=== PATIENT | female | born 1950 | race Caucasian/White ===

== ENCOUNTER 2022-12-09 12:55 | Inpatient (IN) ==
[2022-12-09] MEDS ORDERED: SODIUM CHLORIDE 0.9% 500 ML IV STA (13:58)
[2022-12-09] MEDS ORDERED: ONDANSETRON INJ 2 MG/ML 2 ML VIAL IV STA ×2 (13:58→14:22)
[2022-12-09] MEDS ORDERED: MoRPHine SULFATE 4 MG/ML 1 ML CARP\\VIAL IV STA (14:22)
[2022-12-09 14:24] LABS: Basophils # (auto) 0.02 K/uL (0-0.2); Basophils % (auto) 0.2 %; Hematocrit (blood only) 50.8 % (37.0-47.0); Hemoglobin 16.6 g/dl (12.0-16.0); Immature Granulocytes # (auto) 0.04 K/uL (0.01-0.20); Immature Granulocytes % (auto) 0.4 %; Lymphocytes # (auto) 0.86 K/uL (1.2-3.4); Lymphocytes % (auto) 7.8 %; Mean Corpuscular Hemoglobin 29.9 pg (25.0-34.0); Mean Corpuscular Hgb Conc 32.7 g/dL (32.0-36.0); Mean Corpuscular Volume 91.5 fL (80.0-100.0); Mean Platelet Volume 9.9 fL (9.4-12.4); Monocytes # (auto) 0.37 K/uL (0.11-0.59); Monocytes % (auto) 3.3 %; Neutrophils # (auto) 9.79 K/uL (1.40-6.50); Neutrophils % (auto) 88.3 %; Platelet Count 344 K/uL (130-400); RDW Coefficient of Variation 13.2 % (11.5-14.5); RDW Standard Deviation 44.7 fL (36.4-46.3); Red Blood Count 5.55 M/uL (4.20-5.40); White Blood Count 11.08 K/ul (4.8-10.8)
[2022-12-09 14:25] LABS: BUN Creatinine Ratio 16.9 (10-20); Calcium 8.8 mg/dl (8.5-10.1); Creatinine Clr Calc Pharmacy 64.5 ml/min; Est GFR (African American) 74.5 ml/min; Est GFR (Non-African American) 64.3 ml/min; Potassium 4.1 mmol/L (3.5-5.1)
[2022-12-09] MEDS ORDERED: OPTIRAY 350 100ml IV ONE (15:12)
[2022-12-09 15:18] LABS: Albumin Globulin Ratio 0.9 (0.9-2); Albumin Level 3.9 gm/dl (3.4-5.0); Bilirubin,Total 6.2 mg/dl (0.2-1.0); Globulin 4.4 gm/dl (2.5-4.0); Total Protein 8.3 gm/dl (6.0-8.3)
--- NOTE | 2022-12-09 15:53 | CT Scan Report ---
CT abd pelvis IV con only, CT lumbar spine w con CLINICAL HISTORY: Abd/back pain TECHNIQUE: Helical axial images of the abdomen and pelvis were obtained and displayed. Automated dose lowering techniques and/or adjustment according to patient size were utilized for this exam. Dedicat ed images of the lumbar spine were obtained. This exam was performed with intravenous contrast. CT DOSE: 735.87 mGy.cm COMPARISON: None available at the time of this dictation. FINDINGS: Lower chest: Bibasilar atelectasis versus scarring is seen. Liver: Unremarkable. No focal lesions are seen. Gallbladder and biliary tree: The gallbladder is distended. Gallbladder wall measures up to 3 mm. No intra- or extrahepatic biliary ductal dilation. Pancreas: Prominent peripancreatic stranding is seen. No abnormal enhancement is seen to suggest necr osis. No discrete fluid collections are seen. Spleen: Unremarkable. Adrenals: Unremarkable. Kidneys and ureters: Lobular appearance of the kidneys. Nonobstructive stones are seen bilaterally. S ubcentimeter hypodensities in the kidneys may represent cysts but are too small to characterize. Bladder: Unremarkable. Reproductive organs: Unremarkable. Bowel: The appendix is normal. A hiatal hernia is seen. Lymph nodes Retroperitoneal: Unremarkable. Pelvic: Unremarkable. Mesenteric: Unremarkable. Peritoneum: Prominent fat stranding and a small amount of peritoneal fluid is seen in the upper abdom en. Vessels: Atherosclerotic calcifications are seen. Abdominal wall: Unremarkable. Bones: Mild degenerative changes without evidence of acute fracture. IMPRESSION: 1. Peripancreatic fat stranding is seen concerning for pancreatitis. 2. Prominence of the gallbladder may be reactive or less likely may represent acute cholecystitis. 3. Nonobstructive nephrolithiasis. ACT 112: Negative or not required by law. Electronically signed by: Yury Zamora M.D. 12/09/2022 3:50 PM
[2022-12-09] MEDS ORDERED: HYDROmorphone INJ 0.5 MG/0.5 ML SYR IV STA ×2 (16:06→18:30)
--- NOTE | 2022-12-09 16:12 | Emergency Department Note ---
ED Provider Note History of Present Illness Chief Complaint: GI Assessment Stated Complaint: abdomen pain; low back pain Time Seen by Provider: 12/09/22 14:10 72-year-old female who presents to the emergency department with complaint of a bdomen and lower back pain. The patient reports that she developed the symptoms, along with nausea and vomiting yesterday morning. She awoke this morning with loose stools as well. She reports the pain is progressively worsening, And is now constant in nature. She denies any fever, chills or di aphoresis. She denies any prior GI history. Patient also denies any chest pain or shortness of breath. She does have some discomfort with deep breathing. The patient currently rates her discomfort a 7 out of 10. Home Medications Medication Instructions Recorded Confirmed Type losartan 50 mg tablet 50 mg PO DAILY 12/09/22 12/09/22 History methimazole 5 mg tablet 5 mg PO DAILY 12/09/22 12/09/22 History sertraline 50 mg tablet 50 mg PO DAILY 12/09/22 12/09/22 History solifenacin 10 mg tablet 10 mg PO DAILY 12/09/22 12/09/22 History Allergies Allergy/AdvReac Type Severity Reaction Status Date / Time No Known Allergies Allergy Unverified 04/26/12 15:09 Past Med/Surg History Medical History Depression History of claustrophobia Hypertension Multiple sclerosis Surgical History No significant past surgical history Social History Smoking Status: Former smoker Preferred Language: Honduran marital status: Single current occupational status: retired Feels Safe at Home: Yes Physical Exam Vital Signs Vital Signs - 24 hr 12/09/22 13:14 12/09/22 13:22 12/09/22 13:30 Temperature 36.6 C Temperature Source Oral Pulse Rate 108 H 106 H Respiratory Rate 18 Respiratory Effort / Characteristics Non-Labored Spontaneous Respiratory Depth Normal Respiratory Pattern Regular Blood Pressure 177/101 H 169/104 H Blood Pressure Mean 126 125 Pulse Oximetry 95 Oxygen Delivery Method Room Air Sepsis Recent Fever Within 48 Hours No Sepsis New/Unexplained Change in Mental Status No Sepsis Action Taken by Nursing No Action Required 12/09/22 14:00 12/09/22 14:42 12/09/22 15:00 Temperature Temperature Source Pulse Rate 110 H Respiratory Rate 19 Respiratory Effort / Characteristics Respiratory Depth Respiratory Pattern Blood Pressure 208/154 H 176/113 H 207/116 H Blood Pressure Mean 172 134 146 Pulse Oximetry Oxygen Delivery Method Sepsis Recent Fever Within 48 Hours Sepsis New/Unexplained Change in Mental Status Sepsis Action Taken by Nursing 12/09/22 15:23 12/09/22 16:30 12/09/22 19:54 Temperature Temperature Source Pulse Rate 108 H 110 H 109 H Respiratory Rate 23 20 Respiratory Effort / Characteristics Respiratory Depth Respiratory Pattern Blood Pressure 185/93 H 202/110 H Blood Pressure Mean 123 140 Pulse Oximetry 95 93 Oxygen Delivery Method Room Air Room Air Sepsis Recent Fever Within 48 Hours Sepsis New/Unexplained Change in Mental Status Sepsis Action Taken by Nursing CONSTITUTIONAL: Healthy and well nourished. Patient appears in moderate discomfort. HEENT: No scleral icterus or conjunctival injection/pallor. NECK: Full active range of motion without discomfort. LYMPHATICS: No cervical chain adenopathy. RESPIRATORY: Clear to auscultation bilaterally with no wheezing, crackles, rhonchi or stridor. CARDIOVASCULAR: Regular rate and rhythm with no murmurs, rubs or gallops. GASTROINTESTINAL: Bowel sounds present in all quadrants. Examination shows diffuse abdominal tenderness to palpation with a mildly positive Waterman sign. Negative CVA tenderness. Negative McBurney's point tenderness or Rovsing sign. No abdominal rigidity, guarding or rebound. MUSCULOSKELETAL: Full range of motion of all major joints without discomfort. INTEGUMENTARY: No rash or other significant dermatologic conditions noted. HEMATOLOGIC: No ecchymosis or petechiae. PSYCHIATRIC: Positive affect. NEUROLOGIC: No focal neurologic deficits noted. Course Course Patient history and physical exam were performed. Nurses notes were reviewed. Vital signs were reviewed, showing an elevated blood pressure. IV access was established, and labs were drawn. The patient was initially administered IV morphine and Zofran, and hydrated with a liter of normal saline. Review of labs shows a mild leukocytosis. CMP shows elevated total bilirubin, LFTs, alkaline phosphatase and lipase. Random glucose was also elevated at 257. CT with IV contrast of the abdomen and pelvis, as well as the lumbar spine, showed peripancreatic stranding, consistent with pancreatitis. There also appears to be some prominence of the gallbladder with gallbladder wall thickening, and no obvious, bile duct dilatation. Findings were discussed with the patient and family, as well as Dr. Rico, ED attending physician. Dr. Rico requested administration of IV Zosyn until exact etiology of the patient's condition is determined. An order was placed for the IV Zosyn. I then discussed the case further with the [facility] hospitalist, who requested that I also contacted and discussed the case with general surgery on-call. I then called and spoke with Dr. Whittaker, general surgeon, who did evaluate the patient and does not feel that urgent cholecystectomy is needed at this time, and will follow the patient. He suspects that gastroenterology consultation and ERCP would be warranted. [facility] Whittaker's recommendations, and indicated that they would contact gastroenterology for further consultation. [facility], I was advised by nursing staff that the patient had a brief episode of what appeared to be t rigeminy with pauses that only lasted for a few seconds. I was in another room performing a procedure, and after completion, did have our monitor motor lodge clerk pull up her ECG during that time period. No trigeminy was noted, but did have a heart rate of up to 166 bpm. An ECG was performed, showing a sinus tachycardia of 109 bpm without any other concerning findings. I did order a troponin, and contact ed the hospitalist regarding this episode. They will follow serial ECGs and troponins. I did review her initial troponin level as well, and it was normal. The patient did not have any worsening pain prior to transfer to her admission bed. Administered Medications Discontinued Medications Hydromorphone HCl (Hydromorphone Inj 0.5 Mg/0.5 Ml Syr) 0.5 mg IV NOW STA Stop: 12/09/22 16:07 Last Admin: 12/09/22 16:24 Dose: 0.5 mg Documented By: SEBASTIEN Hydromorphone HCl (Hydromorphone Inj 0.5 Mg/0.5 Ml Syr) 0.5 mg IV NOW STA Stop: 12/09/22 18:31 Last Admin: 12/09/22 18:35 Dose: 0.5 mg Documented By: PATTERN GRADER SUPERVISOR Sodium Chloride (Nss) 500 mls @ 999 mls/hr IV .Q31M STA Stop: 12/09/22 14:28 Last Infusion: 12/09/22 16:01 Dose: 0 mls/hr Documented By: Admin: 12/09/22 14:31 Dose: 999 mls/hr Documented By: BETHANY Piperacillin Sod/Tazobactam Sod (Zosyn) 4.5 gm in 120 mls @ 240 mls/hr IV NOW ONE Stop: 12/09/22 18:48 Last Infusion: 12/09/22 19:30 Dose: 0 mls/hr Documented By: Admin: 12/09/22 18:35 Dose: 240 mls/hr Documented By: GEORGE Ioversol (Optiray 350 100ml) 83 ml IV ONCE ONE Stop: 12/09/22 15:13 Last Admin: 12/09/22 15:15 Dose: 83 ml Documented By: BRYAN Morphine Sulfate (Morphine Sulfate 4 Mg/Ml 1 Ml Carp\Vial) 4 mg IV NOW STA Stop: 12/09/22 14:23 Last Admin: 12/09/22 14:29 Dose: 4 mg Documented By: BETHANY Ondansetron HCl (Ondansetron Inj 2 Mg/Ml 2 Ml Vial) 4 mg IV NOW STA Stop: 12/09/22 13:59 Last Admin: 12/09/22 14:29 Dose: Not Given Documented By: BETHANY Ondansetron HCl (Ondansetron Inj 2 Mg/Ml 2 Ml Vial) 4 mg IV NOW STA Stop: 12/09/22 14:23 Last Admin: 12/09/22 14:29 Dose: 4 mg Documented By: BETHANY Medical Decision Making Medical Records Attestation: I reviewed the patient's medical records. Home Medications was personally reviewed by me Laboratory Data Attestation: I reviewed the patient's lab results. 12/09/22 13:15 12/09/22 13:15 Lab Results 12/09/22 12/09/22 12/09/22 Range/Units 13:15 13:15 16:30 WBC 11.08 H (4.8-10.8) K/ul RBC 5.55 H (4.20-5.40) M/uL Hgb 16.6 H (12.0-16.0) g/dl Hct 50.8 H (37.0-47.0) % MCV 91.5 (80.0-100.0) fL MCH 29.9 (25.0-34.0) pg MCHC 32.7 (32.0-36.0) g/dL RDW Std Deviation 44.7 (36.4-46.3) fL RDW Coeff of Mandy 13.2 (11.5-14.5) % Plt Count 344 (130-400) K/uL MPV 9.9 (9.4-12.4) fL Immature Gran % (Auto) 0.4 % Neut % (Auto) 88.3 % Lymph % (Auto) 7.8 % [place] % (Auto) 3.3 % Eos % (Auto) 0.0 % Baso % (Auto) 0.2 % Neut # (Auto) 9.79 H (1.40-6.50) K/uL Lymph # (Auto) 0.86 L (1.2-3.4) K/uL [place] # (Auto) 0.37 (0.11-0.59) K/uL Eos # (Auto) 0.00 (0-0.50) K/uL Baso # (Auto) 0.02 (0-0.2) K/uL Immature Gran # (Auto) 0.04 (0.01-0.20) K/uL Sodium 137 (136-145) mmol/L Potassium 4.1 (3.5-5.1) mmol/L Chloride 102 (98-107) mmol/L Carbon Dioxide 24 (21-32) mmol/L Anion Gap 11 (3-11) BUN 15 (6-23) mg/dl Creatinine 0.89 (0.6-1.2) mg/dl Est Cr Clr Drug Dosing 64.5 ml/min Est GFR ( Amer) 74.5 ml/min Est GFR (Non-Af Amer) 64.3 ml/min BUN/Creatinine Ratio 16.9 (10-20) Glucose 257 H (70-99(Fasting)) mg/dl Calcium 8.8 (8.5-10.1) mg/dl Total Bilirubin 6.2 H (0.2-1.0) mg/dl AST 313 H (13-39) U/L ALT 536 H (7-52) U/L Alkaline Phosphatase 231 H (34-104) U/L Troponin I High Sens 12.4 (0-14) pg/ml Total Protein 8.3 (6.0-8.3) gm/dl Albumin 3.9 (3.4-5.0) gm/dl Globulin 4.4 H (2.5-4.0) gm/dl Albumin/Globulin Ratio 0.9 (0.9-2) Lipase 4003 H (11-82) U/L SARS-CoV-2, RNA, NAAT NEGATIVE (NEGATIVE) Imaging Data Attestation: I personally reviewed and interpreted this imaging study as follows: My Impression: My interpretation of a a CT with IV contrast of the abdomen and pelvis shows peripancreatic stranding, consistent with pancreatitis. Patient also does have prominence of the gallbladder without obvious, bile duct dilatation. Radiologist does measure gallbladder wall up to 3 mm in size. I do not see evidence for appendicitis, diverticulitis, bowel obstruction or free air. My interpretation of a CT with IV contrast of the lumbar spine does not show any obvious fractures or subluxations. Radiologist reports were also reviewed with concurrence. Radiologist's Impression: Abdomen/Pelvis CT 12/09/22 14:22 CT abd pelvis IV con only, CT lumbar spine w con CLINICAL HISTORY: Abd/back pain TECHNIQUE: Helical axial images of the abdomen and pelvis were obtained and displayed. Automated dose lowering techniques and/or adjustment according to patient size were utilized for this exam. Dedicated images of the lumbar spine were obtained. This exam was performed with intravenous contrast. CT DOSE: 735.87 mGy.cm COMPARISON: None available at the time of this dictation. FINDINGS: Lower chest: Bibasilar atelectasis versus scarring is seen. Liver: Unremarkable. No focal lesions are seen. Gallbladder and biliary tree: The gallbladder is distended. Gallbladder wall measures up to 3 mm. No intra- or extrahepatic biliary ductal dilation. Pancreas: Prominent peripancreatic stranding is seen. No abnormal enhancement is seen to suggest necrosis. No discrete fluid collections are seen. Spleen: Unremarkable. Adrenals: Unremarkable. Kidneys and ureters: Lobular appearance of the kidneys. Nonobstructive stones are seen bilaterally. Subcentimeter hypodensities in the kidneys may represent cysts but are too small to characterize. Bladder: Unremarkable. Reproductive organs: Unremarkable. Bowel: The appendix is normal. A hiatal hernia is seen. Lymph nodes Retroperitoneal: Unremarkable. Pelvic: Unremarkable. Mesenteric: Unremarkable. Peritoneum: Prominent fat stranding and a small amount of peritoneal fluid is seen in the upper abdomen. Vessels: Atherosclerotic calcifications are seen. Abdominal wall: Unremarkable. Bones: Mild degenerative changes without evidence of acute fracture. IMPRESSION: 1. Peripancreatic fat stranding is seen concerning for pancreatitis. 2. Prominence of the gallbladder may be reactive or less likely may represent acute cholecystitis. 3. Nonobstructive nephrolithiasis. ACT 112: Negative or not required by law. Electronically signed by: Yury Zamora M.D. 12/09/2022 3:[address] 12/09/22 14:42 CT abd pelvis IV con only, CT lumbar spine w con CLINICAL HISTORY: Abd/back pain TECHNIQUE: Helical axial images of the abdomen and pelvis were obtained and displayed. Automated dose lowering techniques and/or adjustment according to patient size were utilized for this exam. Dedicated images of the lumbar spine were obtained. This exam was performed with intravenous contrast. CT DOSE: 735.87 mGy.cm COMPARISON: None available at the time of this dictation. FINDINGS: Lower chest: Bibasilar atelectasis versus scarring is seen. Liver: Unremarkable. No focal lesions are seen. Gallbladder and biliary tree: The gallbladder is distended. Gallbladder wall measures up to 3 mm. No intra- or extrahepatic biliary ductal dilation. Pancreas: Prominent peripancreatic stranding is seen. No abnormal enhancement is seen to suggest necrosis. No discrete fluid collections are seen. Spleen: Unremarkable. Adrenals: Unremarkable. Kidneys and ureters: Lobular appearance of the kidneys. Nonobstructive stones are seen bilaterally. Subcentimeter hypodensities in the kidneys may represent cysts but are too small to characterize. Bladder: Unremarkable. Reproductive organs: Unremarkable. Bowel: The appendix is normal. A hiatal hernia is seen. Lymph nodes Retroperitoneal: Unremarkable. Pelvic: Unremarkable. Mesenteric: Unremarkable. Peritoneum: Prominent fat stranding and a small amount of peritoneal fluid is seen in the upper abdomen. Vessels: Atherosclerotic calcifications are seen. Abdominal wall: Unremarkable. Bones: Mild degenerative changes without evidence of acute fracture. IMPRESSION: 1. Peripancreatic fat stranding is seen concerning for pancreatitis. 2. Prominence of the gallbladder may be reactive or less likely may represent acute cholecystitis. 3. Nonobstructive nephrolithiasis. ACT 112: Negative or not required by law. Electronically signed by: Yury Zamora M.D. 12/09/2022 3:50 PM ECG Data Attestation: I personally reviewed and interpreted this ECG as follows: Indication: + abdominal pain and + chest pain Rate (beats per minute): 109 Rhythm: + sinus tachycardia ECG Intervals/blocks: + Normal QRS, + Normal QT and + Normal KS ECG ST segments: + Normal ST segments Comparison ECG Date: from (04/05/2022) Change: the following changes noted (PVCs no longer present from prior ECG) MDM Narrative Cardiac monitoring: An order was placed for continuous cardiac monitoring. The monitor shows a rate of 109 bpm with a normal sinus rhythm. monitoring coordinator his tory was reviewed throughout the evaluation, and no dysrhythmias were noted. See ED course for further details of today's visit. The patient presents the emergency department with complaint of abdominal pain, nausea, vomiting and loose stools for the past [address] examination today does show evidence for pancreatitis. She also has gallbladder prominence without any pericholecystic stranding. Laboratory studies does show elevated total bilirubin, LFTs, alkaline phosphatase and lipase. Although I do feel that the patient's major condition is pancreatitis, I am concerned for possible common bile duct stone, and will likely require ERCP for further evaluation. The patient is afebrile and does not have any leukocytosis or abnormal laboratory studies to suggest sepsis. Patient did have a cardiac dysrhythmia with some chest discomfort that initially is not suggestive of infarct, ischemia or other acute cardiac event. Serial ECGs and isoenzymes will be followed. The patient was also evaluated by general surgery who does not feel that emergent laparoscopic cholecystectomy is warranted. GI consultation will also be performed for probable ERCP procedure. Impression Acute pancreatitis, Generalized abdominal pain, Nausea and vomiting, Multiple sclerosis Discharge Plan Visit Data Chief Complaint: GI Assessment Stated Complaint: abdomen pain; low back pain ED Provider: Aram Rico ED Midlevel Provider: Guilherme Lopez Discharge Problem: Acute pancreatitis, Generalized abdominal pain, Nausea and vomiting, Multiple sclerosis Forms Stand Alone Forms: [employer] Prescriptions Prescriptions: No Action sertraline 50 mg tablet 50 mg PO DAILY losartan 50 mg tablet 50 mg PO DAILY methimazole 5 mg tablet 5 mg PO DAILY solifenacin 10 mg tablet 10 mg PO DAILY Referrals Referrals: Valdez Whitlock MD [Primary Care Provider] -
--- NOTE | 2022-12-09 18:16 | History & Physical Report ---
Date of Service December 09, 2022 Assessment & Plan (1) Acute pancreatitis: (2) Nausea and vomiting: Plan: Present on admission with abdominal pain that radiating to back associating with vomiting and nausea CT abd/pel showed peripancreatic fat stranding is seen concerning for pancreatitis. Prominence of the gallbladder may be reactive or less likely may represent acute cholecystitis. Lipase above 400's on admission Continue supportive care with IVF and pain management Will keep NPO for bowel rest Continue pain control Will consult gastro Transaminitis Elevated LFT with AST 313 and ALT 536 Possible related to gallstone related pancreatitis Will get an abdominal U/S Pt said that she is claustrophobic and she will not be able to go for MRCP Will consult GI for eval for ERCP Acute Cholecystitis CT abd/pelvis showed prominence of the gallbladder may be reactive or less likely may represent acute cholecystitis. received IV Zosyn in the ER, Will continue IV Zosyn Will get a Liver U/S Surgery on board Will consider laparoscopic cholecystectomy HTN She did not take her BP med today Will continue Losartan Will add clonidine PRN for elevate BP Continue monitor BP Hyperthyroidism Continue Methimazole Anxiety Continue Sertraline Code status full code DVT px on SCD in case pt will need surgical intervention A total of 70 minutes was spent with greater than 50% of that time personally viewing all current laboratory work and diagnostic imaging studies obtained in the ED. Additionally, I was able to view the patients past medication reconciliation and history with direct visualization in the patients chart.I discussed with daughter at bedside. Included in the time above, a portion of that time was spent assessing the patient while discussing and collaborating with specialists, if necessary, and making medical decision making on treatment plan. History of Present Illness Chief Complaint: Abdominal pain, Back pain Nausea and vomiting Primary Care Provider: Valdez Whitlock MD 72-year-old female with MPH of obesity, HTN, Anxiety presents to the emergency department with complaint of abdomen and lower back pain. Pt said that her symptoms started this morning associated with nausea and vomiting. She said that she had 2 episodes of vomiting mucus like. She said that she had loose morning stools as well. She said that her pain is mostly in her back with intensity 8 out 10. She denies any alcohol used or similar pain in the past. She denies any fever, chills, palpitation, SOB or diaphoresis. Allergies Allergy/AdvReac Type Severity Reaction Status Date / Time No Known Allergies Allergy Unverified 04/26/12 15:09 Home Medications Medication Instructions Recorded Confirmed Type losartan 50 mg tablet 50 mg PO DAILY 12/09/22 12/09/22 History methimazole 5 mg tablet 5 mg PO DAILY 12/09/22 12/09/22 History sertraline 50 mg tablet 50 mg PO DAILY 12/09/22 12/09/22 History solifenacin 10 mg tablet 10 mg PO DAILY 12/09/22 12/09/22 History Past Med/Surg History Medical History Depression History of claustrophobia Hypertension Multiple sclerosis Surgical History No significant past surgical history Social History Smoking Status: Former smoker Second Hand Exposure: No; Hx Alcohol Use: No Hx Substance Use: No Preferred Language: Spanish Communication Ability: Effective 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 Required: No Beliefs That Will Affect Care: None marital status: Single Current Living Situation: Significant Other current occupational status: retired Feels Safe at Home: Yes Assistive Devices: Glasses and Walker Review of Systems Review of Systems: General- No acute distress Head- atraumatic Eyes- PERRL, EOMI, ENT- oropharynx clear Neck- supple, no JVD Lungs- clear to auscultation Heart- regular rhythm; no murmur Abdomen- normal bowel sounds, soft, +tender Extremities- no calf tenderness Neuro- alert, oriented x 3; PERRL, EOMI; no facial palsy; no dysarthria Skin- warm & dry Results & Data Results & Data ([facility]) Vital Signs (Past 12 Hours) Vital Signs Temp Pulse Resp BP Pulse Ox O2 Del Method 12/09/22 16:30 110 H 20 202/110 H 93 Room Air 12/09/22 15:23 108 H 23 185/93 H 95 Room Air 12/09/22 15:00 110 H 19 207/116 H 12/09/22 14:42 176/113 H 12/09/22 14:00 208/154 H 12/09/22 13:30 169/104 H 12/09/22 13:22 36.6 C 106 H 18 177/101 H 95 Room Air 12/09/22 13:14 108 H Diagnostic Findings Laboratory Results WBC 11.08 K/ul (4.8-10.8) H 12/09/22 13:15 RBC 5.55 M/uL (4.20-5.40) H 12/09/22 13:15 Hgb 16.6 g/dl (12.0-16.0) H 12/09/22 13:15 Hct 50.8 % (37.0-47.0) H 12/09/22 13:15 MCV 91.5 fL (80.0-100.0) 12/09/22 13:15 MCH 29.9 pg (25.0-34.0) 12/09/22 13:15 MCHC 32.7 g/dL (32.0-36.0) 12/09/22 13:15 RDW Std Deviation 44.7 fL (36.4-46.3) 12/09/22 13:15 RDW Coeff of Mandy 13.2 % (11.5-14.5) 12/09/22 13:15 Plt Count 344 K/uL (130-400) 12/09/22 13:15 MPV 9.9 fL (9.4-12.4) 12/09/22 13:15 Immature Gran % (Auto) 0.4 % 12/09/22 13:15 Neut % (Auto) 88.3 % 12/09/22 13:15 Lymph % (Auto) 7.8 % 12/09/22 13:15 Tucker % (Auto) 3.3 % 12/09/22 13:15 Eos % (Auto) 0.0 % 12/09/22 13:15 Baso % (Auto) 0.2 % 12/09/22 13:15 Neut # (Auto) 9.79 K/uL (1.40-6.50) H 12/09/22 13:15 Lymph # (Auto) 0.86 K/uL (1.2-3.4) L 12/09/22 13:15 Tucker # (Auto) 0.37 K/uL (0.11-0.59) 12/09/22 13:15 Eos # (Auto) 0.00 K/uL (0-0.50) 12/09/22 13:15 Baso # (Auto) 0.02 K/uL (0-0.2) 12/09/22 13:15 Immature Gran # (Auto) 0.04 K/uL (0.01-0.20) 12/09/22 13:15 Sodium 137 mmol/L (136-145) 12/09/22 13:15 Potassium 4.1 mmol/L (3.5-5.1) 12/09/22 13:15 Chloride 102 mmol/L (98-107) 12/09/22 13:15 Carbon Dioxide 24 mmol/L (21-32) 12/09/22 13:15 Anion Gap 11 (3-11) 12/09/22 13:15 BUN 15 mg/dl (6-23) 12/09/22 13:15 Creatinine 0.89 mg/dl (0.6-1.2) 12/09/22 13:15 Est Cr Clr Drug Dosing 64.5 ml/min 12/09/22 13:15 Est GFR ( Amer) 74.5 ml/min 12/09/22 13:15 Est GFR (Non-Af Amer) 64.3 ml/min 12/09/22 13:15 BUN/Creatinine Ratio 16.9 (10-20) 12/09/22 13:15 Glucose 257 mg/dl (70-99(Fasting)) H 12/09/22 13:15 POC Glucose 206 mg/dl (70-99) H 12/09/22 21:46 Calcium 8.8 mg/dl (8.5-10.1) 12/09/22 13:15 Total Bilirubin 6.2 mg/dl (0.2-1.0) H 12/09/22 13:15 AST 313 U/L (13-39) H 12/09/22 13:15 ALT 536 U/L (7-52) H 12/09/22 13:15 Alkaline Phosphatase 231 U/L (34-104) H 12/09/22 13:15 Troponin I High Sens 12.4 pg/ml (0-14) 12/09/22 13:15 Total Protein 8.3 gm/dl (6.0-8.3) 12/09/22 13:15 Albumin 3.9 gm/dl (3.4-5.0) 12/09/22 13:15 Globulin 4.4 gm/dl (2.5-4.0) H 12/09/22 13:15 Albumin/Globulin Ratio 0.9 (0.9-2) 12/09/22 13:15 Lipase 4003 U/L (11-82) H 12/09/22 13:15 Urine Color Dark Yellow 12/09/22 20:32 Urine Appearance Clear (Clear) 12/09/22 20:32 Urine pH 5.0 (4.5-7.5) 12/09/22 20:32 Ur Specific Rose > 1.045 (1.000-1.030) H 12/09/22 20:32 Urine Protein Trace (Negative) H 12/09/22 20:32 Urine Glucose (UA) Trace (Negative) H 12/09/22 20:32 Urine Ketones 1+ (Negative) H 12/09/22 20:32 Urine Blood Negative (Negative) 12/09/22 20:32 Urine Nitrite Negative (Negative) 12/09/22 20:32 Urine Bilirubin 2+ (Negative) H 12/09/22 20:32 Urine Urobilinogen Negative (Negative) 12/09/22 20:32 Ur Leukocyte Esterase Negative (Negative) 12/09/22 20:32 Urine WBC (Auto) 1-5 /hpf (0-5) 12/09/22 20:32 Urine RBC (Auto) 0-4 /hpf (0-4) 12/09/22 20:32 U Hyaline Cast (Auto) 1-5 /lpf (0-5) 12/09/22 20:32 U Epithel Cells (Auto) 10-20 /lpf (0-5) H 12/09/22 20:32 Urine Bacteria (Auto) Negative (Negative) 12/09/22 20:32 SARS-CoV-2, RNA, NAAT NEGATIVE (NEGATIVE) 12/09/22 16:30 Impressions Abdomen/Pelvis CT 12/09/22 14:22 CT abd pelvis IV con only, CT lumbar spine w con CLINICAL HISTORY: Abd/back pain TECHNIQUE: Helical axial images of the abdomen and pelvis were obtained and displayed. Automated dose lowering techniques and/or adjustment according to patient size were utilized for this exam. Dedicated images of the lumbar spine were obtained. This exam was performed with intravenous contrast. CT DOSE: 735.87 mGy.cm COMPARISON: None available at the time of this dictation. FINDINGS: Lower chest: Bibasilar atelectasis versus scarring is seen. Liver: Unremarkable. No focal lesions are seen. Gallbladder and biliary tree: The gallbladder is distended. Gallbladder wall measures up to 3 mm. No intra- or extrahepatic biliary ductal dilation. Pancreas: Prominent peripancreatic stranding is seen. No abnormal enhancement is seen to suggest necrosis. No discrete fluid collections are seen. Spleen: Unremarkable. Adrenals: Unremarkable. Kidneys and ureters: Lobular appearance of the kidneys. Nonobstructive stones are seen bilaterally. Subcentimeter hypodensities in the kidneys may represent cysts but are too small to characterize. Bladder: Unremarkable. Reproductive organs: Unremarkable. Bowel: The appendix is normal. A hiatal hernia is seen. Lymph nodes Retroperitoneal: Unremarkable. Pelvic: Unremarkable. Mesenteric: Unremarkable. Peritoneum: Prominent fat stranding and a small amount of peritoneal fluid is seen in the upper abdomen. Vessels: Atherosclerotic calcifications are seen. Abdominal wall: Unremarkable. Bones: Mild degenerative changes without evidence of acute fracture. IMPRESSION: 1. Peripancreatic fat stranding is seen concerning for pancreatitis. 2. Prominence of the gallbladder may be reactive or less likely may represent acute cholecystitis. 3. Nonobstructive nephrolithiasis. ACT 112: Negative or not required by law. Electronically signed by: Yury Zamora M.D. 12/09/2022 3:[address] 12/09/22 14:42 CT abd pelvis IV con only, CT lumbar spine w con CLINICAL HISTORY: Abd/back pain TECHNIQUE: Helical axial images of the abdomen and pelvis were obtained and displayed. Automated dose lowering techniques and/or adjustment according to patient size were utilized for this exam. Dedicated images of the lumbar spine were obtained. This exam was performed with intravenous contrast. CT DOSE: 735.87 mGy.cm COMPARISON: None available at the time of this dictation. FINDINGS: Lower chest: Bibasilar atelectasis versus scarring is seen. Liver: Unremarkable. No focal lesions are seen. Gallbladder and biliary tree: The gallbladder is distended. Gallbladder wall measures up to 3 mm. No intra- or extrahepatic biliary ductal dilation. Pancreas: Prominent peripancreatic stranding is seen. No abnormal enhancement is seen to suggest necrosis. No discrete fluid collections are seen. Spleen: Unremarkable. Adrenals: Unremarkable. Kidneys and ureters: Lobular appearance of the kidneys. Nonobstructive stones are seen bilaterally. Subcentimeter hypodensities in the kidneys may represent cysts but are too small to characterize. Bladder: Unremarkable. Reproductive organs: Unremarkable. Bowel: The appendix is normal. A hiatal hernia is seen. Lymph nodes Retroperitoneal: Unremarkable. Pelvic: Unremarkable. Mesenteric: Unremarkable. Peritoneum: Prominent fat stranding and a small amount of peritoneal fluid is seen in the upper abdomen. Vessels: Atherosclerotic calcifications are seen. Abdominal wall: Unremarkable. Bones: Mild degenerative changes without evidence of acute fracture. IMPRESSION: 1. Peripancreatic fat stranding is seen concerning for pancreatitis. 2. Prominence of the gallbladder may be reactive or less likely may represent acute cholecystitis. 3. Nonobstructive nephrolithiasis. ACT 112: Negative or not required by law. Electronically signed by: Yury Zamora M.D. 12/09/2022 3:50 PM (1) Acute pancreatitis Acute pancreatitis complication: unspecified Pancreatitis type: unspecified pancreatitis type Qualified Code(s): K85.90 - Acute pancreatitis without nec rosis or infection, unspecified (2) Nausea and vomiting Vomiting type: unspecified Qualified Code(s): R11.2 - Nausea with vomiting, unspecified
--- NOTE | 2022-12-09 18:16 | Surgery Consultation ---
Date of Consultation December 09, 2022 Assessment & Plan (1) Pancreatitis: With patient's elevated liver function studies it may be gallstone related pancreatitis GI has been consulted and she will most likely require an ERCP We may consider laparoscopic cholecystectomy at some point I will follow for now History of Present Illness History of Present Illness 72-year-old female presenting the emergency room with abdominal pain and noted with very high liver function studies and evidence of pancreatitis She underwent CAT scan showing acute pancreatitis with a distended gallbladder Her total bilirubin is 6.2 with elevated AST ALT and a lipase of 4003 Allergies Allergy/AdvReac Type Severity Reaction Status Date / Time No Known Allergies Allergy Unverified 04/26/12 15:09 Home Medications Medication Instructions Recorded Confirmed Type losartan 50 mg tablet 50 mg PO DAILY 12/09/22 12/09/22 History methimazole 5 mg tablet 5 mg PO DAILY 12/09/22 12/09/22 History sertraline 50 mg tablet 50 mg PO DAILY 12/09/22 12/09/22 History solifenacin 10 mg tablet 10 mg PO DAILY 12/09/22 12/09/22 History Patient History Medical History (Updated 12/09/22 @ 18:15 by Mark Whittaker MD, FACS) Depression History of claustrophobia Hypertension Multiple sclerosis Surgical History (Updated 12/09/22 @ 16:10 by Guilherme Lopez) No significant past surgical history Social History (Updated 12/09/22 @ 16:11 by Guilherme Lopez) Smoking Status: Former smoker Preferred Language: Surinamese marital status: Single current occupational status: retired Feels Safe at Home: Yes Review of Systems Review of Systems: All systems reviewed & are unremarkable except as noted in HPI & below Physical Exam Physical Exam: Patient is in her ER bed in no distress but uncomfortable Constitutional: well developed and well nourished; no acute distress Eyes: sclerae not anicteric Respiratory: normal respiratory effort; no respiratory distress Cardiovascular: Rate/Rhythm: + tachycardic Gastrointestinal (Abdomen): Inspection/Auscultation: abdomen not distended Musculoskeletal: Head/Neck/Chest: head atraumatic Skin: no rashes, warm and dry Neurologic: awake Psychiatric: Orientation: alert Results & Data ([facility]) Vital Signs (Past 12 Hours) Vital Signs Temp Pulse Resp BP Pulse Ox O2 Del Method 12/09/22 16:30 110 H 20 202/110 H 93 Room Air 12/09/22 15:23 108 H 23 185/93 H 95 Room Air 12/09/22 15:00 110 H 19 207/116 H 12/09/22 14:42 176/113 H 12/09/22 14:00 208/154 H 12/09/22 13:30 169/104 H 12/09/22 13:22 36.6 C 106 H 18 177/101 H 95 Room Air 12/09/22 13:14 108 H Laboratory Results I reviewed her laboratories Diagnostic Findings I reviewed her CT films and report PG Care Time/CCT Total # of Minutes Spent Total Time Spent with Patient: Total time spent is greater than 50% in coordination of care (as documented) at patient's floor/unit and/or counseling patient: Coding Level of Care Code 87885 INT INP/OBS CARE 1/40MIN Diagnoses Pancreatitis K85.90
[2022-12-09] MEDS ORDERED: PIPERACILLIN/TAZOBACTAM 4.5 GM/120 ML BAG IV ONE (18:19)
[2022-12-09 19:13] LABS: Troponin I High Sensitivity 12.4 pg/ml (0-14)
[2022-12-09 21:02] LABS: Appearance Urine Clear (Clear); Bacteria Urine Automated Negative (Negative); Bilirubin Urine 2+ (Negative); Blood Urine Negative (Negative); Color Urine Dark Yellow; Glucose Urine UA Trace (Negative); Ketones Urine 1+ (Negative); Leukocyte Esterase Urine Negative (Negative); Nitrite Urine Negative (Negative); Protein Urine Trace (Negative); RBC Urine Automated 0-4 /hpf (0-4); Specific Gravity Urine > 1.045 (1.000-1.030); Urobilinogen Urine Negative (Negative)
[2022-12-09] MEDS ORDERED: LABETALOL HCL IV 5 MG/ML 20ML IV STA (21:21)
[2022-12-09] MEDS ORDERED: CARBOHYDRATES FOR HYPOGLYCEMIA PO PRN (21:21)
[2022-12-09] MEDS ORDERED: GLUCOSE 40% GEL 15 GM TUBE PO PRN (21:21)
[2022-12-09] MEDS ORDERED: GLUCAGON FOR INJ 1 MG VIAL SQ PRN (21:21)
[2022-12-09] MEDS ORDERED: GLUCOSE 10 TAB/TUBE PO PRN (21:21)
[2022-12-09] MEDS ORDERED: DEXTROSE 50% 50 ML SYRINGE IV PRN (21:21)
[2022-12-09] MEDS: MoRPHine SULFATE 2 MG/ML CARP IV PRN (21:33)
[2022-12-09] MEDS ORDERED: cloNIDine HCL 0.1 MG TAB PO PRN (21:50)
[2022-12-09] MEDS: LACTATED RINGER'S 1,000 ML IV SCH (22:26)
[2022-12-09] MEDS: INSULIN ASPART PER UNIT CHARGE SC SCH (22:29)
[2022-12-09] MEDS: HYDROmorphone INJ 0.5 MG/0.5 ML SYR IV PRN (23:48)
[2022-12-09] MEDS: PIPERACILLIN/TAZOBACTAM 4.5 GM in DEXTROSE 5% 100 ML IV SCH (23:48)
[2022-12-10] MEDS: MoRPHine SULFATE 2 MG/ML CARP IV PRN ×2 (04:57→20:37)
[2022-12-10] MEDS ORDERED: METOPROLOL TARTRATE 25 MG TAB PO STA (05:40)
--- NOTE | 2022-12-10 05:40 | Communication Note ---
Date of Service: December 10, 2022 Notified by RN of SVT 170s. SBP 110s Patient without chest pain/SOB as per RN Patient complaining of abdominal/back pain. AP PSVT PCU transfer to facilitate IV beta-jorge luis administration 1 dose Attempt vagal maneuvers May benefit from maintenance beta-jorge luis medication. Baseline TTE
[2022-12-10] MEDS ORDERED: METOPROLOL TARTRATE 1 MG/ML VIAL IV STA ×2 (05:44→21:37)
[2022-12-10] MEDS ORDERED: ALBUMIN 25% 100 mL 25 GM/100 ML VIAL IV SCH (06:00)
[2022-12-10 06:23] LABS: Hemoglobin 16.3 g/dl (12.0-16.0); Mean Corpuscular Hemoglobin 30.4 pg (25.0-34.0); Mean Corpuscular Volume 89.6 fL (80.0-100.0); Mean Platelet Volume 9.3 fL (9.4-12.4); Platelet Count 340 K/uL (130-400); RDW Coefficient of Variation 13.7 % (11.5-14.5); RDW Standard Deviation 44.4 fL (36.4-46.3); Red Blood Count 5.36 M/uL (4.20-5.40); White Blood Count 32.85 K/ul (4.8-10.8)
[2022-12-10] MEDS: LACTATED RINGER'S 1,000 ML IV SCH (06:24)
[2022-12-10] MEDS: INSULIN ASPART PER UNIT CHARGE SC SCH ×4 (06:39→20:40)
--- NOTE | 2022-12-10 07:21 | Surgery Progress Note ---
Date of Service December 10, 2022 Assessment & Plan (1) Acute pancreatitis: Plan: Ultrasound shows gallbladder with sludge No overt wall thickening Likely sludge in her common bile duct Continue supportive care-we will see what GI plan is and try to coordinate Laparoscopic cholecystectomy at same time Admission and Anticipated Discharge Date Admission Date: December 09, 2022 Subjective Patient awake and alert Now in PCU for SVT Elevated white blood cell count Review of Systems 2 Review of Systems: All systems reviewed & are unremarkable except as noted in HPI & below Physical Exam Physical Exam: Patient is in her bed in no distress but uncomfortable\ Awake and alert Constitutional: well developed and well nourished; no acute distress Eyes: sclerae not anicteric Respiratory: normal respiratory effort; no respiratory distress Cardiovascular: Rate/Rhythm: + tachycardic Gastrointestinal (Abdomen): Inspection/Auscultation: abdomen not distended Musculoskeletal: Head/Neck/Chest: head atraumatic Skin: no rashes, warm and dry Neurologic: awake Psychiatric: Orientation: alert Results & Data ([facility]) Vital Signs (Past 12 Hours) Vital Signs Temp Pulse Pulse Resp BP BP Pulse Ox 12/10/22 06:20 94 12/10/22 06:18 36.5 C 84 18 106/72 90 12/10/22 05:56 119 H 115/74 12/10/22 05:51 36.6 C 101 H 18 115/74 88 L 12/10/22 05:00 178 H 12/10/22 05:05 175 H 12/10/22 04:00 36.6 C 115 H 20 111/73 90 12/09/22 22:00 36.3 C L 120 H 16 161/102 H 93 12/10/22 00:57 112 H 12/10/22 00:55 118 H 12/09/22 22:38 116 H 14 138/86 93 12/09/22 20:30 114 H 18 12/09/22 20:30 160/93 H 12/09/22 20:20 115 H 17 94 12/09/22 20:10 115 H 21 94 12/09/22 20:10 153/92 H 12/09/22 20:00 113 H 17 93 12/09/22 19:50 113 H 19 94 12/09/22 19:40 110 H 16 92 12/09/22 19:31 109 H 19 93 12/09/22 19:10 109 H 19 93 12/09/22 19:00 112 H 20 93 12/09/22 18:50 112 H 17 94 12/09/22 18:40 110 H 20 94 12/09/22 18:30 113 H 21 93 12/09/22 18:20 114 H 25 H 93 12/09/22 19:54 109 H O2 Del Method O2 Flow Rate 12/10/22 06:20 Nasal Cannula 2 12/10/22 06:18 Room Air 12/10/22 05:56 12/10/22 05:51 Room Air 12/10/22 05:00 12/10/22 05:05 12/10/22 04:00 Room Air 12/09/22 22:00 Room Air 12/10/22 00:57 12/10/22 00:55 12/09/22 22:38 Room Air 12/09/22 20:30 12/09/22 20:30 12/09/22 20:20 12/09/22 20:10 12/09/22 20:10 12/09/22 20:00 12/09/22 19:50 12/09/22 19:40 12/09/22 19:31 12/09/22 19:10 12/09/22 19:00 12/09/22 18:50 12/09/22 18:40 12/09/22 18:30 12/09/22 18:20 12/09/22 19:54 PG Care Time/CCT Total # of Minutes Spent Total Time Spent with Patient: Total time spent is greater than 50% in coordination of care (as documented) at patient's floor/unit and/or counseling patient: Coding Level of Care Code 27748 SUB INP/OBS CARE 10/25MIN Diagnoses Acute pancreatitis K85.90 Acute pancreatitis complication: unspecified Pancreatitis type: unspecified pancreatitis type (1) Acute pancreatitis Acute pancreatitis complication: unspecified Pancreatitis type: unspecified pancreatitis type Qualified Code(s): K85.90 - Acute pancreatitis without necrosis or infection, unspecified
[2022-12-10] MEDS: HYDROmorphone INJ 0.5 MG/0.5 ML SYR IV PRN (07:56)
[2022-12-10] MEDS: ONDANSETRON INJ 2 MG/ML 2 ML VIAL IV PRN (07:56)
[2022-12-10] MEDS: LOSARTAN POTASSIUM 50 MG TAB PO SCH (08:01)
[2022-12-10] MEDS: SERTRALINE HCL 50 MG TABLET PO SCH (08:02)
[2022-12-10] MEDS: methIMAzole 5 MG TABLET PO SCH (08:02)
--- NOTE | 2022-12-10 08:06 | XRay Report ---
SINGLE VIEW CHEST CLINICAL HISTORY: Tachycardia FINDINGS: An AP, portable, upright chest radiograph is compared to study dated 04/05/2022. Correlation is made with abdominal CT dated 12/09/2022. The cardiomediastinal silhouette is unremarkable noting at herosclerotic calcification of the thoracic aorta. There are low lung volumes. Consolidation is seen at the left lung base. No large pleural effusion or pneumothorax is seen. The skeletal structures are osteopenic. The bony thorax is grossly intact. IMPRESSION: 1. There are low lung volumes with bibasilar atelectasis. 2. Consolidation at the left lung base could represent atelectasis versus pneumonia/aspiration pneumo nitis. Clinical correlation will be required. ACT 112: Negative or not required by law. Electronically signed by: Chidi Garay M.D. 12/10/2022 8:04 AM
[2022-12-10] MEDS ORDERED: MAGNESIUM SULFATE / D5W 1 GM/100 ML BAG IV ONE ×2 (08:07→21:35)
--- NOTE | 2022-12-10 08:14 | Ultrasound Report ---
ULTRASOUND RIGHT UPPER QUADRANT ABDOMEN CLINICAL HISTORY: Elevated hepatic transaminases. COMPARISON STUDY: Abdominal CT dated 12/09/2022. TECHNIQUE: Real-time, grayscale, and color flow sonography of the right upper quadrant of the abdomen was performed. Images are reviewed in the transverse and longitudinal planes. FINDINGS: Liver: The liver is normal in size and demonstrates heterogeneously increased echotexture indicating steatosis. There is no intrahepatic biliary ductal dilatation. The main portal vein is patent. Gallbladder: The gallbladder is distended and filled with stones/sludge. The gallbladder wall appears mildly thickened. Trace pericholecystic fluid is noted. A sonographic Waterman's sign is reportedly ab sent. The common bile duct measures up to 0.5 cm in diameter. Pancreas: Not visualized due to overlying bowel gas. Right kidney: Survey images of the right kidney demonstrate cortical atrophy. Echotexture there is no rmal. There is no hydronephrosis. Ascites: There is trace perihepatic ascites. IMPRESSION: 1. The gallbladder is distended and full of stones/sludge as detailed above. Findings are suspicious for acute cholecystitis. 2. The pancreas was not well visualized by ultrasound. CT findings remain consistent with pancreatiti s. Correlate with clinical and laboratory findings. 3. Hepatic steatosis. 4. Trace perihepatic ascites. ACT 112: Negative or not required by law. Electronically signed by: Chidi Garay M.D. 12/10/2022 8:11 AM
[2022-12-10 08:22] LABS: Albumin Globulin Ratio 0.9 (0.9-2); Albumin Level 3.3 gm/dl (3.4-5.0); BUN Creatinine Ratio 19.5 (10-20); Bilirubin,Total 6.3 mg/dl (0.2-1.0); Calcium 7.6 mg/dl (8.5-10.1); Creatinine Clr Calc Pharmacy 64.8 ml/min; Est GFR (African American) 76.6 ml/min; Est GFR (Non-African American) 66.1 ml/min; Globulin 3.6 gm/dl (2.5-4.0); Potassium 3.8 mmol/L (3.5-5.1); Total Protein 6.9 gm/dl (6.0-8.3)
[2022-12-10] MEDS ORDERED: LACTATED RINGER'S 1,000 ML IV SCH ×2 (08:30→12:45)
[2022-12-10] MEDS ORDERED: ROCURONIUM BROMIDE 10 MG/ML 5 ML VIAL IV ONE (08:54)
[2022-12-10] MEDS ORDERED: ONDANSETRON INJ 2 MG/ML 2 ML VIAL ONE (08:54)
[2022-12-10] MEDS ORDERED: fentaNYL citrate PF 100 MCG/2 ML VIAL ONE ×3 (08:54→12:58)
[2022-12-10] MEDS ORDERED: DEXAMETHASONE SOD INJ 4 MG/ML VIAL ONE (08:54)
[2022-12-10] MEDS ORDERED: PROPOFOL IV EMULSION 10 MG/ML 20 ML VIAL IV ONE (08:54)
[2022-12-10] MEDS ORDERED: SUGAMMADEX SODIUM 200 MG/2 ML VIAL IV ONE (08:55)
[2022-12-10] MEDS ORDERED: MIDAZOLAM HCL 1 MG/ML 2ML VIAL ONE (08:55)
--- NOTE | 2022-12-10 08:57 | Gastrointestinal Consultation ---
Date of Consultation December 10, 2022 Assessment & Plan (1) Acute pancreatitis: She has acute pancreatitis with lab findings consistent with cholangitis. Case discussed with Dr. Mcneill. He will do ERCP later today in conjunction with general surgery. I have discussed procedure and risks for ERCP with her. She agrees. History of Present Illness Reason for Consultation: Pancreatitis Attending Physician: Nitza Goldsmith MD History of Present Illness 72 year old female admitted with abdominal pain, pancreatitis by CT and elevated transaminases. WBC jumped from 11K to 32K and transaminases have increased as well. By history she has only had pain for two to three days. She has not had pain like this before. Allergies Allergy/AdvReac Type Severity Reaction Status Date / Time No Known Allergies Allergy Unverified 04/26/12 15:09 Home Medications Medication Instructions Recorded Confirmed Type losartan 50 mg tablet 50 mg PO DAILY 12/09/22 12/09/22 History methimazole 5 mg tablet 5 mg PO DAILY 12/09/22 12/09/22 History sertraline 50 mg tablet 50 mg PO DAILY 12/09/22 12/09/22 History solifenacin 10 mg tablet 10 mg PO DAILY 12/09/22 12/09/22 History Patient History Medical History Depression History of claustrophobia Hypertension Multiple sclerosis Surgical History No significant past surgical history Social History Smoking Status: Former smoker Second Hand Exposure: No; Hx Alcohol Use: No Hx Substance Use: No Preferred Language: Yoruba Communication Ability: Effective English Adjunct Faculty Required: No Beliefs That Will Affect Care: None marital status: Single Current Living Situation: Significant Other current occupational status: retired Feels Safe at Home: Yes Assistive Devices: Glasses and Walker Review of Systems Review of Systems: All systems reviewed & are unremarkable except as noted in HPI & below Physical Exam Constitutional: WD/WN, vitals as above + ill appearing; no acute distress Eyes: + scleral abnormality (icteric sclera) ENMT: external ear and nose normal, oropharynx normal Neck: trachea midline, no thyromegaly Respiratory: normal respiratory effort, lungs clear to auscultation Cardiovascular: RRR, no murmur, no edema Gastrointestinal (Abdomen): normal bowel sounds, soft, nontender, no hepatosplenomegaly Musculoskeletal: Extremities: no cyanosis and no clubbing Skin: no rashes, warm and dry Neurologic: PERRL, EOMI, accommodation nl, no face palsy, no dysarthria Psychiatric: Orientation: alert and oriented x 3 Results & Data ([facility]) Vital Signs (Past 12 Hours) Vital Signs Temp Pulse Pulse Resp BP BP Pulse Ox 12/10/22 07:37 36.7 C 107 H 18 127/72 92 12/10/22 06:20 94 12/10/22 06:18 36.5 C 84 18 106/72 90 12/10/22 05:56 119 H 115/74 12/10/22 05:51 36.6 C 101 H 18 115/74 88 L 12/10/22 05:00 178 H 12/10/22 05:05 175 H 12/10/22 04:00 36.6 C 115 H 20 111/73 90 12/09/22 22:00 36.3 C L 120 H 16 161/102 H 93 12/10/22 00:57 112 H 12/10/22 00:55 118 H 12/09/22 22:38 116 H 14 138/86 93 12/09/22 20:30 114 H 18 12/09/22 20:30 160/93 H 12/09/22 20:20 115 H 17 94 12/09/22 20:10 115 H 21 94 12/09/22 20:10 153/92 H 12/09/22 20:00 113 H 17 93 12/09/22 19:54 109 H O2 Del Method O2 Flow Rate 12/10/22 07:37 Nasal Cannula 2.0 12/10/22 06:20 Nasal Cannula 2 12/10/22 06:18 Room Air 12/10/22 05:56 12/10/22 05:51 Room Air 12/10/22 05:00 12/10/22 05:05 12/10/22 04:00 Room Air 12/09/22 22:00 Room Air 12/10/22 00:57 12/10/22 00:55 12/09/22 22:38 Room Air 12/09/22 20:30 12/09/22 20:30 12/09/22 20:20 12/09/22 20:10 12/09/22 20:10 12/09/22 20:00 12/09/22 19:54 Laboratory Results 12/09/22 12/09/22 12/09/22 13:15 13:15 16:30 WBC 11.08 H RBC 5.55 H Hgb 16.6 H Hct 50.8 H MCV 91.5 MCH 29.9 MCHC 32.7 RDW Std Deviation 44.7 RDW Coeff of Mandy 13.2 Plt Count 344 MPV 9.9 Immature Gran % (Auto) 0.4 Neut % (Auto) 88.3 Lymph % (Auto) 7.8 [place] % (Auto) 3.3 Eos % (Auto) 0.0 Baso % (Auto) 0.2 Neut # (Auto) 9.79 H Lymph # (Auto) 0.86 L [place] # (Auto) 0.37 Eos # (Auto) 0.00 Baso # (Auto) 0.02 Immature Gran # (Auto) 0.04 Sodium 137 Potassium 4.1 Chloride 102 Carbon Dioxide 24 Anion Gap 11 BUN 15 Creatinine 0.89 Est Cr Clr Drug Dosing 64.5 Est GFR ( Amer) 74.5 Est GFR (Non-Af Amer) 64.3 BUN/Creatinine Ratio 16.9 Glucose 257 H POC Glucose Calcium 8.8 Magnesium Total Bilirubin 6.2 H AST 313 H ALT 536 H Alkaline Phosphatase 231 H Troponin I High Sens 12.4 Total Protein 8.3 Albumin 3.9 Globulin 4.4 H Albumin/Globulin Ratio 0.9 Lipase 4003 H TSH Urine Color Urine Appearance Urine pH Ur Specific [place] Urine Protein Urine Glucose (UA) Urine Ketones Urine Blood Urine Nitrite Urine Bilirubin Urine Urobilinogen Ur Leukocyte Esterase Urine WBC (Auto) Urine RBC (Auto) U Hyaline Cast (Auto) U Epithel Cells (Auto) Urine Bacteria (Auto) SARS-CoV-2, RNA, NAAT NEGATIVE 12/09/22 12/09/22 12/10/22 20:32 21:46 05:48 WBC 32.85 H* D RBC 5.36 Hgb 16.3 H Hct 48.0 H MCV 89.6 MCH 30.4 MCHC 34.0 RDW Std Deviation 44.4 RDW Coeff of Mandy 13.7 Plt Count 340 MPV 9.3 L Immature Gran % (Auto) Neut % (Auto) Lymph % (Auto) [place] % (Auto) Eos % (Auto) Baso % (Auto) Neut # (Auto) Lymph # (Auto) [place] # (Auto) Eos # (Auto) Baso # (Auto) Immature Gran # (Auto) Sodium Potassium Chloride Carbon Dioxide Anion Gap BUN Creatinine Est Cr Clr Drug Dosing Est GFR ( Amer) Est GFR (Non-Af Amer) BUN/Creatinine Ratio Glucose POC Glucose 206 H Calcium Magnesium Total Bilirubin AST ALT Alkaline Phosphatase Troponin I High Sens Total Protein Albumin Globulin Albumin/Globulin Ratio Lipase TSH Urine Color Dark Yellow Urine Appearance Clear Urine pH 5.0 Ur Specific [place] > 1.045 H Urine Protein Trace H Urine Glucose (UA) Trace H Urine Ketones 1+ H Urine Blood Negative Urine Nitrite Negative Urine Bilirubin 2+ H Urine Urobilinogen Negative Ur Leukocyte Esterase Negative Urine WBC (Auto) 1-5 Urine RBC (Auto) 0-4 U Hyaline Cast (Auto) 1-5 U Epithel Cells (Auto) 10-20 H Urine Bacteria (Auto) Negative SARS-CoV-2, RNA, NAAT 12/10/22 12/10/22 12/10/22 05:48 05:48 05:53 WBC RBC Hgb Hct MCV MCH MCHC RDW Std Deviation RDW Coeff of Mandy Plt Count MPV Immature Gran % (Auto) Neut % (Auto) Lymph % (Auto) [place] % (Auto) Eos % (Auto) Baso % (Auto) Neut # (Auto) Lymph # (Auto) [place] # (Auto) Eos # (Auto) Baso # (Auto) Immature Gran # (Auto) Sodium 138 Potassium 3.8 Chloride 107 Carbon Dioxide 23 Anion Gap 8 BUN 17 Creatinine 0.87 Est Cr Clr Drug Dosing 64.8 Est GFR ( Amer) 76.6 Est GFR (Non-Af Amer) 66.1 BUN/Creatinine Ratio 19.5 Glucose 162 H POC Glucose Calcium 7.6 L Magnesium 1.6 L Total Bilirubin 6.3 H AST 250 H ALT 439 H Alkaline Phosphatase 197 H Troponin I High Sens Total Protein 6.9 Albumin 3.3 L Globulin 3.6 Albumin/Globulin Ratio 0.9 Lipase TSH 1.497 Urine Color Urine Appearance Urine pH Ur Specific [place] Urine Protein Urine Glucose (UA) Urine Ketones Urine Blood Urine Nitrite Urine Bilirubin Urine Urobilinogen Ur Leukocyte Esterase Urine WBC (Auto) Urine RBC (Auto) U Hyaline Cast (Auto) U Epithel Cells (Auto) Urine Bacteria (Auto) SARS-CoV-2, RNA, NAAT 12/10/22 06:31 WBC RBC Hgb Hct MCV MCH MCHC RDW Std Deviation RDW Coeff of Amndy Plt Count MPV Immature Gran % (Auto) Neut % (Auto) Lymph % (Auto) [place] % (Auto) Eos % (Auto) Baso % (Auto) Neut # (Auto) Lymph # (Auto) [place] # (Auto) Eos # (Auto) Baso # (Auto) Immature Gran # (Auto) Sodium Potassium Chloride Carbon Dioxide Anion Gap BUN Creatinine Est Cr Clr Drug Dosing Est GFR ( Amer) Est GFR (Non-Af Amer) BUN/Creatinine Ratio Glucose POC Glucose 151 H Calcium Magnesium Total Bilirubin AST ALT Alkaline Phosphatase Troponin I High Sens Total Protein Albumin Globulin Albumin/Globulin Ratio Lipase TSH Urine Color Urine Appearance Urine pH Ur Specific [place] Urine Protein Urine Glucose (UA) Urine Ketones Urine Blood Urine Nitrite Urine Bilirubin Urine Urobilinogen Ur Leukocyte Esterase Urine WBC (Auto) Urine RBC (Auto) U Hyaline Cast (Auto) U Epithel Cells (Auto) Urine Bacteria (Auto) SARS-CoV-2, RNA, NAAT Diagnostic Findings Abdomen/Pelvis CT 12/09/22 14:22 CT abd pelvis IV con only, CT lumbar spine w con CLINICAL HISTORY: Abd/back pain TECHNIQUE: Helical axial images of the abdomen and pelvis were obtained and displayed. Automated dose lowering techniques and/or adjustment according to patient size were utilized for this exam. Dedicated images of the lumbar spine were obtained. This exam was performed with intravenous contrast. CT DOSE: 735.87 mGy.cm COMPARISON: None available at the time of this dictation. FINDINGS: Lower chest: Bibasilar atelectasis versus scarring is seen. Liver: Unremarkable. No focal lesions are seen. Gallbladder and biliary tree: The gallbladder is distended. Gallbladder wall measures up to 3 mm. No intra- or extrahepatic biliary ductal dilation. Pancreas: Prominent peripancreatic stranding is seen. No abnormal enhancement is seen to suggest necrosis. No discrete fluid collections are seen. Spleen: Unremarkable. Adrenals: Unremarkable. Kidneys and ureters: Lobular appearance of the kidneys. Nonobstructive stones are seen bilaterally. Subcentimeter hypodensities in the kidneys may represent cysts but are too small to characterize. Bladder: Unremarkable. Reproductive organs: Unremarkable. Bowel: The appendix is normal. A hiatal hernia is seen. Lymph nodes Retroperitoneal: Unremarkable. Pelvic: Unremarkable. Mesenteric: Unremarkable. Peritoneum: Prominent fat stranding and a small amount of peritoneal fluid is seen in the upper abdomen. Vessels: Atherosclerotic calcifications are seen. Abdominal wall: Unremarkable. Bones: Mild degenerative changes without evidence of acute fracture. IMPRESSION: 1. Peripancreatic fat stranding is seen concerning for pancreatitis. 2. Prominence of the gallbladder may be reactive or less likely may represent acute cholecystitis. 3. Nonobstructive nephrolithiasis. ACT 112: Negative or not required by law. Electronically signed by: Yury Zamora M.D. 12/09/2022 3:[address] 12/09/22 14:42 CT abd pelvis IV con only, CT lumbar spine w con CLINICAL HISTORY: Abd/back pain TECHNIQUE: Helical axial images of the abdomen and pelvis were obtained and displayed. Automated dose lowering techniques and/or adjustment according to patient size were utilized for this exam. Dedicated images of the lumbar spine were obtained. This exam was performed with intravenous contrast. CT DOSE: 735.87 mGy.cm COMPARISON: None available at the time of this dictation. FINDINGS: Lower chest: Bibasilar atelectasis versus scarring is seen. Liver: Unremarkable. No focal lesions are seen. Gallbladder and biliary tree: The gallbladder is distended. Gallbladder wall measures up to 3 mm. No intra- or extrahepatic biliary ductal dilation. Pancreas: Prominent peripancreatic stranding is seen. No abnormal enhancement is seen to suggest necrosis. No discrete fluid collections are seen. Spleen: Unremarkable. Adrenals: Unremarkable. Kidneys and ureters: Lobular appearance of the kidneys. Nonobstructive stones are seen bilaterally. Subcentimeter hypodensities in the kidneys may represent cysts but are too small to characterize. Bladder: Unremarkable. Reproductive organs: Unremarkable. Bowel: The appendix is normal. A hiatal hernia is seen. Lymph nodes Retroperitoneal: Unremarkable. Pelvic: Unremarkable. Mesenteric: Unremarkable. Peritoneum: Prominent fat stranding and a small amount of peritoneal fluid is seen in the upper abdomen. Vessels: Atherosclerotic calcifications are seen. Abdominal wall: Unremarkable. Bones: Mild degenerative changes without evidence of acute fracture. IMPRESSION: 1. Peripancreatic fat stranding is seen concerning for pancreatitis. 2. Prominence of the gallbladder may be reactive or less likely may represent acute cholecystitis. 3. Nonobstructive nephrolithiasis. ACT 112: Negative or not required by law. Electronically signed by: Yury Zamora M.D. 12/09/2022 3:50 PM Abdomen Ultrasound 12/09/22 21:21 ULTRASOUND RIGHT UPPER QUADRANT ABDOMEN CLINICAL HISTORY: Elevated hepatic transaminases. COMPARISON STUDY: Abdominal CT dated 12/09/2022. TECHNIQUE: Real-time, grayscale, and color flow sonography of the right upper quadrant of the abdomen was performed. Images are reviewed in the transverse and longitudinal planes. FINDINGS: Liver: The liver is normal in size and demonstrates heterogeneously increased echotexture indicating steatosis. There is no intrahepatic biliary ductal dilatation. The main portal vein is patent. Gallbladder: The gallbladder is distended and filled with stones/sludge. The gallbladder wall appears mildly thickened. Trace pericholecystic fluid is noted. A sonographic Waterman's sign is reportedly absent. The common bile duct measures up to 0.5 cm in diameter. Pancreas: Not visualized due to overlying bowel gas. Right kidney: Survey images of the right kidney demonstrate cortical atrophy. Echotexture there is normal. There is no hydronephrosis. Ascites: There is trace perihepatic ascites. IMPRESSION: 1. The gallbladder is distended and full of stones/sludge as detailed above. Findings are suspicious for acute cholecystitis. 2. The pancreas was not well visualized by ultrasound. CT findings remain consistent with pancreatitis. Correlate with clinical and laboratory findings. 3. Hepatic steatosis. 4. Trace perihepatic ascites. ACT 112: Negative or not required by law. Electronically signed by: Chidi Garay M.D. 12/10/2022 8:11 AM Chest X-Ray 12/10/22 06:59 SINGLE VIEW CHEST CLINICAL HISTORY: Tachycardia FINDINGS: An AP, portable, upright chest radiograph is compared to study dated 04/05/2022. Correlation is made with abdominal CT dated 12/09/2022. The cardiomediastinal silhouette is unremarkable noting atherosclerotic calcification of the thoracic aorta. There are low lung volumes. Consolidation is seen at the left lung base. No large pleural effusion or pneumothorax is seen. The skeletal structures are osteopenic. The bony thorax is grossly intact. IMPRESSION: 1. There are low lung volumes with bibasilar atelectasis. 2. Consolidation at the left lung base could represent atelectasis versus pneumonia/aspiration pneumonitis. Clinical correlation will be required. ACT 112: Negative or not required by law. Electronically signed by: Chidi Garay M.D. 12/10/2022 8:04 AM (1) Acute pancreatitis Acute pancreatitis complication: unspecified Pancreatitis type: unspecified pancreatitis type Qualified Code(s): K85.90 - Acute pancreatitis without necrosis or infection, unspecified
--- NOTE | 2022-12-10 08:57 | Communication Note ---
Date of Service: December 10, 2022 Patient with gallstone pancreatitis however has obstructive jaundice, elevated LFTs and WBC of 34K highly suggestive of acute cholangitis. Recommend: Urgent ERCP today. Discussed with general surgery who agreed to do combo Lap adele today at the same time.
--- NOTE | 2022-12-10 09:01 | Anesthesiology Consultation ---
Date of Service December 10, 2022 Assessment & Plan Chart Review Chart Review: Acceptable Risk for Surgery and Patient NOT seen in Pre Admission Testing Consults Requested none ASA [id number] Proposed Anesthesia Anesthesia Type: General History Height/Weight Height: 5 ft 4 in Weight: 96 kg Allergies Allergy/AdvReac Type Severity Reaction Status Date / Time No Known Allergies Allergy Unverified 04/26/12 15:09 Medications Home Medications Medication Instructions Recorded Confirmed Last Taken losartan 50 mg tablet 50 mg PO DAILY 12/09/22 12/09/22 12/08/22 methimazole 5 mg tablet 5 mg PO DAILY 12/09/22 12/09/22 12/08/22 sertraline 50 mg tablet 50 mg PO DAILY 12/09/22 12/09/22 12/08/22 solifenacin 10 mg tablet 10 mg PO DAILY 12/09/22 12/09/22 12/08/22 Active Medications Generic Name Dose Route Start Last Admin Trade Name Freq PRN Reason Stop Dose Admin Hydromorphone HCl 0.5 mg 12/09/22 21:21 12/10/22 07:56 Hydromorphone Inj 0.5 Mg/0.5 Ml Syr IV 12/23/22 21:20 0.5 mg Q6H PRN Administration Severe Pain (Scale 7, 8, 9,10) Piperacillin Sod/Tazobactam 120 mls @ 30 mls/hr 12/10/22 00:00 12/10/22 05:11 Sod 4.5 gm/ Dextrose IV 12/20/22 00:00 Infused Q8H VANDANA Infusion Protocol Insulin Aspart 0 units 12/09/22 21:30 12/10/22 06:39 Insulin Aspart Per Unit SC 01/08/23 21:29 Not Given Q6 VANDANA Losartan Potassium 50 mg 12/10/22 09:00 12/10/22 08:01 Losartan Potassium 50 Mg Tab PO 01/09/23 08:59 50 mg DAILY VANDANA Administration Methimazole 5 mg 12/10/22 09:00 12/10/22 08:02 Methimazole 5 Mg Tablet PO 01/09/23 08:59 5 mg DAILY VANDANA Administration Miscellaneous 1 each 12/09/22 21:30 12/10/22 01:29 Vesicare~Order Awaiting Action N/A 01/08/23 21:29 Not Given QS VANDANA Morphine Sulfate 2 mg 12/09/22 21:21 12/10/22 04:57 Morphine Sulfate 2 Mg/Ml Carp IV 12/23/22 21:20 2 mg Q3H PRN Administration Moderate Pain (Scale 4, 5, 6) Ondansetron HCl 4 mg 12/09/22 21:21 12/10/22 07:56 Ondansetron Inj 2 Mg/Ml 2 Ml Vial IV 01/08/23 21:20 4 mg Q6H PRN Administration Nausea And Vomiting Sertraline HCl 50 mg 12/10/22 09:00 12/10/22 08:02 Sertraline Hcl 50 Mg Tablet PO 01/09/23 08:59 50 mg DAILY VANDANA Administration Past Medical History Medical History Depression History of claustrophobia Hypertension Multiple sclerosis Exercise / Class Metabolic Activity III < 4 Walking/Shop/Light housework Past Surgical History Surgical History No significant past surgical history Past Anesthesia History No Hx of Anesthesia Complications and No Family Hx of Anesthesia Complications History of PONV No Hx of PONV and No Hx of Motion Sickness Social History Smoking Status: Former smoker tobacco type: cigarettes Do You Dip or Chew Tobacco: No Smoking End Date: Hx Alcohol Use: No Hx Substance Use: No Physical Exam Vital Signs Last Vital Signs Temp 36.7 C 12/10/22 07:37 Pulse 107 H 12/10/22 07:37 Resp 18 12/10/22 07:37 BP 127/72 12/10/22 07:37 Pulse Ox 92 12/10/22 07:37 O2 Del Method Nasal Cannula 12/10/22 07:37 O2 Flow Rate 2.0 12/10/22 07:37 Testing Laboratory Results 12/10/22 05:48 12/10/22 05:53 Urine Color Dark Yellow 12/09/22 20:32 Urine Appearance Clear (Clear) 12/09/22 20:32 Urine pH 5.0 (4.5-7.5) 12/09/22 20:32 Ur Specific [place] > 1.045 (1.000-1.030) H 12/09/22 20:32 Urine Protein Trace (Negative) H 12/09/22 20:32 Urine Glucose (UA) Trace (Negative) H 12/09/22 20:32 Urine Ketones 1+ (Negative) H 12/09/22 20:32 Urine Nitrite Negative (Negative) 12/09/22 20:32 Ur Leukocyte Esterase Negative (Negative) 12/09/22 20:32 Urine WBC (Auto) 1-5 /hpf (0-5) 12/09/22 20:32 Urine RBC (Auto) 0-4 /hpf (0-4) 12/09/22 20:32 U Hyaline Cast (Auto) 1-5 /lpf (0-5) 12/09/22 20:32 U Epithel Cells (Auto) 10-20 /lpf (0-5) H 12/09/22 20:32 Urine Bacteria (Auto) Negative (Negative) 12/09/22 20:32 12/10/22 12/09/22 06:31 21:46 POC Glucose 151 H 206 H Electrocardiogram Date: 12/10/22 Findings: + ST @ (@ 117;? infer. infarct,age?) Chest X-Ray Date: 12/10/22 Findings: + atelectasis (bibasilar) and + infiltrate (left lung base consolidation)
[2022-12-10 09:10] LABS: Estimated Average Glucose 128 mg/dl; Hemoglobin A1C 6.1 % (4.5-5.6)
[2022-12-10] MEDS: PIPERACILLIN/TAZOBACTAM 4.5 GM in DEXTROSE 5% 100 ML IV SCH ×2 (09:17→16:22)
--- NOTE | 2022-12-10 09:30 | Hospitalist Progress Note ---
Date of Service December 10, 2022 Assessment & Plan (1) Acute pancreatitis: (2) Nausea and vomiting: Plan: Possible related to gallstone related pancreatitis Present on admission with abdominal pain that radiating to back associating with vomiting and nausea CT abd/pel showed peripancreatic fat stranding is seen concerning for pancreatitis. Prominence of the gallbladder may be reactive or less likely may represent acute cholecystitis. Lipase above 4000's on admission, Lipase 2960 today Continue supportive care with IVF and pain management Keep NPO for bowel rest and ERCP today Continue pain control Gastro on board Acute cholangitis Transaminitis CT abd/pelvis showed prominence of the gallbladder may be reactive or less likely may represent acute adele Abdomen u/s showed gallbladder is distended and full of stones/sludge as detailed above. Findings are suspicious for acute cholecystitis. Elevated LFT with AST 313 and ALT 536 LFT today with AST 250, ALT 439 and Alk 197 WBC increased to 34K Gastro and surgery on board Case discussed with GI that plan for urgent ERCP today Surgery will plan for laparoscopic cholecystectomy at the same time during the ERCP Continue IV Zosyn for now SVT Telemonitor showed brief episodes of SVT will start on metoprolol 12.5 mg Continue monitor in tele Elevated Glucose Possible related to pancreatitis recent Hba1c 6.1 continue monitor BS HTN BP improved Continue Losartan Continue clonidine PRN for elevate BP Continue monitor BP Hyperthyroidism Continue Methimazole Anxiety Continue Sertraline Code status full code DVT px on SCD in case pt will need surgical intervention A total of 50 minutes was spent with greater than 50% of that time personally viewing all current laboratory work and diagnostic imaging studies obtained in the ED. Additionally, I was able to view the patients past medication reconciliation and history with direct visualization in the patients chart. Included in the time above, a portion of that time was spent assessing the patient while discussing and collaborating with specialists, if necessary, and making medical decision making on treatment plan. Admission and Anticipated Discharge Date Admission Date: December 09, 2022 Subjective Pt was seen and examined for follow up of pancreatitis and acute cholecystitis Lying on bed with no acute distress I spoke to GI that will take her to OR for emergent ERCP Denies any chest pain, palpitation. dizziness and SOB Review of Systems Review of Systems: All systems reviewed & are unremarkable except as noted in Subjective Physical Exam Physical Exam: General- No acute distress Head- atraumatic Eyes- PERRL, EOMI, ENT- oropharynx clear Neck- supple, no JVD Lungs- clear to auscultation Heart- +tachycardia no murmur Abdomen- normal bowel sounds, soft, +tender Extremities- no calf tenderness Neuro- alert, oriented x 3; PERRL, EOMI; no facial palsy; no dysarthria Skin- warm & dry Results & Data Results & Data ([facility]) Vital Signs (Past 12 Hours) Vital Signs Temp Pulse Pulse Resp BP BP Pulse Ox 12/10/22 07:37 36.7 C 107 H 18 127/72 92 12/10/22 06:20 94 12/10/22 06:18 36.5 C 84 18 106/72 90 12/10/22 05:56 119 H 115/74 12/10/22 05:51 36.6 C 101 H 18 115/74 88 L 12/10/22 05:00 178 H 12/10/22 05:05 175 H 12/10/22 04:00 36.6 C 115 H 20 111/73 90 12/09/22 22:00 36.3 C L 120 H 16 161/102 H 93 12/10/22 00:57 112 H 12/10/22 00:55 118 H 12/09/22 22:38 116 H 14 138/86 93 12/09/22 20:30 114 H 18 12/09/22 20:30 160/93 H O2 Del Method O2 Flow Rate 12/10/22 07:37 Nasal Cannula 2.0 12/10/22 06:20 Nasal Cannula 2 12/10/22 06:18 Room Air 12/10/22 05:56 12/10/22 05:51 Room Air 12/10/22 05:00 12/10/22 05:05 12/10/22 04:00 Room Air 12/09/22 22:00 Room Air 12/10/22 00:57 12/10/22 00:55 12/09/22 22:38 Room Air 12/09/22 20:30 12/09/22 20:30 (1) Acute pancreatitis Acute pancreatitis complication: unspecified Pancreatitis type: unspecified pancreatitis type Qualified Code(s): K85.90 - Acute pancreatitis without necrosis or infection, unspecified (2) Nausea and vomiting Vomiting type: unspecified Qualified Code(s): R11.2 - Nausea with vomiting, unspecified
[2022-12-10] MEDS ORDERED: BUPIVACAINE 0.5 % 5 MG/1 ML MPF 30ML VIAL ONE (09:57)
[2022-12-10] MEDS ORDERED: INDOMETHACIN 50 MG SUPP PR ONE (09:58)
[2022-12-10] MEDS ORDERED: fentaNYL citrate PF 100 MCG/2 ML VIAL IV PRN (10:02)
[2022-12-10] MEDS ORDERED: ATROPINE SULFATE 0.1 MG/ML 10ML SYR IV PRN ×2 (10:02→13:13)
[2022-12-10] MEDS ORDERED: ePHEDrine sulfate 50 MG/ML AMP IV PRN ×2 (10:02→13:13)
[2022-12-10] MEDS ORDERED: NALOXONE HCL 0.4 MG/1 ML VIAL/CARP IV PRN ×2 (10:02→13:13)
[2022-12-10] MEDS ORDERED: PROMETHAZINE HCL 12.5 MG in SODIUM CHLORIDE 0.9% 50 ML IV PRN ×2 (10:02→13:13)
[2022-12-10] MEDS ORDERED: ONDANSETRON INJ 2 MG/ML 2 ML VIAL IV PRN ×2 (10:02→13:13)
[2022-12-10] MEDS ORDERED: FLUMAZENIL 0.1 MG/1 ML 10 ML VIAL IV PRN ×2 (10:02→13:13)
[2022-12-10] MEDS ORDERED: PHENYLEPHRINE 100MCG/ML 5ML SYR ONE (10:27)
--- NOTE | 2022-12-10 10:39 | Electrocardiogram Report ---
Test Reason : Blood Pressure : / mmHG Vent. Rate : 109 BPM Atrial Rate : 109 BPM P-R Int : 146 ms QRS Dur : 082 ms QT Int : 356 ms P-R-T Axes : 046 -03 038 degrees QTc Int : 479 ms Sinus tachycardia Possible Left atrial enlargement Abnormal ECG When compared with ECG of 05-APR-2022 16:10, Premature supraventricular complexes are no longer Present Confirmed by Larry Marr ([id number]) on 12/10/2022 10:39:07 AM Referred By: REFERRED SELF Confirmed By:Larry Marr
--- NOTE | 2022-12-10 10:44 | Operative Report ---
Post Operative Report Pre & Post Diagnosis Operation Date: 12/10/22 11:00 Pre-Op Diagnosis: Acute pancreatitis, Cholithiasis, cholecystitis Post-Op Diagnosis: Acute pancreatitis, Cholithiasis, cholecystitis I identified the patient and participated in the time-out.: Yes Procedure Operation Date: 12/10/22 11:00 Actual Procedures p Laparoscopic Cholecystectomy(Not Applicable) - Mark Whittaker MD, FACS s Endoscopic Retrograde Cholangiopancreato(Not Applicable) - Rachel Mcneill MD Surgeon Rachel Mcneill MD Exercise Rider None Estimated Blood Loss 0 Findings See Below (CBD stones and pus removed, stent placed) Specimens None Description of Procedure ERCP I attest to the content of the Intraoperative Record and any orders documented therein. Any exceptions are noted below.
--- NOTE | 2022-12-10 10:50 | GI REPORT ---
Patient Name: Blossom Mayer Procedure Date: 12/10/2022 10:05 AM Date of : 1950 Admit Type: Inpatient Age: 72 Gender: Female Attending MD: Rachel Mcneill MD, Procedure: ERCP Providers: Rachel Mcneill MD Referring MD: BUSHRA THAKUR Indications: Evaluation and possible treatment of bile duct stone(s), Jaundice, Elevated liver enzymes Medicines: General Anesthesia Complications: No immediate complications. Estimated Blood Loss: Estimated blood loss: none. Procedure: Pre-Anesthesia Assessment: - Prior to the procedure, a History and Physical was performed, and patient medications, allergies and sensitivities were reviewed. The patient's tolerance of previous anesthesia was reviewed. - The risks and benefits of the procedure and the sedation options and risks were discussed with the patient. All questions were answered and informed consent was obtained. - Patient identification and proposed procedure were verified prior to the procedure by the physician and the nurse. The procedure was verified in the procedure room. - Pre-procedure physical examination revealed no contraindications to sedation. After obtaining informed consent, the scope was passed under direct vision. Throughout the procedure, the patient's blood pressure, pulse, and oxygen saturations were monitored continuously. The was introduced through the mouth, and advanced to the duodenum and used to inject contrast into the bile duct. The ERCP was accomplished without difficulty. The patient tolerated the procedure well. Findings: The drying rack changer film was normal. The esophagus was successfully intubated under direct vision. The scope was advanced to a normal major papilla in the descending duodenum without detailed examination of the pharynx, larynx and associated structures, and upper GI tract. The upper GI tract was grossly normal. A 0.025 inch x 270 cm angled Visiglide wire was passed into the biliary tree. The short-nosed traction sphincterotome was passed over the guidewire and the bile duct was then deeply cannulated. Contrast was injected. I personally interpreted the bile duct images. Ductal flow of contrast was adequate. Image quality was adequate. Contrast extended to the main bile duct. Opacification of the entire biliary tree was successful. The maximum diameter of the ducts was 8 mm. Biliary sphincterotomy was made with a monofilament traction (standard) sphincterotome using ERBE electrocautery. There was no post-sphincterotomy bleeding. The biliary tree was swept with an 11.5 mm balloon starting at the bifurcation. Sludge was swept from the duct. A few stones were removed. No stones remained. Pus was swept from the duct. One 10 Fr by 8 cm plastic biliary stent with a single external flap and a single internal flap was placed into the common bile duct. Bile flowed through the stent. The stent was in good position. Indomethacin 100 mg was given via suppository to decrease the risk of post-ERCP pancreatitis (PEP). Impression: - Choledocholithiasis was found. Complete removal was accomplished by biliary sphincterotomy and balloon extraction. - One plastic biliary stent was placed into the common bile duct. Recommendation: - Repeat ERCP in 2 months to remove stent. Rachel Mcneill MD 12/10/2022 10:49:47 AM This report has been signed electronically. Note Initiated On: 12/10/2022 10:05 AM Number of Addenda: 0 I attest to the content of the Intraoperative Record and orders documented therein, exceptions below {[id number]}
--- NOTE | 2022-12-10 10:55 | Electrocardiogram Report ---
Test Reason : Blood Pressure : / mmHG Vent. Rate : 117 BPM Atrial Rate : 117 BPM P-R Int : 138 ms QRS Dur : 072 ms QT Int : 310 ms P-R-T Axes : 042 -06 045 degrees QTc Int : 432 ms Sinus tachycardia Inferior infarct (cited on or before 09-DEC-2022) Abnormal ECG When compared with ECG of 09-DEC-2022 18:04, (unconfirmed) Criteria for Inferior infarct , age undetermined is now present Confirmed by Larry Marr ([id number]) on 12/10/2022 10:55:01 AM Referred By: REFERRED SELF Confirmed By:Larry Marr
--- NOTE | 2022-12-10 11:28 | Fluoroscopy Report ---
INTRAOPERATIVE RADIOGRAPHS CLINICAL HISTORY: ERCP. Fluoro time: 52 seconds. Exposure: 27.45 mGy FINDINGS: 6 spot fluoroscopic views of right upper quadrant from an ERCP procedure are correlated wit h abdominal CT and ultrasound dated 12/09/2022. A wire is placed within the common bile duct. The duct appears mildly dilated. There is no significant intrahepatic biliary ductal dilatation. A balloon sw eep of the duct is performed. A common bile duct stent is placed. IMPRESSION: Intraoperative ERCP images as above. See operative report for detailed findings. Electronically signed by: Chidi Garay M.D. 12/10/2022 11:27 AM
[2022-12-10] MEDS ORDERED: FLOSEAL HEMOSTATIC MATRIX 10ML TOP ONE (11:29)
[2022-12-10] MEDS ORDERED: SURGICEL ABSORB HEMOSTAT 2IN X 14IN TOP ONE (11:38)
[2022-12-10] MEDS ORDERED: ACETAMINOPHEN 1,000 MG/100 ML VIAL IV ONE (12:14)
[2022-12-10] MEDS ORDERED: oxyCODONE HCL IR 5 MG TAB (IMMEDIATE RELEASE) PO PRN ×2 (12:14→12:45)
--- NOTE | 2022-12-10 12:14 | Post Operative Brief Note ---
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 over the gallbladder and within the tima hepatis These were chronic adhesions from prior severe disease and not acute inflammation from the pancreatitis I identified the patient and participated in the time-out.: Yes Procedure Operation Date: 12/10/22 11:00 Actual Procedures p Laparoscopic Cholecystectomy(Not Applicable) - Mark Whittaker MD, FACS Extensive lysis of adhesions s Endoscopic Retrograde Cholangiopancreato(Not Applicable) - Rachel Mcneill MD Surgeon Mark Whittaker MD, FACS Dining Room Coordinator To Leonard for laparoscopic cholecystectomy Estimated Blood Loss 30 Findings Consistent with Post-Op Diagnosis Patient had very severe adhesions of the omentum over the gallbladder and to the liver with extensive scar tissue And adhesions within the tima hepatis-this made it extremely unsafe to proceed into the tima hepatis for fear of injury to the common bile duct and surrounding structures Subtotal cholecystectomy was performed with removal of stones and drain placement Specimens Specimen Description: A. Gallbladder Drains Yosef-Flower Drain (19round)
[2022-12-10] MEDS ORDERED: ACETAMINOPHEN 1000 MG/100 ML IV IV ONE ×2 (12:34→12:35)
--- NOTE | 2022-12-10 12:55 | Anesthesiology Progress Note ---
Date of Service December 10, 2022 Anesthesia Post Procedure Vital Signs Vital Signs: Temp Pulse Pulse Resp BP BP Pulse Ox 12/10/22 06:49 94 H 12/10/22 09:32 12/10/22 07:37 36.7 C 107 H 18 127/72 92 12/10/22 06:20 94 12/10/22 06:18 36.5 C 84 18 106/72 90 12/10/22 05:56 119 H 115/74 12/10/22 05:51 36.6 C 101 H 18 115/74 88 L 12/10/22 05:00 178 H 12/10/22 05:05 175 H 12/10/22 04:00 36.6 C 115 H 20 111/73 90 12/09/22 22:00 36.3 C L 120 H 16 161/102 H 93 12/10/22 00:57 112 H 12/10/22 00:55 118 H 12/09/22 22:38 116 H 14 138/86 93 12/09/22 20:30 114 H 18 12/09/22 20:30 160/93 H 12/09/22 20:20 115 H 17 94 12/09/22 20:10 115 H 21 94 12/09/22 20:10 153/92 H 12/09/22 20:00 113 H 17 93 12/09/22 19:50 113 H 19 94 12/09/22 19:40 110 H 16 92 12/09/22 19:31 109 H 19 93 12/09/22 19:10 109 H 19 93 12/09/22 19:00 112 H 20 93 12/09/22 18:50 112 H 17 94 12/09/22 18:40 110 H 20 94 12/09/22 18:30 113 H 21 93 12/09/22 18:20 114 H 25 H 93 12/09/22 18:10 111 H 18 94 12/09/22 18:00 109 H 17 93 12/09/22 18:00 189/104 H 12/09/22 17:50 107 H 18 93 12/09/22 17:40 107 H 14 94 12/09/22 17:30 110 H 27 H 94 12/09/22 17:20 108 H 18 95 12/09/22 17:10 114 H 20 92 12/09/22 17:00 111 H 17 92 12/09/22 16:50 109 H 22 92 12/09/22 16:40 110 H 18 93 12/09/22 16:30 110 H 19 92 12/09/22 16:20 110 H 19 93 12/09/22 16:10 109 H 17 94 12/09/22 16:00 109 H 18 94 12/09/22 16:00 202/110 H 12/09/22 15:50 108 H 18 93 12/09/22 15:40 108 H 21 94 12/09/22 15:30 107 H 19 12/09/22 19:54 109 H 12/09/22 16:30 110 H 20 202/110 H 93 12/09/22 15:23 108 H 23 185/93 H 95 12/09/22 15:00 110 H 19 207/116 H 12/09/22 14:42 176/113 H 12/09/22 14:00 208/154 H 12/09/22 13:30 169/104 H 12/09/22 13:22 36.6 C 106 H 18 177/101 H 95 12/09/22 13:14 108 H O2 Del Method O2 Flow Rate 12/10/22 06:49 12/10/22 09:32 Nasal Cannula 2 12/10/22 07:37 Nasal Cannula 2.0 12/10/22 06:20 Nasal Cannula 2 12/10/22 06:18 Room Air 12/10/22 05:56 12/10/22 05:51 Room Air 12/10/22 05:00 12/10/22 05:05 12/10/22 04:00 Room Air 12/09/22 22:00 Room Air 12/10/22 00:57 12/10/22 00:55 12/09/22 22:38 Room Air 12/09/22 20:30 12/09/22 20:30 12/09/22 20:20 12/09/22 20:10 12/09/22 20:10 12/09/22 20:00 12/09/22 19:50 12/09/22 19:40 12/09/22 19:31 12/09/22 19:10 12/09/22 19:00 12/09/22 18:50 12/09/22 18:40 12/09/22 18:30 12/09/22 18:20 12/09/22 18:10 12/09/22 18:00 12/09/22 18:00 12/09/22 17:50 12/09/22 17:40 12/09/22 17:30 12/09/22 17:20 12/09/22 17:10 12/09/22 17:00 12/09/22 16:50 12/09/22 16:40 12/09/22 16:30 12/09/22 16:20 12/09/22 16:10 12/09/22 16:00 12/09/22 16:00 12/09/22 15:50 12/09/22 15:40 12/09/22 15:30 12/09/22 19:54 12/09/22 16:30 Room Air 12/09/22 15:23 Room Air 12/09/22 15:00 12/09/22 14:42 12/09/22 14:00 12/09/22 13:30 12/09/22 13:22 Room Air 12/09/22 13:14 Pain Intensity Abdomen: Pain Intensity: 8 Transfer of Care Handoff Completed per policy Notes Mental Status: alert / awake / arousable Patient Amnestic to Procedure: Yes Nausea / Vomiting: adequately controlled Pain: adequately controlled Airway Patency, RR, SpO2: stable & adequate BP & HR: stable & adequate Hydration State: stable & adequate Anesthetic Complications: no major complications apparent
[2022-12-10] MEDS: fentaNYL citrate PF 100 MCG/2 ML VIAL IV PRN ×4 (13:00→13:25)
[2022-12-10] MEDS ORDERED: HYDROmorphone INJ 1 MG/ML SYRINGE IV PRN (13:13)
[2022-12-10 13:32] LABS: Hemoglobin 14.4 g/dl (12.0-16.0); Mean Corpuscular Hemoglobin 30.2 pg (25.0-34.0); Mean Corpuscular Hgb Conc 32.7 g/dL (32.0-36.0); Mean Corpuscular Volume 92.2 fL (80.0-100.0); Mean Platelet Volume 9.3 fL (9.4-12.4); Platelet Count 275 K/uL (130-400); RDW Coefficient of Variation 13.8 % (11.5-14.5); RDW Standard Deviation 47.2 fL (36.4-46.3); Red Blood Count 4.77 M/uL (4.20-5.40); White Blood Count 32.82 K/ul (4.8-10.8)
[2022-12-10 14:10] LABS: Basophils # (auto) 0.05 K/uL (0-0.2); Basophils % (auto) 0.2 %; Echinocytes 1+; Eosinophils # (auto) 0.01 K/uL (0-0.50); Immature Granulocytes % (auto) 1.2 %; Lymphocytes # (auto) 1.23 K/uL (1.2-3.4); Lymphocytes % (auto) 3.7 %; Monocytes # (auto) 3.29 K/uL (0.11-0.59); Neutrophils # (auto) 27.84 K/uL (1.40-6.50); Neutrophils % (auto) 84.9 %; Toxic Vacuolation 1+
[2022-12-10] MEDS: DOCUSATE SODIUM/SENNA 50/8.6MG TAB PO SCH (20:41)
--- NOTE | 2022-12-10 21:35 | Communication Note ---
Date of Service: December 10, 2022 9:30 PM Transient A-fib on the monitor as per RN. Highest heart rate of 170s as per RN. SBP 113/71 Patient complaining of shoulder pain present before admission as per RN. AP Paroxysmal A-fib No prior history Initiate beta-jorge luis for rate control Cardiology consult Re: PAF
[2022-12-10] MEDS ORDERED: oxyCODONE HCL IR 5 MG TAB (IMMEDIATE RELEASE) PO STA (21:38)
[2022-12-10] MEDS ORDERED: POTASSIUM CHLORIDE CRTAB 20 MEQ TABCR PO STA (21:39)
[2022-12-10] MEDS ORDERED: LACTATED RINGER'S 1,000 ML IV ONE (21:40)
[2022-12-10] MEDS ORDERED: DIGOXIN 250 MCG in SYRINGE 9 ML IV STA (21:43)
[2022-12-10] MEDS ORDERED: METOPROLOL TARTRATE 25 MG TAB PO SCH (21:45)
--- NOTE | 2022-12-10 23:00 | Operative Report (OR) ---
DATE OF PROCEDURE: 12/10/2022. NAME OF OPERATION: Laparoscopic cholecystectomy with extensive lysis of adhesions, please add modifier for extensive difficulty and increased length of the procedure. STAFF SURGEON: Mark Whittaker MD. PUBLIC HEALTH INFORMATICIAN: Viktoria Garcia. ANESTHESIA: General. DESCRIPTION OF PROCEDURE: The patient was brought in the operating room, placed on the operating table in supine position. My fast food assistant restaurant manager helped with prepping, draping, removal of the gallbladder and closure of the wounds. Her abdomen was prepped and draped in the usual fashion. Pneumatic stockings and orogastric tube were placed. Incision was made above the umbilicus, carrying dissection down, placing a Veress needle producing pneumoperitoneum, placing an 11 mm port at this level. Under visualization, three 5 mm ports were placed, one cephalad and two laterally. I could not visualize the gallbladder. The omentum was severely adherent to the liver and gallbladder. Slowly we took some of these adhesions down, identifying the gallbladder. It was partially aspirated of thick purulent bile and then it was retracted. I continued to take adhesions down from the liver and gallbladder to the more central portion of the gallbladder near the tima hepatis where there were just severe chronic adhesions making it in my view unsafe to continue because of injury to other structures. Therefore, I opened the gallbladder, placed in an Endobag into the abdomen, placed stones into the Endobag and then removed the majority of the gallbladder, leaving a small portion behind as well as some back wall. I did not notice any bile leak. However, I was not going to be able to dissect further. At this point, we had the gallbladder in the Endobag and we were able to remove it through the umbilical site. I had to make the fascial defect larger because of the size of the gallbladder. At this point, I used a balloon cannula and then went back in, she did have some oozing, probably 30 mL blood loss. However, it did appear to be under control. We irrigated and aspirated. We then applied some Surgicel and FloSeal. I placed a #19 round Yosef-Flower drain through the lateral port site into the subhepatic space, secured using 3-0 nylon suture. All ports were then removed. The fascia at the umbilicus closed using 0 PDS suture. The skin was reapproximated using 4-0 nylon suture. As a note, I did notice there was no significant acute edema from pancreatitis. I do not think the patient would tolerate an open operation well, nor did I think it would be any easier dissecting out the tima hepatis. Job ID: [id number] MTDD
[2022-12-11] MEDS: PIPERACILLIN/TAZOBACTAM 4.5 GM in DEXTROSE 5% 100 ML IV SCH ×3 (00:44→15:04)
--- NOTE | 2022-12-11 04:32 | Surgery Progress Note ---
Date of Service December 11, 2022 Assessment & Plan (1) S/P laparoscopic cholecystectomy: Plan: There is questionable bile in MIMI drain. Surgery yesterday revealed highly adherent gallbladder with severe chronic adhesions. Will obtain HIDA scan to check for bile leak and closely monitor the patient. Admission and Anticipated Discharge Date Admission Date: December 09, 2022 Supervising Physician Co-Signing Physician Notes Dr. Whittakerpatient draining bilious fluid This was expected by me as her operation was extremely difficult and I essentially left part of the proximal gallbladder near the cystic duct open with a large drain placed We will cancel the HIDA scan for now as the patient will likely not be able to lie flat We will leave the drain in place and likely she may have it in for 4 to 6 weeks even until her next endoscopy Subjective I was contacted by nurse for concern on bile in MIMI drain. She notes patient has been confused overnight, which daughter states has been ongoing at home. Patient is in bed, complains of severe pain from attempting to move. Physical Exam Physical Exam: Temp Pulse Resp BP Pulse Ox O2 Del Method O2 Flow Rate 36.6 C 91 H 20 102/68 92 Room Air 2 12/11/22 04:21 12/11/22 04:21 12/11/22 04:21 12/11/22 04:21 12/11/22 04:21 12/11/22 04:21 12/10/22 13:30 Gastrointestinal (Abdomen): drain with sang output and concern for bile 225cc output surgical dressings in place, no saturation on dressings Results & Data ([facility]) Vital Signs (Past 12 Hours) Vital Signs Temp Pulse Pulse Resp BP Pulse Ox O2 Del Method 12/11/22 02:26 36.5 C 95 H 18 107/64 91 Room Air 12/10/22 22:27 112 H 12/10/22 20:35 Room Air 12/10/22 22:04 37 C 108 H 18 120/63 91 Room Air 12/10/22 22:02 117 H 18 108/70 92 Room Air 12/10/22 19:32 36.6 C 110 H 18 128/76 93 Nasal Cannula 12/10/22 17:13 102 H PG Care Time/CCT Total # of Minutes Spent Total Time Spent with Patient: Total time spent is greater than 50% in coordination of care (as documented) at patient's floor/unit and/or counseling patient: Coding Level of Care Code None Diagnoses S/P laparoscopic cholecystectomy Z90.49
[2022-12-11] MEDS: LACTATED RINGER'S 1,000 ML IV SCH ×2 (04:56→15:04)
[2022-12-11] MEDS: HYDROmorphone INJ 0.5 MG/0.5 ML SYR IV PRN (05:24)
[2022-12-11 07:04] LABS: Hematocrit (blood only) 44.9 % (37.0-47.0); Hemoglobin 14.9 g/dl (12.0-16.0); Mean Corpuscular Hemoglobin 30.6 pg (25.0-34.0); Mean Corpuscular Hgb Conc 33.2 g/dL (32.0-36.0); Mean Corpuscular Volume 92.2 fL (80.0-100.0); Mean Platelet Volume 9.8 fL (9.4-12.4); Platelet Count 273 K/uL (130-400); RDW Coefficient of Variation 14.2 % (11.5-14.5); RDW Standard Deviation 47.8 fL (36.4-46.3); Red Blood Count 4.87 M/uL (4.20-5.40); White Blood Count 33.96 K/ul (4.8-10.8)
--- NOTE | 2022-12-11 07:14 | XRay Report ---
SINGLE VIEW CHEST CLINICAL HISTORY: Dyspnea. FINDINGS: An AP, portable, upright chest radiograph is compared to study dated 12/10/2022. Correlation is made with abdominal CT dated 12/09/2022. The cardiomediastinal silhouette is unremarkable noting a therosclerotic calcification of the thoracic aorta. There are low lung volumes. Consolidation is seen at the left lung base. Trace pleural effusions are suspected. No pneumothorax is seen. The skeletal structures are osteopenic. The bony thorax is grossly intact. A common bile duct stent projects over the right upper quadrant. IMPRESSION: 1. There are low lung volumes with bibasilar atelectasis. 2. Consolidation is again seen at the left lung base and could represent atelectasis versus pneumonia /aspiration pneumonitis. Clinical correlation will be required. 3. Suspect small pleural effusions. ACT 112: Negative or not required by law. Electronically signed by: Chidi Garay M.D. 12/11/2022 7:13 AM
[2022-12-11] MEDS ORDERED: XOPENEX/ATROVENT 1.25mg/0.5MG NEB COMBO NEB STA (07:19)
[2022-12-11 07:21] LABS: BUN Creatinine Ratio 20.8 (10-20); Calcium 7.1 mg/dl (8.5-10.1); Creatinine Clr Calc Pharmacy 46.9 ml/min; Est GFR (African American) 51.9 ml/min; Est GFR (Non-African American) 44.8 ml/min; Potassium 3.9 mmol/L (3.5-5.1)
[2022-12-11] MEDS ORDERED: LEVALBUTEROL 1.25MG/0.5ML NEB INH STA (07:23)
[2022-12-11] MEDS ORDERED: IPRATROPIUM BROMIDE NEB SOLN 0.02% 2.5 ML VIAL INH STA (07:24)
[2022-12-11 07:39] LABS: Albumin Level 3.3 gm/dl (3.4-5.0); Bilirubin Direct 4.3 mg/dl (0-0.2); Bilirubin,Total 6.4 mg/dl (0.2-1.0); Globulin 3.2 gm/dl (2.5-4.0); Phosphorus 2.4 mg/dl (2.5-4.9); Total Protein 6.5 gm/dl (6.0-8.3)
[2022-12-11] MEDS: INSULIN ASPART PER UNIT CHARGE SC SCH ×4 (07:43→20:51)
[2022-12-11] MEDS ORDERED: POTASSIUM PHOS 3 MMOL/1 ML INFUSION IV STA (08:29)
[2022-12-11] MEDS: DOCUSATE SODIUM/SENNA 50/8.6MG TAB PO SCH ×2 (08:49→20:46)
[2022-12-11] MEDS: methIMAzole 5 MG TABLET PO SCH (08:51)
[2022-12-11] MEDS: SERTRALINE HCL 50 MG TABLET PO SCH (08:52)
[2022-12-11] MEDS: LOSARTAN POTASSIUM 50 MG TAB PO SCH (08:55)
[2022-12-11 08:59] LABS: Partial Thromboplastin Ratio 1.1
--- NOTE | 2022-12-11 08:59 | Cardiology Consultation ---
Date of Consultation December 11, 2022 Assessment & Plan (1) Afib: (2) Acute pancreatitis: (3) S/P laparoscopic cholecystectomy: (4) Hypertension: Plan IMPRESSION: 72-year-old female without significant cardiac past medical history. x1 episode of asymptomatic PAF in the setting of acute pancreatitis s/p surgery on 12/10 lasting approx 20 min (21:14pm on telemetry) [id number] score- 3 (age, female, HTN) Maintaining NSR/ST, rates in the 90-100s. Patient appears clinically dry. PLAN: -Hold PARAMEDIC RN Losartan due to low BP readings. -Replace electrolytes as needed- potassium goal of 4.0 and mag goal of 2.0. -Increase metoprolol tartrate to 25 mg BID- will give an addition 12.5 mg this am. -PAF likely in the setting of acute illness- discussed jail AC, will hold off at starting at this time due to short duration of A-fib. Patient is maintaining NSR. Should further episodes of PAF be seen can consider AC with [facility]. Case discussed with Dr. Costello. Will follow. Supervising Physician Co-Signing Physician Notes I have personally seen and examined the patient along with Mago ISLAS. Patient feeling well from a cardiovascular perspective. Unaware of episodes of atrial fibrillation per denies palpitations or chest discomfort. The medical record and all available studies have been reviewed. Please refer to the note as detailed above for full PMH, PSH, social hx, family hx, active medication list and allergies. After discussion with Mago ISLAS, I fully agree with the assessment and plan as documented above. Increase beta-jorge luis therapy. Add intravenous heparin if patient experiences recurrent episodes of atrial fibrillation. Consider IV hydration. Replace electrolytes as indicated. History of Present Illness Reason for Consultation: New onset paroxysmal atrial fibrillation Requesting Physician: Lisbeth fox Attending Physician: Nitza Goldsmith MD History of Present Illness 72-year-old female who initially presented to [facility] emergency department due to abdominal discomfort and nausea and vomiting. CT of the abdomen abdomen and pelvis showed pancreatitis. Underwent ERCP and lap adele on 12/10. On telemetry patient was having episodes of SVT versus PAF-transferred to telemetry and was given IV Lopressor. Labs: Elevated WBC, 33.96. Hemoglobin normal. BUN elevated, 25. Serum creatinine 1.2. Magnesium previously low at 1.6. Potassium normal. Elevated AST/ALT. High-sensitivity troponin previously normal. TSH normal. EKG: Sinus tachycardia, 117 bpm (12/10) Echo: imaging technically limited however LVEF was normal at 65 to 70%. Tele: SR 90s- x1 episode of PAF on 12/10 at 2113- self converted to NSR on 12/10 at 2135 Upon entrance into the room patient resting in bed without acute concern. No chest pain, sob, palpitations. Seems to be somewhat of a poor historian- has periods of confusion as witnessed on exam and confirmed with nursing staff. States that she has had lower extremity swelling "for as long as she can remember". Seems to be at baseline today on exam, lymphedema-like quality to her lower extremities. Denies any recent falls, but does have vertigo at times. 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 Vertigo Allergies Allergy/AdvReac Type Severity Reaction Status Date / Time No Known Allergies Allergy Unverified 04/26/12 15:09 Home Medications Medication Instructions Recorded Confirmed Type losartan 50 mg tablet 50 mg PO DAILY 12/09/22 12/09/22 History methimazole 5 mg tablet 5 mg PO DAILY 12/09/22 12/09/22 History sertraline 50 mg tablet 50 mg PO DAILY 12/09/22 12/09/22 History solifenacin 10 mg tablet 10 mg PO DAILY 12/09/22 12/09/22 History Patient History Medical History (Updated 12/12/22 @ 11:14 by Radha Barnett MD, PhD) Depression History of claustrophobia Hypertension Multiple sclerosis Surgical History (Updated 12/11/22 @ 13:11 by Ruby Kimbrough RN) Hx laparoscopic cholecystectomy (12/10/22) Laparoscopic cholecystectomy with extensive lysis of adhesions, please add modifier for extensive difficulty and increased length of the procedure. No significant past surgical history Social History Smoking Status: Former smoker Second Hand Exposure: No; Hx Alcohol Use: No Hx Substance Use: No Preferred Language: Tongan Communication Ability: Effective Filer Helper Required: No Beliefs That Will Affect Care: None marital status: Single Current Living Situation: Significant Other current occupational status: retired Feels Safe at Home: Yes Assistive Devices: Scooter/Electric Scooter, Walker, Wheelchair and Other Review of Systems Review of Systems: All systems reviewed & are unremarkable except as noted in HPI & below Physical Exam Constitutional: WD/WN, vitals as above no acute distress Eyes: PERRL, conjunctivae normal, anicteric sclerae Neck: normal visual inspection and trachea midline Respiratory: normal respiratory effort, lungs clear to auscultation Cardiovascular: RRR, no murmur, no edema Heart Sounds: normal S1 and normal S2; no murmur Vessels: no JVD Extremities: + edema (chronic BLLE lymphedema, non pitting ) Gastrointestinal (Abdomen): Inspection/Auscultation: abdomen normal to inspection and normal bowel sounds; abdomen not distended and no abdominal edema Percussion/Palpation: abdomen soft; abdomen nontender Musculoskeletal: no cyanosis or clubbing, extremities motor strength 5/5 Psychiatric: Orientation: alert and oriented x 3 (intermittent periods of confusion) Results & Data ([facility]) Vital Signs (Past 12 Hours) Vital Signs Temp Pulse Pulse Resp BP Pulse Ox O2 Del Method 12/11/22 07:56 99 H 12/11/22 07:51 Nasal Cannula 12/11/22 07:16 37.0 C 100 H 24 97/63 L 93 Nasal Cannula 12/11/22 05:48 94 H 22 95/63 L 90 Room Air 12/11/22 05:25 92 H 135/71 12/11/22 04:21 36.6 C 91 H 20 102/68 92 Room Air 12/11/22 02:26 36.5 C 95 H 18 107/64 91 Room Air 12/10/22 22:27 112 H 12/10/22 22:04 37 C 108 H 18 120/63 91 Room Air 12/10/22 22:02 117 H 18 108/70 92 Room Air O2 Flow Rate 12/11/22 07:56 12/11/22 07:51 2 12/11/22 07:16 2.0 12/11/22 05:48 12/11/22 05:25 12/11/22 04:21 12/11/22 02:26 12/10/22 22:27 12/10/22 22:04 12/10/22 22:02 Laboratory Results Cardiac Enzymes 12/11/22 Range/Units 06:23 AST 86 H (13-39) U/L Coagulation 12/11/22 12/11/22 Range/Units 06:23 08:13 APTT Cancelled 30.0 CBC 12/10/22 12/11/22 Range/Units 13:07 06:23 WBC 32.82 H* 33.96 H* (4.8-10.8) K/ul RBC 4.77 4.87 (4.20-5.40) M/uL Hgb 14.4 14.9 (12.0-16.0) g/dl Hct 44.0 44.9 (37.0-47.0) % Plt Count 275 273 (130-400) K/uL Neut # (Auto) 27.84 H (1.40-6.50) K/uL Lymph # (Auto) 1.23 (1.2-3.4) K/uL Swain # (Auto) 3.29 H (0.11-0.59) K/uL Eos # (Auto) 0.01 (0-0.50) K/uL Baso # (Auto) 0.05 (0-0.2) K/uL Comprehensive Metabolic Panel 12/11/22 Range/Units 06:23 Sodium 138 (136-145) mmol/L Potassium 3.9 (3.5-5.1) mmol/L Chloride 103 (98-107) mmol/L Carbon Dioxide 26 (21-32) mmol/L BUN 25 H (6-23) mg/dl Creatinine 1.20 D (0.6-1.2) mg/dl Glucose 148 H (70-99(Fasting)) mg/dl Calcium 7.1 L (8.5-10.1) mg/dl Direct Bilirubin 4.3 H (0-0.2) mg/dl AST 86 H (13-39) U/L ALT 242 H (7-52) U/L Alkaline Phosphatase 162 H (34-104) U/L Total Protein 6.5 (6.0-8.3) gm/dl Albumin 3.3 L (3.4-5.0) gm/dl Intake and Output 12/10/22 12/11/22 12/11/22 22:59 06:59 14:59 Intake Total 722.667 / 4961.000 1408.333 / 4961.000 Output Total 435 / 465 Balance 722.667 / 4496.000 973.333 / 4496.000 Intake: IV 722.667 / 3161.000 1408.333 / 3161.000 Lactated Ringer's 1,000 ml @ 602.667 / 6363.295 1783.333 / 1791.000 100 mls/hr IV .Q10H VANDANA Rx#: [id number] Magnesium Sulfate / D5w 1 gm In 100 / 100 100 ml @ 50 mls/hr IV ONE ONE Rx#:[id number] Piperacillin/Tazobactam 4.5 gm 120 / 360 120 / 360 In Dextrose 5% 100 ml @ 30 mls/ hr IV Q8H VANDANA Rx#:[id number] Output: Drain Output 435 / 435 MIMI #1 435 / 435 Other: Other Intake Source sips sips (2) Acute pancreatitis Acute pancreatitis complication: unspecified Pancreatitis type: unspecified pancreatitis type Qualified Code(s): K85.90 - Acute pancreatitis without necrosis or infection, unspecified
[2022-12-11] MEDS ORDERED: POTASSIUM PHOSPHATE 9 MMOL in SODIUM CHLORIDE 0.9% 250 ML IV ONE (09:00)
[2022-12-11] MEDS ORDERED: METOPROLOL TARTRATE 25 MG TAB PO SCH (09:00)
[2022-12-11] MEDS ORDERED: METOPROLOL TARTRATE 25 MG TAB PO ONE (09:50)
--- NOTE | 2022-12-11 10:16 | Gastroenterology Progress Note ---
Date of Service December 11, 2022 Assessment & Plan (1) Acute pancreatitis: (2) Pancreatitis: (3) Cholangitis: Plan 1. Continue broad spectrum antibiotics. Will need for a minimum of 10 days. 2. Consider blood cx, though increasing leukocytosis likely reflective of stress of difficult surgery, severity of the cholecystitis. 3. Regarding diet, would defer to surgery. 4. Regarding increasing LFTs - again would suspect secondary to difficult surgery and severity of cholecysisitis (vs continued bile duct obstruction from stone or edema) but will continue to trend. 5. Will need an ERCP in 2 m for removal of CBD stent. Our office will call to arrange. Admission and Anticipated Discharge Date Admission Date: December 09, 2022 Supervising Physician Co-Signing Physician Notes Patient was seen and examined on 12/11 with ROSHAN Rowan whose note reflects our findings and plan. Patient with complicated cholecystectomy following ERCP. Persistent leukocytosis. On broad psectrum abx. Consider checking C diff (though no diarrhea per patient) vs related to leukomoid reaction. Follow LFTs closely though improving. Subjective 72 yr old female w HTN, hyperthyroidism (on methimazole), anxiety who was admitted w biliary pancreatitis and underwent a difficult lap->open choley and ERCP w sphincterotomy and balloon sweeping of the bile duct for stones and pus as well as placement of a 10 Fr by 8 cm plastic biliary CBD stent. This morning awake, alert, oriented though night time confusion noted. tells me she feels weak and "just (doesn't) feel like eating," did tolerate a few clear liquids. - Continues w leukocytosis on Zosyn. Afebrile. - Ox sat 92% on 2L O2. - Bile in MIMI drain but per Dr. Whittaker notes expected as small part of the gallbladder was left intact and drain will be left in place likely, until ERCP for stent removal is completed in 2m. - Mild tachycardia but improved from prior. Review of Systems Constitutional: + fatigue, + malaise and + anorexia; no fever and no chills Eyes: no problem reported Ear, Nose, Mouth, Throat: No hearing deficits, no ear pain. Respiratory: Denies any SOB Cardiovascular: Additional Comments: Denies any irregular heartbeats, CP or new edema Gastrointestinal: + mild/moderate diffuse abd pain reported, improved w pain meds. Genitourinary: no dysuria, no difficulty urinating and no urinary frequency Musculoskeletal: no back pain, no neck pain, no joint pain and no stiffness Integumentary: + jaundice, no rashes, no itching Neurologic: + generalized weakness and + confusion (reported last night. ); no tremor(s), no headache(s) and no memory loss Psychiatric: no problem reported Allergy / Immunological: no wheezing, no dyspnea and no rash Physical Exam Constitutional: + ill appearing, cooperative and + overweight Eyes: mild icterus; PEARLA ENMT: external ear and nose normal, oropharynx normal Neck: trachea midline, no thyromegaly Respiratory: normal respiratory effort, lungs clear to auscultation Cardiovascular: RRR, no murmur, no edema Gastrointestinal (Abdomen): Extensive dressings in place w/o soiling. Soft, moderately tender, non distended. MIMI w pink and yellow foamy liquid. Skin: Mild jaundice, no rashes or lesions. Neurologic: PERRL, EOMI, accommodation nl, no face palsy, no dysarthria Psychiatric: Affect: + flat affect (slightly) Lymphatic: no cervical or axillary lymphadenopathy Results & Data ([facility]) Vital Signs (Past 12 Hours) Vital Signs Temp Pulse Pulse Resp BP Pulse Ox O2 Del Method 12/11/22 09:02 36.7 C 99 H 16 91/58 L 92 Nasal Cannula 12/11/22 07:56 99 H 12/11/22 07:51 Nasal Cannula 12/11/22 07:16 37.0 C 100 H 24 97/63 L 93 Nasal Cannula 12/11/22 05:48 94 H 22 95/63 L 90 Room Air 12/11/22 05:25 92 H 135/71 12/11/22 04:21 36.6 C 91 H 20 102/68 92 Room Air 12/11/22 02:26 36.5 C 95 H 18 107/64 91 Room Air 12/10/22 22:27 112 H O2 Flow Rate 12/11/22 09:02 2 12/11/22 07:56 12/11/22 07:51 2 12/11/22 07:16 2.0 12/11/22 05:48 12/11/22 05:25 12/11/22 04:21 12/11/22 02:26 12/10/22 22:27 Laboratory Results T Bili 6.4, D Bli 4.3, AST 86, ALT 242. WBC 33, Hb 14.9, Hct 44.9, platelets 273, Na 138 K 3.9, Cl 103, CO2 26, BUN 24, Cr 1.2, glucose 148. Diagnostic Findings ERCP 12/11/22: - Choledocholithiasis was found. Complete removal was accomplished by biliary sphincterotomy and balloon extraction. - One plastic biliary stent was placed into the common bile duct. CTAP w IV 12/11/22: 1. Peripancreatic fat stranding is seen concerning for pancreatitis. 2. Prominence of the gallbladder may be reactive or less likely may represent acute cholecystitis. 3. Nonobstructive nephrolithiasis. US 12/11/22: 1. The gallbladder is distended and full of stones/sludge as detailed above. Findings are suspicious for acute cholecystitis. 2. The pancreas was not well visualized by ultrasound. CT findings remain consistent with pancreatitis. Correlate with clinical and laboratory findings. 3. Hepatic steatosis. 4. Trace perihepatic ascites. (1) Acute pancreatitis Acute pancreatitis complication: unspecified Pancreatitis type: unspecified pancreatitis type Qualified Code(s): K85.90 - Acute pancreatitis without necrosis or infection, unspecified
--- NOTE | 2022-12-11 16:36 | Hospitalist Progress Note ---
Date of Service December 11, 2022 Assessment & Plan (1) Acute pancreatitis: (2) Nausea and vomiting: Plan: Possible related to gallstone related pancreatitis Present on admission with abdominal pain that radiating to back associating with vomiting and nausea CT abd/pel showed peripancreatic fat stranding is seen concerning for pancreatitis. Prominence of the gallbladder may be reactive or less likely may represent acute cholecystitis. Lipase above 4000's on admission, Lipase 2960--> then 678 today Continue supportive care with IVF and pain management S/p Lap chol and ERCP with sphincterotomy and balloon sweeping of the bile duct for stones and pus with stent placement Continue pain control Continue clear liquid diet Acute cholangitis Transaminitis CT abd/pelvis showed prominence of the gallbladder may be reactive or less likely may represent acute adele Abdomen u/s showed gallbladder is distended and full of stones/sludge as detailed above. Findings are suspicious for acute cholecystitis. Elevated LFT with AST 313 and ALT 536 S/p Lap chol and ERCP with sphincterotomy and balloon sweeping of the bile duct for stones and pus with stent placement LFT continue trending down with AST 86, ALT 242 and Alk 162 WBC 33.9 Gastro and surgery on board Continue broad spectrum antibiotic with IV Zosyn Surgery plan to keep the MIMI drain for now Will need repeat ERCP in 2 month for stent removal Continue monitor CBC and liver enzymes Paroxysmal Afib SVT Currently on NSR Digoxin 0.250mg x1 given last night Metoprolol increased to 25mg BID ECHO showed normal LV wall function. EF 65 to 70 % cardio recommended to hold off anticoagulant since the afib was for a short duration. Continue monitor in Tele Elevated Glucose Possible related to pancreatitis recent Hba1c 6.1 continue monitor BS Electrolytes abnormality Phosp 2.4 today Phosphate replaced Continue monitor electrolytes HTN She has been hypotensive Losartan on hold Continue monitor BP Hyperthyroidism Continue Methimazole Anxiety Continue Sertraline Code status full code DVT px onon heparin subq BID A total of 50 minutes was spent with greater than 50% of that time personally viewing all current laboratory work and diagnostic imaging studies obtained in the ED. Additionally, I was able to view the patients past medication reconciliation and history with direct visualization in the patients chart. Included in the time above, a portion of that time was spent assessing the patient while discussing and collaborating with specialists, if necessary, and making medical decision making on treatment plan. Admission and Anticipated Discharge Date Admission Date: December 09, 2022 Subjective Pt was seen and examined for acute pancreatitis and cholangitis Lying in bed with no acute distress Pt said that that she feels sick Currently her abdominal pain is much better Last night she had a brief episode of Afib then back to NSR when i asked her about SOB, She answered " why we kept asking her about SOB when she has no SOB" Denies any chest pain, palpitation, dizziness and SOB Review of Systems Review of Systems: All systems reviewed & are unremarkable except as noted in Subjective Physical Exam Physical Exam: General- No acute distress Head- atraumatic Eyes- PERRL, EOMI, ENT- oropharynx clear Neck- supple, no JVD Lungs- clear to auscultation Heart- +tachycardia no murmur Abdomen- normal bowel sounds, soft, +tender Extremities- no calf tenderness Neuro- alert, oriented x 3; PERRL, EOMI; no facial palsy; no dysarthria Skin- warm & dry Results & Data Results & Data ([facility]) Vital Signs (Past 12 Hours) Vital Signs Temp Pulse Pulse Resp BP Pulse Ox O2 Del Method 12/11/22 15:05 36.5 C 100 H 18 102/67 96 Nasal Cannula 12/11/22 12:06 99 H 20 94/64 L 97 Nasal Cannula 12/11/22 11:08 36.5 C 98 H 18 86/50 L 94 Nasal Cannula 12/11/22 09:02 36.7 C 99 H 16 91/58 L 92 Nasal Cannula 12/11/22 07:56 99 H 12/11/22 07:51 Nasal Cannula 12/11/22 07:16 37.0 C 100 H 24 97/63 L 93 Nasal Cannula 12/11/22 05:48 94 H 22 95/63 L 90 Room Air 12/11/22 05:25 92 H 135/71 O2 Flow Rate 12/11/22 15:05 2 12/11/22 12:06 2 12/11/22 11:08 2 12/11/22 09:02 2 12/11/22 07:56 12/11/22 07:51 2 12/11/22 07:16 2.0 12/11/22 05:48 12/11/22 05:25 (1) Acute pancreatitis Acute pancreatitis complication: unspecified Pancreatitis type: unspecified pancreatitis type Qualified Code(s): K85.90 - Acute pancreatitis without necrosis or infection, unspecified (2) Nausea and vomiting Vomiting type: unspecified Qualified Code(s): R11.2 - Nausea with vomiting, unspecified
[2022-12-11] MEDS ORDERED: DIGOXIN 250 MCG in SYRINGE 9 ML IV STA ×2 (19:38→23:34)
[2022-12-11] MEDS ORDERED: STAT IV Infusion **Titration per Protocol STA (19:38)
[2022-12-11] MEDS ORDERED: AMIODARONE IV BOLUS & DRIP IV STA (19:38)
[2022-12-11] MEDS ORDERED: AMIODARONE / D5W 150 MG/100 ML BAG IV STA (19:38)
[2022-12-11] MEDS ORDERED: 0.2 MICRON FILTER SET 1 EACH IV STA (19:38)
[2022-12-11] MEDS ORDERED: MAGNESIUM SULFATE / D5W 1 GM/100 ML BAG IV ONE (19:39)
[2022-12-11] MEDS ORDERED: POTASSIUM CHLORIDE CRTAB 20 MEQ TABCR PO STA (19:41)
[2022-12-11] MEDS ORDERED: LACTATED RINGER'S 1,000 ML IV ONE (19:42)
--- NOTE | 2022-12-11 19:43 | Communication Note ---
Date of Service: December 11, 2022 Notified by RN of rapid A-fib, heart rate 1 70-1 80s, SBP 90s. Initiate IV amiodarone infusion.
[2022-12-11] MEDS ORDERED: AMIODARONE / D5W 360 MG/200 ML BAG IV ONE (19:48)
[2022-12-11] MEDS: METOPROLOL TARTRATE 25 MG TAB PO SCH (20:44)
[2022-12-11] MEDS: HEPARIN SOD 5,000 UNIT/0.5 ML VIAL SQ SCH (20:48)
[2022-12-11] MEDS ORDERED: methylPREDNISolone 20 MG in SYRINGE 0 ML IV STA (21:36)
[2022-12-11] MEDS ORDERED: ALBUMIN 25% 100 mL 25 GM/100 ML VIAL IV ONE (23:25)
[2022-12-11] MEDS ORDERED: LORazepam 0.5 MG TAB PO PRN (23:30)
[2022-12-12] MEDS: PIPERACILLIN/TAZOBACTAM 4.5 GM in DEXTROSE 5% 100 ML IV SCH ×3 (01:53→20:17)
[2022-12-12] MEDS: AMIODARONE / D5W 360 MG/200 ML BAG IV SCH ×2 (01:55→12:05)
--- NOTE | 2022-12-12 05:40 | Electrocardiogram Report ---
Test Reason : Blood Pressure : / mmHG Vent. Rate : 117 BPM Atrial Rate : 117 BPM P-R Int : 134 ms QRS Dur : 080 ms QT Int : 320 ms P-R-T Axes : 053 007 035 degrees QTc Int : 446 ms Sinus tachycardia Possible Left atrial enlargement Possible Inferior infarct (cited on or before 10-DEC-2022) Nonspecific ST and T wave abnormality Abnormal ECG When compared with ECG of 10-DEC-2022 04:56, Nonspecific T wave abnormality now evident in Anterior leads Confirmed by Sean Medina ([id number]) on 12/12/2022 5:40:24 AM Referred By: REFERRED SELF Confirmed By:Sean Medina
[2022-12-12 07:21] LABS: Mean Corpuscular Hemoglobin 29.9 pg (25.0-34.0); Mean Corpuscular Hgb Conc 33.3 g/dL (32.0-36.0); Mean Corpuscular Volume 89.7 fL (80.0-100.0); Mean Platelet Volume 10.2 fL (9.4-12.4); Platelet Count 221 K/uL (130-400); RDW Coefficient of Variation 14.3 % (11.5-14.5); Red Blood Count 4.35 M/uL (4.20-5.40); White Blood Count 22.36 K/ul (4.8-10.8)
--- NOTE | 2022-12-12 07:25 | XRay Report ---
XR chest 1V portable CLINICAL HISTORY: sob TECHNIQUE: Single frontal radiograph of the chest was obtained. Comparison: Comparison is made to chest radiograph 12/11/2022 FINDINGS: No lines and tubes are seen. The cardiomediastinal silhouette is normal. Lungs are underinflated with airspace opacity at the lung bases. Trace left pleural effusion cannot be excluded. IMPRESSION: 1. Underinflated lungs with airspace opacities in the lung bases likely representing atelectasis, goddard perimposed pneumonia cannot be entirely excluded. 2. Trace left pleural effusion. ACT 112: Negative or not required by law. Electronically signed by: Yury Zamora M.D. 12/12/2022 7:23 AM
[2022-12-12 07:42] LABS: Albumin Level 3.3 gm/dl (3.4-5.0); BUN Creatinine Ratio 21.7 (10-20); Bilirubin,Total 3.7 mg/dl (0.2-1.0); Calcium 6.6 mg/dl (8.5-10.1); Est GFR (African American) 25.4 ml/min; Est GFR (Non-African American) 21.9 ml/min; Globulin 3.3 gm/dl (2.5-4.0); Magnesium 2.2 mg/dl (1.7-2.4); Phosphorus 2.6 mg/dl (2.5-4.9); Potassium 4.1 mmol/L (3.5-5.1); Total Protein 6.6 gm/dl (6.0-8.3)
--- NOTE | 2022-12-12 07:53 | Cardiology Progress Note ---
Date of Service December 12, 2022 Assessment & Plan (1) Afib: (2) Acute pancreatitis: (3) S/P laparoscopic cholecystectomy: (4) Hypertension: Plan IMPRESSION: 72-year-old female without significant cardiac past medical history. Ongoing episodes of PAF with RVR- the longest lasting about 6-7 hours over night. [id number] score- 3 (age, female, HTN) Converted to NSR/ST around 1-2 am, rates in the 90-100s. Patient appears clinically dry- renal function declined over night. PLAN: -Hold [employer] Losartan due to low BP readings and renal dysfunction. -Agree with IVF, managed by primary team. -Replace electrolytes as needed- potassium goal of 4.0 and mag goal of 2.0. -Increase metoprolol tartrate to 25 mg Q6hr. -Will continue IV amiodarone infusion for now. -Verified with GI and General surgery- Due to ongoing PAF will start IV Heparin NO bolus for stroke prevention. Case discussed with Dr. Costello. Will follow. Admission and Anticipated Discharge Date Admission Date: December 09, 2022 Supervising Physician Co-Signing Physician Notes I have personally seen and examined the patient along with Mago ISLAS. Patient feeling well from a cardiovascular perspective. Recurrent atrial fibrillation recorded overnight prompting addition of IV amiodarone and intravenous heparin. Unaware of episodes of atrial fibrillation. Denies palpitations or chest discomfort. Daughter present at bedside. The medical record and all available studies have been reviewed. Please refer to the note as detailed above for full PMH, PSH, social hx, family hx, active medication list and allergies. After discussion with Mago ISLAS, I fully agree with the assessment and plan as documented above. Increase beta-jorge luis therapy. Continue IV amiodarone for time being. Agree with intravenous hydration. If episodes of atrial fibrillation resolve over the next 24-48 hours, amiodarone will be discontinued. Subjective 72-year-old female new onset paroxysmal A-fib in setting of acute pancreatitis and cholangitis. 12/10: Episode of PAF status post surgery on 12/10 lasting approximately 20 minutes around 20 1:14 PM on telemetry. Patient converted to sinus rhythm spontaneously. 12/11: No further episodes of PAF seen on telemetry. Metoprolol tartrate increased to 25 mg twice daily. Did not start anticoagulation at that time due to brief duration of A-fib. Losartan held for low blood pressure readings At approximately 7:45 PM patient went into rapid A-fib with heart rates in the 170s to 180s. IV amiodarone started per primary team. Was also given x1 dose of Digoxin. 12/12: Lab work indicated worsening renal function with a creatinine of 2.17. Sodium mildly low. Tele: Ongoing episodes of PAF with rates as high as 160s. Currently maintaining NSR- converted around 1-2 am. Upon entrance into the room patient resting in bed. Had confusion over night- moved to a room closer to the nursing station. Remains asymptomatic with PAF. No chest pain, sob, or palpitations. States that she feels dry. No lightheadedness or dizziness. Review of Systems Review of Systems: All systems reviewed & are unremarkable except as noted in HPI & below Physical Exam Constitutional: WD/WN, vitals as above no acute distress Eyes: PERRL, conjunctivae normal, anicteric sclerae Neck: normal visual inspection and trachea midline Respiratory: normal respiratory effort, lungs clear to auscultation Cardiovascular: RRR, no murmur, no edema Heart Sounds: normal S1 and normal S2; no murmur Vessels: no JVD Extremities: + edema (chronic BLLE lymphedema, non pitting ) Gastrointestinal (Abdomen): Inspection/Auscultation: abdomen normal to inspection and normal bowel sounds; abdomen not distended and no abdominal edema Percussion/Palpation: abdomen soft; abdomen nontender Musculoskeletal: no cyanosis or clubbing, extremities motor strength 5/5 Psychiatric: Orientation: alert and oriented x 3 (intermittent periods of confusion) Results & Data ([facility]) Vital Signs (Past 12 Hours) Vital Signs Temp Pulse Pulse Resp BP Pulse Ox O2 Del Method 12/12/22 07:00 108 H 12/12/22 03:29 36.8 C 102 H 20 98/62 L 90 Room Air 12/11/22 22:02 134 H 12/12/22 02:00 127 H 137/65 12/11/22 23:47 135 H 12/11/22 23:24 36.7 C 68 18 84/55 L 91 Room Air 12/11/22 20:32 36.6 C 158 H 18 95/67 L 94 Nasal Cannula O2 Flow Rate 12/12/22 07:00 12/12/22 03:29 12/11/22 22:02 12/12/22 02:00 12/11/22 23:47 12/11/22 23:24 12/11/22 20:32 2 Laboratory Results Cardiac Enzymes 12/12/22 Range/Units 06:32 AST 31 (13-39) U/L CBC 12/12/22 Range/Units 06:32 WBC 22.36 H (4.8-10.8) K/ul RBC 4.35 (4.20-5.40) M/uL Hgb 13.0 (12.0-16.0) g/dl Hct 39.0 (37.0-47.0) % Plt Count 221 (130-400) K/uL Comprehensive Metabolic Panel 12/12/22 Range/Units 06:32 Sodium 133 L (136-145) mmol/L Potassium 4.1 (3.5-5.1) mmol/L Chloride 101 (98-107) mmol/L Carbon Dioxide 20 L (21-32) mmol/L BUN 47 H D (6-23) mg/dl Creatinine 2.17 H D (0.6-1.2) mg/dl Glucose 190 H (70-99(Fasting)) mg/dl Calcium 6.6 L (8.5-10.1) mg/dl AST 31 (13-39) U/L ALT 119 H (7-52) U/L Alkaline Phosphatase 104 (34-104) U/L Total Protein 6.6 (6.0-8.3) gm/dl Albumin 3.3 L (3.4-5.0) gm/dl Intake and Output 12/11/22 12/12/22 12/12/22 22:59 06:59 14:59 Intake Total 1108.334 / 2101.334 620 / 2101.334 87.953 / 87.953 Output Total 250 / 665 205 / 665 Balance 858.334 / 1436.334 415 / 1436.334 87.953 / 87.953 Intake: IV 1108.334 / 1901.334 420 / 1901.334 87.953 / 87.953 ALBUMIN 25% 100 mL 25 gm In 100 100 / 100 ml @ 50 mls/hr IV ONE ONE Rx#: [id number] Amiodarone / D5w 150 mg In 100 100 / 100 ml @ 600 mls/hr IV NOW STA Rx#: [id number] Amiodarone / D5w 360 mg In 200 200 / 200 87.953 / 87.953 ml @ 0.5 MG/MIN 16.667 mls/hr IV .Q12H VANDANA Rx#:[id number] Lactated Ringer's 1,000 ml @ 788.334 / 788.334 200 mls/hr IV .Q5H ONE Rx#: [id number] Magnesium Sulfate / D5w 1 gm In 100 / 100 100 ml @ 50 mls/hr IV ONE ONE Rx#:[id number] Piperacillin/Tazobactam 4.5 gm 120 / 360 120 / 360 In Dextrose 5% 100 ml @ 30 mls/ hr IV Q8H [facility] Rx#:[id number] Oral 200 / 200 Output: Urine 50 / 150 100 / 150 Urine Amount (Catheter) 35 / 35 External 35 / 35 Drain Output 200 / 480 70 / 480 MIMI #1 200 / 480 70 / 480 Other: # Unmeasured Voids 1 Weight 96.2 kg Weight Measurement Method Built in [facility] (2) Acute pancreatitis Acute pancreatitis complication: unspecified Pancreatitis type: unspecified pancreatitis type Qualified Code(s): K85.90 - Acute pancreatitis without necrosis or infection, unspecified
[2022-12-12] MEDS: INSULIN ASPART PER UNIT CHARGE SC SCH ×4 (08:51→21:35)
[2022-12-12] MEDS: DOCUSATE SODIUM/SENNA 50/8.6MG TAB PO SCH ×2 (09:00→21:40)
[2022-12-12] MEDS: METOPROLOL TARTRATE 25 MG TAB PO SCH ×3 (09:00→18:12)
[2022-12-12] MEDS: SERTRALINE HCL 50 MG TABLET PO SCH (09:00)
[2022-12-12] MEDS: methIMAzole 5 MG TABLET PO SCH (09:00)
[2022-12-12] MEDS ORDERED: STAT IV STA (09:01)
[2022-12-12] MEDS ORDERED: Heparin IV Adult Wt-Based Standard *NO* Bolus Protocol IV STA (09:05)
[2022-12-12] MEDS ORDERED: CALCIUM GLUCONATE 10% 1,000 MG in DEXTROSE 5% 50 ML IV ONE (09:15)
[2022-12-12] MEDS: HEPARIN SOD 5,000 UNIT/0.5 ML VIAL SQ SCH (09:26)
--- NOTE | 2022-12-12 09:39 | Surgery Progress Note ---
Date of Service December 12, 2022 Assessment & Plan (1) S/P laparoscopic cholecystectomy: Plan: Patient clinically looks better this morning-sitting up in bed having clear liquids Less jaundiced She continues to have bilious output from her MIMI drain-70cc over 6 hours-we will monitor output Liver function studies have improved and her white blood cell count is down Continue IV antibiotics Her creatinine has gone up significantly most likely secondary to her fluid s tatus We will discuss this with the medical team as she is at risk for pulmonary edema It may be that she would benefit from a larger stent but the patient did not tolerate the initial procedures well We will monitor her bilious output She will have to keep the drain for weeks Admission and Anticipated Discharge Date Admission Date: December 09, 2022 Results & Data ([facility]) Vital Signs (Past 12 Hours) Vital Signs Temp Pulse Pulse Resp BP Pulse Ox O2 Del Method 12/12/22 08:15 36.5 C 95 H 18 118/72 95 Nasal Cannula 12/12/22 07:00 108 H 12/12/22 03:29 36.8 C 102 H 20 98/62 L 90 Room Air 12/11/22 22:02 134 H 12/12/22 02:00 127 H 137/65 12/11/22 23:47 135 H 12/11/22 23:24 36.7 C 68 18 84/55 L 91 Room Air O2 Flow Rate 12/12/22 08:15 1.5 12/12/22 07:00 12/12/22 03:29 12/11/22 22:02 12/12/22 02:00 12/11/22 23:47 12/11/22 23:24 PG Care Time/CCT Total # of Minutes Spent Total Time Spent with Patient: Total time spent is greater than 50% in coordination of care (as documented) at patient's floor/unit and/or counseling patient: Coding Level of Care Code None Diagnoses S/P laparoscopic cholecystectomy Z90.49
[2022-12-12 10:26] LABS: Partial Thromboplastin Ratio 1.2; Partial Thromboplastin Time 33.3 Seconds (21.0-31.0)
[2022-12-12] MEDS: HEPARIN SODIUM/DEXTROSE 25,000 UNITS/500 ML BAG IV SCH (10:58)
[2022-12-12] MEDS: SODIUM CHLORIDE 0.9% 1000ML 1,000 ML IV SCH (10:59)
--- NOTE | 2022-12-12 11:18 | Nephrology Consultation ---
Date of Consultation December 12, 2022 Assessment & Plan (1) SAMMY (acute kidney injury): baseilne creatinine 0.8; Stage 2 SAMMY bordering on oliguria and bordering on stage 3 ischemic ATN multifactorial including IV contrast, poor po intake prior to admission (presenting s.g. on UA > 1045), continued losartan in setting of above, sepsis from pancreatitis/cholecystitis, then compoounded by poor renal perfusion w/ ongoing pAF and hypotension. there will be some delay in creatinine levels relative to clinical events so expect it given hemodynamics past 24 hrs to worsen before it stabilizes. chemistries and volume status ok on exam and per CXR this am though I worry she feels more dyspneic today -cont NS current rate for now -repeat bmp daily -strict I/O -no indication for dialysis currently but cannot rule out need to discuss this admission -repeat UA -low threshold to repeat renal u/s if oliguria emerges or creatinine continues to worsen -ensure complete I/O History of Present Illness Reason for Consultation: SAMMY Requesting Physician: Dr Goldsmith Attending Physician: Nitza Goldsmith MD History of Present Illness 72 y/o F whom I'm asked to see for SAMMY was admitted 12/09 w/ gallstone pancreatitis. PMH includes HTN, hyperthyroid, depression, urge incontinence. She had IV con on admission imaging, remarkable for pancreatitis, acute cholecystitis, BL nonobstructing stones. She underwent laparascopic cholecystectomy w/ ERCP, sphincterotomy, stent placement on 12/10 and developed paroxysmal postoperative atrial fibrillation which has occurred daily ever since w/ HR >150 during these episodes. Afib is being managed with IV amiodarone and heparin as well as metoprolol. Her OP losartan was last given on 12/10. Through most of yesterday, her SBP was in 80-90s. She is on zosyn; her lipase and LFTs have trended down nicely since surgery. Her creatinine was 0.8 on presentation, climbed to 1.2 on 12/11, up to 2.2 today. She is currently on NS at 80 mL/hr. CXR yesterday w/o pulmonary edema. Her drain is putting out 400-500 mL daily. Her urine output may be incompletely documented; RN today not concenred for oliguria. pt states uncontrolled pain is imporved in abdomen. some dsypena stable per pt. no n/v; no edema; ongoing BLUE weakness. no new/worrisome voiding sx. Allergies Allergy/AdvReac Type Severity Reaction Status Date / Time No Known Allergies Allergy Unverified 04/26/12 15:09 Home Medications Medication Instructions Recorded Confirmed Type losartan 50 mg tablet 50 mg PO DAILY 12/09/22 12/09/22 History methimazole 5 mg tablet 5 mg PO DAILY 12/09/22 12/09/22 History sertraline 50 mg tablet 50 mg PO DAILY 12/09/22 12/09/22 History solifenacin 10 mg tablet 10 mg PO DAILY 12/09/22 12/09/22 History Patient History Medical History (Updated 12/12/22 @ 18:15 by Radha Barnett MD, PhD) Ambulatory dysfunction d/t MS Depression History of claustrophobia Hypertension Multiple sclerosis Surgical History (Updated 12/12/22 @ 18:15 by Radha Barnett MD, PhD) Hx laparoscopic cholecystectomy (12/10/22) Laparoscopic cholecystectomy with extensive lysis of adhesions, please add modifier for extensive difficulty and increased length of the procedure. Social History Smoking Status: Former smoker Second Hand Exposure: No; Hx Alcohol Use: No Hx Substance Use: No Preferred Language: [place] Communication Ability: Effective Float Operator Required: No Beliefs That Will Affect Care: None marital status: Single Current Living Situation: Significant Other current occupational status: retired Feels Safe at Home: Yes Assistive Devices: Scooter/Electric Scooter, Walker, Wheelchair and Other Review of Systems Review of Systems: All systems reviewed & are unremarkable except as noted in HPI & below Physical Exam Constitutional: well developed and well nourished Eyes: EOM intact bilaterally ENMT: Ears: no external ear abnormality Nose: no external nose abnormality Mouth: + dry oral mucous membranes Neck: no nuchal rigidity Respiratory: normal respiratory effort Auscultation: + diminished lung sounds (markedly) Cardiovascular: Rate/Rhythm: regular rate and regular rhythm Extremities: no edema Gastrointestinal (Abdomen): Inspection/Auscultation: normal bowel sounds Percussion/Palpation: abdomen soft; abdomen nontender Musculoskeletal: Extremities: + abnormal strength (cannot situp w/o asst; BLE weak) Skin: no rashes, warm and dry Neurologic: cmcurdy, fluent speech, no tremor Psychiatric: Orientation: oriented x 3 Results & Data ([facility]) Vital Signs (Past 12 Hours) Vital Signs Temp Pulse Pulse Resp BP Pulse Ox O2 Del Method 12/12/22 08:15 36.5 C 95 H 18 118/72 95 Nasal Cannula 12/12/22 07:00 108 H 12/12/22 03:29 36.8 C 102 H 20 98/62 L 90 Room Air 12/12/22 02:00 127 H 137/65 12/11/22 23:47 135 H 12/11/22 23:24 36.7 C 68 18 84/55 L 91 Room Air O2 Flow Rate 12/12/22 08:15 1.5 12/12/22 07:00 12/12/22 03:29 12/12/22 02:00 12/11/22 23:47 12/11/22 23:24 Laboratory Results 12/12/22 06:32 12/12/22 06:32 Diagnostic Findings Abdomen/Pelvis CT12/09/22 14:22 CT abd pelvis IV con only, CT lumbar spine w con CLINICAL HISTORY: Abd/back pain TECHNIQUE: Helical axial images of the abdomen and pelvis were obtained and displayed. Automated dose lowering techniques and/or adjustment according to patient size were utilized for this exam. Dedicated images of the lumbar spine were obtained. This exam was performed with intravenous contrast. CT DOSE: 735.87 mGy.cm COMPARISON: None available at the time of this dictation. FINDINGS: Lower chest: Bibasilar atelectasis versus scarring is seen. Liver: Unremarkable. No focal lesions are seen. Gallbladder and biliary tree: The gallbladder is distended. Gallbladder wall measures up to 3 mm. No intra- or extrahepatic biliary ductal dilation. Pancreas: Prominent peripancreatic stranding is seen. No abnormal enhancement is seen to suggest necrosis. No discrete fluid collections are seen. Spleen: Unremarkable. Adrenals: Unremarkable. Kidneys and ureters: Lobular appearance of the kidneys. Nonobstructive stones are seen bilaterally. Subcentimeter hypodensities in the kidneys may represent cysts but are too small to characterize. Bladder: Unremarkable. Reproductive organs: Unremarkable. Bowel: The appendix is normal. A hiatal hernia is seen. Lymph nodes Retroperitoneal: Unremarkable. Pelvic: Unremarkable. Mesenteric: Unremarkable. Peritoneum: Prominent fat stranding and a small amount of peritoneal fluid is seen in the upper abdomen. Vessels: Atherosclerotic calcifications are seen. Abdominal wall: Unremarkable. Bones: Mild degenerative changes without evidence of acute fracture. IMPRESSION: 1. Peripancreatic fat stranding is seen concerning for pancreatitis. 2. Prominence of the gallbladder may be reactive or less likely may represent acute cholecystitis. 3. Nonobstructive nephrolithiasis. cxr 12/11 1. Underinflated lungs with airspace opacities in the lung bases likely representing atelectasis, superimposed pneumonia cannot be entirely excluded. 2. Trace left pleural effusion.
[2022-12-12 12:21] LABS: HBSAG NON-REACTIVE (NON-REACTIVE); Hepatitis A Antibody IgM NON-REACTIVE (NON-REACTIVE); Hepatitis B Core Antibody IgM NON-REACTIVE (NON-REACTIVE)
--- NOTE | 2022-12-12 17:30 | Hospitalist Progress Note ---
Date of Service December 12, 2022 Assessment & Plan (1) Acute pancreatitis: (2) Nausea and vomiting: Plan: Possible related togallstone related pancreatitis Present on admission with abdominal pain that radiating to back associating with vomiting and nausea CT abd/pel showedperipancreatic fat stranding is seen concerning for pancreatitis. Prominence of the gallbladder may be reactive or less likely may represent acute cholecystitis. Lipase above 4000's on admission, Lipase 2960--> then 678 Continue supportive care with IVF and pain management S/p Lap chol and ERCPwith sphincterotomy and balloon sweeping of the bile duct for stones and puswith stent placement Continue pain control Continue clear liquid diet Clinically improved Acute cholangitis Transaminitis CT abd/pelvis showed prominence of the gallbladder may be reactive or less likely may represent acute adele Abdomen u/s showedgallbladder is distended and full of stones/sludge as detailed above. Findings are suspicious for acute cholecystitis. Elevated LFT with AST 313 and ALT 536 S/p Lap chol and ERCPwith sphincterotomy and balloon sweeping of the bile duct for stones and puswith stent placement LFT continue trending down with AST 31, ALT 119 and Alk 104 WBC 22.3 K today Gastro and surgery on board Continue broad spectrum antibiotic with IV Zosyn Surgery plan to keep the MIMI drain for now Will need repeat ERCP in 2 month for stent removal Continue monitor CBC and liver enzymes Paroxysmal Afib SVT brief episode of Afib last night. Currently on NSR Pt was starting on IV amiodarone drip cardiology on board Metoprolol increased to 25mg QID ECHO showed normal LV wall function. EF 65 to 70 % She was starting on IV heparin drip Continue monitor in Tele ASMMY Creatinine increased to 2.17 Starting on gentle IV fluid Nephrology on board continue to hold Losartan avoid nephrotoxic agents Continue monitor BMP Elevated Glucose Possible related to pancreatitis recent Hba1c 6.1 continue monitor BS Electrolytes abnormality Phosp 2.6 today Continue monitor electrolytes HTN She was hypotensive yesterday BP improved Losartan on hold Continue monitor BP Hyperthyroidism Continue Methimazole Anxiety Continue Sertraline Code status full code DVT px currently on heparin drip A total of 50 minutes was spent with greater than 50% of that time personally viewing all current laboratory work and diagnostic imaging studies obtained in the ED. Additionally, I was able to view the patients past medication reconciliation and history with direct visualization in the patients chart. Included in the time above, a portion of that time was spent assessing the patient while discussing and collaborating with specialists, if necessary, and making medical decision making on treatment plan. Admission and Anticipated Discharge Date Admission Date: December 09, 2022 Subjective Pt was seen and examined for postop follow and Afib Sitting in bed with no acute distress Pt said that she feels alot better this morning She said that she is not having any pain and her breathing is much better last night telemonitor showed Afib with RVR She denies any chest pain, palpitation, dizziness and SOB Review of Systems Review of Systems: All systems reviewed & are unremarkable except as noted in Subjective Physical Exam Physical Exam: General- No acute distress Head- atraumatic Eyes- PERRL, EOMI, ENT- oropharynx clear Neck- supple, no JVD Lungs- clear to auscultation Heart- +tachycardia no murmur Abdomen- normal bowel sounds, soft, +tender Extremities- no calf tenderness Neuro- alert, oriented x 3; PERRL, EOMI; no facial palsy; no dysarthria Skin- warm & dry Results & Data Results & Data ([facility]) Vital Signs (Past 12 Hours) Vital Signs Temp Pulse Pulse Resp BP Pulse Ox O2 Del Method 12/12/22 15:42 36.6 C 85 16 121/74 95 Nasal Cannula 12/12/22 08:15 36.5 C 95 H 18 118/72 95 Nasal Cannula 12/12/22 07:00 108 H O2 Flow Rate 12/12/22 15:42 2 12/12/22 08:15 1.5 12/12/22 07:00 (1) Acute pancreatitis Acute pancreatitis complication: unspecified Pancreatitis type: unspecified pancreatitis type Qualified Code(s): K85.90 - Acute pancreatitis without necrosis or infection, unspecified (2) Nausea and vomiting Vomiting type: unspecified Qualified Code(s): R11.2 - Nausea with vomiting, unspecified
[2022-12-12 18:06] LABS: Partial Thromboplastin Ratio 1.6; Partial Thromboplastin Time 42.7 Seconds (21.0-31.0)
[2022-12-13] MEDS: AMIODARONE / D5W 360 MG/200 ML BAG IV SCH ×2 (00:19→12:23)
[2022-12-13] MEDS: METOPROLOL TARTRATE 25 MG TAB PO SCH ×4 (00:26→21:54)
[2022-12-13] MEDS: PIPERACILLIN/TAZOBACTAM 4.5 GM in DEXTROSE 5% 100 ML IV SCH ×2 (01:56→14:59)
[2022-12-13 01:59] LABS: Partial Thromboplastin Ratio 1.6; Partial Thromboplastin Time 44.3 Seconds (21.0-31.0)
[2022-12-13] MEDS: SODIUM CHLORIDE 0.9% 1000ML 1,000 ML IV SCH (04:38)
[2022-12-13] MEDS: HEPARIN SODIUM/DEXTROSE 25,000 UNITS/500 ML BAG IV SCH (04:38)
--- NOTE | 2022-12-13 05:58 | Electrocardiogram Report ---
Test Reason : Blood Pressure : / mmHG Vent. Rate : 171 BPM Atrial Rate : 159 BPM P-R Int : 000 ms QRS Dur : 072 ms QT Int : 280 ms P-R-T Axes : 000 -03 -07 degrees QTc Int : 472 ms Atrial fibrillation with rapid ventricular response Inferior infarct (cited on or before 10-DEC-2022) Abnormal ECG When compared with ECG of 10-DEC-2022 21:41, Atrial fibrillation has replaced Sinus rhythm Confirmed by Sean Medina ([id number]) on 12/13/2022 5:58:21 AM Referred By: REFERRED SELF Confirmed By:Sean Medina
[2022-12-13] MEDS: LACTATED RINGER'S 1,000 ML IV SCH ×2 (06:32→12:23)
[2022-12-13 06:51] LABS: Base Excess VBG -5.9 mEq/L; HCO3 VBG 21 mmol/L; Oxygen Saturation VBG 60.1 %; PCO2 VBG 44 mmHg (38-50); PO2 VBG 31 mmHg; pH VBG 7.28 (7.36-7.41)
[2022-12-13 06:57] LABS: Hematocrit (blood only) 36.8 % (37.0-47.0); Hemoglobin 12.4 g/dl (12.0-16.0); Mean Corpuscular Hemoglobin 29.9 pg (25.0-34.0); Mean Corpuscular Hgb Conc 33.7 g/dL (32.0-36.0); Mean Corpuscular Volume 88.7 fL (80.0-100.0); Mean Platelet Volume 9.8 fL (9.4-12.4); Platelet Count 214 K/uL (130-400); RDW Coefficient of Variation 13.8 % (11.5-14.5); RDW Standard Deviation 45.2 fL (36.4-46.3); Red Blood Count 4.15 M/uL (4.20-5.40); White Blood Count 22.44 K/ul (4.8-10.8)
[2022-12-13 07:15] LABS: Albumin Globulin Ratio 0.9 (0.9-2); BUN Creatinine Ratio 20.3 (10-20); Bilirubin,Total 2.4 mg/dl (0.2-1.0); Calcium 6.3 mg/dl (8.5-10.1); Creatinine Clr Calc Pharmacy 18.2 ml/min; Est GFR (African American) 15.6 ml/min; Est GFR (Non-African American) 13.4 ml/min; Globulin 3.3 gm/dl (2.5-4.0); Potassium 3.4 mmol/L (3.5-5.1); Total Protein 6.3 gm/dl (6.0-8.3)
[2022-12-13] MEDS: INSULIN ASPART PER UNIT CHARGE SC SCH ×4 (07:22→21:55)
--- NOTE | 2022-12-13 07:30 | Cardiology Progress Note ---
Date of Service December 13, 2022 Assessment & Plan (1) Afib: (2) Acute pancreatitis: (3) S/P laparoscopic cholecystectomy: (4) Hypertension: Plan IMPRESSION: 72-year-old female without significant cardiac past medical history. Admitted for acute pancreatitis and cholecystitis. S/p lap Cholecystectomy and ERCP. Clinical decline over night. During admission found to have new onset PAF in the setting of acute illness. Now on amiodarone, no PAF noted over night. [id number] score- 3 (age, female, HTN) Tele: NSR with PACs 80s. PLAN: -Hold [employer] Losartan due to low BP readings and SAMMY. Appreciate nephrology input regarding SAMMY management. -Tomlinson placed for accurate I&O -IVF managed by primary team and nephrology. -Replace electrolytes as needed- potassium goal of 4.0 and mag goal of 2.0. -Continue metoprolol tartrate to 25 mg Q6hr. -Will continue IV amiodarone infusion for now. -Heparin stopped this am due to decline in clinical course as well as large output from MIMI. GI and Gen surgery on board. Case discussed with Dr. Costello. Will follow. Admission and Anticipated Discharge Date Admission Date: December 09, 2022 Supervising Physician Co-Signing Physician Notes I have personally seen and examined the patient along with Mago ISLAS. Progressive renal failure and acidosis noted per a.m. labs. Patient appears uncomfortable and tachypneic. Oxygen saturation 95% on 2 L. Repeat chest x-ray without evidence of pulmonary edema. Rhythm stable on telemetry without sustained episodes of atrial fibrillation. Nursing reporting positive pressure in MIMI drain. Patient uinaware of episodes of atrial fibrillation. Denies palpitations or chest discomfort. The medical record and all available studies have been reviewed. PE: VSS. GEN: ill appearing. AAO x3. Heart: Regular rhythm, normal S1-S2. No murmur. Lungs: Diminished breath sounds at the bases bilateral. No rales, rhonchi, or wheeze. Extremities: No edema. After discussion with Mago ISLAS, I fully agree with the assessment and plan as documented above. Continue beta-jorge luis therapy and IV amiodarone for time being. Hold IV heparin. Agree with intravenous hydration and Tomlinson catheter placement. Chest x-ray without evidence of pulmonary edema. Appreciate nephrology input. Addendum: Contacted by nursing in the afternoon due to transient sinus bradycardia in the 40s. Recommend discontinuation of intravenous amiodarone. Reduce metoprolol to 25 mg 3 times daily. Continue telemetry monitoring. Subjective 72-year-old female new onset paroxysmal A-fib in setting of acute pancreatitis and cholangitis. 12/10: Episode of PAF status post surgery on 12/10 lasting approximately 20 minutes around 20 1:14 PM on telemetry. Patient converted to sinus rhythm spontaneously. 12/11: No further episodes of PAF seen on telemetry. Metoprolol tartrate increased to 25 mg twice daily. Did not start anticoagulation at that time due to brief duration of A-fib. Losartan held for low blood pressure readings At approximately 7:45 PM patient went into rapid A-fib with heart rates in the 170s to 180s. IV amiodarone started per primary team. Was also given x1 dose of Digoxin. 12/12: Lab work indicated worsening renal function with a creatinine of 2.17. Sodium mildly low.IV fluids started per primary team. Nephrology consulted. Tele: Ongoing episodes of PAF with rates as high as 160s. Maintaining NSR- converted around 1-2 am. 12/13: Upon entrance into the room patient sitting up in bed- notes worsening shortness of breath. Difficultly taking a deep breath in. No chest pain or palpitations. Complains of dry mouth. Periods of confusion per nursing staff. Patient seems more forgetful. Per nursing- output is minimal, ~505 cc of urine out over the last 24 hours. Tomlinson to be placed per nephrology. ~900 cc out from the MIMI. Tele: SR with PACs- 80 bpm. Labs: Worsening serum creatinine (2.17>>3.25) baseline ~0.8. CXR today: 1. Slight increase in small bilateral pleural effusions and associated bibasilar opacities which favor atelectasis. An infectious process could appear similar although is considered less likely. 2. Low lung volumes, unchanged. Review of Systems Review of Systems: All systems reviewed & are unremarkable except as noted in HPI & below Physical Exam Constitutional: + ill appearing; + uncomfortable Eyes: PERRL, conjunctivae normal, anicteric sclerae Neck: normal visual inspection and trachea midline Respiratory: + labored breathing and + tachypneic; no cough Auscultation: + diminished lung sounds and + rales; no rhonchi and no wheezes Cardiovascular: RRR, no murmur, no edema Heart Sounds: normal S1 and normal S2; no murmur Vessels: no JVD Extremities: + edema (chronic BLLE lymphedema, non pitting ) Gastrointestinal (Abdomen): Inspection/Auscultation: + abdomen distended and normal bowel sounds; no abdominal edema Percussion/Palpation: abdomen soft; abdomen nontender Musculoskeletal: no cyanosis or clubbing, extremities motor strength 5/5 Psychiatric: Orientation: alert and oriented x 3 (intermittent periods of confusion) Results & Data ([facility]) Vital Signs (Past 12 Hours) Vital Signs Temp Pulse Pulse Resp BP Pulse Ox O2 Del Method 12/13/22 06:17 36.7 C 83 18 116/68 95 Nasal Cannula 12/13/22 02:13 36.5 C 67 16 96/73 L 94 Room Air 12/12/22 22:31 94 H 12/12/22 19:45 Nasal Cannula 12/13/22 00:25 95 H 121/56 L 12/12/22 22:35 36.5 C 92 H 20 117/61 96 Nasal Cannula O2 Flow Rate 12/13/22 06:17 2 12/13/22 02:13 12/12/22 22:31 12/12/22 19:45 2 12/13/22 00:25 12/12/22 22:35 2 Laboratory Results Cardiac Enzymes 12/13/22 Range/Units 06:42 AST 25 (13-39) U/L Coagulation 12/12/22 12/12/22 12/13/22 Range/Units 09:29 17:11 00:41 PT 11.0 (9.0-12.0) Seconds APTT 33.3 H 42.7 H 44.3 H (21.0-31.0) Seconds 12/13/22 Range/Units 07:59 PT (9.0-12.0) Seconds APTT 43.3 H (21.0-31.0) Seconds CBC 12/13/22 Range/Units 06:42 WBC 22.44 H (4.8-10.8) K/ul RBC 4.15 L (4.20-5.40) M/uL Hgb 12.4 (12.0-16.0) g/dl Hct 36.8 L (37.0-47.0) % Plt Count 214 (130-400) K/uL Comprehensive Metabolic Panel 12/13/22 Range/Units 06:42 Sodium 131 L (136-145) mmol/L Potassium 3.4 L (3.5-5.1) mmol/L Chloride 98 (98-107) mmol/L Carbon Dioxide 20 L (21-32) mmol/L BUN 66 H (6-23) mg/dl Creatinine 3.25 H D (0.6-1.2) mg/dl Glucose 143 H (70-99(Fasting)) mg/dl Calcium 6.3 L (8.5-10.1) mg/dl AST 25 (13-39) U/L ALT 73 H (7-52) U/L Alkaline Phosphatase 86 (34-104) U/L Total Protein 6.3 (6.0-8.3) gm/dl Albumin 3.0 L (3.4-5.0) gm/dl Intake and Output 12/12/22 12/13/22 12/13/22 22:59 06:59 14:59 Intake Total 806.248 / 3921.466 2085.435 / 3921.466 221.647 / 221.647 Output Total 510 / 1235 275 / 1235 175 / 175 Balance 296.248 / 2686.466 1810.435 / 2686.466 46.647 / 46.647 Intake: IV 446.248 / 2411.466 1735.435 / 2411.466 221.647 / 221.647 Amiodarone / D5w 360 mg In 200 116.065 / 369.783 83.935 / 369.783 112.447 / 112.447 ml @ 0.5 MG/MIN 16.667 mls/hr IV .Q12H VANDANA Rx#:[id number] Heparin Sodium/Dextrose 25,000 210.183 / 472.350 262.167 / 472.350 109.200 / 109.200 units In 500 ml @ 1,400 UNITS/ HR 28 mls/hr IV .[id number] VANDANA Rx #:[id number] Piperacillin/Tazobactam 4.5 gm 120 / 360 240 / 360 In Dextrose 5% 100 ml @ 30 mls/ hr IV Q8H VANDANA Rx#:[id number] Sodium Chloride 0.9% 1000ML 1, 1149.333 / 1149.333 000 ml @ 80 mls/hr IV .[id number] VANDANA Rx#:[id number] Oral 360 / 1510 350 / 1510 Output: Urine 250 / 505 5 / 505 Urine Amount (Catheter) 50 / 90 40 / 90 External 50 / 90 40 / 90 Drain Output 210 / 640 230 / 640 175 / 175 MIMI #1 210 / 640 230 / 640 175 / 175 Other: # Unmeasured Voids 1 Weight 96.2 kg 104.4 kg (2) Acute pancreatitis Acute pancreatitis complication: unspecified Pancreatitis type: unspecified pancreatitis type Qualified Code(s): K85.90 - Acute pancreatitis without necrosis or infection, unspecified
--- NOTE | 2022-12-13 07:58 | Surgery Progress Note ---
Date of Service December 13, 2022 Assessment & Plan (1) S/P laparoscopic cholecystectomy: Plan: Patient with bile leak with large drain in place appears to be controlling the leak We will discuss with GI-possibility of larger stent-however patient's comorbidity may not allow this at this time Having arrhythmia on IV heparin for apparent A-fib, also on IV amiodarone Acute renal failure with increasing creatinine to 3.25 Severe immobility Continue IV antibiotics We will keep n.p.o. for now until I discussed with GI however her cardiopulmonary renal status is significant Admission and Anticipated Discharge Date Admission Date: December 09, 2022 Results & Data ([facility]) Vital Signs (Past 12 Hours) Vital Signs Temp Pulse Pulse Resp BP Pulse Ox O2 Del Method 12/13/22 06:17 36.7 C 83 18 116/68 95 Nasal Cannula 12/13/22 02:13 36.5 C 67 16 96/73 L 94 Room Air 12/12/22 22:31 94 H 12/13/22 00:25 95 H 121/56 L 12/12/22 22:35 36.5 C 92 H 20 117/61 96 Nasal Cannula O2 Flow Rate 12/13/22 06:17 2 12/13/22 02:13 12/12/22 22:31 12/13/22 00:25 12/12/22 22:35 2 PG Care Time/CCT Total # of Minutes Spent Total Time Spent with Patient: Total time spent is greater than 50% in coordination of care (as documented) at patient's floor/unit and/or counseling patient: Coding Level of Care Code 92040 Post Operative Follow-Up Diagnoses S/P laparoscopic cholecystectomy Z90.49
[2022-12-13 08:49] LABS: Partial Thromboplastin Ratio 1.6; Partial Thromboplastin Time 43.3 Seconds (21.0-31.0)
--- NOTE | 2022-12-13 09:08 | XRay Report ---
XR chest 1V portable CLINICAL HISTORY: Shortness of breath. COMPARISON STUDY: Chest radiograph February 10, 2023. FINDINGS: There is no pneumothorax. Small bilateral pleural effusions have slightly increased. Bibasi lar opacities have mildly increased. Lung volumes are diminished. This is unchanged. Cardiomediastina l silhouette is stable. No evidence for overt pulmonary edema. IMPRESSION: 1. Slight increase in small bilateral pleural effusions and associated bibasilar opacities which favo r atelectasis. An infectious process could appear similar although is considered less likely. 2. Low lung volumes, unchanged. ACT 112: Negative or not required by law. Electronically signed by: Brent Estrada M.D. 12/13/2022 9:07 AM
--- NOTE | 2022-12-13 09:54 | Hospitalist Progress Note ---
Date of Service December 13, 2022 Assessment & Plan (1) Acute pancreatitis: (2) Nausea and vomiting: Plan: Possible related togallstone related pancreatitis Present on admission with abdominal pain that radiating to back associating with vomiting and nausea CT abd/pel showedperipancreatic fat stranding is seen concerning for pancreatitis. Prominence of the gallbladder may be reactive or less likely may represent acute cholecystitis. Abdomen u/s showedgallbladder is distended and full of stones/sludge as detailed above. Findings are suspicious for acute cholecystitis. Lipase above 4000's on admission, Lipase 2960--> then 678 Elevated LFT with AST 313 and ALT 536 S/p Lap chol and ERCPwith sphincterotomy and balloon sweeping of the bile duct for stones and puswith stent placement on 12/10/22 Sepsis POA Acute cholangitis Transaminitis LFT continue trending down with AST 25, ALT 73 and Alk 86 Still leukocytosis today at 22K Appear to be clinically worse today with worsening renal function, metabolic acidosis. MIMI drain seem to be sanguinous Hb is 12.4, though less than 2 days ago when it was 14, but still within normal range Gen surg on board Discussed with GI. GI may take patient to repeat ERCP tomorrow to possible use a bigger stent. Heparin drip on hold Will keep on clears today and NPO PMN Continue broad spectrum antibiotic with IV Zosyn Surgery plan to keep the MIMI drain for now Continue monitor CBC and liver enzymes Continue IS Flutter Wean off oxygen as tolerated Paroxysmal Afib SVT Currently on NSR Cardiology on board Continue IV amio drip Heparin on hold as above Metoprolol increased to 25mg Q6H ECHO showed normal LV wall function. EF 65 to 70 % SAMMY Creatinine increased to 3.25 VBH pH is 7.26 Metabolic acidosis Nephrology on board Continue to hold Losartan Avoid nephrotoxic agents RN to place catalan Elevated Glucose Possible related to pancreatitis Recent Hba1c 6.1 continue monitor BS HTN Currently stable Losartan on hold Continue monitor BP Hyperthyroidism Continue Methimazole Anxiety Continue Sertraline Code status full code DVT px SCD. Hep gtt on hold as above Discussed with daughter over the phone. She stated patient has been having memory deficits over the past year and occasionally confused but has had more episodes since after surgery I spent a total of 55 minutes coordinating, documenting and providing care for this patient excluding time spent in performance of separately billed services Admission and Anticipated Discharge Date Admission Date: December 09, 2022 Subjective Patient seen and examined Patient is alert, oriented to person and place She is mildly confused and anxious about her daughter not being here. She reports nonproductive cough since surgery. Denied any shortness of breath, chest pain, nausea, vomiting Has had reduced urine output per RN No fevers, chills Physical Exam Constitutional: no acute distress Eyes: PERRL, conjunctivae normal, anicteric sclerae ENMT: Dry oral mucosa Respiratory: On nasal cannula 2l/min, diminished breath sounds lung bases Cardiovascular: Rate/Rhythm: regular rate and regular rhythm S1 S2 Gastrointestinal (Abdomen): Clean dressing over surgical site, RUQ MIMI drain containing fluid with dark reddish hue Soft, +bowel sounds Musculoskeletal: Trace pedal edema Neurologic: PERRL, EOMI, accommodation nl, no face palsy, no dysarthria Psychiatric: Orientation: alert, oriented to person, oriented to place and cooperative; + not oriented to time Anxious and mildly confused Results & Data Results & Data ([facility]) Vital Signs (Past 12 Hours) Vital Signs Temp Pulse Pulse Resp BP Pulse Ox O2 Del Method 12/13/22 06:17 36.7 C 83 18 116/68 95 Nasal Cannula 12/13/22 02:13 36.5 C 67 16 96/73 L 94 Room Air 12/12/22 22:31 94 H 12/13/22 00:25 95 H 121/56 L 12/12/22 22:35 36.5 C 92 H 20 117/61 96 Nasal Cannula O2 Flow Rate 12/13/22 06:17 2 12/13/22 02:13 12/12/22 22:31 12/13/22 00:25 12/12/22 22:35 2 Laboratory Results Abnormal lab results 12/12/22 12/12/22 12/12/22 Range/Units 11:37 16:11 17:11 WBC (4.8-10.8) K/ul RBC (4.20-5.40) M/uL Hct (37.0-47.0) % APTT 42.7 H (21.0-31.0) Seconds VBG pH (7.36-7.41) Sodium (136-145) mmol/L Potassium (3.5-5.1) mmol/L Carbon Dioxide (21-32) mmol/L Anion Gap (3-11) BUN (6-23) mg/dl Creatinine (0.6-1.2) mg/dl BUN/Creatinine Ratio (10-20) Glucose (70-99(Fasting)) mg/dl POC Glucose 126 H 122 H (70-99) mg/dl Calcium (8.5-10.1) mg/dl Total Bilirubin (0.2-1.0) mg/dl ALT (7-52) U/L Albumin (3.4-5.0) gm/dl 12/12/22 12/13/22 12/13/22 Range/Units 20:19 00:41 06:42 WBC 22.44 H (4.8-10.8) K/ul RBC 4.15 L (4.20-5.40) M/uL Hct 36.8 L (37.0-47.0) % APTT 44.3 H (21.0-31.0) Seconds VBG pH (7.36-7.41) Sodium (136-145) mmol/L Potassium (3.5-5.1) mmol/L Carbon Dioxide (21-32) mmol/L Anion Gap (3-11) BUN (6-23) mg/dl Creatinine (0.6-1.2) mg/dl BUN/Creatinine Ratio (10-20) Glucose (70-99(Fasting)) mg/dl POC Glucose 134 H (70-99) mg/dl Calcium (8.5-10.1) mg/dl Total Bilirubin (0.2-1.0) mg/dl ALT (7-52) U/L Albumin (3.4-5.0) gm/dl 12/13/22 12/13/22 12/13/22 Range/Units 06:42 06:44 07:06 WBC (4.8-10.8) K/ul RBC (4.20-5.40) M/uL Hct (37.0-47.0) % APTT (21.0-31.0) Seconds VBG pH 7.28 L (7.36-7.41) Sodium 131 L (136-145) mmol/L Potassium 3.4 L (3.5-5.1) mmol/L Carbon Dioxide 20 L (21-32) mmol/L Anion Gap 13 H (3-11) BUN 66 H (6-23) mg/dl Creatinine 3.25 H D (0.6-1.2) mg/dl BUN/Creatinine Ratio 20.3 H (10-20) Glucose 143 H (70-99(Fasting)) mg/dl POC Glucose 153 H (70-99) mg/dl Calcium 6.3 L (8.5-10.1) mg/dl Total Bilirubin 2.4 H (0.2-1.0) mg/dl ALT 73 H (7-52) U/L Albumin 3.0 L (3.4-5.0) gm/dl 12/13/22 Range/Units 07:59 WBC (4.8-10.8) K/ul RBC (4.20-5.40) M/uL Hct (37.0-47.0) % APTT 43.3 H (21.0-31.0) Seconds VBG pH (7.36-7.41) Sodium (136-145) mmol/L Potassium (3.5-5.1) mmol/L Carbon Dioxide (21-32) mmol/L Anion Gap (3-11) BUN (6-23) mg/dl Creatinine (0.6-1.2) mg/dl BUN/Creatinine Ratio (10-20) Glucose (70-99(Fasting)) mg/dl POC Glucose (70-99) mg/dl Calcium (8.5-10.1) mg/dl Total Bilirubin (0.2-1.0) mg/dl ALT (7-52) U/L Albumin (3.4-5.0) gm/dl (1) Acute pancreatitis Acute pancreatitis complication: unspecified Pancreatitis type: unspecified pancreatitis type Qualified Code(s): K85.90 - Acute pancreatitis without necrosis or infection, unspecified (2) Nausea and vomiting Vomiting type: unspecified Qualified Code(s): R11.2 - Nausea with vomiting, unspecified
[2022-12-13] MEDS: SERTRALINE HCL 50 MG TABLET PO SCH (10:31)
[2022-12-13] MEDS: DOCUSATE SODIUM/SENNA 50/8.6MG TAB PO SCH ×2 (10:31→21:54)
[2022-12-13] MEDS: methIMAzole 5 MG TABLET PO SCH (10:31)
--- NOTE | 2022-12-13 11:12 | Nephrology Progress Note ---
Date of Service December 13, 2022 Assessment & Plan (1) SAMMY (acute kidney injury): Plan: baseilne creatinine 0.8; Stage 3 SAMMY w/o oliguria ischemic ATN multifactorial including IV contrast, poor po intake prior to admission (presenting s.g. on UA > 1045), continued losartan in setting of above (last dose 12/11), sepsis from pancreatitis/cholecystitis, then compoounded by poor renal perfusion w/ ongoing pAF and hypotension. there will be some delay in creatinine levels relative to clinical events so expect it given hemodynamics 12/11 to worsen before it stabilizes. chemistries and volume status ok on exam and per CXR this am though I worry she feels more dyspneic today -recheck bmp, mag 1300 ordered; based on this will reassess IVF type/rate> baed on results will lower LR to 50 ml/hr and give 20 mEq po K x 1 -repeat bmp daily -strict I/O -no indication for dialysis currently but cannot rule out need to discuss this admission -repeat UA ordered -for now defer repeat u/s -ensure complete I/O >>stopped vesicare completely now that she has catalan; look to resume possibly at lower dose after renal function improves Admission and Anticipated Discharge Date Admission Date: December 09, 2022 Subjective ur retention this am 340 mL > catalan. AF w/ much better rate control past 36hr but now actually bradying down at times and then racing if IV amio stopped; also more confusion today; after catalan placement dark brown/zahraa urine. plan to return to OR in am for larger stent Review of Systems Review of Systems: Unobtainable due to cognitive status (limited) Physical Exam Constitutional: well developed and well nourished; no acute distress Eyes: EOM intact bilaterally ENMT: Ears: no external ear abnormality Nose: no external nose abnormality Mouth: + dry oral mucous membranes Neck: no nuchal rigidity Respiratory: normal respiratory effort and + paradoxical thoraco-abdominal mo vement; no respiratory distress Auscultation: + diminished lung sounds (m arkedly) Cardiovascular: Rate/Rhythm: regular rate and regular rhythm Extremities: no edema Gastrointestinal (Abdomen): Inspection/Auscultation: + hypoactive bowel s ounds; + abnormal bowel sounds Percussion/Palpation: abdomen soft; abdomen nontender drain RUQ Musculoskeletal: Extremities: + abnormal strength (cannot situp w/o asst; BLE weak) Skin: no rashes, warm and dry Psychiatric: Orientation: alert, oriented to person and cooperative Results & Data Vital Signs (Past 12 Hours) Vital Signs Temp Pulse Pulse Resp BP Pulse Ox O2 Del Method 12/13/22 08:00 82 12/13/22 06:17 36.7 C 83 18 116/68 95 Nasal Cannula 12/13/22 02:13 36.5 C 67 16 96/73 L 94 Room Air 12/13/22 00:25 95 H 121/56 L O2 Flow Rate 12/13/22 08:00 12/13/22 06:17 2 12/13/22 02:13 12/13/22 00:25 Laboratory Results 12/13/22 06:42 12/13/22 06:42 Diagnostic Findings cxr reviewed today
[2022-12-13 12:10] LABS: Appearance Urine Cloudy (Clear); Bacteria Urine Automated Negative (Negative); Blood Urine Negative (Negative); Color Urine Dark Yellow; Glucose Urine UA Trace (Negative); Ketones Urine Negative (Negative); Leukocyte Esterase Urine Trace (Negative); Nitrite Urine Positive (Negative); Protein Urine 1+ (Negative); RBC Urine Automated >30 /hpf (0-4); Specific Gravity Urine 1.021 (1.000-1.030); Urobilinogen Urine Negative (Negative)
[2022-12-13 12:24] LABS: Bilirubin Urine 1+ (Negative)
[2022-12-13 13:29] LABS: BUN Creatinine Ratio 18.9 (10-20); Calcium 6.3 mg/dl (8.5-10.1); Creatinine Clr Calc Pharmacy 16.6 ml/min; Est GFR (Non-African American) 12.1 ml/min; Magnesium 2.1 mg/dl (1.7-2.4); Potassium 3.3 mmol/L (3.5-5.1)
[2022-12-13 16:26] LABS: Hematocrit (blood only) 36.6 % (37.0-47.0); Hemoglobin 12.3 g/dl (12.0-16.0); Mean Corpuscular Hemoglobin 29.6 pg (25.0-34.0); Mean Corpuscular Hgb Conc 33.6 g/dL (32.0-36.0); Mean Platelet Volume 10.1 fL (9.4-12.4); Platelet Count 218 K/uL (130-400); RDW Coefficient of Variation 14.6 % (11.5-14.5); RDW Standard Deviation 46.9 fL (36.4-46.3); Red Blood Count 4.16 M/uL (4.20-5.40)
[2022-12-13] MEDS ORDERED: METOPROLOL TARTRATE 25 MG TAB PO SCH (22:00)
[2022-12-14] MEDS: PIPERACILLIN/TAZOBACTAM 4.5 GM in DEXTROSE 5% 100 ML IV SCH ×2 (01:47→14:40)
[2022-12-14] MEDS ORDERED: Nursing to Pharmacy Communication SCH (03:45)
[2022-12-14] MEDS: LACTATED RINGER'S 1,000 ML IV SCH (04:45)
--- NOTE | 2022-12-14 07:12 | Surgery Progress Note ---
Date of Service December 14, 2022 Assessment & Plan (1) Hx laparoscopic cholecystectomy: Plan: Patient is awake but confused and mildly combative Refused her laboratories and may refuse her ERCP Her MIMI drain has decreased to 20 to 30 cc per 6 hours A.m. labs are pending Tomlinson catheter in place From my standpoint the MIMI drain will stay in place for anywhere from 3 to 6 weeks I will be going away later today and Dr. Rushing will check on the patient as well as my partners Admission and Anticipated Discharge Date Admission Date: December 09, 2022 Results & Data Vital Signs (Past 12 Hours) Vital Signs Temp Pulse Pulse Resp BP BP Pulse Ox 12/14/22 03:51 36.7 C 93 H 18 159/71 H 95 12/13/22 22:09 89 12/13/22 23:34 12/13/22 22:54 36.8 C 90 20 133/74 95 12/13/22 21:52 94 H 156/89 H 12/13/22 20:11 36.6 C 94 H 20 114/76 96 O2 Del Method O2 Flow Rate 12/14/22 03:51 Nasal Cannula 2 12/13/22 22:09 12/13/22 23:34 Nasal Cannula 2 12/13/22 22:54 Nasal Cannula 2.0 12/13/22 21:52 12/13/22 20:11 Nasal Cannula 2.0 PG Care Time/CCT Total # of Minutes Spent Total Time Spent with Patient: Total time spent is greater than 50% in coordination of care (as documented) at patient's floor/unit and/or counseling patient: Coding Level of Care Code None Diagnoses Hx laparoscopic cholecystectomy Z90.49
--- NOTE | 2022-12-14 07:38 | Cardiology Progress Note ---
Date of Service December 14, 2022 Assessment & Plan (1) Afib: (2) Acute pancreatitis: (3) S/P laparoscopic cholecystectomy: (4) Hypertension: Plan IMPRESSION: 72-year-old female without significant cardiac past medical history. Admitted for acute pancreatitis and cholecystitis. S/p lap Cholecystectomy and ERCP. Clinical decline over night. During admission found to have new onset PAF in the setting of acute illness. Briefly on amiodarone- bradycardic rates /15 ~130pm. Amio stopped and metoprolol reduced. No PAF noted over night. [id number] score- 3 (age, female, HTN) Tele: NSR with PACs 70-80s. PLAN: -Hold ANIMAL SKINNER Losartan due to low BP readings and ARF. Renal function continues to decline. Appreciate nephrology input regarding ARF management. -Tomlinson placed for accurate I&O -Replace electrolytes as needed- potassium goal of 4.0 and mag goal of 2.0. -Metoprolol tartrate reduced to 25 mg TID (12/13), but now on hold due to intermittent bradycardia. Amio stopped due to bradycardic rates (12/13). -Heparin stopped this am due to decline in clinical course as well as large output from MIMI. GI and Gen surgery on board- possible repeat ERCP with larger stent placement. Case discussed with Dr. Costello. Will follow. Admission and Anticipated Discharge Date Admission Date: December 09, 2022 Supervising Physician Co-Signing Physician Notes I have personally seen and examined the patient along with Mago ISLAS. Progressive renal failure and acidosis noted per a.m. labs. Patient reports abdominal tenderness. No recurrent atrial fibrillation overnight. Intermittent sinus bradycardia recorded. Amiodarone placed on hold yesterday due to occasional bradycardia. The medical record and all available studies have been reviewed. PE: VSS. GEN: ill appearing. AAO x3. Heart: Regular rhythm, normal S1-S2. No murmur. Lungs: Diminished breath sounds at the bases bilateral. No rales, rhonchi, or wheeze. Extremities: No edema. After discussion with Mago ISLAS, I fully agree with the assessment and plan as documented above. Hold metoprolol, IV amiodarone, and IV heparin. Patient for possible ERCP today. Nephrology following. Subjective 72-year-old female new onset paroxysmal A-fib in setting of acute pancreatitis and cholangitis. 12/10: Episode of PAF status post surgery on 12/10 lasting approximately 20 minutes around 20 1:14 PM on telemetry. Patient converted to sinus rhythm spontaneously. 12/11: Metoprolol tartrate increased to 25 mg twice daily. Did not start anticoagulation due to brief duration of A-fib. Losartan held for low blood pressure readings At approximately 7:45 PM patient went into rapid A-fib with heart rates in the 170s to 180s. IV amiodarone started per primary team. Was also given x1 dose of Digoxin. 12/12: Lab work indicated worsening renal function with a creatinine of 2.17. Sodium mildly low.IV fluids started per primary team. Nephrology consulted. Tele: Ongoing episodes of PAF with rates as high as 160s. Maintaining NSR- converted around 1-2 am. 12/13: Increased confusion and shortness of breath. CXR: 1. Slight increase in small bilateral pleural effusions and associated bibasilar opacities which favor atelectasis. An infectious process could appear similar although is considered less likely. 2. Low lung volumes, unchanged. Low urine output- Tomlinson placed per nephro. Labs: Worsening serum creatinine (2.17>>3.25) baseline ~0.8. IV heparin stopped- concerns for large output from MIMI drain and need for repeat ERCP and larger stent placement. Tele: SR with PACs- 80 bpm. No PAF, Low HR into the 40s yesterday afternoon around 130pm- amiodarone stopped. Metoprolol reduced to 25 mg TID. 12/14: Upon entrance into the room patient resting in bed. Stacey Stewart, at bedside. Notes SOB with movement/rolling. No chest pain, palpitations, or lightheadedness. Tele: NSR 70-80s with PACs, No PAF. Labs: Worsening renal function (scr now 4.73) Review of Systems Review of Systems: All systems reviewed & are unremarkable except as noted in HPI & below Physical Exam Constitutional: + ill appearing; no acute distress Eyes: PERRL, conjunctivae normal, anicteric sclerae Neck: normal visual inspection and trachea midline Respiratory: normal respiratory effort, lungs clear to auscultation + tachypneic; no respiratory distress and no cough Auscultation: + diminished lung sounds and + rales; no rhonchi and no wheezes Cardiovascular: RRR, no murmur, no edema Heart Sounds: normal S1 and normal S2; no murmur Vessels: no JVD Extremities: + edema (chronic BLLE lymphedema, non pitting ) Gastrointestinal (Abdomen): Inspection/Auscultation: abdomen normal to inspection; abdomen not distended and no abdominal edema Percussion/Palpation: abdomen soft; abdomen nontender Musculoskeletal: no cyanosis or clubbing, extremities motor strength 5/5 Psychiatric: Orientation: alert and oriented x 3 (intermittent periods of confusion) Results & Data Vital Signs (Past 12 Hours) Vital Signs Temp Pulse Pulse Resp BP BP Pulse Ox 12/14/22 07:14 36.5 C 81 18 136/66 96 12/14/22 03:51 36.7 C 93 H 18 159/71 H 95 12/13/22 22:09 89 12/13/22 23:34 12/13/22 22:54 36.8 C 90 20 133/74 95 12/13/22 21:52 94 H 156/89 H 12/13/22 20:11 36.6 C 94 H 20 114/76 96 O2 Del Method O2 Flow Rate 12/14/22 07:14 Nasal Cannula 2 12/14/22 03:51 Nasal Cannula 2 12/13/22 22:09 12/13/22 23:34 Nasal Cannula 2 12/13/22 22:54 Nasal Cannula 2.0 12/13/22 21:52 12/13/22 20:11 Nasal Cannula 2.0 (2) Acute pancreatitis Acute pancreatitis complication: unspecified Pancreatitis type: unspecified pancreatitis type Qualified Code(s): K85.90 - Acute pancreatitis without necrosis or infection, unspecified
[2022-12-14 08:25] LABS: Hematocrit (blood only) 37.3 % (37.0-47.0); Hemoglobin 12.8 g/dl (12.0-16.0); Mean Corpuscular Hemoglobin 29.6 pg (25.0-34.0); Mean Corpuscular Hgb Conc 34.3 g/dL (32.0-36.0); Mean Corpuscular Volume 86.1 fL (80.0-100.0); Mean Platelet Volume 10.7 fL (9.4-12.4); Platelet Count 198 K/uL (130-400); RDW Coefficient of Variation 14.6 % (11.5-14.5); RDW Standard Deviation 46.2 fL (36.4-46.3); Red Blood Count 4.33 M/uL (4.20-5.40); White Blood Count 22.32 K/ul (4.8-10.8)
[2022-12-14] MEDS: HEPARIN SODIUM/DEXTROSE 25,000 UNITS/500 ML BAG IV SCH (08:30)
[2022-12-14] MEDS: INSULIN ASPART PER UNIT CHARGE SC SCH ×4 (08:30→20:06)
[2022-12-14] MEDS: DOCUSATE SODIUM/SENNA 50/8.6MG TAB PO SCH ×2 (08:42→20:57)
[2022-12-14 08:46] LABS: Albumin Globulin Ratio 0.8 (0.9-2); Albumin Level 2.7 gm/dl (3.4-5.0); Calcium 6.2 mg/dl (8.5-10.1); Creatinine Clr Calc Pharmacy 12.1 ml/min; Globulin 3.4 gm/dl (2.5-4.0); Magnesium 2.2 mg/dl (1.7-2.4); Phosphorus 5.4 mg/dl (2.5-4.9); Total Protein 6.1 gm/dl (6.0-8.3)
[2022-12-14] MEDS: SERTRALINE HCL 50 MG TABLET PO SCH (08:55)
[2022-12-14] MEDS: methIMAzole 5 MG TABLET PO SCH (08:55)
[2022-12-14] MEDS: METOPROLOL TARTRATE 25 MG TAB PO SCH (08:56)
[2022-12-14 09:03] LABS: BUN Creatinine Ratio 16.3 (10-20); Est GFR (African American) 9.9 ml/min; Est GFR (Non-African American) 8.5 ml/min
[2022-12-14] MEDS: POTASSIUM CHLORIDE / WTR 10 MEQ/100 ML PLCT IV SCH ×3 (09:55→12:08)
--- NOTE | 2022-12-14 13:16 | Hospitalist Progress Note ---
Date of Service December 14, 2022 Assessment & Plan (1) Acute pancreatitis: (2) Nausea and vomiting: Plan: Possible related togallstone related pancreatitis Present on admission with abdominal pain that radiating to back associating with vomiting and nausea CT abd/pel showedperipancreatic fat stranding is seen concerning for pancreatitis. Prominence of the gallbladder may be reactive or less likely may represent acute cholecystitis. Abdomen u/s showedgallbladder is distended and full of stones/sludge as detailed above. Findings are suspicious for acute cholecystitis. Lipase above 4000's on admission, Lipase 2960--> then 678 Elevated LFT with AST 313 and ALT 536 S/p Lap chol and ERCPwith sphincterotomy and balloon sweeping of the bile duct for stones and puswith stent placement on 12/10/22 Acute cholangitis Transaminitis Sepsis. Per my chart review, patient did meet SIRS criteria with tachycardia and tachypnea. WBC was 11k on day of admission and increased to 30+K the next day LFTs normalized Hb is stable at 12.8 Gen surg on board GI planning to take patient to repeat ERCP today to possible use a bigger stent. Currently NPO Heparin drip on hold Continue broad spectrum antibiotic with IV Zosyn Still leukocytosis today at 22K Procal is 4.24 today Follow up infectious workup Surgery plan to keep the MIMI drain for now Continue monitor CBC and liver enzymes Continue IS Flutter Wean off oxygen as tolerated Paroxysmal Afib SVT Currently on NSR Cardiology on board Heparin on hold as above Patient had intermittent bradycardia, metoprolol currently on hold Off amio drip ECHO showed normal LV wall function. 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 No additional IVF for now Monitor renal function Continue to hold Losartan Avoid nephrotoxic agents Elevated Glucose Possible related to pancreatitis Recent Hba1c 6.1 continue monitor BS HTN Currently stable Losartan on hold Continue monitor BP Hyperthyroidism Continue Methimazole Anxiety Continue Sertraline Code status full code DVT px SCD. Hep gtt on hold as above Discussed with daughter at bedside I spent a total of 50 minutes coordinating, documenting and providing care for this patient excluding time spent in performance of separately billed services Admission and Anticipated Discharge Date Admission Date: December 09, 2022 Subjective Patient seen and examined Patient is alert, oriented to person and place She reports nonproductive cough since surgery. No shortness of breath at rest Reports exertional dyspnea Denied any chest pain, palpitation Denied abd pain, nausea, vomiting No fevers or chills Physical Exam Constitutional: no acute distress Eyes: PERRL, conjunctivae normal, anicteric sclerae ENMT: external ear and nose normal, oropharynx normal Respiratory: Not in resp distress, on nasal cannula Diminished breath sound lung bases Cardiovascular: Rate/Rhythm: regular rate and regular rhythm S1 S2 Gastrointestinal (Abdomen): normal bowel sounds, soft, nontender, no hepatosplenomegaly MIMI drain in situ with serosanguinous drainage Musculoskeletal: +pedal edema Neurologic: PERRL, EOMI, accommodation nl, no face palsy, no dysarthria Psychiatric: Orientation: alert, oriented to person, oriented to place and cooperative; + not oriented to time Results & Data Results & Data Vital Signs (Past 12 Hours) Vital Signs Temp Pulse Pulse Resp BP Pulse Ox O2 Del Method 12/14/22 11:05 36.9 C 87 18 94 Nasal Cannula 12/14/22 08:00 Nasal Cannula 12/14/22 10:42 132/83 12/14/22 08:57 88 126/88 12/14/22 07:51 55 L 12/14/22 07:14 36.5 C 81 18 136/66 96 Nasal Cannula 12/14/22 03:51 36.7 C 93 H 18 159/71 H 95 Nasal Cannula O2 Flow Rate 12/14/22 11:05 1 12/14/22 08:00 1 12/14/22 10:42 12/14/22 08:57 12/14/22 07:51 12/14/22 07:14 2 12/14/22 03:51 2 Laboratory Results Abnormal lab results 12/13/22 12/13/22 12/13/22 Range/Units 16:01 16:18 20:47 WBC 23.50 H (4.8-10.8) K/ul RBC 4.16 L (4.20-5.40) M/uL Hct 36.6 L (37.0-47.0) % RDW Std Deviation 46.9 H (36.4-46.3) fL RDW Coeff of Mandy 14.6 H (11.5-14.5) % Sodium (136-145) mmol/L Potassium (3.5-5.1) mmol/L Carbon Dioxide (21-32) mmol/L Anion Gap (3-11) BUN (6-23) mg/dl Creatinine (0.6-1.2) mg/dl Glucose (70-99(Fasting)) mg/dl POC Glucose 108 H 101 H (70-99) mg/dl Calcium (8.5-10.1) mg/dl Phosphorus (2.5-4.9) mg/dl Total Bilirubin (0.2-1.0) mg/dl Albumin (3.4-5.0) gm/dl Albumin/Globulin Ratio (0.9-2) Procalcitonin (0-0.5) ng/ml 12/14/22 12/14/22 12/14/22 Range/Units 06:44 07:59 07:59 WBC (4.8-10.8) K/ul RBC (4.20-5.40) M/uL Hct (37.0-47.0) % RDW Std Deviation (36.4-46.3) fL RDW Coeff of Mandy (11.5-14.5) % Sodium 133 L (136-145) mmol/L Potassium 3.0 L (3.5-5.1) mmol/L Carbon Dioxide 14 L (21-32) mmol/L Anion Gap 20 H (3-11) BUN 77 H (6-23) mg/dl Creatinine 4.73 H* D (0.6-1.2) mg/dl Glucose 111 H (70-99(Fasting)) mg/dl POC Glucose 118 H (70-99) mg/dl Calcium 6.2 L (8.5-10.1) mg/dl Phosphorus 5.4 H (2.5-4.9) mg/dl Total Bilirubin 2.0 H (0.2-1.0) mg/dl Albumin 2.7 L (3.4-5.0) gm/dl Albumin/Globulin Ratio 0.8 L (0.9-2) Procalcitonin 4.24 H (0-0.5) ng/ml 12/14/22 12/14/22 12/14/22 Range/Units 08:00 08:02 11:45 WBC 22.32 H (4.8-10.8) K/ul RBC (4.20-5.40) M/uL Hct (37.0-47.0) % RDW Std Deviation (36.4-46.3) fL RDW Coeff of Mandy 14.6 H (11.5-14.5) % Sodium (136-145) mmol/L Potassium (3.5-5.1) mmol/L Carbon Dioxide (21-32) mmol/L Anion Gap (3-11) BUN (6-23) mg/dl Creatinine (0.6-1.2) mg/dl Glucose (70-99(Fasting)) mg/dl POC Glucose 106 H 101 H (70-99) mg/dl Calcium (8.5-10.1) mg/dl Phosphorus (2.5-4.9) mg/dl Total Bilirubin (0.2-1.0) mg/dl Albumin (3.4-5.0) gm/dl Albumin/Globulin Ratio (0.9-2) Procalcitonin (0-0.5) ng/ml (1) Acute pancreatitis Acute pancreatitis complication: unspecified Pancreatitis type: unspecified pancreatitis type Qualified Code(s): K85.90 - Acute pancreatitis without necrosis or infection, unspecified (2) Nausea and vomiting Vomiting type: unspecified Qualified Code(s): R11.2 - Nausea with vomiting, unspecified
--- NOTE | 2022-12-14 13:18 | Nephrology Progress Note ---
Date of Service December 14, 2022 Assessment & Plan (1) SAMMY (acute kidney injury): Plan: baseilne creatinine 0.8; progressive stage 3 SAMMY w/o oliguria so far ischemic ATN multifactorial including IV contrast, poor po intake prior to admission (presenting s.g. on UA > 1045), continued losartan in setting of above (last dose 12/11), sepsis from pancreatitis/cholecystitis, then compounded by poor renal perfusion w/ ongoing pAF and hypotension for several days though this instability resolved by December 13 for the most part. there will be some delay in creatinine levels relative to clinical events so expect it given hemodynamics 12/11 to worsen before it stabilizes. chemistries okay though worsening. volume status ok on exam and per CXR 12/13. December 13 urinalysis reassuring and without suggestion of infection -With hypokalemia today due to GI losses; cautious repletion with 30 mill equivalents IV -Now with anion gap metabolic acidosis whether from sepsis, worsening renal failure No IV fluid currently and none indicated -She will need recheck later today when she completes potassium repletion of basic metabolic panel, magnesium, lactate -strict I/O -no indication for dialysis currently but cannot rule out need to this admission; I did discuss this with the patient and her family today, letting them know the next 24 to 48 hours may be crucial in terms of needing dialysis or not -for now defer repeat u/s but would obtain 1 tomorrow if renal function continues to worsen which it may well do >>stopped vesicare completely now that she has catalan; look to resume possibly at lower dose after renal function improves Care coordinated w/ Dr Cuellar Admission and Anticipated Discharge Date Admission Date: December 09, 2022 Subjective For ERCP later today. Her MIMI drain output has lessened significantly. Renal function worsening. Also significant diarrhea yesterday with 6 bowel movements charted urine output about 350 cc from 7 PM December 13 through noon December 14 with 1 liquid watery bowel movement so far today. Ongoing anxiety and dyspnea. Review of Systems Review of Systems: All systems reviewed & are unremarkable except as noted in Subjective Physical Exam Constitutional: well developed and well nourished; no acute distress Eyes: EOM intact bilaterally ENMT: Ears: no external ear abnormality Nose: no external nose abnormality Mouth: + dry oral mucous membranes Neck: no nuchal rigidity Respiratory: normal respiratory effort and + paradoxical thoraco-abdominal mo vement; no respiratory distress Auscultation: + diminished lung sounds (m arkedly) Cardiovascular: Rate/Rhythm: regular rate and regular rhythm Extremities: no edema Gastrointestinal (Abdomen): Inspection/Auscultation: + high-pitched sounds and + hyperactive bowel sounds; + abdomen abnormal to inspection (Right upper quadrant drain) Percussion/Palpation: abdomen soft; abdomen nontender Musculoskeletal: Extremities: + abnormal strength (cannot situp w/o asst; BLE weak) Skin: no rashes, warm and dry Psychiatric: Orientation: alert, oriented x 3, oriented to person and c ooperative Genitourinary: Catalan with urine output telephone lines repairer yellow today than yesterday Results & Data Vital Signs (Past 12 Hours) Vital Signs Temp Pulse Pulse Resp BP Pulse Ox O2 Del Method 12/14/22 11:05 36.9 C 87 18 94 Nasal Cannula 12/14/22 08:00 Nasal Cannula 12/14/22 10:42 132/83 12/14/22 08:57 88 126/88 12/14/22 07:51 55 L 12/14/22 07:14 36.5 C 81 18 136/66 96 Nasal Cannula 12/14/22 03:51 36.7 C 93 H 18 159/71 H 95 Nasal Cannula O2 Flow Rate 12/14/22 11:05 1 12/14/22 08:00 1 12/14/22 10:42 12/14/22 08:57 12/14/22 07:51 12/14/22 07:14 2 12/14/22 03:51 2 Laboratory Results 12/14/22 08:00 12/14/22 07:59
[2022-12-14] MEDS ORDERED: fentaNYL citrate PF 100 MCG/2 ML VIAL ONE (14:31)
[2022-12-14] MEDS ORDERED: ROCURONIUM BROMIDE 10 MG/ML 5 ML VIAL IV ONE ×3 (14:33)
[2022-12-14] MEDS ORDERED: PROPOFOL IV EMULSION 10 MG/ML 20 ML VIAL IV ONE (14:33)
[2022-12-14] MEDS ORDERED: LIDOCAINE 2% MPF LOCAL 5 ML VIAL INFIL ONE (14:33)
--- NOTE | 2022-12-14 15:27 | Communication Note ---
Date of Service: December 14, 2022 I reviewed the MIMI drain output and it had significantly decreased compared to yesterday and upon exam it is clearly serosanguineous with no bile seen. At this point will hold off on the ERCP and check the drain output in the next 24 hrs. If it continues to improve then no need for repeat ERCP. Patient agrees with my plan.
[2022-12-14 17:11] LABS: BUN Creatinine Ratio 16.3 (10-20); Calcium 6.5 mg/dl (8.5-10.1); Creatinine Clr Calc Pharmacy 11.3 ml/min; Est GFR (African American) 8.9 ml/min; Est GFR (Non-African American) 7.7 ml/min; Magnesium 2.3 mg/dl (1.7-2.4); Potassium 3.2 mmol/L (3.5-5.1)
[2022-12-14] MEDS ORDERED: DEXTROSE 5% IV SCH (18:00)
[2022-12-14] MEDS ORDERED: POTASSIUM CHLORIDE IV SCH (18:00)
[2022-12-14] MEDS ORDERED: SODIUM BICARBONATE IV SCH (18:00)
[2022-12-14] MEDS: SODIUM BICARBONATE IV SCH (18:21)
[2022-12-14] MEDS: POTASSIUM CHLORIDE IV SCH (18:21)
[2022-12-14] MEDS: CALCIUM CARBONATE 1,250 MG/5 ML UDC PO SCH ×2 (18:21→20:57)
[2022-12-14] MEDS: DEXTROSE 5% IV SCH (18:21)
[2022-12-15] MEDS: PIPERACILLIN/TAZOBACTAM 4.5 GM in DEXTROSE 5% 100 ML IV SCH ×2 (02:19→14:08)
[2022-12-15 07:26] LABS: Hematocrit (blood only) 36.8 % (37.0-47.0); Hemoglobin 12.8 g/dl (12.0-16.0); Mean Corpuscular Hemoglobin 29.8 pg (25.0-34.0); Mean Corpuscular Hgb Conc 34.8 g/dL (32.0-36.0); Mean Corpuscular Volume 85.6 fL (80.0-100.0); Mean Platelet Volume 11.1 fL (9.4-12.4); Platelet Count 181 K/uL (130-400); RDW Coefficient of Variation 14.7 % (11.5-14.5); RDW Standard Deviation 45.9 fL (36.4-46.3); White Blood Count 22.07 K/ul (4.8-10.8)
--- NOTE | 2022-12-15 07:38 | XRay Report ---
XR chest 1V portable HISTORY: 72 years-old Female check volume status acute shortness of breath COMPARISON: 12/13/2022 TECHNIQUE: AP view of the chest FINDINGS: Cardiac silhouette is enlarged. Lungs are hypoinflated. Pulmonary vascular congestion. No pneumothora x. Small pleural effusions with persistent bibasilar consolidation. Mild interstitial coarsening. Bon es appear grossly intact. IMPRESSION: 1. Cardiomegaly with pulmonary vascular congestion. 2. Unchanged small pleural effusions with bibasilar consolidation favoring atelectasis. 3. Hypoinflation. ACT 112: Negative or not required by law. The above report was generated using voice recognition software. It may contain grammatical, syntax o r spelling errors. Electronically signed by: Nick Stone M.D. 12/15/2022 7:37 AM
[2022-12-15 07:47] LABS: Albumin Globulin Ratio 0.7 (0.9-2); Albumin Level 2.6 gm/dl (3.4-5.0); BUN Creatinine Ratio 14.3 (10-20); Bilirubin,Total 1.5 mg/dl (0.2-1.0); Calcium 6.5 mg/dl (8.5-10.1); Creatinine Clr Calc Pharmacy 9.9 ml/min; Est GFR (African American) 7.6 ml/min; Est GFR (Non-African American) 6.5 ml/min; Globulin 3.5 gm/dl (2.5-4.0); Magnesium 2.3 mg/dl (1.7-2.4); Phosphorus 5.5 mg/dl (2.5-4.9); Potassium 3.4 mmol/L (3.5-5.1); Total Protein 6.1 gm/dl (6.0-8.3)
--- NOTE | 2022-12-15 07:55 | Cardiology Progress Note ---
Date of Service December 15, 2022 Assessment & Plan (1) Afib: (2) Acute pancreatitis: (3) Cholecystitis: (4) S/P laparoscopic cholecystectomy: (5) Hypertension: Plan IMPRESSION: 72-year-old female without significant cardiac past medical history. Admitted for acute pancreatitis and cholecystitis. S/p lap Cholecystectomy and ERCP. Decline in clinic status- metabolic acidosis. During admission found to have new onset PAF in the setting of acute illness. Briefly on amiodarone- bradycardic rates 12/13 ~130pm. Amio stopped and metoprolol held. No PAF noted over night. [id number] score- 3 (age, female, HTN) Tele: NSR with PACs 70-80s. PLAN: -Hold SAND TEMPERER Losartan due to low BP readings and ARF. Renal function continues to decline. Appreciate nephrology input regarding ARF management. -Tomlinson placed for accurate I&O -Replace electrolytes as needed- potassium goal of 4.0 and mag goal of 2.0. -Amio stopped due to bradycardic rates (12/13). -Restart low dose BB, metoprolol succinate 12.5 mg daily. Continue to monitor on telemetry. -Heparin remains on hold, no further PAF seen on tele. PACs noted. Case discussed with Dr. Costello. Will follow. Admission and Anticipated Discharge Date Admission Date: December 09, 2022 Supervising Physician Co-Signing Physician Notes I have personally seen and examined the patient along with Mago ISLAS. Progressive renal failure and acidosis noted per a.m. labs. Oxygen saturations 99% on 3 L nasal cannula. Patient denies chest pain or palpitations. No recurrent atrial fibrillation overnight. Amiodarone and metoprolol on hold. IV heparin discontinued due to blood in MIMI drain. Hemoglobin stable. The medical record and all available studies have been reviewed. PE: VSS. GEN: ill appearing. AAO x3. Heart: Regular rhythm, normal S1-S2. No murmur. Lungs: Diminished breath sounds at the bases bilateral.+ Crackles at the bases. Extremities: No edema. After discussion with Mago ISLAS, I fully agree with the assessment and plan as documented above. Restart metoprolol at reduced dose, 12.5 mg twice daily. Patient appears volume overloaded due to IV hydration. Will place IV fluids on hold currently. Will discuss with nephrology. Subjective 72-year-old female new onset paroxysmal A-fib in setting of acute pancreatitis and cholangitis. 12/10: Episode of PAF status post surgery on 12/10 lasting approximately 20 minutes around 20 1:14 PM on telemetry. Patient converted to sinus rhythm spontaneously. 12/11: Metoprolol tartrate increased to 25 mg twice daily. Did not start anticoagulation due to brief duration of A-fib. Losartan held for low blood pressure readings At approximately 7:45 PM patient went into rapid A-fib with heart rates in the 170s to 180s. IV amiodarone started per primary team. Was also given x1 dose of Digoxin. 12/12: Lab work indicated worsening renal function with a creatinine of 2.17. Sodium mildly low.IV fluids started per primary team. Nephrology consulted. Tele: Ongoing episodes of PAF with rates as high as 160s. Maintaining NSR- converted around 1-2 am. 12/13: Increased confusion and shortness of breath. CXR: 1. Slight increase in small bilateral pleural effusions and associated bibasilar opacities which favor atelectasis. An infectious process could appear similar although is considered less likely. 2. Low lung volumes, unchanged. Low urine output- Tomlinson placed per nephro. Labs: Worsening serum creatinine (2.17>>3.25) baseline ~0.8. IV heparin stopped- concerns for large output from MIMI drain and need for repeat ERCP and larger stent placement. Tele: SR with PACs- 80 bpm. No PAF, Low HR into the 40s yesterday afternoon around 130pm- amiodarone stopped. Metoprolol reduced to 25 mg TID. 12/14: Tele: NSR 70-80s with PACs, No PAF. Having bradycardic rates- metoprolol stopped. Labs: Scr now 4.73>>5.16 12/15: Tele: SR with frequent PACs, 70-90s. No bradycardia or pauses. Labs: Scr 5.16>>5.89 CXR: Cardiomegaly with pulmonary vascular congestion. Unchanged small pleural effusions with bibasilar consolidation favoring atelectasis. Hypoinflation. Upon entrance into the room patient resting in bed comfortably after getting cleaned up. No acute concerns. Denies chest pain. Has intermittent SOB- uses supplemental o2. Having a lot of anxiety per nursing. Boyfriend, Horacio, at bedside. Review of Systems Review of Systems: All systems reviewed & are unremarkable except as noted in HPI & below Physical Exam Constitutional: WD/WN, vitals as above + ill appearing; no acute distress and + uncomfortable Eyes: PERRL, conjunctivae normal, anicteric sclerae Neck: normal visual inspection and trachea midline Respiratory: normal respiratory effort, lungs clear to auscultation + labored breathing and + tachypneic; no respiratory distress and no cough Auscultation: + diminished lung sounds and + rales; no rhonchi and no wheezes Cardiovascular: RRR, no murmur, no edema Heart Sounds: normal S1 and normal S2; no murmur Vessels: no JVD Extremities: + edema (chronic BLLE lymph edema, non pitting ) Gastrointestinal (Abdomen): Inspection/Auscultation: abdomen normal to inspection and normal bowel sounds; abdomen not distended and no abdominal edema Percussion/Palpation: abdomen soft; abdomen nontender Musculoskeletal: no cyanosis or clubbing, extremities motor strength 5/5 Psychiatric: Orientation: alert and oriented x 3 (intermittent periods of confusion) Results & Data Vital Signs (Past 12 Hours) Vital Signs Temp Pulse Pulse Resp BP BP Pulse Ox 12/15/22 07:20 36.5 C 65 18 145/70 H 97 12/15/22 02:27 36.6 C 89 16 145/75 H 96 12/14/22 23:08 63 12/14/22 22:38 36.8 C 81 21 132/75 94 12/14/22 20:45 O2 Del Method O2 Flow Rate 12/15/22 07:20 Nasal Cannula 2 12/15/22 02:27 Nasal Cannula 4 12/14/22 23:08 12/14/22 22:38 Nasal Cannula 3 12/14/22 20:45 Nasal Cannula 4 Laboratory Results Cardiac Enzymes 12/15/22 Range/Units 06:57 AST 22 (13-39) U/L CBC 12/15/22 Range/Units 06:57 WBC 22.07 H (4.8-10.8) K/ul RBC 4.30 (4.20-5.40) M/uL Hgb 12.8 (12.0-16.0) g/dl Hct 36.8 L (37.0-47.0) % Plt Count 181 (130-400) K/uL Comprehensive Metabolic Panel 12/14/22 12/15/22 Range/Units 16:30 06:57 Sodium 133 L 133 L (136-145) mmol/L Potassium 3.2 L 3.4 L (3.5-5.1) mmol/L Chloride 100 99 (98-107) mmol/L Carbon Dioxide 14 L 17 L (21-32) mmol/L BUN 84 H 84 H (6-23) mg/dl Creatinine 5.16 H* D 5.89 H* D (0.6-1.2) mg/dl Glucose 106 H 187 H (70-99(Fasting)) mg/dl Calcium 6.5 L 6.5 L (8.5-10.1) mg/dl AST 22 (13-39) U/L ALT 34 (7-52) U/L Alkaline Phosphatase 77 (34-104) U/L Total Protein 6.1 (6.0-8.3) gm/dl Albumin 2.6 L (3.4-5.0) gm/dl Intake and Output 12/14/22 12/15/22 12/15/22 22:59 06:59 14:59 Intake Total 120 / 918.557 498.557 / 069.029 8009 / 1115 Output Total 80 / 280 50 / 50 Balance 40 / 638.557 498.557 / 443.514 1428 / 1065 Intake: IV 120 / 918.557 498.557 / 158.512 3984 / 1115 Amiodarone / D5w 360 mg In 200 0.257 / 0.257 ml @ 0.5 MG/MIN 16.667 mls/hr IV .Q12H [facility] Rx#:[id number] Heparin Sodium/Dextrose 25,000 390.8 / 390.8 units In 500 ml @ 0 UNITS/HR IV .Q0M [facility] Rx#:[id number] Piperacillin/Tazobactam 4.5 gm 120 / 227.5 107.5 / 227.5 In Dextrose 5% 100 ml @ 30 mls/ hr IV Q12H [facility] Rx#:[id number] Sodium Bicarbonate 8.4% 100 meq 1115 / 1115 Potassium Chloride 30 meq In Dextrose 5% 1,000 ml @ 80 mls/ hr IV .[id number] [facility] Rx#:[id number] Output: Urine Amount (Catheter) 50 / 200 Tomlinson/Indwelling 50 / 200 Drain Output 30 / 80 50 / 50 MIMI #1 30 / 80 50 / 50 # Bowel Movements 0 / 0 Other: Other Intake Source NPO this shift. (2) Acute pancreatitis Acute pancreatitis complication: unspecified Pancreatitis type: unspecified pancreatitis type Qualified Code(s): K85.90 - Acute pancreatitis without necrosis or infection, unspecified
[2022-12-15] MEDS: INSULIN ASPART PER UNIT CHARGE SC SCH ×4 (08:00→20:20)
[2022-12-15] MEDS: methIMAzole 5 MG TABLET PO SCH (08:38)
[2022-12-15] MEDS: SERTRALINE HCL 50 MG TABLET PO SCH (08:38)
[2022-12-15] MEDS: CALCIUM CARBONATE 1,250 MG/5 ML UDC PO SCH ×2 (08:38→20:19)
[2022-12-15] MEDS: DEXTROSE 5% IV SCH (08:39)
[2022-12-15] MEDS: POTASSIUM CHLORIDE IV SCH (08:39)
[2022-12-15] MEDS: SODIUM BICARBONATE IV SCH (08:39)
[2022-12-15] MEDS: DOCUSATE SODIUM/SENNA 50/8.6MG TAB PO SCH ×2 (08:43→20:19)
[2022-12-15] MEDS ORDERED: POTASSIUM CHLORIDE / WTR 10 MEQ/100 ML PLCT IV ONE (08:56)
--- NOTE | 2022-12-15 09:30 | Surgery Progress Note ---
Date of Service December 15, 2022 Assessment & Plan (1) Hx laparoscopic cholecystectomy: Plan: 12/15/22 POD#4 status post laparoscopic cholecystectomy Chest x-ray from today shows cardiomegaly and pulmonary vascular congestion (cardiology following) Today Labs shows a white count at 22.07 virtually unchanged Liver function test normal minimally elevated bilirubin at 1.5 Creatinine 5.89 minimally elevated from yesterday (nephrology following) Subhepatic drain volume minimal 50 cc nonbilious slight serosanguineous Discussed with gastroenterology we will not proceed with an ERCP at this time We will restart a diet full liquid Leave subhepatic drain in and plan to leave it in for some time Plan Restart diet full liquid Admission and Anticipated Discharge Date Admission Date: December 09, 2022 Subjective Patient denies any complaints at this time denies any abdominal discomfort Had been scheduled for an ERCP today but that was canceled Physical Exam Physical Exam: Quite alert coherent sitting up in bed in no distress Sclera nonicteric No audible rales or rhonchi The abdomen is soft no tenderness drainage right upper quadrant serous minimally sanguinous but no bilious staining +1 pedal edema Results & Data Vital Signs (Past 12 Hours) Vital Signs Temp Pulse Pulse Resp BP BP Pulse Ox 12/15/22 08:00 12/15/22 07:20 36.5 C 65 18 145/70 H 97 12/15/22 02:27 36.6 C 89 16 145/75 H 96 12/14/22 23:08 63 12/14/22 22:38 36.8 C 81 21 132/75 94 O2 Del Method O2 Flow Rate 12/15/22 08:00 Nasal Cannula 12/15/22 07:20 Nasal Cannula 2 12/15/22 02:27 Nasal Cannula 4 12/14/22 23:08 12/14/22 22:38 Nasal Cannula 3
[2022-12-15] MEDS: METOPROLOL SUCC 25MG EXT REL TAB PO SCH (11:36)
--- NOTE | 2022-12-15 12:04 | Gastroenterology Progress Note ---
Date of Service December 15, 2022 Assessment & Plan (1) Acute pancreatitis: Plan: Resolving w cholecystectomy, ERCP, IV fluids. (2) Bile leak from gallbladder bed: Plan: Resolving post ERCP w stenting Plan She is clinically improving with decreasing output from the surgical drain, minimal appearance of bile in the drain. - No indication for repeat ERCP/ stent change or other GI procedure at this point. - Regular consistency low-fat diabetic diet. -Plan for repeat ERCP in 2 months to remove the CBD stent. Care of the surgical drain per surgery. GI will sign off, please contact us if new or worsening GI issues. Admission and Anticipated Discharge Date Admission Date: December 09, 2022 Supervising Physician Co-Signing Physician Notes I performed a history and physical examination of the patient today, including specifically on physical exam - soft abdomen. I have discussed the patient's management with the advanced practitioner. Please refer to the nurse practitioner's note for the documented findings and plan of care. Drain is decreasing in amount and not obviously bilious. Plan to continue to observe for now. Recall GI if needed. Subjective 72yr f, post open cholecystectomy early on 12/10 followed by ERCP for bile leak on 12/10. Patient had moderately large volume of bilious drainage into the surgical MIMI collection but significantly decreased over the last 24 hours, now with approximately 90 cc minimal bilious mostly serosanguineous drainage over the last 14 hours. She is awake and alert although gets confused and frustrated but is easily reoriented. Review of Systems Constitutional: + fatigue, + malaise and + anorexia; no fever and no chills Eyes: no problem reported Ear, Nose, Mouth, Throat: No hearing deficits, no ear pain. Respiratory: Denies any SOB Cardiovascular: Additional Comments: Denies any irregular heartbeats, CP or new edema Gastrointestinal: + mild/moderate diffuse abd pain reported, improved w pain meds. Genitourinary: no dysuria, no difficulty urinating and no urinary frequency Musculoskeletal: no back pain, no neck pain, no joint pain and no stiffness Integumentary: + jaundice, no rashes, no itching Neurologic: + generalized weakness and + confusion (reported last night. ); no tremor(s), no headache(s) and no memory loss Psychiatric: no problem reported Allergy / Immunological: no wheezing, no dyspnea and no rash Physical Exam Constitutional: + ill appearing (Improving), cooperative and + overweight ENMT: external ear and nose normal, oropharynx normal Neck: trachea midline, no thyromegaly Respiratory: normal respiratory effort, lungs clear to auscultation Cardiovascular: RRR, no murmur, no edema Gastrointestinal (Abdomen): Inspection/Auscultation: normal bowel sounds Percussion/Palpation: + abdomen tender (Moderate diffuse) and abdomen soft Dressings intact and dry. Drain to MIMI in place, draining serosanguineous with small amounts of bile. Musculoskeletal: Generally weak but able to move all 4 extremities turn side to side sit up with some help. Skin: no rashes, warm and dry No jaundice Neurologic: PERRL, EOMI, accommodation nl, no face palsy, no dysarthria Psychiatric: Affect: + flat affect (slightly) Lymphatic: no cervical or axillary lymphadenopathy Results & Data Vital Signs (Past 12 Hours) Vital Signs Temp Pulse Resp BP BP Pulse Ox O2 Del Method 12/15/22 11:08 36.3 C L 87 17 145/72 H 99 Nasal Cannula 12/15/22 08:00 Nasal Cannula 12/15/22 07:20 36.5 C 65 18 145/70 H 97 Nasal Cannula 12/15/22 02:27 36.6 C 89 16 145/75 H 96 Nasal Cannula O2 Flow Rate 12/15/22 11:08 3 12/15/22 08:00 12/15/22 07:20 2 12/15/22 02:27 4 Laboratory Results T. bili 1.5, AST 22, ALT 34, alk phos 77, albumin 2.6 WBC 22, Hb 12.8, HCT 36.8, PLT S1 81, NA 133, K3.4, CL 90, CO2 17, BUN 84, CR 5.87 (1) Acute pancreatitis Acute pancreatitis complication: unspecified Pancreatitis type: unspecified pancreatitis type Qualified Code(s): K85.90 - Acute pancreatitis without necrosis or infection, unspecified
--- NOTE | 2022-12-15 15:04 | Hospitalist Progress Note ---
Date of Service December 15, 2022 Assessment & Plan (1) Acute pancreatitis: (2) Nausea and vomiting: Plan: Possible related togallstone related pancreatitis Present on admission with abdominal pain that radiating to back associating with vomiting and nausea CT abd/pel showedperipancreatic fat stranding is seen concerning for pancreatitis. Prominence of the gallbladder may be reactive or less likely may represent acute cholecystitis. Abdomen u/s showedgallbladder is distended and full of stones/sludge as detailed above. Findings are suspicious for acute cholecystitis. Lipase above 4000's on admission, Lipase 2960--> then 678 Elevated LFT with AST 313 and ALT 536 S/p Lap chol and ERCPwith sphincterotomy and balloon sweeping of the bile duct for stones and puswith stent placement on 12/10/22 Acute cholangitis Transaminitis Sepsis. Per my chart review, patient did meet SIRS criteria with tachycardia and tachypnea. WBC was 11k on day of admission and increased to 30+K the next day LFTs normalized Hb is stable at 12.8 Gen surg and GI on board MIMI drain is reducing. ERCP deferred. Continue liquid diet per surgery Heparin drip on hold Continue broad spectrum antibiotic with IV Zosyn Still leukocytosis today at 22K Blood and urine culture negative at this time Surgery plan to keep the MIMI drain for now Continue monitor CBC and liver enzymes Continue to encourage incentive spirometry and flutter Wean off oxygen as tolerated Paroxysmal Afib Cardiology on board Heparin on hold as above Off amio drip ECHO showed normal LV wall function. EF 65 to 70 % Cardiology started metoprolol succinate 12.5 mg daily Discussed with Cards. Hold off IVF for now SAMMY Worsening renal function. Creatinine increased to 5.89 K is 3.4 Metabolic acidosis Discussed with assistant director of admissions Replete K. No dialysis for now Recommended getting a CT abd Monitor renal function Continue to hold Losartan Avoid nephrotoxic agents Elevated Glucose Possible related to pancreatitis Recent Hba1c 6.1 continue monitor BS HTN Currently stable Losartan on hold Continue monitor BP Hyperthyroidism Continue Methimazole Anxiety Continue Sertraline Code status full code DVT px SCD. Hep gtt on hold as above Updated patient and boyfriend who was at bedside I spent a total of 55 minutes coordinating, documenting and providing care for this patient excluding time spent in performance of separately billed services Admission and Anticipated Discharge Date Admission Date: December 09, 2022 Subjective Patient seen and examined Reports generalized weakness. Denies any headache, nausea, abdominal pain, vomiting. Reports some cough. Reports some shortness of breath with exertion. Denies chest pain No fevers or chills Physical Exam Constitutional: no acute distress Eyes: PERRL, conjunctivae normal, anicteric sclerae ENMT: external ear and nose normal, oropharynx normal Respiratory: On nasal cannula. Diminished breath sounds lung bases Cardiovascular: Rate/Rhythm: regular rate and regular rhythm S1-S2 Gastrointestinal (Abdomen): normal bowel sounds, soft, nontender, no hepatosplenomegaly Musculoskeletal: Bilateral pedal edema Neurologic: PERRL, EOMI, accommodation nl, no face palsy, no dysarthria Psychiatric: Orientation: alert, oriented to person, oriented to place and cooperative; + not oriented to time Results & Data Results & Data Vital Signs (Past 12 Hours) Vital Signs Temp Pulse Pulse Resp BP Pulse Ox O2 Del Method 12/15/22 14:15 88 12/15/22 11:08 36.3 C L 87 17 145/72 H 99 Nasal Cannula 12/15/22 08:00 Nasal Cannula 12/15/22 07:20 36.5 C 65 18 145/70 H 97 Nasal Cannula O2 Flow Rate 12/15/22 14:15 12/15/22 11:08 3 12/15/22 08:00 12/15/22 07:20 2 Laboratory Results Abnormal lab results 12/14/22 12/14/22 12/15/22 Range/Units 16:30 20:01 06:57 WBC 22.07 H (4.8-10.8) K/ul Hct 36.8 L (37.0-47.0) % RDW Coeff of Mandy 14.7 H (11.5-14.5) % Sodium 133 L (136-145) mmol/L Potassium 3.2 L (3.5-5.1) mmol/L Carbon Dioxide 14 L (21-32) mmol/L Anion Gap 19 H (3-11) BUN 84 H (6-23) mg/dl Creatinine 5.16 H* D (0.6-1.2) mg/dl Glucose 106 H (70-99(Fasting)) mg/dl POC Glucose 134 H (70-99) mg/dl Calcium 6.5 L (8.5-10.1) mg/dl Phosphorus (2.5-4.9) mg/dl Total Bilirubin (0.2-1.0) mg/dl Albumin (3.4-5.0) gm/dl Albumin/Globulin Ratio (0.9-2) 12/15/22 12/15/22 12/15/22 Range/Units 06:57 07:21 11:07 WBC (4.8-10.8) K/ul Hct (37.0-47.0) % RDW Coeff of Mandy (11.5-14.5) % Sodium 133 L (136-145) mmol/L Potassium 3.4 L (3.5-5.1) mmol/L Carbon Dioxide 17 L (21-32) mmol/L Anion Gap 17 H (3-11) BUN 84 H (6-23) mg/dl Creatinine 5.89 H* D (0.6-1.2) mg/dl Glucose 187 H (70-99(Fasting)) mg/dl POC Glucose 192 H 171 H (70-99) mg/dl Calcium 6.5 L (8.5-10.1) mg/dl Phosphorus 5.5 H (2.5-4.9) mg/dl Total Bilirubin 1.5 H (0.2-1.0) mg/dl Albumin 2.6 L (3.4-5.0) gm/dl Albumin/Globulin Ratio 0.7 L (0.9-2) (1) Acute pancreatitis Acute pancreatitis complication: unspecified Pancreatitis type: unspecified pancreatitis type Qualified Code(s): K85.90 - Acute pancreatitis without necrosis or infection, unspecified (2) Nausea and vomiting Vomiting type: unspecified Qualified Code(s): R11.2 - Nausea with vomiting, unspecified
--- NOTE | 2022-12-15 15:37 | Nephrology Progress Note ---
Date of Service December 15, 2022 Assessment & Plan (1) SAMMY (acute kidney injury): Plan: baseilne creatinine 0.8; progressive stage 3 SAMMY w/o oliguria so far ischemic ATN multifactorial including IV contrast, poor po intake prior to admission (presenting s.g. on UA > 1045), continued losartan in setting of above (last dose 12/11), sepsis from pancreatitis/cholecystitis, then compounded by poor renal perfusion w/ ongoing pAF and hypotension for several days though this instability resolved by December 13 for the most part. there will be some delay in creatinine levels relative to clinical events so expect it given hemodynamics 12/11 to worsen before it stabilizes. chemistries okay though worsening. volume status ok on exam and per CXR 12/13. December 13 urinalysis reassuring and without suggestion of infection Today with slowly progressive volume overload and ongoing increasing creatinine, though the rate of increase has slowed slightly -With hypokalemia today due to GI losses; cautious repletion with 10 mill equivalents IV -Now with anion gap metabolic acidosis whether from sepsis, worsening renal failure No IV fluid currently and none indicated -strict I/O Daily basic metabolic panel -no indication for dialysis currently but cannot rule out need to this admission; I did discuss this with the patient and her family today, letting them know the next 24 to 48 hours may be crucial in terms of needing dialysis or not -Given progressive renal dysfunction, recommend repeat renal imaging for completeness; ultrasound not feasible so shortly after surgery and will pursue CTA per primary service >> Continue to hold vesicare now that she has catalan; look to resume possibly at lower dose after renal function improves Care coordinated w/ Dr Cuellar Admission and Anticipated Discharge Date Admission Date: December 09, 2022 Subjective Seen on a.m. rounds. ERCP had been contemplated for today but was ultimately deferred since MIMI drain output amount and bile content have both diminished. Ongoing exertional dyspnea. Later in the day cardiology stop fluids due to concerns about fluid overload. Patient complains of ongoing fatigue and generalized weakness Review of Systems Review of Systems: All systems reviewed & are unremarkable except as noted in Subjective Physical Exam Constitutional: well developed and well nourished; no acute distress Eyes: EOM intact bilaterally ENMT: Ears: no external ear abnormality Nose: no external nose abnormality Mouth: + dry oral mucous membranes Neck: no nuchal rigidity Respiratory: normal respiratory effort and + paradoxical thoraco-abdominal movement; no respiratory distress Auscultation: + diminished lung sounds (markedly) Cardiovascular: Rate/Rhythm: regular rate and regular rhythm Extremities: no edema Gastrointestinal (Abdomen): Inspection/Auscultation: normal bowel sounds; + abdomen abnormal to inspection (Right upper quadrant drain) Percus maria/Palpation: abdomen soft; abdomen nontender Musculoskeletal: Extremities: + abnormal strength (cannot situp w/o asst; BLE weak) Skin: no rashes, warm and dry Psychiatric: Orientation: alert, oriented x 3, oriented to person and cooperative Results & Data Vital Signs (Past 12 Hours) Vital Signs Temp Pulse Pulse Resp BP Pulse Ox O2 Del Method 12/15/22 15:04 36.5 C 52 L 18 121/70 97 Nasal Cannula 12/15/22 14:15 88 12/15/22 11:08 36.3 C L 87 17 145/72 H 99 Nasal Cannula 12/15/22 08:00 Nasal Cannula 12/15/22 07:20 36.5 C 65 18 145/70 H 97 Nasal Cannula O2 Flow Rate 12/15/22 15:04 3 12/15/22 14:15 12/15/22 11:08 3 12/15/22 08:00 12/15/22 07:20 2 Laboratory Results 12/15/22 06:57 12/15/22 06:57 Diagnostic Findings Chest x-ray reviewed from today
--- NOTE | 2022-12-15 16:55 | CT Scan Report ---
CT OF THE ABDOMEN WITHOUT CONTRAST CLINICAL HISTORY: Assess kidneys. Worsening renal function. COMPARISON STUDY: CT of the abdomen and pelvis December 09, 2022. TECHNIQUE: Axial images of the abdomen were obtained without IV contrast. Automated exposure control was utilized for the study. A dose lowering technique was utilized adhering to the principles of ALA RA. FINDINGS: Interval development of small bilateral pleural effusions. Associated lower lobe airspace o pacities favor atelectasis. There are also mild groundglass opacities within the lower lungs. Evaluat ion of the abdomen and pelvis is suboptimal on this unenhanced examination. Pneumoperitoneum is posts urgical. A surgical drain is in place following cholecystectomy. A small amount of mixed attenuation material within the cholecystectomy bed is expected in the early postoperative setting. Interval plac ement of a common bile duct stent is noted. Pneumobilia is expected. There is no biliary ductal dilat ation. Postoperative findings within the subcutaneous tissues of the right anterior abdominal wall ar e noted. Extensive peripancreatic stranding and fluid shown on prior CT. This represents severe acute pancreatitis, suboptimally assessed on this unenhanced exam. No well-defined peripancreatic fluid co llection is noted. Unenhanced images of the spleen, adrenal glands are unremarkable. Multiple bilater al renal calculi measure up to 1 cm. There is no hydronephrosis. Mild multifocal renal scarring is pr esent. Visualized portions of the colon are mildly distended and fluid-filled. IMPRESSION: 1. No hydronephrosis. Bilateral nephrolithiasis. Mild multifocal bilateral renal scarring. 2. Expected findings following recent cholecystectomy with drain placement, as described above. Bilia ry stent in place. 3. Evidence for severe pancreatitis, as shown on prior CT. This is suboptimally assessed on this unen hanced exam. 4. Small bilateral pleural effusions with associated lower lobe opacity suggestive of atelectasis. Ad ditional mild groundglass opacities within the lower lungs could reflect an infectious process or mil d alveolar edema. ACT 112: Negative or not required by law. Electronically signed by: Brent Estrada M.D. 12/15/2022 4:53 PM
--- NOTE | 2022-12-15 21:31 | Post Operative Brief Note ---
Immediate Post Op Note v1 Date of Surgery December 15, 2022 Pre & Post Diagnosis Operation Date: 12/14/22 09 I identified the patient and participated in the time-out.: Yes Procedure Operation Date: 12/14/22 09:00 [facility] [employer] To [facility] for laparoscopic cholecystectomy Estimated Blood Loss 30 Drains Yosef-Flower Drain (19round)
--- NOTE | 2022-12-15 23:40 | Electrocardiogram Report ---
Test Reason : Blood Pressure : / mmHG Vent. Rate : 106 BPM Atrial Rate : 113 BPM P-R Int : 000 ms QRS Dur : 082 ms QT Int : 350 ms P-R-T Axes : 000 -09 054 degrees QTc Int : 464 ms Poor data quality, interpretation may be adversely affected Atrial fibrillation with rapid ventricular response Cannot rule out Anterior infarct , age undetermined Possible Inferior infarct Nonspecific T wave abnormality Abnormal ECG When compared with ECG of 11-DEC-2022 19:43, Vent. rate has decreased BY 65 BPM Minimal criteria for Anterior infarct are now Present Confirmed by Sean Medina ([id number]) on 12/15/2022 11:40:37 PM Referred By: REFERRED SELF Confirmed By:Sean Medina
[2022-12-16] MEDS: PIPERACILLIN/TAZOBACTAM 4.5 GM in DEXTROSE 5% 100 ML IV SCH ×2 (02:12→14:09)
[2022-12-16] MEDS ORDERED: ACETAMINOPHEN 325 MG TAB PO STA (05:30)
[2022-12-16 07:32] LABS: Hematocrit (blood only) 35.5 % (37.0-47.0); Hemoglobin 12.4 g/dl (12.0-16.0); Mean Corpuscular Hgb Conc 34.9 g/dL (32.0-36.0); Mean Corpuscular Volume 85.7 fL (80.0-100.0); Mean Platelet Volume 10.6 fL (9.4-12.4); Platelet Count 231 K/uL (130-400); RDW Standard Deviation 46.9 fL (36.4-46.3); Red Blood Count 4.14 M/uL (4.20-5.40); White Blood Count 23.18 K/ul (4.8-10.8)
[2022-12-16] MEDS: ONDANSETRON INJ 2 MG/ML 2 ML VIAL IV PRN (07:48)
[2022-12-16] MEDS: MoRPHine SULFATE 2 MG/ML CARP IV PRN (07:48)
[2022-12-16] MEDS: INSULIN ASPART PER UNIT CHARGE SC SCH ×4 (07:55→20:32)
[2022-12-16 08:04] LABS: Albumin Globulin Ratio 0.7 (0.9-2); Albumin Level 2.4 gm/dl (3.4-5.0); BUN Creatinine Ratio 13.8 (10-20); Bilirubin,Total 1.4 mg/dl (0.2-1.0); Calcium 7.1 mg/dl (8.5-10.1); Creatinine Clr Calc Pharmacy 8.7 ml/min; Est GFR (African American) 6.5 ml/min; Est GFR (Non-African American) 5.6 ml/min; Globulin 3.4 gm/dl (2.5-4.0); Magnesium 2.4 mg/dl (1.7-2.4); Phosphorus 5.9 mg/dl (2.5-4.9); Potassium 3.6 mmol/L (3.5-5.1); Total Protein 5.8 gm/dl (6.0-8.3)
[2022-12-16] MEDS: METOPROLOL SUCC 25MG EXT REL TAB PO SCH ×2 (08:16→17:00)
[2022-12-16] MEDS: SERTRALINE HCL 50 MG TABLET PO SCH (08:16)
[2022-12-16] MEDS: methIMAzole 5 MG TABLET PO SCH (08:16)
[2022-12-16] MEDS: CALCIUM CARBONATE 1,250 MG/5 ML UDC PO SCH ×2 (08:16→21:37)
[2022-12-16] MEDS: DOCUSATE SODIUM/SENNA 50/8.6MG TAB PO SCH ×2 (08:18→21:37)
--- NOTE | 2022-12-16 09:58 | Surgery Progress Note ---
Date of Service December 16, 2022 Assessment & Plan (1) Hx laparoscopic cholecystectomy: Plan: 12/16/22 POD#4 status post laparoscopic cholecystectomy biliary stent Mental status is deteriorating compared to yesterday Subhepatic drainage appreciating more bilious content approximately 200 cc overnight Threatening continues to rise 6.69 this morning WBCs virtually unchanged approximately 23,000 Patient does have bowel drainage appreciated in the subhepatic drain but without any abdominal findings the bile leak is controlled 12/15/22 POD#4 status post laparoscopic cholecystectomy Chest x-ray from today shows cardiomegaly and pulmonary vascular congestion (cardiology following) Today Labs shows a white count at 22.07 virtually unchanged Liver function test normal minimally elevated bilirubin at 1.5 Creatinine 5.89 minimally elevated from yesterday (nephrology following) Subhepatic drain volume minimal 50 cc nonbilious slight serosanguineous Discussed with gastroenterology we will not proceed with an ERCP at this time We will restart a diet full liquid Leave subhepatic drain in and plan to leave it in for some time Plan Restart diet full liquid Admission and Anticipated Discharge Date Admission Date: December 09, 2022 Subjective less coherent this morning but appears comfortable Physical Exam Physical Exam: Mental status appears to be deteriorating as not as coherent as yesterday The abdomen is benign subhepatic drainage tube with increase bilious drainage yesterday was relatively clear Results & Data Vital Signs (Past 12 Hours) Vital Signs Temp Pulse Pulse Resp BP Pulse Ox O2 Del Method 12/16/22 07:23 36.5 C 59 L 18 127/71 95 Nasal Cannula 12/16/22 07:19 91 H 12/16/22 03:42 36.6 C 74 18 144/80 H 94 Nasal Cannula 12/16/22 00:16 98 H 12/15/22 22:00 36.6 C 89 20 131/74 96 Nasal Cannula O2 Flow Rate 12/16/22 07:23 3 12/16/22 07:19 12/16/22 03:42 3 12/16/22 00:16 12/15/22 22:00 3
--- NOTE | 2022-12-16 10:28 | Nephrology Progress Note ---
Date of Service December 16, 2022 Assessment & Plan Admission and Anticipated Discharge Date Admission Date: December 09, 2022 Subjective Assessment & Plan (1) SAMMY (acute kidney injury): Plan: baseline creatinine 0.8--Now 6.7 progressive SAMMY w/o oliguria so far. urine 350 overnight in 12 hrs. ischemic ATN --Sepsis and Contrast. sepsis from pancreatitis/cholecystitis, then compounded by poor renal perfusion w/ ongoing pAF and hypotension for several days . Creat still rising. chemistries okay though worsening. volume status ok on exam and per CXR No IV fluid currently and none indicated -strict I/O Daily basic metabolic panel -no indication for dialysis currently but cannot rule out need to this admission. I did discuss this with the patient and her family today, letting them know the next 48 hours may be crucial in terms of needing dialysis or not. At the current rate of rise of creatinine we still have about 2 days before we will be compelled to do dialysis. -repeat renal imaging --no Hydronephrosis. Incidental stones. --Continue to hold vesicare now that she has catalan; look to resume possibly at lower dose after renal function improves Subjective No new issues. Some pain overnight. making urine. Labs still worse. allowed to drink now. Review of Systems Review of Systems: All systems reviewed & are unremarkable except as noted in Subjective Physical Exam Constitutional: well developed and well nourished; no acute distress Eyes: EOM intact bilaterally ENMT: Ears: no external ear abnormality Nose: no external nose abnormality Mouth: + dry oral mucous membranes Neck: no nuchal rigidity Respiratory: normal respiratory effort and + paradoxical thoraco-abdominal movement; no respiratory distress Auscultation: + diminished lung sounds (markedly) Cardiovascular: Rate/Rhythm: regular rate and regular rhythm Extremities: no edema Gastrointestinal (Abdomen): Inspection/Auscultation: normal bowel sounds; + abdomen abnormal to inspection (Right upper quadrant drain) Percussion/Palpation: abdomen soft; abdomen nontender Musculoskeletal: Extremities: + abnormal strength (cannot situp w/o asst; BLE weak) Skin: no rashes, warm and dry Psychiatric: Orientation: alert, oriented x 3, oriented to person and cooperative Results & Data Vital Signs (Past 12 Hours) Vital Signs Temp Pulse Pulse Resp BP Pulse Ox O2 Del Method 12/16/22 07:23 36.5 C 59 L 18 127/71 95 Nasal Cannula 12/16/22 07:19 91 H 12/16/22 03:42 36.6 C 74 18 144/80 H 94 Nasal Cannula 12/16/22 00:16 98 H O2 Flow Rate 12/16/22 07:23 3 12/16/22 07:19 12/16/22 03:42 3 12/16/22 00:16
--- NOTE | 2022-12-16 12:00 | Hospitalist Progress Note ---
Date of Service December 16, 2022 Assessment & Plan (1) Acute pancreatitis: (2) Nausea and vomiting: Plan: Possible related togallstone related pancreatitis Present on admission with abdominal pain that radiating to back associating with vomiting and nausea CT abd/pel showedperipancreatic fat stranding is seen concerning for pancreatitis. Prominence of the gallbladder may be reactive or less likely may represent acute cholecystitis. Abdomen u/s showedgallbladder is distended and full of stones/sludge as detailed above. Findings are suspicious for acute cholecystitis. Lipase above 4000's on admission, Lipase 2960--> then 678 Elevated LFT with AST 313 and ALT 536 S/p Lap chol and ERCPwith sphincterotomy and balloon sweeping of the bile duct for stones and puswith stent placement on 12/10/22 Acute cholangitis Transaminitis Sepsis. Per my chart review, patient did meet SIRS criteria with tachycardia and tachypnea. WBC was 11k on day of admission and increased to 30+K the next day LFTs normalized Hb is stable at 12.4 Gen surg and GI on board MIMI drain is increased, 200cc since midnight per i/O. Continue liquid diet per surgery Continue broad spectrum antibiotic with IV Zosyn Still leukocytosis today at 23K Blood and urine culture negative at this time Surgery plan to keep the MIMI drain for now Continue monitor CBC and liver enzymes Continue to encourage incentive spirometry and flutter Wean off oxygen as tolerated Paroxysmal Afib Off amio drip ECHO showed normal LV wall function. EF 65 to 70 % Continue metoprolol succinate may need dose adjustment Discussed with Cards. Heparin drip on hold considering comorbidities: severe pancreatitis/risk of hemorrhagic pancreatitis, recent surgery SAMMY Worsening renal function. Creatinine increased to 6.69 K is 3.6 Metabolic acidosis Still making urine. 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 He recommends to continue current management. No HD at this time Monitor renal function Continue to hold Losartan Avoid nephrotoxic agents Elevated Glucose Possible related to pancreatitis Recent Hba1c 6.1 continue monitor BS Hypertension Currently stable Losartan on hold Continue monitor BP Hyperthyroidism Continue Methimazole Anxiety Continue Sertraline Code status full code DVT px SCD. Hep gtt on hold as above Updated boyfriend who was at bedside I spent a total of 55 minutes coordinating, documenting and providing care for this patient excluding time spent in performance of separately billed services Admission and Anticipated Discharge Date Admission Date: December 09, 2022 Subjective Patient seen and examined Currently confused but able to answer simple questions. Boyfriend was at bedside She reports weakness and poor appetite Denies any headache, nausea, abdominal pain, vomiting. Reports some cough. Denied shortness of breath Denies chest pain No fevers noted Physical Exam Constitutional: no acute distress Eyes: PERRL, conjunctivae normal, anicteric sclerae ENMT: external ear and nose normal, oropharynx normal Respiratory: On nasal cannula Diminished breath sounds Cardiovascular: Rate/Rhythm: + irregularly irregular S1 S2 Gastrointestinal (Abdomen): normal bowel sounds, soft, nontender, no hepatosplenomegaly MIMI drain with bilous drainage Neurologic: PERRL, EOMI, accommodation nl, no face palsy, no dysarthria Genitourinary: Tom[place]inson in situ Results & Data Results & Data Vital Signs (Past 12 Hours) Vital Signs Temp Pulse Pulse Resp BP BP Pulse Ox 12/16/22 11:26 36.7 C 89 18 125/72 94 12/16/22 07:23 36.5 C 59 L 18 127/71 95 12/16/22 07:19 91 H 12/16/22 03:42 36.6 C 74 18 144/80 H 94 12/16/22 00:16 98 H O2 Del Method O2 Flow Rate 12/16/22 11:26 Nasal Cannula 2 12/16/22 07:23 Nasal Cannula 3 12/16/22 07:19 12/16/22 03:42 Nasal Cannula 3 12/16/22 00:16 Laboratory Results Abnormal lab results 12/15/22 12/15/22 12/16/22 Range/Units 16:02 20:09 07:10 WBC 23.18 H (4.8-10.8) K/ul RBC 4.14 L (4.20-5.40) M/uL Hct 35.5 L (37.0-47.0) % RDW Std Deviation 46.9 H (36.4-46.3) fL RDW Coeff of Mandy 15.0 H (11.5-14.5) % Sodium (136-145) mmol/L Carbon Dioxide (21-32) mmol/L Anion Gap (3-11) BUN (6-23) mg/dl Creatinine (0.6-1.2) mg/dl Glucose (70-99(Fasting)) mg/dl POC Glucose 151 H 145 H (70-99) mg/dl Calcium (8.5-10.1) mg/dl Phosphorus (2.5-4.9) mg/dl Total Bilirubin (0.2-1.0) mg/dl Total Protein (6.0-8.3) gm/dl Albumin (3.4-5.0) gm/dl Albumin/Globulin Ratio (0.9-2) Procalcitonin (0-0.5) ng/ml 12/16/22 12/16/22 12/16/22 Range/Units 07:10 07:10 07:17 WBC (4.8-10.8) K/ul RBC (4.20-5.40) M/uL Hct (37.0-47.0) % RDW Std Deviation (36.4-46.3) fL RDW Coeff of Mandy (11.5-14.5) % Sodium 135 L (136-145) mmol/L Carbon Dioxide 19 L (21-32) mmol/L Anion Gap 16 H (3-11) BUN 92 H (6-23) mg/dl Creatinine 6.69 H* D (0.6-1.2) mg/dl Glucose 136 H (70-99(Fasting)) mg/dl POC Glucose 144 H (70-99) mg/dl Calcium 7.1 L (8.5-10.1) mg/dl Phosphorus 5.9 H (2.5-4.9) mg/dl Total Bilirubin 1.4 H (0.2-1.0) mg/dl Total Protein 5.8 L (6.0-8.3) gm/dl Albumin 2.4 L (3.4-5.0) gm/dl Albumin/Globulin Ratio 0.7 L (0.9-2) Procalcitonin 1.52 H (0-0.5) ng/ml 12/16/22 Range/Units 11:17 WBC (4.8-10.8) K/ul RBC (4.20-5.40) M/uL Hct (37.0-47.0) % RDW Std Deviation (36.4-46.3) fL RDW Coeff of Mandy (11.5-14.5) % Sodium (136-145) mmol/L Carbon Dioxide (21-32) mmol/L Anion Gap (3-11) BUN (6-23) mg/dl Creatinine (0.6-1.2) mg/dl Glucose (70-99(Fasting)) mg/dl POC Glucose 127 H (70-99) mg/dl Calcium (8.5-10.1) mg/dl Phosphorus (2.5-4.9) mg/dl Total Bilirubin (0.2-1.0) mg/dl Total Protein (6.0-8.3) gm/dl Albumin (3.4-5.0) gm/dl Albumin/Globulin Ratio (0.9-2) Procalcitonin (0-0.5) ng/ml (1) Acute pancreatitis Acute pancreatitis complication: unspecified Pancreatitis type: unspecified pancreatitis type Qualified Code(s): K85.90 - Acute pancreatitis without necrosis or infection, unspecified (2) Nausea and vomiting Vomiting type: unspecified Qualified Code(s): R11.2 - Nausea with vomiting, unspecified
[2022-12-16] MEDS: METOPROLOL TARTRATE 1 MG/ML VIAL IV PRN (12:25)
--- NOTE | 2022-12-16 14:20 | Cardiology Progress Note ---
Date of Service December 16, 2022 Assessment & Plan (1) Afib: (2) Acute pancreatitis: (3) Cholecystitis: (4) S/P laparoscopic cholecystectomy: (5) Hypertension: Plan IMPRESSION: 72-year-old female without significant cardiac past medical history. Admitted for acute pancreatitis and cholecystitis. S/p lap Cholecystectomy and ERCP. Decline in clinic status- metabolic acidosis. During admission found to have new onset PAF in the setting of acute illness. Briefly on amiodarone- bradycardic rates 3/15 ~130pm. Amio stopped and metoprolol held. No PAF noted over night. [id number] score- 3 (age, female, HTN) Tele: NSR with PACs 70-80s. PLAN: Increase metoprolol succinate to 12.5 mg twice per day Anticoagulation currently on hold. Admission and Anticipated Discharge Date Admission Date: December 09, 2022 Subjective Chart and telemetry reviewed. Patient still with paroxysmal atrial fibrillation with elevated heart rate response at times Results & Data Vital Signs (Past 12 Hours) Vital Signs Temp Pulse Pulse Resp BP BP Pulse Ox 12/16/22 12:25 155 H 12/16/22 11:26 36.7 C 89 18 125/72 94 12/16/22 07:23 36.5 C 59 L 18 127/71 95 12/16/22 07:19 91 H 12/16/22 03:42 36.6 C 74 18 144/80 H 94 O2 Del Method O2 Flow Rate 12/16/22 12:25 12/16/22 11:26 Nasal Cannula 2 12/16/22 07:23 Nasal Cannula 3 12/16/22 07:19 12/16/22 03:42 Nasal Cannula 3 (2) Acute pancreatitis Acute pancreatitis complication: unspecified Pancreatitis type: unspecified pancreatitis type Qualified Code(s): K85.90 - Acute pancreatitis without necrosis or infection, unspecified
[2022-12-17] MEDS: PIPERACILLIN/TAZOBACTAM 4.5 GM in DEXTROSE 5% 100 ML IV SCH ×2 (02:08→13:22)
[2022-12-17] MEDS: MoRPHine SULFATE 2 MG/ML CARP IV PRN (06:15)
[2022-12-17 07:05] LABS: Hematocrit (blood only) 35.4 % (37.0-47.0); Hemoglobin 12.1 g/dl (12.0-16.0); Mean Corpuscular Hemoglobin 29.4 pg (25.0-34.0); Mean Corpuscular Hgb Conc 34.2 g/dL (32.0-36.0); Mean Corpuscular Volume 86.1 fL (80.0-100.0); Mean Platelet Volume 10.2 fL (9.4-12.4); Platelet Count 254 K/uL (130-400); RDW Standard Deviation 43.7 fL (36.4-46.3); Red Blood Count 4.11 M/uL (4.20-5.40); White Blood Count 28.53 K/ul (4.8-10.8)
[2022-12-17 07:50] LABS: Albumin Globulin Ratio 0.7 (0.9-2); Albumin Level 2.4 gm/dl (3.4-5.0); BUN Creatinine Ratio 14.3 (10-20); Bilirubin,Total 1.4 mg/dl (0.2-1.0); Calcium 7.9 mg/dl (8.5-10.1); Est GFR (African American) 5.9 ml/min; Est GFR (Non-African American) 5.1 ml/min; Globulin 3.6 gm/dl (2.5-4.0); Magnesium 2.6 mg/dl (1.7-2.4); Phosphorus 7.8 mg/dl (2.5-4.9); Potassium 3.7 mmol/L (3.5-5.1)
[2022-12-17] MEDS: INSULIN ASPART PER UNIT CHARGE SC SCH ×4 (08:00→20:19)
[2022-12-17] MEDS: methIMAzole 5 MG TABLET PO SCH (08:38)
[2022-12-17] MEDS: SERTRALINE HCL 50 MG TABLET PO SCH (08:38)
[2022-12-17] MEDS: CALCIUM CARBONATE 1,250 MG/5 ML UDC PO SCH ×2 (08:39→20:26)
[2022-12-17] MEDS: DOCUSATE SODIUM/SENNA 50/8.6MG TAB PO SCH ×2 (08:42→20:50)
[2022-12-17] MEDS: METOPROLOL SUCC 25MG EXT REL TAB PO SCH ×2 (09:09→16:42)
--- NOTE | 2022-12-17 10:25 | Surgery Progress Note ---
Date of Service December 17, 2022 Assessment & Plan (1) Bile leak from gallbladder bed: Plan: 12/17/22 POD#6 status post laparoscopic cholecystectomy gangrenous cholecystitis with preop ERCP biliary stent Increased drainage from the subhepatic drain minimally bilious stained yellowish in nature appears purulent We will obtain cultures of the drainage Also obtain a CT scan of the abdomen without contrast Discussed the situation with the patient and significant other (2) Cholecystitis: Plan: 12/17/22 POD#6 status post laparoscopic cholecystectomy for gangrenous cholecystitis Plan Culture sensitivity of right upper quadrant drainage CT scan of the abdomen without contrast Admission and Anticipated Discharge Date Admission Date: December 09, 2022 Subjective Appears bit more alert and coherent today than yesterday significant other at bedside Denies any nausea minimal abdominal discomfort Physical Exam Physical Exam: Alert responds appropriately to conversation The sclera is nonicteric The abdomen soft no localized tenderness The subhepatic drain the output none bilious staining as yesterday appears more purulent in nature leaking around the tube at the skin level the sutures are still intact and retains vacuum seal without any air leak Some ecchymosis noted on the right flank Results & Data Vital Signs (Past 12 Hours) Vital Signs Temp Pulse Pulse Resp BP Pulse Ox O2 Del Method 12/17/22 08:00 77 12/17/22 08:00 Nasal Cannula 12/17/22 07:07 36.6 C 79 19 117/68 95 Nasal Cannula 12/17/22 04:40 89 12/17/22 02:33 36.6 C 148 H 22 93/68 L 96 Nasal Cannula 12/16/22 22:52 36.5 C 90 18 135/78 98 Nasal Cannula O2 Flow Rate 12/17/22 08:00 12/17/22 08:00 2 12/17/22 07:07 3 12/17/22 04:40 12/17/22 02:33 2 12/16/22 22:52 2 Laboratory Results Noted WBCs up to 28.53 creatinine up to 7.26
--- NOTE | 2022-12-17 10:47 | Hospitalist Progress Note ---
Date of Service December 17, 2022 Assessment & Plan (1) Acute pancreatitis: (2) Nausea and vomiting: Plan: Possible related togallstone related pancreatitis Present on admission with abdominal pain that radiating to back associating with vomiting and nausea CT abd/pel showedperipancreatic fat stranding is seen concerning for pancreatitis. Prominence of the gallbladder may be reactive or less likely may represent acute cholecystitis. Abdomen u/s showedgallbladder is distended and full of stones/sludge as detailed above. Findings are suspicious for acute cholecystitis. Lipase above 4000's on admission, Lipase 2960--> then 678 Elevated LFT with AST 313 and ALT 536 S/p Lap chol and ERCPwith sphincterotomy and balloon sweeping of the bile duct for stones and puswith stent placement on 12/10/22 Acute cholangitis Transaminitis Sepsis. Per my chart review, patient did meet SIRS criteria with tachycardia and tachypnea. WBC was 11k on day of admission and increased to 30+K the next day LFTs normalized. Tbil improving down to 1.4 Hb is stable at 12.1 Gen surg and GI on board Got CT abd/P per surg which noted severe pancreatitis similar to prior study, small amount of perihepatic fluid/small amount of pneumoperitoneum, subhepatic catheter unchanged in position, CBD stent with associated pneumobilia, small b/l pleural effusion, unchanged airspace opacities in the lungs. Continue liquid diet per surgery Continue broad spectrum antibiotic with IV Zosyn Still has leukocytosis today at 28K. Procalcitonin trended down from 4.24 to 1.26 Blood and urine culture negative at this time Will follow up MIMI drain fluid sent to lab by surgeon today Surgery plan to keep the MIMI drain for now Continue monitor CBC and liver enzymes Continue to encourage incentive spirometry and flutter Wean off oxygen as tolerated Paroxysmal Afib Off amio drip ECHO showed normal LV wall function. EF 65 to 70 % Metoprolol succinate increased to 12.5mg bid Cardiology on board Heparin drip on hold considering comorbidities: severe pancreatitis/risk of hemorrhagic pancreatitis, recent surgery SAMMY Worsening renal function. Creatinine increased to 7.26 K is 3.7 Metabolic acidosis Still making urine. Nephro on board. Continue to monitor. Patient may need HD if renal function does not improve/worsens. Defer that to Nephrology Monitor renal function Continue to hold Losartan Avoid nephrotoxic agents Elevated Glucose Possible related to pancreatitis Recent Hba1c 6.1 Continue monitor BS Hypertension Currently stable Losartan on hold Continue monitor BP Hyperthyroidism Continue Methimazole Anxiety Continue Sertraline Code status full code DVT px SCD. Hep gtt on hold as above Updated boyfriend who was at bedside I spent a total of 55 minutes coordinating, documenting and providing care for this patient excluding time spent in performance of separately billed services Admission and Anticipated Discharge Date Admission Date: December 09, 2022 Subjective Patient seen and examined Patient is alert and oriented to person and place She reports weakness and poor appetite Acknowledged feeling depressed due to her illness. Denied suicidal and homicidal ideation Denies any headache, nausea, abdominal pain, vomiting. Reports mild cough. Denied shortness of breath Denies chest pain No fevers noted Physical Exam Constitutional: no acute distress Eyes: PERRL, conjunctivae normal, anicteric sclerae ENMT: external ear and nose normal, oropharynx normal Respiratory: On nasal cannula Diminished breath sounds lung bases Cardiovascular: Rate/Rhythm: + irregularly irregular S1 S2 Gastrointestinal (Abdomen): normal bowel sounds, soft, nontender, no hepatosplenomegaly MIMI drain in situ with bilious fluid Musculoskeletal: +pedal edema Neurologic: PERRL, EOMI, accommodation nl, no face palsy, no dysarthria Psychiatric: Orientation: alert, oriented to person, oriented to place and cooperative; + not oriented to time Results & Data Results & Data Vital Signs (Past 12 Hours) Vital Signs Temp Pulse Pulse Resp BP Pulse Ox O2 Del Method 12/17/22 08:00 77 12/17/22 08:00 Nasal Cannula 12/17/22 07:07 36.6 C 79 19 117/68 95 Nasal Cannula 12/17/22 04:40 89 12/17/22 02:33 36.6 C 148 H 22 93/68 L 96 Nasal Cannula 12/16/22 22:52 36.5 C 90 18 135/78 98 Nasal Cannula O2 Flow Rate 12/17/22 08:00 12/17/22 08:00 2 12/17/22 07:07 3 12/17/22 04:40 12/17/22 02:33 2 12/16/22 22:52 2 Laboratory Results Abnormal lab results 12/16/22 12/16/22 12/17/22 Range/Units 16:24 20:07 06:45 WBC 28.53 H (4.8-10.8) K/ul RBC 4.11 L (4.20-5.40) M/uL Hct 35.4 L (37.0-47.0) % Sodium (136-145) mmol/L Carbon Dioxide (21-32) mmol/L Anion Gap (3-11) BUN (6-23) mg/dl Creatinine (0.6-1.2) mg/dl Glucose (70-99(Fasting)) mg/dl POC Glucose 154 H 129 H (70-99) mg/dl Calcium (8.5-10.1) mg/dl Phosphorus (2.5-4.9) mg/dl Magnesium (1.7-2.4) mg/dl Total Bilirubin (0.2-1.0) mg/dl Albumin (3.4-5.0) gm/dl Albumin/Globulin Ratio (0.9-2) Procalcitonin (0-0.5) ng/ml 12/17/22 12/17/22 12/17/22 Range/Units 06:45 06:45 07:23 WBC (4.8-10.8) K/ul RBC (4.20-5.40) M/uL Hct (37.0-47.0) % Sodium 135 L (136-145) mmol/L Carbon Dioxide 18 L (21-32) mmol/L Anion Gap 18 H (3-11) BUN 104 H (6-23) mg/dl Creatinine 7.26 H* D (0.6-1.2) mg/dl Glucose 137 H (70-99(Fasting)) mg/dl POC Glucose 131 H (70-99) mg/dl Calcium 7.9 L (8.5-10.1) mg/dl Phosphorus 7.8 H (2.5-4.9) mg/dl Magnesium 2.6 H (1.7-2.4) mg/dl Total Bilirubin 1.4 H (0.2-1.0) mg/dl Albumin 2.4 L (3.4-5.0) gm/dl Albumin/Globulin Ratio 0.7 L (0.9-2) Procalcitonin 1.26 H (0-0.5) ng/ml 12/17/22 Range/Units 11:20 WBC (4.8-10.8) K/ul RBC (4.20-5.40) M/uL Hct (37.0-47.0) % Sodium (136-145) mmol/L Carbon Dioxide (21-32) mmol/L Anion Gap (3-11) BUN (6-23) mg/dl Creatinine (0.6-1.2) mg/dl Glucose (70-99(Fasting)) mg/dl POC Glucose 126 H (70-99) mg/dl Calcium (8.5-10.1) mg/dl Phosphorus (2.5-4.9) mg/dl Magnesium (1.7-2.4) mg/dl Total Bilirubin (0.2-1.0) mg/dl Albumin (3.4-5.0) gm/dl Albumin/Globulin Ratio (0.9-2) Procalcitonin (0-0.5) ng/ml (1) Acute pancreatitis Acute pancreatitis complication: unspecified Pancreatitis type: unspecified pancreatitis type Qualified Code(s): K85.90 - Acute pancreatitis without necrosis or infection, unspecified (2) Nausea and vomiting Vomiting type: unspecified Qualified Code(s): R11.2 - Nausea with vomiting, unspecified
--- NOTE | 2022-12-17 11:35 | Nephrology Progress Note ---
Date of Service December 17, 2022 Assessment & Plan Admission and Anticipated Discharge Date Admission Date: December 09, 2022 Subjective Subjective Assessment & Plan (1) SAMMY (acute kidney injury): Plan: baseline creatinine 0.8--Now 7.2 progressive SAMMY w/o oliguria so far. urine 875 in 24 hrs. ischemic ATN --Sepsis and Contrast. sepsis from pancreatitis/cholecystitis, then compounded by poor renal perfusion w/ ongoing pAF and hypotension for several days . Creat still rising. chemistries okay though worsening. volume status ok on exam and per CXR No IV fluid currently and none indicated -strict I/O Daily basic metabolic panel No indication for dialysis currently but cannot rule out need to this admission. I did discuss this with the patient and her family today, letting them know the next 24--48 hours may be crucial in terms of needing dialysis or not. Slight metabolic acidosis but otherwise lytes and fluid status still acceptable. At the current rate of rise of creatinine we still have about 1-2 days before we will be compelled to do dialysis. will keep her NPO after midnight just in case we need to dialysis tomorrow. -repeat renal imaging --no Hydronephrosis. Incidental stones. --Continue to hold vesicare now that she has catalan; look to resume possibly at lower dose after renal function improves Subjective No new issues. Some back pain overnight. making urine--875 ml yesterday and is rising. Labs still worse. allowed to eat liquid diet now. Review of Systems Review of Systems: All systems reviewed & are unremarkable except as noted in Subjective Physical Exam Constitutional: well developed and well nourished; no acute distress Eyes: EOM intact bilaterally ENMT: Ears: no external ear abnormality Nose: no external nose abnormality Mouth: + dry oral mucous membranes Neck: no nuchal rigidity Respiratory: normal respiratory effort and + paradoxical thoraco-abdominal movement; no respiratory distress Auscultation: + diminished lung sounds (markedly) Cardiovascular: Rate/Rhythm: regular rate and regular rhythm Extremities: no edema Gastrointestinal (Abdomen): Inspection/Auscultation: normal bowel sounds; + abdomen abnormal to inspection (Right upper quadrant drain) Percussion/Palpation: abdomen soft; abdomen nontender Musculoskeletal: Extremities: + abnormal strength (cannot situp w/o asst; BLE weak) Skin: no rashes, warm and dry Psychiatric: Orientation: alert, oriented x 3, oriented to person and cooperative Results & Data Vital Signs (Past 12 Hours) Vital Signs Temp Pulse Pulse Resp BP BP Pulse Ox 12/17/22 10:54 36.4 C L 78 19 148/81 H 98 12/17/22 08:00 77 12/17/22 08:00 12/17/22 07:07 36.6 C 79 19 117/68 95 12/17/22 04:40 89 12/17/22 02:33 36.6 C 148 H 22 93/68 L 96 O2 Del Method O2 Flow Rate 12/17/22 10:54 Nasal Cannula 2 12/17/22 08:00 12/17/22 08:00 Nasal Cannula 2 12/17/22 07:07 Nasal Cannula 3 12/17/22 04:40 12/17/22 02:33 Nasal Cannula 2
--- NOTE | 2022-12-17 12:30 | CT Scan Report ---
ABDOMEN AND PELVIS CT WITHOUT CONTRAST CT DOSE: 1292.06 mGy.cm HISTORY: s/p lap adele ercp biliary leak TECHNIQUE: Multiaxial CT images of the abdomen and pelvis were performed without contrast. A dose lo wering technique was utilized adhering to the principles of ALARA. COMPARISON STUDY: Abdomen CT 12/15/2022. Abdomen and pelvis CT 12/09/2022. FINDINGS: Small bilateral pleural effusions persist. Patchy groundglass airspace opacities within the lungs are also similar to the prior study which may represent an atypical pneumonitis. Bibasilar tri ear densities favor atelectasis from the pleural effusions. A pneumonia could also have a similar kasey earance. The right subdiaphragmatic gas is similar to the prior study. A small amount of perihepatic fluid persists. A common bile duct stent appears in good position. There again noted postoperative ch anges consistent with recent cholecystectomy with a small amount of mixed density material and edema at the gallbladder fossa. Mild soft tissue thickening/inflammatory changes also noted within the gall bladder fossa. Right subdiaphragmatic percutaneous drainage catheter remains unchanged in position. S ubcutaneous edema and subcutaneous emphysema within the right anterior chest wall remains unchanged. The unenhanced spleen and adrenal glands unremarkable. Bilateral nephrolithiasis. No ureteral stones. No hydronephrosis. There is again noted a heterogeneous/edematous pancreas with peripancreatic fat s tranding. This is similar to the prior CT and is consistent with a severe pancreatitis. This is subop timally assessed on this unenhanced study. Small amount of pneumobilia is noted. Thickening at the ga stric antrum/duodenum remains unchanged and is likely reactive. Normal caliber abdominal aorta. No re troperitoneal lymphadenopathy. Scattered tiny soft tissue nodular densities along the right paracolic gutter is likely due to the acute pancreatitis. Small amount of loculated fluid within the left ante rior pararenal space persists. This is also likely secondary to the acute pancreatitis. The bladder i s decompressed by Tomlinson catheter. Trace ascites is noted. The uterus and bilateral adnexa are unremar kable. Suboptimal evaluation for bowel pathology due to the lack of intravenous and oral contrast. Ho wever, there are no dilated loops of bowel to suggest an obstruction. Fluid-filled loops of large or small bowel may represent a diarrheal illness/gastroenteritis. IMPRESSION: 1. Redemonstration of the severe pancreatitis. This is similar to the prior study. 2. Postoperative changes consistent with a recent cholecystectomy with a small amount of nonspecific perihepatic fluid and a small amount of pneumoperitoneum remaining. A right subhepatic percutaneous d rainage catheter remains unchanged in position. 3. The common bile duct stent appears in good position. There is associated pneumobilia. 4. Small bilateral pleural effusions persist. 5. No change in the patchy groundglass airspace opacities within the lungs. This may represent an aty pical/viral pneumonitis. 5. Fluid-filled nondilated loops of large and small bowel which may represent a gastroenteritis/diarr heal illness. 6. Bilateral nephrolithiasis. No ureteral stones. No hydronephrosis. 7. Additional findings as described above. ACT 112: Negative or not required by law. Electronically signed by: Dannie Chowdhury M.D. 12/17/2022 12:28 PM
[2022-12-18] MEDS: ONDANSETRON INJ 2 MG/ML 2 ML VIAL IV PRN (01:58)
[2022-12-18] MEDS: PIPERACILLIN/TAZOBACTAM 4.5 GM in DEXTROSE 5% 100 ML IV SCH ×2 (02:04→18:15)
[2022-12-18 06:10] LABS: Albumin Globulin Ratio 0.6 (0.9-2); Albumin Level 2.4 gm/dl (3.4-5.0); BUN Creatinine Ratio 13.1 (10-20); Bilirubin,Total 1.7 mg/dl (0.2-1.0); Calcium 8.6 mg/dl (8.5-10.1); Est GFR (Non-African American) 4.3 ml/min; Globulin 3.7 gm/dl (2.5-4.0); Magnesium 2.7 mg/dl (1.7-2.4); Phosphorus 8.8 mg/dl (2.5-4.9); Total Protein 6.1 gm/dl (6.0-8.3)
[2022-12-18 06:13] LABS: Hematocrit (blood only) 34.2 % (37.0-47.0); Hemoglobin 11.8 g/dl (12.0-16.0); Mean Corpuscular Hemoglobin 29.8 pg (25.0-34.0); Mean Corpuscular Hgb Conc 34.5 g/dL (32.0-36.0); Mean Corpuscular Volume 86.4 fL (80.0-100.0); Mean Platelet Volume 10.2 fL (9.4-12.4); Platelet Count 261 K/uL (130-400); RDW Coefficient of Variation 15.2 % (11.5-14.5); Red Blood Count 3.96 M/uL (4.20-5.40); White Blood Count 30.73 K/ul (4.8-10.8)
[2022-12-18] MEDS: INSULIN ASPART PER UNIT CHARGE SC SCH ×4 (07:56→21:01)
--- NOTE | 2022-12-18 08:54 | Surgery Progress Note ---
Date of Service December 18, 2022 Assessment & Plan (1) Bile leak from gallbladder bed: Plan: POD#7 status post laparoscopic cholecystectomy gangrenous cholecystitis with preop ERCP biliary stent WBC 30 (28). Cr continues to uptrend 8.8 (7.2), K 4. Vitals stable Drain appears dark in nature this AM, non bilious. put out 29cc since 6AM but has been large output CT scan yesterday showed no un-drained fluid collections. CBD stent in good position. + pancreatitis. ?pneumonitis There is a possibility of pt needing dialysis...she is making some urine Will continue to follow. Pt seen/examined with Dr. Rushing Admission and Anticipated Discharge Date Admission Date: December 09, 2022 Subjective Patient reports being in pain, mostly in her back and elaborates that it's in the small of her back. No worsening SOB. Physical Exam Physical Exam: awake. appears fatigued Constitutional: no acute distress Respiratory: normal respiratory effort Gastrointestinal (Abdomen): Inspection/Auscultation: + abdominal surgical incision (incisions c/d/i with sutures, no signs of infection) and + abdominal surgical drain present (dark sangeneous) Percussion/Palpation: + abdomen tender (mild discomfort to palpation) and abdomen soft Results & Data Vital Signs (Past 12 Hours) Vital Signs Temp Pulse Pulse Resp BP BP Pulse Ox 12/18/22 07:29 36.5 C 83 18 120/76 98 12/18/22 03:47 36.6 C 92 H 20 125/77 96 12/17/22 23:32 82 12/17/22 23:00 83 19 136/68 98 12/17/22 21:59 O2 Del Method O2 Flow Rate 12/18/22 07:29 Nasal Cannula 2 12/18/22 03:47 Nasal Cannula 2 12/17/22 23:32 12/17/22 23:00 Nasal Cannula 12/17/22 21:59 Nasal Cannula 2 PG Care Time/CCT Total # of Minutes Spent Total Time Spent with Patient: Total time spent is greater than 50% in coordination of care (as documented) at patient's floor/unit and/or counseling patient: Coding Level of Care Code 64082 Post Operative Follow-Up Diagnoses Bile leak from gallbladder bed K83.8
[2022-12-18] MEDS: CALCIUM CARBONATE 1,250 MG/5 ML UDC PO SCH ×2 (09:08→21:02)
[2022-12-18] MEDS: SERTRALINE HCL 50 MG TABLET PO SCH (09:09)
[2022-12-18] MEDS: METOPROLOL SUCC 25MG EXT REL TAB PO SCH ×3 (09:09→18:13)
[2022-12-18] MEDS: methIMAzole 5 MG TABLET PO SCH (09:09)
--- NOTE | 2022-12-18 09:34 | Nephrology Progress Note ---
Date of Service December 18, 2022 Assessment & Plan Admission and Anticipated Discharge Date Admission Date: December 09, 2022 Subjective Assessment & Plan (1) SAMMY (acute kidney injury): Plan: baseline creatinine 0.8--Now 7.2 progressive SAMMY w/o oliguria so far. urine 875 in 24 hrs. ischemic ATN --Sepsis and Contrast. sepsis from pancreatitis/cholecystitis, then compounded by poor renal perfusion w/ ongoing pAF and hypotension for several days . Creat still rising. chemistries okay though worsening. volume status ok on exam and per CXR No IV fluid currently and none indicated -strict I/O Daily basic metabolic panel. patient very weak. E/o Fluid overload ( edema and Crackles) and BUN now > 110. Creat still rising with no no signs of slowing down. At this point she needs dialysis. Given rising WBC would not want to do tunnelled Cath. Plan is to move to ICU. Place temp HD cath then do dialysis. She had normal creat before so still likely to recover eventually when her overall condition improves. Case discussed with treating team. 55 Mins spent in delivering care, planning and arrangement. Getting consent and counseling Subjective She looks and feel sick. More edema now. Still has lot off ddrain in the MIMI. urine is present. Some SOB Review of Systems Review of Systems: All systems reviewed & are unremarkable except as noted in Subjective Physical Exam Constitutional: Looks ill Eyes: EOM intact bilaterally ENMT: Ears: no external ear abnormality Nose: no external nose abnormality Mouth: + dry oral mucous membranes Neck: no nuchal rigidity Respiratory: normal respiratory effort and + paradoxical thoraco-abdominal movement; no respiratory distress Auscultation: + diminished lung sounds (markedly) Cardiovascular: Rate/Rhythm: regular rate and regular rhythm Extremities: no edema Gastrointestinal (Abdomen): Inspection/Auscultation: normal bowel sounds; + abdomen abnormal to inspection (Right upper quadrant drain) Percussion/Palpation: abdomen soft; abdomen nontender Musculoskeletal: Extremities: 2+ pitting edema Skin: no rashes, warm and dry Psychiatric: Orientation: alert, oriented x 3, oriented to person and cooperative Results & Data Vital Signs (Past 12 Hours) Vital Signs Temp Pulse Pulse Resp BP BP Pulse Ox 12/18/22 07:29 36.5 C 83 18 120/76 98 12/18/22 03:47 36.6 C 92 H 20 125/77 96 12/17/22 23:32 82 12/17/22 23:00 83 19 136/68 98 12/17/22 21:59 O2 Del Method O2 Flow Rate 12/18/22 07:29 Nasal Cannula 2 12/18/22 03:47 Nasal Cannula 2 12/17/22 23:32 12/17/22 23:00 Nasal Cannula 12/17/22 21:59 Nasal Cannula 2
--- NOTE | 2022-12-18 09:36 | Critical Care Consultation ---
Date of Consultation December 18, 2022 Assessment & Plan (1) Hx laparoscopic cholecystectomy: (2) SAMMY (acute kidney injury): (3) Cholangitis: (4) Afib: (5) Acute respiratory failure with hypoxia: (6) Shock circulatory: (7) Acute pancreatitis: (8) Bile leak from gallbladder bed: Plan Reason Critically Ill: 72-year-old female admitted to the hospital because of acute pancreatitis was complicated by cholecystitis and biliary leak s/p cholecystectomy on MIMI drain. She also had SAMMY, creatinine not improving Transferred to ICU for hemodialysis Neuro - [facility] ICU: Negative Cardiac - --Shock With elevated WBC underlying etiology sepsis Continue with antibiotics High risk of fungal infection We will treat the patient with antifungals and order fungal culture -- New onset A-fib Not on heparin drip because of high risk for hemorrhagic conversion of pancreatitis Patient got amiodarone in the past and got bradycardic. Currently on beta-blockers Respiratory - -- Acute respiratory failure with hypoxia Likely from dependent atelectasis Continue with incentive spirometry O2 supplementation to keep oxygen saturation between 88-92% GI - -- Acute cholangitis with transaminitis LFTs are improving Status post lap cholecystectomy and ERCP with splinter ectomy and balloon sweeping of the bile duct for stones and pus, stent placement 12/10/2022 Continue to trend MIMI drain in place --Acute pancreatitis S/p acute phase RENAL/LYTES - --SAMMY Likely ATN now from severe pancreatitis Will need hemodialysis Shiley catheter placed 12/18/2022 ENDO - -- Hypothyroidism Continue with methimazole Continue with ICU glycemic protocol HEME - Monitor H&H ID - -- Acute cholangitis On Zosyn --Prophylaxis VTE: IPC GI: Pantoprazole Lines: Right Shiley Diet: Renal Plan: In/out: +11 L since coming to the hospital Plan for dialysis today Risk and benefit of the procedure explained to the patient as well as patient's partner at bedside. Consent signed, witnessed and placed in chart. Continue with antibiotics. I will add antifungal coverage given the elevated WBC count and patient's clinical status worsening We will give BiPAP nightly and as needed shortness of breath Incentive spirometry and flutter valve to be given to the patient Case was discussed with hospitalist as well as follow up specialist I have personally spent 65 minutes of critical care time in the direct management of this patient. This is a life/limb threatening event. This includes time spent evaluating patient, direct bedside care, chart review, placing orders, interpretation of diagnostic studies, discussion with consultants, patient, and family members, as well as other required patient management activities. This time is exclusive of all separately billable procedures, and teaching time and separate from and in addition to any other critical care service time. History of Present Illness Attending Physician: Angeli Cuellar MD History of Present Illness 72-year-old female who was admitted to the hospital for pancreatitis Past medical history: Hypertension, hyperparathyroidism, anxiety, new onset A-f ib while in the hospital Patient had a prolonged course during this hospitalization where she had c holecystectomy done and has a drain placed in, patient also developed SAMMY and kidney function was not improving Case was signed out to me by Patient was transferred to the ICU because of clinical lethargy as well as need for hemodialysis At the time of examination patient systolic blood pressure was in the 120s, patient respiratory rate was in the high teens to low 20s. Saturating 98% on 2 L nasal cannula. On asking how she is feeling she states she is does not know. She did complain of mild abdominal pain. No nausea vomiting Shortness of breath on minimal exertion. She is usually bedbound she has being in the hospital. Denies any nausea or vomiting. No headache, no blurry vision Social history: Lifetime non-smoker. No illicit drug use. Allergies Allergy/AdvReac Type Severity Reaction Status Date / Time No Known Allergies Allergy Unverified 04/26/12 15:09 Home Medications Medication Instructions Recorded Confirmed Type losartan 50 mg tablet 50 mg PO DAILY 12/09/22 12/09/22 History methimazole 5 mg tablet 5 mg PO DAILY 12/09/22 12/09/22 History sertraline 50 mg tablet 50 mg PO DAILY 12/09/22 12/09/22 History solifenacin 10 mg tablet 10 mg PO DAILY 12/09/22 12/09/22 History Patient History Medical History (Updated 12/18/22 @ 17:20 by Vera Pulido MD, [facility]) Ambulatory dysfunction d/t MS Depression History of claustrophobia Hypertension Multiple sclerosis Surgical History (Updated 12/14/22 @ 07:10 by Mark Whittaker MD, FACS) Hx laparoscopic cholecystectomy (12/10/22) Laparoscopic cholecystectomy with extensive lysis of adhesions, please add modifier for extensive difficulty and increased length of the procedure. Social History Smoking Status: Former smoker Second Hand Exposure: No; Hx Alcohol Use: No Hx Substance Use: No Preferred Language: Turkish Communication Ability: Effective Senior Health Physics Technician Required: No Beliefs That Will Affect Care: None marital status: Single Current Living Situation: Significant Other current occupational status: retired Feels Safe at Home: Yes Assistive Devices: Scooter/Electric Scooter, Walker, Wheelchair and Other Review of Systems Review of Systems: All systems reviewed & are unremarkable except as noted in HPI & below Physical Exam Physical Exam: Constitutional: No acute distress HEENT: EOMI, PERRLA Respiratory system: Decreased air entry bilaterally, no wheeze, no rhonchi, positive crackles bilateral lower lobes CVS: S1-S2 positive, no murmurs or gallops Abdomen: Soft, nontender, nondistended, positive bowel sounds x4, positive MIMI drain Extremities: +2 pulses bilaterally radialis/ dorsalis pedis, no cyanosis, +1 pitting edema bilateral lower extremity Neuro: Awake alert oriented x3 Psych: Flat mood and affect G/U: Positive Tomlinson Skin: no rashes, warm and dry Lymphatic: no cervical or axillary lymphadenopathy Results & Data Results & Data Vital Signs (Past 12 Hours) Vital Signs Temp Pulse Pulse Resp BP BP Pulse Ox 12/18/22 07:29 36.5 C 83 18 120/76 98 12/18/22 03:47 36.6 C 92 H 20 125/77 96 12/17/22 23:32 82 12/17/22 23:00 83 19 136/68 98 12/17/22 21:59 O2 Del Method O2 Flow Rate 12/18/22 07:29 Nasal Cannula 2 12/18/22 03:47 Nasal Cannula 2 12/17/22 23:32 12/17/22 23:00 Nasal Cannula 12/17/22 21:59 Nasal Cannula 2 Laboratory Results 12/18/22 05:00 12/18/22 05:00 Coding Level of Care Code 26277 CRITICAL CARE 1ST 30-74M Diagnoses Hx laparoscopic cholecystectomy Z90.49 SAMMY (acute kidney injury) N17.9 Cholangitis K83.09 Afib I48.91 Acute respiratory failure with hypoxia J96.01 Shock circulatory R57.9 Acute pancreatitis K85.90 Acute pancreatitis complication: unspecified Pancreatitis type: unspecified pancreatitis type Bile leak from gallbladder bed K83.8 Time Spent (min) 65 (7) Acute pancreatitis Acute pancreatitis complication: unspecified Pancreatitis type: unspecified pancreatitis type Qualified Code(s): K85.90 - Acute pancreatitis without necrosis or infection, unspecified
[2022-12-18] MEDS: DOCUSATE SODIUM/SENNA 50/8.6MG TAB PO SCH ×2 (10:38→21:02)
--- NOTE | 2022-12-18 11:35 | Procedure Note ---
Procedure Note Date of Service December 18, 2022 Note Procedure: Inserting ultrasound-guided central liner roll changer: Dr. Vera Pulido Indication: Acute renal failure Consent: Signed by patient and verified with timeout prior to procedure. Anesthesia: 1% lidocaine without epinephrine local. Procedure: Consent was verified and timeout performed. Appropriate imaging studies were reviewed prior to the procedure. Under aseptic and sterile condition, right IJ vein was accessed under direct ultrasound guidance. Guidewire was confirmed to be within the lumen of vein with the help of ultrasound. Catheter was introduced via Seldinger technique. Guide a wire was removed. Good non-pulsatile blood flow was appreciated from all the ports. The catheter was placed at 13 cm and sutured in place. BioPatch was applied to the catheter and a sterile Tegaderm dressing was applied over the catheter with careful attention to sterility. Lung sliding was appreciated post procedure with the help ultrasound. Chest x-ray to follow Patient tolerated the procedure well. Blood loss: Less than 2 cc Complications: None Coding CPT Codes Tubes, Drains, and Vasc Access - Tubes, Drains, and Vasc Access: [id number] Insertion of cannula for hemodialysis ([id number]) Tubes, Drains, and Vasc Access - Tubes, Drains, and Vasc Access: [id number] Ultrasound Guidance For Vascular ([id number]) [facility] – [place], [place] Procedure Codes (Charges) Tubes, Drains, and Vasc Access Procedure 1: Tubes, Drains, and Vasc Access: [id number] Insertion of cannula for hemodialysis Procedure 2: Tubes, Drains, and Vasc Access: [id number] Ultrasound Guidance For Vascular
--- NOTE | 2022-12-18 11:51 | XRay Report ---
SINGLE VIEW CHEST CLINICAL HISTORY: Central venous catheter placement. FINDINGS: An AP, portable, upright chest radiograph is compared to study dated 12/05/2022. A right inte rnal jugular central venous catheter is new from previous. The tip projects over the cavoatrial junct ion. The cardiomediastinal silhouette is unremarkable. There are low lung volumes. Small pleural effu sions are noted with dependent consolidation. No pneumothorax is seen. The skeletal structures are os teopenic. The correlation is made with abdominal CT dated 12/17/2022. Bony thorax is grossly intact. IMPRESSION: 1. A right internal jugular central venous catheter has been placed as above. No pneumothorax is seen post procedure. 2. Small pleural effusions with dependent consolidation. 3. Additional findings as above. ACT 112: Negative or not required by law. Electronically signed by: Chidi Garay M.D. 12/18/2022 11:50 AM
--- NOTE | 2022-12-18 12:45 | Hospitalist Progress Note ---
Date of Service December 18, 2022 Assessment & Plan (1) Acute pancreatitis: (2) Nausea and vomiting: Plan: Possible related togallstone related pancreatitis Present on admission with abdominal pain that radiating to back associating with vomiting and nausea CT abd/pel showedperipancreatic fat stranding is seen concerning for pancreatitis. Prominence of the gallbladder may be reactive or less likely may represent acute cholecystitis. Abdomen u/s showedgallbladder is distended and full of stones/sludge as detailed above. Findings are suspicious for acute cholecystitis. Lipase above 4000's on admission, Lipase 2960--> then 678 Elevated LFT with AST 313 and ALT 536 S/p Lap chol and ERCPwith sphincterotomy and balloon sweeping of the bile duct for stones and puswith stent placement on 12/10/22 Acute cholangitis Transaminitis Sepsis. Per my chart review, patient did meet SIRS criteria with tachycardia and tachypnea. WBC was 11k on day of admission and increased to 30+K the next day LFTs normalized. Tbil improving down to 1.4 Hb is 11.8 today Gen surg board CT abd/P on 12/17/22 noted severe pancreatitis similar to prior study, small amount of perihepatic fluid/small amount of pneumoperitoneum, subhepatic catheter unchanged in position, CBD stent with associated pneumobilia, small b/l pleural effusion, unchanged airspace opacities in the lungs. Worsening leukocytosis today at 30K. Continue broad spectrum antibiotic with IV Zosyn Blood and urine culture were negative MIMI drain fluid culture negative so far Surgery plan to keep the MIMI drain for now Continue to encourage incentive spirometry and flutter Wean off oxygen as tolerated Paroxysmal Afib Off amio drip ECHO showed normal LV wall function. EF 65 to 70 % Continue metoprolol succinate 12.5mg bid Cardiology on board Heparin drip on hold considering comorbidities: severe pancreatitis/risk of hemorrhagic pancreatitis, recent surgery SAMMY Worsening renal function. Creatinine increased to 8.38, BUN 110 Discussed with Feather Stitcher today. Patient needs HD at this time Patient transferred to ICU. Spoke with salon customer experience specialist about temp HD line placement for HD today Continue to hold Losartan Avoid nephrotoxic agents Prediabetes Recent Hba1c 6.1 on 12/10/22 Continue monitor BS Hypertension Currently stable Losartan on hold Continue monitor BP Hyperthyroidism Continue Methimazole Anxiety Continue Sertraline Code status full code DVT px SCD. Hep gtt on hold as above Updated daughter over the phone I spent a total of 55 minutes coordinating, documenting and providing care for this patient excluding time spent in performance of separately billed services Admission and Anticipated Discharge Date Admission Date: December 09, 2022 Subjective Patient seen and examined Reports weakness, anorexia and cough Denies any headache, nausea, abdominal pain, vomiting. Denied shortness of breath Denies chest pain, palpitation Physical Exam Constitutional: no acute distress Eyes: PERRL, conjunctivae normal, anicteric sclerae ENMT: external ear and nose normal, oropharynx normal Respiratory: normal respiratory effort; no respiratory distress Auscultation: + diminished lung sounds Cardiovascular: Rate/Rhythm: regular rate and regular rhythm S1 S2 Gastrointestinal (Abdomen): normal bowel sounds, soft, nontender, no hepatosplenomegaly Musculoskeletal: +pedal edema Neurologic: PERRL, EOMI, accommodation nl, no face palsy, no dysarthria Psychiatric: Orientation: alert, oriented to person, oriented to place and cooperative; + not oriented to time Results & Data Results & Data Vital Signs (Past 12 Hours) Vital Signs Temp Pulse Pulse Resp BP BP BP 12/18/22 10:38 92 H 15 12/18/22 10:36 16 12/18/22 10:34 83 14 12/18/22 10:32 84 16 12/18/22 10:30 83 16 12/18/22 10:30 122/58 L 12/18/22 10:28 83 16 12/18/22 10:26 85 17 12/18/22 10:25 85 15 12/18/22 10:40 36.9 C 12/18/22 10:30 12/18/22 08:00 12/18/22 07:29 36.5 C 83 18 120/76 12/18/22 03:47 36.6 C 92 H 20 125/77 Pulse Ox O2 Del Method O2 Flow Rate 12/18/22 10:38 96 12/18/22 10:36 96 Nasal Cannula 2 12/18/22 10:34 97 12/18/22 10:32 97 12/18/22 10:30 97 12/18/22 10:30 12/18/22 10:28 97 12/18/22 10:26 96 12/18/22 10:25 96 12/18/22 10:40 03/20/23 10:30 Nasal Cannula 2 12/18/22 08:00 Nasal Cannula 2 12/18/22 07:29 98 Nasal Cannula 2 12/18/22 03:47 96 Nasal Cannula 2 Laboratory Results Abnormal lab results 12/17/22 12/17/22 12/18/22 Range/Units 16:12 20:15 05:00 WBC 30.73 H* (4.8-10.8) K/ul RBC 3.96 L (4.20-5.40) M/uL Hgb 11.8 L (12.0-16.0) g/dl Hct 34.2 L (37.0-47.0) % RDW Std Deviation 48.0 H (36.4-46.3) fL RDW Coeff of Mandy 15.2 H (11.5-14.5) % Sodium (136-145) mmol/L Carbon Dioxide (21-32) mmol/L Anion Gap (3-11) BUN (6-23) mg/dl Creatinine (0.6-1.2) mg/dl Glucose (70-99(Fasting)) mg/dl POC Glucose 147 H 133 H (70-99) mg/dl Phosphorus (2.5-4.9) mg/dl Magnesium (1.7-2.4) mg/dl Total Bilirubin (0.2-1.0) mg/dl AST (13-39) U/L Albumin (3.4-5.0) gm/dl Albumin/Globulin Ratio (0.9-2) 12/18/22 12/18/22 12/18/22 Range/Units 05:00 07:41 11:38 WBC (4.8-10.8) K/ul RBC (4.20-5.40) M/uL Hgb (12.0-16.0) g/dl Hct (37.0-47.0) % RDW Std Deviation (36.4-46.3) fL RDW Coeff of Mandy (11.5-14.5) % Sodium 135 L (136-145) mmol/L Carbon Dioxide 17 L (21-32) mmol/L Anion Gap 20 H (3-11) BUN 110 H (6-23) mg/dl Creatinine 8.38 H* D (0.6-1.2) mg/dl Glucose 146 H (70-99(Fasting)) mg/dl POC Glucose 155 H 130 H (70-99) mg/dl Phosphorus 8.8 H (2.5-4.9) mg/dl Magnesium 2.7 H (1.7-2.4) mg/dl Total Bilirubin 1.7 H (0.2-1.0) mg/dl AST 11 L (13-39) U/L Albumin 2.4 L (3.4-5.0) gm/dl Albumin/Globulin Ratio 0.6 L (0.9-2) (1) Acute pancreatitis Acute pancreatitis complication: unspecified Pancreatitis type: unspecified pancreatitis type Qualified Code(s): K85.90 - Acute pancreatitis without necrosis or infection, unspecified (2) Nausea and vomiting Vomiting type: unspecified Qualified Code(s): R11.2 - Nausea with vomiting, unspecified
[2022-12-18] MEDS ORDERED: STAT IV Infusion **Titration per Protocol STA ×2 (17:26→18:25)
[2022-12-18] MEDS ORDERED: NOREPINEPHRINE/D5W 4 MG/250 ML PLCT IV SCH (17:30)
--- NOTE | 2022-12-18 17:35 | Communication Note ---
Date of Service: December 18, 2022 Critical CARE addendum I was called at bedside as dialysis nurse was having issue with dialyzing the patient. As per the nurse the pressure in the one of the port of the Shiley catheter was increasing whenever the patient was coughing or clearing her throat. There was good flow from both the Shiley catheter ports. When I put the Shiley catheter in patient's IJ was collapsing with each breath. I think patient is intravascularly depleted. I checked the blood pressure of the patient at that time and it was in the systolic 70s which is new compared to before. Patient was started on Levophed stat at 0.1 mcg/kg/min. After improvement in patient's blood pressure the dialysis was working better. Given the significant abdominal surgeries, elevated WBC count and patient's new onset hypertension, I will start the patient on antifungal coverage and do fungal culture I discussed this with nephrology as well Hold beta-blockers. I have personally spent additional 25 minutes of critical care time in the direct management of this patient. This is a life/limb threatening event. This includes time spent evaluating patient, direct bedside care, chart review, placing orders, interpretation of diagnostic studies, discussion with consultants, patient, and family members, as well as other required patient management activities. This time is exclusive of all separately billable procedures, and teaching time and separate from and in addition to any other critical care service time. Please note the above document was generated using voice recognition software. It may contain grammatical, syntax or spelling errors. Coding Level of Care Code 75011 CRITICAL CARE EA ADD 30M Time Spent (min) 25
[2022-12-18] MEDS ORDERED: CASPOFUNGIN 70 MG in SODIUM CHLORIDE 0.9% 250 ML IV ONE (17:45)
[2022-12-18] MEDS ORDERED: PHENYLEPHRINE/NSS 25 MG/250 ML BAG IV SCH (18:25)
[2022-12-18] MEDS: METOPROLOL TARTRATE 1 MG/ML VIAL IV PRN (18:27)
[2022-12-18] MEDS ORDERED: METOPROLOL TARTRATE 1 MG/ML VIAL IV STA (18:43)
[2022-12-18] MEDS ORDERED: AMIODARONE / D5W 360 MG/200 ML BAG IV ONE (19:25)
[2022-12-18] MEDS ORDERED: 0.2 MICRON FILTER SET 1 EACH IV ONE (19:25)
[2022-12-18] MEDS: PHENYLEPHRINE GTT *PHARM PREP* STANDARD IV SCH (19:52)
[2022-12-18 21:38] LABS: Calcium 8.5 mg/dl (8.5-10.1); Creatinine Clr Calc Pharmacy 11.1 ml/min; Est GFR (African American) 8.6 ml/min; Est GFR (Non-African American) 7.5 ml/min; Potassium 3.6 mmol/L (3.5-5.1)
[2022-12-18 21:44] LABS: Thyroid Stimulating Hormone 3.943 uIu/ml (0.300-4.500)
[2022-12-18 21:46] LABS: T4 Free Thyroxine 0.5 ng/dl (0.61-1.60)
[2022-12-19] MEDS: PHENYLEPHRINE GTT *PHARM PREP* STANDARD IV SCH ×4 (00:03→05:39)
[2022-12-19] MEDS: AMIODARONE / D5W 360 MG/200 ML BAG IV SCH ×3 (01:10→21:40)
[2022-12-19] MEDS: PIPERACILLIN/TAZOBACTAM 4.5 GM in DEXTROSE 5% 100 ML IV SCH ×2 (01:44→14:25)
[2022-12-19 06:22] LABS: Hematocrit (blood only) 30.6 % (37.0-47.0); Hemoglobin 10.9 g/dl (12.0-16.0); Mean Corpuscular Hemoglobin 29.9 pg (25.0-34.0); Mean Corpuscular Hgb Conc 35.6 g/dL (32.0-36.0); Mean Corpuscular Volume 83.8 fL (80.0-100.0); Mean Platelet Volume 10.6 fL (9.4-12.4); Platelet Count 227 K/uL (130-400); RDW Coefficient of Variation 15.2 % (11.5-14.5); Red Blood Count 3.65 M/uL (4.20-5.40); White Blood Count 29.07 K/ul (4.8-10.8)
[2022-12-19 06:40] LABS: Albumin Globulin Ratio 0.7 (0.9-2); Albumin Level 2.3 gm/dl (3.4-5.0); BUN Creatinine Ratio 11.1 (10-20); Bilirubin,Total 1.2 mg/dl (0.2-1.0); Calcium 7.8 mg/dl (8.5-10.1); Creatinine Clr Calc Pharmacy 10.5 ml/min; Est GFR (African American) 8.1 ml/min; Globulin 3.4 gm/dl (2.5-4.0); Magnesium 2.3 mg/dl (1.7-2.4); Phosphorus 5.7 mg/dl (2.5-4.9); Potassium 3.4 mmol/L (3.5-5.1); Total Protein 5.7 gm/dl (6.0-8.3)
--- NOTE | 2022-12-19 07:39 | Surgery Progress Note ---
Date of Service December 19, 2022 Assessment & Plan (1) Bile leak from gallbladder bed: Plan: 12/19/22 POD#8 white count virtually unchanged Creatinine down (was dialyzed yesterday) Other labs noted We will leave subhepatic drain in for now Cultures from the drain that were obtained 2 days ago no growth POD#7 status post laparoscopic cholecystectomy gangrenous cholecystitis with preop ERCP biliary stent WBC 30 (28). Cr continues to uptrend 8.8 (7.2), K 4. Vitals stable Drain appears dark in nature this AM, non bilious. put out 29cc since 6AM but has been large output CT scan yesterday showed no un-drained fluid collections. CBD stent in good position. + pancreatitis. ?pneumonitis There is a possibility of pt needing dialysis...she is making some urine Will continue to follow. Pt seen/examined with Dr. Rushing Admission and Anticipated Discharge Date Admission Date: December 09, 2022 Subjective Alert coherent with no acute issues Denies any nausea no abdominal discomfort Had dialysis yesterday Physical Exam Physical Exam: Resting comfortably without any specific complaints Sclera is nonicteric The abdomen is soft trocar sites are healing well subhepatic drain minimal drainage blood-tinged no bile staining Tomlinson, normal color urine in the chamber Results & Data Vital Signs (Past 12 Hours) Vital Signs Temp Pulse Resp BP Pulse Ox O2 Del Method O2 Flow Rate 12/19/22 07:08 75 12/19/22 07:00 76 15 97 12/19/22 07:00 129/61 12/19/22 04:20 85 14 93 12/19/22 04:10 121 H 14 96 12/19/22 04:00 76 14 96 12/19/22 04:00 102/43 L 12/19/22 03:50 77 16 96 12/19/22 03:40 77 15 95 12/19/22 03:30 77 14 95 12/19/22 03:30 110/58 L 12/19/22 03:20 76 15 96 12/19/22 03:10 85 14 95 12/19/22 03:00 83 13 95 12/19/22 03:00 125/58 L 12/19/22 02:50 78 14 96 12/19/22 02:40 74 15 96 12/19/22 02:30 76 15 96 12/19/22 02:30 115/56 L 12/19/22 02:20 73 15 96 12/19/22 02:10 76 14 96 12/19/22 02:00 80 15 95 12/19/22 02:00 121/60 12/19/22 01:50 79 14 95 12/19/22 01:40 77 15 95 12/19/22 01:30 79 13 94 12/19/22 01:20 79 16 95 12/19/22 01:10 79 16 95 12/19/22 01:00 78 13 96 12/19/22 01:00 114/53 L 12/19/22 00:50 80 14 96 12/19/22 00:40 83 15 95 12/19/22 00:30 85 17 95 12/19/22 00:30 110/59 L 12/19/22 00:20 85 15 96 12/19/22 00:10 83 15 96 12/19/22 00:00 86 17 96 12/19/22 00:00 116/58 L 12/18/22 23:50 89 21 96 12/18/22 23:45 83 18 96 12/18/22 23:45 122/56 L 12/18/22 23:40 83 15 97 12/18/22 23:30 86 16 96 12/18/22 23:30 125/58 L 12/18/22 23:20 85 15 97 12/18/22 23:15 121/58 L 12/18/22 23:15 84 16 96 12/18/22 23:10 85 16 97 12/18/22 23:00 85 15 96 12/18/22 23:00 120/56 L 12/18/22 22:50 88 13 97 12/18/22 22:46 90 20 96 12/18/22 22:46 116/55 L 12/19/22 02:30 36.6 C 12/18/22 21:00 2 12/18/22 21:23 Nasal Cannula 2 12/18/22 21:08 36.4 C 12/18/22 21:00 154 H 21 96 12/18/22 21:00 95/62 L 12/18/22 20:50 153 H 14 96 12/18/22 20:45 149 H 16 96 12/18/22 20:45 114/67 03/20/23 20:40 155 H 19 96 03/20/23 20:30 157 H 16 96 12/18/22 20:30 81/59 L 12/18/22 20:20 158 H 18 95 12/18/22 20:15 160 H 23 96 12/18/22 20:15 91/57 L 12/18/22 20:10 160 H 18 96 12/18/22 20:00 161 H 18 96 12/18/22 20:00 89/60 L 12/18/22 19:50 160 H 17 96 12/18/22 19:45 160 H 22 96 12/18/22 19:45 103/78 12/18/22 19:40 161 H 18 96
[2022-12-19] MEDS: INSULIN ASPART PER UNIT CHARGE SC SCH ×4 (07:46→20:19)
[2022-12-19] MEDS: CALCIUM CARBONATE 1,250 MG/5 ML UDC PO SCH ×2 (08:14→20:17)
[2022-12-19] MEDS: SERTRALINE HCL 50 MG TABLET PO SCH (08:14)
[2022-12-19] MEDS: HEPARIN SOD 5,000 UNIT/0.5 ML VIAL SQ SCH ×2 (08:14→20:19)
[2022-12-19] MEDS: methIMAzole 5 MG TABLET PO SCH (08:15)
[2022-12-19] MEDS: DOCUSATE SODIUM/SENNA 50/8.6MG TAB PO SCH ×2 (08:16→20:18)
--- NOTE | 2022-12-19 09:29 | Critical Care Progress Note ---
Date of Service December 19, 2022 Assessment & Plan (1) Hx laparoscopic cholecystectomy: (2) SAMMY (acute kidney injury): (3) Cholangitis: (4) Afib: (5) Acute respiratory failure with hypoxia: (6) Shock circulatory: (7) Acute pancreatitis: (8) Bile leak from gallbladder bed: Plan Reason Critically Ill: 72-year-old female admitted to the hospital because of acute pancreatitis was complicated by cholecystitis and biliary leak s/p cholecystectomy on MIMI drain. She also had SAMMY, creatinine not improving Transferred to ICU for hemodialysis Neuro - [facility] ICU: Negative Cardiac - --Shock With elevated WBC underlying etiology sepsis Continue with antibiotics High risk of fungal infection --> started on antifungals on 12/18/2022 -- New onset A-fib Not on heparin drip because of high risk for hemorrhagic conversion of pancreati tis Amiodarone restarted on 12/18/2022 given requirement for vasopressors. Blockers on hold TSH 3.94, free T4 (Low) 0.50 Respiratory - -- Acute respiratory failure with hypoxia Likely from dependent atelectasis Continue with incentive spirometry O2 supplementation to keep oxygen saturation between 88-92% GI - -- Acute cholangitis with transaminitis LFTs are improving Status post lap cholecystectomy and ERCP with splinter ectomy and balloon sweeping of the bile duct for stones and pus, stent placement 12/10/2022 Continue to trend MIMI drain in place --Acute pancreatitis S/p acute phase RENAL/LYTES - --SAMMY Likely ATN now from severe pancreatitis Will need hemodialysis Shiley catheter placed 12/18/2022 --> started on dialysis 12/18/2022 ENDO - -- Hyperthyroidism Continue with methimazole Continue with ICU glycemic protocol HEME - Monitor H&H ID - -- Acute cholangitis On Zosyn --Given persistently elevated WBC and clinical worsening with hypotension empirically started the patient on caspofungin Patient also had bile leak which also increases the risk of fungal infection Follow-up fungal culture --Prophylaxis VTE: IPC and heparin GI: Pantoprazole Lines: Right Shiley, positive Tomlinson Diet: Renal Plan: In/out: +1.2 L, urine output 300 mL, +12 L since coming to the hospital Patient is hypokalemic today mildly. She is supposed to get dialysis will defer the replacement during dialysis. She still needing low-dose vasopressor support. She will likely needed when she is going to get dialyzed. Continue with amiodarone given the persistent A-fib and inability to use negative inotropes given the low blood pressure. We will discuss with surgery to see if he can start the patient on clear liquid diet and advance as tolerated Start the patient on heparin subcu for DVT prophylaxis I have personally spent 43 minutes of critical care time in the direct management of this patient. This is a life/limb threatening event. This includes time spent evaluating patient, direct bedside care, chart review, placing orders, interpretation of diagnostic studies, discussion with consultants, patient, and family members, as well as other required patient management activities. This time is exclusive of all separately billable procedures, and teaching time and separate from and in addition to any other critical care service time. Admission and Anticipated Discharge Date Admission Date: December 09, 2022 Subjective Patient seen and examined at bedside. No acute distress, no adverse events overnight. Patient on was on the left and overnight. She was off of it for 1 hour when I saw her. Map was in the 70s. Patient said that she is doing okay. Denied any abdominal pain, no chest pain, does complain of shortness of breath on minimal exertion. She was saturating 96% on 1 L nasal cannula No nausea vomiting Positive bowel movements Has been afebrile. No headache, no blurry vision Patient's partner was also in the room at the time of examination Review of Systems Review of Systems: All systems reviewed & are unremarkable except as noted in Subjective Physical Exam Physical Exam: Constitutional: No acute distress HEENT: EOMI, PERRLA Respiratory system: Decreased air entry bilaterally, no wheeze, no rhonchi, positive crackles bilateral lower lobes CVS: S1-S2 positive, no murmurs or gallops Abdomen: Soft, nontender, nondistended, positive bowel sounds x4, positive MIMI drain Extremities: +2 pulses bilaterally radialis/ dorsalis pedis, no cyanosis, +1 pitting edema bilateral lower extremity Neuro: Awake alert oriented x3 Psych: Flat mood and affect G/U: Positive Tomlinson Skin: no rashes, warm and dry Lymphatic: no cervical or axillary lymphadenopathy Results & Data Results & Data Vital Signs (Past 12 Hours) Vital Signs Temp Pulse Resp BP Pulse Ox O2 Del Method O2 Flow Rate 12/19/22 08:15 72 16 95 Nasal Cannula 2 12/19/22 08:01 106/50 L 12/19/22 08:01 76 15 94 12/19/22 08:00 75 18 94 12/19/22 07:45 75 17 95 12/19/22 07:45 113/53 L 12/19/22 07:43 76 21 95 12/19/22 07:43 111/53 L 12/19/22 07:30 76 16 96 12/19/22 07:30 124/60 12/19/22 07:15 75 15 96 12/19/22 08:00 Nasal Cannula 2 12/19/22 07:08 75 12/19/22 07:00 76 15 97 12/19/22 07:00 129/61 12/19/22 04:20 85 14 93 12/19/22 04:10 121 H 14 96 12/19/22 04:00 76 14 96 12/19/22 04:00 102/43 L 12/19/22 03:50 77 16 96 12/19/22 03:40 77 15 95 12/19/22 03:30 77 14 95 12/19/22 03:30 110/58 L 12/19/22 03:20 76 15 96 12/19/22 03:10 85 14 95 12/19/22 03:00 83 13 95 12/19/22 03:00 125/58 L 12/19/22 02:50 78 14 96 12/19/22 02:40 74 15 96 12/19/22 02:30 76 15 96 12/19/22 02:30 115/56 L 12/19/22 02:20 73 15 96 12/19/22 02:10 76 14 96 12/19/22 02:00 80 15 95 12/19/22 02:00 121/60 12/19/22 01:50 79 14 95 12/19/22 01:40 77 15 95 12/19/22 01:30 79 13 94 12/19/22 01:20 79 16 95 12/19/22 01:10 79 16 95 12/19/22 01:00 78 13 96 12/19/22 01:00 114/53 L 12/19/22 00:50 80 14 96 12/19/22 00:40 83 15 95 12/19/22 00:30 85 17 95 12/19/22 00:30 110/59 L 12/19/22 00:20 85 15 96 12/19/22 00:10 83 15 96 12/19/22 00:00 86 17 96 12/19/22 00:00 116/58 L 12/18/22 23:50 89 21 96 12/18/22 23:45 83 18 96 12/18/22 23:45 122/56 L 12/18/22 23:40 83 15 97 12/18/22 23:30 86 16 96 12/18/22 23:30 125/58 L 12/18/22 23:20 85 15 97 12/18/22 23:15 121/58 L 12/18/22 23:15 84 16 96 12/18/22 23:10 85 16 97 12/18/22 23:00 85 15 96 12/18/22 23:00 120/56 L 12/18/22 22:50 88 13 97 12/18/22 22:46 90 20 96 12/18/22 22:46 116/55 L 12/19/22 02:30 36.6 C 12/18/22 21:23 Nasal Cannula 2 Laboratory Results 12/19/22 05:27 12/19/22 05:27 Coding Level of Care Code 40312 CRITICAL CARE 1ST 30-74M Diagnoses Hx laparoscopic cholecystectomy Z90.49 SAMMY (acute kidney injury) N17.9 Cholangitis K83.09 Afib I48.91 Acute respiratory failure with hypoxia J96.01 Shock circulatory R57.9 Acute pancreatitis K85.90 Acute pancreatitis complication: unspecified Pancreatitis type: unspecified pancreatitis type Bile leak from gallbladder bed K83.8 Time Spent (min) 43 (7) Acute pancreatitis Acute pancreatitis complication: unspecified Pancreatitis type: unspecified pancreatitis type Qualified Code(s): K85.90 - Acute pancreatitis without necrosis or infection, unspecified
--- NOTE | 2022-12-19 12:04 | Nephrology Progress Note ---
Date of Service December 19, 2022 Assessment & Plan Admission and Anticipated Discharge Date Admission Date: December 09, 2022 Subjective Assessment & Plan (1) DILIP (acute kidney injury): Plan: baseline creatinine 0.8-went to 8+ and then started dialysis. Sec to ischemic ATN --Sepsis and Contrast. sepsis from pancreatitis/cholecystitis, then compounded by poor renal perfusion w/ ongoing pAF and hypotension for several days . Creat still rising. chemistries okay though worsening. volume status ok on exam and per CXR Dilip: Urine output seems to be lower which is not good. Plan is to do dialysis tomorrow depending on labs. CVC did not work great yesterday and will use heparin tomorrow. Also very positional. IVC collapsed and ? Intravascular volume depleted--so no need of UF. Dialysis will be on 3or 4K bath depending on k tomorrow. No need of renal diet. Subjective Had dialysis yesterday. Some problem with CVC not working great. Issues with Low BP but has been off pressors since this AM. Urine is low though. Off and On Afibb with RVR.. Review of Systems Review of Systems: All systems reviewed & are unremarkable except as noted in Subjective Physical Exam Constitutional: well developed and well nourished; no acute distress Eyes: EOM intact bilaterally ENMT: Ears: no external ear abnormality Nose: no external nose abnormality Mouth: + dry oral mucous membranes Neck: no nuchal rigidity Respiratory: normal respiratory effort and + paradoxical thoraco-abdominal movement; no respiratory distress Auscultation: + diminished lung sounds (markedly) Cardiovascular: Rate/Rhythm: regular rate and regular rhythm Extremities: no edema Gastrointestinal (Abdomen): Inspection/Auscultation: normal bowel sounds; + abdomen abnormal to inspection (Right upper quadrant drain) Percussion/ Palpation: abdomen soft; abdomen nontender Musculoskeletal: Extremities: + abnormal strength (cannot situp w/o asst; BLE weak) Skin: no rashes, warm and dry Psychiatric: Orientation: alert, oriented x 3, oriented to person and cooperative Results & Data Vital Signs (Past 12 Hours) Vital Signs Temp Pulse Resp BP Pulse Ox O2 Del Method O2 Flow Rate 12/19/22 12:00 76 14 95 Nasal Cannula 1 12/19/22 11:30 124/73 12/19/22 11:30 75 18 95 12/19/22 11:00 73 20 94 12/19/22 11:00 122/61 12/19/22 10:45 128/58 L 12/19/22 10:45 74 20 96 12/19/22 10:30 120/52 L 12/19/22 10:30 73 15 96 12/19/22 10:15 132/63 12/19/22 10:15 74 15 95 12/19/22 10:00 75 18 96 12/19/22 10:00 117/58 L 12/19/22 09:45 112/52 L 12/19/22 09:45 71 14 95 12/19/22 09:30 71 14 95 12/19/22 09:30 108/51 L 12/19/22 09:15 72 15 95 12/19/22 09:15 118/51 L 12/19/22 09:00 75 15 95 12/19/22 09:00 107/51 L 12/19/22 08:45 75 15 95 12/19/22 08:45 115/52 L 12/19/22 08:30 113/49 L 12/19/22 08:30 73 14 95 12/19/22 11:00 20 95 1 12/19/22 08:00 36.6 C 12/19/22 08:15 72 16 95 Nasal Cannula 2 12/19/22 08:01 106/50 L 12/19/22 08:01 76 15 94 12/19/22 08:00 75 18 94 12/19/22 07:45 75 17 95 12/19/22 07:45 113/53 L 12/19/22 07:43 76 21 95 12/19/22 07:43 111/53 L 12/19/22 07:30 76 16 96 12/19/22 07:30 124/60 12/19/22 07:15 75 15 96 12/19/22 08:00 Nasal Cannula 2 12/19/22 07:08 75 12/19/22 07:00 76 15 97 12/19/22 07:00 129/61 12/19/22 04:20 85 14 93 12/19/22 04:10 121 H 14 96 12/19/22 04:00 76 14 96 12/19/22 04:00 102/43 L 12/19/22 03:50 77 16 96 12/19/22 03:40 77 15 95 12/19/22 03:30 77 14 95 12/19/22 03:30 110/58 L 12/19/22 03:20 76 15 96 12/19/22 03:10 85 14 95 12/19/22 03:00 83 13 95 12/19/22 03:00 125/58 L 12/19/22 02:50 78 14 96 12/19/22 02:40 74 15 96 12/19/22 02:30 76 15 96 12/19/22 02:30 115/56 L 12/19/22 02:20 73 15 96 12/19/22 02:10 76 14 96 12/19/22 02:00 80 15 95 12/19/22 02:00 121/60 12/19/22 01:50 79 14 95 12/19/22 01:40 77 15 95 12/19/22 01:30 79 13 94 12/19/22 01:20 79 16 95 12/19/22 01:10 79 16 95 12/19/22 01:00 78 13 96 12/19/22 01:00 114/53 L 12/19/22 00:50 80 14 96 12/19/22 00:40 83 15 95 12/19/22 00:30 85 17 95 12/19/22 00:30 110/59 L 12/19/22 00:20 85 15 96 12/19/22 00:10 83 15 96 12/19/22 02:30 36.6 C
[2022-12-19] MEDS: FLUTICASONE PROPIONATE NA SPR 16 GM BTL NAE SCH (12:30)
--- NOTE | 2022-12-19 13:00 | Cardiology Progress Note ---
Date of Service December 19, 2022 Assessment & Plan (1) Afib: (2) Acute pancreatitis: (3) Cholecystitis: (4) S/P laparoscopic cholecystectomy: (5) Hypertension: Plan IMPRESSION: 72-year-old female without significant cardiac past medical history. Admitted for acute pancreatitis and cholecystitis. S/p lap Cholecystectomy and ERCP. Decline in clinic status- metabolic acidosis. During admission found to have new onset PAF in the setting of acute illness. Briefly on amiodarone- bradycardic rates 3/15 ~130pm. Amio stopped and metoprolol held. No PAF noted over night. [id number] score- 3 (age, female, HTN) Tele: NSR with PACs 70-80s. Patient with intermittent atrial fibrillation overnight now on IV amiodarone therapy with return to normal sinus rhythm. Appears to be tolerating. Prior bradycardia not present. Paroxysmal atrial fibrillation flutter being driven by underlying medical illnesses. Overall systolic function hyperdynamic by past echo PLAN: Check EKG today in a.m. check QT interval Would recommend supplementing potassium during dialysis K greater than 4 Continue IV amiodarone Admission and Anticipated Discharge Date Admission Date: December 09, 2022 Subjective Patient seen and examined, chart, medications, telemetry reviewed. Patient on BiPAP at the time of examination. Does converse denies any acute complaints at this point time Is aware of intermittent atrial tachycardia/atrial fibrillation. Currently on IV amiodarone, beta-jorge luis on hold due to transient hypotension yesterday No chest pains or acute shortness of breath generalized fatigue. No neurologic complaint Review of Systems Review of Systems: All systems reviewed & are unremarkable except as noted in Subjective Physical Exam Constitutional: + ill appearing Eyes: PERRL, conjunctivae normal, anicteric sclerae Neck: trachea midline, no thyromegaly Respiratory: Auscultation: + diminished lung sounds Cardiovascular: Rate/Rhythm: regular rate and regular rhythm Heart Sounds: normal S1 and normal S2 Extremities: + edema (Mild 1+) Gastrointestinal (Abdomen): Percussion/Palpation: abdomen soft Results & Data Vital Signs (Past 12 Hours) Vital Signs Temp Pulse Resp BP Pulse Ox O2 Del Method O2 Flow Rate 12/19/22 12:00 76 14 95 Nasal Cannula 1 12/19/22 11:30 124/73 12/19/22 11:30 75 18 95 12/19/22 11:00 73 20 94 12/19/22 11:00 122/61 12/19/22 10:45 128/58 L 12/19/22 10:45 74 20 96 12/19/22 10:30 120/52 L 12/19/22 10:30 73 15 96 12/19/22 10:15 132/63 12/19/22 10:15 74 15 95 12/19/22 10:00 75 18 96 12/19/22 10:00 117/58 L 12/19/22 09:45 112/52 L 12/19/22 09:45 71 14 95 12/19/22 09:30 71 14 95 12/19/22 09:30 108/51 L 12/19/22 09:15 72 15 95 12/19/22 09:15 118/51 L 12/19/22 09:00 75 15 95 12/19/22 09:00 107/51 L 12/19/22 08:45 75 15 95 12/19/22 08:45 115/52 L 12/19/22 08:30 113/49 L 12/19/22 08:30 73 14 95 12/19/22 11:00 20 95 1 12/19/22 08:00 36.6 C 12/19/22 08:15 72 16 95 Nasal Cannula 2 12/19/22 08:01 106/50 L 12/19/22 08:01 76 15 94 12/19/22 08:00 75 18 94 12/19/22 07:45 75 17 95 12/19/22 07:45 113/53 L 12/19/22 07:43 76 21 95 12/19/22 07:43 111/53 L 12/19/22 07:30 76 16 96 12/19/22 07:30 124/60 12/19/22 07:15 75 15 96 12/19/22 08:00 Nasal Cannula 2 12/19/22 07:08 75 12/19/22 07:00 76 15 97 12/19/22 07:00 129/61 12/19/22 04:20 85 14 93 12/19/22 04:10 121 H 14 96 12/19/22 04:00 76 14 96 12/19/22 04:00 102/43 L 12/19/22 03:50 77 16 96 12/19/22 03:40 77 15 95 12/19/22 03:30 77 14 95 12/19/22 03:30 110/58 L 12/19/22 03:20 76 15 96 12/19/22 03:10 85 14 95 12/19/22 03:00 83 13 95 12/19/22 03:00 125/58 L 12/19/22 02:50 78 14 96 12/19/22 02:40 74 15 96 12/19/22 02:30 76 15 96 12/19/22 02:30 115/56 L 12/19/22 02:20 73 15 96 12/19/22 02:10 76 14 96 12/19/22 02:00 80 15 95 12/19/22 02:00 121/60 12/19/22 01:50 79 14 95 12/19/22 01:40 77 15 95 12/19/22 01:30 79 13 94 12/19/22 01:20 79 16 95 12/19/22 01:10 79 16 95 12/19/22 02:30 36.6 C Laboratory Results Laboratory Results - last 24 hr 12/18/22 12/18/22 12/18/22 16:06 20:37 20:37 WBC RBC Hgb Hct MCV MCH MCHC RDW Std Deviation RDW Coeff of Mandy Plt Count MPV Sodium 138 Potassium 3.6 Chloride 99 Carbon Dioxide 21 Anion Gap 18 H BUN 58 H D Creatinine 5.29 H* D Est Cr Clr Drug Dosing 11.1 Est GFR ( Amer) 8.6 Est GFR (Non-Af Amer) 7.5 BUN/Creatinine Ratio 11.0 Glucose 153 H POC Glucose 128 H Calcium 8.5 Phosphorus Magnesium Total Bilirubin AST ALT Alkaline Phosphatase Total Protein Albumin Globulin Albumin/Globulin Ratio Procalcitonin TSH 3.943 Free T4 0.50 L 12/18/22 12/18/22 12/19/22 20:42 20:45 05:27 WBC 29.07 H RBC 3.65 L Hgb 10.9 L Hct 30.6 L MCV 83.8 MCH 29.9 MCHC 35.6 RDW Std Deviation 46.0 RDW Coeff of Mandy 15.2 H Plt Count 227 MPV 10.6 Sodium Potassium Chloride Carbon Dioxide Anion Gap BUN Creatinine Est Cr Clr Drug Dosing Est GFR ( Amer) Est GFR (Non-Af Amer) BUN/Creatinine Ratio Glucose POC Glucose 149 H 137 H Calcium Phosphorus Magnesium Total Bilirubin AST ALT Alkaline Phosphatase Total Protein Albumin Globulin Albumin/Globulin Ratio Procalcitonin TSH Free T4 12/19/22 12/19/22 12/19/22 05:27 05:27 07:42 WBC RBC Hgb Hct MCV MCH MCHC RDW Std Deviation RDW Coeff of Mandy Plt Count MPV Sodium 138 Potassium 3.4 L Chloride 100 Carbon Dioxide 22 Anion Gap 16 H BUN 62 H Creatinine 5.58 H* Est Cr Clr Drug Dosing 10.5 Est GFR ( Amer) 8.1 Est GFR (Non-Af Amer) 7.0 BUN/Creatinine Ratio 11.1 Glucose 157 H POC Glucose 150 H Calcium 7.8 L Phosphorus 5.7 H Magnesium 2.3 Total Bilirubin 1.2 H AST 16 ALT 16 Alkaline Phosphatase 109 H Total Protein 5.7 L Albumin 2.3 L Globulin 3.4 Albumin/Globulin Ratio 0.7 L Procalcitonin 1.48 H TSH Free T4 12/19/22 11:11 WBC RBC Hgb Hct MCV MCH MCHC RDW Std Deviation RDW Coeff of Mandy Plt Count MPV Sodium Potassium Chloride Carbon Dioxide Anion Gap BUN Creatinine Est Cr Clr Drug Dosing Est GFR ( Amer) Est GFR (Non-Af Amer) BUN/Creatinine Ratio Glucose POC Glucose 171 H Calcium Phosphorus Magnesium Total Bilirubin AST ALT Alkaline Phosphatase Total Protein Albumin Globulin Albumin/Globulin Ratio Procalcitonin TSH Free T4 (2) Acute pancreatitis Acute pancreatitis complication: unspecified Pancreatitis type: unspecified pancreatitis type Qualified Code(s): K85.90 - Acute pancreatitis without necrosis or infection, unspecified
--- NOTE | 2022-12-19 15:06 | Hospitalist Progress Note ---
Date of Service December 19, 2022 Assessment & Plan (1) Acute pancreatitis: (2) Nausea and vomiting: Plan: Possible related togallstone related pancreatitis Present on admission with abdominal pain that radiating to back associating with vomiting and nausea CT abd/pel showedperipancreatic fat stranding is seen concerning for pancreatitis. Prominence of the gallbladder may be reactive or less likely may represent acute cholecystitis. Abdomen u/s showedgallbladder is distended and full of stones/sludge as detailed above. Findings are suspicious for acute cholecystitis. Lipase above 4000's on admission, Lipase 2960--> then 678-->63 Elevated LFT with AST 313 and ALT 536 S/p Lap chol and ERCPwith sphincterotomy and balloon sweeping of the bile duct for stones and puswith stent placement on 12/10/22 Acute cholangitis Transaminitis Sepsis. LFTs normalized. Tbil improving down to 1.2 Hb is 11.8 today Gen surg board CT abd/P on 12/17/22 noted severe pancreatitis similar to prior study, small amount of perihepatic fluid/small amount of pneumoperitoneum, subhepatic catheter unchanged in position, CBD stent with associated pneumobilia, small b/l pleural effusion, unchanged airspace opacities in the lungs. Persistent leukocytosis at 29K. Continue broad spectrum antibiotic with IV Zosyn Blood and urine culture were negative MIMI drain fluid culture negative so far Surgery plan to keep the MIMI drain for now Continue to encourage incentive spirometry and flutter Wean off oxygen as tolerated Paroxysmal Afib Was initially on amio drip and was off for a while. Amio resumed yesterday due to Afib w/RVR Pressor started for hypotension. Hypotension could be due to IV amio. However, septic shock is a possibility ECHO showed normal LV wall function. EF 65 to 70 % Cardiology on board Heparin drip on hold considering comorbidities: severe pancreatitis/risk of hemorrhagic pancreatitis, recent surgery SAMMY Worsening renal function. 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 No HD today. Plan HD for tomorrow Continue to hold Losartan Avoid nephrotoxic agents Prediabetes Recent Hba1c 6.1 on 12/10/22 Continue monitor BS Hypertension Currently hypotensive as above Antihypertensives on hold Continue monitor BP Hyperthyroidism Continue Methimazole Anxiety Continue Sertraline Code status full code DVT px SCD. Hep gtt on hold as above Updated daughter and sister who were at bedside PT/OT I spent a total of 55 minutes coordinating, documenting and providing care for this patient excluding time spent in performance of separately billed services Admission and Anticipated Discharge Date Admission Date: December 09, 2022 Subjective Patient seen and examined Patient went into Afib with RVR again yesterday evening Currently iv amiodarone drip Also required low dose phenylephrine Denies any new complaints at this time Still reports cough and some shortness of breath with activity Denied chest pain, palpitations Denied nausea, vomiting,abd pain Physical Exam Constitutional: no acute distress Eyes: PERRL, conjunctivae normal, anicteric sclerae ENMT: external ear and nose normal, oropharynx normal Respiratory: normal respiratory effort; no respiratory distress Auscultation: + diminished lung sounds Cardiovascular: Rate/Rhythm: + irregularly irregular S1 S2 Gastrointestinal (Abdomen): normal bowel sounds, soft, nontender, no hepatosplenomegaly Musculoskeletal: MIMI drain in situ Neurologic: PERRL, EOMI, accommodation nl, no face palsy, no dysarthria Psychiatric: Orientation: alert, oriented to person, oriented to place and cooperative; + not oriented to time Cooperative Results & Data Results & Data Vital Signs (Past 12 Hours) Vital Signs Temp Pulse Resp BP Pulse Ox O2 Del Method O2 Flow Rate 12/19/22 13:00 75 20 95 Nasal Cannula 1 12/19/22 13:00 134/60 12/19/22 12:30 124/80 12/19/22 12:30 76 14 96 12/19/22 12:00 123/77 12/19/22 12:00 76 14 95 Nasal Cannula 1 12/19/22 11:30 124/73 12/19/22 11:30 75 18 95 12/19/22 11:00 73 20 94 12/19/22 11:00 122/61 12/19/22 10:45 128/58 L 12/19/22 10:45 74 20 96 12/19/22 10:30 120/52 L 12/19/22 10:30 73 15 96 12/19/22 10:15 132/63 12/19/22 10:15 74 15 95 12/19/22 10:00 75 18 96 03/21/23 10:00 117/58 L 12/19/22 09:45 112/52 L 12/19/22 09:45 71 14 95 12/19/22 09:30 71 14 95 12/19/22 09:30 108/51 L 12/19/22 09:15 72 15 95 12/19/22 09:15 118/51 L 12/19/22 09:00 75 15 95 12/19/22 09:00 107/51 L 12/19/22 08:45 75 15 95 12/19/22 08:45 115/52 L 12/19/22 08:30 113/49 L 12/19/22 08:30 73 14 95 12/19/22 11:00 20 95 1 12/19/22 08:00 36.6 C 12/19/22 08:15 72 16 95 Nasal Cannula 2 12/19/22 08:01 106/50 L 12/19/22 08:01 76 15 94 12/19/22 08:00 75 18 94 12/19/22 07:45 75 17 95 12/19/22 07:45 113/53 L 12/19/22 07:43 76 21 95 12/19/22 07:43 111/53 L 12/19/22 07:30 76 16 96 12/19/22 07:30 124/60 12/19/22 07:15 75 15 96 12/19/22 08:00 Nasal Cannula 2 12/19/22 07:08 75 12/19/22 07:00 76 15 97 12/19/22 07:00 129/61 12/19/22 04:20 85 14 93 12/19/22 04:10 121 H 14 96 12/19/22 04:00 76 14 96 12/19/22 04:00 102/43 L 12/19/22 03:50 77 16 96 12/19/22 03:40 77 15 95 12/19/22 03:30 77 14 95 12/19/22 03:30 110/58 L 12/19/22 03:20 76 15 96 12/19/22 03:10 85 14 95 Laboratory Results Abnormal lab results 12/18/22 12/18/22 12/18/22 Range/Units 20:37 20:37 20:42 WBC (4.8-10.8) K/ul RBC (4.20-5.40) M/uL Hgb (12.0-16.0) g/dl Hct (37.0-47.0) % RDW Coeff of Madny (11.5-14.5) % Potassium (3.5-5.1) mmol/L Anion Gap 18 H (3-11) BUN 58 H D (6-23) mg/dl Creatinine 5.29 H* D (0.6-1.2) mg/dl Glucose 153 H (70-99(Fasting)) mg/dl POC Glucose 149 H (70-99) mg/dl Calcium (8.5-10.1) mg/dl Phosphorus (2.5-4.9) mg/dl Total Bilirubin (0.2-1.0) mg/dl Alkaline Phosphatase (34-104) U/L Total Protein (6.0-8.3) gm/dl Albumin (3.4-5.0) gm/dl Albumin/Globulin Ratio (0.9-2) Procalcitonin (0-0.5) ng/ml Free T4 0.50 L (0.61-1.60) ng/dl 12/18/22 12/19/22 12/19/22 Range/Units 20:45 05:27 05:27 WBC 29.07 H (4.8-10.8) K/ul RBC 3.65 L (4.20-5.40) M/uL Hgb 10.9 L (12.0-16.0) g/dl Hct 30.6 L (37.0-47.0) % RDW Coeff of Mandy 15.2 H (11.5-14.5) % Potassium 3.4 L (3.5-5.1) mmol/L Anion Gap 16 H (3-11) BUN 62 H (6-23) mg/dl Creatinine 5.58 H* (0.6-1.2) mg/dl Glucose 157 H (70-99(Fasting)) mg/dl POC Glucose 137 H (70-99) mg/dl Calcium 7.8 L (8.5-10.1) mg/dl Phosphorus 5.7 H (2.5-4.9) mg/dl Total Bilirubin 1.2 H (0.2-1.0) mg/dl Alkaline Phosphatase 109 H (34-104) U/L Total Protein 5.7 L (6.0-8.3) gm/dl Albumin 2.3 L (3.4-5.0) gm/dl Albumin/Globulin Ratio 0.7 L (0.9-2) Procalcitonin (0-0.5) ng/ml Free T4 (0.61-1.60) ng/dl 12/19/22 12/19/22 12/19/22 Range/Units 05:27 07:42 11:11 WBC (4.8-10.8) K/ul RBC (4.20-5.40) M/uL Hgb (12.0-16.0) g/dl Hct (37.0-47.0) % RDW Coeff of Mandy (11.5-14.5) % Potassium (3.5-5.1) mmol/L Anion Gap (3-11) BUN (6-23) mg/dl Creatinine (0.6-1.2) mg/dl Glucose (70-99(Fasting)) mg/dl POC Glucose 150 H 171 H (70-99) mg/dl Calcium (8.5-10.1) mg/dl Phosphorus (2.5-4.9) mg/dl Total Bilirubin (0.2-1.0) mg/dl Alkaline Phosphatase (34-104) U/L Total Protein (6.0-8.3) gm/dl Albumin (3.4-5.0) gm/dl Albumin/Globulin Ratio (0.9-2) Procalcitonin 1.48 H (0-0.5) ng/ml Free T4 (0.61-1.60) ng/dl 12/19/22 Range/Units 16:07 WBC (4.8-10.8) K/ul RBC (4.20-5.40) M/uL Hgb (12.0-16.0) g/dl Hct (37.0-47.0) % RDW Coeff of Mandy (11.5-14.5) % Potassium (3.5-5.1) mmol/L Anion Gap (3-11) BUN (6-23) mg/dl Creatinine (0.6-1.2) mg/dl Glucose (70-99(Fasting)) mg/dl POC Glucose 190 H (70-99) mg/dl Calcium (8.5-10.1) mg/dl Phosphorus (2.5-4.9) mg/dl Total Bilirubin (0.2-1.0) mg/dl Alkaline Phosphatase (34-104) U/L Total Protein (6.0-8.3) gm/dl Albumin (3.4-5.0) gm/dl Albumin/Globulin Ratio (0.9-2) Procalcitonin (0-0.5) ng/ml Free T4 (0.61-1.60) ng/dl (1) Acute pancreatitis Acute pancreatitis complication: unspecified Pancreatitis type: unspecified pancreatitis type Qualified Code(s): K85.90 - Acute pancreatitis without necrosis or infection, unspecified (2) Nausea and vomiting Vomiting type: unspecified Qualified Code(s): R11.2 - Nausea with vomiting, unspecified
[2022-12-19] MEDS: CASPOFUNGIN 50 MG in SODIUM CHLORIDE 0.9% 250 ML IV SCH (16:54)
[2022-12-19] MEDS ORDERED: POTASSIUM CHLORIDE / WTR 20 MEQ/100 ML PLCT IV ONE (17:23)
[2022-12-19] MEDS: CETIRIZINE HCL 10 MG TABLET PO SCH (20:18)
[2022-12-20] MEDS: PIPERACILLIN/TAZOBACTAM 4.5 GM in DEXTROSE 5% 100 ML IV SCH ×2 (02:18→14:46)
[2022-12-20 05:06] LABS: Hematocrit (blood only) 29.7 % (37.0-47.0); Hemoglobin 10.5 g/dl (12.0-16.0); Mean Corpuscular Hemoglobin 29.8 pg (25.0-34.0); Mean Corpuscular Hgb Conc 35.4 g/dL (32.0-36.0); Mean Corpuscular Volume 84.4 fL (80.0-100.0); Mean Platelet Volume 9.9 fL (9.4-12.4); Platelet Count 255 K/uL (130-400); RDW Coefficient of Variation 15.1 % (11.5-14.5); RDW Standard Deviation 46.5 fL (36.4-46.3); Red Blood Count 3.52 M/uL (4.20-5.40); White Blood Count 20.03 K/ul (4.8-10.8)
[2022-12-20 05:45] LABS: Albumin Globulin Ratio 0.7 (0.9-2); Albumin Level 2.4 gm/dl (3.4-5.0); BUN Creatinine Ratio 11.2 (10-20); Bilirubin,Total 0.9 mg/dl (0.2-1.0); Calcium 7.9 mg/dl (8.5-10.1); Creatinine Clr Calc Pharmacy 8.8 ml/min; Est GFR (African American) 6.5 ml/min; Est GFR (Non-African American) 5.6 ml/min; Globulin 3.5 gm/dl (2.5-4.0); Magnesium 2.3 mg/dl (1.7-2.4); Phosphorus 6.4 mg/dl (2.5-4.9); Potassium 3.7 mmol/L (3.5-5.1); Total Protein 5.9 gm/dl (6.0-8.3)
--- NOTE | 2022-12-20 07:48 | Surgery Progress Note ---
Date of Service December 20, 2022 Assessment & Plan (1) Bile leak from gallbladder bed: Plan: POD#9 WBC 20 (29). LFTs WNL. Cr 6.7 Diet as tolerates Continue MIMI drain. no bilious output noted. output is decreasing In ICU for needs for dialysis and management of afib status Pt seen/examined with dr. lawson Admission and Anticipated Discharge Date Admission Date: December 09, 2022 Subjective Patient reports feeling better overall. Tolerating a diet. No abdominal pain/n/v. Back pain comes and goes. Physical Exam Physical Exam: awake, no distress Respiratory: normal respiratory effort (on supplemental nasal cannula) Gastrointestinal (Abdomen): Inspection/Auscultation: + abdominal surgical incision (sutures in place. c/d/i) and + abdominal surgical drain present (dark sangenous) Results & Data Vital Signs (Past 12 Hours) Vital Signs Temp Pulse Resp BP Pulse Ox O2 Flow Rate 12/20/22 06:48 78 12/20/22 06:20 73 16 95 12/20/22 06:10 73 16 95 12/20/22 06:00 75 16 94 12/20/22 06:00 135/73 12/20/22 05:50 73 16 95 12/20/22 05:40 74 16 95 12/20/22 05:30 76 17 94 12/20/22 05:30 137/68 12/20/22 05:20 78 17 95 12/20/22 05:10 74 13 94 12/20/22 05:00 77 16 94 12/20/22 05:00 141/64 H 12/20/22 04:50 78 17 95 12/20/22 04:40 78 16 94 12/20/22 04:30 78 16 94 12/20/22 04:30 130/80 12/20/22 04:20 109 H 16 94 12/20/22 04:10 87 15 94 12/20/22 04:00 75 18 95 12/20/22 04:00 134/66 12/20/22 03:50 90 16 94 12/20/22 03:40 76 16 94 12/20/22 03:30 124 H 17 94 12/20/22 03:30 136/63 12/20/22 03:20 127 H 17 94 12/20/22 03:10 77 17 95 12/20/22 03:00 78 16 94 03/22/23 03:00 140/65 12/20/22 02:50 78 16 94 12/20/22 02:40 77 15 94 12/20/22 02:30 78 17 95 03 02:30 148/66 H 12/20/22 02:20 78 17 94 12/20/22 02:10 77 17 94 12/20/22 02:00 72 16 93 12/20/22 02:00 123/63 12/20/22 01:50 72 15 94 12/20/22 01:40 71 15 93 12/20/22 01:30 73 15 93 12/20/22 01:30 124/62 12/20/22 01:20 75 16 94 12/20/22 01:10 78 17 95 12/20/22 01:00 79 16 94 12/20/22 01:00 114/64 12/20/22 00:50 71 15 93 12/20/22 00:40 83 15 94 12/20/22 00:30 115 H 17 94 12/20/22 00:30 116/67 12/20/22 00:20 75 18 94 12/20/22 00:10 89 17 96 03 00:00 75 17 95 03 00:00 143/65 H 12/19/22 23:50 117 H 17 96 03 23:40 106 H 17 97 12/19/22 23:30 75 17 95 0323 23:30 114/66 23 23:20 96 H 16 95 03 23:10 74 15 96 0323 23:00 81 15 96 0323 23:00 140/69 23 22:50 87 15 95 0323 22:40 86 16 96 0323 22:30 76 17 97 0323 22:30 141/71 H 23 22:20 75 16 97 [id number] 01:46 36.6 C 12/20/22 00:01 21 96 1 12/19/22 22:10 77 17 97 0323 22:00 77 17 98 03 22:00 149/67 H 23 21:50 76 18 97 0323 21:40 81 18 96 12/19/22 21:30 74 16 94 12/19/22 21:30 128/73 12/19/22 21:20 77 16 95 12/19/22 21:10 75 16 95 12/19/22 21:01 131/61 12/19/22 21:01 75 16 12/19/22 21:00 108 H 16 95 12/19/22 20:50 75 17 95 12/19/22 20:40 76 15 94 12/19/22 20:30 77 19 94 12/19/22 20:30 138/68 12/19/22 20:20 76 16 94 12/19/22 20:10 75 15 95 12/19/22 20:00 75 15 95 12/19/22 20:00 137/67 12/19/22 19:50 74 16 95 12/19/22 20:23 36.6 C PG Care Time/CCT Total # of Minutes Spent Total Time Spent with Patient: Total time spent is greater than 50% in coordination of care (as documented) at patient's floor/unit and/or counseling patient: Coding Level of Care Code 16233 Post Operative Follow-Up Diagnoses Bile leak from gallbladder bed K83.8
[2022-12-20] MEDS: INSULIN ASPART PER UNIT CHARGE SC SCH ×4 (08:34→20:21)
[2022-12-20] MEDS: methIMAzole 5 MG TABLET PO SCH (08:39)
[2022-12-20] MEDS: FLUTICASONE PROPIONATE NA SPR 16 GM BTL NAE SCH (08:39)
[2022-12-20] MEDS: SERTRALINE HCL 50 MG TABLET PO SCH (08:39)
[2022-12-20] MEDS: DOCUSATE SODIUM/SENNA 50/8.6MG TAB PO SCH ×2 (08:39→19:11)
[2022-12-20] MEDS: HEPARIN SOD 5,000 UNIT/0.5 ML VIAL SQ SCH ×2 (08:39→20:21)
[2022-12-20] MEDS: CALCIUM CARBONATE 1,250 MG/5 ML UDC PO SCH ×2 (08:40→20:21)
[2022-12-20] MEDS ORDERED: POTASSIUM CHLORIDE / WTR 20 MEQ/100 ML PLCT IV ONE (09:17)
--- NOTE | 2022-12-20 09:22 | Critical Care Progress Note ---
Date of Service December 20, 2022 Assessment & Plan (1) Hx laparoscopic cholecystectomy: (2) SAMMY (acute kidney injury): (3) Cholangitis: (4) Afib: (5) Acute respiratory failure with hypoxia: (6) Shock circulatory: (7) Acute pancreatitis: (8) Bile leak from gallbladder bed: Plan Reason Critically Ill: 72-year-old female admitted to the hospital because of acute pancreatitis was complicated by cholecystitis and biliary leak s/p cholecystectomy on MIMI drain. She also had SAMMY, creatinine not improving Transferred to ICU for hemodialysis Neuro - [facility] ICU: Negative Cardiac - -- S/p shock With elevated WBC underlying etiology sepsis Continue with antibiotics High risk of fungal infection --> started on antifungals on 12/18/2022 -- New onset A-fib Not on heparin drip because of high risk for hemorrhagic conversion of pancreatitis Amiodarone restarted on 12/18/2022 given requirement for vasopressors. Blockers on hold TSH 3.94, free T4 (Low) 0.50 --Prolonged QTc Monitor, QTc 506 12/20/2022 Avoid QT prolonging medication Keep potassium greater than 4, magnesium greater than 2, phosphorus greater than 3 Respiratory - -- Acute respiratory failure with hypoxia Likely from dependent atelectasis Continue with incentive spirometry O2 supplementation to keep oxygen saturation between 88-92% GI - -- Acute cholangitis with transaminitis LFTs are improving Status post lap cholecystectomy and ERCP with splinter ectomy and balloon sweeping of the bile duct for stones and pus, stent placement 12/10/2022 Continue to trend MIMI drain in place --Acute pancreatitis S/p acute phase RENAL/LYTES - --SAMMY Likely ATN now from severe pancreatitis Will need hemodialysis Shiley catheter placed 12/18/2022 --> started on dialysis 12/18/2022 ENDO - -- Hyperthyroidism Continue with methimazole Continue with ICU glycemic protocol HEME - Monitor H&H ID - -- Acute cholangitis On Zosyn --Given persistently elevated WBC and clinical worsening with hypotension empirically started the patient on caspofungin Patient also had bile leak which also increases the risk of fungal infection Follow-up fungal culture --Prophylaxis VTE: IPC and heparin GI: Pantoprazole Lines: Right Shiley, positive Tomlinson Diet: Renal Plan: In/out: +932 mL, urine output 110 mL, +13 L since coming to the hospital WBC is starting to trend down. Fungal culture is negative to date, continue with caspofungin Continue with Zosyn. Continue with amiodarone given the patient is still having runs of A-fib with RVR Potassium being replaced For hemodialysis later today. I have personally spent 38 minutes of critical care time in the direct management of this patient. This is a life/limb threatening event. This includes time spent evaluating patient, direct bedside care, chart review, placing orders, interpretation of diagnostic studies, discussion with consultants, patient, and family members, as well as other required patient management activities. This time is exclusive of all separately billable procedures, and teaching time and separate from and in addition to any other critical care service time. Admission and Anticipated Discharge Date Admission Date: December 09, 2022 Subjective Patient seen and examined at bedside. No acute distress, no adverse events overnight Patient has been off all vasopressor support for more than 24 hours Overall she says she is doing better Denies any chest pain, no abdominal pain No shortness of breath Does complain of generalized lethargy. Having bowel movements No fever Was saturating 94-95% on 1 L nasal cannula Cough is significantly improved after starting Flonase and cetirizine Review of Systems Review of Systems: All systems reviewed & are unremarkable except as noted in Subjective Physical Exam Physical Exam: Constitutional: No acute distress HEENT: EOMI, PERRLA Respiratory system: Decreased air entry bilaterally, no wheeze, no rhonchi, positive crackles bilateral lower lobes CVS: S1-S2 positive, no murmurs or gallops Abdomen: Soft, nontender, nondistended, positive bowel sounds x4, positive MIMI drain Extremities: +2 pulses bilaterally radialis/ dorsalis pedis, no cyanosis, +1 pitting edema bilateral lower extremity Neuro: Awake alert oriented x3 Psych: Normal mood and affect G/U: Positive Tomlinson Skin: no rashes, warm and dry Lymphatic: no cervical or axillary lymphadenopathy Results & Data Results & Data Vital Signs (Past 12 Hours) Vital Signs Temp Pulse Resp BP Pulse Ox O2 Del Method O2 Flow Rate 12/20/22 07:30 150/78 H 12/20/22 07:30 80 23 94 Nasal Cannula 1 12/20/22 07:00 76 16 94 12/20/22 07:00 139/61 12/20/22 06:30 142/63 H 12/20/22 06:30 77 16 95 03/ 07:30 Nasal Cannula 1 12/20/22 06:48 78 03 06:20 73 16 95 03/ 06:10 73 16 95 03/ 06:00 75 16 94 03/ 06:00 135/73 03/ 05:50 73 16 95 03/ 05:40 74 16 95 03/ 05:30 76 17 94 03 05:30 137/68 03/23 05:20 78 17 95 03/ 05:10 74 13 94 03/ 05:00 77 16 94 03 05:00 141/64 H 12/20/22 04:50 78 17 95 03/ 04:40 78 16 94 03/ 04:30 78 16 94 03/ 04:30 130/80 12/20/ 04:20 109 H 16 94 03/ 04:10 87 15 94 03/ 04:00 75 18 95 03/23 04:00 134/66 03/ 03:50 90 16 94 03/ 03:40 76 16 94 03/23 03:30 124 H 17 94 03/23 03:30 136/63 03/23 03:20 127 H 17 94 03/ 03:10 77 17 95 03/23 03:00 78 16 94 03/ 03:00 140/65 03/23 02:50 78 16 94 03/23 02:40 77 15 94 03/23 02:30 78 17 95 03/23 02:30 148/66 H 03/23 02:20 78 17 94 03/23 02:10 77 17 94 03/23 02:00 72 16 93 03/23 02:00 123/63 03/23 01:50 72 15 94 0322/23 01:40 71 15 93 0322/23 01:30 73 15 93 0322/23 01:30 124/62 0322/23 01:20 75 16 94 03/23 01:10 78 17 95 03/23 01:00 79 16 94 12/20/22 01:00 114/64 12/20/22 00:50 71 15 93 12/20/22 00:40 83 15 94 12/20/22 00:30 115 H 17 94 12/20/22 00:30 116/67 12/20/22 00:20 75 18 94 12/20/22 00:10 89 17 96 12/20/22 00:00 75 17 95 12/20/22 00:00 143/65 H 12/19/22 23:50 117 H 17 96 12/19/22 23:40 106 H 17 97 12/19/22 23:30 75 17 95 12/19/22 23:30 114/66 12/19/22 23:20 96 H 16 95 12/19/22 23:10 74 15 96 12/19/22 23:00 81 15 96 12/19/22 23:00 140/69 12/19/22 22:50 87 15 95 12/19/22 22:40 86 16 96 12/19/22 22:30 76 17 97 12/19/22 22:30 141/71 H 12/19/22 22:20 75 16 97 12/20/22 01:46 36.6 C 12/20/22 00:01 21 96 1 12/19/22 22:10 77 17 97 12/19/22 22:00 77 17 98 12/19/22 22:00 149/67 H 12/19/22 21:50 76 18 97 12/19/22 21:40 81 18 96 12/19/22 21:30 74 16 94 12/19/22 21:30 128/73 12/19/22 21:20 77 16 95 Laboratory Results 12/20/22 04:47 12/20/22 04:47 Coding Level of Care Code 01118 CRITICAL CARE 1ST 30-74M Diagnoses Hx laparoscopic cholecystectomy Z90.49 SAMMY (acute kidney injury) N17.9 Cholangitis K83.09 Afib I48.91 Acute respiratory failure with hypoxia J96.01 Shock circulatory R57.9 Acute pancreatitis K85.90 Acute pancreatitis complication: unspecified Pancreatitis type: unspecified pancreatitis type Bile leak from gallbladder bed K83.8 Time Spent (min) 38 (7) Acute pancreatitis Acute pancreatitis complication: unspecified Pancreatitis type: unspecified pancreatitis type Qualified Code(s): K85.90 - Acute pancreatitis without n ecrosis or infection, unspecified
[2022-12-20] MEDS: AMIODARONE / D5W 360 MG/200 ML BAG IV SCH ×2 (09:48→20:23)
--- NOTE | 2022-12-20 10:12 | Nephrology Progress Note ---
Date of Service December 20, 2022 Assessment & Plan Admission and Anticipated Discharge Date Admission Date: December 09, 2022 Subjective Assessment & Plan (1) DILIP (acute kidney injury): Plan: baseline creatinine 0.8-went to 8+ and then started dialysis. Sec to ischemic ATN --Sepsis and Contrast. sepsis from pancreatitis/cholecystitis, then compounded by poor renal perfusion w/ ongoing pAF and hypotension for several days . Creat still rising. Dilip: Urine output seems to be much lower which is not good. Creat did go up from yesterday without dialysis so no renal recovery yet. Dialysis--3.5 hrs and take 1.5 kilo off. CVC working better today. No need of renal diet. Good to see WBC trending down. Can do lasix iv 80 mg trial later today around 3PM after dialysis if Her BP is more than 120 Subjective Seen during Dialysis. So far tolerating fine. BP and CVC fine. Urine is very low though. Off and On Afibb with RVR.. Review of Systems Review of Systems: All systems reviewed & are unremarkable except as noted in Subjective Physical Exam Constitutional: well developed and well nourished; no acute distress Eyes: EOM intact bilaterally ENMT: Ears: no external ear abnormality Nose: no external nose abnormality Mouth: + dry oral mucous membranes Neck: no nuchal rigidity Respiratory: normal respiratory effort and + paradoxical thoraco-abdominal movement; no respiratory distress Auscultation: + diminished lung sounds (markedly) Cardiovascular: Rate/Rhythm: regular rate and regular rhythm Extremities: no edema Gastrointestinal (Abdomen): Inspection/Auscultation: normal bowel sounds; + abdomen abnormal to inspection (Right upper quadrant drain) Percussion/Palpation: abdomen soft; abdomen nontender Musculoskeletal: Extremities: + abnormal strength (cannot situp w/o asst; BLE weak) Skin: no rashes, warm and dry Psychiatric: Orientation: alert, oriented x 3, oriented to person and coop erative Results & Data Vital Signs (Past 12 Hours) Vital Signs Temp Pulse Pulse Resp BP Pulse Ox O2 Del Method 12/20/22 09:30 118 H 124/81 12/20/22 09:15 113 H 130/98 12/20/22 09:00 36.6 C 116 H 12/20/22 07:30 150/78 H 12/20/22 07:30 80 23 94 Nasal Cannula 12/20/22 07:00 76 16 94 03 07:00 139/61 12/20/22 06:30 142/63 H 12/20/22 06:30 77 16 95 12/20/22 07:30 Nasal Cannula 12/20/22 06:48 78 03 06:20 73 16 95 03 06:10 73 16 95 12/20/22 06:00 75 16 94 03 06:00 135/73 12/20/22 05:50 73 16 95 03 05:40 74 16 95 12/20/22 05:30 76 17 94 12/20/22 05:30 137/68 12/20/22 05:20 78 17 95 12/20/22 05:10 74 13 94 12/20/22 05:00 77 16 94 12/20/22 05:00 141/64 H 12/20/22 04:50 78 17 95 12/20/22 04:40 78 16 94 12/20/22 04:30 78 16 94 03 04:30 130/80 0323 04:20 109 H 16 94 03 04:10 87 15 94 12/20/22 04:00 75 18 95 03 04:00 134/66 12/20/22 03:50 90 16 94 03/ 03:40 76 16 94 12/20/22 03:30 124 H 17 94 03/ 03:30 136/63 12/20/ 03:20 127 H 17 94 03 03:10 77 17 95 03 03:00 78 16 94 03 03:00 140/65 0323 02:50 78 16 94 03/23 02:40 77 15 94 03/23 02:30 78 17 95 03/23 02:30 148/66 H 23 02:20 78 17 94 03/23 02:10 77 17 94 03/ 02:00 72 16 93 03/23 02:00 123/63 12/20/23 01:50 72 15 94 03/23 01:40 71 15 93 03/23 01:30 73 15 93 03/23 01:30 124/62 12/20/22 01:20 75 16 94 12/20/22 01:10 78 17 95 12/20/22 01:00 79 16 94 12/20/22 01:00 114/64 12/20/22 00:50 71 15 93 12/20/22 00:40 83 15 94 12/20/22 00:30 115 H 17 94 12/20/22 00:30 116/67 12/20/22 00:20 75 18 94 12/20/22 00:10 89 17 96 12/20/22 00:00 75 17 95 12/20/22 00:00 143/65 H 12/19/22 23:50 117 H 17 96 12/19/22 23:40 106 H 17 97 12/19/22 23:30 75 17 95 12/19/22 23:30 114/66 12/19/22 23:20 96 H 16 95 12/19/22 23:10 74 15 96 12/19/22 23:00 81 15 96 12/19/22 23:00 140/69 12/19/22 22:50 87 15 95 12/19/22 22:40 86 16 96 12/19/22 22:30 76 17 97 12/19/22 22:30 141/71 H 12/19/22 22:20 75 16 97 12/20/22 01:46 36.6 C 12/20/22 00:01 21 96 12/19/22 22:10 77 17 97 O2 Flow Rate 12/20/22 09:30 12/20/22 09:15 12/20/22 09:00 12/20/22 07:30 12/20/22 07:30 1 12/20/22 07:00 12/20/22 07:00 12/20/22 06:30 12/20/22 06:30 12/20/22 07:30 1 12/20/22 06:48 12/20/22 06:20 12/20/22 06:10 12/20/22 06:00 12/20/22 06:00 12/20/22 05:50 12/20/22 05:40 12/20/22 05:30 12/20/22 05:30 12/20/22 05:20 12/20/22 05:10 12/20/22 05:00 12/20/22 05:00 12/20/22 04:50 12/20/22 04:40 12/20/22 04:30 12/20/22 04:30 12/20/22 04:20 12/20/22 04:10 12/20/22 04:00 12/20/22 04:00 12/20/22 03:50 12/20/22 03:40 12/20/22 03:30 12/20/22 03:30 12/20/22 03:20 12/20/22 03:10 12/20/22 03:00 12/20/22 03:00 12/20/22 02:50 12/20/22 02:40 12/20/22 02:30 12/20/22 02:30 12/20/22 02:20 12/20/22 02:10 12/20/22 02:00 12/20/22 02:00 12/20/22 01:50 12/20/22 01:40 12/20/22 01:30 12/20/22 01:30 12/20/22 01:20 12/20/22 01:10 12/20/22 01:00 12/20/22 01:00 12/20/22 00:50 12/20/22 00:40 12/20/22 00:30 12/20/22 00:30 12/20/22 00:20 12/20/22 00:10 12/20/22 00:00 12/20/22 00:00 12/19/22 23:50 12/19/22 23:40 12/19/22 23:30 12/19/22 23:30 12/19/22 23:20 12/19/22 23:10 12/19/22 23:00 12/19/22 23:00 12/19/22 22:50 12/19/22 22:40 12/19/22 22:30 12/19/22 22:30 12/19/22 22:20 12/20/22 01:46 12/20/22 00:01 1 12/19/22 22:10
--- NOTE | 2022-12-20 11:56 | Electrocardiogram Report ---
Test Reason : Blood Pressure : / mmHG Vent. Rate : 073 BPM Atrial Rate : 073 BPM P-R Int : 164 ms QRS Dur : 082 ms QT Int : 408 ms P-R-T Axes : 041 -01 032 degrees QTc Int : 449 ms Normal sinus rhythm Nonspecific ST abnormality When compared with ECG of 13-DEC-2022 13:31, Sinus rhythm has replaced Atrial fibrillation Confirmed by Christo Portillo ([id number]) on 12/20/2022 11:55:57 AM Referred By: REFERRED SELF Confirmed By:Steven Portillo
--- NOTE | 2022-12-20 12:09 | Electrocardiogram Report ---
Test Reason : Blood Pressure : / mmHG Vent. Rate : 081 BPM Atrial Rate : 081 BPM P-R Int : 196 ms QRS Dur : 072 ms QT Int : 436 ms P-R-T Axes : 026 008 020 degrees QTc Int : 506 ms Sinus rhythm with premature atrial beats Nonspecific ST abnormality Abnormal ECG When compared with ECG of 19-DEC-2022 14:59, (unconfirmed) QT has lengthened Confirmed by Christo Portillo ([id number]) on 12/20/2022 12:08:47 PM Referred By: REFERRED SELF Confirmed By:Steven Portillo
[2022-12-20] MEDS ORDERED: FUROSEMIDE 40 MG/4 ML VIAL IV ONE (15:00)
[2022-12-20 17:03] LABS: BUN Creatinine Ratio 9.3 (10-20); Calcium 8.1 mg/dl (8.6-10.3); Creatinine Clr Calc Pharmacy 15.7 ml/min; Est GFR (African American) 13.1 ml/min; Est GFR (Non-African American) 11.3 ml/min; Potassium 3.7 mmol/L (3.5-5.1)
--- NOTE | 2022-12-20 17:27 | Cardiology Progress Note ---
Date of Service December 20, 2022 Assessment & Plan (1) Paroxysmal atrial fibrillation: Plan Patient with still episodes of frequent paroxysmal atrial fibrillation though with better rate control on IV amiodarone. QT is becoming prolonged on EKG We will restart low-dose metoprolol succinate at 12.5 mg twice per day ultimate goal transition amiodarone to oral Admission and Anticipated Discharge Date Admission Date: December 09, 2022 Subjective Patient seen this morning and this evening. Still intermittently in atrial fibrillation despite IV Amio. Tolerated dialysis today no current pressors Currently in sinus rhythm with frequent atrial ectopy rates in the 90s Physical Exam Constitutional: + ill appearing and + obese Neck: Dialysis catheter right IJ Respiratory: Auscultation: + diminished lung sounds Cardiovascular: Rate/Rhythm: regular rate and regular rhythm Results & Data Vital Signs (Past 12 Hours) Vital Signs Temp Pulse Pulse Resp BP BP Pulse Ox 12/20/22 16:46 36.6 C 12/20/22 15:00 94 H 18 97 12/20/22 15:00 146/67 H 12/20/22 14:30 96 H 15 99 12/20/22 14:00 97 H 19 95 12/20/22 14:00 142/80 H 12/20/22 15:26 96 H 12/20/22 13:51 91 H 18 12/20/22 13:51 138/67 12/20/22 13:00 97 H 19 98 12/20/22 13:00 133/87 12/20/22 12:30 97 H 19 98 12/20/22 12:30 142/74 H 12/20/22 12:41 36.6 C 99 H 140/73 12/20/22 12:30 93 H 142/74 H 12/20/22 12:00 102 H 132/49 L 12/20/22 11:30 100 H 103/65 12/20/22 11:00 86 140/92 12/20/22 10:30 91 H 130/85 12/20/22 10:00 85 137/77 12/20/22 09:30 118 H 124/81 12/20/22 09:15 113 H 130/98 12/20/22 09:00 36.6 C 116 H 12/20/22 07:30 150/78 H 12/20/22 07:30 80 23 94 12/20/22 07:00 76 16 94 03/22/23 07:00 139/61 12/20/22 06:30 142/63 H 12/20/22 06:30 77 16 95 12/20/22 07:30 12/20/22 06:48 78 12/20/22 06:20 73 16 95 12/20/22 06:10 73 16 95 12/20/22 06:00 75 16 94 12/20/22 06:00 135/73 12/20/22 05:50 73 16 95 12/20/22 05:40 74 16 95 12/20/22 05:30 76 17 94 12/20/22 05:30 137/68 O2 Del Method O2 Flow Rate 12/20/22 16:46 12/20/22 15:00 12/20/22 15:00 12/20/22 14:30 12/20/22 14:00 Nasal Cannula 1 12/20/22 14:00 12/20/22 15:26 12/20/22 13:51 12/20/22 13:51 12/20/22 13:00 Nasal Cannula 1 12/20/22 13:00 12/20/22 12:30 12/20/22 12:30 12/20/22 12:41 12/20/22 12:30 12/20/22 12:00 12/20/22 11:30 12/20/22 11:00 12/20/22 10:30 12/20/22 10:00 12/20/22 09:30 12/20/22 09:15 12/20/22 09:00 12/20/22 07:30 12/20/22 07:30 Nasal Cannula 1 12/20/22 07:00 12/20/22 07:00 12/20/22 06:30 12/20/22 06:30 12/20/22 07:30 Nasal Cannula 1 12/20/22 06:48 12/20/22 06:20 12/20/22 06:10 12/20/22 06:00 12/20/22 06:00 12/20/22 05:50 12/20/22 05:40 12/20/22 05:30 12/20/22 05:30 Laboratory Results Laboratory Results - last 24 hr 03/21/23 03/22/23 03/22/23 20:14 04:47 04:47 WBC 20.03 H RBC 3.52 L Hgb 10.5 L Hct 29.7 L MCV 84.4 MCH 29.8 MCHC 35.4 RDW Std Deviation 46.5 H RDW Coeff of Mandy 15.1 H Plt Count 255 MPV 9.9 Sodium 136 Potassium 3.7 Chloride 99 Carbon Dioxide 20 L Anion Gap 17 H BUN 75 H Creatinine 6.71 H* D Est Cr Clr Drug Dosing 8.8 Est GFR ( Amer) 6.5 Est GFR (Non-Af Amer) 5.6 BUN/Creatinine Ratio 11.2 Glucose 175 H POC Glucose 149 H Calcium 7.9 L Phosphorus 6.4 H Magnesium 2.3 Total Bilirubin 0.9 AST 14 ALT 15 Alkaline Phosphatase 91 Total Protein 5.9 L Albumin 2.4 L Globulin 3.5 Albumin/Globulin Ratio 0.7 L 12/20/22 12/20/22 12/20/22 07:23 11:23 15:46 WBC RBC Hgb Hct MCV MCH MCHC RDW Std Deviation RDW Coeff of Mandy Plt Count MPV Sodium 139 Potassium 3.7 Chloride 101 Carbon Dioxide 24 Anion Gap 14 H BUN 35 H D Creatinine 3.75 H D Est Cr Clr Drug Dosing 15.7 Est GFR ( Amer) 13.1 Est GFR (Non-Af Amer) 11.3 BUN/Creatinine Ratio 9.3 L Glucose 149 H POC Glucose 155 H 143 H Calcium 8.1 L Phosphorus Magnesium Total Bilirubin AST ALT Alkaline Phosphatase Total Protein Albumin Globulin Albumin/Globulin Ratio 12/20/22 16:28 WBC RBC Hgb Hct MCV MCH MCHC RDW Std Deviation RDW Coeff of Mandy Plt Count MPV Sodium Potassium Chloride Carbon Dioxide Anion Gap BUN Creatinine Est Cr Clr Drug Dosing Est GFR ( Amer) Est GFR (Non-Af Amer) BUN/Creatinine Ratio Glucose POC Glucose 153 H Calcium Phosphorus Magnesium Total Bilirubin AST ALT Alkaline Phosphatase Total Protein Albumin Globulin Albumin/Globulin Ratio
[2022-12-20] MEDS: CASPOFUNGIN 50 MG in SODIUM CHLORIDE 0.9% 250 ML IV SCH (17:37)
[2022-12-20] MEDS: POTASSIUM CHLORIDE / WTR 20 MEQ/100 ML PLCT IV SCH ×2 (17:37→19:10)
--- NOTE | 2022-12-20 17:51 | Hospitalist Progress Note ---
Date of Service December 20, 2022 Assessment & Plan (1) Acute pancreatitis: (2) Nausea and vomiting: Plan: Possible related togallstone related pancreatitis Present on admission with abdominal pain that radiating to back associating with vomiting and nausea CT abd/pel showedperipancreatic fat stranding is seen concerning for pancreatitis. Prominence of the gallbladder may be reactive or less likely may represent acute cholecystitis. Abdomen u/s showedgallbladder is distended and full of stones/sludge as detailed above. Findings are suspicious for acute cholecystitis. Lipase above 4000's on admission, Lipase 2960--> then 678-->63 Elevated LFT with AST 313 and ALT 536 S/p Lap chol and ERCPwith sphincterotomy and balloon sweeping of the bile duct for stones and puswith stent placement on 12/10/22 CT abd/P on 12/17/22 noted severe pancreatitis similar to prior study, small amount of perihepatic fluid/small amount of pneumoperitoneum, subhepatic catheter unchanged in position, CBD stent with associated pneumobilia, small b/l pleural effusion, unchanged airspace opacities in the lungs. Septic shock Persistent leukocytosis WBC peaked 30.7, then dropped to 20K today Continue broad spectrum antibiotic with IV Zosyn Blood and urine culture were negative Caspofungin was added, will continue for additional 3 days She has been off pressor since yesterday morning Will follow fungal blood cx MIMI drain fluid culture negative so far Acute cholangitis Transaminitis LFTs normalized. Hgb is 10.5 today Gen surg board S/p Lap chol and ERCPwith sphincterotomy and balloon sweeping of the bile duct for stones and puswith stent placement LFT continue trending down with AST 31, ALT 119 and Alk 104 WBC 22.3 K today Gastro and surgery on board Currently on IV Zosyn Will need repeat ERCP in 2 month for stent removal Acute respiratory failure with hypoxia Likely from dependent atelectasis Continue to encourage incentive spirometry and flutter O2 supplementation to keep oxygen saturation between 88-92% Wean off oxygen as tolerated Paroxysmal Afib Currently on IV amiodarone drip ECHO showed normal LV wall function. EF 65 to 70 % Cardiology on board Heparin drip on hold considering comorbidities: severe pancreatitis/risk of hemorrhagic pancreatitis, recent surgery Continue metoprolol SAMMY Worsening renal function. 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 Hep gtt on hold as above Updated daughter who was at bedside PT/OT I spent a total of 55 minutes coordinating, documenting and providing care for this patient excluding time spent in performance of separately billed services Admission and Anticipated Discharge Date Admission Date: December 09, 2022 Subjective Pt was seen and examined for follow up Lying in bed with no acute distress with daughter at bedside Pt said that she feels a little better today She had dialysis today She has been off pressor since yesterday morning Tele monitor showed intermittent Afib Denies any chest pain, palpitation, dizziness and SOB Review of Systems Review of Systems: All systems reviewed & are unremarkable except as noted in Subjective Physical Exam Physical Exam: General- No acute distress Head- atraumatic Eyes- PERRL, EOMI, ENT- oropharynx clear Neck- supple, no JVD Lungs- +diminished BS Heart- +tachycardia no murmur Abdomen- normal bowel sounds, soft, +tender Extremities- no calf tenderness, +edema Neuro- alert, oriented x 3; PERRL, EOMI; no facial palsy; no dysarthria Skin- warm & dry Results & Data Results & Data Vital Signs (Past 12 Hours) Vital Signs Temp Pulse Pulse Resp BP BP Pulse Ox 12/20/22 16:46 36.6 C 12/20/22 15:00 94 H 18 97 12/20/22 15:00 146/67 H 12/20/22 14:30 96 H 15 99 12/20/22 14:00 97 H 19 95 12/20/22 14:00 142/80 H 12/20/22 15:26 96 H 12/20/22 13:51 91 H 18 12/20/22 13:51 138/67 12/20/22 13:00 97 H 19 98 12/20/22 13:00 133/87 12/20/22 12:30 97 H 19 98 12/20/22 12:30 142/74 H 12/20/22 12:41 36.6 C 99 H 140/73 12/20/22 12:30 93 H 142/74 H 12/20/22 12:00 102 H 132/49 L 12/20/22 11:30 100 H 103/65 12/20/22 11:00 86 140/92 12/20/22 10:30 91 H 130/85 12/20/22 10:00 85 137/77 12/20/22 09:30 118 H 124/81 12/20/22 09:15 113 H 130/98 12/20/22 09:00 36.6 C 116 H 12/20/22 07:30 150/78 H 12/20/22 07:30 80 23 94 12/20/22 07:00 76 16 94 12/20/22 07:00 139/61 12/20/22 06:30 142/63 H 12/20/22 06:30 77 16 95 12/20/22 07:30 12/20/22 06:48 78 12/20/22 06:20 73 16 95 12/20/22 06:10 73 16 95 12/20/22 06:00 75 16 94 12/20/22 06:00 135/73 12/20/22 05:50 73 16 95 O2 Del Method O2 Flow Rate 12/20/22 16:46 12/20/22 15:00 12/20/22 15:00 12/20/22 14:30 12/20/22 14:00 Nasal Cannula 1 12/20/22 14:00 12/20/22 15:26 12/20/22 13:51 12/20/22 13:51 12/20/22 13:00 Nasal Cannula 1 12/20/22 13:00 12/20/22 12:30 12/20/22 12:30 12/20/22 12:41 12/20/22 12:30 12/20/22 12:00 12/20/22 11:30 12/20/22 11:00 12/20/22 10:30 12/20/22 10:00 12/20/22 09:30 12/20/22 09:15 12/20/22 09:00 12/20/22 07:30 12/20/22 07:30 Nasal Cannula 1 12/20/22 07:00 12/20/22 07:00 12/20/22 06:30 12/20/22 06:30 12/20/22 07:30 Nasal Cannula 1 12/20/22 06:48 12/20/22 06:20 12/20/22 06:10 12/20/22 06:00 12/20/22 06:00 12/20/22 05:50 (1) Acute pancreatitis Acute pancreatitis complication: unspecified Pancreatitis type: unspecified pancreatitis type Qualified Code(s): K85.90 - Acute pancreatitis without necrosis or infection, unspecified (2) Nausea and vomiting Vomiting type: unspecified Qualified Code(s): R11.2 - Nausea with vomiting, unspecified
[2022-12-20] MEDS: METOPROLOL SUCC 25MG EXT REL TAB PO SCH (20:22)
[2022-12-21] MEDS: PIPERACILLIN/TAZOBACTAM 4.5 GM in DEXTROSE 5% 100 ML IV SCH ×2 (01:12→14:40)
[2022-12-21 04:43] LABS: Hematocrit (blood only) 30.2 % (37.0-47.0); Hemoglobin 10.3 g/dl (12.0-16.0); Mean Corpuscular Hemoglobin 29.5 pg (25.0-34.0); Mean Corpuscular Hgb Conc 34.1 g/dL (32.0-36.0); Mean Corpuscular Volume 86.5 fL (80.0-100.0); Mean Platelet Volume 9.6 fL (9.4-12.4); Platelet Count 282 K/uL (130-400); RDW Coefficient of Variation 14.9 % (11.5-14.5); RDW Standard Deviation 47.3 fL (36.4-46.3); Red Blood Count 3.49 M/uL (4.20-5.40); White Blood Count 15.95 K/ul (4.8-10.8)
[2022-12-21 05:08] LABS: BUN Creatinine Ratio 9.9 (10-20); Calcium 7.8 mg/dl (8.6-10.3); Est GFR (African American) 10.4 ml/min; Phosphorus 3.9 mg/dl (2.5-4.9); Potassium 3.9 mmol/L (3.5-5.1)
--- NOTE | 2022-12-21 06:39 | Surgery Progress Note ---
Date of Service December 21, 2022 Assessment & Plan (1) Bile leak from gallbladder bed: Plan: 12/21/22 POD#11 lab noted white count trending down Was dialyzed yesterday creatinine this morning noted Still has some urine output clear yellow not concentrated No surgical issues at this time continue following the patient plan to leave the subhepatic drain in at this time POD#9 WBC 20 (29). LFTs WNL. Cr 6.7 Diet as tolerates Continue MIMI drain. no bilious output noted. output is decreasing In ICU for needs for dialysis and management of afib status Pt seen/examined with dr. lawson Admission and Anticipated Discharge Date Admission Date: December 09, 2022 Subjective Voiced that she is very frustrated she feels like she is not getting any better should like to have some of these restricting monitoring wires and IVs out Oral intake was good yesterday according to the patient Physical Exam Physical Exam: She is alert coherent in no acute distress No audible wheezing Abdomen is benign Subhepatic drain dark blood minimal amount no bile staining Results & Data Vital Signs (Past 12 Hours) Vital Signs Temp Pulse Resp BP Pulse Ox O2 Del Method O2 Flow Rate 12/21/22 05:20 83 18 96 12/21/22 05:10 87 19 96 12/21/22 05:01 147/71 H 12/21/22 05:01 84 17 96 12/21/22 05:00 84 14 93 12/21/22 04:50 86 18 96 12/21/22 04:40 85 17 96 12/21/22 04:30 88 20 92 12/21/22 04:30 165/82 H 12/21/22 04:20 90 18 96 12/21/22 04:10 86 18 96 12/21/22 04:00 87 18 94 12/21/22 04:00 154/71 H 12/21/22 03:50 89 15 96 12/21/22 03:40 85 20 96 12/21/22 03:30 88 18 93 12/21/22 03:30 145/63 H 12/21/22 03:20 85 18 96 12/21/22 03:10 87 17 95 12/21/22 03:00 88 20 92 12/21/22 03:00 142/73 H 12/21/22 02:50 88 17 95 12/21/22 02:40 96 H 21 96 12/21/22 02:30 88 19 93 12/21/22 02:30 153/78 H 12/21/22 02:20 89 19 95 12/21/22 02:10 91 H 19 96 12/21/22 02:01 92 H 19 96 03 02:01 147/57 H 12/21/22 02:00 92 H 21 94 12/21/22 01:50 91 H 18 96 12/21/22 01:40 90 19 96 12/21/22 01:31 87 17 96 12/21/22 01:31 142/62 H 12/21/22 01:30 87 18 93 12/21/22 01:20 91 H 18 96 12/21/22 01:10 92 H 21 95 12/21/22 01:00 88 18 93 12/21/22 01:00 151/72 H 12/21/22 00:50 89 18 95 12/21/22 00:40 90 19 96 12/21/22 00:30 90 18 93 12/21/22 00:30 148/67 H 12/21/22 00:20 92 H 18 96 12/21/22 00:10 91 H 19 95 12/21/22 00:00 88 19 93 12/21/22 00:00 150/78 H 12/20/22 23:50 91 H 18 95 12/20/22 23:40 82 15 97 12/20/22 23:31 84 19 96 12/21/22 01:50 36.6 C 12/20/22 21:35 73 23 96 1 12/20/22 22:00 89 18 96 03 22:00 143/109 H 12/20/22 21:50 89 19 96 0323 21:40 88 19 97 0323 21:30 91 H 18 96 0323 21:30 146/82 H 23 21:20 89 18 97 0323 21:10 87 15 96 03 21:00 89 18 96 0323 21:00 160/85 H 23 20:50 88 17 97 0322/23 20:40 90 17 96 0322/23 20:30 88 20 96 032223 20:30 143/87 H 03/22/23 20:20 89 17 96 12/20/22 20:10 88 17 96 12/20/22 20:00 88 16 96 12/20/22 20:00 150/81 H 12/20/22 19:50 87 16 96 12/20/22 19:40 92 H 18 96 12/20/22 19:30 87 16 97 12/20/22 19:30 142/84 H 12/20/22 19:20 89 22 97 12/20/22 19:10 88 17 97 12/20/22 19:00 87 17 96 12/20/22 19:00 144/89 H 12/20/22 18:50 88 17 97 12/20/22 18:40 85 16 96 12/20/22 20:33 36.5 C 12/20/22 19:36 Nasal Cannula 1
[2022-12-21] MEDS: HEPARIN SOD 5,000 UNIT/0.5 ML VIAL SQ SCH ×2 (07:51→19:52)
[2022-12-21] MEDS: FLUTICASONE PROPIONATE NA SPR 16 GM BTL NAE SCH (07:53)
[2022-12-21] MEDS: CALCIUM CARBONATE 1,250 MG/5 ML UDC PO SCH ×2 (07:53→19:51)
[2022-12-21] MEDS: methIMAzole 5 MG TABLET PO SCH (07:55)
[2022-12-21] MEDS: SERTRALINE HCL 50 MG TABLET PO SCH (07:55)
[2022-12-21] MEDS: INSULIN ASPART PER UNIT CHARGE SC SCH ×4 (08:09→19:52)
[2022-12-21] MEDS: DOCUSATE SODIUM/SENNA 50/8.6MG TAB PO SCH ×2 (08:12→19:56)
[2022-12-21] MEDS: METOPROLOL SUCC 25MG EXT REL TAB PO SCH ×2 (08:36→19:53)
[2022-12-21] MEDS: AMIODARONE / D5W 360 MG/200 ML BAG IV SCH (09:12)
--- NOTE | 2022-12-21 09:35 | Nephrology Progress Note ---
Date of Service December 21, 2022 Assessment & Plan (1) SAMMY (acute kidney injury): Plan: baseilne creatinine 0.8; dialysis dependent oligoanuric stage 3 SAMMY ischemic ATN multifactorial initially including IV contrast, poor po intake prior to admission (presenting s.g. on UA > 1045), continued losartan in setting of above (last dose 12/11), sepsis from pancreatitis/cholecystitis, then compounded by poor renal perfusion w/ pAF and hypotension for several days though this instability resolved by December 13 for the most part. ATN did not resolve/worsened w/ ongoing sepsis; first HD 12/18 continue strict I/O and daily bmp to monitor for renal recovery > to date no s ign of it remains oliguric No need for renal diet. 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) but catheter ran very poorly/not at all; had already d/w family that she is likely to need tunnelled dialysis cath on 12/25; consulted vascular and they will place line tomorrow planned tentatively for noon; hospitalist aware Admission and Anticipated Discharge Date Admission Date: December 09, 2022 Subjective had one time lasix 80 mg IV w/ K riders yesterday; also had HD yesterday for 3.5 hrs w/ 2L UF and no pressors; sat on side of bed today; still feeling tired, trying to eat but poor po Review of Systems Review of Systems: All systems reviewed & are unremarkable except as noted in Subjective Physical Exam Constitutional: well developed and well nourished; no acute distress Eyes: EOM intact bilaterally ENMT: Mouth: + dry oral mucous membranes Respiratory: normal respiratory effort; no respiratory distress Auscultation: + diminished lung sounds (markedly) and + crackles (bibasilar) Cardiovascular: Rate/Rhythm: regular rate and regular rhythm Extremities: + edema (trace -1+) Gastrointestinal (Abdomen): Inspection/Auscultation: normal bowel sounds; + abdomen abnormal to inspection (Right upper quadrant drain) Percussion/P alpation: abdomen soft; abdomen nontender Musculoskeletal: Extremities: + abnormal strength (cannot situp w/o asst; BLE weak) Skin: no rashes, warm and dry Psychiatric: Orientation: alert, oriented x 3, oriented to person and cooperative Results & Data Vital Signs (Past 12 Hours) Vital Signs Temp Pulse Resp BP Pulse Ox O2 Del Method O2 Flow Rate 12/21/22 09:00 78 19 93 12/21/22 09:00 156/77 H 12/21/22 08:30 159/90 H 12/21/22 08:30 82 16 95 12/21/22 08:00 81 17 95 12/21/22 08:00 156/81 H 12/21/22 07:30 151/82 H 12/21/22 07:30 85 19 94 12/21/22 07:00 88 20 94 Nasal Cannula 1 12/21/22 07:00 157/95 H 12/21/22 07:31 36.7 C 12/21/22 07:48 Nasal Cannula 1 12/21/22 05:20 83 18 96 12/21/22 05:10 87 19 96 12/21/22 05:01 147/71 H 12/21/22 05:01 84 17 96 12/21/22 05:00 84 14 93 12/21/22 04:50 86 18 96 12/21/22 04:40 85 17 96 12/21/22 04:30 88 20 92 12/21/22 04:30 165/82 H 12/21/22 04:20 90 18 96 12/21/22 04:10 86 18 96 12/21/22 04:00 87 18 94 12/21/22 04:00 154/71 H 12/21/22 03:50 89 15 96 12/21/22 03:40 85 20 96 12/21/22 03:30 88 18 93 12/21/22 03:30 145/63 H 12/21/22 03:20 85 18 96 12/21/22 03:10 87 17 95 12/21/22 03:00 88 20 92 12/21/22 03:00 142/73 H 12/21/22 02:50 88 17 95 12/21/22 02:40 96 H 21 96 12/21/22 02:30 88 19 93 12/21/22 02:30 153/78 H 12/21/22 02:20 89 19 95 12/21/22 02:10 91 H 19 96 12/21/22 02:01 92 H 19 96 12/21/22 02:01 147/57 H 12/21/22 02:00 92 H 21 94 12/21/22 01:50 91 H 18 96 12/21/22 01:40 90 19 96 12/21/22 01:31 87 17 96 12/21/22 01:31 142/62 H 12/21/22 01:30 87 18 93 12/21/22 01:20 91 H 18 96 12/21/22 01:10 92 H 21 95 12/21/22 01:00 88 18 93 12/21/22 01:00 151/72 H 12/21/22 00:50 89 18 95 12/21/22 00:40 90 19 96 12/21/22 00:30 90 18 93 12/21/22 00:30 148/67 H 12/21/22 00:20 92 H 18 96 12/21/22 00:10 91 H 19 95 12/21/22 00:00 88 19 93 12/21/22 00:00 150/78 H 12/20/22 23:50 91 H 18 95 12/20/22 23:40 82 15 97 12/20/22 23:31 84 19 96 12/21/22 01:50 36.6 C 12/20/22 21:35 73 23 96 1 12/20/22 22:00 89 18 96 12/20/22 22:00 143/109 H 12/20/22 21:50 89 19 96 12/20/22 21:40 88 19 97 Laboratory Results 12/21/22 04:26 12/21/22 04:26
[2022-12-21] MEDS ORDERED: SODIUM CHLORIDE 0.9% 1000ML 1,000 ML IV PRN (12:56)
[2022-12-21] MEDS ORDERED: HEPARIN SOD (PORCINE) 1000 UNIT/ML IV SCH (13:00)
--- NOTE | 2022-12-21 13:04 | Cardiology Progress Note ---
Date of Service December 21, 2022 Assessment & Plan (1) Paroxysmal atrial fibrillation: (2) SAMMY (acute kidney injury): Plan Patient hemodynamically is improving. Dialysis completed yesterday. No further atrial arrhythmias Plan: Discontinue IV amiodarone. Begin amiodarone 200 mg p.o. twice per day. Increase metoprolol succinate to 25 mg twice per day Goal keep potassium approximately 4 or greater EKG a.m. Admission and Anticipated Discharge Date Admission Date: December 09, 2022 Subjective Patient seen and examined, chart, medications, telemetry reviewed. No atrial fibrillation since yesterday, dialysis completed Feels weak and fatigued but no acute complaints. Blood pressure much improved Review of Systems Review of Systems: All systems reviewed & are unremarkable except as noted in Subjective Physical Exam Constitutional: + ill appearing; no acute distress Eyes: PERRL, conjunctivae normal, anicteric sclerae Neck: trachea midline, no thyromegaly Respiratory: Auscultation: + diminished lung sounds Cardiovascular: Rate/Rhythm: regular rate and regular rhythm Vessels: no JVD Extremities: + edema (Trace) Results & Data Vital Signs (Past 12 Hours) Vital Signs Temp Pulse Resp BP Pulse Ox O2 Del Method O2 Flow Rate 12/21/22 09:00 78 19 93 12/21/22 09:00 156/77 H 12/21/22 08:30 159/90 H 12/21/22 08:30 82 16 95 12/21/22 08:00 81 17 95 12/21/22 08:00 156/81 H 12/21/22 07:30 151/82 H 12/21/22 07:30 85 19 94 12/21/22 07:00 88 20 94 Nasal Cannula 1 12/21/22 07:00 157/95 H 12/21/22 07:31 36.7 C 12/21/22 07:48 Nasal Cannula 1 12/21/22 05:20 83 18 96 12/21/22 05:10 87 19 96 12/21/22 05:01 147/71 H 12/21/22 05:01 84 17 96 12/21/22 05:00 84 14 93 12/21/22 04:50 86 18 96 12/21/22 04:40 85 17 96 12/21/22 04:30 88 20 92 12/21/22 04:30 165/82 H 12/21/22 04:20 90 18 96 12/21/22 04:10 86 18 96 12/21/22 04:00 87 18 94 12/21/22 04:00 154/71 H 12/21/22 03:50 89 15 96 12/21/22 03:40 85 20 96 12/21/22 03:30 88 18 93 12/21/22 03:30 145/63 H 12/21/22 03:20 85 18 96 12/21/22 03:10 87 17 95 12/21/22 03:00 88 20 92 12/21/22 03:00 142/73 H 12/21/22 02:50 88 17 95 12/21/22 02:40 96 H 21 96 12/21/22 02:30 88 19 93 12/21/22 02:30 153/78 H 12/21/22 02:20 89 19 95 12/21/22 02:10 91 H 19 96 12/21/22 02:01 92 H 19 96 12/21/22 02:01 147/57 H 12/21/22 02:00 92 H 21 94 12/21/22 01:50 91 H 18 96 12/21/22 01:40 90 19 96 12/21/22 01:31 87 17 96 12/21/22 01:31 142/62 H 12/21/22 01:30 87 18 93 12/21/22 01:20 91 H 18 96 12/21/22 01:10 92 H 21 95 12/21/22 01:50 36.6 C Laboratory Results Laboratory Results - last 24 hr 12/20/22 12/20/22 12/20/22 15:46 16:28 20:07 WBC RBC Hgb Hct MCV MCH MCHC RDW Std Deviation RDW Coeff of Mandy Plt Count MPV Sodium 139 Potassium 3.7 Chloride 101 Carbon Dioxide 24 Anion Gap 14 H BUN 35 H D Creatinine 3.75 H D Est Cr Clr Drug Dosing 15.7 Est GFR ( Amer) 13.1 Est GFR (Non-Af Amer) 11.3 BUN/Creatinine Ratio 9.3 L Glucose 149 H POC Glucose 153 H 164 H Calcium 8.1 L Phosphorus Magnesium 12/21/22 12/21/22 12/21/22 04:26 04:26 07:27 WBC 15.95 H RBC 3.49 L Hgb 10.3 L Hct 30.2 L MCV 86.5 MCH 29.5 MCHC 34.1 RDW Std Deviation 47.3 H RDW Coeff of Mandy 14.9 H Plt Count 282 MPV 9.6 Sodium 137 Potassium 3.9 Chloride 101 Carbon Dioxide 24 Anion Gap 12 H BUN 45 H Creatinine 4.53 H* D Est Cr Clr Drug Dosing 13.0 Est GFR ( Amer) 10.4 Est GFR (Non-Af Amer) 9.0 BUN/Creatinine Ratio 9.9 L Glucose 182 H POC Glucose 161 H Calcium 7.8 L Phosphorus 3.9 D Magnesium 2.0 12/21/22 11:23 WBC RBC Hgb Hct MCV MCH MCHC RDW Std Deviation RDW Coeff of Mandy Plt Count MPV Sodium Potassium Chloride Carbon Dioxide Anion Gap BUN Creatinine Est Cr Clr Drug Dosing Est GFR ( Amer) Est GFR (Non-Af Amer) BUN/Creatinine Ratio Glucose POC Glucose 154 H Calcium Phosphorus Magnesium
--- NOTE | 2022-12-21 16:54 | Hospitalist Progress Note ---
Date of Service December 21, 2022 Assessment & Plan (1) Acute pancreatitis: (2) Nausea and vomiting: Plan: Possible related togallstone related pancreatitis Present on admission with abdominal pain that radiating to back associating with vomiting and nausea CT abd/pel showedperipancreatic fat stranding is seen concerning for pancreatitis. Prominence of the gallbladder may be reactive or less likely may represent acute cholecystitis. Abdomen u/s showedgallbladder is distended and full of stones/sludge as detailed above. Findings are suspicious for acute cholecystitis. Lipase above 4000's on admission, Lipase 2960--> then 678-->63 Elevated LFT with AST 313 and ALT 536 S/p Lap chol and ERCPwith sphincterotomy and balloon sweeping of the bile duct for stones and puswith stent placement on 12/10/22 CT abd/P on 12/17/22 noted severe pancreatitis similar to prior study, small amount of perihepatic fluid/small amount of pneumoperitoneum, subhepatic catheter unchanged in position, CBD stent with associated pneumobilia, small b/l pleural effusion, unchanged airspace opacities in the lungs. Septic shock Persistent leukocytosis WBC peaked 30.7, then continue to drop to 15K today Continue broad spectrum antibiotic with IV Zosyn and caspofungin Blood and urine culture were negative She has been off pressor since yesterday morning Will follow fungal blood cx MIMI drain fluid culture negative so far Acute cholangitis Transaminitis LFTs normalized. Hgb is 10.5 today Gen surg board S/p Lap chol and ERCPwith sphincterotomy and balloon sweeping of the bile duct for stones and puswith stent placement LFT continue trending down with AST 31, ALT 119 and Alk 104 WBC 22.3 K today Gastro and surgery on board Currently on IV Zosyn Will need repeat ERCP in 2 month for stent removal Acute respiratory failure with hypoxia Likely from dependent atelectasis Continue to encourage incentive spirometry and flutter O2 supplementation to keep oxygen saturation between 88-92% Wean off oxygen as tolerated Paroxysmal Afib Currently on IV amiodarone drip ECHO showed normal LV wall function. EF 65 to 70 % Cardiology on board Heparin drip on hold considering comorbidities: severe pancreatitis/risk of hemorrhagic pancreatitis, recent surgery Continue metoprolol SAMMY Worsening renal function. 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 Vascular sugery consult- Plan for tunelled cath tomorrow Will make NPO after midnight Avoid nephrotoxic agents Prediabetes Recent Hba1c 6.1 on 12/10/22 Continue monitor BS Hypertension Currently hypotensive as above Antihypertensives on hold Continue monitor BP Hyperthyroidism Continue Methimazole Anxiety Continue Sertraline Code status full code DVT px SCD. Hep gtt on hold as above Updated daughter who was at bedside PT/OT I spent a total of 55 minutes coordinating, documenting and providing care for this patient excluding time spent in performance of separately billed services Admission and Anticipated Discharge Date Admission Date: December 09, 2022 Subjective Pt was seen and examined for follow up Lying in bed with no acute distress with daughter and sister at bedside Denies any chest pain, palpitation, dizziness and SOB Review of Systems Review of Systems: All systems reviewed & are unremarkable except as noted in Subjective Physical Exam Physical Exam: General- No acute distress Head- atraumatic Eyes- PERRL, EOMI, ENT- oropharynx clear Neck- supple, no JVD Lungs- +diminished BS Heart- Regular, no murmur Abdomen- normal bowel sounds, soft, +tender Extremities- no calf tenderness, +edema Neuro- alert, oriented x 3; PERRL, EOMI; no facial palsy; no dysarthria Skin- warm & dry Results & Data Results & Data Vital Signs (Past 12 Hours) Vital Signs Temp Pulse Resp BP Pulse Ox O2 Del Method O2 Flow Rate 12/21/22 14:03 76 17 96 12/21/22 14:03 170/81 H 12/21/22 14:00 77 19 96 12/21/22 14:00 179/83 H 12/21/22 13:30 78 17 96 12/21/22 13:30 173/82 H 12/21/22 13:00 78 16 96 12/21/22 13:00 178/85 H 12/21/22 12:30 176/92 H 12/21/22 12:30 79 20 96 12/21/22 12:00 80 15 97 12/21/22 12:00 162/87 H 12/21/22 11:30 173/79 H 12/21/22 11:30 80 16 95 12/21/22 11:01 151/81 H 12/21/22 11:01 82 20 97 12/21/22 10:30 79 22 96 12/21/22 10:30 156/94 H 12/21/22 10:01 156/84 H 12/21/22 10:01 87 15 94 12/21/22 10:00 90 22 95 12/21/22 09:30 146/88 H 12/21/22 09:30 79 16 94 12/21/22 12:19 36.9 C 12/21/22 09:00 78 19 93 12/21/22 09:00 156/77 H 12/21/22 08:30 159/90 H 12/21/22 08:30 82 16 95 12/21/22 08:00 81 17 95 12/21/22 08:00 156/81 H 12/21/22 07:30 151/82 H 12/21/22 07:30 85 19 94 12/21/22 07:00 88 20 94 Nasal Cannula 1 12/21/22 07:00 157/95 H 12/21/22 07:31 36.7 C 12/21/22 07:48 Nasal Cannula 1 12/21/22 05:20 83 18 96 12/21/22 05:10 87 19 96 12/21/22 05:01 147/71 H 12/21/22 05:01 84 17 96 12/21/22 05:00 84 14 93 (1) Acute pancreatitis Acute pancreatitis complication: unspecified Pancreatitis type: unspecified pancreatitis type Qualified Code(s): K85.90 - Acute pancreatitis without necrosis or infection, unspecified (2) Nausea and vomiting Vomiting type: unspecified Qualified Code(s): R11.2 - Nausea with vomiting, unspecified
[2022-12-21] MEDS: hydrALAZINE HCL 20 MG/ML VIAL IV PRN ×2 (17:18→19:57)
[2022-12-21] MEDS: CASPOFUNGIN 50 MG in SODIUM CHLORIDE 0.9% 250 ML IV SCH (17:23)
[2022-12-21] MEDS: AMIODARONE 200 MG TAB PO SCH (19:50)
[2022-12-21] MEDS: CETIRIZINE HCL 10 MG TABLET PO SCH (19:51)
[2022-12-22] MEDS: PIPERACILLIN/TAZOBACTAM 4.5 GM in DEXTROSE 5% 100 ML IV SCH (01:26)
[2022-12-22] MEDS: HYDROmorphone INJ 0.5 MG/0.5 ML SYR IV PRN (02:27)
[2022-12-22 05:04] LABS: Hematocrit (blood only) 30.8 % (37.0-47.0); Hemoglobin 10.5 g/dl (12.0-16.0); Mean Corpuscular Hemoglobin 29.1 pg (25.0-34.0); Mean Corpuscular Hgb Conc 34.1 g/dL (32.0-36.0); Mean Corpuscular Volume 85.3 fL (80.0-100.0); Mean Platelet Volume 9.5 fL (9.4-12.4); Platelet Count 315 K/uL (130-400); RDW Standard Deviation 46.9 fL (36.4-46.3); Red Blood Count 3.61 M/uL (4.20-5.40)
[2022-12-22 05:41] LABS: BUN Creatinine Ratio 10.3 (10-20); Calcium 7.9 mg/dl (8.6-10.3); Creatinine Clr Calc Pharmacy 10.7 ml/min; Est GFR (Non-African American) 6.9 ml/min; Potassium 4.1 mmol/L (3.5-5.1)
[2022-12-22] MEDS: INSULIN ASPART PER UNIT CHARGE SC SCH ×3 (08:51→21:15)
[2022-12-22] MEDS: FLUTICASONE PROPIONATE NA SPR 16 GM BTL NAE SCH (09:00)
--- NOTE | 2022-12-22 09:44 | Consultation ---
Date of Consultation December 22, 2022 Assessment & Plan (1) SAMMY (acute kidney injury): Pt currently with R IJ temporary HD line present, but not functioning well. Permcath requested by nephrology and planned for later today. Procedure discussed with pt, however, she is mildly confused. Will discuss with her Stacey scales. History of Present Illness Reason for Consultation: SAMMY, need permcath for HD Attending Physician: Nitza Goldsmith MD History of Present Illness 72 yo f with hx of HTN, depression, hyperthyroidism, admitted 2 weeks ago with acute pancreatitis and cholecystitis, seen in consultation today for permcath insertion for HD. Pt underwent ERCP and cholecystectomy during admission, but has continued to have pancreatitis. Developed A fib postop and with acute renal failure as well. Began HD through temporary line a few days ago, but this is no longer functioning well and she has not had good renal recovery. Pt admits fatigue/malaise, and confusion. Denies RICE, fever, chest pain, SOB, abd pain, N/V, rest pain, claudication, other complaints. Allergies Allergy/AdvReac Type Severity Reaction Status Date / Time No Known Allergies Allergy Unverified 04/26/12 15:09 Home Medications Medication Instructions Recorded Confirmed Type losartan 50 mg tablet 50 mg PO DAILY 12/09/22 12/09/22 History methimazole 5 mg tablet 5 mg PO DAILY 12/09/22 12/09/22 History sertraline 50 mg tablet 50 mg PO DAILY 12/09/22 12/09/22 History solifenacin 10 mg tablet 10 mg PO DAILY 12/09/22 12/09/22 History Patient History Medical History Ambulatory dysfunction d/t MS Depression History of claustrophobia Hypertension Multiple sclerosis Surgical History Hx laparoscopic cholecystectomy (12/10/22) Laparoscopic cholecystectomy with extensive lysis of adhesions, please add modifier for extensive difficulty and increased length of the procedure. Social History Smoking Status: Former smoker Second Hand Exposure: No; Hx Alcohol Use: No Hx Substance Use: No Preferred Language: Latvian Communication Ability: Effective Oil Analyst Required: No Beliefs That Will Affect Care: None marital status: Single Current Living Situation: Significant Other current occupational status: retired Feels Safe at Home: Yes Assistive Devices: Scooter/Electric Scooter, Walker, Wheelchair and Other Review of Systems Review of Systems: All systems reviewed & are unremarkable except as noted in HPI & below (poor historian) Physical Exam Constitutional: WD/WN, vitals as above + obese, cooperative and comfortable; not in distress ENMT: Ears: no hearing impairment Neck: trachea midline R neck temp HD line noted Respiratory: normal respiratory effort Auscultation: lungs clear to auscultation bilaterally and + diminished lung sounds Cardiovascular: Rate/Rhythm: + irregularly irregular Vessels: posterior tibial pulses present, dorsalis pedis pulses present and radial pulses present; + abnormal peripheral pulses Extremities: normal capillary refill and + edema Gastrointestinal (Abdomen): Inspection/Auscultation: abdomen normal to inspection (drain noted, surgical incision) and normal bowel sounds Percussion/Palpation: + abdomen tender (mild RUQ) and abdomen soft Musculoskeletal: no cyanosis or clubbing, extremities motor strength 5/5 Skin: no rashes, warm and dry Neurologic: moves all extremities, awake and + confused; no focal motor deficits Psychiatric: Orientation: alert, oriented to person and oriented to place; + not oriented to time Eye Contact: + fair eye contact Affect: + depressed affect Results & Data Vital Signs (Past 12 Hours) Vital Signs Temp Pulse Resp BP Pulse Ox O2 Del Method O2 Flow Rate 12/22/22 04:00 92 H 18 12/22/22 04:00 138/79 12/22/22 03:00 99 H 17 12/22/22 03:00 153/66 H 12/22/22 02:00 101 H 23 12/22/22 02:00 159/83 H 12/22/22 01:00 164/85 H 12/22/22 01:00 106 H 23 92 Nasal Cannula 1 12/22/22 00:00 102 H 18 12/22/22 00:00 147/90 H 12/21/22 23:00 155/75 H 12/21/22 23:00 111 H 21 12/22/22 05:20 36.8 C 12/22/22 01:45 111 H 12/21/22 22:00 111 H 22 12/21/22 22:00 158/81 H 12/21/22 22:36 Nasal Cannula 1 12/21/22 22:35 36.7 C
[2022-12-22] MEDS: AMIODARONE 200 MG TAB PO SCH ×2 (09:54→20:51)
[2022-12-22] MEDS: SERTRALINE HCL 50 MG TABLET PO SCH (09:54)
[2022-12-22] MEDS: methIMAzole 5 MG TABLET PO SCH (09:54)
[2022-12-22] MEDS: METOPROLOL SUCC 25MG EXT REL TAB PO SCH ×2 (09:55→21:45)
--- NOTE | 2022-12-22 11:31 | Electrocardiogram Report ---
Test Reason : Blood Pressure : / mmHG Vent. Rate : 091 BPM Atrial Rate : 091 BPM P-R Int : 142 ms QRS Dur : 082 ms QT Int : 392 ms P-R-T Axes : 022 001 017 degrees QTc Int : 482 ms Normal sinus rhythm Possible Left atrial enlargement When compared with ECG of 20-DEC-2022 06:33, No significant change was found Confirmed by Christo Portillo ([id number]) on 12/22/2022 11:30:39 AM Referred By: REFERRED SELF Confirmed By:Steven Portillo
--- NOTE | 2022-12-22 11:45 | Cardiology Progress Note ---
Date of Service December 22, 2022 Assessment & Plan (1) Paroxysmal atrial fibrillation: (2) SAMMY (acute kidney injury): Plan Patient hemodynamically is improving. Dialysis completed yesterday. No further atrial arrhythmias Plan: Discontinue IV amiodarone. Begin amiodarone 200 mg p.o. twice per day. Increase metoprolol succinate to 25 mg twice per day Goal keep potassium approximately 4 or greater EKG a.m. Admission and Anticipated Discharge Date Admission Date: December 09, 2022 Subjective Patient was seen and examined, chart, medications, telemetry reviewed. No further atrial fibrillation past 24 hours. Off of IV amiodarone. Heart rate still trending 90s blood pressure much improved. Anticipates permacath placement and possible dialysis later Physical Exam Constitutional: + ill appearing and + obese; no acute distress Eyes: PERRL, conjunctivae normal, anicteric sclerae Neck: trachea midline, no thyromegaly Respiratory: Auscultation: + diminished lung sounds Cardiovascular: Rate/Rhythm: regular rate and regular rhythm Heart Sounds: normal S1 and normal S2 Vessels: no JVD Extremities: + edema (Trace) Gastrointestinal (Abdomen): Percussion/Palpation: abdomen soft Results & Data Vital Signs (Past 12 Hours) Vital Signs Temp Pulse Resp BP Pulse Ox O2 Del Method O2 Flow Rate 12/22/22 09:00 91 H 23 93 12/22/22 09:00 162/91 H 12/22/22 08:00 89 36 H 94 12/22/22 07:00 86 17 94 12/22/22 06:00 86 16 93 12/22/22 06:00 152/74 H 12/22/22 05:00 91 H 16 93 12/22/22 04:00 92 H 18 12/22/22 04:00 138/79 12/22/22 03:00 99 H 17 12/22/22 03:00 153/66 H 12/22/22 02:00 101 H 23 12/22/22 02:00 159/83 H 12/22/22 01:00 164/85 H 12/22/22 01:00 106 H 23 92 Nasal Cannula 1 12/22/22 00:00 102 H 18 12/22/22 00:00 147/90 H 12/22/22 05:20 36.8 C 12/22/22 01:45 111 H Laboratory Results Laboratory Results - last 24 hr 12/21/22 12/21/22 12/22/22 16:29 19:45 04:47 WBC 15.50 H RBC 3.61 L Hgb 10.5 L Hct 30.8 L MCV 85.3 MCH 29.1 MCHC 34.1 RDW Std Deviation 46.9 H RDW Coeff of Mandy 15.0 H Plt Count 315 MPV 9.5 Sodium Potassium Chloride Carbon Dioxide Anion Gap BUN Creatinine Est Cr Clr Drug Dosing Est GFR ( Amer) Est GFR (Non-Af Amer) BUN/Creatinine Ratio Glucose POC Glucose 165 H 131 H Calcium 12/22/22 12/22/22 12/22/22 04:47 07:29 11:42 WBC RBC Hgb Hct MCV MCH MCHC RDW Std Deviation RDW Coeff of Mandy Plt Count MPV Sodium 137 Potassium 4.1 Chloride 101 Carbon Dioxide 22 Anion Gap 14 H BUN 58 H Creatinine 5.61 H* D Est Cr Clr Drug Dosing 10.7 Est GFR ( Amer) 8.0 Est GFR (Non-Af Amer) 6.9 BUN/Creatinine Ratio 10.3 Glucose 170 H POC Glucose 177 H 124 H Calcium 7.9 L
[2022-12-22] MEDS ORDERED: LIDOCAINE 1% LOCAL 20 ML VIAL ONE (12:40)
[2022-12-22] MEDS ORDERED: HEPARIN SOD (PORCINE) 5,000 UNITS/ML VIAL ONE (12:40)
[2022-12-22] MEDS ORDERED: fentaNYL citrate PF 100 MCG/2 ML VIAL ONE (12:40)
[2022-12-22] MEDS ORDERED: MIDAZOLAM HCL 1 MG/ML 2ML VIAL ONE (12:40)
--- NOTE | 2022-12-22 12:52 | History & Physical Bridge Note ---
Date of Service December 22, 2022 History & Physical Bridge Note I have examined the patient, reviewed the History & Physical and in the interval since the performance of the History & Physical I have noted the following changes of clinical significance: no changes noted
--- NOTE | 2022-12-22 12:53 | Pre Anesthesia Assessment ---
Date of Service December 22, 2022 Pre Sedation Assessment Vital Signs Temp Pulse Pulse Resp BP BP Pulse Ox 12/22/22 12:28 36.5 C 89 18 156/103 H 93 12/22/22 09:00 91 H 23 93 12/22/22 09:00 162/91 H 12/22/22 08:00 89 36 H 94 12/22/22 07:00 86 17 94 12/22/22 06:00 86 16 93 12/22/22 06:00 152/74 H 12/22/22 05:00 91 H 16 93 12/22/22 04:00 92 H 18 12/22/22 04:00 138/79 12/22/22 03:00 99 H 17 12/22/22 03:00 153/66 H 12/22/22 02:00 101 H 23 12/22/22 02:00 159/83 H 12/22/22 01:00 164/85 H 12/22/22 01:00 106 H 23 92 12/22/22 00:00 102 H 18 12/22/22 00:00 147/90 H 12/21/22 23:00 155/75 H 12/21/22 23:00 111 H 21 12/22/22 05:20 36.8 C 12/22/22 01:45 111 H 12/21/22 22:00 111 H 22 12/21/22 22:00 158/81 H 12/21/22 21:00 137 H 32 H 12/21/22 21:00 166/69 H 12/21/22 20:01 99 H 20 95 12/21/22 20:01 164/86 H 12/21/22 20:00 100 H 21 12/21/22 19:46 98 H 19 95 12/21/22 19:46 179/101 H 12/21/22 19:00 91 H 19 94 12/21/22 19:00 173/91 H 12/21/22 22:36 12/21/22 22:35 36.7 C 12/21/22 18:00 91 H 23 12/21/22 18:00 158/91 H 12/21/22 17:06 82 19 96 12/21/22 17:06 177/89 H 12/21/22 17:00 85 19 95 12/21/22 17:00 183/90 H 12/21/22 16:30 167/82 H 12/21/22 16:30 85 16 95 12/21/22 16:00 81 17 95 12/21/22 16:00 166/82 H 12/21/22 15:30 172/87 H 12/21/22 15:30 83 18 96 12/21/22 15:00 81 17 96 12/21/22 15:00 173/91 H 12/21/22 14:30 178/86 H 12/21/22 14:30 84 18 95 12/21/22 14:03 76 17 96 12/21/22 14:03 170/81 H 12/21/22 14:00 77 19 96 12/21/22 14:00 179/83 H 12/21/22 13:30 78 17 96 12/21/22 13:30 173/82 H 12/21/22 13:00 78 16 96 12/21/22 13:00 178/85 H O2 Del Method O2 Flow Rate 12/22/22 12:28 Room Air 12/22/22 09:00 12/22/22 09:00 12/22/22 08:00 12/22/22 07:00 12/22/22 06:00 12/22/22 06:00 12/22/22 05:00 12/22/22 04:00 12/22/22 04:00 12/22/22 03:00 12/22/22 03:00 12/22/22 02:00 12/22/22 02:00 12/22/22 01:00 12/22/22 01:00 Nasal Cannula 1 12/22/22 00:00 12/22/22 00:00 12/21/22 23:00 12/21/22 23:00 12/22/22 05:20 12/22/22 01:45 12/21/22 22:00 12/21/22 22:00 12/21/22 21:00 12/21/22 21:00 12/21/22 20:01 12/21/22 20:01 12/21/22 20:00 Nasal Cannula 1 12/21/22 19:46 12/21/22 19:46 12/21/22 19:00 12/21/22 19:00 12/21/22 22:36 Nasal Cannula 1 12/21/22 22:35 12/21/22 18:00 12/21/22 18:00 12/21/22 17:06 12/21/22 17:06 12/21/22 17:00 12/21/22 17:00 12/21/22 16:30 12/21/22 16:30 12/21/22 16:00 12/21/22 16:00 12/21/22 15:30 12/21/22 15:30 12/21/22 15:00 12/21/22 15:00 12/21/22 14:30 12/21/22 14:30 12/21/22 14:03 12/21/22 14:03 12/21/22 14:00 12/21/22 14:00 12/21/22 13:30 12/21/22 13:30 12/21/22 13:00 12/21/22 13:00 Cardiovascular RRR, no murmur, no edema Respiratory normal respiratory effort, lungs clear to auscultation Pre-Sedation Airway Assessment Smoking Status: Former smoker Hx Sleep Apnea: No Short, Thick Neck: Yes Thyromental Distance: < 3.5 Finger Breadths Oral Cavity: + WNL Mallampati Class: III ASA: ASA3 NPO Status Date of Last Intake of Fluids: 12/21/22 Time of Last Intake of Fluids: 20:00 Date of Last Intake of Solid Food: 12/21/22 Time of Last Intake of Solid Foods: 16:00 Procedure Planning Contraindications for Sedation: none Current Medications Reviewed: Yes Notes The planned sedation has been discussed with the patient. Informed Consent was obtained. I have identified the patient, determined the appropriateness of sedation and have assessed the patient immediately prior to the procedure. All medicine(s) and interventions are by my order.
[2022-12-22] MEDS: DOCUSATE SODIUM/SENNA 50/8.6MG TAB PO SCH ×2 (13:23→21:56)
[2022-12-22] MEDS: CALCIUM CARBONATE 1,250 MG/5 ML UDC PO SCH ×2 (13:23→20:51)
[2022-12-22] MEDS: HEPARIN SOD 5,000 UNIT/0.5 ML VIAL SQ SCH ×2 (13:23→20:51)
--- NOTE | 2022-12-22 13:54 | Operative Report ---
Post Operative Report Pre & Post Diagnosis Operation Date: 12/22/22 13:00 Pre-Op Diagnosis: Acute Kidney Injury Post-Op Diagnosis: Acute Kidney Injury I identified the patient and participated in the time-out.: Yes Procedure Operation Date: 12/22/22 13:00 Actual Procedures p Perm Catheter Placement Right Jugular Vein Approach, Ultrasound Localization of Right Jugular Vein, Fluoroscopy for Positioning, Moderate Sedation 1322- 1352(Right), Removal of non tunneled diaysis catheter- Greg Tamayo MD Surgeon Greg Tamayo MD Lab Support Tech None Estimated Blood Loss 20 Findings Consistent with Post-Op Diagnosis Specimens none Anesthesia Type RN Sedation Complications none Disposition Accompanied Patient To Recovery: No Disposition: Recovery Room Indications This is a 72-year-old female who has acute kidney injury. She is on dialysis via temporary catheter. Removal of the temporary and insertion of a PermCath were recommended. I have discussed the risks options and benefits of the procedure with the patient's daughter and life partner. The patient's daughter and life partner both understand the risks options and benefits and agrees to the procedure. Description of Procedure Patient was taken to the angio suite and placed in the supine position. The patient was identified and a timeout was performed. The right side of the neck and chest wall were prepped and draped in a sterile manner. Local anesthesia was then administered to the appropriate areas of the neck and chest wall. Ultrasound was then used to locate the right internal jugular vein. The vein compressed easily, had no filing defects, and was patent. The vein was then punctured under direct ultrasound imaging. A guidewire was then passed centrally under fluoroscopic imaging. A stab wound was then made in the anterior chest wall and a 19 cm permcath was passed from the stab wound on the chest wall to the puncture site on the neck. The puncture site was then dilated till the 14Fr peel away sheath was inserted. The permcath was then inserted through the sheath to a central position in the distal superior vena cava. The peel away sheath was then removed. The catheter was then sutured in place using nylon sutures. The puncture was then closed using a 4-0 Vicryl subcuticular suture. Dermabond was used for a dressing on the puncture site. Both ports aspirated and flushed easily and were then packed with heparin. A sterile dressing was applied to the catheter. The patient left the operation room in satisfactory condition and tolerated the procedure well. All needle and sponge counts were correct at the end of the procedure. I attest to the content of the Intraoperative Record and any orders documented t herein. Any exceptions are noted below.
--- NOTE | 2022-12-22 13:55 | Post Anesthesia Assessment ---
Date of Service December 22, 2022 Post Sedation Assessment Vital Signs Temp Pulse Pulse Resp BP BP Pulse Ox 12/22/22 13:52 87 18 177/85 H 97 12/22/22 13:42 87 18 181/95 H 100 12/22/22 13:37 96 H 18 165/95 H 100 12/22/22 13:32 86 18 181/92 H 100 12/22/22 13:27 87 18 175/92 H 100 12/22/22 13:22 86 16 174/87 H 100 12/22/22 13:47 87 18 183/88 H 100 12/22/22 13:18 88 16 185/80 H 100 12/22/22 12:00 89 19 167/88 H 92 12/22/22 12:28 36.5 C 89 18 156/103 H 93 12/22/22 09:00 91 H 23 93 12/22/22 09:00 162/91 H 12/22/22 08:00 89 36 H 94 12/22/22 07:00 86 17 94 12/22/22 06:00 86 16 93 12/22/22 06:00 152/74 H 12/22/22 05:00 91 H 16 93 12/22/22 04:00 92 H 18 12/22/22 04:00 138/79 12/22/22 03:00 99 H 17 12/22/22 03:00 153/66 H 12/22/22 02:00 101 H 23 12/22/22 02:00 159/83 H 12/22/22 01:00 164/85 H 12/22/22 01:00 106 H 23 92 12/22/22 00:00 102 H 18 12/22/22 00:00 147/90 H 12/21/22 23:00 155/75 H 12/21/22 23:00 111 H 21 12/22/22 05:20 36.8 C 12/22/22 01:45 111 H 12/21/22 22:00 111 H 22 12/21/22 22:00 158/81 H 12/21/22 21:00 137 H 32 H 12/21/22 21:00 166/69 H 12/21/22 20:01 99 H 20 95 12/21/22 20:01 164/86 H 12/21/22 20:00 100 H 21 12/21/22 19:46 98 H 19 95 12/21/22 19:46 179/101 H 12/21/22 19:00 91 H 19 94 12/21/22 19:00 173/91 H 12/21/22 22:36 12/21/22 22:35 36.7 C 12/21/22 18:00 91 H 23 12/21/22 18:00 158/91 H 12/21/22 17:06 82 19 96 12/21/22 17:06 177/89 H 12/21/22 17:00 85 19 95 12/21/22 17:00 183/90 H 12/21/22 16:30 167/82 H 12/21/22 16:30 85 16 95 12/21/22 16:00 81 17 95 12/21/22 16:00 166/82 H 12/21/22 15:30 172/87 H 12/21/22 15:30 83 18 96 12/21/22 15:00 81 17 96 12/21/22 15:00 173/91 H 12/21/22 14:30 178/86 H 12/21/22 14:30 84 18 95 12/21/22 14:03 76 17 96 12/21/22 14:03 170/81 H 12/21/22 14:00 77 19 96 12/21/22 14:00 179/83 H O2 Del Method O2 Flow Rate 12/22/22 13:52 Room Air 0 12/22/22 13:42 Oxymask 4 12/22/22 13:37 Oxymask 4 12/22/22 13:32 Oxymask 4 12/22/22 13:27 Oxymask 4 12/22/22 13:22 Oxymask 4 12/22/22 13:47 Oxymask 4 12/22/22 13:18 Oxymask 4 12/22/22 12:00 12/22/22 12:28 Room Air 12/22/22 09:00 12/22/22 09:00 12/22/22 08:00 12/22/22 07:00 12/22/22 06:00 12/22/22 06:00 12/22/22 05:00 12/22/22 04:00 12/22/22 04:00 12/22/22 03:00 12/22/22 03:00 12/22/22 02:00 12/22/22 02:00 12/22/22 01:00 12/22/22 01:00 Nasal Cannula 1 12/22/22 00:00 12/22/22 00:00 12/21/22 23:00 12/21/22 23:00 12/22/22 05:20 12/22/22 01:45 12/21/22 22:00 12/21/22 22:00 12/21/22 21:00 12/21/22 21:00 12/21/22 20:01 12/21/22 20:01 12/21/22 20:00 Nasal Cannula 1 12/21/22 19:46 12/21/22 19:46 12/21/22 19:00 12/21/22 19:00 12/21/22 22:36 Nasal Cannula 1 12/21/22 22:35 12/21/22 18:00 12/21/22 18:00 12/21/22 17:06 12/21/22 17:06 12/21/22 17:00 12/21/22 17:00 12/21/22 16:30 12/21/22 16:30 12/21/22 16:00 12/21/22 16:00 12/21/22 15:30 12/21/22 15:30 12/21/22 15:00 12/21/22 15:00 12/21/22 14:30 12/21/22 14:30 12/21/22 14:03 12/21/22 14:03 12/21/22 14:00 12/21/22 14:00 Recovery Score Activity: Moves 4 extremities Respiration: Deep Breath/Cough Circulation: +/-20% PreAnes Value Consciousness: Fully Awake Oxygen Saturation: > 92% On Room Air Post Anesthesia Score: 10 Discharge Sedation Level of Care: Fast Track Phase II Post Sedation Plan On clinical assessment, the patient appears to have tolerated the sedation without complications. Patient is recovering as anticipated. Patient will continue to be monitored by nursing and may be discharged when sedation discharge criteria are met per below protocol. Upon Completions of procedure up to 15 minutes continue every 5 minute vital signs and the P.A.R. score; then discharge to a Phase I or Fast Track to Phase II per the following guidelines: * Discharge Patient to appropriate Phase II area if PAR is 8 or greater or return to pre- procedure baseline. The post - procedure orders will be as directed. * If PAR score is less than 8 or not return to pre-procedure baseline then patient will follow Phase I monitoring till PAR is reached for Phase II. The Phase I may be done in procedure room or may call to secure a Phase I area. * If naloxone or flumazenil are used for reversal, hold in Phase I for continued monitoring from when last reversal dose was given for a minimum of 60 minutes or longer pending the nurse and/or physician discretion of patient condition before discharge to Phase II. Please call the Sedation Physician to re-evaluate and complete post-note for discharge to Phase II area. Do NOT discharge from procedure sedation or Phase 1 until post- sedation evaluation note is complete by procedure /sedation MD Sedation Discharge Instructions to be given to the patient at discharge to home.
--- NOTE | 2022-12-22 16:12 | Surgery Progress Note ---
Date of Service December 22, 2022 Assessment & Plan (1) Bile leak from gallbladder bed: Plan: POD#12 WBC 15 (15). Cr 5.6 Underwent permcath placement with vascular today for HD needs Can resume diet as tolerates from our standpoint Denies abdominal complaints (no pain/v/n). Having + bowel function MIMI drain output slowed down. non bilious. keep in place No general surgical needs at this time Admission and Anticipated Discharge Date Admission Date: December 09, 2022 Subjective Patient seen in dialysis unit. Reports hunger. Denies abdominal pain, nausea/vomiting. Having + bowel function. Physical Exam Physical Exam: resting in bed, but awake. Respiratory: normal respiratory effort Gastrointestinal (Abdomen): Inspection/Auscultation: + abdominal surgical incision (c/d/i) and + abdominal surgical drain present (small amount of dark blood- non bilious output) Percussion/Palpation: abdomen soft; abdomen nontender Results & Data Vital Signs (Past 12 Hours) Vital Signs Temp Pulse Pulse Pulse Resp BP BP 12/22/22 15:30 83 114/66 12/22/22 15:00 88 148/71 H 12/22/22 14:30 85 148/78 H 12/22/22 14:29 80 148/74 H 12/22/22 14:06 36.8 C 80 12/22/22 13:52 87 18 177/85 H 12/22/22 13:42 87 18 181/95 H 12/22/22 13:37 96 H 18 165/95 H 12/22/22 13:32 86 18 181/92 H 12/22/22 13:27 87 18 175/92 H 12/22/22 13:22 86 16 174/87 H 12/22/22 13:47 87 18 183/88 H 12/22/22 13:18 88 16 185/80 H 12/22/22 12:00 89 19 167/88 H 12/22/22 12:28 36.5 C 89 18 156/103 H 12/22/22 09:00 91 H 23 12/22/22 09:00 162/91 H 12/22/22 08:00 89 36 H 12/22/22 07:00 86 17 12/22/22 06:00 86 16 12/22/22 06:00 152/74 H 03/24/23 05:00 91 H 16 12/22/22 05:20 36.8 C Pulse Ox O2 Del Method O2 Flow Rate 12/22/22 15:30 12/22/22 15:00 12/22/22 14:30 12/22/22 14:29 12/22/22 14:06 12/22/22 13:52 97 Room Air 0 12/22/22 13:42 100 Oxymask 4 12/22/22 13:37 100 Oxymask 4 12/22/22 13:32 100 Oxymask 4 12/22/22 13:27 100 Oxymask 4 12/22/22 13:22 100 Oxymask 4 12/22/22 13:47 100 Oxymask 4 12/22/22 13:18 100 Oxymask 4 12/22/22 12:00 92 12/22/22 12:28 93 Room Air 12/22/22 09:00 93 12/22/22 09:00 12/22/22 08:00 94 12/22/22 07:00 94 12/22/22 06:00 93 12/22/22 06:00 12/22/22 05:00 93 12/22/22 05:20 PG Care Time/CCT Total # of Minutes Spent Total Time Spent with Patient: Total time spent is greater than 50% in coordination of care (as documented) at patient's floor/unit and/or counseling patient: Coding Level of Care Code 62666 Post Operative Follow-Up Diagnoses Bile leak from gallbladder bed K83.8
--- NOTE | 2022-12-22 17:06 | Hospitalist Progress Note ---
Date of Service December 22, 2022 Assessment & Plan (1) Acute pancreatitis: (2) Nausea and vomiting: Plan: Possible related togallstone related pancreatitis Present on admission with abdominal pain that radiating to back associating with vomiting and nausea CT abd/pel showedperipancreatic fat stranding is seen concerning for pancreatitis. Prominence of the gallbladder may be reactive or less likely may represent acute cholecystitis. Abdomen u/s showedgallbladder is distended and full of stones/sludge as detailed above. Findings are suspicious for acute cholecystitis. Lipase above 4000's on admission, Lipase 2960--> then 678-->63 Elevated LFT with AST 313 and ALT 536 S/p Lap chol and ERCPwith sphincterotomy and balloon sweeping of the bile duct for stones and puswith stent placement on 12/10/22 CT abd/P on 12/17/22 noted severe pancreatitis similar to prior study, small amount of perihepatic fluid/small amount of pneumoperitoneum, subhepatic catheter unchanged in position, CBD stent with associated pneumobilia, small b/l pleural effusion, unchanged airspace opacities in the lungs. Septic shock Persistent leukocytosis WBC peaked 30.7, then continue to drop to 15K today Continue broad spectrum antibiotic with IV Zosyn and caspofungin Blood and urine culture were negative She has been off pressor since yesterday morning Fungal blood cx pending MIMI drain fluid culture negative so far Acute cholangitis Transaminitis LFTs normalized. Hgb is 10.5 today Gen surg board S/p Lap chol and ERCPwith sphincterotomy and balloon sweeping of the bile duct for stones and puswith stent placement LFT continue trending down with AST 31, ALT 119 and Alk 104 WBC 22.3 K today Gastro and surgery on board Currently on IV Zosyn Will need repeat ERCP in 2 month for stent removal Surgery recommended to keep catalan MIMI drain Acute respiratory failure with hypoxia Likely from dependent atelectasis Continue to encourage incentive spirometry and flutter O2 supplementation to keep oxygen saturation between 88-92% Wean off oxygen as tolerated Paroxysmal Afib Currently on IV amiodarone drip ECHO showed normal LV wall function. EF 65 to 70 % Cardiology on board Heparin drip on hold considering comorbidities: severe pancreatitis/risk of hemorrhagic pancreatitis, recent surgery Continue metoprolol SAMMY Worsening renal function. 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 Vascular surgery on board Dialysis cath placed today by nephrology Avoid nephrotoxic agents Prediabetes Recent Hba1c 6.1 on 12/10/22 Continue monitor BS Hypertension Currently hypotensive as above Antihypertensives on hold Continue monitor BP Hyperthyroidism Continue Methimazole Anxiety Continue Sertraline Code status full code DVT px SCD. Hep gtt on hold as above Updated daughter who was at bedside PT/OT I spent a total of 55 minutes coordinating, documenting and providing care for this patient excluding time spent in performance of separately billed services Admission and Anticipated Discharge Date Admission Date: December 09, 2022 Subjective Pt was seen and examined for follow up Lying in bed with no acute distress I went to see her while she was getting HD She said that she felt tired because she had a busy morning with dialysis cath placed early Denies any chest pain, palpitation, dizziness and SOB Review of Systems Review of Systems: All systems reviewed & are unremarkable except as noted in Subjective Physical Exam Physical Exam: General- No acute distress Head- atraumatic Eyes- PERRL, EOMI, ENT- oropharynx clear Neck- supple, no JVD Lungs- +diminished BS Heart- Regular, no murmur Abdomen- normal bowel sounds, soft, +tender Extremities- no calf tenderness, +edema Neuro- alert, oriented x 3; PERRL, EOMI; no facial palsy; no dysarthria Skin- warm & dry Results & Data Results & Data Vital Signs (Past 12 Hours) Vital Signs Temp Pulse Pulse Pulse Resp BP BP 12/22/22 17:00 68 121/64 12/22/22 16:30 87 127/66 12/22/22 16:00 88 129/65 12/22/22 15:30 83 114/66 12/22/22 15:00 88 148/71 H 12/22/22 14:30 85 148/78 H 12/22/22 14:29 80 148/74 H 12/22/22 14:06 36.8 C 80 12/22/22 13:52 87 18 177/85 H 12/22/22 13:42 87 18 181/95 H 12/22/22 13:37 96 H 18 165/95 H 12/22/22 13:32 86 18 181/92 H 12/22/22 13:27 87 18 175/92 H 12/22/22 13:22 86 16 174/87 H 12/22/22 13:47 87 18 183/88 H 12/22/22 13:18 88 16 185/80 H 12/22/22 12:00 89 19 167/88 H 12/22/22 12:28 36.5 C 89 18 156/103 H 12/22/22 09:00 91 H 23 12/22/22 09:00 162/91 H 12/22/22 08:00 89 36 H 12/22/22 07:00 86 17 12/22/22 06:00 86 16 12/22/22 06:00 152/74 H 12/22/22 05:20 36.8 C Pulse Ox O2 Del Method O2 Flow Rate 12/22/22 17:00 12/22/22 16:30 12/22/22 16:00 12/22/22 15:30 12/22/22 15:00 12/22/22 14:30 12/22/22 14:29 12/22/22 14:06 12/22/22 13:52 97 Room Air 0 12/22/22 13:42 100 Oxymask 4 12/22/22 13:37 100 Oxymask 4 12/22/22 13:32 100 Oxymask 4 12/22/22 13:27 100 Oxymask 4 12/22/22 13:22 100 Oxymask 4 12/22/22 13:47 100 Oxymask 4 12/22/22 13:18 100 Oxymask 4 12/22/22 12:00 92 12/22/22 12:28 93 Room Air 12/22/22 09:00 93 12/22/22 09:00 12/22/22 08:00 94 12/22/22 07:00 94 12/22/22 06:00 93 12/22/22 06:00 12/22/22 05:20 (1) Acute pancreatitis Acute pancreatitis complication: unspecified Pancreatitis type: unspecified pancreatitis type Qualified Code(s): K85.90 - Acute pancreatitis without necrosis or infection, unspecified (2) Nausea and vomiting Vomiting type: unspecified Qualified Code(s): R11.2 - Nausea with vomiting, unspecified
--- NOTE | 2022-12-22 18:34 | Nephrology Progress Note ---
Date of Service December 22, 2022 Assessment & Plan (1) SAMMY (acute kidney injury): Plan: baseilne creatinine 0.8; dialysis dependent oligoanuric stage 3 SAMMY ischemic ATN multifactorial initially including IV contrast, poor po intake prior to admission (presenting s.g. on UA > 1045), continued losartan in setting of above (last dose 12/11), sepsis from pancreatitis/cholecystitis, then compounded by poor renal perfusion w/ pAF and hypotension for several days though this instability resolved by December 13 for the most part. ATN did not resolve/worsened w/ ongoing sepsis; first HD 12/18 continue strict I/O and daily bmp to monitor for renal recovery > to date no s ign of it remains oliguric No need for renal diet. WBC trended down, plateau'd x 24 hrs -for HD today after TDC placement >> tolerated this w/ 1.7 L UF Admission and Anticipated Discharge Date Admission Date: December 09, 2022 Subjective seen midday just before TDC placement; no sob, no n/v; feels a bit improved though still weak; drain output low as is UOP Review of Systems Review of Systems: All systems reviewed & are unremarkable except as noted in Subjective Physical Exam Constitutional: well developed and well nourished; no acute distress Eyes: EOM intact bilaterally ENMT: Ears: no external ear abnormality Nose: no external nose abnormality Mouth: + dry oral mucous membranes Neck: no nuchal rigidity Respiratory: normal respiratory effort; no respiratory distress Auscultation: + diminished lung sounds (markedly) and + crackles (bibasilar, james R base) Cardiovascular: Rate/Rhythm: regular rate and regular rhythm Extremities: + edema (trace -1+) Gastrointestinal (Abdomen): Inspection/Auscultation: normal bowel sounds, + high-pitched sounds, + hyperactive bowel sounds and + hypoactive bowel sounds; + abdomen abnormal to inspection (Right upper quadrant drain) Percussion/Palpation: abdomen soft; abdomen nontender Musculoskeletal: Extremities: + abnormal strength (cannot situp w/o asst; BLE weak) Skin: no rashes, warm and dry plethoric fascies today Psychiatric: Orientation: alert, oriented x 3, oriented to person and cooperative Genitourinary: catalan w/ scant urine Results & Data Vital Signs (Past 12 Hours) Vital Signs Temp Pulse Pulse Pulse Resp BP BP 12/22/22 18:03 37 C 93 H 145/70 H 12/22/22 17:30 95 H 116/66 12/22/22 17:00 68 121/64 12/22/22 16:30 87 127/66 12/22/22 16:00 88 129/65 12/22/22 15:30 83 114/66 12/22/22 15:00 88 148/71 H 12/22/22 14:30 85 148/78 H 12/22/22 14:29 80 148/74 H 12/22/22 14:06 36.8 C 80 12/22/22 13:52 87 18 177/85 H 12/22/22 13:42 87 18 181/95 H 12/22/22 13:37 96 H 18 165/95 H 12/22/22 13:32 86 18 181/92 H 12/22/22 13:27 87 18 175/92 H 12/22/22 13:22 86 16 174/87 H 12/22/22 13:47 87 18 183/88 H 12/22/22 13:18 88 16 185/80 H 12/22/22 12:00 89 19 167/88 H 12/22/22 12:28 36.5 C 89 18 156/103 H 12/22/22 09:00 91 H 23 12/22/22 09:00 162/91 H 12/22/22 08:00 89 36 H 12/22/22 07:00 86 17 Pulse Ox O2 Del Method O2 Flow Rate 12/22/22 18:03 12/22/22 17:30 12/22/22 17:00 12/22/22 16:30 12/22/22 16:00 12/22/22 15:30 12/22/22 15:00 12/22/22 14:30 12/22/22 14:29 12/22/22 14:06 12/22/22 13:52 97 Room Air 0 12/22/22 13:42 100 Oxymask 4 12/22/22 13:37 100 Oxymask 4 12/22/22 13:32 100 Oxymask 4 12/22/22 13:27 100 Oxymask 4 12/22/22 13:22 100 Oxymask 4 12/22/22 13:47 100 Oxymask 4 12/22/22 13:18 100 Oxymask 4 12/22/22 12:00 92 12/22/22 12:28 93 Room Air 12/22/22 09:00 93 12/22/22 09:00 12/22/22 08:00 94 12/22/22 07:00 94 Laboratory Results 12/22/22 04:47 12/22/22 04:47
[2022-12-22] MEDS: CASPOFUNGIN 50 MG in SODIUM CHLORIDE 0.9% 250 ML IV SCH (19:56)
--- NOTE | 2022-12-23 05:19 | Surgery Progress Note ---
Date of Service December 23, 2022 Assessment & Plan (1) Cholecystitis: Plan: Status post laparoscopic cholecystectomy on 12/10/2022 (postop day #13) Continue analgesics as needed Continue XI drain to bulb suction Continue diet as tolerated Out of bed and mobilize as able (this is limited as patient has underlying history of MS) Patient did undergo temporary hemodialysis catheter placement and was dialyzed yesterday due to acute kidney injury with oliguria Check a.m. labs when available Subcutaneous heparin is in place for DVT prevention Admission and Anticipated Discharge Date Admission Date: December 09, 2022 Supervising Physician Co-Signing Physician Notes pnt S&E, agree with above. s/p lap adele and ercp, bile leak. doing well, no issues. incisions w/o infection. xi bilious. labs stable. continue current management. Subjective Patient is resting comfortably in bed. She denies significant abdominal pain. She denies nausea vomiting. Discussed with nurse attending the patient's the patient is tolerating small amounts of solid food without worsening abdominal pain or nausea or vomiting. XI drain is draining minimal. Patient has had a bowel movement over the past 24 hours. Physical Exam Gastrointestinal (Abdomen): Abdomen is soft and nondistended with minimal pain to palpation. XI drain is in place draining bilious fluid and has only drained approximately 20 cc over the past 24 hours. Results & Data Vital Signs (Past 12 Hours) Vital Signs Temp Pulse Pulse Pulse Resp BP BP 12/23/22 04:42 36.9 C 93 H 127/93 12/22/22 21:01 99 H 12/22/22 19:15 106 H 12/22/22 19:15 12/22/22 23:05 36.9 C 98 H 22 12/22/22 20:19 36.9 C 103 H 18 143/82 H 12/22/22 18:49 36.5 C 93 H 18 134/70 12/22/22 18:03 37 C 93 H 145/70 H 12/22/22 17:30 95 H 116/66 BP Pulse Ox O2 Del Method O2 Flow Rate 12/23/22 04:42 94 Room Air, Nasal Cannula 1.2 12/22/22 21:01 12/22/22 19:15 12/22/22 19:15 Nasal Cannula 1 12/22/22 23:05 152/73 H 96 Nasal Cannula 1 12/22/22 20:19 94 Room Air 12/22/22 18:49 95 Room Air 12/22/22 18:03 12/22/22 17:30 PG Care Time/CCT Total # of Minutes Spent Total Time Spent with Patient: Total time spent is greater than 50% in coordination of care (as documented) at patient's floor/unit and/or counseling patient: Coding Level of Care Code 26788 Post Operative Follow-Up Diagnoses Cholecystitis K81.9
[2022-12-23 05:50] LABS: Hematocrit (blood only) 29.8 % (37.0-47.0); Hemoglobin 10.3 g/dl (12.0-16.0); Mean Corpuscular Hemoglobin 29.8 pg (25.0-34.0); Mean Corpuscular Hgb Conc 34.6 g/dL (32.0-36.0); Mean Corpuscular Volume 86.1 fL (80.0-100.0); Mean Platelet Volume 10.2 fL (9.4-12.4); Platelet Count 286 K/uL (130-400); RDW Coefficient of Variation 14.8 % (11.5-14.5); RDW Standard Deviation 46.8 fL (36.4-46.3); Red Blood Count 3.46 M/uL (4.20-5.40); White Blood Count 14.12 K/ul (4.8-10.8)
[2022-12-23 06:01] LABS: Calcium 7.5 mg/dl (8.6-10.3); Creatinine Clr Calc Pharmacy 15.5 ml/min; Est GFR (African American) 12.6 ml/min; Est GFR (Non-African American) 10.9 ml/min; Potassium 3.8 mmol/L (3.5-5.1)
[2022-12-23] MEDS: METOPROLOL SUCC 25MG EXT REL TAB PO SCH ×4 (07:58→21:32)
[2022-12-23] MEDS: INSULIN ASPART PER UNIT CHARGE SC SCH ×5 (07:58→21:47)
[2022-12-23] MEDS: AMIODARONE 200 MG TAB PO SCH ×2 (08:45→21:31)
[2022-12-23] MEDS: CALCIUM CARBONATE 1,250 MG/5 ML UDC PO SCH ×2 (08:46→21:32)
[2022-12-23] MEDS: FLUTICASONE PROPIONATE NA SPR 16 GM BTL NAE SCH (08:46)
[2022-12-23] MEDS: SERTRALINE HCL 50 MG TABLET PO SCH (08:47)
[2022-12-23] MEDS: DOCUSATE SODIUM/SENNA 50/8.6MG TAB PO SCH ×2 (08:47→20:00)
[2022-12-23] MEDS: HEPARIN SOD 5,000 UNIT/0.5 ML VIAL SQ SCH (08:47)
[2022-12-23] MEDS: methIMAzole 5 MG TABLET PO SCH (08:48)
--- NOTE | 2022-12-23 09:45 | Nephrology Progress Note ---
Date of Service December 23, 2022 Assessment & Plan (1) SAMMY (acute kidney injury): Plan: baseilne creatinine 0.8; dialysis dependent oligoanuric stage 3 SAMMY ischemic ATN multifactorial initially including IV contrast, poor po intake prior to admission (presenting s.g. on UA > 1045), continued losartan in setting of above (last dose 12/11), sepsis from pancreatitis/cholecystitis, then compounded by poor renal perfusion w/ pAF and hypotension for several days though this instability resolved by December 13 for the most part. ATN did not resolve/worsened w/ ongoing sepsis; first HD 12/18; TDC on 12/22 continue strict I/O and daily bmp to monitor for renal recovery > to date no sign of it remains oliguric No need for renal diet for now WBC trended down, plateau'd x 24 hrs w/ ? slight down trend today -tolerated HD 12/22 w/ 1.7L UF, one other tx earlier in week w/ 2L UF >plan 2 hrs HD today > unfortunately this was unsuccessful; will reevaluate TDC tomorrow am and see if we can run her then, else may need vascular to reeavluate TDC >>added standing hydralazine to help with BP while we can't dialyze Admission and Anticipated Discharge Date Admission Date: December 09, 2022 Subjective seen as she was stopping dialysis after <10 minutes tx d/t venous limb not aspirating/elevated arterial pressures. also w/ vaginal bleeding today so heparin w/ tx held; pt frustrated about challenges of her care/setback; no sob, no n/v; no abd pain Review of Systems Review of Systems: All systems reviewed & are unremarkable except as noted in Subjective Physical Exam Constitutional: well developed and well nourished; no acute distress Eyes: EOM intact bilaterally ENMT: Ears: no external ear abnormality Nose: no external nose abnormality Mouth: + dry oral mucous membranes Neck: no nuchal rigidity Respiratory: normal respiratory effort; no respiratory distress Auscultation: + diminished lung sounds (markedly) Cardiovascular: Rate/Rhythm: regular rate and regular rhythm Extremities: + edema (trace -1+) Gastrointestinal (Abdomen): Inspection/Auscultation: normal bowel sounds, + high-pitched sounds, + hyperactive bowel sounds and + hypoactive bowel sounds; + abdomen abnormal to inspection (Right upper quadrant drain) Percussion/Palpation: abdomen soft; abdomen nontender Musculoskeletal: Extremities: + abnormal strength (cannot situp w/o asst; BLE weak) Skin: no rashes, warm and dry Psychiatric: Orientation: alert, oriented x 3, oriented to person and coop erative Results & Data Vital Signs (Past 12 Hours) Vital Signs Temp Pulse Resp BP BP Pulse Ox O2 Del Method 12/23/22 08:37 36.5 C 97 H 21 145/80 H 92 Room Air 12/23/22 04:42 36.9 C 93 H 127/93 94 Room Air, Nasal Cannula 12/22/22 23:05 36.9 C 98 H 22 152/73 H 96 Nasal Cannula O2 Flow Rate 12/23/22 08:37 12/23/22 04:42 1.2 12/22/22 23:05 1 Laboratory Results 12/23/22 05:16 12/23/22 05:16
[2022-12-23] MEDS ORDERED: SODIUM CHLORIDE 0.9% 1000ML 1,000 ML IV PRN (09:52)
[2022-12-23] MEDS ORDERED: HEPARIN SOD (PORCINE) 1000 UNIT/ML IV ONE (09:52)
--- NOTE | 2022-12-23 16:32 | Hospitalist Progress Note ---
Date of Service December 23, 2022 Assessment & Plan (1) Acute pancreatitis: (2) Nausea and vomiting: Plan: Possible related togallstone related pancreatitis Present on admission with abdominal pain that radiating to back associating with vomiting and nausea CT abd/pel showedperipancreatic fat stranding is seen concerning for pancreatitis. Prominence of the gallbladder may be reactive or less likely may represent acute cholecystitis. Abdomen u/s showedgallbladder is distended and full of stones/sludge as detailed above. Findings are suspicious for acute cholecystitis. Lipase above 4000's on admission, Lipase 2960--> then 678-->63 Elevated LFT with AST 313 and ALT 536 S/p Lap chol and ERCPwith sphincterotomy and balloon sweeping of the bile duct for stones and puswith stent placement on 12/10/22 CT abd/P on 12/17/22 noted severe pancreatitis similar to prior study, small amount of perihepatic fluid/small amount of pneumoperitoneum, subhepatic catheter unchanged in position, CBD stent with associated pneumobilia, small b/l pleural effusion, unchanged airspace opacities in the lungs. Septic shock Persistent leukocytosis WBC peaked 30.7, then continue to drop to 15K today Continue broad spectrum antibiotic with IV Zosyn and caspofungin Blood and urine culture were negative She has been off pressor since yesterday morning Fungal blood cx pending MIMI drain fluid culture negative so far Acute cholangitis Transaminitis LFTs normalized. Hgb is 10.5 today Gen surg board S/p Lap chol and ERCPwith sphincterotomy and balloon sweeping of the bile duct for stones and puswith stent placement LFT continue trending down with AST 31, ALT 119 and Alk 104 WBC 22.3 K today Gastro and surgery on board Currently on IV Zosyn Will need repeat ERCP in 2 month for stent removal Surgery recommended to keep catalan MIMI drain Acute respiratory failure with hypoxia Likely from dependent atelectasis Continue to encourage incentive spirometry and flutter O2 supplementation to keep oxygen saturation between 88-92% Wean off oxygen as tolerated Saturated well on RA Paroxysmal Afib Telemonitor showed NSR ECHO showed normal LV wall function. EF 65 to 70 % Cardiology on board No anticoagulant for now considering comorbidities: severe pancreatitis/risk of hemorrhagic pancreatitis, recent surgery Continue metoprolol and amiodarone PO SAMMY Worsening renal function. Creatinine increased upto 8.38, BUN 110 on 12/18/22 Patient transferred to ICU on 12/18/22 and started on HD same day Cr is 3.8 today, BUN is 35 Clay Modeler on board She was planning to get dialysis today, but catheter was not working. Vascular surgery on board Plan to HD today for 2 hrs Avoid nephrotoxic agents Vaginal bleeding possible related to trauma from the catheter. No blood seen in the urine from the catalan cath I was able to eval her vagina in the presence of the nurse and the daughter with patient permission Will hold heparin subq Will consult HUB LEAD to eval Will monitor H/H Prediabetes Recent Hba1c 6.1 on 12/10/22 Continue monitor BS Hypertension BP elevated Will consider to start on BP med if continues to be elevated Continue monitor BP Hyperthyroidism Continue Methimazole Anxiety Continue Sertraline Code status full code DVT px SCD 9 Hold heparin subq due to vaginal bleeding Updated daughter who was at bedside Continue PT/OT I spent a total of 45 minutes coordinating, documenting and providing care for this patient excluding time spent in performance of separately billed services Admission and Anticipated Discharge Date Admission Date: December 09, 2022 Subjective Pt was seen and examined for follow up Lying in bed with no acute distress with significant other and niece/nephew at bedside Pt said that she could not sleep last night I received a call later from nurse that pt was having vaginal bleeding I went back to reassess her. She did not complaint of any vaginal pain She schedule to get HD today Denies any chest pain, palpitation, dizziness and SOB Review of Systems Review of Systems: All systems reviewed & are unremarkable except as noted in Subjective Physical Exam Physical Exam: General- No acute distress Head- atraumatic Eyes- PERRL, EOMI, ENT- oropharynx clear Neck- supple, no JVD Lungs- +diminished BS Heart- Regular, no murmur Abdomen- normal bowel sounds, soft, +tender Extremities- no calf tenderness, +edema Neuro- alert, oriented x 3; PERRL, EOMI; no facial palsy; no dysarthria Skin- warm & dry Results & Data Results & Data Vital Signs (Past 12 Hours) Vital Signs Temp Pulse Resp BP Pulse Ox O2 Del Method O2 Flow Rate 12/23/22 12:24 37.0 C 96 H 20 153/80 H 94 Room Air 12/23/22 08:37 36.5 C 97 H 21 145/80 H 92 Room Air 12/23/22 04:42 36.9 C 93 H 127/93 94 Room Air, Nasal Cannula 1.2 (1) Acute pancreatitis Acute pancreatitis complication: unspecified Pancreatitis type: unspecified pancreatitis type Qualified Code(s): K85.90 - Acute pancreatitis without necrosis or infection, unspecified (2) Nausea and vomiting Vomiting type: unspecified Qualified Code(s): R11.2 - Nausea with vomiting, unspecified
[2022-12-23] MEDS: CASPOFUNGIN 50 MG in SODIUM CHLORIDE 0.9% 250 ML IV SCH (18:13)
[2022-12-23 19:21] LABS: Hematocrit (blood only) 30.8 % (37.0-47.0); Hemoglobin 10.4 g/dl (12.0-16.0)
[2022-12-23] MEDS: MELATONIN 3 MG TAB PO PRN (21:31)
[2022-12-23] MEDS: CETIRIZINE HCL 10 MG TABLET PO SCH (21:31)
[2022-12-23] MEDS: hydrALAZINE HCL 25 MG TAB PO SCH (21:32)
--- NOTE | 2022-12-24 05:11 | Surgery Progress Note ---
Date of Service December 24, 2022 Assessment & Plan (1) Cholecystitis: Plan: Status post laparoscopic cholecystectomy on 12/10/2022 (postop day #14) Continue analgesics as needed Continue XI drain to bulb suction Continue diet as tolerated Mobilize as able (this is limited as patient has underlying history of MS) Continue dialysis needs as directed by nephrology. They did note some difficulty with temporary dialysis catheter which may require vascular in tervention. Check a.m. labs when available Subcutaneous heparin is in place for DVT prevention Admission and Anticipated Discharge Date Admission Date: December 09, 2022 Supervising Physician Co-Signing Physician Notes pnt S&E, agree with above. s/p lap adele and ercp, bile leak. doing well, no issues. incisions w/o infection. xi bilious. labs stable. continue current management. Subjective Patient is resting in bed and is comfortable at the present time. She denies worsening abdominal pain. She denies any nausea or vomiting and that she is tolerating solid food without worsening abdominal pain. She notes that her bowels have moved since her surgery. Physical Exam Gastrointestinal (Abdomen): Abdomen is soft and nondistended. There is minimal pain with palpation. XI drain is in place draining a small amount of bilious fluid. Results & Data Vital Signs (Past 12 Hours) Vital Signs Temp Pulse Pulse Pulse Resp BP BP 12/24/22 03:32 36.8 C 95 H 20 152/80 H 12/23/22 23:22 36.9 C 95 H 18 147/84 H 12/23/22 21:59 95 H 12/23/22 19:30 12/23/22 19:19 37.0 C 96 H 18 168/77 H 12/23/22 18:41 96 H 12/23/22 17:26 37.0 C 95 H 18 168/75 H Pulse Ox O2 Del Method 12/24/22 03:32 95 Room Air 12/23/22 23:22 93 Room Air 12/23/22 21:59 12/23/22 19:30 Room Air 12/23/22 19:19 93 Room Air 12/23/22 18:41 12/23/22 17:26 95 Room Air PG Care Time/CCT Total # of Minutes Spent Total Time Spent with Patient: Total time spent is greater than 50% in coordination of care (as documented) at patient's floor/unit and/or counseling patient: Coding Level of Care Code 07976 Post Operative Follow-Up Diagnoses Cholecystitis K81.9
[2022-12-24 06:10] LABS: Hematocrit (blood only) 29.8 % (37.0-47.0); Hemoglobin 10.1 g/dl (12.0-16.0); Mean Corpuscular Hemoglobin 29.4 pg (25.0-34.0); Mean Corpuscular Hgb Conc 33.9 g/dL (32.0-36.0); Mean Corpuscular Volume 86.6 fL (80.0-100.0); Platelet Count 304 K/uL (130-400); RDW Coefficient of Variation 14.9 % (11.5-14.5); RDW Standard Deviation 46.7 fL (36.4-46.3); Red Blood Count 3.44 M/uL (4.20-5.40); White Blood Count 13.29 K/ul (4.8-10.8)
[2022-12-24 06:29] LABS: BUN Creatinine Ratio 10.6 (10-20); Calcium 7.4 mg/dl (8.6-10.3); Creatinine Clr Calc Pharmacy 12.9 ml/min; Est GFR (African American) 10.1 ml/min; Est GFR (Non-African American) 8.8 ml/min; Phosphorus 4.2 mg/dl (2.5-4.9); Potassium 3.6 mmol/L (3.5-5.1)
--- NOTE | 2022-12-24 08:05 | OB/GYN Consultation ---
Date of Consultation December 24, 2022 Assessment & Plan (1) Urethral trauma: At this time, the most likely cause of her bleeding seems to be urethral trauma. This could result in blood on the outside of the catalan and perineum, but not in the bladder up above, thus not inside the urinary drainage system. However I cannot r/o either hemorrhoids, vaginal trauma, or uterine bleeding as the true etiology. Discussed with the patient that identifying the source would require better positioning and an internal vaginal exam. In the event that uterine bleeding were discovered, the worst case scenario of uterine cancer would then require hysterectomy and/or additional treatment, which she is not interested in pursuing at this time even if it is felt to be feasible. Thus she declines further workup at present. The best course is likely to avoid further trauma to the area and allow healing of any lacerations present. Good perineal hygiene, barrier ointment, and avoidance of unnecessary catalan traction or movement are recommended. If the primary team feels she would tolerate it, she could be offered an ultrasound of the pelvis. However it is noted that a transvaginal ultrasound would likely be required to get meaningful images due to her habitus, and this is likely to require the same positioning she declined to perform for exam today. Since she would not want to have treatment right now, I think deferring imaging until she is able to complete this as an outpatient is acceptable. Should the bleeding increase to a point where either the patient or the primary team feel interested in pursuing workup that has been declined, please feel free to contact RECRUITING ASSISTANT. For now we will sign off. 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 But it's been many, many years." Currently admitted x 2 weeks with a complicated course of choledocholithiasis, pancreatitis, acute renal failure on dialysis, sepsis, and other issues, now s/p sub-complete cholecystectomy, ERCP, and vascular access placement, showing improvement in many ways but still with a MIMI drain in the gallbladder bed and not yet back to baseline health. I am asked to see the patient for new onset vaginal bleeding. Upon speaking to her nurse this morning I am informed that this was noted yesterday at the time of a bowel movement, with blood seen on the TP. There was report between nursing shifts of a possible traumatic catalan insertion. Report between nurses has noted that there was no blood seen in the urine inside the catalan, however; only on the perineum. Patient notes that she has had no vaginal bleeding since she went into menopause. She is not aware of having hemorrhoids or prior episodes of bleeding with bowel movements. She also does not currently have any perineal or vaginal pain. She does not want to lie flat as this is very uncomfortable for her, and does not want to have an internal exam if it requires putting her legs up in st irrups as that would be even more uncomfortable. She does consent to a bedside exam of whatever I can see while she remains in bed with the head somewhat elevated, with her nurse as adjunct art history instructor. Allergies Allergy/AdvReac Type Severity Reaction Status Date / Time No Known Allergies Allergy Unverified 04/26/12 15:09 Home Medications Medication Instructions Recorded Confirmed Type losartan 50 mg tablet 50 mg PO DAILY 12/09/22 12/09/22 History methimazole 5 mg tablet 5 mg PO DAILY 12/09/22 12/09/22 History sertraline 50 mg tablet 50 mg PO DAILY 12/09/22 12/09/22 History solifenacin 10 mg tablet 10 mg PO DAILY 12/09/22 12/09/22 History Patient History Medical History Ambulatory dysfunction d/t MS Depression History of claustrophobia Hypertension Multiple sclerosis Surgical History Hx laparoscopic cholecystectomy (12/10/22) Laparoscopic cholecystectomy with extensive lysis of adhesions, please add modifier for extensive difficulty and increased length of the procedure. Social History Smoking Status: Former smoker Second Hand Exposure: No; Hx Alcohol Use: No Hx Substance Use: No Preferred Language: Greenlandic Communication Ability: Effective Rework Machine Operator Required: No Beliefs That Will Affect Care: None marital status: Single Current Living Situation: Significant Other current occupational status: retired Feels Safe at Home: Yes Assistive Devices: Scooter/Electric Scooter, Walker, Wheelchair and Other Physical Exam Physical Exam: Obese female appearing stated age, alert and conversant, pleasant and cooperative. Bruising and prior vascular access dressing on R neck. MIMI next to her R side, with bilious drainage inside the bulb, sitting on the bed. SCD's on lower extremities. Tolerates head of bed lowered to about 15 degrees but no further. Accepts fully-assisted positioning of knees to partial frog-leg position. Catalan seen in place, with cloudy yellow urine in tubing. Crusted blood on the outside of the rubber portion of the catalan near the labia. Labia parted, and it is evident that there is blood at the urethral opening where the catalan enters. There is also dried blood between the labia from the clitoral luke to the fourchette. It is not possible to ascertain the source of bleeding from this limited exam, as blood from urethra, vagina, or anus could have spread throughout the noted areas while patient lay supine. However the distribution suggests a more anterior source (ie urethra) rather than a posterior one, given the patient is generally positioned on her back or sitting upright. It is not possible to visualize the anal area with the positioning limitations presented at this time. Results & Data Vital Signs (Past 12 Hours) Vital Signs Temp Pulse Pulse Resp BP Pulse Ox O2 Del Method 12/24/22 03:32 98.2 F 95 H 20 152/80 H 95 Room Air 12/23/22 23:22 98.4 F 95 H 18 147/84 H 93 Room Air 12/23/22 21:59 95 H
[2022-12-24] MEDS: CALCIUM CARBONATE 1,250 MG/5 ML UDC PO SCH ×2 (08:45→20:18)
[2022-12-24] MEDS: SERTRALINE HCL 50 MG TABLET PO SCH (08:45)
[2022-12-24] MEDS: METOPROLOL SUCC 25MG EXT REL TAB PO SCH ×3 (08:45→20:18)
[2022-12-24] MEDS: AMIODARONE 200 MG TAB PO SCH ×2 (08:45→20:18)
[2022-12-24] MEDS: FLUTICASONE PROPIONATE NA SPR 16 GM BTL NAE SCH (08:47)
[2022-12-24] MEDS: hydrALAZINE HCL 25 MG TAB PO SCH (08:47)
[2022-12-24] MEDS: DOCUSATE SODIUM/SENNA 50/8.6MG TAB PO SCH ×2 (08:48→20:18)
[2022-12-24] MEDS: INSULIN ASPART PER UNIT CHARGE SC SCH ×4 (08:54→20:16)
[2022-12-24] MEDS ORDERED: ALTEPLASE, RECOMBINANT 1 MG/ML 2ML VIAL INSTIL ONE ×2 (09:28→09:32)
[2022-12-24] MEDS ORDERED: SODIUM CHLORIDE 0.9% 1000ML 1,000 ML IV PRN (09:28)
[2022-12-24] MEDS ORDERED: HEPARIN SOD (PORCINE) 1000 UNIT/ML IV ONE (09:28)
[2022-12-24] MEDS: methIMAzole 5 MG TABLET PO SCH (10:30)
--- NOTE | 2022-12-24 17:25 | Hospitalist Progress Note ---
Date of Service December 24, 2022 Assessment & Plan (1) Acute pancreatitis: (2) Nausea and vomiting: Plan: Possible related togallstone related pancreatitis Present on admission with abdominal pain that radiating to back associating with vomiting and nausea CT abd/pel showedperipancreatic fat stranding is seen concerning for pancreatitis. Prominence of the gallbladder may be reactive or less likely may represent acute cholecystitis. Abdomen u/s showedgallbladder is distended and full of stones/sludge as detailed above. Findings are suspicious for acute cholecystitis. Lipase above 4000's on admission, Lipase 2960--> then 678-->63 Elevated LFT with AST 313 and ALT 536 S/p Lap chol and ERCPwith sphincterotomy and balloon sweeping of the bile duct for stones and puswith stent placement on 12/10/22 CT abd/P on 12/17/22 noted severe pancreatitis similar to prior study, small amount of perihepatic fluid/small amount of pneumoperitoneum, subhepatic catheter unchanged in position, CBD stent with associated pneumobilia, small b/l pleural effusion, unchanged airspace opacities in the lungs. Septic shock Persistent leukocytosis WBC peaked 30.7, then continue to drop to 13K today Continue broad spectrum antibiotic with IV Zosyn and caspofungin Blood and urine culture were negative She has been off pressor since yesterday morning Fungal blood cx pending MIMI drain fluid culture negative so far Acute cholangitis Transaminitis LFTs normalized. Hgb is 10.5 today Gen surg board S/p Lap chol and ERCPwith sphincterotomy and balloon sweeping of the bile duct for stones and puswith stent placement LFT continue trending down with AST 31, ALT 119 and Alk 104 WBC 22.3 K today Gastro and surgery on board Currently on IV Zosyn Will need repeat ERCP in 2 month for stent removal Surgery recommended to keep catalan MIMI drain Acute respiratory failure with hypoxia Likely from dependent atelectasis Continue to encourage incentive spirometry and flutter O2 supplementation to keep oxygen saturation between 88-92% Wean off oxygen as tolerated Saturated well on RA Paroxysmal Afib Telemonitor showed NSR ECHO showed normal LV wall function. EF 65 to 70 % Cardiology on board No anticoagulant for now considering comorbidities: severe pancreatitis/risk of hemorrhagic pancreatitis, recent surgery Continue metoprolol and amiodarone PO SAMMY Worsening renal function. Creatinine increased upto 8.38, BUN 110 on 12/18/22 Patient transferred to ICU on 12/18/22 and started on HD same day Cr is 4.6 today, BUN is 49 Cutter Operator Brick on board She was planning to get dialysis today, but catheter was not working. Vascular surgery on board Plan to HD today since dialysis cath was not able to work yesterday Avoid nephrotoxic agents Vaginal bleeding possible related to urethral trauma from the catheter. No blood seen in the urine from the catalan cath Hgb stable Continue to hold subq heparin ORTHOTIC TECHNICIAN on board Will monitor H/H Prediabetes Recent Hba1c 6.1 on 12/10/22 Continue monitor BS Hypertension BP elevated Will consider to start on BP med if continues to be elevated Continue monitor BP Hyperthyroidism Continue Methimazole Anxiety Continue Sertraline Code status full code DVT px SCD 9 Hold heparin subq due to vaginal bleeding Updated daughter who was at bedside Continue PT/OT I spent a total of 45 minutes coordinating, documenting and providing care for this patient excluding time spent in performance of separately billed services Admission and Anticipated Discharge Date Admission Date: December 09, 2022 Subjective Pt was seen and examined for follow up Lying in bed with no acute distress with significant other at bedside Pt said that she is not feeling well today She said that she did not sleep well last night Denies any chest pain, palpitation, dizziness and SOB Review of Systems Review of Systems: All systems reviewed & are unremarkable except as noted in Subjective Physical Exam Physical Exam: General- No acute distress Head- atraumatic Eyes- PERRL, EOMI, ENT- oropharynx clear Neck- supple, no JVD Lungs- +diminished BS Heart- Regular, no murmur Abdomen- normal bowel sounds, soft, +tender Extremities- no calf tenderness, +edema Neuro- alert, oriented x 3; PERRL, EOMI; no facial palsy; no dysarthria Skin- warm & dry Results & Data Results & Data Vital Signs (Past 12 Hours) Vital Signs Temp Pulse Pulse Pulse Resp BP BP 12/24/22 16:11 36.7 C 92 H 18 120/66 12/24/22 14:50 36.6 C 74 142/67 H 12/24/22 14:00 63 135/60 12/24/22 13:30 62 137/64 12/24/22 13:00 64 132/63 12/24/22 12:30 62 153/72 H 12/24/22 12:16 69 134/82 12/24/22 12:06 69 125/67 12/24/22 11:30 106 H 145/95 H 12/24/22 12:00 98 H 80/57 L 12/24/22 11:23 118 H 136/97 12/24/22 11:16 36.7 C 115 H 12/24/22 08:19 36.8 C 90 17 158/80 H 12/24/22 07:50 Pulse Ox O2 Del Method 12/24/22 16:11 93 Room Air 12/24/22 14:50 12/24/22 14:00 12/24/22 13:30 12/24/22 13:00 12/24/22 12:30 12/24/22 12:16 12/24/22 12:06 12/24/22 11:30 12/24/22 12:00 12/24/22 11:23 12/24/22 11:16 12/24/22 08:19 95 Room Air 12/24/22 07:50 Room Air (1) Acute pancreatitis Acute pancreatitis complication: unspecified Pancreatitis type: unspecified pancreatitis type Qualified Code(s): K85.90 - Acute pancreatitis without necrosis or infection, unspecified (2) Nausea and vomiting Vomiting type: unspecified Qualified Code(s): R11.2 - Nausea with vomiting, unspecified
--- NOTE | 2022-12-24 18:02 | Nephrology Progress Note ---
Date of Service December 24, 2022 Assessment & Plan (1) SAMMY (acute kidney injury): Plan: baseline creatinine 0.8; dialysis dependent oligoanuric stage 3 SAMMY ischemic ATN multifactorial initially including IV contrast, poor po intake prior to admission (presenting s.g. on UA > 1045), continued losartan in setting of above (last dose 12/11), sepsis from pancreatitis/cholecystitis, then compounded by poor renal perfusion w/ pAF and hypotension for several days though this instability resolved by December 13 for the most part. ATN did not resolve/worsened w/ ongoing sepsis; first HD 12/18; TDC on 12/22 continue strict I/O and daily bmp to monitor for renal recovery > increase in UOP is promising No need for renal diet for now WBC trended down, plateau'd x 24 hrs w/ ? slight down trend today -tolerated HD 12/22 w/ 1.7L UF, one other tx earlier in week w/ 2L UF; also 12/24 w/ 1.9 L UF >reevaluate tomorrow or Tues for whether/when further txs needed; if further txs needed will need hourly heparin bolus in addition to initial bolus Admission and Anticipated Discharge Date Admission Date: December 09, 2022 Subjective Urine output picking up past 2 days. EDUCATIONAL TECHNOLOGIST evaluated the patient and considers the bleeding related to minor urethral tear with Tomlinson; vaginal exam deferred for now. We were able to get the catheter to run better today after and did a treatment with 1.9 L off. Seen after treatment and she was tired but more alert Review of Systems Review of Systems: All systems reviewed & are unremarkable except as noted in Subjective Physical Exam Constitutional: well developed and well nourished; no acute distress Eyes: EOM intact bilaterally ENMT: Ears: no external ear abnormality Nose: no external nose abnormality Mouth: + dry oral mucous membranes Neck: no nuchal rigidity Respiratory: normal respiratory effort and + paradoxical thoraco-abdominal movement; no respiratory distress Auscultation: + diminished lung sounds (markedly) Cardiovascular: Rate/Rhythm: regular rate and regular rhythm Extremities: + edema (1-2+ distally) Gastrointestinal (Abdomen): Inspection/Auscultation: normal bowel sounds; + abdomen abnormal to inspection (Right upper quadrant drain) Percussion/Palpation: abdomen soft; abdomen nontender Musculoskeletal: Extremities: + abnormal strength (cannot situp w/o asst; BLE weak) Skin: no rashes, warm and dry Psychiatric: Orientation: alert, oriented x 3, oriented to person and cooperative Results & Data Vital Signs (Past 12 Hours) Vital Signs Temp Pulse Pulse Pulse Resp BP BP 12/24/22 16:11 36.7 C 92 H 18 120/66 12/24/22 14:50 36.6 C 74 142/67 H 12/24/22 14:00 63 135/60 12/24/22 13:30 62 137/64 12/24/22 13:00 64 132/63 12/24/22 12:30 62 153/72 H 12/24/22 12:16 69 134/82 12/24/22 12:06 69 125/67 12/24/22 11:30 106 H 145/95 H 12/24/22 12:00 98 H 80/57 L 12/24/22 11:23 118 H 136/97 12/24/22 11:16 36.7 C 115 H 12/24/22 08:19 36.8 C 90 17 158/80 H 12/24/22 07:50 Pulse Ox O2 Del Method 12/24/22 16:11 93 Room Air 12/24/22 14:50 12/24/22 14:00 12/24/22 13:30 12/24/22 13:00 12/24/22 12:30 12/24/22 12:16 12/24/22 12:06 12/24/22 11:30 12/24/22 12:00 12/24/22 11:23 12/24/22 11:16 12/24/22 08:19 95 Room Air 12/24/22 07:50 Room Air Laboratory Results 12/24/22 05:41 12/24/22 05:41
[2022-12-24] MEDS: CASPOFUNGIN 50 MG in SODIUM CHLORIDE 0.9% 250 ML IV SCH (18:26)
[2022-12-24] MEDS: MELATONIN 3 MG TAB PO PRN (20:23)
[2022-12-25 07:50] LABS: Hematocrit (blood only) 29.7 % (37.0-47.0); Hemoglobin 10.2 g/dl (12.0-16.0); Mean Corpuscular Hemoglobin 29.3 pg (25.0-34.0); Mean Corpuscular Hgb Conc 34.3 g/dL (32.0-36.0); Mean Corpuscular Volume 85.3 fL (80.0-100.0); Mean Platelet Volume 9.8 fL (9.4-12.4); Platelet Count 318 K/uL (130-400); RDW Coefficient of Variation 14.6 % (11.5-14.5); RDW Standard Deviation 45.1 fL (36.4-46.3); Red Blood Count 3.48 M/uL (4.20-5.40); White Blood Count 12.38 K/ul (4.8-10.8)
[2022-12-25] MEDS: FLUTICASONE PROPIONATE NA SPR 16 GM BTL NAE SCH (08:21)
[2022-12-25] MEDS: DOCUSATE SODIUM/SENNA 50/8.6MG TAB PO SCH ×2 (08:21→20:16)
[2022-12-25] MEDS: AMIODARONE 200 MG TAB PO SCH ×2 (08:23→20:17)
[2022-12-25] MEDS: methIMAzole 5 MG TABLET PO SCH (08:23)
[2022-12-25] MEDS: METOPROLOL SUCC 25MG EXT REL TAB PO SCH ×3 (08:24→20:19)
[2022-12-25] MEDS: CALCIUM CARBONATE 1,250 MG/5 ML UDC PO SCH ×2 (08:24→20:16)
[2022-12-25] MEDS: SERTRALINE HCL 50 MG TABLET PO SCH (08:24)
[2022-12-25] MEDS: INSULIN ASPART PER UNIT CHARGE SC SCH ×4 (08:27→20:46)
[2022-12-25 08:42] LABS: Calcium 7.7 mg/dl (8.6-10.3); Creatinine Clr Calc Pharmacy 14.4 ml/min; Est GFR (African American) 12.1 ml/min; Est GFR (Non-African American) 10.4 ml/min; Potassium 3.8 mmol/L (3.5-5.1)
[2022-12-25] MEDS ORDERED: ALTEPLASE, RECOMBINANT 1 MG/ML 2ML VIAL INSTIL ONE ×2 (09:12→09:14)
--- NOTE | 2022-12-25 11:46 | Nephrology Progress Note ---
Date of Service December 25, 2022 Assessment & Plan Admission and Anticipated Discharge Date Admission Date: December 09, 2022 Subjective Assessment & Plan (1) SAMMY (acute kidney injury): Plan: baseline creatinine 0.8; dialysis dependent oligoanuric stage 3 SAMMY ischemic ATN multifactorial initially including IV contrast, poor po intake prior to admission (presenting s.g. on UA > 1045), continued losartan in setting of above (last dose 12/11), sepsis from pancreatitis/cholecystitis, then compounded by poor renal perfusion w/ pAF and hypotension for several days thoug h this instability resolved by December 13 for the most part. ATN did not resolve/worsened w/ ongoing sepsis; first HD 12/18; TDC on 12/22 continue strict I/O and daily bmp to monitor for renal recovery. increase in UOP is promising No need for renal diet for now Tolerated HD 12/24 with 1.9 L UF Dialysis again later today if the CVC works otherwise might have to postpone till sun. lasix 100 iv x 1 today if unable to do dialysis. Subjective Urine output slightly picking up. TOOLING MANAGER evaluated the patient and considers the bleeding related to minor urethral tear with Tomlinson. Cath did not work at all earlier today so got tPA and now waiting with instilattion. Feels weak but no new issues. Review of Systems Review of Systems: All systems reviewed & are unremarkable except as noted in Subjective Physical Exam Constitutional: well developed and well nourished; no acute distress Eyes: EOM intact bilaterally ENMT: Ears: no external ear abnormality Nose: no external nose abnormality Mouth: + dry oral mucous membranes Neck: no nuchal rigidity Respiratory: normal respiratory effort and + paradoxical thoraco-abdominal movement; no respiratory distress Auscultation: + diminished lung sounds (markedly) Cardiovascular: Rate/Rhythm: regular rate and regular rhythm Extremities: + edema (1-2+ distally) Gastrointestinal (Abdomen): Inspection/Auscultation: normal bowel sounds; + abdomen abnormal to inspection (Right upper quadrant drain) Percussion/Palpation: abdomen soft; abdomen nontender Musculoskeletal: Extremities: + abnormal strength (cannot situp w/o asst; BLE weak) Skin: no rashes, warm and dry Psychiatric: Orientation: alert, oriented x 3, oriented to person and cooperative Results & Data Vital Signs (Past 12 Hours) Vital Signs Temp Pulse Pulse Resp BP Pulse Ox O2 Del Method 12/25/22 11:23 36.9 C 93 H 16 145/80 H 94 Room Air 12/25/22 09:36 92 H 12/25/22 08:40 Room Air 12/25/22 07:45 36.4 C L 90 16 133/74 94 Room Air 12/25/22 03:51 36.6 C 96 H 20 155/85 H 92 Room Air 12/25/22 00:00 92 H
--- NOTE | 2022-12-25 13:22 | Surgery Progress Note ---
Date of Service December 25, 2022 Assessment & Plan (1) Bile leak from gallbladder bed: Plan: Status post laparoscopic cholecystectomy on 12/10/2022 Tolerating diet Will d/c skin sutures today XI to remain in place Admission and Anticipated Discharge Date Admission Date: December 09, 2022 Supervising Physician Co-Signing Physician Notes pnt S&E, agree with above. s/p lap adele and ercp, bile leak. doing well, no issues. incisions w/o infection. xi bilious. labs stable. continue current management. remove sutures. Dr. Whittaker returning tomorrow. Subjective Patient resting in dialysis. Tolerating diet. No pain in abdomen. no other complaints. Physical Exam Physical Exam: resting with eyes closed in dialysis unit Gastrointestinal (Abdomen): Inspection/Auscultation: + abdominal surgical incision (c/d/i with sutures) Percussion/Palpation: abdomen soft; abdomen nontender XI drain in place Results & Data Vital Signs (Past 12 Hours) Vital Signs Temp Pulse Pulse Resp BP Pulse Ox O2 Del Method 12/25/22 11:23 36.9 C 93 H 16 145/80 H 94 Room Air 12/25/22 09:36 92 H 12/25/22 08:40 Room Air 12/25/22 07:45 36.4 C L 90 16 133/74 94 Room Air 12/25/22 03:51 36.6 C 96 H 20 155/85 H 92 Room Air PG Care Time/CCT Total # of Minutes Spent Total Time Spent with Patient: Total time spent is greater than 50% in coordination of care (as documented) at patient's floor/unit and/or counseling patient: Coding Level of Care Code 14783 Post Operative Follow-Up Diagnoses Bile leak from gallbladder bed K83.8
[2022-12-25] MEDS ORDERED: SODIUM CHLORIDE 0.9% 1000ML 1,000 ML IV PRN (13:42)
[2022-12-25] MEDS ORDERED: HEPARIN SOD (PORCINE) 1000 UNIT/ML IV SCH (14:00)
[2022-12-25] MEDS: CASPOFUNGIN 50 MG in SODIUM CHLORIDE 0.9% 250 ML IV SCH (18:42)
[2022-12-25] MEDS: CETIRIZINE HCL 10 MG TABLET PO SCH (20:19)
--- NOTE | 2022-12-25 22:10 | Hospitalist Progress Note ---
Date of Service December 25, 2022 Assessment & Plan (1) Acute pancreatitis: (2) Nausea and vomiting: Plan: Possible related togallstone related pancreatitis Present on admission with abdominal pain that radiating to back associating with vomiting and nausea CT abd/pel showedperipancreatic fat stranding is seen concerning for pancreatitis. Prominence of the gallbladder may be reactive or less likely may represent acute cholecystitis. Abdomen u/s showedgallbladder is distended and full of stones/sludge as detailed above. Findings are suspicious for acute cholecystitis. Lipase above 4000's on admission, Lipase 2960--> then 678-->63 Elevated LFT with AST 313 and ALT 536 S/p Lap chol and ERCPwith sphincterotomy and balloon sweeping of the bile duct for stones and puswith stent placement on 12/10/22 CT abd/P on 12/17/22 noted severe pancreatitis similar to prior study, small amount of perihepatic fluid/small amount of pneumoperitoneum, subhepatic catheter unchanged in position, CBD stent with associated pneumobilia, small b/l pleural effusion, unchanged airspace opacities in the lungs. Septic shock Persistent leukocytosis WBC peaked 30.7, then continue to drop to 12K today Completed IV Zosyn course Currently on caspofungin, will complete 7 days course tomorrow Blood and urine culture were negative She has been off pressor since yesterday morning Fungal blood cx no growth MIMI drain fluid culture negative so far Acute cholangitis Transaminitis LFTs normalized. Hgb is 10.5 today Gen surg board S/p Lap chol and ERCPwith sphincterotomy and balloon sweeping of the bile duct for stones and puswith stent placement LFT continue trending down with AST 31, ALT 119 and Alk 104 WBC 22.3 K today Gastro and surgery on board Currently on IV Zosyn Will need repeat ERCP in 2 month for stent removal Surgery recommended to keep catalan MIMI drain Acute respiratory failure with hypoxia Likely from dependent atelectasis Continue to encourage incentive spirometry and flutter O2 supplementation to keep oxygen saturation between 88-92% Wean off oxygen as tolerated Saturated well on RA Paroxysmal Afib Telemonitor showed NSR ECHO showed normal LV wall function. EF 65 to 70 % Cardiology on board No anticoagulant for now considering comorbidities: severe pancreatitis/risk of hemorrhagic pancreatitis, recent surgery Continue metoprolol and amiodarone PO SAMMY Worsening renal function. Creatinine increased upto 8.38, BUN 110 on 12/18/22 Patient transferred to ICU on 12/18/22 and started on HD same day Cr is 4.01 today, BUN is 49 Development System Efficiency Manager on board She was planning to get dialysis today, but catheter was not working. Vascular surgery on board Plan to HD today since dialysis cath was not able to work yesterday Avoid nephrotoxic agents Vaginal bleeding possible related to urethral trauma from the catheter. No blood seen in the urine from the catalan cath Hgb stable Continue to hold subq heparin REGULATORY AGENCY DIRECTOR on board clinically stable Generalized weakness Continue PT/OT eval Fall precaution Pt would like to keep the catalan cath for now and once she gets stronger to remove it Will need rehab placement Prediabetes Recent Hba1c 6.1 on 12/10/22 Continue monitor BS Hypertension BP elevated Will consider to start on BP med if continues to be elevated Continue monitor BP Hyperthyroidism Continue Methimazole Anxiety Continue Sertraline Code status full code DVT px SCD for now Hold heparin subq due to vaginal bleeding Updated daughter who was at bedside Continue PT/OT I spent a total of 45 minutes coordinating, documenting and providing care for this patient excluding time spent in performance of separately billed services Admission and Anticipated Discharge Date Admission Date: December 09, 2022 Subjective Pt was seen and examined for follow up Lying in bed with no acute distress She is getting HD currently She said that she feels slightly better today She had therapy today and she was very weak Denies any chest pain, palpitation, dizziness and SOB Review of Systems Review of Systems: All systems reviewed & are unremarkable except as noted in Subjective Physical Exam Physical Exam: General- No acute distress Head- atraumatic Eyes- PERRL, EOMI, ENT- oropharynx clear Neck- supple, no JVD Lungs- +diminished BS Heart- Regular, no murmur Abdomen- normal bowel sounds, soft, +tender Extremities- no calf tenderness, +edema Neuro- alert, oriented x 3; PERRL, EOMI; no facial palsy; no dysarthria Skin- warm & dry Results & Data Results & Data Vital Signs (Past 12 Hours) Vital Signs Temp Pulse Pulse Resp BP BP Pulse Ox 12/25/22 15:45 36.8 C 97 H 140/77 12/25/22 19:10 36.5 C 100 H 16 136/70 92 12/25/22 16:03 36.7 C 105 H 18 114/71 94 12/25/22 15:00 94 H 125/83 12/25/22 14:30 91 H 128/75 12/25/22 14:00 90 141/82 H 12/25/22 13:30 88 139/77 12/25/22 13:00 89 158/79 H 12/25/22 12:34 88 158/79 H 12/25/22 12:16 36.7 C 88 12/25/22 11:23 36.9 C 93 H 16 145/80 H 94 O2 Del Method 12/25/22 15:45 12/25/22 19:10 Room Air 12/25/22 16:03 Room Air 12/25/22 15:00 12/25/22 14:30 12/25/22 14:00 12/25/22 13:30 12/25/22 13:00 12/25/22 12:34 12/25/22 12:16 12/25/22 11:23 Room Air (1) Acute pancreatitis Acute pancreatitis complication: unspecified Pancreatitis type: unspecified pancreatitis type Qualified Code(s): K85.90 - Acute pancreatitis without necrosis or infection, unspecified (2) Nausea and vomiting Vomiting type: unspecified Qualified Code(s): R11.2 - Nausea with vomiting, unspecified
--- NOTE | 2022-12-26 06:51 | Surgery Progress Note ---
Date of Service December 26, 2022 Assessment & Plan (1) Bile leak from gallbladder bed: Plan: 12/26/22 POD#15 status post laparoscopic cholecystectomy ERCP Overall she appears to doing better she is tolerating a diet she is moving her bowels minimal drainage from Yosef-Flower and we will leave that in for now Patient Status post laparoscopic cholecystectomy on 12/10/2022 Tolerating diet Will d/c skin sutures today MIMI to remain in place Admission and Anticipated Discharge Date Admission Date: December 09, 2022 Subjective Complaining that she is not getting any better She is able to tolerate a diet although does not remember what she ate yesterday Once her bowels to move although she had a bowel movement yesterday Physical Exam Physical Exam: Alert coherent responds appropriately to questions appears very comfortable Oropharyngeal area moist The abdomen is soft no tenderness Yosef-Flower drainage subhepatic minimal drainage dark very slight blood-tinged and bilious Results & Data Vital Signs (Past 12 Hours) Vital Signs Temp Pulse Pulse Pulse Resp BP Pulse Ox 12/26/22 03:32 37.3 C 96 H 16 146/74 H 93 12/25/22 22:01 92 H 12/25/22 23:08 36.9 C 91 H 16 136/75 92 12/25/22 19:10 36.5 C 100 H 16 136/70 92 O2 Del Method 12/26/22 03:32 Room Air 12/25/22 22:01 12/25/22 23:08 Room Air 12/25/22 19:10 Room Air
[2022-12-26] MEDS ORDERED: INSULIN ASPART PER UNIT CHARGE SC ONE (07:21)
[2022-12-26] MEDS: CALCIUM CARBONATE 1,250 MG/5 ML UDC PO SCH ×2 (09:05→21:17)
[2022-12-26] MEDS: METOPROLOL SUCC 25MG EXT REL TAB PO SCH ×3 (09:05→21:20)
[2022-12-26] MEDS: INSULIN ASPART PER UNIT CHARGE SC SCH ×4 (09:05→20:40)
[2022-12-26] MEDS: AMIODARONE 200 MG TAB PO SCH ×2 (09:05→21:17)
[2022-12-26] MEDS: methIMAzole 5 MG TABLET PO SCH (09:06)
[2022-12-26] MEDS: FLUTICASONE PROPIONATE NA SPR 16 GM BTL NAE SCH (09:06)
[2022-12-26] MEDS: SERTRALINE HCL 50 MG TABLET PO SCH (09:06)
[2022-12-26] MEDS: DOCUSATE SODIUM/SENNA 50/8.6MG TAB PO SCH ×2 (09:08→21:17)
--- NOTE | 2022-12-26 10:00 | Surgery Progress Note ---
Date of Service December 26, 2022 Assessment & Plan (1) Bile leak from gallbladder bed: Plan: Patient status post laparoscopic cholecystectomy with severely necrotic gallbladder And severe inflammation and scar tissue in the tima hepatis requiring subtotal cholecystectomy Drain has 2 to 5 cc drainage per day which may be bile stained Plan to leave the drain until likely after her stent removal although may remove sooner but will likely stay For at least 4 to 6 weeks Patient advancing her diet On hemodialysis with some urine output in her Tomlinson which is clear yellow Plan apparently is discharge for rehab when medically stable Admission and Anticipated Discharge Date Admission Date: December 09, 2022 Results & Data Vital Signs (Past 12 Hours) Vital Signs Temp Pulse Pulse Resp BP Pulse Ox O2 Del Method 12/26/22 08:00 100 H 12/26/22 08:04 36.4 C L 94 H 19 152/87 H 95 Room Air 12/26/22 03:32 37.3 C 96 H 16 146/74 H 93 Room Air 12/25/22 22:01 92 H 12/25/22 23:08 36.9 C 91 H 16 136/75 92 Room Air PG Care Time/CCT Total # of Minutes Spent Total Time Spent with Patient: Total time spent is greater than 50% in coordination of care (as documented) at patient's floor/unit and/or counseling patient: Coding Level of Care Code None Diagnoses Bile leak from gallbladder bed K83.8
--- NOTE | 2022-12-26 10:46 | Nephrology Progress Note ---
Date of Service December 26, 2022 Assessment & Plan Admission and Anticipated Discharge Date Admission Date: December 09, 2022 Subjective Assessment & Plan (1) SAMMY (acute kidney injury): Plan: baseline creatinine 0.8; dialysis dependent oligoanuric stage 3 SAMMY ischemic ATN multifactorial initially including IV contrast, poor po intake prior to admission (presenting s.g. on UA > 1045), continued losartan in setting of above (last dose 12/11), sepsis from pancreatitis/cholecystitis, then compounded by poor renal perfusion w/ pAF and hypotension for several days thoug h this instability resolved by December 13 for the most part. ATN did not resolve/worsened w/ ongoing sepsis; first HD 12/18; TDC on 12/22 continue strict I/O and daily bmp to monitor for renal recovery. increase in UOP is promising No need for renal diet for now No dialysis today tentative plan for dialysis tomorrow. ? whether the CVC will work. needs BMP daily so will order one for today. lasix 100 mg iv x 1 as trial today for urine output Subjective Urine output slightly picking up.had dialysis yesterday and the cath did work after the tpa. Feels weak but no new issues. Review of Systems Review of Systems: All systems reviewed & are unremarkable except as noted in Subjective Physical Exam Constitutional: well developed and well nourished; no acute distress Eyes: EOM intact bilaterally ENMT: Ears: no external ear abnormality Nose: no external nose abnormality Mouth: + dry oral mucous membranes Neck: no nuchal rigidity Respiratory: normal respiratory effort and + paradoxical thoraco-abdominal movement; no respiratory distress Auscultation: + diminished lung sounds (markedly) Cardiovascular: Rate/Rhythm: regular rate and regular rhythm Extremities: + edema (1-2+ distally) Gastrointestinal (Abdomen): Inspection/Auscultation: normal bowel sounds; + abdomen abnormal to inspection (Right upper quadrant drain) Percussion/Palpation: abdomen soft; abdomen nontender Musculoskeletal: Extremities: + abnormal strength (cannot situp w/o asst; BLE weak) Skin: no rashes, warm and dry Psychiatric: Orientation: alert, oriented x 3, oriented to person and cooperative Results & Data Vital Signs (Past 12 Hours) Vital Signs Temp Pulse Pulse Resp BP Pulse Ox O2 Del Method 12/26/22 10:09 Room Air 12/26/22 08:00 100 H 12/26/22 08:04 36.4 C L 94 H 19 152/87 H 95 Room Air 12/26/22 03:32 37.3 C 96 H 16 146/74 H 93 Room Air 12/25/22 23:08 36.9 C 91 H 16 136/75 92 Room Air
[2022-12-26] MEDS ORDERED: FUROSEMIDE 10 MG/ML 10 ML VIAL IV ONE (11:15)
[2022-12-26 12:45] LABS: BUN Creatinine Ratio 10.4 (10-20); Calcium 7.9 mg/dl (8.6-10.3); Creatinine Clr Calc Pharmacy 16.6 ml/min; Est GFR (African American) 14.5 ml/min; Est GFR (Non-African American) 12.5 ml/min; Potassium 3.6 mmol/L (3.5-5.1)
[2022-12-26] MEDS ORDERED: METOPROLOL TARTRATE 1 MG/ML VIAL IV STA ×2 (14:16→16:41)
[2022-12-26] MEDS ORDERED: ACETAMINOPHEN 1,000 MG/100 ML VIAL IV STA (14:17)
--- NOTE | 2022-12-26 17:07 | Hospitalist Progress Note ---
Date of Service December 26, 2022 Assessment & Plan (1) Acute pancreatitis: (2) Nausea and vomiting: Plan: Possible related togallstone related pancreatitis Present on admission with abdominal pain that radiating to back associating with vomiting and nausea CT abd/pel showedperipancreatic fat stranding is seen concerning for pancreatitis. Prominence of the gallbladder may be reactive or less likely may represent acute cholecystitis. Abdomen u/s showedgallbladder is distended and full of stones/sludge as detailed above. Findings are suspicious for acute cholecystitis. Lipase above 4000's on admission, Lipase 2960--> then 678-->63 Elevated LFT with AST 313 and ALT 536 S/p Lap chol and ERCPwith sphincterotomy and balloon sweeping of the bile duct for stones and puswith stent placement on 12/10/22 CT abd/P on 12/17/22 noted severe pancreatitis similar to prior study, small amount of perihepatic fluid/small amount of pneumoperitoneum, subhepatic catheter unchanged in position, CBD stent with associated pneumobilia, small b/l pleural effusion, unchanged airspace opacities in the lungs. LFT normalized Tolerated diet Clinically improved significantly Septic shock she was in the ICU on IV pressor Persistent leukocytosis WBC peaked 30.7, then continue to drop to 12K Blood culture, urine culture, fungal culture are negative Completed IV Zosyn course DC caspofungin today since patient completed 7 days course Blood and urine culture were negative MIMI drain fluid culture negative so far Acute cholangitis Transaminitis LFTs normalized. Hgb is 9.6 today Gen surg board S/p Lap chol and ERCPwith sphincterotomy and balloon sweeping of the bile duct for stones and puswith stent placement LFT continue trending down with AST 31, ALT 119 and Alk 104 WBC continue trending down Gastro and surgery on board Completed the course of Zosyn Will need repeat ERCP in 2 month for stent removal Surgery on board Plan to leave the drain until likely after her stent removal although may remove sooner but will likely stay for at least 4 to 6 weeks Acute respiratory failure with hypoxia Likely from dependent atelectasis Continue to encourage incentive spirometry and flutter O2 supplementation to keep oxygen saturation between 88-92% Wean off oxygen as tolerated Saturated well on RA Paroxysmal Afib Telemonitor showed Afib this morning ECHO showed normal LV wall function. EF 65 to 70 % Cardiology on board No anticoagulant for now considering comorbidities: severe pancreatitis/risk of hemorrhagic pancreatitis, recent surgery Continue metoprolol and amiodarone PO Cardiology was notified today about pt was back to afib Lopressor 5mg IV x1 given Will check electrolytes SAMMY Worsening renal function. Creatinine increased upto 8.38, BUN 110 on 12/18/22 Patient transferred to ICU on 12/18/22 and started on HD same day Cr is 3.45 today, BUN is 36 Education Department Chair on board Last HD was yesterday. Plan to HD tomorrow if needed Avoid nephrotoxic agents Vaginal bleeding possible related to urethral trauma from the catheter. No blood seen in the urine from the catalan cath Hgb 9.6 today Continue to hold subq heparin NURSING TEACHER consulted (see consult) clinically stable Generalized weakness Continue PT/OT eval Fall precaution Pt would like to keep the catalan cath for now and once she gets stronger to remove it Will need rehab placement Prediabetes Recent Hba1c 6.1 on 12/10/22 Continue monitor BS Hypertension BP elevated Will consider to start on BP med if continues to be elevated Continue monitor BP Hyperthyroidism Continue Methimazole Anxiety Continue Sertraline Code status full code DVT px SCD for now Hold heparin subq due to vaginal bleeding Updated significant other and family member at bedside Continue PT/OT I spent a total of 40 minutes coordinating, documenting and providing care for this patient excluding time spent in performance of separately billed services Admission and Anticipated Discharge Date Admission Date: December 09, 2022 Subjective Pt was seen and examined for follow up Lying in bed with no acute distress with significant other and a family member at bedside She looks more awake today and interact today She said that she continues to feel better She said that she continues to feels weak during therapy She would like to keep the catalan cath for few more days until she gets a little stronger Denies any chest pain, palpitation, dizziness and SOB Review of Systems Review of Systems: All systems reviewed & are unremarkable except as noted in Subjective Physical Exam Physical Exam: General- No acute distress Head- atraumatic Eyes- PERRL, EOMI, ENT- oropharynx clear Neck- supple, no JVD Lungs- +diminished BS Heart- irregular, no murmur Abdomen- normal bowel sounds, soft, +tender Extremities- no calf tenderness, +edema Neuro- alert, oriented x 3; PERRL, EOMI; no facial palsy; no dysarthria Skin- warm & dry Results & Data Results & Data Vital Signs (Past 12 Hours) Vital Signs Temp Pulse Pulse Resp BP BP Pulse Ox 12/26/22 16:46 124 H 12/26/22 16:02 36.5 C 109 H 18 126/78 93 12/26/22 15:53 115 H 12/26/22 14:54 93 12/26/22 14:22 131 H 112/74 12/26/22 14:11 36.4 C L 131 H 16 112/74 93 12/26/22 10:09 12/26/22 08:00 100 H 12/26/22 08:04 36.4 C L 94 H 19 152/87 H 95 O2 Del Method 12/26/22 16:46 12/26/22 16:02 Room Air 12/26/22 15:53 12/26/22 14:54 12/26/22 14:22 12/26/22 14:11 Room Air 12/26/22 10:09 Room Air 12/26/22 08:00 12/26/22 08:04 Room Air (1) Acute pancreatitis Acute pancreatitis complication: unspecified Pancreatitis type: unspecified pancreatitis type Qualified Code(s): K85.90 - Acute pancreatitis without necrosis or infection, unspecified (2) Nausea and vomiting Vomiting type: unspecified Qualified Code(s): R11.2 - Nausea with vomiting, unspecified
[2022-12-26] MEDS: CASPOFUNGIN 50 MG in SODIUM CHLORIDE 0.9% 250 ML IV SCH (17:56)
--- NOTE | 2022-12-26 19:21 | XRay Report ---
SINGLE VIEW CHEST CLINICAL HISTORY: Dyspnea. FINDINGS: An AP, portable, upright chest radiograph is compared to study dated 12/18/2022. A right int ernal jugular central venous catheter is unchanged in position. The cardiomediastinal silhouette is u nremarkable. There are low lung volumes with dependent atelectasis. No airspace consolidation, large pleural effusion, or pneumothorax is seen. The skeletal structures are osteopenic. The bony thorax is grossly intact. A common bile duct stent projects over the right upper quadrant. IMPRESSION: Low lung volumes with no acute cardiopulmonary abnormality identified. ACT 112: Negative or not required by law. Electronically signed by: Chidi Garay M.D. 12/26/2022 7:19 PM
[2022-12-26 20:01] LABS: Hematocrit (blood only) 28.5 % (37.0-47.0); Hemoglobin 9.6 g/dl (12.0-16.0)
[2022-12-26 20:52] LABS: Magnesium 1.8 mg/dl (1.7-2.4); Potassium 3.6 mmol/L (3.5-5.1)
[2022-12-26] MEDS: ACETAMINOPHEN 325 MG TAB PO PRN (23:30)
[2022-12-26] MEDS: MELATONIN 3 MG TAB PO PRN (23:32)
[2022-12-27 07:02] LABS: Basophils # (auto) 0.09 K/uL (0-0.2); Basophils % (auto) 0.9 %; Eosinophils # (auto) 0.52 K/uL (0-0.50); Eosinophils % (auto) 5.2 %; Hematocrit (blood only) 28.8 % (37.0-47.0); Hemoglobin 9.5 g/dl (12.0-16.0); Immature Granulocytes # (auto) 0.06 K/uL (0.01-0.20); Immature Granulocytes % (auto) 0.6 %; Lymphocytes # (auto) 2.45 K/uL (1.2-3.4); Lymphocytes % (auto) 24.3 %; Mean Corpuscular Hemoglobin 29.4 pg (25.0-34.0); Mean Corpuscular Volume 89.2 fL (80.0-100.0); Monocytes # (auto) 1.29 K/uL (0.11-0.59); Monocytes % (auto) 12.8 %; Neutrophils # (auto) 5.67 K/uL (1.40-6.50); Neutrophils % (auto) 56.2 %; Platelet Count 218 K/uL (130-400); RDW Standard Deviation 48.4 fL (36.4-46.3); Red Blood Count 3.23 M/uL (4.20-5.40); White Blood Count 10.08 K/ul (4.8-10.8)
[2022-12-27 07:28] LABS: BUN Creatinine Ratio 11.2 (10-20); Calcium 7.7 mg/dl (8.6-10.3); Est GFR (African American) 11.8 ml/min; Est GFR (Non-African American) 10.1 ml/min; Magnesium 1.9 mg/dl (1.7-2.4); Phosphorus 4.8 mg/dl (2.5-4.9); Potassium 3.7 mmol/L (3.5-5.1)
--- NOTE | 2022-12-27 08:04 | Surgery Progress Note ---
Date of Service December 27, 2022 Assessment & Plan (1) Hx laparoscopic cholecystectomy: Plan: No changes in plan for management of MIMI drain We will follow-up in the office in 2 to 3 weeks Continue to monitor her hospital progress Admission and Anticipated Discharge Date Admission Date: December 09, 2022 Results & Data Vital Signs (Past 12 Hours) Vital Signs Temp Pulse Pulse Pulse Resp BP Pulse Ox 12/27/22 07:01 36.6 C 80 18 150/79 H 96 12/26/22 22:00 97 H 12/27/22 03:56 36.3 C L 78 18 136/79 96 12/26/22 23:46 36.3 C L 89 18 135/86 97 O2 Del Method O2 Flow Rate 12/27/22 07:01 Nasal Cannula 2 12/26/22 22:00 12/27/22 03:56 Nasal Cannula 2 12/26/22 23:46 Nasal Cannula 2 PG Care Time/CCT Total # of Minutes Spent Total Time Spent with Patient: Total time spent is greater than 50% in coordination of care (as documented) at patient's floor/unit and/or counseling patient: Coding Level of Care Code 18437 Post Operative Follow-Up Diagnoses Hx laparoscopic cholecystectomy Z90.49
[2022-12-27] MEDS: INSULIN ASPART PER UNIT CHARGE SC SCH ×4 (08:09→21:08)
[2022-12-27] MEDS ORDERED: ALTEPLASE, RECOMBINANT 1 MG/ML 2ML VIAL INSTIL ONE ×2 (08:18→08:19)
[2022-12-27] MEDS: AMIODARONE 200 MG TAB PO SCH ×2 (08:57→21:00)
[2022-12-27] MEDS: FLUTICASONE PROPIONATE NA SPR 16 GM BTL NAE SCH (08:57)
[2022-12-27] MEDS: CALCIUM CARBONATE 1,250 MG/5 ML UDC PO SCH ×2 (08:57→20:59)
[2022-12-27] MEDS: methIMAzole 5 MG TABLET PO SCH (08:57)
[2022-12-27] MEDS: SERTRALINE HCL 50 MG TABLET PO SCH (08:57)
[2022-12-27] MEDS: DOCUSATE SODIUM/SENNA 50/8.6MG TAB PO SCH ×2 (08:57→21:04)
[2022-12-27] MEDS: METOPROLOL SUCC 25MG EXT REL TAB PO SCH (08:57)
--- NOTE | 2022-12-27 11:22 | Dialysis Progress Note ---
Date of Service December 27, 2022 Assessment & Plan Admission and Anticipated Discharge Date Admission Date: December 09, 2022 Subjective Assessment & Plan (1) SAMMY (acute kidney injury): Plan: baseline creatinine 0.8; dialysis dependent oligoanuric stage 3 SAMMY ischemic ATN multifactorial initially including IV contrast, poor po intake prior to admission (presenting s.g. on UA > 1045), continued losartan in setting of above (last dose 12/11), sepsis from pancreatitis/cholecystitis, then compounded by poor renal perfusion w/ pAF and hypotension for several days thoug h this instability resolved by December 13 for the most part. ATN did not resolve/worsened w/ ongoing sepsis; first HD 12/18; TDC on 12/22 continue strict I/O and daily bmp to monitor for renal recovery. No need for renal diet for now Dialysis today as ordered. 2k and take 2-2.5 kilo off. CVC seems to have clot every time and works after the tpa. Same thing happened both sunday and sunday. So even putting new Catheter is not going to work. Urine output did not change yesterday with lasix 100 iv so not so encouraging news for renal recovery. however we cannot use tpa(alteplase ) in the rehab hospital. Would not want her transfer for now given this issue. Will raise the heparin to 2000 bolus and 500 per hr maintenance. Subjective See in Dialysis. tolerating fine. CVC worked after the Alteplase. Feels weak but no new issues. Review of Systems Review of Systems: All systems reviewed & are unremarkable except as noted in Subjective Physical Exam Constitutional: well developed and well nourished; no acute distress Eyes: EOM intact bilaterally ENMT: Ears: no external ear abnormality Nose: no external nose abnormality Mouth: + dry oral mucous membranes Neck: no nuchal rigidity Respiratory: normal respiratory effort and + paradoxical thoraco-abdominal movement; no respiratory distress Auscultation: + diminished lung sounds (markedly) Cardiovascular: Rate/Rhythm: regular rate and regular rhythm Extremities: + edema (1-2+ distally) Gastrointestinal (Abdomen): Inspection/Auscultation: normal bowel sounds; + abdomen abnormal to inspection (Right upper quadrant drain) Percussion/Palpation: abdomen soft; abdomen nontender Musculoskeletal: Extremities: + abnormal strength (cannot situp w/o asst; BLE weak) Skin: no rashes, warm and dry Psychiatric: Orientation: alert, oriented x 3, oriented to person and cooperative Results & Data Vital Signs (Past 12 Hours) Vital Signs Temp Pulse Pulse Pulse Resp BP BP 12/27/22 10:30 77 139/71 12/27/22 10:17 36.4 C L 77 12/27/22 08:00 80 12/27/22 07:01 36.6 C 80 18 150/79 H 12/27/22 03:56 36.3 C L 78 18 136/79 12/26/22 23:46 36.3 C L 89 18 135/86 Pulse Ox O2 Del Method O2 Flow Rate 12/27/22 10:30 12/27/22 10:17 12/27/22 08:00 12/27/22 07:01 96 Nasal Cannula 2 12/27/22 03:56 96 Nasal Cannula 2 12/26/22 23:46 97 Nasal Cannula 2
--- NOTE | 2022-12-27 11:30 | Hospitalist Progress Note ---
Date of Service December 27, 2022 Assessment & Plan (1) Acute pancreatitis: (2) Nausea and vomiting: Plan: Possible related togallstone related pancreatitis Present on admission with abdominal pain that radiating to back associating with vomiting and nausea CT abd/pel showedperipancreatic fat stranding is seen concerning for pancreatitis. Prominence of the gallbladder may be reactive or less likely may represent acute cholecystitis. Abdomen u/s showedgallbladder is distended and full of stones/sludge as detailed above. Findings are suspicious for acute cholecystitis. Lipase above 4000's on admission, Lipase 2960--> then 678-->63 Elevated LFT with AST 313 and ALT 536 S/p Lap chol and ERCPwith sphincterotomy and balloon sweeping of the bile duct for stones and puswith stent placement on 12/10/22 CT abd/P on 12/17/22 noted severe pancreatitis similar to prior study, small amount of perihepatic fluid/small amount of pneumoperitoneum, subhepatic catheter unchanged in position, CBD stent with associated pneumobilia, small b/l pleural effusion, unchanged airspace opacities in the lungs. LFT normalized Tolerated diet Clinically improved significantly Septic shock she was in the ICU on IV pressor Persistent leukocytosis WBC peaked 30.7, then continue to drop to 12K , now normalized to 10K Blood culture, urine culture, fungal culture are negative Completed IV Zosyn course DC caspofungin on 12/26 since patient completed 7 days course Blood and urine culture were negative MIMI drain fluid culture negative so far Acute cholangitis Transaminitis LFTs normalized. Hgb is 9.5 today Gen surg consulted and following S/p Lap chol and ERCPwith sphincterotomy and balloon sweeping of the bile duct for stones and puswith stent placement LFT continue trending down with AST 31, ALT 119 and Alk 104 WBC continue trending down , now normalized Gastro and surgery on board Completed the course of Zosyn Will need repeat ERCP in 2 month for stent removal Plan to leave the drain until likely after her stent removal although may remove sooner but will likely stay for at least 4 to 6 weeks Acute respiratory failure with hypoxia Likely from dependent atelectasis Continue to encourage incentive spirometry and flutter O2 supplementation to keep oxygen saturation between 88-92% Wean off oxygen as tolerated Saturated well on RA Paroxysmal Afib Telemonitor showed Afib yesterday morning ECHO showed normal LV wall function. EF 65 to 70 % Cardiology consulted No anticoagulant for now considering comorbidities: severe pancreatitis/risk of hemorrhagic pancreatitis, recent surgery Continue metoprolol and amiodarone PO Cardiology was notified about pt was back to afib Lopressor 5mg IV x1 given yesterday Monitor and replace electrolytes SAMMY Worsening renal function. Creatinine increased up to 8.38, BUN 110 on 12/18/22 Patient transferred to ICU on 12/18/22 and started on HD same day Labeling Associate on board Possible HD today if needed Avoid nephrotoxic agents Monitor renal fuction, BMP ? Vaginal bleeding possible related to urethral trauma from the catheter. No blood seen in the urine from the catalan cath Hgb 9.5 today Continue to hold subq heparin RUBBER PRINTING MACHINE OPERATOR consulted (see consult) clinically stable Generalized weakness Continue PT/OT eval Fall precaution Pt would like to keep the catalan cath for now and once she gets stronger to remove it Will need rehab placement Prediabetes Recent Hba1c 6.1 on 12/10/22 Continue monitor BS Hypertension BP 139/71 now Will consider to start on BP med if continues to be elevated Continue monitor BP Hyperthyroidism Continue Methimazole Anxiety Continue Sertraline Code status full code DVT px SCD for now Hold heparin subq due to poss. vaginal bleeding Updated significant other at the bedside Continue PT/OT Admission and Anticipated Discharge Date Admission Date: December 09, 2022 Subjective Pt was seen in follow up of complicated hosp. stay, s/p ercp, s/p cholecystectomy, now on HD Pt's boyfriend present at the bedside and updated Pt is lying in bed in no acute distress PT also present at the bedside Pt reports feeling somewhat better however still quite weak and tired She would like to keep the catalan cath for few more days until she gets a little stronger Denies any fever chills, chest pain, palpitation, shortness of breath. Reports minimal abdominal discomfort. Eats very little per partner at the bedside. Review of Systems Review of Systems: All systems reviewed & are unremarkable except as noted in Subjective Physical Exam Physical Exam: General- WD/WN F, frail, in NAD, appears weak and tired Head- atraumatic Eyes- PERRL, EOMI, ENT- oropharynx clear Neck- supple, no JVD Lungs- +diminished BS Heart- irregular, no murmur Abdomen- normal bowel sounds, soft, +mildly tender to palp. Extremities- +edema, moves extremities Neuro- alert, oriented x 3; PERRL, EOMI; no facial palsy; no dysarthria, moves extremities Skin- warm & dry Results & Data Results & Data Vital Signs (Past 12 Hours) Vital Signs Temp Pulse Pulse Pulse Resp BP BP 12/27/22 10:30 77 139/71 12/27/22 10:17 36.4 C L 77 12/27/22 08:00 80 12/27/22 07:01 36.6 C 80 18 150/79 H 12/27/22 03:56 36.3 C L 78 18 136/79 12/26/22 23:46 36.3 C L 89 18 135/86 Pulse Ox O2 Del Method O2 Flow Rate 12/27/22 10:30 12/27/22 10:17 12/27/22 08:00 12/27/22 07:01 96 Nasal Cannula 2 12/27/22 03:56 96 Nasal Cannula 2 12/26/22 23:46 97 Nasal Cannula 2 Laboratory Results 12/27/22 12/27/22 12/27/22 Range/Units 07:26 06:34 06:34 WBC 10.08 (4.8-10.8) K/ul RBC 3.23 L (4.20-5.40) M/uL Hgb 9.5 L (12.0-16.0) g/dl Hct 28.8 L (37.0-47.0) % MCV 89.2 (80.0-100.0) fL MCH 29.4 (25.0-34.0) pg MCHC 33.0 (32.0-36.0) g/dL RDW Std Deviation 48.4 H (36.4-46.3) fL RDW Coeff of Mandy 15.0 H (11.5-14.5) % Plt Count 218 (130-400) K/uL MPV 10.0 (9.4-12.4) fL Immature Gran % (Auto) 0.6 % Neut % (Auto) 56.2 % Lymph % (Auto) 24.3 % Crowley % (Auto) 12.8 % Eos % (Auto) 5.2 % Baso % (Auto) 0.9 % Neut # (Auto) 5.67 (1.40-6.50) K/uL Lymph # (Auto) 2.45 (1.2-3.4) K/uL Crowley # (Auto) 1.29 H (0.11-0.59) K/uL Eos # (Auto) 0.52 H (0-0.50) K/uL Baso # (Auto) 0.09 (0-0.2) K/uL Immature Gran # (Auto) 0.06 (0.01-0.20) K/uL Sodium 138 (136-145) mmol/L Potassium 3.7 (3.5-5.1) mmol/L Chloride 104 (98-107) mmol/L Carbon Dioxide 24 (21-32) mmol/L Anion Gap 10 (3-11) BUN 46 H (6-23) mg/dl Creatinine 4.10 H D (0.6-1.2) mg/dl Est Cr Clr Drug Dosing 14.0 ml/min Est GFR ( Amer) 11.8 ml/min Est GFR (Non-Af Amer) 10.1 ml/min BUN/Creatinine Ratio 11.2 (10-20) Glucose 132 H (70-99(Fasting)) mg/dl POC Glucose 137 H (70-99) mg/dl Calcium 7.7 L (8.6-10.3) mg/dl Phosphorus 4.8 (2.5-4.9) mg/dl Magnesium 1.9 (1.7-2.4) mg/dl 12/26/22 12/26/22 12/26/22 Range/Units 19:53 19:20 19:20 WBC (4.8-10.8) K/ul RBC (4.20-5.40) M/uL Hgb 9.6 L (12.0-16.0) g/dl Hct 28.5 L (37.0-47.0) % MCV (80.0-100.0) fL MCH (25.0-34.0) pg MCHC (32.0-36.0) g/dL RDW Std Deviation (36.4-46.3) fL RDW Coeff of Mandy (11.5-14.5) % Plt Count (130-400) K/uL MPV (9.4-12.4) fL Immature Gran % (Auto) % Neut % (Auto) % Lymph % (Auto) % Crowley % (Auto) % Eos % (Auto) % Baso % (Auto) % Neut # (Auto) (1.40-6.50) K/uL Lymph # (Auto) (1.2-3.4) K/uL Crowley # (Auto) (0.11-0.59) K/uL Eos # (Auto) (0-0.50) K/uL Baso # (Auto) (0-0.2) K/uL Immature Gran # (Auto) (0.01-0.20) K/uL Sodium (136-145) mmol/L Potassium 3.6 (3.5-5.1) mmol/L Chloride (98-107) mmol/L Carbon Dioxide (21-32) mmol/L Anion Gap (3-11) BUN (6-23) mg/dl Creatinine (0.6-1.2) mg/dl Est Cr Clr Drug Dosing ml/min Est GFR ( Amer) ml/min Est GFR (Non-Af Amer) ml/min BUN/Creatinine Ratio (10-20) Glucose (70-99(Fasting)) mg/dl POC Glucose 130 H (70-99) mg/dl Calcium (8.6-10.3) mg/dl Phosphorus (2.5-4.9) mg/dl Magnesium 1.8 (1.7-2.4) mg/dl 12/26/22 12/26/22 12/26/22 Range/Units 16:44 12:03 11:59 WBC (4.8-10.8) K/ul RBC (4.20-5.40) M/uL Hgb (12.0-16.0) g/dl Hct (37.0-47.0) % MCV (80.0-100.0) fL MCH (25.0-34.0) pg MCHC (32.0-36.0) g/dL RDW Std Deviation (36.4-46.3) fL RDW Coeff of Mandy (11.5-14.5) % Plt Count (130-400) K/uL MPV (9.4-12.4) fL Immature Gran % (Auto) % Neut % (Auto) % Lymph % (Auto) % Crowley % (Auto) % Eos % (Auto) % Baso % (Auto) % Neut # (Auto) (1.40-6.50) K/uL Lymph # (Auto) (1.2-3.4) K/uL Crowley # (Auto) (0.11-0.59) K/uL Eos # (Auto) (0-0.50) K/uL Baso # (Auto) (0-0.2) K/uL Immature Gran # (Auto) (0.01-0.20) K/uL Sodium 138 (136-145) mmol/L Potassium 3.6 (3.5-5.1) mmol/L Chloride 103 (98-107) mmol/L Carbon Dioxide 25 (21-32) mmol/L Anion Gap 10 (3-11) BUN 36 H (6-23) mg/dl Creatinine 3.45 H D (0.6-1.2) mg/dl Est Cr Clr Drug Dosing 16.6 ml/min Est GFR ( Amer) 14.5 ml/min Est GFR (Non-Af Amer) 12.5 ml/min BUN/Creatinine Ratio 10.4 (10-20) Glucose 135 H (70-99(Fasting)) mg/dl POC Glucose 116 H 125 H (70-99) mg/dl Calcium 7.9 L (8.6-10.3) mg/dl Phosphorus (2.5-4.9) mg/dl Magnesium (1.7-2.4) mg/dl Medications Administered Current Inpatient Medications Acetaminophen (Acetaminophen 325 Mg Tab) 650 mg PO Q6H PRN PRN Reason: Fever/pain Stop: 01/25/23 22:36 Last Admin: 12/26/22 23:30 Dose: 650 mg Amiodarone HCl (Amiodarone 200 Mg Tab) 200 mg PO BID [facility] Stop: 01/20/23 20:59 Last Admin: 12/27/22 08:57 Dose: 200 mg Calcium Carbonate (Calcium Carbonate 1,250 Mg/5 Ml Udc) 1,250 mg PO BID [facility] Stop: 01/13/23 17:34 Last Admin: 12/27/22 08:57 Dose: 1,250 mg Cetirizine HCl (Cetirizine Hcl 10 Mg Tablet) 5 mg PO Q48H VANDANA Stop: 01/18/23 20:59 Last Admin: 12/25/22 20:19 Dose: 5 mg Dextrose (Dextrose 50% 50 Ml Syringe) 25 - 50 ml IV UD PRN; Protocol PRN Reason: Hypoglycemia Protocol Stop: 01/08/23 21:20 Fluticasone Propionate (Fluticasone Propionate Na Spr 16 Gm Btl) 1 sprays EDUARDO QAM [facility] Stop: 01/18/23 11:29 Last Admin: 12/27/22 08:57 Dose: 1 sprays Glucagon (Glucagon For Inj 1 Mg Vial) 1 mg SQ UD PRN; Protocol PRN Reason: Hypoglycemia Protocol Stop: 01/08/23 21:20 Glucose (Glucose 10 Tab/Tube) 4 - 8 tab PO UD PRN; Protocol PRN Reason: Hypoglycemia Treatment Stop: 01/08/23 21:20 Glucose (Glucose 40% Gel 15 Gm Tube) 15 - 30 gm PO UD PRN; Protocol PRN Reason: Hypoglycemia Protocol Stop: 01/08/23 21:20 Heparin Sodium (Porcine) (Heparin Sod 5,000 Unit/0.5 Ml Vial) 5,000 units SQ Q12 VANDANA Stop: 01/18/23 08:59 Last Admin: 12/23/22 08:47 Dose: 5,000 units Hydralazine HCl (Hydralazine Hcl 20 Mg/Ml Vial) 10 mg IV Q6H PRN PRN Reason: SBP>160 Stop: 01/19/23 17:14 Last Admin: 12/21/22 19:57 Dose: 10 mg Insulin Aspart (Insulin Aspart Per Unit Charge) 0 units SC ACHS [facility] Stop: 01/24/23 11:29 Last Admin: 12/27/22 08:09 Dose: Not Given Melatonin (Melatonin 3 Mg Tab) 3 mg PO HS PRN PRN Reason: Sleep Stop: 01/22/23 20:00 Last Admin: 12/26/22 23:32 Dose: 3 mg Methimazole (Methimazole 5 Mg Tablet) 5 mg PO DAILY [facility] Stop: 01/09/23 08:59 Last Admin: 12/27/22 08:57 Dose: 5 mg Metoprolol Succinate (Metoprolol Succ 25mg Ext Rel Tab) 25 mg PO TID [facility] Stop: 01/21/23 13:59 Last Admin: 12/27/22 08:57 Dose: 25 mg Metoprolol Tartrate (Metoprolol Tartrate 1 Mg/Ml Vial) 2.5 mg IV Q6H PRN PRN Reason: HR above 120 Stop: 01/10/23 19:14 Last Admin: 12/18/22 18:27 Dose: 2.5 mg Miscellaneous (Carbohydrates For Hypoglycemia ) 15 - 30 gm PO UD PRN PRN Reason: Hypoglycemia Protocol Stop: 01/08/23 21:20 Ondansetron HCl (Ondansetron Inj 2 Mg/Ml 2 Ml Vial) 4 mg IV Q6H PRN PRN Reason: Nausea And Vomiting Stop: 01/08/23 21:20 Last Admin: 12/18/22 01:58 Dose: 4 mg Senna/Docusate Sodium (Docusate Sodium/Senna 50/8.6mg Tab) 1 tab PO BID [facility] Stop: 01/09/23 20:59 Last Admin: 12/27/22 08:57 Dose: Not Given Sertraline HCl (Sertraline Hcl 50 Mg Tablet) 50 mg PO DAILY [facility] Stop: 01/09/23 08:59 Last Admin: 12/27/22 08:57 Dose: 50 mg (1) Acute pancreatitis Acute pancreatitis complication: unspecified Pancreatitis type: unspecified pancreatitis type Qualified Code(s): K85.90 - Acute pancreatitis without necrosis or infection, unspecified (2) Nausea and vomiting Vomiting type: unspecified Qualified Code(s): R11.2 - Nausea with vomiting, unspecified
--- NOTE | 2022-12-27 11:38 | Cardiology Progress Note ---
Date of Service December 27, 2022 Assessment & Plan (1) Paroxysmal atrial fibrillation: Plan Change/increase metoprolol succinate from 25 mg TID to 50 mg BID Continue amiodarone at 200 mg twice a day for now Maintain normokalemia and normomagnesemia. Full anticoagulation risks appears greater than benefit at this point. Admission and Anticipated Discharge Date Admission Date: December 09, 2022 Supervising Physician Co-Signing Physician Notes I have reviewed the advanced practitioner documentation and agree. I saw and evaluated the patient on date of service referenced in note and have performed the following medically appropriate history and/or exam: Back to sinus rhythm. Medication recommendations above as above. General: Awake, alert and oriented x 3. No acute distress. HEENT: Normocephalic, atraumatic. Pupils equal, round and reactive to light and accommodation. Extraocular muscles are intact. Anicteric sclera. Moist mucous membranes. Neck: No JVD. No bruit. Cardiovascular: Regular. Positive S-4. Normal S-1 and S-2. No S-3. No murmurs or rubs. Pulmonary: Clear to auscultation B/L. No rales, rhonchi or wheezing Abdomen: Bowel sounds x 4, soft. No rebound, guarding or tenderness. No organomegaly. Extremities: No clubbing, cyanosis or edema. +2 pedal pulses bilaterally. Skin: Warm and dry. Subjective Patient evaluated on dialysis. No overt palpitations or angina. Notes "I need a new body." Telemetry: Paroxysmal atrial fibrillation/flutter with a rapid ventricular response with spontaneous conversion around midnight, maintaining sinus rhythm thereafter without significant bradycardia. EKG on 12/27/2022 revealed sinus rhythm at 80 bpm with premature atrial complexes, nonspecific T wave abnormality, QTc 482 ms. Physical Exam Physical Exam: General: A&Ox3. HENT: Normocephalic. Atraumatic. Eyes: PER. Conjunctiva pink, sclera pale. Heart: RRR. Results & Data Vital Signs (Past 12 Hours) Vital Signs Temp Pulse Pulse Pulse Resp BP BP 12/27/22 11:06 12/27/22 10:30 77 139/71 12/27/22 10:17 36.4 C L 77 12/27/22 08:00 80 12/27/22 07:01 36.6 C 80 18 150/79 H 12/27/22 03:56 36.3 C L 78 18 136/79 12/26/22 23:46 36.3 C L 89 18 135/86 Pulse Ox O2 Del Method O2 Flow Rate 12/27/22 11:06 Nasal Cannula 2 12/27/22 10:30 12/27/22 10:17 12/27/22 08:00 12/27/22 07:01 96 Nasal Cannula 2 12/27/22 03:56 96 Nasal Cannula 2 12/26/22 23:46 97 Nasal Cannula 2 Laboratory Results CBC 12/26/22 12/27/22 Range/Units 19:20 06:34 WBC 10.08 (4.8-10.8) K/ul RBC 3.23 L (4.20-5.40) M/uL Hgb 9.6 L 9.5 L (12.0-16.0) g/dl Hct 28.5 L 28.8 L (37.0-47.0) % Plt Count 218 (130-400) K/uL Neut # (Auto) 5.67 (1.40-6.50) K/uL Lymph # (Auto) 2.45 (1.2-3.4) K/uL Ida # (Auto) 1.29 H (0.11-0.59) K/uL Eos # (Auto) 0.52 H (0-0.50) K/uL Baso # (Auto) 0.09 (0-0.2) K/uL Comprehensive Metabolic Panel 12/26/22 12/26/22 12/27/22 Range/Units 11:59 19:20 06:34 Sodium 138 138 (136-145) mmol/L Potassium 3.6 3.6 3.7 (3.5-5.1) mmol/L Chloride 103 104 (98-107) mmol/L Carbon Dioxide 25 24 (21-32) mmol/L BUN 36 H 46 H (6-23) mg/dl Creatinine 3.45 H D 4.10 H D (0.6-1.2) mg/dl Glucose 135 H 132 H (70-99(Fasting)) mg/dl Calcium 7.9 L 7.7 L (8.6-10.3) mg/dl Intake and Output 12/26/22 12/27/22 12/27/22 22:59 06:59 14:59 Intake Total 600 / 720 120 / 720 Output Total 210 / 325 115 / 325 Balance 390 / 395 5 / 395 Intake: IV 360 / 360 Acetaminophen 1,000 mg In 100 100 / 100 ml @ 400 mls/hr IV NOW STA Rx#: [id number] Caspofungin 50 mg In Sodium 260 / 260 Chloride 0.9% 250 ml @ 260 mls/ hr IV Q24H [facility] Rx#:[id number] Oral 240 / 360 120 / 360 Output: Urine Amount (Catheter) 200 / 300 100 / 300 Tomlinson/Indwelling 200 / 300 100 / 300 Drain Output MIMI #1 Other: Weight 99.5 kg 99.5 kg Weight Measurement Method [facility] in [facility] Built in [facility] Patient Weight 12/28/22 06:59 Weight 99.5 kg
--- NOTE | 2022-12-27 12:58 | Electrocardiogram Report ---
Test Reason : Blood Pressure : / mmHG Vent. Rate : 112 BPM Atrial Rate : 394 BPM P-R Int : 000 ms QRS Dur : 084 ms QT Int : 290 ms P-R-T Axes : 000 003 047 degrees QTc Int : 395 ms Atrial fibrillation with rapid ventricular response Nonspecific T wave abnormality Abnormal ECG When compared with ECG of 22-DEC-2022 04:54, Atrial fibrillation has replaced Sinus rhythm Minimal criteria for Anterior infarct are no longer Present Confirmed by Matt Head ([id number]) on 12/27/2022 12:58:33 PM Referred By: REFERRED SELF Confirmed By:Matt Head
--- NOTE | 2022-12-27 13:47 | Electrocardiogram Report ---
Test Reason : Blood Pressure : / mmHG Vent. Rate : 080 BPM Atrial Rate : 080 BPM P-R Int : 160 ms QRS Dur : 084 ms QT Int : 418 ms P-R-T Axes : 062 015 039 degrees QTc Int : 482 ms Sinus rhythm with Premature atrial complexes Otherwise normal ECG When compared with ECG of 26-DEC-2022 16:24, (unconfirmed) Sinus rhythm has replaced Atrial fibrillation Nonspecific T wave abnormality, improved in Inferior leads Nonspecific T wave abnormality, improved in Anterolateral leads Confirmed by Matt Head ([id number]) on 12/27/2022 1:46:54 PM Referred By: REFERRED SELF Confirmed By:Matt Head
[2022-12-27] MEDS: CETIRIZINE HCL 10 MG TABLET PO SCH (20:59)
[2022-12-27] MEDS: METOPROLOL SUCC 50MG EXT REL TAB PO SCH (21:08)
[2022-12-28] MEDS ORDERED: POLYETHYLENE (MIRALAX) 17 GM PACK PO PRN (05:51)
[2022-12-28 06:34] LABS: Hemoglobin 9.7 g/dl (12.0-16.0); Mean Corpuscular Hgb Conc 33.4 g/dL (32.0-36.0); Mean Corpuscular Volume 86.8 fL (80.0-100.0); Mean Platelet Volume 10.5 fL (9.4-12.4); Platelet Count 176 K/uL (130-400); RDW Coefficient of Variation 14.9 % (11.5-14.5); RDW Standard Deviation 46.8 fL (36.4-46.3); Red Blood Count 3.34 M/uL (4.20-5.40); White Blood Count 10.38 K/ul (4.8-10.8)
[2022-12-28 07:31] LABS: BUN Creatinine Ratio 10.2 (10-20); Calcium 7.9 mg/dl (8.6-10.3); Creatinine Clr Calc Pharmacy 17.6 ml/min; Est GFR (African American) 16.8 ml/min; Est GFR (Non-African American) 14.5 ml/min; Magnesium 1.8 mg/dl (1.7-2.4); Phosphorus 3.2 mg/dl (2.5-4.9); Potassium 3.6 mmol/L (3.5-5.1)
--- NOTE | 2022-12-28 08:31 | Hospitalist Progress Note ---
Date of Service December 28, 2022 Assessment & Plan (1) Acute pancreatitis: (2) Nausea and vomiting: Plan: Possible related togallstone related pancreatitis Present on admission with abdominal pain that radiating to back associating with vomiting and nausea CT abd/pel showedperipancreatic fat stranding is seen concerning for pancreatitis. Prominence of the gallbladder may be reactive or less likely may represent acute cholecystitis. Abdomen u/s showedgallbladder is distended and full of stones/sludge as detailed above. Findings are suspicious for acute cholecystitis. Lipase above 4000's on admission, Lipase 2960--> then 678-->63 Elevated LFT with AST 313 and ALT 536 S/p Lap chol and ERCPwith sphincterotomy and balloon sweeping of the bile duct for stones and puswith stent placement on 12/10/22 CT abd/P on 12/17/22 noted severe pancreatitis similar to prior study, small amount of perihepatic fluid/small amount of pneumoperitoneum, subhepatic catheter unchanged in position, CBD stent with associated pneumobilia, small b/l pleural effusion, unchanged airspace opacities in the lungs. LFT normalized Tolerated diet Clinically improved significantly Septic shock she was in the ICU on IV pressor Persistent leukocytosis WBC peaked 30.7, then continue to drop to 12K , now normalized to 10K Blood culture, urine culture, fungal culture are negative Completed IV Zosyn course DC caspofungin on 12/26 since patient completed 7 days course Blood and urine culture were negative MIMI drain fluid culture negative so far Acute cholangitis Transaminitis LFTs normalized. Hgb is 9.5 today Gen surg consulted and following S/p Lap chol and ERCPwith sphincterotomy and balloon sweeping of the bile duct for stones and puswith stent placement LFT continue trending down with AST 31, ALT 119 and Alk 104 WBC continue trending down , now normalized Gastro and surgery on board Completed the course of Zosyn Will need repeat ERCP in 2 month for stent removal Plan to leave the drain until likely after her stent removal although may remove sooner but will likely stay for at least 4 to 6 weeks Acute respiratory failure with hypoxia Likely from dependent atelectasis Continue to encourage incentive spirometry and flutter O2 supplementation to keep oxygen saturation between 88-92% Wean off oxygen as tolerated Saturated well on RA Paroxysmal Afib Telemonitor showed Afib yesterday morning ECHO showed normal LV wall function. EF 65 to 70 % Cardiology consulted No anticoagulant for now considering comorbidities: severe pancreatitis/risk of hemorrhagic pancreatitis, recent surgery Continue metoprolol and amiodarone PO , metoprolol dose increased Cardiology following Monitor and replace electrolytes 12/28 -discussed with LIFE INSURANCE UNDERWRITER, and surgery, regarding anticoagulation. Both providers agree that we can start anticoagulation for paroxysmal A-fib. Discussed with pharmacy regarding patient's renal function, recommend 5 mg twice daily. SAMMY Worsening renal function. Creatinine increased up to 8.38, BUN 110 on 12/18/22 Patient transferred to ICU on 12/18/22 and started on HD same day Nephrology following closely Avoid nephrotoxic agents Monitor renal fuction, BMP ? Vaginal bleeding possible related to urethral trauma from the catheter. No blood seen in the urine from the catalan cath Hgb 9.7 today held subq heparin ACID STRENGTH INSPECTOR consulted (see consult) - and discussed in person - ok to start anticoagulation clinically stable Generalized weakness Continue PT/OT eval Fall precaution Pt would like to keep the catalan cath for now and once she gets stronger to remove it Will need rehab placement Prediabetes Recent Hba1c 6.1 on 12/10/22 Continue monitor BS Hypertension BP 147/68 now Will consider to start on BP med if continues to be elevated Continue monitor BP Hyperthyroidism Continue Methimazole Anxiety Continue Sertraline Code status full code DVT px SCD for now Held heparin subq due to poss. vaginal bleeding Discussed anticoag. w/ thermoplastic technician and surgery - ok to start AC for pAfib Continue PT/OT Admission and Anticipated Discharge Date Admission Date: December 09, 2022 Subjective Pt was seen in follow up of complicated hosp. stay, s/p ercp, s/p cholecystectomy, now on HD Pt's family present at the bedside and updated, Dr. Beaulieu (thermoplastic technician) also present at the bedside. Pt is lying in bed in no acute distress Pt reports feeling somewhat better however still quite weak and tired Denies any fever chills, chest pain, palpitation, shortness of breath. Reports minimal abdominal discomfort. Discussed anticoag. and ok per ob/gun. Discussed w/ nephrology in person - pt needs tPA w/ HD- can't leave to [facility]. Discussed w/ Dr. Whittaker - surgery regarding anticoag. for Afib - says ok for AC at this time. Review of Systems Review of Systems: All systems reviewed & are unremarkable except as noted in Subjective Physical Exam Physical Exam: General- WD/WN F, frail, in NAD, appears weak and tired Head- atraumatic Eyes- PERRL, EOMI, ENT- oropharynx clear Neck- supple, no JVD Lungs- +diminished BS Heart- irregular, no murmur Abdomen- normal bowel sounds, soft, +mildly tender to palp. Extremities- +edema, moves extremities Neuro- alert, oriented x 3; PERRL, EOMI; no facial palsy; no dysarthria, moves extremities Skin- warm & dry Results & Data Results & Data Vital Signs (Past 12 Hours) Vital Signs Temp Pulse Pulse Resp BP Pulse Ox O2 Del Method 12/28/22 08:00 89 12/28/22 04:06 36.8 C 84 16 160/80 H 94 Room Air 12/27/22 23:34 36.8 C 72 16 150/82 H 93 Room Air Laboratory Results 12/28/22 12/28/22 12/28/22 Range/Units 08:17 05:45 05:45 WBC 10.38 (4.8-10.8) K/ul RBC 3.34 L (4.20-5.40) M/uL Hgb 9.7 L (12.0-16.0) g/dl Hct 29.0 L (37.0-47.0) % MCV 86.8 (80.0-100.0) fL MCH 29.0 (25.0-34.0) pg MCHC 33.4 (32.0-36.0) g/dL RDW Std Deviation 46.8 H (36.4-46.3) fL RDW Coeff of Mandy 14.9 H (11.5-14.5) % Plt Count 176 (130-400) K/uL MPV 10.5 (9.4-12.4) fL Sodium 138 (136-145) mmol/L Potassium 3.6 (3.5-5.1) mmol/L Chloride 103 (98-107) mmol/L Carbon Dioxide 26 (21-32) mmol/L Anion Gap 9 (3-11) BUN 31 H (6-23) mg/dl Creatinine 3.05 H D (0.6-1.2) mg/dl Est Cr Clr Drug Dosing 17.6 ml/min Est GFR ( Amer) 16.8 ml/min Est GFR (Non-Af Amer) 14.5 ml/min BUN/Creatinine Ratio 10.2 (10-20) Glucose 134 H (70-99(Fasting)) mg/dl POC Glucose 130 H (70-99) mg/dl Calcium 7.9 L (8.6-10.3) mg/dl Phosphorus 3.2 D (2.5-4.9) mg/dl Magnesium 1.8 (1.7-2.4) mg/dl 12/27/22 12/27/22 Range/Units 21:06 16:54 WBC (4.8-10.8) K/ul RBC (4.20-5.40) M/uL Hgb (12.0-16.0) g/dl Hct (37.0-47.0) % MCV (80.0-100.0) fL MCH (25.0-34.0) pg MCHC (32.0-36.0) g/dL RDW Std Deviation (36.4-46.3) fL RDW Coeff of Mandy (11.5-14.5) % Plt Count (130-400) K/uL MPV (9.4-12.4) fL Sodium (136-145) mmol/L Potassium (3.5-5.1) mmol/L Chloride (98-107) mmol/L Carbon Dioxide (21-32) mmol/L Anion Gap (3-11) BUN (6-23) mg/dl Creatinine (0.6-1.2) mg/dl Est Cr Clr Drug Dosing ml/min Est GFR ( Amer) ml/min Est GFR (Non-Af Amer) ml/min BUN/Creatinine Ratio (10-20) Glucose (70-99(Fasting)) mg/dl POC Glucose 142 H 132 H (70-99) mg/dl Calcium (8.6-10.3) mg/dl Phosphorus (2.5-4.9) mg/dl Magnesium (1.7-2.4) mg/dl Medications Administered Current Inpatient Medications Acetaminophen (Acetaminophen 325 Mg Tab) 650 mg PO Q6H PRN PRN Reason: Fever/pain Stop: 01/25/23 22:36 Last Admin: 12/26/22 23:30 Dose: 650 mg Amiodarone HCl (Amiodarone 200 Mg Tab) 200 mg PO BID [facility] Stop: 01/20/23 20:59 Last Admin: 12/27/22 21:00 Dose: 200 mg Calcium Carbonate (Calcium Carbonate 1,250 Mg/5 Ml Udc) 1,250 mg PO BID [facility] Stop: 01/13/23 17:34 Last Admin: 12/27/22 20:59 Dose: 1,250 mg Cetirizine HCl (Cetirizine Hcl 10 Mg Tablet) 5 mg PO Q48H [facility] Stop: 01/18/23 20:59 Last Admin: 12/27/22 20:59 Dose: 5 mg Dextrose (Dextrose 50% 50 Ml Syringe) 25 - 50 ml IV UD PRN; Protocol PRN Reason: Hypoglycemia Protocol Stop: 01/08/23 21:20 Fluticasone Propionate (Fluticasone Propionate Na Spr 16 Gm Btl) 1 sprays EDUARDO QAM [facility] Stop: 01/18/23 11:29 Last Admin: 12/27/22 08:57 Dose: 1 sprays Glucagon (Glucagon For Inj 1 Mg Vial) 1 mg SQ UD PRN; Protocol PRN Reason: Hypoglycemia Protocol Stop: 01/08/23 21:20 Glucose (Glucose 10 Tab/Tube) 4 - 8 tab PO UD PRN; Protocol PRN Reason: Hypoglycemia Treatment Stop: 01/08/23 21:20 Glucose (Glucose 40% Gel 15 Gm Tube) 15 - 30 gm PO UD PRN; Protocol PRN Reason: Hypoglycemia Protocol Stop: 01/08/23 21:20 Heparin Sodium (Porcine) (Heparin Sod 5,000 Unit/0.5 Ml Vial) 5,000 units SQ Q12 [facility] Stop: 01/18/23 08:59 Last Admin: 12/23/22 08:47 Dose: 5,000 units Hydralazine HCl (Hydralazine Hcl 20 Mg/Ml Vial) 10 mg IV Q6H PRN PRN Reason: SBP>160 Stop: 01/19/23 17:14 Last Admin: 12/21/22 19:57 Dose: 10 mg Insulin Aspart (Insulin Aspart Per Unit Charge) 0 units SC ACHS [facility] Stop: 01/24/23 11:29 Last Admin: 12/27/22 21:08 Dose: Not Given Melatonin (Melatonin 3 Mg Tab) 3 mg PO HS PRN PRN Reason: Sleep Stop: 01/22/23 20:00 Last Admin: 12/26/22 23:32 Dose: 3 mg Methimazole (Methimazole 5 Mg Tablet) 5 mg PO DAILY [facility] Stop: 01/09/23 08:59 Last Admin: 12/27/22 08:57 Dose: 5 mg Metoprolol Succinate (Metoprolol Succ 50mg Ext Rel Tab) 50 mg PO BID [facility] Stop: 01/26/23 20:59 Last Admin: 12/27/22 21:08 Dose: 50 mg Metoprolol Tartrate (Metoprolol Tartrate 1 Mg/Ml Vial) 2.5 mg IV Q6H PRN PRN Reason: HR above 120 Stop: 01/10/23 19:14 Last Admin: 12/18/22 18:27 Dose: 2.5 mg Miscellaneous (Carbohydrates For Hypoglycemia ) 15 - 30 gm PO UD PRN PRN Reason: Hypoglycemia Protocol Stop: 01/08/23 21:20 Ondansetron HCl (Ondansetron Inj 2 Mg/Ml 2 Ml Vial) 4 mg IV Q6H PRN PRN Reason: Nausea And Vomiting Stop: 01/08/23 21:20 Last Admin: 12/18/22 01:58 Dose: 4 mg Polyethylene Glycol (Polyethylene (Miralax) 17 Gm Pack) 17 gm PO DAILY PRN PRN Reason: Constipation Stop: 01/27/23 05:50 Senna/Docusate Sodium (Docusate Sodium/Senna 50/8.6mg Tab) 1 tab PO BID [facility] Stop: 01/09/23 20:59 Last Admin: 12/27/22 21:04 Dose: 1 tab Sertraline HCl (Sertraline Hcl 50 Mg Tablet) 50 mg PO DAILY [facility] Stop: 01/09/23 08:59 Last Admin: 12/27/22 08:57 Dose: 50 mg (1) Acute pancreatitis Acute pancreatitis complication: unspecified Pancreatitis type: unspecified pancreatitis type Qualified Code(s): K85.90 - Acute pancreatitis without necrosis or infection, unspecified (2) Nausea and vomiting Vomiting type: unspecified Qualified Code(s): R11.2 - Nausea with vomiting, unspecified
[2022-12-28] MEDS: INSULIN ASPART PER UNIT CHARGE SC SCH ×3 (09:12→17:51)
[2022-12-28] MEDS: AMIODARONE 200 MG TAB PO SCH ×2 (09:13→20:22)
[2022-12-28] MEDS: METOPROLOL SUCC 50MG EXT REL TAB PO SCH ×2 (09:13→20:22)
[2022-12-28] MEDS: methIMAzole 5 MG TABLET PO SCH (09:13)
[2022-12-28] MEDS: CALCIUM CARBONATE 1,250 MG/5 ML UDC PO SCH ×2 (09:13→20:22)
[2022-12-28] MEDS: SERTRALINE HCL 50 MG TABLET PO SCH (09:13)
[2022-12-28] MEDS: FLUTICASONE PROPIONATE NA SPR 16 GM BTL NAE SCH (09:14)
[2022-12-28] MEDS: MAGNESIUM OXIDE 400 MG TAB PO SCH ×2 (10:10→20:22)
[2022-12-28] MEDS: DOCUSATE SODIUM/SENNA 50/8.6MG TAB PO SCH ×2 (10:11→20:22)
--- NOTE | 2022-12-28 10:18 | Communication Note ---
Date of Service: December 28, 2022 Met with patient, her daughter Stacey, and her younger sister who is visiting from [place]. Dr. Renata Wilburn (resident) was present for entire visit and Dr. Sukumar Vasquez (hospitalist) present for portion of visit. Blossom did recognize and remember me when she saw me and I greeted her. We discussed the interim days of care since I met with her on Sunday. Her perineal bleeding has continued to be present but remains a small amount, not more than a first or last day of menses type of bleeding. The patient is not worried about it and not feeling pain, though family notes there is precedent for her to have minimal pain in areas where her MS is currently active even if a painful wound or disease is present. I reviewed with daughter Stacey the exam findings of Sunday, the differential diagnoses for the bleeding, and my working diagnosis of urethral trauma (possibly not healing as the indwelling catheter is stenting open a wound in the urethra or continuing to irritate an abrasion). We discussed the pros and cons of an internal vaginal exam, including positioning which Blossom continues to say it is not her preference to attempt, and possible disturbance of and bleeding from a tumor in the worst case scenario that one were to exist. We discussed the possibility of rectal or hemorrhoidal bleeding, either of which in these small amounts is not threatening and does not require intervention at this moment. Dr. Vasquez was present for the discussion of the above. We discussed my thoughts about prophylaxis against DVT and for her A-Fib. Blossom's SCD's were on the windowsill at the time of my arrival, and edema of the lower legs is noted along with gel dressings on her heels bilaterally. Dr. Vasquez also examined the patient's lower limbs during our joint visit today. Blossom's heparin has been held out of concerns of worsening her perineal bleeding. I offered the opinion that either prophy or treatment dose anticoa gulation would be acceptable to use in addition to SCD's. The family was counseled that although bleeding may flow more freely from any wound (including urethral trauma if that's present) when anticoagulation is used, the heparin won't actually be worsening the wound itself or speeding any disease that's present. If she bleeds enough to require a blood transfusion, that would be unfortunate, but must be weighed against the risk of DVT/PE or stroke which are more serious complications. I feel the balance tips in favor of using anticoagulation. At the same time, there are other factors - such as hemorrhagic pancreatitis or bleeding at surgical sites internally - which also must be considered and are not part of my wheelhouse. In short, from a ACCOUNT RESOLUTION SPECIALIST perspective it's OK to anticoagulate; the family knows that may or may not be the ultimate decision of the primary team once all input is considered. Finally, we reviewed the option to conduct pelvic imaging while Blossom is an inpatient. She will not want to have TVUS, only transabdominal, which will likely offer limited views. We can presume from the fact that she just had abdominal surgery that widely metastatic disease in the abdomen was not seen, and a grossly abnormal pelvic organ was not noted during that surgery, or it would have been mentioned. If we get limited imaging that shows a concern, we may feel either forced to pursue further workup before Blossom goes home or she may find herself worried about these partial results. We did discuss that any ACCOUNT RESOLUTION SPECIALIST malignancy identified would require referral to GynOnc which do not have services at our hospital, and that treatments for these types of cancer generally involve either hysterectomy, Chemo/Radiation, or both. She declines any imaging at this time, with the agreement of her family members present, and would like to focus on getting home YULIYA and coming in for an office-based exam and imaging when she's well enough to do so. My practice members and I remain available if needed for re-consult, but at this time will plan to see Blossom on an outpatient basis once she is well enough for discharge. She notes that she lives just 3 miles or so from [facility] with her live- in boyfriend, and her daughter is also local. Returning for care is expected to be very feasible even if she requires some assistance after leaving the hospital.
--- NOTE | 2022-12-28 12:10 | Cardiology Progress Note ---
Date of Service December 28, 2022 Assessment & Plan (1) Paroxysmal atrial fibrillation: Plan Options of management discussed with patient and family Continue metoprolol succinate and amiodarone as presently prescribed. Maintain normokalemia and normomagnesemia. ? If/when to anticoagulate Admission and Anticipated Discharge Date Admission Date: December 09, 2022 Supervising Physician Co-Signing Physician Notes I have reviewed the advanced practitioner documentation and agree. I saw and evaluated the patient on date of service referenced in note and have performed the following medically appropriate history and/or exam. Subjective Patient seen and examined. Chart, medications, and telemetry reviewed. Family present at bedside, with numerous questions and concerns that I addressed to the best of my ability. Risks and benefits of metoprolol, amiodarone, and anticoagulation discussed. Patient asymptomatic with the PAF. Denies chest pain, palpitations, or increased shortness of breath. Main concern is kidney function. Telemetry: Patient predominately maintaining sinus rhythm with frequent atrial ectopy. There was an approximately one minute episode of paroxysmal atrial flutter with a rapid ventricular response with spontaneous conversion at 19:38:38 on 12/27/2022. No significant pauses. No bradycardia. Physical Exam Physical Exam: General: A&Ox3. NAD. HENT: Normocephalic. Atraumatic. Eyes: PER. Conjunctiva pink, sclera clear. Neck: No carotid bruits. JVD. Heart: Irregular with ectopy, 84 bpm. No murmur. Chest: Right subclavian catheter. Lungs: Clear anteriorly. Abdomen: +BS. Soft. Extremities: 1+ edema. No clubbing. No cyanosis. Limited neurological examination is without focal deficits. Results & Data Vital Signs (Past 12 Hours) Vital Signs Temp Pulse Pulse Resp BP Pulse Ox O2 Del Method 12/28/22 08:45 36.4 C L 96 H 18 161/90 H 93 Room Air 12/28/22 08:00 89 12/28/22 04:06 36.8 C 84 16 160/80 H 94 Room Air Laboratory Results CBC 12/28/22 Range/Units 05:45 WBC 10.38 (4.8-10.8) K/ul RBC 3.34 L (4.20-5.40) M/uL Hgb 9.7 L (12.0-16.0) g/dl Hct 29.0 L (37.0-47.0) % Plt Count 176 (130-400) K/uL Comprehensive Metabolic Panel 12/28/22 Range/Units 05:45 Sodium 138 (136-145) mmol/L Potassium 3.6 (3.5-5.1) mmol/L Chloride 103 (98-107) mmol/L Carbon Dioxide 26 (21-32) mmol/L BUN 31 H (6-23) mg/dl Creatinine 3.05 H D (0.6-1.2) mg/dl Glucose 134 H (70-99(Fasting)) mg/dl Calcium 7.9 L (8.6-10.3) mg/dl Intake and Output 12/27/22 12/28/22 12/28/22 22:59 06:59 14:59 Intake Total 300 / 300 Output Total 311 / 311 Balance - Intake: Oral 300 / 300 Output: Urine Amount (Catheter) 300 / 300 Tomlinson/Indwelling 300 / 300 Drain Output MIMI #1 # Bowel Movements Other: Other Intake Source sips Weight 87.6 kg Weight Measurement Method Built in [facility]
[2022-12-28] MEDS ORDERED: HEPARIN SOD 5,000 UNIT/0.5 ML VIAL SQ SCH (14:55)
[2022-12-28] MEDS: METOPROLOL TARTRATE 1 MG/ML VIAL IV PRN (17:26)
[2022-12-28] MEDS: APIXABAN 5 MG TABLET PO SCH (18:20)
[2022-12-28] MEDS ORDERED: Nursing to Pharmacy Communication SCH (19:00)
[2022-12-28] MEDS ORDERED: oxyCODONE HCL IR 5 MG TAB (IMMEDIATE RELEASE) PO STA (23:32)
[2022-12-29] MEDS ORDERED: HYDROmorphone INJ 0.5 MG/0.5 ML SYR IV STA (01:09)
[2022-12-29 04:59] LABS: Hematocrit (blood only) 28.1 % (37.0-47.0); Hemoglobin 9.4 g/dl (12.0-16.0); Mean Corpuscular Hemoglobin 29.1 pg (25.0-34.0); Mean Corpuscular Hgb Conc 33.5 g/dL (32.0-36.0); Mean Platelet Volume 9.9 fL (9.4-12.4); Platelet Count 181 K/uL (130-400); RDW Coefficient of Variation 14.6 % (11.5-14.5); RDW Standard Deviation 46.6 fL (36.4-46.3); Red Blood Count 3.23 M/uL (4.20-5.40); White Blood Count 10.39 K/ul (4.8-10.8)
[2022-12-29 05:14] LABS: BUN Creatinine Ratio 11.3 (10-20); Calcium 7.7 mg/dl (8.6-10.3); Creatinine Clr Calc Pharmacy 14.1 ml/min; Est GFR (African American) 12.8 ml/min; Est GFR (Non-African American) 11.1 ml/min; Magnesium 1.7 mg/dl (1.7-2.4); Phosphorus 3.4 mg/dl (2.5-4.9); Potassium 3.8 mmol/L (3.5-5.1)
[2022-12-29] MEDS ORDERED: EPOETIN ALFA 4,000 UNIT/ML VIAL IV ONE (07:00)
[2022-12-29] MEDS ORDERED: SODIUM CHLORIDE 0.9% 1000ML 1,000 ML IV PRN (07:00)
[2022-12-29] MEDS ORDERED: ALTEPLASE, RECOMBINANT 1 MG/ML 2ML VIAL INSTIL ONE ×2 (07:30)
--- NOTE | 2022-12-29 08:08 | Hospitalist Progress Note ---
Date of Service December 29, 2022 Assessment & Plan (1) Acute pancreatitis: (2) Nausea and vomiting: Plan: Possible related togallstone related pancreatitis Present on admission with abdominal pain that radiating to back associating with vomiting and nausea CT abd/pel showedperipancreatic fat stranding is seen concerning for pancreatitis. Prominence of the gallbladder may be reactive or less likely may represent acute cholecystitis. Abdomen u/s showedgallbladder is distended and full of stones/sludge as detailed above. Findings are suspicious for acute cholecystitis. Lipase above 4000's on admission, Lipase 2960--> then 678-->63 Elevated LFT with AST 313 and ALT 536 S/p Lap chol and ERCPwith sphincterotomy and balloon sweeping of the bile duct for stones and puswith stent placement on 12/10/22 CT abd/P on 12/17/22 noted severe pancreatitis similar to prior study, small amount of perihepatic fluid/small amount of pneumoperitoneum, subhepatic catheter unchanged in position, CBD stent with associated pneumobilia, small b/l pleural effusion, unchanged airspace opacities in the lungs. LFT normalized Tolerated diet Clinically improved significantly Septic shock she was in the ICU on IV pressor Persistent leukocytosis WBC peaked 30.7, then continue to drop to 12K , now normalized to 10K Blood culture, urine culture, fungal culture are negative Completed IV Zosyn course DC caspofungin on 12/26 since patient completed 7 days course Blood and urine culture were negative MIMI drain fluid culture negative so far Acute cholangitis Transaminitis LFTs normalized. Hgb is 9.5 today Gen surg consulted and following S/p Lap chol and ERCPwith sphincterotomy and balloon sweeping of the bile duct for stones and puswith stent placement LFT continue trending down with AST 31, ALT 119 and Alk 104 WBC continue trending down , now normalized Gastro and surgery on board Completed the course of Zosyn Will need repeat ERCP in 2 month for stent removal Plan to leave the drain until likely after her stent removal although may remove sooner but will likely stay for at least 4 to 6 weeks Acute respiratory failure with hypoxia Likely from dependent atelectasis Continue to encourage incentive spirometry and flutter O2 supplementation to keep oxygen saturation between 88-92% Wean off oxygen as tolerated Saturated well on RA Paroxysmal Afib Episodes of Afib (w/ RVR) during her hosp. stay ECHO showed normal LV wall function. EF 65 to 70 % Cardiology consulted Initially No anticoagulant considering comorbidities: severe pancreatitis/risk of hemorrhagic pancreatitis, recent surgery Continue metoprolol and amiodarone PO , metoprolol dose increased Cardiology following Monitor and replace electrolytes 12/28 -discussed with RESTAURANT ASSISTANT MANAGER, and surgery, regarding anticoagulation. Both providers agree that we can start anticoagulation for paroxysmal A-fib. Discussed with pharmacy regarding patient's renal function, recommend 5 mg twice daily. Started on Eliquis, no incr. bleed noted, H&H stable - 12/19 SAMMY Worsening renal function. Creatinine increased up to 8.38, BUN 110 on 12/18/22 Patient transferred to ICU on 12/18/22 and started on HD same day Nephrology following closely Avoid nephrotoxic agents Monitor renal fuction, BMP ? Vaginal bleeding possible related to urethral trauma from the catheter. No blood seen in the urine from the catalan cath Hgb 9.7 today held subq heparin CAFETER[employer] WORKER consulted (see consult) - and discussed in person - ok to start anticoagulation clinically stable Generalized weakness Continue PT/OT eval Fall precaution Pt would like to keep the catalan cath for now and once she gets stronger to remove it Will need rehab placement Prediabetes Recent Hba1c 6.1 on 12/10/22 Continue monitor BS Hypertension BP been at goal Will consider to start on BP med if continues to be elevated Continue monitor BP Hyperthyroidism Continue Methimazole Anxiety Continue Sertraline Code status full code DVT px SCD for now Held heparin subq due to poss. vaginal bleeding Discussed anticoag. w/ street superintendent and surgery - ok to start AC for pAfib, currently on Eliquis Continue PT/OT Admission and Anticipated Discharge Date Admission Date: December 09, 2022 Subjective Pt was seen in follow up of complicated hosp. stay, s/p ercp, s/p cholecystectomy, now on HD Dr. Beaulieu (street superintendent) present at the bedside yesterday and updated family. Discussed w/ surgery yesterday as well and started on Eliquis. Today patient is lying in bed in no acute distress, on dialysis. Patient's sister present at the bedside and updated. Pt reports feeling somewhat better however still quite weak and tired Denies any fever chills, chest pain, palpitation, shortness of breath. Denies abdominal pain. Appetite poor. Review of Systems Review of Systems: All systems reviewed & are unremarkable except as noted in Subjective Physical Exam Physical Exam: General- WD/WN F, frail, in NAD Head- atraumatic Eyes- PERRL, EOMI, ENT- oropharynx clear Neck- supple, no JVD Lungs- +diminished BS Heart- regular, no murmur Abdomen- normal bowel sounds, soft, +mildly tender to palp. Extremities- +edema, moves extremities Neuro- alert, oriented x 3; PERRL, EOMI; no facial palsy; no dysarthria, moves extremities Skin- warm & dry Results & Data Results & Data Vital Signs (Past 12 Hours) Vital Signs Temp Pulse Pulse Resp BP Pulse Ox O2 Del Method 12/29/22 07:55 49 L 12/29/22 03:00 37.0 C 127 H 20 120/73 93 Room Air 12/29/22 00:00 90 12/28/22 22:31 36.9 C 91 H 20 132/72 92 Room Air Laboratory Results 12/29/22 12/29/22 12/28/22 Range/Units 04:27 04:27 16:53 WBC 10.39 (4.8-10.8) K/ul RBC 3.23 L (4.20-5.40) M/uL Hgb 9.4 L (12.0-16.0) g/dl Hct 28.1 L (37.0-47.0) % MCV 87.0 (80.0-100.0) fL MCH 29.1 (25.0-34.0) pg MCHC 33.5 (32.0-36.0) g/dL RDW Std Deviation 46.6 H (36.4-46.3) fL RDW Coeff of Mandy 14.6 H (11.5-14.5) % Plt Count 181 (130-400) K/uL MPV 9.9 (9.4-12.4) fL Sodium 138 (136-145) mmol/L Potassium 3.8 (3.5-5.1) mmol/L Chloride 103 (98-107) mmol/L Carbon Dioxide 24 (21-32) mmol/L Anion Gap 11 (3-11) BUN 43 H (6-23) mg/dl Creatinine 3.81 H D (0.6-1.2) mg/dl Est Cr Clr Drug Dosing 14.1 ml/min Est GFR ( Amer) 12.8 ml/min Est GFR (Non-Af Amer) 11.1 ml/min BUN/Creatinine Ratio 11.3 (10-20) Glucose 123 H (70-99(Fasting)) mg/dl POC Glucose 114 H (70-99) mg/dl Calcium 7.7 L (8.6-10.3) mg/dl Phosphorus 3.4 (2.5-4.9) mg/dl Magnesium 1.7 (1.7-2.4) mg/dl 12/28/22 12/28/22 Range/Units 11:57 08:17 WBC (4.8-10.8) K/ul RBC (4.20-5.40) M/uL Hgb (12.0-16.0) g/dl Hct (37.0-47.0) % MCV (80.0-100.0) fL MCH (25.0-34.0) pg MCHC (32.0-36.0) g/dL RDW Std Deviation (36.4-46.3) fL RDW Coeff of Mandy (11.5-14.5) % Plt Count (130-400) K/uL MPV (9.4-12.4) fL Sodium (136-145) mmol/L Potassium (3.5-5.1) mmol/L Chloride (98-107) mmol/L Carbon Dioxide (21-32) mmol/L Anion Gap (3-11) BUN (6-23) mg/dl Creatinine (0.6-1.2) mg/dl Est Cr Clr Drug Dosing ml/min Est GFR ( Amer) ml/min Est GFR (Non-Af Amer) ml/min BUN/Creatinine Ratio (10-20) Glucose (70-99(Fasting)) mg/dl POC Glucose 129 H 130 H (70-99) mg/dl Calcium (8.6-10.3) mg/dl Phosphorus (2.5-4.9) mg/dl Magnesium (1.7-2.4) mg/dl Medications Administered Current Inpatient Medications Acetaminophen (Acetaminophen 325 Mg Tab) 650 mg PO Q6H PRN PRN Reason: Fever/pain Stop: 01/25/23 22:36 Last Admin: 12/26/22 23:30 Dose: 650 mg Amiodarone HCl (Amiodarone 200 Mg Tab) 200 mg PO BID [facility] Stop: 01/20/23 20:59 Last Admin: 12/28/22 20:22 Dose: 200 mg Apixaban (Apixaban 5 Mg Tablet) 5 mg PO BID [facility] Stop: 01/27/23 15:59 Last Admin: 12/28/22 18:20 Dose: 5 mg Calcium Carbonate (Calcium Carbonate 1,250 Mg/5 Ml Udc) 1,250 mg PO BID [facility] Stop: 01/13/23 17:34 Last Admin: 12/28/22 20:22 Dose: 1,250 mg Cetirizine HCl (Cetirizine Hcl 10 Mg Tablet) 5 mg PO Q48H [facility] Stop: 01/18/23 20:59 Last Admin: 12/27/22 20:59 Dose: 5 mg Dextrose (Dextrose 50% 50 Ml Syringe) 25 - 50 ml IV UD PRN; Protocol PRN Reason: Hypoglycemia Protocol Stop: 01/08/23 21:20 Fluticasone Propionate (Fluticasone Propionate Na Spr 16 Gm Btl) 1 sprays EDUARDO QAM [facility] Stop: 01/18/23 11:29 Last Admin: 12/28/22 09:14 Dose: Not Given Glucagon (Glucagon For Inj 1 Mg Vial) 1 mg SQ UD PRN; Protocol PRN Reason: Hypoglycemia Protocol Stop: 01/08/23 21:20 Glucose (Glucose 10 Tab/Tube) 4 - 8 tab PO UD PRN; Protocol PRN Reason: Hypoglycemia Treatment Stop: 01/08/23 21:20 Glucose (Glucose 40% Gel 15 Gm Tube) 15 - 30 gm PO UD PRN; Protocol PRN Reason: Hypoglycemia Protocol Stop: 01/08/23 21:20 Hydralazine HCl (Hydralazine Hcl 20 Mg/Ml Vial) 10 mg IV Q6H PRN PRN Reason: SBP>160 Stop: 01/19/23 17:14 Last Admin: 12/21/22 19:57 Dose: 10 mg Sodium Chloride (Nss 1000ml) 1,000 mls @ 0 mls/hr IV .Q0M PRN PRN Reason: For Hemodialysis Use ONLY Stop: 12/29/22 12:59 Magnesium Oxide (Magnesium Oxide 400 Mg Tab) 400 mg PO BID [facility] Stop: 01/27/23 08:59 Last Admin: 12/28/22 20:22 Dose: 400 mg Melatonin (Melatonin 3 Mg Tab) 3 mg PO HS PRN PRN Reason: Sleep Stop: 01/22/23 20:00 Last Admin: 12/26/22 23:32 Dose: 3 mg Methimazole (Methimazole 5 Mg Tablet) 5 mg PO DAILY [facility] Stop: 01/09/23 08:59 Last Admin: 12/28/22 09:13 Dose: 5 mg Metoprolol Succinate (Metoprolol Succ 50mg Ext Rel Tab) 50 mg PO BID [facility] Stop: 01/26/23 20:59 Last Admin: 12/28/22 20:22 Dose: 50 mg Metoprolol Tartrate (Metoprolol Tartrate 1 Mg/Ml Vial) 2.5 mg IV Q6H PRN PRN Reason: HR above 120 Stop: 01/10/23 19:14 Last Admin: 12/28/22 17:26 Dose: 2.5 mg Miscellaneous (Carbohydrates For Hypoglycemia ) 15 - 30 gm PO UD PRN PRN Reason: Hypoglycemia Protocol Stop: 01/08/23 21:20 Ondansetron HCl (Ondansetron Inj 2 Mg/Ml 2 Ml Vial) 4 mg IV Q6H PRN PRN Reason: Nausea And Vomiting Stop: 01/08/23 21:20 Last Admin: 12/18/22 01:58 Dose: 4 mg Polyethylene Glycol (Polyethylene (Miralax) 17 Gm Pack) 17 gm PO DAILY PRN PRN Reason: Constipation Stop: 01/27/23 05:50 Senna/Docusate Sodium (Docusate Sodium/Senna 50/8.6mg Tab) 1 tab PO BID [facility] Stop: 01/09/23 20:59 Last Admin: 12/28/22 20:22 Dose: 1 tab Sertraline HCl (Sertraline Hcl 50 Mg Tablet) 50 mg PO DAILY [facility] Stop: 01/09/23 08:59 Last Admin: 12/28/22 09:13 Dose: 50 mg (1) Acute pancreatitis Acute pancreatitis complication: unspecified Pancreatitis type: unspecified pancreatitis type Qualified Code(s): K85.90 - Acute pancreatitis without necrosis or infection, unspecified (2) Nausea and vomiting Vomiting type: unspecified Qualified Code(s): R11.2 - Nausea with vomiting, unspecified
--- NOTE | 2022-12-29 11:32 | Dialysis Progress Note ---
Date of Service December 29, 2022 Assessment & Plan Admission and Anticipated Discharge Date Admission Date: December 09, 2022 Subjective Assessment & Plan (1) SAMMY (acute kidney injury): Plan: baseline creatinine 0.8; dialysis dependent oligoanuric stage 3 SAMMY ischemic ATN multifactorial initially including IV contrast, poor po intake prior to admission (presenting s.g. on UA > 1045), continued losartan in setting of above (last dose 12/11), sepsis from pancreatitis/cholecystitis, then compounded by poor renal perfusion w/ pAF and hypotension for several days thoug h this instability resolved by December 13 for the most part. ATN did not resolve/worsened w/ ongoing sepsis; first HD 12/18; TDC on 12/22 continue strict I/O and daily bmp to monitor for renal recovery. No need for renal diet for now Dialysis today as ordered. 2k and take 2-2.5 kilo off. CVC seems to have clot every time and works after the tpa. Same thing happened both sunday and sunday and today. So even putting new Catheter is not going to work. Creat not rising much so maybe some glimpses of renal recovery [facility] get Alteplase by special order. So eventually we can consider transferring there if felt needed Subjective Seen in Dialysis. tolerating fine. CVC worked after the Alteplase. Feels weak but no new issues. Review of Systems Review of Systems: All systems reviewed & are unremarkable except as noted in Subjective Physical Exam Constitutional: well developed and well nourished; no acute distress Eyes: EOM intact bilaterally ENMT: Ears: no external ear abnormality Nose: no external nose abnormality Mouth: + dry oral mucous membranes Neck: no nuchal rigidity Respiratory: normal respiratory effort and + paradoxical thoraco-abdominal movement; no respiratory distress Auscultation: + diminished lung sounds (markedly) Cardiovascular: Rate/Rhythm: regular rate and regular rhythm Extremities: + edema (1-2+ distally) Gastrointestinal (Abdomen): Inspection/Auscultation: normal bowel sounds; + abdomen abnormal to inspection (Right upper quadrant drain) Percussion/Palpation: abdomen soft; abdomen nontender Musculoskeletal: Extremities: + abnormal strength (cannot situp w/o asst; BLE weak) Skin: no rashes, warm and dry Psychiatric: Orientation: alert, oriented x 3, oriented to person and cooperative Results & Data Vital Signs (Past 12 Hours) Vital Signs Temp Pulse Pulse Resp BP BP Pulse Ox 12/29/22 11:00 60 107/48 L 12/29/22 10:30 54 L 92/56 L 12/29/22 10:00 54 L 89/47 L 12/29/22 09:30 95 H 99/62 L 12/29/22 09:11 53 L 106/70 12/29/22 09:05 36.8 C 93 H 12/29/22 08:00 37.1 C 96 H 20 155/77 H 95 12/29/22 07:55 49 L 12/29/22 03:00 37.0 C 127 H 20 120/73 93 12/29/22 00:00 90 O2 Del Method 12/29/22 11:00 12/29/22 10:30 12/29/22 10:00 12/29/22 09:30 12/29/22 09:11 12/29/22 09:05 12/29/22 08:00 Room Air 12/29/22 07:55 12/29/22 03:00 Room Air 12/29/22 00:00
[2022-12-29] MEDS: SERTRALINE HCL 50 MG TABLET PO SCH (12:46)
[2022-12-29] MEDS: METOPROLOL SUCC 50MG EXT REL TAB PO SCH ×2 (12:46→21:46)
[2022-12-29] MEDS: CALCIUM CARBONATE 1,250 MG/5 ML UDC PO SCH ×2 (12:46→21:45)
[2022-12-29] MEDS: APIXABAN 5 MG TABLET PO SCH ×2 (12:46→21:46)
[2022-12-29] MEDS: MAGNESIUM OXIDE 400 MG TAB PO SCH ×2 (12:46→21:45)
[2022-12-29] MEDS: AMIODARONE 200 MG TAB PO SCH ×2 (12:46→21:46)
[2022-12-29] MEDS: FLUTICASONE PROPIONATE NA SPR 16 GM BTL NAE SCH (12:47)
[2022-12-29] MEDS: methIMAzole 5 MG TABLET PO SCH (12:47)
[2022-12-29] MEDS: DOCUSATE SODIUM/SENNA 50/8.6MG TAB PO SCH ×2 (12:48→21:56)
[2022-12-29] MEDS: METOPROLOL TARTRATE 1 MG/ML VIAL IV PRN (15:55)
[2022-12-29] MEDS ORDERED: METOPROLOL TARTRATE 1 MG/ML VIAL IV STA (18:21)
[2022-12-29] MEDS: CETIRIZINE HCL 10 MG TABLET PO SCH (21:46)
[2022-12-30] MEDS ORDERED: HYDROmorphone INJ 0.5 MG/0.5 ML SYR IV STA (00:07)
[2022-12-30 06:32] LABS: Hematocrit (blood only) 29.8 % (37.0-47.0); Hemoglobin 9.9 g/dl (12.0-16.0)
[2022-12-30 06:51] LABS: BUN Creatinine Ratio 11.4 (10-20); Calcium 7.8 mg/dl (8.6-10.3); Creatinine Clr Calc Pharmacy 17.4 ml/min; Est GFR (African American) 15.6 ml/min; Est GFR (Non-African American) 13.5 ml/min; Magnesium 1.8 mg/dl (1.7-2.4); Potassium 3.9 mmol/L (3.5-5.1)
--- NOTE | 2022-12-30 08:02 | Hospitalist Progress Note ---
Date of Service December 30, 2022 Assessment & Plan (1) Acute pancreatitis: (2) Nausea and vomiting: Plan: Possible related togallstone related pancreatitis Present on admission with abdominal pain that radiating to back associating with vomiting and nausea CT abd/pel showedperipancreatic fat stranding is seen concerning for pancreatitis. Prominence of the gallbladder may be reactive or less likely may represent acute cholecystitis. Abdomen u/s showedgallbladder is distended and full of stones/sludge as detailed above. Findings are suspicious for acute cholecystitis. Lipase above 4000's on admission, Lipase 2960--> then 678-->63 Elevated LFT with AST 313 and ALT 536 S/p Lap chol and ERCPwith sphincterotomy and balloon sweeping of the bile duct for stones and puswith stent placement on 12/10/22 CT abd/P on 12/17/22 noted severe pancreatitis similar to prior study, small amount of perihepatic fluid/small amount of pneumoperitoneum, subhepatic catheter unchanged in position, CBD stent with associated pneumobilia, small b/l pleural effusion, unchanged airspace opacities in the lungs. LFT normalized Tolerated diet Clinically improved significantly Septic shock she was in the ICU on IV pressor Persistent leukocytosis WBC peaked 30.7, then continue to drop to 12K , now normalized to 10K Blood culture, urine culture, fungal culture are negative Completed IV Zosyn course DC caspofungin on 12/26 since patient completed 7 days course Blood and urine culture were negative MIMI drain fluid culture negative so far Acute cholangitis Transaminitis LFTs normalized. Hgb is 9.9 today Gen surg consulted and following S/p Lap chol and ERCPwith sphincterotomy and balloon sweeping of the bile duct for stones and puswith stent placement LFT continue trending down with AST 31, ALT 119 and Alk 104 WBC continue trending down , now normalized Gastro and surgery on board Completed the course of Zosyn Will need repeat ERCP in 2 month for stent removal Plan to leave the drain until likely after her stent removal although may remove sooner but will likely stay for at least 4 to 6 weeks Acute respiratory failure with hypoxia Likely from dependent atelectasis Continue to encourage incentive spirometry and flutter O2 supplementation to keep oxygen saturation between 88-92% Wean off oxygen as tolerated Saturated well on RA Paroxysmal Afib Episodes of Afib (w/ RVR) during her hosp. stay ECHO showed normal LV wall function. EF 65 to 70 % Cardiology consulted Initially No anticoagulant considering comorbidities: severe pancreatitis/risk of hemorrhagic pancreatitis, recent surgery Continue metoprolol and amiodarone PO , metoprolol dose increased Cardiology following Monitor and replace electrolytes 12/28 -discussed with SHAKE FEEDER, and surgery, regarding anticoagulation. Both providers agree that we can start anticoagulation for paroxysmal A-fib. Discussed with pharmacy regarding patient's renal function, recommend 5 mg twice daily. Started on Eliquis, no incr. bleed noted, H&H stable - 12/19- 12/30 SAMMY Worsening renal function. Creatinine increased up to 8.38, BUN 110 on 12/18/22 Patient transferred to ICU on 12/18/22 and started on HD same day Nephrology following closely Avoid nephrotoxic agents Monitor renal fuction, BMP ? Vaginal bleeding possible related to urethral trauma from the catheter. No blood seen in the urine from the catalan cath Hgb 9.9 today held subq heparin [employer]ENIOR STAFF [employer] EMPLOYMENT consulted (see consult) - and discussed in person - ok to start anticoagulation clinically stable Generalized weakness Continue PT/OT eval Fall precaution Pt would like to keep the catalan cath for now and once she gets stronger to remove it Will need rehab placement Prediabetes Recent Hba1c 6.1 on 12/10/22 Continue monitor BS Hypertension BP been at goal Will consider to start on BP med if continues to be elevated Continue monitor BP Hyperthyroidism Continue Methimazole Anxiety Continue Sertraline Code status full code DVT px SCD , Eliquis Continue PT/OT Admission and Anticipated Discharge Date Admission Date: December 09, 2022 Subjective Pt was seen in follow up of complicated hosp. stay, s/p ercp, s/p cholecystectomy, now on HD Discussed anticoag. w/ client administrator and surgery and started pt on Eliquis. Yesterday PM again in Afib w/ RVR. Today patient is sitting up in bed in no acute distress. She reports feeling better and reports ok appetite however her sister and daughter concerned about poor eating. Patient's sister present at the bedside and daughter on the phone and updated. Pt denies any fever chills, chest pain, palpitation, shortness of breath. Denies abdominal pain. Discussed ambulation - getting her to sit up or poss. to chair, RN aware. Review of Systems Review of Systems: All systems reviewed & are unremarkable except as noted in Subjective Physical Exam Physical Exam: General- WD/WN F, frail, in NAD Head- atraumatic Eyes- PERRL, EOMI, ENT- oropharynx clear Neck- supple, no JVD Lungs- +diminished BS Heart- regular, no murmur Abdomen- normal bowel sounds, soft, nontender to palp., + drain visualized Extremities- +edema, moves extremities Neuro- alert, oriented x 3; PERRL, EOMI; no facial palsy; no dysarthria, moves extremities Skin- warm & dry Results & Data Results & Data Vital Signs (Past 12 Hours) Vital Signs Temp Pulse Pulse Resp BP Pulse Ox O2 Del Method 12/30/22 06:02 85 12/30/22 00:00 85 12/30/22 03:42 36.7 C 53 L 17 118/66 96 Nasal Cannula 12/30/22 00:10 36.7 C 115 H 19 120/61 95 Nasal Cannula O2 Flow Rate 12/30/22 06:02 12/30/22 00:00 12/30/22 03:42 2 12/30/22 00:10 2 Laboratory Results 12/30/22 12/30/22 Range/Units 05:59 05:59 Hgb 9.9 L (12.0-16.0) g/dl Hct 29.8 L (37.0-47.0) % Sodium 137 (136-145) mmol/L Potassium 3.9 (3.5-5.1) mmol/L Chloride 103 (98-107) mmol/L Carbon Dioxide 24 (21-32) mmol/L Anion Gap 10 (3-11) BUN 37 H (6-23) mg/dl Creatinine 3.24 H D (0.6-1.2) mg/dl Est Cr Clr Drug Dosing 17.4 ml/min Est GFR ( Amer) 15.6 ml/min Est GFR (Non-Af Amer) 13.5 ml/min BUN/Creatinine Ratio 11.4 (10-20) Glucose 138 H (70-99(Fasting)) mg/dl Calcium 7.8 L (8.6-10.3) mg/dl Phosphorus 3.0 (2.5-4.9) mg/dl Magnesium 1.8 (1.7-2.4) mg/dl Medications Administered Current Inpatient Medications Acetaminophen (Acetaminophen 325 Mg Tab) 650 mg PO Q6H PRN PRN Reason: Fever/pain Stop: 01/25/23 22:36 Last Admin: 12/26/22 23:30 Dose: 650 mg Amiodarone HCl (Amiodarone 200 Mg Tab) 200 mg PO BID [facility] Stop: 01/20/23 20:59 Last Admin: 12/29/22 21:46 Dose: 200 mg Apixaban (Apixaban 5 Mg Tablet) 5 mg PO BID [facility] Stop: 01/27/23 15:59 Last Admin: 12/29/22 21:46 Dose: 5 mg Calcium Carbonate (Calcium Carbonate 1,250 Mg/5 Ml Udc) 1,250 mg PO BID [facility] Stop: 01/13/23 17:34 Last Admin: 12/29/22 21:45 Dose: 1,250 mg Cetirizine HCl (Cetirizine Hcl 10 Mg Tablet) 5 mg PO Q48H [facility] Stop: 01/18/23 20:59 Last Admin: 12/29/22 21:46 Dose: 5 mg Dextrose (Dextrose 50% 50 Ml Syringe) 25 - 50 ml IV UD PRN; Protocol PRN Reason: Hypoglycemia Protocol Stop: 01/08/23 21:20 Fluticasone Propionate (Fluticasone Propionate Na Spr 16 Gm Btl) 1 sprays EDUARDO QAM [facility] Stop: 01/18/23 11:29 Last Admin: 12/29/22 12:47 Dose: Not Given Glucagon (Glucagon For Inj 1 Mg Vial) 1 mg SQ UD PRN; Protocol PRN Reason: Hypoglycemia Protocol Stop: 01/08/23 21:20 Glucose (Glucose 10 Tab/Tube) 4 - 8 tab PO UD PRN; Protocol PRN Reason: Hypoglycemia Treatment Stop: 01/08/23 21:20 Glucose (Glucose 40% Gel 15 Gm Tube) 15 - 30 gm PO UD PRN; Protocol PRN Reason: Hypoglycemia Protocol Stop: 01/08/23 21:20 Hydralazine HCl (Hydralazine Hcl 20 Mg/Ml Vial) 10 mg IV Q6H PRN PRN Reason: SBP>160 Stop: 01/19/23 17:14 Last Admin: 12/21/22 19:57 Dose: 10 mg Magnesium Oxide (Magnesium Oxide 400 Mg Tab) 400 mg PO BID [facility] Stop: 01/27/23 08:59 Last Admin: 12/29/22 21:45 Dose: 400 mg Melatonin (Melatonin 3 Mg Tab) 3 mg PO HS PRN PRN Reason: Sleep Stop: 01/22/23 20:00 Last Admin: 12/26/22 23:32 Dose: 3 mg Methimazole (Methimazole 5 Mg Tablet) 5 mg PO DAILY [facility] Stop: 01/09/23 08:59 Last Admin: 12/29/22 12:47 Dose: 5 mg Metoprolol Succinate (Metoprolol Succ 50mg Ext Rel Tab) 50 mg PO BID [facility] Stop: 01/26/23 20:59 Last Admin: 12/29/22 21:46 Dose: 50 mg Metoprolol Tartrate (Metoprolol Tartrate 1 Mg/Ml Vial) 2.5 mg IV Q6H PRN PRN Reason: HR above 120 Stop: 01/10/23 19:14 Last Admin: 12/29/22 15:55 Dose: 2.5 mg Miscellaneous (Carbohydrates For Hypoglycemia ) 15 - 30 gm PO UD PRN PRN Reason: Hypoglycemia Protocol Stop: 01/08/23 21:20 Ondansetron HCl (Ondansetron Inj 2 Mg/Ml 2 Ml Vial) 4 mg IV Q6H PRN PRN Reason: Nausea And Vomiting Stop: 01/08/23 21:20 Last Admin: 12/18/22 01:58 Dose: 4 mg Polyethylene Glycol (Polyethylene (Miralax) 17 Gm Pack) 17 gm PO DAILY PRN PRN Reason: Constipation Stop: 01/27/23 05:50 Senna/Docusate Sodium (Docusate Sodium/Senna 50/8.6mg Tab) 1 tab PO BID [facility] Stop: 01/09/23 20:59 Last Admin: 12/29/22 21:56 Dose: 1 tab Sertraline HCl (Sertraline Hcl 50 Mg Tablet) 50 mg PO DAILY [facility] Stop: 01/09/23 08:59 Last Admin: 12/29/22 12:46 Dose: 50 mg (1) Acute pancreatitis Acute pancreatitis complication: unspecified Pancreatitis type: unspecified pancreatitis type Qualified Code(s): K85.90 - Acute pancreatitis without necros is or infection, unspecified (2) Nausea and vomiting Vomiting type: unspecified Qualified Code(s): R11.2 - Nausea with vomiting, unspecified
--- NOTE | 2022-12-30 08:25 | Electrocardiogram Report ---
Test Reason : Blood Pressure : / mmHG Vent. Rate : 133 BPM Atrial Rate : 129 BPM P-R Int : 000 ms QRS Dur : 082 ms QT Int : 198 ms P-R-T Axes : 000 -03 218 degrees QTc Int : 294 ms Atrial flutter with rapid ventricular response Minimal voltage criteria for LVH, may be normal variant Abnormal ECG When compared with ECG of 27-DEC-2022 06:26, HR has increased by 53 bpm Sinus rhythm no longer present Confirmed by Thanh Cervantes ([id number]) on 12/30/2022 8:25:06 AM Referred By: REFERRED SELF Confirmed By:Thanh Cervantes
[2022-12-30] MEDS: AMIODARONE 200 MG TAB PO SCH ×2 (09:44→21:35)
[2022-12-30] MEDS: METOPROLOL SUCC 50MG EXT REL TAB PO SCH ×2 (09:44→21:34)
[2022-12-30] MEDS: MAGNESIUM OXIDE 400 MG TAB PO SCH ×2 (09:44→21:35)
[2022-12-30] MEDS: APIXABAN 5 MG TABLET PO SCH ×2 (09:44→21:35)
[2022-12-30] MEDS: methIMAzole 5 MG TABLET PO SCH (09:45)
[2022-12-30] MEDS: SERTRALINE HCL 50 MG TABLET PO SCH (09:45)
[2022-12-30] MEDS: CALCIUM CARBONATE 1,250 MG/5 ML UDC PO SCH ×2 (09:45→21:35)
[2022-12-30] MEDS: FLUTICASONE PROPIONATE NA SPR 16 GM BTL NAE SCH (09:46)
[2022-12-30] MEDS: DOCUSATE SODIUM/SENNA 50/8.6MG TAB PO SCH ×2 (09:53→21:38)
[2022-12-31] MEDS ORDERED: HYDROmorphone INJ 0.5 MG/0.5 ML SYR IV STA (01:33)
[2022-12-31 06:11] LABS: Hematocrit (blood only) 29.2 % (37.0-47.0); Hemoglobin 9.6 g/dl (12.0-16.0)
[2022-12-31 06:18] LABS: BUN Creatinine Ratio 12.8 (10-20); Calcium 7.7 mg/dl (8.6-10.3); Creatinine Clr Calc Pharmacy 14.2 ml/min; Est GFR (African American) 12.2 ml/min; Est GFR (Non-African American) 10.5 ml/min; Magnesium 1.9 mg/dl (1.7-2.4); Phosphorus 3.4 mg/dl (2.5-4.9)
[2022-12-31] MEDS: APIXABAN 5 MG TABLET PO SCH ×2 (08:05→20:54)
[2022-12-31] MEDS: AMIODARONE 200 MG TAB PO SCH ×2 (08:05→20:54)
[2022-12-31] MEDS: METOPROLOL SUCC 50MG EXT REL TAB PO SCH ×2 (08:05→20:55)
[2022-12-31] MEDS: SERTRALINE HCL 50 MG TABLET PO SCH (08:06)
[2022-12-31] MEDS: FLUTICASONE PROPIONATE NA SPR 16 GM BTL NAE SCH (08:06)
[2022-12-31] MEDS: MAGNESIUM OXIDE 400 MG TAB PO SCH ×2 (08:06→20:54)
[2022-12-31] MEDS: CALCIUM CARBONATE 1,250 MG/5 ML UDC PO SCH ×2 (08:06→20:52)
[2022-12-31] MEDS: methIMAzole 5 MG TABLET PO SCH (08:06)
[2022-12-31] MEDS: DOCUSATE SODIUM/SENNA 50/8.6MG TAB PO SCH ×2 (08:08→20:58)
--- NOTE | 2022-12-31 08:27 | Hospitalist Progress Note ---
Date of Service December 31, 2022 Assessment & Plan (1) Acute pancreatitis: (2) Nausea and vomiting: Plan: Possible related togallstone related pancreatitis Present on admission with abdominal pain that radiating to back associating with vomiting and nausea CT abd/pel showedperipancreatic fat stranding is seen concerning for pancreatitis. Prominence of the gallbladder may be reactive or less likely may represent acute cholecystitis. Abdomen u/s showedgallbladder is distended and full of stones/sludge as detailed above. Findings are suspicious for acute cholecystitis. Lipase above 4000's on admission, Lipase 2960--> then 678-->63 Elevated LFT with AST 313 and ALT 536 S/p Lap chol and ERCPwith sphincterotomy and balloon sweeping of the bile duct for stones and puswith stent placement on 12/10/22 CT abd/P on 12/17/22 noted severe pancreatitis similar to prior study, small amount of perihepatic fluid/small amount of pneumoperitoneum, subhepatic catheter unchanged in position, CBD stent with associated pneumobilia, small b/l pleural effusion, unchanged airspace opacities in the lungs. LFT normalized Tolerated diet Clinically improved significantly Septic shock she was in the ICU on IV pressor Persistent leukocytosis WBC peaked 30.7, then continue to drop to 12K , now normalized to 10K Blood culture, urine culture, fungal culture are negative Completed IV Zosyn course DC caspofungin on 12/26 since patient completed 7 days course Blood and urine culture were negative MIMI drain fluid culture negative so far Acute cholangitis Transaminitis LFTs normalized. Hgb is 9.9 today Gen surg consulted and following S/p Lap chol and ERCPwith sphincterotomy and balloon sweeping of the bile duct for stones and puswith stent placement LFT continue trending down with AST 31, ALT 119 and Alk 104 WBC continue trending down , now normalized Gastro and surgery on board Completed the course of Zosyn Will need repeat ERCP in 2 month for stent removal Plan to leave the drain until likely after her stent removal although may remove sooner but will likely stay for at least 4 to 6 weeks Acute respiratory failure with hypoxia Likely from dependent atelectasis Continue to encourage incentive spirometry and flutter O2 supplementation to keep oxygen saturation between 88-92% Wean off oxygen as tolerated Saturated well on RA Paroxysmal Afib Episodes of Afib (w/ RVR) during her hosp. stay ECHO showed normal LV wall function. EF 65 to 70 % Cardiology consulted Initially No anticoagulant considering comorbidities: severe pancreatitis/risk of hemorrhagic pancreatitis, recent surgery Continue metoprolol and amiodarone PO , metoprolol dose increased Cardiology following Monitor and replace electrolytes 12/28 -discussed with RN PLASTIC SURGERY, and surgery, regarding anticoagulation. Both providers agree that we can start anticoagulation for paroxysmal A-fib. Discussed with pharmacy regarding patient's renal function, recommend 5 mg twice daily. Started on Eliquis, no incr. bleed noted, H&H stable - 12/19- 12/30 SAMMY Worsening renal function. Creatinine increased up to 8.38, BUN 110 on 12/18/22 Patient transferred to ICU on 12/18/22 and started on HD same day Nephrology following closely Avoid nephrotoxic agents Monitor renal fuction, BMP ? Vaginal bleeding possible related to urethral trauma from the catheter. No blood seen in the urine from the catalan cath Hgb 9.6 today (been stable) held subq heparin APPLE PICKER consulted (see consult) - and discussed in person - ok to start anticoagulation-> started Eliquis clinically stable Generalized weakness Continue PT/OT eval Fall precaution Pt would like to keep the catalan cath for now and once she gets stronger to remove it Will need rehab placement Prediabetes Recent Hba1c 6.1 on 12/10/22 Continue monitor BS Hypertension BP been at goal Will consider to start on BP med if continues to be elevated Continue monitor BP Hyperthyroidism Continue Methimazole Anxiety Continue Sertraline Code status full code DVT px SCD , Eliquis Continue PT/OT Admission and Anticipated Discharge Date Admission Date: December 09, 2022 Subjective Pt was seen in follow up of complicated hosp. stay, s/p ercp, s/p cholecystectomy, now on HD Discussed anticoag. w/ service desk team lead and surgery and started pt on Eliquis. Today patient is sitting up in bed in no acute distress. Yesterday tried to sit pt up from bed, and per RN, pt was uncomfortable. Patient cannot specify, exactly how uncomfortable. She has some back pain. She denies any abdominal pain. Sister at the bedside reports that even with cholecystitis/sepsis, she did not really have abdominal pain,? Secondary to MS. Patient's also at the bedside and updated. Pt denies any fever chills, chest pain, palpitation, shortness of breath. Denies abdominal pain. Review of Systems Review of Systems: All systems reviewed & are unremarkable except as noted in Subjective Physical Exam Physical Exam: General- WD/WN F, frail, in NAD Head- atraumatic Eyes- PERRL, EOMI, ENT- oropharynx clear Neck- supple, no JVD Lungs- +diminished BS Heart- regular, no murmur Abdomen- normal bowel sounds, soft, nontender to palp., + drain visualized Extremities- +edema, moves extremities Neuro- alert, oriented x 3; PERRL, EOMI; no facial palsy; no dysarthria, moves extremities Skin- warm & dry Results & Data Results & Data Vital Signs (Past 12 Hours) Vital Signs Temp Pulse Pulse Pulse Resp BP BP 12/31/22 06:03 95 H 12/31/22 07:42 36.6 C 84 19 135/77 12/31/22 00:40 163 H 12/30/22 23:40 132 H 12/31/22 03:17 36.8 C 100 H 18 132/56 L 12/30/22 21:20 12/30/22 23:18 37.1 C 75 16 136/75 Pulse Ox O2 Del Method 12/31/22 06:03 12/31/22 07:42 91 Room Air 12/31/22 00:40 12/30/22 23:40 12/31/22 03:17 92 Room Air 12/30/22 21:20 Room Air 12/30/22 23:18 92 Room Air Laboratory Results 12/31/22 12/31/22 Range/Units 05:31 05:31 Hgb 9.6 L (12.0-16.0) g/dl Hct 29.2 L (37.0-47.0) % Sodium 136 (136-145) mmol/L Potassium 4.0 (3.5-5.1) mmol/L Chloride 102 (98-107) mmol/L Carbon Dioxide 23 (21-32) mmol/L Anion Gap 11 (3-11) BUN 51 H (6-23) mg/dl Creatinine 3.97 H D (0.6-1.2) mg/dl Est Cr Clr Drug Dosing 14.2 ml/min Est GFR ( Amer) 12.2 ml/min Est GFR (Non-Af Amer) 10.5 ml/min BUN/Creatinine Ratio 12.8 (10-20) Glucose 128 H (70-99(Fasting)) mg/dl Calcium 7.7 L (8.6-10.3) mg/dl Phosphorus 3.4 (2.5-4.9) mg/dl Magnesium 1.9 (1.7-2.4) mg/dl Medications Administered Current Inpatient Medications Acetaminophen (Acetaminophen 325 Mg Tab) 650 mg PO Q6H PRN PRN Reason: Fever/pain Stop: 01/25/23 22:36 Last Admin: 12/26/22 23:30 Dose: 650 mg Amiodarone HCl (Amiodarone 200 Mg Tab) 200 mg PO BID [facility] Stop: 01/20/23 20:59 Last Admin: 12/31/22 08:05 Dose: 200 mg Apixaban (Apixaban 5 Mg Tablet) 5 mg PO BID [facility] Stop: 01/27/23 15:59 Last Admin: 12/31/22 08:05 Dose: 5 mg Calcium Carbonate (Calcium Carbonate 1,250 Mg/5 Ml Udc) 1,250 mg PO BID [facility] Stop: 01/13/23 17:34 Last Admin: 12/31/22 08:06 Dose: 1,250 mg Cetirizine HCl (Cetirizine Hcl 10 Mg Tablet) 5 mg PO Q48H [facility] Stop: 01/18/23 20:59 Last Admin: 12/29/22 21:46 Dose: 5 mg Dextrose (Dextrose 50% 50 Ml Syringe) 25 - 50 ml IV UD PRN; Protocol PRN Reason: Hypoglycemia Protocol Stop: 01/08/23 21:20 Fluticasone Propionate (Fluticasone Propionate Na Spr 16 Gm Btl) 1 sprays EDUARDO QAM [facility] Stop: 01/18/23 11:29 Last Admin: 12/31/22 08:06 Dose: Not Given Glucagon (Glucagon For Inj 1 Mg Vial) 1 mg SQ UD PRN; Protocol PRN Reason: Hypoglycemia Protocol Stop: 01/08/23 21:20 Glucose (Glucose 10 Tab/Tube) 4 - 8 tab PO UD PRN; Protocol PRN Reason: Hypoglycemia Treatment Stop: 01/08/23 21:20 Glucose (Glucose 40% Gel 15 Gm Tube) 15 - 30 gm PO UD PRN; Protocol PRN Reason: Hypoglycemia Protocol Stop: 01/08/23 21:20 Hydralazine HCl (Hydralazine Hcl 20 Mg/Ml Vial) 10 mg IV Q6H PRN PRN Reason: SBP>160 Stop: 01/19/23 17:14 Last Admin: 12/21/22 19:57 Dose: 10 mg Magnesium Oxide (Magnesium Oxide 400 Mg Tab) 400 mg PO BID [facility] Stop: 01/27/23 08:59 Last Admin: 12/31/22 08:06 Dose: 400 mg Melatonin (Melatonin 3 Mg Tab) 3 mg PO HS PRN PRN Reason: Sleep Stop: 01/22/23 20:00 Last Admin: 12/26/22 23:32 Dose: 3 mg Methimazole (Methimazole 5 Mg Tablet) 5 mg PO DAILY [facility] Stop: 01/09/23 08:59 Last Admin: 12/31/22 08:06 Dose: 5 mg Metoprolol Succinate (Metoprolol Succ 50mg Ext Rel Tab) 50 mg PO BID [facility] Stop: 01/26/23 20:59 Last Admin: 12/31/22 08:05 Dose: 50 mg Metoprolol Tartrate (Metoprolol Tartrate 1 Mg/Ml Vial) 2.5 mg IV Q6H PRN PRN Reason: HR above 120 Stop: 01/10/23 19:14 Last Admin: 12/29/22 15:55 Dose: 2.5 mg Miscellaneous (Carbohydrates For Hypoglycemia ) 15 - 30 gm PO UD PRN PRN Reason: Hypoglycemia Protocol Stop: 01/08/23 21:20 Ondansetron HCl (Ondansetron Inj 2 Mg/Ml 2 Ml Vial) 4 mg IV Q6H PRN PRN Reason: Nausea And Vomiting Stop: 01/08/23 21:20 Last Admin: 12/18/22 01:58 Dose: 4 mg Polyethylene Glycol (Polyethylene (Miralax) 17 Gm Pack) 17 gm PO DAILY PRN PRN Reason: Constipation Stop: 01/27/23 05:50 Senna/Docusate Sodium (Docusate Sodium/Senna 50/8.6mg Tab) 1 tab PO BID [facility] Stop: 01/09/23 20:59 Last Admin: 12/31/22 08:08 Dose: 1 tab Sertraline HCl (Sertraline Hcl 50 Mg Tablet) 50 mg PO DAILY [facility] Stop: 01/09/23 08:59 Last Admin: 12/31/22 08:06 Dose: 50 mg (1) Acute pancreatitis Acute pancreatitis complication: unspecified Pancreatitis type: unspecified pancreatitis type Qualified Code(s): K85.90 - Acute pancreatitis without necrosis or infection, unspecified (2) Nausea and vomiting Vomiting type: unspecified Qualified Code(s): R11.2 - Nausea with vomiting, unspecified
--- NOTE | 2022-12-31 15:23 | CT Scan Report ---
CT abd pelvis wo con CLINICAL HISTORY: abd. pain s/p surgery status post left: 80 and ERCP with sphincterotomy and stent p lacement 12/10/2022 history of pancreatitis. TECHNIQUE: Helical axial images of the abdomen and pelvis were obtained. Automated dose lowering tech niques and/or adjustment according to patient size were utilized for this exam. This exam was perfor med without intravenous contrast. CT DOSE: 950.30 mGy.cm COMPARISON: Comparison is made to CT abdomen pelvis 12/17/2022 FINDINGS: Lower chest: Bibasilar atelectasis versus scarring is seen. Liver: Unremarkable. No focal lesions are seen. Gallbladder and biliary tree: Likely significant remnant gallbladder is seen. Biliary duct stent is s een with pneumobilia. Pancreas: Peripancreatic fat stranding is somewhat decreased from prior exam. There are cystic lesion s in the body and tail of the pancreas which are somewhat more well-defined than in the prior exam. Spleen: Unremarkable. Adrenals: Unremarkable. Kidneys and ureters: Nonobstructive nephrolithiasis is seen. Bladder: Tomlinson catheter is seen. Reproductive organs: Unremarkable. Bowel: Unremarkable. Lymph nodes Retroperitoneal: Subcentimeter lymph nodes are noted. Pelvic: Unremarkable. Mesenteric: Unremarkable. Peritoneum: Fat stranding is seen in the peritoneum. A abdominal drain is noted in the right mid abdo men with its tip in the gallbladder fossa. Vessels: Unremarkable. Abdominal wall: Soft tissue thickening and fat stranding is seen about the course of the right abdomi nal catheter. No drainable subcutaneous fluid collection. Bones: Degenerative changes in the visualized spine. IMPRESSION: 1. Peripancreatic stranding is somewhat decreased from prior exam. There is interval increased organ ization of peripancreatic fluid collections compatible with acute peripancreatic collection. 2. Likely significant remnant gallbladder noted in this patient status post cholecystectomy. 3. Percutaneous drainage catheter is again seen, a small amount of fluid in subcutaneous gas is note d along the soft tissue tract. 4. Bilateral nephrolithiasis without evidence of obstruction. 5. Additional findings as above. ACT 112: Negative or not required by law. Electronically signed by: Yury Zamora M.D. 12/31/2022 3:20 PM
[2022-12-31] MEDS: CETIRIZINE HCL 10 MG TABLET PO SCH (20:54)
[2023-01-01] MEDS ORDERED: oxyCODONE HCL IR 5 MG TAB (IMMEDIATE RELEASE) PO STA (04:18)
[2023-01-01 06:47] LABS: Basophils # (auto) 0.12 K/uL (0-0.2); Eosinophils # (auto) 0.79 K/uL (0-0.50); Eosinophils % (auto) 6.7 %; Hematocrit (blood only) 30.1 % (37.0-47.0); Hemoglobin 9.9 g/dl (12.0-16.0); Immature Granulocytes # (auto) 0.05 K/uL (0.01-0.20); Immature Granulocytes % (auto) 0.4 %; Lymphocytes # (auto) 3.56 K/uL (1.2-3.4); Lymphocytes % (auto) 30.3 %; Mean Corpuscular Hemoglobin 28.9 pg (25.0-34.0); Mean Corpuscular Hgb Conc 32.9 g/dL (32.0-36.0); Mean Platelet Volume 10.4 fL (9.4-12.4); Monocytes # (auto) 1.82 K/uL (0.11-0.59); Monocytes % (auto) 15.5 %; Neutrophils # (auto) 5.42 K/uL (1.40-6.50); Neutrophils % (auto) 46.1 %; Platelet Count 215 K/uL (130-400); RDW Coefficient of Variation 14.6 % (11.5-14.5); RDW Standard Deviation 46.7 fL (36.4-46.3); Red Blood Count 3.42 M/uL (4.20-5.40); White Blood Count 11.76 K/ul (4.8-10.8)
[2023-01-01 07:02] LABS: Calcium 7.8 mg/dl (8.6-10.3); Creatinine Clr Calc Pharmacy 13.4 ml/min; Est GFR (African American) 12.1 ml/min; Est GFR (Non-African American) 10.4 ml/min; Phosphorus 4.1 mg/dl (2.5-4.9); Potassium 4.1 mmol/L (3.5-5.1)
--- NOTE | 2023-01-01 07:18 | Hospitalist Progress Note ---
Date of Service January 01, 2023 Assessment & Plan (1) Acute pancreatitis: (2) Nausea and vomiting: Plan: Possible related togallstone related pancreatitis Present on admission with abdominal pain that radiating to back associating with vomiting and nausea CT abd/pel showedperipancreatic fat stranding is seen concerning for pancreatitis. Prominence of the gallbladder may be reactive or less likely may represent acute cholecystitis. Abdomen u/s showedgallbladder is distended and full of stones/sludge as detailed above. Findings are suspicious for acute cholecystitis. Lipase above 4000's on admission, Lipase 2960--> then 678-->63 Elevated LFT with AST 313 and ALT 536 S/p Lap chol and ERCPwith sphincterotomy and balloon sweeping of the bile duct for stones and puswith stent placement on 12/10/22 CT abd/P on 12/17/22 noted severe pancreatitis similar to prior study, small amount of perihepatic fluid/small amount of pneumoperitoneum, subhepatic catheter unchanged in position, CBD stent with associated pneumobilia, small b/l pleural effusion, unchanged airspace opacities in the lungs. LFT normalized Tolerated diet Clinically improved significantly 01/01 -yesterday developed abdominal pain radiating to her back. CT abdomen pelvis obtained and surgery contacted. General surgery on-call reviewed images and messaged me that there are no acute findings, and therefore will defer to Dr. Whittaker to follow-up today. 12/31 CT abd/pelvis IMPRESSION: 1. Peripancreatic stranding is somewhat decreased from prior exam. There is interval increased organization of peripancreatic fluid collections compatible with acute peripancreatic collection. 2. Likely significant remnant gallbladder noted in this patient status post cholecystectomy. 3. Percutaneous drainage catheter is again seen, a small amount of fluid in subcutaneous gas is noted along the soft tissue tract. 4. Bilateral nephrolithiasis without evidence of obstruction. Septic shock she was in the ICU on IV pressor Persistent leukocytosis WBC peaked 30.7, then normalized to 10-11K Blood culture, urine culture, fungal culture are negative Completed IV Zosyn course DC caspofungin on 12/26 since patient completed 7 days course Blood and urine culture were negative MIMI drain fluid culture negative so far Acute cholangitis Transaminitis LFTs normalized. Hgb is 9.9 today Gen surg consulted and following S/p Lap chol and ERCPwith sphincterotomy and balloon sweeping of the bile duct for stones and puswith stent placement LFT continue trending down with AST 31, ALT 119 and Alk 104 WBC continue trending down , now normalized Gastro and surgery on board Completed the course of Zosyn Will need repeat ERCP in 2 month for stent removal Plan to leave the drain until likely after her stent removal although may remove sooner but will likely stay for at least 4 to 6 weeks Acute respiratory failure with hypoxia Likely from dependent atelectasis Continue to encourage incentive spirometry and flutter O2 supplementation to keep oxygen saturation between 88-92% Wean off oxygen as tolerated Saturated well on RA Paroxysmal Afib Episodes of Afib (w/ RVR) during her hosp. stay ECHO showed normal LV wall function. EF 65 to 70 % Cardiology consulted Initially No anticoagulant considering comorbidities: severe pancreatitis/risk of hemorrhagic pancreatitis, recent surgery Continue metoprolol and amiodarone PO , metoprolol dose increased Cardiology following Monitor and replace electrolytes 12/28 -discussed with LOAN ANALYST, and surgery, regarding anticoagulation. Both providers agree that we can start anticoagulation for paroxysmal A-fib. Discussed with pharmacy regarding patient's renal function, recommend 5 mg twice daily. Started on Eliquis, no incr. bleed noted, H&H stable - 12/19- 01/01 SAMMY Worsening renal function. Creatinine increased up to 8.38, BUN 110 on 12/18/22 Patient transferred to ICU on 12/18/22 and started on HD same day Nephrology following closely Avoid nephrotoxic agents Monitor renal function, BMP ? Vaginal bleeding possible related to urethral trauma from the catheter. No blood seen in the urine from the catalan cath Hgb 9.9 today (been stable) held subq heparin BOAT CARPENTER consulted (see consult) - and discussed in person - ok to start anticoagulation-> started Eliquis clinically stable Generalized weakness Continue PT/OT eval Fall precaution Pt would like to keep the catalan cath for now and once she gets stronger to remove it Will need rehab placement Prediabetes Recent Hba1c 6.1 on 12/10/22 Continue monitor BS Hypertension BP been at goal Will consider to start on BP med if continues to be elevated Continue monitor BP Hyperthyroidism Continue Methimazole Anxiety Continue Sertraline Code status full code DVT px SCD , Eliquis Continue PT/OT Admission and Anticipated Discharge Date Admission Date: December 09, 2022 Subjective Pt was seen in follow up of complicated hosp. stay, s/p ercp, s/p cholecystectomy, now on HD Discussed anticoag. w/ garage laborer and surgery and started pt on Eliquis. Today patient is sitting up in bed in no acute distress. Yesterday afternoon, developed abdominal pain radiating to her back. CT scan was obtained and surgery contacted. Patient is currently not ambulating, difficult to even sit up at the edge of the bed. Pt denies any fever chills, chest pain, palpitation, shortness of breath. Denies abdominal pain. Currently no family present at bedside. Review of Systems Review of Systems: All systems reviewed & are unremarkable except as noted in Subjective Physical Exam Physical Exam: General- WD/WN F, frail, in NAD Head- atraumatic Eyes- PERRL, EOMI, ENT- oropharynx clear Neck- supple, no JVD Lungs- CTAB anteriorly Heart- regular, no murmur Abdomen- normal bowel sounds, soft, nontender to palp., + drain visualized Extremities- +edema, moves extremities Neuro- alert, oriented x 3; PERRL, EOMI; no facial palsy; no dysarthria, moves extremities Skin- warm & dry Results & Data Results & Data Vital Signs (Past 12 Hours) Vital Signs Temp Pulse Pulse Resp BP BP Pulse Ox 01/01/23 04:00 36.4 C L 83 20 128/58 L 92 01/01/23 00:00 36.7 C 84 20 102/60 92 12/31/22 23:54 87 O2 Del Method 01/01/23 04:00 Room Air 01/01/23 00:00 Room Air 12/31/22 23:54 Laboratory Results 01/01/23 01/01/23 Range/Units 05:52 05:52 WBC 11.76 H (4.8-10.8) K/ul RBC 3.42 L (4.20-5.40) M/uL Hgb 9.9 L (12.0-16.0) g/dl Hct 30.1 L (37.0-47.0) % MCV 88.0 (80.0-100.0) fL MCH 28.9 (25.0-34.0) pg MCHC 32.9 (32.0-36.0) g/dL RDW Std Deviation 46.7 H (36.4-46.3) fL RDW Coeff of Mandy 14.6 H (11.5-14.5) % Plt Count 215 (130-400) K/uL MPV 10.4 (9.4-12.4) fL Immature Gran % (Auto) 0.4 % Neut % (Auto) 46.1 % Lymph % (Auto) 30.3 % [place] % (Auto) 15.5 % Eos % (Auto) 6.7 % Baso % (Auto) 1.0 % Neut # (Auto) 5.42 (1.40-6.50) K/uL Lymph # (Auto) 3.56 H (1.2-3.4) K/uL [place] # (Auto) 1.82 H (0.11-0.59) K/uL Eos # (Auto) 0.79 H (0-0.50) K/uL Baso # (Auto) 0.12 (0-0.2) K/uL Immature Gran # (Auto) 0.05 (0.01-0.20) K/uL Sodium 137 (136-145) mmol/L Potassium 4.1 (3.5-5.1) mmol/L Chloride 102 (98-107) mmol/L Carbon Dioxide 24 (21-32) mmol/L Anion Gap 11 (3-11) BUN 60 H (6-23) mg/dl Creatinine 4.01 H (0.6-1.2) mg/dl Est Cr Clr Drug Dosing 13.4 ml/min Est GFR ( Amer) 12.1 ml/min Est GFR (Non-Af Amer) 10.4 ml/min BUN/Creatinine Ratio 15.0 (10-20) Glucose 118 H (70-99(Fasting)) mg/dl Calcium 7.8 L (8.6-10.3) mg/dl Phosphorus 4.1 (2.5-4.9) mg/dl Magnesium 2.0 (1.7-2.4) mg/dl Medications Administered Current Inpatient Medications Acetaminophen (Acetaminophen 325 Mg Tab) 650 mg PO Q6H PRN PRN Reason: Fever/pain Stop: 01/25/23 22:36 Last Admin: 12/26/22 23:30 Dose: 650 mg Amiodarone HCl (Amiodarone 200 Mg Tab) 200 mg PO BID [facility] Stop: 01/20/23 20:59 Last Admin: 12/31/22 20:54 Dose: 200 mg Apixaban (Apixaban 5 Mg Tablet) 5 mg PO BID [facility] Stop: 01/27/23 15:59 Last Admin: 12/31/22 20:54 Dose: 5 mg Calcium Carbonate (Calcium Carbonate 1,250 Mg/5 Ml Udc) 1,250 mg PO BID [facility] Stop: 01/13/23 17:34 Last Admin: 12/31/22 20:52 Dose: 1,250 mg Cetirizine HCl (Cetirizine Hcl 10 Mg Tablet) 5 mg PO Q48H [facility] Stop: 01/18/23 20:59 Last Admin: 12/31/22 20:54 Dose: 5 mg Dextrose (Dextrose 50% 50 Ml Syringe) 25 - 50 ml IV UD PRN; Protocol PRN Reason: Hypoglycemia Protocol Stop: 01/08/23 21:20 Fluticasone Propionate (Fluticasone Propionate Na Spr 16 Gm Btl) 1 sprays EDUARDO QAM [facility] Stop: 01/18/23 11:29 Last Admin: 12/31/22 08:06 Dose: Not Given Glucagon (Glucagon For Inj 1 Mg Vial) 1 mg SQ UD PRN; Protocol PRN Reason: Hypoglycemia Protocol Stop: 01/08/23 21:20 Glucose (Glucose 10 Tab/Tube) 4 - 8 tab PO UD PRN; Protocol PRN Reason: Hypoglycemia Treatment Stop: 01/08/23 21:20 Glucose (Glucose 40% Gel 15 Gm Tube) 15 - 30 gm PO UD PRN; Protocol PRN Reason: Hypoglycemia Protocol Stop: 01/08/23 21:20 Hydralazine HCl (Hydralazine Hcl 20 Mg/Ml Vial) 10 mg IV Q6H PRN PRN Reason: SBP>160 Stop: 01/19/23 17:14 Last Admin: 12/21/22 19:57 Dose: 10 mg Magnesium Oxide (Magnesium Oxide 400 Mg Tab) 400 mg PO BID [facility] Stop: 01/27/23 08:59 Last Admin: 12/31/22 20:54 Dose: 400 mg Melatonin (Melatonin 3 Mg Tab) 3 mg PO HS PRN PRN Reason: Sleep Stop: 01/22/23 20:00 Last Admin: 12/26/22 23:32 Dose: 3 mg Methimazole (Methimazole 5 Mg Tablet) 5 mg PO DAILY [facility] Stop: 01/09/23 08:59 Last Admin: 12/31/22 08:06 Dose: 5 mg Metoprolol Succinate (Metoprolol Succ 50mg Ext Rel Tab) 50 mg PO BID [facility] Stop: 01/26/23 20:59 Last Admin: 12/31/22 20:55 Dose: 50 mg Metoprolol Tartrate (Metoprolol Tartrate 1 Mg/Ml Vial) 2.5 mg IV Q6H PRN PRN Reason: HR above 120 Stop: 01/10/23 19:14 Last Admin: 12/29/22 15:55 Dose: 2.5 mg Miscellaneous (Carbohydrates For Hypoglycemia ) 15 - 30 gm PO UD PRN PRN Reason: Hypoglycemia Protocol Stop: 01/08/23 21:20 Ondansetron HCl (Ondansetron Inj 2 Mg/Ml 2 Ml Vial) 4 mg IV Q6H PRN PRN Reason: Nausea And Vomiting Stop: 01/08/23 21:20 Last Admin: 12/18/22 01:58 Dose: 4 mg Polyethylene Glycol (Polyethylene (Miralax) 17 Gm Pack) 17 gm PO DAILY PRN PRN Reason: Constipation Stop: 01/27/23 05:50 Senna/Docusate Sodium (Docusate Sodium/Senna 50/8.6mg Tab) 1 tab PO BID [facility] Stop: 01/09/23 20:59 Last Admin: 12/31/22 20:58 Dose: 1 tab Sertraline HCl (Sertraline Hcl 50 Mg Tablet) 50 mg PO DAILY [facility] Stop: 01/09/23 08:59 Last Admin: 12/31/22 08:06 Dose: 50 mg (1) Acute pancreatitis Acute pancreatitis complication: unspecified Pancreatitis type: unspecified pancreatitis type Qualified Code(s): K85.90 - Acute pancreatitis without n ecrosis or infection, unspecified (2) Nausea and vomiting Vomiting type: unspecified Qualified Code(s): R11.2 - Nausea with vomiting, unspecified
[2023-01-01] MEDS: MAGNESIUM OXIDE 400 MG TAB PO SCH ×2 (08:45→21:34)
[2023-01-01] MEDS: SERTRALINE HCL 50 MG TABLET PO SCH (08:45)
[2023-01-01] MEDS: CALCIUM CARBONATE 1,250 MG/5 ML UDC PO SCH ×2 (08:45→21:34)
[2023-01-01] MEDS: APIXABAN 5 MG TABLET PO SCH ×2 (08:45→21:34)
[2023-01-01] MEDS: AMIODARONE 200 MG TAB PO SCH ×2 (08:45→21:34)
[2023-01-01] MEDS: methIMAzole 5 MG TABLET PO SCH (08:45)
[2023-01-01] MEDS: FLUTICASONE PROPIONATE NA SPR 16 GM BTL NAE SCH (08:45)
[2023-01-01] MEDS: METOPROLOL SUCC 50MG EXT REL TAB PO SCH ×2 (08:45→21:34)
[2023-01-01] MEDS: DOCUSATE SODIUM/SENNA 50/8.6MG TAB PO SCH ×2 (08:52→21:35)
[2023-01-01] MEDS ORDERED: HEPARIN SOD (PORCINE) 1000 UNIT/ML IV ONE (08:52)
[2023-01-01] MEDS ORDERED: SODIUM CHLORIDE 0.9% 1000ML 1,000 ML IV PRN (08:52)
[2023-01-01] MEDS ORDERED: EPOETIN ALFA 10,000 UNITS/ML VIAL IV ONE (09:15)
[2023-01-01] MEDS: HEPARIN SOD (PORCINE) 1000 UNIT/ML IV SCH (10:59)
--- NOTE | 2023-01-01 15:31 | Surgery Progress Note ---
Date of Service January 01, 2023 Assessment & Plan (1) Pancreatitis: Plan: Patient found on CT scan to have what appeared to be pseudocyst of the pancreas Normally these may resolve within 6 weeks-but if they do not intend to get larger she may need IR drainage depending on her symptoms We will repeat her CT scan in 3 to 4 weeks The gallbladder bed is as expected ,there may be a very small remnant of gallbladder near the common duct The other area is from fluid and gas from the stent which is not unexpected No change in surgical treatment Admission and Anticipated Discharge Date Admission Date: December 09, 2022 Results & Data Vital Signs (Past 12 Hours) Vital Signs Temp Pulse Pulse Pulse Resp BP BP 01/01/23 10:37 36.7 C 63 106/47 L 01/01/23 10:30 87 146/68 H 01/01/23 10:00 87 125/55 L 01/01/23 11:37 36.6 C 123 H 19 01/01/23 09:40 36.7 C 85 01/01/23 08:14 36.8 C 80 19 01/01/23 06:02 100 H 01/01/23 04:00 36.4 C L 83 20 BP Pulse Ox O2 Del Method 01/01/23 10:37 01/01/23 10:30 01/01/23 10:00 01/01/23 11:37 100/59 L 95 Room Air 01/01/23 09:40 01/01/23 08:14 113/68 93 Room Air 01/01/23 06:02 01/01/23 04:00 128/58 L 92 Room Air PG Care Time/CCT Total # of Minutes Spent Total Time Spent with Patient: Total time spent is greater than 50% in coordination of care (as documented) at patient's floor/unit and/or counseling patient: Coding Level of Care Code None Diagnoses Pancreatitis K85.90
--- NOTE | 2023-01-01 20:15 | Dialysis Progress Note ---
Date of Service January 01, 2023 Assessment & Plan (1) SAMMY (acute kidney injury): Plan: baseline creatinine 0.8; dialysis dependent oligoanuric stage 3 SAMMY ischemic ATN multifactorial and recurrent initially including IV contrast, poor po intake prior to admission (presenting s.g. on UA > 1045), continued losartan in setting of above (last dose 12/11), sepsis from pancreatitis/cholecystitis, then compounded by poor renal perfusion w/ pAF and hypotension for several days though this instability resolved by December 13 for the most part. ATN did not resolve/worsened w/ ongoing sepsis; first HD 12/18; TDC on 12/22 continue strict I/O and daily bmp to monitor for renal recovery > increase in UOP is promising No need for renal diet for now Her dialysis catheter runs quite poorly >> shortly after seeing her I stopped the treatment after less than 30 minutes d/t frequent alarms; she had no UF removed; we could not get bloodflow sufficient for an adequate treatment despite alteplace (which she has been having q treatemtn) >she has needed alteplace every tx pretty much >lab trends show even when TDC runs well w/ adequate bloodflow (such as 12/29) she has poor clearance >> ? recirculation UOP increasing and broke 1L yesterday for the first time Creatinine still quite elevated but not uptrending super rapidly For now will observe without further dialysis; reluctant to replace catheter in someone who may not need catheter much longer; may however need replacement by end of week if uremia emerges Care d/w Dr Vasquez Admission and Anticipated Discharge Date Admission Date: December 09, 2022 Subjective seen on dialysis at [id number]; c/o dyspnea, anxeity; tells me she feels "terrible" but later states it's d/t worries about whether TDC works; no uncontrolled pain; unable to sit at side of bed w/o asst per report Review of Systems Review of Systems: All systems reviewed & are unremarkable except as noted in Subjective Physical Exam Constitutional: well developed, well nourished, + acute distress (mild distress that catheter alarms so often), + frail appearing and cooperative Eyes: EOM intact bilaterally ENMT: Ears: no external ear abnormality Nose: no external nose abnormality Mouth: + dry oral mucous membranes Neck: no nuchal rigidity Respiratory: normal respiratory effort; no respiratory distress and no cough Auscultation: + diminished lung sounds (markedly) Cardiovascular: Rate/Rhythm: regular rate and regular rhythm Extremities: + edema (1-2+ distally) Gastrointestinal (Abdomen): Inspection/Auscultation: normal bowel sounds (RUQ drain still present); + abdomen abnormal to inspection (Right upper quadrant drain) Percussion/Palpation: abdomen soft; abdomen nontender Musculoskeletal: Extremities: + abnormal strength (cannot situp w/o asst; BLE weak) Skin: no rashes, warm and dry Psychiatric: Orientation: alert, oriented x 3, oriented to person and cooperative Results & Data Vital Signs (Past 12 Hours) Vital Signs Temp Pulse Pulse Pulse Resp BP BP 01/01/23 14:39 98 H 01/01/23 16:04 36.4 C L 74 19 01/01/23 10:37 36.7 C 63 106/47 L 01/01/23 10:30 87 146/68 H 01/01/23 10:00 87 125/55 L 01/01/23 11:37 36.6 C 123 H 19 01/01/23 09:40 36.7 C 85 01/01/23 08:14 36.8 C 80 19 BP Pulse Ox O2 Del Method 01/01/23 14:39 01/01/23 16:04 121/65 92 Room Air 01/01/23 10:37 01/01/23 10:30 01/01/23 10:00 01/01/23 11:37 100/59 L 95 Room Air 01/01/23 09:40 01/01/23 08:14 113/68 93 Room Air Laboratory Results 01/01/23 05:52 01/01/23 05:52
[2023-01-02 06:22] LABS: Hemoglobin 9.1 g/dl (12.0-16.0); Mean Corpuscular Hemoglobin 28.5 pg (25.0-34.0); Mean Corpuscular Hgb Conc 32.5 g/dL (32.0-36.0); Mean Corpuscular Volume 87.8 fL (80.0-100.0); Mean Platelet Volume 10.2 fL (9.4-12.4); Platelet Count 269 K/uL (130-400); RDW Coefficient of Variation 14.3 % (11.5-14.5); RDW Standard Deviation 46.2 fL (36.4-46.3); Red Blood Count 3.19 M/uL (4.20-5.40); White Blood Count 11.93 K/ul (4.8-10.8)
[2023-01-02 06:41] LABS: BUN Creatinine Ratio 15.6 (10-20); Calcium 7.7 mg/dl (8.6-10.3); Creatinine Clr Calc Pharmacy 14.2 ml/min; Est GFR (African American) 12.4 ml/min; Est GFR (Non-African American) 10.7 ml/min; Magnesium 2.1 mg/dl (1.7-2.4); Phosphorus 3.8 mg/dl (2.5-4.9); Potassium 3.8 mmol/L (3.5-5.1)
[2023-01-02] MEDS: FLUTICASONE PROPIONATE NA SPR 16 GM BTL NAE SCH (08:14)
[2023-01-02] MEDS: AMIODARONE 200 MG TAB PO SCH ×2 (08:14→21:39)
[2023-01-02] MEDS: DOCUSATE SODIUM/SENNA 50/8.6MG TAB PO SCH ×2 (08:14→21:42)
[2023-01-02] MEDS: METOPROLOL SUCC 50MG EXT REL TAB PO SCH ×2 (08:14→21:41)
[2023-01-02] MEDS: SERTRALINE HCL 50 MG TABLET PO SCH (08:14)
[2023-01-02] MEDS: CALCIUM CARBONATE 1,250 MG/5 ML UDC PO SCH ×2 (08:14→21:40)
[2023-01-02] MEDS: MAGNESIUM OXIDE 400 MG TAB PO SCH ×2 (08:14→21:41)
[2023-01-02] MEDS: APIXABAN 5 MG TABLET PO SCH ×2 (08:14→21:40)
[2023-01-02] MEDS: methIMAzole 5 MG TABLET PO SCH (08:14)
--- NOTE | 2023-01-02 08:58 | Hospitalist Progress Note ---
Date of Service January 02, 2023 Assessment & Plan (1) Acute pancreatitis: (2) Nausea and vomiting: Plan: Possible related togallstone related pancreatitis Present on admission with abdominal pain that radiating to back associating with vomiting and nausea CT abd/pel showedperipancreatic fat stranding is seen concerning for pancreatitis. Prominence of the gallbladder may be reactive or less likely may represent acute cholecystitis. Abdomen u/s showedgallbladder is distended and full of stones/sludge as detailed above. Findings are suspicious for acute cholecystitis. Lipase above 4000's on admission, Lipase 2960--> then 678-->63 Elevated LFT with AST 313 and ALT 536 S/p Lap chol and ERCPwith sphincterotomy and balloon sweeping of the bile duct for stones and puswith stent placement on 12/10/22 CT abd/P on 12/17/22 noted severe pancreatitis similar to prior study, small amount of perihepatic fluid/small amount of pneumoperitoneum, subhepatic catheter unchanged in position, CBD stent with associated pneumobilia, small b/l pleural effusion, unchanged airspace opacities in the lungs. LFT normalized Tolerated diet Clinically improved significantly / -yesterday developed abdominal pain radiating to her back. CT abdomen pelvis obtained and surgery contacted. / CT abd/pelvis IMPRESSION: 1. Peripancreatic stranding is somewhat decreased from prior exam. There is interval increased organization of peripancreatic fluid collections compatible with acute peripancreatic collection. 2. Likely significant remnant gallbladder noted in this patient status post cholecystectomy. 3. Percutaneous drainage catheter is again seen, a small amount of fluid in subcutaneous gas is noted along the soft tissue tract. 4. Bilateral nephrolithiasis without evidence of obstruction. 4/3 Per surgery, Dr. Whittaker - Patient found on CT scan to have what appeared to be pseudocyst of the pancreas Normally these may resolve within 6 weeks-but if they do not intend to get larger she may need IR drainage depending on her symptoms We will repeat her CT scan in 3 to 4 weeks The gallbladder bed is as expected ,there may be a very small remnant of gallbladder near the common duct The other area is from fluid and gas from the stent which is not unexpected No change in surgical treatment Septic shock she was in the ICU on IV pressor Persistent leukocytosis WBC peaked 30.7, then normalized to 10-11K Blood culture, urine culture, fungal culture are negative Completed IV Zosyn course DC caspofungin on 12/26 since patient completed 7 days course Blood and urine culture were negative MIMI drain fluid culture negative so far Acute cholangitis Transaminitis LFTs normalized. Hgb is 9.9 today Gen surg consulted and following S/p Lap chol and ERCPwith sphincterotomy and balloon sweeping of the bile duct for stones and puswith stent placement LFT continue trending down with AST 31, ALT 119 and Alk 104 WBC continue trending down , now normalized Gastro and surgery on board Completed the course of Zosyn Will need repeat ERCP in 2 month for stent removal Plan to leave the drain until likely after her stent removal although may remove sooner but will likely stay for at least 4 to 6 weeks Acute respiratory failure with hypoxia Likely from dependent atelectasis Continue to encourage incentive spirometry and flutter O2 supplementation to keep oxygen saturation between 88-92% Wean off oxygen as tolerated Saturated well on RA Paroxysmal Afib Episodes of Afib (w/ RVR) during her hosp. stay ECHO showed normal LV wall function. EF 65 to 70 % Cardiology consulted Initially No anticoagulant considering comorbidities: severe pancreatitis/risk of hemorrhagic pancreatitis, recent surgery Continue metoprolol and amiodarone PO , metoprolol dose increased Cardiology following Monitor and replace electrolytes 12/28 -discussed with [employer], and surgery, regarding anticoagulation. Both providers agree that we can start anticoagulation for paroxysmal A-fib. Discussed with pharmacy regarding patient's renal function, recommend 5 mg twice daily. Started on Eliquis, no incr. bleed noted, H&H stable - 12/19- 01/02 SAMMY Worsening renal function. Creatinine increased up to 8.38, BUN 110 on 12/18/22 Patient transferred to ICU on 12/18/22 and started on HD same day Nephrology following closely Avoid nephrotoxic agents Monitor renal function, BMP Urine outpu improved in the past 48 hrs. catheter for dialysis still with issues. Discussed with nephrology, continue to closely monitor. ? Vaginal bleeding possible related to urethral trauma from the catheter. No blood seen in the urine from the catalan cath Hgb 9.9 today (been stable) held subq heparin BREAD DUMPER consulted (see consult) - and discussed in person - ok to start anticoagulation-> started Eliquis clinically stable Generalized weakness Continue PT/OT eval Fall precaution Pt would like to keep the catalan cath for now and once she gets stronger to remove it Will need rehab placement Prediabetes Recent Hba1c 6.1 on 12/10/22 Continue monitor BS Hypertension BP been at goal Will consider to start on BP med if continues to be elevated Continue monitor BP Hyperthyroidism Continue Methimazole Anxiety Continue Sertraline Code status full code DVT px SCD , Eliquis Continue PT/OT Admission and Anticipated Discharge Date Admission Date: December 09, 2022 Subjective Pt was seen in follow up of complicated hosp. stay, s/p ercp, s/p cholecystectomy, now on HD Discussed anticoag. w/ marketing professor and surgery and started pt on Eliquis. Today patient is sitting up in bed in no acute distress. Niece present at the bedside, daughter on the phone updated. Patient is currently not ambulating, difficult to even sit up at the edge of the bed. Pt denies any fever chills, chest pain, palpitation, shortness of breath. Denies abdominal pain. Urine output improved in past 48 hrs. Catheter for dialysis - still w/ issues. Discussed with nephrology, plan to continue to monitor closely. Review of Systems Review of Systems: All systems reviewed & are unremarkable except as noted in Subjective Physical Exam Physical Exam: General- WD/WN F, frail, in NAD Head- atraumatic Eyes- PERRL, EOMI, ENT- oropharynx clear Neck- supple, no JVD Lungs- CTAB anteriorly Heart- regular, no murmur Abdomen- normal bowel sounds, soft, nontender to palp., + drain visualized Extremities- +edema, moves extremities Neuro- alert, oriented x 3; PERRL, EOMI; no facial palsy; no dysarthria, moves extremities Skin- warm & dry Results & Data Results & Data Vital Signs (Past 12 Hours) Vital Signs Temp Pulse Pulse Pulse Resp BP BP 01/02/23 08:06 36.7 C 59 L 20 121/56 L 01/02/23 00:00 89 01/02/23 04:06 36.4 C L 81 16 114/61 01/01/23 21:30 01/01/23 23:00 36.6 C 65 17 113/54 L Pulse Ox O2 Del Method 01/02/23 08:06 92 Room Air 01/02/23 00:00 01/02/23 04:06 93 Room Air 01/01/23 21:30 Room Air 01/01/23 23:00 91 Room Air Laboratory Results 01/02/23 01/02/23 Range/Units 06:00 06:00 WBC 11.93 H (4.8-10.8) K/ul RBC 3.19 L (4.20-5.40) M/uL Hgb 9.1 L (12.0-16.0) g/dl Hct 28.0 L (37.0-47.0) % MCV 87.8 (80.0-100.0) fL MCH 28.5 (25.0-34.0) pg MCHC 32.5 (32.0-36.0) g/dL RDW Std Deviation 46.2 (36.4-46.3) fL RDW Coeff of Mandy 14.3 (11.5-14.5) % Plt Count 269 (130-400) K/uL MPV 10.2 (9.4-12.4) fL Sodium 137 (136-145) mmol/L Potassium 3.8 (3.5-5.1) mmol/L Chloride 103 (98-107) mmol/L Carbon Dioxide 24 (21-32) mmol/L Anion Gap 10 (3-11) BUN 61 H (6-23) mg/dl Creatinine 3.91 H (0.6-1.2) mg/dl Est Cr Clr Drug Dosing 14.2 ml/min Est GFR ( Amer) 12.4 ml/min Est GFR (Non-Af Amer) 10.7 ml/min BUN/Creatinine Ratio 15.6 (10-20) Glucose 111 H (70-99(Fasting)) mg/dl Calcium 7.7 L (8.6-10.3) mg/dl Phosphorus 3.8 (2.5-4.9) mg/dl Magnesium 2.1 (1.7-2.4) mg/dl Medications Administered Current Inpatient Medications Acetaminophen (Acetaminophen 325 Mg Tab) 650 mg PO Q6H PRN PRN Reason: Fever/pain Stop: 01/25/23 22:36 Last Admin: 12/26/22 23:30 Dose: 650 mg Amiodarone HCl (Amiodarone 200 Mg Tab) 200 mg PO BID VANDNAA Stop: 01/20/23 20:59 Last Admin: 01/02/23 08:14 Dose: 200 mg Apixaban (Apixaban 5 Mg Tablet) 5 mg PO BID [facility] Stop: 01/27/23 15:59 Last Admin: 01/02/23 08:14 Dose: 5 mg Calcium Carbonate (Calcium Carbonate 1,250 Mg/5 Ml Udc) 1,250 mg PO BID [facility] Stop: 01/13/23 17:34 Last Admin: 01/02/23 08:14 Dose: 1,250 mg Cetirizine HCl (Cetirizine Hcl 10 Mg Tablet) 5 mg PO Q48H VANDANA Stop: 01/18/23 20:59 Last Admin: 12/31/22 20:54 Dose: 5 mg Dextrose (Dextrose 50% 50 Ml Syringe) 25 - 50 ml IV UD PRN; Protocol PRN Reason: Hypoglycemia Protocol Stop: 01/08/23 21:20 Fluticasone Propionate (Fluticasone Propionate Na Spr 16 Gm Btl) 1 sprays EDUARDO QAM [facility] Stop: 01/18/23 11:29 Last Admin: 01/02/23 08:14 Dose: Not Given Glucagon (Glucagon For Inj 1 Mg Vial) 1 mg SQ UD PRN; Protocol PRN Reason: Hypoglycemia Protocol Stop: 01/08/23 21:20 Glucose (Glucose 10 Tab/Tube) 4 - 8 tab PO UD PRN; Protocol PRN Reason: Hypoglycemia Treatment Stop: 01/08/23 21:20 Glucose (Glucose 40% Gel 15 Gm Tube) 15 - 30 gm PO UD PRN; Protocol PRN Reason: Hypoglycemia Protocol Stop: 01/08/23 21:20 Hydralazine HCl (Hydralazine Hcl 20 Mg/Ml Vial) 10 mg IV Q6H PRN PRN Reason: SBP>160 Stop: 01/19/23 17:14 Last Admin: 12/21/22 19:57 Dose: 10 mg Magnesium Oxide (Magnesium Oxide 400 Mg Tab) 400 mg PO BID VANDANA Stop: 01/27/23 08:59 Last Admin: 01/02/23 08:14 Dose: 400 mg Melatonin (Melatonin 3 Mg Tab) 3 mg PO HS PRN PRN Reason: Sleep Stop: 01/22/23 20:00 Last Admin: 12/26/22 23:32 Dose: 3 mg Methimazole (Methimazole 5 Mg Tablet) 5 mg PO DAILY VANDANA Stop: 01/09/23 08:59 Last Admin: 01/02/23 08:14 Dose: 5 mg Metoprolol Succinate (Metoprolol Succ 50mg Ext Rel Tab) 50 mg PO BID [facility] Stop: 01/26/23 20:59 Last Admin: 01/02/23 08:14 Dose: 50 mg Metoprolol Tartrate (Metoprolol Tartrate 1 Mg/Ml Vial) 2.5 mg IV Q6H PRN PRN Reason: HR above 120 Stop: 01/10/23 19:14 Last Admin: 12/29/22 15:55 Dose: 2.5 mg Miscellaneous (Carbohydrates For Hypoglycemia ) 15 - 30 gm PO UD PRN PRN Reason: Hypoglycemia Protocol Stop: 01/08/23 21:20 Ondansetron HCl (Ondansetron Inj 2 Mg/Ml 2 Ml Vial) 4 mg IV Q6H PRN PRN Reason: Nausea And Vomiting Stop: 01/08/23 21:20 Last Admin: 12/18/22 01:58 Dose: 4 mg Polyethylene Glycol (Polyethylene (Miralax) 17 Gm Pack) 17 gm PO DAILY PRN PRN Reason: Constipation Stop: 01/27/23 05:50 Senna/Docusate Sodium (Docusate Sodium/Senna 50/8.6mg Tab) 1 tab PO BID [facility] Stop: 01/09/23 20:59 Last Admin: 01/02/23 08:14 Dose: 1 tab Sertraline HCl (Sertraline Hcl 50 Mg Tablet) 50 mg PO DAILY [facility] Stop: 01/09/23 08:59 Last Admin: 01/02/23 08:14 Dose: 50 mg (1) Acute pancreatitis Acute pancreatitis complication: unspecified Pancreatitis type: unspecified pancreatitis type Qualified Code(s): K85.90 - Acute pancreatitis without necrosis or infection, unspecified (2) Nausea and vomiting Vomiting type: unspecified Qualified Code(s): R11.2 - Nausea with vomiting, unspecified
--- NOTE | 2023-01-02 11:30 | Nephrology Progress Note ---
Date of Service January 02, 2023 Assessment & Plan (1) SAMMY (acute kidney injury): Plan: baseline creatinine 0.8; dialysis dependent oligoanuric stage 3 SAMMY ischemic ATN multifactorial and recurrent initially including IV contrast, poor po intake prior to admission (presenting s.g. on UA > 1045), continued losartan in setting of above (last dose 12/11), sepsis from pancreatitis/cholecystitis, then compounded by poor renal perfusion w/ pAF and hypotension for several days though this instability resolved by December 13 for the most part. ATN did not resolve/worsened w/ ongoing sepsis; first HD 12/18; TDC on 12/22 continue strict I/O and daily bmp to monitor for renal recovery > increase in UOP is promising No need for renal diet for now Her dialysis catheter basically does not function even with application of alteplase prior to most every treatment since catheter insertion>> her last full dialysis treatment was December 29 ; January 01 treatment aborted due to catheter malfunction >lab trends show even when TDC runs well w/ adequate bloodflow (such as 12/29) she has poor clearance >> ? recirculation UOP 900 to 1000 mL daily past 48 hours Creatinine still quite elevated but not uptrending super rapidly; chemistries acceptable volume status not optimal but for now acceptable For now will observe without further dialysis; reluctant to replace catheter in someone who may not need catheter much longer; may however need replacement by end of week if uremia emerges -daily BMP -Continue Tomlinson and strict intake and output Did verify she has regimen for constipation and had a moderate loose bowel movement yesterday; continue same Admission and Anticipated Discharge Date Admission Date: December 09, 2022 Subjective Seen on morning rounds. Continues to state "I feel awful" by which she chiefly means constipation denies shortness of breath. Denies worsening edema. Denies uncontrolled abdominal pain. Endorses poor appetite. Her partner is at bedside with many questions. Review of Systems Review of Systems: All systems reviewed & are unremarkable except as noted in Subjective Physical Exam Constitutional: well developed, well nourished, + frail appearing and cooperative; no acute distress Eyes: EOM intact bilaterally ENMT: Ears: no external ear abnormality Nose: no external nose abnormality Mouth: + dry oral mucous membranes Neck: no nuchal rigidity Respiratory: normal respiratory effort; no respiratory distress and no cough Auscultation: + diminished lung sounds (markedly) and + crackles (bibasilar) Cardiovascular: Rate/Rhythm: regular rate and regular rhythm Extremities: + edema (Trace bilaterally) Gastrointestinal (Abdomen): Inspection/Auscultation: normal bowel sounds (RUQ drain still present); + abdomen abnormal to inspection (Right upper quadrant drain) Percussion/Palpation: abdomen soft; abdomen nontender Musculoskeletal: Extremities: + abnormal strength (cannot situp w/o asst; BLE weak) Skin: no rashes, warm and dry Psychiatric: Orientation: alert, oriented x 3, oriented to person and cooperative Results & Data Vital Signs (Past 12 Hours) Vital Signs Temp Pulse Pulse Pulse Resp BP BP 01/02/23 07:45 85 01/02/23 07:45 01/02/23 08:06 36.7 C 59 L 20 121/56 L 01/02/23 00:00 89 01/02/23 04:06 36.4 C L 81 16 114/61 Pulse Ox O2 Del Method 01/02/23 07:45 01/02/23 07:45 Nasal Cannula 01/02/23 08:06 92 Room Air 01/02/23 00:00 01/02/23 04:06 93 Room Air Laboratory Results 01/02/23 06:00 01/02/23 06:00
[2023-01-02] MEDS: CETIRIZINE HCL 10 MG TABLET PO SCH (21:40)
[2023-01-03 06:49] LABS: BUN Creatinine Ratio 16.5 (10-20); Creatinine Clr Calc Pharmacy 14.8 ml/min; Est GFR (African American) 13.1 ml/min; Est GFR (Non-African American) 11.3 ml/min; Potassium 3.5 mmol/L (3.5-5.1)
--- NOTE | 2023-01-03 08:16 | Nephrology Progress Note ---
Date of Service January 03, 2023 Assessment & Plan (1) SAMMY (acute kidney injury): Plan: baseline creatinine 0.8; dialysis dependent oligoanuric stage 3 SAMMY ischemic ATN multifactorial and recurrent initially including IV contrast, poor po intake prior to admission (presenting s.g. on UA > 1045), continued losartan in setting of above (last dose 12/11), sepsis from pancreatitis/cholecystitis, then compounded by poor renal perfusion w/ pAF and hypotension for several days though this instability resolved by December 13 for the most part. ATN did not resolve/worsened w/ ongoing sepsis; first HD 12/18; TDC on 12/22 continue strict I/O and daily bmp to monitor for renal recovery > increase in UOP is promising No need for renal diet for now Her dialysis catheter basically does not function even with application of alteplase prior to most every treatment since catheter insertion>> her last full dialysis treatment was December 29 ; January 01 treatment aborted due to catheter malfunction >lab trends show even when TDC runs well w/ adequate bloodflow (such as 12/29) she has poor clearance >> ? recirculation UOP 900 to 1000 >1500 mL daily past 72 hours Creatinine still quite elevated and for first time today downtrending; chemistries acceptable volume status not optimal but for now acceptable For now will observe without further dialysis; reluctant to replace catheter in someone who may not need catheter much longer; may however need replacement by end of week if uremia emerges -daily BMP -Continue Tomlinson for now and strict intake and output -continue bowel regimen Admission and Anticipated Discharge Date Admission Date: December 09, 2022 Subjective doing PT today and feels a bit better/ brighter; no constipation issues or sob; appetite still a challenge Review of Systems Review of Systems: All systems reviewed & are unremarkable except as noted in Subjective Physical Exam Constitutional: well developed, well nourished, + frail appearing and cooperative; no acute distress Eyes: EOM intact bilaterally ENMT: Ears: no external ear abnormality Nose: no external nose abnormality Mouth: + dry oral mucous membranes Neck: no nuchal rigidity Respiratory: normal respiratory effort and + paradoxical thoraco-abdominal movement; no respiratory distress and no cough Auscultation: + diminished lung sounds (markedly) and + crackles (bibasilar) Cardiovascular: Rate/Rhythm: regular rate and regular rhythm Extremities: + edema (Trace bilaterally) Gastrointestinal (Abdomen): Inspection/Auscultation: normal bowel sounds (RUQ drain still present); + abdomen abnormal to inspection (Right upper quadrant drain) Percussion/Palpation: abdomen soft; abdomen nontender Musculoskeletal: Extremities: + abnormal strength (cannot situp w/o asst; BLE weak) Skin: no rashes, warm and dry Psychiatric: Orientation: alert, oriented x 3, oriented to person and cooperative Results & Data Vital Signs (Past 12 Hours) Vital Signs Temp Pulse Pulse Pulse Resp BP BP 01/03/23 07:49 36.5 C 74 18 119/71 01/03/23 03:06 36.9 C 81 16 136/78 01/03/23 00:00 36.6 C 99 H 20 113/75 01/02/23 23:27 76 Pulse Ox O2 Del Method 01/03/23 07:49 93 Room Air 01/03/23 03:06 95 Room Air 01/03/23 00:00 92 Room Air 01/02/23 23:27 Laboratory Results 01/02/23 06:00 01/03/23 06:17
[2023-01-03] MEDS: MAGNESIUM OXIDE 400 MG TAB PO SCH ×2 (09:25→19:58)
[2023-01-03] MEDS: CALCIUM CARBONATE 1,250 MG/5 ML UDC PO SCH ×2 (09:25→19:58)
[2023-01-03] MEDS: METOPROLOL SUCC 50MG EXT REL TAB PO SCH ×2 (09:25→19:58)
[2023-01-03] MEDS: FLUTICASONE PROPIONATE NA SPR 16 GM BTL NAE SCH (09:26)
[2023-01-03] MEDS: AMIODARONE 200 MG TAB PO SCH ×2 (09:26→19:57)
[2023-01-03] MEDS: SERTRALINE HCL 50 MG TABLET PO SCH (09:26)
[2023-01-03] MEDS: APIXABAN 5 MG TABLET PO SCH ×2 (09:26→19:58)
[2023-01-03] MEDS: methIMAzole 5 MG TABLET PO SCH (09:26)
[2023-01-03] MEDS: DOCUSATE SODIUM/SENNA 50/8.6MG TAB PO SCH ×2 (09:36→20:01)
--- NOTE | 2023-01-03 18:42 | Hospitalist Progress Note ---
Date of Service January 03, 2023 Assessment & Plan (1) Acute pancreatitis: (2) Nausea and vomiting: Plan: Acute gallstone pancreatitis-POA Acute cholangitis Pancreatic pseudocyst --CT ABD/:Peripancreatic fat stranding is seen concerning for pancreatitis. Prominence of the gallbladder may be reactive or less likely may represent acute cholecystitis. Nonobstructive nephrolithiasis. --Gall Bladder USD:The gallbladder is distended and full of stones/sludge as detailed above. Findings are suspicious for acute cholecystitis. The pancreas was not well visualized by ultrasound. CT findings remain consistent with pancreatitis. Correlate with clinical and laboratory findings. Hepatic steatosis. Trace perihepatic ascites. --Repeat CT ABD:Peripancreatic stranding is somewhat decreased from prior exam. There is interval increased organization of peripancreatic fluid collections compatible with acute peripancreatic collection. Likely significant remnant gallbladder noted in this patient status post cholecystectomy. Percutaneous drainage catheter is again seen, a small amount of fluid in subcutaneous gas is noted along the soft tissue tract. Bilateral nephrolithiasis without evidence of obstruction. --S/p Lap chol and ERCPwith sphincterotomy and balloon sweeping of the bile duct for stones and puswith stent placement on 12/10/22 LFT normalized, Lipase improved Appreciate medicare biller, surgery input Tolerating diet, poor oral intake Needs repeat CT in 3 to 4 weeks Needs follow-up with surgery upon discharge Will need repeat ERCP in 2 months for stent removal Plan to leave the drain until likely after stent removal/for least 4 to 6 weeks Septic shock Secondary to above IV pressors discontinued Blood culture, urine culture, fungal culture are negative Completed IV Zosyn course Caspofungin discontinued on 12/26 since patient completed 7 days course Blood and urine culture were negative MIMI drain fluid culture negative Acute respiratory failure with hypoxia Likely from dependent atelectasis Continue to encourage incentive spirometry and flutter Weaned off of supplemental oxygen Saturating well on room air Paroxysmal Afib Episodes of Afib RVR during hospitalization ECHO showed normal LV wall function. EF 65 to 70 % Cardiology consulted Initially No anticoagulant considering comorbidities: severe pancreatitis/risk of hemorrhagic pancreatitis, recent surgery Continue metoprolol and amiodarone PO , metoprolol dose increased Cardiology following Monitor and replace electrolytes as needed Started on Eliquis for anticoagulation SAMMY Ischemic ATN multifactorial Temporarily was dialyzed during hospital stay Cr slowly improving Monitor I's and O's, daily BMP, urine output Appreciate nephrology input Follow-up Avoid nephrotoxic agents as able Suspected Vaginal bleeding Possible related to urethral trauma from the catheter. Hb stable while on Eliquis Appreciate JEWELRY MAKER Input Monitor CBC Generalized weakness Continue PT/OT eval Fall precaution Rehab as able Prediabetes Recent Hba1c 6.1 on 12/10/22 Continue monitor BS Hypertension BP stable Resume home meds as able if blood pressure elevates Hyperthyroidism Continue Methimazole Anxiety Continue Sertraline H/O MS Follow-up as outpatient DVT Px: Eliquis Code status Full code Admission and Anticipated Discharge Date Admission Date: December 09, 2022 Subjective Patient is seen and examined at bedside Very poor oral intake as per family Family concerned about bedsores Patient denies any chest pain, dyspnea, dizziness, nausea, abdominal pain No other complaints Renal function improving Review of Systems Review of Systems: All systems reviewed & are unremarkable except as noted in Subjective Physical Exam Physical Exam: Physical Exam: Vitals signs as noted above General Appearance:Obese, no apparent distress Head: normocephalic, Atraumatic Eyes: normal inspection, EOMI Neck: supple, Trachea midline Respiratory/Chest: Decreased breath sounds, CTA, No accessory muscle use Cardiovascular: S1, S2, No murmur Abdomen/GI:Soft, Non tender, + drain, surgical scar, bowel sounds present Extremities/Musculoskeletal:normal inspection, Pedal edema Neurologic/Psych:AAOX2, grossly no focal neurological deficits, + forgetful Skin: normal color, warm Results & Data Results & Data Vital Signs (Past 12 Hours) Vital Signs Temp Pulse Pulse Resp BP Pulse Ox O2 Del Method 01/03/23 17:25 75 01/03/23 15:44 36.8 C 74 18 111/68 98 Room Air 01/03/23 14:41 95 01/03/23 11:38 36.4 C L 74 18 125/76 93 Room Air 01/03/23 08:00 75 01/03/23 08:00 Room Air 01/03/23 07:49 36.5 C 74 18 119/71 93 Room Air Laboratory Results BMP 01/03/23 06:17 Sodium 140 Potassium 3.5 Chloride 105 Carbon Dioxide 25 BUN 62 H Creatinine 3.75 H Glucose 118 H Calcium 8.0 L (1) Acute pancreatitis Acute pancreatitis complication: unspecified Pancreatitis type: unspecified pancreatitis type Qualified Code(s): K85.90 - Acute pancreatitis without necrosis or infection, unspecified (2) Nausea and vomiting Vomiting type: unspecified Qualified Code(s): R11.2 - Nausea with vomiting, unspecified
[2023-01-04 06:25] LABS: Hematocrit (blood only) 29.3 % (37.0-47.0); Hemoglobin 9.6 g/dl (12.0-16.0); Mean Corpuscular Hemoglobin 28.5 pg (25.0-34.0); Mean Corpuscular Hgb Conc 32.8 g/dL (32.0-36.0); Mean Corpuscular Volume 86.9 fL (80.0-100.0); Mean Platelet Volume 9.6 fL (9.4-12.4); Platelet Count 361 K/uL (130-400); RDW Coefficient of Variation 14.4 % (11.5-14.5); RDW Standard Deviation 44.9 fL (36.4-46.3); Red Blood Count 3.37 M/uL (4.20-5.40); White Blood Count 11.99 K/ul (4.8-10.8)
[2023-01-04 06:47] LABS: BUN Creatinine Ratio 17.5 (10-20); Calcium 8.3 mg/dl (8.6-10.3); Creatinine Clr Calc Pharmacy 16.6 ml/min; Est GFR (African American) 14.9 ml/min; Est GFR (Non-African American) 12.9 ml/min; Potassium 3.3 mmol/L (3.5-5.1)
[2023-01-04] MEDS: APIXABAN 5 MG TABLET PO SCH ×2 (08:34→20:12)
[2023-01-04] MEDS: CALCIUM CARBONATE 1,250 MG/5 ML UDC PO SCH ×2 (08:34→20:13)
[2023-01-04] MEDS: MAGNESIUM OXIDE 400 MG TAB PO SCH ×2 (08:34→20:13)
[2023-01-04] MEDS: AMIODARONE 200 MG TAB PO SCH ×2 (08:34→20:12)
[2023-01-04] MEDS: FLUTICASONE PROPIONATE NA SPR 16 GM BTL NAE SCH (08:34)
[2023-01-04] MEDS: methIMAzole 5 MG TABLET PO SCH (08:34)
[2023-01-04] MEDS: SERTRALINE HCL 50 MG TABLET PO SCH (08:34)
[2023-01-04] MEDS: METOPROLOL SUCC 50MG EXT REL TAB PO SCH ×2 (08:34→20:13)
[2023-01-04] MEDS: DOCUSATE SODIUM/SENNA 50/8.6MG TAB PO SCH ×2 (08:38→20:18)
[2023-01-04] MEDS ORDERED: POTASSIUM CHLORIDE CRTAB 20 MEQ TABCR PO ONE ×2 (09:28→12:38)
--- NOTE | 2023-01-04 12:38 | Nephrology Progress Note ---
Date of Service January 04, 2023 Assessment & Plan (1) SAMMY (acute kidney injury): Plan: baseline creatinine 0.8; dialysis dependent oligoanuric stage 3 SAMMY ischemic ATN multifactorial and recurrent initially including IV contrast, poor po intake prior to admission (presenting s.g. on UA > 1045), continued losartan in setting of above (last dose 12/11), sepsis from pancreatitis/cholecystitis, then compounded by poor renal perfusion w/ pAF and hypotension for several days though this instability resolved by December 13 for the most part. ATN did not resolve/worsened w/ ongoing sepsis; first HD 12/18; TDC on 12/22 continue strict I/O and daily bmp to monitor for renal recovery > increase in UOP is promising No need for renal diet for now Her dialysis catheter basically does not function even with application of alteplase prior to most every treatment since catheter insertion>> her last full dialysis treatment was December 29 ; January 01 treatment aborted due to catheter malfunction >lab trends show even when TDC runs well w/ adequate bloodflow (such as 12/29) she has poor clearance >> ? recirculation UOP 900 to 1000 >1500 mL > 1400 mL daily past several days Creatinine still quite elevated and today further downtrending; chemistries acceptable volume status not optimal but for now acceptable For now will observe without further dialysis; >>>case d/w Dr Tamayo who if creatinine improvement continues will remove TDC tomorrow -daily BMP -Continue Tomlinson for now and strict intake and output -continue bowel regimen >had one dose of 20 mEq K >> will give another 20 as well Admission and Anticipated Discharge Date Admission Date: December 09, 2022 Subjective Feels about the same today as yesterday she tells me. Still borderline appetite. No pain issues. Denies shortness of breath. Concerned about generalized weakness but for the first time today and the time that I have worked with her she maneuvers for the exam with minimal assistance Review of Systems Review of Systems: All systems reviewed & are unremarkable except as noted in Subjective Physical Exam Constitutional: well developed, well nourished, + frail appearing and international exchange coordinator perative; no acute distress Eyes: EOM intact bilaterally ENMT: Ears: no external ear abnormality Nose: no external nose abnormality Mouth: + dry oral mucous membranes Neck: no nuchal rigidity Respiratory: normal respiratory effort; no respiratory distress and no cough Auscultation: + diminished lung sounds (markedly) and + crackles (bibasilar) Cardiovascular: Rate/Rhythm: regular rate and regular rhythm Extremities: + edema (Trace bilaterally) Gastrointestinal (Abdomen): Inspection/Auscultation: normal bowel sounds (RUQ drain still present); + abdomen abnormal to inspection (Right upper quadrant drain) Percussion/Palpation: abdomen soft; abdomen nontender Musculoskeletal: Extremities: + abnormal strength (Today sits up in bed with minimal assist; BLE weak) Skin: no rashes, warm and dry Psychiatric: Orientation: alert, oriented x 3, oriented to person and cooperat jana Results & Data Vital Signs (Past 12 Hours) Vital Signs Temp Pulse Pulse Resp BP Pulse Ox O2 Del Method 01/04/23 12:09 36.4 C L 75 18 127/81 95 Room Air 01/04/23 08:29 36.5 C 70 17 129/72 95 Room Air 01/04/23 07:39 74 01/04/23 07:39 Room Air 01/04/23 02:45 36.4 C L 80 20 120/78 97 Room Air Laboratory Results 01/04/23 06:05 01/04/23 06:05
--- NOTE | 2023-01-04 16:42 | Hospitalist Progress Note ---
Date of Service January 04, 2023 Assessment & Plan (1) Acute pancreatitis: (2) Nausea and vomiting: Plan: Acute gallstone pancreatitis-POA Acute cholangitis Pancreatic pseudocyst --CT ABD/:Peripancreatic fat stranding is seen concerning for pancreatitis. Prominence of the gallbladder may be reactive or less likely may represent acute cholecystitis. Nonobstructive nephrolithiasis. --Gall Bladder USD:The gallbladder is distended and full of stones/sludge as detailed above. Findings are suspicious for acute cholecystitis. The pancreas was not well visualized by ultrasound. CT findings remain consistent with pancreatitis. Correlate with clinical and laboratory findings. Hepatic steatosis. Trace perihepatic ascites. --Repeat CT ABD:Peripancreatic stranding is somewhat decreased from prior exam. There is interval increased organization of peripancreatic fluid collections compatible with acute peripancreatic collection. Likely significant remnant gallbladder noted in this patient status post cholecystectomy. Percutaneous drainage catheter is again seen, a small amount of fluid in subcutaneous gas is noted along the soft tissue tract. Bilateral nephrolithiasis without evidence of obstruction. --S/p Lap chol and ERCPwith sphincterotomy and balloon sweeping of the bile duct for stones and puswith stent placement on 12/10/22 LFT normalized, Lipase improved Appreciate aquatic centre manager, surgery input Tolerating diet, poor oral intake Needs repeat CT in 3 to 4 weeks Needs follow-up with surgery upon discharge Will need repeat ERCP in 2 months for stent removal Plan to leave the drain until likely after stent removal/for least 4 to 6 weeks Continue current management Septic shock Secondary to above IV pressors discontinued Blood culture, urine culture, fungal culture are negative Completed IV Zosyn course Caspofungin discontinued on 12/26 since patient completed 7 days course Blood and urine culture were negative MIMI drain fluid culture negative Acute respiratory failure with hypoxia Likely from dependent atelectasis Continue to encourage incentive spirometry and flutter Weaned off of supplemental oxygen Saturating well on room air Paroxysmal Afib Episodes of Afib RVR during hospitalization ECHO showed normal LV wall function. EF 65 to 70 % Cardiology consulted Initially No anticoagulant considering comorbidities: severe pancreatitis/risk of hemorrhagic pancreatitis, recent surgery Continue metoprolol and amiodarone PO , metoprolol dose increased Cardiology following Monitor and replace electrolytes as needed Started on Eliquis for anticoagulation--no recurrence of bleeding SAMMY Ischemic ATN multifactorial Temporarily was dialyzed during hospital stay Cr slowly improving Monitor I's and O's, daily BMP, urine output Appreciate nephrology input Follow-up Avoid nephrotoxic agents as able If renal function continues to improve, plan to discontinue TDC tomorrow Suspected Vaginal bleeding Possible related to urethral trauma from the catheter. Hb stable while on Eliquis Appreciate EXPLOSIVE ORDNANCE DISPOSAL MANAGER Input Monitor CBC Generalized weakness Continue PT/OT eval Fall precaution Rehab as able Prediabetes Recent Hba1c 6.1 on 12/10/22 Continue monitor BS Hypertension BP stable Resume home meds as able if blood pressure elevates Hyperthyroidism Continue Methimazole Anxiety Continue Sertraline H/O MS Follow-up as outpatient DVT Px: Eliquis Code status Full code Disposition Rehab as able Admission and Anticipated Discharge Date Admission Date: December 09, 2022 Subjective Patient is seen and examined at bedside States that her appetite slowly improving No new complaints Discussed with patient's family at bedside Denies any chest pain, dyspnea, dizziness, nausea, abdominal pain Renal function improving Review of Systems Review of Systems: All systems reviewed & are unremarkable except as noted in Subjective Physical Exam Physical Exam: Physical Exam: Vitals signs as noted above General Appearance:Obese, no apparent distress Head: normocephalic, Atraumatic Eyes: normal inspection, EOMI Neck: supple, Trachea midline Respiratory/Chest: Decreased breath sounds, CTA, No accessory muscle use Cardiovascular: S1, S2, No murmur Abdomen/GI:Soft, Non tender, + drain, surgical scar, bowel sounds present Extremities/Musculoskeletal:normal inspection, Pedal edema Neurologic/Psych:AAOX2, grossly no focal neurological deficits, + forgetful Skin: normal color, warm Results & Data Results & Data Vital Signs (Past 12 Hours) Vital Signs Temp Pulse Pulse Resp BP Pulse Ox O2 Del Method 01/04/23 16:12 36.4 C L 79 18 136/78 94 Room Air 01/04/23 12:09 36.4 C L 75 18 127/81 95 Room Air 01/04/23 08:29 36.5 C 70 17 129/72 95 Room Air 01/04/23 07:39 74 01/04/23 07:39 Room Air Laboratory Results Short CBC 01/04/23 Range/Units 06:05 WBC 11.99 H (4.8-10.8) K/ul Hgb 9.6 L (12.0-16.0) g/dl Hct 29.3 L (37.0-47.0) % Plt Count 361 (130-400) K/uL BMP 01/04/23 06:05 Sodium 140 Potassium 3.3 L Chloride 105 Carbon Dioxide 25 BUN 59 H Creatinine 3.37 H D Glucose 117 H Calcium 8.3 L (1) Acute pancreatitis Acute pancreatitis complication: unspecified Pancreatitis type: unspecified pancreatitis type Qualified Code(s): K85.90 - Acute pancreatitis without necrosis or infection, unspecified (2) Nausea and vomiting Vomiting type: unspecified Qualified Code(s): R11.2 - Nausea with vomiting, unspecified
[2023-01-04] MEDS: CETIRIZINE HCL 10 MG TABLET PO SCH (20:13)
[2023-01-05 06:41] LABS: BUN Creatinine Ratio 18.8 (10-20); Calcium 8.3 mg/dl (8.6-10.3); Creatinine Clr Calc Pharmacy 19.2 ml/min; Est GFR (African American) 17.7 ml/min; Est GFR (Non-African American) 15.3 ml/min; Potassium 3.8 mmol/L (3.5-5.1)
[2023-01-05] MEDS ORDERED: POTASSIUM CHLORIDE CRTAB 20 MEQ TABCR PO ONE (07:24)
--- NOTE | 2023-01-05 07:24 | Nephrology Progress Note ---
Date of Service January 05, 2023 Assessment & Plan (1) SAMMY (acute kidney injury): Plan: improving SAMMY baseline creatinine 0.8; dialysis dependent oligoanuric stage 3 SAMMY ischemic ATN multifactorial and recurrent initially including IV contrast, poor po intake prior to admission (presenting s.g. on UA > 1045), continued losartan in setting of above (last dose 12/11), sepsis from pancreatitis/cholecystitis, then compounded by poor renal perfusion w/ pAF and hypotension for several days though this instability resolved by December 13 for the most part. ATN did not r esolve/worsened w/ ongoing sepsis; first HD 12/18; TDC on 12/22 continue strict I/O and daily bmp to monitor for renal recovery > increase in UOP is promising No need for renal diet for now Her dialysis catheter basically does not function even with application of alteplase prior to most every treatment since catheter insertion>> her last full dialysis treatment was December 29 ; January 01 treatment aborted due to catheter malfunction >lab trends show even when TDC runs well w/ adequate bloodflow (such as 12/29) she has poor clearance >> ? recirculation UOP 900 to 1000 >1500 mL > 1400 > 2200 mL daily past several days Creatinine still quite elevated and today rapidly downtrending; chemistries acceptable volume status not optimal but for now acceptable believe she will need no more dilaysis >>>pt appropriate for TDC removal today by vascular -daily BMP -Continue Tomlinson for now and strict intake and output -continue bowel regimen >will give another 40 mEq of K today Admission and Anticipated Discharge Date Admission Date: December 09, 2022 Subjective no interval clinical events; cont to c/o constipation > RN reports BM ON but pt forgot this, still feels abd fullness Review of Systems Review of Systems: All systems reviewed & are unremarkable except as noted in Subjective Physical Exam Constitutional: well developed, well nourished, + frail appearing and cooperative; no acute distress Eyes: EOM intact bilaterally ENMT: Ears: no external ear abnormality Nose: no external nose abnormality Mouth: + dry oral mucous membranes Neck: no nuchal rigidity Respiratory: normal respiratory effort; no respiratory distress and no cough Auscultation: + diminished lung sounds (markedly) Cardiovascular: Rate/Rhythm: regular rate and regular rhythm Extremities: + edema (Trace bilaterally) Gastrointestinal (Abdomen): Inspection/Auscultation: normal bowel sounds (RUQ drain still present); + abdomen abnormal to inspection (Right upper quadrant drain) Percussion/Palpation: abdomen soft; abdomen nontender Musculoskeletal: Extremities: + abnormal strength (exam maneuvers a challenge; BLE weak) Skin: no rashes, warm and dry Psychiatric: Orientation: alert, oriented x 3, oriented to person and cooperative Results & Data Vital Signs (Past 12 Hours) Vital Signs Temp Pulse Pulse Pulse Resp BP BP 01/05/23 05:20 36.4 C L 77 16 144/80 H 01/05/23 01:20 81 01/05/23 00:12 36.7 C 75 18 125/78 01/04/23 20:08 37.1 C 78 18 124/63 01/04/23 19:52 Pulse Ox O2 Del Method 01/05/23 05:20 94 Room Air 01/05/23 01:20 01/05/23 00:12 93 Room Air 01/04/23 20:08 94 Room Air 01/04/23 19:52 Room Air Laboratory Results 01/04/23 06:05 01/05/23 05:51
--- NOTE | 2023-01-05 08:09 | History & Physical Bridge Note ---
Date of Service January 05, 2023 History & Physical Bridge Note Patient for removal of permcath today. I have discussed the risks options and benefits of the procedure with the patient. The patient understands the risks options and benefits and agrees to the procedure. I have examined the patient, reviewed the History & Physical and in the interval since the performance of the History & Physical I have noted the following changes of clinical significance: no changes noted
[2023-01-05] MEDS: SERTRALINE HCL 50 MG TABLET PO SCH (08:49)
[2023-01-05] MEDS: DOCUSATE SODIUM/SENNA 50/8.6MG TAB PO SCH ×2 (08:49→19:48)
[2023-01-05] MEDS: METOPROLOL SUCC 50MG EXT REL TAB PO SCH ×2 (08:49→19:49)
[2023-01-05] MEDS: methIMAzole 5 MG TABLET PO SCH (08:49)
[2023-01-05] MEDS: AMIODARONE 200 MG TAB PO SCH ×2 (08:50→19:47)
[2023-01-05] MEDS: MAGNESIUM OXIDE 400 MG TAB PO SCH ×2 (08:50→20:59)
[2023-01-05] MEDS: APIXABAN 5 MG TABLET PO SCH ×2 (08:50→19:48)
[2023-01-05] MEDS: CALCIUM CARBONATE 1,250 MG/5 ML UDC PO SCH ×2 (08:50→19:48)
[2023-01-05] MEDS: FLUTICASONE PROPIONATE NA SPR 16 GM BTL NAE SCH (08:50)
[2023-01-05] MEDS ORDERED: LIDOCAINE 1% LOCAL 20 ML VIAL INJ ONE (10:32)
--- NOTE | 2023-01-05 10:34 | Operative Report ---
Post Operative Report Pre & Post Diagnosis Operation Date: 01/05/23 12:10 Pre-Op Diagnosis: Functioning Kidneys Post-Op Diagnosis: Functioning Kidneys I identified the patient and participated in the time-out.: Yes Procedure Operation Date: 01/05/23 12:10 Actual Procedures p Removal of Perm Catheter(Right) - Greg Tamayo MD Surgeon Greg Tamayo MD Tufter Operator None Estimated Blood Loss 0 Findings Consistent with Post-Op Diagnosis Specimens none Anesthesia Type Local Complications none Disposition Accompanied Patient To Recovery: No Indications Is a 72-year-old female had a PermCath placed for dialysis purposes. She now has recovery of her kidney function and no longer needs a PermCath. Removal was recommended. I have discussed the risks options and benefits of the procedure with the patient. The patient understands the risks options and benefits and agrees to the procedure. Description of Procedure The patient was taken to the angio suite and placed in the supine position. The patient was identified and a timeout performed. The right side of the neck, chest wall and catheter were prepped and draped in a sterile manner. Local anesthesia was then accomplished. Using sharp and blunt dissection, the cuff of the permcath was freed up from the surrounding fibrous tissue. The permcath and cuff were completely removed. Pressure was then applied and adequate hemostasis was obtained. A sterile dressing was then applied. The patient left the operation room in satisfactory condition and tolerated the procedure well. All needle and sponge counts were correct at the end of the procedure. I attest to the content of the Intraoperative Record and any orders documented therein. Any exceptions are noted below.
--- NOTE | 2023-01-05 16:47 | Hospitalist Progress Note ---
Date of Service January 05, 2023 Assessment & Plan (1) Acute pancreatitis: (2) Nausea and vomiting: Plan: Acute gallstone pancreatitis-POA Acute cholangitis Pancreatic pseudocyst --CT ABD/:Peripancreatic fat stranding is seen concerning for pancreatitis. Prominence of the gallbladder may be reactive or less likely may represent acute cholecystitis. Nonobstructive nephrolithiasis. --Gall Bladder USD:The gallbladder is distended and full of stones/sludge as detailed above. Findings are suspicious for acute cholecystitis. The pancreas was not well visualized by ultrasound. CT findings remain consistent with pancreatitis. Correlate with clinical and laboratory findings. Hepatic steatosis. Trace perihepatic ascites. --Repeat CT ABD:Peripancreatic stranding is somewhat decreased from prior exam. There is interval increased organization of peripancreatic fluid collections compatible with acute peripancreatic collection. Likely significant remnant gallbladder noted in this patient status post cholecystectomy. Percutaneous drainage catheter is again seen, a small amount of fluid in subcutaneous gas is noted along the soft tissue tract. Bilateral nephrolithiasis without evidence of obstruction. --S/p Lap chol and ERCPwith sphincterotomy and balloon sweeping of the bile duct for stones and puswith stent placement on 12/10/22 LFT normalized, Lipase improved Appreciate drug abuse counselor, surgery input poor oral intake Needs repeat CT in 3 to 4 weeks Needs follow-up with surgery upon discharge Will need repeat ERCP in 2 months for stent removal Plan to leave the drain until likely after stent removal/for least 4 to 6 weeks Continue current management Tolerating diet Needs Rehab Placement Septic shock Secondary to above IV pressors discontinued Blood culture, urine culture, fungal culture are negative Completed IV Zosyn course Caspofungin discontinued on 12/26 since patient completed 7 days course Blood and urine culture were negative MIMI drain fluid culture negative Acute respiratory failure with hypoxia Likely from dependent atelectasis Continue to encourage incentive spirometry and flutter Weaned off of supplemental oxygen Saturating well on room air Paroxysmal Afib Episodes of Afib RVR during hospitalization ECHO showed normal LV wall function. EF 65 to 70 % Cardiology consulted Initially No anticoagulant considering comorbidities: severe pancreatitis/risk of hemorrhagic pancreatitis, recent surgery Continue metoprolol and amiodarone PO , metoprolol dose increased Cardiology following Monitor and replace electrolytes as needed Started on Eliquis for anticoagulation--no recurrence of bleeding SAMMY Ischemic ATN multifactorial Temporarily was dialyzed during hospital stay Cr slowly improving Monitor I's and O's, daily BMP, urine output Appreciate nephrology input Follow-up Avoid nephrotoxic agents as able Had TDC removed today Cr improved to 2.92 today Suspected Vaginal bleeding Possible related to urethral trauma from the catheter. Hb stable while on Eliquis Appreciate RN INTERNATIONAL Input Monitor CBC Generalized weakness Continue PT/OT eval Fall precaution Rehab as able Prediabetes Recent Hba1c 6.1 on 12/10/22 Continue monitor BS Hypertension Continue to hold losartan due to SAMMY continue Metoprolol Adjust meds as needed Hyperthyroidism Continue Methimazole Anxiety Continue Sertraline H/O MS Follow-up as outpatient DVT Px: Eliquis Code status Full code Disposition Rehab as able Admission and Anticipated Discharge Date Admission Date: December 09, 2022 Subjective Patient is seen and examined at bedside Reports having mild abd discomfort Appetite still poor No other complaints Denies any chest pain, dyspnea, dizziness, nausea, abdominal pain Family at bedside Review of Systems Review of Systems: All systems reviewed & are unremarkable except as noted in Subjective Physical Exam Physical Exam: Physical Exam: Vitals signs as noted above General Appearance:Obese, no apparent distress Head: normocephalic, Atraumatic Eyes: normal inspection, EOMI Neck: supple, Trachea midline Respiratory/Chest: Decreased breath sounds, CTA, No accessory muscle use Cardiovascular: S1, S2, No murmur Abdomen/GI:Soft, Non tender, + drain, surgical scar, bowel sounds present Extremities/Musculoskeletal:normal inspection, Pedal edema Neurologic/Psych:AAOX2, grossly no focal neurological deficits, + forgetful Skin: normal color, warm Results & Data Results & Data Vital Signs (Past 12 Hours) Vital Signs Temp Pulse Pulse Pulse Resp BP BP 01/05/23 16:19 36.4 C L 78 18 163/76 H 01/05/23 12:08 36.7 C 73 20 143/82 H 01/05/23 12:00 18 01/05/23 11:15 73 149/82 H 01/05/23 11:00 70 18 135/82 01/05/23 10:49 36.8 C 71 16 149/82 H 01/05/23 10:32 77 16 161/71 H 01/05/23 10:31 76 16 146/109 H 01/05/23 10:26 79 16 159/74 H 01/05/23 10:25 78 16 165/76 H 01/05/23 09:57 36.6 C 78 16 141/85 H 01/05/23 08:26 36.7 C 76 20 140/82 01/05/23 07:53 76 01/05/23 07:53 01/05/23 05:20 36.4 C L 77 16 144/80 H BP Pulse Ox O2 Del Method 01/05/23 16:19 96 Room Air 01/05/23 12:08 96 Room Air 01/05/23 12:00 140/84 97 Room Air 01/05/23 11:15 98 Room Air 01/05/23 11:00 98 Room Air 01/05/23 10:49 96 Room Air 01/05/23 10:32 97 Room Air 01/05/23 10:31 97 Room Air 01/05/23 10:26 97 Room Air 01/05/23 10:25 97 Room Air 01/05/23 09:57 96 Room Air 01/05/23 08:26 95 Room Air 01/05/23 07:53 01/05/23 07:53 Room Air 01/05/23 05:20 94 Room Air Laboratory Results [facility] 01/05/23 05:51 Sodium 139 Potassium 3.8 Chloride 106 Carbon Dioxide 25 BUN 55 H Creatinine 2.92 H D Glucose 115 H Calcium 8.3 L (1) Acute pancreatitis Acute pancreatitis complication: unspecified Pancreatitis type: unspecified pancreatitis type Qualified Code(s): K85.90 - Acute pancreatitis without necrosis or infection, unspecified (2) Nausea and vomiting Vomiting type: unspecified Qualified Code(s): R11.2 - Nausea with vomiting, unspecified
[2023-01-06 05:03] LABS: BUN Creatinine Ratio 19.8 (10-20); Calcium 8.7 mg/dl (8.6-10.3); Creatinine Clr Calc Pharmacy 21.7 ml/min; Est GFR (African American) 20.6 ml/min; Est GFR (Non-African American) 17.8 ml/min; Potassium 4.1 mmol/L (3.5-5.1)
--- NOTE | 2023-01-06 07:44 | Nephrology Progress Note ---
Date of Service January 06, 2023 Assessment & Plan (1) SAMMY (acute kidney injury): Plan: further improving SAMMY baseline creatinine 0.8; dialysis dependent oligoanuric stage 3 SAMMY ischemic ATN multifactorial and recurrent initially including IV contrast, poor po intake prior to admission (presenting s.g. on UA > 1045), continued losartan in setting of above (last dose 12/11), sepsis from pancreatitis/cholecystitis, then compounded by poor renal perfusion w/ pAF and hypotension for several days though this instability resolved by December 13 for the most part. ATN did not resolve/worsened w/ ongoing sepsis; first HD 12/18; TDC on 12/22; TDC removed 01/05 UOP 900 to 1000 >1500 mL > 1400 > 2200 mL > 2000ML daily ; voiding well >>>recommend removing catalan Creatinine now firmly downtrending; chemistries acceptable volume status not optimal but for now acceptable Reasonable for d/c from nephro standpoint NEPHROLOGY DISCHARGE RECOMMENDATIONS -hospital discharge appointment in 2-4 wks -check BMP at facility q Mon, Thurs > call nephro if concerns -no nsaids -do not resume OP losartan at d/c -permissive HTN for now > SBP goal in 130-140s -no need for renal diet Admission and Anticipated Discharge Date Admission Date: December 09, 2022 Subjective tired this am when I saw her on rounds. no pain, no n/v, no mention of constipatoin, no sob Review of Systems Review of Systems: All systems reviewed & are unremarkable except as noted in Subjective Physical Exam Constitutional: well developed, well nourished, + frail appearing and cooperative; no acute distress Eyes: EOM intact bilaterally ENMT: Ears: no external ear abnormality Nose: no external nose abnormality Mouth: + dry oral mucous membranes Neck: no nuchal rigidity Respiratory: normal respiratory effort and + paradoxical thoraco-abdominal movement; no respiratory distress and no cough Auscultation: + diminished lung sounds (markedly) Cardiovascular: Rate/Rhythm: regular rate and regular rhythm Extremities: + edema (Trace bilaterally) Gastrointestinal (Abdomen): Inspection/Auscultation: normal bowel sounds (RUQ drain still present); + abdomen abnormal to inspection (Right upper quadrant drain) Percussion/Palpation: abdomen soft; abdomen nontender Musculoskeletal: Extremities: + abnormal strength (exam maneuvers a challenge; BLE weak) Skin: no rashes, warm and dry Psychiatric: Orientation: alert, oriented x 3, oriented to person and cooperative Results & Data Vital Signs (Past 12 Hours) Vital Signs Temp Pulse Pulse Pulse Resp BP Pulse Ox 01/06/23 07:08 36.8 C 72 17 147/71 H 96 01/06/23 02:57 36.6 C 77 16 145/72 H 93 01/06/23 00:15 78 01/05/23 22:44 36.4 C L 79 18 148/83 H 94 O2 Del Method 01/06/23 07:08 Room Air 01/06/23 02:57 Room Air 01/06/23 00:15 01/05/23 22:44 Room Air Laboratory Results 01/04/23 06:05 01/06/23 04:17
[2023-01-06] MEDS: FLUTICASONE PROPIONATE NA SPR 16 GM BTL NAE SCH (08:27)
[2023-01-06] MEDS: CALCIUM CARBONATE 1,250 MG/5 ML UDC PO SCH ×2 (08:27→21:05)
[2023-01-06] MEDS: APIXABAN 5 MG TABLET PO SCH ×2 (08:27→21:04)
[2023-01-06] MEDS: SERTRALINE HCL 50 MG TABLET PO SCH (08:27)
[2023-01-06] MEDS: MAGNESIUM OXIDE 400 MG TAB PO SCH ×2 (08:28→21:06)
[2023-01-06] MEDS: METOPROLOL SUCC 50MG EXT REL TAB PO SCH ×2 (08:28→21:06)
[2023-01-06] MEDS: AMIODARONE 200 MG TAB PO SCH ×2 (08:28→21:03)
[2023-01-06] MEDS: methIMAzole 5 MG TABLET PO SCH (08:28)
[2023-01-06] MEDS: DOCUSATE SODIUM/SENNA 50/8.6MG TAB PO SCH ×2 (08:32→21:08)
--- NOTE | 2023-01-06 16:10 | Hospitalist Progress Note ---
Date of Service January 06, 2023 Assessment & Plan (1) Acute pancreatitis: (2) Nausea and vomiting: Plan: Acute gallstone pancreatitis-POA Acute cholangitis Pancreatic pseudocyst --CT ABD/:Peripancreatic fat stranding is seen concerning for pancreatitis. Prominence of the gallbladder may be reactive or less likely may represent acute cholecystitis. Nonobstructive nephrolithiasis. --Gall Bladder USD:The gallbladder is distended and full of stones/sludge as detailed above. Findings are suspicious for acute cholecystitis. The pancreas was not well visualized by ultrasound. CT findings remain consistent with pancreatitis. Correlate with clinical and laboratory findings. Hepatic steatosis. Trace perihepatic ascites. --Repeat CT ABD:Peripancreatic stranding is somewhat decreased from prior exam. There is interval increased organization of peripancreatic fluid collections compatible with acute peripancreatic collection. Likely significant remnant gallbladder noted in this patient status post cholecystectomy. Percutaneous drainage catheter is again seen, a small amount of fluid in subcutaneous gas is noted along the soft tissue tract. Bilateral nephrolithiasis without evidence of obstruction. --S/p Lap chol and ERCPwith sphincterotomy and balloon sweeping of the bile duct for stones and puswith stent placement on 12/10/22 LFT normalized, Lipase improved Appreciate survey researcher, surgery input poor oral intake Needs repeat CT in 3 to 4 weeks Needs follow-up with surgery upon discharge Will need repeat ERCP in 2 months for stent removal Plan to leave the drain until likely after stent removal/for least 4 to 6 weeks Tolerating diet, oral intake remains poor Waiting for rehab placement Septic shock Secondary to above IV pressors discontinued Blood culture, urine culture, fungal culture are negative Completed IV Zosyn course Caspofungin discontinued on 12/26 since patient completed 7 days course Blood and urine culture were negative MIMI drain fluid culture negative Acute respiratory failure with hypoxia Likely from dependent atelectasis Continue to encourage incentive spirometry and flutter Weaned off of supplemental oxygen Saturating well on room air Paroxysmal Afib Episodes of Afib RVR during hospitalization ECHO showed normal LV wall function. EF 65 to 70 % Cardiology consulted Initially No anticoagulant considering comorbidities: severe pancreatitis/risk of hemorrhagic pancreatitis, recent surgery Continue metoprolol and amiodarone PO , metoprolol dose increased Cardiology following Monitor and replace electrolytes as needed Started on Eliquis for anticoagulation--no recurrence of bleeding SAMMY Ischemic ATN multifactorial Temporarily was dialyzed during hospital stay Cr slowly improving Monitor I's and O's, daily BMP, urine output Appreciate nephrology input Follow-up Avoid nephrotoxic agents as able TDC removed on 01/05/23 Cr improved to 2.5 today No plan to resume losartan upon discharge Avoid NSAIDs Needs follow-up with nephrology in 2 to 4 weeks upon discharge Suspected Vaginal bleeding Possible related to urethral trauma from the catheter. Hb stable while on Eliquis Appreciate SLIP BRIDGE OPERATOR Input Monitor CBC Generalized weakness Continue PT/OT eval Fall precaution Rehab as able Prediabetes Recent Hba1c 6.1 on 12/10/22 Continue monitor BS Hypertension Continue to hold losartan due to SAMMY continue Metoprolol Adjust meds as needed Hyperthyroidism Continue Methimazole Anxiety Continue Sertraline H/O MS Follow-up as outpatient DVT Px: Eliquis Code status Full code Disposition Rehab when accepted Admission and Anticipated Discharge Date Admission Date: December 09, 2022 Subjective Patient is seen and examined at bedside Denies any abdominal pain today Having PT eval during my encounter Discussed with nephrology today Appetite still poor Denies any chest pain, dyspnea, dizziness, nausea, abdominal pain Family at bedside Review of Systems Review of Systems: All systems reviewed & are unremarkable except as noted in Subjective Physical Exam Physical Exam: Physical Exam: Vitals signs as noted above General Appearance:Obese, no apparent distress Head: normocephalic, Atraumatic Eyes: normal inspection, EOMI Neck: supple, Trachea midline Respiratory/Chest: Decreased breath sounds, CTA, No accessory muscle use Cardiovascular: S1, S2, No murmur Abdomen/GI:Soft, Non tender, + drain, surgical scar, bowel sounds present Extremities/Musculoskeletal:normal inspection, Pedal edema Neurologic/Psych:AAOX2, grossly no focal neurological deficits, + forgetful Skin: normal color, warm Results & Data Results & Data Vital Signs (Past 12 Hours) Vital Signs Temp Pulse Pulse Resp BP BP Pulse Ox 01/06/23 12:20 36.5 C 79 17 151/72 H 96 01/06/23 08:00 78 01/06/23 08:00 01/06/23 07:08 36.8 C 72 17 147/71 H 96 O2 Del Method 01/06/23 12:20 Room Air 01/06/23 08:00 01/06/23 08:00 Room Air 01/06/23 07:08 Room Air Laboratory Results BMP 01/06/23 04:17 Sodium 139 Potassium 4.1 Chloride 106 Carbon Dioxide 23 BUN 51 H Creatinine 2.58 H D Glucose 119 H Calcium 8.7 (1) Acute pancreatitis Acute pancreatitis complication: unspecified Pancreatitis type: unspecified pancreatitis type Qualified Code(s): K85.90 - Acute pancreatitis without necrosis or infection, unspecified (2) Nausea and vomiting Vomiting type: unspecified Qualified Code(s): R11.2 - Nausea with vomiting, unspecified
[2023-01-06] MEDS: CETIRIZINE HCL 10 MG TABLET PO SCH (21:05)
[2023-01-07 05:22] LABS: BUN Creatinine Ratio 20.8 (10-20); Calcium 8.4 mg/dl (8.6-10.3); Creatinine Clr Calc Pharmacy 25.7 ml/min; Est GFR (African American) 25.5 ml/min; Potassium 3.8 mmol/L (3.5-5.1)
[2023-01-07] MEDS: CALCIUM CARBONATE 1,250 MG/5 ML UDC PO SCH ×2 (08:38→20:39)
[2023-01-07] MEDS: AMIODARONE 200 MG TAB PO SCH ×2 (08:38→20:39)
[2023-01-07] MEDS: methIMAzole 5 MG TABLET PO SCH (08:39)
[2023-01-07] MEDS: FLUTICASONE PROPIONATE NA SPR 16 GM BTL NAE SCH (08:39)
[2023-01-07] MEDS: MAGNESIUM OXIDE 400 MG TAB PO SCH ×2 (08:39→20:41)
[2023-01-07] MEDS: APIXABAN 5 MG TABLET PO SCH ×2 (08:39→20:40)
[2023-01-07] MEDS: DOCUSATE SODIUM/SENNA 50/8.6MG TAB PO SCH ×2 (08:39→20:42)
[2023-01-07] MEDS: SERTRALINE HCL 50 MG TABLET PO SCH (08:39)
[2023-01-07] MEDS: METOPROLOL SUCC 50MG EXT REL TAB PO SCH ×2 (08:39→20:40)
--- NOTE | 2023-01-07 17:13 | Hospitalist Progress Note ---
Date of Service January 07, 2023 Assessment & Plan (1) Acute pancreatitis: (2) Nausea and vomiting: Plan: Acute gallstone pancreatitis-POA Acute cholangitis Pancreatic pseudocyst --CT ABD/:Peripancreatic fat stranding is seen concerning for pancreatitis. Prominence of the gallbladder may be reactive or less likely may represent acute cholecystitis. Nonobstructive nephrolithiasis. --Gall Bladder USD:The gallbladder is distended and full of stones/sludge as detailed above. Findings are suspicious for acute cholecystitis. The pancreas was not well visualized by ultrasound. CT findings remain consistent with pancreatitis. Correlate with clinical and laboratory findings. Hepatic steatosis. Trace perihepatic ascites. --Repeat CT ABD:Peripancreatic stranding is somewhat decreased from prior exam. There is interval increased organization of peripancreatic fluid collections compatible with acute peripancreatic collection. Likely significant remnant gallbladder noted in this patient status post cholecystectomy. Percutaneous drainage catheter is again seen, a small amount of fluid in subcutaneous gas is noted along the soft tissue tract. Bilateral nephrolithiasis without evidence of obstruction. --S/p Lap chol and ERCPwith sphincterotomy and balloon sweeping of the bile duct for stones and puswith stent placement on 12/10/22 LFT normalized, Lipase improved Appreciate deburrer, surgery input poor oral intake Needs repeat CT in 3 to 4 weeks Needs follow-up with surgery upon discharge Will need repeat ERCP in 2 months for stent removal Plan to leave the drain until likely after stent removal/for least 4 to 6 weeks Tolerating diet, oral intake remains poor Plan to discharge to rehab facility when accepted Septic shock Secondary to above IV pressors discontinued Blood culture, urine culture, fungal culture are negative Completed IV Zosyn course Caspofungin discontinued on 12/26 since patient completed 7 days course Blood and urine culture were negative MIMI drain fluid culture negative Acute respiratory failure with hypoxia Likely from dependent atelectasis Continue to encourage incentive spirometry and flutter Weaned off of supplemental oxygen Saturating well on room air Paroxysmal Afib Episodes of Afib RVR during hospitalization ECHO showed normal LV wall function. EF 65 to 70 % Cardiology consulted Initially No anticoagulant considering comorbidities: severe pancreatitis/risk of hemorrhagic pancreatitis, recent surgery Continue metoprolol and amiodarone PO , metoprolol dose increased Cardiology following Monitor and replace electrolytes as needed Started on Eliquis for anticoagulation--no recurrence of bleeding SAMMY Ischemic ATN multifactorial Temporarily was dialyzed during hospital stay Cr slowly improving Monitor I's and O's, daily BMP, urine output Appreciate nephrology input Follow-up Avoid nephrotoxic agents as able TDC removed on 01/05/23 Cr improved to 2.5 today No plan to resume losartan upon discharge Avoid NSAIDs Needs follow-up with nephrology in 2 to 4 weeks upon discharge Suspected Vaginal bleeding Possible related to urethral trauma from the catheter. Hb stable while on Eliquis Appreciate COAL TRIMMER Input Monitor CBC Generalized weakness Continue PT/OT eval Fall precaution Rehab as able Prediabetes Recent Hba1c 6.1 on 12/10/22 Continue monitor BS Hypertension Continue to hold losartan due to SAMMY continue Metoprolol Adjust meds as needed Hyperthyroidism Continue Methimazole Anxiety Continue Sertraline H/O MS Follow-up as outpatient DVT Px: Eliquis Code status Full code Disposition Rehab when accepted Admission and Anticipated Discharge Date Admission Date: December 09, 2022 Subjective Patient is seen and examined at bedside No new complaints Denies any abdominal pain today Discussed with patient's family at bedside Denies any chest pain, dyspnea, dizziness, nausea, abdominal pain Waiting for rehab placement Offers no complaints today Review of Systems Review of Systems: All systems reviewed & are unremarkable except as noted in Subjective Physical Exam Physical Exam: Physical Exam: Vitals signs as noted above General Appearance:Obese, no apparent distress Head: normocephalic, Atraumatic Eyes: normal inspection, EOMI Neck: supple, Trachea midline Respiratory/Chest: Decreased breath sounds, CTA, No accessory muscle use Cardiovascular: S1, S2, No murmur Abdomen/GI:Soft, Non tender, + drain, surgical scar, bowel sounds present Extremities/Musculoskeletal:normal inspection, Pedal edema Neurologic/Psych:AAOX2, grossly no focal neurological deficits, + forgetful Skin: normal color, warm Results & Data Results & Data Vital Signs (Past 12 Hours) Vital Signs Temp Pulse Resp BP BP Pulse Ox O2 Del Method 01/07/23 15:06 36.4 C L 79 17 144/75 H 96 Room Air 01/07/23 11:30 36.4 C L 73 17 148/79 H 96 Room Air 01/07/23 08:00 Room Air 01/07/23 07:13 36.4 C L 75 17 138/80 96 Room Air Laboratory Results BMP 01/07/23 04:22 Sodium 139 Potassium 3.8 Chloride 105 Carbon Dioxide 26 BUN 45 H Creatinine 2.16 H D Glucose 115 H Calcium 8.4 L (1) Acute pancreatitis Acute pancreatitis complication: unspecified Pancreatitis type: unspecified pancreatitis type Qualified Code(s): K85.90 - Acute pancreatitis without necrosis or infection, unspecified (2) Nausea and vomiting Vomiting type: unspecified Qualified Code(s): R11.2 - Nausea with vomiting, unspecified
[2023-01-08 07:07] LABS: Creatinine Clr Calc Pharmacy 29.9 ml/min; Est GFR (African American) 31.4 ml/min; Est GFR (Non-African American) 27.1 ml/min
[2023-01-08] MEDS: APIXABAN 5 MG TABLET PO SCH ×2 (08:19→20:21)
[2023-01-08] MEDS: MAGNESIUM OXIDE 400 MG TAB PO SCH ×2 (08:19→20:23)
[2023-01-08] MEDS: methIMAzole 5 MG TABLET PO SCH (08:19)
[2023-01-08] MEDS: SERTRALINE HCL 50 MG TABLET PO SCH (08:19)
[2023-01-08] MEDS: CALCIUM CARBONATE 1,250 MG/5 ML UDC PO SCH ×2 (08:19→20:21)
[2023-01-08] MEDS: AMIODARONE 200 MG TAB PO SCH ×2 (08:19→20:20)
[2023-01-08] MEDS: METOPROLOL SUCC 50MG EXT REL TAB PO SCH ×2 (08:19→20:23)
[2023-01-08] MEDS: FLUTICASONE PROPIONATE NA SPR 16 GM BTL NAE SCH (08:20)
[2023-01-08] MEDS: DOCUSATE SODIUM/SENNA 50/8.6MG TAB PO SCH ×2 (08:20→20:23)
--- NOTE | 2023-01-08 09:46 | Nephrology Progress Note ---
Date of Service January 08, 2023 Assessment & Plan Admission and Anticipated Discharge Date Admission Date: December 09, 2022 Subjective Assessment & Plan (1) SAMMY (acute kidney injury): Plan: further improving SAMMY baseline creatinine 0.8 --dialysis dependent oligoanuric stage 3 SAMMY ischemic ATN from sepsis from pancreatitis/cholecystitis, then compounded by poor renal perfusion w/ pAF and hypotension for several days though this instability resolved by December 13 for the most part. ATN did not resolve/worsened w/ ongoing sepsis; first HD 12/18; TDC on 12/22; TDC removed 4/7 1600 ml urine and now creat down to 1.8. NEPHROLOGY DISCHARGE RECOMMENDATIONS recommend removing catalan and do voiding trial. Can be done at the rehab hospital also Reasonable for d/c from nephro standpoint -hospital discharge appointment in 2-4 wks check BMP at facility q Mon, Thurs > call nephro if concerns -no nsaids -do not resume OP losartan at d/c -permissive HTN for now > SBP goal in 130-140s -no need for renal diet Subjective Tired and weak. no pain, no n/v, no sob urine 1600 ml. Review of Systems Review of Systems: All systems reviewed & are unremarkable except as noted in Subjective Physical Exam Constitutional: well developed, well nourished, + frail appearing and cooperative; no acute distress Eyes: EOM intact bilaterally ENMT: Ears: no external ear abnormality Nose: no external nose abnormality Mouth: + dry oral mucous membranes Neck: no nuchal rigidity Respiratory: normal respiratory effort and + paradoxical thoraco-abdominal movement; no respiratory distress and no cough Auscultation: + diminished lung sounds (markedly) Cardiovascular: Rate/Rhythm: regular rate and regular rhythm Extremities: + edema (Trace bilaterally) Gastrointestinal (Abdomen): Inspection/Auscultation: normal bowel sounds (RUQ drain still present); + abdomen abnormal to inspection (Right upper quadrant drain) Percussion/Palpation: abdomen soft; abdomen nontender Musculoskeletal: Extremities: + abnormal strength (exam maneuvers a challenge; BLE weak) Skin: no rashes, warm and dry Psychiatric: Orientation: alert, oriented x 3, oriented to person and cooperative Results & Data Vital Signs (Past 12 Hours) Vital Signs Temp Pulse Pulse Pulse Resp BP BP 01/08/23 07:00 76 01/08/23 07:13 36.6 C 74 18 135/74 04/10/23 03:23 36.5 C 73 17 120/62 01/07/23 23:00 75 01/07/23 22:36 36.6 C 76 18 117/71 Pulse Ox O2 Del Method 01/08/23 07:00 01/08/23 07:13 94 Room Air 01/08/23 03:23 94 Room Air 01/07/23 23:00 01/07/23 22:36 97 Room Air
[2023-01-08 18:10] LABS: Appearance Urine Cloudy (Clear); Bilirubin Urine Negative (Negative); Blood Urine 1+ (Negative); Color Urine Yellow; Glucose Urine UA Negative (Negative); Ketones Urine Negative (Negative); Leukocyte Esterase Urine 3+ (Negative); Nitrite Urine Positive (Negative); Protein Urine 1+ (Negative); Urobilinogen Urine Negative (Negative); pH Urine 6.5 (4.5-7.5)
[2023-01-08 18:22] LABS: Amorphous Sediment Urine Present (None Prsent); WBC Urine >30 /hpf (0-5)
[2023-01-08 18:23] LABS: Bacteria Urine 2+ (Negative); Epithelial Cell Urine 0-5 /lpf (0-5); Hyaline Casts Urine 0-5 /lpf (0-5); RBC Urine 0-4 /hpf (0-4)
--- NOTE | 2023-01-08 18:32 | Hospitalist Progress Note ---
Date of Service January 08, 2023 Assessment & Plan (1) Acute pancreatitis: (2) Nausea and vomiting: Plan: Acute gallstone pancreatitis-POA Acute cholangitis Pancreatic pseudocyst --CT ABD/:Peripancreatic fat stranding is seen concerning for pancreatitis. Prominence of the gallbladder may be reactive or less likely may represent acute cholecystitis. Nonobstructive nephrolithiasis. --Gall Bladder USD:The gallbladder is distended and full of stones/sludge as detailed above. Findings are suspicious for acute cholecystitis. The pancreas was not well visualized by ultrasound. CT findings remain consistent with pancreatitis. Correlate with clinical and laboratory findings. Hepatic steatosis. Trace perihepatic ascites. --Repeat CT ABD:Peripancreatic stranding is somewhat decreased from prior exam. There is interval increased organization of peripancreatic fluid collections compatible with acute peripancreatic collection. Likely significant remnant gallbladder noted in this patient status post cholecystectomy. Percutaneous drainage catheter is again seen, a small amount of fluid in subcutaneous gas is noted along the soft tissue tract. Bilateral nephrolithiasis without evidence of obstruction. --S/p Lap chol and ERCPwith sphincterotomy and balloon sweeping of the bile duct for stones and puswith stent placement on 12/10/22 LFT normalized, Lipase improved Appreciate distillery worker general, surgery input poor oral intake Needs repeat CT in 3 to 4 weeks Needs follow-up with surgery upon discharge Will need repeat ERCP in 2 months for stent removal Plan to leave the drain until likely after stent removal/for least 4 to 6 weeks Tolerating diet, oral intake remains poor Rehab when accepted Appetite improving Septic shock Secondary to above IV pressors discontinued Blood culture, urine culture, fungal culture are negative Completed IV Zosyn course Caspofungin discontinued on 12/26 since patient completed 7 days course Blood and urine culture were negative MIMI drain fluid culture negative Acute respiratory failure with hypoxia Likely from dependent atelectasis Continue to encourage incentive spirometry and flutter Weaned off of supplemental oxygen Saturating well on room air Paroxysmal Afib Episodes of Afib RVR during hospitalization ECHO showed normal LV wall function. EF 65 to 70 % Cardiology consulted Initially No anticoagulant considering comorbidities: severe pancreatitis/risk of hemorrhagic pancreatitis, recent surgery Continue metoprolol and amiodarone PO , metoprolol dose increased Cardiology following Monitor and replace electrolytes as needed Started on Eliquis for anticoagulation--no recurrence of bleeding SAMMY Ischemic ATN multifactorial Temporarily was dialyzed during hospital stay Cr slowly improving Monitor I's and O's, daily BMP, urine output Appreciate nephrology input Follow-up Avoid nephrotoxic agents as able TDC removed on 01/05/23 Cr improved to 1.8 today No plan to resume losartan upon discharge Avoid NSAIDs Needs follow-up with nephrology in 2 to 4 weeks upon discharge Suspected Vaginal bleeding Possible related to urethral trauma from the catheter. Hb stable while on Eliquis Appreciate MEDICAL TRANSCRIBER Input Monitor CBC Generalized weakness Continue PT/OT eval Fall precaution Rehab as able Prediabetes Recent Hba1c 6.1 on 12/10/22 Continue monitor BS Hypertension Continue to hold losartan due to SAMMY continue Metoprolol Adjust meds as needed Hyperthyroidism Continue Methimazole Anxiety Continue Sertraline H/O MS Follow-up as outpatient DVT Px: Eliquis Code status Full code Disposition Rehab when accepted Admission and Anticipated Discharge Date Admission Date: December 09, 2022 Subjective Patient is seen and examined at bedside Appetite better as per family Patient offers no new complaints Waiting for rehab placement Denies any chest pain, dyspnea, dizziness, nausea, abdominal pain Review of Systems Review of Systems: All systems reviewed & are unremarkable except as noted in Subjective Physical Exam Physical Exam: Physical Exam: Vitals signs as noted above General Appearance:Obese, no apparent distress Head: normocephalic, Atraumatic Eyes: normal inspection, EOMI Neck: supple, Trachea midline Respiratory/Chest: Decreased breath sounds, CTA, No accessory muscle use Cardiovascular: S1, S2, No murmur Abdomen/GI:Soft, Non tender, + drain, surgical scar, bowel sounds present Extremities/Musculoskeletal:normal inspection, Pedal edema Neurologic/Psych:AAOX2, grossly no focal neurological deficits, + forgetful Skin: normal color, warm Results & Data Results & Data Vital Signs (Past 12 Hours) Vital Signs Temp Pulse Pulse Resp BP BP Pulse Ox 01/08/23 16:48 36.5 C 76 18 143/81 H 95 01/08/23 15:56 75 01/08/23 12:29 36.6 C 75 17 134/77 96 01/08/23 08:00 01/08/23 07:00 76 01/08/23 07:13 36.6 C 74 18 135/74 94 O2 Del Method 01/08/23 16:48 Room Air 01/08/23 15:56 01/08/23 12:29 Room Air 01/08/23 08:00 Room Air 01/08/23 07:00 01/08/23 07:13 Room Air (1) Acute pancreatitis Acute pancreatitis complication: unspecified Pancreatitis type: unspecified pancreatitis type Qualified Code(s): K85.90 - Acute pancreatitis without necrosis or infection, unspecified (2) Nausea and vomiting Vomiting type: unspecified Qualified Code(s): R11.2 - Nausea with vomiting, unspecified
[2023-01-08] MEDS: CETIRIZINE HCL 10 MG TABLET PO SCH (20:21)
[2023-01-08] MEDS ORDERED: MAGNESIUM SULFATE / D5W 1 GM/100 ML BAG IV ONE (22:38)
[2023-01-08] MEDS ORDERED: POTASSIUM CHLORIDE PWD 20 MEQ PACK PO STA (22:38)
[2023-01-08 23:03] LABS: Magnesium 1.9 mg/dl (1.7-2.4)
[2023-01-09] MEDS: CALCIUM CARBONATE 1,250 MG/5 ML UDC PO SCH ×2 (08:34→21:19)
[2023-01-09] MEDS: AMIODARONE 200 MG TAB PO SCH ×2 (08:34→21:18)
[2023-01-09] MEDS: APIXABAN 5 MG TABLET PO SCH ×2 (08:34→21:19)
[2023-01-09] MEDS: METOPROLOL SUCC 50MG EXT REL TAB PO SCH ×2 (08:34→21:20)
[2023-01-09] MEDS: MAGNESIUM OXIDE 400 MG TAB PO SCH ×2 (08:35→21:20)
[2023-01-09] MEDS: DOCUSATE SODIUM/SENNA 50/8.6MG TAB PO SCH ×2 (08:35→21:19)
[2023-01-09] MEDS: FLUTICASONE PROPIONATE NA SPR 16 GM BTL NAE SCH (08:35)
--- NOTE | 2023-01-09 09:16 | Nephrology Progress Note ---
Date of Service January 09, 2023 Assessment & Plan Admission and Anticipated Discharge Date Admission Date: December 09, 2022 Subjective Assessment & Plan (1) SAMMY (acute kidney injury): Plan: further improving SAMMY baseline creatinine 0.8 --dialysis dependent oligoanuric stage 3 SAMMY ischemic ATN from sepsis from pancreatitis/cholecystitis, then compounded by poor renal perfusion w/ pAF and hypotension for several days though this instability resolved by December 13 for the most part. ATN did not resolve/worsened w/ ongoing sepsis; first HD 12/18; TDC on 12/22; TDC removed 4/7 1600 ml urine and now creat down to 1.8. NEPHROLOGY DISCHARGE RECOMMENDATIONS recommend removing catalan and do voiding trial. Can be done at the rehab hospital also Reasonable for d/c from nephro standpoint -hospital discharge appointment in 2-4 wks check BMP at facility q Mon, Thurs > call nephro if concerns -no nsaids -do not resume OP losartan at d/c -permissive HTN for now > SBP goal in 130-140s -no need for renal diet Subjective Tired and weak. no pain, no n/v, no sob. lot of urine Review of Systems Review of Systems: All systems reviewed & are unremarkable except as noted in Subjective Physical Exam Constitutional: well developed, well nourished, + frail appearing and cooperative; no acute distress Eyes: EOM intact bilaterally ENMT: Ears: no external ear abnormality Nose: no external nose abnormality Mouth: + dry oral mucous membranes Neck: no nuchal rigidity Respiratory: normal respiratory effort and + paradoxical thoraco-abdominal movement; no respiratory distress and no cough Auscultation: + diminished lung sounds (markedly) Cardiovascular: Rate/Rhythm: regular rate and regular rhythm Extremities: + edema (Trace bilaterally) Gastrointestinal (Abdomen): Inspection/Auscultation: normal bowel sounds (RUQ drain still present); + abdomen abnormal to inspection (Right upper quadrant drain) Percussion/Palpation: abdomen soft; abdomen nontender Musculoskeletal: Extremities: 1+ edema Skin: no rashes, warm and dry Psychiatric: Orientation: alert, oriented x 3, oriented to person and cooperative Results & Data Vital Signs (Past 12 Hours) Vital Signs Temp Pulse Pulse Resp BP BP Pulse Ox 01/09/23 08:05 01/09/23 07:06 36.6 C 69 18 119/75 94 01/08/23 23:00 80 04/11/23 03:00 36.6 C 97 H 18 108/68 97 01/08/23 23:31 36.9 C 75 16 120/74 94 O2 Del Method 01/09/23 08:05 Room Air 01/09/23 07:06 Room Air 01/08/23 23:00 01/09/23 03:00 Room Air 01/08/23 23:31 Room Air
[2023-01-09] MEDS: methIMAzole 5 MG TABLET PO SCH (09:46)
[2023-01-09] MEDS: SERTRALINE HCL 50 MG TABLET PO SCH (09:46)
[2023-01-09] MEDS ORDERED: cefTRIAXone SODIUM 1,000 MG in DEXTROSE 5% AD-VAN 50 ML IV SCH (15:45)
[2023-01-09] MEDS ORDERED: cefTRIAXone SODIUM 2,000 MG in DEXTROSE 5% 50 ML IV SCH (15:45)
--- NOTE | 2023-01-09 17:43 | Hospitalist Progress Note ---
Date of Service January 09, 2023 Assessment & Plan (1) Acute pancreatitis: (2) Nausea and vomiting: Plan: Acute gallstone pancreatitis-POA Acute cholangitis Pancreatic pseudocyst --CT ABD/:Peripancreatic fat stranding is seen concerning for pancreatitis. Prominence of the gallbladder may be reactive or less likely may represent acute cholecystitis. Nonobstructive nephrolithiasis. --Gall Bladder USD:The gallbladder is distended and full of stones/sludge as detailed above. Findings are suspicious for acute cholecystitis. The pancreas was not well visualized by ultrasound. CT findings remain consistent with pancreatitis. Correlate with clinical and laboratory findings. Hepatic steatosis. Trace perihepatic ascites. --Repeat CT ABD:Peripancreatic stranding is somewhat decreased from prior exam. There is interval increased organization of peripancreatic fluid collections compatible with acute peripancreatic collection. Likely significant remnant gallbladder noted in this patient status post cholecystectomy. Percutaneous drainage catheter is again seen, a small amount of fluid in subcutaneous gas is noted along the soft tissue tract. Bilateral nephrolithiasis without evidence of obstruction. --S/p Lap chol and ERCPwith sphincterotomy and balloon sweeping of the bile duct for stones and puswith stent placement on 12/10/22 LFT normalized, Lipase improved Appreciate gold leaf printer, surgery input poor oral intake Needs repeat CT in 3 to 4 weeks Needs follow-up with surgery upon discharge Will need repeat ERCP in 2 months for stent removal Plan to leave the drain until likely after stent removal/for least 4 to 6 weeks Tolerating diet, oral intake remains poor Appetite improving Was denied by insurance for acute rehab Will need SNF placement UTI Likely secondary to Tomlinson catheter Urine culture growing gram-negative bacilli Empirically started on Rocephin Septic shock Secondary to above IV pressors discontinued Blood culture, fungal culture are negative Completed IV Zosyn course Caspofungin discontinued on 12/26 since patient completed 7 days course Blood and urine culture were negative MIMI drain fluid culture negative Acute respiratory failure with hypoxia Likely from dependent atelectasis Continue to encourage incentive spirometry and flutter Weaned off of supplemental oxygen Saturating well on room air Paroxysmal Afib Episodes of Afib RVR during hospitalization ECHO showed normal LV wall function. EF 65 to 70 % Cardiology consulted Initially No anticoagulant considering comorbidities: severe pancreatitis/risk of hemorrhagic pancreatitis, recent surgery Continue metoprolol and amiodarone PO , metoprolol dose increased Cardiology following Monitor and replace electrolytes as needed Started on Eliquis for anticoagulation--no recurrence of bleeding SAMMY Ischemic ATN multifactorial Temporarily was dialyzed during hospital stay Cr slowly improving Monitor I's and O's, daily BMP, urine output Appreciate nephrology input Follow-up Avoid nephrotoxic agents as able TDC removed on 01/05/23 Cr improved to 1.8 today No plan to resume losartan upon discharge Avoid NSAIDs Needs follow-up with nephrology in 2 to 4 weeks upon discharge Suspected Vaginal bleeding Possible related to urethral trauma from the catheter. Hb stable while on Eliquis Appreciate ADULT CAREGIVER Input Monitor CBC Generalized weakness Continue PT/OT eval Fall precaution Rehab as able Prediabetes Recent Hba1c 6.1 on 12/10/22 Continue monitor BS Hypertension Continue to hold losartan due to SAMMY continue Metoprolol Adjust meds as needed Hyperthyroidism Continue Methimazole Anxiety Continue Sertraline H/O MS Follow-up as outpatient DVT Px: Eliquis Code status Full code Disposition SNF as able Admission and Anticipated Discharge Date Admission Date: December 09, 2022 Subjective Patient is seen and examined at bedside Prefers Tomlinson catheter be removed Discussed with patient's family at bedside Offers no new complaints Urine culture growing gram-negative bacilli Appetite poor Denies any chest pain, dyspnea, dizziness, nausea, abdominal pain Review of Systems Review of Systems: All systems reviewed & are unremarkable except as noted in Subjective Physical Exam Physical Exam: Physical Exam: Vitals signs as noted above General Appearance:Obese, no apparent distress Head: normocephalic, Atraumatic Eyes: normal inspection, EOMI Neck: supple, Trachea midline Respiratory/Chest: Decreased breath sounds, CTA, No accessory muscle use Cardiovascular: S1, S2, No murmur Abdomen/GI:Soft, Non tender, + drain, surgical scar, bowel sounds present Extremities/Musculoskeletal:normal inspection, Pedal edema Neurologic/Psych:AAOX2, grossly no focal neurological deficits, + forgetful Skin: normal color, warm Results & Data Results & Data Vital Signs (Past 12 Hours) Vital Signs Temp Pulse Resp BP BP Pulse Ox O2 Del Method 01/09/23 15:13 36.7 C 72 18 137/77 96 Room Air 01/09/23 12:05 36.4 C L 74 18 136/78 94 Room Air 01/09/23 08:05 Room Air 01/09/23 07:06 36.6 C 69 18 119/75 94 Room Air Laboratory Results Urine 01/08/23 Range/Units 17:30 Urine Color Yellow Urine Appearance Cloudy A (Clear) Urine pH 6.5 (4.5-7.5) Ur Specific [place] 1.010 (1.000-1.030) Urine Protein 1+ H (Negative) Urine Glucose (UA) Negative (Negative) (1) Acute pancreatitis Acute pancreatitis complication: unspecified Pancreatitis type: unspecified pancreatitis type Qualified Code(s): K85.90 - Acute pancreatitis without necrosis or infection, unspecified (2) Nausea and vomiting Vomiting type: unspecified Qualified Code(s): R11.2 - Nausea with vomiting, unspecified
[2023-01-10 06:25] LABS: Hematocrit (blood only) 32.5 % (37.0-47.0); Hemoglobin 10.4 g/dl (12.0-16.0); Mean Corpuscular Volume 87.4 fL (80.0-100.0); Mean Platelet Volume 9.6 fL (9.4-12.4); Platelet Count 391 K/uL (130-400); RDW Coefficient of Variation 14.2 % (11.5-14.5); RDW Standard Deviation 45.1 fL (36.4-46.3); Red Blood Count 3.72 M/uL (4.20-5.40); White Blood Count 16.72 K/ul (4.8-10.8)
[2023-01-10 06:32] LABS: BUN Creatinine Ratio 17.3 (10-20); Calcium 8.5 mg/dl (8.6-10.3); Creatinine Clr Calc Pharmacy 28.1 ml/min; Est GFR (African American) 28.5 ml/min; Est GFR (Non-African American) 24.6 ml/min; Potassium 3.7 mmol/L (3.5-5.1)
[2023-01-10] MEDS: SERTRALINE HCL 50 MG TABLET PO SCH (08:03)
[2023-01-10] MEDS: DOCUSATE SODIUM/SENNA 50/8.6MG TAB PO SCH ×2 (08:03→21:35)
[2023-01-10] MEDS: METOPROLOL SUCC 50MG EXT REL TAB PO SCH ×2 (08:03→21:35)
[2023-01-10] MEDS: AMIODARONE 200 MG TAB PO SCH ×2 (08:03→21:35)
[2023-01-10] MEDS: methIMAzole 5 MG TABLET PO SCH (08:03)
[2023-01-10] MEDS: CALCIUM CARBONATE 1,250 MG/5 ML UDC PO SCH ×2 (08:03→21:34)
[2023-01-10] MEDS: FLUTICASONE PROPIONATE NA SPR 16 GM BTL NAE SCH (08:03)
[2023-01-10] MEDS: MAGNESIUM OXIDE 400 MG TAB PO SCH ×2 (08:03→21:36)
[2023-01-10] MEDS: APIXABAN 5 MG TABLET PO SCH ×2 (08:03→21:35)
[2023-01-10] MEDS ORDERED: SODIUM CHLORIDE 0.9% 1000ML 1,000 ML IV ONE (09:41)
[2023-01-10] MEDS ORDERED: levoFLOXacin 750 MG TAB PO SCH (10:00)
[2023-01-10] MEDS: levoFLOXacin 750 MG TAB PO SCH (10:48)
--- NOTE | 2023-01-10 12:02 | Hospitalist Progress Note ---
Date of Service January 10, 2023 Assessment & Plan (1) Acute pancreatitis: (2) Nausea and vomiting: Plan: Acute gallstone pancreatitis-POA Acute cholangitis Pancreatic pseudocyst --CT ABD/:Peripancreatic fat stranding is seen concerning for pancreatitis. Prominence of the gallbladder may be reactive or less likely may represent acute cholecystitis. Nonobstructive nephrolithiasis. --Gall Bladder USD:The gallbladder is distended and full of stones/sludge as detailed above. Findings are suspicious for acute cholecystitis. The pancreas was not well visualized by ultrasound. CT findings remain consistent with pancreatitis. Correlate with clinical and laboratory findings. Hepatic steatosis. Trace perihepatic ascites. --Repeat CT ABD:Peripancreatic stranding is somewhat decreased from prior exam. There is interval increased organization of peripancreatic fluid collections compatible with acute peripancreatic collection. Likely significant remnant gallbladder noted in this patient status post cholecystectomy. Percutaneous drainage catheter is again seen, a small amount of fluid in subcutaneous gas is noted along the soft tissue tract. Bilateral nephrolithiasis without evidence of obstruction. --S/p Lap chol and ERCPwith sphincterotomy and balloon sweeping of the bile duct for stones and puswith stent placement on 12/10/22 ---As per Surgery :She was taken to the operating room on 12/10/2022 where she underwent ERCP with stent placement and also attempted laparoscopic cholecystectomy-I performed a subtotal laparoscopic cholecystectomy removing the majority of the gallbladder leaving some back wall and a large drain Patient had very severe scar tissue at the tima hepatis-I felt she was a very poor candidate for an open operation. Postoperatively she did have a bile leak and has a large #19 round Yosef-Flower drain in place with subsequent decrease in the drain output She also had very severe adhesions of the omentum and colon to the gallbladder and liver. --LFT normalized, Lipase improved Appreciate mold machine operator, surgery input poor oral intake Needs repeat CT in 3 to 4 weeks for evaluation of pseudocyst Needs follow-up with surgery upon discharge Will need repeat ERCP in 2 months for stent removal Plan to leave the drain until likely after stent removal/for least 4 to 6 weeks Tolerating diet, oral intake remains poor Appetite slowly improving Was denied by insurance for acute rehab Plan to discharge to SNF when accepted UTI Likely secondary to Tomlinson catheter Tomlinson discontinued Monitor for any retention Urine culture grew--preliminary culture growing Pseudomonas, probable Enterococcus Empirically started on Rocephin>> changed to Levaquin, will add ampicillin for now until sensitivities finalize Septic shock Secondary to above IV pressors discontinued Blood culture, fungal culture are negative Completed IV Zosyn course Caspofungin discontinued on 12/26 since patient completed 7 days course Blood and urine culture were negative MIMI drain fluid culture negative Acute respiratory failure with hypoxia Likely from dependent atelectasis Continue to encourage incentive spirometry and flutter Weaned off of supplemental oxygen Saturating well on room air Paroxysmal Afib Episodes of Afib RVR during hospitalization ECHO showed normal LV wall function. EF 65 to 70 % Cardiology consulted Initially No anticoagulant considering comorbidities: severe pancreatitis/risk of hemorrhagic pancreatitis, recent surgery Continue metoprolol and amiodarone PO , metoprolol dose increased Cardiology following Monitor and replace electrolytes as needed Started on Eliquis for anticoagulation--no recurrence of bleeding SAMMY Ischemic ATN multifactorial Temporarily was dialyzed during hospital stay Cr slowly improving Monitor I's and O's, daily BMP, urine output Appreciate nephrology input Follow-up Avoid nephrotoxic agents as able TDC removed on 01/05/23 No plan to resume losartan upon discharge Avoid NSAIDs Needs follow-up with nephrology in 2 to 4 weeks upon discharge Cr slightly up today to 1.97 Will give gentle IV fluids Suspected Vaginal bleeding Possible related to urethral trauma from the catheter. Hb stable while on Eliquis Appreciate HEALTH PROMOTION SPECIALIST Input Monitor CBC Generalized weakness Continue PT/OT eval Fall precaution Rehab as able Prediabetes Recent Hba1c 6.1 on 12/10/22 Continue monitor BS Hypertension Continue to hold losartan due to SAMMY continue Metoprolol Adjust meds as needed Hyperthyroidism Continue Methimazole Anxiety Continue Sertraline H/O MS Follow-up as outpatient DVT Px: Eliquis Code status Full code Disposition SNF when accepted Admission and Anticipated Discharge Date Admission Date: December 09, 2022 Subjective Patient is seen and examined at bedside Offers no new complaints Denies any dysuria, hematuria Afebrile today Leukocytosis on labs Discontinued Tomlinson yesterday, voiding without any issues Urine culture grew pansensitive Pseudomonas Also denies any chest pain, dyspnea, dizziness, nausea, abdominal pain Review of Systems Review of Systems: All systems reviewed & are unremarkable except as noted in Subjective Physical Exam Physical Exam: Physical Exam: Vitals signs as noted above General Appearance:Obese, no apparent distress Head: normocephalic, Atraumatic Eyes: normal inspection, EOMI Neck: supple, Trachea midline Respiratory/Chest: Decreased breath sounds, CTA, No accessory muscle use Cardiovascular: S1, S2, No murmur Abdomen/GI:Soft, Non tender, + drain, surgical scar, bowel sounds present Extremities/Musculoskeletal:normal inspection, Pedal edema Neurologic/Psych:AAOX2, grossly no focal neurological deficits, + forgetful Skin: normal color, warm Results & Data Results & Data Vital Signs (Past 12 Hours) Vital Signs Temp Pulse Resp BP Pulse Ox O2 Del Method 01/10/23 07:37 36.7 C 78 19 125/75 94 Room Air 01/10/23 03:50 36.7 C 78 16 144/77 H 96 Room Air Laboratory Results Short CBC 01/10/23 Range/Units 05:51 WBC 16.72 H (4.8-10.8) K/ul Hgb 10.4 L (12.0-16.0) g/dl Hct 32.5 L (37.0-47.0) % Plt Count 391 (130-400) K/uL BMP 01/10/23 05:51 Sodium 140 Potassium 3.7 Chloride 106 Carbon Dioxide 26 BUN 34 H Creatinine 1.97 H Glucose 124 H Calcium 8.5 L (1) Acute pancreatitis Acute pancreatitis complication: unspecified Pancreatitis type: unspecified pancreatitis type Qualified Code(s): K85.90 - Acute pancreatitis without necrosis or infection, unspecified (2) Nausea and vomiting Vomiting type: unspecified Qualified Code(s): R11.2 - Nausea with vomiting, unspecified
[2023-01-10] MEDS: AMPICILLIN 2,000 MG in SODIUM CHLOR 0.9% AD-VAN 100 ML IV SCH ×2 (13:22→23:23)
[2023-01-10] MEDS: CETIRIZINE HCL 10 MG TABLET PO SCH (21:36)
[2023-01-11 06:08] LABS: BUN Creatinine Ratio 18.7 (10-20); Calcium 8.2 mg/dl (8.6-10.3); Creatinine Clr Calc Pharmacy 32.3 ml/min; Est GFR (African American) 33.8 ml/min; Est GFR (Non-African American) 29.2 ml/min; Magnesium 1.7 mg/dl (1.7-2.4); Potassium 3.5 mmol/L (3.5-5.1)
[2023-01-11 06:09] LABS: Basophils # (auto) 0.14 K/uL (0-0.2); Basophils % (auto) 0.9 %; Eosinophils # (auto) 0.72 K/uL (0-0.50); Eosinophils % (auto) 4.6 %; Hematocrit (blood only) 30.7 % (37.0-47.0); Hemoglobin 9.8 g/dl (12.0-16.0); Immature Granulocytes # (auto) 0.12 K/uL (0.01-0.20); Immature Granulocytes % (auto) 0.8 %; Lymphocytes # (auto) 4.31 K/uL (1.2-3.4); Lymphocytes % (auto) 27.8 %; Mean Corpuscular Hemoglobin 28.3 pg (25.0-34.0); Mean Corpuscular Hgb Conc 31.9 g/dL (32.0-36.0); Mean Corpuscular Volume 88.7 fL (80.0-100.0); Mean Platelet Volume 9.4 fL (9.4-12.4); Monocytes # (auto) 1.56 K/uL (0.11-0.59); Monocytes % (auto) 10.1 %; Neutrophils # (auto) 8.66 K/uL (1.40-6.50); Neutrophils % (auto) 55.8 %; Platelet Count 360 K/uL (130-400); RDW Coefficient of Variation 14.4 % (11.5-14.5); RDW Standard Deviation 46.5 fL (36.4-46.3); Red Blood Count 3.46 M/uL (4.20-5.40); White Blood Count 15.51 K/ul (4.8-10.8)
[2023-01-11] MEDS: AMIODARONE 200 MG TAB PO SCH ×2 (08:34→20:33)
[2023-01-11] MEDS: DOCUSATE SODIUM/SENNA 50/8.6MG TAB PO SCH ×2 (08:35→20:14)
[2023-01-11] MEDS: CALCIUM CARBONATE 1,250 MG/5 ML UDC PO SCH ×2 (08:35→20:32)
[2023-01-11] MEDS: APIXABAN 5 MG TABLET PO SCH ×2 (08:35→20:33)
[2023-01-11] MEDS: methIMAzole 5 MG TABLET PO SCH (08:36)
[2023-01-11] MEDS: MAGNESIUM OXIDE 400 MG TAB PO SCH ×2 (08:36→20:33)
[2023-01-11] MEDS: METOPROLOL SUCC 50MG EXT REL TAB PO SCH ×2 (08:36→20:32)
[2023-01-11] MEDS: FLUTICASONE PROPIONATE NA SPR 16 GM BTL NAE SCH ×2 (08:36→08:44)
[2023-01-11] MEDS: SERTRALINE HCL 50 MG TABLET PO SCH (08:36)
[2023-01-11] MEDS: AMPICILLIN 2,000 MG in SODIUM CHLOR 0.9% AD-VAN 100 ML IV SCH ×2 (11:59→19:56)
--- NOTE | 2023-01-11 17:56 | Hospitalist Progress Note ---
Date of Service January 11, 2023 Assessment & Plan (1) Acute pancreatitis: (2) Nausea and vomiting: Plan: Acute gallstone pancreatitis-POA Acute cholangitis Pancreatic pseudocyst --CT ABD/:Peripancreatic fat stranding is seen concerning for pancreatitis. Prominence of the gallbladder may be reactive or less likely may represent acute cholecystitis. Nonobstructive nephrolithiasis. --Gall Bladder USD:The gallbladder is distended and full of stones/sludge as detailed above. Findings are suspicious for acute cholecystitis. The pancreas was not well visualized by ultrasound. CT findings remain consistent with pancreatitis. Correlate with clinical and laboratory findings. Hepatic steatosis. Trace perihepatic ascites. --Repeat CT ABD:Peripancreatic stranding is somewhat decreased from prior exam. There is interval increased organization of peripancreatic fluid collections compatible with acute peripancreatic collection. Likely significant remnant gallbladder noted in this patient status post cholecystectomy. Percutaneous drainage catheter is again seen, a small amount of fluid in subcutaneous gas is noted along the soft tissue tract. Bilateral nephrolithiasis without evidence of obstruction. --S/p Lap chol and ERCPwith sphincterotomy and balloon sweeping of the bile duct for stones and puswith stent placement on 12/10/22 ---As per Surgery :She was taken to the operating room on 12/10/2022 where she underwent ERCP with stent placement and also attempted laparoscopic cholecystectomy-I performed a subtotal laparoscopic cholecystectomy removing the majority of the gallbladder leaving some back wall and a large drain Patient had very severe scar tissue at the tima hepatis-I felt she was a very poor candidate for an open operation. Postoperatively she did have a bile leak and has a large #19 round Yosef-Flower drain in place with subsequent decrease in the drain output She also had very severe adhesions of the omentum and colon to the gallbladder and liver. --LFT normalized, Lipase improved Appreciate sys dir, surgery input poor oral intake Needs repeat CT in 3 to 4 weeks for evaluation of pseudocyst Needs follow-up with surgery upon discharge Will need repeat ERCP outpatient for stent removal Plan to leave the drain until likely after stent removal/for least 4 to 6 weeks Tolerating diet, oral intake remains poor Appetite slowly improving Was denied by insurance for acute rehab Plan to discharge to SNF when accepted UTI Likely secondary to Tomlinson catheter Tomlinson discontinued Monitor for any retention Urine culture grew--preliminary culture growing Pseudomonas, probable Enterococcus Empirically started on Rocephin>> changed to Levaquin + ampicillin for now until sensitivities finalize Septic shock Secondary to above IV pressors discontinued Blood culture, fungal culture are negative Completed IV Zosyn course Caspofungin discontinued on 12/26 since patient completed 7 days course Blood and urine culture were negative MIMI drain fluid culture negative Acute respiratory failure with hypoxia Likely from dependent atelectasis Continue to encourage incentive spirometry and flutter Weaned off of supplemental oxygen Saturating well on room air Paroxysmal Afib Episodes of Afib RVR during hospitalization ECHO showed normal LV wall function. EF 65 to 70 % Cardiology consulted Initially no anticoagulant considering comorbidities: severe pancreatitis/risk of hemorrhagic pancreatitis, recent surgery Currently on metoprolol and amiodarone PO Cardiology following Monitor and replace electrolytes as needed Currently on Eliquis for anticoagulation SAMMY Ischemic ATN multifactorial Temporarily was dialyzed during hospital stay Cr slowly improving Monitor I's and O's, daily BMP, urine output Appreciate nephrology input Avoid nephrotoxic agents as able Temporary dialysis catheter removed on 01/05/23 No plan to resume losartan upon discharge Avoid NSAIDs Needs follow-up with nephrology in 2 to 4 weeks upon discharge Cr is 1.7 today Suspected Vaginal bleeding Possible related to urethral trauma from the catheter. Hb stable while on Eliquis Appreciate PRIMER SUPERVISOR Input Monitor CBC Generalized weakness Continue PT/OT eval Fall precaution Rehab as able Prediabetes Recent Hba1c 6.1 on 12/10/22 Continue monitor BS Hypertension Continue to hold losartan due to SAMMY even on discharge Continue Metoprolol Adjust meds as needed Hyperthyroidism Continue Methimazole Anxiety Continue Sertraline H/O MS Follow-up as outpatient DVT Px: Eliquis Code status Full code Disposition SNF when accepted hopefully tomorrow I spent a total of 40 minutes coordinating, documenting and providing care for this patient excluding time spent in performance of separately billed services Admission and Anticipated Discharge Date Admission Date: December 09, 2022 Subjective Patient seen and examined Reports no dysuria today Reports poor appetite Denied any nausea, vomiting, abd pain Denied fever, chills Denied cough, shortness of breath, chest pain Physical Exam Constitutional: no acute distress Eyes: PERRL, conjunctivae normal, anicteric sclerae ENMT: external ear and nose normal, oropharynx normal Respiratory: normal respiratory effort, lungs clear to auscultation Cardiovascular: Rate/Rhythm: regular rate and regular rhythm S1 S2 Gastrointestinal (Abdomen): normal bowel sounds, soft, nontender, no hepatosplenomegaly RUQ drain in situ Musculoskeletal: Trace pedal edema Neurologic: PERRL, EOMI, accommodation nl, no face palsy, no dysarthria Psychiatric: Orientation: alert, oriented to person, oriented to place, oriented to time and cooperative Results & Data Results & Data Vital Signs (Past 12 Hours) Vital Signs Temp Pulse Resp BP Pulse Ox O2 Del Method 01/11/23 16:20 36.6 C 75 19 141/79 H 96 Room Air 01/11/23 11:34 36.6 C 80 19 151/73 H 93 Room Air 01/11/23 08:16 36.5 C 86 19 126/76 95 Room Air Laboratory Results Abnormal lab results 01/11/23 01/11/23 Range/Units 05:20 05:20 WBC 15.51 H (4.8-10.8) K/ul RBC 3.46 L (4.20-5.40) M/uL Hgb 9.8 L (12.0-16.0) g/dl Hct 30.7 L (37.0-47.0) % MCHC 31.9 L (32.0-36.0) g/dL RDW Std Deviation 46.5 H (36.4-46.3) fL Neut # (Auto) 8.66 H (1.40-6.50) K/uL Lymph # (Auto) 4.31 H (1.2-3.4) K/uL Trigg # (Auto) 1.56 H (0.11-0.59) K/uL Eos # (Auto) 0.72 H (0-0.50) K/uL BUN 32 H (6-23) mg/dl Creatinine 1.71 H (0.6-1.2) mg/dl Glucose 118 H (70-99(Fasting)) mg/dl Calcium 8.2 L (8.6-10.3) mg/dl (1) Acute pancreatitis Acute pancreatitis complication: unspecified Pancreatitis type: unspecified pancreatitis type Qualified Code(s): K85.90 - Acute pancreatitis without necrosis or infection, unspecified (2) Nausea and vomiting Vomiting type: unspecified Qualified Code(s): R11.2 - Nausea with vomiting, unspecified
[2023-01-11] MEDS: ACETAMINOPHEN 325 MG TAB PO PRN (23:05)
[2023-01-11] MEDS: MELATONIN 3 MG TAB PO PRN (23:05)
[2023-01-12] MEDS: AMPICILLIN 2,000 MG in SODIUM CHLOR 0.9% AD-VAN 100 ML IV SCH ×2 (03:22→12:12)
[2023-01-12 06:48] LABS: Hematocrit (blood only) 29.8 % (37.0-47.0); Hemoglobin 9.6 g/dl (12.0-16.0); Mean Corpuscular Hemoglobin 28.7 pg (25.0-34.0); Mean Corpuscular Hgb Conc 32.2 g/dL (32.0-36.0); Mean Platelet Volume 9.7 fL (9.4-12.4); Platelet Count 334 K/uL (130-400); RDW Coefficient of Variation 14.4 % (11.5-14.5); RDW Standard Deviation 46.5 fL (36.4-46.3); Red Blood Count 3.35 M/uL (4.20-5.40); White Blood Count 16.93 K/ul (4.8-10.8)
[2023-01-12 07:11] LABS: Calcium 8.3 mg/dl (8.6-10.3); Potassium 3.7 mmol/L (3.5-5.1)
[2023-01-12 07:17] LABS: BUN Creatinine Ratio 16.8 (10-20); Creatinine Clr Calc Pharmacy 30.9 ml/min; Est GFR (Non-African American) 27.6 ml/min
[2023-01-12] MEDS: MAGNESIUM OXIDE 400 MG TAB PO SCH (08:22)
[2023-01-12] MEDS: AMIODARONE 200 MG TAB PO SCH (08:22)
[2023-01-12] MEDS: METOPROLOL SUCC 50MG EXT REL TAB PO SCH (08:22)
[2023-01-12] MEDS: CALCIUM CARBONATE 1,250 MG/5 ML UDC PO SCH (08:22)
[2023-01-12] MEDS: APIXABAN 5 MG TABLET PO SCH (08:22)
[2023-01-12] MEDS: SERTRALINE HCL 50 MG TABLET PO SCH (08:23)
[2023-01-12] MEDS: methIMAzole 5 MG TABLET PO SCH (08:23)
[2023-01-12] MEDS: FLUTICASONE PROPIONATE NA SPR 16 GM BTL NAE SCH (08:23)
[2023-01-12] MEDS: DOCUSATE SODIUM/SENNA 50/8.6MG TAB PO SCH (11:43)
[2023-01-12] MEDS: levoFLOXacin 750 MG TAB PO SCH (12:12)
--- NOTE | 2023-01-12 13:27 | Discharge Summary ---
Date of Service January 12, 2023 Admission HPI Per Admitting Provider 72-year-old female with MPH of obesity, HTN, Anxiety presents to the emergency department with complaint of abdomen and lower back pain. Pt said that her symptoms started this morning associated with nausea and vomiting. She said that she had 2 episodes of vomiting mucus like. She said that she had loose morning stools as well. She said that her pain is mostly in her back with intensity 8 out 10. She denies any alcohol used or similar pain in the past. She denies any fever, chills, palpitation, SOB or diaphoresis. Admission Exam Per Admitting Provider General- No acute distress Head- atraumatic Eyes- PERRL, EOMI, ENT- oropharynx clear Neck- supple, no JVD Lungs- clear to auscultation Heart- regular rhythm; no murmur Abdomen- normal bowel sounds, soft, +tender Extremities- no calf tenderness Neuro- alert, oriented x 3; PERRL, EOMI; no facial palsy; no dysarthria Skin- warm & dry Principal Diagnosis Acute gallstone pancreatitis Acute cholangitis Pancreatic pseudocyst Urinary tract infection Septic shock Acute respiratory failure with hypoxia Paroxysmal atrial fibrillation Acute kidney injury Prediabetes Hyperthyroidism Postoperatively biliary leak Discharge Exam Constitutional no acute distress Eyes PERRL, conjunctivae normal, anicteric sclerae ENMT external ear and nose normal, oropharynx normal Respiratory normal respiratory effort, lungs clear to auscultation Cardiovascular Rate/Rhythm: regular rate and regular rhythm S1 S2 Gastrointestinal (Abdomen) normal bowel sounds, soft, nontender, no hepatosplenomegaly Musculoskeletal Trace pedal edema Neurologic PERRL, EOMI, accommodation nl, no face palsy, no dysarthria Psychiatric Orientation: alert, oriented to person, oriented to place, oriented to time and cooperative Discharge Data Allergies Allergy/AdvReac Type Severity Reaction Status Date / Time No Known Allergies Allergy Unverified 04/26/12 15:09 Consultations 12/09/22 16:31 ED Decision to Admit Stat 12/09/22 17:47 Consult General Surgery Routine 12/09/22 21:21 Consult Gastroenterology Routine 12/10/22 21:43 Consult Cardiology Routine 12/12/22 08:59 Consult Nephrology Routine 12/18/22 09:35 Consult Shipping Manager Routine 12/21/22 16:39 Consult Vascular Surgery Routine 12/23/22 16:15 Consult Gynecology Routine Procedures Performed Operation Date: 01/05/23 12:10 Actual Procedures p Removal of Perm Catheter(Right) - Greg Tamayo MD Ordered Studies 12/09/22 14:22 CT Abd and Pelvis [CT abd pelvis IV con only] Stat 12/09/22 14:42 CT lumbar spine w con Stat 12/09/22 21:21 US abdomen limited Routine 12/10/22 FL ERCP biliary ductal Routine 12/15/22 15:41 CT abdomen wo con Urgent 12/17/22 10:13 CT abd pelvis wo con Routine 12/18/22 10:39 US point of care ultrasound Urgent 12/22/22 09:54 EV cvc insrt tunnel wo prt/biofuels production manager Routine US EV guide vascular access Routine 12/31/22 12:37 CT abd pelvis wo con Urgent Hospital Course (1) Acute pancreatitis: (2) Nausea and vomiting: Acute gallstone pancreatitis-POA Acute cholangitis Pancreatic pseudocyst --CT ABD/:Peripancreatic fat stranding is seen concerning for pancreatitis. Prominence of the gallbladder may be reactive or less likely may represent acute cholecystitis. Nonobstructive nephrolithiasis. --Gall Bladder USD:The gallbladder is distended and full of stones/sludge as detailed above. Findings are suspicious for acute cholecystitis. The pancreas was not well visualized by ultrasound. CT findings remain consistent with pancreatitis. Correlate with clinical and laboratory findings. Hepatic steatosis. Trace perihepatic ascites. --Repeat CT ABD:Peripancreatic stranding is somewhat decreased from prior exam. There is interval increased organization of peripancreatic fluid collections compatible with acute peripancreatic collection. Likely significant remnant gallbladder noted in this patient status post cholecystectomy. Percutaneous drainage catheter is again seen, a small amount of fluid in subcutaneous gas is noted along the soft tissue tract. Bilateral nephrolithiasis without evidence of obstruction. --S/p Lap chol and ERCPwith sphincterotomy and balloon sweeping of the bile duct for stones and puswith stent placement on 12/10/22 ---As per Surgery :She was taken to the operating room on 12/10/2022 where she underwent ERCP with stent placement and also attempted laparoscopic cholecystectomy. Surgeon performed a subtotal laparoscopic cholecystectomy removing the majority of the gallbladder leaving some back wall and a large drain. Patient had very severe scar tissue at the tima hepatis. She was deemed a very poor candidate for an open operation. Postoperatively she did have a bile leak and has a large #19 round Yosef-Flower drain in place with subsequent decrease in the drain output. She also had very severe adhesions of the omentum and colon to the gallbladder and liver. Was managed for septic shock Required pressor for sometime Was treated with IV antibiotics and antifungal Blood cultures and MIMI drain culture were negative Had acute respiratory failure with hypoxia Likely from dependent atelectasis Now resolved. On room air Needs repeat CT in 3 to 4 weeks for evaluation of pseudocyst Needs follow-up with surgery upon discharge Will need repeat ERCP outpatient for stent removal Confirmed with Dr Whittaker who recommends to leave the drain until likely after stent removal/surgery follow up Needs to follow up with Surgeon and GI UTI Likely secondary to Tomlinson catheter Tomlinson discontinued Urine culture grew Pseudomonas, probable Enterococcus both sensitive to levofloxacin Discharged on levofloxacin to complete treatment Paroxysmal Afib Episodes of Afib RVR during hospitalization ECHO showed normal LV wall function. EF 65 to 70 % Was evaluated by Cardiology Started on metoprolol and amiodarone Amiodarone changed to 200mg daily per discussion with Ethnographic Materials Conservator today Continue honey Needs to follow up with Cardiology SAMMY Ischemic ATN multifactorial Temporarily was dialyzed during hospital stay Cr slowly improving Avoid nephrotoxic agents as able Losartan discontinued Avoid NSAIDs Needs follow-up with nephrology in 2 to 4 weeks upon discharge Suspected Vaginal bleeding Possible related to urethral trauma from the catheter. Resoleved Prediabetes Recent Hba1c 6.1 on 12/10/22 Hypertension Continue Metoprolol Losartan discontinued as above Hyperthyroidism Continue Methimazole Anxiety Continue Sertraline H/O MS Follow-up as outpatient Discharged to SNF Total Time Total Time Spent Total Time Spent (In Minutes): 55 Total Time Includes: Examination of the Patient, Discharge Planning, Medication Reconciliation and Communication With Other Providers Discharge Plan Discharge Items Patient Disposition: Transfer Half-Way Fac Reason For Visit: ACUTE PANCREATITIS Discharge Diagnosis: Acute gallstone pancreatitis Acute cholangitis Pancreatic pseudocyst Urinary tract infection Septic shock Acute respiratory failure with hypoxia Paroxysmal atrial fibrillation Acute kidney injury Prediabetes Hyperthyroidism Postoperatively biliary leak Activity: Per Instructions section Activity Comment: light activity for 4 weeks Lifting: No more than 10 pounds Bathing Comment: may shower; no soaking in tubs/pools Sexual Activity: When tolerated Exercise/Sports: Wait until after follow-up appointment Driving/Machine Use: no driving if taking any narcotics for pain Non-emergency contact: Primary Care Provider and Surgeon Call non-emergency contact if: you have any medication questions, your symptoms worsen, your pain is not controlled, you have a fever, your temperature is above 101.5, your wound has increased redness, your wound has increased drainage and your wound pain has increased Follow-up/Referrals: Mark Whittaker MD, FACS [Physician] - Valdez Whitlock MD [Primary Care Provider] - Rainer Perez MD [Surgeon] - (Date & Time 01/24/2023 1:00 PM Provider Rainer Perez MD Department Nephrology, [facility] ) Diet: Carb Consistent or DM2 and Heart Healthy Diet Texture: Easy to Chew Addtl Attending Provider Instructions: Mrs Mayer You were brought into the hospital for abdominal pain. You had a prolonged hospital stay and was managed for the above listed diagnoses. You required dialysis briefly but your kidney function improved. You had laparoscopic cholecystectomy and still has drain in place. Please ensure follow up with Surgical instruction as detailed in Special Instructions. You were started on certain new medications including metoprolol and amiodarone for Atrial fibrillation. You were also started on blood thinner eliquis. You are to take levofloxacin 750mg every 2 days (next dose is 01/14/23) to complete treatment for Urinary Tract infection (Last dose on 01/18/23) Please stop taking Losartan. Please ensure follow up with Cardiology, Gastroenterology, Surgeon, Nephrology within 2-4 weeks. It was a pleasure taking care of you. Addtl Consolidation Accountant Provider Instructions: SPECIAL CARE INSTRUCTIONS: * Cover incisions and change daily for comfort/drainage. * Empty drain 2-3 times per day and record. * Expect some swelling and bruising. Call your doctor if: * Temperature above 101 degrees * Pain not relieved by pain medicine ordered * There is increased drainage or redness from any incision * You have any unanswered questions or concerns [phone]. FOLLOW UP VISIT: If not already scheduled, please call the office for a follow-up visit. OFFICE PHONE NUMBER: Dr. Whittaker Office Pending Studies at Discharge: Yes Stand-Alone Forms: [employer] Skilled Items Patient informed of condition?: Yes DNR: No Discharge Level of Care: Skilled Communicable Disease: No Discharge Prognosis: Stable Lines: None Urinary Catheter: No Medications and DC Order Prescriptions: New metoprolol succinate 50 mg Tablet Extended Release 24 Hr 50 mg PO BID Qty: 60 0RF magnesium oxide 400 mg (241.3 mg magnesium) Tablet 400 mg PO DAILY Qty: 30 0RF Eliquis 5 mg Tablet 5 mg PO BID Qty: 60 0RF polyethylene glycol 3350 [Miralax] 17 gram Powder In Packet 17 g PO DAILY PRN (Reason: constipation) Qty: 14 0RF sennosides-docusate sodium [Senokot-S] 8.6-50 mg Tablet 1 tab PO BID Qty: 60 0RF levofloxacin 750 mg tablet 750 mg PO Q48H Qty: 3 0RF Rx Instructions: Start on 01/14/23 amiodarone 200 mg tablet 200 mg PO DAILY Qty: 30 0RF Continued methimazole 5 mg tablet 5 mg PO DAILY Qty: 30 0RF sertraline 50 mg tablet 50 mg PO DAILY Qty: 30 0RF Discontinued losartan 50 mg tablet 50 mg PO DAILY solifenacin 10 mg tablet 10 mg PO DAILY Discharge Orders: Discharge Order (Routine); Ordered 01/12/23 Ordered By: Angeli Herrmann/Other Patient Handouts: Understanding Deep Vein Thrombosis, DVT Complications, Prediabetes, Low-Fat Cooking Tips, 5 Steps for Eating Healthier, Preventing Deep Vein Thrombosis Admission Data Admit Date/Time: 12/09/22 17:47 Attending Provider: Angeli Cuellar I. Admit Provider: Nitza Goldsmith Primary Care Provider: Valdez Whitlock Other Providers: [facility] ; Nitza Goldsmith ; Angeli Cuellar I. ; [facility] ; [facility] ; Antonio Toledo ; Mark Whittaker ; Gabe Stoll Jr ; Mago Bolanos ; Ganga Molina ; Tomi Cerna ; Rafi Aleman ; Eleuterio Costello ; Bebo Allen ; Mario Magallon ; Cheryle Sanchez ; Chaparrita Saleh ; Mago Baer ; Lobo Multani ; Radha Barnett ; Vera Pulido ; Greg Tamayo ; Taty Beaulieu ; Shubham Demarco [facility] ; Leandro Lopez Other Interventions: Discharge Summary Assessment (RN) Last Done: 01/12/23 14:07
== END 2023-01-12 16:00 | DRG 853 ==
LOC: ED 12:55 → 2N 17:47 → SUATTDRO 17:47 → 2N 20:35 → 2S 12-10 06:23 → 1E 12-18 10:18 → 4W 12-22 13:57
DX: Y92.239 Unspecified place in hospital as the place of occurrence of the external cause; K66.0 Peritoneal adhesions (postprocedural) (postinfection); Z87.891 Personal history of nicotine dependence; K86.3 Pseudocyst of pancreas; R73.03 Prediabetes; T83.511A Infection and inflammatory reaction due to indwelling urethral catheter, initial encounter; Y83.8 Other surgical procedures as the cause of abnormal reaction of the patient, or of later complication, without mention of misadventure at the time of the procedure; E87.20 Acidosis, unspecified; N39.0 Urinary tract infection, site not specified; A41.9 Sepsis, unspecified organism; R74.01 Elevation of levels of liver transaminase levels; Y74.2 Prosthetic and other implants, materials and accessory general hospital and personal-use devices associated with adverse incidents; J98.11 Atelectasis; E05.90 Thyrotoxicosis, unspecified without thyrotoxic crisis or storm; I10 Essential (primary) hypertension; K85.10 Biliary acute pancreatitis without necrosis or infection; E83.51 Hypocalcemia; I47.1 Supraventricular tachycardia; R65.21 Severe sepsis with septic shock; K91.81 Other intraoperative complications of digestive system; N17.0 Acute kidney failure with tubular necrosis; K80.66 Calculus of gallbladder and bile duct with acute and chronic cholecystitis without obstruction; F41.9 Anxiety disorder, unspecified; G35 Multiple sclerosis; J96.01 Acute respiratory failure with hypoxia; K83.09 Other cholangitis; I48.0 Paroxysmal atrial fibrillation; N93.8 Other specified abnormal uterine and vaginal bleeding

== ENCOUNTER 2023-01-15 16:31 | Inpatient (IN) ==
[2023-01-15] MEDS ORDERED: SODIUM CHLORIDE 0.9% 1000ML 1,000 ML IV ONE ×2 (17:01→17:06)
[2023-01-15] MEDS ORDERED: PIPERACILLIN/TAZOBACTAM 4.5 GM/120 ML BAG IV ONE ×2 (17:06→19:06)
--- NOTE | 2023-01-15 17:31 | XRay Report ---
XR chest 1V not portable HISTORY: 72 years-old Female Sepsis acute sepsis COMPARISON: Chest radiograph 12/26/2022 TECHNIQUE: AP view of the chest FINDINGS: Cardiac silhouette is enlarged. Status post removal of the hemodialysis catheter. No pneumothorax. Le ft greater than right pleural effusions with dense left basilar consolidation. Bones appear grossly i ntact. IMPRESSION: 1. Cardiomegaly without overt pulmonary edema. 2. Layering left pleural effusion with left basilar predominant consolidation suggestive of atelectas is versus pneumonia. ACT 112: Negative or not required by law. The above report was generated using voice recognition software. It may contain grammatical, syntax o r spelling errors. Electronically signed by: Nick Stone M.D. 01/15/2023 5:30 PM
[2023-01-15 17:38] LABS: Albumin Globulin Ratio 0.6 (0.9-2); Albumin Level 2.5 gm/dl (3.4-5.0); BUN Creatinine Ratio 19.2 (10-20); Bilirubin,Total 0.7 mg/dl (0.2-1.0); Calcium 7.8 mg/dl (8.6-10.3); Est GFR (African American) 22.6 ml/min; Est GFR (Non-African American) 19.5 ml/min; Globulin 4.3 gm/dl (2.5-4.0); Magnesium 1.8 mg/dl (1.7-2.4); Potassium 3.5 mmol/L (3.5-5.1); Total Protein 6.8 gm/dl (6.0-8.3)
--- NOTE | 2023-01-15 17:40 | Emergency Department Note ---
Impression & Plan Sepsis, Acute pancreatitis, Fever postop ED Provider Note NAME: LYNDON LUA AGE: 72 SEX: F : 1950 ARRIVES VIA: Ambulance INFORMANT: Patient, EMS, the patient's significant other ED PROVIDER(S): Matt Torres DO CHIEF COMPLAINT: Abdominal pain HPI: The patient is a 72-year-old female who presented to the emergency department for illness. The patient recently had her gallbladder removed. This was accompanied by gallstones as well as a sending cholangitis. The patient was discharged to a assisted. Apparently the patient has had biliary drain in place. She has had worsening illness over the course of the last week. She was hypotensive. She had outpatient laboratory studies which showed acute abnormalities in her white blood cell count as well as her renal function. She does take Eliquis. She has noticed nausea. She has had no black or bloody stools. She was sent to the emergency room for further evaluation. ROS: See above HPI for pertinent positives & negatives. A total of 10 systems reviewed and were otherwise negative. PAST MEDICAL HISTORY: See Below PAST SURGICAL HISTORY: See Below FAMILY HISTORY: See Below SOCIAL HISTORY: See Below HOME MEDICATIONS: See Below ALLERGIES: See Below VITALS: See Below PHYSICAL EXAMINATION: GENERAL: The patient is awake and very anxious. She does appear to be uncomfortable. EYES: The conjunctivae are clear. The pupils are round and reactive. EARS, NOSE, MOUTH AND THROAT: The nose is without any evidence of any deformity. Mucous membranes are dry. NECK: The neck is nontender and supple. RESPIRATORY: Normal respiratory effort is noted there is no evidence of wheezing rhonchi or rales CARDIOVASCULAR: Regular rate and rhythm noted there no murmurs rubs or gallops normal S1 normal S2. GASTROINTESTINAL: The abdomen is distended. There is diffuse tenderness to palpation. This there is a drain in the right upper quadrant. MUSCULOSKELETAL/EXTREMITIES: There is no evidence of gross deformity full range of motion is noted in the hips and shoulders. SKIN: Skin is cool and dry. Trace pedal edema was noted bilaterally. NEUROLOGIC: Patient is awake alert and oriented x3. MEDICAL DECISION MAKING: The patient is a 72-year-old female who presented to the emergency department from the assisted for an evaluation of generalized weakness. She was recently in our facility for a long period of time for cholecystectomy which was complicated by biliary stent as well as a drain. The patient had pancreatitis as well. The patient did not have significant abdominal pain on physical exam. She has been complaining of back pain. She had skin sores on her buttocks. I discussed patient's laboratory and radiographic studies with her. She was found have a very elevated white blood cell count. She was treated with IV antibiotics as well as IV fluids. I discussed her condition with the on-call general surgical group as well as the on-call [facility] hospitalist group. They have agreed to evaluate the patient in the emergency department for further management and disposition. Triage Nursing notes reviewed. Prior medical records reviewed Vital Signs: reviewed and remarkable for hypotension and fever. Differential diagnosis: Etiologies such as appendicitis, diverticulitis, obstruction, inflammatory bowel disease, renal colic, PUD, biliary pathology, pancreatitis, mesenteric ischemia, aortic pathology, infections, genitourinary, UTI, perforated viscus, postoperative abscess, postoperative bleeding, injury to adjacent structures as well as others were entertained. ER treatment provided: See below Diagnostics interpreted by me: ECG: EKG was obtained in the emergency department. My interpretation is normal sinus rhythm at 84 bpm. There is no ectopy. There is no acute ST segment abnormalities noted. This was compared to a tracing from December 29, 2022. No changes were noted. Cardiac Monitoring: An order was placed for continuous cardiac monitoring. The monitor shows a rate of 86 bpm with sinus rhythm. Laboratory studies: As stated above and show below. Imaging studies: See below. Radiographic imaging was reviewed by myself Consultation(s): I discussed this case with Krzysztof Segura who is on-call for the general surgical group. I discussed this case [facility] COURSE: Procedures: none Critical Care: I have personally spent greater than 45 minutes of critical care time in the direct management of this patient. This includes bedside care, interpretation of diagnostic studies, and testing, discussion with consultants, patient, and family members, and other required patient management activities. This 45 minutes is in excess of all separately billable procedures. Past Med/Surg History Medical History Ambulatory dysfunction d/t MS Depression History of claustrophobia Hypertension Multiple sclerosis Surgical History Hx laparoscopic cholecystectomy (12/10/22) Laparoscopic cholecystectomy with extensive lysis of adhesions, please add modifier for extensive difficulty and increased length of the procedure. Social History Smoking Status: Unknown if ever smoked Second Hand Exposure: No; Hx Alcohol Use: No Hx Substance Use: No Preferred Language: Bulgarian Communication Ability: Effective Visual Impairment: No Limitations Personnel Administrator Required: No Beliefs That Will Affect Care: None marital status: Single Current Living Situation: Significant Other current occupational status: retired Feels Safe at Home: Yes Assistive Devices: Scooter/Electric Scooter, Walker, Wheelchair and Other Allergies Allergies Allergy/AdvReac Type Severity Reaction Status Date / Time No Known Allergies Allergy Unverified 01/15/23 17:50 Home Meds Home Medications Medication Instructions Recorded Confirmed acetaminophen 325 mg tablet 650 mg PO Q6 PRN Fever Or Pain 01/15/23 01/15/23 amiodarone 200 mg tablet 200 mg PO QAM 01/15/23 01/15/23 diclofenac sodium 1 % topical gel 2 g topical QID 01/15/23 01/15/23 magnesium oxide 400 mg (241.3 mg 400 mg PO QAM 01/15/23 01/15/23 magnesium) tablet menthol 0.44 %-zinc oxide 20.6 % 1 applic topical TID 01/15/23 01/15/23 topical ointment (Calmoseptine) metoprolol succinate 50 mg 50 mg PO AMHS 01/15/23 01/15/23 tablet,extended release 24 hr oxycodone 5 mg tablet 5 mg PO Q6 PRN pain,moderate 01/15/23 01/15/23 oxycodone 5 mg tablet 10 mg PO Q6 PRN pain,severe 01/15/23 01/15/23 sennosides 8.6 mg-docusate sodium 1 tab PO AMHS 01/15/23 01/15/23 50 mg tablet (Senokot-S) sertraline 50 mg tablet 50 mg PO QAM 01/15/23 01/15/23 Previous Rx's Medication Instructions Recorded apixaban 5 mg tablet (Eliquis) 5 mg PO BID #60 tabs 01/12/23 levofloxacin 750 mg tablet 750 mg PO Q48H #3 tabs 01/12/23 methimazole 5 mg tablet 5 mg PO DAILY #30 tabs 01/12/23 Results & Data (ED) Vital Signs Vital Signs - 24 hr 01/15/23 16:32 01/15/23 16:45 01/15/23 16:32 Temperature 37.7 C H Temperature Source Rectal Pulse Rate 88 89 82 Pulse Rate [Right Finger] Respiratory Rate 24 28 H Respiratory Effort / Characteristics Non-Labored Spontaneous Respiratory Depth Blood Pressure 71/37 L Blood Pressure [Right Arm] Blood Pressure Mean 48 Blood Pressure Mean [Right Arm] Pulse Oximetry 92 96 Oxygen Delivery Method Room Air Room Air Sepsis Recent Fever Within 48 Hours Yes Sepsis New/Unexplained Change in Mental Status N/A Sepsis Action Taken by Nursing Physician Notified 01/15/23 17:18 01/15/23 17:40 01/15/23 17:31 Temperature Temperature Source Pulse Rate Pulse Rate [Right Finger] 82 88 88 Respiratory Rate 24 28 H 24 Respiratory Effort / Characteristics Non-Labored Non-Labored Respiratory Depth Normal Normal Blood Pressure Blood Pressure [Right Arm] 91/43 L 98/40 L 86/42 L Blood Pressure Mean Blood Pressure Mean [Right Arm] 59 59 56 Pulse Oximetry 97 97 93 Oxygen Delivery Method Room Air Room Air Room Air Sepsis Recent Fever Within 48 Hours Sepsis New/Unexplained Change in Mental Status Sepsis Action Taken by Nursing 01/15/23 18:08 Temperature Temperature Source Pulse Rate Pulse Rate [Right Finger] 86 Respiratory Rate 26 H Respiratory Effort / Characteristics Respiratory Depth Blood Pressure Blood Pressure [Right Arm] 98/69 L Blood Pressure Mean Blood Pressure Mean [Right Arm] 78 Pulse Oximetry 94 Oxygen Delivery Method Room Air Sepsis Recent Fever Within 48 Hours Sepsis New/Unexplained Change in Mental Status Sepsis Action Taken by Assisted Medications Current Medication List: was personally reviewed by me Laboratory Data Attestation: I reviewed the patient's lab results. 01/15/23 16:49 01/15/23 16:49 Lab Results 01/15/23 01/15/23 01/15/23 Range/Units 16:48 16:49 16:49 WBC 34.17 H* (4.8-10.8) K/ul RBC 3.78 L (4.20-5.40) M/uL Hgb 10.7 L (12.0-16.0) g/dl Hct 33.0 L (37.0-47.0) % MCV 87.3 (80.0-100.0) fL MCH 28.3 (25.0-34.0) pg MCHC 32.4 (32.0-36.0) g/dL RDW Std Deviation 46.4 H (36.4-46.3) fL RDW Coeff of Mandy 14.5 (11.5-14.5) % Plt Count 431 H (130-400) K/uL MPV 9.3 L (9.4-12.4) fL Neutrophils % (Manual) 61 % Lymphocytes % (Manual) 4 % Monocytes % (Manual) 4 % Eosinophils % (Manual) 2 % Neutrophils # (Manual) 20.84 H (1.40-6.50) K/uL Total Absolute Neuts 20.84 H (1.4-6.5) K/uL Lymphocytes # (Manual) 1.37 (1.2-3.4) K/uL Total Abs Lymphocytes 11.28 H (1.2-3.4) K/uL Monocytes # (Manual) 1.37 H (0.11-0.59) K/uL Eosinophils # (Manual) 0.68 H (0-0.50) K/uL Large Granular Lymphs 29 % # Lrg Granular Lymphs 9.91 K/uL PT 13.6 H (9.0-12.0) Seconds INR 1.3 H (0.9-1.1) APTT 39.1 H (21.0-31.0) Seconds PTT Ratio 1.4 Sodium (136-145) mmol/L Potassium (3.5-5.1) mmol/L Chloride (98-107) mmol/L Carbon Dioxide (21-32) mmol/L Anion Gap (3-11) BUN (6-23) mg/dl Creatinine (0.6-1.2) mg/dl Est Cr Clr Drug Dosing ml/min Est GFR ( Amer) ml/min Est GFR (Non-Af Amer) ml/min BUN/Creatinine Ratio (10-20) Glucose (70-99(Fasting)) mg/dl Lactate 2.1 H* (0.4-2.0) mmol/L Calcium (8.6-10.3) mg/dl Magnesium (1.7-2.4) mg/dl Total Bilirubin (0.2-1.0) mg/dl AST (13-39) U/L ALT (7-52) U/L Alkaline Phosphatase (34-104) U/L Troponin I High Sens (0-14) pg/ml Total Protein (6.0-8.3) gm/dl Albumin (3.4-5.0) gm/dl Globulin (2.5-4.0) gm/dl Albumin/Globulin Ratio (0.9-2) Lipase (11-82) U/L Procalcitonin (0-0.5) ng/ml 01/15/23 01/15/23 01/15/23 Range/Units 16:49 16:49 19:05 WBC (4.8-10.8) K/ul RBC (4.20-5.40) M/uL Hgb (12.0-16.0) g/dl Hct (37.0-47.0) % MCV (80.0-100.0) fL MCH (25.0-34.0) pg MCHC (32.0-36.0) g/dL RDW Std Deviation (36.4-46.3) fL RDW Coeff of Mandy (11.5-14.5) % Plt Count (130-400) K/uL MPV (9.4-12.4) fL Neutrophils % (Manual) % Lymphocytes % (Manual) % Monocytes % (Manual) % Eosinophils % (Manual) % Neutrophils # (Manual) (1.40-6.50) K/uL Total Absolute Neuts (1.4-6.5) K/uL Lymphocytes # (Manual) (1.2-3.4) K/uL Total Abs Lymphocytes (1.2-3.4) K/uL Monocytes # (Manual) (0.11-0.59) K/uL Eosinophils # (Manual) (0-0.50) K/uL Large Granular Lymphs % # Lrg Granular Lymphs K/uL PT (9.0-12.0) Seconds INR (0.9-1.1) APTT (21.0-31.0) Seconds PTT Ratio Sodium 134 L (136-145) mmol/L Potassium 3.5 (3.5-5.1) mmol/L Chloride 100 (98-107) mmol/L Carbon Dioxide 22 (21-32) mmol/L Anion Gap 12 H (3-11) BUN 46 H (6-23) mg/dl Creatinine 2.39 H D (0.6-1.2) mg/dl Est Cr Clr Drug Dosing 23.0 ml/min Est GFR ( Amer) 22.6 ml/min Est GFR (Non-Af Amer) 19.5 ml/min BUN/Creatinine Ratio 19.2 (10-20) Glucose 115 H (70-99(Fasting)) mg/dl Lactate 1.7 (0.4-2.0) mmol/L Calcium 7.8 L (8.6-10.3) mg/dl Magnesium 1.8 (1.7-2.4) mg/dl Total Bilirubin 0.7 (0.2-1.0) mg/dl AST 19 (13-39) U/L ALT 13 (7-52) U/L Alkaline Phosphatase 62 (34-104) U/L Troponin I High Sens 16.7 H (0-14) pg/ml Total Protein 6.8 (6.0-8.3) gm/dl Albumin 2.5 L (3.4-5.0) gm/dl Globulin 4.3 H (2.5-4.0) gm/dl Albumin/Globulin Ratio 0.6 L (0.9-2) Lipase 287 H (11-82) U/L Procalcitonin 0.94 H (0-0.5) ng/ml Administered Medications Discontinued Medications Sodium Chloride (Nss 1000ml) 1,000 mls @ 999 mls/hr IV .Q1H1M ONE Stop: 01/15/23 18:01 Last Infusion: 01/15/23 18:15 Dose: 0 mls/hr Documented By: Admin: 01/15/23 17:14 Dose: 999 mls/hr Documented By: NRB Sodium Chloride (Nss 1000ml) 1,000 mls @ 999 mls/hr IV .Q1H1M ONE Stop: 01/15/23 18:06 Last Admin: 01/15/23 17:44 Dose: 999 mls/hr Documented By: NRRadha Piperacillin Sod/Tazobactam Sod (Zosyn) 4.5 gm in 120 mls @ 240 mls/hr IV NOW ONE Stop: 01/15/23 17:35 Last Infusion: 01/15/23 17:44 Dose: 0 mls/hr Documented By: Admin: 01/15/23 17:14 Dose: 240 mls/hr Documented By: PAUL Sodium Chloride (Nss) 500 mls @ 999 mls/hr IV .Q31M ONE Stop: 01/15/23 19:36 Last Admin: 01/15/23 19:39 Dose: 999 mls/hr Documented By: FRANCISCO JAVIER Piperacillin Sod/Tazobactam Sod (Zosyn) 4.5 gm in 120 mls @ 240 mls/hr IV NOW ONE Stop: 01/15/23 19:35 Last Admin: 01/15/23 19:33 Dose: 240 mls/hr Documented By: FRANCISCO JAVIER Imaging Data Attestation: I personally reviewed and interpreted this imaging study as follows: My Impression: 1 view chest x-ray was obtained in the emergency department. My interpretation is no free air, final report below. Radiologist's Impression: Chest X-Ray 01/15/23 16:50 XR chest 1V not portable HISTORY: 72 years-old Female Sepsis acute sepsis COMPARISON: Chest radiograph 12/26/2022 TECHNIQUE: AP view of the chest FINDINGS: Cardiac silhouette is enlarged. Status post removal of the hemodialysis catheter. No pneumothorax. Left greater than right pleural effusions with dense left basilar consolidation. Bones appear grossly intact. IMPRESSION: 1. Cardiomegaly without overt pulmonary edema. 2. Layering left pleural effusion with left basilar predominant consolidation suggestive of atelectasis versus pneumonia. ACT 112: Negative or not required by law. The above report was generated using voice recognition software. It may contain grammatical, syntax or spelling errors. Electronically signed by: Nick Stone M.D. 01/15/2023 5:30 PM Abdomen/Pelvis CT 01/15/23 17:[address] WITHOUT CONTRAST CT DOSE: 762.37 mGy.cm HISTORY: Acute fever with generalized abdominal pain status post cholecystectomy. fever, SP adele TECHNIQUE: Multiaxial CT images of the abdomen and pelvis were performed without contrast. A dose lowering technique was utilized adhering to the principles of ALARA. COMPARISON STUDY: 12/31/2022, 12/17/2022 FINDINGS: Small to moderate left pleural effusion with left basilar consolidation has progressively worsened from prior. Trace right pleural effusion with moderate basilar atelectasis. Limited exam without the use of IV contrast. Upper abdominal ascites has increased within the abdominal left upper quadrant and perisplenic distribution with mild mass effect upon the adjacent spleen. Unremarkable adrenal glands. Severe pancreatitis redemonstrated with similar appearance of the interstitial and peripancreatic inflammation. Peripancreatic fluid collections are again noted, suboptimally evaluated without the use of IV contrast. 2.5 cm collection adjacent to the pancreatic head on image 179 previously measured 3.9 cm. A 3.4 cm fluid attenuating structure within the abdominal left upper quadrant is new from prior, possibly loculated ascites versus acute peripancreatic fluid collection. Unremarkable liver. Intrahepatic and extrahepatic pneumobilia is redemonstrated with a common bile duct stent in place. Air and fluid-filled structure within the tima hepatis measures 5.4 x 2.7 cm on image 138 which is similar in appearance and size to the 12/31/2022 exam. A right subhepatic percutaneous drainage catheter is in unchanged positioning. Decreased subcutaneous collection adjacent to the catheter tract. Numerous nonobstructing bilateral renal calculi are noted measuring up to 11 mm on the left 11 mm on the right. Mild nonspecific bilateral perinephric stranding. No ureteral calculi or hydronephrosis. Unremarkable urinary bladder and uterus. Atherosclerosis aorta. Wall thickening of the duodenum is likely reactive. No bowel obstruction or bowel wall thickening. Unremarkable soft tissues. No acute fracture. IMPRESSION: 1. Redemonstration of severe acute pancreatitis which appears similar to the 12/31/2022 exam. Peripancreatic fluid collections are suboptimally evaluated without the use of IV contrast however the dominant collection adjacent to the pancreatic head has decreased in size. 2. Postoperative changes of prior cholecystectomy with air and fluid-filled structure again noted within the tima hepatis, possibly representing residual gallbladder versus postoperative fluid collection. 3. Common bile duct stent in satisfactory positioning with pneumobilia. 4. Unchanged positioning of the right subhepatic percutaneous drainage catheter. 5. Bilateral nephrolithiasis without ureteral calculi or hydronephrosis. 6. Moderate left pleural effusion has increased in size with progressive left basilar consolidation suggestive of atelectasis versus pneumonia. 7. Increased amount of abdominal left upper quadrant ascites. ACT 112: Negative or not required by law. The above report was generated using voice recognition software. It may contain grammatical, syntax or spelling errors. Electronically signed by: Nick Stone M.D. 01/15/2023 6:48 PM Discharge Plan Visit Data Chief Complaint: Illness ED Provider: Matt Torres Discharge Problem: Sepsis, Acute pancreatitis, Fever postop Patient Disposition: Being Evaluated by Hospitalist Forms Stand Alone Forms: [facility] Prescriptions Prescriptions: No Action magnesium oxide 400 mg (241.3 mg magnesium) tablet 400 mg PO QAM amiodarone 200 mg tablet 200 mg PO QAM metoprolol succinate 50 mg tablet extended release 24 hr 50 mg PO AMHS sennosides-docusate sodium [Senokot-S] 8.6-50 mg tablet 1 tab PO AMHS sertraline 50 mg tablet 50 mg PO QAM acetaminophen 325 mg Tablet 650 mg PO Q6 PRN (Reason: Fever Or Pain) Rx Instructions: use for temp>100 or mild pain oxycodone 5 mg Tablet 10 mg PO Q6 PRN (Reason: pain,severe) oxycodone 5 mg Tablet 5 mg PO Q6 PRN (Reason: pain,moderate) diclofenac sodium [Voltaren] 1 % Gel 2 g TOPICAL QID Rx Instructions: apply to left shoulder menthol-zinc oxide [Calmoseptine] 0.44-20.6 % Ointment 1 applic TOPICAL TID Rx Instructions: apply to buttocks Eliquis 5 mg Tablet 5 mg PO BID Qty: 60 0RF methimazole 5 mg tablet 5 mg PO DAILY Qty: 30 0RF levofloxacin 750 mg tablet 750 mg PO Q48H Qty: 3 0RF Rx Instructions: Start on 01/14/23 Referrals Referrals: Valdez Whitlock MD [Primary Care Provider] -
[2023-01-15 17:45] LABS: Hemoglobin 10.7 g/dl (12.0-16.0); Mean Corpuscular Hemoglobin 28.3 pg (25.0-34.0); Mean Corpuscular Hgb Conc 32.4 g/dL (32.0-36.0); Mean Corpuscular Volume 87.3 fL (80.0-100.0); Mean Platelet Volume 9.3 fL (9.4-12.4); Platelet Count 431 K/uL (130-400); RDW Coefficient of Variation 14.5 % (11.5-14.5); RDW Standard Deviation 46.4 fL (36.4-46.3); Red Blood Count 3.78 M/uL (4.20-5.40); Troponin I High Sensitivity 16.7 pg/ml (0-14); White Blood Count 34.17 K/ul (4.8-10.8)
[2023-01-15 18:04] LABS: INR 1.3 (0.9-1.1); Partial Thromboplastin Ratio 1.4; Partial Thromboplastin Time 39.1 Seconds (21.0-31.0); Prothrombin Time 13.6 Seconds (9.0-12.0)
[2023-01-15 18:33] LABS: ALC (manual) 11.28 K/uL (1.2-3.4); ANC (manual) 20.84 K/uL (1.4-6.5); Eosinophils # (manual) 0.68 K/uL (0-0.50); Eosinophils % (manual) 2 %; Large Granular Lymph # (manua 9.91 K/uL; Large Granular Lymph % (manual) 29 %; Lymphocytes # (manual) 1.37 K/uL (1.2-3.4); Lymphocytes % (manual) 4 %; Monocytes # (manual) 1.37 K/uL (0.11-0.59); Monocytes % (manual) 4 %; Neutrophils # (manual) 20.84 K/uL (1.40-6.50); Neutrophils % (manual) 61 %
--- NOTE | 2023-01-15 18:50 | CT Scan Report ---
ABDOMEN AND PELVIS CT WITHOUT CONTRAST CT DOSE: 762.37 mGy.cm HISTORY: Acute fever with generalized abdominal pain status post cholecystectomy. fever, SP adele TECHNIQUE: Multiaxial CT images of the abdomen and pelvis were performed without contrast. A dose lo wering technique was utilized adhering to the principles of ALARA. COMPARISON STUDY: 12/31/2022, 12/17/2022 FINDINGS: Small to moderate left pleural effusion with left basilar consolidation has progressively w orsened from prior. Trace right pleural effusion with moderate basilar atelectasis. Limited exam with out the use of IV contrast. Upper abdominal ascites has increased within the abdominal left upper mathew drant and perisplenic distribution with mild mass effect upon the adjacent spleen. Unremarkable adren al glands. Severe pancreatitis redemonstrated with similar appearance of the interstitial and peripan creatic inflammation. Peripancreatic fluid collections are again noted, suboptimally evaluated withou t the use of IV contrast. 2.5 cm collection adjacent to the pancreatic head on image 179 previously m easured 3.9 cm. A 3.4 cm fluid attenuating structure within the abdominal left upper quadrant is new from prior, possibly loculated ascites versus acute peripancreatic fluid collection. Unremarkable liver. Intrahepatic and extrahepatic pneumobilia is redemonstrated with a common bile du ct stent in place. Air and fluid-filled structure within the tima hepatis measures 5.4 x 2.7 cm on i mage 138 which is similar in appearance and size to the 12/31/2022 exam. A right subhepatic percutaneou s drainage catheter is in unchanged positioning. Decreased subcutaneous collection adjacent to the ca theter tract. Numerous nonobstructing bilateral renal calculi are noted measuring up to 11 mm on the left 11 mm on the right. Mild nonspecific bilateral perinephric stranding. No ureteral calculi or hydronephrosis. U nremarkable urinary bladder and uterus. Atherosclerosis aorta. Wall thickening of the duodenum is lik marisol reactive. No bowel obstruction or bowel wall thickening. Unremarkable soft tissues. No acute frac ture. IMPRESSION: 1. Redemonstration of severe acute pancreatitis which appears similar to the 12/31/2022 exam. Peripancr eatic fluid collections are suboptimally evaluated without the use of IV contrast however the dominan t collection adjacent to the pancreatic head has decreased in size. 2. Postoperative changes of prior cholecystectomy with air and fluid-filled structure again noted wit hin the tima hepatis, possibly representing residual gallbladder versus postoperative fluid collecti on. 3. Common bile duct stent in satisfactory positioning with pneumobilia. 4. Unchanged positioning of the right subhepatic percutaneous drainage catheter. 5. Bilateral nephrolithiasis without ureteral calculi or hydronephrosis. 6. Moderate left pleural effusion has increased in size with progressive left basilar consolidation s uggestive of atelectasis versus pneumonia. 7. Increased amount of abdominal left upper quadrant ascites. ACT 112: Negative or not required by law. The above report was generated using voice recognition software. It may contain grammatical, syntax o r spelling errors. Electronically signed by: Nick Stone M.D. 01/15/2023 6:48 PM
[2023-01-15] MEDS ORDERED: SODIUM CHLORIDE 0.9% 500 ML IV ONE (19:06)
--- NOTE | 2023-01-15 20:28 | Surgery Consultation ---
Date of Consultation January 15, 2023 Assessment & Plan (1) Sepsis: I discussed with the treating emergency room physician and the patient is being admitted on the hospitalist service. I suspect the patient is suffering from underlying sepsis with an unknown clear source. At the present time possible sources of her sepsis could include underlying pneumonia, sacral decubitus ulcers, urinary tract infection, or intra-abdominal infection. The patient does have some fluid collections noted in her abdomen but she does not have any underlying signs of peritonitis or an acute abdomen. At this time I do not feel she requires an emergent operation we therefore recommend proceeding as follows: Provide IV fluid for hydration Treat with broad-spectrum antibiotics. The patient has received Zosyn in the emergency department should continue.It is noted that patient did have a urinary tract infection on 01/08/2023 at which time she was noted to have Enterococcus faecalis as well as Pseudomonas. As the patient was noted to have an enterococcal urinary tract infection previously it may be prudent to initiate vancomycin as well. This antibiotic may also prove to be helpful due to her recent prolonged hospitalization as this may place her at increased risk for MRSA. I discussed with the hospital service and they are planning on initiating this additional antibiotic. Blood cultures have been drawn. A urine culture has also been ordered which has yet to be collected. Follow serial labs Would recommend consultation with the wound care nurse due to patient's underlying pressure sores. Appropriate offloading measures should be implemented as well. Additional recommendations were forthcoming based on patient's clinical course as it unfolds. I discussed the above plan with the patient and her interline clerk Mr. Horacio Melvin who was present at bedside (he can be reached at [phone]) and the patient's daughter Stacey via phone (she can be reached at [phone]) They have requested that they be kept informed of the medical decision making concerning the patient's care as she sometimes has difficulty understanding all the information has been conveyed to her. Supervising Physician Co-Signing Physician Notes d/w Krzysztof Segura, labs and imaging reviewed, agree with above. h/o ercp and lap subtotal cholecystectomy for gangrenous cholecystitis and cholangitis. Prolonged hosptial stay due to sepsis and SAMMY requiring temporary dialysis. Discharged to rehab. Sent in for elevated wbc. febrile, tachy, normotensive with fluid resuscitation. wbc 34, ct personally reviewed and shows sever pancreaitits, remnant GB, ascites, irais pancreatic likely pseudocyst. no free air, no large abscess, no ischemia. abd exam reassuring. No surgical indication at this time. Will d/w Dr. Whittaker in AM, recommend iv abx and supportive care. History of Present Illness Reason for Consultation: Hypotension and fever status post cholecystectomy History of Present Illness This is a 72-year-old female who is known to the [facility] physician group general surgery service. The patient was most recently admitted to [facility] from 12/09/2022 until 01/12/2023. During this admission patient had pancreatitis. She did undergo an ERCP with stent placement and also a cholecystectomy. The patient was noted to have severe necrotizing acute and chronic cholecystitis. During patient's postoperative course she developed a postoperative bile leak.For the patient's bile leak she did have a MIMI drain in place which remains in place today. In addition to these procedures the patient developed acute kidney injury during this hospitalization which was felt to be multifactorial including the use of IV contrast, poor oral intake, concomitant use of losartan, and underlying sepsis resulting in hypotension. The patient did require temporary hemodialysis but her kidneys did recover and she did not require dialysis at the time of discharge. The patient did have a prolonged hospitalization with dates listed above. Prior to patient's surgery she was able to ambulate with a rolling walker but due to her deconditioning she was having great deal of difficulty returning to her previous level of ambulation and it was felt that the patient would best be served with discharge to a rehab facility The patient was discharged to [place] [facility] on 12/12/2022 for acute inpatient rehab. Over the past several days the patient noted that she was not feeling well. She was complaining of some generalized pain in her back and left shoulder without radiation or mitigating factors. She does note some generalized abdominal pain but this has been present for quite some time. She denies any nausea or vomiting. She does note a poor appetite. She notes that her bowels are moving intermittently. She denies any cough or shortness of breath. The patient is unsure if she had any fevers but she was noted to be febrile upon arrival to the hospital today. Prior to her gallbladder surgery the patient ambulated with a rolling walker and since that time she has been unable to ambulate and has only been able to sit at the edge of the bed. There have no been no reported falls. The patient denies any visual changes. She denies any dysuria. Since presentation to the emergency department the patient has had labs and imaging which I independent reviewed. A chest x-ray showed patient had a layering left pleural effusion with atelectasis. An underlying pneumonia could not be excluded. A CT scan of the abdomen and pelvis was also performed. This showed the patient had findings concerning for severe acute pancreatitis which appeared similar to CT scan on 12/31/2022. There are peripancreatic fluid collection noted. The most dominant fluid collection appeared to be approximately 2.5 cm adjacent to the pancreatic head which appeared to improve in size from prior CT scan. The patient also had a 3.4 cm fluid collection in the left upper quadrant which was new from her previous CT scan which is felt to represent either loculated ascites or an acute peripancreatic fluid collection. Postoperative changes from a cholecystectomy were noted with air and fluid in the tima hepatis which was felt to potentially represent residual gallbladder versus a postoperative fluid collection. There is pneumobilia with a common bile duct stent in place. The stent appeared to be in satisfactory position. There is a right subhepatic percutaneous drain in place. There were bilateral nephrolithiasis without any ureteral stones or hydronephrosis. A moderate left pleural effusion was noted and therefore underlying atelectasis was noted and pneumonia could not be excluded. There is some left upper quadrant abdominal ascites. Labs include a CBC were white blood cell count was 34.1. (This was elevated from the value of 16.9 noted at time of discharge from [facility]) her hemoglobin and hematocrit were 10.7 and 33.0. These values appeared stable from her values at time of discharge. Platelet count was 4- 33,000. Coagulation studies revealed an INR of 1.3. Her sodium was 134 with a normal potassium. BUN and creatinine were 46 and 2.39. (At time of discharge from [facility] her creatinine was 1.99) her magnesium was noted to be normal. The patient's total bilirubin, and transaminases, and alkaline phosphatase were within the normal range. Lipase was noted to be elevated at 287. A procalcitonin level was 0.94. A COVID test is pending. At the time of my interview the patient was resting comfortably in bed and does not appear to be in any distress. She was noted to be slightly tachycardic with a heart rate of 102 and her blood pressure is 98/69. He was running a low- grade fever of 37.7. Allergies Allergy/AdvReac Type Severity Reaction Status Date / Time No Known Allergies Allergy Unverified 01/15/23 17:50 Home Medications Medication Instructions Recorded Confirmed Type apixaban 5 mg tablet (Eliquis) 5 mg PO BID #60 tabs 01/12/23 01/15/23 Rx levofloxacin 750 mg tablet 750 mg PO Q48H #3 tabs 01/12/23 01/15/23 Rx methimazole 5 mg tablet 5 mg PO DAILY #30 tabs 01/12/23 01/15/23 Rx acetaminophen 325 mg tablet 650 mg PO Q6 PRN Fever Or Pain 01/15/23 01/15/23 History amiodarone 200 mg tablet 200 mg PO QAM 01/15/23 01/15/23 History diclofenac sodium 1 % topical gel 2 g topical QID 01/15/23 01/15/23 History magnesium oxide 400 mg (241.3 mg 400 mg PO QAM 01/15/23 01/15/23 History magnesium) tablet menthol 0.44 %-zinc oxide 20.6 % 1 applic topical TID 01/15/23 01/15/23 History topical ointment (Calmoseptine) metoprolol succinate 50 mg 50 mg PO AMHS 01/15/23 01/15/23 History tablet,extended release 24 hr oxycodone 5 mg tablet 5 mg PO Q6 PRN pain,moderate 01/15/23 01/15/23 History oxycodone 5 mg tablet 10 mg PO Q6 PRN pain,severe 01/15/23 01/15/23 History sennosides 8.6 mg-docusate sodium 1 tab PO AMHS 01/15/23 01/15/23 History 50 mg tablet (Senokot-S) sertraline 50 mg tablet 50 mg PO QAM 01/15/23 01/15/23 History Patient History Medical History Ambulatory dysfunction d/t MS Depression History of claustrophobia Hypertension Multiple sclerosis Surgical History Hx laparoscopic cholecystectomy (12/10/22) Laparoscopic cholecystectomy with extensive lysis of adhesions, please add modifier for extensive difficulty and increased length of the procedure. Social History Smoking Status: Unknown if ever smoked Second Hand Exposure: No; Hx Alcohol Use: No Hx Substance Use: No Preferred Language: Wallisian Communication Ability: Effective Visual Impairment: No Limitations General Passenger Agent Required: No Beliefs That Will Affect Care: None marital status: Single Current Living Situation: Significant Other current occupational status: retired Feels Safe at Home: Yes Assistive Devices: Scooter/Electric Scooter, Walker, Wheelchair and Other Review of Systems Constitutional: + fever and + weakness; no chills Eyes: no diplopia Ear, Nose, Mouth, Throat: no hearing loss Respiratory: no cough and no dyspnea Cardiovascular: no chest pain Gastrointestinal: as per Subjective / HPI Genitourinary: no dysuria Musculoskeletal: + back pain Integumentary: no rash Neurologic: + generalized weakness Physical Exam Physical Exam: With the assistance of a female nurse garden labourer the patient was turned in bedside. The patient did have 2 buttock wounds. These were located bilaterally adjacent to the anal crease. These were both approximately 1 cm x 2 cm in size. There is no gross purulence noted of these wounds. There is no crepitus in the soft tissue. There is no visible muscle of these wounds. Constitutional: well developed and well nourished; no acute distress Eyes: no conjunctival abnormality ENMT: Ears: no hearing impairment and no external ear abnormality Oral mucosa is dry Neck: trachea midline Respiratory: Patient was not using accessory muscles to aid in respiration and did not appear dyspneic. Her breath sounds were decreased at the bases with the left being greater than the right. I did not appreciate any rales or wheezing. Cardiovascular: Rate/Rhythm: regular rate and regular rhythm Vessels: dorsalis pedis pulses present Gastrointestinal (Abdomen): Abdomen is rotund but soft. It is nondistended. There is minimal pain noted with palpation. There is no rebound tenderness or guarding and no signs of per itonitis. The patient did have a MIMI drain in place in the right upper quadrant which was draining a thick brown fluid. The insertion site of the drain had a small amount of erythema but no drainage surrounding the insertion site and no signs of overt infection. Musculoskeletal: No calf tenderness. Dorsalis pedis pulses are palpable. Feet are warm and well-perfused. There were no signs of any nonhealing foot wounds. Skin: no rashes Neurologic: Patient is able to move all 4 extremities and follows simple commands Psychiatric: Orientation: alert and oriented x 3 Affect: + flat affect Results & Data Vital Signs (Past 12 Hours) Vital Signs Temp Pulse Pulse Resp BP BP Pulse Ox 01/15/23 18:08 86 26 H 98/69 L 94 01/15/23 17:31 88 24 86/42 L 93 01/15/23 17:40 88 28 H 98/40 L 97 01/15/23 17:18 82 24 91/43 L 97 01/15/23 16:32 82 28 H 96 01/15/23 16:45 89 01/15/23 16:32 37.7 C H 88 24 71/37 L 92 O2 Del Method 01/15/23 18:08 Room Air 01/15/23 17:31 Room Air 01/15/23 17:40 Room Air 01/15/23 17:18 Room Air 01/15/23 16:32 Room Air 01/15/23 16:45 01/15/23 16:32 Room Air PG Care Time/CCT Total # of Minutes Spent Total Time Spent with Patient: Total time spent is greater than 50% in coordination of care (as documented) at patient's floor/unit and/or counseling patient: Coding Level of Care Code 39656 INT INP/OBS CARE 3/75MIN Diagnoses Sepsis A41.9 Sepsis acute organ dysfunction status: unspecified Sepsis type: sepsis due to unspecified organism (1) Sepsis Sepsis acute organ dysfunction status: unspecified Sepsis type: sepsis due to unspecified organism Qualified Code(s): A41.9 - Sepsis, unspecified organism
[2023-01-15] MEDS ORDERED: VANCOMYCIN CONSULT ACTIVE PRN (21:32)
[2023-01-15] MEDS ORDERED: VANCOMYCIN HCL 1,000 MG in SODIUM CHLORIDE 0.9% 250 ML IV SCH (21:35)
[2023-01-15] MEDS ORDERED: SODIUM CHLORIDE 0.9% 1000ML 1,000 ML IV SCH (21:45)
[2023-01-15] MEDS ORDERED: VANCOMYCIN HCL 1,750 MG in SODIUM CHLORIDE 0.9% 500 ML IV ONE (21:45)
--- NOTE | 2023-01-15 22:33 | Critical Care Consultation ---
Date of Consultation January 15, 2023 Assessment & Plan (1) Sepsis: (2) Acute pancreatitis: (3) Paroxysmal atrial fibrillation: (4) Hx laparoscopic cholecystectomy: (5) SAMMY (acute kidney injury): (6) Depression: (7) Multiple sclerosis: Plan Reason Critically Ill: 72 YOF admitted to ICU for shock multifactorial to include sepsis and hypovolemia. Sources to include abdomen/urine/pneumonia. Neuro - MS, generalized weakness, depression, CAM ICU: Negative - No acute needs - Generalized pain- Tylenol, Oxy IR 5 q6 prn severe pain Cardiac - Shock, PAF, HTN - currently shock multifactorial to include hypovolemia and septic shock or combination of both - Patient will be intravascularly repleted started on vasopressors- have IV team evaluate for ultrasound guided or PICC - consider CVL if needed - She has done very well with volume resuscitation and making excellent amount of urine and minimal pressor requirement - For her PAF she is on amiodarone- will continue- hold her Metoprolol- was in flutter on arrival and re-verted back to NSR following volume - Hold her Apixaban for likely need for procedures Respiratory - Pleural Effusion with compressive atelectasis - Can't exclude pneumonia however she is without hypoxia or sputum production - consideration of diagnostic thoracentesis of target is available as well as holding her DOAC - Less likely source at this time GI - Pancreatitis acute on chronic, subhepatic drain s/p colectomy - Noted fluid collections as well as drain output- her MIMI (sub-hepatic) is noted with light brown creamy colored questioning stool vs. other - drain noted with loose stitch and not holding suction- surgery RONI updated and did discuss with his staff - Defer management to General Surgery - Currently without peritonitis or free air noted - For her Pancreatitis, continue with volume - guide therapy to UO and MAPS RENAL/LYTES - SAMMY, Bilateral nephrolithiasis without hydro - Likely pre-renal secondary to hypovolemia/sepsis - replete intravascular volume - ICU electrolyte protocol - As above - Tomlinson placed for accurate KANCHAN and resuscitation goals ENDO - HX of hyperthyroidism - TSH pending on arrival- normal T4 previously - Continue Methimazole HEME - Leukocytosis, chronic anemia - Supportive care- follow see ID below ID - Septic shock- sources intraabdominal vs. urine vs. pleural or combination - She is without fever or lactate but is noted with tachycardia, increase in WBC count, elevated PCT and SAMMY - Appreciate GS evaluation - defer intraabdominal drains and fluid pocket evaluations to surgical specialty - Continue with Zosyn and Vancomycin- previous culture data reviewed - Consider adding back antifungal coverage if clinical course worsens LINES/IV ACCESS - PIV x2, Tomlinson catheter Continue use of these lines Depending vasopressor requirements- consider CVL vs. PICC DVT PROPHYLAXIS - SCDS chemoprophylaxis once clinical course becomes clear- currently holding DOAC DISPO - ICU until hemodynamics are stable I have personally spent 50 minutes of critical care time in the direct m anagement of this patient. This is a life/limb threatening event. This includes time spent evaluating patient, direct bedside care, chart review, placing orders, interpretation of diagnostic studies, discussion with consultants, patient, and family members, as well as other required patient management activities. This time is exclusive of all separately billable procedures, and teaching time and separate from and in addition to any other critical care service time. Thank you for allowing us to participate in the care of this patient. Please refer to my attending physician's documentation for any further recommendations. History of Present Illness Reason for Consultation: Hypotensive concern for septic shock Requesting Physician: Kory Gordillo Attending Physician: Kory Gordillo History of Present Illness 72 YOF recently discharged from inpatient and ICU stay following laparoscopic cholecystectomy/cholangitis that was gangrenous, with removal of gallstone and with biliary stent, placement of subhepatic drain, pancreatitis complicated by septic shock SAMMY requiring dialysis, afib. Patient returns to the [facility] today from her rehab facility for complaints of generalized weakness and feeling unwell. Patient reports that she continues to have epigastric abdominal pain that comes and goes and is not associated with any food intake. She was noted to be hypotensive in the EMD 70/30s where she received 3 liters of crystalloid with some improvement in her BP to 90s/40s. She had routine labs performed to include lactate/PCT, blood cultures performed. She was noted to have leukocytosis of 32, without a lactate, and noted SAMMY with [employer]IN 2.39. She had CT scan of her abdomen/pelvis performed and UA sent as well. She was placed on Zosyn and Vancomycin IV for presumed intraabdominal/urine/pulmonary sources. She is noted with her subhepatic drain that appears to be draining stool- this appears consistent with her postoperative course and noted by surgery. CT scan interpreted with re-demonstration of severe pancreatitis, peripancreatic fluid collections, air and fluid-filled structure in tima/hepatis- residual gallbladder vs. postoperative fluid collection. Also noting 3.4 cm fluid collection left upper quadrant which is interpreted as new. General Surgery team evaluated the Patein in the EMD and discussed with staff attending. No acute plans for operative exploration. The portions of her lungs evaluated show left pleural effusion with increase in atelectasis. Overall patient is mentating well and is more oriented than she was at previous admission, she is noted with very dry lips and mucous membranes, abdomen is softly distended, tympany with percussion, no rebound and without peritonitic signs. She is tender in the epigastrium area. patient will be admitted with broad spectrum antibiotics provide IVF with continued resuscitation guided towards MAP and UO. Follow pancreatitis. Appreciate surgical evaluatioin and assistance. Vasopressors will be administered, consider PICC placement vs. CVL as she did need dialysis on last admission. Allergies Allergy/AdvReac Type Severity Reaction Status Date / Time No Known Allergies Allergy Unverified 01/15/23 17:50 Home Medications Medication Instructions Recorded Confirmed Type apixaban 5 mg tablet (Eliquis) 5 mg PO BID #60 tabs 01/12/23 01/15/23 Rx levofloxacin 750 mg tablet 750 mg PO Q48H #3 tabs 01/12/23 01/15/23 Rx methimazole 5 mg tablet 5 mg PO DAILY #30 tabs 01/12/23 01/15/23 Rx acetaminophen 325 mg tablet 650 mg PO Q6 PRN Fever Or Pain 01/15/23 01/15/23 History amiodarone 200 mg tablet 200 mg PO QAM 01/15/23 01/15/23 History diclofenac sodium 1 % topical gel 2 g topical QID 01/15/23 01/15/23 History magnesium oxide 400 mg (241.3 mg 400 mg PO QAM 01/15/23 01/15/23 History magnesium) tablet menthol 0.44 %-zinc oxide 20.6 % 1 applic topical TID 01/15/23 01/15/23 History topical ointment (Calmoseptine) metoprolol succinate 50 mg 50 mg PO AMHS 01/15/23 01/15/23 History tablet,extended release 24 hr oxycodone 5 mg tablet 5 mg PO Q6 PRN pain,moderate 01/15/23 01/15/23 History oxycodone 5 mg tablet 10 mg PO Q6 PRN pain,severe 01/15/23 01/15/23 History sennosides 8.6 mg-docusate sodium 1 tab PO AMHS 01/15/23 01/15/23 History 50 mg tablet (Senokot-S) sertraline 50 mg tablet 50 mg PO QAM 01/15/23 01/15/23 History Patient History Medical History Ambulatory dysfunction d/t MS Depression History of claustrophobia Hypertension Multiple sclerosis Surgical History Hx laparoscopic cholecystectomy (12/10/22) Laparoscopic cholecystectomy with extensive lysis of adhesions, please add modifier for extensive difficulty and increased length of the procedure. Social History Smoking Status: Former smoker Smoking End Date: 1989; Second Hand Exposure: No; Do You Dip or Chew Tobacco: No; Tobacco Cessation Education Requested by Patient: No Hx Alcohol Use: No Hx Substance Use: No Preferred Language: Urdu Communication Ability: Effective Visual Impairment: No Limitations Clinical Education Consultant Required: No Beliefs That Will Affect Care: None marital status: Single Current Living Situation: [facility] current occupational status: retired Other Information That Helps Us Care for You: No Feels Safe at Home: Yes Safety Concerns: Feels Safe At This Time Assistive Devices: Glasses, Walker and Wheelchair Review of Systems Review of Systems: REVIEW OF SYSTEMS: Constitutional: No fever, sweats or chills Eyes: No diplopia, no worsening or blurred vision ENT: normal hearing, no trouble swallowing Respiratory: No cough, sputum, dyspnea at rest or on exertion Cardiovascular: No chest pain, tightness or palpitations Abdomen: (+) pain, No nausea, vomiting, diarrhea or constipation Musculoskeletal: (+) chronic weakness and leg pain, Neurologic: (+) MS, weakness, NO numbness/tingling, or balance problems Physical Exam Physical Exam: PHYSICAL EXAM: General: awake, alert, appropriate responses Head: Normocephalic, atraumatic ENT: PERRLA, EOMI, no pharyngeal exudate, mucous membranes dry Neuro: AAO x 3, speech clear and appropriate, strength intact bilaterally 5/5, sensation intact and equal all extremities and dermatomes, no pronator drift Chest: equal rise and fall of the chest, no accessory muscle use, no heaves or thrills, decreased in bases LT>RT Cardiac: Irregular rate and rhythm, telemetry reviewed, skin warm dry, cap refill <3 seconds, peripheral pulses +2 no JVD, no murmur, trace edema GI: NABS x 4 quadrants, soft, tender to palpation epigastrium, no rebound, guarding or tenderness : Tomlinson to gravity, Skin: small decub present on admission to sacrum, no drainage Results & Data Results & Data Vital Signs (Past 12 Hours) Vital Signs Temp Pulse Pulse Resp BP BP Pulse Ox 01/15/23 20:12 102 H 01/15/23 18:08 86 26 H 98/69 L 94 01/15/23 17:31 88 24 86/42 L 93 01/15/23 17:40 88 28 H 98/40 L 97 01/15/23 17:18 82 24 91/43 L 97 01/15/23 16:32 82 28 H 96 01/15/23 16:45 89 01/15/23 16:32 37.7 C H 88 24 71/37 L 92 O2 Del Method 01/15/23 20:12 01/15/23 18:08 Room Air 01/15/23 17:31 Room Air 01/15/23 17:40 Room Air 01/15/23 17:18 Room Air 01/15/23 16:32 Room Air 01/15/23 16:45 01/15/23 16:32 Room Air Laboratory Results Abnormal lab results 01/15/23 01/15/23 01/15/23 Range/Units 16:48 16:49 16:49 WBC 34.17 H* (4.8-10.8) K/ul RBC 3.78 L (4.20-5.40) M/uL Hgb 10.7 L (12.0-16.0) g/dl Hct 33.0 L (37.0-47.0) % RDW Std Deviation 46.4 H (36.4-46.3) fL Plt Count 431 H (130-400) K/uL MPV 9.3 L (9.4-12.4) fL Neutrophils # (Manual) 20.84 H (1.40-6.50) K/uL Total Absolute Neuts 20.84 H (1.4-6.5) K/uL Total Abs Lymphocytes 11.28 H (1.2-3.4) K/uL Monocytes # (Manual) 1.37 H (0.11-0.59) K/uL Eosinophils # (Manual) 0.68 H (0-0.50) K/uL PT 13.6 H (9.0-12.0) Seconds INR 1.3 H (0.9-1.1) APTT 39.1 H (21.0-31.0) Seconds Sodium (136-145) mmol/L Anion Gap (3-11) BUN (6-23) mg/dl Creatinine (0.6-1.2) mg/dl Glucose (70-99(Fasting)) mg/dl Lactate 2.1 H* (0.4-2.0) mmol/L Calcium (8.6-10.3) mg/dl Troponin I High Sens (0-14) pg/ml Albumin (3.4-5.0) gm/dl Globulin (2.5-4.0) gm/dl Albumin/Globulin Ratio (0.9-2) Lipase (11-82) U/L Procalcitonin (0-0.5) ng/ml 01/15/23 01/15/23 Range/Units 16:49 16:49 WBC (4.8-10.8) K/ul RBC (4.20-5.40) M/uL Hgb (12.0-16.0) g/dl Hct (37.0-47.0) % RDW Std Deviation (36.4-46.3) fL Plt Count (130-400) K/uL MPV (9.4-12.4) fL Neutrophils # (Manual) (1.40-6.50) K/uL Total Absolute Neuts (1.4-6.5) K/uL Total Abs Lymphocytes (1.2-3.4) K/uL Monocytes # (Manual) (0.11-0.59) K/uL Eosinophils # (Manual) (0-0.50) K/uL PT (9.0-12.0) Seconds INR (0.9-1.1) APTT (21.0-31.0) Seconds Sodium 134 L (136-145) mmol/L Anion Gap 12 H (3-11) BUN 46 H (6-23) mg/dl Creatinine 2.39 H D (0.6-1.2) mg/dl Glucose 115 H (70-99(Fasting)) mg/dl Lactate (0.4-2.0) mmol/L Calcium 7.8 L (8.6-10.3) mg/dl Troponin I High Sens 16.7 H (0-14) pg/ml Albumin 2.5 L (3.4-5.0) gm/dl Globulin 4.3 H (2.5-4.0) gm/dl Albumin/Globulin Ratio 0.6 L (0.9-2) Lipase 287 H (11-82) U/L Procalcitonin 0.94 H (0-0.5) ng/ml Diagnostic Findings Chest X-Ray 01/15/23 16:50 XR chest 1V not portable HISTORY: 72 years-old Female Sepsis acute sepsis COMPARISON: Chest radiograph 12/26/2022 TECHNIQUE: AP view of the chest FINDINGS: Cardiac silhouette is enlarged. Status post removal of the hemodialysis c atheter. No pneumothorax. Left greater than right pleural effusions with dense left basilar consolidation. Bones appear grossly intact. IMPRESSION: 1. Cardiomegaly without overt pulmonary edema. 2. Layering left pleural effusion with left basilar predominant consolidation suggestive of atelectasis versus pneumonia. ACT 112: Negative or not required by law. The above report was generated using voice recognition software. It may contain grammatical, syntax or spelling errors. Electronically signed by: Nick Stone M.D. 01/15/2023 5:30 PM Abdomen/Pelvis CT 01/15/23 17:[address] WITHOUT CONTRAST CT DOSE: 762.37 mGy.cm HISTORY: Acute fever with generalized abdominal pain status post cholecystectomy. fever, SP adele TECHNIQUE: Multiaxial CT images of the abdomen and pelvis were performed without contrast. A dose lowering technique was utilized adhering to the principles of ALARA. COMPARISON STUDY: 12/31/2022, 12/17/2022 FINDINGS: Small to moderate left pleural effusion with left basilar consolidation has progressively worsened from prior. Trace right pleural effusion with moderate basilar atelectasis. Limited exam without the use of IV contrast. Upper abdominal ascites has increased within the abdominal left upper quadrant and perisplenic distribution with mild mass effect upon the adjacent spleen. Unremarkable adrenal glands. Severe pancreatitis redemonstrated with similar appearance of the interstitial and peripancreatic inflammation. Peripancreatic fluid collections are again noted, suboptimally evaluated without the use of IV contrast. 2.5 cm collection adjacent to the pancreatic head on image 179 previously measured 3.9 cm. A 3.4 cm fluid attenuating structure within the abdominal left upper quadrant is new from prior, possibly loculated ascites versus acute peripancreatic fluid collection. Unremarkable liver. Intrahepatic and extrahepatic pneumobilia is redemonstrated with a common bile duct stent in place. Air and fluid-filled structure within the tima hepatis measures 5.4 x 2.7 cm on image 138 which is similar in appearance and size to the 12/31/2022 exam. A right subhepatic percutaneous drainage catheter is in unchanged positioning. Decreased subcutaneous collection adjacent to the catheter tract. Numerous nonobstructing bilateral renal calculi are noted measuring up to 11 mm on the left 11 mm on the right. Mild nonspecific bilateral perinephric stranding. No ureteral calculi or hydronephrosis. Unremarkable urinary bladder and uterus. Atherosclerosis aorta. Wall thickening of the duodenum is likely reactive. No bowel obstruction or bowel wall thickening. Unremarkable soft tissues. No acute fracture. IMPRESSION: 1. Redemonstration of severe acute pancreatitis which appears similar to the 12/31/2022 exam. Peripancreatic fluid collections are suboptimally evaluated without the use of IV contrast however the dominant collection adjacent to the pancreatic head has decreased in size. 2. Postoperative changes of prior cholecystectomy with air and fluid-filled structure again noted within the tima hepatis, possibly representing residual gallbladder versus postoperative fluid collection. 3. Common bile duct stent in satisfactory positioning with pneumobilia. 4. Unchanged positioning of the right subhepatic percutaneous drainage catheter. 5. Bilateral nephrolithiasis without ureteral calculi or hydronephrosis. 6. Moderate left pleural effusion has increased in size with progressive left basilar consolidation suggestive of atelectasis versus pneumonia. 7. Increased amount of abdominal left upper quadrant ascites. ACT 112: Negative or not required by law. The above report was generated using voice recognition software. It may contain grammatical, syntax or spelling errors. Electronically signed by: Nick Stone M.D. 01/15/2023 6:48 PM Medications Administered Home Medications apixaban 5 mg tablet (Eliquis) 5 mg PO BID #60 tabs 01/12/23 [Rx Confirmed 01/15/23] levofloxacin 750 mg tablet 750 mg PO Q48H #3 tabs 01/12/23 [Rx Confirmed 12/30 04/22] methimazole 5 mg tablet 5 mg PO DAILY #30 tabs 01/12/23 [Rx Confirmed 01/15/23] acetaminophen 325 mg tablet 650 mg PO Q6 PRN Fever Or Pain 01/15/23 [History Confirmed 01/15/23] amiodarone 200 mg tablet 200 mg PO QAM 01/15/23 [History Confirmed 01/15/23] diclofenac sodium 1 % topical gel 2 g topical QID 01/15/23 [History Confirmed 01/15/23] magnesium oxide 400 mg (241.3 mg magnesium) tablet 400 mg PO QAM 01/15/23 [History Confirmed 01/15/23] menthol 0.44 %-zinc oxide 20.6 % topical ointment (Calmoseptine) 1 applic topical TID 01/15/23 [History Confirmed 01/15/23] metoprolol succinate 50 mg tablet,extended release 24 hr 50 mg PO AMHS 01/15/23 [History Confirmed 01/15/23] oxycodone 5 mg tablet 5 mg PO Q6 PRN pain,moderate 01/15/23 [History Confirmed 01/15/23] oxycodone 5 mg tablet 10 mg PO Q6 PRN pain,severe 01/15/23 [History Confirmed 01/15/23] sennosides 8.6 mg-docusate sodium 50 mg tablet (Senokot-S) 1 tab PO AMHS 01/15/23 [History Confirmed 01/15/23] sertraline 50 mg tablet 50 mg PO QAM 01/15/23 [History Confirmed 01/15/23] Active Medications Acetaminophen (Acetaminophen 325 Mg Tab) 650 mg PO Q6 PRN PRN Reason: Fever Or Pain Stop: 02/14/23 23:34 Amiodarone HCl (Amiodarone 200 Mg Tab) 200 mg PO QAM [facility] Stop: 02/15/23 08:59 Apixaban (Apixaban 5 Mg Tablet) 5 mg PO BID [facility] Stop: 02/15/23 08:59 Calamine/Phenol (Menthol-Zinc Oxide 360 Appln/120 Gm Tube) 1 appln EXT TID [facility] Stop: 02/15/23 08:59 Vancomycin HCl 1,750 mg/ (Sodium Chloride) 535 mls @ 200 mls/hr IV NOW ONE; Protocol Stop: 01/16/23 00:25 Last Admin: 01/15/23 22:01 Dose: 200 mls/hr Norepinephrine Bitartrate (Levophed/D5w) 4 mg in 250 mls @ 17.231 mls/hr IV .[id number] [facility]; Protocol Stop: 02/14/23 22:59 Last Admin: 01/15/23 23:48 Dose: 0.05 mcg/kg/min, 17.2 mls/hr Piperacillin Sod/Tazobactam (Sod 4.5 gm/ Dextrose) 120 mls @ 30 mls/hr IV Q8H [facility]; Protocol Stop: 01/26/23 03:59 Lactated Ringer's (Lr) 500 mls @ 999 mls/hr IV .Q31M ONE Stop: 01/16/23 00:05 Last Admin: 01/15/23 23:53 Dose: 999 mls/hr Lactated Ringer's (Lr) 1,000 mls @ 120 mls/hr IV .Q8H20M [facility] Stop: 02/14/23 23:34 Magnesium Oxide (Magnesium Oxide 400 Mg Tab) 400 mg PO QAM [facility] Stop: 02/15/23 08:59 Methimazole (Methimazole 5 Mg Tablet) 5 mg PO DAILY [facility] Stop: 02/15/23 08:59 Miscellaneous ([facility] Protocol For Hyperglycemia) 1 each N/A ACHS [facility] Stop: 01/18/23 07:29 Miscellaneous Information (Vancomycin Consult Active) 1 each N/A UD PRN PRN Reason: Consult Stop: 02/14/23 21:31 Sertraline HCl (Sertraline Hcl 50 Mg Tablet) 50 mg PO QAM [facility] Stop: 02/15/23 08:59 ECG Additional Comments: Normal sinus rhythm Prolonged QT Abnormal ECG When compared with ECG of 29-DEC-2022 17:42, Sinus rhythm has replaced Atrial flutter Vent. rate has decreased BY 49 BPM T wave inversion no longer evident in Inferior leads Nonspecific T wave abnormality no longer evident in Anterolateral leads Coding Level of Care Code 62548 CRITICAL CARE 1ST 30-74M Diagnoses Sepsis A41.9 Sepsis acute organ dysfunction status: unspecified Sepsis type: sepsis due to unspecified organism Acute pancreatitis K85.90 Acute pancreatitis complication: unspecified Pancreatitis type: unspecified pancreatitis type Paroxysmal atrial fibrillation I48.0 Hx laparoscopic cholecystectomy Z90.49 SAMMY (acute kidney injury) N17.9 Depression F32.A Multiple sclerosis G35 (1) Sepsis Sepsis acute organ dysfunction status: unspecified Sepsis type: sepsis due to unspecified organism Qualified Code(s): A41.9 - Sepsis, unspecified organism (2) Acute pancreatitis Acute pancreatitis complication: unspecified Pancreatitis type: unspecified pancreatitis type Qualified Code(s): K85.90 - Acute pancreatitis without necrosis or infection, unspecified
[2023-01-15] MEDS ORDERED: STAT IV Infusion **Titration per Protocol STA (22:58)
[2023-01-15] MEDS ORDERED: LACTATED RINGER'S 500 ML IV ONE (23:35)
[2023-01-15] MEDS: NOREPINEPHRINE/D5W 4 MG/250 ML PLCT IV SCH (23:48)
[2023-01-16] MEDS ORDERED: ACETAMINOPHEN 1,000 MG/100 ML VIAL IV PRN (00:15)
[2023-01-16] MEDS: LACTATED RINGER'S 1,000 ML IV SCH ×3 (00:25→16:08)
[2023-01-16 00:33] LABS: BUN Creatinine Ratio 18.3 (10-20); Calcium 7.2 mg/dl (8.6-10.3); Creatinine Clr Calc Pharmacy 22.4 ml/min; Est GFR (African American) 22.5 ml/min; Est GFR (Non-African American) 19.4 ml/min; Potassium 3.6 mmol/L (3.5-5.1)
[2023-01-16 01:24] LABS: Appearance Urine Cloudy (Clear); Bacteria Urine Automated Negative (Negative); Bilirubin Urine Negative (Negative); Blood Urine 2+ (Negative); Color Urine Yellow; Epithelial Cell Urine Auto >30 /lpf (0-5); Glucose Urine UA Negative (Negative); Ketones Urine Negative (Negative); Leukocyte Esterase Urine 2+ (Negative); Nitrite Urine Negative (Negative); Protein Urine 2+ (Negative); RBC Urine Automated 0-4 /hpf (0-4); Specific Gravity Urine 1.015 (1.000-1.030); Urobilinogen Urine Negative (Negative); WBC Urine Automated >30 /hpf (0-5)
--- NOTE | 2023-01-16 01:32 | History and Physical Report ---
DATE OF ADMISSION: 01/15/2023. CHIEF COMPLAINT: Severe sepsis. HISTORY OF PRESENT ILLNESS: A 72-year-old female with past medical history significant for obesity, hypertension, anxiety, chronic neurogenic bladder, osteoporosis, MS as per used to ambulate with a walker before last hospitalization. She was admitted from 12/09/2022 until 12/12/2022 and discharged on 01/12/2023 to [facility]. During last admission, she had pancreatitis. She underwent ERCP with stent placement and also cholecystectomy. The patient was noted to have acute on chronic cholecystitis. Her postoperative course was complicated with biliary leak. She had a MIMI drain in place, which she is still in there. She also developed SAMMY during last hospitalization and requiring dialysis,SAMMY thought to be from sepsis and IV contrast and medications.At discharge kidney function improved and not requiring dialysis The patient was complaining of back pain and belly pain yesterday in the care home and the lab work was done and was abnormal and sent in here. The patient is tachycardic, hypotensive in the ER. White count is 34, hemoglobin 10.7, creatinine is 2.3, it was 1.7 at the time of discharge. Procalcitonin 0.9. Lipase 287. COVID negative. CT abdomen and pelvis showing severe acute pancreatitis similar to 12/31/2022. Peripancreatic fluid collections are suboptimally evaluated without IV contrast use. Fluid-filled structures are again noted with portal hypertension, possibly representing residual gallbladder versus postoperative fluid collection. Common bile duct stent in satisfactory position . Also found to have moderate left pleural effusion and increased size with progressive left basilar consolidation suggestive of atelectasis versus pneumonia. he also has decubitus ulcers. Evaluated by Surgery and doesn't think patient has acute abdomen or peritonitis. . Last admission, urine culture grew Enterococcus and Pseudomonas. She was discharged home on Levaquin.The patient's in the room,worried about decubitus ulcer. As per , she was not at all ambulating since discharge. The patient is alert and oriented to name and place, could tell her date of , but could not tell today's date, could tell today's month, but could not tell the year. She has dry mouth. Currently, denies any headache. No blurred visions, no runny nose, no sore throat, no cough. says she does coughing sometimes. Denies any chest pain or shortness of breath. Denies any abdominal pain at this time. No nausea at this time. She is incontinence with bowel and bladder as per the .She is tachycardic and hypotensive even after aggressive fluids. ALLERGIES: No known drug allergies. PAST MEDICAL HISTORY: As mentioned above. PAST SURGICAL HISTORY: Colonoscopies, cystoscopy, EGDs, EGD with biopsy, parathyroidectomy, tonsillectomy, removal of cervix with cone loop electrode, last admission had a cholecystectomy. MEDICATIONS: Tylenol 650 mg p.o. q. 6 hours p.r.n., amiodarone 200 mg p.o. a.m., Eliquis 5 mg p.o. b.i.d., diclofenac sodium 2 gm topical q.i.d., Levaquin 750 mg p.o. q. 48 hours, magnesium oxide 400 mg p.o. a.m., Calmoseptine 1 application topical t.i.d., methimazole 5 mg p.o. daily, metoprolol succinate 50 mg p.o. b.i.d., oxycodone 10 mg p.o. q. 6 hours p.r.n. for severe pain, oxycodone 5 mg p.o. q. 6 hours p.r.n. for moderate pain, Senokot-S 1 tablet p.o. b.i.d., sertraline 50 mg p.o. daily. FAMILY HISTORY: Significant for brother had liver and pancreatic cancer, father had lung cancer, mother had of colon cancer at age 51, aunt has diabetes, maternal grandmother has diabetes, uncle has diabetes. SOCIAL HISTORY: Quit smoking in 2003, smoked quarter pack a day for 20 years. No alcohol use. Currently, no drug use. REVIEW OF SYSTEMS: As per HPI. Could not get complete ROS somewhat slightly confused. PHYSICAL EXAMINATION: GENERAL: The patient is alert and awake, oriented to name and place. HEENT: Pupils equal, round and reactive to light. No facial droop seen. Oral mucosa dry. NECK: No neck masses. No JVD seen. CARDIOVASCULAR: S1 and S2 heard, tachycardia. No murmurs. RESPIRATORY SYSTEM: Normal AP diameter. Mild tachypnea. No wheezing. No crackles. ABDOMEN: Soft, bowel sounds present, nontender, no distention. MIMI drain seen. There is no erythema, tenderness at the site. CENTRAL NERVOUS SYSTEM: Alert and oriented to name and place. Obeys simple commands. No facial droop. Speech is okay. Moves extremities. EXTREMITIES: No edema or erythema seen. LABORATORY DATA: WBC 34, hemoglobin 10.7, hematocrit 33, platelets 431. PT 13.6, INR 1.3, APTT 39.1. Sodium 134, potassium 3.5, chloride 108, bicarbonate 22, BUN 46, creatinine 2.39, serum glucose 115. Lactate 2.1, repeat is 1.7, calcium 7.8, magnesium 1.8, total bilirubin 0.7, AST 19, ALT 13, alkaline phosphatase 62. Troponin I high sensitivity 16.7. Lipase 287. Procalcitonin 0.9. SARS-CoV-2 rapid test negative. IMAGING DATA: CT of abdomen and pelvis without contrast shows redemonstration of severe acute pancreatitis, which appears similar to the 12/31/2022 exam. Peripancreatic fluid collections are suboptimally evaluated without the use of IV contrast; however, the abdominal collection adjacent to the pancreatic head has decreased in size. Postoperative change of prior cholecystectomy with air and fluid-filled structure again noted within the tima hepatis, possibly representing residual gallbladder versus postoperative fluid collection. Common bile duct stent in satisfactory position with pneumobilia, unchanged positioning of the right subhepatic percutaneous drainage catheter, bilateral nephrolithiasis without ureteral calculi, hydronephrosis, moderate left pleural effusion has increased in size, progressive left basilar consolidation suggestive of atelectasis versus pneumonia. Increased amount of abdominal left upper quadrant ascites. Chest x-ray, cardiomegaly , layering of left pleural effusion with left basilar predominant consolidation suggestive of atelectasis versus pneumonia. EKG, normal sinus rhythm, rate of 84. Prolonged QTc of 550. ASSESSMENT AND PLAN: This is a 72-year-old female, who presents with severe sepsis. 1. Severe sepsis. The patient was recently in the hospital, prolonged stay from 12/09/2022 through 01/12/2023. During the last admission, she was treated for pancreatis and necrotizing acute on chronic cholecystitis, status post ERCP, stent placement, cholecystectomy, postoperative high biliary leak, status post MIMI drain in place and hospitalization was complicated by acute kidney injury requiring dialysis and also, looks like she also had episode of rapid atrial fibrillation with RVR during hospitalization, seen by Cardiology and started on metoprolol, amiodarone and Eliquis, was sent to [facility] on 01/12/2023, comes back with abdominal pain and found to have abnormal labs. In the ER, she was hypotensive, tachycardic, White count is 34. Creatinine is 2.3, was 1.7 at the time of discharge. Procalcitonin 0.9. CT abdomen and pelvis is showing some pancreatic fluid, seemed to be somewhat decreased_ and also left lung consultation versus atelectasis and moderate left pleural effusion, and also ascites, seen by surgery,no acute abdomen or peritonitis at this time per surgerPatinet hypotensive and tacycardia even after aggressive fluids. Ordered another litre fluid bolus but still BP not improved. Notified ICU. Started on pressors and transferred to ICU. On empiric antibiotics, zosyn and vancomycin... On last admission, culture grew pseudomonas and enterococcus. Follow the cultures. Closely monitor in the ICU. 2.Acute kidney injury with creatinine of 2.3. Last admission, she required dialysis secondary to sepsis and contrast _ poor oral intake and losartan. Possibly from sepsis. Management as above. Avoid nephrotoxic agents. If worsening, we will consult nephrology. 4. History of prolonged QTc of 550. Avoid qt prolonging meds. Close Monitor. follow repeat ekg. 5. History of atrial fibrillation, currently in sepsis. Holding Lopressor and amiodarone. Continue Eliquis. Monitor heart rates. 6. History of hypothyroidism. Continue with methimazole. 7. History of prediabetes. Follow the labs. 8. Anxiety. Continue Zoloft. 9. History of MS. Follow up as outpatient. Used to ambulate with a walker prior to last admission, pt/ot when stable.. 10. Deep venous thrombosis prophylaxis. Continue on Eliquis. DISPOSITION: Closely monitor in the ICU. Level 1 full code. Job ID: [id number] [facility]
[2023-01-16] MEDS: PIPERACILLIN/TAZOBACTAM 4.5 GM in DEXTROSE 5% 100 ML IV SCH ×3 (04:26→19:42)
--- NOTE | 2023-01-16 04:27 | Communication Note ---
Date of Service: January 16, 2023 Patient revisited at bedside and she is noted to be sleeping comfortably in bed. I discussed with nursing staff and the patient's blood pressure has improved since arrival to the intensive care unit. Her blood pressure has been responsive to intravenous fluids as well as Levophed which is currently running at 0.5 mcg/kg/min. The ICU nurse notes that she has not had to increase the Levophed and patient's urine output has improved since arrival to the intensive care unit. Was also drawn to my attention that upon arrival to the intensive care unit earlier the skin stitch holding patient's right upper quadrant drain was noted to have been torn prior to arrival to the ICU. The drain was examined and noted to not hold suction any longer. I discussed this with my attending physician and he noted to just leave the drain in place until the morning and a decision will be made about further management of this.
[2023-01-16] MEDS: NOREPINEPHRINE/D5W 4 MG/250 ML PLCT IV SCH ×4 (04:43→19:30)
[2023-01-16 05:27] LABS: Hematocrit (blood only) 30.1 % (37.0-47.0); Hemoglobin 9.7 g/dl (12.0-16.0); Mean Corpuscular Hemoglobin 28.5 pg (25.0-34.0); Mean Corpuscular Hgb Conc 32.2 g/dL (32.0-36.0); Mean Corpuscular Volume 88.5 fL (80.0-100.0); Mean Platelet Volume 8.9 fL (9.4-12.4); Platelet Count 421 K/uL (130-400); RDW Coefficient of Variation 14.4 % (11.5-14.5); RDW Standard Deviation 46.5 fL (36.4-46.3); White Blood Count 39.88 K/ul (4.8-10.8)
[2023-01-16 05:40] LABS: Albumin Level 2.1 gm/dl (3.4-5.0); Bilirubin Direct 0.2 mg/dl (0-0.2); Bilirubin,Total 0.7 mg/dl (0.2-1.0); Magnesium 1.6 mg/dl (1.7-2.4); Phosphorus 4.4 mg/dl (2.5-4.9); Total Protein 5.9 gm/dl (6.0-8.3)
[2023-01-16 05:44] LABS: Basophils # (auto) 0.13 K/uL (0-0.2); Basophils % (auto) 0.3 %; Echinocytes 2+; Eosinophils # (auto) 0.35 K/uL (0-0.50); Eosinophils % (auto) 0.9 %; Immature Granulocytes # (auto) 0.52 K/uL (0.01-0.20); Immature Granulocytes % (auto) 1.3 %; Lymphocytes # (auto) 3.65 K/uL (1.2-3.4); Lymphocytes % (auto) 9.2 %; Monocytes # (auto) 1.92 K/uL (0.11-0.59); Monocytes % (auto) 4.8 %; Neutrophils # (auto) 33.31 K/uL (1.40-6.50); Neutrophils % (auto) 83.5 %; Polychromasia 1+
[2023-01-16] MEDS: MAGNESIUM SULFATE / D5W 1 GM/100 ML BAG IV SCH ×4 (07:07→12:18)
--- NOTE | 2023-01-16 07:25 | Surgery Progress Note ---
Date of Service January 16, 2023 Assessment & Plan (1) Sepsis: Plan: Severe acute pancreatitis with pseudocyst, peripancreatic fluid, ascites, Left pleural effusion with consolidation Has air-fluid area in the subhepatic space with shown drain in place and stent in place This is essentially the same as it was 2 to [address] scan It appears her pancreatitis with peripancreatic fluid and inflammation and ascites is worse This obviously could indicate necrotizing pancreatitis and be a source of the sepsis Pleural effusion on the left side with lung consolidation could also be a source Her MIMI drain was pulled loose with her positioning and I actually pulled it some and cut it off and placed a safety pin Will evaluate for leakage and may consider removal I do not feel acute surgical intervention is indicated as she would not tolerate this well Treatment may be aggressive interventional radiology and GI evaluation with possible reendoscopy This would likely be performed at a tertiary care center Obviously continue fluid resuscitation and IV antibiotics at the present time Admission and Anticipated Discharge Date Admission Date: January 15, 2023 Subjective 72-year-old [facility] Admitted in early November with what appeared to be pancreatitis likely from gallstones and cholangitis Undergoing on 12/10/2022 ERCP with stent placement Laparoscopic cholecystectomy which showed severe scar tissue at the tima hepatis leaving a small portion of gallbladder with large drain placement- subsequent bile leak which appears to have subsided continues to have drain in place Patient developed acute renal failure requiring dialysis which was then able to be stopped Also history of atrial fibrillation on Eliquis Results & Data Vital Signs (Past 12 Hours) Vital Signs Temp Pulse Pulse Resp BP BP Pulse Ox 01/16/23 06:15 36.6 C 80 19 92/55 L 91 01/16/23 06:00 36.6 C 80 20 97/65 L 91 01/16/23 05:45 36.6 C 79 20 104/61 01/16/23 05:30 36.6 C 80 19 130/54 L 92 01/16/23 05:15 36.6 C 82 20 116/69 01/16/23 00:00 01/16/23 04:45 36.8 C 84 25 H 104/65 01/16/23 04:30 36.9 C 84 21 139/61 91 01/16/23 04:00 36.8 C 83 20 94/53 L 01/16/23 03:45 36.7 C 85 20 130/64 92 01/16/23 03:30 116/65 01/15/23 23:35 01/15/23 23:59 133 H 01/16/23 03:30 36.7 C 85 20 116/65 91 01/16/23 03:15 36.7 C 84 20 101/60 01/16/23 03:00 36.7 C 86 21 106/69 91 01/16/23 02:45 36.8 C 87 21 95/54 L 01/16/23 02:15 36.8 C 89 22 88/51 L 90 01/16/23 02:00 37.0 C 90 21 117/65 01/16/23 01:45 37.3 C 88 22 97/62 L 01/16/23 01:30 37.4 C 89 21 87/61 L 01/16/23 01:15 37.4 C 90 18 96/61 L 01/16/23 00:45 37.4 C 91 H 23 83/48 L 01/16/23 00:30 37.1 C 93 H 30 H 109/75 92 01/16/23 00:00 92 H 32 H 95/46 L 93 01/15/23 23:52 36.7 C 128 H 20 68/50 L 94 01/15/23 22:38 119 H 22 78/36 L 92 01/15/23 20:12 102 H Pulse Ox O2 Del Method O2 Del Method 01/16/23 06:15 01/16/23 06:00 01/16/23 05:45 01/16/23 05:30 01/16/23 05:15 01/16/23 00:00 Room Air 01/16/23 04:45 01/16/23 04:30 01/16/23 04:00 01/16/23 03:45 01/16/23 03:30 01/15/23 23:35 91 Room Air 01/15/23 23:59 01/16/23 03:30 01/16/23 03:15 01/16/23 03:00 01/16/23 02:45 01/16/23 02:15 01/16/23 02:00 01/16/23 01:45 01/16/23 01:30 01/16/23 01:15 01/16/23 00:45 01/16/23 00:30 01/16/23 00:00 01/15/23 23:52 Room Air 01/15/23 22:38 Room Air 01/15/23 20:12 PG Care Time/CCT Total # of Minutes Spent Total Time Spent with Patient: Total time spent is greater than 50% in coordination of care (as documented) at patient's floor/unit and/or counseling patient: Coding Level of Care Code None Diagnoses Sepsis A41.9 Sepsis acute organ dysfunction status: unspecified Sepsis type: sepsis due to unspecified organism (1) Sepsis Sepsis acute organ dysfunction status: unspecified Sepsis type: sepsis due to unspecified organism Qualified Code(s): A41.9 - Sepsis, unspecified organism
[2023-01-16] MEDS ORDERED: ICU Protocol for HYPERglycemia SCH (07:30)
[2023-01-16] MEDS ORDERED: GLUCOSE 10 TAB/TUBE PO PRN (08:05)
[2023-01-16] MEDS ORDERED: CARBOHYDRATES FOR HYPOGLYCEMIA PO PRN (08:05)
[2023-01-16] MEDS ORDERED: GLUCAGON FOR INJ 1 MG VIAL SQ PRN (08:05)
[2023-01-16] MEDS ORDERED: GLUCOSE 40% GEL 15 GM TUBE PO PRN (08:05)
[2023-01-16] MEDS ORDERED: DEXTROSE 50% 50 ML SYRINGE IV PRN (08:05)
[2023-01-16] MEDS: INSULIN ASPART PER UNIT CHARGE SC SCH ×4 (08:17→23:46)
[2023-01-16] MEDS: AMIODARONE 200 MG TAB PO SCH (09:20)
[2023-01-16] MEDS: methIMAzole 5 MG TABLET PO SCH (09:20)
[2023-01-16] MEDS: MENTHOL-ZINC OXIDE 360 APPLN/120 GM TUBE EXT SCH ×3 (09:20→23:05)
[2023-01-16] MEDS: SERTRALINE HCL 50 MG TABLET PO SCH (09:20)
--- NOTE | 2023-01-16 09:47 | Critical Care Progress Note ---
Date of Service January 16, 2023 Assessment & Plan (1) Sepsis: (2) Acute pancreatitis: (3) Paroxysmal atrial fibrillation: (4) Hx laparoscopic cholecystectomy: (5) SAMMY (acute kidney injury): (6) Depression: (7) Multiple sclerosis: Plan Reason Critically Ill: 72 YOF admitted to ICU for shock multifactorial to include sepsis and hypovolemia. Sources to include abdomen/urine/pneumonia. Neuro - MS, generalized weakness, depression, CAM ICU: Negative - No acute needs - Generalized pain- Tylenol, Oxy IR 5 q6 prn severe pain Cardiac - Shock, PAF, HTN: Improved with Levophed -Probable intra-abdominal sepsis in origin, cannot exclude acute on chronic pancreatitis as contributing -PICC team unable to identify adequate size vessel for access - For her PAF she is on amiodarone- will continue- hold her Metoprolol- was in f lutter on arrival and re-verted back to NSR following volume - Hold her Apixaban for likely need for procedures Respiratory - Pleural Effusion with compressive atelectasis - Can't exclude pneumonia however she is without hypoxia or sputum production -After discussion with patient and family we will hold on thoracentesis at present moment - Less likely source at this time GI - Pancreatitis acute on chronic, subhepatic drain s/p colectomy - Noted fluid collections as well as drain output- her MIMI (sub-hepatic) is noted with light brown creamy colored questioning stool vs. other -Discussed with general surgery and gastroenterology, feel radiographically the pancreatitis has improved from prior imaging studies - Currently without peritonitis or free air noted - May have implications for long-term nutrition needs RENAL/LYTES - SAMMY, Bilateral nephrolithiasis without hydro - Likely pre-renal secondary to hypovolemia/sepsis - Currently maintaining urine output, hopefully Cr will Jevon - ICU electrolyte protocol - As above - Tomlinson placed for accurate IN/Out and resuscitation goals ENDO - HX of hyperthyroidism - TSH normal - Continue Methimazole - Random cortisol adequate HEME - Leukocytosis, chronic anemia - Supportive care- follow see ID below ID - Septic shock- sources intraabdominal vs. urine vs. pleural or combination - She is without fever or lactate but is noted with tachycardia, increase in WBC count, elevated PCT and SAMMY - Suspect intraabdominal source. - Blood with fungal, urine, all pending - reviewed 01/08 urine culture: dumont sensitive P. Aeruginosa, greater than 100 K CFU, 50 K CFU Enterococcus faecalis: Pansensitive - Continue with Zosyn and Vancomycin- previous culture data reviewed - Consider adding back antifungal coverage if clinical course worsens LINES/IV ACCESS - PIV x2, Tomlinson catheter Continue use of these lines Depending vasopressor requirements- consider CVL vs. PICC DVT PROPHYLAXIS - SCDS chemoprophylaxis once clinical course becomes clear- currently holding DOAC DISPO - ICU until hemodynamics are stable Had extensive discussion with patient, significant other, sister and daughter at bedside. Family is concerned about patient's ability to receive care. They are requesting transfer to different facility. Their preference was first [facility] and that was unavailable [facility]. I was able to contact [facility], I spoke with their cheese cooker briefly who deferred to general surgery. I was eventually able to speak with Rodríguez Dillard of general surgery who was willing to accept the patient in transfer to the ICU. [facility] medical records, . I have personally spent 85 minutes of critical care time in the direct management of this patient. This is a life/limb threatening event. This includes time spent evaluating patient, direct bedside care, chart review, placing orders, interpretation of diagnostic studies, discussion with consultants, patient, and/or family members regarding treatment decisions, as well as other required patient management activities. This time is exclusive of all separately billable procedures, and teaching time and separate from and in addition to any other critical care service time. Admission and Anticipated Discharge Date Admission Date: January 15, 2023 Subjective Patient's pain is well controlled. She does have subjective anorexia. Feels better than she did yesterday. Had extensive discussion with family and patient at bedside regarding treatment options. At this time the decision is to hold on possible IR drainage of intra-abdominal fluid as well as thoracentesis to evaluate for other sources of infection aside from probable intra-abdominal source. Family desires transfer to different facility, they report concerns over care from previous admission. They requested to look at [facility] first and if transfer is unavailable there they would strongly consider [facility] in [place]. Review of Systems Review of Systems: As per the HPI, denies chest pain shortness of breath Physical Exam Physical Exam: General: Alert. nontoxic. Skin: Warm, dry, Head: Atraumatic Ears, nose, mouth and throat: airway patent Cardiovascular: Normal peripheral perfusion Respiratory: no respiratory distress Gastrointestinal: Non distended, drain in right upper quadrant draining bilious looking fluid from drain and around drain site. Patient is nontender nondistended hypoactive bowel sounds. No guarding no rebound Musculoskeletal: No deformity Results & Data Results & Data Vital Signs (Past 12 Hours) Vital Signs Temp Pulse Pulse Resp BP BP Pulse Ox 01/16/23 09:00 36.5 C 76 19 94/48 L 94 01/16/23 08:45 36.5 C 77 20 111/54 L 93 01/16/23 08:30 36.5 C 78 22 102/53 L 94 01/16/23 08:15 36.5 C 80 22 113/59 L 93 01/16/23 08:00 36.5 C 79 21 119/60 92 01/16/23 07:46 36.4 C L 82 25 H 114/55 L 91 01/16/23 07:31 36.5 C 80 19 105/57 L 91 01/16/23 07:16 36.5 C 83 19 91/58 L 92 01/16/23 06:46 36.7 C 81 20 110/60 91 01/16/23 06:15 36.6 C 80 19 92/55 L 91 01/16/23 06:00 36.6 C 80 20 97/65 L 91 01/16/23 05:45 36.6 C 79 20 104/61 01/16/23 05:30 36.6 C 80 19 130/54 L 92 01/16/23 05:15 36.6 C 82 20 116/69 01/16/23 00:00 01/16/23 04:45 36.8 C 84 25 H 104/65 01/16/23 04:30 36.9 C 84 21 139/61 91 01/16/23 04:00 36.8 C 83 20 94/53 L 01/16/23 03:45 36.7 C 85 20 130/64 92 01/16/23 03:30 116/65 01/15/23 23:35 01/15/23 23:59 133 H 01/16/23 03:30 36.7 C 85 20 116/65 91 01/16/23 03:15 36.7 C 84 20 101/60 01/16/23 03:00 36.7 C 86 21 106/69 91 01/16/23 02:45 36.8 C 87 21 95/54 L 01/16/23 02:15 36.8 C 89 22 88/51 L 90 01/16/23 02:00 37.0 C 90 21 117/65 01/16/23 01:45 37.3 C 88 22 97/62 L 01/16/23 01:30 37.4 C 89 21 87/61 L 01/16/23 01:15 37.4 C 90 18 96/61 L 01/16/23 00:45 37.4 C 91 H 23 83/48 L 01/16/23 00:30 37.1 C 93 H 30 H 109/75 92 01/16/23 00:00 92 H 32 H 95/46 L 93 01/15/23 23:52 36.7 C 128 H 20 68/50 L 94 01/15/23 22:38 119 H 22 78/36 L 92 Pulse Ox O2 Del Method O2 Del Method 01/16/23 09:00 Room Air 01/16/23 08:45 Room Air 01/16/23 08:30 Room Air 01/16/23 08:15 Room Air 01/16/23 08:00 Room Air 01/16/23 07:46 Room Air 01/16/23 07:31 Room Air 01/16/23 07:16 Room Air 01/16/23 06:46 Room Air 01/16/23 06:15 01/16/23 06:00 01/16/23 05:45 01/16/23 05:30 01/16/23 05:15 01/16/23 00:00 Room Air 01/16/23 04:45 01/16/23 04:30 01/16/23 04:00 01/16/23 03:45 01/16/23 03:30 01/15/23 23:35 91 Room Air 01/15/23 23:59 01/16/23 03:30 01/16/23 03:15 01/16/23 03:00 01/16/23 02:45 01/16/23 02:15 01/16/23 02:00 01/16/23 01:45 01/16/23 01:30 01/16/23 01:15 01/16/23 00:45 01/16/23 00:30 01/16/23 00:00 01/15/23 23:52 Room Air 01/15/23 22:38 Room Air Critical Care Results & Data Vital Signs (Past 12 Hours) Vital Signs Temp Pulse Pulse Resp BP BP Pulse Ox 01/16/23 09:00 36.5 C 76 19 94/48 L 94 01/16/23 08:45 36.5 C 77 20 111/54 L 93 01/16/23 08:30 36.5 C 78 22 102/53 L 94 01/16/23 08:15 36.5 C 80 22 113/59 L 93 01/16/23 08:00 36.5 C 79 21 119/60 92 01/16/23 07:46 36.4 C L 82 25 H 114/55 L 91 01/16/23 07:31 36.5 C 80 19 105/57 L 91 01/16/23 07:16 36.5 C 83 19 91/58 L 92 01/16/23 06:46 36.7 C 81 20 110/60 91 01/16/23 06:15 36.6 C 80 19 92/55 L 91 01/16/23 06:00 36.6 C 80 20 97/65 L 91 01/16/23 05:45 36.6 C 79 20 104/61 01/16/23 05:30 36.6 C 80 19 130/54 L 92 01/16/23 05:15 36.6 C 82 20 116/69 01/16/23 00:00 01/16/23 04:45 36.8 C 84 25 H 104/65 01/16/23 04:30 36.9 C 84 21 139/61 91 01/16/23 04:00 36.8 C 83 20 94/53 L 01/16/23 03:45 36.7 C 85 20 130/64 92 01/16/23 03:30 116/65 01/15/23 23:35 01/15/23 23:59 133 H 01/16/23 03:30 36.7 C 85 20 116/65 91 01/16/23 03:15 36.7 C 84 20 101/60 01/16/23 03:00 36.7 C 86 21 106/69 91 01/16/23 02:45 36.8 C 87 21 95/54 L 01/16/23 02:15 36.8 C 89 22 88/51 L 90 01/16/23 02:00 37.0 C 90 21 117/65 01/16/23 01:45 37.3 C 88 22 97/62 L 01/16/23 01:30 37.4 C 89 21 87/61 L 01/16/23 01:15 37.4 C 90 18 96/61 L 01/16/23 00:45 37.4 C 91 H 23 83/48 L 01/16/23 00:30 37.1 C 93 H 30 H 109/75 92 01/16/23 00:00 92 H 32 H 95/46 L 93 01/15/23 23:52 36.7 C 128 H 20 68/50 L 94 01/15/23 22:38 119 H 22 78/36 L 92 Pulse Ox O2 Del Method O2 Del Method 01/16/23 09:00 Room Air 01/16/23 08:45 Room Air 01/16/23 08:30 Room Air 01/16/23 08:15 Room Air 01/16/23 08:00 Room Air 01/16/23 07:46 Room Air 01/16/23 07:31 Room Air 01/16/23 07:16 Room Air 01/16/23 06:46 Room Air 01/16/23 06:15 01/16/23 06:00 01/16/23 05:45 01/16/23 05:30 01/16/23 05:15 01/16/23 00:00 Room Air 01/16/23 04:45 01/16/23 04:30 01/16/23 04:00 01/16/23 03:45 01/16/23 03:30 01/15/23 23:35 91 Room Air 01/15/23 23:59 01/16/23 03:30 01/16/23 03:15 01/16/23 03:00 01/16/23 02:45 01/16/23 02:15 01/16/23 02:00 01/16/23 01:45 01/16/23 01:30 01/16/23 01:15 01/16/23 00:45 01/16/23 00:30 01/16/23 00:00 01/15/23 23:52 Room Air 01/15/23 22:38 Room Air Lab & Micro Results (Past 24 Hours) RBC 3.40 M/uL (4.20-5.40) L 01/16/23 WBC 39.88 K/ul (4.8-10.8) H* 01/16/23 Hgb 9.7 g/dl (12.0-16.0) L 01/16/23 Hct 30.1 % (37.0-47.0) L 01/16/23 MCV 88.5 fL (80.0-100.0) 01/16/23 MCH 28.5 pg (25.0-34.0) 01/16/23 MCHC 32.2 g/dL (32.0-36.0) 01/16/23 RDW Standard Deviation 46.5 fL (36.4-46.3) H 01/16/23 RDW Coefficient of Variation 14.4 % (11.5-14.5) 01/16/23 Plt Count 421 K/uL (130-400) H 01/16/23 MPV 8.9 fL (9.4-12.4) L 01/16/23 Neutrophils (%) (Auto) 83.5 % 01/16/23 Lymphocytes (%) (Auto) 9.2 % 01/16/23 Monocytes # (Auto) 1.92 K/uL (0.11-0.59) H 01/16/23 Eosinophils # (Auto) 0.35 K/uL (0-0.50) 01/16/23 Immature Granulocyte % (Auto) 1.3 % 01/16/23 Neutrophils # (Auto) 33.31 K/uL (1.40-6.50) H 01/16/23 Lymphocytes # (Auto) 3.65 K/uL (1.2-3.4) H 01/16/23 Monocytes # (Auto) 1.92 K/uL (0.11-0.59) H 01/16/23 Eosinophils # (Auto) 0.35 K/uL (0-0.50) 01/16/23 Basophils # (Auto) 0.13 K/uL (0-0.2) 01/16/23 Immature Granulocyte # (Auto) 0.52 K/uL (0.01-0.20) H 01/16 ANC 20.84 K/uL (1.4-6.5) H 01/15/23 ALC 11.28 K/uL (1.2-3.4) H 01/15/23 Neutrophils % (Manual) 61 % 01/15/23 Lymphocytes % (Manual) 4 % 01/15/23 Large Granular Lymphocytes 29 % 01/15/23 Monocytes % (Manual) 4 % 01/15/23 Eosinophils % (Manual) 2 % 01/15/23 Neutrophils # (Manual) 20.84 K/uL (1.40-6.50) H 01/15/23 Lymphocytes # (Manual) 1.37 K/uL (1.2-3.4) 01/15/23 Absolute Large Granular Lymphocytes 9.91 K/uL 12/30 04/22 Monocytes # (Manual) 1.37 K/uL (0.11-0.59) H 01/15/23 Eosinophils # (Manual) 0.68 K/uL (0-0.50) H 01/15/23 Polychromasia 1+ 01/16/23 Echinocytes 2+ 01/16/23 Na 135 mmol/L (136-145) L 01/16/23 K 3.6 mmol/L (3.5-5.1) 01/16/23 Cl 104 mmol/L (98-107) 01/16/23 CO2 20 mmol/L (21-32) L 01/16/23 Anion Gap 11 (3-11) 01/16/23 BUN 44 mg/dl (6-23) H 01/16/23 Creatinine 2.40 mg/dl (0.6-1.2) H 01/16/23 Estimated GFR ( Amer) 22.5 ml/min 01/16/23 Estimated GFR (Non-Af Amer) 19.4 ml/min 01/16/23 BUN/Creatinine Ratio 18.3 (10-20) 01/16/23 Glu 127 mg/dl (70-99(Fasting)) H 01/16/23 Ca 7.2 mg/dl (8.6-10.3) L 01/16/23 Phosphorus Level 4.4 mg/dl (2.5-4.9) 01/16/23 Total Bilirubin 0.7 mg/dl (0.2-1.0) 01/16/23 Direct Bilirubin 0.2 mg/dl (0-0.2) 01/16/23 AST 17 U/L (13-39) 01/16/23 ALT 11 U/L (7-52) 01/16/23 Alkaline Phosphatase 60 U/L (34-104) 01/16/23 TP 5.9 gm/dl (6.0-8.3) L 01/16/23 Albumin 2.1 gm/dl (3.4-5.0) L 01/16/23 Globulin 4.3 gm/dl (2.5-4.0) H 01/15/23 Albumin/Globulin Ratio 0.6 (0.9-2) L 01/15/23 Mg 1.6 mg/dl (1.7-2.4) L 01/16/23 05:08 Calcium Level 7.2 mg/dl (8.6-10.3) L 01/16/23 00:01 Prothromb Time International Ratio 1.3 (0.9-1.1) H 01/15/23 16 :49 Diagnostic Findings (Past 24 Hours) Chest X-Ray 01/15/23 16:50 XR chest 1V not portable HISTORY: 72 years-old Female Sepsis acute sepsis COMPARISON: Chest radiograph 12/26/2022 TECHNIQUE: AP view of the chest FINDINGS: Cardiac silhouette is enlarged. Status post removal of the hemodialysis catheter. No pneumothorax. Left greater than right pleural effusions with dense left basilar consolidation. Bones appear grossly intact. IMPRESSION: 1. Cardiomegaly without overt pulmonary edema. 2. Layering left pleural effusion with left basilar predominant consolidation suggestive of atelectasis versus pneumonia. ACT 112: Negative or not required by law. The above report was generated using voice recognition software. It may contain grammatical, syntax or spelling errors. Electronically signed by: Nick Stone M.D. 01/15/2023 5:30 PM Abdomen/Pelvis CT 01/15/23 17:[address] WITHOUT CONTRAST CT DOSE: 762.37 mGy.cm HISTORY: Acute fever with generalized abdominal pain status post cholecystectomy. fever, SP adele TECHNIQUE: Multiaxial CT images of the abdomen and pelvis were performed without contrast. A dose lowering technique was utilized adhering to the principles of ALARA. COMPARISON STUDY: 12/31/2022, 12/17/2022 FINDINGS: Small to moderate left pleural effusion with left basilar consolidation has progressively worsened from prior. Trace right pleural effusion with moderate basilar atelectasis. Limited exam without the use of IV contrast. Upper abdominal ascites has increased within the abdominal left upper quadrant and perisplenic distribution with mild mass effect upon the adjacent spleen. Unremarkable adrenal glands. Severe pancreatitis redemonstrated with similar appearance of the interstitial and peripancreatic inflammation. Peripancreatic fluid collections are again noted, suboptimally evaluated without the use of IV contrast. 2.5 cm collection adjacent to the pancreatic head on image 179 previously measured 3.9 cm. A 3.4 cm fluid attenuating structure within the abdominal left upper quadrant is new from prior, possibly loculated ascites versus acute peripancreatic fluid collection. Unremarkable liver. Intrahepatic and extrahepatic pneumobilia is redemonstrated with a common bile duct stent in place. Air and fluid-filled structure within the tima hepatis measures 5.4 x 2.7 cm on image 138 which is similar in appearance and size to the 12/31/2022 exam. A right subhepatic percutaneous drainage catheter is in unchanged positioning. Decreased subcutaneous collection adjacent to the catheter tract. Numerous nonobstructing bilateral renal calculi are noted measuring up to 11 mm on the left 11 mm on the right. Mild nonspecific bilateral perinephric stranding. No ureteral calculi or hydronephrosis. Unremarkable urinary bladder and uterus. Atherosclerosis aorta. Wall thickening of the duodenum is likely reactive. No bowel obstruction or bowel wall thickening. Unremarkable soft tissues. No acute fracture. IMPRESSION: 1. Redemonstration of severe acute pancreatitis which appears similar to the 12/31/2022 exam. Peripancreatic fluid collections are suboptimally evaluated without the use of IV contrast however the dominant collection adjacent to the pancreatic head has decreased in size. 2. Postoperative changes of prior cholecystectomy with air and fluid-filled structure again noted within the tima hepatis, possibly representing residual gallbladder versus postoperative fluid collection. 3. Common bile duct stent in satisfactory positioning with pneumobilia. 4. Unchanged positioning of the right subhepatic percutaneous drainage catheter. 5. Bilateral nephrolithiasis without ureteral calculi or hydronephrosis. 6. Moderate left pleural effusion has increased in size with progressive left basilar consolidation suggestive of atelectasis versus pneumonia. 7. Increased amount of abdominal left upper quadrant ascites. ACT 112: Negative or not required by law. The above report was generated using voice recognition software. It may contain grammatical, syntax or spelling errors. Electronically signed by: Nick Stone M.D. 01/15/2023 6:48 PM I & O Totals 24 Hours 01/15/23 01/16/23 01/17/23 06:59 06:59 06:59 Intake Total 4905.330 / 4905.330 1374.631 / 1374.631 Output Total 235 / 235 250 / 250 Balance 4670.330 / 4670.330 1124.631 / 1124.631 Cumulative 01/15/23 16:20 thru 01/16/23 09:34 Intake Total 6279.961 Output Total 485 Balance 5794.961 RT Ventilator Mngmt (Last Documented) Ventilator Ordered Settings Respiratory Rate 19 01/16/23 09:00 Ventilator - PT Measurements Respiratory Rate 19 Coding Level of Care Code 99469 CRITICAL CARE EA ADD 30M Diagnoses Sepsis A41.9 Sepsis acute organ dysfunction status: unspecified Sepsis type: sepsis due to unspecified organism Acute pancreatitis K85.90 Acute pancreatitis complication: unspecified Pancreatitis type: unspecified pancreatitis type Paroxysmal atrial fibrillation I48.0 Hx laparoscopic cholecystectomy Z90.49 SAMMY (acute kidney injury) N17.9 Depression F32.A Multiple sclerosis G35 (1) Sepsis Sepsis acute organ dysfunction status: unspecified Sepsis type: sepsis due to unspecified organism Qualified Code(s): A41.9 - Sepsis, unspecified organism (2) Acute pancreatitis Acute pancreatitis complication: unspecified Pancreatitis type: unspecified pancreatitis type Qualified Code(s): K85.90 - Acute pancreatitis without necrosis or infection, unspecified
[2023-01-16] MEDS ORDERED: POTASSIUM CHLORIDE CRTAB 20 MEQ TABCR PO STA (09:51)
--- NOTE | 2023-01-16 10:39 | Pharmacy Report ---
Pharmacy PK ABX Note - Date of Service January 16, 2023 - Assessment and Plan Assessment 72 year old F admitted from [place] with a history of MS, neurogenic bladder, recent hospitalization for pancreatitis/cholecysititis s/p cholecystectomy receiving VANCOMYCIN/ZOSYN for empiric treatment of sepsis- unknown source. Leukocytosis w/o fever. Pertinent microbiologic data includes: MRSA nasal swab negative, Blood cultures, urine culture pending. Recent LVQ use. h/o pseudomonas and ent erococcus. Patient with prolonged half-life (>24 hours). Plan Vancomycin * Loading dose: 1750 mg IV x 1 * Maintenance dose: 750 mg IV x1 today * [facility] predicting 750 mg q24H will achieve target AUC/NICO * will get random level in AM to assist with dosing given prolonged half life Pharmacy will continue to follow and will adjust dose/frequency as necessary. Thank you. Pharmacy has transitioned to AUC monitoring for vancomycin. AUC/NICO is the preferred PK/PD target and is associated with decreased risk of nephrotoxicity compared to traditional trough targets.
--- NOTE | 2023-01-16 10:46 | Electrocardiogram Report ---
Test Reason : Blood Pressure : / mmHG Vent. Rate : 084 BPM Atrial Rate : 084 BPM P-R Int : 140 ms QRS Dur : 086 ms QT Int : 466 ms P-R-T Axes : 018 002 041 degrees QTc Int : 550 ms Normal sinus rhythm Prolonged QT Abnormal ECG When compared with ECG of 29-DEC-2022 17:42, Sinus rhythm has replaced Atrial flutter Vent. rate has decreased BY 49 BPM T wave inversion no longer evident in Inferior leads Nonspecific T wave abnormality no longer evident in Anterolateral leads Confirmed by Christo Portillo ([id number]) on 01/16/2023 10:46:06 AM Referred By: REFERRED SELF Confirmed By:Steven Portillo
--- NOTE | 2023-01-16 11:41 | Gastrointestinal Consultation ---
Date of Consultation January 16, 2023 Assessment & Plan (1) Acute pancreatitis: (2) Sepsis: Pt is a 72 yo female w hx of pancreatitis s/p choledocholithiasis removal via ERCP, biliary stent placement last month, cholecystectomy complicated by bile leak managed by MIMI drain in tima hepatis area. She is admitted with symptoms of abd pain, back pain, admitted with sepsis. CT showed decreased pancreatic fluid collection, + L pleural effusion concerning for pneumonia. Biliary stent in good position w pneumobilia. MIMI drain was manipulated by Surgery and is now draining more. Other possible infectious source may be from UTI and decubitus ulcer - No indication for GI intervention at this time - Will discuss w ICU attending about possible culturing peripancreatic fluid collection - Continue IV antibx broad spectrum coverage - Sepsis management per ICU/primary team - Pls recall GI prn Supervising Physician Co-Signing Physician Notes Attending attestation I have seen, examined this patient, and agree with the findings and above by our mid-level provider ROSHAN Giron, with the following additions: Complicated patient s/p ERCP/[facility]oke for cholangitis complicated by leak and pancreatitis now presnting with sepsis. Pancreas appears improved, fluid collections are improved, new fluid around the spleen/pleural effusion MIMI drain, draining purulent/but mildly bilous fluid and was not functional until manipulated by Dr. Whittaker. This may be etiology of infection from malfunctioning drain. Consider tapping fluid for cx, but in light of clinical improvement may be reasonable to continue to monitor drain ouput and clinical status. No intervention from GI in regards to pancreatic pseudocyst given decreasing size No immediate plans for ERCP, but if MIMI continues to leak excessively and thought to be bilious, may need to reconsider Agree with supportive care, IV abx, follow cx data Will follow History of Present Illness Reason for Consultation: S/P ERCP, stent placement, pancreatitis Requesting Physician: Dr. Mark Whittaker Attending Physician: Dr. Jean Garcia History of Present Illness Pt is a 72 yo female w pancreatitis last month s/p ERCP and cholecystectomy, complicated by biliary leak s/p MIMI drain placement, subsequently developed SAMMY requiring dialysis. She was having abd and back pain and returned to ED. Found to be septic on evaluation with WBC of 34 ->39, Cr 2.3, LFTs trending down: Tbili 0.7, AST 17, ALT 11, alk phos 60. Lipase 303. CT abd/pelvis wo contrast showed improving peripancratic fluid collection, CBD stent in place w pneumobilia. + moderate L pleural effusion w possible pneumonia. Noted to have decubitus ulcers, UTI. She had drain placement on the tima hepatis area which was repositioned it by Dr. Whittaker (Surgery) and it started draining. Allergies Allergy/AdvReac Type Severity Reaction Status Date / Time No Known Allergies Allergy Unverified 01/15/23 17:50 Home Medications Medication Instructions Recorded Confirmed Type apixaban 5 mg tablet (Eliquis) 5 mg PO BID #60 tabs 01/12/23 01/15/23 Rx levofloxacin 750 mg tablet 750 mg PO Q48H #3 tabs 01/12/23 01/15/23 Rx methimazole 5 mg tablet 5 mg PO DAILY #30 tabs 01/12/23 01/15/23 Rx acetaminophen 325 mg tablet 650 mg PO Q6 PRN Fever Or Pain 01/15/23 01/15/23 History amiodarone 200 mg tablet 200 mg PO QAM 01/15/23 01/15/23 History diclofenac sodium 1 % topical gel 2 g topical QID 01/15/23 01/15/23 History magnesium oxide 400 mg (241.3 mg 400 mg PO QAM 01/15/23 01/15/23 History magnesium) tablet menthol 0.44 %-zinc oxide 20.6 % 1 applic topical TID 01/15/23 01/15/23 History topical ointment (Calmoseptine) metoprolol succinate 50 mg 50 mg PO AMHS 01/15/23 01/15/23 History tablet,extended release 24 hr oxycodone 5 mg tablet 5 mg PO Q6 PRN pain,moderate 01/15/23 01/15/23 History oxycodone 5 mg tablet 10 mg PO Q6 PRN pain,severe 01/15/23 01/15/23 History sennosides 8.6 mg-docusate sodium 1 tab PO AMHS 01/15/23 01/15/23 History 50 mg tablet (Senokot-S) sertraline 50 mg tablet 50 mg PO QAM 01/15/23 01/15/23 History Patient History Medical History Ambulatory dysfunction d/t MS Depression History of claustrophobia Hypertension Multiple sclerosis Surgical History Hx laparoscopic cholecystectomy (12/10/22) Laparoscopic cholecystectomy with extensive lysis of adhesions, please add modifier for extensive difficulty and increased length of the procedure. Social History Smoking Status: Former smoker Smoking End Date: 1989; Second Hand Exposure: No; Do You Dip or Chew Tobacco: No; Tobacco Cessation Education Requested by Patient: No Hx Alcohol Use: No Hx Substance Use: No Preferred Language: Vietnamese Communication Ability: Effective Visual Impairment: No Limitations Trimmer Operator Required: No Beliefs That Will Affect Care: None marital status: Single Current Living Situation: [facility] current occupational status: retired Other Information That Helps Us Care for You: No Feels Safe at Home: Yes Safety Concerns: Feels Safe At This Time Assistive Devices: Walker Review of Systems Review of Systems: All systems reviewed & are unremarkable except as noted in HPI & below Physical Exam Constitutional: WD/WN, vitals as above well groomed, cooperative and comfortable Eyes: PERRL, conjunctivae normal, anicteric sclerae ENMT: external ear and nose normal, oropharynx normal Respiratory: LLL diminished Cardiovascular: RRR, no murmur, no edema Gastrointestinal (Abdomen): Soft, non tender, BS hypoactive. R abd with dressing, bilious fluid stained. Skin: no rashes, warm and dry no jaundice Psychiatric: A+Ox3, euthymic affect Lymphatic: no lymphedema Results & Data Vital Signs (Past 12 Hours) Vital Signs Temp Pulse Pulse Resp BP BP Pulse Ox 01/16/23 10:45 36.8 C 77 23 87/47 L 01/16/23 10:30 36.8 C 77 24 88/55 L 01/16/23 10:15 36.8 C 77 25 H 89/50 L 93 01/16/23 10:00 36.8 C 76 23 91/56 L 01/16/23 09:47 36.8 C 76 23 93/54 L 95 01/16/23 09:45 36.8 C 76 21 80/53 L 01/16/23 09:30 36.8 C 81 20 100/53 L 91 01/16/23 09:15 36.5 C 76 21 101/60 01/16/23 09:00 36.5 C 76 19 94/48 L 94 01/16/23 08:45 36.5 C 77 20 111/54 L 93 01/16/23 08:30 36.5 C 78 22 102/53 L 94 01/16/23 08:15 36.5 C 80 22 113/59 L 93 01/16/23 08:00 36.5 C 79 21 119/60 92 01/16/23 07:46 36.4 C L 82 25 H 114/55 L 91 01/16/23 07:31 36.5 C 80 19 105/57 L 91 01/16/23 07:16 36.5 C 83 19 91/58 L 92 01/16/23 06:46 36.7 C 81 20 110/60 91 01/16/23 06:15 36.6 C 80 19 92/55 L 91 01/16/23 06:00 36.6 C 80 20 97/65 L 91 01/16/23 05:45 36.6 C 79 20 104/61 01/16/23 05:30 36.6 C 80 19 130/54 L 92 01/16/23 05:15 36.6 C 82 20 116/69 01/16/23 00:00 01/16/23 04:45 36.8 C 84 25 H 104/65 01/16/23 04:30 36.9 C 84 21 139/61 91 01/16/23 04:00 36.8 C 83 20 94/53 L 01/16/23 03:45 36.7 C 85 20 130/64 92 01/16/23 03:30 116/65 01/15/23 23:35 01/15/23 23:59 133 H 01/16/23 03:30 36.7 C 85 20 116/65 91 01/16/23 03:15 36.7 C 84 20 101/60 01/16/23 03:00 36.7 C 86 21 106/69 91 01/16/23 02:45 36.8 C 87 21 95/54 L 01/16/23 02:15 36.8 C 89 22 88/51 L 90 01/16/23 02:00 37.0 C 90 21 117/65 01/16/23 01:45 37.3 C 88 22 97/62 L 01/16/23 01:30 37.4 C 89 21 87/61 L 01/16/23 01:15 37.4 C 90 18 96/61 L 01/16/23 00:45 37.4 C 91 H 23 83/48 L 01/16/23 00:30 37.1 C 93 H 30 H 109/75 92 01/16/23 00:00 92 H 32 H 95/46 L 93 01/15/23 23:52 36.7 C 128 H 20 68/50 L 94 Pulse Ox O2 Del Method O2 Del Method 01/16/23 10:45 01/16/23 10:30 01/16/23 10:15 Room Air 01/16/23 10:00 01/16/23 09:47 Room Air 01/16/23 09:45 01/16/23 09:30 Room Air 01/16/23 09:15 01/16/23 09:00 Room Air 01/16/23 08:45 Room Air 01/16/23 08:30 Room Air 01/16/23 08:15 Room Air 01/16/23 08:00 Room Air 01/16/23 07:46 Room Air 01/16/23 07:31 Room Air 01/16/23 07:16 Room Air 01/16/23 06:46 Room Air 01/16/23 06:15 01/16/23 06:00 01/16/23 05:45 01/16/23 05:30 01/16/23 05:15 01/16/23 00:00 Room Air 01/16/23 04:45 01/16/23 04:30 01/16/23 04:00 01/16/23 03:45 01/16/23 03:30 01/15/23 23:35 91 Room Air 01/15/23 23:59 01/16/23 03:30 01/16/23 03:15 01/16/23 03:00 01/16/23 02:45 01/16/23 02:15 01/16/23 02:00 01/16/23 01:45 01/16/23 01:30 01/16/23 01:15 01/16/23 00:45 01/16/23 00:30 01/16/23 00:00 01/15/23 23:52 Room Air (1) Acute pancreatitis Acute pancreatitis complication: unspecified Pancreatitis type: unspecified pancreatitis type Qualified Code(s): K85.90 - Acute pancreatitis without necrosis or infection, unspecified (2) Sepsis Sepsis acute organ dysfunction status: unspecified Sepsis type: sepsis due to unspecified organism Qualified Code(s): A41.9 - Sepsis, unspecified organism
[2023-01-16] MEDS: oxyCODONE HCL IR 5 MG TAB (IMMEDIATE RELEASE) PO PRN (11:47)
[2023-01-16] MEDS ORDERED: VANCOMYCIN HCL 750 MG in SODIUM CHLORIDE 0.9% 250 ML IV ONE (12:00)
--- NOTE | 2023-01-16 14:31 | Hospitalist Progress Note ---
Date of Service January 16, 2023 Assessment & Plan (1) Septic shock: Plan: Patient was recently hospitalized for about a month during which she was managed for acute pancreatitis, acute cholangitis, septic shock, acute renal failure requiring dialysis briefly, paroxysmal A-fib. Was discharged to half-way facility and represented with abdominal and back pain. Labs on presentation showed worsening leukocytosis, worsening renal function and has been hypotensive. Being managed for septic shock. Currently on Levophed. Sources of sepsis include possible intra-abdominal infection considering recent severe pancreatitis, surgical subhepatic drain in situ, recent UTI. ?acute on chronic pancreatitis CT abdomen and pelvis without contrast on admission noted redemonstration of severe acute pancreatitis similar to 12/31/2022, CBD stent in satisfactory position, unchanged position of right subhepatic percutaneous drainage, bilateral nephrolithiasis without ureteral calculi or hydronephrosis, moderate left pleural effusion increased in size with left basilar consolidation suggestive of atelectasis, increased amount of abdominal left upper quadrant ascites Continue vancomycin and zosyn for now Follow up infectious workup Has pleural effusion (left) on CT abd/pelvis. Not in resp distress. On room air Discussed with ICU physician (2) SAMMY (acute kidney injury): Plan: Worsening renal function in setting of septic shock (3) Hyperthyroidism: Plan: Patient on methimazole Plan Surgery eval and rec noted GI eval noted Discussed with ICU physician who had been working on transfer to a tertiary center Patient to [facility] (as requested by family) pending insurance authorization. Updated sister and partner at bedside DVT ppx- SCD for today. Holding pharmacologic agent until clinical picture is clearer in view of recent surg/intraabd fluid I spent a total of 50 minutes coordinating, documenting and providing care for this patient excluding time spent in performance of separately billed services Admission and Anticipated Discharge Date Admission Date: January 15, 2023 Subjective Patient seen and examined Reports abdominal pain and back pain usually with movement Reports mild dry cough Denied any chest pain, shortness of breath, palpitation Reports persistent anorexia and weakness Sister and partner who are at bedside stated Dr Reyes is working on transfer to a tertiary facility Physical Exam Constitutional: + well hydrated and + obese; no acute distress Eyes: PERRL, conjunctivae normal, anicteric sclerae ENMT: external ear and nose normal, oropharynx normal Respiratory: normal respiratory effort; no respiratory distress Diminished breath sounds lung bases Cardiovascular: Rate/Rhythm: regular rate and regular rhythm S1 S2 Gastrointestinal (Abdomen): normal bowel sounds, soft, nontender, no hepatosplenomegaly RUQ drain in situ Musculoskeletal: +Pedal edema Skin: Patient has a sacral ulcer. Could not examine now per patient's request as she stated turning her causes her pain Neurologic: PERRL, EOMI, accommodation nl, no face palsy, no dysarthria Psychiatric: AOx3 Results & Data Results & Data Vital Signs (Past 12 Hours) Vital Signs Temp Pulse Resp BP Pulse Ox O2 Del Method 01/16/23 13:47 37.1 C 77 20 92/63 L 93 Room Air 01/16/23 13:46 37.1 C 78 23 76/51 L 93 Room Air 01/16/23 13:37 37.1 C 79 22 97/54 L 94 Room Air 01/16/23 13:36 37.1 C 80 27 H 85/45 L 90 Room Air 01/16/23 13:15 37.1 C 78 22 97/53 L 01/16/23 08:00 Room Air 01/16/23 13:00 37.1 C 78 21 95/52 L 01/16/23 12:45 37.1 C 77 20 81/52 L 01/16/23 12:30 37.1 C 77 21 84/55 L 94 Room Air 01/16/23 12:15 37.1 C 78 22 87/49 L 01/16/23 12:00 37.1 C 79 25 H 88/60 L 01/16/23 11:45 37.0 C 78 24 94/56 L 93 Room Air 01/16/23 11:33 36.9 C 80 25 H 93/50 L 01/16/23 11:15 37.0 C 77 23 91/56 L 96 Room Air 01/16/23 11:00 36.9 C 76 21 87/58 L Room Air 01/16/23 10:45 36.8 C 77 23 87/47 L 01/16/23 10:30 36.8 C 77 24 88/55 L 01/16/23 10:15 36.8 C 77 25 H 89/50 L 93 Room Air 01/16/23 10:00 36.8 C 76 23 91/56 L 01/16/23 09:47 36.8 C 76 23 93/54 L 95 Room Air 01/16/23 09:45 36.8 C 76 21 80/53 L 01/16/23 09:30 36.8 C 81 20 100/53 L 91 Room Air 01/16/23 09:15 36.5 C 76 21 101/60 01/16/23 09:00 36.5 C 76 19 94/48 L 94 Room Air 01/16/23 08:45 36.5 C 77 20 111/54 L 93 Room Air 01/16/23 08:30 36.5 C 78 22 102/53 L 94 Room Air 01/16/23 08:15 36.5 C 80 22 113/59 L 93 Room Air 01/16/23 08:00 36.5 C 79 21 119/60 92 Room Air 01/16/23 07:46 36.4 C L 82 25 H 114/55 L 91 Room Air 01/16/23 07:31 36.5 C 80 19 105/57 L 91 Room Air 01/16/23 07:16 36.5 C 83 19 91/58 L 92 Room Air 01/16/23 06:46 36.7 C 81 20 110/60 91 Room Air 01/16/23 06:15 36.6 C 80 19 92/55 L 91 01/16/23 06:00 36.6 C 80 20 97/65 L 91 01/16/23 05:45 36.6 C 79 20 104/61 01/16/23 05:30 36.6 C 80 19 130/54 L 92 01/16/23 05:15 36.6 C 82 20 116/69 01/16/23 04:45 36.8 C 84 25 H 104/65 01/16/23 04:30 36.9 C 84 21 139/61 91 01/16/23 04:00 36.8 C 83 20 94/53 L 01/16/23 03:45 36.7 C 85 20 130/64 92 01/16/23 03:30 116/65 01/16/23 03:30 36.7 C 85 20 116/65 91 01/16/23 03:15 36.7 C 84 20 101/60 01/16/23 03:00 36.7 C 86 21 106/69 91 01/16/23 02:45 36.8 C 87 21 95/54 L Laboratory Results Abnormal lab results 01/15/23 01/15/2323 Range/Units 16:48 16:49 16:49 WBC 34.17 H* (4.8-10.8) K/ul RBC 3.78 L (4.20-5.40) M/uL Hgb 10.7 L (12.0-16.0) g/dl Hct 33.0 L (37.0-47.0) % RDW Std Deviation 46.4 H (36.4-46.3) fL Plt Count 431 H (130-400) K/uL MPV 9.3 L (9.4-12.4) fL Neut # (Auto) (1.40-6.50) K/uL Lymph # (Auto) (1.2-3.4) K/uL [place] # (Auto) (0.11-0.59) K/uL Immature Gran # (Auto) (0.01-0.20) K/uL Neutrophils # (Manual) 20.84 H (1.40-6.50) K/uL Total Absolute Neuts 20.84 H (1.4-6.5) K/uL Total Abs Lymphocytes 11.28 H (1.2-3.4) K/uL Monocytes # (Manual) 1.37 H (0.11-0.59) K/uL Eosinophils # (Manual) 0.68 H (0-0.50) K/uL PT 13.6 H (9.0-12.0) Seconds INR 1.3 H (0.9-1.1) APTT 39.1 H (21.0-31.0) Seconds Sodium (136-145) mmol/L Carbon Dioxide (21-32) mmol/L Anion Gap (3-11) BUN (6-23) mg/dl Creatinine (0.6-1.2) mg/dl Glucose (70-99(Fasting)) mg/dl POC Glucose (70-99) mg/dl Lactate 2.1 H* (0.4-2.0) mmol/L Calcium (8.6-10.3) mg/dl Magnesium (1.7-2.4) mg/dl Troponin I High Sens (0-14) pg/ml Total Protein (6.0-8.3) gm/dl Albumin (3.4-5.0) gm/dl Globulin (2.5-4.0) gm/dl Albumin/Globulin Ratio (0.9-2) Lipase (11-82) U/L Procalcitonin (0-0.5) ng/ml Urine Appearance (Clear) Urine Protein (Negative) Urine Blood (Negative) Ur Leukocyte Esterase (Negative) Urine WBC (Auto) (0-5) /hpf U Epithel Cells (Auto) (0-5) /lpf Granular Casts (0) /lpf 01/15/23 01/15/23 01/15/23 Range/Units 16:49 16:49 23:57 WBC (4.8-10.8) K/ul RBC (4.20-5.40) M/uL Hgb (12.0-16.0) g/dl Hct (37.0-47.0) % RDW Std Deviation (36.4-46.3) fL Plt Count (130-400) K/uL MPV (9.4-12.4) fL Neut # (Auto) (1.40-6.50) K/uL Lymph # (Auto) (1.2-3.4) K/uL [place] # (Auto) (0.11-0.59) K/uL Immature Gran # (Auto) (0.01-0.20) K/uL Neutrophils # (Manual) (1.40-6.50) K/uL Total Absolute Neuts (1.4-6.5) K/uL Total Abs Lymphocytes (1.2-3.4) K/uL Monocytes # (Manual) (0.11-0.59) K/uL Eosinophils # (Manual) (0-0.50) K/uL PT (9.0-12.0) Seconds INR (0.9-1.1) APTT (21.0-31.0) Seconds Sodium 134 L (136-145) mmol/L Carbon Dioxide (21-32) mmol/L Anion Gap 12 H (3-11) BUN 46 H (6-23) mg/dl Creatinine 2.39 H D (0.6-1.2) mg/dl Glucose 115 H (70-99(Fasting)) mg/dl POC Glucose 131 H (70-99) mg/dl Lactate (0.4-2.0) mmol/L Calcium 7.8 L (8.6-10.3) mg/dl Magnesium (1.7-2.4) mg/dl Troponin I High Sens 16.7 H (0-14) pg/ml Total Protein (6.0-8.3) gm/dl Albumin 2.5 L (3.4-5.0) gm/dl Globulin 4.3 H (2.5-4.0) gm/dl Albumin/Globulin Ratio 0.6 L (0.9-2) Lipase 287 H (11-82) U/L Procalcitonin 0.94 H (0-0.5) ng/ml Urine Appearance (Clear) Urine Protein (Negative) Urine Blood (Negative) Ur Leukocyte Esterase (Negative) Urine WBC (Auto) (0-5) /hpf U Epithel Cells (Auto) (0-5) /lpf Granular Casts (0) /lpf 01/16/23 01/16/23 01/16/23 Range/Units 00:01 00:15 05:08 WBC 39.88 H* (4.8-10.8) K/ul RBC 3.40 L (4.20-5.40) M/uL Hgb 9.7 L (12.0-16.0) g/dl Hct 30.1 L (37.0-47.0) % RDW Std Deviation 46.5 H (36.4-46.3) fL Plt Count 421 H (130-400) K/uL MPV 8.9 L (9.4-12.4) fL Neut # (Auto) 33.31 H (1.40-6.50) K/uL Lymph # (Auto) 3.65 H (1.2-3.4) K/uL [place] # (Auto) 1.92 H (0.11-0.59) K/uL Immature Gran # (Auto) 0.52 H (0.01-0.20) K/uL Neutrophils # (Manual) (1.40-6.50) K/uL Total Absolute Neuts (1.4-6.5) K/uL Total Abs Lymphocytes (1.2-3.4) K/uL Monocytes # (Manual) (0.11-0.59) K/uL Eosinophils # (Manual) (0-0.50) K/uL PT (9.0-12.0) Seconds INR (0.9-1.1) APTT (21.0-31.0) Seconds Sodium 135 L (136-145) mmol/L Carbon Dioxide 20 L (21-32) mmol/L Anion Gap (3-11) BUN 44 H (6-23) mg/dl Creatinine 2.40 H (0.6-1.2) mg/dl Glucose 127 H (70-99(Fasting)) mg/dl POC Glucose (70-99) mg/dl Lactate (0.4-2.0) mmol/L Calcium 7.2 L (8.6-10.3) mg/dl Magnesium (1.7-2.4) mg/dl Troponin I High Sens (0-14) pg/ml Total Protein (6.0-8.3) gm/dl Albumin (3.4-5.0) gm/dl Globulin (2.5-4.0) gm/dl Albumin/Globulin Ratio (0.9-2) Lipase 397 H (11-82) U/L Procalcitonin (0-0.5) ng/ml Urine Appearance Cloudy A (Clear) Urine Protein 2+ H (Negative) Urine Blood 2+ H (Negative) Ur Leukocyte Esterase 2+ H (Negative) Urine WBC (Auto) >30 H (0-5) /hpf U Epithel Cells (Auto) >30 H (0-5) /lpf Granular Casts 1-5 H (0) /lpf 01/16/23 01/16/23 01/16/23 Range/Units 05:08 06:26 08:02 WBC (4.8-10.8) K/ul RBC (4.20-5.40) M/uL Hgb (12.0-16.0) g/dl Hct (37.0-47.0) % RDW Std Deviation (36.4-46.3) fL Plt Count (130-400) K/uL MPV (9.4-12.4) fL Neut # (Auto) (1.40-6.50) K/uL Lymph # (Auto) (1.2-3.4) K/uL [place] # (Auto) (0.11-0.59) K/uL Immature Gran # (Auto) (0.01-0.20) K/uL Neutrophils # (Manual) (1.40-6.50) K/uL Total Absolute Neuts (1.4-6.5) K/uL Total Abs Lymphocytes (1.2-3.4) K/uL Monocytes # (Manual) (0.11-0.59) K/uL Eosinophils # (Manual) (0-0.50) K/uL PT (9.0-12.0) Seconds INR (0.9-1.1) APTT (21.0-31.0) Seconds Sodium (136-145) mmol/L Carbon Dioxide (21-32) mmol/L Anion Gap (3-11) BUN (6-23) mg/dl Creatinine (0.6-1.2) mg/dl Glucose (70-99(Fasting)) mg/dl POC Glucose 203 H 190 H (70-99) mg/dl Lactate (0.4-2.0) mmol/L Calcium (8.6-10.3) mg/dl Magnesium 1.6 L (1.7-2.4) mg/dl Troponin I High Sens (0-14) pg/ml Total Protein 5.9 L (6.0-8.3) gm/dl Albumin 2.1 L (3.4-5.0) gm/dl Globulin (2.5-4.0) gm/dl Albumin/Globulin Ratio (0.9-2) Lipase 303 H (11-82) U/L Procalcitonin (0-0.5) ng/ml Urine Appearance (Clear) Urine Protein (Negative) Urine Blood (Negative) Ur Leukocyte Esterase (Negative) Urine WBC (Auto) (0-5) /hpf U Epithel Cells (Auto) (0-5) /lpf Granular Casts (0) /lpf 01/16/23 Range/Units 11:56 WBC (4.8-10.8) K/ul RBC (4.20-5.40) M/uL Hgb (12.0-16.0) g/dl Hct (37.0-47.0) % RDW Std Deviation (36.4-46.3) fL Plt Count (130-400) K/uL MPV (9.4-12.4) fL Neut # (Auto) (1.40-6.50) K/uL Lymph # (Auto) (1.2-3.4) K/uL [place] # (Auto) (0.11-0.59) K/uL Immature Gran # (Auto) (0.01-0.20) K/uL Neutrophils # (Manual) (1.40-6.50) K/uL Total Absolute Neuts (1.4-6.5) K/uL Total Abs Lymphocytes (1.2-3.4) K/uL Monocytes # (Manual) (0.11-0.59) K/uL Eosinophils # (Manual) (0-0.50) K/uL PT (9.0-12.0) Seconds INR (0.9-1.1) APTT (21.0-31.0) Seconds Sodium (136-145) mmol/L Carbon Dioxide (21-32) mmol/L Anion Gap (3-11) BUN (6-23) mg/dl Creatinine (0.6-1.2) mg/dl Glucose (70-99(Fasting)) mg/dl POC Glucose 148 H (70-99) mg/dl Lactate (0.4-2.0) mmol/L Calcium (8.6-10.3) mg/dl Magnesium (1.7-2.4) mg/dl Troponin I High Sens (0-14) pg/ml Total Protein (6.0-8.3) gm/dl Albumin (3.4-5.0) gm/dl Globulin (2.5-4.0) gm/dl Albumin/Globulin Ratio (0.9-2) Lipase (11-82) U/L Procalcitonin (0-0.5) ng/ml Urine Appearance (Clear) Urine Protein (Negative) Urine Blood (Negative) Ur Leukocyte Esterase (Negative) Urine WBC (Auto) (0-5) /hpf U Epithel Cells (Auto) (0-5) /lpf Granular Casts (0) /lpf
[2023-01-16] MEDS ORDERED: LACTATED RINGER'S 500 ML IV ONE (16:02)
[2023-01-16 18:25] LABS: Magnesium 2.4 mg/dl (1.7-2.4); Phosphorus 3.8 mg/dl (2.5-4.9); Potassium 3.4 mmol/L (3.5-5.1)
[2023-01-16] MEDS: ICU ELECTROLYTE REPLACEMENT PROTOCOL SCH (18:34)
[2023-01-16] MEDS: POTASSIUM CHLORIDE CRTAB 20 MEQ TABCR PO SCH ×2 (19:29→21:21)
[2023-01-17] MEDS: LACTATED RINGER'S 1,000 ML IV SCH (00:11)
[2023-01-17] MEDS: PIPERACILLIN/TAZOBACTAM 4.5 GM in DEXTROSE 5% 100 ML IV SCH ×3 (03:55→20:09)
[2023-01-17] MEDS: NOREPINEPHRINE/D5W 4 MG/250 ML PLCT IV SCH ×4 (03:55→16:44)
[2023-01-17] MEDS: oxyCODONE HCL IR 5 MG TAB (IMMEDIATE RELEASE) PO PRN (04:36)
[2023-01-17 05:48] LABS: Hematocrit (blood only) 28.1 % (37.0-47.0); Hemoglobin 9.1 g/dl (12.0-16.0); Mean Corpuscular Hemoglobin 28.2 pg (25.0-34.0); Mean Corpuscular Hgb Conc 32.4 g/dL (32.0-36.0); Platelet Count 393 K/uL (130-400); RDW Coefficient of Variation 14.5 % (11.5-14.5); RDW Standard Deviation 45.6 fL (36.4-46.3); Red Blood Count 3.23 M/uL (4.20-5.40); White Blood Count 30.52 K/ul (4.8-10.8)
[2023-01-17 05:54] LABS: Albumin Globulin Ratio 0.6 (0.9-2); Albumin Level 2.2 gm/dl (3.4-5.0); BUN Creatinine Ratio 19.2 (10-20); Bilirubin Direct 0.3 mg/dl (0-0.2); Bilirubin,Total 0.6 mg/dl (0.2-1.0); Calcium 7.5 mg/dl (8.6-10.3); Creatinine Clr Calc Pharmacy 25.2 ml/min; Est GFR (African American) 25.9 ml/min; Est GFR (Non-African American) 22.4 ml/min; Globulin 3.9 gm/dl (2.5-4.0); Magnesium 2.3 mg/dl (1.7-2.4); Phosphorus 3.7 mg/dl (2.5-4.9); Potassium 3.9 mmol/L (3.5-5.1); Total Protein 6.1 gm/dl (6.0-8.3)
[2023-01-17] MEDS ORDERED: POTASSIUM CHLORIDE CRTAB 20 MEQ TABCR PO ONE (06:03)
[2023-01-17 06:05] LABS: Acanthocytes 2+; Basophils # (auto) 0.13 K/uL (0-0.2); Basophils % (auto) 0.4 %; Eosinophils # (auto) 2.26 K/uL (0-0.50); Eosinophils % (auto) 7.4 %; Immature Granulocytes # (auto) 0.32 K/uL (0.01-0.20); Lymphocytes # (auto) 3.37 K/uL (1.2-3.4); Monocytes # (auto) 2.12 K/uL (0.11-0.59); Monocytes % (auto) 6.9 %; Neutrophils # (auto) 22.32 K/uL (1.40-6.50); Neutrophils % (auto) 73.3 %
[2023-01-17] MEDS: ICU ELECTROLYTE REPLACEMENT PROTOCOL SCH ×2 (06:06→16:22)
[2023-01-17] MEDS: INSULIN ASPART PER UNIT CHARGE SC SCH ×4 (06:07→23:46)
--- NOTE | 2023-01-17 07:47 | Surgery Progress Note ---
Date of Service January 17, 2023 Assessment & Plan (1) Septic shock: Plan: Patient with intermittent atrial fibrillation with tachycardia History of acute pancreatitis with pseudocyst formation peripancreatic inflammation and ascites Status post ERCP with stent placement Status post laparoscopic cholecystectomy with severe scarring and inflammation at the tima hepatis requiring Leaving a portion of the gallbladder and drain placement Drain was manipulated and bulb removed now draining bilious fluid We will try to place a stoma bag around this area and discussed with the nursing team Patient may require drain replacement which may require more advanced interventional radiology and also may require IR drainage of fluid collections, pseudocyst and this may also require advanced gastro endoscopy Family wishes the patient to be transferred to a tertiary care center-they have lost confidence in our care at this hospital I did call her daughter Stacey this morning and tried to answer some questions Admission and Anticipated Discharge Date Admission Date: January 15, 2023 Results & Data Vital Signs (Past 12 Hours) Vital Signs Temp Pulse Resp BP Pulse Ox 01/17/23 04:14 86 01/17/23 04:01 37.3 C 117 H 25 H 93 01/17/23 04:01 96/54 L 01/17/23 04:00 37.3 C 133 H 24 93 01/17/23 03:45 37.3 C 121 H 24 93 01/17/23 03:31 37.2 C 118 H 25 H 94 01/17/23 03:31 75/57 L 01/17/23 03:30 37.2 C 129 H 25 H 92 01/17/23 03:15 37.2 C 121 H 23 92 01/17/23 03:01 88/35 L 01/17/23 03:01 37.2 C 115 H 23 92 01/17/23 03:00 37.2 C 114 H 27 H 93 01/17/23 02:45 37.1 C 104 H 22 92 01/17/23 02:31 37.1 C 114 H 21 92 01/17/23 02:31 95/57 L 01/17/23 02:30 37.1 C 103 H 23 92 01/17/23 02:15 37.1 C 104 H 20 93 01/17/23 02:01 116/59 L 01/17/23 02:01 37.1 C 87 22 92 01/17/23 02:00 37.1 C 87 21 90 01/17/23 01:45 37.1 C 85 21 92 01/17/23 01:31 111/66 01/17/23 01:31 37.1 C 86 21 92 01/17/23 01:30 37.1 C 88 22 92 01/17/23 01:21 37.1 C 87 22 92 01/17/23 01:21 117/55 L 01/17/23 01:16 37.1 C 87 22 92 01/17/23 01:15 37.1 C 88 23 92 01/17/23 01:01 108/63 01/17/23 01:01 37.1 C 89 22 92 01/17/23 01:00 37.1 C 86 23 93 01/17/23 00:46 113/47 L 01/17/23 00:46 37.1 C 89 22 93 01/17/23 00:45 37.1 C 85 21 93 01/17/23 00:31 37.1 C 87 21 93 01/17/23 00:31 98/59 L 01/17/23 00:30 37.1 C 85 21 93 01/17/23 00:16 37.1 C 89 21 93 01/17/23 00:16 96/59 L 01/17/23 00:15 37.1 C 90 22 93 01/17/23 00:00 37.1 C 86 21 93 01/17/23 00:00 106/70 01/16/23 23:45 37.1 C 84 24 93 01/16/23 23:45 103/65 01/16/23 23:31 110/49 L 01/16/23 23:31 37.1 C 91 H 21 92 01/16/23 23:30 37.1 C 88 21 92 01/16/23 23:15 37.1 C 88 23 93 01/16/23 23:15 98/70 L 01/16/23 23:00 37.1 C 86 22 92 01/16/23 23:00 99/58 L 01/16/23 22:46 37.2 C 85 20 92 01/16/23 22:46 110/47 L 01/16/23 22:45 37.1 C 84 21 92 01/16/23 22:30 37.1 C 86 21 92 01/16/23 22:30 91/65 L 01/16/23 22:16 37.1 C 84 21 93 01/16/23 22:16 106/42 L 01/16/23 22:15 37.1 C 84 22 93 01/16/23 22:00 37.1 C 85 21 93 01/16/23 22:00 107/57 L 01/16/23 21:46 37.1 C 86 21 92 01/16/23 21:46 110/46 L 01/16/23 21:45 37.1 C 87 21 93 01/16/23 21:31 37.1 C 86 22 92 01/16/23 21:31 109/51 L 01/16/23 21:30 37.1 C 86 26 H 92 01/16/23 21:16 108/79 01/16/23 21:16 37.1 C 84 23 92 01/16/23 21:15 37.1 C 88 21 92 01/16/23 21:00 37.1 C 87 22 92 01/16/23 20:45 37.1 C 82 20 93 01/16/23 20:45 100/50 L 01/16/23 20:30 37.1 C 86 19 93 01/16/23 20:30 98/61 L 01/16/23 20:15 37.1 C 86 20 93 01/16/23 20:15 93/62 L 01/16/23 20:00 37.0 C 83 20 93 01/16/23 20:00 90/60 L PG Care Time/CCT Total # of Minutes Spent Total Time Spent with Patient: Total time spent is greater than 50% in coordination of care (as documented) at patient's floor/unit and/or counseling patient: Coding Level of Care Code None Diagnoses Septic shock A41.9; R65.21
--- NOTE | 2023-01-17 08:16 | Hospitalist Progress Note ---
Date of Service January 17, 2023 Assessment & Plan (1) Septic shock: Plan: Patient was recently hospitalized for about a month during which she was managed for acute pancreatitis, acute cholangitis, septic shock, acute renal failure requiring dialysis briefly, paroxysmal A-fib. Underwent ERCP on 12/10 with removal of stones from the bile duct. Underwent lap adele with extensive lysis of adhesions on 12/10 by general surgery. Was discharged to intermediate facility and represented with abdominal and back pain. Labs on presentation showed worsening leukocytosis, worsening renal function and has been hypotensive. Being managed for septic shock. Currently on Levophed which was weaned off around 5pm today (01/17). Sources of sepsis include possible intra-abdominal infection considering recent severe pancreatitis, surgical subhepatic drain in situ, recent UTI. ?acute on chronic pancreatitis CT abdomen and pelvis without contrast on admission noted redemonstration of severe acute pancreatitis similar to 12/31/2022, CBD stent in satisfactory position, unchanged position of right subhepatic percutaneous drainage, bilateral nephrolithiasis without ureteral calculi or hydronephrosis, moderate left pleural effusion increased in size with left basilar consolidation suggestive of atelectasis, increased amount of abdominal left upper quadrant ascites Continue on zosyn for now Follow up infectious workup Has pleural effusion (left) on CT abd/pelvis. Not in resp distress but she does have a slight cough. Oxygenating well on room air. (2) SAMMY (acute kidney injury): Plan: Worsening renal function in setting of septic shock (3) Hyperthyroidism: Plan: Patient on methimazole which is known to have a side effect of pancreatitis. However, will cont for now as this pancreatitis has other causes that are more overt. 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 Currently, she is clinically improved. Therefore, transfer to a tertiary care facility is not indicated at this time. DVT ppx- SCD for today. Holding pharmacologic agent until clinical picture is clearer in view of recent surg/intraabd fluid Full code Dispo- uncertain at this time. Remains in ICU. I spent a total of 50 minutes coordinating, documenting and providing care for this patient excluding time spent in performance of separately billed services Nidia Page DO [facility] and [facility]tic[facility]ated Discharge Date Admission Date: January 15, 2023 Subjective 72 yo F presented with severe pancreatitis and sepsis she is reporting no pain she feels her decubitus ulcer is healing she is reporting a dry cough which is evident in the exam and likely 2/2 left pleural effusion she reports feeling better overall off pressors at 5pm today remains tachycardic in the 120-130s Review of Systems Review of Systems: All systems were reviewed and negative except as indicated above. Physical Exam Physical Exam: CONSTITUTIONAL: WNWD, vitals as above, NAD EYES: normal conjunctivae, no scleral icterus ENT: external ear and nose normal, MMM NECK: trachea midline RESPIRATORY: clear to auscultation bilaterally, no crackles, rales or wheezes, normal respiratory effort CARDIOVASCULAR: regular rate and rhythm, S1 and 2 heard without murmurs, gallops or rubs, no JVD, no peripheral edema CHEST: inspection of chest was normal GASTROINTESTINAL: soft, nontender, ND, no guarding, colotomy bag over actively draining bile leak in abdominal wall. MUSCULOSKELETAL: strength 5/5 throughout, head is normocephalic and atraumatic SKIN: warm and dry, unable to examine wound given difficulty maneuvering patient. NEUROLOGIC: patellar DTRs 2+ bilat. PERRL, EOMI, no facial palsy, no dysart hria. Touch, pain and proprioception normal. CN 2-12 grossly intact, no sensory deficit, normal cognition, normal speech, no tremor PSYCHIATRIC: alert cooperative and oriented to person, place and time. Euthymic mood, makes good eye contact, language grossly intact, recent and remote memory grossly intact. Results & Data Results & Data Vital Signs (Past 12 Hours) Vital Signs Temp Pulse Resp BP Pulse Ox 01/17/23 04:14 86 01/17/23 04:01 37.3 C 117 H 25 H 93 01/17/23 04:01 96/54 L 01/17/23 04:00 37.3 C 133 H 24 93 01/17/23 03:45 37.3 C 121 H 24 93 01/17/23 03:31 37.2 C 118 H 25 H 94 01/17/23 03:31 75/57 L 01/17/23 03:30 37.2 C 129 H 25 H 92 01/17/23 03:15 37.2 C 121 H 23 92 01/17/23 03:01 88/35 L 01/17/23 03:01 37.2 C 115 H 23 92 01/17/23 03:00 37.2 C 114 H 27 H 93 01/17/23 02:45 37.1 C 104 H 22 92 01/17/23 02:31 37.1 C 114 H 21 92 01/17/23 02:31 95/57 L 01/17/23 02:30 37.1 C 103 H 23 92 01/17/23 02:15 37.1 C 104 H 20 93 01/17/23 02:01 116/59 L 01/17/23 02:01 37.1 C 87 22 92 01/17/23 02:00 37.1 C 87 21 90 01/17/23 01:45 37.1 C 85 21 92 01/17/23 01:31 111/66 01/17/23 01:31 37.1 C 86 21 92 01/17/23 01:30 37.1 C 88 22 92 01/17/23 01:21 37.1 C 87 22 92 01/17/23 01:21 117/55 L 01/17/23 01:16 37.1 C 87 22 92 01/17/23 01:15 37.1 C 88 23 92 01/17/23 01:01 108/63 01/17/23 01:01 37.1 C 89 22 92 01/17/23 01:00 37.1 C 86 23 93 01/17/23 00:46 113/47 L 01/17/23 00:46 37.1 C 89 22 93 01/17/23 00:45 37.1 C 85 21 93 01/17/23 00:31 37.1 C 87 21 93 01/17/23 00:31 98/59 L 01/17/23 00:30 37.1 C 85 21 93 01/17/23 00:16 37.1 C 89 21 93 01/17/23 00:16 96/59 L 01/17/23 00:15 37.1 C 90 22 93 01/17/23 00:00 37.1 C 86 21 93 01/17/23 00:00 106/70 01/16/23 23:45 37.1 C 84 24 93 01/16/23 23:45 103/65 01/16/23 23:31 110/49 L 01/16/23 23:31 37.1 C 91 H 21 92 01/16/23 23:30 37.1 C 88 21 92 01/16/23 23:15 37.1 C 88 23 93 01/16/23 23:15 98/70 L 01/16/23 23:00 37.1 C 86 22 92 01/16/23 23:00 99/58 L 01/16/23 22:46 37.2 C 85 20 92 01/16/23 22:46 110/47 L 01/16/23 22:45 37.1 C 84 21 92 01/16/23 22:30 37.1 C 86 21 92 01/16/23 22:30 91/65 L 01/16/23 22:16 37.1 C 84 21 93 01/16/23 22:16 106/42 L 01/16/23 22:15 37.1 C 84 22 93 01/16/23 22:00 37.1 C 85 21 93 01/16/23 22:00 107/57 L 01/16/23 21:46 37.1 C 86 21 92 01/16/23 21:46 110/46 L 01/16/23 21:45 37.1 C 87 21 93 01/16/23 21:31 37.1 C 86 22 92 01/16/23 21:31 109/51 L 01/16/23 21:30 37.1 C 86 26 H 92 01/16/23 21:16 108/79 01/16/23 21:16 37.1 C 84 23 92 01/16/23 21:15 37.1 C 88 21 92 01/16/23 21:00 37.1 C 87 22 92 01/16/23 20:45 37.1 C 82 20 93 01/16/23 20:45 100/50 L 01/16/23 20:30 37.1 C 86 19 93 01/16/23 20:30 98/61 L Laboratory Results Short CBC 01/17/23 Range/Units 05:06 WBC 30.52 H* (4.8-10.8) K/ul Hgb 9.1 L (12.0-16.0) g/dl Hct 28.1 L (37.0-47.0) % Plt Count 393 (130-400) K/uL BMP 01/16/23 01/17/23 17:31 05:06 Sodium 133 L Potassium 3.4 L 3.9 Chloride 104 Carbon Dioxide 17 L BUN 41 H Creatinine 2.13 H Glucose 137 H Calcium 7.5 L Liver Function 01/17/23 Range/Units 05:06 Total Bilirubin 0.6 (0.2-1.0) mg/dl Direct Bilirubin 0.3 H (0-0.2) mg/dl AST 11 L (13-39) U/L ALT 9 (7-52) U/L Alkaline Phosphatase 62 (34-104) U/L Albumin 2.2 L (3.4-5.0) gm/dl Medications Administered Current Inpatient Medications Acetaminophen (Acetaminophen 325 Mg Tab) 650 mg PO Q6 PRN PRN Reason: Fever Or MILD Pain Stop: 02/14/23 23:34 Amiodarone HCl (Amiodarone 200 Mg Tab) 200 mg PO QAM [facility] Stop: 02/15/23 08:59 Last Admin: 01/16/23 09:20 Dose: 200 mg Apixaban (Apixaban 5 Mg Tablet) 5 mg PO BID [facility] Stop: 02/15/23 08:59 Calamine/Phenol (Menthol-Zinc Oxide 360 Appln/120 Gm Tube) 1 appln EXT TID [facility] Stop: 02/15/23 08:59 Last Admin: 01/16/23 23:05 Dose: 1 appln Dextrose (Dextrose 50% 50 Ml Syringe) 25 - 50 ml IV UD PRN; Protocol PRN Reason: Hypoglycemia Protocol Stop: 02/15/23 08:04 Glucagon (Glucagon For Inj 1 Mg Vial) 1 mg SQ UD PRN; Protocol PRN Reason: Hypoglycemia Protocol Stop: 02/15/23 08:04 Glucose (Glucose 40% Gel 15 Gm Tube) 15 - 30 gm PO UD PRN; Protocol PRN Reason: Hypoglycemia Protocol Stop: 02/15/23 08:04 Glucose (Glucose 10 Tab/Tube) 4 - 8 tab PO UD PRN; Protocol PRN Reason: Hypoglycemia Treatment Stop: 02/15/23 08:04 Norepinephrine Bitartrate (Levophed/D5w) 4 mg in 250 mls @ 27.57 mls/hr IV .Q9H5M [facility]; Protocol Stop: 02/14/23 22:59 Last Titration: 01/17/23 06:58 Dose: 0.08 mcg/kg/min, 27.6 mls/hr Piperacillin Sod/Tazobactam (Sod 4.5 gm/ Dextrose) 120 mls @ 30 mls/hr IV Q8H [facility]; Protocol Stop: 01/26/23 03:59 Last Infusion: 01/17/23 07:59 Dose: Infused Acetaminophen (Ofirmev) 1,000 mg in 100 mls @ 400 mls/hr IV Q8H PRN PRN Reason: pain or fever Stop: 01/19/23 00:14 Insulin Aspart (Insulin Aspart Per Unit Charge) 0 units SC Q6 [facility] Stop: 02/15/23 08:14 Last Admin: 01/17/23 06:07 Dose: Not Given Magnesium Oxide (Magnesium Oxide 400 Mg Tab) 400 mg PO QAM [facility] Stop: 02/15/23 08:59 Methimazole (Methimazole 5 Mg Tablet) 5 mg PO DAILY [facility] Stop: 02/15/23 08:59 Last Admin: 01/16/23 09:20 Dose: 5 mg Miscellaneous (Carbohydrates For Hypoglycemia ) 15 - 30 gm PO UD PRN PRN Reason: Hypoglycemia Protocol Stop: 02/15/23 08:04 Miscellaneous (Icu Electrolyte Replacement Protocol) 1 each N/A BID@ [facility]; Protocol Stop: 01/24/23 05:59 Last Admin: 01/17/23 06:06 Dose: 1 each Miscellaneous Information (Vancomycin Consult Active) 1 each N/A UD PRN PRN Reason: Consult Stop: 02/14/23 21:31 Oxycodone HCl (Oxycodone Hcl Ir 5 Mg Tab (Immediate Release)) 10 mg PO Q6 PRN PRN Reason: pain,severe Stop: 01/30/23 00:14 Last Admin: 01/17/23 04:36 Dose: 10 mg Sertraline HCl (Sertraline Hcl 50 Mg Tablet) 50 mg PO QAM [facility] Stop: 02/15/23 08:59 Last Admin: 01/16/23 09:20 Dose: 50 mg
[2023-01-17] MEDS: SERTRALINE HCL 50 MG TABLET PO SCH (08:19)
[2023-01-17] MEDS: ACETAMINOPHEN 325 MG TAB PO PRN (08:19)
[2023-01-17] MEDS: methIMAzole 5 MG TABLET PO SCH (08:19)
[2023-01-17] MEDS: MENTHOL-ZINC OXIDE 360 APPLN/120 GM TUBE EXT SCH ×3 (08:20→20:30)
[2023-01-17] MEDS: AMIODARONE 200 MG TAB PO SCH (08:20)
--- NOTE | 2023-01-17 09:01 | Critical Care Progress Note ---
Date of Service January 17, 2023 Assessment & Plan (1) Sepsis: (2) Acute pancreatitis: (3) Paroxysmal atrial fibrillation: (4) Hx laparoscopic cholecystectomy: (5) SAMMY (acute kidney injury): (6) Depression: (7) Multiple sclerosis: Plan Reason Critically Ill: 72 YOF admitted to ICU for shock multifactorial to include sepsis and hypovolemia. Sources to include abdomen/urine/pneumonia. Neuro - MS, generalized weakness, depression, CAM ICU: Negative - No acute needs - Generalized pain- Tylenol, Oxy IR 5 q6 prn severe pain Cardiac - Shock, PAF, HTN: Improved with Levophed -Probable intra-abdominal sepsis in origin, cannot exclude acute on chronic pancreatitis as contributing -Added midodrine 5 mg 3 times daily - For her PAF she is on amiodarone- will continue- hold her Metoprolol- -continue apixaban Respiratory - Pleural Effusion with compressive atelectasis - Can't exclude pneumonia however she is without hypoxia or sputum production -Patient appears to be clinically improving will hold additional invasive evaluation at this time GI - Pancreatitis acute on chronic, subhepatic drain s/p colectomy -Dietary consulted -Advance diet to full liquids at this time -Discussed with daughter concerns about nutritional status, this will be a long-term ongoing issue. Patient does not want to eat we discussed risks and benefits of medications such as Megace however there is no indication at this time given acute critical illness RENAL/LYTES - SMAMY: improved, Bilateral nephrolithiasis without hydro -electrolytes are within normal limits attempt to optimize further given atrial fibrillation - ICU electrolyte protocol - As above - Tomlinson placed for accurate IN/Out and resuscitation goals ENDO - HX of hyperthyroidism - TSH normal - Continue Methimazole - Random cortisol adequate HEME - Leukocytosis, chronic anemia - Supportive care- follow see ID below ID - Septic shock- sources intraabdominal vs. urine vs. pleural or combination - She is without fever or lactate but is noted with tachycardia, increase in WBC count, elevated PCT and SAMMY - Suspect intraabdominal source. - Blood with fungal, urine, no growth at 24 hours - reviewed 01/08 urine culture: dumont sensitive P. Aeruginosa, greater than 100 K CFU, 50 K CFU Enterococcus faecalis: Pansensitive - Continue with Zosyn and Vancomycin- previous culture data reviewed LINES/IV ACCESS - PIV x2, Tomlinson catheter -Prior IV site reported infiltration which was her room mediately recognized. Continue use of these lines -Low-dose vasoactive medication present, patient DVT PROPHYLAXIS - SCDS chemoprophylaxis once clinical course becomes clear- currently holding DOAC DISPO - ICU until hemodynamics are stable Had greater than 20-minute discussion with patient, patient's significant other, patient's daughter (present on telephone), bedside nurse and patient advocate. Discussed current status, likely prognosis, likely future needs. At this time especially given her clinical improvement she does not meet medical criteria requiring transfer to Center with higher level of care. Discussed at present time as was the case yesterday this is a family/patient initiated transfer request. Family concerned with care that was delivered during previous admission and is not confident about ability to provide care outside of ICU. We discussed with the patient what her desires were, no definitive conclusion was reached. Family reported they do not feel the patient has capacity to provide informed consent secondary to MS. In my professional opinion the patient does have the ability to give informed consent and does have capacity, she is able to understand the information about her decision, she is able to remember the information and use the information in a coherent decision making process. She is able to clearly communicate those needs with me. Particular during this discussion she discussed concerns over insurance implications and costs if the transfer was not medically indicated. She has insight into her disease process, is able to verbalize what has happened, her current prognosis, as well as possible needed procedures in the future. I emphasized we will always make attempts to include family in joint medical decision making; however, in situations of medical emergencies if life or limb is at risk or we are unable to contact family needed care will be undertaken. We discussed situations that would be exemplary of this such as an intubated patient and severe intra-abdominal sepsis with inability to achieve source control. Family stressed concerns that they would prefer her to be at an institution in case complications were to arise, I emphasized I cannot guarantee outcome but reassured that the patient does appear to be improving. At the present time the family and patient have contact information for the patient advocate and we discussed a definitive channel of communication through the hospital medicine team, as they will be seeing her through the entirety of her stay. Currently the plan is to continue care at [facility]. I have personally spent 80 minutes of critical care time in the direct management of this patient. This is a life/limb threatening event. This includes time spent evaluating patient, direct bedside care, chart review, placing orders, interpretation of diagnostic studies, discussion with consultants, patient, and/or family members regarding treatment decisions, as well as other required patient management activities. This time is exclusive of all separately billable procedures, and teaching time and separate from and in addition to any other critical care service time. Admission and Anticipated Discharge Date Admission Date: January 15, 2023 Subjective Overnight patient developed atrial fibrillation with rapid ventricular response. No significant hemodynamic compromise. This occurred previously and the patient has been on amiodarone orally since last admission. Yesterday arrangements were made per family's request to transfer to [facility]. Family later declined transfer and requested transfer to [facility]; however, they requested transfer not occur in the evening or overnight. Today I discussed the case with general surgery as well as the hospitalist team. I also have involved the patient advocate and nursing administration to facilitate effective communication. Review of Systems Review of Systems: Denies chest pain, shortness of breath, abdominal pain, fevers, palpitations. Admits to subjective anorexia without nausea. Physical Exam Physical Exam: General: Alert. nontoxic. Skin: Warm, dry, Head: Atraumatic Ears, nose, mouth and throat: airway patent Cardiovascular: Normal peripheral perfusion Respiratory: no respiratory distress Gastrointestinal: Non distended, drain in right upper quadrant draining bilious looking fluid from drain and around drain site. Patient is nontender no ndistended hypoactive bowel sounds. No guarding no rebound Musculoskeletal: No deformity -Bilateral antecubital show no sign of necrosis or tissue compromise at this time. Areas of ecchymoses from prior IV sites Results & Data Results & Data Vital Signs (Past 12 Hours) Vital Signs Temp Pulse Resp BP Pulse Ox 01/17/23 04:14 86 01/17/23 04:01 37.3 C 117 H 25 H 93 01/17/23 04:01 96/54 L 01/17/23 04:00 37.3 C 133 H 24 93 01/17/23 03:45 37.3 C 121 H 24 93 01/17/23 03:31 37.2 C 118 H 25 H 94 01/17/23 03:31 75/57 L 01/17/23 03:30 37.2 C 129 H 25 H 92 01/17/23 03:15 37.2 C 121 H 23 92 04/19/23 03:01 88/35 L 01/17/23 03:01 37.2 C 115 H 23 92 01/17/23 03:00 37.2 C 114 H 27 H 93 01/17/23 02:45 37.1 C 104 H 22 92 01/17/23 02:31 37.1 C 114 H 21 92 01/17/23 02:31 95/57 L 01/17/23 02:30 37.1 C 103 H 23 92 01/17/23 02:15 37.1 C 104 H 20 93 01/17/23 02:01 116/59 L 01/17/23 02:01 37.1 C 87 22 92 01/17/23 02:00 37.1 C 87 21 90 01/17/23 01:45 37.1 C 85 21 92 01/17/23 01:31 111/66 01/17/23 01:31 37.1 C 86 21 92 01/17/23 01:30 37.1 C 88 22 92 01/17/23 01:21 37.1 C 87 22 92 01/17/23 01:21 117/55 L 01/17/23 01:16 37.1 C 87 22 92 01/17/23 01:15 37.1 C 88 23 92 01/17/23 01:01 108/63 01/17/23 01:01 37.1 C 89 22 92 01/17/23 01:00 37.1 C 86 23 93 01/17/23 00:46 113/47 L 01/17/23 00:46 37.1 C 89 22 93 01/17/23 00:45 37.1 C 85 21 93 01/17/23 00:31 37.1 C 87 21 93 01/17/23 00:31 98/59 L 01/17/23 00:30 37.1 C 85 21 93 01/17/23 00:16 37.1 C 89 21 93 01/17/23 00:16 96/59 L 01/17/23 00:15 37.1 C 90 22 93 01/17/23 00:00 37.1 C 86 21 93 01/17/23 00:00 106/70 01/16/23 23:45 37.1 C 84 24 93 01/16/23 23:45 103/65 01/16/23 23:31 110/49 L 01/16/23 23:31 37.1 C 91 H 21 92 01/16/23 23:30 37.1 C 88 21 92 01/16/23 23:15 37.1 C 88 23 93 01/16/23 23:15 98/70 L 01/16/23 23:00 37.1 C 86 22 92 01/16/23 23:00 99/58 L 01/16/23 22:46 37.2 C 85 20 92 01/16/23 22:46 110/47 L 01/16/23 22:45 37.1 C 84 21 92 01/16/23 22:30 37.1 C 86 21 92 01/16/23 22:30 91/65 L 01/16/23 22:16 37.1 C 84 21 93 01/16/23 22:16 106/42 L 01/16/23 22:15 37.1 C 84 22 93 01/16/23 22:00 37.1 C 85 21 93 01/16/23 22:00 107/57 L 01/16/23 21:46 37.1 C 86 21 92 01/16/23 21:46 110/46 L 01/16/23 21:45 37.1 C 87 21 93 01/16/23 21:31 37.1 C 86 22 92 01/16/23 21:31 109/51 L 01/16/23 21:30 37.1 C 86 26 H 92 01/16/23 21:16 108/79 01/16/23 21:16 37.1 C 84 23 92 01/16/23 21:15 37.1 C 88 21 92 Critical Care Results & Data Vital Signs (Past 12 Hours) Vital Signs Temp Pulse Resp BP Pulse Ox 01/17/23 04:14 86 01/17/23 04:01 37.3 C 117 H 25 H 93 01/17/23 04:01 96/54 L 01/17/23 04:00 37.3 C 133 H 24 93 01/17/23 03:45 37.3 C 121 H 24 93 01/17/23 03:31 37.2 C 118 H 25 H 94 01/17/23 03:31 75/57 L 01/17/23 03:30 37.2 C 129 H 25 H 92 01/17/23 03:15 37.2 C 121 H 23 92 01/17/23 03:01 88/35 L 01/17/23 03:01 37.2 C 115 H 23 92 01/17/23 03:00 37.2 C 114 H 27 H 93 01/17/23 02:45 37.1 C 104 H 22 92 01/17/23 02:31 37.1 C 114 H 21 92 01/17/23 02:31 95/57 L 01/17/23 02:30 37.1 C 103 H 23 92 01/17/23 02:15 37.1 C 104 H 20 93 01/17/23 02:01 116/59 L 01/17/23 02:01 37.1 C 87 22 92 01/17/23 02:00 37.1 C 87 21 90 01/17/23 01:45 37.1 C 85 21 92 01/17/23 01:31 111/66 01/17/23 01:31 37.1 C 86 21 92 01/17/23 01:30 37.1 C 88 22 92 01/17/23 01:21 37.1 C 87 22 92 01/17/23 01:21 117/55 L 01/17/23 01:16 37.1 C 87 22 92 01/17/23 01:15 37.1 C 88 23 92 01/17/23 01:01 108/63 01/17/23 01:01 37.1 C 89 22 92 01/17/23 01:00 37.1 C 86 23 93 01/17/23 00:46 113/47 L 01/17/23 00:46 37.1 C 89 22 93 01/17/23 00:45 37.1 C 85 21 93 01/17/23 00:31 37.1 C 87 21 93 01/17/23 00:31 98/59 L 01/17/23 00:30 37.1 C 85 21 93 01/17/23 00:16 37.1 C 89 21 93 01/17/23 00:16 96/59 L 01/17/23 00:15 37.1 C 90 22 93 01/17/23 00:00 37.1 C 86 21 93 01/17/23 00:00 106/70 01/16/23 23:45 37.1 C 84 24 93 01/16/23 23:45 103/65 01/16/23 23:31 110/49 L 01/16/23 23:31 37.1 C 91 H 21 92 01/16/23 23:30 37.1 C 88 21 92 01/16/23 23:15 37.1 C 88 23 93 01/16/23 23:15 98/70 L 01/16/23 23:00 37.1 C 86 22 92 01/16/23 23:00 99/58 L 01/16/23 22:46 37.2 C 85 20 92 01/16/23 22:46 110/47 L 01/16/23 22:45 37.1 C 84 21 92 01/16/23 22:30 37.1 C 86 21 92 01/16/23 22:30 91/65 L 01/16/23 22:16 37.1 C 84 21 93 01/16/23 22:16 106/42 L 01/16/23 22:15 37.1 C 84 22 93 01/16/23 22:00 37.1 C 85 21 93 01/16/23 22:00 107/57 L 01/16/23 21:46 37.1 C 86 21 92 01/16/23 21:46 110/46 L 01/16/23 21:45 37.1 C 87 21 93 01/16/23 21:31 37.1 C 86 22 92 01/16/23 21:31 109/51 L 01/16/23 21:30 37.1 C 86 26 H 92 01/16/23 21:16 108/79 01/16/23 21:16 37.1 C 84 23 92 01/16/23 21:15 37.1 C 88 21 92 Lab & Micro Results (Past 24 Hours) RBC 3.23 M/uL (4.20-5.40) L 01/17/23 WBC 30.52 K/ul (4.8-10.8) H* 01/17/23 Hgb 9.1 g/dl (12.0-16.0) L 01/17/23 Hct 28.1 % (37.0-47.0) L 01/17/23 MCV 87.0 fL (80.0-100.0) 01/17/23 MCH 28.2 pg (25.0-34.0) 01/17/23 MCHC 32.4 g/dL (32.0-36.0) 01/17/23 RDW Standard Deviation 45.6 fL (36.4-46.3) 01/17/23 RDW Coefficient of Variation 14.5 % (11.5-14.5) 01/17/23 Plt Count 393 K/uL (130-400) 01/17/23 MPV 9.0 fL (9.4-12.4) L 01/17/23 Neutrophils (%) (Auto) 73.3 % 01/17/23 Lymphocytes (%) (Auto) 11.0 % 01/17/23 Monocytes # (Auto) 2.12 K/uL (0.11-0.59) H 01/17/23 Eosinophils # (Auto) 2.26 K/uL (0-0.50) H 01/17/23 Immature Granulocyte % (Auto) 1.0 % 01/17/23 Neutrophils # (Auto) 22.32 K/uL (1.40-6.50) H 01/17/23 Lymphocytes # (Auto) 3.37 K/uL (1.2-3.4) 01/17/23 Monocytes # (Auto) 2.12 K/uL (0.11-0.59) H 01/17/23 Eosinophils # (Auto) 2.26 K/uL (0-0.50) H 01/17/23 Basophils # (Auto) 0.13 K/uL (0-0.2) 01/17/23 Immature Granulocyte # (Auto) 0.32 K/uL (0.01-0.20) H 01/17 Acanthocytes 2+ 01/17/23 Na 133 mmol/L (136-145) L 01/17/23 K 3.9 mmol/L (3.5-5.1) 01/17/23 Cl 104 mmol/L (98-107) 01/17/23 CO2 17 mmol/L (21-32) L 01/17/23 Anion Gap 12 (3-11) H 01/17/23 BUN 41 mg/dl (6-23) H 01/17/23 Creatinine 2.13 mg/dl (0.6-1.2) H 01/17/23 Estimated GFR ( Amer) 25.9 ml/min 01/17/23 Estimated GFR (Non-Af Amer) 22.4 ml/min 01/17/23 BUN/Creatinine Ratio 19.2 (10-20) 01/17/23 Glu 137 mg/dl (70-99(Fasting)) H 01/17/23 Ca 7.5 mg/dl (8.6-10.3) L 01/17/23 Phosphorus Level 3.7 mg/dl (2.5-4.9) 01/17/23 Total Bilirubin 0.6 mg/dl (0.2-1.0) 01/17/23 Direct Bilirubin 0.3 mg/dl (0-0.2) H 01/17/23 AST 11 U/L (13-39) L 01/17/23 ALT 9 U/L (7-52) 01/17/23 Alkaline Phosphatase 62 U/L (34-104) 01/17/23 TP 6.1 gm/dl (6.0-8.3) 01/17/23 Albumin 2.2 gm/dl (3.4-5.0) L 01/17/23 Globulin 3.9 gm/dl (2.5-4.0) 01/17/23 Albumin/Globulin Ratio 0.6 (0.9-2) L 01/17/23 Mg 2.3 mg/dl (1.7-2.4) 01/17/23 05:06 Calcium Level 7.5 mg/dl (8.6-10.3) L 01/17/23 05:06 Microbiology 01/15/23 16:58 Aerobic Blood Culture - Preliminary Blood No growth in Aerobic bottle after 24 hours. Anaerobic Blood Culture - Final 01/15/23 16:49 Aerobic Blood Culture - Preliminary Blood No growth in Aerobic bottle after 24 hours. Anaerobic Blood Culture - Preliminary No growth in Anaerobic bottle after 24 hours. 01/16/23 10:28 Fungal Smear - Final Blood I & O Totals 24 Hours 01/16/23 01/17/23 01/18/23 06:59 06:59 06:59 Intake Total 4905.330 / 4905.330 5755.366 / 5755.366 157.72 / 157.72 Output Total 235 / 235 775 / 775 Balance 4670.330 / 4670.330 4980.366 / 4980.366 157.72 / 157.72 Cumulative 01/15/23 16:20 thru 01/17/23 08:20 Intake Total 53414.416 Output Total 1010 Balance 9808.416 RT Ventilator Mngmt (Last Documented) Ventilator Ordered Settings Respiratory Rate 25 01/17/23 04:01 Ventilator - PT Measurements Respiratory Rate 25 Coding Level of Care Code 04242 CRITICAL CARE EA ADD 30M Diagnoses Sepsis A41.9 Sepsis acute organ dysfunction status: unspecified Sepsis type: sepsis due to unspecified organism Acute pancreatitis K85.90 Acute pancreatitis complication: unspecified Pancreatitis type: unspecified pancreatitis type Paroxysmal atrial fibrillation I48.0 Hx laparoscopic cholecystectomy Z90.49 SAMMY (acute kidney injury) N17.9 Depression F32.A Multiple sclerosis G35 (1) Sepsis Sepsis acute organ dysfunction status: unspecified Sepsis type: sepsis due to unspecified organism Qualified Code(s): A41.9 - Sepsis, unspecified organism (2) Acute pancreatitis Acute pancreatitis complication: unspecified Pancreatitis type: unspecified pancreatitis type Qualified Code(s): K85.90 - Acute pancreatitis without necrosis or infection, unspecified
--- NOTE | 2023-01-17 10:03 | Gastroenterology Progress Note ---
Date of Service January 17, 2023 Assessment & Plan (1) Acute pancreatitis: (2) Sepsis: Plan: Pt is a 72 yo female w hx of pancreatitis s/p choledocholithiasis removal via ERCP, biliary stent placement last month, cholecystectomy complicated by bile leak managed by MIMI drain in tima hepatis area. She is admitted with symptoms of abd pain, back pain, and found to be septic. Several potential infection sources: UTI, decubitus ulcer and CT showed decreased pancreatic fluid collection, + L pleural effusion concerning for pneumonia. Biliary stent in good position w pneumobilia. MIMI drain was manipulated by Surgery and is now draining more. LFTs normal. - No indication for GI intervention such as repeat ERCP at this time - Consider drain fluid culture - Continue IV antibx broad spectrum coverage - Sepsis management per ICU/primary team - GI to sign off; pls recall prn Admission and Anticipated Discharge Date Admission Date: January 15, 2023 Supervising Physician Co-Signing Physician Notes Attending attestation I have seen, examined this patient, and agree with the findings and above by our mid-level provider ROSHAN Giron, with the following additions: Complicated patient s/p ERCP/Brooke for cholangitis complicated by leak and pancreatitis now presnting with sepsis. Pancreas appears improved, fluid collections are improved, new fluid around the spleen/pleural effusion MIMI drain, draining purulent/but mildly bilous fluid and was not functional until manipulated by Dr. Whittaker. This may be etiology of infection from malfunctioning drain. Consider tapping fluid for cx, but in light of clinical improvement may be reasonable to continue to monitor drain ouput and clinical status. No intervention from GI in regards to pancreatic pseudocyst given decreasing size Agree with supportive care, IV abx, follow cx data Subjective Pt reports she is feeling fine. On Levophed still BP 96/54, afebrile overnight. WBC decreased to 30K Review of Systems Review of Systems: All systems reviewed & are unremarkable except as noted in HPI & below Physical Exam Constitutional: WD/WN, vitals as above well groomed, cooperative and comfortable Eyes: PERRL, conjunctivae normal, anicteric sclerae ENMT: external ear and nose normal, oropharynx normal Respiratory: No respiratory distress noted Cardiovascular: RRR, no murmur, no edema Gastrointestinal (Abdomen): Abd soft, MIMI drain remnant to RUQ, slight pus like discharge mixed with bile noted around insertion area. Skin: no rashes, warm and dry no jaundice Psychiatric: A+Ox3, euthymic affect Lymphatic: no lymphedema Results & Data Vital Signs (Past 12 Hours) Vital Signs Temp Pulse Resp BP Pulse Ox 01/17/23 04:14 86 01/17/23 04:01 37.3 C 117 H 25 H 93 01/17/23 04:01 96/54 L 01/17/23 04:00 37.3 C 133 H 24 93 01/17/23 03:45 37.3 C 121 H 24 93 01/17/23 03:31 37.2 C 118 H 25 H 94 01/17/23 03:31 75/57 L 01/17/23 03:30 37.2 C 129 H 25 H 92 01/17/23 03:15 37.2 C 121 H 23 92 01/17/23 03:01 88/35 L 01/17/23 03:01 37.2 C 115 H 23 92 01/17/23 03:00 37.2 C 114 H 27 H 93 01/17/23 02:45 37.1 C 104 H 22 92 01/17/23 02:31 37.1 C 114 H 21 92 01/17/23 02:31 95/57 L 01/17/23 02:30 37.1 C 103 H 23 92 01/17/23 02:15 37.1 C 104 H 20 93 01/17/23 02:01 116/59 L 01/17/23 02:01 37.1 C 87 22 92 01/17/23 02:00 37.1 C 87 21 90 01/17/23 01:45 37.1 C 85 21 92 01/17/23 01:31 111/66 01/17/23 01:31 37.1 C 86 21 92 01/17/23 01:30 37.1 C 88 22 92 01/17/23 01:21 37.1 C 87 22 92 01/17/23 01:21 117/55 L 01/17/23 01:16 37.1 C 87 22 92 01/17/23 01:15 37.1 C 88 23 92 01/17/23 01:01 108/63 01/17/23 01:01 37.1 C 89 22 92 01/17/23 01:00 37.1 C 86 23 93 04/19/23 00:46 113/47 L 01/17/23 00:46 37.1 C 89 22 93 01/17/23 00:45 37.1 C 85 21 93 01/17/23 00:31 37.1 C 87 21 93 01/17/23 00:31 98/59 L 01/17/23 00:30 37.1 C 85 21 93 01/17/23 00:16 37.1 C 89 21 93 01/17/23 00:16 96/59 L 01/17/23 00:15 37.1 C 90 22 93 01/17/23 00:00 37.1 C 86 21 93 01/17/23 00:00 106/70 01/16/23 23:45 37.1 C 84 24 93 01/16/23 23:45 103/65 01/16/23 23:31 110/49 L 01/16/23 23:31 37.1 C 91 H 21 92 01/16/23 23:30 37.1 C 88 21 92 01/16/23 23:15 37.1 C 88 23 93 01/16/23 23:15 98/70 L 01/16/23 23:00 37.1 C 86 22 92 01/16/23 23:00 99/58 L 01/16/23 22:46 37.2 C 85 20 92 01/16/23 22:46 110/47 L 01/16/23 22:45 37.1 C 84 21 92 01/16/23 22:30 37.1 C 86 21 92 01/16/23 22:30 91/65 L 01/16/23 22:16 37.1 C 84 21 93 01/16/23 22:16 106/42 L 01/16/23 22:15 37.1 C 84 22 93 (1) Acute pancreatitis Acute pancreatitis complication: unspecified Pancreatitis type: unspecified pancreatitis type Qualified Code(s): K85.90 - Acute pancreatitis without necrosis or infection, unspecified (2) Sepsis Sepsis acute organ dysfunction status: unspecified Sepsis type: sepsis due to unspecified organism Qualified Code(s): A41.9 - Sepsis, unspecified organism
[2023-01-17] MEDS ORDERED: APIXABAN 5 MG TABLET PO ONE (10:15)
[2023-01-17] MEDS: MIDODRINE HCL 2.5 MG TAB PO SCH ×2 (11:47→16:22)
[2023-01-17] MEDS ORDERED: VANCOMYCIN HCL 500 MG in DEXTROSE 5% 100 ML IV ONE (12:00)
--- NOTE | 2023-01-17 13:38 | Pharmacy Report ---
Pharmacy PK ABX Note - Date of Service January 17, 2023 - Assessment and Plan Assessment 01/17: Leukocytosis downtrending. Cultures currently negative to date. SCr with some improvement. Level 21.5 this morning. Still predicting achievement of target AUC/NICO. Will give 500 mg dose x 1 and recheck random in AM as half is still prolonged 72 year old F admitted from [place] with a history of MS, neurogenic bladder, recent hospitalization for pancreatitis/cholecysititis s/p cholecystectomy receiving VANCOMYCIN/ZOSYN for empiric treatment of sepsis- unknown source. Leukocytosis w/o fever. Pertinent microbiologic data includes: MRSA nasal swab negative, Blood cultures, urine culture pending. Recent LVQ use. h/o pseudomonas and enterococcus. Patient with prolonged half-life (>24 hours). Plan Vancomycin * Loading dose: 1750 mg IV x 1 * Maintenance dose: 500 mg IV x1 today * [facility] predicting 750 mg q24H will achieve target AUC/NICO * will get random level in AM to assist with dosing given prolonged half life Pharmacy will continue to follow and will adjust dose/frequency as necessary. Thank you. Pharmacy has transitioned to AUC monitoring for vancomycin. AUC/NICO is the preferred PK/PD target and is associated with decreased risk of nephrotoxicity compared to traditional trough targets.
[2023-01-17] MEDS: POTASSIUM CHLORIDE CRTAB 20 MEQ TABCR PO SCH ×2 (16:22→20:23)
[2023-01-17] MEDS: APIXABAN 5 MG TABLET PO SCH (20:20)
[2023-01-18] MEDS: PIPERACILLIN/TAZOBACTAM 4.5 GM in DEXTROSE 5% 100 ML IV SCH ×3 (04:42→20:20)
[2023-01-18 05:47] LABS: Basophils # (auto) 0.11 K/uL (0-0.2); Basophils % (auto) 0.5 %; Eosinophils # (auto) 2.25 K/uL (0-0.50); Eosinophils % (auto) 10.7 %; Hematocrit (blood only) 25.2 % (37.0-47.0); Hemoglobin 8.3 g/dl (12.0-16.0); Immature Granulocytes # (auto) 0.13 K/uL (0.01-0.20); Immature Granulocytes % (auto) 0.6 %; Lymphocytes # (auto) 3.24 K/uL (1.2-3.4); Lymphocytes % (auto) 15.4 %; Mean Corpuscular Hemoglobin 28.3 pg (25.0-34.0); Mean Corpuscular Hgb Conc 32.9 g/dL (32.0-36.0); Mean Platelet Volume 8.6 fL (9.4-12.4); Monocytes # (auto) 1.53 K/uL (0.11-0.59); Monocytes % (auto) 7.3 %; Neutrophils # (auto) 13.78 K/uL (1.40-6.50); Neutrophils % (auto) 65.5 %; Platelet Count 350 K/uL (130-400); RDW Coefficient of Variation 14.6 % (11.5-14.5); RDW Standard Deviation 45.7 fL (36.4-46.3); Red Blood Count 2.93 M/uL (4.20-5.40); White Blood Count 21.04 K/ul (4.8-10.8)
[2023-01-18 06:03] LABS: Bilirubin Direct 0.1 mg/dl (0-0.2); Bilirubin,Total 0.5 mg/dl (0.2-1.0); Calcium 7.8 mg/dl (8.6-10.3); Magnesium 2.3 mg/dl (1.7-2.4)
[2023-01-18 06:09] LABS: Albumin Globulin Ratio 0.5 (0.9-2); BUN Creatinine Ratio 16.5 (10-20); Creatinine Clr Calc Pharmacy 22.4 ml/min; Est GFR (African American) 22.1 ml/min; Est GFR (Non-African American) 19.1 ml/min; Globulin 3.8 gm/dl (2.5-4.0); Phosphorus 3.8 mg/dl (2.5-4.9); Total Protein 5.8 gm/dl (6.0-8.3)
--- NOTE | 2023-01-18 06:26 | Surgery Progress Note ---
Date of Service January 18, 2023 Assessment & Plan (1) Sepsis: Plan: Patient with history of acute pancreatitis with peripancreatic pseudocysts and inflammation with ascites History of bile leak-on manipulation of her drain she began to drain what appeared to be bile-now appears to be Jaron colored fluid and she had approximately 250 cc out over 12 to 18 hours She certainly could have had an element of cholangitis although her liver functions have been relatively normal Cannot be certain her stent is patent We will culture the fluid I am going to order a HIDA scan-not sure if the ICU/medical team feel she would tolerate this-we will check this a.m. I suppose she could even be draining some ascitic fluid which she obviously had on her CAT scan She seems to be off her pressors Continue IV antibiotics and diet Admission and Anticipated Discharge Date Admission Date: January 15, 2023 Results & Data Vital Signs (Past 12 Hours) Vital Signs Temp Pulse Resp BP Pulse Ox 01/18/23 05:00 36.5 C 86 20 94 01/18/23 05:00 109/64 01/18/23 04:01 92/53 L 01/18/23 04:01 36.5 C 107 H 20 95 01/18/23 04:00 36.5 C 111 H 20 94 01/18/23 03:00 36.5 C 103 H 20 95 01/18/23 03:00 102/61 01/18/23 02:00 36.5 C 98 H 20 96 01/18/23 02:00 97/59 L 01/18/23 01:00 36.6 C 110 H 20 95 01/18/23 01:00 87/59 L 01/18/23 00:00 36.6 C 109 H 19 95 01/18/23 00:00 95/58 L 01/17/23 23:00 36.8 C 117 H 21 94 01/17/23 23:00 90/64 L 01/17/23 22:00 37.0 C 108 H 19 92 01/17/23 22:00 91/58 L 01/17/23 21:00 37.0 C 108 H 20 95 01/17/23 21:00 91/60 L 01/17/23 20:05 37.2 C 132 H 22 94 01/17/23 20:05 106/63 01/17/23 20:01 37.2 C 126 H 24 93 04/19/23 20:01 89/60 L 01/17/23 20:00 37.2 C 124 H 17 86 L 01/17/23 19:00 37.1 C 136 H 24 96 01/17/23 19:00 106/58 L 01/17/23 18:30 37.0 C 144 H 26 H 97 01/17/23 18:30 91/65 L PG Care Time/CCT Total # of Minutes Spent Total Time Spent with Patient: Total time spent is greater than 50% in coordination of care (as documented) at patient's floor/unit and/or counseling patient: Coding Level of Care Code None Diagnoses Sepsis A41.9 Sepsis acute organ dysfunction status: unspecified Sepsis type: sepsis due to unspecified organism (1) Sepsis Sepsis acute organ dysfunction status: unspecified Sepsis type: sepsis due to unspecified organism Qualified Code(s): A41.9 - Sepsis, unspecified organism
[2023-01-18] MEDS: ICU ELECTROLYTE REPLACEMENT PROTOCOL SCH (06:36)
[2023-01-18] MEDS: INSULIN ASPART PER UNIT CHARGE SC SCH ×4 (06:37→23:41)
[2023-01-18] MEDS: MIDODRINE HCL 2.5 MG TAB PO SCH ×3 (08:13→17:02)
[2023-01-18] MEDS: APIXABAN 5 MG TABLET PO SCH ×2 (08:13→20:11)
[2023-01-18] MEDS: methIMAzole 5 MG TABLET PO SCH (08:13)
[2023-01-18] MEDS: SERTRALINE HCL 50 MG TABLET PO SCH (08:13)
[2023-01-18] MEDS: MENTHOL-ZINC OXIDE 360 APPLN/120 GM TUBE EXT SCH ×3 (08:14→20:17)
[2023-01-18] MEDS: AMIODARONE 200 MG TAB PO SCH (08:14)
--- NOTE | 2023-01-18 08:49 | Critical Care Consultation ---
Date of Consultation January 18, 2023 History of Present Illness Attending Physician: Nidia Page DO Allergies Allergy/AdvReac Type Severity Reaction Status Date / Time No Known Allergies Allergy Unverified 01/15/23 17:50 Home Medications Medication Instructions Recorded Confirmed Type apixaban 5 mg tablet (Eliquis) 5 mg PO BID #60 tabs 01/12/23 01/15/23 Rx levofloxacin 750 mg tablet 750 mg PO Q48H #3 tabs 01/12/23 01/15/23 Rx methimazole 5 mg tablet 5 mg PO DAILY #30 tabs 01/12/23 01/15/23 Rx acetaminophen 325 mg tablet 650 mg PO Q6 PRN Fever Or Pain 01/15/23 01/15/23 History amiodarone 200 mg tablet 200 mg PO QAM 01/15/23 01/15/23 History diclofenac sodium 1 % topical gel 2 g topical QID 01/15/23 01/15/23 History magnesium oxide 400 mg (241.3 mg 400 mg PO QAM 01/15/23 01/15/23 History magnesium) tablet menthol 0.44 %-zinc oxide 20.6 % 1 applic topical TID 01/15/23 01/15/23 History topical ointment (Calmoseptine) metoprolol succinate 50 mg 50 mg PO AMHS 01/15/23 01/15/23 History tablet,extended release 24 hr oxycodone 5 mg tablet 5 mg PO Q6 PRN pain,moderate 01/15/23 01/15/23 History oxycodone 5 mg tablet 10 mg PO Q6 PRN pain,severe 01/15/23 01/15/23 History sennosides 8.6 mg-docusate sodium 1 tab PO AMHS 01/15/23 01/15/23 History 50 mg tablet (Senokot-S) sertraline 50 mg tablet 50 mg PO QAM 01/15/23 01/15/23 History Patient History Medical History Ambulatory dysfunction d/t MS Depression History of claustrophobia Hypertension Multiple sclerosis Surgical History Hx laparoscopic cholecystectomy (12/10/22) Laparoscopic cholecystectomy with extensive lysis of adhesions, please add modifier for extensive difficulty and increased length of the procedure. 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 Other Information That Helps Us Care for You: No Feels Safe at Home: Yes Safety Concerns: Feels Safe At This Time Assistive Devices: Walker Results & Data Results & Data Vital Signs (Past 12 Hours) Vital Signs Temp Pulse Resp BP Pulse Ox 01/18/23 08:00 35.6 C L 86 19 98 01/18/23 08:00 120/66 01/18/23 07:00 35.7 C L 85 18 98 01/18/23 07:00 108/55 L 01/18/23 06:00 36.2 C L 88 20 94 01/18/23 06:00 130/66 01/18/23 05:00 36.5 C 86 20 94 01/18/23 05:00 109/64 01/18/23 04:01 92/53 L 01/18/23 04:01 36.5 C 107 H 20 95 01/18/23 04:00 36.5 C 111 H 20 94 01/18/23 03:00 36.5 C 103 H 20 95 01/18/23 03:00 102/61 01/18/23 02:00 36.5 C 98 H 20 96 01/18/23 02:00 97/59 L 01/18/23 01:00 36.6 C 110 H 20 95 01/18/23 01:00 87/59 L 01/18/23 00:00 36.6 C 109 H 19 95 01/18/23 00:00 95/58 L 01/17/23 23:00 36.8 C 117 H 21 94 01/17/23 23:00 90/64 L 01/17/23 22:00 37.0 C 108 H 19 92 01/17/23 22:00 91/58 L 01/17/23 21:00 37.0 C 108 H 20 95 01/17/23 21:00 91/60 L Coding Diagnoses
--- NOTE | 2023-01-18 08:58 | Critical Care Progress Note ---
Date of Service January 18, 2023 Assessment & Plan (1) Sepsis: (2) Acute pancreatitis: (3) Paroxysmal atrial fibrillation: (4) Hx laparoscopic cholecystectomy: (5) SAMMY (acute kidney injury): (6) Depression: (7) Multiple sclerosis: Plan Reason Critically Ill: 72 YOF admitted to ICU for shock multifactorial to include sepsis and hypovolemia. Sources to include abdomen/urine/pneumonia. Neuro - MS, generalized weakness, depression, CAM ICU: Negative - No acute needs - Generalized pain- Tylenol, Oxy IR 5 q6 prn severe pain Cardiac - Shock: resolved, PAF: Spontaneous conversion to normal sinus rhythm, HTN: Holding antihypertensives at this time - Probable intra-abdominal sepsis in origin, cannot exclude acute on chronic pancreatitis as contributing -midodrine 5 mg 3 times daily: Decreased to 2.5 mg hopefully will be able to discontinue soon - PAF continue amiodarone from prior admission -Rhythm control seems to be effective for her -Start to slowly reintroduce metoprolol -continue apixaban Respiratory - Pleural Effusion with compressive atelectasis - Can't exclude pneumonia nor parapneumonic source: however she is without hypoxia or sputum production, without oxygen requirement -Patient improving clinically for past 48 hours, very doubtful of pulmonary source GI - Pancreatitis acute on chronic, subhepatic drain s/p colectomy Severe protein calorie malnutrition per criteria: - documented weights 12/09/22 was 99 kg and 04/05/2022 was 100 kg; weight on this admission 01/15/2023 87.6 kg, >12% weight loss in 1 month - significantly reduced functional capacity -Dietary following Cachexia per criteria: -Weight loss greater than 5% body weight in less than 12 months and presence of chronic disease: Multiple sclerosis, chronic pancreatitis, chronic biliary pathology - There is volitional anorexia, D/W patient and family risks and benefits of medications such as Megace however there is no strong indication at this time given acute critical illness. No strong indication for anabolic therapy at present moment. Currently undergoing HIDA scan -If biliary stent not patent would likely require advanced endoscopic procedure. RENAL/LYTES - SAMMY: improved, Bilateral nephrolithiasis without hydro -creatinine worse today -Discontinue vancomycin - Renal consult - As above - Tomlinson placed for accurate IN/Out ENDO - HX of hyperthyroidism - TSH normal - Continue Methimazole - Random cortisol adequate HEME - Leukocytosis: Improving chronic anemia - decreased H/H - doubt active loss, probable multi-factorial - type and screen and reticulocyte count - may require epo in future, f/u nephrology consult ID - Septic shock: resolved, most likely source clinically appears to be intra- abdominal fluid collection - ABD fluid culture ordered by general surgery - No growth to date: Blood, fungal, urine: < 1000 CFU - reviewed 01/08 urine culture: dumont sensitive P. Aeruginosa, greater than 100 K CFU, 50 K CFU Enterococcus faecalis: Pansensitive - Continue Zosyn - ID connect consult to help guide ABX therapy, duration, and interpret culture data - discontinue vancomycin given worsening renal function and prior culture data LINES/IV ACCESS - PIV x2, Tomlinson catheter DVT PROPHYLAXIS - SCDS DISPO - Stable for downgrade out of ICU. Discussed with Hospitalist medicine team. Admission and Anticipated Discharge Date Admission Date: January 15, 2023 Subjective No overnight events Physical Exam Physical Exam: General: Alert. nontoxic. Skin: Warm, dry, Head: Atraumatic Ears, nose, mouth and throat: airway patent Cardiovascular: Normal peripheral perfusion Respiratory: no respiratory distress Gastrointestinal: Non distended, drain site dressed with ostomy bag. Patient is nontender nondistended hypoactive bowel sounds. No guarding no rebound Musculoskeletal: No deformity -Bilateral antecubital show areas of ecchymoses no worsening from yesterday Results & Data Results & Data Vital Signs (Past 12 Hours) Vital Signs Temp Pulse Resp BP Pulse Ox 01/18/23 08:00 35.6 C L 86 19 98 01/18/23 08:00 120/66 01/18/23 07:00 35.7 C L 85 18 98 01/18/23 07:00 108/55 L 01/18/23 06:00 36.2 C L 88 20 94 01/18/23 06:00 130/66 01/18/23 05:00 36.5 C 86 20 94 01/18/23 05:00 109/64 01/18/23 04:01 92/53 L 01/18/23 04:01 36.5 C 107 H 20 95 01/18/23 04:00 36.5 C 111 H 20 94 01/18/23 03:00 36.5 C 103 H 20 95 01/18/23 03:00 102/61 01/18/23 02:00 36.5 C 98 H 20 96 01/18/23 02:00 97/59 L 01/18/23 01:00 36.6 C 110 H 20 95 01/18/23 01:00 87/59 L 01/18/23 00:00 36.6 C 109 H 19 95 01/18/23 00:00 95/58 L 01/17/23 23:00 36.8 C 117 H 21 94 01/17/23 23:00 90/64 L 01/17/23 22:00 37.0 C 108 H 19 92 01/17/23 22:00 91/58 L 01/17/23 21:00 37.0 C 108 H 20 95 01/17/23 21:00 91/60 L Critical Care Results & Data Vital Signs (Past 12 Hours) Vital Signs Temp Pulse Resp BP Pulse Ox 01/18/23 08:00 35.6 C L 86 19 98 01/18/23 08:00 120/66 01/18/23 07:00 35.7 C L 85 18 98 01/18/23 07:00 108/55 L 01/18/23 06:00 36.2 C L 88 20 94 01/18/23 06:00 130/66 01/18/23 05:00 36.5 C 86 20 94 01/18/23 05:00 109/64 01/18/23 04:01 92/53 L 01/18/23 04:01 36.5 C 107 H 20 95 01/18/23 04:00 36.5 C 111 H 20 94 01/18/23 03:00 36.5 C 103 H 20 95 01/18/23 03:00 102/61 01/18/23 02:00 36.5 C 98 H 20 96 01/18/23 02:00 97/59 L 01/18/23 01:00 36.6 C 110 H 20 95 01/18/23 01:00 87/59 L 01/18/23 00:00 36.6 C 109 H 19 95 01/18/23 00:00 95/58 L 01/17/23 23:00 36.8 C 117 H 21 94 01/17/23 23:00 90/64 L 01/17/23 22:00 37.0 C 108 H 19 92 01/17/23 22:00 91/58 L 01/17/23 21:00 37.0 C 108 H 20 95 01/17/23 21:00 91/60 L Lab & Micro Results (Past 24 Hours) RBC 2.93 M/uL (4.20-5.40) L 01/18/23 WBC 21.04 K/ul (4.8-10.8) H 01/18/23 Hgb 8.3 g/dl (12.0-16.0) L 01/18/23 Hct 25.2 % (37.0-47.0) L 01/18/23 MCV 86.0 fL (80.0-100.0) 01/18/23 MCH 28.3 pg (25.0-34.0) 01/18/23 MCHC 32.9 g/dL (32.0-36.0) 01/18/23 RDW Standard Deviation 45.7 fL (36.4-46.3) 01/18/23 RDW Coefficient of Variation 14.6 % (11.5-14.5) H 01/18/23 Plt Count 350 K/uL (130-400) 01/18/23 MPV 8.6 fL (9.4-12.4) L 01/18/23 Neutrophils (%) (Auto) 65.5 % 01/18/23 Lymphocytes (%) (Auto) 15.4 % 01/18/23 Monocytes # (Auto) 1.53 K/uL (0.11-0.59) H 01/18/23 Eosinophils # (Auto) 2.25 K/uL (0-0.50) H 01/18/23 Immature Granulocyte % (Auto) 0.6 % 01/18/23 Neutrophils # (Auto) 13.78 K/uL (1.40-6.50) H 01/18/23 Lymphocytes # (Auto) 3.24 K/uL (1.2-3.4) 01/18/23 Monocytes # (Auto) 1.53 K/uL (0.11-0.59) H 01/18/23 Eosinophils # (Auto) 2.25 K/uL (0-0.50) H 01/18/23 Basophils # (Auto) 0.11 K/uL (0-0.2) 01/18/23 Immature Granulocyte # (Auto) 0.13 K/uL (0.01-0.20) 3 Na 136 mmol/L (136-145) 01/18/23 K 4.0 mmol/L (3.5-5.1) 01/18/23 Cl 110 mmol/L (98-107) H 01/18/23 CO2 17 mmol/L (21-32) L 01/18/23 Anion Gap 9 (3-11) 01/18/23 BUN 40 mg/dl (6-23) H 01/18/23 Creatinine 2.43 mg/dl (0.6-1.2) H 01/18/23 Estimated GFR ( Amer) 22.1 ml/min 01/18/23 Estimated GFR (Non-Af Amer) 19.1 ml/min 01/18/23 BUN/Creatinine Ratio 16.5 (10-20) 01/18/23 Glu 94 mg/dl (70-99(Fasting)) 01/18/23 Ca 7.8 mg/dl (8.6-10.3) L 01/18/23 Phosphorus Level 3.8 mg/dl (2.5-4.9) 01/18/23 Total Bilirubin 0.5 mg/dl (0.2-1.0) 01/18/23 Direct Bilirubin 0.1 mg/dl (0-0.2) 01/18/23 AST 7 U/L (13-39) L 01/18/23 ALT 8 U/L (7-52) 01/18/23 Alkaline Phosphatase 59 U/L (34-104) 01/18/23 TP 5.8 gm/dl (6.0-8.3) L 01/18/23 Albumin 2.0 gm/dl (3.4-5.0) L 01/18/23 Globulin 3.8 gm/dl (2.5-4.0) 01/18/23 Albumin/Globulin Ratio 0.5 (0.9-2) L 01/18/23 Mg 2.3 mg/dl (1.7-2.4) 01/18/23 05:31 Calcium Level 7.8 mg/dl (8.6-10.3) L 01/18/23 05:31 Microbiology 01/15/23 16:58 Aerobic Blood Culture - Preliminary Blood No growth in Aerobic bottle after 48 hours. Anaerobic Blood Culture - Final 01/15/23 16:49 Aerobic Blood Culture - Preliminary Blood No growth in Aerobic bottle after 48 hours. Anaerobic Blood Culture - Preliminary No growth in Anaerobic bottle after 48 hours. 01/16/23 00:15 Urine Culture - Preliminary Urine,Clean Catch No growth - Less than 1,000 colonies/mL, Final report to follow. I & O Totals 24 Hours 01/17/23 01/18/23 01/19/23 06:59 06:59 06:59 Intake Total 5755.366 / 5755.366 863.410 / 863.410 30 / 30 Output Total 775 / 775 1250 / 1250 60 / 60 Balance 4980.366 / 4980.366 -386.590 / -386.590 -30 / -30 Cumulative 01/15/23 16:20 thru 01/18/23 08:00 Intake Total 80934.106 Output Total 2320 Balance 9234.106 RT Ventilator Mngmt (Last Documented) Ventilator Ordered Settings Respiratory Rate 19 01/18/23 08:00 Ventilator - PT Measurements Respiratory Rate 19 Coding Level of Care Code 48009 SUB INP/OBS CARE 3/50MIN Diagnoses Sepsis A41.9 Sepsis acute organ dysfunction status: unspecified Sepsis type: sepsis due to unspecified organism Acute pancreatitis K85.90 Acute pancreatitis complication: unspecified Pancreatitis type: unspecified pancreatitis type Paroxysmal atrial fibrillation I48.0 Hx laparoscopic cholecystectomy Z90.49 SAMMY (acute kidney injury) N17.9 Depression F32.A Multiple sclerosis G35 (1) Sepsis Sepsis acute organ dysfunction status: unspecified Sepsis type: sepsis due to unspecified organism Qualified Code(s): A41.9 - Sepsis, unspecified organism (2) Acute pancreatitis Acute pancreatitis complication: unspecified Pancreatitis type: unspecified pancreatitis type Qualified Code(s): K85.90 - Acute pancreatitis without necrosis or infection, unspecified
--- NOTE | 2023-01-18 09:03 | Gastroenterology Progress Note ---
Date of Service January 18, 2023 Assessment & Plan (1) Acute pancreatitis: (2) Sepsis: Plan: 72 year old female with history of pancreatitis s/p choledocholithiasis removal via ERCP, biliary stent placement last month, cholecystectomy complicated by bile leak managed by MIMI drain in tima hepatis area admitted w/ sepsis, abdominal pain. CT showed decreased pancreatic fluid collection, + L pleural effusion concerning for pneumonia. Biliary stent in good position w pneumobilia. MIMI drain was manipulated by Surgery and is now draining more. Blood and urine cultures negative, fungal culture pending, biliary fluid culture ordered. LFTs normal. - Will discuss with attending and with Dr. Mcneill given previous ERCP history - As LFTs WNL and drain in place, no acute indication for GI intervention such as repeat ERCP at this time - Agree with culture of drain fluid - Follow up HIDA if able to be completed - Continue IV antibx broad spectrum coverage - Sepsis management per ICU/primary team Thank you for allowing us to participate in the care of this patient. Please call with any acute changes, questions or concerns. Please see addendum below with additional recommendation from my supervising physician. HIDA reviewed, consistent with a bile leak. Can continue diet today. NPO after midnight for ERCP Sunday. Admission and Anticipated Discharge Date Admission Date: January 15, 2023 Supervising Physician Co-Signing Physician Notes Attending attestation I have seen, examined this patient, and agree with the findings and above by our mid-level provider ROSHAN Yusuf, with the following additions: -HIDA scan positive, will plan for ERCP tomorrow -NPO after MN - Patient improving Subjective GI was asked to re-evaluate. History of choledocholithiasis, acute pancreatitis, severe necrotizing acute on chronic cholecystitis, s/p ERCP for bile leak with stent placement discharged on 01/12 Readmitted 01/15 for fevers, CT showed decreased pancreatic fluid collection, + L pleural effusion concerning for pneumonia. Biliary stent in good position w pneumobilia. Persistent output from MIMI drain, bilious to start then began to appear brown. Appears culture and HIDA were ordered this AM Blood culture and urine culture negative to date Fungal culture pending WBC 34 --> 39 --> 30 --> 24 On Zosyn Family at beside. Notes symptoms unchanged, some abd pain and some chills. Fluid in bag is brown HGB stable LFTs normal CTAP 2022: Redemonstration of severe acute pancreatitis which appears similar to the 12/31/2022 exam. Peripancreatic fluid collections are suboptimally evaluated without the use of IV contrast however the dominant collection adjacent to the pancreatic head has decreased in size. Postoperative changes of prior cholecystectomy with air and fluid-filled structure again noted within the tima hepatis, possibly representing residual gallbladder versus postoperative fluid collection. Common bile duct stent in satisfactory positioning with pneumobilia.Unchanged positioning of the right subhepatic percutaneous drainage catheter.Bilateral nephrolithiasis without ureteral calculi or hydronephrosis. Moderate left pleural effusion has increased in size with progressive left basilar consolidation suggestive of atelectasis versus pneumonia.Increased amount of abdominal left upper quadrant ascites. Review of Systems Review of Systems: All systems reviewed & are unremarkable except as noted in HPI & below Physical Exam Constitutional: + ill appearing (chronically ill appearing) Respiratory: normal respiratory effort Gastrointestinal (Abdomen): Percussion/Palpation: + abdomen tender and abdomen soft; no guarding and abdomen not rigid + brownish fluid draining Skin: no rashes, warm and dry Results & Data Vital Signs (Past 12 Hours) Vital Signs Temp Pulse Resp BP Pulse Ox 01/18/23 08:00 35.6 C L 86 19 98 01/18/23 08:00 120/66 01/18/23 07:00 35.7 C L 85 18 98 01/18/23 07:00 108/55 L 01/18/23 06:00 36.2 C L 88 20 94 01/18/23 06:00 130/66 01/18/23 05:00 36.5 C 86 20 94 01/18/23 05:00 109/64 01/18/23 04:01 92/53 L 01/18/23 04:01 36.5 C 107 H 20 95 01/18/23 04:00 36.5 C 111 H 20 94 01/18/23 03:00 36.5 C 103 H 20 95 01/18/23 03:00 102/61 01/18/23 02:00 36.5 C 98 H 20 96 01/18/23 02:00 97/59 L 01/18/23 01:00 36.6 C 110 H 20 95 01/18/23 01:00 87/59 L 01/18/23 00:00 36.6 C 109 H 19 95 01/18/23 00:00 95/58 L 01/17/23 23:00 36.8 C 117 H 21 94 01/17/23 23:00 90/64 L 01/17/23 22:00 37.0 C 108 H 19 92 01/17/23 22:00 91/58 L 01/17/23 21:00 37.0 C 108 H 20 95 01/17/23 21:00 91/60 L Laboratory Results 01/18/23 01/18/23 01/18/23 Range/Units 05:31 05:31 05:31 WBC 21.04 H (4.8-10.8) K/ul RBC 2.93 L (4.20-5.40) M/uL Hgb 8.3 L (12.0-16.0) g/dl Hct 25.2 L (37.0-47.0) % MCV 86.0 (80.0-100.0) fL MCH 28.3 (25.0-34.0) pg MCHC 32.9 (32.0-36.0) g/dL RDW Std Deviation 45.7 (36.4-46.3) fL RDW Coeff of Mandy 14.6 H (11.5-14.5) % Plt Count 350 (130-400) K/uL MPV 8.6 L (9.4-12.4) fL Immature Gran % (Auto) 0.6 % Neut % (Auto) 65.5 % Lymph % (Auto) 15.4 % [place] % (Auto) 7.3 % Eos % (Auto) 10.7 % Baso % (Auto) 0.5 % Neut # (Auto) 13.78 H (1.40-6.50) K/uL Lymph # (Auto) 3.24 (1.2-3.4) K/uL [place] # (Auto) 1.53 H (0.11-0.59) K/uL Eos # (Auto) 2.25 H (0-0.50) K/uL Baso # (Auto) 0.11 (0-0.2) K/uL Immature Gran # (Auto) 0.13 (0.01-0.20) K/uL Sodium 136 (136-145) mmol/L Potassium 4.0 (3.5-5.1) mmol/L Chloride 110 H (98-107) mmol/L Carbon Dioxide 17 L (21-32) mmol/L Anion Gap 9 (3-11) BUN 40 H (6-23) mg/dl Creatinine 2.43 H D (0.6-1.2) mg/dl Est Cr Clr Drug Dosing 22.4 ml/min Est GFR ( Amer) 22.1 ml/min Est GFR (Non-Af Amer) 19.1 ml/min BUN/Creatinine Ratio 16.5 (10-20) Glucose 94 (70-99(Fasting)) mg/dl POC Glucose (70-99) mg/dl Calcium 7.8 L (8.6-10.3) mg/dl Phosphorus 3.8 (2.5-4.9) mg/dl Magnesium 2.3 (1.7-2.4) mg/dl Total Bilirubin 0.5 (0.2-1.0) mg/dl Direct Bilirubin 0.1 (0-0.2) mg/dl AST 7 L (13-39) U/L ALT 8 (7-52) U/L Alkaline Phosphatase 59 (34-104) U/L Total Protein 5.8 L (6.0-8.3) gm/dl Albumin 2.0 L (3.4-5.0) gm/dl Globulin 3.8 (2.5-4.0) gm/dl Albumin/Globulin Ratio 0.5 L (0.9-2) Random Vancomycin 20.6 H (10-20) mcg/ml 01/17/23 01/17/23 01/17/23 Range/Units 23:37 16:27 11:49 WBC (4.8-10.8) K/ul RBC (4.20-5.40) M/uL Hgb (12.0-16.0) g/dl Hct (37.0-47.0) % MCV (80.0-100.0) fL MCH (25.0-34.0) pg MCHC (32.0-36.0) g/dL RDW Std Deviation (36.4-46.3) fL RDW Coeff of Mandy (11.5-14.5) % Plt Count (130-400) K/uL MPV (9.4-12.4) fL Immature Gran % (Auto) % Neut % (Auto) % Lymph % (Auto) % [place] % (Auto) % Eos % (Auto) % Baso % (Auto) % Neut # (Auto) (1.40-6.50) K/uL Lymph # (Auto) (1.2-3.4) K/uL [place] # (Auto) (0.11-0.59) K/uL Eos # (Auto) (0-0.50) K/uL Baso # (Auto) (0-0.2) K/uL Immature Gran # (Auto) (0.01-0.20) K/uL Sodium (136-145) mmol/L Potassium (3.5-5.1) mmol/L Chloride (98-107) mmol/L Carbon Dioxide (21-32) mmol/L Anion Gap (3-11) BUN (6-23) mg/dl Creatinine (0.6-1.2) mg/dl Est Cr Clr Drug Dosing ml/min Est GFR ( Amer) ml/min Est GFR (Non-Af Amer) ml/min BUN/Creatinine Ratio (10-20) Glucose (70-99(Fasting)) mg/dl POC Glucose 119 H 150 H 139 H (70-99) mg/dl Calcium (8.6-10.3) mg/dl Phosphorus (2.5-4.9) mg/dl Magnesium (1.7-2.4) mg/dl Total Bilirubin (0.2-1.0) mg/dl Direct Bilirubin (0-0.2) mg/dl AST (13-39) U/L ALT (7-52) U/L Alkaline Phosphatase (34-104) U/L Total Protein (6.0-8.3) gm/dl Albumin (3.4-5.0) gm/dl Globulin (2.5-4.0) gm/dl Albumin/Globulin Ratio (0.9-2) Random Vancomycin (10-20) mcg/ml (1) Acute pancreatitis Acute pancreatitis complication: unspecified Pancreatitis type: unspecified pancreatitis type Qualified Code(s): K85.90 - Acute pancreatitis without necrosis or infection, unspecified (2) Sepsis Sepsis acute organ dysfunction status: unspecified Sepsis type: sepsis due to unspecified organism Qualified Code(s): A41.9 - Sepsis, unspecified organism
--- NOTE | 2023-01-18 11:16 | Nuclear Medicine Report ---
NUCLEAR MEDICINE HEPATOBILIARY SCAN HISTORY: assess for bile leak, CBD obstruction COMPARISON: Abdomen and pelvis CT 01/15/2023. TECHNIQUE: Immediately following the intravenous administration of 5.5 mCi Tc-99m Choletec, dynamic a nterior abdominal imaging was performed. FINDINGS: Uniform hepatic tracer accumulation is shown. Radiotracer is seen accumulating within the gallbladder fossa and draining into the percutaneous catheter within the right upper quadrant. Therefore, this i s consistent with a bile leak. The common bile duct was not identified during the examination. Theref ore this could be due to preferential flow of bile into the gallbladder fossa or possibly common bile duct obstruction. IMPRESSION: 1. Accumulation of radiotracer within the gallbladder fossa and right upper quadrant drainage cathete r consistent with a bile leak. 2. Radiotracer was not identified within the common bile duct which could be due to preferential flow of bile into the gallbladder fossa or possibly a common bile duct obstruction. ACT 112: Negative or not required by law. Electronically signed by: Dannie Chowdhury M.D. 01/18/2023 11:15 AM
--- NOTE | 2023-01-18 11:40 | Nephrology Consultation ---
Date of Consultation January 18, 2023 Assessment & Plan (1) Acute renal failure: Stage I nonoliguric ischemic ATN most likely versus interstitial nephritis. Her baseline creatinine as recently as the middle of last month was actually 0.9. During mid November to mid December extended admission for cholangitis and pancreatitis with complications, she had acute renal failure requiring several treatments of intermittent hemodialysis, with last treatment January 01. Her renal function recovered sufficiently to stop hemodialysis. Her discharge creatinine was 1.8 on January 12. Her presenting creatinine this admission on January 15 was 2; with lability since admission, creatinine ranges 2-2.4 she has generally not been oliguric, though urine output seems to be a bit lower today than prior days. Of note also 1/2 L output documented from her MIMI drain in the past 24 hours. Granular casts noted on admission urine which was also sterile, making urinary source for sepsis far less likely. -f/u pending cxs and continue broad spectrum abtx -continue blood pressure support including Midodrine currently Dose vancomycin by level >> will discuss with pharmacy no indication at this time to discuss reinitiating dialysis ; cannot rule out need this admission - NAGMA likely from NS resuscitation, now discontinued History of Present Illness Reason for Consultation: Acute on chronic renal failure Requesting Physician: Dr. Reyes Attending Physician: Nidia Page, History of Present Illness 72-year-old female whom I am asked to see for acute on chronic renal failure was admitted here early on January 16 for hypovolemic and septic shock in the setting of acute on chronic pancreatitis; also with possible pneumonia and/or UTI contributing. Past medical history includes extended December 09 to January 12, 2023 admission here for acute gallstone pancreatitis and acute cholangitis with pancreatic pseudocyst requiring subtotal lap adele and ERCP with sphincterotomy and bile duct stent placement complicated by postoperative bile leak requiring drain placement in the setting of severe omental and colonic adhesions as well as stage III acute kidney injury requiring acute dialysis. Her admitting creatinine for that admission was 0.9 with peak value two 8.4 on December 18 and 1.8 by hospital discharge. During that admission, she also had new onset atrial fibrillation and was discharged on blood thinners. Other medical history includes multiple sclerosis, hypertension, obesity, anxiety, hyperthyroid on methimazole. She was admitted to the ICU for pressor support. This was weaned and Midodrine 5 mg 3 times daily was added. Noted on presentation to have L pleural effusion however pneumonia lower on the differential. Her right upper quadrant drain put out 500 mL of fluid into her colostomy bag past 24 hrs. currently receiving empiric therapy with Zosyn and vancomycin. Blood and urine cultures remain negative to date. her presenting creatinine this admission was 2; creatinine since admission has hovered between 2 and 2.4. Some periods of extended hypotension with systolic blood pressures in the 80s and 90s, including in the past 24 hours. HIDA scan this morning read as positive for a bile leak. She is for ERCP and stent exchange tomorrow. Ongoing poor appetite. Denies shortness of breath. Denies recent fevers or abdominal pain. No edema. Allergies Allergy/AdvReac Type Severity Reaction Status Date / Time No Known Allergies Allergy Unverified 01/15/23 17:50 Home Medications Medication Instructions Recorded Confirmed Type apixaban 5 mg tablet (Eliquis) 5 mg PO BID #60 tabs 01/12/23 01/15/23 Rx levofloxacin 750 mg tablet 750 mg PO Q48H #3 tabs 01/12/23 01/15/23 Rx methimazole 5 mg tablet 5 mg PO DAILY #30 tabs 01/12/23 01/15/23 Rx acetaminophen 325 mg tablet 650 mg PO Q6 PRN Fever Or Pain 01/15/23 01/15/23 History amiodarone 200 mg tablet 200 mg PO QAM 01/15/23 01/15/23 History diclofenac sodium 1 % topical gel 2 g topical QID 01/15/23 01/15/23 History magnesium oxide 400 mg (241.3 mg 400 mg PO QAM 01/15/23 01/15/23 History magnesium) tablet menthol 0.44 %-zinc oxide 20.6 % 1 applic topical TID 01/15/23 01/15/23 History topical ointment (Calmoseptine) metoprolol succinate 50 mg 50 mg PO AMHS 01/15/23 01/15/23 History tablet,extended release 24 hr oxycodone 5 mg tablet 5 mg PO Q6 PRN pain,moderate 01/15/23 01/15/23 History oxycodone 5 mg tablet 10 mg PO Q6 PRN pain,severe 01/15/23 01/15/23 History sennosides 8.6 mg-docusate sodium 1 tab PO AMHS 01/15/23 01/15/23 History 50 mg tablet (Senokot-S) sertraline 50 mg tablet 50 mg PO QAM 01/15/23 01/15/23 History Patient History Medical History (Updated 01/18/23 @ 11:25 by Radha Barnett MD, PhD) Acute renal failure Required several dialysis treatments during mid November to mid December 2022 admission Ambulatory dysfunction d/t MS Bile leak from gallbladder bed Cholangitis Depression History of claustrophobia Hypertension Hyperthyroidism Multiple sclerosis Pancreatitis Surgical History Hx laparoscopic cholecystectomy (12/10/22) Laparoscopic cholecystectomy with extensive lysis of adhesions, please add modifier for extensive difficulty and increased length of the procedure. Social History Smoking Status: Former smoker Smoking End Date: 1989; Second Hand Exposure: No; Do You Dip or Chew Tobacco: No; Tobacco Cessation Education Requested by Patient: No Hx Alcohol Use: No Hx Substance Use: No Preferred Language: Spanish Communication Ability: Effective Visual Impairment: No Limitations Bias Machine Operator Required: No Beliefs That Will Affect Care: None marital status: Single Current Living Situation: [facility] current occupational status: retired Other Information That Helps Us Care for You: No Feels Safe at Home: Yes Safety Concerns: Feels Safe At This Time Assistive Devices: Walker Review of Systems Review of Systems: All systems reviewed & are unremarkable except as noted in HPI & below Physical Exam Constitutional: well developed and well nourished Eyes: EOM intact bilaterally ENMT: Ears: no external ear abnormality Nose: no external nose abnormality Mouth: + dry oral mucous membranes Neck: no nuchal rigidity Respiratory: normal respiratory effort Auscultation: + diminished lung sounds and + crackles (Bibasilar) Cardiovascular: Rate/Rhythm: regular rate and regular rhythm Gastrointestinal (Abdomen): Inspection/Auscultation: normal bowel sounds, + abdominal surgical drain present and + high-pitched sounds Percussion/Palpation: abdomen soft; abdomen nontender Musculoskeletal: Extremities: strength 5/5 throughout Skin: no rashes, warm and dry Neurologic: mccurdy, fluent speech, no tremor Psychiatric: Orientation: alert and oriented x 3 Results & Data Vital Signs (Past 12 Hours) Vital Signs Temp Pulse Resp BP Pulse Ox O2 Del Method 01/18/23 08:00 35.6 C L 86 19 98 01/18/23 08:00 120/66 01/18/23 07:00 35.7 C L 85 18 98 01/18/23 07:00 108/55 L 01/18/23 06:00 36.2 C L 88 20 94 01/18/23 06:00 130/66 01/18/23 08:00 Room Air 01/18/23 05:00 36.5 C 86 20 94 01/18/23 05:00 109/64 01/18/23 04:01 92/53 L 01/18/23 04:01 36.5 C 107 H 20 95 01/18/23 04:00 36.5 C 111 H 20 94 01/18/23 03:00 36.5 C 103 H 20 95 01/18/23 03:00 102/61 01/18/23 02:00 36.5 C 98 H 20 96 01/18/23 02:00 97/59 L 01/18/23 01:00 36.6 C 110 H 20 95 01/18/23 01:00 87/59 L 01/18/23 00:00 36.6 C 109 H 19 95 01/18/23 00:00 95/58 L Laboratory Results 01/18/23 05:31 01/18/23 05:31 Presenting urinalysis: Granular casts, cloudy yellow urine with pH 5, specific gravity 1015, 2+ protein and blood and leukocyte Estrace with greater than 30 white cells and no bacteria Diagnostic Findings HIDA scan today 1. Accumulation of radiotracer within the gallbladder fossa and right upper quadrant drainage catheter consistent with a bile leak. 2. Radiotracer was not identified within the common bile duct which could be due to preferential flow of bile into the gallbladder fossa or possibly a common bile duct obstruction. CT abdomen pelvis Noncon admission FINDINGS: Small to moderate left pleural effusion with left basilar consolidation has progressively worsened from prior. Trace right pleural effusion with moderate basilar atelectasis. Limited exam without the use of IV contrast. Upper abdominal ascites has increased within the abdominal left upper quadrant and perisplenic distribution with mild mass effect upon the adjacent spleen. Unremarkable adrenal glands. Severe pancreatitis redemonstrated with similar appearance of the interstitial and peripancreatic inflammation. Peripancreatic fluid collections are again noted, suboptimally evaluated without the use of IV contrast. 2.5 cm collection adjacent to the pancreatic head on image 179 previously measured 3.9 cm. A 3.4 cm fluid attenuating structure within the abdominal left upper quadrant is new from prior, possibly loculated ascites versus acute peripancreatic fluid collection. Unremarkable liver. Intrahepatic and extrahepatic pneumobilia is redemonstrated with a common bile duct stent in place. Air and fluid-filled structure within the tima hepatis measures 5.4 x 2.7 cm on image 138 which is similar in appearance and size to the 12/31/2022 exam. A right subhepatic percutaneous drainage catheter is in unchanged positioning. Decreased subcutaneous collection adjacent to the catheter tract. Numerous nonobstructing bilateral renal calculi are noted measuring up to 11 mm on the left 11 mm on the right. Mild nonspecific bilateral perinephric stranding. No ureteral calculi or hydronephrosis. Unremarkable urinary bladder and uterus. Atherosclerosis aorta. Wall thickening of the duodenum is likely reactive. No bowel obstruction or bowel wall thickening. Unremarkable soft tis sues. No acute fracture. IMPRESSION: 1. Redemonstration of severe acute pancreatitis which appears similar to the 12/31/2022 exam. Peripancreatic fluid collections are suboptimally evaluated without the use of IV contrast however the dominant collection adjacent to the pancreatic head has decreased in size. 2. Postoperative changes of prior cholecystectomy with air and fluid-filled structure again noted within the tima hepatis, possibly representing residual gallbladder versus postoperative fluid collection. 3. Common bile duct stent in satisfactory positioning with pneumobilia. 4. Unchanged positioning of the right subhepatic percutaneous drainage catheter. 5. Bilateral nephrolithiasis without ureteral calculi or hydronephrosis. 6. Moderate left pleural effusion has increased in size with progressive left basilar consolidation suggestive of atelectasis versus pneumonia. 7. Increased amount of abdominal left upper quadrant ascites. Chest x-ray admission . Cardiomegaly without overt pulmonary edema. 2. Layering left pleural effusion with left basilar predominant consolidation suggestive of atelectasis versus pneumonia.
[2023-01-18 11:48] LABS: Reticulocyte % 2.3 % (0.5-2.0); Reticulocytes # 0.07 10^6/uL (0.02-0.10)
--- NOTE | 2023-01-18 14:24 | Hospitalist Progress Note ---
Date of Service January 18, 2023 Assessment & Plan (1) Septic shock: Plan: Patient was recently hospitalized for about a month during which she was managed for acute pancreatitis, acute cholangitis, septic shock, acute renal failure requiring dialysis briefly, paroxysmal A-fib. Underwent ERCP on 12/10 with removal of stones from the bile duct. Underwent lap adele with extensive lysis of adhesions on 12/10 by general surgery. Was discharged to long-term facility and represented with abdominal and back pain. Labs on presentation showed worsening leukocytosis, worsening renal function and has been hypotensive. Being managed for septic shock. Currently on Levophed which was weaned off around 5pm today (01/17). Sources of sepsis include possible intra-abdominal infection considering recent severe pancreatitis, surgical subhepatic drain in situ, recent UTI. ?acute on chronic pancreatitis CT abdomen and pelvis without contrast on admission noted redemonstration of severe acute pancreatitis similar to 12/31/2022, CBD stent in satisfactory position, unchanged position of right subhepatic percutaneous drainage, bilateral nephrolithiasis without ureteral calculi or hydronephrosis, moderate left pleural effusion increased in size with left basilar consolidation suggestive of atelectasis, increased amount of abdominal left upper quadrant ascites Continue on zosyn for now Follow up infectious workup Has pleural effusion (left) on CT abd/pelvis. Not in resp distress but she does have a slight cough. Oxygenating well on room air. (2) SAMMY (acute kidney injury): Plan: Worsening renal function in setting of septic shock, around 2.4. Recent temporary dialysis last month which she is off of now. Nephro following. (3) Hyperthyroidism: Plan: Patient on methimazole which is known to have a side effect of pancreatitis. However, will cont for now as this pancreatitis is improved clinically and there are more likely causes/contributing factors. (4) Pleural effusion, left: Plan: hopeful this will improve after stent exchange in am, if no improvement, may need to consider throracentesis. (5) Acute renal failure: (6) Acute pancreatitis: Plan Surgery eval and rec noted GI eval noted Discussed care plan with integrated specialist. Currently, she is clinically improved. Therefore, transfer to a tertiary care facility is not indicated at this time. Now off pressors, transferred out of the ICU. DVT ppx- apixaban Full code Dispo-uncertain at this time. Discussed plan with daughter by phone and boyfriend at bedside with patient. Reviewed the carre plan and options with integrated specialist and nephrology. I spent a total of 50 minutes coordinating, documenting and providing care for this patient excluding time spent in performance of separately billed services DO Kendall Hessoss healthyared Hospitalist Admission and Anticipated Discharge Date Admission Date: January 15, 2023 Subjective 72 yo F presented with severe pancreatitis and sepsis she is reporting no pain she feels her decubitus ulcer is healing she is reporting a dry cough which is evident in the exam and likely 2/2 left pleural effusion HIDA today with possible CBD stent blockage planned for ERCP with stent exchange in am Review of Systems Review of Systems: All systems were reviewed and negative except as indicated above. Physical Exam Physical Exam: CONSTITUTIONAL: WNWD, vitals as above, NAD EYES: normal conjunctivae, no scleral icterus ENT: external ear and nose normal, MMM NECK: trachea midline RESPIRATORY: clear to auscultation bilaterally, no crackles, rales or wheezes, normal respiratory effort CARDIOVASCULAR: regular rate and rhythm, S1 and 2 heard without murmurs, gallops or rubs, no JVD, no peripheral edema CHEST: inspection of chest was normal GASTROINTESTINAL: soft, nontender, ND, no guarding, colostomy bag over actively draining bile leak in abdominal wall. MUSCULOSKELETAL: strength 5/5 throughout, head is normocephalic and atraumatic SKIN: warm and dry. NEUROLOGIC: CN 2-12 grossly intact, no sensory deficit, normal cognition, normal speech, no tremor PSYCHIATRIC: alert cooperative and answering questions appropriately Results & Data Results & Data Vital Signs (Past 12 Hours) Vital Signs Temp Pulse Resp BP Pulse Ox O2 Del Method 01/18/23 13:00 35.9 C L 87 20 100 01/18/23 12:00 35.8 C L 86 18 99 01/18/23 12:00 139/68 01/18/23 11:23 133/85 01/18/23 11:23 35.7 C L 86 19 100 01/18/23 11:14 35.7 C L 90 5 L 92 01/18/23 09:00 35.6 C L 85 19 98 01/18/23 09:00 110/57 L 01/18/23 08:00 35.6 C L 86 19 98 01/18/23 08:00 120/66 01/18/23 07:00 35.7 C L 85 18 98 01/18/23 07:00 108/55 L 01/18/23 06:00 36.2 C L 88 20 94 01/18/23 06:00 130/66 01/18/23 08:00 Room Air 01/18/23 05:00 36.5 C 86 20 94 01/18/23 05:00 109/64 01/18/23 04:01 92/53 L 01/18/23 04:01 36.5 C 107 H 20 95 01/18/23 04:00 36.5 C 111 H 20 94 01/18/23 03:00 36.5 C 103 H 20 95 01/18/23 03:00 102/61 Laboratory Results Short CBC 01/18/23 Range/Units 05:31 WBC 21.04 H (4.8-10.8) K/ul Hgb 8.3 L (12.0-16.0) g/dl Hct 25.2 L (37.0-47.0) % Plt Count 350 (130-400) K/uL BMP 01/18/23 05:31 Sodium 136 Potassium 4.0 Chloride 110 H Carbon Dioxide 17 L BUN 40 H Creatinine 2.43 H D Glucose 94 Calcium 7.8 L Liver Function 01/18/23 Range/Units 05:31 Total Bilirubin 0.5 (0.2-1.0) mg/dl Direct Bilirubin 0.1 (0-0.2) mg/dl AST 7 L (13-39) U/L ALT 8 (7-52) U/L Alkaline Phosphatase 59 (34-104) U/L Albumin 2.0 L (3.4-5.0) gm/dl Diagnostic Findings Hepatobiliary Scan Nuclear Medicine 01/18/23 06:17 NUCLEAR MEDICINE HEPATOBILIARY SCAN HISTORY: assess for bile leak, CBD obstruction COMPARISON: Abdomen and pelvis CT 01/15/2023. TECHNIQUE: Immediately following the intravenous administration of 5.5 mCi Tc- 99m Choletec, dynamic anterior abdominal imaging was performed. FINDINGS: Uniform hepatic tracer accumulation is shown. Radiotracer is seen accumulating within the gallbladder fossa and draining into the percutaneous catheter within the right upper quadrant. Therefore, this is consistent with a bile leak. The common bile duct was not identified during the examination. Therefore this could be due to preferential flow of bile into the gallbladder fossa or possibly common bile duct obstruction. IMPRESSION: 1. Accumulation of radiotracer within the gallbladder fossa and right upper quadrant drainage catheter consistent with a bile leak. 2. Radiotracer was not identified within the common bile duct which could be due to preferential flow of bile into the gallbladder fossa or possibly a common bile duct obstruction. ACT 112: Negative or not required by law. Electronically signed by: Dannie Chowdhury M.D. 01/18/2023 11:15 AM Medications Administered Current Inpatient Medications Acetaminophen (Acetaminophen 325 Mg Tab) 650 mg PO Q6 PRN PRN Reason: Fever Or MILD Pain Stop: 02/14/23 23:34 Last Admin: 01/17/23 08:19 Dose: 650 mg Amiodarone HCl (Amiodarone 200 Mg Tab) 200 mg PO QAM VANDANA Stop: 02/15/23 08:59 Last Admin: 01/18/23 08:14 Dose: 200 mg Apixaban (Apixaban 5 Mg Tablet) 5 mg PO BID VANDANA Stop: 02/15/23 08:59 Last Admin: 01/18/23 08:13 Dose: 5 mg Calamine/Phenol (Menthol-Zinc Oxide 360 Appln/120 Gm Tube) 1 appln EXT TID VANDANA Stop: 02/15/23 08:59 Last Admin: 01/18/23 08:14 Dose: 1 appln Dextrose (Dextrose 50% 50 Ml Syringe) 25 - 50 ml IV UD PRN; Protocol PRN Reason: Hypoglycemia Protocol Stop: 02/15/23 08:04 Glucagon (Glucagon For Inj 1 Mg Vial) 1 mg SQ UD PRN; Protocol PRN Reason: Hypoglycemia Protocol Stop: 02/15/23 08:04 Glucose (Glucose 40% Gel 15 Gm Tube) 15 - 30 gm PO UD PRN; Protocol PRN Reason: Hypoglycemia Protocol Stop: 02/15/23 08:04 Glucose (Glucose 10 Tab/Tube) 4 - 8 tab PO UD PRN; Protocol PRN Reason: Hypoglycemia Treatment Stop: 02/15/23 08:04 Piperacillin Sod/Tazobactam (Sod 4.5 gm/ Dextrose) 120 mls @ 30 mls/hr IV Q8H VANDANA; Protocol Stop: 01/26/23 03:59 Last Admin: 01/18/23 12:50 Dose: 30 mls/hr Acetaminophen (Ofirmev) 1,000 mg in 100 mls @ 400 mls/hr IV Q8H PRN PRN Reason: pain or fever Stop: 01/19/23 00:14 Insulin Aspart (Insulin Aspart Per Unit Charge) 0 units SC Q6 [facility] Stop: 02/15/23 08:14 Last Admin: 01/18/23 12:51 Dose: Not Given Magnesium Oxide (Magnesium Oxide 400 Mg Tab) 400 mg PO QAM [facility] Stop: 02/15/23 08:59 Methimazole (Methimazole 5 Mg Tablet) 5 mg PO DAILY [facility] Stop: 02/15/23 08:59 Last Admin: 01/18/23 08:13 Dose: 5 mg Midodrine (Midodrine Hcl 2.5 Mg Tab) 5 mg PO TID@0800,1200,1700 [facility] Stop: 02/16/23 11:59 Last Admin: 01/18/23 12:50 Dose: 5 mg Miscellaneous (Carbohydrates For Hypoglycemia ) 15 - 30 gm PO UD PRN PRN Reason: Hypoglycemia Protocol Stop: 02/15/23 08:04 Miscellaneous (Icu Electrolyte Replacement Protocol) 1 each N/A BID@,18 [facility]; Protocol Stop: 01/24/23 05:59 Last Admin: 01/18/23 06:36 Dose: 1 each Oxycodone HCl (Oxycodone Hcl Ir 5 Mg Tab (Immediate Release)) 10 mg PO Q6 PRN PRN Reason: pain,severe Stop: 01/30/23 00:14 Last Admin: 01/17/23 04:36 Dose: 10 mg Sertraline HCl (Sertraline Hcl 50 Mg Tablet) [facility] [place] Stop: 02/15/23 08:59 Last Admin: 01/18/23 08:13 Dose: 50 mg (6) Acute pancreatitis Acute pancreatitis complication: unspecified Pancreatitis type: unspecified pancreatitis type Qualified Code(s): K85.90 - Acute pancreatitis without necrosis or infection, unspecified
--- NOTE | 2023-01-18 14:31 | Infectious Disease Consult ---
Date of Consultation January 18, 2023 Assessment & Plan (1) Pancreatitis: (2) Bile leak from gallbladder bed: (3) Acute renal failure: Plan 72 yo F with history of obesity, HTN, anxiety, chronic neurogenic bladder, osteoporosis, MS, recent admission (12/09 - 01/12) for acute gallstone pancreatitis s/p ERCP with stent placement and subtotal laparoscopic cholecystectomy c/b bile leak with MIMI drain placement and Pseudomonas/Enterococcus UTI discharged on levofloxacin, who presented on 01/15 with back/abdominal pain, hypotension requiring pressors, leukocytosis to 34, found on CT to have continued pancreatitis and peripancreatic fluid collections. CT A/P (without contrast) also showed upper abdominal ascites, new 3.4 cm fluid attenuating structure within LUQ, possibly loculated ascites vs acute peripancreatic fluid collection, postop changes of cholecystectomy with air and fluid-filled structure again noted in tima hepatis, possibly representing residual gallbladder vs postop fluid collection, CBD stent in satisfactory positioning, unchanged positioning of R subhepatic percutaneous drainage catheter. The MIMI drain may not have been draining well initially, but after manipulation by Surgery is now draining more. Pt is also being followed by GI. 01/18 HIDA scan shows accumulation of radiotracer within gallbladder fossa and RUQ drainage catheter c/w bile leak, and radiotracer not identified within CBD which could be due to preferential flow of bile into gallbladder fossa or possibly a CBD obstruction. Suspect her sepsis is secondary to undrained peripancreatic collections. Hope that with MIMI drain manipulation, the drainage has improved. Her WBC has downtrended to 21, weaned off pressors on 01/17. Cr remains elevated at 2.43. The decubitus ulcers pictured from 01/17 do not appear infected. She does have some L basilar pleural effusion/consolidation suggestive of atelectasis vs pneumonia, but pt is on room air. Micro: 01/18 RUQ abd drain cx: pending. GS--pending 01/16 Fungal BCx: NGTD 01/16 MRSA nares: negative 01/16 UCx: NG 01/15 BCx x2: NGTD 01/08 UCx: Pseudomonas, E faecalis (S levo) 12/18 Fungal BCx: NG 12/17 MIMI drainage fluid: NG. GS--negative. Abx: Zosyn 01/15 - present Vanc 01/15 - 01/17 Problems: #Peripancreatic fluid collections #Acute gallstone pancreatitis s/p ERCP with stent placement, subtotal lap adele c/b bile leak with MIMI drain placement (12/10/22) #SAMMY: required temporary HD last admission #Decubitus ulcers: do not appear infected on wound image #Atelectasis vs PNA Recommendations: -Follow-up MIMI drainage culture -Continue pip-tazo -Agree with discontinuing vancomycin -Await GI/surgery recs based on HIDA scan -Can new LUQ fluid collection seen on CT be drained? -Anticipate continuing a longer course of antibiotics (does not have to be IV) until improvement/resolution of intra-abdominal fluid collections is seen on CT Will continue to follow Consultation Information This patient recommendation is based on a telemedicine consult request which was completed asynchronously through chart review and information provided by the primary physician. The patient was not seen or examined today. The evaluation is consultative in nature and all patient care and treatment decisions can either be accepted or rejected by the patient's primary hospital-based treating physician using their own independent medical judgment for their patient. Tool And Fixture Repairer contact information: Please call [facility] [phone]. (Phone Number For Physician Use Only) Time Spent Reviewing Chart: 31+ minutes History of Present Illness Reason for Consultation: Intra-abdominal infection Requesting Physician: Dr. Aram Reyes Attending Physician: Nidia Page DO History of Present Illness 72 yo F with history of obesity, HTN, anxiety, chronic neurogenic bladder, osteoporosis, MS, recent admission (12/09 - 01/12) for acute gallstone pancreatitis s/p ERCP with stent placement and subtotal laparoscopic cholecystectomy c/b bile leak with MIMI drain placement and Pseudomonas/Enterococcus UTI discharged on levofloxacin, who presented on 01/15 with back and abdominal pain, hypotension, abnormal labs. On presentation, T 37.7, BP 71/37, RR 24, 92% on room air. Labs showed WBC 34.2, Cr 2.39, normal LFTs, lipase 287, procalcitonin 0.94, COVID-19 negative. UA with >30 WBCs, >30 epis, 1-5 granular casts. CXR showed cardiomegaly without overt pulmonary edema, layering L pleural effusion with L basilar predominant consolidation suggestive of atelectasis vs PNA. CT A/P without contrast redmonstrated severe acute pancreatitis (similar to 12/31 exam), peripancreatic fluid collections suboptimally evaluated due to lack of contrast, but dominant collection adjacent to pancreatic head has decreased in size; new 3.4 cm fluid collection in LUQ possibly loculated ascites vs acute peripancreatic fluid collection; postop changes of cholecystectomy with air and fluid-filled structure again noted in tima hepatis, possibly representing residual gallbladder vs postop fluid collection, CBD stent in satisfactory positioning, unchanged positioning of R subhepatic percutaneous drainage catheter. Pt was hypotensive despite fluids, so started on pressors, as well as vanc and Zosyn. Surgery evaluated and did not feel surgical intervention was needed. Pt was noted to have torn stitch holding the MIMI drain, and it was not holding suction. Per notes, with manipulation of the MIMI drain by Surgery, it began draining more. Pt was weaned off of pressors on 01/17. WBC has downtrended to 21. Cr remains elevated at 2.43. Today, HIDA scan shows accumulation of radiotracer within gallbladder fossa and RUQ drainage catheter c/w bile leak, and radiotracer not identified within CBD which could be due to preferential flow of bile into gallbladder fossa or possibly a CBD obstruction. Allergies Allergy/AdvReac Type Severity Reaction Status Date / Time No Known Allergies Allergy Unverified 01/15/23 17:50 Home Medications Medication Instructions Recorded Confirmed Type apixaban 5 mg tablet (Eliquis) 5 mg PO BID #60 tabs 01/12/23 01/15/23 Rx levofloxacin 750 mg tablet 750 mg PO Q48H #3 tabs 01/12/23 01/15/23 Rx methimazole 5 mg tablet 5 mg PO DAILY #30 tabs 01/12/23 01/15/23 Rx acetaminophen 325 mg tablet 650 mg PO Q6 PRN Fever Or Pain 01/15/23 01/15/23 History amiodarone 200 mg tablet 200 mg PO QAM 01/15/23 01/15/23 History diclofenac sodium 1 % topical gel 2 g topical QID 01/15/23 01/15/23 History magnesium oxide 400 mg (241.3 mg 400 mg PO QAM 01/15/23 01/15/23 History magnesium) tablet menthol 0.44 %-zinc oxide 20.6 % 1 applic topical TID 01/15/23 01/15/23 History topical ointment (Calmoseptine) metoprolol succinate 50 mg 50 mg PO AMHS 01/15/23 01/15/23 History tablet,extended release 24 hr oxycodone 5 mg tablet 5 mg PO Q6 PRN pain,moderate 01/15/23 01/15/23 History oxycodone 5 mg tablet 10 mg PO Q6 PRN pain,severe 01/15/23 01/15/23 History sennosides 8.6 mg-docusate sodium 1 tab PO AMHS 01/15/23 01/15/23 History 50 mg tablet (Senokot-S) sertraline 50 mg tablet 50 mg PO QAM 01/15/23 01/15/23 History Patient History Medical History (Updated 01/18/23 @ 11:25 by Radha Barnett MD, PhD) Acute renal failure Required several dialysis treatments during mid November to mid December 2022 admission Ambulatory dysfunction d/t MS Bile leak from gallbladder bed Cholangitis Depression History of claustrophobia Hypertension Hyperthyroidism Multiple sclerosis Pancreatitis Surgical History Hx laparoscopic cholecystectomy (12/10/22) Laparoscopic cholecystectomy with extensive lysis of adhesions, please add modifier for extensive difficulty and increased length of the procedure. Social History Smoking Status: Former smoker Smoking End Date: 1989; Second Hand Exposure: No; Do You Dip or Chew Tobacco: No; Tobacco Cessation Education Requested by Patient: No Hx Alcohol Use: No Hx Substance Use: No Preferred Language: Niuean Communication Ability: Effective Visual Impairment: No Limitations Fabricating Machine Operator Required: No Beliefs That Will Affect Care: None marital status: Single Current Living Situation: Half-Way current occupational status: retired Other Information That Helps Us Care for You: No Feels Safe at Home: Yes Safety Concerns: Feels Safe At This Time Assistive Devices: Walker Review of System Pt was not seen Physical Exam Physical Exam: Pt was not seen Results & Data Vital Signs (Past 12 Hours) Vital Signs Temp Pulse Resp BP Pulse Ox O2 Del Method 01/18/23 13:00 35.9 C L 87 20 100 01/18/23 12:00 35.8 C L 86 18 99 01/18/23 12:00 139/68 01/18/23 11:23 133/85 01/18/23 11:23 35.7 C L 86 19 100 01/18/23 11:14 35.7 C L 90 5 L 92 01/18/23 09:00 35.6 C L 85 19 98 01/18/23 09:00 110/57 L 01/18/23 08:00 35.6 C L 86 19 98 01/18/23 08:00 120/66 01/18/23 07:00 35.7 C L 85 18 98 01/18/23 07:00 108/55 L 01/18/23 06:00 36.2 C L 88 20 94 01/18/23 06:00 130/66 01/18/23 08:00 Room Air 01/18/23 05:00 36.5 C 86 20 94 01/18/23 05:00 109/64 01/18/23 04:01 92/53 L 01/18/23 04:01 36.5 C 107 H 20 95 01/18/23 04:00 36.5 C 111 H 20 94 01/18/23 03:00 36.5 C 103 H 20 95 01/18/23 03:00 102/61 01/18/23 02:00 36.5 C 98 H 20 96 01/18/23 02:00 97/59 L Laboratory Results Short CBC 01/18/23 Range/Units 05:31 WBC 21.04 H (4.8-10.8) K/ul Hgb 8.3 L (12.0-16.0) g/dl Hct 25.2 L (37.0-47.0) % Plt Count 350 (130-400) K/uL BMP 01/18/23 05:31 Sodium 136 Potassium 4.0 Chloride 110 H Carbon Dioxide 17 L BUN 40 H Creatinine 2.43 H D Glucose 94 Calcium 7.8 L Liver Function 01/18/23 Range/Units 05:31 Total Bilirubin 0.5 (0.2-1.0) mg/dl Direct Bilirubin 0.1 (0-0.2) mg/dl AST 7 L (13-39) U/L ALT 8 (7-52) U/L Alkaline Phosphatase 59 (34-104) U/L Albumin 2.0 L (3.4-5.0) gm/dl Diagnostic Findings Chest X-Ray 01/15/23 16:50 XR chest 1V not portable HISTORY: 72 years-old Female Sepsis acute sepsis COMPARISON: Chest radiograph 12/26/2022 TECHNIQUE: AP view of the chest FINDINGS: Cardiac silhouette is enlarged. Status post removal of the hemodialysis catheter. No pneumothorax. Left greater than right pleural effusions with dense left basilar consolidation. Bones appear grossly intact. IMPRESSION: 1. Cardiomegaly without overt pulmonary edema. 2. Layering left pleural effusion with left basilar predominant consolidation suggestive of atelectasis versus pneumonia. ACT 112: Negative or not required by law. The above report was generated using voice recognition software. It may contain grammatical, syntax or spelling errors. Electronically signed by: Nick Stone M.D. 01/15/2023 5:30 PM Abdomen/Pelvis CT 01/15/23 17:[address] WITHOUT CONTRAST CT DOSE: 762.37 mGy.cm HISTORY: Acute fever with generalized abdominal pain status post cholecystectomy. fever, SP adele TECHNIQUE: Multiaxial CT images of the abdomen and pelvis were performed without contrast. A dose lowering technique was utilized adhering to the principles of ALARA. COMPARISON STUDY: 12/31/2022, 12/17/2022 FINDINGS: Small to moderate left pleural effusion with left basilar consolidation has progressively worsened from prior. Trace right pleural effusion with moderate basilar atelectasis. Limited exam without the use of IV contrast. Upper abdominal ascites has increased within the abdominal left upper quadrant and perisplenic distribution with mild mass effect upon the adjacent spleen. Unremarkable adrenal glands. Severe pancreatitis redemonstrated with similar appearance of the interstitial and peripancreatic inflammation. Peripancreatic fluid collections are again noted, suboptimally evaluated without the use of IV contrast. 2.5 cm collection adjacent to the pancreatic head on image 179 previously measured 3.9 cm. A 3.4 cm fluid attenuating structure within the abdominal left upper quadrant is new from prior, possibly loculated ascites versus acute peripancreatic fluid collection. Unremarkable liver. Intrahepatic and extrahepatic pneumobilia is redemonstrated with a common bile duct stent in place. Air and fluid-filled structure within the tima hepatis measures 5.4 x 2.7 cm on image 138 which is similar in appearance and size to the 12/31/2022 exam. A right subhepatic percutaneous drainage catheter is in unchanged positioning. Decreased subcutaneous collection adjacent to the catheter tract. Numerous nonobstructing bilateral renal calculi are noted measuring up to 11 mm on the left 11 mm on the right. Mild nonspecific bilateral perinephric stranding. No ureteral calculi or hydronephrosis. Unremarkable urinary bladder and uterus. Atherosclerosis aorta. Wall thickening of the duodenum is likely reactive. No bowel obstruction or bowel wall thickening. Unremarkable soft tissues. No acute fracture. IMPRESSION: 1. Redemonstration of severe acute pancreatitis which appears similar to the 12/31/2022 exam. Peripancreatic fluid collections are suboptimally evaluated without the use of IV contrast however the dominant collection adjacent to the pancreatic head has decreased in size. 2. Postoperative changes of prior cholecystectomy with air and fluid-filled structure again noted within the tima hepatis, possibly representing residual gallbladder versus postoperative fluid collection. 3. Common bile duct stent in satisfactory positioning with pneumobilia. 4. Unchanged positioning of the right subhepatic percutaneous drainage catheter. 5. Bilateral nephrolithiasis without ureteral calculi or hydronephrosis. 6. Moderate left pleural effusion has increased in size with progressive left basilar consolidation suggestive of atelectasis versus pneumonia. 7. Increased amount of abdominal left upper quadrant ascites. ACT 112: Negative or not required by law. The above report was generated using voice recognition software. It may contain grammatical, syntax or spelling errors. Electronically signed by: Nick Stone M.D. 01/15/2023 6:48 PM Hepatobiliary Scan Nuclear Medicine 01/18/23 06:17 NUCLEAR MEDICINE HEPATOBILIARY SCAN HISTORY: assess for bile leak, CBD obstruction COMPARISON: Abdomen and pelvis CT 01/15/2023. TECHNIQUE: Immediately following the intravenous administration of 5.5 mCi Tc- 99m Choletec, dynamic anterior abdominal imaging was performed. FINDINGS: Uniform hepatic tracer accumulation is shown. Radiotracer is seen accumulating within the gallbladder fossa and draining into the percutaneous catheter within the right upper quadrant. Therefore, this is consistent with a bile leak. The common bile duct was not identified during the examination. Therefore this could be due to preferential flow of bile into the gallbladder fossa or possibly common bile duct obstruction. IMPRESSION: 1. Accumulation of radiotracer within the gallbladder fossa and right upper quadrant drainage catheter consistent with a bile leak. 2. Radiotracer was not identified within the common bile duct which could be due to preferential flow of bile into the gallbladder fossa or possibly a common bile duct obstruction. ACT 112: Negative or not required by law. Electronically signed by: Dannie Chowdhury M.D. 01/18/2023 11:15 AM Medications Administered Current Inpatient Medications Acetaminophen (Acetaminophen 325 Mg Tab) 650 mg PO Q6 PRN PRN Reason: Fever Or MILD Pain Stop: 02/14/23 23:34 Last Admin: 01/17/23 08:19 Dose: 650 mg Amiodarone HCl (Amiodarone 200 Mg Tab) 200 mg PO QAM VANDANA Stop: 02/15/23 08:59 Last Admin: 01/18/23 08:14 Dose: 200 mg Apixaban (Apixaban 5 Mg Tablet) 5 mg PO BID VANDANA Stop: 02/15/23 08:59 Last Admin: 01/18/23 08:13 Dose: 5 mg Calamine/Phenol (Menthol-Zinc Oxide 360 Appln/120 Gm Tube) 1 appln EXT TID VANDANA Stop: 02/15/23 08:59 Last Admin: 01/18/23 08:14 Dose: 1 appln Dextrose (Dextrose 50% 50 Ml Syringe) 25 - 50 ml IV UD PRN; Protocol PRN Reason: Hypoglycemia Protocol Stop: 02/15/23 08:04 Glucagon (Glucagon For Inj 1 Mg Vial) 1 mg SQ UD PRN; Protocol PRN Reason: Hypoglycemia Protocol Stop: 02/15/23 08:04 Glucose (Glucose 40% Gel 15 Gm Tube) 15 - 30 gm PO UD PRN; Protocol PRN Reason: Hypoglycemia Protocol Stop: 02/15/23 08:04 Glucose (Glucose 10 Tab/Tube) 4 - 8 tab PO UD PRN; Protocol PRN Reason: Hypoglycemia Treatment Stop: 02/15/23 08:04 Piperacillin Sod/Tazobactam (Sod 4.5 gm/ Dextrose) 120 mls @ 30 mls/hr IV Q8H VANDANA; Protocol Stop: 01/26/23 03:59 Last Admin: 01/18/23 12:50 Dose: 30 mls/hr Acetaminophen (Ofirmev) 1,000 mg in 100 mls @ 400 mls/hr IV Q8H PRN PRN Reason: pain or fever Stop: 01/19/23 00:14 Insulin Aspart (Insulin Aspart Per Unit Charge) 0 units SC Q6 VANDANA Stop: 02/15/23 08:14 Last Admin: 01/18/23 12:51 Dose: Not Given Magnesium Oxide (Magnesium Oxide 400 Mg Tab) 400 mg PO QAM [facility] Stop: 02/15/23 08:59 Methimazole (Methimazole 5 Mg Tablet) 5 mg PO DAILY [facility] Stop: 02/15/23 08:59 Last Admin: 01/18/23 08:13 Dose: 5 mg Midodrine (Midodrine Hcl 2.5 Mg Tab) 5 mg PO TID@0800,1200,1700 [facility] Stop: 02/16/23 11:59 Last Admin: 01/18/23 12:50 Dose: 5 mg Miscellaneous (Carbohydrates For Hypoglycemia ) 15 - 30 gm PO UD PRN PRN Reason: Hypoglycemia Protocol Stop: 02/15/23 08:04 Miscellaneous (Icu Electrolyte Replacement Protocol) 1 each N/A BID@,18 [facility]; Protocol Stop: 01/24/23 05:59 Last Admin: 01/18/23 06:36 Dose: 1 each Oxycodone HCl (Oxycodone Hcl Ir 5 Mg Tab (Immediate Release)) 10 mg PO Q6 PRN PRN Reason: pain,severe Stop: 01/30/23 00:14 Last Admin: 01/17/23 04:36 Dose: 10 mg Sertraline HCl (Sertraline Hcl 50 Mg Tablet) 50 mg PO QAM [facility] Stop: 02/15/23 08:59 Last Admin: 01/18/23 08:13 Dose: 50 mg
[2023-01-19] MEDS: PIPERACILLIN/TAZOBACTAM 4.5 GM in DEXTROSE 5% 100 ML IV SCH ×3 (03:46→20:45)
[2023-01-19] MEDS: INSULIN ASPART PER UNIT CHARGE SC SCH ×4 (05:58→20:48)
[2023-01-19 06:46] LABS: BUN Creatinine Ratio 16.1 (10-20); Calcium 7.9 mg/dl (8.6-10.3); Creatinine Clr Calc Pharmacy 21.1 ml/min; Est GFR (African American) 20.3 ml/min; Est GFR (Non-African American) 17.5 ml/min; Magnesium 2.2 mg/dl (1.7-2.4); Phosphorus 4.2 mg/dl (2.5-4.9); Potassium 3.8 mmol/L (3.5-5.1)
[2023-01-19] MEDS ORDERED: LIDOCAINE 2% LOCAL 50 ML VIAL ONE (08:08)
--- NOTE | 2023-01-19 08:32 | Communication Note ---
Date of Service: January 19, 2023 Pt was seen and evaluated, chart reviewed. Denies any new concerns this AM. Is agreeable to ERCP today for treatment of suspected bile leak. Will keep NPO in anticipation of procedure. We appreciate assistance in the management of any serological abnormality and corrections to include: hemoglobin >7, INR <2, platelets >50,000, potassium levels >3.5 but <5.3, and sodium levels within 5 points of the reference range prior to endoscopic evaluation. We are planning to do ERCP today for suspected bile leak. We have discussed the risks of the procedure to include bleeding infection perforation pain and need for follow-up studies and persistent bile leak.
--- NOTE | 2023-01-19 08:46 | Surgery Progress Note ---
Date of Service January 19, 2023 Assessment & Plan (1) Sepsis: Plan: HIDA scan obtained yesterday with evidence of bile leak and possible common bile duct obstruction GI to take patient for ERCP today for further evaluation and management Drain in RUQ draining bilious fluid, will come by later today to suture in place. Cultures are still pending Infectious disease is following along, currently on IV zosyn At some point may need to consider IR intervention for ascites vs peripancreatic fluid collections seen on CT [facility] covering the weekend (2) Bile leak from gallbladder bed: Admission and Anticipated Discharge Date Admission Date: January 15, 2023 Supervising Physician Co-Signing Physician Notes Dr. Whittaker It is likely the patient occluded her stent and developed cholangitis Now draining significant bilious fluid from her large MIMI drain which I did so in place today Patient is for ERCP and stent replacement today After that diet as tolerated from a surgical standpoint If patient needs more aggressive intervention she may need to be transferred for tertiary interventional radiology Obviously continue antibiotics, check cultures Dr. Murcia is covering over the weekend Subjective Patient feeling anxious about upcoming ERCP, given reassurance. She denies any abdominal pain/n/v. Was tolerating a diet before made NPO for procedure. Physical Exam Physical Exam: awake/alert, somewhat anxious appearing Respiratory: normal respiratory effort Gastrointestinal (Abdomen): Percussion/Palpation: abdomen soft; abdomen nontender drain in place with bilious output (MIMI drain tubing with ostomy appliance overtop, no bulb) Results & Data Vital Signs (Past 12 Hours) Vital Signs Temp Pulse Pulse Resp BP Pulse Ox O2 Del Method 01/19/23 07:45 36.3 C L 83 16 102/69 95 Room Air 01/19/23 03:21 36.5 C 84 18 136/71 94 Room Air 01/18/23 23:30 89 01/18/23 23:00 36.4 C L 88 18 119/89 94 Room Air PG Care Time/CCT Total # of Minutes Spent Total Time Spent with Patient: Total time spent is greater than 50% in coordination of care (as documented) at patient's floor/unit and/or counseling patient: Coding Level of Care Code None Diagnoses Sepsis A41.9 Sepsis acute organ dysfunction status: unspecified Sepsis type: sepsis due to unspecified organism Bile leak from gallbladder bed K83.8 (1) Sepsis Sepsis acute organ dysfunction status: unspecified Sepsis type: sepsis due to unspecified organism Qualified Code(s): A41.9 - Sepsis, unspecified organism
--- NOTE | 2023-01-19 09:37 | Nephrology Progress Note ---
Date of Service January 19, 2023 Assessment & Plan (1) Acute renal failure: Plan: Stage I nonoliguric ischemic ATN most likely versus interstitial nephritis, slightly worse today. not oliguric; bile drain OP nearly = UOP Her baseline creatinine as recently as the middle of last month was actually 0.9. During mid November to mid December extended admission for cholangitis and pancreatitis with complications, she had acute renal failure requiring several treatments of intermittent hemodialysis, with last treatment January 01. Her renal function recovered sufficiently to stop hemodialysis. Her discharge creatinine was 1.8 on January 12. Her presenting creatinine this admission on January 15 was 2; with lability since admission, creatinine ranges 2-2.4 w/o oliguria. Granular casts noted on admission urine which was also sterile, making urinary source for sepsis far less likely. -f/u pending cxs and continue broad spectrum abtx -continue blood pressure support including Midodrine currently no need for lactated Ringer's and hold parameters put on the Midodrine for systolics greater than 110 At family request we can change Tom[place]inson for a pure wick; for right now perfect measurement of urine output is not essential though this could change vanco stopped now; continues on zosyn no indication at this time to discuss reinitiating dialysis ; cannot rule out need this admission - NAGMA likely from NS resuscitation, now discontinued > may need to consider low rate of bicarb infusion if persistent; would avoid po as will only worsen her appetite already poor Admission and Anticipated Discharge Date Admission Date: January 15, 2023 Subjective Tolerated ERCP well today. Procedure revealed sludge in the common bile duct as well as contrast in the cystic duct remnant treated with placement of a covered metal stent: If MIMI drainage remains brisk will need to have stent changed out for other device. Patient remains with minimal oral intake. Postprocedure her blood pressure was fairly high in the 150s. Denies abdominal pain or shortness of breath Review of Systems Review of Systems: All systems reviewed & are unremarkable except as noted in Subjective Physical Exam Constitutional: well developed and well nourished Eyes: EOM intact bilaterally ENMT: Ears: no external ear abnormality Nose: no external nose abnormality Mouth: + dry oral mucous membranes Neck: no nuchal rigidity Respiratory: normal respiratory effort Auscultation: + diminished lung sounds and + crackles (Bibasilar) Cardiovascular: Rate/Rhythm: regular rate and regular rhythm Gastrointestinal (Abdomen): Inspection/Auscultation: normal bowel sounds and + abdominal surgical drain present Percussion/Palpation: abdomen soft; abdomen nontender Musculoskeletal: Extremities: strength 5/5 throughout Skin: no rashes, warm and dry Neurologic: no tremor; BLE weakness, fluent speech Psychiatric: Orientation: alert and oriented x 3 Results & Data Vital Signs (Past 12 Hours) Vital Signs Temp Pulse Pulse Resp BP Pulse Ox O2 Del Method 01/19/23 07:45 36.3 C L 83 16 102/69 95 Room Air 01/19/23 03:21 36.5 C 84 18 136/71 94 Room Air 01/18/23 23:30 89 01/18/23 23:00 36.4 C L 88 18 119/89 94 Room Air Laboratory Results 01/18/23 05:31 01/19/23 05:50
[2023-01-19] MEDS: APIXABAN 5 MG TABLET PO SCH ×3 (10:05→20:45)
[2023-01-19] MEDS: AMIODARONE 200 MG TAB PO SCH (10:05)
[2023-01-19] MEDS: SERTRALINE HCL 50 MG TABLET PO SCH (10:05)
[2023-01-19] MEDS: MIDODRINE HCL 2.5 MG TAB PO SCH ×3 (10:06→17:37)
[2023-01-19] MEDS: methIMAzole 5 MG TABLET PO SCH (10:06)
[2023-01-19] MEDS: MENTHOL-ZINC OXIDE 360 APPLN/120 GM TUBE EXT SCH ×3 (10:06→20:49)
[2023-01-19] MEDS: MAGNESIUM OXIDE 400 MG TAB PO SCH (10:11)
--- NOTE | 2023-01-19 13:02 | Hospitalist Progress Note ---
Date of Service January 19, 2023 Assessment & Plan (1) Septic shock: Plan: Patient was recently hospitalized for about a month during which she was managed for acute pancreatitis, acute cholangitis, septic shock, acute renal failure requiring dialysis briefly, paroxysmal A-fib. Underwent ERCP on 12/10 with removal of stones from the bile duct. Underwent lap adele with extensive lysis of adhesions on 12/10 by general surgery. Was discharged to correction facility and represented with abdominal and back pain. Labs on presentation showed worsening leukocytosis, worsening renal function and has been hypotensive. Being managed for septic shock. Currently on Levophed which was weaned off around 5pm today (01/17). Sources of sepsis include possible intra-abdominal infection considering recent severe pancreatitis, surgical subhepatic drain in situ, recent UTI. ?acute on chronic pancreatitis CT abdomen and pelvis without contrast on admission noted redemonstration of severe acute pancreatitis similar to 12/31/2022, CBD stent in satisfactory position, unchanged position of right subhepatic percutaneous drainage, bilateral nephrolithiasis without ureteral calculi or hydronephrosis, moderate left pleural effusion increased in size with left basilar consolidation suggestive of atelectasis, increased amount of abdominal left upper quadrant ascites Continue on zosyn for now Follow up infectious workup Has pleural effusion (left) on CT abd/pelvis. Not in resp distress but she does have a slight cough. Oxygenating well on room air. (2) Hyperthyroidism: Plan: Patient on methimazole which is known to have a side effect of pancreatitis. However, will cont for now as this pancreatitis is improved clinically and there are more likely causes/contributing factors. (3) Pleural effusion, left: Plan: hopeful this will improve after stent exchange in am, if no improvement, may need to consider throracentesis. Notably cough seems to be improving . Will repeat CXR in am. Currently oxygenating 98% on 2LPM. (4) Acute renal failure: Plan: Worsening renal function in setting of septic shock, around 2.6. Recent temporary dialysis last month which she is off of now. Nephro following. (5) Acute pancreatitis: Plan s/p ERCP today with bile duct stent exchange. Bile leak was noted intraoperatively. New transcutaneous drain in place draining into colostomy bag. She is recovering well, slightly lethargic. Not much interested in food at this time. Oriented. Boyfriend at bedside and I updated daughter by phone. All questions were answered to their satisfaction. DVT ppx- apixaban Full code Dispo-to rehab next week. I spent a total of 50 minutes coordinating, documenting and providing care for this patient excluding time spent in performance of separately billed services DO Lisbeth Hess Hospitalist Admission and Anticipated Discharge Date Admission Date: January 15, 2023 Subjective 72 yo F presented with severe pancreatitis and sepsis she is reporting no pain feeling well post procedure cough seems to be improving. Review of Systems Review of Systems: All systems were reviewed and negative except as indicated above. Physical Exam Physical Exam: CONSTITUTIONAL: WNWD, vitals as above, NAD EYES: normal conjunctivae, no scleral icterus ENT: external ear and nose normal, MMM NECK: trachea midline RESPIRATORY: clear to auscultation bilaterally, no crackles, rales or wheezes, normal respiratory effort CARDIOVASCULAR: regular rate and rhythm, S1 and 2 heard without murmurs, gallops or rubs, no JVD, no peripheral edema CHEST: inspection of chest was normal GASTROINTESTINAL: soft, nontender, ND, no guarding, colostomy bag over actively draining bile leak in abdominal wall. There is a new drain in place coming from the abdomen. MUSCULOSKELETAL: strength 5/5 throughout, head is normocephalic and atraumatic SKIN: warm and dry. NEUROLOGIC: CN 2-12 grossly intact, no sensory deficit, normal cognition, normal speech, no tremor PSYCHIATRIC: lethargic, cooperative and answering questions appropriately Results & Data Results & Data Vital Signs (Past 12 Hours) Vital Signs Temp Pulse Resp BP Pulse Ox O2 Del Method 01/19/23 11:54 36.4 C L 88 20 132/90 96 Room Air 01/19/23 07:45 36.3 C L 83 16 102/69 95 Room Air 01/19/23 03:21 36.5 C 84 18 136/71 94 Room Air Laboratory Results BMP 01/19/23 05:50 Sodium 138 Potassium 3.8 Chloride 110 H Carbon Dioxide 18 L BUN 42 H Creatinine 2.61 H Glucose 86 Calcium 7.9 L Medications Administered Current Inpatient Medications Acetaminophen (Acetaminophen 325 Mg Tab) 650 mg PO Q6 PRN PRN Reason: Fever Or MILD Pain Stop: 02/14/23 23:34 Last Admin: 01/17/23 08:19 Dose: 650 mg Amiodarone HCl (Amiodarone 200 Mg Tab) 200 mg PO QAM [facility] Stop: 02/15/23 08:59 Last Admin: 01/19/23 10:05 Dose: 200 mg Apixaban (Apixaban 5 Mg Tablet) 5 mg PO BID VANDANA Stop: 02/15/23 08:59 Last Admin: 01/18/23 20:11 Dose: 5 mg Calamine/Phenol (Menthol-Zinc Oxide 360 Appln/120 Gm Tube) 1 appln EXT TID VANDANA Stop: 02/15/23 08:59 Last Admin: 01/19/23 10:06 Dose: 1 appln Dextrose (Dextrose 50% 50 Ml Syringe) 25 - 50 ml IV UD PRN; Protocol PRN Reason: Hypoglycemia Protocol Stop: 02/15/23 08:04 Glucagon (Glucagon For Inj 1 Mg Vial) 1 mg SQ UD PRN; Protocol PRN Reason: Hypoglycemia Protocol Stop: 02/15/23 08:04 Glucose (Glucose 40% Gel 15 Gm Tube) 15 - 30 gm PO UD PRN; Protocol PRN Reason: Hypoglycemia Protocol Stop: 02/15/23 08:04 Glucose (Glucose 10 Tab/Tube) 4 - 8 tab PO UD PRN; Protocol PRN Reason: Hypoglycemia Treatment Stop: 02/15/23 08:04 Piperacillin Sod/Tazobactam (Sod 4.5 gm/ Dextrose) 120 mls @ 30 mls/hr IV Q8H [facility]; Protocol Stop: 01/26/23 03:59 Last Admin: 01/19/23 12:34 Dose: 30 mls/hr Insulin Aspart (Insulin Aspart Per Unit Charge) 0 units SC Q6 VANDANA Stop: 02/15/23 08:14 Last Admin: 01/19/23 12:26 Dose: Not Given Magnesium Oxide (Magnesium Oxide 400 Mg Tab) 400 mg PO QAM VANDANA Stop: 02/15/23 08:59 Last Admin: 01/19/23 10:11 Dose: 400 mg Methimazole (Methimazole 5 Mg Tablet) 5 mg PO DAILY VANDANA Stop: 02/15/23 08:59 Last Admin: 01/19/23 10:06 Dose: 5 mg Midodrine (Midodrine Hcl 2.5 Mg Tab) 5 mg PO TID@0800,1200,1700 [facility] Stop: 02/16/23 11:59 Last Admin: 01/19/23 12:26 Dose: Not Given Miscellaneous (Carbohydrates For Hypoglycemia ) 15 - 30 gm PO UD PRN PRN Reason: Hypoglycemia Protocol Stop: 02/15/23 08:04 Oxycodone HCl (Oxycodone Hcl Ir 5 Mg Tab (Immediate Release)) 10 mg PO Q6 PRN PRN Reason: pain,severe Stop: 01/30/23 00:14 Last Admin: 01/17/23 04:36 Dose: 10 mg Sertraline HCl (Sertraline Hcl 50 Mg Tablet) [address] [facility] Stop: 02/15/23 08:59 Last Admin: 01/19/23 10:05 Dose: 50 mg (5) Acute pancreatitis Acute pancreatitis complication: unspecified Pancreatitis type: unspecified pancreatitis type Qualified Code(s): K85.90 - Acute pancreatitis without necrosis or infection, unspecified
[2023-01-19] MEDS ORDERED: ATROPINE SULFATE 0.1 MG/ML 10ML SYR IV PRN (13:32)
[2023-01-19] MEDS ORDERED: fentaNYL citrate PF 100 MCG/2 ML VIAL IV PRN (13:32)
[2023-01-19] MEDS ORDERED: ONDANSETRON INJ 2 MG/ML 2 ML VIAL IV PRN (13:32)
[2023-01-19] MEDS ORDERED: LABETALOL HCL IV 5 MG/ML 20ML IV PRN (13:32)
[2023-01-19] MEDS ORDERED: ALBUTEROL 0.083% NEBU SOLN 3 ML VIAL INH PRN (13:32)
[2023-01-19] MEDS ORDERED: ePHEDrine sulfate 50 MG/ML AMP IV PRN (13:32)
--- NOTE | 2023-01-19 13:32 | Anesthesiology Consultation ---
Date of Service January 19, 2023 Assessment & Plan Consults Requested medical & cardiac Pulmonary ASA [id number] Proposed Anesthesia Anesthesia Type: General History Surgery Operation Date: 01/19/23 07:00 Proposed Procedures p Endoscopic Retrograde Cholangiopancreatogram - Dwain Murcia DO Height/Weight Height: 5 ft 4 in Weight: 91.7 kg Allergies Allergy/AdvReac Type Severity Reaction Status Date / Time No Known Allergies Allergy Unverified 01/15/23 17:50 Medications Home Medications Medication Instructions Recorded Confirmed Last Taken apixaban 5 mg tablet (Eliquis) 5 mg PO BID #60 tabs 01/12/23 01/15/23 01/15/23 08:30 levofloxacin 750 mg tablet 750 mg PO Q48H #3 tabs 01/12/23 01/15/23 01/14/23 am methimazole 5 mg tablet 5 mg PO DAILY #30 tabs 01/12/23 01/15/23 01/15/23 08:30 acetaminophen 325 mg tablet 650 mg PO Q6 PRN Fever Or Pain 01/15/23 01/15/23 Unknown amiodarone 200 mg tablet 200 mg PO QAM 01/15/23 01/15/23 01/15/23 am diclofenac sodium 1 % topical gel 2 g topical QID 01/15/23 01/15/23 01/15/23 08:30 magnesium oxide 400 mg (241.3 mg 400 mg PO QAM 01/15/23 01/15/23 01/15/23 08:30 magnesium) tablet menthol 0.44 %-zinc oxide 20.6 % 1 applic topical TID 01/15/23 01/15/23 01/15/23 12:30 topical ointment (Calmoseptine) metoprolol succinate 50 mg 50 mg PO [facility] 01/15/23 01/15/23 01/15/23 08:30 tablet,extended release 24 hr oxycodone 5 mg tablet 5 mg PO Q6 PRN pain,moderate 01/15/23 01/15/23 01/14/23 oxycodone 5 mg tablet 10 mg PO Q6 PRN pain,severe 01/15/23 01/15/23 01/15/23 12:16 sennosides 8.6 mg-docusate sodium 1 tab PO [facility] 01/15/23 01/15/2323 08:30 50 mg tablet (Senokot-S) sertraline 50 mg tablet 50 mg PO QAM 01/15/23 01/15/23 01/15/23 am Active Medications Generic Name Dose Route Start Last Admin Trade Name Freq PRN Reason Stop Dose Admin Acetaminophen 650 mg 01/15/23 23:35 01/17/23 08:19 Acetaminophen 325 Mg Tab PO 02/14/23 23:34 650 mg Q6 PRN Administration Fever Or MILD Pain Amiodarone HCl 200 mg 01/16/23 09:00 01/19/23 10:05 Amiodarone 200 Mg Tab PO 02/15/23 08:59 200 mg QAM VANDANA Administration Apixaban 5 mg 01/16/23 09:00 01/18/23 20:11 Apixaban 5 Mg Tablet PO 02/15/23 08:59 5 mg BID VANDANA Administration Calamine/Phenol 1 appln 01/16/23 09:00 01/19/23 10:06 Menthol-Zinc Oxide 360 Appln/120 Gm Tube EXT 02/15/23 08:59 1 appln TID VANDANA Administration Piperacillin Sod/Tazobactam 120 mls @ 30 mls/hr 01/16/23 04:00 01/19/23 12:34 Sod 4.5 gm/ Dextrose IV 01/26/23 03:59 30 mls/hr Q8H VANDANA Administration Protocol Insulin Aspart 0 units 01/16/23 08:15 01/19/23 12:26 Insulin Aspart Per Unit Charge SC 02/15/23 08:14 Not Given Q6 VANDANA Magnesium Oxide 400 mg 01/16/23 09:00 01/19/23 10:11 Magnesium Oxide 400 Mg Tab PO 02/15/23 08:59 400 mg QAM VANDANA Administration Methimazole 5 mg 01/16/23 09:00 01/19/23 10:06 Methimazole 5 Mg Tablet PO 02/15/23 08:59 5 mg DAILY VANDANA Administration Midodrine 5 mg 01/18/23 08:59 01/19/23 12:26 Midodrine Hcl 2.5 Mg Tab PO 02/16/23 11:59 Not Given TID@0800,1200,1700 VANDANA Oxycodone HCl 10 mg 01/16/23 00:15 01/17/23 04:36 Oxycodone Hcl Ir 5 Mg Tab (Immediate Release) PO 01/30/23 00:14 10 mg Q6 PRN Administration pain,severe Sertraline HCl 50 mg 01/16/23 09:00 01/19/23 10:05 Sertraline Hcl 50 Mg Tablet PO 02/15/23 08:59 50 mg QAM VANDANA Administration NPO Date Last Intake of Fluids: 01/18/23 Time Last Intake of Fluids: 23:00 Date Last Intake of Solids: 01/18/23 Time Last Intake of Solids: 23:00 Past Medical History Medical History Acute renal failure Required several dialysis treatments during mid November to mid December 2022 admission Ambulatory dysfunction d/t MS Bile leak from gallbladder bed Cholangitis Depression History of claustrophobia Hypertension Hyperthyroidism Multiple sclerosis Pancreatitis Past Surgical History Surgical History Hx laparoscopic cholecystectomy (12/10/22) Laparoscopic cholecystectomy with extensive lysis of adhesions, please add modifier for extensive difficulty and increased length of the procedure. Social History Smoking Status: Former smoker tobacco type: cigarettes Do You Dip or Chew Tobacco: No Smoking End Date: 1989 Hx Alcohol Use: No Hx Substance Use: No substance use type: does not use Review of Systems Respiratory: no problem reported Cardiovascular: no problem reported Physical Exam Vital Signs Last Vital Signs Temp 36.8 C 01/19/23 13:17 Pulse 91 H 01/19/23 13:17 Resp 18 01/19/23 13:17 BP 168/90 H 01/19/23 13:17 Pulse Ox 95 01/19/23 13:17 O2 Del Method Room Air 01/19/23 13:17 Neck normal visual inspection Respiratory normal respiratory effort; no respiratory distress Auscultation: lungs clear to auscultation bilaterally Cardiovascular Rate/Rhythm: regular rate and regular rhythm Psychiatric Orientation: alert and oriented x 3 Testing Laboratory Results 01/18/23 05:31 01/19/23 05:50 PT 13.6 Seconds (9.0-12.0) H 01/15/23 16:49 INR 1.3 (0.9-1.1) H 01/15/23 16:49 APTT 39.1 Seconds (21.0-31.0) H 01/15/23 16:49 Urine Color Yellow 01/16/23 00:15 Urine Appearance Cloudy (Clear) A 01/16/23 00:15 Urine pH 5.0 (4.5-7.5) 01/16/23 00:15 Ur Specific Palmer 1.015 (1.000-1.030) 01/16/23 00:15 Urine Protein 2+ (Negative) H 01/16/23 00:15 Urine Glucose (UA) Negative (Negative) 01/16/23 00:15 Urine Ketones Negative (Negative) 01/16/23 00:15 Urine Nitrite Negative (Negative) 01/16/23 00:15 Ur Leukocyte Esterase 2+ (Negative) H 01/16/23 00:15 Urine WBC (Auto) >30 /hpf (0-5) H 01/16/23 00:15 Urine RBC (Auto) 0-4 /hpf (0-4) 01/16/23 00:15 U Hyaline Cast (Auto) 1-5 /lpf (0-5) 01/16/23 00:15 U Epithel Cells (Auto) >30 /lpf (0-5) H 01/16/23 00:15 Urine Bacteria (Auto) Negative (Negative) 01/16/23 00:15 Blood Type O Positive 01/18/23 11:18 Antibody Screen NEGATIVE 01/18/23 11:18 01/18/23 Unknown Gram Stain - Final Abdomen, Right Upper Quadrant Aerobic and Anaerobic Culture - Preliminary Gram positive cocci 01/16/23 00:15 Urine Culture - Final Urine,Clean Catch No growth - less than 1,000 colonies/mL. 01/15/23 16:58 Aerobic Blood Culture - Preliminary Blood No growth in Aerobic bottle after 48 hours. Anaerobic Blood Culture - Final 01/15/23 16:49 Aerobic Blood Culture - Preliminary Blood No growth in Aerobic bottle after 48 hours. Anaerobic Blood Culture - Preliminary No growth in Anaerobic bottle after 48 hours. 01/16/23 10:28 Fungal Smear - Final Blood 01/19/23 01/19/23 12:21 05:37 POC Glucose 92 108 H
--- NOTE | 2023-01-19 13:46 | History & Physical Bridge Note ---
Date of Service January 19, 2023 History & Physical Bridge Note I have examined the patient, reviewed the History & Physical and in the interval since the performance of the History & Physical I have noted the following changes of clinical significance: no changes noted. Infiltration we are planning to do ERCP for biliary stent removal and exchange today. The patient appears to have persistent bile leak despite stent placement several weeks ago. We have discussed the risks and benefits of ERCP to include bleeding infection perforation pain failed biliary cannulation and the need for follow-up studies. We have also discussed potential need for further evaluation if the leak does not stop with todays examintion. One possibility to consider would be leaking from an accessory duct, otherwise known at the duct of jena.
[2023-01-19] MEDS ORDERED: fentaNYL citrate PF 100 MCG/2 ML VIAL ONE (14:11)
[2023-01-19] MEDS ORDERED: PROPOFOL IV EMULSION 10 MG/ML 20 ML VIAL IV ONE (14:14)
[2023-01-19] MEDS ORDERED: LIDOCAINE 2% MPF LOCAL 5 ML VIAL ONE (14:14)
[2023-01-19] MEDS ORDERED: GLYCOPYRROLATE 0.2 MG/ML VIAL ONE (14:14)
[2023-01-19] MEDS ORDERED: ROCURONIUM BROMIDE 10 MG/ML 5 ML VIAL IV ONE (14:14)
[2023-01-19] MEDS ORDERED: ONDANSETRON INJ 2 MG/ML 2 ML VIAL ONE (14:14)
[2023-01-19] MEDS ORDERED: DEXAMETHASONE SOD INJ 4 MG/ML VIAL ONE (14:14)
[2023-01-19] MEDS ORDERED: SUGAMMADEX SODIUM 200 MG/2 ML VIAL IV ONE (15:07)
--- NOTE | 2023-01-19 15:09 | Post Operative Brief Note ---
Immediate Post Op Note v1 Date of Surgery January 19, 2023 Pre & Post Diagnosis Operation Date: 01/19/23 07:00 ERCP with stent exchange I identified the patient and participated in the time-out.: Yes Procedure Operation Date: 01/19/23 07:00 ERCP wiht stent exchange for a cytic duct leak> Surgeon Dwain Murcia, DO Stitching Machine Setter none Estimated Blood Loss 0 Findings Consistent with Post-Op Diagnosis
--- NOTE | 2023-01-19 15:10 | Communication Note ---
Date of Service: January 19, 2023 The patient underwent ERCP this afternoon for suspected bile leak. She was found to have evidence of some sludge material within the common bile duct in addition to brisk neurotization of contrast from the cystic duct remnant. This was treated with placement of a covered metal stent. Recommendations May have clear liquids from a GI perspective Continue antibiotic coverage Monitor MIMI drain output If MIMI drainage persists will need to consider replacement of the existing stent with another device
--- NOTE | 2023-01-19 15:19 | GI REPORT ---
Patient Name: Blossom Mayer Procedure Date: 01/19/2023 2:06 PM Date of : 1950 Admit Type: Inpatient Age: 72 Gender: Female Attending MD: Dwain Murcia DO, Procedure: ERCP Providers: Dwain Murcia DO Referring MD: Mark Whittaker, Nidia Page Do, Rachel Mcneill MD Indications: Bile leak, Stent change Medicines: General Anesthesia Complications: No immediate complications. Estimated blood loss: Minimal. Estimated Blood Loss: Estimated blood loss was minimal. Procedure: Pre-Anesthesia Assessment: - Prior to the procedure, a History and Physical was performed, and patient medications, allergies and sensitivities were reviewed. The patient's tolerance of previous anesthesia was reviewed. - The risks and benefits of the procedure and the sedation options and risks were discussed with the patient. All questions were answered and informed consent was obtained. - Patient identification and proposed procedure were verified prior to the procedure by the physician, the nurse and the warp doffer. The procedure was verified in the procedure room. - Pre-procedure physical examination revealed no contraindications to sedation. - ASA Grade Assessment: III - A patient with severe systemic disease. - After reviewing the risks and benefits, the patient was deemed in satisfactory condition to undergo the procedure. - The anesthesia plan was to use general anesthesia. - Immediately prior to administration of medications, the patient was re-assessed for adequacy to receive sedatives. - The heart rate, respiratory rate, oxygen saturations, blood pressure, adequacy of pulmonary ventilation, and response to care were monitored throughout the procedure. - The physical status of the patient was re-assessed after the procedure. After obtaining informed consent, the scope was passed under direct vision. Throughout the procedure, the patient's blood pressure, pulse, and oxygen saturations were monitored continuously. The Duodenoscope was introduced through the mouth, and advanced to the duodenum and used to inject contrast into the bile duct. The ERCP was accomplished without difficulty. The patient tolerated the procedure well. Findings: A public speaking professor film of the abdomen was obtained. Surgical clips, consistent with a previous cholecystectomy, were seen in the area of the right upper quadrant of the abdomen. A biliary stent was visible on the public speaking professor film. The esophagus was successfully intubated under direct vision without detailed examination of the pharynx, larynx, and associated structures, and upper GI tract. The upper GI tract was grossly normal. One biliary stent originating in the biliary tree was emerging from the major papilla. The stent was visibly patent. A biliary sphincterotomy had been performed. The sphincterotomy appeared open. One stent was removed from the biliary tree using a snare. The bile duct was deeply cannulated with the 15 mm balloon and guidewire. Contrast was injected. I personally interpreted the bile duct images. Contrast extended to the hepatic ducts. The main bile duct was moderately dilated. The largest diameter was 10 mm. Extravasation of contrast originating from the cystic duct remanent was observed. To discover objects, the biliary tree was swept with a 15 mm balloon starting at the bifurcation. Sludge was swept from the duct. One 10 Fr by 8 cm covered metal stent was placed 8 cm into the common bile duct (Peyton Viabil, [id number], [id number]). Bile flowed through the stent. The stent was in good position. The endoscope was withdrawn from the patient. Impression: - One visibly patent stent from the biliary tree was seen in the major papilla. - Prior biliary sphincterotomy appeared open. - The entire main bile duct was moderately dilated. - A bile leak was found. - One stent was removed from the biliary tree. - The biliary tree was swept and sludge was found. - One covered metal stent was placed into the common bile duct. Recommendation: - Return patient to hospital dent for ongoing care. - Clear liquid diet today. - Use broad spectrum antibiotics for 2 weeks. - Observe patient's clinical course following today's ERCP with therapeutic intervention. - Monitor MIMI drain output. - Repeat ERCP in 6 - 8 weeks to remove stent. Dwain Murcia D.O. Dwain Mrucia DO 01/19/2023 3:18:43 PM This report has been signed electronically. Note Initiated On: 01/19/2023 2:06 PM Number of Addenda: 0 I attest to the content of the Intraoperative Record and orders documented therein, exceptions below {[id number]}
--- NOTE | 2023-01-19 15:20 | Fluoroscopy Report ---
[place] ERCP biliary ductal CLINICAL HISTORY: ERCP. Bile leak. COMPARISON STUDY: Abdomen and pelvis CT 01/15/2023. FLUOROSCOPY TIME: 21 seconds FLUOROSCOPY IMAGES: 6 Ka,r: 4.4 mGy FINDINGS: The ampulla was cannulated and contrast was injected into the common bile duct. A balloon s weep was performed. Patient is status post cholecystectomy. There is evidence for a bile leak at the cystic duct remnant. A common bile duct stent was placed. IMPRESSION: 1. Confirmation of the bile duct leak at the cystic duct remnant. 2. A common bile duct stent was placed and appears in good position. ACT 112: Negative or not required by law. Electronically signed by: Dannie Chowdhury M.D. 01/19/2023 3:19 PM
--- NOTE | 2023-01-19 15:28 | Anesthesiology Progress Note ---
Date of Service January 19, 2023 Anesthesia Post Procedure Vital Signs Vital Signs: Temp Pulse Pulse Resp BP Pulse Ox O2 Del Method 01/19/23 12:00 Room Air 01/19/23 12:00 91 H 01/19/23 13:17 36.8 C 91 H 18 168/90 H 95 Room Air 01/19/23 11:54 36.4 C L 88 20 132/90 96 Room Air 01/19/23 07:45 36.3 C L 83 16 102/69 95 Room Air 01/19/23 03:21 36.5 C 84 18 136/71 94 Room Air 01/18/23 23:30 89 01/18/23 23:00 36.4 C L 88 18 119/89 94 Room Air 01/18/23 19:34 36.4 C L 84 18 134/60 94 Room Air 01/18/23 16:28 87 18 114/68 100 Room Air Transfer of Care Handoff Completed per policy Notes Mental Status: alert / awake / arousable and participated in evaluation Nausea / Vomiting: adequately controlled Pain: adequately controlled Airway Patency, RR, SpO2: stable & adequate BP & HR: stable & adequate Hydration State: stable & adequate Anesthetic Complications: no major complications apparent and Pt Satisfied with anesthetic care
[2023-01-19] MEDS ORDERED: Nursing to Pharmacy Communication SCH (17:30)
[2023-01-19] MEDS: ACETAMINOPHEN 325 MG TAB PO PRN (19:37)
[2023-01-20] MEDS: PIPERACILLIN/TAZOBACTAM 4.5 GM in DEXTROSE 5% 100 ML IV SCH ×3 (03:09→19:11)
[2023-01-20 06:31] LABS: Basophils # (auto) 0.04 K/uL (0-0.2); Basophils % (auto) 0.2 %; Eosinophils # (auto) 0.06 K/uL (0-0.50); Eosinophils % (auto) 0.4 %; Hematocrit (blood only) 26.4 % (37.0-47.0); Hemoglobin 8.4 g/dl (12.0-16.0); Immature Granulocytes # (auto) 0.13 K/uL (0.01-0.20); Immature Granulocytes % (auto) 0.8 %; Lymphocytes # (auto) 2.93 K/uL (1.2-3.4); Lymphocytes % (auto) 18.2 %; Mean Corpuscular Hemoglobin 28.3 pg (25.0-34.0); Mean Corpuscular Hgb Conc 31.8 g/dL (32.0-36.0); Mean Corpuscular Volume 88.9 fL (80.0-100.0); Mean Platelet Volume 8.5 fL (9.4-12.4); Monocytes # (auto) 1.15 K/uL (0.11-0.59); Monocytes % (auto) 7.1 %; Neutrophils # (auto) 11.81 K/uL (1.40-6.50); Neutrophils % (auto) 73.3 %; Platelet Count 361 K/uL (130-400); RDW Coefficient of Variation 15.2 % (11.5-14.5); RDW Standard Deviation 48.9 fL (36.4-46.3); Red Blood Count 2.97 M/uL (4.20-5.40); White Blood Count 16.12 K/ul (4.8-10.8)
[2023-01-20 07:18] LABS: BUN Creatinine Ratio 15.5 (10-20); Calcium 7.8 mg/dl (8.6-10.3); Creatinine Clr Calc Pharmacy 20.5 ml/min; Est GFR (African American) 19.9 ml/min; Est GFR (Non-African American) 17.2 ml/min; Magnesium 2.1 mg/dl (1.7-2.4); Phosphorus 6.1 mg/dl (2.5-4.9); Potassium 4.3 mmol/L (3.5-5.1)
[2023-01-20] MEDS: MIDODRINE HCL 2.5 MG TAB PO SCH ×2 (07:44→08:21)
[2023-01-20] MEDS: AMIODARONE 200 MG TAB PO SCH (08:21)
[2023-01-20] MEDS: APIXABAN 5 MG TABLET PO SCH ×2 (08:21→19:15)
[2023-01-20] MEDS: methIMAzole 5 MG TABLET PO SCH (08:21)
[2023-01-20] MEDS: SERTRALINE HCL 50 MG TABLET PO SCH (08:21)
[2023-01-20] MEDS: MENTHOL-ZINC OXIDE 360 APPLN/120 GM TUBE EXT SCH ×3 (08:21→19:15)
[2023-01-20] MEDS: INSULIN ASPART PER UNIT CHARGE SC SCH ×4 (08:22→20:29)
[2023-01-20] MEDS: MAGNESIUM OXIDE 400 MG TAB PO SCH (08:24)
--- NOTE | 2023-01-20 08:38 | Hospitalist Progress Note ---
Date of Service January 20, 2023 Assessment & Plan (1) Septic shock: Plan: Patient was recently hospitalized for about a month during which she was managed for acute pancreatitis, acute cholangitis, septic shock, acute renal failure requiring dialysis briefly, paroxysmal A-fib. Underwent ERCP on 12/10 with removal of stones from the bile duct. Underwent lap adele with extensive lysis of adhesions on 12/10 by general surgery. Was discharged to long-term facility and represented with abdominal and back pain. Labs on presentation showed worsening leukocytosis, worsening renal function and has been hypotensive. Being managed for septic shock. Currently on Levophed which was weaned off around 5pm today (01/17). Sources of sepsis include possible intra-abdominal infection considering recent severe pancreatitis, surgical subhepatic drain in situ, recent UTI. ?acute on chronic pancreatitis CT abdomen and pelvis without contrast on admission noted redemonstration of severe acute pancreatitis similar to 12/31/2022, CBD stent in satisfactory position, unchanged position of right subhepatic percutaneous drainage, bilateral nephrolithiasis without ureteral calculi or hydronephrosis, moderate left pleural effusion increased in size with left basilar consolidation suggestive of atelectasis, increased amount of abdominal left upper quadrant ascites Continue on zosyn for now after stent exchange performed by GI Awaiting ID consult Has pleural effusion (left) on CT abd/pelvis. Not in resp distress but she does have a slight cough. Oxygenating well on room air. Ascites likely improving with new drain in place Remains HD stable WBC improving on labwork (2) Hyperthyroidism: Plan: Patient on methimazole which is known to have a side effect of pancreatitis. However, will cont for now as this pancreatitis is improved clinically and there are more likely causes/contributing factors. (3) Pleural effusion, left: Plan: hopeful this will improve after stent exchange and with time and movement. If no improvement, may need to consider thoracentesis. (4) Acute renal failure: Plan: Worsening renal function in setting of septic shock, around 2.6. Recent temporary dialysis last month which she is off of now. Nephro following. Creat appears stable although still worse than her baseline. (5) Acute pancreatitis: Plan s/p ERCP with bile duct stent exchange. Bile leak was noted intraoperatively. New transcutaneous drain in place draining into colostomy bag. She is recovering well, slightly lethargic. Continues with therapy with plans for rehab. DVT ppx- apixaban Full code Dispo-to rehab next week. I spent a total of 50 minutes coordinating, documenting and providing care for this patient excluding time spent in performance of separately billed services Nidia Page DO [facility] Hospitalist Admission and Anticipated Discharge Date Admission Date: January 15, 2023 Subjective 72 yo F presented with severe pancreatitis and sepsis she is reporting no pain feeling well post procedure cough seems to be improving. small area of lip swollen on upper left no pain or itching reported she denies any food allergies Review of Systems Review of Systems: All systems were reviewed and negative except as indicated above. Physical Exam Physical Exam: CONSTITUTIONAL: WNWD, vitals as above, NAD EYES: normal conjunctivae, no scleral icterus ENT: external ear and nose normal, MMM NECK: trachea midline RESPIRATORY: clear to auscultation bilaterally, no crackles, rales or wheezes, normal respiratory effort CARDIOVASCULAR: regular rate and rhythm, S1 and 2 heard without murmurs, gallops or rubs, no JVD, no peripheral edema CHEST: inspection of chest was normal GASTROINTESTINAL: soft, nontender, ND, no guarding, colostomy bag over actively draining bile leak in abdominal wall. There is a new drain in place coming from the abdomen. MUSCULOSKELETAL: strength 5/5 throughout, head is normocephalic and atraumatic SKIN: warm and dry. Slight swelling to upper left lip NEUROLOGIC: CN 2-12 grossly intact, no sensory deficit, normal cognition, nor mal speech, no tremor PSYCHIATRIC: lethargic, cooperative and answering questions appropriately Results & Data Results & Data Vital Signs (Past 12 Hours) Vital Signs Temp Pulse Pulse Resp BP Pulse Ox O2 Del Method 01/20/23 08:01 36.4 C L 79 17 125/80 96 Nasal Cannula 01/20/23 03:00 36.4 C L 84 18 136/77 96 Nasal Cannula 01/19/23 23:50 88 01/19/23 23:00 36.4 C L 99 H 18 135/85 98 Nasal Cannula O2 Flow Rate 01/20/23 08:01 2.0 01/20/23 03:00 01/19/23 23:50 01/19/23 23:00 2 Laboratory Results Short CBC 01/20/23 Range/Units 06:13 WBC 16.12 H (4.8-10.8) K/ul Hgb 8.4 L (12.0-16.0) g/dl Hct 26.4 L (37.0-47.0) % Plt Count 361 (130-400) K/uL [facility] 01/20/23 06:13 Sodium 140 Potassium 4.3 Chloride 110 H Carbon Dioxide 17 L BUN 41 H Creatinine 2.65 H Glucose 132 H Calcium 7.8 L Medications Administered Current Inpatient Medications Acetaminophen (Acetaminophen 325 Mg Tab) 650 mg PO Q6 PRN PRN Reason: Fever Or MILD Pain Stop: 02/14/23 23:34 Last Admin: 01/19/23 19:37 Dose: 650 mg Amiodarone HCl (Amiodarone 200 Mg Tab) 200 mg PO QAM [facility] Stop: 02/15/23 08:59 Last Admin: 01/20/23 08:21 Dose: 200 mg Apixaban (Apixaban 5 Mg Tablet) 5 mg PO BID [facility] Stop: 02/15/23 08:59 Last Admin: 01/20/23 08:21 Dose: 5 mg Calamine/Phenol (Menthol-Zinc Oxide 360 Appln/120 Gm Tube) 1 appln EXT TID [facility] Stop: 02/15/23 08:59 Last Admin: 01/20/23 08:21 Dose: 1 appln Dextrose (Dextrose 50% 50 Ml Syringe) 25 - 50 ml IV UD PRN; Protocol PRN Reason: Hypoglycemia Protocol Stop: 02/15/23 08:04 Glucagon (Glucagon For Inj 1 Mg Vial) 1 mg SQ UD PRN; Protocol PRN Reason: Hypoglycemia Protocol Stop: 02/15/23 08:04 Glucose (Glucose 40% Gel 15 Gm Tube) 15 - 30 gm PO UD PRN; Protocol PRN Reason: Hypoglycemia Protocol Stop: 02/15/23 08:04 Glucose (Glucose 10 Tab/Tube) 4 - 8 tab PO UD PRN; Protocol PRN Reason: Hypoglycemia Treatment Stop: 02/15/23 08:04 Piperacillin Sod/Tazobactam (Sod 4.5 gm/ Dextrose) 120 mls @ 30 mls/hr IV Q8H [facility]; Protocol Stop: 01/26/23 03:59 Last Infusion: 01/20/23 07:09 Dose: Infused Insulin Aspart (Insulin Aspart Per Unit Charge) 0 units SC ACHS [facility] Stop: 02/15/23 08:14 Last Admin: 01/20/23 08:22 Dose: Not Given Magnesium Oxide (Magnesium Oxide 400 Mg Tab) 400 mg PO QAM [facility] Stop: 02/15/23 08:59 Last Admin: 01/20/23 08:24 Dose: 400 mg Methimazole (Methimazole 5 Mg Tablet) 5 mg PO DAILY [facility] Stop: 02/15/23 08:59 Last Admin: 01/20/23 08:21 Dose: 5 mg Miscellaneous (Carbohydrates For Hypoglycemia ) 15 - 30 gm PO UD PRN PRN Reason: Hypoglycemia Protocol Stop: 02/15/23 08:04 Sertraline HCl (Sertraline Hcl 50 Mg Tablet) 50 mg PO QAM [facility] Stop: 02/15/23 08:59 Last Admin: 01/20/23 08:21 Dose: 50 mg (5) Acute pancreatitis Acute pancreatitis complication: unspecified Pancreatitis type: unspecified pancreatitis type Qualified Code(s): K85.90 - Acute pancreatitis without necrosis or infection, unspecified
--- NOTE | 2023-01-20 10:17 | Nephrology Progress Note ---
Date of Service January 20, 2023 Assessment & Plan (1) Acute renal failure: Plan: Stage I nonoliguric ischemic ATN most likely versus interstitial nephritis, not oliguric; bile drain OP nearly = UOP Her baseline creatinine as recently as the middle of last month was actually 0.9. During mid November to mid December extended admission for cholangitis and pancreatitis with complications, she had acute renal failure requiring several treatments of intermittent hemodialysis, with last treatment January 01. Her renal function recovered sufficiently to stop hemodialysis. Her discharge creatinine was 1.8 on January 12. Her presenting creatinine this admission on January 15 was 2; with lability since admission, creatinine ranges 2-2.4 w/o oliguria. Granular casts noted on admission urine which was also sterile, making urinary source for sepsis far less likely. Creatinine is stable at 2.6 today pain she still has metabolic acidosis with bicarb of 17. Patient was slightly negative yesterday. -Continue to monitor renal function with daily BMP -Avoid nephrotoxins -. We may consider Lasix tomorrow if worsening respiratory status Admission and Anticipated Discharge Date Admission Date: January 15, 2023 Subjective Seen in follow-up for acute kidney injury. No shortness of breath but requiring 2 L of oxygen nasal cannula. No urinary symptoms. Tom[place]inson was removed. Review of Systems Review of Systems: All other systems were reviewed and negative except as noted in HPI Physical Exam Physical Exam: General exam: Appears comfortable, no acute distress HEENT: Pupils are equal and reactive to light Neck: No JVD, neck is supple trachea is midline Respiratory system: crackles bilaterally. Gastrointestinal: Abdomen is soft, non distended, non tender, bowel sounds are present CVS: Regular rate and rhythm. No murmurs, rubs or gallops Musculoskeletal: No joint or muscle tenderness Extremities: Non tender, no edema, peripheral pulses are present Neuro: Oriented, no tremors, no focal neurological deficits Skin: No rashes Results & Data Vital Signs (Past 12 Hours) Vital Signs Temp Pulse Pulse Resp BP Pulse Ox O2 Del Method 01/20/23 08:01 36.4 C L 79 17 125/80 96 Nasal Cannula 01/20/23 03:00 36.4 C L 84 18 136/77 96 Nasal Cannula 01/19/23 23:50 88 01/19/23 23:00 36.4 C L 99 H 18 135/85 98 Nasal Cannula O2 Flow Rate 01/20/23 08:01 2.0 01/20/23 03:00 01/19/23 23:50 01/19/23 23:00 2 Laboratory Results 01/20/23 06:13 01/20/23 01/20/23 06:13 06:13 WBC 16.12 H RBC 2.97 L MCV 88.9 MCH 28.3 MCHC 31.8 L RDW Std Deviation 48.9 H RDW Coeff of Mandy 15.2 H Plt Count 361 MPV 8.5 L Phosphorus 6.1 H
--- NOTE | 2023-01-20 10:54 | Surgery Progress Note ---
Date of Service January 20, 2023 Assessment & Plan (1) Bile leak from gallbladder bed: Plan: Well drained with MIMI. s/p ercp/ stent yesterday and drain output, while still bilious, appears to be decreasing. WBC count continues to decrease to 16.12. On clear liquids since last night. Continue for now. Continue IV antibiotics. If improving, can advance to full liquids later today. Admission and Anticipated Discharge Date Admission Date: January 15, 2023 Subjective Seen with niece at bedside. Denies any abdominal pain or nausea. Feels about the same as yesterday. Afebrile. s/p ercp with stent placement yesterday. 1 stool recorded yesterday. Drain output is down to 225 (was 500-600). Physical Exam Constitutional: WD/WN, vitals as above Respiratory: normal respiratory effort, lungs clear to auscultation Cardiovascular: RRR, no murmur, no edema Gastrointestinal (Abdomen): Inspection/Auscultation: abdomen normal to inspection, + abdomen distended (mild), normal bowel sounds and + abdominal surgical drain present (MIMI drain emptying into ostomy bag, still with bilious output) Percussion/Palpation: abdomen nontender and no guarding Neurologic: awake; no focal motor deficits Psychiatric: A+Ox3, euthymic affect Results & Data Vital Signs (Past 12 Hours) Vital Signs Temp Pulse Pulse Resp BP Pulse Ox O2 Del Method 01/20/23 08:01 36.4 C L 79 17 125/80 96 Nasal Cannula 01/20/23 03:00 36.4 C L 84 18 136/77 96 Nasal Cannula 01/19/23 23:50 88 01/19/23 23:00 36.4 C L 99 H 18 135/85 98 Nasal Cannula O2 Flow Rate 01/20/23 08:01 2.0 01/20/23 03:00 01/19/23 23:50 01/19/23 23:00 2 Laboratory Results Abnormal lab results 01/19/23 01/19/23 01/20/23 Range/Units 17:04 20:48 06:13 WBC (4.8-10.8) K/ul RBC (4.20-5.40) M/uL Hgb (12.0-16.0) g/dl Hct (37.0-47.0) % MCHC (32.0-36.0) g/dL RDW Std Deviation (36.4-46.3) fL RDW Coeff of Mandy (11.5-14.5) % MPV (9.4-12.4) fL Neut # (Auto) (1.40-6.50) K/uL Bates # (Auto) (0.11-0.59) K/uL Chloride 110 H (98-107) mmol/L Carbon Dioxide 17 L (21-32) mmol/L Anion Gap 13 H (3-11) BUN 41 H (6-23) mg/dl Creatinine 2.65 H (0.6-1.2) mg/dl Glucose 132 H (70-99(Fasting)) mg/dl POC Glucose 113 H 140 H (70-99) mg/dl Calcium 7.8 L (8.6-10.3) mg/dl Phosphorus 6.1 H (2.5-4.9) mg/dl 01/20/23 01/20/23 Range/Units 06:13 07:14 WBC 16.12 H (4.8-10.8) K/ul RBC 2.97 L (4.20-5.40) M/uL Hgb 8.4 L (12.0-16.0) g/dl Hct 26.4 L (37.0-47.0) % MCHC 31.8 L (32.0-36.0) g/dL RDW Std Deviation 48.9 H (36.4-46.3) fL RDW Coeff of Mandy 15.2 H (11.5-14.5) % MPV 8.5 L (9.4-12.4) fL Neut # (Auto) 11.81 H (1.40-6.50) K/uL Bates # (Auto) 1.15 H (0.11-0.59) K/uL Chloride (98-107) mmol/L Carbon Dioxide (21-32) mmol/L Anion Gap (3-11) BUN (6-23) mg/dl Creatinine (0.6-1.2) mg/dl Glucose (70-99(Fasting)) mg/dl POC Glucose 136 H (70-99) mg/dl Calcium (8.6-10.3) mg/dl Phosphorus (2.5-4.9) mg/dl
[2023-01-20] MEDS: ACETAMINOPHEN 325 MG TAB PO PRN ×2 (15:54→21:11)
[2023-01-21] MEDS: PIPERACILLIN/TAZOBACTAM 4.5 GM in DEXTROSE 5% 100 ML IV SCH ×3 (02:43→19:41)
[2023-01-21] MEDS: ACETAMINOPHEN 325 MG TAB PO PRN ×2 (02:43→08:05)
[2023-01-21 06:51] LABS: BUN Creatinine Ratio 16.2 (10-20); Calcium 7.9 mg/dl (8.6-10.3); Creatinine Clr Calc Pharmacy 20.2 ml/min; Est GFR (African American) 19.8 ml/min; Est GFR (Non-African American) 17.1 ml/min; Magnesium 2.1 mg/dl (1.7-2.4); Phosphorus 5.8 mg/dl (2.5-4.9); Potassium 4.1 mmol/L (3.5-5.1)
[2023-01-21] MEDS: INSULIN ASPART PER UNIT CHARGE SC SCH ×4 (08:02→20:22)
[2023-01-21] MEDS: APIXABAN 5 MG TABLET PO SCH (08:05)
[2023-01-21] MEDS: MENTHOL-ZINC OXIDE 360 APPLN/120 GM TUBE EXT SCH ×3 (08:05→19:44)
[2023-01-21] MEDS: MAGNESIUM OXIDE 400 MG TAB PO SCH (08:05)
[2023-01-21] MEDS: AMIODARONE 200 MG TAB PO SCH (08:05)
[2023-01-21] MEDS: methIMAzole 5 MG TABLET PO SCH (08:05)
[2023-01-21] MEDS: SERTRALINE HCL 50 MG TABLET PO SCH (08:05)
--- NOTE | 2023-01-21 10:05 | Nephrology Progress Note ---
Date of Service January 21, 2023 Assessment & Plan (1) Acute renal failure: Plan: Stage I nonoliguric ischemic ATN most likely versus interstitial nephritis, not oliguric; bile drain OP nearly = UOP Her baseline creatinine as recently as the middle of last month was actually 0.9. During mid November to mid December extended admission for cholangitis and pancreatitis with complications, she had acute renal failure requiring several treatments of intermittent hemodialysis, with last treatment January 01. Her renal function recovered sufficiently to stop hemodialysis. Her discharge creatinine was 1.8 on January 12. Her presenting creatinine this admission on January 15 was 2; with lability since admission, creatinine ranges 2-2.4 w/o oliguria. Granular casts noted on admission urine which was also sterile, making urinary source for sepsis far less likely. Creatinine is stable at 2.6 today pain she still has metabolic acidosis with bicarb of 19. -Continue to monitor renal function with daily BMP -Avoid nephrotoxins -Monitor daily for volume overload at which point we can give Lasix Admission and Anticipated Discharge Date Admission Date: January 15, 2023 Subjective Seen for acute kidney injury. Patient has required dialysis in the past. No shortness of breath. Legs are slightly swollen. Main complaint is abdominal pain. Review of Systems Review of Systems: All other systems were reviewed and negative except as noted in HPI Physical Exam Physical Exam: General exam: Appears comfortable, no acute distress HEENT: Pupils are equal and reactive to light Neck: No JVD, neck is supple trachea is midline Respiratory system: crackles bilaterally. Gastrointestinal: Abdomen is soft, non distended, non tender, bowel sounds are present CVS: Regular rate and rhythm. No murmurs, rubs or gallops Musculoskeletal: No joint or muscle tenderness Extremities: Non tender, 1+ edema, peripheral pulses are present Neuro: Oriented, no tremors, no focal neurological deficits Skin: No rashes Results & Data Vital Signs (Past 12 Hours) Vital Signs Temp Pulse Pulse Resp BP Pulse Ox O2 Del Method 01/21/23 09:35 Room Air 01/21/23 09:28 141 H 01/21/23 07:33 36.5 C 101 H 19 103/71 95 Room Air 01/21/23 03:00 36.4 C L 107 H 18 90/65 L 100 Nasal Cannula 01/20/23 23:00 36.5 C 93 H 18 126/64 100 Nasal Cannula 01/20/23 22:58 95 H O2 Flow Rate 01/21/23 09:35 01/21/23 09:28 01/21/23 07:33 01/21/23 03:00 2 01/20/23 23:00 2 01/20/23 22:58 Laboratory Results 01/21/23 05:56 01/21/23 05:56 Phosphorus 5.8 H
--- NOTE | 2023-01-21 11:23 | CT Scan Report ---
ABDOMEN AND PELVIS CT WITHOUT CONTRAST CT DOSE: 728.98 mGy.cm HISTORY: Acute generalized abdominal pain with possible bile leak worsening pain, bile leak TECHNIQUE: Multiaxial CT images of the abdomen and pelvis were performed without contrast. A dose lo wering technique was utilized adhering to the principles of ALARA. COMPARISON STUDY: CT abdomen and pelvis 01/15/2023, hepatobiliary study 01/18/2023. FINDINGS: Moderate left pleural effusion with left basilar consolidation. The amount of left-sided pl eural fluid has mildly increased. Trace right pleural effusion with moderate basilar atelectasis. [place] ited exam without the use of IV contrast or enteric. Mildly increased amount of abdominal pelvic ascites, notably with increased amount of free fluid surr ounding the spleen. This includes both simple and complex fluid with hyperdense foci measuring up to 3.3 cm on image 108. There is again mass effect upon the adjacent spleen. Unremarkable adrenal glands. Severe acute pancreatitis redemonstrated with similar appearance of the interstitial and peripancreatic inflammation. Peripancreatic fluid collections are again noted, subop timally evaluated without the use of IV contrast. 3.6 cm collection adjacent to the pancreatic head o n image 182 previously measured 2.5 cm. A 3.9 cm fluid attenuating structure within the abdominal lef t upper quadrant previously measured 3.5 cm. Unremarkable liver. Intrahepatic and extrahepatic pneumobilia is redemonstrated with a common bile du ct stent in place. Air and fluid-filled structure within the tima hepatis now measures 3.5 x 0.8 cm, previously 5.4 x 2.7 cm. Right subhepatic percutaneous drainage catheter is in unchanged positioning . Subcutaneous collection adjacent to the catheter tract is similar to prior. Numerous nonobstructing bilateral renal calculi are noted measuring up to 11 mm on the left 11 mm on the right. Mild nonspecific bilateral perinephric stranding. No ureteral calculi or hydronephrosis. U nremarkable urinary bladder and uterus. Atherosclerosis aorta. Wall thickening of the stomach and duo denum is likely reactive. No bowel obstruction or additional bowel wall thickening. Unremarkable soft tissues. Tiny fat filled umbilical hernia. No acute fracture. IMPRESSION: 1. Severe acute pancreatitis is similar appearance to the 01/15/2023 exam with persistent acute peripa ncreatic fluid collections. 2. Prior cholecystectomy with decreased size of the air and fluid-filled structure within the tima h epatis. 3. Common bile duct stent in place with persistent pneumobilia. 4. Unchanged positioning of the right subhepatic percutaneous drainage catheter. 5. Increased amount of abdominopelvic ascites, notably surrounding the spleen with new perisplenic he morrhage. 6. Bilateral nephrolithiasis. 7. Moderate left pleural effusion with left basilar consolidation. 8. Additional findings as above. ACT 112: Negative or not required by law. The above report was generated using voice recognition software. It may contain grammatical, syntax o r spelling errors. Electronically signed by: Nick Stone M.D. 01/21/2023 11:21 AM
--- NOTE | 2023-01-21 13:27 | Surgery Progress Note ---
Date of Service January 21, 2023 Assessment & Plan (1) Bile leak from gallbladder bed: Plan: Given increased abdominal pain, CT scan was discussed with family and ordered. This shows mild increase in abdominal ascites with fluid around spleen, ? hemorrhage. H/H are stable but low - no suggestion of active bleeding. (2) Pancreatitis: Plan: Persists and could remain cause of her pain and decreased appetite. No new surgical recommendations. Admission and Anticipated Discharge Date Admission Date: January 15, 2023 Subjective Family at bedside. Pt notes she feels "horrible". More intense abdominal pain, has not been eating. Hurts to move any part of her body. Physical Exam Eyes: + anicteric sclerae Respiratory: no respiratory distress Auscultation: + diminished lung sounds (at bases c/w atelectasis) Cardiovascular: Rate/Rhythm: regular rate and regular rhythm (intermittently tachycardic) Gastrointestinal (Abdomen): Inspection/Auscultation: abdomen normal to inspection, + abdomen distended, + abdominal surgical drain present (bilious output, 250 cc) and + hypoactive bowel sounds; no visible herniation Percussion/Palpation: + abdomen tender (diffusely ), + guarding (diffusely) and abdomen soft Results & Data Vital Signs (Past 12 Hours) Vital Signs Temp Pulse Pulse Resp BP Pulse Ox O2 Del Method 01/21/23 12:04 36.5 C 100 H 19 111/74 94 Room Air 01/21/23 09:35 Room Air 01/21/23 09:28 141 H 01/21/23 07:33 36.5 C 101 H 19 103/71 95 Room Air 01/21/23 03:00 36.4 C L 107 H 18 90/65 L 100 Nasal Cannula O2 Flow Rate 01/21/23 12:04 01/21/23 09:35 01/21/23 09:28 01/21/23 07:33 01/21/23 03:00 2 Laboratory Results Abnormal lab results 01/20/23 01/20/23 01/21/23 Range/Units 16:24 20:06 05:56 Chloride 109 H (98-107) mmol/L Carbon Dioxide 19 L (21-32) mmol/L Anion Gap 12 H (3-11) BUN 43 H (6-23) mg/dl Creatinine 2.66 H (0.6-1.2) mg/dl Glucose 143 H (70-99(Fasting)) mg/dl POC Glucose 150 H 154 H (70-99) mg/dl Calcium 7.9 L (8.6-10.3) mg/dl Phosphorus 5.8 H (2.5-4.9) mg/dl 01/21/23 01/21/23 Range/Units 07:09 11:26 Chloride (98-107) mmol/L Carbon Dioxide (21-32) mmol/L Anion Gap (3-11) BUN (6-23) mg/dl Creatinine (0.6-1.2) mg/dl Glucose (70-99(Fasting)) mg/dl POC Glucose 156 H 128 H (70-99) mg/dl Calcium (8.6-10.3) mg/dl Phosphorus (2.5-4.9) mg/dl
--- NOTE | 2023-01-21 14:05 | Hospitalist Progress Note ---
Date of Service January 21, 2023 Assessment & Plan (1) Septic shock: Plan: Patient was recently hospitalized for about a month during which she was managed for acute pancreatitis, acute cholangitis, septic shock, acute renal failure requiring dialysis briefly, paroxysmal A-fib. Underwent ERCP on 12/10 with removal of stones from the bile duct. Underwent lap adele with extensive lysis of adhesions on 12/10 by general surgery. Was discharged to long-term facility and represented with abdominal and back pain. Labs on presentation showed worsening leukocytosis, worsening renal function and has been hypotensive. Being managed for septic shock.Was on Levophed which was weaned off around 5pm today (01/17). Sources of sepsis include possible intra-abdominal infection considering recent severe pancreatitis, surgical subhepatic drain in situ, recent UTI. Acute on chronic pancreatitis Continue on Zosyn for now after stent exchange performed by GI Awaiting ID consult Has pleural effusion (left) on CT abd/pelvis. Not in resp distress but she does have a slight cough. 01/21/2023 Complaining of more abdominal pain though the white count has been improving CT of the abdomen and pelvis showed severe acute pancreatitis as on 01/15/2023 and a new perisplenic hemorrhage We will continue with current pain medications and hold Eliquis (2) Hyperthyroidism: Plan: Patient on methimazole which is known to have a side effect of pancreatitis. However, will cont for now as this pancreatitis is improved clinically and there are more likely causes/contributing factors. (3) Pleural effusion, left: Plan: hopeful this will improve after stent exchange and with time and movement. If no improvement, may need to consider thoracentesis. Repeat CT showed moderate left pleural effusion as before (4) Acute renal failure: Plan: Worsening renal function in setting of septic shock, around 2.6. Recent temporary dialysis last month which she is off of now. Nephro following. Creat appears stable although still worse than her baseline. Creatinine remains stable at 2.66 (5) Acute pancreatitis: Plan: CT abdomen and pelvis without contrast on admission noted redemonstration of severe acute pancreatitis similar to 12/31/2022, CBD stent in satisfactory position, unchanged position of right subhepatic percutaneous drainage, bilateral nephrolithiasis without ureteral calculi or hydronephrosis, moderate left pleural effusion increased in size with left basilar consolidation suggestive of atelectasis, increased amount of abdominal left upper quadrant ascites Repeat CT of the abdomen pelvis showed: 01/21/2023 1. Severe acute pancreatitis is similar appearance to the 01/15/2023 exam with persistent acute peripancreatic fluid collections. 2. Prior cholecystectomy with decreased size of the air and fluid-filled structure within the tima hepatis. 3. Common bile duct stent in place with persistent pneumobilia. 4. Unchanged positioning of the right subhepatic percutaneous drainage catheter. 5. Increased amount of abdominopelvic ascites, notably surrounding the spleen with new perisplenic hemorrhage. 6. Bilateral nephrolithiasis. 7. Moderate left pleural effusion with left basilar consolidation. 8. Additional findings as above. We will continue with current antibiotic and pain medications Plan s/p ERCP with bile duct stent exchange. Bile leak was noted intraoperatively. New transcutaneous drain in place draining into colostomy bag. She is recovering well, slightly lethargic. Continues with therapy with plans for rehab. DVT ppx- apixaban Full code Dispo-to rehab next week. Admission and Anticipated Discharge Date Admission Date: January 15, 2023 Subjective 01/21/2023 The patient was seen and examined in telemetry unit in presence of the She has been complaining of more abdominal pain today without any nausea and or vomiting Denies any fever and or chills Denies any shortness of breath Review of Systems Review of Systems: All systems reviewed and are unremarkable except as noted below Physical Exam Physical Exam: Lying in bed with acute distress due to abdominal pain Constitutional: well developed, well nourished, + ill appearing and + obese Eyes: PERRL, conjunctivae normal, anicteric sclerae ENMT: external ear and nose normal, oropharynx normal Neck: trachea midline, no thyromegaly Respiratory: no respiratory distress Auscultation: + diminished lung sounds and + crackles (Minimal crackles left base) Cardiovascular: Rate/Rhythm: regular rate, regular rhythm and + tachycardic Heart Sounds: normal S1 and normal S2; no murmur Extremities: + edema (Trace edema bilaterally) Gastrointestinal (Abdomen): Inspection/Auscultation: + abdomen distended and normal bowel sounds Percussion/Palpation: + abdomen tender and abdomen soft Mildly distended Musculoskeletal: No acute arthritis involving any of the joints Neurologic: normal touch/pain/proprioception and moves all extremities; no focal motor deficits Psychiatric: A+Ox3, euthymic affect Lymphatic: no cervical or axillary lymphadenopathy Results & Data Results & Data Vital Signs (Past 12 Hours) Vital Signs Temp Pulse Pulse Resp BP Pulse Ox O2 Del Method 01/21/23 12:04 36.5 C 100 H 19 111/74 94 Room Air 01/21/23 09:35 Room Air 01/21/23 09:28 141 H 01/21/23 07:33 36.5 C 101 H 19 103/71 95 Room Air 01/21/23 03:00 36.4 C L 107 H 18 90/65 L 100 Nasal Cannula O2 Flow Rate 01/21/23 12:04 01/21/23 09:35 01/21/23 09:28 01/21/23 07:33 01/21/23 03:00 2 Laboratory Results BMP 01/21/23 05:56 Sodium 140 Potassium 4.1 Chloride 109 H Carbon Dioxide 19 L BUN 43 H Creatinine 2.66 H Glucose 143 H Calcium 7.9 L Medications Administered Current Inpatient Medications Acetaminophen (Acetaminophen 325 Mg Tab) 650 mg PO Q6 PRN PRN Reason: Fever Or MILD Pain Stop: 02/14/23 23:34 Last Admin: 01/21/23 08:05 Dose: 650 mg Amiodarone HCl (Amiodarone 200 Mg Tab) 200 mg PO QAM [facility] Stop: 02/15/23 08:59 Last Admin: 01/21/23 08:05 Dose: 200 mg Apixaban (Apixaban 5 Mg Tablet) 5 mg PO BID [facility] Stop: 02/15/23 08:59 Last Admin: 01/21/23 08:05 Dose: 5 mg Calamine/Phenol (Menthol-Zinc Oxide 360 Appln/120 Gm Tube) 1 appln EXT TID [facility] Stop: 02/15/23 08:59 Last Admin: 01/21/23 13:53 Dose: 1 appln Dextrose (Dextrose 50% 50 Ml Syringe) 25 - 50 ml IV UD PRN; Protocol PRN Reason: Hypoglycemia Protocol Stop: 02/15/23 08:04 Glucagon (Glucagon For Inj 1 Mg Vial) 1 mg SQ UD PRN; Protocol PRN Reason: Hypoglycemia Protocol Stop: 02/15/23 08:04 Glucose (Glucose 40% Gel 15 Gm Tube) 15 - 30 gm PO UD PRN; Protocol PRN Reason: Hypoglycemia Protocol Stop: 02/15/23 08:04 Glucose (Glucose 10 Tab/Tube) 4 - 8 tab PO UD PRN; Protocol PRN Reason: Hypoglycemia Treatment Stop: 02/15/23 08:04 Piperacillin Sod/Tazobactam (Sod 4.5 gm/ Dextrose) 120 mls @ 30 mls/hr IV Q8H [facility]; Protocol Stop: 01/26/23 03:59 Last Admin: 01/21/23 13:08 Dose: 30 mls/hr Insulin Aspart (Insulin Aspart Per Unit Charge) 0 units SC ACHS [facility] Stop: 02/15/23 08:14 Last Admin: 01/21/23 11:49 Dose: Not Given Magnesium Oxide (Magnesium Oxide 400 Mg Tab) 400 mg PO QAM [facility] Stop: 02/15/23 08:59 Last Admin: 01/21/23 08:05 Dose: 400 mg Methimazole (Methimazole 5 Mg Tablet) 5 mg PO DAILY [facility] Stop: 02/15/23 08:59 Last Admin: 01/21/23 08:05 Dose: 5 mg Miscellaneous (Carbohydrates For Hypoglycemia ) 15 - 30 gm PO UD PRN PRN Reason: Hypoglycemia Protocol Stop: 02/15/23 08:04 Sertraline HCl (Sertraline Hcl 50 Mg Tablet) 50 mg PO QAM [facility] Stop: 02/15/23 08:59 Last Admin: 01/21/23 08:05 Dose: 50 mg (5) Acute pancreatitis Acute pancreatitis complication: unspecified Pancreatitis type: unspecified pancreatitis type Qualified Code(s): K85.90 - Acute pancreatitis without necrosis or infection, unspecified
[2023-01-22] MEDS: PIPERACILLIN/TAZOBACTAM 4.5 GM in DEXTROSE 5% 100 ML IV SCH ×2 (03:26→17:34)
--- NOTE | 2023-01-22 06:51 | Surgery Progress Note ---
Date of Service January 22, 2023 Assessment & Plan (1) Acute pancreatitis: Plan: Patient admitted with recent sepsis History of necrotizing cholecystitis with subtotal cholecystectomy and drain placement, status post ERCP with stent placement Readmission with sepsis and manipulation of drain recovering significant bilious output with abnormal HIDA scan Recent ERCP with stent change, decreased drain output but still bilious ReCT scan for 01/21/2023 showing significant acute pancreatitis with apparent pseudocyst formation and inflammation with increasing ascites around the spleen- some concern for hemorrhage but no evidence of acute bleeding Patient was having worsening abdominal pain but it seems to have improved some Poor nutrition-not taking much p.o. Patient with possible necrotizing pancreatitis in addition to her biliary problems I do not believe surgical intervention will improve her current situation Interventional radiology can sometimes help with percutaneous drain placement or endoscopic drain placement Also interventional radiology could help with access as far as nutrition - enteral and parenteral-this would need to be at a tertiary care center Admission and Anticipated Discharge Date Admission Date: January 15, 2023 Results & Data Vital Signs (Past 12 Hours) Vital Signs Temp Pulse Pulse Resp BP Pulse Ox O2 Del Method 01/22/23 03:15 36.6 C 95 H 19 101/62 99 Nasal Cannula 01/21/23 23:28 102 H 01/21/23 23:04 36.5 C 104 H 18 102/57 L 95 Nasal Cannula 01/21/23 19:55 Nasal Cannula 01/21/23 19:31 36.6 C 103 H 20 105/78 97 Nasal Cannula O2 Flow Rate 01/22/23 03:15 2 01/21/23 23:28 01/21/23 23:04 2 01/21/23 19:55 2 01/21/23 19:31 2 PG Care Time/CCT Total # of Minutes Spent Total Time Spent with Patient: Total time spent is greater than 50% in coordination of care (as documented) at patient's floor/unit and/or counseling patient: Coding Level of Care Code None Diagnoses Acute pancreatitis K85.90 Acute pancreatitis complication: unspecified Pancreatitis type: unspecified pancreatitis type (1) Acute pancreatitis Acute pancreatitis complication: unspecified Pancreatitis type: unspecified pancreatitis type Qualified Code(s): K85.90 - Acute pancreatitis without necrosis or infection, unspecified
[2023-01-22 07:10] LABS: Basophils # (auto) 0.07 K/uL (0-0.2); Basophils % (auto) 0.3 %; Eosinophils # (auto) 0.06 K/uL (0-0.50); Eosinophils % (auto) 0.2 %; Hematocrit (blood only) 25.6 % (37.0-47.0); Hemoglobin 8.4 g/dl (12.0-16.0); Immature Granulocytes # (auto) 0.33 K/uL (0.01-0.20); Immature Granulocytes % (auto) 1.3 %; Lymphocytes # (auto) 3.82 K/uL (1.2-3.4); Lymphocytes % (auto) 14.5 %; Mean Corpuscular Hemoglobin 28.3 pg (25.0-34.0); Mean Corpuscular Hgb Conc 32.8 g/dL (32.0-36.0); Mean Corpuscular Volume 86.2 fL (80.0-100.0); Mean Platelet Volume 8.9 fL (9.4-12.4); Monocytes # (auto) 2.79 K/uL (0.11-0.59); Monocytes % (auto) 10.6 %; Neutrophils # (auto) 19.29 K/uL (1.40-6.50); Neutrophils % (auto) 73.1 %; Platelet Count 366 K/uL (130-400); RDW Coefficient of Variation 15.8 % (11.5-14.5); RDW Standard Deviation 48.6 fL (36.4-46.3); Red Blood Count 2.97 M/uL (4.20-5.40); White Blood Count 26.36 K/ul (4.8-10.8)
[2023-01-22 07:25] LABS: Albumin Globulin Ratio 0.5 (0.9-2); Bilirubin,Total 0.5 mg/dl (0.2-1.0); Calcium 7.7 mg/dl (8.6-10.3); Creatinine Clr Calc Pharmacy 19.3 ml/min; Est GFR (African American) 18.8 ml/min; Est GFR (Non-African American) 16.2 ml/min; Globulin 3.9 gm/dl (2.5-4.0); Magnesium 2.1 mg/dl (1.7-2.4); Phosphorus 5.7 mg/dl (2.5-4.9); Potassium 3.7 mmol/L (3.5-5.1); Total Protein 5.9 gm/dl (6.0-8.3)
--- NOTE | 2023-01-22 09:01 | Nephrology Progress Note ---
Date of Service January 22, 2023 Assessment & Plan Admission and Anticipated Discharge Date Admission Date: January 15, 2023 Subjective Assessment & Plan (1) Acute renal failure: Plan: nonoliguric ischemic ATN Her baseline creatinine as recently as the middle of last month was actually 0.9. During mid November to mid December extended admission for cholangitis and panc reatitis with complications, she had acute renal failure requiring several treatments of intermittent hemodialysis, with last treatment January 01. Her renal function recovered sufficiently to stop hemodialysis. Her discharge creatinine was 1.8 on January 12. Her presenting creatinine this admission on January 15 was 2; Creat is rising again slowly. Surgery note says she might have possible necrotizing Infected Peritonitis and likely needs transfer for IR support. Some edema but no major SOB. No lasix but she will need soon Continue to monitor renal function with daily BMP Avoid nephrotoxins Monitor daily for volume overload at which point we can give Lasix Subjective Seen for acute kidney injury. Patient has required dialysis in the previous admission. making urine but ?? amount. No shortness of breath.Legs are slightly swollen. Main complaint is abdominal pain. Review of Systems Review of Systems: All other systems were reviewed and negative except as noted in HPI Physical Exam Physical Exam: General exam: Appears comfortable, no acute distress HEENT: Pupils are equal and reactive to light Neck: No JVD, neck is supple trachea is midline Respiratory system: crackles bilaterally. Gastrointestinal: Abdomen is soft, non distended, non tender, bowel sounds are present CVS: Regular rate and rhythm. No murmurs, rubs or gallops Musculoskeletal: No joint or muscle tenderness Extremities: Non tender, 1+ edema, peripheral pulses are present Neuro: Oriented, no tremors, no focal neurological deficits Skin: No rashes Results & Data Vital Signs (Past 12 Hours) Vital Signs Temp Pulse Pulse Resp BP Pulse Ox O2 Del Method 01/22/23 07:33 36.4 C L 97 H 20 104/73 97 Nasal Cannula 01/22/23 07:31 98 H 01/22/23 03:15 36.6 C 95 H 19 101/62 99 Nasal Cannula 01/21/23 23:28 102 H 01/21/23 23:04 36.5 C 104 H 18 102/57 L 95 Nasal Cannula O2 Flow Rate 01/22/23 07:33 2 01/22/23 07:31 01/22/23 03:15 2 01/21/23 23:28 01/21/23 23:04 2
[2023-01-22] MEDS: SERTRALINE HCL 50 MG TABLET PO SCH (09:27)
[2023-01-22] MEDS: methIMAzole 5 MG TABLET PO SCH (09:27)
[2023-01-22] MEDS: AMIODARONE 200 MG TAB PO SCH (09:27)
[2023-01-22] MEDS: INSULIN ASPART PER UNIT CHARGE SC SCH ×4 (09:36→21:03)
[2023-01-22] MEDS: MAGNESIUM OXIDE 400 MG TAB PO SCH (10:02)
[2023-01-22] MEDS: MENTHOL-ZINC OXIDE 360 APPLN/120 GM TUBE EXT SCH ×3 (10:03→22:00)
[2023-01-22] MEDS: LACTATED RINGER'S 1,000 ML IV SCH ×2 (10:33→20:41)
--- NOTE | 2023-01-22 11:52 | Infectious Disease Progress Nt ---
Assessment & Plan (1) Pancreatitis: (2) Bile leak from gallbladder bed: (3) Acute renal failure:
--- NOTE | 2023-01-22 12:52 | Infectious Disease Progress Nt ---
Date of Service January 22, 2023 Assessment & Plan (1) Pancreatitis: (2) Bile leak from gallbladder bed: (3) Acute renal failure: Plan 72 yo F with history of obesity, HTN, anxiety, chronic neurogenic bladder, osteoporosis, MS, recent admission (12/09 - 01/12) for acute gallstone dumont creatitis s/p ERCP with stent placement and subtotal laparoscopic cholecystectomy c/b bile leak with MIMI drain placement and Pseudomonas/Enterococcus UTI discharged on levofloxacin, who presented on 01/15 with back/abdominal pain, hypotension requiring pressors, leukocytosis to 34, found on CT to have continued pancreatitis and peripancreatic fluid collections. CT A/P (without contrast) also showed upper abdominal ascites, new 3.4 cm fluid attenuating structure within LUQ, possibly loculated ascites vs acute peripancreatic fluid collection, postop changes of cholecystectomy with air and fluid-filled structure again noted in tima hepatis, possibly representing residual gallbladder vs postop fluid collection, CBD stent in satisfactory positioning, unchanged positioning of R subhepatic percutaneous drainage catheter. The MIMI drain may not have been draining well initially, but after manipulation by Surgery is now draining more. Pt is also being followed by GI. 01/18 HIDA scan shows accumulation of radiotracer within gallbladder fossa and RUQ drainage catheter c/w bile leak, and radiotracer not identified within CBD which could be due to preferential flow of bile into gallbladder fossa or possibly a CBD obstruction. An ERCP was performed on 01/19: bile leak found, and biliary duct stent exchanged. Suspect her initial sepsis was secondary to undrained peripancreatic collections. With MIMI drain manipulation, the drainage improved, she was weaned off pressors on 01/17, and her WBC downtrended to 16.12 on 01/20. However, she had increased abd pain on 01/21, with repeat CT A/P without contrast showing increase in size of pancreatic head fluid collection and LUQ fluid collection, and new perisplenic hemorrhage. WBC has increased to 26.4 on 01/22. MIMI drain is growing probable Enterococcus species, awaiting identification and susceptibilities. Enterococcus is often found in polymicrobial intra-abdominal infections, with questionable pathogenicity vs colonization. Micro: 01/18 RUQ abd drain cx: probable Enterococcus. GS--few GPCs 01/16 Fungal BCx: NGTD 01/16 MRSA nares: negative 4/18 UCx: NG 01/15 BCx x2: NG 01/08 UCx: Pseudomonas, E faecalis (S levo) 12/18 Fungal BCx: NG 12/17 MIMI drainage fluid: NG. GS--negative. Abx: Zosyn 01/15 - present Vanc 01/15 - 01/17 Problems: #Peripancreatic fluid collections #Acute gallstone pancreatitis s/p ERCP with stent placement, subtotal lap adele c/b bile leak with MIMI drain placement (12/10/22) with persistent bile leak s/p ERCP and stent placement 01/19 #SAMMY: required temporary HD last admission #Decubitus ulcers: do not appear infected on wound image #Atelectasis vs PNA Recommendations: -Follow-up MIMI drainage culture -Continue pip-tazo -IR consultation to see if peripancreatic fluid collections can be drained -Anticipate continuing a longer course of antibiotics (does not have to be IV) until resolution of intra-abdominal fluid collections is seen on CT Discussed with primary team. Will continue to follow Admission and Anticipated Discharge Date Admission Date: January 15, 2023 Subjective This patient recommendation is based on a telemedicine consult request which was completed asynchronously through chart review and information provided by the primary physician. The patient was not seen or examined today. The evaluation is consultative in nature and all patient care and treatment decisions can either be accepted or rejected by the patient's primary hospital-based treating physician using their own independent medical judgment for their patient. Time Spent Reviewing Chart: 31+ minutes WBC increasing to 26.4 Cr uptrending to 2.78 Afebrile ERCP on 01/19 showed bile leak; stent placed MIMI drainage culture growing likely Enterococcus species Pt had increased abd pain on 01/21, so repeat CT A/P without contrast performed, which showed similar severe acute pancreatitis, mildly increased ascites, increased fluid surrounding spleen with new splenic hemorrhage. Increased size of peripancreatic fluid collections: adjacent to pancreatic head 2.5 cm --> 3.6 cm, and LUQ 3.5 cm --> 3.9 cm Continues on Zosyn Review of System pt not seen Physical Exam Physical Exam: pt not seen Results & Data Vital Signs (Past 12 Hours) Vital Signs Temp Pulse Pulse Resp BP Pulse Ox O2 Del Method 01/22/23 11:16 36.5 C 96 H 20 132/74 99 Nasal Cannula 01/22/23 07:33 36.4 C L 97 H 20 104/73 97 Nasal Cannula 01/22/23 07:31 98 H 01/22/23 03:15 36.6 C 95 H 19 101/62 99 Nasal Cannula O2 Flow Rate 01/22/23 11:16 2 01/22/23 07:33 2 01/22/23 07:31 01/22/23 03:15 2 Laboratory Results Short CBC 01/22/23 Range/Units 06:43 WBC 26.36 H (4.8-10.8) K/ul Hgb 8.4 L (12.0-16.0) g/dl Hct 25.6 L (37.0-47.0) % Plt Count 366 (130-400) K/uL BMP 01/22/23 06:43 Sodium 142 Potassium 3.7 Chloride 111 H Carbon Dioxide 18 L BUN 50 H Creatinine 2.78 H Glucose 135 H Calcium 7.7 L Liver Function 01/22/23 Range/Units 06:43 Total Bilirubin 0.5 (0.2-1.0) mg/dl AST 15 (13-39) U/L ALT 10 (7-52) U/L Alkaline Phosphatase 67 (34-104) U/L Albumin 2.0 L (3.4-5.0) gm/dl Diagnostic Findings Endo Retro Cholangiopancreatogram 01/19/23 00:00 [place] ERCP biliary ductal CLINICAL HISTORY: ERCP. Bile leak. COMPARISON STUDY: Abdomen and pelvis CT 01/15/2023. FLUOROSCOPY TIME: 21 seconds FLUOROSCOPY IMAGES: 6 Ka,r: 4.4 mGy FINDINGS: The ampulla was cannulated and contrast was injected into the common bile duct. A balloon sweep was performed. Patient is status post cholec ystectomy. There is evidence for a bile leak at the cystic duct remnant. A common bile duct stent was placed. IMPRESSION: 1. Confirmation of the bile duct leak at the cystic duct remnant. 2. A common bile duct stent was placed and appears in good position. ACT 112: Negative or not required by law. Electronically signed by: Dannie Chowdhury M.D. 01/19/2023 3:19 PM Abdomen/Pelvis CT 01/21/23 10:[address] WITHOUT CONTRAST CT DOSE: 728.98 mGy.cm HISTORY: Acute generalized abdominal pain with possible bile leak worsening pain, bile leak TECHNIQUE: Multiaxial CT images of the abdomen and pelvis were performed without contrast. A dose lowering technique was utilized adhering to the principles of ALARA. COMPARISON STUDY: CT abdomen and pelvis 01/15/2023, hepatobiliary study 01/18/2023. FINDINGS: Moderate left pleural effusion with left basilar consolidation. The amount of left-sided pleural fluid has mildly increased. Trace right pleural effusion with moderate basilar atelectasis. Limited exam without the use of IV contrast or enteric. Mildly increased amount of abdominal pelvic ascites, notably with increased amount of free fluid surrounding the spleen. This includes both simple and complex fluid with hyperdense foci measuring up to 3.3 cm on image 108. There is again mass effect upon the adjacent spleen. Unremarkable adrenal glands. Severe acute pancreatitis redemonstrated with similar appearance of the interstitial and peripancreatic inflammation. Peripancreatic fluid collections are again noted, suboptimally evaluated without the use of IV contrast. 3.6 cm collection adjacent to the pancreatic head on image 182 previously measured 2.5 cm. A 3.9 cm fluid attenuating structure within the abdominal left upper quadrant previously measured 3.5 cm. Unremarkable liver. Intrahepatic and extrahepatic pneumobilia is redemonstrated with a common bile duct stent in place. Air and fluid-filled structure within the tima hepatis now measures 3.5 x 0.8 cm, previously 5.4 x 2.7 cm. Right subhepatic percutaneous drainage catheter is in unchanged positioning. Subcutaneous collection adjacent to the catheter tract is similar to prior. Numerous nonobstructing bilateral renal calculi are noted measuring up to 11 mm on the left 11 mm on the right. Mild nonspecific bilateral perinephric stranding. No ureteral calculi or hydronephrosis. Unremarkable urinary bladder and uterus. Atherosclerosis aorta. Wall thickening of the stomach and duodenum is likely reactive. No bowel obstruction or additional bowel wall thickening. Unremarkable soft tissues. Tiny fat filled umbilical hernia. No acute fracture. IMPRESSION: 1. Severe acute pancreatitis is similar appearance to the 01/15/2023 exam with persistent acute peripancreatic fluid collections. 2. Prior cholecystectomy with decreased size of the air and fluid-filled structure within the tima hepatis. 3. Common bile duct stent in place with persistent pneumobilia. 4. Unchanged positioning of the right subhepatic percutaneous drainage catheter. 5. Increased amount of abdominopelvic ascites, notably surrounding the spleen with new perisplenic hemorrhage. 6. Bilateral nephrolithiasis. 7. Moderate left pleural effusion with left basilar consolidation. 8. Additional findings as above. ACT 112: Negative or not required by law. The above report was generated using voice recognition software. It may contain grammatical, syntax or spelling errors. Electronically signed by: Nick Stone M.D. 01/21/2023 11:21 AM Medications Administered Current Inpatient Medications Acetaminophen (Acetaminophen 325 Mg Tab) 650 mg PO Q6 PRN PRN Reason: Fever Or MILD Pain Stop: 02/14/23 23:34 Last Admin: 01/21/23 08:05 Dose: 650 mg Amiodarone HCl (Amiodarone 200 Mg Tab) 200 mg PO QAM [facility]ANDANA Stop: 02/15/23 08:59 Last Admin: 01/22/23 09:27 Dose: 200 mg Apixaban (Apixaban 5 Mg Tablet) 5 mg PO BID VANDANA Stop: 02/15/23 08:59 Last Admin: 01/21/23 08:05 Dose: 5 mg Calamine/Phenol (Menthol-Zinc Oxide 360 Appln/120 Gm Tube) 1 appln EXT TID VANDANA Stop: 02/15/23 08:59 Last Admin: 01/22/23 10:03 Dose: 1 appln Dextrose (Dextrose 50% 50 Ml Syringe) 25 - 50 ml IV UD PRN; Protocol PRN Reason: Hypoglycemia Protocol Stop: 02/15/23 08:04 Glucagon (Glucagon For Inj 1 Mg Vial) 1 mg SQ UD PRN; Protocol PRN Reason: Hypoglycemia Protocol Stop: 02/15/23 08:04 Glucose (Glucose 40% Gel 15 Gm Tube) 15 - 30 gm PO UD PRN; Protocol PRN Reason: Hypoglycemia Protocol Stop: 02/15/23 08:04 Glucose (Glucose 10 Tab/Tube) 4 - 8 tab PO UD PRN; Protocol PRN Reason: Hypoglycemia Treatment Stop: 02/15/23 08:04 Lactated Ringer's (Lr) 1,000 mls @ 100 mls/hr IV .Q10H [facility]ANDANA Stop: 02/21/23 09:44 Last Admin: 01/22/23 10:33 Dose: 100 mls/hr Piperacillin Sod/Tazobactam (Sod 4.5 gm/ Dextrose) 120 mls @ 30 mls/hr IV Q12H VANDANA; Protocol Stop: 01/26/23 03:59 Insulin Aspart (Insulin Aspart Per Unit Charge) 0 units SC ACHS [facility] Stop: 02/15/23 08:14 Last Admin: 01/22/23 12:27 Dose: Not Given Magnesium Oxide (Magnesium Oxide 400 Mg Tab) 400 mg PO QAM [facility] Stop: 02/15/23 08:59 Last Admin: 01/22/23 10:02 Dose: 400 mg Methimazole (Methimazole 5 Mg Tablet) 5 mg PO DAILY [facility] Stop: 02/15/23 08:59 Last Admin: 01/22/23 09:27 Dose: 5 mg Miscellaneous (Carbohydrates For Hypoglycemia ) 15 - 30 gm PO UD PRN PRN Reason: Hypoglycemia Protocol Stop: 02/15/23 08:04 Sertraline HCl (Sertraline Hcl 50 Mg Tablet) 50 mg PO QAM [facility] Stop: 02/15/23 08:59 Last Admin: 01/22/23 09:27 Dose: 50 mg
--- NOTE | 2023-01-22 14:06 | Gastroenterology Progress Note ---
Date of Service January 22, 2023 Assessment & Plan (1) Acute pancreatitis: (2) Sepsis: Plan: 72 year old female with history of pancreatitis s/p choledocholithiasis removal via ERCP, biliary stent placement last month, cholecystectomy complicated by bile leak managed by MIMI drain in tima hepatis area admitted w/ sepsis, abdominal pain. CT showed decreased pancreatic fluid collection, + L pleural effusion concerning for pneumonia. Biliary stent in good position w pneumobilia. MIMI drain was manipulated by Surgery and is now draining more. Drain fluid culture growing enterococcus. She underwent ERCP on 01/19 for metal CBD stent placement for bile leak. Repeat CT abd/pelvis yesterday showed decreasing fluid and air collection in periportal area, but new perisplenic hemorrhage and persistent pancreatic fluid collection - Monitor R abd drain outpt - IV antibx with broad spectrum coverage; sepsis management per ICU/primary teams - LR IVF support - Dobhoff feeding tube placement for nutritional support. - Will defer IR drainage of pancreas fluid collection given small size and risk for further infection Admission and Anticipated Discharge Date Admission Date: January 15, 2023 Supervising Physician Co-Signing Physician Notes attg add: I interviewed and examined pt, reviewed chart and labs. Pt with de creasing MIMI output. Persistent pain and decreased PO. Plan for trial of NG feeds. Subjective Pt c/o abd pain, no n/v, no appetite to eat today Review of Systems Review of Systems: All systems reviewed & are unremarkable except as noted in HPI & below Physical Exam Constitutional: WD/WN, vitals as above + frail appearing, cooperative and comfortable Eyes: PERRL, conjunctivae normal, anicteric sclerae ENMT: external ear and nose normal, oropharynx normal Respiratory: diminished lung sounds Cardiovascular: RRR, no murmur, no edema Gastrointestinal (Abdomen): Soft, generalized ttp, R sided drain with greenish output to stoma bag, BS hypoactive Skin: no rashes, warm and dry no jaundice Psychiatric: AAOx3, flat affect Lymphatic: no lymphedema Results & Data Vital Signs (Past 12 Hours) Vital Signs Temp Pulse Pulse Resp BP Pulse Ox O2 Del Method 01/22/23 11:16 36.5 C 96 H 20 132/74 99 Nasal Cannula 01/22/23 07:33 36.4 C L 97 H 20 104/73 97 Nasal Cannula 01/22/23 07:31 98 H 01/22/23 03:15 36.6 C 95 H 19 101/62 99 Nasal Cannula O2 Flow Rate 01/22/23 11:16 2 01/22/23 07:33 2 01/22/23 07:31 01/22/23 03:15 2 (1) Acute pancreatitis Acute pancreatitis complication: unspecified Pancreatitis type: unspecified pancreatitis type Qualified Code(s): K85.90 - Acute pancreatitis without necrosis or infection, unspecified (2) Sepsis Sepsis acute organ dysfunction status: unspecified Sepsis type: sepsis due to unspecified organism Qualified Code(s): A41.9 - Sepsis, unspecified organism
--- NOTE | 2023-01-22 15:49 | Electrocardiogram Report ---
Test Reason : Blood Pressure : / mmHG Vent. Rate : 099 BPM Atrial Rate : 099 BPM P-R Int : 158 ms QRS Dur : 070 ms QT Int : 372 ms P-R-T Axes : 045 009 -08 degrees QTc Int : 477 ms Poor data quality, interpretation may be adversely affected Normal sinus rhythm Nonspecific T wave abnormality Abnormal ECG When compared with ECG of 15-JAN-2023 17:09, Nonspecific T wave abnormality now evident in Inferior leads Nonspecific T wave abnormality now evident in Anterolateral leads QT has shortened Confirmed by Matt Head ([id number]) on 01/22/2023 3:48:55 PM Referred By: REFERRED SELF Confirmed By:Matt Head
--- NOTE | 2023-01-22 15:57 | Hospitalist Progress Note ---
Date of Service January 22, 2023 Assessment & Plan (1) Septic shock: Plan: Patient was recently hospitalized for about a month during which she was managed for acute pancreatitis, acute cholangitis, septic shock, acute renal failure requiring dialysis briefly, paroxysmal A-fib. Underwent ERCP on 12/10 with removal of stones from the bile duct. Underwent lap adele with extensive lysis of adhesions on 12/10 by general surgery. [facility] and represented with abdominal and back pain. Labs on presentation showed worsening leukocytosis, worsening renal function and has been hypotensive. Being managed for septic shock.Was on Levophed which was weaned off around 5pm today (01/17). Sources of sepsis include possible intra-abdominal infection considering recent severe pancreatitis, surgical subhepatic drain in situ, recent UTI. Acute on chronic pancreatitis Continue on Zosyn for now after stent exchange performed by GI Initial ID consultation was done on 01/18/2023 and repeat follow-up will be done on 01/22/2023 Has pleural effusion (left) on CT abd/pelvis. Not in resp distress but she does have a slight cough. 01/21/2023 Complaining of more abdominal pain though the white count has been improving CT of the abdomen and pelvis showed severe acute pancreatitis as on 01/15/2023 and a new perisplenic hemorrhage We will continue with current pain medications and hold Eliquis Hemoglobin did not drop and the pain is controlled Discussed with the surgeon, GI and IR facility over [facility] and plan is to repeat the scan tomorrow any [facility] fluid collection/hemorrhage is increasing the patient will be transferred to tertiary care center for definitive drainage Discussed with the family members about this measure (2) Hyperthyroidism: Plan: Patient on methimazole which is known to have a side effect of pancreatitis. However, will cont for now as this pancreatitis is improved clinically and there are more likely causes/contributing factors. (3) Pleural effusion, left: Plan: hopeful this will improve after stent exchange and with time and movement. If no improvement, may need to consider thoracentesis. Repeat CT showed moderate left pleural effusion as before (4) Acute renal failure: Plan: Worsening renal function in setting of septic shock, around 2.6. Recent temporary dialysis last month which she is off of now. Nephro following. Creat appears stable although still worse than her baseline. Creatinine remains stable at 2.66 (5) Acute pancreatitis: Plan: Intra-abdominal fluid collection as below: CT abdomen and pelvis without contrast on admission noted redemonstration of severe acute pancreatitis similar to 12/31/2022, CBD stent in satisfactory position, unchanged position of right subhepatic percutaneous drainage, bilateral nephrolithiasis without ureteral calculi or hydronephrosis, moderate left pleural effusion increased in size with left basilar consolidation suggestive of atelectasis, increased amount of abdominal left upper quadrant ascites Repeat CT of the abdomen pelvis showed: 01/21/2023 1. Severe acute pancreatitis is similar appearance to the 01/15/2023 exam with persistent acute peripancreatic fluid collections. 2. Prior cholecystectomy with decreased size of the air and fluid-filled structure within the tima hepatis. 3. Common bile duct stent in place with persistent pneumobilia. 4. Unchanged positioning of the right subhepatic percutaneous drainage catheter. 5. Increased amount of abdominopelvic ascites, notably surrounding the spleen with new perisplenic hemorrhage. 6. Bilateral nephrolithiasis. 7. Moderate left pleural effusion with left basilar consolidation. 8. Additional findings as above. We will continue with current antibiotic and pain medications Peripancreatic fluid collection is not accessible as per IR in this hospital Plan s/p ERCP with bile duct stent exchange. Bile leak was noted intraoperatively. New transcutaneous drain in place draining into colostomy bag. She is recovering well, slightly lethargic. Continues with therapy with plans for rehab. Nutritional status She has not been eating or drinking enough Discussed with the GI and plan to put coresafe and start tube feeding Other significant medical condition as below Paroxysmal atrial fibrillation-rate is controlled and has been on Eliquis Depression-seems to be stable and Multiple sclerosis-difficult to evaluate any progress given current illness Has been bedbound for the last 1 month DVT ppx- apixaban Full code Dispo-to rehab next week. Admission and Anticipated Discharge Date Admission Date: January 15, 2023 Subjective 01/21/2023 The patient was seen and examined in telemetry unit in presence of the She has been complaining of more abdominal pain today without any nausea and or vomiting Denies any fever and or chills Denies any shortness of breath 01/22/2023 The patient was seen and examined in telemetry unit in presence of the She remains weak and lethargic but does not have any more abdominal pain at rest Her vitals remained stable and her hemoglobin has not changed Review of Systems Review of Systems: All systems reviewed and are unremarkable except as noted below Physical Exam Physical Exam: Lying in bed with acute distress due to abdominal pain Constitutional: well developed, well nourished, + ill appearing and + obese Eyes: PERRL, conjunctivae normal, anicteric sclerae ENMT: external ear and nose normal, oropharynx normal Neck: trachea midline, no thyromegaly Respiratory: no respiratory distress Auscultation: + diminished lung sounds and + crackles (Minimal crackles left base) Cardiovascular: Rate/Rhythm: regular rate, regular rhythm and + tachycardic Heart Sounds: normal S1 and normal S2; no murmur Extremities: + edema (Trace edema bilaterally) Gastrointestinal (Abdomen): Inspection/Auscultation: + abdomen distended and normal bowel sounds Percussion/Palpation: + abdomen tender and abdomen soft Musculoskeletal: No acute arthritis involving any joint Neurologic: normal touch/pain/proprioception and moves all extremities; no focal motor deficits Psychiatric: A+Ox3, euthymic affect Lymphatic: no cervical or axillary lymphadenopathy Results & Data Results & Data Vital Signs (Past 12 Hours) Vital Signs Temp Pulse Pulse Resp BP Pulse Ox O2 Del Method 01/22/23 15:19 99 H 01/22/23 14:15 99 H 20 122/74 99 Nasal Cannula 01/22/23 11:16 36.5 C 96 H 20 132/74 99 Nasal Cannula 01/22/23 07:33 36.4 C L 97 H 20 104/73 97 Nasal Cannula 01/22/23 07:31 98 H O2 Flow Rate 01/22/23 15:19 01/22/23 14:15 2 01/22/23 11:16 2 01/22/23 07:33 2 01/22/23 07:31 Laboratory Results Short CBC 01/22/23 Range/Units 06:43 WBC 26.36 H (4.8-10.8) K/ul Hgb 8.4 L (12.0-16.0) g/dl Hct 25.6 L (37.0-47.0) % Plt Count 366 (130-400) K/uL BMP 01/22/23 06:43 Sodium 142 Potassium 3.7 Chloride 111 H Carbon Dioxide 18 L BUN 50 H Creatinine 2.78 H Glucose 135 H Calcium 7.7 L Liver Function 01/22/23 Range/Units 06:43 Total Bilirubin 0.5 (0.2-1.0) mg/dl AST 15 (13-39) U/L ALT 10 (7-52) U/L Alkaline Phosphatase 67 (34-104) U/L Albumin 2.0 L (3.4-5.0) gm/dl Medications Administered Current Inpatient Medications Acetaminophen (Acetaminophen 325 Mg Tab) 650 mg PO Q6 PRN PRN Reason: Fever Or MILD Pain Stop: 02/14/23 23:34 Last Admin: 01/21/23 08:05 Dose: 650 mg Amiodarone HCl (Amiodarone 200 Mg Tab) 200 mg PO QAM VANDANA Stop: 02/15/23 08:59 Last Admin: 01/22/23 09:27 Dose: 200 mg Apixaban (Apixaban 5 Mg Tablet) 5 mg PO BID VANDANA Stop: 02/15/23 08:59 Last Admin: 01/21/23 08:05 Dose: 5 mg Calamine/Phenol (Menthol-Zinc Oxide 360 Appln/120 Gm Tube) 1 appln EXT TID VANDANA Stop: 02/15/23 08:59 Last Admin: 01/22/23 14:17 Dose: 1 appln Dextrose (Dextrose 50% 50 Ml Syringe) 25 - 50 ml IV UD PRN; Protocol PRN Reason: Hypoglycemia Protocol Stop: 02/15/23 08:04 Glucagon (Glucagon For Inj 1 Mg Vial) 1 mg SQ UD PRN; Protocol PRN Reason: Hypoglycemia Protocol Stop: 02/15/23 08:04 Glucose (Glucose 40% Gel 15 Gm Tube) 15 - 30 gm PO UD PRN; Protocol PRN Reason: Hypoglycemia Protocol Stop: 02/15/23 08:04 Glucose (Glucose 10 Tab/Tube) 4 - 8 tab PO UD PRN; Protocol PRN Reason: Hypoglycemia Treatment Stop: 02/15/23 08:04 Lactated Ringer's (Lr) 1,000 mls @ 100 mls/hr IV .Q10H VANDANA Stop: 02/21/23 09:44 Last Admin: 01/22/23 10:33 Dose: 100 mls/hr Piperacillin Sod/Tazobactam (Sod 4.5 gm/ Dextrose) 120 mls @ 30 mls/hr IV Q12H VANDANA; Protocol Stop: 01/26/23 03:59 Insulin Aspart (Insulin Aspart Per Unit Charge) 0 units SC ACHS [facility] Stop: 02/15/23 08:14 Last Admin: 01/22/23 12:27 Dose: Not Given Magnesium Oxide (Magnesium Oxide 400 Mg Tab) 400 mg PO QAM [facility] Stop: 02/15/23 08:59 Last Admin: 01/22/23 10:02 Dose: 400 mg Methimazole (Methimazole 5 Mg Tablet) 5 mg PO DAILY [facility] Stop: 02/15/23 08:59 Last Admin: 01/22/23 09:27 Dose: 5 mg Miscellaneous (Carbohydrates For Hypoglycemia ) 15 - 30 gm PO UD PRN PRN Reason: Hypoglycemia Protocol Stop: 02/15/23 08:04 Sertraline HCl (Sertraline Hcl 50 Mg Tablet) [facility] Stop: 02/15/23 08:59 Last Admin: 01/22/23 09:27 Dose: 50 mg (5) Acute pancreatitis Acute pancreatitis complication: unspecified Pancreatitis type: unspecified pancreatitis type Qualified Code(s): K85.90 - Acute pancreatitis without necrosis or infection, unspecified
[2023-01-23] MEDS: PIPERACILLIN/TAZOBACTAM 4.5 GM in DEXTROSE 5% 100 ML IV SCH ×4 (04:01→19:47)
[2023-01-23 06:25] LABS: Basophils # (auto) 0.04 K/uL (0-0.2); Basophils % (auto) 0.2 %; Eosinophils # (auto) 0.19 K/uL (0-0.50); Eosinophils % (auto) 0.8 %; Hematocrit (blood only) 24.6 % (37.0-47.0); Immature Granulocytes # (auto) 0.36 K/uL (0.01-0.20); Immature Granulocytes % (auto) 1.5 %; Lymphocytes # (auto) 3.58 K/uL (1.2-3.4); Lymphocytes % (auto) 14.4 %; Mean Corpuscular Hgb Conc 32.5 g/dL (32.0-36.0); Mean Platelet Volume 9.1 fL (9.4-12.4); Monocytes % (auto) 9.3 %; Neutrophils # (auto) 18.35 K/uL (1.40-6.50); Neutrophils % (auto) 73.8 %; Nucleated RBC # (auto) 0.02 K/uL (0-0.12); Nucleated RBC % (auto) 0.1 %; Platelet Count 399 K/uL (130-400); RDW Coefficient of Variation 15.9 % (11.5-14.5); RDW Standard Deviation 49.5 fL (36.4-46.3); Red Blood Count 2.86 M/uL (4.20-5.40); White Blood Count 24.82 K/ul (4.8-10.8)
[2023-01-23 06:37] LABS: BUN Creatinine Ratio 19.2 (10-20); Calcium 7.6 mg/dl (8.6-10.3); Creatinine Clr Calc Pharmacy 21.7 ml/min; Est GFR (African American) 21.4 ml/min; Est GFR (Non-African American) 18.4 ml/min; Magnesium 1.9 mg/dl (1.7-2.4); Phosphorus 4.9 mg/dl (2.5-4.9); Potassium 3.1 mmol/L (3.5-5.1)
[2023-01-23] MEDS: LACTATED RINGER'S 1,000 ML IV SCH ×3 (06:44→17:57)
[2023-01-23] MEDS ORDERED: MAGNESIUM SULFATE / D5W 1 GM/100 ML BAG IV ONE (06:56)
[2023-01-23] MEDS ORDERED: METOPROLOL TARTRATE 1 MG/ML VIAL IV STA (06:56)
[2023-01-23] MEDS ORDERED: POTASSIUM CHLORIDE PWD 20 MEQ PACK PO STA (06:56)
[2023-01-23] MEDS: methIMAzole 5 MG TABLET PO SCH (07:34)
[2023-01-23] MEDS: AMIODARONE 200 MG TAB PO SCH (07:34)
[2023-01-23] MEDS: INSULIN ASPART PER UNIT CHARGE SC SCH ×4 (07:35→21:00)
[2023-01-23] MEDS: SERTRALINE HCL 50 MG TABLET PO SCH (07:35)
[2023-01-23] MEDS ORDERED: POTASSIUM CHLORIDE PWD 20 MEQ PACK PO ONE (09:00)
--- NOTE | 2023-01-23 09:23 | CT Scan Report ---
CT OF THE ABDOMEN AND PELVIS WITHOUT CONTRAST CLINICAL HISTORY: Splenic hemorrhage. COMPARISON STUDY: CT of the abdomen and pelvis January 15, 2023 and January 21, 2023. TECHNIQUE: Axial images of the abdomen and pelvis were obtained without IV contrast. Images were revi ewed in the axial, sagittal, and coronal planes. Automated exposure control was utilized for the carmela dy. A dose lowering technique was utilized adhering to the principles of ALARA. FINDINGS: A moderate left pleural effusion is similar to CT of January 21, 2023. There is associated le ft lower lobe atelectasis. Scattered airspace opacities within the lower lungs are present. No pneuma tosis or portal venous gas is present. A right upper quadrant drain within the cholecystectomy bed is noted. A common bile duct stent is in place. Gas within the cholecystectomy bed has increased since prior exam of January 21, 2023. A loculated fluid collection along the lateral segment of the liver monet sures 9.1 x 7.5 cm. This has increased in size since prior CT. Loculated fluid along the stomach with mass effect upon the stomach has also increased. There may be wall thickening of the gastric antrum. This could be due to underdistention. Perisplenic fluid collection has increased in size since CT of January 21, 2023. Multiple sites of increased attenuation representing hemorrhage. The spleen is irreg ular and diminutive suggestive of splenic injury. Note is again made of evidence for severe pancreati tis with edematous pancreas with suspected underlying necrosis. Fluid collection within the pancreati c head is unchanged. There is no gas within the pancreas. There is no evidence for a bowel obstructio n. Small to moderate fluid within the pelvis has slightly increased. Bilateral renal calculi are agai n noted. There are no ureteral calculi. There is no hydronephrosis. Trace gas within the bladder. No acute fractures are identified within visualized skeletal structures. IMPRESSION: 1. Findings consistent with severe acute pancreatitis. Multiple pancreatic and peripancreatic fluid c ollections with suspected underlying pancreatic necrosis. 2. Perisplenic hemorrhage, stable to slightly increased since prior CT. The perisplenic fluid collect ion has increased in size since prior CT. Irregularity of the spleen consistent with splenic injury. 3. Increase in size of perihepatic and perigastric fluid collections with mass effect upon the stomac h. The perihepatic fluid collection could be related to a bile leak or acute pancreatitis. 4. Increase in gas within the cholecystectomy bed. This is nonspecific given indwelling surgical drai n and common bile duct stent however a persistent biliary leak cannot be excluded. 5. No significant change in a moderate left pleural effusion with left lower lobe atelectasis. 6. Slight increase in small to moderate pelvic ascites. ACT 112: Negative or not required by law. Electronically signed by: Brent Estrada M.D. 01/23/2023 9:22 AM
[2023-01-23] MEDS: MAGNESIUM OXIDE 400 MG TAB PO SCH (09:24)
[2023-01-23] MEDS: MENTHOL-ZINC OXIDE 360 APPLN/120 GM TUBE EXT SCH ×3 (09:24→20:44)
[2023-01-23] MEDS ORDERED: POTASSIUM CHLORIDE / WTR 10 MEQ/100 ML PLCT IV SCH (09:45)
--- NOTE | 2023-01-23 10:21 | Nephrology Progress Note ---
Date of Service January 23, 2023 Assessment & Plan Admission and Anticipated Discharge Date Admission Date: January 15, 2023 Subjective Assessment & Plan (1) Acute renal failure: Plan: nonoliguric ischemic ATN Her baseline creatinine as recently as the middle of last month was actually 0.9. During mid November to mid December extended admission for cholangitis and pancr eatitis with complications, she had acute renal failure requiring several treatments of intermittent hemodialysis, with last treatment January 01. Her renal function recovered sufficiently to stop hemodialysis. Her discharge creatinine was 1.8 on January 12. Her presenting creatinine this admission on January 15 was 2 and for last 1 week 2.4 to 2.7 Surgery note says she might have possible necrotizing Infected Peritonitis and likely needs transfer for IR support. CT Abdomen from this AM shows lot of fluid collections. has edema and more ascites and pl effusion--no need of iv fluids. may actually need lasix. low K and Already got some Kcl. It is somewhat good that despite so much issue her creat has not gone up for almost a week now. Creat holding 2.4 to 2.7 and today down a bit to 2.5. Continue to monitor renal function with daily BMP Avoid nephrotoxins Subjective Seen for acute kidney injury. Patient has required dialysis in the previous admission. making urine but ?? amount. No shortness of breath.Legs are slightly swollen. Main complaint is abdominal pain. Review of Systems Review of Systems: All other systems were reviewed and negative except as noted in HPI Physical Exam Physical Exam: General exam: Appears comfortable, no acute distress HEENT: Pupils are equal and reactive to light Neck: No JVD, neck is supple trachea is midline Respiratory system: crackles bilaterally. Gastrointestinal: Abdomen is soft, non distended, non tender, bowel sounds are present CVS: Regular rate and rhythm. No murmurs, rubs or gallops Musculoskeletal: No joint or muscle tenderness Extremities: Non tender, 1+ edema, peripheral pulses are present Neuro: Oriented, no tremors, no focal neurological deficits Skin: No rashes Results & Data Vital Signs (Past 12 Hours) Vital Signs Temp Pulse Resp BP Pulse Ox O2 Del Method O2 Flow Rate 01/23/23 07:00 36.8 C 98 H 20 132/98 98 Nasal Cannula 3.0 01/23/23 03:00 36.8 C 17 147/81 H 98 Nasal Cannula 2 01/22/23 23:00 36.8 C 97 H 18 110/80 99 Nasal Cannula 2 01/22/23 22:30 Nasal Cannula 2
--- NOTE | 2023-01-23 12:36 | Gastroenterology Progress Note ---
Date of Service January 23, 2023 Assessment & Plan (1) Bile leak from gallbladder bed: (2) Pancreatitis: (3) Sepsis: (4) Acute pancreatitis: (5) Acute renal failure: Plan 72 year old female with history of pancreatitis s/p choledocholithiasis removal via ERCP, biliary stent placement last month, cholecystectomy complicated by bile leak managed by MIMI drain in tima hepatis area admitted w/ sepsis, abdominal pain. CT initially showed decreased pancreatic fluid collection, + L pleural effusion concerning for pneumonia. Biliary stent in good position w pneumobilia. MIMI drain was manipulated by Surgery and is now draining more. Drain fluid culture growing enterococcus. She underwent ERCP on 01/19 for metal CBD stent placement for bile leak. Drain output about 250ml yesterday. Repeat CT abdomen and pelvis without contrast this morning showed pancreatitis with multiple pancreatic and peripancreatic fluid collection with suspected underlying pancreatic necrosis. There is also possible perisplenic hemorrhage, perisplenic fluid collection increased in size. Increasing perihepatic and perigastric fluid collection with mass effect on the stomach. Increasing gas within the cholecystectomy bed, nonspecific given indwelling surgical drain and CBD stent however persistent bile leak cannot be excluded. - Monitor R abd drain outpt - IV antibx with broad spectrum coverage; sepsis management per ICU/primary teams - LR IVF support - Dobhoff feeding tube placement for nutritional support. -> pt did not tolerate placement - Plan for EUS/ERCP 01/24 for biliary stent xchange and drainage of fluid collection. - FL diet today, NPO after midnight Admission and Anticipated Discharge Date Admission Date: January 15, 2023 Supervising Physician Co-Signing Physician Notes Attg add: I interviewed and examined pt, reviewed chart and labs. Pt with cont'd pain, poor PO/intolerant Ng tube, biliary drain output 200's for the past 3 days. Repeat imaging shows irais-hepatic bile collection that is well drained but increasing perigastric fluid collections that are causing gastric compression, and stable perisplenic hematoma. She has a peristent biliary leak. Increasing perigastric fluid collection seem more likely biloma then WOPN. D/w Dr. Mcneill - repeat ERCP with Viabil, EUS with drainage of perigastric fluid collection. Etiology of irais-splenic hematoma unclear -- hemorrhagic WOPN? Pseudoaneursm? Unable to get conrtast study and stable imaging / labs -- defer w/u for now. Subjective Corsafe placement attempted yesterday. Patient was complaining of pain after tube was placed and this was removed. Still very low appetite and having abdominal pain. No nausea or vomiting. Review of Systems Review of Systems: All systems reviewed & are unremarkable except as noted in HPI & below Physical Exam Constitutional: WD/WN, vitals as above + ill appearing, well groomed and cooperative Eyes: PERRL, conjunctivae normal, anicteric sclerae ENMT: external ear and nose normal, oropharynx normal Respiratory: Normal respiratory effort, no distress noted. Diminished overall lung sounds. Cardiovascular: RRR, no murmur, no edema Gastrointestinal (Abdomen): Abdomen soft, bowel sounds hypoactive, generalized tenderness on palpation. Right-sided abdominal drain with scant amount of greenish fluid in ostomy bag. Skin: no rashes, warm and dry no jaundice Neurologic: Motor/Sensory: no asterixis Psychiatric: Affect: + depressed affect Awake, alert, oriented x3. Lymphatic: no lymphedema Results & Data Vital Signs (Past 12 Hours) Vital Signs Temp Pulse Resp BP Pulse Ox O2 Del Method O2 Flow Rate 01/23/23 12:13 36.7 C 96 H 18 129/97 98 Nasal Cannula 2.0 01/23/23 07:00 36.8 C 98 H 20 132/98 98 Nasal Cannula 3.0 01/23/23 03:00 36.8 C 17 147/81 H 98 Nasal Cannula 2 (3) Sepsis Sepsis acute organ dysfunction status: unspecified Sepsis type: sepsis due to unspecified organism Qualified Code(s): A41.9 - Sepsis, unspecified organism (4) Acute pancreatitis Acute pancreatitis complication: unspecified Pancreatitis type: unspecified pancreatitis type Qualified Code(s): K85.90 - Acute pancreatitis without necrosis or infection, unspecified
[2023-01-23] MEDS: OCTREOTIDE ACETATE 100 MCG/ML VIAL SQ SCH ×2 (13:50→20:47)
--- NOTE | 2023-01-23 15:47 | Hospitalist Progress Note ---
Date of Service January 23, 2023 Assessment & Plan (1) Septic shock: Plan: Patient was recently hospitalized for about a month during which she was managed for acute pancreatitis, acute cholangitis, septic shock, acute renal failure requiring dialysis briefly, paroxysmal A-fib. Underwent ERCP on 12/10 with removal of stones from the bile duct. Underwent lap adele with extensive lysis of adhesions on 12/10 by general surgery. Was discharged to senior living facility and represented with abdominal and back pain. Labs on presentation showed worsening leukocytosis, worsening renal function and has been hypotensive. Being managed for septic shock.Was on Levophed which was weaned off around 5pm today (01/17). Sources of sepsis include possible intra-abdominal infection considering recent severe pancreatitis, surgical subhepatic drain in situ, recent UTI. Acute on chronic pancreatitis Continue on Zosyn for now after stent exchange performed by GI Initial ID consultation was done on 01/18/2023 and repeat follow-up will be done on 01/22/2023 Has pleural effusion (left) on CT abd/pelvis. Not in resp distress but she does have a slight cough. Appreciate ID input and recommendation to continue intravenous Zosyn for now 01/21/2023 Complaining of more abdominal pain though the white count has been improving CT of the abdomen and pelvis showed severe acute pancreatitis as on 01/15/2023 and a new perisplenic hemorrhage We will continue with current pain medications and hold Eliquis Hemoglobin did not drop and the pain is controlled Discussed with the surgeon, GI and IR facility over [facility] and plan is to repeat the scan tomorrow any [facility] fluid collection/hemorrhage is increasing the patient will be transferred to tertiary care center for definitive drainage Discussed with the family members about this measure Repeat scan today showed: Increasing fluid collection as below 1. Findings consistent with severe acute pancreatitis. 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 2. Perisplenic hemorrhage, stable to slightly increased since prior CT. The perisplenic fluid collection has increased in size since prior CT. Irregularity of the spleen consistent with splenic injury. 3. Increase in size of perihepatic and perigastric fluid collections with mass effect upon the stomach. The perihepatic fluid collection could be related to a bile leak or acute pancreatitis. 4. Increase in gas within the cholecystectomy bed. This is nonspecific given indwelling surgical drain and common bile duct stent however a persistent biliary leak cannot be excluded. 5. No significant change in a moderate left pleural effusion with left lower lobe atelectasis. 6. Slight increase in small to moderate pelvic ascites. Discussed with the general surgery, ID specialist and informed her about ERCP/EUS tomorrow Perisplenic fluid collection with possible bleeding from the spleen We will monitor May need to have IR drainage of the fluid (2) Hyperthyroidism: Plan: Patient on methimazole which is known to have a side effect of pancreatitis. However, will cont for now as this pancreatitis is improved clinically and there are more likely causes/contributing factors. (3) Pleural effusion, left: Plan: hopeful this will improve after stent exchange and with time and movement. If no improvement, may need to consider thoracentesis. Repeat CT showed moderate left pleural effusion as before (4) Acute renal failure: Plan: Worsening renal function in setting of septic shock, around 2.6. Recent temporary dialysis last month which she is off of now. Nephro following. Creat appears stable although still worse than her baseline. Creatinine is little bit better today at 2.50 and potassium was 3.1 which was replaced (5) Acute pancreatitis: Plan: Intra-abdominal fluid collection as below: CT abdomen and pelvis without contrast on admission noted redemonstration of severe acute pancreatitis similar to 12/31/2022, CBD stent in satisfactory position, unchanged position of right subhepatic percutaneous drainage, bilateral nephrolithiasis without ureteral calculi or hydronephrosis, moderate left pleural effusion increased in size with left basilar consolidation suggestive of atelectasis, increased amount of abdominal left upper quadrant ascites Repeat CT of the abdomen pelvis showed: 01/21/2023 1. Severe acute pancreatitis is similar appearance to the 01/15/2023 exam with persistent acute peripancreatic fluid collections. 2. Prior cholecystectomy with decreased size of the air and fluid-filled structure within the tima hepatis. 3. Common bile duct stent in place with persistent pneumobilia. 4. Unchanged positioning of the right subhepatic percutaneous drainage catheter. 5. Increased amount of abdominopelvic ascites, notably surrounding the spleen with new perisplenic hemorrhage. 6. Bilateral nephrolithiasis. 7. Moderate left pleural effusion with left basilar consolidation. 8. Additional findings as above. We will continue with current antibiotic and pain medications Repeat CT scan of the abdomen pelvis showed increasing fluid collection around pancreas and also perisplenic area Discussed with the daughter and the for possible transfer to tertiary care center to perform IR procedures down the line Plan s/p ERCP with bile duct stent exchange. Bile leak was noted intraoperatively. New transcutaneous drain in place draining into colostomy bag. She is recovering well, slightly lethargic. Continues with therapy with plans for rehab. Nutritional status She has not been eating or drinking enough Discussed with the GI and plan to put coresafe and start tube feeding Other significant medical condition as below Paroxysmal atrial fibrillation-rate is controlled and has been on Eliquis Depression-seems to be stable and Multiple sclerosis-she has been moving all of her extremities though has weakness in the legs. Has been bedbound for the last 1 month DVT ppx- apixaban -on hold due to splenic hemorrhage as above Full code Dispo-to rehab next week. Admission and Anticipated Discharge Date Admission Date: January 15, 2023 Subjective 01/21/2023 The patient was seen and examined in telemetry unit in presence of the She has been complaining of more abdominal pain today without any nausea and or vomiting Denies any fever and or chills Denies any shortness of breath 01/22/2023 The patient was seen and examined in telemetry unit in presence of the She remains weak and lethargic but does not have any more abdominal pain at rest Her vitals remained stable and her hemoglobin has not changed 01/23/2023 The patient was seen and examined in telemetry unit in presence of the She remains stable and does not complain of any increasing pain She could not tolerate coresef tube yesterday Minimal intake orally Review of Systems Review of Systems: All systems reviewed and are unremarkable except as noted below Physical Exam Physical Exam: Lying in bed without any acute distress but remains very weak and lethargic Constitutional: well developed, well nourished, + ill appearing and + obese Eyes: PERRL, conjunctivae normal, anicteric sclerae ENMT: external ear and nose normal, oropharynx normal Neck: trachea midline, no thyromegaly Respiratory: no respiratory distress Auscultation: + diminished lung sounds and + crackles (Minimal crackles left base) Cardiovascular: Rate/Rhythm: regular rate, regular rhythm and + tachycardic Heart Sounds: normal S1 and normal S2; no murmur Extremities: + edema (Trace edema bilaterally) Gastrointestinal (Abdomen): Inspection/Auscultation: + abdomen distended and normal bowel sounds Percussion/Palpation: + abdomen tender and abdomen soft Right upper quadrant drainage is not showing much drainage Musculoskeletal: No acute arthritis involving any of the joints Neurologic: normal touch/pain/proprioception and moves all extremities; no focal motor deficits Psychiatric: A+Ox3, euthymic affect Lymphatic: no cervical or axillary lymphadenopathy Results & Data Results & Data Vital Signs (Past 12 Hours) Vital Signs Temp Pulse Resp BP Pulse Ox O2 Del Method O2 Flow Rate 01/23/23 12:13 36.7 C 96 H 18 129/97 98 Nasal Cannula 2.0 01/23/23 07:00 36.8 C 98 H 20 132/98 98 Nasal Cannula 3.0 Laboratory Results Short CBC 01/23/23 Range/Units 05:37 WBC 24.82 H (4.8-10.8) K/ul Hgb 8.0 L (12.0-16.0) g/dl Hct 24.6 L (37.0-47.0) % Plt Count 399 (130-400) K/uL BMP 01/23/23 05:37 Sodium 143 Potassium 3.1 L Chloride 112 H Carbon Dioxide 18 L BUN 48 H Creatinine 2.50 H Glucose 122 H Calcium 7.6 L Diagnostic Findings Laboratory Results WBC 24.82 K/ul (4.8-10.8) H 01/23/23 05:37 RBC 2.86 M/uL (4.20-5.40) L 01/23/23 05:37 Hgb 8.0 g/dl (12.0-16.0) L 01/23/23 05:37 Hct 24.6 % (37.0-47.0) L 01/23/23 05:37 MCV 86.0 fL (80.0-100.0) 01/23/23 05:37 MCH 28.0 pg (25.0-34.0) 01/23/23 05:37 MCHC 32.5 g/dL (32.0-36.0) 01/23/23 05:37 RDW Std Deviation 49.5 fL (36.4-46.3) H 01/23/23 05:37 RDW Coeff of Mandy 15.9 % (11.5-14.5) H 01/23/23 05:37 Plt Count 399 K/uL (130-400) 01/23/23 05:37 MPV 9.1 fL (9.4-12.4) L 01/23/23 05:37 Immature Gran % (Auto) 1.5 % 01/23/23 05:37 Neut % (Auto) 73.8 % 01/23/23 05:37 Lymph % (Auto) 14.4 % 01/23/23 05:37 Citrus % (Auto) 9.3 % 01/23/23 05:37 Eos % (Auto) 0.8 % 01/23/23 05:37 Baso % (Auto) 0.2 % 01/23/23 05:37 Reticulocyte % (Auto) 2.3 % (0.5-2.0) H 01/18/23 11:18 Neut # (Auto) 18.35 K/uL (1.40-6.50) H 01/23/23 05:37 Lymph # (Auto) 3.58 K/uL (1.2-3.4) H 01/23/23 05:37 [place] # (Auto) 2.30 K/uL (0.11-0.59) H 01/23/23 05:37 Eos # (Auto) 0.19 K/uL (0-0.50) 01/23/23 05:37 Baso # (Auto) 0.04 K/uL (0-0.2) 01/23/23 05:37 Reticulocyte # 0.07 10^6/uL (0.02-0.10) 01/18/23 11:18 Immature Gran # (Auto) 0.36 K/uL (0.01-0.20) H 01/23/23 05:37 Absolute Nucleated RBC 0.02 K/uL (0-0.12) 01/23/23 05:37 Nucleated RBC % (auto) 0.1 % 01/23/23 05:37 Neutrophils % (Manual) 61 % 01/15/23 16:49 Lymphocytes % (Manual) 4 % 01/15/23 16:49 Monocytes % (Manual) 4 % 01/15/23 16:49 Eosinophils % (Manual) 2 % 01/15/23 16:49 Neutrophils # (Manual) 20.84 K/uL (1.40-6.50) H 01/15/23 16:49 Total Absolute Neuts 20.84 K/uL (1.4-6.5) H 01/15/23 16:49 Lymphocytes # (Manual) 1.37 K/uL (1.2-3.4) 01/15/23 16:49 Total Abs Lymphocytes 11.28 K/uL (1.2-3.4) H 01/15/23 16:49 Monocytes # (Manual) 1.37 K/uL (0.11-0.59) H 01/15/23 16:49 Eosinophils # (Manual) 0.68 K/uL (0-0.50) H 01/15/23 16:49 Large Granular Lymphs 29 % 01/15/23 16:49 # Lrg Granular Lymphs 9.91 K/uL 01/15/23 16:49 Polychromasia 1+ 01/16/23 05:08 Echinocytes 2+ 01/16/23 05:08 Acanthocytes (Spur) 2+ 01/17/23 05:06 PT 13.6 Seconds (9.0-12.0) H 01/15/23 16:49 INR 1.3 (0.9-1.1) H 01/15/23 16:49 APTT 39.1 Seconds (21.0-31.0) H 01/15/23 16:49 PTT Ratio 1.4 01/15/23 16:49 Sodium 143 mmol/L (136-145) 01/23/23 05:37 Potassium 3.1 mmol/L (3.5-5.1) L 01/23/23 05:37 Chloride 112 mmol/L (98-107) H 01/23/23 05:37 Carbon Dioxide 18 mmol/L (21-32) L 01/23/23 05:37 Anion Gap 13 (3-11) H 01/23/23 05:37 BUN 48 mg/dl (6-23) H 01/23/23 05:37 Creatinine 2.50 mg/dl (0.6-1.2) H 01/23/23 05:37 Est Cr Clr Drug Dosing 21.7 ml/min 01/23/23 05:37 Est GFR ( Amer) 21.4 ml/min 01/23/23 05:37 Est GFR (Non-Af Amer) 18.4 ml/min 01/23/23 05:37 BUN/Creatinine Ratio 19.2 (10-20) 01/23/23 05:37 Glucose 122 mg/dl (70-99(Fasting)) H 01/23/23 05:37 POC Glucose 151 mg/dl (70-99) H 01/23/23 11:18 Lactate 1.7 mmol/L (0.4-2.0) 01/15/23 19:05 Calcium 7.6 mg/dl (8.6-10.3) L 01/23/23 05:37 Phosphorus 4.9 mg/dl (2.5-4.9) 01/23/23 05:37 Magnesium 1.9 mg/dl (1.7-2.4) 01/23/23 05:37 Total Bilirubin 0.5 mg/dl (0.2-1.0) 01/22/23 06:43 Direct Bilirubin 0.1 mg/dl (0-0.2) 01/18/23 05:31 AST 15 U/L (13-39) 01/22/23 06:43 ALT 10 U/L (7-52) 01/22/23 06:43 Alkaline Phosphatase 67 U/L (34-104) 01/22/23 06:43 Troponin I High Sens 16.7 pg/ml (0-14) H 01/15/23 16:49 Total Protein 5.9 gm/dl (6.0-8.3) L 01/22/23 06:43 Albumin 2.0 gm/dl (3.4-5.0) L 01/22/23 06:43 Globulin 3.9 gm/dl (2.5-4.0) 01/22/23 06:43 Albumin/Globulin Ratio 0.5 (0.9-2) L 01/22/23 06:43 Lipase 303 U/L (11-82) H 01/16/23 05:08 Procalcitonin 0.94 ng/ml (0-0.5) H 01/15/23 16:49 TSH 2.049 uIu/ml (0.300-4.500) 01/16/23 00:01 Random Cortisol 55.24 mcg/dl 01/16/23 00:01 Urine Color Yellow 01/16/23 00:15 Urine Appearance Cloudy (Clear) A 01/16/23 00:15 Urine pH 5.0 (4.5-7.5) 01/16/23 00:15 Ur Specific [place] 1.015 (1.000-1.030) 01/16/23 00:15 Urine Protein 2+ (Negative) H 01/16/23 00:15 Urine Glucose (UA) Negative (Negative) 01/16/23 00:15 Urine Ketones Negative (Negative) 01/16/23 00:15 Urine Blood 2+ (Negative) H 01/16/23 00:15 Urine Nitrite Negative (Negative) 01/16/23 00:15 Urine Bilirubin Negative (Negative) 01/16/23 00:15 Urine Urobilinogen Negative (Negative) 01/16/23 00:15 Ur Leukocyte Esterase 2+ (Negative) H 01/16/23 00:15 Urine WBC (Auto) >30 /hpf (0-5) H 01/16/23 00:15 Urine RBC (Auto) 0-4 /hpf (0-4) 01/16/23 00:15 U Hyaline Cast (Auto) 1-5 /lpf (0-5) 01/16/23 00:15 U Epithel Cells (Auto) >30 /lpf (0-5) H 01/16/23 00:15 Urine Bacteria (Auto) Negative (Negative) 01/16/23 00:15 Ur Renal Epithelial Cell Not Reportable 01/16/23 00:15 Granular Casts 1-5 /lpf (0) H 01/16/23 00:15 Urine Yeast Not Reportable 01/16/23 00:15 Nasal Screen MRSA (PCR) Negative (Negative) 01/16/23 Unknown Random Vancomycin 20.6 mcg/ml (10-20) H 01/18/23 05:31 SARS-CoV-2, RNA, NAAT NEGATIVE (NEGATIVE) 01/15/23 20:08 Blood Type O Positive 01/18/23 11:18 Antibody Screen NEGATIVE 01/18/23 11:18 Impressions Chest X-Ray 01/15/23 16:50 XR chest 1V not portable HISTORY: 72 years-old Female Sepsis acute sepsis COMPARISON: Chest radiograph 12/26/2022 TECHNIQUE: AP view of the chest FINDINGS: Cardiac silhouette is enlarged. Status post removal of the hemodialysis catheter. No pneumothorax. Left greater than right pleural effusions with dense left basilar consolidation. Bones appear grossly intact. IMPRESSION: 1. Cardiomegaly without overt pulmonary edema. 2. Layering left pleural effusion with left basilar predominant consolidation suggestive of atelectasis versus pneumonia. ACT 112: Negative or not required by law. The above report was generated using voice recognition software. It may contain grammatical, syntax or spelling errors. Electronically signed by: Nick Stone M.D. 01/15/2023 5:30 PM Hepatobiliary Scan Nuclear Medicine 01/18/23 06:17 NUCLEAR MEDICINE HEPATOBILIARY SCAN HISTORY: assess for bile leak, CBD obstruction COMPARISON: Abdomen and pelvis CT 01/15/2023. TECHNIQUE: Immediately following the intravenous administration of 5.5 mCi Tc- 99m Choletec, dynamic anterior abdominal imaging was performed. FINDINGS: Uniform hepatic tracer accumulation is shown. Radiotracer is seen accumulating within the gallbladder fossa and draining into the percutaneous catheter within the right upper quadrant. Therefore, this is consistent with a bile leak. The common bile duct was not identified during the examination. Therefore this could be due to preferential flow of bile into the gallbladder fossa or possibly common bile duct obstruction. IMPRESSION: 1. Accumulation of radiotracer within the gallbladder fossa and right upper quadrant drainage catheter consistent with a bile leak. 2. Radiotracer was not identified within the common bile duct which could be due to preferential flow of bile into the gallbladder fossa or possibly a common bile duct obstruction. ACT 112: Negative or not required by law. Electronically signed by: Dannie Chowdhury M.D. 01/18/2023 11:15 AM Abdomen/Pelvis CT 01/23/23 07:20 CT OF THE ABDOMEN AND PELVIS WITHOUT CONTRAST CLINICAL HISTORY: Splenic hemorrhage. COMPARISON STUDY: CT of the abdomen and pelvis January 15, 2023 and January 21, 2023. TECHNIQUE: Axial images of the abdomen and pelvis were obtained without IV contrast. Images were reviewed in the axial, sagittal, and coronal planes. Automated exposure control was utilized for the study. A dose lowering technique was utilized adhering to the principles of ALARA. FINDINGS: A moderate left pleural effusion is similar to CT of January 21, 2023. There is associated left lower lobe atelectasis. Scattered airspace opacities within the lower lungs are present. No pneumatosis or portal venous gas is present. A right upper quadrant drain within the cholecystectomy bed is noted. A common bile duct stent is in place. Gas within the cholecystectomy bed has increased since prior exam of January 21, 2023. A loculated fluid collection along the lateral segment of the liver measures 9.1 x 7.5 cm. This has increased in size since prior CT. Loculated fluid along the stomach with mass effect upon the stomach has also increased. There may be wall thickening of the gastric antrum. This could be due to underdistention. Perisplenic fluid collection has increased in size since CT of January 21, 2023. Multiple sites of increased attenuation representing hemorrhage. The spleen is irregular and diminutive suggestive of splenic injury. Note is again made of evidence for severe pancreatitis with edematous pancreas with suspected underlying necrosis. Fluid collection within the pancreatic head is unchanged. There is no gas within the pancreas. There is no evidence for a bowel obstruction. Small to moderate fluid within the pelvis has slightly increased. Bilateral renal calculi are again noted. There are no ureteral calculi. There is no hydronephrosis. Trace gas within the bladder. No acute fractures are identified within visualized skeletal structures. IMPRESSION: 1. Findings consistent with severe acute pancreatitis. 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 2. Perisplenic hemorrhage, stable to slightly increased since prior CT. The perisplenic fluid collection has increased in size since prior CT. Irregularity of the spleen consistent with splenic injury. 3. Increase in size of perihepatic and perigastric fluid collections with mass effect upon the stomach. The perihepatic fluid collection could be related to a bile leak or acute pancreatitis. 4. Increase in gas within the cholecystectomy bed. This is nonspecific given indwelling surgical drain and common bile duct stent however a persistent biliary leak cannot be excluded. 5. No significant change in a moderate left pleural effusion with left lower lobe atelectasis. 6. Slight increase in small to moderate pelvic ascites. ACT 112: Negative or not required by law. Electronically signed by: Brent Estrada M.D. 01/23/2023 9:22 AM (5) Acute pancreatitis Acute pancreatitis complication: unspecified Pancreatitis type: unspecified pancreatitis type Qualified Code(s): K85.90 - Acute pancreatitis without necrosis or infection, unspecified
--- NOTE | 2023-01-23 17:05 | Anesthesiology Consultation ---
Date of Service January 23, 2023 Assessment & Plan Chart Review Chart Review: Acceptable Risk for Surgery and Patient NOT seen in Pre Admission Testing Consults Requested none ASA ASA4 Proposed Anesthesia Anesthesia Type: General History Surgery Operation Date: 01/19/23 07:00 Proposed Procedures p Endoscopic Retrograde Cholangiopancreatogram - Dwain Murcia DO Operation Date: 01/24/23 07:00 Proposed Procedures p Endoscopic Ultrasonography Upper - Rachel Mcneill MD s Endoscopic Retrograde Cholangiopancreato - Rachel Mcneill MD Height/Weight Height: 5 ft 4 in Weight: 89.1 kg Allergies Allergy/AdvReac Type Severity Reaction Status Date / Time No Known Allergies Allergy Unverified 01/15/23 17:50 Medications Home Medications Medication Instructions Recorded Confirmed Last Taken apixaban 5 mg tablet (Eliquis) 5 mg PO BID #60 tabs 01/12/23 01/15/23 01/15/23 08:30 levofloxacin 750 mg tablet 750 mg PO Q48H #3 tabs 01/12/23 01/15/23 01/14/23 am methimazole 5 mg tablet 5 mg PO DAILY #30 tabs 01/12/23 01/15/23 01/15/23 08:30 acetaminophen 325 mg tablet 650 mg PO Q6 PRN Fever Or Pain 01/15/23 01/15/23 Unknown amiodarone 200 mg tablet 200 mg PO QAM 01/15/23 01/15/23 01/15/23 am diclofenac sodium 1 % topical gel 2 g topical QID 01/15/23 01/15/23 01/15/23 08:30 magnesium oxide 400 mg (241.3 mg 400 mg PO QAM 01/15/23 01/15/23 01/15/23 08:30 magnesium) tablet menthol 0.44 %-zinc oxide 20.6 % 1 applic topical TID 01/15/23 01/15/23 01/15/23 12:30 topical ointment (Calmoseptine) metoprolol succinate 50 mg 50 mg PO AMHS 01/15/23 01/15/23 01/15/23 08:30 tablet,extended release 24 hr oxycodone 5 mg tablet 5 mg PO Q6 PRN pain,moderate 01/15/23 01/15/23 01/14/23 oxycodone 5 mg tablet 10 mg PO Q6 PRN pain,severe 01/15/23 01/15/23 01/15/23 12:16 sennosides 8.6 mg-docusate sodium 1 tab PO AMHS 01/15/23 01/15/23 01/15/23 08:30 50 mg tablet (Senokot-S) sertraline 50 mg tablet 50 mg PO QAM 01/15/23 01/15/23 01/15/23 am Active Medications Generic Name Dose Route Start Last Admin Trade Name Freq PRN Reason Stop Dose Admin Acetaminophen 650 mg 01/15/23 23:35 01/21/23 08:05 Acetaminophen 325 Mg Tab PO 02/14/23 23:34 650 mg Q6 PRN Administration Fever Or MILD Pain Amiodarone HCl 200 mg 01/23/23 07:00 01/23/23 07:34 Amiodarone 200 Mg Tab PO 02/22/23 06:59 200 mg QAM VANDANA Administration Apixaban 5 mg 01/16/23 09:00 01/21/23 08:05 Apixaban 5 Mg Tablet PO 02/15/23 08:59 5 mg BID VANDANA Administration Calamine/Phenol 1 appln 01/16/23 09:00 01/23/23 12:28 Menthol-Zinc Oxide 360 Appln/120 Gm Tube EXT 02/15/23 08:59 1 appln TID VANDANA Administration Lactated Ringer's 1,000 mls @ 200 mls/hr 01/22/23 09:45 01/23/23 12:27 Lr IV 02/21/23 09:44 100 mls/hr .Q5H VANDANA Administration Piperacillin Sod/Tazobactam 120 mls @ 30 mls/hr 01/23/23 12:00 01/23/23 13:11 Sod 4.5 gm/ Dextrose IV 01/26/23 03:59 30 mls/hr Q8H VANDANA Administration Protocol Insulin Aspart 0 units 01/19/23 21:00 01/23/23 12:27 Insulin Aspart Per Unit Charge SC 02/15/23 08:14 1 units ACHS VANDANA Administration Magnesium Oxide 400 mg 01/16/23 09:00 01/23/23 09:24 Magnesium Oxide 400 Mg Tab PO 02/15/23 08:59 400 mg QAM VANDANA Administration Methimazole 5 mg 01/16/23 09:00 01/23/23 07:34 Methimazole 5 Mg Tablet PO 02/15/23 08:59 5 mg DAILY VANDANA Administration Octreotide Acetate 50 mcg 01/23/23 14:00 01/23/23 13:50 Octreotide Acetate 100 Mcg/Ml Vial SQ 02/22/23 13:59 50 mcg TID VANDANA Administration Sertraline HCl 50 mg 01/16/23 09:00 01/23/23 07:35 Sertraline Hcl 50 Mg Tablet PO 02/15/23 08:59 50 mg QAM VANDANA Administration Past Medical History Medical History Acute renal failure Required several dialysis treatments during mid November to mid December 2022 admission Ambulatory dysfunction d/t MS Bile leak from gallbladder bed Cholangitis Depression History of claustrophobia Hypertension Hyperthyroidism Multiple sclerosis Pancreatitis Exercise / Class Metabolic Activity III < 4 Walking/Shop/Light housework Past Surgical History Surgical History Hx laparoscopic cholecystectomy (12/10/22) Laparoscopic cholecystectomy with extensive lysis of adhesions, please add modifier for extensive difficulty and increased length of the procedure. Past Anesthesia History No Hx of Anesthesia Complications and No Family Hx of Anesthesia Complications History of PONV No Hx of PONV and No Hx of Motion Sickness Social History Smoking Status: Former smoker tobacco type: cigarettes Do You Dip or Chew Tobacco: No Smoking End Date: 1989 Hx Alcohol Use: No Hx Substance Use: No substance use type: does not use Physical Exam Vital Signs Last Vital Signs Temp 37.0 C 01/23/23 15:44 Pulse 85 01/23/23 15:55 Resp 19 01/23/23 15:44 BP 126/83 01/23/23 15:44 Pulse Ox 93 01/23/23 15:44 O2 Del Method Nasal Cannula 01/23/23 15:44 O2 Flow Rate 2.0 01/23/23 15:44 Testing Laboratory Results 01/23/23 05:37 01/23/23 05:37 PT 13.6 Seconds (9.0-12.0) H 01/15/23 16:49 INR 1.3 (0.9-1.1) H 01/15/23 16:49 APTT 39.1 Seconds (21.0-31.0) H 01/15/23 16:49 Urine Color Yellow 01/16/23 00:15 Urine Appearance Cloudy (Clear) A 01/16/23 00:15 Urine pH 5.0 (4.5-7.5) 01/16/23 00:15 Ur Specific Arnold 1.015 (1.000-1.030) 01/16/23 00:15 Urine Protein 2+ (Negative) H 01/16/23 00:15 Urine Glucose (UA) Negative (Negative) 01/16/23 00:15 Urine Ketones Negative (Negative) 01/16/23 00:15 Urine Nitrite Negative (Negative) 01/16/23 00:15 Ur Leukocyte Esterase 2+ (Negative) H 01/16/23 00:15 Urine WBC (Auto) >30 /hpf (0-5) H 01/16/23 00:15 Urine RBC (Auto) 0-4 /hpf (0-4) 01/16/23 00:15 U Hyaline Cast (Auto) 1-5 /lpf (0-5) 01/16/23 00:15 U Epithel Cells (Auto) >30 /lpf (0-5) H 01/16/23 00:15 Urine Bacteria (Auto) Negative (Negative) 01/16/23 00:15 Blood Type O Positive 01/18/23 11:18 Antibody Screen NEGATIVE 01/18/23 11:18 01/18/23 Unknown Gram Stain - Final Abdomen, Right Upper Quadrant Aerobic and Anaerobic Culture - Preliminary Probable Enterococcus 01/16/23 10:28 Fungal Smear - Final Blood Fungal Culture - Preliminary No yeast or fungus isolated - Report 1, Additional Report to Follow. 01/15/23 16:49 Aerobic Blood Culture - Final Blood No growth in Aerobic bottle after 5 days. Anaerobic Blood Culture - Final No growth in Anaerobic bottle after 5 days. 01/15/23 16:58 Aerobic Blood Culture - Final Blood No growth in Aerobic bottle after 5 days. Anaerobic Blood Culture - Final 01/16/23 00:15 Urine Culture - Final Urine,Clean Catch No growth - less than 1,000 colonies/mL. 01/23/23 01/23/23 01/23/23 16:18 11:18 07:24 POC Glucose 116 H 151 H 137 H Electrocardiogram Date: 01/22/23 Findings: + NSR @ (@ 99) and + NSST changes Chest X-Ray Date: 01/15/23 Findings: + cardiomegaly and + pleural effusion (left layering pleural effusion w/ atelectasis vs pneumonia) Echocardiogram Date: 12/10/22 EF: 65% LV Function: normal RWMA: + none Other Findings: + diastolic dysfunction (Grade 1) Valvular Disease: + no significant valvular disease
[2023-01-24] MEDS: LACTATED RINGER'S 1,000 ML IV SCH ×5 (03:48→19:25)
[2023-01-24] MEDS: PIPERACILLIN/TAZOBACTAM 4.5 GM in DEXTROSE 5% 100 ML IV SCH ×3 (03:48→20:29)
[2023-01-24 06:38] LABS: Basophils # (auto) 0.04 K/uL (0-0.2); Basophils % (auto) 0.2 %; Eosinophils # (auto) 0.23 K/uL (0-0.50); Eosinophils % (auto) 1.1 %; Hematocrit (blood only) 26.1 % (37.0-47.0); Hemoglobin 8.3 g/dl (12.0-16.0); Immature Granulocytes # (auto) 0.44 K/uL (0.01-0.20); Immature Granulocytes % (auto) 2.2 %; Lymphocytes # (auto) 2.99 K/uL (1.2-3.4); Lymphocytes % (auto) 14.8 %; Mean Corpuscular Hemoglobin 27.9 pg (25.0-34.0); Mean Corpuscular Hgb Conc 31.8 g/dL (32.0-36.0); Mean Corpuscular Volume 87.9 fL (80.0-100.0); Mean Platelet Volume 9.1 fL (9.4-12.4); Monocytes # (auto) 1.35 K/uL (0.11-0.59); Monocytes % (auto) 6.7 %; Neutrophils # (auto) 15.13 K/uL (1.40-6.50); Nucleated RBC # (auto) 0.02 K/uL (0-0.12); Nucleated RBC % (auto) 0.1 %; Platelet Count 435 K/uL (130-400); RDW Coefficient of Variation 16.3 % (11.5-14.5); RDW Standard Deviation 51.7 fL (36.4-46.3); Red Blood Count 2.97 M/uL (4.20-5.40); White Blood Count 20.18 K/ul (4.8-10.8)
[2023-01-24 06:47] LABS: INR 1.1 (0.9-1.1); Prothrombin Time 12.4 Seconds (9.0-12.0)
[2023-01-24] MEDS: INSULIN ASPART PER UNIT CHARGE SC SCH ×4 (08:08→21:00)
[2023-01-24] MEDS: MENTHOL-ZINC OXIDE 360 APPLN/120 GM TUBE EXT SCH ×3 (08:09→20:30)
--- NOTE | 2023-01-24 08:09 | Surgery Progress Note ---
Date of Service January 24, 2023 Assessment & Plan (1) Bile leak from gallbladder bed: Plan: Plan for EUS/ERCP-possible fluid drainage and stent change by GI team Drain with minimal output and may not be functioning in the right upper quadrant at this point Possible persistent bile leak with biloma Mid upper abdominal fluid collection and perisplenic fluid collection-unknown if perisplenic fluid collection is old blood-H&H has been stable since 01/18/2023 History of acute pancreatitis with pseudocyst formation and likely some necrosis Other significant comorbidity including malnutrition, renal insufficiency, intermittent rapid A-fib, being bedbound with gluteal ulceration Open surgical intervention in this patient would not be tolerated and would likely result in mortality Admission and Anticipated Discharge Date Admission Date: January 15, 2023 Results & Data Vital Signs (Past 12 Hours) Vital Signs Temp Pulse Pulse Resp BP Pulse Ox O2 Del Method 01/24/23 07:21 36.5 C 96 H 22 145/76 H 100 Nasal Cannula 01/24/23 02:00 94 H 18 127/75 99 Nasal Cannula 01/24/23 03:20 90 01/23/23 22:00 92 H 18 141/90 H 100 Nasal Cannula O2 Flow Rate 01/24/23 07:21 2.0 01/24/23 02:00 2 01/24/23 03:20 01/23/23 22:00 2 PG Care Time/CCT Total # of Minutes Spent Total Time Spent with Patient: Total time spent is greater than 50% in coordination of care (as documented) at patient's floor/unit and/or counseling patient: Coding Level of Care Code None Diagnoses Bile leak from gallbladder bed K83.8
[2023-01-24 08:12] LABS: Albumin Globulin Ratio 0.5 (0.9-2); Albumin Level 1.9 gm/dl (3.4-5.0); BUN Creatinine Ratio 19.8 (10-20); Bilirubin,Total 0.4 mg/dl (0.2-1.0); Calcium 7.5 mg/dl (8.6-10.3); Creatinine Clr Calc Pharmacy 24.2 ml/min; Est GFR (Non-African American) 20.7 ml/min; Magnesium 2.1 mg/dl (1.7-2.4); Phosphorus 5.1 mg/dl (2.5-4.9); Potassium 3.4 mmol/L (3.5-5.1); Total Protein 5.9 gm/dl (6.0-8.3)
[2023-01-24] MEDS: SERTRALINE HCL 50 MG TABLET PO SCH (08:55)
[2023-01-24] MEDS: MAGNESIUM OXIDE 400 MG TAB PO SCH (08:55)
[2023-01-24] MEDS: AMIODARONE 200 MG TAB PO SCH (08:55)
[2023-01-24] MEDS: methIMAzole 5 MG TABLET PO SCH (08:55)
--- NOTE | 2023-01-24 09:51 | Nephrology Progress Note ---
Date of Service January 24, 2023 Assessment & Plan Admission and Anticipated Discharge Date Admission Date: January 15, 2023 Subjective Assessment & Plan (1) Acute renal failure: Plan: nonoliguric ischemic ATN Her baseline creatinine as recently as the middle of last month was actually 0.9. During mid November to mid December extended admission for cholangitis and pancr eatitis with complications, she had acute renal failure requiring several treatments of intermittent hemodialysis, with last treatment January 01. Her renal function recovered sufficiently to stop hemodialysis. Her discharge creatinine was 1.8 on January 12. Her presenting creatinine this admission on January 15 was 2 and for last 1 week 2.4 to 2.7 getting ERCP and EUS and stent exchange has edema and more ascites and pl effusion--no need of iv fluids. stop Iv fluid once the procedure is over. May actually need lasix. It is somewhat good that despite so many issue her creat has not gone up for almost a week now. Creat today down a bit to 2.2 Continue to monitor renal function with daily BMP Avoid nephrotoxins Subjective Seen for acute kidney injury. Patient has required dialysis in the previous admission. making urine but ?? amount. No shortness of breath.Legs are slightly swollen. Main complaint is abdominal pain. She is very depressed at this time . at bedside trying to children counselor her. Review of Systems Review of Systems: All other systems were reviewed and negative except as noted in HPI Physical Exam Physical Exam: General exam: Appears comfortable, no acute distress HEENT: Pupils are equal and reactive to light Neck: No JVD, neck is supple trachea is midline Respiratory system: crackles bilaterally. Gastrointestinal: Abdomen is soft, non distended, non tender, bowel sounds are present CVS: Regular rate and rhythm. No murmurs, rubs or gallops Musculoskeletal: No joint or muscle tenderness Extremities: Non tender, 1+ edema, peripheral pulses are present Neuro: Oriented, no tremors, no focal neurological deficits Skin: No rashes Results & Data Vital Signs (Past 12 Hours) Vital Signs Temp Pulse Pulse Resp BP Pulse Ox O2 Del Method 01/24/23 08:00 Nasal Cannula 01/24/23 08:00 93 H 01/24/23 07:21 36.5 C 96 H 22 145/76 H 100 Nasal Cannula 01/24/23 02:00 94 H 18 127/75 99 Nasal Cannula 01/24/23 03:20 90 01/23/23 22:00 92 H 18 141/90 H 100 Nasal Cannula O2 Flow Rate 01/24/23 08:00 3 01/24/23 08:00 01/24/23 07:21 2.0 01/24/23 02:00 2 01/24/23 03:20 01/23/23 22:00 2
--- NOTE | 2023-01-24 10:24 | Gastroenterology Progress Note ---
Date of Service January 24, 2023 Assessment & Plan (1) Bile leak from gallbladder bed: (2) Pancreatitis: (3) Sepsis: (4) Acute pancreatitis: (5) Acute renal failure: Plan 72 year old female with history of pancreatitis s/p choledocholithiasis removal via ERCP, biliary stent placement last month, cholecystectomy complicated by bile leak managed by MIMI drain in tima hepatis area admitted w/ sepsis, abdominal pain. CT initially showed decreased pancreatic fluid collection, + L pleural effusion concerning for pneumonia. Biliary stent in good position w pneumobilia. MIMI drain was manipulated by Surgery and is now draining more. Drain fluid culture growing enterococcus. She underwent ERCP on 01/19 for metal CBD stent placement for bile leak. Drain output about 250ml yesterday. Repeat CT abdomen and pelvis without contrast this morning showed pancreatitis with multiple pancreatic and peripancreatic fluid collection with suspected underlying pancreatic necrosis. There is also possible perisplenic hemorrhage, perisplenic fluid collection increased in size. Increasing perihepatic and perigastric fluid collection with mass effect on the stomach. Increasing gas within the cholecystectomy bed, nonspecific given indwelling surgical drain and CBD stent however persistent bile leak cannot be excluded. Drain output 75mL in the last 12hrs. She denies abd pain, n/v. - Monitor R abd drain outpt - IV antibx with broad spectrum coverage; sepsis management per ICU/primary teams - LR IVF support - Dobhoff feeding tube placement for nutritional support. -> pt did not tolerate placement - Keep NPO. Plan for EUS/ERCP today for biliary stent xchange and drainage of fluid collection. Admission and Anticipated Discharge Date Admission Date: January 15, 2023 Supervising Physician Co-Signing Physician Notes I performed a history and physical examination of the patient today, including specifically on physical exam - soft abdomen. I have discussed the patient's management with the advanced practitioner. Please refer to the nurse practitioner's note for the documented findings and plan of care. EUS/ERCP today POA consented. Subjective Pt denies abd pain, n/v. Review of Systems Review of Systems: All systems reviewed & are unremarkable except as noted in HPI & below Physical Exam Constitutional: WD/WN, vitals as above + ill appearing, well groomed and cooperative Eyes: PERRL, conjunctivae normal, anicteric sclerae ENMT: external ear and nose normal, oropharynx normal Respiratory: Normal respiratory effort, no distress noted. Diminished at bases Cardiovascular: RRR, no murmur, no edema Gastrointestinal (Abdomen): Abdomen soft, bowel sounds hypoactive, generalized tenderness on palpation. Right-sided abdominal drain with scant amount of greenish fluid in ostomy bag. Skin: no rashes, warm and dry no jaundice Neurologic: Motor/Sensory: no asterixis Psychiatric: Affect: + depressed affect Awake, alert, oriented x3. Lymphatic: no lymphedema Results & Data Vital Signs (Past 12 Hours) Vital Signs Temp Pulse Pulse Resp BP Pulse Ox O2 Del Method 01/24/23 08:00 Nasal Cannula 01/24/23 08:00 93 H 01/24/23 07:21 36.5 C 96 H 22 145/76 H 100 Nasal Cannula 01/24/23 02:00 94 H 18 127/75 99 Nasal Cannula 01/24/23 03:20 90 O2 Flow Rate 01/24/23 08:00 3 01/24/23 08:00 01/24/23 07:21 2.0 01/24/23 02:00 2 01/24/23 03:20 (3) Sepsis Sepsis acute organ dysfunction status: unspecified Sepsis type: sepsis due to unspecified organism Qualified Code(s): A41.9 - Sepsis, unspecified organism (4) Acute pancreatitis Acute pancreatitis complication: unspecified Pancreatitis type: unspecified pancreatitis type Qualified Code(s): K85.90 - Acute pancreatitis without necrosis or infection, unspecified
[2023-01-24] MEDS ORDERED: INDOMETHACIN 50 MG SUPP PR SCH (11:00)
[2023-01-24] MEDS ORDERED: LIDOCAINE 2% MPF LOCAL 5 ML VIAL ONE (14:34)
[2023-01-24] MEDS ORDERED: ROCURONIUM BROMIDE 10 MG/ML 5 ML VIAL IV ONE (14:34)
[2023-01-24] MEDS ORDERED: DEXAMETHASONE SOD INJ 4 MG/ML VIAL ONE (14:34)
[2023-01-24] MEDS ORDERED: fentaNYL citrate PF 100 MCG/2 ML VIAL ONE (14:34)
[2023-01-24] MEDS ORDERED: PROPOFOL IV EMULSION 10 MG/ML 20 ML VIAL IV ONE (14:34)
[2023-01-24] MEDS ORDERED: ONDANSETRON INJ 2 MG/ML 2 ML VIAL IV PRN (15:17)
[2023-01-24] MEDS ORDERED: MIDAZOLAM HCL 1 MG/ML 2ML VIAL ONE (15:17)
[2023-01-24] MEDS ORDERED: fentaNYL citrate PF 100 MCG/2 ML VIAL IV PRN (15:17)
[2023-01-24] MEDS ORDERED: ePHEDrine sulfate 50 MG/ML AMP IV PRN (15:17)
[2023-01-24] MEDS ORDERED: ATROPINE SULFATE 0.1 MG/ML 10ML SYR IV PRN (15:17)
[2023-01-24] MEDS ORDERED: PHENYLEPHRINE HCL 10 MG/ML VIAL ONE (16:06)
[2023-01-24] MEDS ORDERED: ePHEDrine sulfate 50 MG/ML AMP ONE (16:06)
[2023-01-24] MEDS ORDERED: ONDANSETRON INJ 2 MG/ML 2 ML VIAL ONE (16:06)
--- NOTE | 2023-01-24 16:42 | Operative Report ---
Post Operative Report Pre & Post Diagnosis Operation Date: 01/24/23 07:00 Pre-Op Diagnosis: Severe Sepsis, Bile Leak I identified the patient and participated in the time-out.: Yes Procedure Operation Date: 01/24/23 07:00 <No data on this case meets the specified criteria> Surgeon Rachel Mcneill MD Ion Implant Machine Operator none Estimated Blood Loss 0 Findings See Below (Bile leak, Biliary stent exchanged) Specimens None Description of Procedure ERCP/EUS I attest to the content of the Intraoperative Record and any orders documented therein. Any exceptions are noted below.
[2023-01-24] MEDS ORDERED: SUGAMMADEX SODIUM 200 MG/2 ML VIAL IV ONE (16:44)
--- NOTE | 2023-01-24 17:08 | GI REPORT ---
Patient Name: Blossom Mayer Procedure Date: 01/24/2023 3:23 PM Date of : 1950 Admit Type: Inpatient Age: 72 Gender: Female Attending MD: Rachel Mcneill MD, Procedure: Upper EUS Providers: Rachel Mcneill MD Referring MD: Gerardo Angulo Indications: Abnormal abdominal/pelvic CT scan Medicines: General Anesthesia Complications: No immediate complications. Estimated Blood Loss: Estimated blood loss: none. Procedure: Pre-Anesthesia Assessment: - Prior to the procedure, a History and Physical was performed, and patient medications, allergies and sensitivities were reviewed. The patient's tolerance of previous anesthesia was reviewed. - The alternatives, risks and benefits of the procedure were discussed at length with the patient's partner. The patient's proxy verbalized understanding of the risks as well as the alternatives and wished to proceed with the procedure. - Patient identification and proposed procedure were verified prior to the procedure by the physician and the nurse. The procedure was verified in the procedure room. - Pre-procedure physical examination revealed no contraindications to sedation. After obtaining informed consent, the endoscope was passed under direct vision. Throughout the procedure, the patient's blood pressure, pulse, and oxygen saturations were monitored continuously. The scope was introduced through the mouth, and advanced to the second part of duodenum. The upper EUS was accomplished without difficulty. The patient tolerated the procedure well. Findings: ENDOSONOGRAPHIC FINDING: : One stent was visualized endosonographically in the common bile duct. Extension of the stent was noted in the common bile duct. A large amount of fluid, visualized as a lobulated anechoic structure, was found in the peritoneal cavity. No mature collection seen. Impression: - Ascites was found on endosonographic examination of the peritoneal cavity. No mature, walled off, drainale fluid collection seen. Recommendation: - Perform an ERCP today. Rachel Mcneill MD 01/24/2023 5:07:53 PM This report has been signed electronically. Note Initiated On: 01/24/2023 3:23 PM Number of Addenda: 0 I attest to the content of the Intraoperative Record and orders documented therein, exceptions below {[id number]}
--- NOTE | 2023-01-24 17:14 | GI REPORT ---
Patient Name: Blossom Mayer Procedure Date: 01/24/2023 3:22 PM Date of : 1950 Admit Type: Inpatient Age: 72 Gender: Female Attending MD: Rachel Mcneill MD, Procedure: ERCP Providers: Rachel Mcneill MD Referring MD: Gerardo Angulo Indications: Treatment of bile leak, Stent change Medicines: General Anesthesia Complications: No immediate complications. Estimated Blood Loss: Estimated blood loss: none. Procedure: Pre-Anesthesia Assessment: - Prior to the procedure, a History and Physical was performed, and patient medications, allergies and sensitivities were reviewed. The patient's tolerance of previous anesthesia was reviewed. - The risks and benefits of the procedure and the sedation options and risks were discussed with the patient. All questions were answered and informed consent was obtained. - Patient identification and proposed procedure were verified prior to the procedure by the physician and the nurse. The procedure was verified in the procedure room. - Pre-procedure physical examination revealed no contraindications to sedation. After obtaining informed consent, the scope was passed under direct vision. Throughout the procedure, the patient's blood pressure, pulse, and oxygen saturations were monitored continuously. The Duodenoscope was introduced through the mouth, and advanced to the duodenum and used to inject contrast into the bile duct. The ERCP was accomplished without difficulty. The patient tolerated the procedure well. Findings: A biliary stent was visible on the preschool teacher assistant film. The esophagus was successfully intubated under direct vision. The scope was advanced to a normal major papilla in the descending duodenum without detailed examination of the pharynx, larynx and associated structures, and upper GI tract. The upper GI tract was grossly normal. One stent was removed from the common bile duct using a Raptor grasping device. A 0.025 inch x 270 cm angled Visiglide wire was passed into the biliary tree. The 8.5 mm balloon was passed over the guidewire and the bile duct was then deeply cannulated. Contrast was injected. I personally interpreted the bile duct images. Ductal flow of contrast was adequate. Image quality was adequate. Contrast extended to the main bile duct. Opacification of the entire biliary tree was successful. The maximum diameter of the ducts was 10 mm. Extravasation of contrast originating from the gallbladder was observed. The cystic duct was cannulated and injected with Fibrin glue. The biliary tree was swept with an 11.5 mm balloon starting at the bifurcation. Sludge was swept from the duct. One 10 mm by 10 cm covered metal biliary stent was placed into the common bile duct. Bile flowed through the stent. The stent was in good position. The proximal side was above the cystic duct take off. Contrast injected and confirmed no further leakage, Two 7 Fr by 10 cm plastic biliary stents with a single external pigtail and a single internal pigtail were placed into the common bile duct and the left hepatic duct. Bile flowed through the stents. The stents were in good position. A biliary pre-cut sphincterotomy was made with a monofilament needle knife over a biliary stent using ERBE electrocautery. There was no post-sphincterotomy bleeding. Impression: - A bile leak was found from the remnant gallbladder. - Biliary sphincterotomy was extended. - Fibrin glue injected in the cystic duct. - The stent was exchanged to a longer covered metal biliary stent. This successfully occluded the cystic duct take off. - Two plastic biliary stents were placed into the common bile duct and left hepatic duct. Recommendation: - Return patient to hospital dent for ongoing care. - Repeat ERCP in 3 months to remove stent. - Monitor drain output. Rachel Mcneill MD 01/24/2023 5:13:59 PM This report has been signed electronically. Note Initiated On: 01/24/2023 3:22 PM Number of Addenda: 0 I attest to the content of the Intraoperative Record and orders documented therein, exceptions below {[id number]}
--- NOTE | 2023-01-24 17:23 | Anesthesiology Progress Note ---
Date of Service January 24, 2023 Anesthesia Post Procedure Vital Signs Vital Signs: Temp Pulse Pulse Resp BP Pulse Ox O2 Del Method 01/24/23 17:20 97.2 F L 81 19 117/77 97 Nasal Cannula 01/24/23 17:10 97.2 F L 76 18 112/65 96 Nasal Cannula 01/24/23 17:02 97.2 F L 81 21 105/65 95 Nasal Cannula 01/24/23 15:15 88 01/24/23 15:02 97.5 F L 87 18 144/88 H 99 Nasal Cannula, Ambu-Bag 01/24/23 11:11 97.7 F 98 H 22 142/77 H 100 Nasal Cannula 01/24/23 08:00 Nasal Cannula 01/24/23 08:00 93 H 01/24/23 07:21 97.7 F 96 H 22 145/76 H 100 Nasal Cannula 01/24/23 02:00 94 H 18 127/75 99 Nasal Cannula 01/24/23 03:20 90 01/23/23 22:00 92 H 18 141/90 H 100 Nasal Cannula 01/23/23 20:00 Nasal Cannula 01/23/23 19:17 88 18 100/68 100 Nasal Cannula O2 Flow Rate 01/24/23 17:20 3 01/24/23 17:10 4 01/24/23 17:02 4 01/24/23 15:15 01/24/23 15:02 2.5 01/24/23 11:11 2.0 01/24/23 08:00 3 01/24/23 08:00 01/24/23 07:21 2.0 01/24/23 02:00 2 01/24/23 03:20 01/23/23 22:00 2 01/23/23 20:00 2 01/23/23 19:17 2 Pain Intensity Abdomen: Pain Intensity: 0 Transfer of Care Handoff Completed per policy Notes Mental Status: alert / awake / arousable and participated in evaluation Patient Amnestic to Procedure: Yes Nausea / Vomiting: adequately controlled Pain: adequately controlled Airway Patency, RR, SpO2: stable & adequate BP & HR: stable & adequate Hydration State: stable & adequate Anesthetic Complications: no major complications apparent and Pt Satisfied with anesthetic care
--- NOTE | 2023-01-24 17:54 | Hospitalist Progress Note ---
Date of Service January 24, 2023 Assessment & Plan (1) Septic shock: Plan: Patient was recently hospitalized for about a month during which she was managed for acute pancreatitis, acute cholangitis, septic shock, acute renal failure requiring dialysis briefly, paroxysmal A-fib. Underwent ERCP on 12/10 with removal of stones from the bile duct. Underwent lap adele with extensive lysis of adhesions on 12/10 by general surgery. Was discharged to group home facility and represented with abdominal and back pain. Labs on presentation showed worsening leukocytosis, worsening renal function and has been hypotensive. Being managed for septic shock.Was on Levophed which was weaned off around 5pm today (01/17). Sources of sepsis include possible intra-abdominal infection considering recent severe pancreatitis, surgical subhepatic drain in situ, recent UTI. Acute on chronic pancreatitis Continue on Zosyn for now after stent exchange performed by GI Initial ID consultation was done on 01/18/2023 and repeat follow-up will be done on 01/22/2023 Has pleural effusion (left) on CT abd/pelvis. Not in resp distress but she does have a slight cough. Appreciate ID input and recommendation to continue intravenous Zosyn for now 01/21/2023 Complaining of more abdominal pain though the white count has been improving CT of the abdomen and pelvis showed severe acute pancreatitis as on 01/15/2023 and a new perisplenic hemorrhage We will continue with current pain medications and hold Eliquis Hemoglobin did not drop and the pain is controlled Discussed with the surgeon, GI and IR facility over [facility] and plan is to repeat the scan tomorrow any [facility] fluid collection/hemorrhage is increasing the patient will be transferred to tertiary care center for definitive drainage Discussed with the family members about this measure Repeat scan today showed: Increasing fluid collection as below 1. Findings consistent with severe acute pancreatitis. 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 2. Perisplenic hemorrhage, stable to slightly increased since prior CT. The perisplenic fluid collection has increased in size since prior CT. Irregularity of the spleen consistent with splenic injury. 3. Increase in size of perihepatic and perigastric fluid collections with mass effect upon the stomach. The perihepatic fluid collection could be related to a bile leak or acute pancreatitis. 4. Increase in gas within the cholecystectomy bed. This is nonspecific given indwelling surgical drain and common bile duct stent however a persistent biliary leak cannot be excluded. 5. No significant change in a moderate left pleural effusion with left lower lobe atelectasis. 6. Slight increase in small to moderate pelvic ascites. Discussed with the general surgery, ID specialist and informed her about ERCP/EUS tomorrow IV fluid was discontinued after EUS We will continue with oral supplement Perisplenic fluid collection with possible bleeding from the spleen We will monitor May need to have IR drainage of the fluid Will evaluate further and await recommendation from the specialist (2) Hyperthyroidism: Plan: Patient on methimazole which is known to have a side effect of pancreatitis. However, will cont for now as this pancreatitis is improved clinically and there are more likely causes/contributing factors. (3) Pleural effusion, left: Plan: hopeful this will improve after stent exchange and with time and movement. If no improvement, may need to consider thoracentesis. Repeat CT showed moderate left pleural effusion as before (4) Acute renal failure: Plan: Worsening renal function in setting of septic shock, around 2.6. Recent temporary dialysis last month which she is off of now. Nephro following. Creat appears stable although still worse than her baseline. Creatinine is little bit better today at 2.50 and potassium was 3.1 which was replaced Renal failure has been getting better with IV fluid at the same time getting edema IV fluid will be stopped following ERCP today (5) Acute pancreatitis: Plan: Intra-abdominal fluid collection as below: CT abdomen and pelvis without contrast on admission noted redemonstration of severe acute pancreatitis similar to 12/31/2022, CBD stent in satisfactory position, unchanged position of right subhepatic percutaneous drainage, bilateral nephrolithiasis without ureteral calculi or hydronephrosis, moderate left pleural effusion increased in size with left basilar consolidation suggestive of atelectasis, increased amount of abdominal left upper quadrant ascites Repeat CT of the abdomen pelvis showed: 01/21/2023 1. Severe acute pancreatitis is similar appearance to the 01/15/2023 exam with persistent acute peripancreatic fluid collections. 2. Prior cholecystectomy with decreased size of the air and fluid-filled structure within the tima hepatis. 3. Common bile duct stent in place with persistent pneumobilia. 4. Unchanged positioning of the right subhepatic percutaneous drainage catheter. 5. Increased amount of abdominopelvic ascites, notably surrounding the spleen with new perisplenic hemorrhage. 6. Bilateral nephrolithiasis. 7. Moderate left pleural effusion with left basilar consolidation. 8. Additional findings as above. We will continue with current antibiotic and pain medications Repeat CT scan of the abdomen pelvis showed increasing fluid collection around pancreas and also perisplenic area Discussed with the daughter and the for possible transfer to tertiary care center to perform IR procedures down the line Condition has not changed as per the Plan s/p ERCP with bile duct stent exchange. Bile leak was noted intraoperatively. New transcutaneous drain in place draining into colostomy bag. She is recovering well, slightly lethargic. Continues with therapy with plans for rehab. Nutritional status She has not been eating or drinking enough Discussed with the GI and plan to put coresafe and start tube feeding Other significant medical condition as below Paroxysmal atrial fibrillation-rate is controlled and has been on Eliquis Depression-seems to be stable and Multiple sclerosis-she has been moving all of her extremities though has weakness in the legs. Has been bedbound for the last 1 month DVT ppx- apixaban -on hold due to splenic hemorrhage as above Full code Dispo-awaiting Admission and Anticipated Discharge Date Admission Date: January 15, 2023 Subjective 01/21/2023 The patient was seen and examined in telemetry unit in presence of the She has been complaining of more abdominal pain today without any nausea and or vomiting Denies any fever and or chills Denies any shortness of breath 01/22/2023 The patient was seen and examined in telemetry unit in presence of the She remains weak and lethargic but does not have any more abdominal pain at rest Her vitals remained stable and her hemoglobin has not changed 01/23/2023 The patient was seen and examined in telemetry unit in presence of the She remains stable and does not complain of any increasing pain She could not tolerate coresef tube yesterday Minimal intake orally 01/24/2023 Patient was seen and examined in telemetry unit in presence of the She will be going for ERCP/EUS this afternoon Remains stable and denies any significant pain Review of Systems Review of Systems: All systems reviewed and are unremarkable except as noted below Physical Exam Physical Exam: Lying in bed without any acute distress but remains very weak and lethargic Constitutional: well developed, well nourished, + ill appearing and + obese Eyes: PERRL, conjunctivae normal, anicteric sclerae ENMT: external ear and nose normal, oropharynx normal Neck: trachea midline, no thyromegaly Respiratory: no respiratory distress Auscultation: + diminished lung sounds and + crackles (Minimal crackles left base) Cardiovascular: Rate/Rhythm: regular rate, regular rhythm and + tachycardic Heart Sounds: normal S1 and normal S2; no murmur Extremities: + edema (Trace edema bilaterally) Gastrointestinal (Abdomen): Inspection/Auscultation: + abdomen distended and normal bowel sounds Percussion/Palpation: + abdomen tender and abdomen soft Neurologic: normal touch/pain/proprioception and moves all extremities; no focal motor deficits Psychiatric: A+Ox3, euthymic affect Lymphatic: no cervical or axillary lymphadenopathy Results & Data Results & Data Vital Signs (Past 12 Hours) Vital Signs Temp Pulse Pulse Resp BP Pulse Ox O2 Del Method 01/24/23 17:25 36.2 C L 80 16 125/82 94 Room Air 01/24/23 17:20 36.2 C L 81 19 117/77 97 Nasal Cannula 01/24/23 17:10 36.2 C L 76 18 112/65 96 Nasal Cannula 01/24/23 17:02 36.2 C L 81 21 105/65 95 Nasal Cannula 01/24/23 15:15 88 01/24/23 15:02 36.4 C L 87 18 144/88 H 99 Nasal Cannula, Ambu-Bag 01/24/23 11:11 36.5 C 98 H 22 142/77 H 100 Nasal Cannula 01/24/23 08:00 Nasal Cannula 01/24/23 08:00 93 H 01/24/23 07:21 36.5 C 96 H 22 145/76 H 100 Nasal Cannula O2 Flow Rate 01/24/23 17:25 01/24/23 17:20 3 01/24/23 17:10 4 01/24/23 17:02 4 01/24/23 15:15 01/24/23 15:02 2.5 01/24/23 11:11 2.0 01/24/23 08:00 3 01/24/23 08:00 01/24/23 07:21 2.0 Laboratory Results Short CBC 01/24/23 Range/Units 05:44 WBC 20.18 H (4.8-10.8) K/ul Hgb 8.3 L (12.0-16.0) g/dl Hct 26.1 L (37.0-47.0) % Plt Count 435 H (130-400) K/uL BMP 01/24/23 05:44 Sodium 142 Potassium 3.4 L Chloride 110 H Carbon Dioxide 16 L BUN 45 H Creatinine 2.27 H Glucose 169 H Calcium 7.5 L Liver Function 01/24/23 Range/Units 05:44 Total Bilirubin 0.4 (0.2-1.0) mg/dl AST 16 (13-39) U/L ALT 9 (7-52) U/L Alkaline Phosphatase 89 (34-104) U/L Albumin 1.9 L (3.4-5.0) gm/dl Medications Administered Current Inpatient Medications Acetaminophen (Acetaminophen 325 Mg Tab) 650 mg PO Q6 PRN PRN Reason: Fever Or MILD Pain Stop: 02/14/23 23:34 Last Admin: 01/21/23 08:05 Dose: 650 mg Amiodarone HCl (Amiodarone 200 Mg Tab) 200 mg PO QAM [facility] Stop: 02/22/23 06:59 Last Admin: 01/24/23 08:55 Dose: 200 mg Apixaban (Apixaban 5 Mg Tablet) 5 mg PO BID [facility] Stop: 02/15/23 08:59 Last Admin: 01/21/23 08:05 Dose: 5 mg Atropine Sulfate (Atropine Sulfate 0.1 Mg/Ml 10ml Syr) 0.5 mg IV Q1M PRN PRN Reason: PACU Use-HR<40 &/or Bradycardi Stop: 01/24/23 23:17 Calamine/Phenol (Menthol-Zinc Oxide 360 Appln/120 Gm Tube) 1 appln EXT TID [facility] Stop: 02/15/23 08:59 Last Admin: 01/24/23 13:06 Dose: 1 appln Dextrose (Dextrose 50% 50 Ml Syringe) 25 - 50 ml IV UD PRN; Protocol PRN Reason: Hypoglycemia Protocol Stop: 02/15/23 08:04 Ephedrine Sulfate (Ephedrine Sulfate 50 Mg/Ml Amp) 5 mg IV Q5M PRN PRN Reason: PACU Use Only-SBP<90 mmHg Stop: 01/24/23 23:17 Fentanyl Citrate (Fentanyl Citrate Pf 100 Mcg/2 Ml Vial) 25 mcg IV Q5M PRN PRN Reason: PACU Use Only-Pain Stop: 01/24/23 23:17 Glucagon (Glucagon For Inj 1 Mg Vial) 1 mg SQ UD PRN; Protocol PRN Reason: Hypoglycemia Protocol Stop: 02/15/23 08:04 Glucose (Glucose 40% Gel 15 Gm Tube) 15 - 30 gm PO UD PRN; Protocol PRN Reason: Hypoglycemia Protocol Stop: 02/15/23 08:04 Glucose (Glucose 10 Tab/Tube) 4 - 8 tab PO UD PRN; Protocol PRN Reason: Hypoglycemia Treatment Stop: 02/15/23 08:04 Piperacillin Sod/Tazobactam (Sod 4.5 gm/ Dextrose) 120 mls @ 30 mls/hr IV Q8H [facility]; Protocol Stop: 01/26/23 03:59 Last Infusion: 01/24/23 15:28 Dose: Infused Insulin Aspart (Insulin Aspart Per Unit Charge) 0 units SC ACHS [facility] Stop: 02/15/23 08:14 Last Admin: 01/24/23 18:11 Dose: Not Given Magnesium Oxide (Magnesium Oxide 400 Mg Tab) [facility] [place] Stop: 02/15/23 08:59 Last Admin: 01/24/23 08:55 Dose: 400 mg Methimazole (Methimazole 5 Mg Tablet) 5 mg PO DAILY [facility] Stop: 02/15/23 08:59 Last Admin: 01/24/23 08:55 Dose: 5 mg Miscellaneous (Carbohydrates For Hypoglycemia ) 15 - 30 gm PO UD PRN PRN Reason: Hypoglycemia Protocol Stop: 02/15/23 08:04 Octreotide Acetate (Octreotide Acetate 100 Mcg/Ml Vial) 50 mcg SQ TID [facility] Stop: 02/22/23 13:59 Last Admin: 01/23/23 20:47 Dose: 50 mcg Ondansetron HCl (Ondansetron Inj 2 Mg/Ml 2 Ml Vial) 4 mg IV ONCE PRN PRN Reason: PACU Use Only-Nausea/Vomiting Stop: 01/24/23 23:17 Sertraline HCl (Sertraline Hcl 50 Mg Tablet) 50 mg PO QAM [facility] Stop: 02/15/23 08:59 Last Admin: 01/24/23 08:55 Dose: 50 mg (5) Acute pancreatitis Acute pancreatitis complication: unspecified Pancreatitis type: unspecified pancreatitis type Qualified Code(s): K85.90 - Acute pancreatitis without necrosis or infection, unspecified
[2023-01-24] MEDS: OCTREOTIDE ACETATE 100 MCG/ML VIAL SQ SCH (21:01)
[2023-01-24 21:26] LABS: Bilirubin,Total 0.4 mg/dl (0.2-1.0); Calcium 7.5 mg/dl (8.6-10.3); Magnesium 1.9 mg/dl (1.7-2.4); Potassium 3.3 mmol/L (3.5-5.1)
[2023-01-24 21:32] LABS: Albumin Globulin Ratio 0.5 (0.9-2); BUN Creatinine Ratio 18.9 (10-20); Creatinine Clr Calc Pharmacy 24.8 ml/min; Est GFR (African American) 24.7 ml/min; Est GFR (Non-African American) 21.3 ml/min; Globulin 4.4 gm/dl (2.5-4.0); Phosphorus 5.1 mg/dl (2.5-4.9); Total Protein 6.4 gm/dl (6.0-8.3)
[2023-01-24 22:03] LABS: Basophils # (auto) 0.05 K/uL (0-0.2); Basophils % (auto) 0.2 %; Eosinophils # (auto) 0.04 K/uL (0-0.50); Eosinophils % (auto) 0.2 %; Hematocrit (blood only) 27.7 % (37.0-47.0); Hemoglobin 8.9 g/dl (12.0-16.0); Immature Granulocytes # (auto) 0.31 K/uL (0.01-0.20); Immature Granulocytes % (auto) 1.5 %; Lymphocytes # (auto) 2.09 K/uL (1.2-3.4); Lymphocytes % (auto) 10.1 %; Mean Corpuscular Hemoglobin 28.1 pg (25.0-34.0); Mean Corpuscular Hgb Conc 32.1 g/dL (32.0-36.0); Mean Corpuscular Volume 87.4 fL (80.0-100.0); Mean Platelet Volume 9.1 fL (9.4-12.4); Monocytes # (auto) 0.54 K/uL (0.11-0.59); Monocytes % (auto) 2.6 %; Neutrophils # (auto) 17.62 K/uL (1.40-6.50); Neutrophils % (auto) 85.4 %; Nucleated RBC # (auto) 0.03 K/uL (0-0.12); Nucleated RBC % (auto) 0.1 %; Platelet Count 430 K/uL (130-400); RDW Coefficient of Variation 15.9 % (11.5-14.5); Red Blood Count 3.17 M/uL (4.20-5.40); White Blood Count 20.65 K/ul (4.8-10.8)
[2023-01-24] MEDS: POTASSIUM CHLORIDE / WTR 10 MEQ/100 ML PLCT IV SCH ×2 (22:36→23:38)
[2023-01-25] MEDS ORDERED: ACETAMINOPHEN 1,000 MG/100 ML VIAL IV STA (04:17)
[2023-01-25] MEDS: PIPERACILLIN/TAZOBACTAM 4.5 GM in DEXTROSE 5% 100 ML IV SCH ×3 (04:21→21:41)
--- NOTE | 2023-01-25 06:02 | Surgery Progress Note ---
Date of Service January 25, 2023 Assessment & Plan (1) Bile leak from gallbladder bed: Plan: Status post EUS/ERCP-stent was exchanged to cover the cystic duct site, also fibrin glue placed No evidence of postprocedural leakage, did not note a fluid collection to be drained Drain output has been minimal to none overnight We will likely need to reimage at some point to assess worsening fluid collection Have discussed possible need for IR aspiration/drainage Patient's mobility is very poor Admission and Anticipated Discharge Date Admission Date: January 15, 2023 Results & Data Vital Signs (Past 12 Hours) Vital Signs Temp Pulse Pulse Resp BP Pulse Ox O2 Del Method 01/25/23 05:45 37.1 C 01/25/23 03:23 37.0 C 113 H 25 H 112/59 L 98 Room Air 01/25/23 01:21 36.4 C L 01/25/23 00:24 36.6 C 01/24/23 23:32 36.3 C L 01/24/23 22:28 35.9 C L 01/25/23 00:42 86 01/24/23 22:26 91 H 16 122/69 97 Nasal Cannula 01/24/23 19:55 Nasal Cannula 01/24/23 20:14 34.6 C L 01/24/23 21:34 114/88 01/24/23 21:11 35.6 C L 01/24/23 20:13 34.6 C L 01/24/23 19:19 35.0 C L 81 18 127/81 100 Nasal Cannula 01/24/23 18:00 36.7 C 81 20 122/74 96 Nasal Cannula O2 Flow Rate 01/25/23 05:45 01/25/23 03:23 01/25/23 01:21 01/25/23 00:24 01/24/23 23:32 01/24/23 22:28 01/25/23 00:42 01/24/23 22:26 2 01/24/23 19:55 2 01/24/23 20:14 01/24/23 21:34 01/24/23 21:11 01/24/23 20:13 01/24/23 19:19 2 01/24/23 18:00 PG Care Time/CCT Total # of Minutes Spent Total Time Spent with Patient: Total time spent is greater than 50% in coordination of care (as documented) at patient's floor/unit and/or counseling patient: Coding Level of Care Code None Diagnoses Bile leak from gallbladder bed K83.8
[2023-01-25 06:55] LABS: Hemoglobin 8.4 g/dl (12.0-16.0); Mean Corpuscular Hemoglobin 27.9 pg (25.0-34.0); Mean Corpuscular Hgb Conc 32.3 g/dL (32.0-36.0); Mean Corpuscular Volume 86.4 fL (80.0-100.0); Mean Platelet Volume 9.1 fL (9.4-12.4); Nucleated RBC # (auto) 0.03 K/uL (0-0.12); Nucleated RBC % (auto) 0.1 %; Platelet Count 439 K/uL (130-400); RDW Coefficient of Variation 16.5 % (11.5-14.5); Red Blood Count 3.01 M/uL (4.20-5.40); White Blood Count 21.37 K/ul (4.8-10.8)
[2023-01-25 07:11] LABS: Albumin Globulin Ratio 0.5 (0.9-2); Albumin Level 1.8 gm/dl (3.4-5.0); BUN Creatinine Ratio 20.4 (10-20); Bilirubin,Total 0.4 mg/dl (0.2-1.0); Calcium 7.3 mg/dl (8.6-10.3); Creatinine Clr Calc Pharmacy 24.9 ml/min; Est GFR (African American) 24.8 ml/min; Est GFR (Non-African American) 21.4 ml/min; Globulin 3.9 gm/dl (2.5-4.0); Potassium 3.6 mmol/L (3.5-5.1); Total Protein 5.7 gm/dl (6.0-8.3)
[2023-01-25 07:31] LABS: Basophils # (auto) 0.05 K/uL (0-0.2); Basophils % (auto) 0.2 %; Eosinophils # (auto) 0.01 K/uL (0-0.50); Immature Granulocytes # (auto) 0.16 K/uL (0.01-0.20); Immature Granulocytes % (auto) 0.7 %; Lymphocytes # (auto) 2.78 K/uL (1.2-3.4); Monocytes # (auto) 0.83 K/uL (0.11-0.59); Monocytes % (auto) 3.9 %; Neutrophils # (auto) 17.54 K/uL (1.40-6.50); Neutrophils % (auto) 82.2 %; Polychromasia 1+; Spherocytes 1+
--- NOTE | 2023-01-25 08:35 | Fluoroscopy Report ---
[place] ERCP biliary ductal CLINICAL HISTORY: ERCP IN OR. Acute pancreatitis. COMPARISON STUDY: Abdomen and pelvis CT 01/23/2023. FLUOROSCOPY TIME: 7 minutes and 35 seconds. FLUOROSCOPY IMAGES: 15 Ka,r: 155.5 mGy FINDINGS: [employer] images demonstrate a right upper quadrant surgical drain and an indwelling common mary anne e duct stent. The ampulla was cannulated and contrast was injected into the common bile duct. A ballo on sweep was performed. This is followed by placement of 2 additional common bile duct stents. Multip le filling defects are suggested in the common bile duct stent which could represent gas bubbles. Con trast is seen within the gallbladder fossa status post cholecystectomy consistent with a persistent b ile duct leak. IMPRESSION: 1. Fluoroscopic assistance as described above. 2. Persistent cystic duct leak again noted. ACT 112: Negative or not required by law. Electronically signed by: Dannie Chowdhury M.D. 01/25/2023 8:33 AM
[2023-01-25] MEDS: INSULIN ASPART PER UNIT CHARGE SC SCH ×4 (08:48→19:58)
[2023-01-25] MEDS: AMIODARONE 200 MG TAB PO SCH (08:53)
[2023-01-25] MEDS: MAGNESIUM OXIDE 400 MG TAB PO SCH (08:54)
[2023-01-25] MEDS: methIMAzole 5 MG TABLET PO SCH (08:55)
[2023-01-25] MEDS: SERTRALINE HCL 50 MG TABLET PO SCH (08:55)
[2023-01-25] MEDS ORDERED: DAPTOmycin 425 MG in SYRINGE 0 ML IV SCH (09:00)
[2023-01-25] MEDS: OCTREOTIDE ACETATE 100 MCG/ML VIAL SQ SCH ×3 (09:07→21:46)
[2023-01-25] MEDS: MENTHOL-ZINC OXIDE 360 APPLN/120 GM TUBE EXT SCH ×3 (09:15→21:48)
--- NOTE | 2023-01-25 09:38 | Infectious Disease Progress Nt ---
Date of Service January 25, 2023 Assessment & Plan (1) Pancreatitis: (2) Bile leak from gallbladder bed: Plan 72 yo F with history of obesity, HTN, anxiety, chronic neurogenic bladder, osteoporosis, MS, recent admission (12/09 - 01/12) for acute gallstone pancreatitis s/p ERCP with stent placement and subtotal laparoscopic cholecystectomy c/b bile leak with MIMI drain placement and Pseudomonas/Enterococcus UTI discharged on levofloxacin, who presented on 01/15 with back/abdominal pain, hypotension requiring pressors, leukocytosis to 34, found on CT to have continued pancreatitis and peripancreatic fluid collections. CT A/P (without contrast) also showed upper abdominal ascites, new 3.4 cm fluid attenuating structure within LUQ, possibly loculated ascites vs acute peripancreatic fluid collection, postop changes of cholecystectomy with air and fluid-filled structure again noted in tima hepatis, possibly representing residual gallbladder vs postop fluid collection, unchanged positioning of R subhepatic percutaneous drainage catheter. Pt was started on Zosyn. The MIMI drain may not have been draining well initially, but after manipulation by Surgery drained more more. Suspect her initial sepsis was secondary to undrained peripancreatic collections. 01/17: weaned off pressors. 01/18: HIDA scan showed bile leak and possible CBD obstruction 01/19: ERCP showed bile leak, and biliary duct stent exchanged. 01/21: pt with increased abd pain. A repeat CT A/P without contrast showed similar severe acute pancreatitis, mildly increased ascites, increased fluid surrounding spleen with new splenic hemorrhage, increased size of peripancreatic fluid collections: adjacent to pancreatic head 2.5 cm --> 3.6 cm, and LUQ 3.5 cm --> 3.9 cm. 01/23: repeat CT A/P wo contrast showed severe pancreatitis with suspected underlying necrosis. Multiple pancreatic and peripancreatic fluid collections. Increased loculated fluid collection along lateral liver measuring 9.1 x 7.5 cm. Increased loculated fluid along stomach with mass effect. Increased perisplenic fluid collection/hemorrhage. 01/24: ERCP showed bile leak. Fibrin glue injected in cystic duct. Stent exchanged to longer covered metal stent, and two plastic biliary stents placed. 01/25: Hypotension in AM, but resolved within a couple hours. Empiric daptomycin added. Problems: #Peripancreatic fluid collections #Acute gallstone pancreatitis s/p ERCP with stent placement, subtotal lap adele c/b bile leak with IMMI drain placement (12/10/22) with persistent bile leak s/p ERCP and stent placement 01/19, 01/24 #Splenic hemorrhage #SAMMY: required temporary HD last admission #Decubitus ulcers #Atelectasis vs PNA Abx: Daptomycin 01/25 - Zosyn 01/15 - present Vanc 01/15 - 01/17 Recommendations: -Follow-up MIMI drainage culture: probable Enterococcus species, awaiting identification and susceptibilities. Enterococcus is often found in polymicrobial intra-abdominal infections, with questionable pathogenicity vs colonization. -Added daptomycin today in setting of hypotension in case of VRE -Continue pip-tazo -MIMI drain having minimal output? Can assess placement with repeat imaging. Also not sure that this MIMI drain is addressing the other intra-abdominal collections in other locations. -If continued fluid collections on abdominal imaging without reduction in size, would consider IR drainage. If IR drainage performed, would send fluid for bacterial and fungal cultures. Discussed with primary team. Will continue to follow Admission and Anticipated Discharge Date Admission Date: January 15, 2023 Subjective Subsequent visit was provided via telemedicine using two-way real-time interactive telecommunication between the patient and the telemedicine provider. For the duration of the visit, the provider was performing the assessment from a different facility than the patient. This includesuse of bluetooth stethoscope forauscultationperformed by the telepresenter that the telemedicine provider can hear if described in the physical exam. Manager Equipment contact information: Please call [facility] [phone]. (Phone Number For Physician Use Only) After establishing a telemedicine visit, patient was: Patient was verified with two unique identifiers, Patient/authorized rep acknowledged consent and understanding and Gave permission to continue telehealth session Time Spent with Patient: Subsequent => 25 min Pt denies abdominal pain Underwent ERCP yesterday for bile leak, stents placed. No cultures sent from ERCP Afebrile Hypotensive this AM to 80s/50s WBC 21.4 No documented out put from MIMI drain for a few days Review of System A complete ROS was performed and is negative except as mentioned in the HPI. Physical Exam Physical Exam: GEN: Well-appearing, in NAD. HEENT: Normocephalic, atraumatic. PERRL, EOMI, no nystagmus. Ears symmetric. No oropharyngeal lesions or exudates LAD: No cervical, supraclavicular, or axillary LAD. No inguinal lymphadenopathy CV: Regular rate and rhythm, no murmurs/rubs/gallops. RESP: No increased work of breathing, lungs clear to auscultation bilaterally in posterior fernandez. ABD: BS+. Soft, non-distended. Non-tender to palpation. EXT: No LE edema. Warm, well-perfused. SKIN: No lesions or rashes on exposed skin. BACK: No paraspinal tenderness or CVA tenderness NEURO: Alert and oriented. Answers all questions appropriately. Speech not slurred. PSYCH: Normal mood, affect appropriate. Results & Data Vital Signs (Past 12 Hours) Vital Signs Temp Pulse Pulse Resp BP Pulse Ox O2 Del Method 01/25/23 08:51 93/55 L 01/25/23 08:00 88/68 L 01/25/23 07:13 36.2 C L 112 H 24 86/50 L 96 Nasal Cannula 01/25/23 05:45 37.1 C 01/25/23 03:23 37.0 C 113 H 25 H 112/59 L 98 Room Air 01/25/23 01:21 36.4 C L 01/25/23 00:24 36.6 C 01/24/23 23:32 36.3 C L 01/24/23 22:28 35.9 C L 01/25/23 00:42 86 01/24/23 22:26 91 H 16 122/69 97 Nasal Cannula 01/24/23 21:34 114/88 O2 Flow Rate 01/25/23 08:51 01/25/23 08:00 01/25/23 07:13 01/25/23 05:45 01/25/23 03:23 01/25/23 01:21 01/25/23 00:24 01/24/23 23:32 01/24/23 22:28 01/25/23 00:42 01/24/23 22:26 2 01/24/23 21:34 Laboratory Results Short CBC 01/24/23 01/25/23 Range/Units 20:57 06:35 WBC 20.65 H 21.37 H (4.8-10.8) K/ul Hgb 8.9 L 8.4 L (12.0-16.0) g/dl Hct 27.7 L 26.0 L (37.0-47.0) % Plt Count 430 H 439 H (130-400) K/uL BMP 01/24/23 01/25/23 20:57 06:35 Sodium 141 141 Potassium 3.3 L 3.6 Chloride 111 H 111 H Carbon Dioxide 20 L 18 L BUN 42 H 45 H Creatinine 2.22 H 2.21 H Glucose 166 H 140 H Calcium 7.5 L 7.3 L Liver Function 01/24/23 01/25/23 Range/Units 20:57 06:35 Total Bilirubin 0.4 0.4 (0.2-1.0) mg/dl AST 24 23 (13-39) U/L ALT 12 12 (7-52) U/L Alkaline Phosphatase 100 98 (34-104) U/L Albumin 2.0 L 1.8 L (3.4-5.0) gm/dl Diagnostic Findings Abdomen/Pelvis CT 01/23/23 07:20 CT OF THE ABDOMEN AND PELVIS WITHOUT CONTRAST CLINICAL HISTORY: Splenic hemorrhage. COMPARISON STUDY: CT of the abdomen and pelvis January 15, 2023 and January 21, 2023. TECHNIQUE: Axial images of the abdomen and pelvis were obtained without IV contrast. Images were reviewed in the axial, sagittal, and coronal planes. Automated exposure control was utilized for the study. A dose lowering technique was utilized adhering to the principles of ALARA. FINDINGS: A moderate left pleural effusion is similar to CT of January 21, 2023. There is associated left lower lobe atelectasis. Scattered airspace opacities within the lower lungs are present. No pneumatosis or portal venous gas is present. A right upper quadrant drain within the cholecystectomy bed is noted. A common bile duct stent is in place. Gas within the cholecystectomy bed has increased since prior exam of January 21, 2023. A loculated fluid collection along the lateral segment of the liver measures 9.1 x 7.5 cm. This has increased in size since prior CT. Loculated fluid along the stomach with mass effect upon the stomach has also increased. There may be wall thickening of the gastric antrum. This could be due to underdistention. Perisplenic fluid collection has increased in size since CT of January 21, 2023. Multiple sites of increased attenuation representing hemorrhage. The spleen is irregular and diminutive suggestive of splenic injury. Note is again made of evidence for severe pancreatitis with edematous pancreas with suspected underlying necrosis. Fluid collection within the pancreatic head is unchanged. There is no gas within the pancreas. There is no evidence for a bowel obstruction. Small to moderate fluid within the pelvis has slightly increased. Bilateral renal calculi are again noted. There are no ureteral calculi. There is no hydronephrosis. Trace gas within the bladder. No acute fractures are identified within visualized skeletal structures. IMPRESSION: 1. Findings consistent with severe acute pancreatitis. 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 2. Perisplenic hemorrhage, stable to slightly increased since prior CT. The perisplenic fluid collection has increased in size since prior CT. Irregularity of the spleen consistent with splenic injury. 3. Increase in size of perihepatic and perigastric fluid collections with mass effect upon the stomach. The perihepatic fluid collection could be related to a bile leak or acute pancreatitis. 4. Increase in gas within the cholecystectomy bed. This is nonspecific given indwelling surgical drain and common bile duct stent however a persistent biliary leak cannot be excluded. 5. No significant change in a moderate left pleural effusion with left lower lobe atelectasis. 6. Slight increase in small to moderate pelvic ascites. ACT 112: Negative or not required by law. Electronically signed by: Brent Estrada M.D. 01/23/2023 9:22 AM Endo Retro Cholangiopancreatogram 01/24/23 00:00 [place] ERCP biliary ductal CLINICAL HISTORY: ERCP IN OR. Acute pancreatitis. COMPARISON STUDY: Abdomen and pelvis CT 01/23/2023. FLUOROSCOPY TIME: 7 minutes and 35 seconds. 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 The ampulla was cannulated and contrast was injected into the common bile duct. A balloon sweep was performed. This is followed by placement of 2 additional common bile duct stents. Multiple filling defects are suggested in the common bile duct stent which could represent gas bubbles. Contrast is seen within the gallbladder fossa status post cholecystectomy consistent with a persistent bile duct leak. IMPRESSION: 1. Fluoroscopic assistance as described above. 2. Persistent cystic duct leak again noted. ACT 112: Negative or not required by law. Electronically signed by: Dannie Chowdhury M.D. 01/25/2023 8:33 AM Micro: 01/25 BCx x2: pending 01/18 RUQ abd drain cx: probable Enterococcus. GS--few GPCs 01/16 Fungal BCx: NGTD 01/16 MRSA nares: negative 01/16 UCx: NG 01/15 BCx x2: NG 01/08 UCx: Pseudomonas, E faecalis (S levo) 12/18 Fungal BCx: NG 12/17 MIMI drainage fluid: NG. GS--negative. Medications Administered Current Inpatient Medications Acetaminophen (Acetaminophen 325 Mg Tab) 650 mg PO Q6 PRN PRN Reason: Fever Or MILD Pain Stop: 02/14/23 23:34 Last Admin: 01/21/23 08:05 Dose: 650 mg Amiodarone HCl (Amiodarone 200 Mg Tab) 200 mg PO QAM [facility] Stop: 02/22/23 06:59 Last Admin: 01/25/23 08:53 Dose: 200 mg Apixaban (Apixaban 5 Mg Tablet) 5 mg PO BID [facility] Stop: 02/15/23 08:59 Last Admin: 01/21/23 08:05 Dose: 5 mg Calamine/Phenol (Menthol-Zinc Oxide 360 Appln/120 Gm Tube) 1 appln EXT TID [facility] Stop: 02/15/23 08:59 Last Admin: 01/25/23 09:15 Dose: 1 appln Dextrose (Dextrose 50% 50 Ml Syringe) 25 - 50 ml IV UD PRN; Protocol PRN Reason: Hypoglycemia Protocol Stop: 02/15/23 08:04 Glucagon (Glucagon For Inj 1 Mg Vial) 1 mg SQ UD PRN; Protocol PRN Reason: Hypoglycemia Protocol Stop: 02/15/23 08:04 Glucose (Glucose 40% Gel 15 Gm Tube) 15 - 30 gm PO UD PRN; Protocol PRN Reason: Hypoglycemia Protocol Stop: 02/15/23 08:04 Glucose (Glucose 10 Tab/Tube) 4 - 8 tab PO UD PRN; Protocol PRN Reason: Hypoglycemia Treatment Stop: 02/15/23 08:04 Piperacillin Sod/Tazobactam (Sod 4.5 gm/ Dextrose) 120 mls @ 30 mls/hr IV Q8H [facility]ANDANA; Protocol Stop: 01/26/23 03:59 Last Admin: 01/25/23 04:21 Dose: 30 mls/hr Daptomycin 425 mg/ Syringe 8.5 mls @ 4.25 mls/min IV Q24H [facility]; Protocol Stop: 02/04/23 08:59 Last Admin: 01/25/23 08:54 Dose: 4.25 mls/min Insulin Aspart (Insulin Aspart Per Unit Charge) 0 units SC ACHS [facility] Stop: 02/15/23 08:14 Last Admin: 01/25/23 08:48 Dose: Not Given Magnesium Oxide (Magnesium Oxide 400 Mg Tab) 400 mg PO QAM [facility] Stop: 02/15/23 08:59 Last Admin: 01/25/23 08:54 Dose: 400 mg Methimazole (Methimazole 5 Mg Tablet) 5 mg PO DAILY [facility] Stop: 02/15/23 08:59 Last Admin: 01/25/23 08:55 Dose: 5 mg Miscellaneous (Carbohydrates For Hypoglycemia ) 15 - 30 gm PO UD PRN PRN Reason: Hypoglycemia Protocol Stop: 02/15/23 08:04 Octreotide Acetate (Octreotide Acetate 100 Mcg/Ml Vial) 50 mcg SQ TID [facility] Stop: 02/22/23 13:59 Last Admin: 01/25/23 09:07 Dose: 50 mcg Sertraline HCl (Sertraline Hcl 50 Mg Tablet) 50 mg PO QAM [facility] Stop: 02/15/23 08:59 Last Admin: 01/25/23 08:55 Dose: 50 mg
--- NOTE | 2023-01-25 09:55 | Gastroenterology Progress Note ---
Date of Service January 25, 2023 Assessment & Plan (1) Bile leak from gallbladder bed: Plan 72 year old female with history of pancreatitis s/p choledocholithiasis removal via ERCP, biliary stent placement last month, cholecystectomy complicated by bile leak managed by MIMI drain in tima hepatis area admitted w/ sepsis, abdominal pain. CT showed decreased pancreatic fluid collection, + L pleural effusion concerning for pneumonia. Biliary stent in good position w pneumobilia. MIMI drain was manipulated by Surgery and is now draining more. Repeat ERCP on 01/19 for metal CBD stent placement for bile leak. Repeat CT abdomen and pelvis without contrast this morning showed pancreatitis with multiple pancreatic and peripancreatic fluid collection with suspected underlying pancreatic necrosis, increasing perihepatic and perigastric fluid collection with mass effect on the stomach. EUS/ERCP yesterday w/ evidence of ascites and evidence of persistent leak from remnant gallbladder s/p stent exchange and fibrin glue injection to the cystic duct - Monitor drain output - Any increase in output, repeat CT scan - IV antibx with broad spectrum coverage; sepsis management per ICU/primary teams - LR IVF support - Dobhoff feeding tube placement for nutritional support. -> pt did not tolerate placement Admission and Anticipated Discharge Date Admission Date: January 15, 2023 Supervising Physician Co-Signing Physician Notes Attg add: Pt with continued poor appetite, abdominal pain. There has been no drainage from MIMI drain. Labs show persistent leukocytosis. A/P: Bile leak appears resolved. Will request CT tomorrow am to look at size of perigastric and perihepatic fluid collections. Her nutrition status and PO intake are poor. No evidence of gastric outlet obstruction by EUS, although she may have restricted gastric acommodation; her pain and depression may be contributing to poor PO intake as well. She continues to refuse naso-enteric feeding. Will continue to encourage PO intake; given poor nutritional status, agree with initiation of PN. Will ask radiology service if they can drain perigastric fluid collection, also to sample to to help r/o occult infection. This may also help with pain and gastric function. Risk of fistula d/w family, but likely low since bile leak appears controlled. Subjective at bedside. S/P repeat EUS/ERCP yesterday w/ stent exchange, fibrin glue injection to cystic duct for treatment of persistent bile leak. This AM, tired, weak. Not hungry No output in drain. EUS 2022: Ascites was found on endosonographic examination of the peritoneal cavity. No mature, walled off, drainale fluid collection seen. ERCP 2022: - A bile leak was found from the remnant gallbladder. - Biliary sphincterotomy was extended. - Fibrin glue injected in the cystic duct. - The stent was exchanged to a longer covered metal biliary stent. This successfully occluded the cystic duct take off. - Two plastic biliary stents were placed into the common bile duct and left hepatic duct. Review of Systems Review of Systems: All systems reviewed & are unremarkable except as noted in HPI & below Physical Exam Constitutional: + ill appearing (chronically ill appearing female); no acute distress Respiratory: normal respiratory effort Cardiovascular: Rate/Rhythm: + tachycardic Gastrointestinal (Abdomen): minimal-no output in bag in over 24h Skin: no rashes, warm and dry Results & Data Vital Signs (Past 12 Hours) Vital Signs Temp Pulse Pulse Resp BP Pulse Ox O2 Del Method 01/25/23 08:00 Nasal Cannula 01/25/23 08:51 93/55 L 01/25/23 08:00 88/68 L 01/25/23 09:22 36.8 C 110 H 21 133/73 98 Room Air 01/25/23 07:13 36.2 C L 112 H 24 86/50 L 96 Nasal Cannula 01/25/23 05:45 37.1 C 01/25/23 03:23 37.0 C 113 H 25 H 112/59 L 98 Room Air 01/25/23 01:21 36.4 C L 01/25/23 00:24 36.6 C 01/24/23 23:32 36.3 C L 01/24/23 22:28 35.9 C L 01/25/23 00:42 86 01/24/23 22:26 91 H 16 122/69 97 Nasal Cannula O2 Flow Rate 01/25/23 08:00 3 01/25/23 08:51 01/25/23 08:00 01/25/23 09:22 01/25/23 07:13 01/25/23 05:45 01/25/23 03:23 01/25/23 01:21 01/25/23 00:24 01/24/23 23:32 01/24/23 22:28 01/25/23 00:42 01/24/23 22:26 2 Laboratory Results 01/25/23 01/25/23 01/25/23 Range/Units 07:30 06:35 06:35 WBC 21.37 H (4.8-10.8) K/ul RBC 3.01 L (4.20-5.40) M/uL Hgb 8.4 L (12.0-16.0) g/dl Hct 26.0 L (37.0-47.0) % MCV 86.4 (80.0-100.0) fL MCH 27.9 (25.0-34.0) pg MCHC 32.3 (32.0-36.0) g/dL RDW Std Deviation 51.0 H (36.4-46.3) fL RDW Coeff of Mandy 16.5 H (11.5-14.5) % Plt Count 439 H (130-400) K/uL MPV 9.1 L (9.4-12.4) fL Immature Gran % (Auto) 0.7 % Neut % (Auto) 82.2 % Lymph % (Auto) 13.0 % [place] % (Auto) 3.9 % Eos % (Auto) 0.0 % Baso % (Auto) 0.2 % Neut # (Auto) 17.54 H (1.40-6.50) K/uL Lymph # (Auto) 2.78 (1.2-3.4) K/uL [place] # (Auto) 0.83 H (0.11-0.59) K/uL Eos # (Auto) 0.01 (0-0.50) K/uL Baso # (Auto) 0.05 (0-0.2) K/uL Immature Gran # (Auto) 0.16 (0.01-0.20) K/uL Absolute Nucleated RBC 0.03 (0-0.12) K/uL Nucleated RBC % (auto) 0.1 % Polychromasia 1+ Spherocytes 1+ Sodium 141 (136-145) mmol/L Potassium 3.6 (3.5-5.1) mmol/L Chloride 111 H (98-107) mmol/L Carbon Dioxide 18 L (21-32) mmol/L Anion Gap 12 H (3-11) BUN 45 H (6-23) mg/dl Creatinine 2.21 H (0.6-1.2) mg/dl Est Cr Clr Drug Dosing 24.9 ml/min Est GFR ( Amer) 24.8 ml/min Est GFR (Non-Af Amer) 21.4 ml/min BUN/Creatinine Ratio 20.4 H (10-20) Glucose 140 H (70-99(Fasting)) mg/dl POC Glucose 158 H (70-99) mg/dl Calcium 7.3 L (8.6-10.3) mg/dl Phosphorus (2.5-4.9) mg/dl Magnesium (1.7-2.4) mg/dl Total Bilirubin 0.4 (0.2-1.0) mg/dl AST 23 (13-39) U/L ALT 12 (7-52) U/L Alkaline Phosphatase 98 (34-104) U/L Total Protein 5.7 L (6.0-8.3) gm/dl Albumin 1.8 L (3.4-5.0) gm/dl Globulin 3.9 (2.5-4.0) gm/dl Albumin/Globulin Ratio 0.5 L (0.9-2) TSH (0.300-4.500) uIu/ml 01/24/23 01/24/23 01/24/23 Range/Units 20:57 20:57 20:57 WBC 20.65 H (4.8-10.8) K/ul RBC 3.17 L (4.20-5.40) M/uL Hgb 8.9 L (12.0-16.0) g/dl Hct 27.7 L (37.0-47.0) % MCV 87.4 (80.0-100.0) fL MCH 28.1 (25.0-34.0) pg MCHC 32.1 (32.0-36.0) g/dL RDW Std Deviation 50.0 H (36.4-46.3) fL RDW Coeff of Mandy 15.9 H (11.5-14.5) % Plt Count 430 H (130-400) K/uL MPV 9.1 L (9.4-12.4) fL Immature Gran % (Auto) 1.5 % Neut % (Auto) 85.4 % Lymph % (Auto) 10.1 % [place] % (Auto) 2.6 % Eos % (Auto) 0.2 % Baso % (Auto) 0.2 % Neut # (Auto) 17.62 H (1.40-6.50) K/uL Lymph # (Auto) 2.09 (1.2-3.4) K/uL [place] # (Auto) 0.54 (0.11-0.59) K/uL Eos # (Auto) 0.04 (0-0.50) K/uL Baso # (Auto) 0.05 (0-0.2) K/uL Immature Gran # (Auto) 0.31 H (0.01-0.20) K/uL Absolute Nucleated RBC 0.03 (0-0.12) K/uL Nucleated RBC % (auto) 0.1 % Polychromasia Spherocytes Sodium 141 (136-145) mmol/L Potassium 3.3 L (3.5-5.1) mmol/L Chloride 111 H (98-107) mmol/L Carbon Dioxide 20 L (21-32) mmol/L Anion Gap 10 (3-11) BUN 42 H (6-23) mg/dl Creatinine 2.22 H (0.6-1.2) mg/dl Est Cr Clr Drug Dosing 24.8 ml/min Est GFR ( Amer) 24.7 ml/min Est GFR (Non-Af Amer) 21.3 ml/min BUN/Creatinine Ratio 18.9 (10-20) Glucose 166 H (70-99(Fasting)) mg/dl POC Glucose (70-99) mg/dl Calcium 7.5 L (8.6-10.3) mg/dl Phosphorus 5.1 H (2.5-4.9) mg/dl Magnesium 1.9 (1.7-2.4) mg/dl Total Bilirubin 0.4 (0.2-1.0) mg/dl AST 24 (13-39) U/L ALT 12 (7-52) U/L Alkaline Phosphatase 100 (34-104) U/L Total Protein 6.4 (6.0-8.3) gm/dl Albumin 2.0 L (3.4-5.0) gm/dl Globulin 4.4 H (2.5-4.0) gm/dl Albumin/Globulin Ratio 0.5 L (0.9-2) TSH 2.016 (0.300-4.500) uIu/ml 01/24/23 01/24/23 01/24/23 Range/Units 20:08 18:09 11:13 WBC (4.8-10.8) K/ul RBC (4.20-5.40) M/uL Hgb (12.0-16.0) g/dl Hct (37.0-47.0) % MCV (80.0-100.0) fL MCH (25.0-34.0) pg MCHC (32.0-36.0) g/dL RDW Std Deviation (36.4-46.3) fL RDW Coeff of Mandy (11.5-14.5) % Plt Count (130-400) K/uL MPV (9.4-12.4) fL Immature Gran % (Auto) % Neut % (Auto) % Lymph % (Auto) % [place] % (Auto) % Eos % (Auto) % Baso % (Auto) % Neut # (Auto) (1.40-6.50) K/uL Lymph # (Auto) (1.2-3.4) K/uL [place] # (Auto) (0.11-0.59) K/uL Eos # (Auto) (0-0.50) K/uL Baso # (Auto) (0-0.2) K/uL Immature Gran # (Auto) (0.01-0.20) K/uL Absolute Nucleated RBC (0-0.12) K/uL Nucleated RBC % (auto) % Polychromasia Spherocytes Sodium (136-145) mmol/L Potassium (3.5-5.1) mmol/L Chloride (98-107) mmol/L Carbon Dioxide (21-32) mmol/L Anion Gap (3-11) BUN (6-23) mg/dl Creatinine (0.6-1.2) mg/dl Est Cr Clr Drug Dosing ml/min Est GFR ( Amer) ml/min Est GFR (Non-Af Amer) ml/min BUN/Creatinine Ratio (10-20) Glucose (70-99(Fasting)) mg/dl POC Glucose 163 H 152 H 175 H (70-99) mg/dl Calcium (8.6-10.3) mg/dl Phosphorus (2.5-4.9) mg/dl Magnesium (1.7-2.4) mg/dl Total Bilirubin (0.2-1.0) mg/dl AST (13-39) U/L ALT (7-52) U/L Alkaline Phosphatase (34-104) U/L Total Protein (6.0-8.3) gm/dl Albumin (3.4-5.0) gm/dl Globulin (2.5-4.0) gm/dl Albumin/Globulin Ratio (0.9-2) TSH (0.300-4.500) uIu/ml
--- NOTE | 2023-01-25 10:09 | Nephrology Progress Note ---
Date of Service January 25, 2023 Assessment & Plan Admission and Anticipated Discharge Date Admission Date: January 15, 2023 Subjective Assessment & Plan (1) Acute renal failure: Plan: nonoliguric ischemic ATN Her baseline creatinine as recently as the middle of last month was actually 0.9. During mid November to mid December extended admission for cholangitis and panc reatitis with complications, she had acute renal failure requiring several treatments of intermittent hemodialysis, with last treatment January 01. Her renal function recovered sufficiently to stop hemodialysis. Her discharge creatinine was 1.8 on January 12. Her presenting creatinine this admission on January 15 was 2 and for last 1 week 2.4 to 2.7 has edema and more ascites and pl effusion--no need of iv fluids. No lasix today but she does have e/o Fluid overload. But she is not SOB and On Room air. It is somewhat good that despite so many issue her creat has not gone up for more than a week now. Creat today stable at 2.2 Continue to monitor renal function with daily BMP Avoid nephrotoxins Subjective Seen for acute kidney injury. Patient has required dialysis in the previous admission. Urine amount not a lot--no catalan though. No shortness of breath and on RA.Legs are slightly swollen. Main complaint is abdominal pain. She is very depressed at this time . Review of Systems Review of Systems: All other systems were reviewed and negative except as noted in HPI Physical Exam Physical Exam: General exam: Appears comfortable, no acute distress HEENT: Pupils are equal and reactive to light Neck: No JVD, neck is supple trachea is midline Respiratory system: crackles bilaterally. Gastrointestinal: Abdomen is soft, non distended, non tender, bowel sounds are present CVS: Regular rate and rhythm. No murmurs, rubs or gallops Musculoskeletal: No joint or muscle tenderness Extremities: Non tender, 1+ edema, peripheral pulses are present Neuro: Oriented, no tremors, no focal neurological deficits Skin: No rashes Results & Data Vital Signs (Past 12 Hours) Vital Signs Temp Pulse Pulse Resp BP Pulse Ox O2 Del Method 01/25/23 08:00 Nasal Cannula 01/25/23 08:51 93/55 L 01/25/23 08:00 88/68 L 01/25/23 09:22 36.8 C 110 H 21 133/73 98 Room Air 01/25/23 07:13 36.2 C L 112 H 24 86/50 L 96 Nasal Cannula 01/25/23 05:45 37.1 C 01/25/23 03:23 37.0 C 113 H 25 H 112/59 L 98 Room Air 01/25/23 01:21 36.4 C L 01/25/23 00:24 36.6 C 01/24/23 23:32 36.3 C L 01/24/23 22:28 35.9 C L 01/25/23 00:42 86 01/24/23 22:26 91 H 16 122/69 97 Nasal Cannula O2 Flow Rate 01/25/23 08:00 3 01/25/23 08:51 01/25/23 08:00 01/25/23 09:22 01/25/23 07:13 01/25/23 05:45 01/25/23 03:23 01/25/23 01:21 01/25/23 00:24 01/24/23 23:32 01/24/23 22:28 01/25/23 00:42 01/24/23 22:26 2
--- NOTE | 2023-01-25 14:53 | Hospitalist Progress Note ---
Date of Service January 25, 2023 Assessment & Plan (1) Septic shock: Plan: Patient was recently hospitalized for about a month during which she was managed for acute pancreatitis, acute cholangitis, septic shock, acute renal failure requiring dialysis briefly, paroxysmal A-fib. Underwent ERCP on 12/10 with removal of stones from the bile duct. Underwent lap adele with extensive lysis of adhesions on 12/10 by general surgery. Was discharged to longterm facility and represented with abdominal and back pain. Labs on presentation showed worsening leukocytosis, worsening renal function and has been hypotensive. Being managed for septic shock.Was on Levophed which was weaned off around 5pm today (01/17). Sources of sepsis include possible intra-abdominal infection considering recent severe pancreatitis, surgical subhepatic drain in situ, recent UTI. Acute on chronic pancreatitis Intra-abdominal fluid collection-biliary leak, necrotic pancreatitis Continue on Zosyn for now after stent exchange performed by GI Initial ID consultation was done on 01/18/2023 and repeat follow-up will be done on 01/22/2023 Has pleural effusion (left) on CT abd/pelvis. Not in resp distress but she does have a slight cough. Appreciate ID input and recommendation to continue intravenous Zosyn for now New intra-abdominal collection is growing Enterococcus and daptomycin was added to cover possible VRE 01/21/2023 Complaining of more abdominal pain though the white count has been improving CT of the abdomen and pelvis showed severe acute pancreatitis as on 01/15/2023 and a new perisplenic hemorrhage We will continue with current pain medications and hold Eliquis Hemoglobin did not drop and the pain is controlled Discussed with the surgeon, GI and IR facility over [facility] and plan is to repeat the scan tomorrow any [facility] fluid colle ction/hemorrhage is increasing the patient will be transferred to tertiary care center for definitive drainage Discussed with the family members about this measure Repeat scan today showed: Increasing fluid collection as below 1. Findings consistent with severe acute pancreatitis. 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 2. Perisplenic hemorrhage, stable to slightly increased since prior CT. The perisplenic fluid collection has increased in size since prior CT. Irregularity of the spleen consistent with splenic injury. 3. Increase in size of perihepatic and perigastric fluid collections with mass effect upon the stomach. The perihepatic fluid collection could be related to a bile leak or acute pancreatitis. 4. Increase in gas within the cholecystectomy bed. This is nonspecific given indwelling surgical drain and common bile duct stent however a persistent biliary leak cannot be excluded. 5. No significant change in a moderate left pleural effusion with left lower lobe atelectasis. 6. Slight increase in small to moderate pelvic ascites. Discussed with the general surgery, ID specialist and informed her about ER CP/EUS tomorrow IV fluid was discontinued after EUS Condition remains stable Perisplenic fluid collection with possible bleeding from the spleen We will monitor May need to have IR drainage of the fluid Will evaluate further and await recommendation from the specialist Patient has ongoing pain but not any worse in the abdomen remains very tender No fever and or chills Likely to have another scan tomorrow to evaluate intra-abdominal collections further (2) Hyperthyroidism: Plan: Patient on methimazole which is known to have a side effect of pancreatitis. However, will cont for now as this pancreatitis is improved clinically and there are more likely causes/contributing factors. (3) Pleural effusion, left: Plan: hopeful this will improve after stent exchange and with time and movement. If no improvement, may need to consider thoracentesis. Repeat CT showed moderate left pleural effusion as before (4) Acute renal failure: Plan: Worsening renal function in setting of septic shock, around 2.6. Recent temporary dialysis last month which she is off of now. Nephro following. Creat appears stable although still worse than her baseline. Creatinine is little bit better today at 2.50 and potassium was 3.1 which was replaced Renal failure has been getting better with IV fluid at the same time getting edema IV fluid will be stopped following ERCP today (5) Acute pancreatitis: Plan: Intra-abdominal fluid collection as below: CT abdomen and pelvis without contrast on admission noted redemonstration of severe acute pancreatitis similar to 12/31/2022, CBD stent in satisfactory position, unchanged position of right subhepatic percutaneous drainage, bilateral nephrolithiasis without ureteral calculi or hydronephrosis, moderate left pleural effusion increased in size with left basilar consolidation suggestive of atelectasis, increased amount of abdominal left upper quadrant ascites Repeat CT of the abdomen pelvis showed: 01/21/2023 1. Severe acute pancreatitis is similar appearance to the 01/15/2023 exam with persistent acute peripancreatic fluid collections. 2. Prior cholecystectomy with decreased size of the air and fluid-filled structure within the tima hepatis. 3. Common bile duct stent in place with persistent pneumobilia. 4. Unchanged positioning of the right subhepatic percutaneous drainage catheter. 5. Increased amount of abdominopelvic ascites, notably surrounding the spleen with new perisplenic hemorrhage. 6. Bilateral nephrolithiasis. 7. Moderate left pleural effusion with left basilar consolidation. 8. Additional findings as above. We will continue with current antibiotic and pain medications Repeat CT scan of the abdomen pelvis showed increasing fluid collection around pancreas and also perisplenic area Discussed with the daughter and the for possible transfer to tertiary care center to perform IR procedures down the line Has acute necrotic pancreatitis with peripancreatic fluid collections-not amenable to drainage as per IR Status post ERCP/EUS and placement of new drainage on 01/24/2023 has been draining normally as per GI Plan s/p ERCP with bile duct stent exchange. Bile leak was noted intraoperatively. New transcutaneous drain in place draining into colostomy bag. She is recovering well, slightly lethargic. Continues with therapy with plans for rehab. As above Nutritional status She has not been eating or drinking enough Discussed with the GI and plan to put coresafe and start tube feeding Taking minimal oral Other significant medical condition as below Paroxysmal atrial fibrillation-rate is controlled and has been on Eliquis Depression-seems to be stable and Multiple sclerosis-she has been moving all of her extremities though has weakness in the legs. Has been bedbound for the last 1 month DVT ppx- apixaban -on hold due to splenic hemorrhage as above Full code Dispo-awaiting Detailed discussion with the daughter Explained current situation beginning from first admission to the hospital Answered all of their questions Discussed about partial cholecystectomy and the drainage in the gallbladder area with biliary leakage Discussed about ERCP/EUS that was done on of this month Discussed about peripancreatic fluid collection and also splenic area fluid collection/hemorrhage And also discussed about possible transfer to tertiary care center if needed and is accepted by an accepting physician Admission and Anticipated Discharge Date Admission Date: January 15, 2023 Subjective 01/21/2023 The patient was seen and examined in telemetry unit in presence of the She has been complaining of more abdominal pain today without any nausea and or vomiting Denies any fever and or chills Denies any shortness of breath 01/22/2023 The patient was seen and examined in telemetry unit in presence of the She remains weak and lethargic but does not have any more abdominal pain at rest Her vitals remained stable and her hemoglobin has not changed 01/23/2023 The patient was seen and examined in telemetry unit in presence of the She remains stable and does not complain of any increasing pain She could not tolerate coresef tube yesterday Minimal intake orally 01/24/2023 Patient was seen and examined in telemetry unit in presence of the She will be going for ERCP/EUS this afternoon Remains stable and denies any significant pain 01/25/2023 The patient was seen and examined in telemetry unit in presence of the daughter She has been weak and lethargic and has not been showing any progress Has had ERCP/EUS and placement of biliary stent and external drainage Review of Systems Review of Systems: All systems reviewed and are unremarkable except as noted below Physical Exam Physical Exam: Lying in bed without any acute distress but remains very weak and lethargic Constitutional: well developed, well nourished, + ill appearing and + obese Eyes: PERRL, conjunctivae normal, anicteric sclerae ENMT: external ear and nose normal, oropharynx normal Neck: trachea midline, no thyromegaly Respiratory: no respiratory distress Auscultation: + diminished lung sounds and + crackles (Minimal crackles left base) Cardiovascular: Rate/Rhythm: regular rate, regular rhythm and + tachycardic Heart Sounds: normal S1 and normal S2; no murmur Extremities: + edema (Trace edema bilaterally) Gastrointestinal (Abdomen): Inspection/Auscultation: + abdomen distended and normal bowel sounds Percussion/Palpation: + abdomen tender and abdomen soft Neurologic: normal touch/pain/proprioception and moves all extremities; no focal motor deficits Psychiatric: A+Ox3, euthymic affect Lymphatic: no cervical or axillary lymphadenopathy Results & Data Results & Data Vital Signs (Past 12 Hours) Vital Signs Temp Pulse Resp BP Pulse Ox O2 Del Method O2 Flow Rate 01/25/23 11:30 36.6 C 109 H 19 93/60 L 97 Nasal Cannula 2 01/25/23 08:00 Nasal Cannula 3 01/25/23 08:51 93/55 L 01/25/23 08:00 88/68 L 01/25/23 09:22 36.8 C 110 H 21 133/73 98 Room Air 01/25/23 07:13 36.2 C L 112 H 24 86/50 L 96 Nasal Cannula 01/25/23 05:45 37.1 C 01/25/23 03:23 37.0 C 113 H 25 H 112/59 L 98 Room Air Laboratory Results Short CBC 01/24/23 01/25/23 Range/Units 20:57 06:35 WBC 20.65 H 21.37 H (4.8-10.8) K/ul Hgb 8.9 L 8.4 L (12.0-16.0) g/dl Hct 27.7 L 26.0 L (37.0-47.0) % Plt Count 430 H 439 H (130-400) K/uL BMP 01/24/23 01/25/23 20:57 06:35 Sodium 141 141 Potassium 3.3 L 3.6 Chloride 111 H 111 H Carbon Dioxide 20 L 18 L BUN 42 H 45 H Creatinine 2.22 H 2.21 H Glucose 166 H 140 H Calcium 7.5 L 7.3 L Liver Function 01/24/23 01/25/23 Range/Units 20:57 06:35 Total Bilirubin 0.4 0.4 (0.2-1.0) mg/dl AST 24 23 (13-39) U/L ALT 12 12 (7-52) U/L Alkaline Phosphatase 100 98 (34-104) U/L Albumin 2.0 L 1.8 L (3.4-5.0) gm/dl Medications Administered Current Inpatient Medications Acetaminophen (Acetaminophen 325 Mg Tab) 650 mg PO Q6 PRN PRN Reason: Fever Or MILD Pain Stop: 02/14/23 23:34 Last Admin: 01/21/23 08:05 Dose: 650 mg Amiodarone HCl (Amiodarone 200 Mg Tab) 200 mg PO QAM [facility] Stop: 02/22/23 06:59 Last Admin: 01/25/23 08:53 Dose: 200 mg Apixaban (Apixaban 5 Mg Tablet) 5 mg PO BID VANDANA Stop: 02/15/23 08:59 Last Admin: 01/21/23 08:05 Dose: 5 mg Calamine/Phenol (Menthol-Zinc Oxide 360 Appln/120 Gm Tube) 1 appln EXT TID VANDANA Stop: 02/15/23 08:59 Last Admin: 01/25/23 09:15 Dose: 1 appln Dextrose (Dextrose 50% 50 Ml Syringe) 25 - 50 ml IV UD PRN; Protocol PRN Reason: Hypoglycemia Protocol Stop: 02/15/23 08:04 Glucagon (Glucagon For Inj 1 Mg Vial) 1 mg SQ UD PRN; Protocol PRN Reason: Hypoglycemia Protocol Stop: 02/15/23 08:04 Glucose (Glucose 40% Gel 15 Gm Tube) 15 - 30 gm PO UD PRN; Protocol PRN Reason: Hypoglycemia Protocol Stop: 02/15/23 08:04 Glucose (Glucose 10 Tab/Tube) 4 - 8 tab PO UD PRN; Protocol PRN Reason: Hypoglycemia Treatment Stop: 02/15/23 08:04 Piperacillin Sod/Tazobactam (Sod 4.5 gm/ Dextrose) 120 mls @ 30 mls/hr IV Q8H VANDANA; Protocol Stop: 01/26/23 03:59 Last Admin: 01/25/23 13:03 Dose: 30 mls/hr Daptomycin 425 mg/ Syringe 8.5 mls @ 4.25 mls/min IV Q48H [facility]; Protocol Stop: 02/04/23 08:59 Insulin Aspart (Insulin Aspart Per Unit Charge) 0 units SC ACHS [facility] Stop: 02/15/23 08:14 Last Admin: 01/25/23 13:02 Dose: 2 units Magnesium Oxide (Magnesium Oxide 400 Mg Tab) 400 mg PO QAM [facility] Stop: 02/15/23 08:59 Last Admin: 01/25/23 08:54 Dose: 400 mg Methimazole (Methimazole 5 Mg Tablet) 5 mg PO DAILY [facility]ANDANA Stop: 02/15/23 08:59 Last Admin: 01/25/23 08:55 Dose: 5 mg Miscellaneous (Carbohydrates For Hypoglycemia ) 15 - 30 gm PO UD PRN PRN Reason: Hypoglycemia Protocol Stop: 02/15/23 08:04 Octreotide Acetate (Octreotide Acetate 100 Mcg/Ml Vial) 50 mcg SQ TID [facility] Stop: 02/22/23 13:59 Last Admin: 01/25/23 09:07 Dose: 50 mcg Sertraline HCl (Sertraline Hcl 50 Mg Tablet) 50 mg PO QAM [facility] Stop: 02/15/23 08:59 Last Admin: 01/25/23 08:55 Dose: 50 mg (5) Acute pancreatitis Acute pancreatitis complication: unspecified Pancreatitis type: unspecified pancreatitis type Qualified Code(s): K85.90 - Acute pancreatitis without necrosis or infection, unspecified
[2023-01-25] MEDS ORDERED: DEXTROSE 10% 1,000 ML IV PRN (15:28)
[2023-01-25] MEDS: ACETAMINOPHEN 325 MG TAB PO PRN (21:45)
[2023-01-26] MEDS ORDERED: SODIUM CHLORIDE 0.9% 500 ML IV SCH (00:30)
[2023-01-26 06:18] LABS: Hematocrit (blood only) 27.3 % (37.0-47.0); Hemoglobin 8.8 g/dl (12.0-16.0); Mean Corpuscular Hemoglobin 28.3 pg (25.0-34.0); Mean Corpuscular Hgb Conc 32.2 g/dL (32.0-36.0); Mean Corpuscular Volume 87.8 fL (80.0-100.0); Mean Platelet Volume 9.3 fL (9.4-12.4); Nucleated RBC # (auto) 0.03 K/uL (0-0.12); Nucleated RBC % (auto) 0.1 %; Platelet Count 417 K/uL (130-400); RDW Standard Deviation 53.2 fL (36.4-46.3); Red Blood Count 3.11 M/uL (4.20-5.40)
[2023-01-26 06:37] LABS: Albumin Globulin Ratio 0.4 (0.9-2); Albumin Level 1.8 gm/dl (3.4-5.0); BUN Creatinine Ratio 20.8 (10-20); Bilirubin,Total 0.4 mg/dl (0.2-1.0); Calcium 7.4 mg/dl (8.6-10.3); Creatinine Clr Calc Pharmacy 22.4 ml/min; Est GFR (African American) 21.4 ml/min; Est GFR (Non-African American) 18.4 ml/min; Globulin 4.2 gm/dl (2.5-4.0); Potassium 3.4 mmol/L (3.5-5.1)
[2023-01-26 06:42] LABS: Basophils # (auto) 0.06 K/uL (0-0.2); Basophils % (auto) 0.2 %; Eosinophils # (auto) 0.02 K/uL (0-0.50); Eosinophils % (auto) 0.1 %; Immature Granulocytes # (auto) 0.31 K/uL (0.01-0.20); Lymphocytes # (auto) 3.62 K/uL (1.2-3.4); Lymphocytes % (auto) 12.2 %; Monocytes # (auto) 1.33 K/uL (0.11-0.59); Monocytes % (auto) 4.5 %; Neutrophils # (auto) 24.26 K/uL (1.40-6.50)
--- NOTE | 2023-01-26 08:25 | CT Scan Report ---
CT SCAN OF THE ABDOMEN WITHOUT IV CONTRAST CLINICAL HISTORY: Intra-abdominal fluid collections. COMPARISON STUDY: Abdominal CT dated 01/23/2023. TECHNIQUE: CT scan of the abdomen is performed from the lung bases to the pelvic inlet. Images are re viewed in the axial, sagittal, and coronal planes. IV contrast was not administered for this examinat ion. Note that the examination was performed in significantly suboptimal fashion without oral and IV contrast. A dose lowering technique was utilized adhering to the principles of ALARA. CT DOSE: 645.56 mGy.cm FINDINGS: Lung bases: The heart is normal in size and without pericardial effusion. There are coronary artery c alcifications. There is a moderate left pleural effusion with left basilar consolidation. There is tr adithya right pleural effusion with dependent atelectasis. Groundglass opacities are noted in the lingula . Liver: The unenhanced liver is normal in size, contour, and attenuation. There is no intrahepatic mary anne iary ductal dilatation. Pneumobilia is observed. A loculated fluid collection around the lateral segm ent of the left lobe has increased in size from 01/23/2023. This now measures 11 x 10.5 cm (previously measured 9 x 7.5 cm). Gallbladder: The gallbladder is surgically absent. Common bile duct stents are in place. Spleen: The spleen is irregular and diminutive suggesting splenic injury. Again seen is a perisplenic fluid collection with hyperdense foci indicating hemorrhage. The perisplenic fluid collection has de creased in size from 01/23/2023, now measuring approximately 14 x 6.5 cm (previously measured 15 x 8.5 cm). Pancreas: The pancreas is edematous with surrounding inflammation. Inflammation appears modestly impr zev from 01/23/2023. There is a fluid collection in the region of the pancreatic neck seen on image # 179. This measures 3.1 x 2.4 cm and could represent focal necrosis versus pseudocyst. The distal panc reas appears heterogeneous. The duct is grossly unremarkable as seen on this unenhanced examination. Adrenal glands: Unremarkable. Kidneys: The unenhanced kidneys demonstrate mild cortical atrophy and are without hydronephrosis. The re are at least 5 nonobstructing left renal calculi which measure up to 12 mm. There are at least 7 n onobstructing right renal calculi which measure up to 13 mm. No stones are seen in the proximal urete rs. There is no evidence of contour deforming renal mass lesion. Abdominal vasculature: The abdominal aorta is normal in course and caliber noting mild atheroscleroti c calcification. Bowel: Imaged portions of the bowel show no evidence of obstruction. Enteric contrast is noted in the right colon. Peritoneum: A percutaneous catheter from a right lower quadrant approach is terminates just below the gallbladder fossa. There is an air contrast level in the gallbladder fossa. This is likely related t o recent ERCP and indicates cystic duct leak. There is a small volume of partially loculated abdomina l ascites. No intraperitoneal free air is identified. See above under liver and spleen for discussion of surrounding fluid collection. Lymphadenopathy: None. Skeletal structures: The skeletal structures are osteopenic. No lytic or blastic lesions are seen. Soft tissues: There is body wall edema. IMPRESSION: 1. The spleen is irregular and diminutive suggesting splenic injury. A perisplenic fluid collection/h ematoma has decreased in size from 01/23/2023. 2. An air/contrast level in the gallbladder fossa is likely related to cystic duct leak when compared to the recent ERCP images. 3. A loculated fluid collection around the lateral segment of the left lobe of the liver has increase d in size from 01/23/2023. 4. Abdominal ascites has modestly increased from 01/23/2023. 5. Again seen is evidence of acute pancreatitis. Inflammatory change has modestly improved from previ ous. 6. A fluid collection in the pancreatic neck could represent focal necrosis or developing pseudocyst. 7. Common bile duct stents are in place. Pneumobilia suggests patency. 8. Moderate left and trace right pleural effusions with dependent consolidation. 9. Bilateral nephrolithiasis. 10. Additional findings as above. ACT 112: Negative or not required by law. Electronically signed by: Chidi Garay M.D. 01/26/2023 8:23 AM
[2023-01-26] MEDS ORDERED: TPN/PPN CONSULT PHARMACY PRN (08:40)
[2023-01-26] MEDS: methIMAzole 5 MG TABLET PO SCH (08:51)
[2023-01-26] MEDS: AMIODARONE 200 MG TAB PO SCH (08:51)
[2023-01-26] MEDS: MAGNESIUM OXIDE 400 MG TAB PO SCH (08:51)
[2023-01-26] MEDS: SERTRALINE HCL 50 MG TABLET PO SCH (08:51)
[2023-01-26] MEDS: PIPERACILLIN/TAZOBACTAM 4.5 GM in DEXTROSE 5% 100 ML IV SCH ×2 (08:51→16:01)
[2023-01-26] MEDS: INSULIN ASPART PER UNIT CHARGE SC SCH ×4 (08:58→21:44)
[2023-01-26] MEDS: MENTHOL-ZINC OXIDE 360 APPLN/120 GM TUBE EXT SCH ×3 (08:58→22:03)
--- NOTE | 2023-01-26 09:32 | Nephrology Progress Note ---
Date of Service January 26, 2023 Assessment & Plan Admission and Anticipated Discharge Date Admission Date: January 15, 2023 Subjective Assessment & Plan (1) Acute renal failure: Plan: nonoliguric ischemic ATN Her baseline creatinine as recently as the middle of last month was actually 0.9. During mid November to mid December extended admission for cholangitis and panc reatitis with complications, she had acute renal failure requiring several treatments of intermittent hemodialysis, with last treatment January 01. Her renal function recovered sufficiently to stop hemodialysis. Her discharge creatinine was 1.8 on January 12. Her presenting creatinine this admission on January 15 was 2 and for last 1 week 2.4 to 2.7 has edema and ascites and pl effusion--no need of iv fluids even though creat up a bit from yesterday because of multiple episodes of Low BP. if her BP keeps getting lower consider adding some vasopressors. No lasix today but she does have e/o Fluid overload. But she is not SOB and On Room air so will skip lasix Continue to monitor renal function with daily BMP Avoid nephrotoxins Subjective Seen for acute kidney injury. Patient has required dialysis in the previous admission. Urine amount not a lot--no catalan though. No shortness of breath and on RA.Legs are slightly swollen. Main complaint is abdominal pain. Review of Systems Review of Systems: All other systems were reviewed and negative except as noted in HPI Physical Exam Physical Exam: General exam: Appears comfortable, no acute distress HEENT: Pupils are equal and reactive to light Neck: No JVD, neck is supple trachea is midline Respiratory system: crackles bilaterally. Gastrointestinal: Abdomen is soft, non distended, non tender, bowel sounds are present CVS: Regular rate and rhythm. No murmurs, rubs or gallops Musculoskeletal: No joint or muscle tenderness Extremities: Non tender, 1+ edema, peripheral pulses are present Neuro: Oriented, no tremors, no focal neurological deficits Skin: No rashes Results & Data Vital Signs (Past 12 Hours) Vital Signs Temp Pulse Pulse Resp BP Pulse Ox O2 Del Method 01/25/23 08:00 Nasal Cannula 01/25/23 08:51 93/55 L 01/25/23 08:00 88/68 L 01/25/23 09:22 36.8 C 110 H 21 133/73 98 Room Air 01/25/23 07:13 36.2 C L 112 H 24 86/50 L 96 Nasal Cannula 01/25/23 05:45 37.1 C 01/25/23 03:23 37.0 C 113 H 25 H 112/59 L 98 Room Air 01/25/23 01:21 36.4 C L 01/25/23 00:24 36.6 C 01/24/23 23:32 36.3 C L 01/24/23 22:28 35.9 C L 01/25/23 00:42 86 01/24/23 22:26 91 H 16 122/69 97 Nasal Cannula Results & Data Vital Signs (Past 12 Hours) Vital Signs Temp Pulse Pulse Resp BP Pulse Ox O2 Del Method 01/26/23 07:16 99 H 01/26/23 07:05 36.1 C L 101 H 20 97/71 L 98 Room Air 01/25/23 22:22 106 H 01/26/23 03:38 36.5 C 107 H 22 100/61 97 Room Air 01/25/23 23:00 36.8 C 103 H 19 108/59 L 94 Room Air
--- NOTE | 2023-01-26 09:40 | Gastroenterology Progress Note ---
Date of Service January 26, 2023 Assessment & Plan (1) Bile leak from gallbladder bed: Plan 72 year old female with history of pancreatitis s/p choledocholithiasis removal via ERCP, biliary stent placement last month, cholecystectomy complicated by bile leak managed by MIMI drain in tima hepatis area admitted w/ sepsis, abdominal pain. CT showed decreased pancreatic fluid collection, + L pleural effusion concerning for pneumonia. Biliary stent in good position w pneumobilia. MIMI drain was manipulated by Surgery and is now draining more. Repeat ERCP on 01/19 for metal CBD stent placement for bile leak. Repeat CT abdomen and pelvis without contrast this morning showed pancreatitis with multiple pancreatic and peripancreatic fluid collection with suspected underlying pancreatic necrosis, increasing perihepatic and perigastric fluid collection with mass effect on the stomach. EUS/ERCP 01/24 w/ evidence of ascites and evidence of persistent leak from remnant gallbladder s/p stent exchange and fibrin glue injection to the cystic duct - CT abd this AM showed persistent L liver lobe fluid collection. Discussed finding with Dr. Mcneill and IR (Xu Marnique PA-C) and plan for large drainage catheter placement to drain perihepatic fluid collection - Continue IVF, IV antibx coverage - Pt did not tolerate Dobhoff feeding placement. Will need to consider parenteral nutrition start. - Monitor RUQ drain output Admission and Anticipated Discharge Date Admission Date: January 15, 2023 Supervising Physician Co-Signing Physician Notes I performed a history and physical examination of the patient today, including specifically on physical exam - soft abdomen. I have discussed the patient's management with the advanced practitioner. Please refer to the nurse practitioner's note for the documented findings and plan of care. IR for drain of the fluid collection around the left lobe of the liver. Continue ABx. Bile leak seems controlled now. Recall GI if needed. Subjective Pt still w low appetite, didn't want to eat breakfast. She denies n/v. Abd uncomfortable RUQ drain output 10mL CT abd wo contrast: 1. The spleen is irregular and diminutive suggesting splenic injury. A perisplenic fluid collection/hematoma has decreased in size from 01/23/2023. 2. An air/contrast level in the gallbladder fossa is likely related to cystic duct leak when compared to the recent ERCP images. 3. A loculated fluid collection around the lateral segment of the left lobe of the liver has increased in size from 01/23/2023. 4. Abdominal ascites has modestly increased from 01/23/2023. 5. Again seen is evidence of acute pancreatitis. Inflammatory change has modestly improved from previous. 6. A fluid collection in the pancreatic neck could represent focal necrosis or developing pseudocyst. 7. Common bile duct stents are in place. Pneumobilia suggests patency. 8. Moderate left and trace right pleural effusions with dependent consolidation. 9. Bilateral nephrolithiasis. Review of Systems Review of Systems: All systems reviewed & are unremarkable except as noted in HPI & below Physical Exam Constitutional: WD/WN, vitals as above + ill appearing, + frail appearing, well groomed, cooperative and comfortable Eyes: PERRL, conjunctivae normal, anicteric sclerae ENMT: external ear and nose normal, oropharynx normal Respiratory: Diminished overall Cardiovascular: RRR, no murmur, no edema Gastrointestinal (Abdomen): Generalized tenderness on palpation. BS hypoactive, mild distension. RUQ drain wo output on bag Skin: no rashes, warm and dry no jaundice Neurologic: Motor/Sensory: no asterixis Psychiatric: A+Ox3, euthymic affect Affect: + depressed affect Lymphatic: no lymphedema Results & Data Vital Signs (Past 12 Hours) Vital Signs Temp Pulse Pulse Resp BP Pulse Ox O2 Del Method 01/26/23 07:16 99 H 01/26/23 07:05 36.1 C L 101 H 20 97/71 L 98 Room Air 01/25/23 22:22 106 H 01/26/23 03:38 36.5 C 107 H 22 100/61 97 Room Air 01/25/23 23:00 36.8 C 103 H 19 108/59 L 94 Room Air
[2023-01-26 09:43] LABS: Phosphorus 5.8 mg/dl (2.5-4.9)
--- NOTE | 2023-01-26 11:17 | Pharmacy Report ---
PHA: Parenteral Nutrition Con - Date of Service January 26, 2023 - Scope Pharmacy was consulted on 01/26/23 to manage parenteral nutrition orders for this patient. - Subjective The patient is currently on day 1 of peripheral parenteral nutrition for prolonged (>7 days) minimal enteral intake. - Objective Height: 5 ft 4 in Weight: 94.8 kg Intake & Output (24hrs):: Intake & Output 01/24/23 01/25/23 01/26/23 01/27/23 06:59 06:59 06:59 06:59 Intake Total 2816.667 / 2816.667 3870 / 3870 1360 / 1360 Output Total 600 / 600 552 / 552 360 / 360 Balance 2216.667 / 2216.667 3318 / 3318 1000 / 1000 Weight 91.7 kg 91.7 kg 94.8 kg Laboratory Data (Last 24 Hr):: 01/26/23 05:47 Sodium 141 Potassium 3.4 L Chloride 110 H Carbon Dioxide 16 L BUN 52 H Creatinine 2.50 H Glucose 176 H Calcium 7.4 L Phosphorus 5.8 H Magnesium 2.0 Total Bilirubin 0.4 AST 20 ALT 11 Alkaline Phosphatase 97 Albumin 1.8 L Triglycerides 155 H Nutrition Assessment:: Please refer to the Notes section of the EMR for the most recent table games dealer note. - Assessment Patient with prolonged minimal oral intake (>7 days), did not tolerate feeding tube placement. Complex intraabdominal history. F: None; receiving zosyn 120 mL q8H E: Potassium 3.4- recommended replacement prior to initiation of PPN, Phos 5.8- hold from PPN; Cl 110, CO2 16- minimize chloride N: Glucose elevated- 15 units of regular insulin to cover dextrose from ppn, continue novolog; TG 155- monitor; Albumin 1.8 - Plan For day 1 of PN administration, the following will be ordered: Macronutrients Amino acids 71 grams/day Dextrose 84 grams/day Lipids 50 grams/day Micronutrients Sodium acetate 150 mEq Potassium acetate 60 mEq Magnesium sulfate4.06 mEq Multivitamins 10 mL Trace Elements 1 mL Additional additives: Thiamine 100 mg Regular Insulin 15 units Total volume 1798 mL to be infused over 24 hrs will provide 1071 kcal/day Final osmolarity 867 mOsm/L (maximum for PPN is 900 mOsm/L) Labs, as indicated, will be ordered per protocol Pharmacy will continue to follow and adjust parenteral nutrition orders on a daily basis. Thank you for allowing us to participate in the care of this patient.
--- NOTE | 2023-01-26 12:38 | Ultrasound Report ---
ULTRASOUND-GUIDED PERIHEPATIC FLUID COLLECTION DRAIN PLACEMENT CLINICAL HISTORY: Perihepatic complex fluid collection PROCEDURE: Procedure and risks were explained. Informed consent was obtained. A final timeout was com pleted. The anterior abdomen was prepped and draped in sterile fashion. 1% buffered lidocaine was uti lized for skin anesthesia. Utilizing ultrasound guidance, an 18-gauge 10 cm Chiba needle was advanced into the perihepatic compl ex fluid collection. A 0.035 Amplatz wire was introduced through the needle and exchanged for a 10 Fr [facility] pigtail catheter. Approximately 200 mL of brownish fluid was removed at the time of the p rocedure with a portion sent to the lab for analysis. The pigtail catheter was sutured to the skin wi th 2-0 silk and placed to suction bag drainage. The patient tolerated the procedure well. Vital signs we monitored on the floor. IMPRESSION: Ultrasound-guided perihepatic fluid collection drain placement as above. Performed, dictated, and signed by Xu Manrique PA-C; to be co-signed by Dr. Chidi Garay. Electronically signed by: Chidi Garay M.D. 01/26/2023 1:01 PM
--- NOTE | 2023-01-26 12:41 | Surgery Progress Note ---
Date of Service January 26, 2023 Assessment & Plan (1) Pancreatitis: Plan: Additional CT scan this morning-showed some contrast and air in the gallbladder bed-likely from ERCP Right upper quadrant MIMI drain is unlikely communicating with this area- minimal to no output Increase fluid in the epigastric area around the left lobe of the liver-a drain was placed via IR-recovered 200+ Cc of brown serous fluid-does not look purulent, not classic bile-lab s tudies and culture pending Inflammatory changes around the pancreas similar-possibly some necrosis near the head neck area Perisplenic fluid collection likely less-this was not aspirated from concern by the radiologist for bleeding I may remove her MIMI drain in the next 24 to 48 hours as it does not appear to be helping at this point May require additional drainage catheter in the subhepatic space in the future To begin parenteral nutrition Admission and Anticipated Discharge Date Admission Date: January 15, 2023 Results & Data Vital Signs (Past 12 Hours) Vital Signs Temp Pulse Pulse Resp BP Pulse Ox O2 Del Method 01/26/23 11:57 92 H 18 125/76 98 Room Air 01/26/23 09:53 Room Air 01/26/23 07:16 99 H 01/26/23 07:05 36.1 C L 101 H 20 97/71 L 98 Room Air 01/26/23 03:38 36.5 C 107 H 22 100/61 97 Room Air PG Care Time/CCT Total # of Minutes Spent Total Time Spent with Patient: Total time spent is greater than 50% in coordination of care (as documented) at patient's floor/unit and/or counseling patient: Coding Level of Care Code None Diagnoses Pancreatitis K85.90
[2023-01-26 13:36] LABS: Amylase Peritoneal Fluid 3724 U/L
--- NOTE | 2023-01-26 14:07 | Hospitalist Progress Note ---
Date of Service January 26, 2023 Assessment & Plan (1) Septic shock: Plan: Patient was recently hospitalized for about a month during which she was managed for acute pancreatitis, acute cholangitis, septic shock, acute renal failure requiring dialysis briefly, paroxysmal A-fib. Underwent ERCP on 12/10 with removal of stones from the bile duct. Underwent lap adele with extensive lysis of adhesions on 12/10 by general surgery. [facility] and represented with abdominal and back pain. Labs on presentation showed worsening leukocytosis, worsening renal function and has been hypotensive. Being managed for septic shock.Was on Levophed which was weaned off around 5pm today (01/17). Sources of sepsis include possible intra-abdominal infection considering recent severe pancreatitis, surgical subhepatic drain in situ, recent UTI. Acute on chronic pancreatitis Intra-abdominal fluid collection-biliary leak, necrotic pancreatitis Continue on Zosyn for now after stent exchange performed by GI Initial ID consultation was done on 01/18/2023 and repeat follow-up will be done on 01/22/2023 Has pleural effusion (left) on CT abd/pelvis. Not in resp distress but she does have a slight cough. Appreciate ID input and recommendation to continue intravenous Zosyn for now New intra-abdominal collection is growing Enterococcus and daptomycin was added to cover possible VRE 01/21/2023 Complaining of more abdominal pain though the white count has been improving CT of the abdomen and pelvis showed severe acute pancreatitis as on 01/15/2023 and a new perisplenic hemorrhage We will continue with current pain medications and hold Eliquis Hemoglobin did not drop and the pain is controlled Discussed with the surgeon, GI and IR facility over [facility] and plan is to repeat the scan tomorrow any [facility] fluid colle ction/hemorrhage is increasing the patient will be transferred to tertiary care center for definitive drainage Discussed with the family members about this measure Repeat scan today showed: Increasing fluid collection as below 1. Findings consistent with severe acute pancreatitis. 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 2. Perisplenic hemorrhage, stable to slightly increased since prior CT. The perisplenic fluid collection has increased in size since prior CT. Irregularity of the spleen consistent with splenic injury. 3. Increase in size of perihepatic and perigastric fluid collections with mass effect upon the stomach. The perihepatic fluid collection could be related to a bile leak or acute pancreatitis. 4. Increase in gas within the cholecystectomy bed. This is nonspecific given indwelling surgical drain and common bile duct stent however a persistent biliary leak cannot be excluded. 5. No significant change in a moderate left pleural effusion with left lower lobe atelectasis. 6. Slight increase in small to moderate pelvic ascites. Discussed with the general surgery, ID specialist and informed her about ER CP/EUS tomorrow IV fluid was discontinued after EUS Condition remains stable Intra-abdominal fluid collections; as below Perisplenic fluid collection with possible bleeding from the spleen We will monitor-most recent CT of the abdomen and pelvis did show a decrease in perisplenic fluid/hemorrhage Discussed with the GI-epigastric and peripancreatic fluid collections will be drained with a larger drainage tube today that is for 01/26/2023 Patient remains critically stable And the pain is controlled (2) Hyperthyroidism: Plan: Patient on methimazole which is known to have a side effect of pancreatitis. However, will cont for now as this pancreatitis is improved clinically and there are more likely causes/contributing factors. (3) Pleural effusion, left: Plan: hopeful this will improve after stent exchange and with time and movement. If no improvement, may need to consider thoracentesis. Repeat CT showed moderate left pleural effusion as before (4) Acute renal failure: Plan: Worsening renal function in setting of septic shock, around 2.6. Recent temporary dialysis last month which she is off of now. Nephro following. Creat appears stable although still worse than her baseline. Creatinine is little bit better today at 2.50 and potassium was 3.1 which was replaced Renal failure has been getting better with IV fluid at the same time getting edema IV fluid will be stopped following ERCP today Kidney function has been stable with slightly worsening creatinine today (5) Acute pancreatitis: Plan: Intra-abdominal fluid collection as below: CT abdomen and pelvis without contrast on admission noted redemonstration of severe acute pancreatitis similar to 12/31/2022, CBD stent in satisfactory position, unchanged position of right subhepatic percutaneous drainage, bilateral nephrolithiasis without ureteral calculi or hydronephrosis, moderate left pleural effusion increased in size with left basilar consolidation suggestive of atelectasis, increased amount of abdominal left upper quadrant ascites Repeat CT of the abdomen pelvis showed: 01/21/2023 1. Severe acute pancreatitis is similar appearance to the 01/15/2023 exam with persistent acute peripancreatic fluid collections. 2. Prior cholecystectomy with decreased size of the air and fluid-filled structure within the tima hepatis. 3. Common bile duct stent in place with persistent pneumobilia. 4. Unchanged positioning of the right subhepatic percutaneous drainage catheter. 5. Increased amount of abdominopelvic ascites, notably surrounding the spleen with new perisplenic hemorrhage. 6. Bilateral nephrolithiasis. 7. Moderate left pleural effusion with left basilar consolidation. 8. Additional findings as above. We will continue with current antibiotic and pain medications Repeat CT scan of the abdomen pelvis showed increasing fluid collection around pancreas and also perisplenic area Discussed with the daughter and the for possible transfer to tertiary care center to perform IR procedures down the line Has acute necrotic pancreatitis with peripancreatic fluid collections-not amenable to drainage as per IR Status post ERCP/EUS and placement of new drainage on 01/24/2023 has been draining normally as per GI Repeat CT abdomen pelvis showed: IMPRESSION: 1. The spleen is irregular and diminutive suggesting splenic injury. A perisplenic fluid collection/hematoma has decreased in size from 01/23/2023. 2. An air/contrast level in the gallbladder fossa is likely related to cystic duct leak when compared to the recent ERCP images. 3. A loculated fluid collection around the lateral segment of the left lobe of the liver has increased in size from 01/23/2023. 4. Abdominal ascites has modestly increased from 01/23/2023. 5. Again seen is evidence of acute pancreatitis. Inflammatory change has modestly improved from previous. 6. A fluid collection in the pancreatic neck could represent focal necrosis or developing pseudocyst. 7. Common bile duct stents are in place. Pneumobilia suggests patency. 8. Moderate left and trace right pleural effusions with dependent consolidation. 9. Bilateral nephrolithiasis. 10. Additional findings as above. Will have ultrasound-guided tube placement to drain more fluid from the above areas-discussed with the hemotherapist Plan s/p ERCP with bile duct stent exchange. Bile leak was noted intraoperatively. New transcutaneous drain in place draining into colostomy bag. She is recovering well, slightly lethargic. Continues with therapy with plans for rehab. As above Nutritional status She has not been eating or drinking enough Discussed with the GI and plan to put coresafe and start tube feeding PPN has been started and also will encourage oral intake Other significant medical condition as below Paroxysmal atrial fibrillation-rate is controlled and has been on Eliquis Depression-seems to be stable and Multiple sclerosis-she has been moving all of her extremities though has weakness in the legs. Has been bedbound for the last 1 month DVT ppx- apixaban -on hold due to splenic hemorrhage as above Full code Dispo-awaiting Detailed discussion with the daughter Explained current situation beginning from first admission to the hospital Answered all of their questions Discussed about partial cholecystectomy and the drainage in the gallbladder area with biliary leakage Discussed about ERCP/EUS that was done on of this month Discussed about peripancreatic fluid collection and also splenic area fluid collection/hemorrhage And also discussed about possible transfer to tertiary care center if needed and is accepted by an accepting physician Discussed with the Admission and Anticipated Discharge Date Admission Date: January 15, 2023 Subjective 01/21/2023 The patient was seen and examined in telemetry unit in presence of the She has been complaining of more abdominal pain today without any nausea and or vomiting Denies any fever and or chills Denies any shortness of breath 01/22/2023 The patient was seen and examined in telemetry unit in presence of the She remains weak and lethargic but does not have any more abdominal pain at rest Her vitals remained stable and her hemoglobin has not changed 01/23/2023 The patient was seen and examined in telemetry unit in presence of the She remains stable and does not complain of any increasing pain She could not tolerate coresef tube yesterday Minimal intake orally 01/24/2023 Patient was seen and examined in telemetry unit in presence of the She will be going for ERCP/EUS this afternoon Remains stable and denies any significant pain 01/25/2023 The patient was seen and examined in telemetry unit in presence of the daughter She has been weak and lethargic and has not been showing any progress Has had ERCP/EUS and placement of biliary stent and external drainage 01/26/2023 The patient was seen and examined in telemetry unit She has been stable and the blood pressure has been running on the lower side Denies any fever and or chills Abdominal pain is decreased Review of Systems Review of Systems: All systems reviewed and are unremarkable except as noted below Physical Exam Physical Exam: Lying in bed without any acute distress but remains very weak and lethargic Constitutional: well developed, well nourished, + ill appearing and + obese Eyes: PERRL, conjunctivae normal, anicteric sclerae ENMT: external ear and nose normal, oropharynx normal Neck: trachea midline, no thyromegaly Respiratory: no respiratory distress Auscultation: + diminished lung sounds and + crackles (Minimal crackles left base) Cardiovascular: Rate/Rhythm: regular rate, regular rhythm and + tachycardic Heart Sounds: normal S1 and normal S2; no murmur Extremities: + edema (Trace edema bilaterally) Gastrointestinal (Abdomen): Inspection/Auscultation: + abdomen distended and normal bowel sounds Percussion/Palpation: + abdomen tender and abdomen soft Neurologic: normal touch/pain/proprioception and moves all extremities; no focal motor deficits Psychiatric: A+Ox3, euthymic affect Lymphatic: no cervical or axillary lymphadenopathy Results & Data Results & Data Vital Signs (Past 12 Hours) Vital Signs Temp Pulse Pulse Resp BP Pulse Ox O2 Del Method 01/26/23 11:57 92 H 18 125/76 98 Room Air 01/26/23 09:53 Room Air 01/26/23 07:16 99 H 01/26/23 07:05 36.1 C L 101 H 20 97/71 L 98 Room Air 01/26/23 03:38 36.5 C 107 H 22 100/61 97 Room Air Laboratory Results Short CBC 01/26/23 Range/Units 05:47 WBC 29.60 H (4.8-10.8) K/ul Hgb 8.8 L (12.0-16.0) g/dl Hct 27.3 L (37.0-47.0) % Plt Count 417 H (130-400) K/uL BMP 01/26/23 05:47 Sodium 141 Potassium 3.4 L Chloride 110 H Carbon Dioxide 16 L BUN 52 H Creatinine 2.50 H Glucose 176 H Calcium 7.4 L Liver Function 01/26/23 Range/Units 05:47 Total Bilirubin 0.4 (0.2-1.0) mg/dl AST 20 (13-39) U/L ALT 11 (7-52) U/L Alkaline Phosphatase 97 (34-104) U/L Albumin 1.8 L (3.4-5.0) gm/dl Medications Administered Current Inpatient Medications Acetaminophen (Acetaminophen 325 Mg Tab) 650 mg PO Q6 PRN PRN Reason: Fever Or MILD Pain Stop: 02/14/23 23:34 Last Admin: 01/25/23 21:45 Dose: 650 mg Amiodarone HCl (Amiodarone 200 Mg Tab) 200 mg PO QAM [facility]ANDANA Stop: 02/22/23 06:59 Last Admin: 01/26/23 08:51 Dose: 200 mg Apixaban (Apixaban 5 Mg Tablet) 5 mg PO BID VANDANA Stop: 02/15/23 08:59 Last Admin: 01/21/23 08:05 Dose: 5 mg Calamine/Phenol (Menthol-Zinc Oxide 360 Appln/120 Gm Tube) 1 appln EXT TID VANDANA Stop: 02/15/23 08:59 Last Admin: 01/26/23 13:32 Dose: 1 appln Dextrose (Dextrose 50% 50 Ml Syringe) 25 - 50 ml IV UD PRN; Protocol PRN Reason: Hypoglycemia Protocol Stop: 02/15/23 08:04 Glucagon (Glucagon For Inj 1 Mg Vial) 1 mg SQ UD PRN; Protocol PRN Reason: Hypoglycemia Protocol Stop: 02/15/23 08:04 Glucose (Glucose 40% Gel 15 Gm Tube) 15 - 30 gm PO UD PRN; Protocol PRN Reason: Hypoglycemia Protocol Stop: 02/15/23 08:04 Glucose (Glucose 10 Tab/Tube) 4 - 8 tab PO UD PRN; Protocol PRN Reason: Hypoglycemia Treatment Stop: 02/15/23 08:04 Daptomycin 425 mg/ Syringe 8.5 mls @ 4.25 mls/min IV Q48H [facility]ANDANA; Protocol Stop: 02/04/23 08:59 Dextrose (D10w) 1,000 mls @ 0 mls/hr IV .Q0M PRN PRN Reason: protocol (see label comments) Stop: 02/24/23 15:27 Piperacillin Sod/Tazobactam (Sod 4.5 gm/ Dextrose) 120 mls @ 30 mls/hr IV Q8H [facility]ANDANA; Protocol Stop: 02/05/23 08:14 Last Infusion: 01/26/23 12:56 Dose: Infused Fat Emulsion-[place] Oil/Soybean Oil (Clinolipid 20% Iv Fat Emulsion) 250 mls @ 41.667 mls/hr IV .Q6H [facility]NA Stop: 01/26/23 21:59 Amino Acids 1,798 ml/ (Nutrition (Parenteral)) 1,798 mls @ 74.9 mls/hr IV .Q24H [facility]; Protocol Stop: 01/27/23 15:59 Insulin Aspart (Insulin Aspart Per Unit Charge) 0 units SC Q4 [facility] Stop: 02/18/23 20:59 Last Admin: 01/26/23 11:59 Dose: 1 units Magnesium Oxide (Magnesium Oxide 400 Mg Tab) 400 mg PO QAM [facility] Stop: 02/15/23 08:59 Last Admin: 01/26/23 08:51 Dose: 400 mg Methimazole (Methimazole 5 Mg Tablet) 5 mg PO DAILY [facility] Stop: 02/15/23 08:59 Last Admin: 01/26/23 08:51 Dose: 5 mg Miscellaneous (Carbohydrates For Hypoglycemia ) 15 - 30 gm PO UD PRN PRN Reason: Hypoglycemia Protocol Stop: 02/15/23 08:04 Miscellaneous (Stop Clinolipid) 1 each N/A TODAY@22 [facility] Stop: 01/26/23 22:01 Miscellaneous Information (Tpn/Ppn Consult Pharmacy) 1 each N/A UD PRN PRN Reason: Consult Stop: 02/25/23 08:39 Sertraline HCl (Sertraline Hcl 50 Mg Tablet) [facility] [place]: 02/15/23 08:59 Last Admin: 01/26/23 08:51 Dose: 50 mg (5) Acute pancreatitis Acute pancreatitis complication: unspecified Pancreatitis type: unspecified pancreatitis type Qualified Code(s): K85.90 - Acute pancreatitis without necrosis or infection, unspecified
--- NOTE | 2023-01-26 14:57 | Infectious Disease Progress Nt ---
Date of Service January 26, 2023 Assessment & Plan (1) Pancreatitis: (2) Bile leak from gallbladder bed: Plan 72 yo F with history of obesity, HTN, anxiety, chronic neurogenic bladder, osteoporosis, MS, recent admission (12/09 - 01/12) for acute gallstone pancreatitis s/p ERCP with stent placement and subtotal laparoscopic cholecystectomy c/b bile leak with MIMI drain placement and Pseudomonas/Enterococcus UTI discharged on levofloxacin, who presented on 01/15 with back/abdominal pain, hypotension requiring pressors, leukocytosis to 34, found to have continued pancreatitis and peripancreatic fluid collections, bile leak. Pt was started on Zosyn. Hospital course has been complicated by continued bile leak s/p ERCP with stent on 01/19 and 01/24, continued intra- abdominal/peripancreatic collections s/p IR drain into RUQ on 01/26, persistent leukocytosis. 01/15: CT A/P (without contrast) showed severe acute pancreatitis, peripancreatic fluid collections, new 3.4 cm fluid attenuating structure within LUQ, possibly loculated ascites vs acute peripancreatic fluid collection, air and fluid-filled structure again noted in tima hepatis, possibly representing residual gallbladder vs postop fluid collection, unchanged positioning of R subhepatic percutaneous drainage catheter. Started on Zosyn. 01/16: surgery manipulated the RUQ MIMI drain, with improvement in drainage. 01/17: weaned off pressors. 01/18: HIDA scan showed bile leak and possible CBD obstruction. RUQ MIMI drainage sent for culture, growing probable Enterococcus. 01/19: ERCP showed bile leak, and biliary duct stent exchanged. 01/21: pt with increased abd pain. A repeat CT A/P without contrast showed similar severe acute pancreatitis, mildly increased ascites, increased fluid surrounding spleen with new splenic hemorrhage, increased size of peripancreatic fluid collections: adjacent to pancreatic head 2.5 cm --> 3.6 cm, and LUQ 3.5 cm --> 3.9 cm. 01/23: repeat CT A/P wo contrast showed severe pancreatitis with suspected underlying necrosis. Multiple pancreatic and peripancreatic fluid collections. Increased loculated fluid collection along lateral liver measuring 9.1 x 7.5 cm. Increased loculated fluid along stomach with mass effect. Increased perisplenic fluid collection/hemorrhage. 01/24: ERCP showed bile leak. Fibrin glue injected in cystic duct. Stent exchanged to longer covered metal stent, and two plastic biliary stents placed. 01/25: Hypotension in AM, but resolved within a couple hours. Empiric daptomycin added. 01/26: CT abd without contrast showed loculated fluid collection around liver increased in size (11 x 10.5 cm), perisplenic fluid collection decreased in size (14 x 6.5 cm), acute pancreatitis with modest improvement in inflammatory change, fluid collection in pancreatic neck could represent focal necrosis or developing pseudocyst. IR placed drain into perihepatic collection, removed ~200 cc brownish fluid, culture pending. Perisplenic collection was not aspirated due to concern for bleeding. Problems: #Peripancreatic fluid collections #Acute gallstone pancreatitis s/p ERCP with stent placement, subtotal lap adele c/b bile leak with MIMI drain placement (12/10/22) with persistent bile leak s/p ERCP and stent placement 01/19, 01/24 #Splenic hemorrhage #SAMMY: required temporary HD last admission #Decubitus ulcers #Atelectasis vs PNA Abx: Daptomycin 01/25 - Zosyn 01/15 - present Vanc 01/15 - 01/17 Recommendations: -Follow-up 01/26 IR drainage culture -Follow-up 01/18 MIMI drain Enterococcus species. Enterococcus is often found in polymicrobial intra-abdominal infections, with questionable pathogenicity vs co lonization. -Continue daptomycin, pip-tazo for now -Follow clinically, and likely repeat CT abdomen next week to follow intra- abdominal collections Discussed with primary team. Will continue to follow. Please note that there will be no ID notes over the weekend. If questions or concerns arise, please contact the Infectious Disease Call Center and ask to speak with the covering ID physician. Dr. Karen Gannon will take over on Sunday. Admission and Anticipated Discharge Date Admission Date: January 15, 2023 Subjective This patient recommendation is based on a telemedicine consult request which was completed asynchronously through chart review and information provided by the primary physician. The patient was not seen or examined today. The evaluation is consultative in nature and all patient care and treatment decisions can either be accepted or rejected by the patient's primary hospital-based treating physician using their own independent medical judgment for their patient. Time Spent Reviewing Chart: 21 - 30 minutes -Afebrile -WBC increased to 29.6 today -Repeat CT abd without contrast today showed loculated fluid collection around liver increased in size to 11 x 10.5 cm, perisplenic fluid collection decreased in size, acute pancreatitis with modest improvement in inflammatory change, fluid collection in pancreatic neck could represent focal necrosis or developing pseudocyst -IR placed drain into perihepatic collection this AM, and removed ~200 cc brownish fluid Review of System pt not seen Physical Exam Physical Exam: pt not seen Results & Data Vital Signs (Past 12 Hours) Vital Signs Temp Pulse Pulse Resp BP Pulse Ox O2 Del Method 01/26/23 11:57 92 H 18 125/76 98 Room Air 01/26/23 09:53 Room Air 01/26/23 07:16 99 H 01/26/23 07:05 36.1 C L 101 H 20 97/71 L 98 Room Air 01/26/23 03:38 36.5 C 107 H 22 100/61 97 Room Air Laboratory Results Short CBC 01/26/23 Range/Units 05:47 WBC 29.60 H (4.8-10.8) K/ul Hgb 8.8 L (12.0-16.0) g/dl Hct 27.3 L (37.0-47.0) % Plt Count 417 H (130-400) K/uL BMP 01/26/23 05:47 Sodium 141 Potassium 3.4 L Chloride 110 H Carbon Dioxide 16 L BUN 52 H Creatinine 2.50 H Glucose 176 H Calcium 7.4 L Liver Function 01/26/23 Range/Units 05:47 Total Bilirubin 0.4 (0.2-1.0) mg/dl AST 20 (13-39) U/L ALT 11 (7-52) U/L Alkaline Phosphatase 97 (34-104) U/L Albumin 1.8 L (3.4-5.0) gm/dl Diagnostic Findings Abdomen CT 01/26/23 07:20 CT SCAN OF THE ABDOMEN WITHOUT IV CONTRAST CLINICAL HISTORY: Intra-abdominal fluid collections. COMPARISON STUDY: Abdominal CT dated 01/23/2023. TECHNIQUE: CT scan of the abdomen is performed from the lung bases to the pelvic inlet. Images are reviewed in the axial, sagittal, and coronal planes. IV contrast was not administered for this examination. Note that the examination was performed in significantly suboptimal fashion without oral and IV contrast. A dose lowering technique was utilized adhering to the principles of ALARA. CT DOSE: 645.56 mGy.cm FINDINGS: Lung bases: The heart is normal in size and without pericardial effusion. There are coronary artery calcifications. There is a moderate left pleural effusion with left basilar consolidation. There is trace right pleural effusion with dependent atelectasis. Groundglass opacities are noted in the lingula. Liver: The unenhanced liver is normal in size, contour, and attenuation. There is no intrahepatic biliary ductal dilatation. Pneumobilia is observed. A loculated fluid collection around the lateral segment of the left lobe has increased in size from 01/23/2023. This now measures 11 x 10.5 cm (previously measured 9 x 7.5 cm). Gallbladder: The gallbladder is surgically absent. Common bile duct stents are in place. Spleen: The spleen is irregular and diminutive suggesting splenic injury. Again seen is a perisplenic fluid collection with hyperdense foci indicating hemorrhage. The perisplenic fluid collection has decreased in size from 01/23/2023, now measuring approximately 14 x 6.5 cm (previously measured 15 x 8.5 cm). Pancreas: The pancreas is edematous with surrounding inflammation. Inflammation appears modestly improved from 01/23/2023. There is a fluid collection in the region of the pancreatic neck seen on image #179. This measures 3.1 x 2.4 cm and could represent focal necrosis versus pseudocyst. The distal pancreas appears heterogeneous. The duct is grossly unremarkable as seen on this unenhanced examination. Adrenal glands: Unremarkable. Kidneys: The unenhanced kidneys demonstrate mild cortical atrophy and are without hydronephrosis. There are at least 5 nonobstructing left renal calculi which measure up to 12 mm. There are at least 7 nonobstructing right renal calculi which measure up to 13 mm. No stones are seen in the proximal ureters. There is no evidence of contour deforming renal mass lesion. Abdominal vasculature: The abdominal aorta is normal in course and caliber noting mild atherosclerotic calcification. Bowel: Imaged portions of the bowel show no evidence of obstruction. Enteric contrast is noted in the right colon. Peritoneum: A percutaneous catheter from a right lower quadrant approach is terminates just below the gallbladder fossa. There is an air contrast level in the gallbladder fossa. This is likely related to recent ERCP and indicates cystic duct leak. There is a small volume of partially loculated abdominal ascites. No intraperitoneal free air is identified. See above under liver and spleen for discussion of surrounding fluid collection. Lymphadenopathy: None. Skeletal structures: The skeletal structures are osteopenic. No lytic or blastic lesions are seen. Soft tissues: There is body wall edema. IMPRESSION: 1. The spleen is irregular and diminutive suggesting splenic injury. A perisplenic fluid collection/hematoma has decreased in size from 01/23/2023. 2. An air/contrast level in the gallbladder fossa is likely related to cystic duct leak when compared to the recent ERCP images. 3. A loculated fluid collection around the lateral segment of the left lobe of the liver has increased in size from 01/23/2023. 4. Abdominal ascites has modestly increased from 01/23/2023. 5. Again seen is evidence of acute pancreatitis. Inflammatory change has modestly improved from previous. 6. A fluid collection in the pancreatic neck could represent focal necrosis or developing pseudocyst. 7. Common bile duct stents are in place. Pneumobilia suggests patency. 8. Moderate left and trace right pleural effusions with dependent consolidation. 9. Bilateral nephrolithiasis. 10. Additional findings as above. ACT 112: Negative or not required by law. Electronically signed by: Chidi Garay M.D. 01/26/2023 8:23 AM Drainage Catheter Insertion 01/26/23 10:23 ULTRASOUND-GUIDED PERIHEPATIC FLUID COLLECTION DRAIN PLACEMENT CLINICAL HISTORY: Perihepatic complex fluid collection PROCEDURE: Procedure and risks were explained. Informed consent was obtained. A final timeout was completed. The anterior abdomen was prepped and draped in sterile fashion. 1% buffered lidocaine was utilized for skin anesthesia. Utilizing ultrasound guidance, an 18-gauge 10 cm Chiba needle was advanced into the perihepatic complex fluid collection. A 0.035 Amplatz wire was introduced through the needle and exchanged for a 10 [place] skater pigtail catheter. Approximately 200 mL of brownish fluid was removed at the time of the procedure with a portion sent to the lab for analysis. The pigtail catheter was sutured to the skin with 2-0 silk and placed to suction bag drainage. The patient tolerated the procedure well. Vital signs we monitored on the floor. IMPRESSION: Ultrasound-guided perihepatic fluid collection drain placement as above. Performed, dictated, and signed by Xu Manrique PA-C; to be co-signed by Dr. Chidi Garay. Electronically signed by: Chidi Garay M.D. 01/26/2023 1:01 PM Medications Administered Current Inpatient Medications Acetaminophen (Acetaminophen 325 Mg Tab) 650 mg PO Q6 PRN PRN Reason: Fever Or MILD Pain Stop: 02/14/23 23:34 Last Admin: 01/25/23 21:45 Dose: 650 mg Amiodarone HCl (Amiodarone 200 Mg Tab) 200 mg PO QAM VANDANA Stop: 02/22/23 06:59 Last Admin: 01/26/23 08:51 Dose: 200 mg Apixaban (Apixaban 5 Mg Tablet) 5 mg PO BID [facility] Stop: 02/15/23 08:59 Last Admin: 01/21/23 08:05 Dose: 5 mg Calamine/Phenol (Menthol-Zinc Oxide 360 Appln/120 Gm Tube) 1 appln EXT TID VANDANA Stop: 02/15/23 08:59 Last Admin: 01/26/23 13:32 Dose: 1 appln Dextrose (Dextrose 50% 50 Ml Syringe) 25 - 50 ml IV UD PRN; Protocol PRN Reason: Hypoglycemia Protocol Stop: 02/15/23 08:04 Glucagon (Glucagon For Inj 1 Mg Vial) 1 mg SQ UD PRN; Protocol PRN Reason: Hypoglycemia Protocol Stop: 02/15/23 08:04 Glucose (Glucose 40% Gel 15 Gm Tube) 15 - 30 gm PO UD PRN; Protocol PRN Reason: Hypoglycemia Protocol Stop: 02/15/23 08:04 Glucose (Glucose 10 Tab/Tube) 4 - 8 tab PO UD PRN; Protocol PRN Reason: Hypoglycemia Treatment Stop: 02/15/23 08:04 Daptomycin 425 mg/ Syringe 8.5 mls @ 4.25 mls/min IV Q48H VANDANA; Protocol Stop: 02/04/23 08:59 Dextrose (D10w) 1,000 mls @ 0 mls/hr IV .Q0M PRN PRN Reason: protocol (see label comments) Stop: 02/24/23 15:27 Piperacillin Sod/Tazobactam (Sod 4.5 gm/ Dextrose) 120 mls @ 30 mls/hr IV Q8H VANDANA; Protocol Stop: 02/05/23 08:14 Last Infusion: 01/26/23 12:56 Dose: Infused Fat Emulsion-[place] Oil/Soybean Oil (Clinolipid 20% Iv Fat Emulsion) 250 mls @ 41.667 mls/hr IV .Q6H [facility] Stop: 01/26/23 21:59 Amino Acids 1,798 ml/ (Nutrition (Parenteral)) 1,798 mls @ 74.9 mls/hr IV .Q24H [facility]; Protocol Stop: 01/27/23 15:59 Insulin Aspart (Insulin Aspart Per Unit Charge) 0 units SC Q4 [facility] Stop: 02/18/23 20:59 Last Admin: 01/26/23 11:59 Dose: 1 units Magnesium Oxide (Magnesium Oxide 400 Mg Tab) 400 mg PO QAM [facility] Stop: 02/15/23 08:59 Last Admin: 01/26/23 08:51 Dose: 400 mg Methimazole (Methimazole 5 Mg Tablet) 5 mg PO DAILY [facility] Stop: 02/15/23 08:59 Last Admin: 01/26/23 08:51 Dose: 5 mg Miscellaneous (Carbohydrates For Hypoglycemia ) 15 - 30 gm PO UD PRN PRN Reason: Hypoglycemia Protocol Stop: 02/15/23 08:04 Miscellaneous (Stop Clinolipid) 1 each N/A TODAY@22 [facility] Stop: 01/26/23 22:01 Miscellaneous Information (Tpn/Ppn Consult Pharmacy) 1 each N/A UD PRN PRN Reason: Consult Stop: 02/25/23 08:39 Sertraline HCl (Sertraline Hcl 50 Mg Tablet) [facility] [place] Stop: 02/15/23 08:59 Last Admin: 01/26/23 08:51 Dose: 50 mg
[2023-01-26] MEDS ORDERED: CLINOLIPID 20% IV FAT EMULSION 250 ML IV SCH (16:00)
[2023-01-26] MEDS ORDERED: PERIPHERAL TPN IV SCH (16:00)
[2023-01-26] MEDS ORDERED: [UNRECOGNIZED DRUG - OTHER] IV SCH (16:00)
--- NOTE | 2023-01-26 17:38 | Surgery Progress Note ---
Date of Service January 26, 2023 Assessment & Plan (1) Pancreatitis: Plan: Of interest- We checked the amylase level and lipase level on the fluid recovered today from the upper abdomen The amylase level is greater than 3000, the lipase level is greater than 20,000 We discussed this with the GI team but I think this likely indicates the fluid is from her pancreatitis Cultures are pending-fluid did not appear to be purulent nor did it look like bile Admission and Anticipated Discharge Date Admission Date: January 15, 2023 Results & Data Vital Signs (Past 12 Hours) Vital Signs Temp Pulse Pulse Resp BP Pulse Ox O2 Del Method 01/26/23 14:55 36.1 C L 87 24 114/79 97 Room Air 01/26/23 14:54 88 01/26/23 11:57 92 H 18 125/76 98 Room Air 01/26/23 09:53 Room Air 01/26/23 07:16 99 H 01/26/23 07:05 36.1 C L 101 H 20 97/71 L 98 Room Air PG Care Time/CCT Total # of Minutes Spent Total Time Spent with Patient: Total time spent is greater than 50% in coordination of care (as documented) at patient's floor/unit and/or counseling patient: Coding Level of Care Code None Diagnoses Pancreatitis K85.90
[2023-01-26] MEDS ORDERED: STOP CLINOLIPID SCH (22:00)
[2023-01-27] MEDS: PIPERACILLIN/TAZOBACTAM 4.5 GM in DEXTROSE 5% 100 ML IV SCH ×3 (00:26→16:12)
[2023-01-27] MEDS: INSULIN ASPART PER UNIT CHARGE SC SCH ×6 (00:32→20:23)
[2023-01-27 07:57] LABS: BUN Creatinine Ratio 22.6 (10-20); Calcium 7.5 mg/dl (8.6-10.3); Creatinine Clr Calc Pharmacy 21.6 ml/min; Est GFR (African American) 20.3 ml/min; Est GFR (Non-African American) 17.5 ml/min; Phosphorus 5.1 mg/dl (2.5-4.9); Potassium 3.4 mmol/L (3.5-5.1)
[2023-01-27] MEDS: methIMAzole 5 MG TABLET PO SCH (08:09)
[2023-01-27] MEDS: AMIODARONE 200 MG TAB PO SCH (08:09)
[2023-01-27] MEDS: SERTRALINE HCL 50 MG TABLET PO SCH (08:10)
[2023-01-27] MEDS: MAGNESIUM OXIDE 400 MG TAB PO SCH (08:11)
--- NOTE | 2023-01-27 08:32 | Surgery Progress Note ---
Date of Service January 27, 2023 Assessment & Plan (1) Pancreatitis: Plan: No acute changes Brown serous drainage from the left drain approximately 300 cc since placed Very high amylase and lipase levels indicating fluid likely related to pancreatitis Culture shows WBCs but no growth so far Minimal to no drainage from the right upper quadrant MIMI drain-we will likely DC soon Patient now on parenteral nutrition Admission and Anticipated Discharge Date Admission Date: January 15, 2023 Results & Data Vital Signs (Past 12 Hours) Vital Signs Temp Pulse Pulse Resp BP Pulse Ox O2 Del Method 01/27/23 07:33 36.4 C L 93 H 17 124/78 97 Room Air 01/26/23 22:00 92 H 01/27/23 03:14 36.4 C L 92 H 20 111/52 L 93 Room Air 01/26/23 23:00 36.4 C L 93 H 20 123/79 95 Room Air PG Care Time/CCT Total # of Minutes Spent Total Time Spent with Patient: Total time spent is greater than 50% in coordination of care (as documented) at patient's floor/unit and/or counseling patient: Coding Level of Care Code None Diagnoses Pancreatitis K85.90
[2023-01-27] MEDS: MENTHOL-ZINC OXIDE 360 APPLN/120 GM TUBE EXT SCH ×3 (09:00→20:23)
[2023-01-27] MEDS: DAPTOmycin 425 MG in SYRINGE 0 ML IV SCH (10:09)
--- NOTE | 2023-01-27 10:50 | Nephrology Progress Note ---
Date of Service January 27, 2023 Assessment & Plan Admission and Anticipated Discharge Date Admission Date: January 15, 2023 Subjective Assessment & Plan (1) Acute renal failure: Plan: nonoliguric ischemic ATN Her baseline creatinine as recently as the middle of last month was actually 0.9. During mid November to mid December extended admission for cholangitis and panc reatitis with complications, she had acute renal failure requiring several treatments of intermittent hemodialysis, with last treatment January 01. Her renal function recovered sufficiently to stop hemodialysis. Her discharge creatinine was 1.8 on January 12. Her presenting creatinine this admission on January 15 was 2 and for last 1 week 2.4 to 2.7 has edema and ascites and pl effusion but also has Alb of 1.8------no need of iv fluids even though creat up a bit from yesterday. No low BP overnight which is good. No lasix today but she does have e/o Fluid overload. But she is not SOB and On Room air and barely eating so will skip lasix Continue to monitor renal function with daily BMP Avoid nephrotoxins Subjective Seen for acute kidney injury. Patient has required dialysis in the previous admission. Urine amount not a lot--no catalan though. No shortness of breath and on RA.Legs are slightly swollen. Review of Systems Review of Systems: All other systems were reviewed and negative except as noted in HPI Physical Exam Physical Exam: General exam: Appears comfortable, no acute distress HEENT: Pupils are equal and reactive to light Neck: No JVD, neck is supple trachea is midline Respiratory system: crackles bilaterally. Gastrointestinal: Abdomen is soft, non distended, non tender, bowel sounds are present CVS: Regular rate and rhythm. No murmurs, rubs or gallops Musculoskeletal: No joint or muscle tenderness Extremities: Non tender, 1+ edema, peripheral pulses are present Neuro: Oriented, no tremors, no focal neurological deficits Skin: No rashes Results & Data Vital Signs (Past 12 Hours) Vital Signs Temp Pulse Pulse Resp BP Pulse Ox O2 Del Method 01/27/23 10:45 90 01/27/23 07:33 36.4 C L 93 H 17 124/78 97 Room Air 01/27/23 03:14 36.4 C L 92 H 20 111/52 L 93 Room Air 01/26/23 23:00 36.4 C L 93 H 20 123/79 95 Room Air
--- NOTE | 2023-01-27 12:56 | Hospitalist Progress Note ---
Date of Service January 27, 2023 Assessment & Plan (1) Septic shock: Plan: Patient was recently hospitalized for about a month during which she was managed for acute pancreatitis, acute cholangitis, septic shock, acute renal failure requiring dialysis briefly, paroxysmal A-fib. Underwent ERCP on 12/10 with removal of stones from the bile duct. Underwent lap adele with extensive lysis of adhesions on 12/10 by general surgery. Was discharged to [facility] facility and represented with abdominal and back pain. Labs on presentation showed worsening leukocytosis, worsening renal function and has been hypotensive. Being managed for septic shock.Was on Levophed which was weaned off around 5pm today (01/17). Sources of sepsis include possible intra-abdominal infection considering recent severe pancreatitis, surgical subhepatic drain in situ, recent UTI. Acute on chronic pancreatitis Intra-abdominal fluid collection-biliary leak, necrotic pancreatitis Continue on Zosyn for now after stent exchange performed by GI Initial ID consultation was done on 01/18/2023 and repeat follow-up will be done on 01/22/2023 Has pleural effusion (left) on CT abd/pelvis. Not in resp distress but she does have a slight cough. Appreciate ID input and recommendation to continue intravenous Zosyn for now New intra-abdominal collection is growing Enterococcus and daptomycin was added to cover possible VRE 01/21/2023 Complaining of more abdominal pain though the white count has been improving CT of the abdomen and pelvis showed severe acute pancreatitis as on 01/15/2023 and a new perisplenic hemorrhage We will continue with current pain medications and hold Eliquis Hemoglobin did not drop and the pain is controlled Discussed with the surgeon, GI and IR facility over [facility] and plan is to repeat the scan tomorrow any [facility] fluid colle ction/hemorrhage is increasing the patient will be transferred to tertiary care center for definitive drainage Discussed with the family members about this measure Repeat scan today showed: Increasing fluid collection as below 1. Findings consistent with severe acute pancreatitis. 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 2. Perisplenic hemorrhage, stable to slightly increased since prior CT. The perisplenic fluid collection has increased in size since prior CT. Irregularity of the spleen consistent with splenic injury. 3. Increase in size of perihepatic and perigastric fluid collections with mass effect upon the stomach. The perihepatic fluid collection could be related to a bile leak or acute pancreatitis. 4. Increase in gas within the cholecystectomy bed. This is nonspecific given indwelling surgical drain and common bile duct stent however a persistent biliary leak cannot be excluded. 5. No significant change in a moderate left pleural effusion with left lower lobe atelectasis. 6. Slight increase in small to moderate pelvic ascites. Discussed with the general surgery, ID specialist and informed her about ER CP/EUS tomorrow IV fluid was discontinued after EUS Condition remains stable Intra-abdominal fluid collections; as below Perisplenic fluid collection with possible bleeding from the spleen We will monitor-most recent CT of the abdomen and pelvis did show a decrease in perisplenic fluid/hemorrhage Discussed with the GI-epigastric and peripancreatic fluid collections will be drained with a larger drainage tube today that is for 01/26/2023 Patient remains critically stable Status post ultrasound guided perihepatic fluid aspiration and placement of drain Fluid study shows amylase of 3724 and lipase of 20,040-likely secondary to chronic pancreatitis Still draining and this morning I checked the collection he does more than 300 mL-microbiology has been negative so far. Prior fluid studies showed probable Enterococcus and further identification pending Has been on TPN and oral sepsis on top of that Getting intravenous Zosyn and daptomycin was added on (2) Hyperthyroidism: Plan: Patient on methimazole which is known to have a side effect of pancreatitis. However, will cont for now as this pancreatitis is improved clinically and there are more likely causes/contributing factors. (3) Pleural effusion, left: Plan: hopeful this will improve after stent exchange and with time and movement. If no improvement, may need to consider thoracentesis. Repeat CT showed moderate left pleural effusion as before (4) Acute renal failure: Plan: Worsening renal function in setting of septic shock, around 2.6. Recent temporary dialysis last month which she is off of now. Nephro following. Creat appears stable although still worse than her baseline. Creatinine is little bit better today at 2.50 and potassium was 3.1 which was replaced Renal failure has been getting better with IV fluid at the same time getting edema IV fluid will be stopped following ERCP today Kidney function has been stable with slightly worsening creatinine today Kidney function remains stable but a little worse compared with yesterday (5) Acute pancreatitis: Plan: Intra-abdominal fluid collection as below: CT abdomen and pelvis without contrast on admission noted redemonstration of severe acute pancreatitis similar to 12/31/2022, CBD stent in satisfactory position, unchanged position of right subhepatic percutaneous drainage, bilateral nephrolithiasis without ureteral calculi or hydronephrosis, moderate left pleural effusion increased in size with left basilar consolidation suggestive of atelectasis, increased amount of abdominal left upper quadrant ascites Repeat CT of the abdomen pelvis showed: 01/21/2023 1. Severe acute pancreatitis is similar appearance to the 01/15/2023 exam with persistent acute peripancreatic fluid collections. 2. Prior cholecystectomy with decreased size of the air and fluid-filled structure within the tima hepatis. 3. Common bile duct stent in place with persistent pneumobilia. 4. Unchanged positioning of the right subhepatic percutaneous drainage catheter. 5. Increased amount of abdominopelvic ascites, notably surrounding the spleen with new perisplenic hemorrhage. 6. Bilateral nephrolithiasis. 7. Moderate left pleural effusion with left basilar consolidation. 8. Additional findings as above. We will continue with current antibiotic and pain medications Repeat CT scan of the abdomen pelvis showed increasing fluid collection around pancreas and also perisplenic area Discussed with the daughter and the for possible transfer to tertiary care center to perform IR procedures down the line Has acute necrotic pancreatitis with peripancreatic fluid collections-not amenable to drainage as per IR Status post ERCP/EUS and placement of new drainage on 01/24/2023 has been draining normally as per GI Repeat CT abdomen pelvis showed: IMPRESSION: 1. The spleen is irregular and diminutive suggesting splenic injury. A perisplenic fluid collection/hematoma has decreased in size from 01/23/2023. 2. An air/contrast level in the gallbladder fossa is likely related to cystic duct leak when compared to the recent ERCP images. 3. A loculated fluid collection around the lateral segment of the left lobe of the liver has increased in size from 01/23/2023. 4. Abdominal ascites has modestly increased from 01/23/2023. 5. Again seen is evidence of acute pancreatitis. Inflammatory change has modestly improved from previous. 6. A fluid collection in the pancreatic neck could represent focal necrosis or developing pseudocyst. 7. Common bile duct stents are in place. Pneumobilia suggests patency. 8. Moderate left and trace right pleural effusions with dependent consolidation. 9. Bilateral nephrolithiasis. 10. Additional findings as above. Will have ultrasound-guided tube placement to drain more fluid from the above areas-discussed with the systems design engineer As above Plan s/p ERCP with bile duct stent exchange. Bile leak was noted intraoperatively. New transcutaneous drain in place draining into colostomy bag. She is recovering well, slightly lethargic. Continues with therapy with plans for rehab. As above Nutritional status She has not been eating or drinking enough Discussed with the GI and plan to put coresafe and start tube feeding PPN has been started and also will encourage oral intake Continued PPN and oral sips as tolerated Other significant medical condition as below Paroxysmal atrial fibrillation-rate is controlled and has been on Eliquis Depression-seems to be stable and Multiple sclerosis-she has been moving all of her extremities though has weakness in the legs. Has been bedbound for the last 1 month Since they splenic hemorrhage has improved a lot and the hemoglobin remains stable will restart Eliquis DVT ppx- apixaban -on hold due to splenic hemorrhage as above Full code Dispo-awaiting Detailed discussion with the daughter Explained current situation beginning from first admission to the hospital Answered all of their questions Discussed about partial cholecystectomy and the drainage in the gallbladder area with biliary leakage Discussed about ERCP/EUS that was done on of this month Discussed about peripancreatic fluid collection and also splenic area fluid collection/hemorrhage And also discussed about possible transfer to tertiary care center if needed and is accepted by an accepting physician Discussed with the Admission and Anticipated Discharge Date Admission Date: January 15, 2023 Subjective 01/21/2023 The patient was seen and examined in telemetry unit in presence of the She has been complaining of more abdominal pain today without any nausea and or vomiting Denies any fever and or chills Denies any shortness of breath 01/22/2023 The patient was seen and examined in telemetry unit in presence of the She remains weak and lethargic but does not have any more abdominal pain at rest Her vitals remained stable and her hemoglobin has not changed 01/23/2023 The patient was seen and examined in telemetry unit in presence of the She remains stable and does not complain of any increasing pain She could not tolerate coresef tube yesterday Minimal intake orally 01/24/2023 Patient was seen and examined in telemetry unit in presence of the She will be going for ERCP/EUS this afternoon Remains stable and denies any significant pain 01/25/2023 The patient was seen and examined in telemetry unit in presence of the daughter She has been weak and lethargic and has not been showing any progress Has had ERCP/EUS and placement of biliary stent and external drainage 01/26/2023 The patient was seen and examined in telemetry unit She has been stable and the blood pressure has been running on the lower side Denies any fever and or chills Abdominal pain is decreased 01/27/2023 The patient was seen and examined in telemetry unit She has been stable but remains very sick Denies any abdominal pain and has not been able to take anything orally yet No fever and or chills, no abdominal pain, nausea and or vomiting Review of Systems Review of Systems: All systems reviewed and are unremarkable except as noted below Physical Exam Physical Exam: Lying in bed without any acute distress but remains very weak and lethargic Constitutional: well developed, well nourished, + ill appearing and + obese Eyes: PERRL, conjunctivae normal, anicteric sclerae ENMT: external ear and nose normal, oropharynx normal Neck: trachea midline, no thyromegaly Respiratory: no respiratory distress Auscultation: + diminished lung sounds and + crackles (Minimal crackles left base) Cardiovascular: Rate/Rhythm: regular rate, regular rhythm and + tachycardic Heart Sounds: normal S1 and normal S2; no murmur Extremities: + edema (Trace edema bilaterally) Gastrointestinal (Abdomen): Inspection/Auscultation: + abdomen distended and normal bowel sounds Percussion/Palpation: + abdomen tender and abdomen soft Neurologic: normal touch/pain/proprioception and moves all extremities; no focal motor deficits Psychiatric: A+Ox3, euthymic affect Lymphatic: no cervical or axillary lymphadenopathy Results & Data Results & Data Vital Signs (Past 12 Hours) Vital Signs Temp Pulse Pulse Resp BP Pulse Ox O2 Del Method 01/27/23 11:22 36.2 C L 94 H 16 106/83 96 Room Air 01/27/23 10:45 90 01/27/23 07:33 36.4 C L 93 H 17 124/78 97 Room Air 01/27/23 03:14 36.4 C L 92 H 20 111/52 L 93 Room Air Laboratory Results [facility] 01/27/23 05:48 Sodium 141 Potassium 3.4 L Chloride 108 H Carbon Dioxide 20 L BUN 59 H Creatinine 2.61 H Glucose 135 H Calcium 7.5 L Medications Administered Current Inpatient Medications Acetaminophen (Acetaminophen 325 Mg Tab) 650 mg PO Q6 PRN PRN Reason: Fever Or MILD Pain Stop: 02/14/23 23:34 Last Admin: 01/25/23 21:45 Dose: 650 mg Amiodarone HCl (Amiodarone 200 Mg Tab) 200 mg PO QAM [facility] Stop: 02/22/23 06:59 Last Admin: 01/27/23 08:09 Dose: 200 mg Apixaban (Apixaban 5 Mg Tablet) 5 mg PO BID [facility] Stop: 02/15/23 08:59 Last Admin: 01/21/23 08:05 Dose: 5 mg Calamine/Phenol (Menthol-Zinc Oxide 360 Appln/120 Gm Tube) 1 appln EXT TID [facility]DA[facility] Stop: 02/15/23 08:59 Last Admin: 01/27/23 09:00 Dose: 1 appln Dextrose (Dextrose 50% 50 Ml Syringe) 25 - 50 ml IV UD PRN; Protocol PRN Reason: Hypoglycemia Protocol Stop: 02/15/23 08:04 Glucagon (Glucagon For Inj 1 Mg Vial) 1 mg SQ UD PRN; Protocol PRN Reason: Hypoglycemia Protocol Stop: 02/15/23 08:04 Glucose (Glucose 40% Gel 15 Gm Tube) 15 - 30 gm PO UD PRN; Protocol PRN Reason: Hypoglycemia Protocol Stop: 02/15/23 08:04 Glucose (Glucose 10 Tab/Tube) 4 - 8 tab PO UD PRN; Protocol PRN Reason: Hypoglycemia Treatment Stop: 02/15/23 08:04 Daptomycin 425 mg/ Syringe 8.5 mls @ 4.25 mls/min IV Q48H [facility]DA[facility]; Protocol Stop: 02/04/23 08:59 Last Admin: 01/27/23 10:09 Dose: 4.25 mls/min Dextrose (D10w) 1,000 mls @ 0 mls/hr IV .Q0M PRN PRN Reason: protocol (see label comments) Stop: 02/24/23 15:27 Piperacillin Sod/Tazobactam (Sod 4.5 gm/ Dextrose) 120 mls @ 30 mls/hr IV Q8H [facility]; Protocol Stop: 02/05/23 08:14 Last Infusion: 01/27/23 12:09 Dose: Infused Amino Acids 1,798 ml/ (Nutrition (Parenteral)) 1,798 mls @ 74.9 mls/hr IV .Q24H [facility]; Protocol Stop: 01/27/23 15:59 Last Admin: 01/26/23 15:58 Dose: 74.9 mls/hr Insulin Aspart (Insulin Aspart Per Unit Charge) 0 units SC Q4 [facility] Stop: 02/18/23 20:59 Last Admin: 01/27/23 12:14 Dose: 1 units Magnesium Oxide (Magnesium Oxide 400 Mg Tab) 400 mg PO QAM [facility] Stop: 02/15/23 08:59 Last Admin: 01/27/23 08:11 Dose: 400 mg Methimazole (Methimazole 5 Mg Tablet) 5 mg PO DAILY [facility] Stop: 02/15/23 08:59 Last Admin: 01/27/23 08:09 Dose: 5 mg Miscellaneous (Carbohydrates For Hypoglycemia ) 15 - 30 gm PO UD PRN PRN Reason: Hypoglycemia Protocol Stop: 02/15/23 08:04 Miscellaneous Information (Tpn/Ppn Consult Pharmacy) 1 each N/A UD PRN PRN Reason: Consult Stop: 02/25/23 08:39 Sertraline HCl (Sertraline Hcl 50 Mg Tablet) 50 mg PO QAM [facility] Stop: 02/15/23 08:59 Last Admin: 01/27/23 08:10 Dose: 50 mg (5) Acute pancreatitis Acute pancreatitis complication: unspecified Pancreatitis type: unspecified pancreatitis type Qualified Code(s): K85.90 - Acute pancreatitis without necrosis or infection, unspecified
[2023-01-27] MEDS ORDERED: PERIPHERAL TPN IV SCH (16:00)
[2023-01-27] MEDS ORDERED: CLINOLIPID 20% IV FAT EMULSION 250 ML IV SCH (16:00)
[2023-01-27] MEDS ORDERED: [UNRECOGNIZED DRUG - OTHER] IV SCH (16:00)
[2023-01-27] MEDS: APIXABAN 5 MG TABLET PO SCH (20:24)
[2023-01-28] MEDS ORDERED: diphenhydrAMINE 50 MG/ML VIAL IV STA (01:05)
[2023-01-28] MEDS: INSULIN ASPART PER UNIT CHARGE SC SCH ×6 (01:16→20:27)
[2023-01-28] MEDS: PIPERACILLIN/TAZOBACTAM 4.5 GM in DEXTROSE 5% 100 ML IV SCH ×4 (01:16→23:49)
[2023-01-28] MEDS ORDERED: methylPREDNISolone 50 MG in SYRINGE 0 ML IV STA (01:18)
[2023-01-28 06:36] LABS: Hematocrit (blood only) 26.6 % (37.0-47.0); Hemoglobin 8.6 g/dl (12.0-16.0); Mean Corpuscular Hemoglobin 27.7 pg (25.0-34.0); Mean Corpuscular Hgb Conc 32.3 g/dL (32.0-36.0); Mean Corpuscular Volume 85.5 fL (80.0-100.0); Mean Platelet Volume 9.4 fL (9.4-12.4); Nucleated RBC # (auto) 0.05 K/uL (0-0.12); Nucleated RBC % (auto) 0.2 %; Platelet Count 447 K/uL (130-400); RDW Standard Deviation 50.7 fL (36.4-46.3); Red Blood Count 3.11 M/uL (4.20-5.40); White Blood Count 28.14 K/ul (4.8-10.8)
--- NOTE | 2023-01-28 06:55 | Surgery Progress Note ---
Date of Service January 28, 2023 Assessment & Plan (1) Pancreatitis: Plan: Minimal to no drainage from right abdominal MIMI drain-we will have nurses remove Cover site with dry gauze twice daily, skin care per nursing Left abdominal drain with 200+ brown serous drainage over approximately 24 hours Appears to be ascites secondary to pancreatitis Patient Zosyn stopped-she has been on this for quite a while without reaction I believe she is on daptomycin Other management per medical and GI team Admission and Anticipated Discharge Date Admission Date: January 15, 2023 Results & Data Vital Signs (Past 12 Hours) Vital Signs Temp Pulse Pulse Resp BP Pulse Ox O2 Del Method 01/28/23 03:29 36.4 C L 103 H 20 130/76 93 Room Air 01/27/23 22:00 105 H 01/28/23 00:52 36.4 C 103 H 18 126/71 01/27/23 23:06 36.8 C 106 H 20 115/59 L 93 Room Air 01/27/23 19:38 Room Air 01/27/23 19:19 36.5 C 111 H 20 125/68 95 Room Air PG Care Time/CCT Total # of Minutes Spent Total Time Spent with Patient: Total time spent is greater than 50% in coordination of care (as documented) at patient's floor/unit and/or counseling patient: Coding Level of Care Code None Diagnoses Pancreatitis K85.90
[2023-01-28 07:12] LABS: Basophils # (auto) 0.06 K/uL (0-0.2); Basophils % (auto) 0.2 %; Eosinophils # (auto) 0.03 K/uL (0-0.50); Eosinophils % (auto) 0.1 %; Immature Granulocytes # (auto) 0.52 K/uL (0.01-0.20); Immature Granulocytes % (auto) 1.8 %; Lymphocytes # (auto) 1.97 K/uL (1.2-3.4); Monocytes # (auto) 0.36 K/uL (0.11-0.59); Monocytes % (auto) 1.3 %; Neutrophils % (auto) 89.6 %; Polychromasia 2+; Rouleaux 3+
[2023-01-28 07:18] LABS: Albumin Globulin Ratio 0.4 (0.9-2); Albumin Level 1.9 gm/dl (3.4-5.0); BUN Creatinine Ratio 26.6 (10-20); Bilirubin,Total 0.4 mg/dl (0.2-1.0); Calcium 7.3 mg/dl (8.6-10.3); Creatinine Clr Calc Pharmacy 24.5 ml/min; Est GFR (African American) 23.8 ml/min; Est GFR (Non-African American) 20.5 ml/min; Globulin 4.5 gm/dl (2.5-4.0); Magnesium 1.8 mg/dl (1.7-2.4); Potassium 3.7 mmol/L (3.5-5.1); Total Protein 6.4 gm/dl (6.0-8.3)
[2023-01-28] MEDS: methIMAzole 5 MG TABLET PO SCH (08:32)
[2023-01-28] MEDS: MAGNESIUM OXIDE 400 MG TAB PO SCH (08:33)
[2023-01-28] MEDS: SERTRALINE HCL 50 MG TABLET PO SCH (08:33)
[2023-01-28] MEDS: AMIODARONE 200 MG TAB PO SCH (08:33)
[2023-01-28] MEDS: APIXABAN 5 MG TABLET PO SCH ×2 (08:33→21:02)
[2023-01-28] MEDS: MENTHOL-ZINC OXIDE 360 APPLN/120 GM TUBE EXT SCH ×3 (09:24→21:02)
--- NOTE | 2023-01-28 11:38 | Hospitalist Progress Note ---
Date of Service January 28, 2023 Assessment & Plan (1) Septic shock: Plan: Patient was recently hospitalized for about a month during which she was managed for acute pancreatitis, acute cholangitis, septic shock, acute renal failure requiring dialysis briefly, paroxysmal A-fib. Underwent ERCP on 12/10 with removal of stones from the bile duct. Underwent lap adele with extensive lysis of adhesions on 12/10 by general surgery. [facility] to [facility] and represented with abdominal and back pain. Labs on presentation showed worsening leukocytosis, worsening renal function and has been hypotensive. Being managed for septic shock.Was on Levophed which was weaned off around 5pm today (01/17). Sources of sepsis include possible intra-abdominal infection considering recent severe pancreatitis, surgical subhepatic drain in situ, recent UTI. Acute on chronic pancreatitis Intra-abdominal fluid collection-biliary leak, necrotic pancreatitis Continue on Zosyn for now after stent exchange performed by GI Initial ID consultation was done on 01/18/2023 and repeat follow-up will be done on 01/22/2023 Has pleural effusion (left) on CT abd/pelvis. Not in resp distress but she does have a slight cough. Appreciate ID input and recommendation to continue intravenous Zosyn for now New intra-abdominal collection is growing Enterococcus and daptomycin was added to cover possible VRE 01/21/2023 Complaining of more abdominal pain though the white count has been improving CT of the abdomen and pelvis showed severe acute pancreatitis as on 01/15/2023 and a new perisplenic hemorrhage We will continue with current pain medications and hold Eliquis Hemoglobin did not drop and the pain is controlled Discussed with the surgeon, GI and IR facility over [facility] and plan is to repeat the scan tomorrow any [facility] fluid colle ction/hemorrhage is increasing the patient will be transferred to tertiary care center for definitive drainage Discussed with the family members about this measure Repeat scan today showed: Increasing fluid collection as below 1. Findings consistent with severe acute pancreatitis. 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 2. Perisplenic hemorrhage, stable to slightly increased since prior CT. The perisplenic fluid collection has increased in size since prior CT. Irregularity of the spleen consistent with splenic injury. 3. Increase in size of perihepatic and perigastric fluid collections with mass effect upon the stomach. The perihepatic fluid collection could be related to a bile leak or acute pancreatitis. 4. Increase in gas within the cholecystectomy bed. This is nonspecific given indwelling surgical drain and common bile duct stent however a persistent biliary leak cannot be excluded. 5. No significant change in a moderate left pleural effusion with left lower lobe atelectasis. 6. Slight increase in small to moderate pelvic ascites. Discussed with the general surgery, ID specialist and informed her about ER CP/EUS tomorrow IV fluid was discontinued after EUS Condition remains stable Intra-abdominal fluid collections; as below Perisplenic fluid collection with possible bleeding from the spleen We will monitor-most recent CT of the abdomen and pelvis did show a decrease in perisplenic fluid/hemorrhage Discussed with the GI-epigastric and peripancreatic fluid collections will be drained with a larger drainage tube today that is for 01/26/2023 Patient remains critically stable Status post ultrasound guided perihepatic fluid aspiration and placement of drain Fluid study shows amylase of 3724 and lipase of 20,040-likely secondary to chronic pancreatitis Still draining and this morning I checked the collection he does more than 300 mL-microbiology has been negative so far. Prior fluid studies showed probable Enterococcus and further identification pending Has been on TPN and oral sepsis on top of that Getting intravenous Zosyn and daptomycin was added on The right-sided MIMI drain has been [id number] intra-abdominal drain is draining about 200 mL of fluid since this morning White count remains elevated likely secondary to chronic infection/inflammationno evidence of intra-abdominal abscess Rash on top of nose and adjoining area Likely due to rosacea doubt any allergic reaction from Zosyn Will restart Zosyn and continue for now Hypertension Will start metoprolol succinate 50 mg twice daily from today (2) Hyperthyroidism: Plan: Patient on methimazole which is known to have a side effect of pancreatitis. However, will cont for now as this pancreatitis is improved clinically and there are more likely causes/contributing factors. (3) Pleural effusion, left: Plan: hopeful this will improve after stent exchange and with time and movement. If no improvement, may need to consider thoracentesis. Repeat CT showed moderate left pleural effusion as before (4) Acute renal failure: Plan: Worsening renal function in setting of septic shock, around 2.6. Recent temporary dialysis last month which she is off of now. Nephro following. Creat appears stable although still worse than her baseline. Creatinine is little bit better today at 2.50 and potassium was 3.1 which was replaced Renal failure has been getting better with IV fluid at the same time getting edema IV fluid will be stopped following ERCP today Kidney function has been stable with slightly worsening creatinine today Kidney function remains stable but a little worse compared with yesterday (5) Acute pancreatitis: Plan: Intra-abdominal fluid collection as below: CT abdomen and pelvis without contrast on admission noted redemonstration of severe acute pancreatitis similar to 12/31/2022, CBD stent in satisfactory posi tion, unchanged position of right subhepatic percutaneous drainage, bilateral nephrolithiasis without ureteral calculi or hydronephrosis, moderate left pleural effusion increased in size with left basilar consolidation suggestive of atelectasis, increased amount of abdominal left upper quadrant ascites Repeat CT of the abdomen pelvis showed: 01/21/2023 1. Severe acute pancreatitis is similar appearance to the 01/15/2023 exam with persistent acute peripancreatic fluid collections. 2. Prior cholecystectomy with decreased size of the air and fluid-filled structure within the tima hepatis. 3. Common bile duct stent in place with persistent pneumobilia. 4. Unchanged positioning of the right subhepatic percutaneous drainage catheter. 5. Increased amount of abdominopelvic ascites, notably surrounding the spleen with new perisplenic hemorrhage. 6. Bilateral nephrolithiasis. 7. Moderate left pleural effusion with left basilar consolidation. 8. Additional findings as above. We will continue with current antibiotic and pain medications Repeat CT scan of the abdomen pelvis showed increasing fluid collection around pancreas and also perisplenic area Discussed with the daughter and the for possible transfer to tertiary care center to perform IR procedures down the line Has acute necrotic pancreatitis with peripancreatic fluid collections-not amenable to drainage as per IR Status post ERCP/EUS and placement of new drainage on 01/24/2023 has been draining normally as per GI Repeat CT abdomen pelvis showed: IMPRESSION: 1. The spleen is irregular and diminutive suggesting splenic injury. A perisplenic fluid collection/hematoma has decreased in size from 01/23/2023. 2. An air/contrast level in the gallbladder fossa is likely related to cystic duct leak when compared to the recent ERCP images. 3. A loculated fluid collection around the lateral segment of the left lobe of the liver has increased in size from 01/23/2023. 4. Abdominal ascites has modestly increased from 01/23/2023. 5. Again seen is evidence of acute pancreatitis. Inflammatory change has modestly improved from previous. 6. A fluid collection in the pancreatic neck could represent focal necrosis or developing pseudocyst. 7. Common bile duct stents are in place. Pneumobilia suggests patency. 8. Moderate left and trace right pleural effusions with dependent consolidation. 9. Bilateral nephrolithiasis. 10. Additional findings as above. Will have ultrasound-guided tube placement to drain more fluid from the above areas-discussed with the equipment operator/laborer As above Plan s/p ERCP with bile duct stent exchange. Bile leak was noted intraoperatively. New transcutaneous drain in place draining into colostomy bag. She is recovering well, slightly lethargic. Continues with therapy with plans for rehab. As above Nutritional status She has not been eating or drinking enough Discussed with the GI and plan to put coresafe and start tube feeding PPN has been started and also will encourage oral intake Continued PPN and oral sips as tolerated-has been taking very minimal orally Other significant medical condition as below Paroxysmal atrial fibrillation-rate is controlled and has been on Eliquis Depression-seems to be stable and Multiple sclerosis-she has been moving all of her extremities though has weakness in the legs. Has been bedbound for the last 1 month Since they splenic hemorrhage has improved a lot and the hemoglobin remains stable will restart Eliquis DVT ppx- apixaban -on hold due to splenic hemorrhage as above Full code Dispo-awaiting Detailed discussion with the daughter Explained current situation beginning from first admission to the hospital Answered all of their questions Discussed about partial cholecystectomy and the drainage in the gallbladder area with biliary leakage Discussed about ERCP/EUS that was done on of this month Discussed about peripancreatic fluid collection and also splenic area fluid collection/hemorrhage And also discussed about possible transfer to tertiary care center if needed and is accepted by an accepting physician Discussed with the -discussed with the daughter today for 01/28/2023 Admission and Anticipated Discharge Date Admission Date: January 15, 2023 Subjective 01/21/2023 The patient was seen and examined in telemetry unit in presence of the She has been complaining of more abdominal pain today without any nausea and or vomiting Denies any fever and or chills Denies any shortness of breath 01/22/2023 The patient was seen and examined in telemetry unit in presence of the She remains weak and lethargic but does not have any more abdominal pain at rest Her vitals remained stable and her hemoglobin has not changed 01/23/2023 The patient was seen and examined in telemetry unit in presence of the She remains stable and does not complain of any increasing pain She could not tolerate coresef tube yesterday Minimal intake orally 01/24/2023 Patient was seen and examined in telemetry unit in presence of the She will be going for ERCP/EUS this afternoon Remains stable and denies any significant pain 01/25/2023 The patient was seen and examined in telemetry unit in presence of the daughter She has been weak and lethargic and has not been showing any progress Has had ERCP/EUS and placement of biliary stent and external drainage 01/26/2023 The patient was seen and examined in telemetry unit She has been stable and the blood pressure has been running on the lower side Denies any fever and or chills Abdominal pain is decreased 01/27/2023 The patient was seen and examined in telemetry unit She has been stable but remains very sick Denies any abdominal pain and has not been able to take anything orally yet No fever and or chills, no abdominal pain, nausea and or vomiting 01/28/2023 The patient was seen and examined in telemetry unit in presence of the daughter She has been feeling a little better today and denies any symptoms at rest Her blood pressure was noted to be high and he still has tachycardia No fever and or chills and no nausea and or vomiting Review of Systems Review of Systems: All systems reviewed and are unremarkable except as noted below Neurologic: Generally weak and lethargic. Moving all limbs upper extremities more than the lower Physical Exam Physical Exam: Lying in bed without any acute distress but remains very weak and lethargic Constitutional: well developed, well nourished, + ill appearing and + obese Eyes: PERRL, conjunctivae normal, anicteric sclerae ENMT: external ear and nose normal, oropharynx normal Neck: trachea midline, no thyromegaly Respiratory: no respiratory distress Auscultation: + diminished lung sounds and + crackles (Minimal crackles left base) Cardiovascular: Rate/Rhythm: regular rate, regular rhythm and + tachycardic Heart Sounds: normal S1 and normal S2; no murmur Extremities: + edema (Trace edema bilaterally) Gastrointestinal (Abdomen): Inspection/Auscultation: + abdomen distended and normal bowel sounds Percussion/Palpation: + abdomen tender and abdomen soft Musculoskeletal: No acute arthritis involving any joint Neurologic: normal touch/pain/proprioception and moves all extremities; no focal motor deficits Psychiatric: A+Ox3, euthymic affect Lymphatic: no cervical or axillary lymphadenopathy Results & Data Results & Data Vital Signs (Past 12 Hours) Vital Signs Temp Pulse Pulse Resp BP Pulse Ox O2 Del Method 01/28/23 07:00 103 H 01/28/23 07:59 36.6 C 98 H 18 150/87 H 94 Room Air 01/28/23 03:29 36.4 C L 103 H 20 130/76 93 Room Air 01/28/23 00:52 36.4 C 103 H 18 126/71 Laboratory Results Short CBC 01/28/23 Range/Units 06:14 WBC 28.14 H (4.8-10.8) K/ul Hgb 8.6 L (12.0-16.0) g/dl Hct 26.6 L (37.0-47.0) % Plt Count 447 H (130-400) K/uL BMP 01/28/23 06:14 Sodium 141 Potassium 3.7 Chloride 106 Carbon Dioxide 24 BUN 61 H Creatinine 2.29 H D Glucose 136 H Calcium 7.3 L Liver Function 01/28/23 Range/Units 06:14 Total Bilirubin 0.4 (0.2-1.0) mg/dl AST 19 (13-39) U/L ALT 9 (7-52) U/L Alkaline Phosphatase 108 H (34-104) U/L Albumin 1.9 L (3.4-5.0) gm/dl Medications Administered Current Inpatient Medications Acetaminophen (Acetaminophen 325 Mg Tab) 650 mg PO Q6 PRN PRN Reason: Fever Or MILD Pain Stop: 02/14/23 23:34 Last Admin: 01/25/23 21:45 Dose: 650 mg Amiodarone HCl (Amiodarone 200 Mg Tab) 200 mg PO QAM [facility] Stop: 02/22/23 06:59 Last Admin: 01/28/23 08:33 Dose: 200 mg Apixaban (Apixaban 5 Mg Tablet) 5 mg PO BID [facility] Stop: 02/15/23 08:59 Last Admin: 01/28/23 08:33 Dose: 5 mg Calamine/Phenol (Menthol-Zinc Oxide 360 Appln/120 Gm Tube) 1 appln EXT TID [facility] Stop: 02/15/23 08:59 Last Admin: 01/28/23 09:24 Dose: 1 appln Dextrose (Dextrose 50% 50 Ml Syringe) 25 - 50 ml IV UD PRN; Protocol PRN Reason: Hypoglycemia Protocol Stop: 02/15/23 08:04 Glucagon (Glucagon For Inj 1 Mg Vial) 1 mg SQ UD PRN; Protocol PRN Reason: Hypoglycemia Protocol Stop: 02/15/23 08:04 Glucose (Glucose 40% Gel 15 Gm Tube) 15 - 30 gm PO UD PRN; Protocol PRN Reason: Hypoglycemia Protocol Stop: 02/15/23 08:04 Glucose (Glucose 10 Tab/Tube) 4 - 8 tab PO UD PRN; Protocol PRN Reason: Hypoglycemia Treatment Stop: 02/15/23 08:04 Daptomycin 425 mg/ Syringe 8.5 mls @ 4.25 mls/min IV Q48H [facility]ANDANA; Protocol Stop: 02/04/23 08:59 Last Admin: 01/27/23 10:09 Dose: 4.25 mls/min Dextrose (D10w) 1,000 mls @ 0 mls/hr IV .Q0M PRN PRN Reason: protocol (see label comments) Stop: 02/24/23 15:27 Piperacillin Sod/Tazobactam (Sod 4.5 gm/ Dextrose) 120 mls @ 30 mls/hr IV Q8H [facility]ANDANA; Protocol Stop: 02/05/23 08:14 Last Admin: 01/28/23 09:23 Dose: 30 mls/hr Amino Acids 1,807 ml/ (Nutrition (Parenteral)) 1,807 mls @ 75.3 mls/hr IV .Q24H [facility]DANA; Protocol Stop: 01/28/23 15:59 Last Admin: 01/27/23 16:18 Dose: 75.3 mls/hr Amino Acids 1,807 ml/ (Nutrition (Parenteral)) 1,807 mls @ 75.3 mls/hr IV .Q24H [facility]DANA; Protocol Stop: 01/29/23 15:59 Fat Emulsion-[place] Oil/Soybean Oil (Clinolipid 20% Iv Fat Emulsion) 250 mls @ 41.667 mls/hr IV .Q6H [facility] Stop: 01/28/23 21:59 Insulin Aspart (Insulin Aspart Per Unit Charge) 0 units SC Q4 [facility] Stop: 02/18/23 20:59 Last Admin: 01/28/23 08:20 Dose: Not Given Magnesium Oxide (Magnesium Oxide 400 Mg Tab) 400 mg PO QAM [facility] Stop: 02/15/23 08:59 Last Admin: 01/28/23 08:33 Dose: 400 mg Methimazole (Methimazole 5 Mg Tablet) 5 mg PO DAILY [facility] Stop: 02/15/23 08:59 Last Admin: 01/28/23 08:32 Dose: 5 mg Miscellaneous (Carbohydrates For Hypoglycemia ) 15 - 30 gm PO UD PRN PRN Reason: Hypoglycemia Protocol Stop: 02/15/23 08:04 Miscellaneous (Stop Clinolipid) 1 each N/A DAILY@2200 [facility] Stop: 02/27/23 21:59 Miscellaneous Information (Tpn/Ppn Consult Pharmacy) 1 each N/A UD PRN PRN Reason: Consult Stop: 02/25/23 08:39 Sertraline HCl (S[facility]raline Hcl 50 Mg Tablet) [facility]: 02/15/23 08:59 Last Admin: 01/28/23 08:33 Dose: 50 mg (5) Acute pancreatitis Acute pancreatitis complication: unspecified Pancreatitis type: unspecified pancreatitis type Qualified Code(s): K85.90 - Acute pancreatitis without necrosis or infection, unspecified
[2023-01-28] MEDS: METOPROLOL SUCC 50MG EXT REL TAB PO SCH ×2 (12:31→21:02)
--- NOTE | 2023-01-28 14:39 | Nephrology Progress Note ---
Date of Service January 28, 2023 Assessment & Plan Admission and Anticipated Discharge Date Admission Date: January 15, 2023 Subjective Assessment & Plan (1) Acute renal failure: Plan: nonoliguric ischemic ATN Her baseline creatinine as recently as the middle of last month was actually 0.9. During mid November to mid December extended admission for cholangitis and panc reatitis with complications, she had acute renal failure requiring several treatments of intermittent hemodialysis, with last treatment January 01. Her renal function recovered sufficiently to stop hemodialysis. Her discharge creatinine was 1.8 on January 12. Her presenting creatinine this admission on January 15 was 2 has edema and ascites and pl effusion but also has Alb of 1.8------no need of iv fluids or lasix today. Creat went down a bit but overall has not changed much for more than 10- days now. Continue to monitor renal function with daily BMP Avoid nephrotoxins Subjective Seen for acute kidney injury. Patient has required dialysis in the previous admission. making urine. No shortness of breath and on RA.Legs are slightly swollen. Review of Systems Review of Systems: All other systems were reviewed and negative except as noted in HPI Physical Exam Physical Exam: General exam: Appears comfortable, no acute distress HEENT: Pupils are equal and reactive to light Neck: No JVD, neck is supple trachea is midline Respiratory system: crackles bilaterally. Gastrointestinal: Abdomen is soft, non distended, non tender, bowel sounds are present CVS: Regular rate and rhythm. No murmurs, rubs or gallops Musculoskeletal: No joint or muscle tenderness Extremities: Non tender, 1+ edema, peripheral pulses are present Neuro: Oriented, no tremors, no focal neurological deficits Skin: No rashes Results & Data Vital Signs (Past 12 Hours) Vital Signs Temp Pulse Pulse Resp BP Pulse Ox O2 Del Method 01/28/23 11:36 36.6 C 96 H 18 174/96 H 95 Room Air 01/28/23 07:00 103 H 01/28/23 07:59 36.6 C 98 H 18 150/87 H 94 Room Air 01/28/23 03:29 36.4 C L 103 H 20 130/76 93 Room Air
[2023-01-28] MEDS: ALBUMIN 25% 100 mL 25 GM/100 ML VIAL IV SCH (15:45)
[2023-01-28] MEDS: FUROSEMIDE 40 MG/4 ML VIAL IV SCH (15:45)
[2023-01-28] MEDS ORDERED: CLINOLIPID 20% IV FAT EMULSION 250 ML IV SCH (16:00)
[2023-01-28] MEDS ORDERED: [UNRECOGNIZED DRUG - OTHER] IV SCH (16:00)
[2023-01-28] MEDS ORDERED: PERIPHERAL TPN IV SCH (16:00)
[2023-01-28] MEDS ORDERED: Nursing to Pharmacy Communication SCH (17:30)
[2023-01-28] MEDS: ACETAMINOPHEN 325 MG TAB PO PRN (21:16)
[2023-01-28] MEDS: STOP CLINOLIPID SCH (21:56)
[2023-01-29] MEDS: INSULIN ASPART PER UNIT CHARGE SC SCH ×6 (00:01→21:12)
[2023-01-29] MEDS: FUROSEMIDE 40 MG/4 ML VIAL IV SCH ×2 (03:26→15:36)
[2023-01-29] MEDS: ALBUMIN 25% 100 mL 25 GM/100 ML VIAL IV SCH ×2 (03:26→15:41)
[2023-01-29 06:04] LABS: Hematocrit (blood only) 20.7 % (37.0-47.0); Hemoglobin 6.9 g/dl (12.0-16.0); Mean Corpuscular Hgb Conc 33.3 g/dL (32.0-36.0); Mean Corpuscular Volume 84.1 fL (80.0-100.0); Mean Platelet Volume 9.3 fL (9.4-12.4); Nucleated RBC # (auto) 0.03 K/uL (0-0.12); Nucleated RBC % (auto) 0.1 %; Platelet Count 353 K/uL (130-400); RDW Coefficient of Variation 16.6 % (11.5-14.5); RDW Standard Deviation 48.4 fL (36.4-46.3); Red Blood Count 2.46 M/uL (4.20-5.40); White Blood Count 24.09 K/ul (4.8-10.8)
[2023-01-29 06:20] LABS: BUN Creatinine Ratio 33.2 (10-20); Calcium 7.6 mg/dl (8.6-10.3); Creatinine Clr Calc Pharmacy 28.6 ml/min; Est GFR (African American) 28.7 ml/min; Est GFR (Non-African American) 24.8 ml/min; Magnesium 1.5 mg/dl (1.7-2.4); Phosphorus 2.6 mg/dl (2.5-4.9)
[2023-01-29 06:33] LABS: Basophils # (auto) 0.03 K/uL (0-0.2); Basophils % (auto) 0.1 %; Eosinophils # (auto) 0.13 K/uL (0-0.50); Eosinophils % (auto) 0.5 %; Immature Granulocytes # (auto) 0.27 K/uL (0.01-0.20); Immature Granulocytes % (auto) 1.1 %; Lymphocytes # (auto) 2.76 K/uL (1.2-3.4); Lymphocytes % (auto) 11.5 %; Neutrophils % (auto) 81.8 %; Polychromasia 1+
[2023-01-29 07:13] LABS: Hematocrit (blood only) 20.6 % (37.0-47.0); Hemoglobin 6.7 g/dl (12.0-16.0)
[2023-01-29] MEDS: DAPTOmycin 425 MG in SYRINGE 0 ML IV SCH (07:31)
[2023-01-29] MEDS: PIPERACILLIN/TAZOBACTAM 4.5 GM in DEXTROSE 5% 100 ML IV SCH ×2 (07:32→17:08)
--- NOTE | 2023-01-29 07:36 | Nephrology Progress Note ---
Date of Service January 29, 2023 Assessment & Plan (1) Acute renal failure: Plan: nonoliguric ischemic ATN, stage 2 Her baseline creatinine as recently as the middle of November was actually 0.9. During mid November to mid December extended admission for cholangitis and pancre atitis with complications, she had acute renal failure requiring several treatments of intermittent hemodialysis, with last treatment January 01. Her renal function recovered sufficiently to stop hemodialysis. Her discharge creatinine was 1.8 on January 12. Her presenting creatinine this admission on January 15 was 2; she has hovered in this range ever since has edema and ascites and pl effusion but also has Alb of 1.8----started on lasix/albumin last evening which should continue >>pls give extra 40 mg IV lasix if pRBC planned w/ hgb drop today creatinine improved some today >> concern though w/ bleeding that this improvement may not last Continue to monitor renal function with daily BMP Avoid nephrotoxins >>repleted K 40 mEq po x 3 doses Admission and Anticipated Discharge Date Admission Date: January 15, 2023 Subjective no interval clinical events except hgb drop today > ongoing vaginal bleeding, some output from perihepatic drain. pt denies change in bleeding; denies uncontrolled pain; states breathing is "strained" but that she's not dyspneic; family feels edema improving Review of Systems Review of Systems: All systems reviewed & are unremarkable except as noted in Subjective Physical Exam Constitutional: well developed, + frail appearing and cooperative; no acute distress Eyes: EOM intact bilaterally ENMT: Ears: no external ear abnormality Nose: no external nose abnormality Mouth: + dry oral mucous membranes Neck: no nuchal rigidity Respiratory: normal respiratory effort Auscultation: + diminished lung sounds Cardiovascular: Rate/Rhythm: regular rate and regular rhythm Gastrointestinal (Abdomen): Inspection/Auscultation: normal bowel sounds and + abdominal surgical drain present Percussion/Palpation: abdomen soft; abdomen nontender Musculoskeletal: Extremities: + abnormal strength (can't hold arms up) Skin: no rashes, warm and dry Neurologic: no tremor, tired Psychiatric: Orientation: alert and oriented x 3 Results & Data Vital Signs (Past 12 Hours) Vital Signs Temp Pulse Pulse Resp BP Pulse Ox O2 Del Method 01/29/23 07:12 36.5 C 92 H 24 145/86 H 94 Room Air 01/29/23 04:48 36.5 C 82 18 133/74 93 Room Air 01/29/23 02:33 36.8 C 82 18 155/82 H 93 Room Air 01/29/23 00:56 92 H 01/28/23 22:51 36.5 C 89 18 144/75 H 94 Room Air 01/28/23 21:46 Room Air 01/28/23 19:50 36.6 C 90 18 153/106 H 94 Room Air Laboratory Results 01/29/23 06:49 01/29/23 05:41
[2023-01-29] MEDS: MENTHOL-ZINC OXIDE 360 APPLN/120 GM TUBE EXT SCH (07:40)
[2023-01-29] MEDS ORDERED: SODIUM CHLORIDE 0.9% 250 ML IV PRN (08:51)
[2023-01-29] MEDS ORDERED: FUROSEMIDE 40 MG/4 ML VIAL IV ONE (08:52)
[2023-01-29] MEDS: SERTRALINE HCL 50 MG TABLET PO SCH (09:49)
[2023-01-29] MEDS: POTASSIUM CHLORIDE CRTAB 20 MEQ TABCR PO SCH ×3 (09:49→21:11)
[2023-01-29] MEDS: METOPROLOL SUCC 50MG EXT REL TAB PO SCH ×2 (09:50→20:48)
[2023-01-29] MEDS: methIMAzole 5 MG TABLET PO SCH (09:50)
[2023-01-29] MEDS: AMIODARONE 200 MG TAB PO SCH (09:51)
[2023-01-29] MEDS: MAGNESIUM OXIDE 400 MG TAB PO SCH (09:52)
--- NOTE | 2023-01-29 10:35 | Infectious Disease Progress Nt ---
Date of Service January 29, 2023 Assessment & Plan (1) Pancreatitis: (2) Bile leak from gallbladder bed: Plan 72 yo F with history of obesity, HTN, anxiety, chronic neurogenic bladder, osteoporosis, MS, recent admission (12/09 - 01/12) for acute gallstone pancreatitis s/p ERCP with stent placement and subtotal laparoscopic cholecystectomy c/b bile leak with MIMI drain placement and Pseudomonas/Enterococcus UTI discharged on levofloxacin, who presented on 01/15 with back/abdominal pain, hypotension requiring pressors, leukocytosis to 34, found to have continued pancreatitis and peripancreatic fluid collections, bile leak. Pt was started on Zosyn. Hospital course has been complicated by continued bile leak s/p ERCP with stent on 01/19 and 01/24, continued intra- abdominal/peripancreatic collections s/p IR drain into RUQ on 01/26, persistent leukocytosis. 01/15: CT A/P (without contrast) showed severe acute pancreatitis, peripancreatic fluid collections, new 3.4 cm fluid attenuating structure within LUQ, possibly loculated ascites vs acute peripancreatic fluid collection, air and fluid-filled structure again noted in tima hepatis, possibly representing residual gallbladder vs postop fluid collection, unchanged positioning of R subhepatic percutaneous drainage catheter. Started on Zosyn. 01/16: surgery manipulated the RUQ MIMI drain, with improvement in drainage. 01/17: weaned off pressors. 01/18: HIDA scan showed bile leak and possible CBD obstruction. RUQ MIMI drainage sent for culture, growing probable Enterococcus. 01/19: ERCP showed bile leak, and biliary duct stent exchanged. 01/21: pt with increased abd pain. A repeat CT A/P without contrast showed similar severe acute pancreatitis, mildly increased ascites, increased fluid surrounding spleen with new splenic hemorrhage, increased size of peripancreatic fluid collections: adjacent to pancreatic head 2.5 cm --> 3.6 cm, and LUQ 3.5 cm --> 3.9 cm. 01/23: repeat CT A/P wo contrast showed severe pancreatitis with suspected underlying necrosis. Multiple pancreatic and peripancreatic fluid collections. Increased loculated fluid collection along lateral liver measuring 9.1 x 7.5 cm. Increased loculated fluid along stomach with mass effect. Increased perisplenic fluid collection/hemorrhage. 01/24: ERCP showed bile leak. Fibrin glue injected in cystic duct. Stent exchanged to longer covered metal stent, and two plastic biliary stents placed. 01/25: Hypotension in AM, but resolved within a couple hours. Empiric daptomycin added. 01/26: CT abd without contrast showed loculated fluid collection around liver increased in size (11 x 10.5 cm), perisplenic fluid collection decreased in size (14 x 6.5 cm), acute pancreatitis with modest improvement in inflammatory change, fluid collection in pancreatic neck could represent focal necrosis or developing pseudocyst. IR placed drain into perihepatic collection, removed ~200 cc brownish fluid, culture pending. Perisplenic collection was not aspirated due to concern for bleeding. Problems: #Peripancreatic fluid collections #Acute gallstone pancreatitis s/p ERCP with stent placement, subtotal lap adele c/b bile leak with MIMI drain placement (12/10/22) with persistent bile leak s/p ERCP and stent placement 01/19, 01/24 #Splenic hemorrhage #SAMMY: required temporary HD last admission #Decubitus ulcers #Atelectasis vs PNA Abx: Daptomycin 01/25 - Zosyn 01/15 - present Vanc 01/15 - 01/17 Recommendations: -Follow-up 01/26 IR drainage culture -Follow-up 01/18 MIMI drain Enterococcus species. Enterococcus is often found in polymicrobial intra-abdominal infections, with questionable pathogenicity vs colonization. -Continue daptomycin, pip-tazo for now, Her Cr has improved if it continues to improve we change dosing on antibiotics -No change to antibiotics today -Decrease in hgb to be addressed by Primary team ID will continue to follow Will discuss with Primary Karen Gannon MD Admission and Anticipated Discharge Date Admission Date: January 15, 2023 Subjective This patient recommendation is based on a telemedicine consult request which was completed asynchronously through chart review and information provided by the primary physician. The patient was not seen or examined today. The evaluation is consultative in nature and all patient care and treatment decisions can either be accepted or rejected by the patient's primary hospital-based treating physician using their own independent medical judgment for their patient. Time Spent Reviewing Chart: 31+ minutes 24 hours EDUARDO Cr 2.29-->1.96 WBC 24.9 Hgb dec 6.7 Results & Data Vital Signs (Past 12 Hours) Vital Signs Temp Pulse Pulse Resp BP Pulse Ox O2 Del Method 01/29/23 08:58 82 01/29/23 07:12 36.5 C 92 H 24 145/86 H 94 Room Air 01/29/23 04:48 36.5 C 82 18 133/74 93 Room Air 01/29/23 02:33 36.8 C 82 18 155/82 H 93 Room Air 01/29/23 00:56 92 H 01/28/23 22:51 36.5 C 89 18 144/75 H 94 Room Air Laboratory Results Laboratory Results - last 48 hr 01/27/23 01/27/23 01/27/23 11:11 16:14 20:12 WBC RBC Hgb Hct MCV MCH MCHC RDW Std Deviation RDW Coeff of Mandy Plt Count MPV Immature Gran % (Auto) Neut % (Auto) Lymph % (Auto) Cross % (Auto) Eos % (Auto) Baso % (Auto) Neut # (Auto) Lymph # (Auto) Cross # (Auto) Eos # (Auto) Baso # (Auto) Immature Gran # (Auto) Absolute Nucleated RBC Nucleated RBC % (auto) Polychromasia Rouleaux Sodium Potassium Chloride Carbon Dioxide Anion Gap BUN Creatinine Est Cr Clr Drug Dosing Est GFR ( Amer) Est GFR (Non-Af Amer) BUN/Creatinine Ratio Glucose POC Glucose 174 H 160 H 171 H Calcium Phosphorus Magnesium Total Bilirubin AST ALT Alkaline Phosphatase Total Protein Albumin Globulin Albumin/Globulin Ratio Crossmatch 01/28/23 01/28/23 01/28/23 00:51 06:14 06:14 WBC 28.14 H RBC 3.11 L Hgb 8.6 L Hct 26.6 L MCV 85.5 MCH 27.7 MCHC 32.3 RDW Std Deviation 50.7 H RDW Coeff of Mandy 17.0 H Plt Count 447 H MPV 9.4 Immature Gran % (Auto) 1.8 Neut % (Auto) 89.6 Lymph % (Auto) 7.0 Cross % (Auto) 1.3 Eos % (Auto) 0.1 Baso % (Auto) 0.2 Neut # (Auto) 25.20 H Lymph # (Auto) 1.97 Cross # (Auto) 0.36 Eos # (Auto) 0.03 Baso # (Auto) 0.06 Immature Gran # (Auto) 0.52 H Absolute Nucleated RBC 0.05 Nucleated RBC % (auto) 0.2 Polychromasia 2+ Rouleaux 3+ Sodium 141 Potassium 3.7 Chloride 106 Carbon Dioxide 24 Anion Gap 11 BUN 61 H Creatinine 2.29 H D Est Cr Clr Drug Dosing 24.5 Est GFR ( Amer) 23.8 Est GFR (Non-Af Amer) 20.5 BUN/Creatinine Ratio 26.6 H Glucose 136 H POC Glucose 172 H Calcium 7.3 L Phosphorus 4.0 D Magnesium 1.8 Total Bilirubin 0.4 AST 19 ALT 9 Alkaline Phosphatase 108 H Total Protein 6.4 Albumin 1.9 L Globulin 4.5 H Albumin/Globulin Ratio 0.4 L Crossmatch 01/28/23 01/28/23 01/28/23 07:26 11:26 16:28 WBC RBC Hgb Hct MCV MCH MCHC RDW Std Deviation RDW Coeff of Mandy Plt Count MPV Immature Gran % (Auto) Neut % (Auto) Lymph % (Auto) Cross % (Auto) Eos % (Auto) Baso % (Auto) Neut # (Auto) Lymph # (Auto) Cross # (Auto) Eos # (Auto) Baso # (Auto) Immature Gran # (Auto) Absolute Nucleated RBC Nucleated RBC % (auto) Polychromasia Rouleaux Sodium Potassium Chloride Carbon Dioxide Anion Gap BUN Creatinine Est Cr Clr Drug Dosing Est GFR ( Amer) Est GFR (Non-Af Amer) BUN/Creatinine Ratio Glucose POC Glucose 149 H 158 H 204 H Calcium Phosphorus Magnesium Total Bilirubin AST ALT Alkaline Phosphatase Total Protein Albumin Globulin Albumin/Globulin Ratio Crossmatch 01/28/23 01/28/23 01/28/23 16:30 20:01 23:57 WBC RBC Hgb Hct MCV MCH MCHC RDW Std Deviation RDW Coeff of Mandy Plt Count MPV Immature Gran % (Auto) Neut % (Auto) Lymph % (Auto) Cross % (Auto) Eos % (Auto) Baso % (Auto) Neut # (Auto) Lymph # (Auto) Cross # (Auto) Eos # (Auto) Baso # (Auto) Immature Gran # (Auto) Absolute Nucleated RBC Nucleated RBC % (auto) Polychromasia Rouleaux Sodium Potassium Chloride Carbon Dioxide Anion Gap BUN Creatinine Est Cr Clr Drug Dosing Est GFR ( Amer) Est GFR (Non-Af Amer) BUN/Creatinine Ratio Glucose POC Glucose 206 H 161 H 152 H Calcium Phosphorus Magnesium Total Bilirubin AST ALT Alkaline Phosphatase Total Protein Albumin Globulin Albumin/Globulin Ratio Crossmatch 01/29/23 01/29/23 01/29/23 04:45 05:41 05:41 WBC 24.09 H RBC 2.46 L Hgb 6.9 L* Hct 20.7 L* MCV 84.1 MCH 28.0 MCHC 33.3 RDW Std Deviation 48.4 H RDW Coeff of Mandy 16.6 H Plt Count 353 MPV 9.3 L Immature Gran % (Auto) 1.1 Neut % (Auto) 81.8 Lymph % (Auto) 11.5 Cross % (Auto) 5.0 Eos % (Auto) 0.5 Baso % (Auto) 0.1 Neut # (Auto) 19.70 H Lymph # (Auto) 2.76 Cross # (Auto) 1.20 H Eos # (Auto) 0.13 Baso # (Auto) 0.03 Immature Gran # (Auto) 0.27 H Absolute Nucleated RBC 0.03 Nucleated RBC % (auto) 0.1 Polychromasia 1+ Rouleaux Sodium 139 Potassium 3.0 L Chloride 103 Carbon Dioxide 27 Anion Gap 9 BUN 65 H Creatinine 1.96 H D Est Cr Clr Drug Dosing 28.6 Est GFR ( Amer) 28.7 Est GFR (Non-Af Amer) 24.8 BUN/Creatinine Ratio 33.2 H Glucose 121 H POC Glucose 132 H Calcium 7.6 L Phosphorus 2.6 D Magnesium 1.5 L Total Bilirubin AST ALT Alkaline Phosphatase Total Protein Albumin Globulin Albumin/Globulin Ratio Crossmatch 01/29/23 01/29/23 01/29/23 06:49 07:42 08:51 WBC RBC Hgb 6.7 L* Hct 20.6 L* MCV MCH MCHC RDW Std Deviation RDW Coeff of Mandy Plt Count MPV Immature Gran % (Auto) Neut % (Auto) Lymph % (Auto) Cross % (Auto) Eos % (Auto) Baso % (Auto) Neut # (Auto) Lymph # (Auto) Cross # (Auto) Eos # (Auto) Baso # (Auto) Immature Gran # (Auto) Absolute Nucleated RBC Nucleated RBC % (auto) Polychromasia Rouleaux Sodium Potassium Chloride Carbon Dioxide Anion Gap BUN Creatinine Est Cr Clr Drug Dosing Est GFR ( Amer) Est GFR (Non-Af Amer) BUN/Creatinine Ratio Glucose POC Glucose 123 H Calcium Phosphorus Magnesium Total Bilirubin AST ALT Alkaline Phosphatase Total Protein Albumin Globulin Albumin/Globulin Ratio Crossmatch See Detail Microbiology 01/16/23 10:28 Blood Fungal Smear - Final 01/16/23 10:28 Blood Fungal Culture - Preliminary No yeast or fungus isolated - Report 2, Additional report to follow. 01/26/23 11:34 Abdomen Gram Stain - Final 01/26/23 11:34 Abdomen Aerobic and Anaerobic Culture - Preliminary No growth to date. 01/25/23 08:20 Blood Aerobic Blood Culture - Preliminary No growth in Aerobic bottle after 48 hours. 01/25/23 08:20 Blood Anaerobic Blood Culture - Final 01/25/23 08:22 Blood Aerobic Blood Culture - Preliminary No growth in Aerobic bottle after 48 hours. 01/25/23 08:22 Blood Anaerobic Blood Culture - Preliminary No growth in Anaerobic bottle after 48 hours. 01/18/23 Unknown Abdomen, Right Upper Quadrant Gram Stain - Final 01/18/23 Unknown Abdomen, Right Upper Quadrant Aerobic and Anaerobic Culture - Preliminary Probable Enterococcus 01/15/23 16:49 Blood Aerobic Blood Culture - Final No growth in Aerobic bottle after 5 days. 01/15/23 16:49 Blood Anaerobic Blood Culture - Final No growth in Anaerobic bottle after 5 days. 01/15/23 16:58 Blood Aerobic Blood Culture - Final No growth in Aerobic bottle after 5 days. 01/15/23 16:58 Blood Anaerobic Blood Culture - Final 01/16/23 00:15 Urine,Clean Catch Urine Culture - Final No growth - less than 1,000 colonies/mL. Medications Administered Current Inpatient Medications Acetaminophen (Acetaminophen 325 Mg Tab) 650 mg PO Q6 PRN PRN Reason: Fever Or MILD Pain Stop: 02/14/23 23:34 Last Admin: 01/28/23 21:16 Dose: 650 mg Amiodarone HCl (Amiodarone 200 Mg Tab) 200 mg PO QAM [facility] Stop: 02/22/23 06:59 Last Admin: 01/29/23 09:51 Dose: 200 mg Apixaban (Apixaban 5 Mg Tablet) 5 mg PO BID [facility] Stop: 02/15/23 08:59 Last Admin: 01/28/23 21:02 Dose: 5 mg Calamine/Phenol (Menthol-Zinc Oxide 360 Appln/120 Gm Tube) 1 appln EXT TID VANDANA Stop: 02/15/23 08:59 Last Admin: 01/29/23 07:40 Dose: 1 appln Dextrose (Dextrose 50% 50 Ml Syringe) 25 - 50 ml IV UD PRN; Protocol PRN Reason: Hypoglycemia Protocol Stop: 02/15/23 08:04 Furosemide (Furosemide 40 Mg/4 Ml Vial) 40 mg IV Q12H VANDANA Stop: 02/27/23 15:29 Last Admin: 01/29/23 03:26 Dose: 40 mg Glucagon (Glucagon For Inj 1 Mg Vial) 1 mg SQ UD PRN; Protocol PRN Reason: Hypoglycemia Protocol Stop: 02/15/23 08:04 Glucose (Glucose 40% Gel 15 Gm Tube) 15 - 30 gm PO UD PRN; Protocol PRN Reason: Hypoglycemia Protocol Stop: 02/15/23 08:04 Glucose (Glucose 10 Tab/Tube) 4 - 8 tab PO UD PRN; Protocol PRN Reason: Hypoglycemia Treatment Stop: 02/15/23 08:04 Daptomycin 425 mg/ Syringe 8.5 mls @ 4.25 mls/min IV Q48H VANDANA; Protocol Stop: 02/04/23 08:59 Last Admin: 01/29/23 07:31 Dose: 4.25 mls/min Dextrose (D10w) 1,000 mls @ 0 mls/hr IV .Q0M PRN PRN Reason: protocol (see label comments) Stop: 02/24/23 15:27 Piperacillin Sod/Tazobactam (Sod 4.5 gm/ Dextrose) 120 mls @ 30 mls/hr IV Q8H S ; Protocol Stop: 02/05/23 08:14 Last Admin: 01/29/23 07:32 Dose: 30 mls/hr Amino Acids 1,807 ml/ (Nutrition (Parenteral)) 1,807 mls @ 75.3 mls/hr IV .Q24H VANDNAA; Protocol Stop: 01/29/23 15:59 Last Admin: 01/28/23 16:08 Dose: 75.3 mls/hr Albumin Human (Albumin 25% 100 Ml) 25 gm in 100 mls @ 50 mls/hr IV Q12H VANDANA Stop: 01/31/23 15:29 Last Infusion: 01/29/23 05:26 Dose: Infused Sodium Chloride (Nss) 250 mls @ 15 mls/hr IV .[id number] PRN PRN Reason: For Transfusion Duration Stop: 01/29/23 18:51 Insulin Aspart (Insulin Aspart Per Unit Charge) 0 units SC Q4 [facility] Stop: 02/18/23 20:59 Last Admin: 01/29/23 08:26 Dose: Not Given Magnesium Oxide (Magnesium Oxide 400 Mg Tab) 400 mg PO QAM [facility] Stop: 02/15/23 08:59 Last Admin: 01/29/23 09:52 Dose: 400 mg Methimazole (Methimazole 5 Mg Tablet) 5 mg PO DAILY [facility] Stop: 02/15/23 08:59 Last Admin: 01/29/23 09:50 Dose: 5 mg Metoprolol Succinate (Metoprolol Succ 50mg Ext Rel Tab) 50 mg PO BID [facility] Stop: 02/27/23 11:59 Last Admin: 01/29/23 09:50 Dose: 50 mg Miscellaneous (Carbohydrates For Hypoglycemia ) 15 - 30 gm PO UD PRN PRN Reason: Hypoglycemia Protocol Stop: 02/15/23 08:04 Miscellaneous (Stop Clinolipid) 1 each N/A DAILY@2200 [facility] Stop: 02/27/23 21:59 Last Admin: 01/28/23 21:56 Dose: 1 each Miscellaneous Information (Tpn/Ppn Consult Pharmacy) 1 each N/A UD PRN PRN Reason: Consult Stop: 02/25/23 08:39 Potassium Chloride (Potassium Chloride Crtab 20 Meq Tabcr) 40 meq PO Q4H [facility] Stop: 01/29/23 15:46 Last Admin: 01/29/23 09:49 Dose: 40 meq Sertraline HCl (Sertraline Hcl 50 Mg Tablet) 50 mg PO QAM [facility] Stop: 02/15/23 08:59 Last Admin: 01/29/23 09:49 Dose: 50 mg
--- NOTE | 2023-01-29 11:17 | Ultrasound Report ---
US pelvic complete HISTORY: 72 years-old Female Vaginal bleeding acute vaginal bleeding COMPARISON: 01/23/2023 CT examination TECHNIQUE: Multiple real-time sonographic images of the deep pelvic structures were obtained assessin g grayscale appearance, and color-flow FINDINGS: The anteflexed uterus measures 8.7 x 3.9 x 4.9 cm. Endometrium measures 9 mm in thickness. No myometr ial or endometrial mass identified. Trace fluid is noted within the endometrial cavity. There is a 7 mm subendometrial cyst involving the mid uterus. Nonvisualization of the ovaries secondary to extreme bowel gas and patient body habitus. Small amount of pelvic ascites again noted. IMPRESSION: 1. Pathologic thickening of the postmenopausal endometrium. Correlation with tissue sampling recommen ded. 2. Pelvic ascites again noted. 3. Nonvisualization of the ovaries. ACT 112: Negative or not required by law. The above report was generated using voice recognition software. It may contain grammatical, syntax o r spelling errors. Electronically signed by: Nick Stone M.D. 01/29/2023 11:16 AM
[2023-01-29] MEDS ORDERED: POTASSIUM CHLORIDE / WTR 10 MEQ/100 ML PLCT IV SCH (12:15)
--- NOTE | 2023-01-29 12:15 | Pharmacy Report ---
PHA: Parenteral Nutrition Con - Date of Service January 29, 2023 - Scope Pharmacy was consulted on 01/26/23 to manage parenteral nutrition orders for this patient. - Subjective The patient is currently on day 4 of PERIPHERAL parenteral nutrition for prolonged NPO +/- inability to meet caloric goals in a patient in whom enteral access was attempted and failed earlier this admission. - Objective Height: 5 ft 4 in Weight: 95.1 kg Diet: Full Liquid Vascular Access:: two 20G peripheral US guided sites Intake & Output (24hrs):: Intake & Output 01/27/23 01/28/23 01/29/23 01/30/23 06:59 06:59 06:59 06:59 Intake Total 850 / 850 2288 / 2288 868.585 / 868.585 Output Total 550 / 550 700 / 700 1703 / 1703 Balance 300 / 300 1588 / 1588 -834.415 / -834.415 Weight 95.8 kg 95.2 kg 95.1 kg 95.1 kg Additional Fluid Losses/Gains:: 50cc output from L abd drain 200mL per day from 25% albumin 300mL per day from Zosyn Laboratory Data (Last 24 Hr):: 01/29/23 05:41 Sodium 139 Potassium 3.0 L Chloride 103 Carbon Dioxide 27 BUN 65 H Creatinine 1.96 H D Glucose 121 H Calcium 7.6 L Phosphorus 2.6 D Magnesium 1.5 L Recent Pertinent Medications:: Lasix 40mg IV BID Albumin 25% 100mL BID Zosyn Daptomycin Methimazole KCL 40mEq PO Q 4 hrs x 3 doses ordered MagOx 400mg PO Q AM Nutrition Assessment:: Please refer to the Notes section of the EMR for the most recent distribution operations manager note. - Assessment Today is Day # 4 PPN. PPN is providing ~50-60% of caloric needs. Per Potato Chip Fryer, pt's intake from meals < 25% and intake from supplements < 50%. Discussed nutrition plan and fluid status with Dr Angulo. There are no plans for a central line yet. Per discussion, patient is to continue with current PPN in same volume. There are concerns with patient's fluid status (peripheral edema, ascites, pleural effusion) and nephro consult has been trying to mobilize fluids with the initiation of Lasix/Albumin yesterday. Over the last 24 hrs pt did have a negative fluid balance (-834mL) and did produce 1650mL urine. Today's PPN + Lipids will provide ~2050mL volume. Will need to continue to monitor fluid status closely. E-lytes reviewed. Hypokalemia and hypomagnesemia noted on this AM labs. Repletion orders provided by nephrology and hospitalist. Renal fxn appears to be improving, although BUN climbing slightly (H/H drop noted on CBC today). 1 unit PRBCs typed, not yet infused. Apixaban now on hold. BSGs well controlled with insulin added to bag. Will reduce insulin content slightly as no steroid administered in last 24 hrs. If nutritional needs falling short with PPN and fluid overload a concern, consideration of central venous access should be considered in order to maximize caloric delivery while minimizing fluid administration. - Plan For day 4 of PN administration, the following will be ordered: Macronutrients Amino acids 71 grams/day Dextrose 84 grams/day Lipids 50 grams/day Micronutrients Combined electrolytes 0 mL - contains 35 mEq Na, 20 meq K, 4.5 mEq Ca, 5 mEq Mg, 35 mEq Cl, 29.5 mEq acetate per 20 mL Sodium phosphate 15 MMol Sodium chloride 75 mEq Sodium acetate 40 mEq Potassium phosphate 0 mMol Potassium chloride 40 mEq Potassium acetate 40 mEq Magnesium sulfate 16.24 mEq Calcium gluconate 4.65 mEq Multivitamins 10 mL Trace Elements 1 mL Additional additives: Thiamine 100mg; Regular insulin 16 units Total volume 1801 mL AA/Dex/elytes + 250mL lipids to be infused over 24 hrs will provide 1071 kcal/day (goal ~1850 kcal/day) Final osmolarity 879 mOsm/L (maximum for PPN is 900 mOsm/L) Labs, as indicated, will be ordered per protocol Pharmacy will continue to follow and adjust parenteral nutrition orders on a daily basis. Thank you for allowing us to participate in the care of this patient.
--- NOTE | 2023-01-29 13:30 | Surgery Progress Note ---
Date of Service January 29, 2023 Assessment & Plan (1) Pancreatitis: Plan: MIMI drain has been removed Left abdominal drain into epigastric fluid collection draining approximately 100 cc/day brownish liquid Apparently had vaginal bleeding with decreased H&H Transfuse 1 unit of blood PPN continues Admission and Anticipated Discharge Date Admission Date: January 15, 2023 Results & Data Vital Signs (Past 12 Hours) Vital Signs Temp Pulse Pulse Resp BP BP Pulse Ox 01/29/23 13:13 35.9 C L 84 24 141/90 H 97 01/29/23 12:58 35.8 C L 85 26 H 153/59 H 94 01/29/23 12:36 36 C L 95 H 23 133/73 93 01/29/23 08:00 01/29/23 11:12 36.5 C 100 H 24 130/77 94 01/29/23 08:58 82 01/29/23 07:12 36.5 C 92 H 24 145/86 H 94 01/29/23 04:48 36.5 C 82 18 133/74 93 01/29/23 02:33 36.8 C 82 18 155/82 H 93 O2 Del Method 01/29/23 13:13 01/29/23 12:58 01/29/23 12:36 01/29/23 08:00 Room Air 01/29/23 11:12 Room Air 01/29/23 08:58 01/29/23 07:12 Room Air 01/29/23 04:48 Room Air 01/29/23 02:33 Room Air PG Care Time/CCT Total # of Minutes Spent Total Time Spent with Patient: Total time spent is greater than 50% in coordination of care (as documented) at patient's floor/unit and/or counseling patient: Coding Level of Care Code None Diagnoses Pancreatitis K85.90
--- NOTE | 2023-01-29 13:52 | Hospitalist Progress Note ---
Date of Service January 29, 2023 Assessment & Plan (1) Septic shock: Plan: Patient was recently hospitalized for about a month during which she was managed for acute pancreatitis, acute cholangitis, septic shock, acute renal failure requiring dialysis briefly, paroxysmal A-fib. Underwent ERCP on 12/10 with removal of stones from the bile duct. Underwent lap adele with extensive lysis of adhesions on 12/10 by general surgery. Was discharged to snf facility and represented with abdominal and back pain. Labs on presentation showed worsening leukocytosis, worsening renal function and has been hypotensive. Being managed for septic shock.Was on Levophed which was weaned off around 5pm today (01/17). Sources of sepsis include possible intra-abdominal infection considering recent severe pancreatitis, surgical subhepatic drain in situ, recent UTI. Acute on chronic pancreatitis Intra-abdominal fluid collection-biliary leak, necrotic pancreatitis Continue on Zosyn for now after stent exchange performed by GI Initial ID consultation was done on 01/18/2023 and repeat follow-up will be done on 01/22/2023 Has pleural effusion (left) on CT abd/pelvis. Not in resp distress but she does have a slight cough. Appreciate ID input and recommendation to continue intravenous Zosyn for now New intra-abdominal collection is growing Enterococcus and daptomycin was added to cover possible VRE Continue Zosyn and daptomycin as per instruction from the ID 01/21/2023 Complaining of more abdominal pain though the white count has been improving CT of the abdomen and pelvis showed severe acute pancreatitis as on 01/15/2023 and a new perisplenic hemorrhage We will continue with current pain medications and hold Eliquis Hemoglobin did not drop and the pain is controlled Discussed with the surgeon, GI and IR facility over [facility] and plan is to repeat the scan tomorrow any [facility] fluid collection/hemorrhage is increasing the patient will be transferred to tertiary care center for definitive drainage Discussed with the family members about this measure Repeat scan today showed: Increasing fluid collection as below 1. Findings consistent with severe acute pancreatitis. 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 2. Perisplenic hemorrhage, stable to slightly increased since prior CT. The perisplenic fluid collection has increased in size since prior CT. Irregularity of the spleen consistent with splenic injury. 3. Increase in size of perihepatic and perigastric fluid collections with mass effect upon the stomach. The perihepatic fluid collection could be related to a bile leak or acute pancreatitis. 4. Increase in gas within the cholecystectomy bed. This is nonspecific given indwelling surgical drain and common bile duct stent however a persistent b iliary leak cannot be excluded. 5. No significant change in a moderate left pleural effusion with left lower lobe atelectasis. 6. Slight increase in small to moderate pelvic ascites. Discussed with the general surgery, ID specialist and informed her about ERCP/EUS tomorrow IV fluid was discontinued after EUS Condition remains stable Intra-abdominal fluid collections; as below Perisplenic fluid collection with possible bleeding from the spleen We will monitor-most recent CT of the abdomen and pelvis did show a decrease in perisplenic fluid/hemorrhage Discussed with the GI-epigastric and peripancreatic fluid collections will be drained with a larger drainage tube today that is for 01/26/2023 Patient remains critically stable Status post ultrasound guided perihepatic fluid aspiration and placement of drain Fluid study shows amylase of 3724 and lipase of 20,040-likely secondary to chronic pancreatitis Still draining and this morning I checked the collection he does more than 300 mL-microbiology has been negative so far. Prior fluid studies showed probable Enterococcus and further identification pending Has been on TPN and oral sepsis on top of that Getting intravenous Zosyn and daptomycin was added on The right-sided MIMI drain has been [id number] intra-abdominal drain is draining about 200 mL of fluid since this morning White count remains elevated likely secondary to chronic infection/inflammationno evidence of intra-abdominal abscess Rash on top of nose and adjoining area Likely due to rosacea doubt any allergic reaction from Zosyn Will restart Zosyn and continue for now Rosacea improved Hypertension Will start metoprolol succinate 50 mg twice daily from today Blood pressure seems to be reasonably controlled Acute blood loss anemia Chronic anemia complicated by bleeding from the vagina Hemoglobin went down to 6.7 in part due to dilution, renal failure and is complicated by vaginal bleeding [employer] consultation has been requested Ultrasound of the pelvis did show abnormal thickening of the endometrium Await [employer] evaluation and recommendation (2) Hyperthyroidism: Plan: Patient on methimazole which is known to have a side effect of pancreatitis. However, will cont for now as this pancreatitis is improved clinically and there are more likely causes/contributing factors. (3) Pleural effusion, left: Plan: hopeful this will improve after stent exchange and with time and movement. If no improvement, may need to consider thoracentesis. Repeat CT showed moderate left pleural effusion as before (4) Acute renal failure: Plan: Worsening renal function in setting of septic shock, around 2.6. Recent temporary dialysis last month which she is off of now. Nephro following. Creat appears stable although still worse than her baseline. Creatinine is little bit better today at 2.50 and potassium was 3.1 which was replaced Renal failure has been getting better with IV fluid at the same time getting edema IV fluid will be stopped following ERCP today Kidney function has been stable with slightly worsening creatinine today Kidney function remains stable but a little worse compared with yesterday The kidneys are improving and Lasix have been started (5) Acute pancreatitis: Plan: Intra-abdominal fluid collection as below: CT abdomen and pelvis without contrast on admission noted redemonstration of severe acute pancreatitis similar to 12/31/2022, CBD stent in satisfactory position, unchanged position of right subhepatic percutaneous drainage, bilateral nephrolithiasis without ureteral calculi or hydronephrosis, moderate left pleural effusion increased in size with left basilar consolidation suggestive of atelectasis, increased amount of abdominal left upper quadrant ascites Repeat CT of the abdomen pelvis showed: 01/21/2023 1. Severe acute pancreatitis is similar appearance to the 01/15/2023 exam with persistent acute peripancreatic fluid collections. 2. Prior cholecystectomy with decreased size of the air and fluid-filled structure within the tima hepatis. 3. Common bile duct stent in place with persistent pneumobilia. 4. Unchanged positioning of the right subhepatic percutaneous drainage catheter. 5. Increased amount of abdominopelvic ascites, notably surrounding the spleen with new perisplenic hemorrhage. 6. Bilateral nephrolithiasis. 7. Moderate left pleural effusion with left basilar consolidation. 8. Additional findings as above. We will continue with current antibiotic and pain medications Repeat CT scan of the abdomen pelvis showed increasing fluid collection around pancreas and also perisplenic area Discussed with the daughter and the for possible transfer to tertiary care center to perform IR procedures down the line Has acute necrotic pancreatitis with peripancreatic fluid collections-not amenable to drainage as per IR Status post ERCP/EUS and placement of new drainage on 01/24/2023 has been draining normally as per GI Repeat CT abdomen pelvis showed: IMPRESSION: 1. The spleen is irregular and diminutive suggesting splenic injury. A perisplenic fluid collection/hematoma has decreased in size from 01/23/2023. 2. An air/contrast level in the gallbladder fossa is likely related to cystic duct leak when compared to the recent ERCP images. 3. A loculated fluid collection around the lateral segment of the left lobe of the liver has increased in size from 01/23/2023. 4. Abdominal ascites has modestly increased from 01/23/2023. 5. Again seen is evidence of acute pancreatitis. Inflammatory change has mod estly improved from previous. 6. A fluid collection in the pancreatic neck could represent focal necrosis or developing pseudocyst. 7. Common bile duct stents are in place. Pneumobilia suggests patency. 8. Moderate left and trace right pleural effusions with dependent consolidation. 9. Bilateral nephrolithiasis. 10. Additional findings as above. Will have ultrasound-guided tube placement to drain more fluid from the above areas-discussed with the tree feller operator As above-likely going to be chronic pancreatitis Intra-abdominal drainage is still draining serosanguineous fluid Plan s/p ERCP with bile duct stent exchange. Bile leak was noted intraoperatively. New transcutaneous drain in place draining into colostomy bag. She is recovering well, slightly lethargic. Continues with therapy with plans for rehab. As above Nutritional status She has not been eating or drinking enough Discussed with the GI and plan to put coresafe and start tube feeding PPN has been started and also will encourage oral intake Continued PPN and oral sips as tolerated-has been taking very minimal orally Other significant medical condition as below Paroxysmal atrial fibrillation-rate is controlled and has been on Eliquis Depression-seems to be stable and Multiple sclerosis-she has been moving all of her extremities though has weakness in the legs. Has been bedbound for the last 1 month Since they splenic hemorrhage has improved a lot and the hemoglobin remains stable will restart Eliquis DVT ppx- apixaban -on hold due to splenic hemorrhage as above Full code Dispo-awaiting Detailed discussion with the daughter Explained current situation beginning from first admission to the hospital Answered all of their questions Discussed about partial cholecystectomy and the drainage in the gallbladder area with biliary leakage Discussed about ERCP/EUS that was done on of this month Discussed about peripancreatic fluid collection and also splenic area fluid collection/hemorrhage And also discussed about possible transfer to tertiary care center if needed and is accepted by an accepting physician Discussed with the -discussed with the daughter today for 01/28/2023 Discussed with the daughters in detail on 01/29/2023 Admission and Anticipated Discharge Date Admission Date: January 15, 2023 Subjective 01/21/2023 The patient was seen and examined in telemetry unit in presence of the She has been complaining of more abdominal pain today without any nausea and or vomiting Denies any fever and or chills Denies any shortness of breath 01/22/2023 The patient was seen and examined in telemetry unit in presence of the She remains weak and lethargic but does not have any more abdominal pain at rest Her vitals remained stable and her hemoglobin has not changed 01/23/2023 The patient was seen and examined in telemetry unit in presence of the She remains stable and does not complain of any increasing pain She could not tolerate coresef tube yesterday Minimal intake orally 01/24/2023 Patient was seen and examined in telemetry unit in presence of the She will be going for ERCP/EUS this afternoon Remains stable and denies any significant pain 01/25/2023 The patient was seen and examined in telemetry unit in presence of the daughter She has been weak and lethargic and has not been showing any progress Has had ERCP/EUS and placement of biliary stent and external drainage 01/26/2023 The patient was seen and examined in telemetry unit She has been stable and the blood pressure has been running on the lower side Denies any fever and or chills Abdominal pain is decreased 01/27/2023 The patient was seen and examined in telemetry unit She has been stable but remains very sick Denies any abdominal pain and has not been able to take anything orally yet No fever and or chills, no abdominal pain, nausea and or vomiting 01/28/2023 The patient was seen and examined in telemetry unit in presence of the daughter She has been feeling a little better today and denies any symptoms at rest Her blood pressure was noted to be high and he still has tachycardia No fever and or chills and no nausea and or vomiting 01/29/2023 The patient was seen and examined in telemetry unit in presence of the daughter's She has been stable but with ongoing vaginal bleeding Her abdominal pain is a stable She was noted to have a few beats of A-fib this morning Denies any fever and or chills Review of Systems Review of Systems: All systems reviewed and are unremarkable except as noted below Musculoskeletal: No acute arthritis involving any joint Neurologic: Alert and awake. Generally very weak and lethargic Physical Exam Physical Exam: Lying in bed without any acute distress Constitutional: well developed, well nourished, + ill appearing and + obese Eyes: PERRL, conjunctivae normal, anicteric sclerae ENMT: external ear and nose normal, oropharynx normal Neck: trachea midline, no thyromegaly Respiratory: no respiratory distress Auscultation: + diminished lung sounds and + crackles (Bibasilar crackles) Cardiovascular: Rate/Rhythm: regular rate and regular rhythm; not tachycardic Heart Sounds: normal S1 and normal S2; no murmur Extremities: + edema (1+ edema bilaterally) Gastrointestinal (Abdomen): Inspection/Auscultation: + abdomen distended (Mildly distended abdomen) Percussion/Palpation: + abdomen tender (Epigastrium and all over to some extent) and abdomen soft Musculoskeletal: No acute arthritis involving any joint Neurologic: Alert and awake. Moves all extremities legs less than the upper extremities Lymphatic: no cervical or axillary lymphadenopathy Results & Data Results & Data Vital Signs (Past 12 Hours) Vital Signs Temp Pulse Pulse Resp BP BP Pulse Ox 01/29/23 13:13 35.9 C L 84 24 141/90 H 97 01/29/23 12:58 35.8 C L 85 26 H 153/59 H 94 01/29/23 12:36 36 C L 95 H 23 133/73 93 01/29/23 08:00 01/29/23 11:12 36.5 C 100 H 24 130/77 94 01/29/23 08:58 82 01/29/23 07:12 36.5 C 92 H 24 145/86 H 94 01/29/23 04:48 36.5 C 82 18 133/74 93 01/29/23 02:33 36.8 C 82 18 155/82 H 93 O2 Del Method 01/29/23 13:13 01/29/23 12:58 01/29/23 12:36 01/29/23 08:00 Room Air 01/29/23 11:12 Room Air 01/29/23 08:58 01/29/23 07:12 Room Air 01/29/23 04:48 Room Air 01/29/23 02:33 Room Air Laboratory Results Short CBC 01/29/23 01/29/23 Range/Units 05:41 06:49 WBC 24.09 H (4.8-10.8) K/ul Hgb 6.9 L* 6.7 L* (12.0-16.0) g/dl Hct 20.7 L* 20.6 L* (37.0-47.0) % Plt Count 353 (130-400) K/uL BMP 01/29/23 05:41 Sodium 139 Potassium 3.0 L Chloride 103 Carbon Dioxide 27 BUN 65 H Creatinine 1.96 H D Glucose 121 H Calcium 7.6 L Medications Administered Current Inpatient Medications Acetaminophen (Acetaminophen 325 Mg Tab) 650 mg PO Q6 PRN PRN Reason: Fever Or MILD Pain Stop: 02/14/23 23:34 Last Admin: 01/28/23 21:16 Dose: 650 mg Amiodarone HCl (Amiodarone 200 Mg Tab) 200 mg PO QAM [facility] Stop: 02/22/23 06:59 Last Admin: 01/29/23 09:51 Dose: 200 mg Apixaban (Apixaban 5 Mg Tablet) 5 mg PO BID [facility] Stop: 02/15/23 08:59 Last Admin: 01/28/23 21:02 Dose: 5 mg Dextrose (Dextrose 50% 50 Ml Syringe) 25 - 50 ml IV UD PRN; Protocol PRN Reason: Hypoglycemia Protocol Stop: 02/15/23 08:04 Furosemide (Furosemide 40 Mg/4 Ml Vial) 40 mg IV Q12H [facility] Stop: 02/27/23 15:29 Last Admin: 01/29/23 03:26 Dose: 40 mg Glucagon (Glucagon For Inj 1 Mg Vial) 1 mg SQ UD PRN; Protocol PRN Reason: Hypoglycemia Protocol Stop: 02/15/23 08:04 Glucose (Glucose 40% Gel 15 Gm Tube) 15 - 30 gm PO UD PRN; Protocol PRN Reason: Hypoglycemia Protocol Stop: 02/15/23 08:04 Glucose (Glucose 10 Tab/Tube) 4 - 8 tab PO UD PRN; Protocol PRN Reason: Hypoglycemia Treatment Stop: 02/15/23 08:04 Daptomycin 425 mg/ Syringe 8.5 mls @ 4.25 mls/min IV Q48H [facility]; Protocol Stop: 02/04/23 08:59 Last Admin: 01/29/23 07:31 Dose: 4.25 mls/min Piperacillin Sod/Tazobactam (Sod 4.5 gm/ Dextrose) 120 mls @ 30 mls/hr IV Q8H [facility]; Protocol Stop: 02/05/23 08:14 Last Infusion: 01/29/23 12:44 Dose: Infused Amino Acids 1,807 ml/ (Nutrition (Parenteral)) 1,807 mls @ 75.3 mls/hr IV .Q24H [facility]; Protocol Stop: 01/29/23 15:59 Last Admin: 01/28/23 16:08 Dose: 75.3 mls/hr Albumin Human (Albumin 25% 100 Ml) 25 gm in 100 mls @ 50 mls/hr IV Q12H [facility] Stop: 01/31/23 15:29 Last Infusion: 01/29/23 05:26 Dose: Infused Sodium Chloride (Nss) 250 mls @ 15 mls/hr IV .[id number] PRN PRN Reason: For Transfusion Duration Stop: 01/29/23 18:51 Potassium Chloride ([place] / Wtr) 10 meq in 100 mls @ 100 mls/hr IV Q1H [facility] Magnesium Sulfate/Dextrose (Magnesium Sulfate / D5w) 1 gm in 100 mls @ 50 mls/hr IV Q2H [facility] Stop: 01/29/23 16:14 Amino Acids 1,801.16 ml/ (Nutrition (Parenteral)) 1,801.16 mls @ 75.048 mls/hr IV .Q24H [facility]; Protocol Stop: 01/30/23 15:59 Fat Emulsion-[place] Oil/Soybean Oil (Clinolipid 20% Iv Fat Emulsion) 250 mls @ 41.667 mls/hr IV .Q6H [facility] Stop: 01/29/23 21:59 Insulin Aspart (Insulin Aspart Per Unit Charge) 0 units SC Q4 [facility] Stop: 02/18/23 20:59 Last Admin: 01/29/23 12:44 Dose: Not Given Magnesium Oxide (Magnesium Oxide 400 Mg Tab) 400 mg PO QAM [facility] Stop: 02/15/23 08:59 Last Admin: 01/29/23 09:52 Dose: 400 mg Methimazole (Methimazole 5 Mg Tablet) 5 mg PO DAILY [facility] Stop: 02/15/23 08:59 Last Admin: 01/29/23 09:50 Dose: 5 mg Metoprolol Succinate (Metoprolol Succ 50mg Ext Rel Tab) 50 mg PO BID [facility] Stop: 02/27/23 11:59 Last Admin: 01/29/23 09:50 Dose: 50 mg Miscellaneous (Carbohydrates For Hypoglycemia ) 15 - 30 gm PO UD PRN PRN Reason: Hypoglycemia Protocol Stop: 02/15/23 08:04 Miscellaneous (Stop Clinolipid) 1 each N/A DAILY@2200 [facility] Stop: 02/27/23 21:59 Last Admin: 01/28/23 21:56 Dose: 1 each Miscellaneous Information (Tpn/Ppn Consult Pharmacy) 1 each N/A UD PRN PRN Reason: Consult Stop: 02/25/23 08:39 Potassium Chloride (Potassium Chloride Crtab 20 Meq Tabcr) 40 meq PO Q4H [facility] Stop: 01/29/23 15:46 Last Admin: 01/29/23 09:49 Dose: 40 meq Sertraline HCl (Sertraline Hcl 50 Mg Tablet) 50 mg PO QAM [facility] Stop: 02/15/23 08:59 Last Admin: 01/29/23 09:49 Dose: 50 mg (5) Acute pancreatitis Acute pancreatitis complication: unspecified Pancreatitis type: unspecified pancreatitis type Qualified Code(s): K85.90 - Acute pancreatitis without necrosis or infection, unspecified
--- NOTE | 2023-01-29 14:59 | Consultation ---
Date of Consultation January 29, 2023 Assessment & Plan (1) Post-menopausal bleeding: No intervention now. May need f/u endometrial sampling in the outpatient setting when stable and discharged. Discussed with Dr. Angulo Plan see above History of Present Illness Requesting Physician: Dr. Angulo Reason for Consultation: vaginal bleeding Attending Physician: Gerardo Angulo MD History of Present Illness 72 y/o F P1001 post menopausal for greater than 20 years who is in ICU for multiple medical problems with acute onset of vaginal bleeding since yesterday. She has been in the hospital for over 40 days and had some bleeding when the Tomlinson catheter was in. She now had a small amount of bleeding noted by the nurse not saturating a complete pad. She has been on Eliquis 5 mg PO bid. Allergies Allergy/AdvReac Type Severity Reaction Status Date / Time No Known Allergies Allergy Unverified 01/15/23 17:50 Home Medications Medication Instructions Recorded Confirmed Type apixaban 5 mg tablet (Eliquis) 5 mg PO BID #60 tabs 01/12/23 01/15/23 Rx levofloxacin 750 mg tablet 750 mg PO Q48H #3 tabs 01/12/23 01/15/23 Rx methimazole 5 mg tablet 5 mg PO DAILY #30 tabs 01/12/23 01/15/23 Rx acetaminophen 325 mg tablet 650 mg PO Q6 PRN Fever Or Pain 01/15/23 01/15/23 History amiodarone 200 mg tablet 200 mg PO QAM 01/15/23 01/15/23 History diclofenac sodium 1 % topical gel 2 g topical QID 01/15/23 01/15/23 History magnesium oxide 400 mg (241.3 mg 400 mg PO QAM 01/15/23 01/15/23 History magnesium) tablet menthol 0.44 %-zinc oxide 20.6 % 1 applic topical TID 01/15/23 01/15/23 History topical ointment (Calmoseptine) metoprolol succinate 50 mg 50 mg PO AMHS 01/15/23 01/15/23 History tablet,extended release 24 hr oxycodone 5 mg tablet 5 mg PO Q6 PRN pain,moderate 01/15/23 01/15/23 History oxycodone 5 mg tablet 10 mg PO Q6 PRN pain,severe 01/15/23 01/15/23 History sennosides 8.6 mg-docusate sodium 1 tab PO AMHS 01/15/23 01/15/23 History 50 mg tablet (Senokot-S) sertraline 50 mg tablet 50 mg PO QAM 01/15/23 01/15/23 History Patient History Medical History Acute renal failure Required several dialysis treatments during mid November to mid December 2022 admission Ambulatory dysfunction d/t MS Bile leak from gallbladder bed Cholangitis Depression History of claustrophobia Hypertension Hyperthyroidism Multiple sclerosis Pancreatitis Surgical History Hx laparoscopic cholecystectomy (12/10/22) Laparoscopic cholecystectomy with extensive lysis of adhesions, please add modifier for extensive difficulty and increased length of the procedure. Social History Smoking Status: Former smoker Smoking End Date: 1989; Second Hand Exposure: No; Do You Dip or Chew Tobacco: No; Tobacco Cessation Education Requested by Patient: No Hx Alcohol Use: No Hx Substance Use: No Preferred Language: Slovenian Communication Ability: Effective Visual Impairment: No Limitations Tray Drier Required: No Beliefs That Will Affect Care: None marital status: Single Current Living Situation: [facility] current occupational status: retired Other Information That Helps Us Care for You: No Feels Safe at Home: Yes Safety Concerns: Feels Safe At This Time Assistive Devices: Walker Review of Systems Review of Systems: All systems reviewed & are unremarkable except as noted in HPI & below Physical Exam Constitutional: WD/WN, vitals as above unable to get complete history from patient Genitourinary: no active bleeding Results & Data Vital Signs (Past 12 Hours) Vital Signs Temp Pulse Pulse Resp BP BP Pulse Ox 01/29/23 13:43 36 C L 83 24 115/79 94 01/29/23 13:43 36 C L 83 24 115/79 94 01/29/23 13:13 35.9 C L 84 24 141/90 H 97 01/29/23 12:58 35.8 C L 85 26 H 153/59 H 94 01/29/23 12:36 36 C L 95 H 23 133/73 93 01/29/23 08:00 01/29/23 11:12 36.5 C 100 H 24 130/77 94 01/29/23 08:58 82 01/29/23 07:12 36.5 C 92 H 24 145/86 H 94 01/29/23 04:48 36.5 C 82 18 133/74 93 O2 Del Method 01/29/23 13:43 01/29/23 13:43 01/29/23 13:13 01/29/23 12:58 01/29/23 12:36 01/29/23 08:00 Room Air 01/29/23 11:12 Room Air 01/29/23 08:58 01/29/23 07:12 Room Air 01/29/23 04:48 Room Air Laboratory Results 01/15/23 01/15/23 01/15/23 16:48 16:49 16:49 WBC 34.17 H* RBC 3.78 L Hgb 10.7 L Hct 33.0 L MCV 87.3 MCH 28.3 MCHC 32.4 RDW Std Deviation 46.4 H RDW Coeff of Mandy 14.5 Plt Count 431 H MPV 9.3 L Immature Gran % (Auto) Neut % (Auto) Lymph % (Auto) Nye % (Auto) Eos % (Auto) Baso % (Auto) Reticulocyte % (Auto) Neut # (Auto) Lymph # (Auto) Nye # (Auto) Eos # (Auto) Baso # (Auto) Reticulocyte # Immature Gran # (Auto) Absolute Nucleated RBC Nucleated RBC % (auto) Neutrophils % (Manual) 61 Lymphocytes % (Manual) 4 Monocytes % (Manual) 4 Eosinophils % (Manual) 2 Neutrophils # (Manual) 20.84 H Total Absolute Neuts 20.84 H Lymphocytes # (Manual) 1.37 Total Abs Lymphocytes 11.28 H Monocytes # (Manual) 1.37 H Eosinophils # (Manual) 0.68 H Large Granular Lymphs 29 # Lrg Granular Lymphs 9.91 Polychromasia Spherocytes Echinocytes Acanthocytes (Spur) Rouleaux PT 13.6 H INR 1.3 H APTT 39.1 H PTT Ratio 1.4 Sodium Potassium Chloride Carbon Dioxide Anion Gap BUN Creatinine Est Cr Clr Drug Dosing Est GFR ( Amer) Est GFR (Non-Af Amer) BUN/Creatinine Ratio Glucose POC Glucose Lactate 2.1 H* Calcium Phosphorus Magnesium Total Bilirubin Direct Bilirubin AST ALT Alkaline Phosphatase Troponin I High Sens Total Protein Albumin Globulin Albumin/Globulin Ratio Triglycerides Lipase Procalcitonin TSH Random Cortisol Urine Color Urine Appearance Urine pH Ur Specific Wise Urine Protein Urine Glucose (UA) Urine Ketones Urine Blood Urine Nitrite Urine Bilirubin Urine Urobilinogen Ur Leukocyte Esterase Urine WBC (Auto) Urine RBC (Auto) U Hyaline Cast (Auto) U Epithel Cells (Auto) Urine Bacteria (Auto) Ur Renal Epithelial Cell Granular Casts Urine Yeast Peritoneal Amylase Peritoneal Lipase Nasal Screen MRSA (PCR) Random Vancomycin SARS-CoV-2, RNA, NAAT Blood Type Antibody Screen Crossmatch 01/15/23 01/15/23 01/15/23 16:49 16:49 19:05 WBC RBC Hgb Hct MCV MCH MCHC RDW Std Deviation RDW Coeff of Mandy Plt Count MPV Immature Gran % (Auto) Neut % (Auto) Lymph % (Auto) Nye % (Auto) Eos % (Auto) Baso % (Auto) Reticulocyte % (Auto) Neut # (Auto) Lymph # (Auto) Nye # (Auto) Eos # (Auto) Baso # (Auto) Reticulocyte # Immature Gran # (Auto) Absolute Nucleated RBC Nucleated RBC % (auto) Neutrophils % (Manual) Lymphocytes % (Manual) Monocytes % (Manual) Eosinophils % (Manual) Neutrophils # (Manual) Total Absolute Neuts Lymphocytes # (Manual) Total Abs Lymphocytes Monocytes # (Manual) Eosinophils # (Manual) Large Granular Lymphs # Lrg Granular Lymphs Polychromasia Spherocytes Echinocytes Acanthocytes (Spur) Rouleaux PT INR APTT PTT Ratio Sodium 134 L Potassium 3.5 Chloride 100 Carbon Dioxide 22 Anion Gap 12 H BUN 46 H Creatinine 2.39 H D Est Cr Clr Drug Dosing 23.0 Est GFR ( Amer) 22.6 Est GFR (Non-Af Amer) 19.5 BUN/Creatinine Ratio 19.2 Glucose 115 H POC Glucose Lactate 1.7 Calcium 7.8 L Phosphorus Magnesium 1.8 Total Bilirubin 0.7 Direct Bilirubin AST 19 ALT 13 Alkaline Phosphatase 62 Troponin I High Sens 16.7 H Total Protein 6.8 Albumin 2.5 L Globulin 4.3 H Albumin/Globulin Ratio 0.6 L Triglycerides Lipase 287 H Procalcitonin 0.94 H TSH Random Cortisol Urine Color Urine Appearance Urine pH Ur Specific Wise Urine Protein Urine Glucose (UA) Urine Ketones Urine Blood Urine Nitrite Urine Bilirubin Urine Urobilinogen Ur Leukocyte Esterase Urine WBC (Auto) Urine RBC (Auto) U Hyaline Cast (Auto) U Epithel Cells (Auto) Urine Bacteria (Auto) Ur Renal Epithelial Cell Granular Casts Urine Yeast Peritoneal Amylase Peritoneal Lipase Nasal Screen MRSA (PCR) Random Vancomycin SARS-CoV-2, RNA, NAAT Blood Type Antibody Screen Crossmatch 01/15/23 01/15/23 01/16/23 20:08 23:57 00:01 WBC RBC Hgb Hct MCV MCH MCHC RDW Std Deviation RDW Coeff of Mandy Plt Count MPV Immature Gran % (Auto) Neut % (Auto) Lymph % (Auto) Nye % (Auto) Eos % (Auto) Baso % (Auto) Reticulocyte % (Auto) Neut # (Auto) Lymph # (Auto) Nye # (Auto) Eos # (Auto) Baso # (Auto) Reticulocyte # Immature Gran # (Auto) Absolute Nucleated RBC Nucleated RBC % (auto) Neutrophils % (Manual) Lymphocytes % (Manual) Monocytes % (Manual) Eosinophils % (Manual) Neutrophils # (Manual) Total Absolute Neuts Lymphocytes # (Manual) Total Abs Lymphocytes Monocytes # (Manual) Eosinophils # (Manual) Large Granular Lymphs # Lrg Granular Lymphs Polychromasia Spherocytes Echinocytes Acanthocytes (Spur) Rouleaux PT INR APTT PTT Ratio Sodium Potassium Chloride Carbon Dioxide Anion Gap BUN Creatinine Est Cr Clr Drug Dosing Est GFR ( Amer) Est GFR (Non-Af Amer) BUN/Creatinine Ratio Glucose POC Glucose 131 H Lactate Calcium Phosphorus Magnesium Total Bilirubin Direct Bilirubin AST ALT Alkaline Phosphatase Troponin I High Sens Total Protein Albumin Globulin Albumin/Globulin Ratio Triglycerides Lipase Procalcitonin TSH 2.049 Random Cortisol Urine Color Urine Appearance Urine pH Ur Specific Wise Urine Protein Urine Glucose (UA) Urine Ketones Urine Blood Urine Nitrite Urine Bilirubin Urine Urobilinogen Ur Leukocyte Esterase Urine WBC (Auto) Urine RBC (Auto) U Hyaline Cast (Auto) U Epithel Cells (Auto) Urine Bacteria (Auto) Ur Renal Epithelial Cell Granular Casts Urine Yeast Peritoneal Amylase Peritoneal Lipase Nasal Screen MRSA (PCR) Random Vancomycin SARS-CoV-2, RNA, NAAT NEGATIVE Blood Type Antibody Screen Crossmatch 01/16/23 01/16/23 01/16/23 00:01 00:01 00:15 WBC RBC Hgb Hct MCV MCH MCHC RDW Std Deviation RDW Coeff of Mandy Plt Count MPV Immature Gran % (Auto) Neut % (Auto) Lymph % (Auto) Nye % (Auto) Eos % (Auto) Baso % (Auto) Reticulocyte % (Auto) Neut # (Auto) Lymph # (Auto) Nye # (Auto) Eos # (Auto) Baso # (Auto) Reticulocyte # Immature Gran # (Auto) Absolute Nucleated RBC Nucleated RBC % (auto) Neutrophils % (Manual) Lymphocytes % (Manual) Monocytes % (Manual) Eosinophils % (Manual) Neutrophils # (Manual) Total Absolute Neuts Lymphocytes # (Manual) Total Abs Lymphocytes Monocytes # (Manual) Eosinophils # (Manual) Large Granular Lymphs # Lrg Granular Lymphs Polychromasia Spherocytes Echinocytes Acanthocytes (Spur) Rouleaux PT INR APTT PTT Ratio Sodium 135 L Potassium 3.6 Chloride 104 Carbon Dioxide 20 L Anion Gap 11 BUN 44 H Creatinine 2.40 H Est Cr Clr Drug Dosing 22.4 Est GFR ( Amer) 22.5 Est GFR (Non-Af Amer) 19.4 BUN/Creatinine Ratio 18.3 Glucose 127 H POC Glucose Lactate Calcium 7.2 L Phosphorus Magnesium Total Bilirubin Direct Bilirubin AST ALT Alkaline Phosphatase Troponin I High Sens Total Protein Albumin Globulin Albumin/Globulin Ratio Triglycerides Lipase 397 H Procalcitonin TSH Random Cortisol 55.24 Urine Color Yellow Urine Appearance Cloudy A Urine pH 5.0 Ur Specific Wise 1.015 Urine Protein 2+ H Urine Glucose (UA) Negative Urine Ketones Negative Urine Blood 2+ H Urine Nitrite Negative Urine Bilirubin Negative Urine Urobilinogen Negative Ur Leukocyte Esterase 2+ H Urine WBC (Auto) >30 H Urine RBC (Auto) 0-4 U Hyaline Cast (Auto) 1-5 U Epithel Cells (Auto) >30 H Urine Bacteria (Auto) Negative Ur Renal Epithelial Cell Not Reportable Granular Casts 1-5 H Urine Yeast Not Reportable Peritoneal Amylase Peritoneal Lipase Nasal Screen MRSA (PCR) Random Vancomycin SARS-CoV-2, RNA, NAAT Blood Type Antibody Screen Crossmatch 01/16/23 01/16/23 01/16/23 05:08 05:08 06:26 WBC 39.88 H* RBC 3.40 L Hgb 9.7 L Hct 30.1 L MCV 88.5 MCH 28.5 MCHC 32.2 RDW Std Deviation 46.5 H RDW Coeff of Mandy 14.4 Plt Count 421 H MPV 8.9 L Immature Gran % (Auto) 1.3 Neut % (Auto) 83.5 Lymph % (Auto) 9.2 Nye % (Auto) 4.8 Eos % (Auto) 0.9 Baso % (Auto) 0.3 Reticulocyte % (Auto) Neut # (Auto) 33.31 H Lymph # (Auto) 3.65 H Nye # (Auto) 1.92 H Eos # (Auto) 0.35 Baso # (Auto) 0.13 Reticulocyte # Immature Gran # (Auto) 0.52 H Absolute Nucleated RBC Nucleated RBC % (auto) Neutrophils % (Manual) Lymphocytes % (Manual) Monocytes % (Manual) Eosinophils % (Manual) Neutrophils # (Manual) Total Absolute Neuts Lymphocytes # (Manual) Total Abs Lymphocytes Monocytes # (Manual) Eosinophils # (Manual) Large Granular Lymphs # Lrg Granular Lymphs Polychromasia 1+ Spherocytes Echinocytes 2+ Acanthocytes (Spur) Rouleaux PT INR APTT PTT Ratio Sodium Potassium Chloride Carbon Dioxide Anion Gap BUN Creatinine Est Cr Clr Drug Dosing Est GFR ( Amer) Est GFR (Non-Af Amer) BUN/Creatinine Ratio Glucose POC Glucose 203 H Lactate Calcium Phosphorus 4.4 Magnesium 1.6 L Total Bilirubin 0.7 Direct Bilirubin 0.2 AST 17 ALT 11 Alkaline Phosphatase 60 Troponin I High Sens Total Protein 5.9 L Albumin 2.1 L Globulin Albumin/Globulin Ratio Triglycerides Lipase 303 H Procalcitonin TSH Random Cortisol Urine Color Urine Appearance Urine pH Ur Specific Wise Urine Protein Urine Glucose (UA) Urine Ketones Urine Blood Urine Nitrite Urine Bilirubin Urine Urobilinogen Ur Leukocyte Esterase Urine WBC (Auto) Urine RBC (Auto) U Hyaline Cast (Auto) U Epithel Cells (Auto) Urine Bacteria (Auto) Ur Renal Epithelial Cell Granular Casts Urine Yeast Peritoneal Amylase Peritoneal Lipase Nasal Screen MRSA (PCR) Random Vancomycin SARS-CoV-2, RNA, NAAT Blood Type Antibody Screen Crossmatch 01/16/23 01/16/23 01/16/23 08:02 11:56 17:31 WBC RBC Hgb Hct MCV MCH MCHC RDW Std Deviation RDW Coeff of Mandy Plt Count MPV Immature Gran % (Auto) Neut % (Auto) Lymph % (Auto) Nye % (Auto) Eos % (Auto) Baso % (Auto) Reticulocyte % (Auto) Neut # (Auto) Lymph # (Auto) Nye # (Auto) Eos # (Auto) Baso # (Auto) Reticulocyte # Immature Gran # (Auto) Absolute Nucleated RBC Nucleated RBC % (auto) Neutrophils % (Manual) Lymphocytes % (Manual) Monocytes % (Manual) Eosinophils % (Manual) Neutrophils # (Manual) Total Absolute Neuts Lymphocytes # (Manual) Total Abs Lymphocytes Monocytes # (Manual) Eosinophils # (Manual) Large Granular Lymphs # Lrg Granular Lymphs Polychromasia Spherocytes Echinocytes Acanthocytes (Spur) Rouleaux PT INR APTT PTT Ratio Sodium Potassium 3.4 L Chloride Carbon Dioxide Anion Gap BUN Creatinine Est Cr Clr Drug Dosing Est GFR ( Amer) Est GFR (Non-Af Amer) BUN/Creatinine Ratio Glucose POC Glucose 190 H 148 H Lactate Calcium Phosphorus 3.8 Magnesium 2.4 Total Bilirubin Direct Bilirubin AST ALT Alkaline Phosphatase Troponin I High Sens Total Protein Albumin Globulin Albumin/Globulin Ratio Triglycerides Lipase Procalcitonin TSH Random Cortisol Urine Color Urine Appearance Urine pH Ur Specific Wise Urine Protein Urine Glucose (UA) Urine Ketones Urine Blood Urine Nitrite Urine Bilirubin Urine Urobilinogen Ur Leukocyte Esterase Urine WBC (Auto) Urine RBC (Auto) U Hyaline Cast (Auto) U Epithel Cells (Auto) Urine Bacteria (Auto) Ur Renal Epithelial Cell Granular Casts Urine Yeast Peritoneal Amylase Peritoneal Lipase Nasal Screen MRSA (PCR) Random Vancomycin SARS-CoV-2, RNA, NAAT Blood Type Antibody Screen Crossmatch 01/16/23 01/16/23 01/16/23 17:37 23:36 Unknown WBC RBC Hgb Hct MCV MCH MCHC RDW Std Deviation RDW Coeff of Mandy Plt Count MPV Immature Gran % (Auto) Neut % (Auto) Lymph % (Auto) Nye % (Auto) Eos % (Auto) Baso % (Auto) Reticulocyte % (Auto) Neut # (Auto) Lymph # (Auto) Nye # (Auto) Eos # (Auto) Baso # (Auto) Reticulocyte # Immature Gran # (Auto) Absolute Nucleated RBC Nucleated RBC % (auto) Neutrophils % (Manual) Lymphocytes % (Manual) Monocytes % (Manual) Eosinophils % (Manual) Neutrophils # (Manual) Total Absolute Neuts Lymphocytes # (Manual) Total Abs Lymphocytes Monocytes # (Manual) Eosinophils # (Manual) Large Granular Lymphs # Lrg Granular Lymphs Polychromasia Spherocytes Echinocytes Acanthocytes (Spur) Rouleaux PT INR APTT PTT Ratio Sodium Potassium Chloride Carbon Dioxide Anion Gap BUN Creatinine Est Cr Clr Drug Dosing Est GFR ( Amer) Est GFR (Non-Af Amer) BUN/Creatinine Ratio Glucose POC Glucose 141 H 150 H Lactate Calcium Phosphorus Magnesium Total Bilirubin Direct Bilirubin AST ALT Alkaline Phosphatase Troponin I High Sens Total Protein Albumin Globulin Albumin/Globulin Ratio Triglycerides Lipase Procalcitonin TSH Random Cortisol Urine Color Urine Appearance Urine pH Ur Specific Wise Urine Protein Urine Glucose (UA) Urine Ketones Urine Blood Urine Nitrite Urine Bilirubin Urine Urobilinogen Ur Leukocyte Esterase Urine WBC (Auto) Urine RBC (Auto) U Hyaline Cast (Auto) U Epithel Cells (Auto) Urine Bacteria (Auto) Ur Renal Epithelial Cell Granular Casts Urine Yeast Peritoneal Amylase Peritoneal Lipase Nasal Screen MRSA (PCR) Negative Random Vancomycin SARS-CoV-2, RNA, NAAT Blood Type Antibody Screen Crossmatch 01/17/23 01/17/23 01/17/23 05:06 05:06 05:09 WBC 30.52 H* RBC 3.23 L Hgb 9.1 L Hct 28.1 L MCV 87.0 MCH 28.2 MCHC 32.4 RDW Std Deviation 45.6 RDW Coeff of Mandy 14.5 Plt Count 393 MPV 9.0 L Immature Gran % (Auto) 1.0 Neut % (Auto) 73.3 Lymph % (Auto) 11.0 Nye % (Auto) 6.9 Eos % (Auto) 7.4 Baso % (Auto) 0.4 Reticulocyte % (Auto) Neut # (Auto) 22.32 H Lymph # (Auto) 3.37 Nye # (Auto) 2.12 H Eos # (Auto) 2.26 H Baso # (Auto) 0.13 Reticulocyte # Immature Gran # (Auto) 0.32 H Absolute Nucleated RBC Nucleated RBC % (auto) Neutrophils % (Manual) Lymphocytes % (Manual) Monocytes % (Manual) Eosinophils % (Manual) Neutrophils # (Manual) Total Absolute Neuts Lymphocytes # (Manual) Total Abs Lymphocytes Monocytes # (Manual) Eosinophils # (Manual) Large Granular Lymphs # Lrg Granular Lymphs Polychromasia Spherocytes Echinocytes Acanthocytes (Spur) 2+ Rouleaux PT INR APTT PTT Ratio Sodium 133 L Potassium 3.9 Chloride 104 Carbon Dioxide 17 L Anion Gap 12 H BUN 41 H Creatinine 2.13 H Est Cr Clr Drug Dosing 25.2 Est GFR ( Amer) 25.9 Est GFR (Non-Af Amer) 22.4 BUN/Creatinine Ratio 19.2 Glucose 137 H POC Glucose Lactate Calcium 7.5 L Phosphorus 3.7 Magnesium 2.3 Total Bilirubin 0.6 Direct Bilirubin 0.3 H AST 11 L ALT 9 Alkaline Phosphatase 62 Troponin I High Sens Total Protein 6.1 Albumin 2.2 L Globulin 3.9 Albumin/Globulin Ratio 0.6 L Triglycerides Lipase Procalcitonin TSH Random Cortisol Urine Color Urine Appearance Urine pH Ur Specific Wise Urine Protein Urine Glucose (UA) Urine Ketones Urine Blood Urine Nitrite Urine Bilirubin Urine Urobilinogen Ur Leukocyte Esterase Urine WBC (Auto) Urine RBC (Auto) U Hyaline Cast (Auto) U Epithel Cells (Auto) Urine Bacteria (Auto) Ur Renal Epithelial Cell Granular Casts Urine Yeast Peritoneal Amylase Peritoneal Lipase Nasal Screen MRSA (PCR) Random Vancomycin 21.5 H SARS-CoV-2, RNA, NAAT Blood Type Antibody Screen Crossmatch 01/17/23 01/17/23 01/17/23 11:49 16:27 23:37 WBC RBC Hgb Hct MCV MCH MCHC RDW Std Deviation RDW Coeff of Mandy Plt Count MPV Immature Gran % (Auto) Neut % (Auto) Lymph % (Auto) Nye % (Auto) Eos % (Auto) Baso % (Auto) Reticulocyte % (Auto) Neut # (Auto) Lymph # (Auto) Nye # (Auto) Eos # (Auto) Baso # (Auto) Reticulocyte # Immature Gran # (Auto) Absolute Nucleated RBC Nucleated RBC % (auto) Neutrophils % (Manual) Lymphocytes % (Manual) Monocytes % (Manual) Eosinophils % (Manual) Neutrophils # (Manual) Total Absolute Neuts Lymphocytes # (Manual) Total Abs Lymphocytes Monocytes # (Manual) Eosinophils # (Manual) Large Granular Lymphs # Lrg Granular Lymphs Polychromasia Spherocytes Echinocytes Acanthocytes (Spur) Rouleaux PT INR APTT PTT Ratio Sodium Potassium Chloride Carbon Dioxide Anion Gap BUN Creatinine Est Cr Clr Drug Dosing Est GFR ( Amer) Est GFR (Non-Af Amer) BUN/Creatinine Ratio Glucose POC Glucose 139 H 150 H 119 H Lactate Calcium Phosphorus Magnesium Total Bilirubin Direct Bilirubin AST ALT Alkaline Phosphatase Troponin I High Sens Total Protein Albumin Globulin Albumin/Globulin Ratio Triglycerides Lipase Procalcitonin TSH Random Cortisol Urine Color Urine Appearance Urine pH Ur Specific Wise Urine Protein Urine Glucose (UA) Urine Ketones Urine Blood Urine Nitrite Urine Bilirubin Urine Urobilinogen Ur Leukocyte Esterase Urine WBC (Auto) Urine RBC (Auto) U Hyaline Cast (Auto) U Epithel Cells (Auto) Urine Bacteria (Auto) Ur Renal Epithelial Cell Granular Casts Urine Yeast Peritoneal Amylase Peritoneal Lipase Nasal Screen MRSA (PCR) Random Vancomycin SARS-CoV-2, RNA, NAAT Blood Type Antibody Screen Crossmatch 01/18/23 01/18/23 01/18/23 05:31 05:31 05:31 WBC 21.04 H RBC 2.93 L Hgb 8.3 L Hct 25.2 L MCV 86.0 MCH 28.3 MCHC 32.9 RDW Std Deviation 45.7 RDW Coeff of Mandy 14.6 H Plt Count 350 MPV 8.6 L Immature Gran % (Auto) 0.6 Neut % (Auto) 65.5 Lymph % (Auto) 15.4 Nye % (Auto) 7.3 Eos % (Auto) 10.7 Baso % (Auto) 0.5 Reticulocyte % (Auto) Neut # (Auto) 13.78 H Lymph # (Auto) 3.24 Nye # (Auto) 1.53 H Eos # (Auto) 2.25 H Baso # (Auto) 0.11 Reticulocyte # Immature Gran # (Auto) 0.13 Absolute Nucleated RBC Nucleated RBC % (auto) Neutrophils % (Manual) Lymphocytes % (Manual) Monocytes % (Manual) Eosinophils % (Manual) Neutrophils # (Manual) Total Absolute Neuts Lymphocytes # (Manual) Total Abs Lymphocytes Monocytes # (Manual) Eosinophils # (Manual) Large Granular Lymphs # Lrg Granular Lymphs Polychromasia Spherocytes Echinocytes Acanthocytes (Spur) Rouleaux PT INR APTT PTT Ratio Sodium 136 Potassium 4.0 Chloride 110 H Carbon Dioxide 17 L Anion Gap 9 BUN 40 H Creatinine 2.43 H D Est Cr Clr Drug Dosing 22.4 Est GFR ( Amer) 22.1 Est GFR (Non-Af Amer) 19.1 BUN/Creatinine Ratio 16.5 Glucose 94 POC Glucose Lactate Calcium 7.8 L Phosphorus 3.8 Magnesium 2.3 Total Bilirubin 0.5 Direct Bilirubin 0.1 AST 7 L ALT 8 Alkaline Phosphatase 59 Troponin I High Sens Total Protein 5.8 L Albumin 2.0 L Globulin 3.8 Albumin/Globulin Ratio 0.5 L Triglycerides Lipase Procalcitonin TSH Random Cortisol Urine Color Urine Appearance Urine pH Ur Specific Wise Urine Protein Urine Glucose (UA) Urine Ketones Urine Blood Urine Nitrite Urine Bilirubin Urine Urobilinogen Ur Leukocyte Esterase Urine WBC (Auto) Urine RBC (Auto) U Hyaline Cast (Auto) U Epithel Cells (Auto) Urine Bacteria (Auto) Ur Renal Epithelial Cell Granular Casts Urine Yeast Peritoneal Amylase Peritoneal Lipase Nasal Screen MRSA (PCR) Random Vancomycin 20.6 H SARS-CoV-2, RNA, NAAT Blood Type Antibody Screen Crossmatch 01/18/23 01/18/23 01/18/23 11:18 11:18 11:32 WBC RBC Hgb Hct MCV MCH MCHC RDW Std Deviation RDW Coeff of Mandy Plt Count MPV Immature Gran % (Auto) Neut % (Auto) Lymph % (Auto) Nye % (Auto) Eos % (Auto) Baso % (Auto) Reticulocyte % (Auto) 2.3 H Neut # (Auto) Lymph # (Auto) Nye # (Auto) Eos # (Auto) Baso # (Auto) Reticulocyte # 0.07 Immature Gran # (Auto) Absolute Nucleated RBC Nucleated RBC % (auto) Neutrophils % (Manual) Lymphocytes % (Manual) Monocytes % (Manual) Eosinophils % (Manual) Neutrophils # (Manual) Total Absolute Neuts Lymphocytes # (Manual) Total Abs Lymphocytes Monocytes # (Manual) Eosinophils # (Manual) Large Granular Lymphs # Lrg Granular Lymphs Polychromasia Spherocytes Echinocytes Acanthocytes (Spur) Rouleaux PT INR APTT PTT Ratio Sodium Potassium Chloride Carbon Dioxide Anion Gap BUN Creatinine Est Cr Clr Drug Dosing Est GFR ( Amer) Est GFR (Non-Af Amer) BUN/Creatinine Ratio Glucose POC Glucose 93 Lactate Calcium Phosphorus Magnesium Total Bilirubin Direct Bilirubin AST ALT Alkaline Phosphatase Troponin I High Sens Total Protein Albumin Globulin Albumin/Globulin Ratio Triglycerides Lipase Procalcitonin TSH Random Cortisol Urine Color Urine Appearance Urine pH Ur Specific Wise Urine Protein Urine Glucose (UA) Urine Ketones Urine Blood Urine Nitrite Urine Bilirubin Urine Urobilinogen Ur Leukocyte Esterase Urine WBC (Auto) Urine RBC (Auto) U Hyaline Cast (Auto) U Epithel Cells (Auto) Urine Bacteria (Auto) Ur Renal Epithelial Cell Granular Casts Urine Yeast Peritoneal Amylase Peritoneal Lipase Nasal Screen MRSA (PCR) Random Vancomycin SARS-CoV-2, RNA, NAAT Blood Type O Positive Antibody Screen NEGATIVE Crossmatch 01/18/23 01/18/23 01/19/23 17:58 23:33 05:37 WBC RBC Hgb Hct MCV MCH MCHC RDW Std Deviation RDW Coeff of Mandy Plt Count MPV Immature Gran % (Auto) Neut % (Auto) Lymph % (Auto) Nye % (Auto) Eos % (Auto) Baso % (Auto) Reticulocyte % (Auto) Neut # (Auto) Lymph # (Auto) Nye # (Auto) Eos # (Auto) Baso # (Auto) Reticulocyte # Immature Gran # (Auto) Absolute Nucleated RBC Nucleated RBC % (auto) Neutrophils % (Manual) Lymphocytes % (Manual) Monocytes % (Manual) Eosinophils % (Manual) Neutrophils # (Manual) Total Absolute Neuts Lymphocytes # (Manual) Total Abs Lymphocytes Monocytes # (Manual) Eosinophils # (Manual) Large Granular Lymphs # Lrg Granular Lymphs Polychromasia Spherocytes Echinocytes Acanthocytes (Spur) Rouleaux PT INR APTT PTT Ratio Sodium Potassium Chloride Carbon Dioxide Anion Gap BUN Creatinine Est Cr Clr Drug Dosing Est GFR ( Amer) Est GFR (Non-Af Amer) BUN/Creatinine Ratio Glucose POC Glucose 121 H 103 H 108 H Lactate Calcium Phosphorus Magnesium Total Bilirubin Direct Bilirubin AST ALT Alkaline Phosphatase Troponin I High Sens Total Protein Albumin Globulin Albumin/Globulin Ratio Triglycerides Lipase Procalcitonin TSH Random Cortisol Urine Color Urine Appearance Urine pH Ur Specific Wise Urine Protein Urine Glucose (UA) Urine Ketones Urine Blood Urine Nitrite Urine Bilirubin Urine Urobilinogen Ur Leukocyte Esterase Urine WBC (Auto) Urine RBC (Auto) U Hyaline Cast (Auto) U Epithel Cells (Auto) Urine Bacteria (Auto) Ur Renal Epithelial Cell Granular Casts Urine Yeast Peritoneal Amylase Peritoneal Lipase Nasal Screen MRSA (PCR) Random Vancomycin SARS-CoV-2, RNA, NAAT Blood Type Antibody Screen Crossmatch 01/19/23 01/19/23 01/19/23 05:50 12:21 17:04 WBC RBC Hgb Hct MCV MCH MCHC RDW Std Deviation RDW Coeff of Mandy Plt Count MPV Immature Gran % (Auto) Neut % (Auto) Lymph % (Auto) Nye % (Auto) Eos % (Auto) Baso % (Auto) Reticulocyte % (Auto) Neut # (Auto) Lymph # (Auto) Nye # (Auto) Eos # (Auto) Baso # (Auto) Reticulocyte # Immature Gran # (Auto) Absolute Nucleated RBC Nucleated RBC % (auto) Neutrophils % (Manual) Lymphocytes % (Manual) Monocytes % (Manual) Eosinophils % (Manual) Neutrophils # (Manual) Total Absolute Neuts Lymphocytes # (Manual) Total Abs Lymphocytes Monocytes # (Manual) Eosinophils # (Manual) Large Granular Lymphs # Lrg Granular Lymphs Polychromasia Spherocytes Echinocytes Acanthocytes (Spur) Rouleaux PT INR APTT PTT Ratio Sodium 138 Potassium 3.8 Chloride 110 H Carbon Dioxide 18 L Anion Gap 10 BUN 42 H Creatinine 2.61 H Est Cr Clr Drug Dosing 21.1 Est GFR ( Amer) 20.3 Est GFR (Non-Af Amer) 17.5 BUN/Creatinine Ratio 16.1 Glucose 86 POC Glucose 92 113 H Lactate Calcium 7.9 L Phosphorus 4.2 Magnesium 2.2 Total Bilirubin Direct Bilirubin AST ALT Alkaline Phosphatase Troponin I High Sens Total Protein Albumin Globulin Albumin/Globulin Ratio Triglycerides Lipase Procalcitonin TSH Random Cortisol Urine Color Urine Appearance Urine pH Ur Specific Wise Urine Protein Urine Glucose (UA) Urine Ketones Urine Blood Urine Nitrite Urine Bilirubin Urine Urobilinogen Ur Leukocyte Esterase Urine WBC (Auto) Urine RBC (Auto) U Hyaline Cast (Auto) U Epithel Cells (Auto) Urine Bacteria (Auto) Ur Renal Epithelial Cell Granular Casts Urine Yeast Peritoneal Amylase Peritoneal Lipase Nasal Screen MRSA (PCR) Random Vancomycin SARS-CoV-2, RNA, NAAT Blood Type Antibody Screen Crossmatch 01/19/23 01/20/23 01/20/23 20:48 06:13 06:13 WBC 16.12 H RBC 2.97 L Hgb 8.4 L Hct 26.4 L MCV 88.9 MCH 28.3 MCHC 31.8 L RDW Std Deviation 48.9 H RDW Coeff of Mandy 15.2 H Plt Count 361 MPV 8.5 L Immature Gran % (Auto) 0.8 Neut % (Auto) 73.3 Lymph % (Auto) 18.2 Nye % (Auto) 7.1 Eos % (Auto) 0.4 Baso % (Auto) 0.2 Reticulocyte % (Auto) Neut # (Auto) 11.81 H Lymph # (Auto) 2.93 Nye # (Auto) 1.15 H Eos # (Auto) 0.06 Baso # (Auto) 0.04 Reticulocyte # Immature Gran # (Auto) 0.13 Absolute Nucleated RBC Nucleated RBC % (auto) Neutrophils % (Manual) Lymphocytes % (Manual) Monocytes % (Manual) Eosinophils % (Manual) Neutrophils # (Manual) Total Absolute Neuts Lymphocytes # (Manual) Total Abs Lymphocytes Monocytes # (Manual) Eosinophils # (Manual) Large Granular Lymphs # Lrg Granular Lymphs Polychromasia Spherocytes Echinocytes Acanthocytes (Spur) Rouleaux PT INR APTT PTT Ratio Sodium 140 Potassium 4.3 Chloride 110 H Carbon Dioxide 17 L Anion Gap 13 H BUN 41 H Creatinine 2.65 H Est Cr Clr Drug Dosing 20.5 Est GFR ( Amer) 19.9 Est GFR (Non-Af Amer) 17.2 BUN/Creatinine Ratio 15.5 Glucose 132 H POC Glucose 140 H Lactate Calcium 7.8 L Phosphorus 6.1 H Magnesium 2.1 Total Bilirubin Direct Bilirubin AST ALT Alkaline Phosphatase Troponin I High Sens Total Protein Albumin Globulin Albumin/Globulin Ratio Triglycerides Lipase Procalcitonin TSH Random Cortisol Urine Color Urine Appearance Urine pH Ur Specific Wise Urine Protein Urine Glucose (UA) Urine Ketones Urine Blood Urine Nitrite Urine Bilirubin Urine Urobilinogen Ur Leukocyte Esterase Urine WBC (Auto) Urine RBC (Auto) U Hyaline Cast (Auto) U Epithel Cells (Auto) Urine Bacteria (Auto) Ur Renal Epithelial Cell Granular Casts Urine Yeast Peritoneal Amylase Peritoneal Lipase Nasal Screen MRSA (PCR) Random Vancomycin SARS-CoV-2, RNA, NAAT Blood Type Antibody Screen Crossmatch 01/20/23 01/20/23 01/20/23 07:14 11:31 16:24 WBC RBC Hgb Hct MCV MCH MCHC RDW Std Deviation RDW Coeff of Mandy Plt Count MPV Immature Gran % (Auto) Neut % (Auto) Lymph % (Auto) Nye % (Auto) Eos % (Auto) Baso % (Auto) Reticulocyte % (Auto) Neut # (Auto) Lymph # (Auto) Nye # (Auto) Eos # (Auto) Baso # (Auto) Reticulocyte # Immature Gran # (Auto) Absolute Nucleated RBC Nucleated RBC % (auto) Neutrophils % (Manual) Lymphocytes % (Manual) Monocytes % (Manual) Eosinophils % (Manual) Neutrophils # (Manual) Total Absolute Neuts Lymphocytes # (Manual) Total Abs Lymphocytes Monocytes # (Manual) Eosinophils # (Manual) Large Granular Lymphs # Lrg Granular Lymphs Polychromasia Spherocytes Echinocytes Acanthocytes (Spur) Rouleaux PT INR APTT PTT Ratio Sodium Potassium Chloride Carbon Dioxide Anion Gap BUN Creatinine Est Cr Clr Drug Dosing Est GFR ( Amer) Est GFR (Non-Af Amer) BUN/Creatinine Ratio Glucose POC Glucose 136 H 116 H 150 H Lactate Calcium Phosphorus Magnesium Total Bilirubin Direct Bilirubin AST ALT Alkaline Phosphatase Troponin I High Sens Total Protein Albumin Globulin Albumin/Globulin Ratio Triglycerides Lipase Procalcitonin TSH Random Cortisol Urine Color Urine Appearance Urine pH Ur Specific Wise Urine Protein Urine Glucose (UA) Urine Ketones Urine Blood Urine Nitrite Urine Bilirubin Urine Urobilinogen Ur Leukocyte Esterase Urine WBC (Auto) Urine RBC (Auto) U Hyaline Cast (Auto) U Epithel Cells (Auto) Urine Bacteria (Auto) Ur Renal Epithelial Cell Granular Casts Urine Yeast Peritoneal Amylase Peritoneal Lipase Nasal Screen MRSA (PCR) Random Vancomycin SARS-CoV-2, RNA, NAAT Blood Type Antibody Screen Crossmatch 01/20/23 01/21/23 01/21/23 20:06 05:56 07:09 WBC RBC Hgb Hct MCV MCH MCHC RDW Std Deviation RDW Coeff of Mandy Plt Count MPV Immature Gran % (Auto) Neut % (Auto) Lymph % (Auto) Nye % (Auto) Eos % (Auto) Baso % (Auto) Reticulocyte % (Auto) Neut # (Auto) Lymph # (Auto) Nye # (Auto) Eos # (Auto) Baso # (Auto) Reticulocyte # Immature Gran # (Auto) Absolute Nucleated RBC Nucleated RBC % (auto) Neutrophils % (Manual) Lymphocytes % (Manual) Monocytes % (Manual) Eosinophils % (Manual) Neutrophils # (Manual) Total Absolute Neuts Lymphocytes # (Manual) Total Abs Lymphocytes Monocytes # (Manual) Eosinophils # (Manual) Large Granular Lymphs # Lrg Granular Lymphs Polychromasia Spherocytes Echinocytes Acanthocytes (Spur) Rouleaux PT INR APTT PTT Ratio Sodium 140 Potassium 4.1 Chloride 109 H Carbon Dioxide 19 L Anion Gap 12 H BUN 43 H Creatinine 2.66 H Est Cr Clr Drug Dosing 20.2 Est GFR ( Amer) 19.8 Est GFR (Non-Af Amer) 17.1 BUN/Creatinine Ratio 16.2 Glucose 143 H POC Glucose 154 H 156 H Lactate Calcium 7.9 L Phosphorus 5.8 H Magnesium 2.1 Total Bilirubin Direct Bilirubin AST ALT Alkaline Phosphatase Troponin I High Sens Total Protein Albumin Globulin Albumin/Globulin Ratio Triglycerides Lipase Procalcitonin TSH Random Cortisol Urine Color Urine Appearance Urine pH Ur Specific Wise Urine Protein Urine Glucose (UA) Urine Ketones Urine Blood Urine Nitrite Urine Bilirubin Urine Urobilinogen Ur Leukocyte Esterase Urine WBC (Auto) Urine RBC (Auto) U Hyaline Cast (Auto) U Epithel Cells (Auto) Urine Bacteria (Auto) Ur Renal Epithelial Cell Granular Casts Urine Yeast Peritoneal Amylase Peritoneal Lipase Nasal Screen MRSA (PCR) Random Vancomycin SARS-CoV-2, RNA, NAAT Blood Type Antibody Screen Crossmatch 01/21/23 01/21/23 01/21/23 11:26 16:13 20:18 WBC RBC Hgb Hct MCV MCH MCHC RDW Std Deviation RDW Coeff of Mandy Plt Count MPV Immature Gran % (Auto) Neut % (Auto) Lymph % (Auto) Nye % (Auto) Eos % (Auto) Baso % (Auto) Reticulocyte % (Auto) Neut # (Auto) Lymph # (Auto) Nye # (Auto) Eos # (Auto) Baso # (Auto) Reticulocyte # Immature Gran # (Auto) Absolute Nucleated RBC Nucleated RBC % (auto) Neutrophils % (Manual) Lymphocytes % (Manual) Monocytes % (Manual) Eosinophils % (Manual) Neutrophils # (Manual) Total Absolute Neuts Lymphocytes # (Manual) Total Abs Lymphocytes Monocytes # (Manual) Eosinophils # (Manual) Large Granular Lymphs # Lrg Granular Lymphs Polychromasia Spherocytes Echinocytes Acanthocytes (Spur) Rouleaux PT INR APTT PTT Ratio Sodium Potassium Chloride Carbon Dioxide Anion Gap BUN Creatinine Est Cr Clr Drug Dosing Est GFR ( Amer) Est GFR (Non-Af Amer) BUN/Creatinine Ratio Glucose POC Glucose 128 H 133 H 132 H Lactate Calcium Phosphorus Magnesium Total Bilirubin Direct Bilirubin AST ALT Alkaline Phosphatase Troponin I High Sens Total Protein Albumin Globulin Albumin/Globulin Ratio Triglycerides Lipase Procalcitonin TSH Random Cortisol Urine Color Urine Appearance Urine pH Ur Specific Wise Urine Protein Urine Glucose (UA) Urine Ketones Urine Blood Urine Nitrite Urine Bilirubin Urine Urobilinogen Ur Leukocyte Esterase Urine WBC (Auto) Urine RBC (Auto) U Hyaline Cast (Auto) U Epithel Cells (Auto) Urine Bacteria (Auto) Ur Renal Epithelial Cell Granular Casts Urine Yeast Peritoneal Amylase Peritoneal Lipase Nasal Screen MRSA (PCR) Random Vancomycin SARS-CoV-2, RNA, NAAT Blood Type Antibody Screen Crossmatch 01/22/23 01/22/23 01/22/23 06:43 06:43 07:16 WBC 26.36 H RBC 2.97 L Hgb 8.4 L Hct 25.6 L MCV 86.2 MCH 28.3 MCHC 32.8 RDW Std Deviation 48.6 H RDW Coeff of Mandy 15.8 H Plt Count 366 MPV 8.9 L Immature Gran % (Auto) 1.3 Neut % (Auto) 73.1 Lymph % (Auto) 14.5 Nye % (Auto) 10.6 Eos % (Auto) 0.2 Baso % (Auto) 0.3 Reticulocyte % (Auto) Neut # (Auto) 19.29 H Lymph # (Auto) 3.82 H Nye # (Auto) 2.79 H Eos # (Auto) 0.06 Baso # (Auto) 0.07 Reticulocyte # Immature Gran # (Auto) 0.33 H Absolute Nucleated RBC Nucleated RBC % (auto) Neutrophils % (Manual) Lymphocytes % (Manual) Monocytes % (Manual) Eosinophils % (Manual) Neutrophils # (Manual) Total Absolute Neuts Lymphocytes # (Manual) Total Abs Lymphocytes Monocytes # (Manual) Eosinophils # (Manual) Large Granular Lymphs # Lrg Granular Lymphs Polychromasia Spherocytes Echinocytes Acanthocytes (Spur) Rouleaux PT INR APTT PTT Ratio Sodium 142 Potassium 3.7 Chloride 111 H Carbon Dioxide 18 L Anion Gap 13 H BUN 50 H Creatinine 2.78 H Est Cr Clr Drug Dosing 19.3 Est GFR ( Amer) 18.8 Est GFR (Non-Af Amer) 16.2 BUN/Creatinine Ratio 18.0 Glucose 135 H POC Glucose 140 H Lactate Calcium 7.7 L Phosphorus 5.7 H Magnesium 2.1 Total Bilirubin 0.5 Direct Bilirubin AST 15 ALT 10 Alkaline Phosphatase 67 Troponin I High Sens Total Protein 5.9 L Albumin 2.0 L Globulin 3.9 Albumin/Globulin Ratio 0.5 L Triglycerides Lipase Procalcitonin TSH Random Cortisol Urine Color Urine Appearance Urine pH Ur Specific Wise Urine Protein Urine Glucose (UA) Urine Ketones Urine Blood Urine Nitrite Urine Bilirubin Urine Urobilinogen Ur Leukocyte Esterase Urine WBC (Auto) Urine RBC (Auto) U Hyaline Cast (Auto) U Epithel Cells (Auto) Urine Bacteria (Auto) Ur Renal Epithelial Cell Granular Casts Urine Yeast Peritoneal Amylase Peritoneal Lipase Nasal Screen MRSA (PCR) Random Vancomycin SARS-CoV-2, RNA, NAAT Blood Type Antibody Screen Crossmatch 01/22/23 01/22/23 01/22/23 11:01 16:03 20:57 WBC RBC Hgb Hct MCV MCH MCHC RDW Std Deviation RDW Coeff of Mandy Plt Count MPV Immature Gran % (Auto) Neut % (Auto) Lymph % (Auto) Nye % (Auto) Eos % (Auto) Baso % (Auto) Reticulocyte % (Auto) Neut # (Auto) Lymph # (Auto) Nye # (Auto) Eos # (Auto) Baso # (Auto) Reticulocyte # Immature Gran # (Auto) Absolute Nucleated RBC Nucleated RBC % (auto) Neutrophils % (Manual) Lymphocytes % (Manual) Monocytes % (Manual) Eosinophils % (Manual) Neutrophils # (Manual) Total Absolute Neuts Lymphocytes # (Manual) Total Abs Lymphocytes Monocytes # (Manual) Eosinophils # (Manual) Large Granular Lymphs # Lrg Granular Lymphs Polychromasia Spherocytes Echinocytes Acanthocytes (Spur) Rouleaux PT INR APTT PTT Ratio Sodium Potassium Chloride Carbon Dioxide Anion Gap BUN Creatinine Est Cr Clr Drug Dosing Est GFR ( Amer) Est GFR (Non-Af Amer) BUN/Creatinine Ratio Glucose POC Glucose 145 H 137 H 150 H Lactate Calcium Phosphorus Magnesium Total Bilirubin Direct Bilirubin AST ALT Alkaline Phosphatase Troponin I High Sens Total Protein Albumin Globulin Albumin/Globulin Ratio Triglycerides Lipase Procalcitonin TSH Random Cortisol Urine Color Urine Appearance Urine pH Ur Specific Wise Urine Protein Urine Glucose (UA) Urine Ketones Urine Blood Urine Nitrite Urine Bilirubin Urine Urobilinogen Ur Leukocyte Esterase Urine WBC (Auto) Urine RBC (Auto) U Hyaline Cast (Auto) U Epithel Cells (Auto) Urine Bacteria (Auto) Ur Renal Epithelial Cell Granular Casts Urine Yeast Peritoneal Amylase Peritoneal Lipase Nasal Screen MRSA (PCR) Random Vancomycin SARS-CoV-2, RNA, NAAT Blood Type Antibody Screen Crossmatch 01/23/23 01/23/23 01/23/23 05:37 05:37 07:24 WBC 24.82 H RBC 2.86 L Hgb 8.0 L Hct 24.6 L MCV 86.0 MCH 28.0 MCHC 32.5 RDW Std Deviation 49.5 H RDW Coeff of Mandy 15.9 H Plt Count 399 MPV 9.1 L Immature Gran % (Auto) 1.5 Neut % (Auto) 73.8 Lymph % (Auto) 14.4 Nye % (Auto) 9.3 Eos % (Auto) 0.8 Baso % (Auto) 0.2 Reticulocyte % (Auto) Neut # (Auto) 18.35 H Lymph # (Auto) 3.58 H Nye # (Auto) 2.30 H Eos # (Auto) 0.19 Baso # (Auto) 0.04 Reticulocyte # Immature Gran # (Auto) 0.36 H Absolute Nucleated RBC 0.02 Nucleated RBC % (auto) 0.1 Neutrophils % (Manual) Lymphocytes % (Manual) Monocytes % (Manual) Eosinophils % (Manual) Neutrophils # (Manual) Total Absolute Neuts Lymphocytes # (Manual) Total Abs Lymphocytes Monocytes # (Manual) Eosinophils # (Manual) Large Granular Lymphs # Lrg Granular Lymphs Polychromasia Spherocytes Echinocytes Acanthocytes (Spur) Rouleaux PT INR APTT PTT Ratio Sodium 143 Potassium 3.1 L Chloride 112 H Carbon Dioxide 18 L Anion Gap 13 H BUN 48 H Creatinine 2.50 H Est Cr Clr Drug Dosing 21.7 Est GFR ( Amer) 21.4 Est GFR (Non-Af Amer) 18.4 BUN/Creatinine Ratio 19.2 Glucose 122 H POC Glucose 137 H Lactate Calcium 7.6 L Phosphorus 4.9 Magnesium 1.9 Total Bilirubin Direct Bilirubin AST ALT Alkaline Phosphatase Troponin I High Sens Total Protein Albumin Globulin Albumin/Globulin Ratio Triglycerides Lipase Procalcitonin TSH Random Cortisol Urine Color Urine Appearance Urine pH Ur Specific Wise Urine Protein Urine Glucose (UA) Urine Ketones Urine Blood Urine Nitrite Urine Bilirubin Urine Urobilinogen Ur Leukocyte Esterase Urine WBC (Auto) Urine RBC (Auto) U Hyaline Cast (Auto) U Epithel Cells (Auto) Urine Bacteria (Auto) Ur Renal Epithelial Cell Granular Casts Urine Yeast Peritoneal Amylase Peritoneal Lipase Nasal Screen MRSA (PCR) Random Vancomycin SARS-CoV-2, RNA, NAAT Blood Type Antibody Screen Crossmatch 01/23/23 01/23/23 01/23/23 11:18 16:18 20:27 WBC RBC Hgb Hct MCV MCH MCHC RDW Std Deviation RDW Coeff of Mandy Plt Count MPV Immature Gran % (Auto) Neut % (Auto) Lymph % (Auto) Nye % (Auto) Eos % (Auto) Baso % (Auto) Reticulocyte % (Auto) Neut # (Auto) Lymph # (Auto) Nye # (Auto) Eos # (Auto) Baso # (Auto) Reticulocyte # Immature Gran # (Auto) Absolute Nucleated RBC Nucleated RBC % (auto) Neutrophils % (Manual) Lymphocytes % (Manual) Monocytes % (Manual) Eosinophils % (Manual) Neutrophils # (Manual) Total Absolute Neuts Lymphocytes # (Manual) Total Abs Lymphocytes Monocytes # (Manual) Eosinophils # (Manual) Large Granular Lymphs # Lrg Granular Lymphs Polychromasia Spherocytes Echinocytes Acanthocytes (Spur) Rouleaux PT INR APTT PTT Ratio Sodium Potassium Chloride Carbon Dioxide Anion Gap BUN Creatinine Est Cr Clr Drug Dosing Est GFR ( Amer) Est GFR (Non-Af Amer) BUN/Creatinine Ratio Glucose POC Glucose 151 H 116 H 124 H Lactate Calcium Phosphorus Magnesium Total Bilirubin Direct Bilirubin AST ALT Alkaline Phosphatase Troponin I High Sens Total Protein Albumin Globulin Albumin/Globulin Ratio Triglycerides Lipase Procalcitonin TSH Random Cortisol Urine Color Urine Appearance Urine pH Ur Specific Wise Urine Protein Urine Glucose (UA) Urine Ketones Urine Blood Urine Nitrite Urine Bilirubin Urine Urobilinogen Ur Leukocyte Esterase Urine WBC (Auto) Urine RBC (Auto) U Hyaline Cast (Auto) U Epithel Cells (Auto) Urine Bacteria (Auto) Ur Renal Epithelial Cell Granular Casts Urine Yeast Peritoneal Amylase Peritoneal Lipase Nasal Screen MRSA (PCR) Random Vancomycin SARS-CoV-2, RNA, NAAT Blood Type Antibody Screen Crossmatch 01/24/23 01/24/23 01/24/23 05:44 05:44 05:44 WBC 20.18 H RBC 2.97 L Hgb 8.3 L Hct 26.1 L MCV 87.9 MCH 27.9 MCHC 31.8 L RDW Std Deviation 51.7 H RDW Coeff of Mandy 16.3 H Plt Count 435 H MPV 9.1 L Immature Gran % (Auto) 2.2 Neut % (Auto) 75.0 Lymph % (Auto) 14.8 Nye % (Auto) 6.7 Eos % (Auto) 1.1 Baso % (Auto) 0.2 Reticulocyte % (Auto) Neut # (Auto) 15.13 H Lymph # (Auto) 2.99 Nye # (Auto) 1.35 H Eos # (Auto) 0.23 Baso # (Auto) 0.04 Reticulocyte # Immature Gran # (Auto) 0.44 H Absolute Nucleated RBC 0.02 Nucleated RBC % (auto) 0.1 Neutrophils % (Manual) Lymphocytes % (Manual) Monocytes % (Manual) Eosinophils % (Manual) Neutrophils # (Manual) Total Absolute Neuts Lymphocytes # (Manual) Total Abs Lymphocytes Monocytes # (Manual) Eosinophils # (Manual) Large Granular Lymphs # Lrg Granular Lymphs Polychromasia Spherocytes Echinocytes Acanthocytes (Spur) Rouleaux PT 12.4 H INR 1.1 APTT PTT Ratio Sodium 142 Potassium 3.4 L Chloride 110 H Carbon Dioxide 16 L Anion Gap 16 H BUN 45 H Creatinine 2.27 H Est Cr Clr Drug Dosing 24.2 Est GFR ( Amer) 24.0 Est GFR (Non-Af Amer) 20.7 BUN/Creatinine Ratio 19.8 Glucose 169 H POC Glucose Lactate Calcium 7.5 L Phosphorus 5.1 H Magnesium 2.1 Total Bilirubin 0.4 Direct Bilirubin AST 16 ALT 9 Alkaline Phosphatase 89 Troponin I High Sens Total Protein 5.9 L Albumin 1.9 L Globulin 4.0 Albumin/Globulin Ratio 0.5 L Triglycerides Lipase Procalcitonin TSH Random Cortisol Urine Color Urine Appearance Urine pH Ur Specific Wise Urine Protein Urine Glucose (UA) Urine Ketones Urine Blood Urine Nitrite Urine Bilirubin Urine Urobilinogen Ur Leukocyte Esterase Urine WBC (Auto) Urine RBC (Auto) U Hyaline Cast (Auto) U Epithel Cells (Auto) Urine Bacteria (Auto) Ur Renal Epithelial Cell Granular Casts Urine Yeast Peritoneal Amylase Peritoneal Lipase Nasal Screen MRSA (PCR) Random Vancomycin SARS-CoV-2, RNA, NAAT Blood Type Antibody Screen Crossmatch 01/24/23 01/24/23 01/24/23 07:28 11:13 18:09 WBC RBC Hgb Hct MCV MCH MCHC RDW Std Deviation RDW Coeff of Mandy Plt Count MPV Immature Gran % (Auto) Neut % (Auto) Lymph % (Auto) Nye % (Auto) Eos % (Auto) Baso % (Auto) Reticulocyte % (Auto) Neut # (Auto) Lymph # (Auto) Nye # (Auto) Eos # (Auto) Baso # (Auto) Reticulocyte # Immature Gran # (Auto) Absolute Nucleated RBC Nucleated RBC % (auto) Neutrophils % (Manual) Lymphocytes % (Manual) Monocytes % (Manual) Eosinophils % (Manual) Neutrophils # (Manual) Total Absolute Neuts Lymphocytes # (Manual) Total Abs Lymphocytes Monocytes # (Manual) Eosinophils # (Manual) Large Granular Lymphs # Lrg Granular Lymphs Polychromasia Spherocytes Echinocytes Acanthocytes (Spur) Rouleaux PT INR APTT PTT Ratio Sodium Potassium Chloride Carbon Dioxide Anion Gap BUN Creatinine Est Cr Clr Drug Dosing Est GFR ( Amer) Est GFR (Non-Af Amer) BUN/Creatinine Ratio Glucose POC Glucose 191 H 175 H 152 H Lactate Calcium Phosphorus Magnesium Total Bilirubin Direct Bilirubin AST ALT Alkaline Phosphatase Troponin I High Sens Total Protein Albumin Globulin Albumin/Globulin Ratio Triglycerides Lipase Procalcitonin TSH Random Cortisol Urine Color Urine Appearance Urine pH Ur Specific Wise Urine Protein Urine Glucose (UA) Urine Ketones Urine Blood Urine Nitrite Urine Bilirubin Urine Urobilinogen Ur Leukocyte Esterase Urine WBC (Auto) Urine RBC (Auto) U Hyaline Cast (Auto) U Epithel Cells (Auto) Urine Bacteria (Auto) Ur Renal Epithelial Cell Granular Casts Urine Yeast Peritoneal Amylase Peritoneal Lipase Nasal Screen MRSA (PCR) Random Vancomycin SARS-CoV-2, RNA, NAAT Blood Type Antibody Screen Crossmatch 01/24/23 01/24/23 01/24/23 20:08 20:57 20:57 WBC 20.65 H RBC 3.17 L Hgb 8.9 L Hct 27.7 L MCV 87.4 MCH 28.1 MCHC 32.1 RDW Std Deviation 50.0 H RDW Coeff of Mandy 15.9 H Plt Count 430 H MPV 9.1 L Immature Gran % (Auto) 1.5 Neut % (Auto) 85.4 Lymph % (Auto) 10.1 Nye % (Auto) 2.6 Eos % (Auto) 0.2 Baso % (Auto) 0.2 Reticulocyte % (Auto) Neut # (Auto) 17.62 H Lymph # (Auto) 2.09 Nye # (Auto) 0.54 Eos # (Auto) 0.04 Baso # (Auto) 0.05 Reticulocyte # Immature Gran # (Auto) 0.31 H Absolute Nucleated RBC 0.03 Nucleated RBC % (auto) 0.1 Neutrophils % (Manual) Lymphocytes % (Manual) Monocytes % (Manual) Eosinophils % (Manual) Neutrophils # (Manual) Total Absolute Neuts Lymphocytes # (Manual) Total Abs Lymphocytes Monocytes # (Manual) Eosinophils # (Manual) Large Granular Lymphs # Lrg Granular Lymphs Polychromasia Spherocytes Echinocytes Acanthocytes (Spur) Rouleaux PT INR APTT PTT Ratio Sodium 141 Potassium 3.3 L Chloride 111 H Carbon Dioxide 20 L Anion Gap 10 BUN 42 H Creatinine 2.22 H Est Cr Clr Drug Dosing 24.8 Est GFR ( Amer) 24.7 Est GFR (Non-Af Amer) 21.3 BUN/Creatinine Ratio 18.9 Glucose 166 H POC Glucose 163 H Lactate Calcium 7.5 L Phosphorus 5.1 H Magnesium 1.9 Total Bilirubin 0.4 Direct Bilirubin AST 24 ALT 12 Alkaline Phosphatase 100 Troponin I High Sens Total Protein 6.4 Albumin 2.0 L Globulin 4.4 H Albumin/Globulin Ratio 0.5 L Triglycerides Lipase Procalcitonin TSH Random Cortisol Urine Color Urine Appearance Urine pH Ur Specific Wise Urine Protein Urine Glucose (UA) Urine Ketones Urine Blood Urine Nitrite Urine Bilirubin Urine Urobilinogen Ur Leukocyte Esterase Urine WBC (Auto) Urine RBC (Auto) U Hyaline Cast (Auto) U Epithel Cells (Auto) Urine Bacteria (Auto) Ur Renal Epithelial Cell Granular Casts Urine Yeast Peritoneal Amylase Peritoneal Lipase Nasal Screen MRSA (PCR) Random Vancomycin SARS-CoV-2, RNA, NAAT Blood Type Antibody Screen Crossmatch 01/24/23 01/25/23 01/25/23 20:57 06:35 06:35 WBC 21.37 H RBC 3.01 L Hgb 8.4 L Hct 26.0 L MCV 86.4 MCH 27.9 MCHC 32.3 RDW Std Deviation 51.0 H RDW Coeff of Mandy 16.5 H Plt Count 439 H MPV 9.1 L Immature Gran % (Auto) 0.7 Neut % (Auto) 82.2 Lymph % (Auto) 13.0 Nye % (Auto) 3.9 Eos % (Auto) 0.0 Baso % (Auto) 0.2 Reticulocyte % (Auto) Neut # (Auto) 17.54 H Lymph # (Auto) 2.78 Nye # (Auto) 0.83 H Eos # (Auto) 0.01 Baso # (Auto) 0.05 Reticulocyte # Immature Gran # (Auto) 0.16 Absolute Nucleated RBC 0.03 Nucleated RBC % (auto) 0.1 Neutrophils % (Manual) Lymphocytes % (Manual) Monocytes % (Manual) Eosinophils % (Manual) Neutrophils # (Manual) Total Absolute Neuts Lymphocytes # (Manual) Total Abs Lymphocytes Monocytes # (Manual) Eosinophils # (Manual) Large Granular Lymphs # Lrg Granular Lymphs Polychromasia 1+ Spherocytes 1+ Echinocytes Acanthocytes (Spur) Rouleaux PT INR APTT PTT Ratio Sodium 141 Potassium 3.6 Chloride 111 H Carbon Dioxide 18 L Anion Gap 12 H BUN 45 H Creatinine 2.21 H Est Cr Clr Drug Dosing 24.9 Est GFR ( Amer) 24.8 Est GFR (Non-Af Amer) 21.4 BUN/Creatinine Ratio 20.4 H Glucose 140 H POC Glucose Lactate Calcium 7.3 L Phosphorus Magnesium Total Bilirubin 0.4 Direct Bilirubin AST 23 ALT 12 Alkaline Phosphatase 98 Troponin I High Sens Total Protein 5.7 L Albumin 1.8 L Globulin 3.9 Albumin/Globulin Ratio 0.5 L Triglycerides Lipase Procalcitonin TSH 2.016 Random Cortisol Urine Color Urine Appearance Urine pH Ur Specific Wise Urine Protein Urine Glucose (UA) Urine Ketones Urine Blood Urine Nitrite Urine Bilirubin Urine Urobilinogen Ur Leukocyte Esterase Urine WBC (Auto) Urine RBC (Auto) U Hyaline Cast (Auto) U Epithel Cells (Auto) Urine Bacteria (Auto) Ur Renal Epithelial Cell Granular Casts Urine Yeast Peritoneal Amylase Peritoneal Lipase Nasal Screen MRSA (PCR) Random Vancomycin SARS-CoV-2, RNA, NAAT Blood Type Antibody Screen Crossmatch 01/25/23 01/25/23 01/25/23 07:30 11:38 16:08 WBC RBC Hgb Hct MCV MCH MCHC RDW Std Deviation RDW Coeff of Mandy Plt Count MPV Immature Gran % (Auto) Neut % (Auto) Lymph % (Auto) Nye % (Auto) Eos % (Auto) Baso % (Auto) Reticulocyte % (Auto) Neut # (Auto) Lymph # (Auto) Nye # (Auto) Eos # (Auto) Baso # (Auto) Reticulocyte # Immature Gran # (Auto) Absolute Nucleated RBC Nucleated RBC % (auto) Neutrophils % (Manual) Lymphocytes % (Manual) Monocytes % (Manual) Eosinophils % (Manual) Neutrophils # (Manual) Total Absolute Neuts Lymphocytes # (Manual) Total Abs Lymphocytes Monocytes # (Manual) Eosinophils # (Manual) Large Granular Lymphs # Lrg Granular Lymphs Polychromasia Spherocytes Echinocytes Acanthocytes (Spur) Rouleaux PT INR APTT PTT Ratio Sodium Potassium Chloride Carbon Dioxide Anion Gap BUN Creatinine Est Cr Clr Drug Dosing Est GFR ( Amer) Est GFR (Non-Af Amer) BUN/Creatinine Ratio Glucose POC Glucose 158 H 186 H 193 H Lactate Calcium Phosphorus Magnesium Total Bilirubin Direct Bilirubin AST ALT Alkaline Phosphatase Troponin I High Sens Total Protein Albumin Globulin Albumin/Globulin Ratio Triglycerides Lipase Procalcitonin TSH Random Cortisol Urine Color Urine Appearance Urine pH Ur Specific Wise Urine Protein Urine Glucose (UA) Urine Ketones Urine Blood Urine Nitrite Urine Bilirubin Urine Urobilinogen Ur Leukocyte Esterase Urine WBC (Auto) Urine RBC (Auto) U Hyaline Cast (Auto) U Epithel Cells (Auto) Urine Bacteria (Auto) Ur Renal Epithelial Cell Granular Casts Urine Yeast Peritoneal Amylase Peritoneal Lipase Nasal Screen MRSA (PCR) Random Vancomycin SARS-CoV-2, RNA, NAAT Blood Type Antibody Screen Crossmatch 01/25/23 01/26/23 01/26/23 19:47 03:51 03:52 WBC RBC Hgb Hct MCV MCH MCHC RDW Std Deviation RDW Coeff of Mandy Plt Count MPV Immature Gran % (Auto) Neut % (Auto) Lymph % (Auto) Nye % (Auto) Eos % (Auto) Baso % (Auto) Reticulocyte % (Auto) Neut # (Auto) Lymph # (Auto) Nye # (Auto) Eos # (Auto) Baso # (Auto) Reticulocyte # Immature Gran # (Auto) Absolute Nucleated RBC Nucleated RBC % (auto) Neutrophils % (Manual) Lymphocytes % (Manual) Monocytes % (Manual) Eosinophils % (Manual) Neutrophils # (Manual) Total Absolute Neuts Lymphocytes # (Manual) Total Abs Lymphocytes Monocytes # (Manual) Eosinophils # (Manual) Large Granular Lymphs # Lrg Granular Lymphs Polychromasia Spherocytes Echinocytes Acanthocytes (Spur) Rouleaux PT INR APTT PTT Ratio Sodium Potassium Chloride Carbon Dioxide Anion Gap BUN Creatinine Est Cr Clr Drug Dosing Est GFR ( Amer) Est GFR (Non-Af Amer) BUN/Creatinine Ratio Glucose POC Glucose 150 H 243 H 225 H Lactate Calcium Phosphorus Magnesium Total Bilirubin Direct Bilirubin AST ALT Alkaline Phosphatase Troponin I High Sens Total Protein Albumin Globulin Albumin/Globulin Ratio Triglycerides Lipase Procalcitonin TSH Random Cortisol Urine Color Urine Appearance Urine pH Ur Specific Wise Urine Protein Urine Glucose (UA) Urine Ketones Urine Blood Urine Nitrite Urine Bilirubin Urine Urobilinogen Ur Leukocyte Esterase Urine WBC (Auto) Urine RBC (Auto) U Hyaline Cast (Auto) U Epithel Cells (Auto) Urine Bacteria (Auto) Ur Renal Epithelial Cell Granular Casts Urine Yeast Peritoneal Amylase Peritoneal Lipase Nasal Screen MRSA (PCR) Random Vancomycin SARS-CoV-2, RNA, NAAT Blood Type Antibody Screen Crossmatch 01/26/23 01/26/23 01/26/23 03:56 05:47 05:47 WBC 29.60 H RBC 3.11 L Hgb 8.8 L Hct 27.3 L MCV 87.8 MCH 28.3 MCHC 32.2 RDW Std Deviation 53.2 H RDW Coeff of Mandy 17.0 H Plt Count 417 H MPV 9.3 L Immature Gran % (Auto) 1.0 Neut % (Auto) 82.0 Lymph % (Auto) 12.2 Nye % (Auto) 4.5 Eos % (Auto) 0.1 Baso % (Auto) 0.2 Reticulocyte % (Auto) Neut # (Auto) 24.26 H Lymph # (Auto) 3.62 H Nye # (Auto) 1.33 H Eos # (Auto) 0.02 Baso # (Auto) 0.06 Reticulocyte # Immature Gran # (Auto) 0.31 H Absolute Nucleated RBC 0.03 Nucleated RBC % (auto) 0.1 Neutrophils % (Manual) Lymphocytes % (Manual) Monocytes % (Manual) Eosinophils % (Manual) Neutrophils # (Manual) Total Absolute Neuts Lymphocytes # (Manual) Total Abs Lymphocytes Monocytes # (Manual) Eosinophils # (Manual) Large Granular Lymphs # Lrg Granular Lymphs Polychromasia Spherocytes Echinocytes Acanthocytes (Spur) Rouleaux PT INR APTT PTT Ratio Sodium 141 Potassium 3.4 L Chloride 110 H Carbon Dioxide 16 L Anion Gap 15 H BUN 52 H Creatinine 2.50 H Est Cr Clr Drug Dosing 22.4 Est GFR ( Amer) 21.4 Est GFR (Non-Af Amer) 18.4 BUN/Creatinine Ratio 20.8 H Glucose 176 H POC Glucose 209 H Lactate Calcium 7.4 L Phosphorus 5.8 H Magnesium 2.0 Total Bilirubin 0.4 Direct Bilirubin AST 20 ALT 11 Alkaline Phosphatase 97 Troponin I High Sens Total Protein 6.0 Albumin 1.8 L Globulin 4.2 H Albumin/Globulin Ratio 0.4 L Triglycerides 155 H Lipase Procalcitonin TSH Random Cortisol Urine Color Urine Appearance Urine pH Ur Specific Wise Urine Protein Urine Glucose (UA) Urine Ketones Urine Blood Urine Nitrite Urine Bilirubin Urine Urobilinogen Ur Leukocyte Esterase Urine WBC (Auto) Urine RBC (Auto) U Hyaline Cast (Auto) U Epithel Cells (Auto) Urine Bacteria (Auto) Ur Renal Epithelial Cell Granular Casts Urine Yeast Peritoneal Amylase Peritoneal Lipase Nasal Screen MRSA (PCR) Random Vancomycin SARS-CoV-2, RNA, NAAT Blood Type Antibody Screen Crossmatch 01/26/23 01/26/23 01/26/23 07:00 11:34 11:50 WBC RBC Hgb Hct MCV MCH MCHC RDW Std Deviation RDW Coeff of Mandy Plt Count MPV Immature Gran % (Auto) Neut % (Auto) Lymph % (Auto) Nye % (Auto) Eos % (Auto) Baso % (Auto) Reticulocyte % (Auto) Neut # (Auto) Lymph # (Auto) Nye # (Auto) Eos # (Auto) Baso # (Auto) Reticulocyte # Immature Gran # (Auto) Absolute Nucleated RBC Nucleated RBC % (auto) Neutrophils % (Manual) Lymphocytes % (Manual) Monocytes % (Manual) Eosinophils % (Manual) Neutrophils # (Manual) Total Absolute Neuts Lymphocytes # (Manual) Total Abs Lymphocytes Monocytes # (Manual) Eosinophils # (Manual) Large Granular Lymphs # Lrg Granular Lymphs Polychromasia Spherocytes Echinocytes Acanthocytes (Spur) Rouleaux PT INR APTT PTT Ratio Sodium Potassium Chloride Carbon Dioxide Anion Gap BUN Creatinine Est Cr Clr Drug Dosing Est GFR ( Amer) Est GFR (Non-Af Amer) BUN/Creatinine Ratio Glucose POC Glucose 191 H 184 H Lactate Calcium Phosphorus Magnesium Total Bilirubin Direct Bilirubin AST ALT Alkaline Phosphatase Troponin I High Sens Total Protein Albumin Globulin Albumin/Globulin Ratio Triglycerides Lipase Procalcitonin TSH Random Cortisol Urine Color Urine Appearance Urine pH Ur Specific Wise Urine Protein Urine Glucose (UA) Urine Ketones Urine Blood Urine Nitrite Urine Bilirubin Urine Urobilinogen Ur Leukocyte Esterase Urine WBC (Auto) Urine RBC (Auto) U Hyaline Cast (Auto) U Epithel Cells (Auto) Urine Bacteria (Auto) Ur Renal Epithelial Cell Granular Casts Urine Yeast Peritoneal Amylase 3724 Peritoneal Lipase 88740 Nasal Screen MRSA (PCR) Random Vancomycin SARS-CoV-2, RNA, NAAT Blood Type Antibody Screen Crossmatch 01/26/23 01/26/23 01/27/23 16:26 20:00 00:28 WBC RBC Hgb Hct MCV MCH MCHC RDW Std Deviation RDW Coeff of Mandy Plt Count MPV Immature Gran % (Auto) Neut % (Auto) Lymph % (Auto) Nye % (Auto) Eos % (Auto) Baso % (Auto) Reticulocyte % (Auto) Neut # (Auto) Lymph # (Auto) Nye # (Auto) Eos # (Auto) Baso # (Auto) Reticulocyte # Immature Gran # (Auto) Absolute Nucleated RBC Nucleated RBC % (auto) Neutrophils % (Manual) Lymphocytes % (Manual) Monocytes % (Manual) Eosinophils % (Manual) Neutrophils # (Manual) Total Absolute Neuts Lymphocytes # (Manual) Total Abs Lymphocytes Monocytes # (Manual) Eosinophils # (Manual) Large Granular Lymphs # Lrg Granular Lymphs Polychromasia Spherocytes Echinocytes Acanthocytes (Spur) Rouleaux PT INR APTT PTT Ratio Sodium Potassium Chloride Carbon Dioxide Anion Gap BUN Creatinine Est Cr Clr Drug Dosing Est GFR ( Amer) Est GFR (Non-Af Amer) BUN/Creatinine Ratio Glucose POC Glucose 146 H 196 H 172 H Lactate Calcium Phosphorus Magnesium Total Bilirubin Direct Bilirubin AST ALT Alkaline Phosphatase Troponin I High Sens Total Protein Albumin Globulin Albumin/Globulin Ratio Triglycerides Lipase Procalcitonin TSH Random Cortisol Urine Color Urine Appearance Urine pH Ur Specific Wise Urine Protein Urine Glucose (UA) Urine Ketones Urine Blood Urine Nitrite Urine Bilirubin Urine Urobilinogen Ur Leukocyte Esterase Urine WBC (Auto) Urine RBC (Auto) U Hyaline Cast (Auto) U Epithel Cells (Auto) Urine Bacteria (Auto) Ur Renal Epithelial Cell Granular Casts Urine Yeast Peritoneal Amylase Peritoneal Lipase Nasal Screen MRSA (PCR) Random Vancomycin SARS-CoV-2, RNA, NAAT Blood Type Antibody Screen Crossmatch 01/27/23 01/27/23 01/27/23 04:43 05:48 07:23 WBC RBC Hgb Hct MCV MCH MCHC RDW Std Deviation RDW Coeff of Mandy Plt Count MPV Immature Gran % (Auto) Neut % (Auto) Lymph % (Auto) Nye % (Auto) Eos % (Auto) Baso % (Auto) Reticulocyte % (Auto) Neut # (Auto) Lymph # (Auto) Nye # (Auto) Eos # (Auto) Baso # (Auto) Reticulocyte # Immature Gran # (Auto) Absolute Nucleated RBC Nucleated RBC % (auto) Neutrophils % (Manual) Lymphocytes % (Manual) Monocytes % (Manual) Eosinophils % (Manual) Neutrophils # (Manual) Total Absolute Neuts Lymphocytes # (Manual) Total Abs Lymphocytes Monocytes # (Manual) Eosinophils # (Manual) Large Granular Lymphs # Lrg Granular Lymphs Polychromasia Spherocytes Echinocytes Acanthocytes (Spur) Rouleaux PT INR APTT PTT Ratio Sodium 141 Potassium 3.4 L Chloride 108 H Carbon Dioxide 20 L Anion Gap 13 H BUN 59 H Creatinine 2.61 H Est Cr Clr Drug Dosing 21.6 Est GFR ( Amer) 20.3 Est GFR (Non-Af Amer) 17.5 BUN/Creatinine Ratio 22.6 H Glucose 135 H POC Glucose 166 H 158 H Lactate Calcium 7.5 L Phosphorus 5.1 H Magnesium 2.0 Total Bilirubin Direct Bilirubin AST ALT Alkaline Phosphatase Troponin I High Sens Total Protein Albumin Globulin Albumin/Globulin Ratio Triglycerides Lipase Procalcitonin TSH Random Cortisol Urine Color Urine Appearance Urine pH Ur Specific Wise Urine Protein Urine Glucose (UA) Urine Ketones Urine Blood Urine Nitrite Urine Bilirubin Urine Urobilinogen Ur Leukocyte Esterase Urine WBC (Auto) Urine RBC (Auto) U Hyaline Cast (Auto) U Epithel Cells (Auto) Urine Bacteria (Auto) Ur Renal Epithelial Cell Granular Casts Urine Yeast Peritoneal Amylase Peritoneal Lipase Nasal Screen MRSA (PCR) Random Vancomycin SARS-CoV-2, RNA, NAAT Blood Type Antibody Screen Crossmatch 01/27/23 01/27/23 01/27/23 11:11 16:14 20:12 WBC RBC Hgb Hct MCV MCH MCHC RDW Std Deviation RDW Coeff of Mandy Plt Count MPV Immature Gran % (Auto) Neut % (Auto) Lymph % (Auto) Nye % (Auto) Eos % (Auto) Baso % (Auto) Reticulocyte % (Auto) Neut # (Auto) Lymph # (Auto) Nye # (Auto) Eos # (Auto) Baso # (Auto) Reticulocyte # Immature Gran # (Auto) Absolute Nucleated RBC Nucleated RBC % (auto) Neutrophils % (Manual) Lymphocytes % (Manual) Monocytes % (Manual) Eosinophils % (Manual) Neutrophils # (Manual) Total Absolute Neuts Lymphocytes # (Manual) Total Abs Lymphocytes Monocytes # (Manual) Eosinophils # (Manual) Large Granular Lymphs # Lrg Granular Lymphs Polychromasia Spherocytes Echinocytes Acanthocytes (Spur) Rouleaux PT INR APTT PTT Ratio Sodium Potassium Chloride Carbon Dioxide Anion Gap BUN Creatinine Est Cr Clr Drug Dosing Est GFR ( Amer) Est GFR (Non-Af Amer) BUN/Creatinine Ratio Glucose POC Glucose 174 H 160 H 171 H Lactate Calcium Phosphorus Magnesium Total Bilirubin Direct Bilirubin AST ALT Alkaline Phosphatase Troponin I High Sens Total Protein Albumin Globulin Albumin/Globulin Ratio Triglycerides Lipase Procalcitonin TSH Random Cortisol Urine Color Urine Appearance Urine pH Ur Specific Wise Urine Protein Urine Glucose (UA) Urine Ketones Urine Blood Urine Nitrite Urine Bilirubin Urine Urobilinogen Ur Leukocyte Esterase Urine WBC (Auto) Urine RBC (Auto) U Hyaline Cast (Auto) U Epithel Cells (Auto) Urine Bacteria (Auto) Ur Renal Epithelial Cell Granular Casts Urine Yeast Peritoneal Amylase Peritoneal Lipase Nasal Screen MRSA (PCR) Random Vancomycin SARS-CoV-2, RNA, NAAT Blood Type Antibody Screen Crossmatch 01/28/23 01/28/23 01/28/23 00:51 06:14 06:14 WBC 28.14 H RBC 3.11 L Hgb 8.6 L Hct 26.6 L MCV 85.5 MCH 27.7 MCHC 32.3 RDW Std Deviation 50.7 H RDW Coeff of Mandy 17.0 H Plt Count 447 H MPV 9.4 Immature Gran % (Auto) 1.8 Neut % (Auto) 89.6 Lymph % (Auto) 7.0 Nye % (Auto) 1.3 Eos % (Auto) 0.1 Baso % (Auto) 0.2 Reticulocyte % (Auto) Neut # (Auto) 25.20 H Lymph # (Auto) 1.97 Nye # (Auto) 0.36 Eos # (Auto) 0.03 Baso # (Auto) 0.06 Reticulocyte # Immature Gran # (Auto) 0.52 H Absolute Nucleated RBC 0.05 Nucleated RBC % (auto) 0.2 Neutrophils % (Manual) Lymphocytes % (Manual) Monocytes % (Manual) Eosinophils % (Manual) Neutrophils # (Manual) Total Absolute Neuts Lymphocytes # (Manual) Total Abs Lymphocytes Monocytes # (Manual) Eosinophils # (Manual) Large Granular Lymphs # Lrg Granular Lymphs Polychromasia 2+ Spherocytes Echinocytes Acanthocytes (Spur) Rouleaux 3+ PT INR APTT PTT Ratio Sodium 141 Potassium 3.7 Chloride 106 Carbon Dioxide 24 Anion Gap 11 BUN 61 H Creatinine 2.29 H D Est Cr Clr Drug Dosing 24.5 Est GFR ( Amer) 23.8 Est GFR (Non-Af Amer) 20.5 BUN/Creatinine Ratio 26.6 H Glucose 136 H POC Glucose 172 H Lactate Calcium 7.3 L Phosphorus 4.0 D Magnesium 1.8 Total Bilirubin 0.4 Direct Bilirubin AST 19 ALT 9 Alkaline Phosphatase 108 H Troponin I High Sens Total Protein 6.4 Albumin 1.9 L Globulin 4.5 H Albumin/Globulin Ratio 0.4 L Triglycerides Lipase Procalcitonin TSH Random Cortisol Urine Color Urine Appearance Urine pH Ur Specific Wise Urine Protein Urine Glucose (UA) Urine Ketones Urine Blood Urine Nitrite Urine Bilirubin Urine Urobilinogen Ur Leukocyte Esterase Urine WBC (Auto) Urine RBC (Auto) U Hyaline Cast (Auto) U Epithel Cells (Auto) Urine Bacteria (Auto) Ur Renal Epithelial Cell Granular Casts Urine Yeast Peritoneal Amylase Peritoneal Lipase Nasal Screen MRSA (PCR) Random Vancomycin SARS-CoV-2, RNA, NAAT Blood Type Antibody Screen Crossmatch 01/28/23 01/28/23 01/28/23 07:26 11:26 16:28 WBC RBC Hgb Hct MCV MCH MCHC RDW Std Deviation RDW Coeff of Mandy Plt Count MPV Immature Gran % (Auto) Neut % (Auto) Lymph % (Auto) Nye % (Auto) Eos % (Auto) Baso % (Auto) Reticulocyte % (Auto) Neut # (Auto) Lymph # (Auto) Nye # (Auto) Eos # (Auto) Baso # (Auto) Reticulocyte # Immature Gran # (Auto) Absolute Nucleated RBC Nucleated RBC % (auto) Neutrophils % (Manual) Lymphocytes % (Manual) Monocytes % (Manual) Eosinophils % (Manual) Neutrophils # (Manual) Total Absolute Neuts Lymphocytes # (Manual) Total Abs Lymphocytes Monocytes # (Manual) Eosinophils # (Manual) Large Granular Lymphs # Lrg Granular Lymphs Polychromasia Spherocytes Echinocytes Acanthocytes (Spur) Rouleaux PT INR APTT PTT Ratio Sodium Potassium Chloride Carbon Dioxide Anion Gap BUN Creatinine Est Cr Clr Drug Dosing Est GFR ( Amer) Est GFR (Non-Af Amer) BUN/Creatinine Ratio Glucose POC Glucose 149 H 158 H 204 H Lactate Calcium Phosphorus Magnesium Total Bilirubin Direct Bilirubin AST ALT Alkaline Phosphatase Troponin I High Sens Total Protein Albumin Globulin Albumin/Globulin Ratio Triglycerides Lipase Procalcitonin TSH Random Cortisol Urine Color Urine Appearance Urine pH Ur Specific Wise Urine Protein Urine Glucose (UA) Urine Ketones Urine Blood Urine Nitrite Urine Bilirubin Urine Urobilinogen Ur Leukocyte Esterase Urine WBC (Auto) Urine RBC (Auto) U Hyaline Cast (Auto) U Epithel Cells (Auto) Urine Bacteria (Auto) Ur Renal Epithelial Cell Granular Casts Urine Yeast Peritoneal Amylase Peritoneal Lipase Nasal Screen MRSA (PCR) Random Vancomycin SARS-CoV-2, RNA, NAAT Blood Type Antibody Screen Crossmatch 01/28/23 01/28/23 01/28/23 16:30 20:01 23:57 WBC RBC Hgb Hct MCV MCH MCHC RDW Std Deviation RDW Coeff of Mandy Plt Count MPV Immature Gran % (Auto) Neut % (Auto) Lymph % (Auto) Nye % (Auto) Eos % (Auto) Baso % (Auto) Reticulocyte % (Auto) Neut # (Auto) Lymph # (Auto) Nye # (Auto) Eos # (Auto) Baso # (Auto) Reticulocyte # Immature Gran # (Auto) Absolute Nucleated RBC Nucleated RBC % (auto) Neutrophils % (Manual) Lymphocytes % (Manual) Monocytes % (Manual) Eosinophils % (Manual) Neutrophils # (Manual) Total Absolute Neuts Lymphocytes # (Manual) Total Abs Lymphocytes Monocytes # (Manual) Eosinophils # (Manual) Large Granular Lymphs # Lrg Granular Lymphs Polychromasia Spherocytes Echinocytes Acanthocytes (Spur) Rouleaux PT INR APTT PTT Ratio Sodium Potassium Chloride Carbon Dioxide Anion Gap BUN Creatinine Est Cr Clr Drug Dosing Est GFR ( Amer) Est GFR (Non-Af Amer) BUN/Creatinine Ratio Glucose POC Glucose 206 H 161 H 152 H Lactate Calcium Phosphorus Magnesium Total Bilirubin Direct Bilirubin AST ALT Alkaline Phosphatase Troponin I High Sens Total Protein Albumin Globulin Albumin/Globulin Ratio Triglycerides Lipase Procalcitonin TSH Random Cortisol Urine Color Urine Appearance Urine pH Ur Specific Wise Urine Protein Urine Glucose (UA) Urine Ketones Urine Blood Urine Nitrite Urine Bilirubin Urine Urobilinogen Ur Leukocyte Esterase Urine WBC (Auto) Urine RBC (Auto) U Hyaline Cast (Auto) U Epithel Cells (Auto) Urine Bacteria (Auto) Ur Renal Epithelial Cell Granular Casts Urine Yeast Peritoneal Amylase Peritoneal Lipase Nasal Screen MRSA (PCR) Random Vancomycin SARS-CoV-2, RNA, NAAT Blood Type Antibody Screen Crossmatch 01/29/23 01/29/23 01/29/23 04:45 05:41 05:41 WBC 24.09 H RBC 2.46 L Hgb 6.9 L* Hct 20.7 L* MCV 84.1 MCH 28.0 MCHC 33.3 RDW Std Deviation 48.4 H RDW Coeff of Mandy 16.6 H Plt Count 353 MPV 9.3 L Immature Gran % (Auto) 1.1 Neut % (Auto) 81.8 Lymph % (Auto) 11.5 Nye % (Auto) 5.0 Eos % (Auto) 0.5 Baso % (Auto) 0.1 Reticulocyte % (Auto) Neut # (Auto) 19.70 H Lymph # (Auto) 2.76 Nye # (Auto) 1.20 H Eos # (Auto) 0.13 Baso # (Auto) 0.03 Reticulocyte # Immature Gran # (Auto) 0.27 H Absolute Nucleated RBC 0.03 Nucleated RBC % (auto) 0.1 Neutrophils % (Manual) Lymphocytes % (Manual) Monocytes % (Manual) Eosinophils % (Manual) Neutrophils # (Manual) Total Absolute Neuts Lymphocytes # (Manual) Total Abs Lymphocytes Monocytes # (Manual) Eosinophils # (Manual) Large Granular Lymphs # Lrg Granular Lymphs Polychromasia 1+ Spherocytes Echinocytes Acanthocytes (Spur) Rouleaux PT INR APTT PTT Ratio Sodium 139 Potassium 3.0 L Chloride 103 Carbon Dioxide 27 Anion Gap 9 BUN 65 H Creatinine 1.96 H D Est Cr Clr Drug Dosing 28.6 Est GFR ( Amer) 28.7 Est GFR (Non-Af Amer) 24.8 BUN/Creatinine Ratio 33.2 H Glucose 121 H POC Glucose 132 H Lactate Calcium 7.6 L Phosphorus 2.6 D Magnesium 1.5 L Total Bilirubin Direct Bilirubin AST ALT Alkaline Phosphatase Troponin I High Sens Total Protein Albumin Globulin Albumin/Globulin Ratio Triglycerides Lipase Procalcitonin TSH Random Cortisol Urine Color Urine Appearance Urine pH Ur Specific Wise Urine Protein Urine Glucose (UA) Urine Ketones Urine Blood Urine Nitrite Urine Bilirubin Urine Urobilinogen Ur Leukocyte Esterase Urine WBC (Auto) Urine RBC (Auto) U Hyaline Cast (Auto) U Epithel Cells (Auto) Urine Bacteria (Auto) Ur Renal Epithelial Cell Granular Casts Urine Yeast Peritoneal Amylase Peritoneal Lipase Nasal Screen MRSA (PCR) Random Vancomycin SARS-CoV-2, RNA, NAAT Blood Type Antibody Screen Crossmatch 01/29/23 01/29/23 01/29/23 06:49 07:42 08:51 WBC RBC Hgb 6.7 L* Hct 20.6 L* MCV MCH MCHC RDW Std Deviation RDW Coeff of Mandy Plt Count MPV Immature Gran % (Auto) Neut % (Auto) Lymph % (Auto) Nye % (Auto) Eos % (Auto) Baso % (Auto) Reticulocyte % (Auto) Neut # (Auto) Lymph # (Auto) Nye # (Auto) Eos # (Auto) Baso # (Auto) Reticulocyte # Immature Gran # (Auto) Absolute Nucleated RBC Nucleated RBC % (auto) Neutrophils % (Manual) Lymphocytes % (Manual) Monocytes % (Manual) Eosinophils % (Manual) Neutrophils # (Manual) Total Absolute Neuts Lymphocytes # (Manual) Total Abs Lymphocytes Monocytes # (Manual) Eosinophils # (Manual) Large Granular Lymphs # Lrg Granular Lymphs Polychromasia Spherocytes Echinocytes Acanthocytes (Spur) Rouleaux PT INR APTT PTT Ratio Sodium Potassium Chloride Carbon Dioxide Anion Gap BUN Creatinine Est Cr Clr Drug Dosing Est GFR ( Amer) Est GFR (Non-Af Amer) BUN/Creatinine Ratio Glucose POC Glucose 123 H Lactate Calcium Phosphorus Magnesium Total Bilirubin Direct Bilirubin AST ALT Alkaline Phosphatase Troponin I High Sens Total Protein Albumin Globulin Albumin/Globulin Ratio Triglycerides Lipase Procalcitonin TSH Random Cortisol Urine Color Urine Appearance Urine pH Ur Specific Wise Urine Protein Urine Glucose (UA) Urine Ketones Urine Blood Urine Nitrite Urine Bilirubin Urine Urobilinogen Ur Leukocyte Esterase Urine WBC (Auto) Urine RBC (Auto) U Hyaline Cast (Auto) U Epithel Cells (Auto) Urine Bacteria (Auto) Ur Renal Epithelial Cell Granular Casts Urine Yeast Peritoneal Amylase Peritoneal Lipase Nasal Screen MRSA (PCR) Random Vancomycin SARS-CoV-2, RNA, NAAT Blood Type O Positive Antibody Screen NEGATIVE Crossmatch See Detail 01/29/23 11:41 WBC RBC Hgb Hct MCV MCH MCHC RDW Std Deviation RDW Coeff of Mandy Plt Count MPV Immature Gran % (Auto) Neut % (Auto) Lymph % (Auto) Nye % (Auto) Eos % (Auto) Baso % (Auto) Reticulocyte % (Auto) Neut # (Auto) Lymph # (Auto) Nye # (Auto) Eos # (Auto) Baso # (Auto) Reticulocyte # Immature Gran # (Auto) Absolute Nucleated RBC Nucleated RBC % (auto) Neutrophils % (Manual) Lymphocytes % (Manual) Monocytes % (Manual) Eosinophils % (Manual) Neutrophils # (Manual) Total Absolute Neuts Lymphocytes # (Manual) Total Abs Lymphocytes Monocytes # (Manual) Eosinophils # (Manual) Large Granular Lymphs # Lrg Granular Lymphs Polychromasia Spherocytes Echinocytes Acanthocytes (Spur) Rouleaux PT INR APTT PTT Ratio Sodium Potassium Chloride Carbon Dioxide Anion Gap BUN Creatinine Est Cr Clr Drug Dosing Est GFR ( Amer) Est GFR (Non-Af Amer) BUN/Creatinine Ratio Glucose POC Glucose 133 H Lactate Calcium Phosphorus Magnesium Total Bilirubin Direct Bilirubin AST ALT Alkaline Phosphatase Troponin I High Sens Total Protein Albumin Globulin Albumin/Globulin Ratio Triglycerides Lipase Procalcitonin TSH Random Cortisol Urine Color Urine Appearance Urine pH Ur Specific Wise Urine Protein Urine Glucose (UA) Urine Ketones Urine Blood Urine Nitrite Urine Bilirubin Urine Urobilinogen Ur Leukocyte Esterase Urine WBC (Auto) Urine RBC (Auto) U Hyaline Cast (Auto) U Epithel Cells (Auto) Urine Bacteria (Auto) Ur Renal Epithelial Cell Granular Casts Urine Yeast Peritoneal Amylase Peritoneal Lipase Nasal Screen MRSA (PCR) Random Vancomycin SARS-CoV-2, RNA, NAAT Blood Type Antibody Screen Crossmatch Diagnostic Findings ultrasound today reveals thickened endometrium 9 mm. and no adnexal mass or any uterine abnormality or mass noted. Small amount of ascites was again seen by ultrasound
[2023-01-29] MEDS ORDERED: DAPTOmycin 275 MG in SYRINGE 0 ML IV ONE (15:30)
[2023-01-29] MEDS: MAGNESIUM SULFATE / D5W 1 GM/100 ML BAG IV SCH ×2 (15:44→17:47)
[2023-01-29] MEDS ORDERED: [UNRECOGNIZED DRUG - OTHER] IV SCH (16:00)
[2023-01-29] MEDS ORDERED: PERIPHERAL TPN IV SCH (16:00)
[2023-01-29] MEDS ORDERED: CLINOLIPID 20% IV FAT EMULSION 250 ML IV SCH (16:00)
[2023-01-29] MEDS ORDERED: Nursing to Pharmacy Communication SCH (17:15)
[2023-01-29 17:34] LABS: BUN Creatinine Ratio 31.9 (10-20); Calcium 7.9 mg/dl (8.6-10.3); Creatinine Clr Calc Pharmacy 30.3 ml/min; Est GFR (African American) 30.8 ml/min; Est GFR (Non-African American) 26.5 ml/min; Potassium 3.3 mmol/L (3.5-5.1)
[2023-01-29] MEDS: STOP CLINOLIPID SCH (20:48)
[2023-01-29] MEDS ORDERED: POTASSIUM CHLORIDE CRTAB 20 MEQ TABCR PO ONE (21:00)
[2023-01-30] MEDS: PIPERACILLIN/TAZOBACTAM 4.5 GM in DEXTROSE 5% 100 ML IV SCH ×3 (00:14→15:24)
[2023-01-30] MEDS: INSULIN ASPART PER UNIT CHARGE SC SCH ×5 (00:24→21:32)
[2023-01-30] MEDS: FUROSEMIDE 40 MG/4 ML VIAL IV SCH ×2 (03:21→15:19)
[2023-01-30] MEDS: ALBUMIN 25% 100 mL 25 GM/100 ML VIAL IV SCH ×2 (03:21→15:20)
[2023-01-30] MEDS ORDERED: ATROPINE SULFATE 0.1 MG/ML 10ML SYR IV ONE (03:43)
[2023-01-30 05:05] LABS: BUN Creatinine Ratio 34.1 (10-20); Calcium 8.1 mg/dl (8.6-10.3); Creatinine Clr Calc Pharmacy 31.3 ml/min; Est GFR (Non-African American) 27.6 ml/min; Magnesium 2.1 mg/dl (1.7-2.4); Phosphorus 2.2 mg/dl (2.5-4.9); Potassium 4.2 mmol/L (3.5-5.1)
[2023-01-30] MEDS ORDERED: SODIUM PHOSPHATE 3 MMOL/1 ML INFUSION IV STA (05:12)
[2023-01-30] MEDS ORDERED: SODIUM PHOSPHATE 12 MMOL in SODIUM CHLORIDE 0.9% 250 ML IV ONE (05:30)
[2023-01-30 06:09] LABS: Basophils # (auto) 0.04 K/uL (0-0.2); Basophils % (auto) 0.2 %; Eosinophils # (auto) 0.13 K/uL (0-0.50); Eosinophils % (auto) 0.5 %; Hemoglobin 8.4 g/dl (12.0-16.0); Immature Granulocytes # (auto) 0.27 K/uL (0.01-0.20); Lymphocytes # (auto) 2.84 K/uL (1.2-3.4); Lymphocytes % (auto) 10.9 %; Mean Corpuscular Hemoglobin 29.3 pg (25.0-34.0); Mean Corpuscular Hgb Conc 33.6 g/dL (32.0-36.0); Mean Corpuscular Volume 87.1 fL (80.0-100.0); Monocytes % (auto) 5.8 %; Neutrophils # (auto) 21.17 K/uL (1.40-6.50); Neutrophils % (auto) 81.6 %; Nucleated RBC # (auto) 0.03 K/uL (0-0.12); Nucleated RBC % (auto) 0.1 %; Platelet Count 345 K/uL (130-400); Polychromasia 1+; RDW Coefficient of Variation 16.9 % (11.5-14.5); RDW Standard Deviation 49.5 fL (36.4-46.3); Red Blood Count 2.87 M/uL (4.20-5.40); White Blood Count 25.95 K/ul (4.8-10.8)
[2023-01-30 06:41] LABS: Base Excess ABG 6.2 mEq/L (-9-1.8); HCO3 ABG 29 mmol/L (19-24); Oxygen Saturation ABG 97.2 % (90-95); PCO2 ABG 35 mmHg (35-46); PO2 ABG 77 mmHg (80-95)
[2023-01-30 06:46] LABS: Allen Test Pos (Pos); pH ABG 7.53 (7.35-7.45)
--- NOTE | 2023-01-30 07:47 | Communication Note ---
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 Saw patient. Alert and oriented, seems weak, denied dizziness/lightheadedness, no chest pain or sob. Denies any complaints. BP stable. Ekg sinus bradycardia. On Monitor Hr ranging from 40's to 80".Labs looks ok. TSH ok. Abg shows ph 7.53. troponin 19.CXR pul congestion/infiltrates. Already on iv abx. on iv lasix with albumin. held amiodarone and Lopressor. Consulted cardiology. Notified Am Doc.
--- NOTE | 2023-01-30 07:49 | Nephrology Progress Note ---
Date of Service January 30, 2023 Assessment & Plan (1) Acute renal failure: Plan: nonoliguric ischemic ATN, stage 2, stable Her baseline creatinine as recently as the middle of November 2022 was actually 0.9. During mid November to mid December extended admission for cholangitis and pancreatitis with complications, she had acute renal failure requiring several treatments of intermittent hemodialysis, with last treatment January 01. Her renal function recovered sufficiently to stop hemodialysis. Her discharge creatinine was 1.8 on January 12. Her presenting creatinine this admission on January 15 was 2; she hovered in this range until 01/29, w/ slight improvement to 1.8. has edema and ascites and pl effusion but also has Alb of 1.8----continue lasix/albumin creatinine improved some past 48 hrs >> concern though w/ bleeding that this improvement may not last Continue to monitor renal function with daily BMP Avoid nephrotoxins >>while on daily lasix will give K 20 mEq po bid Admission and Anticipated Discharge Date Admission Date: January 15, 2023 Subjective guanako'd to 40s overnight; pacer bads on; ABG taken; seen on late am rounds; took nearly a whole boost today; tells me she feels better; that breathing is better Review of Systems Review of Systems: All systems reviewed & are unremarkable except as noted in Subjective Physical Exam Constitutional: well developed, well nourished, + frail appearing and cooperative; no acute distress Eyes: EOM intact bilaterally ENMT: Ears: no external ear abnormality Nose: no external nose abnormality Mouth: + dry oral mucous membranes Neck: no nuchal rigidity Respiratory: normal respiratory effort Auscultation: + diminished lung sounds; no crackles Cardiovascular: Rate/Rhythm: regular rate and regular rhythm Extremities: + edema (much diminished) Gastrointestinal (Abdomen): Inspection/Auscultation: normal bowel sounds, + abdominal surgical drain present and + high-pitched sounds Percussion/Palpation: abdomen soft; abdomen nontender Musculoskeletal: Extremities: strength 5/5 throughout and + abnormal strength (can't hold arms up) Skin: no rashes, warm and dry Psychiatric: Orientation: alert and oriented x 3 Results & Data Vital Signs (Past 12 Hours) Vital Signs Temp Pulse Pulse Resp BP Pulse Ox O2 Del Method 01/30/23 07:07 36.7 C 72 22 174/80 H 94 Room Air 01/30/23 03:02 37 C 83 18 103/81 94 Room Air 01/29/23 23:35 91 H 01/29/23 23:04 36.8 C 93 H 18 145/82 H 93 Room Air 01/29/23 22:38 Room Air 01/29/23 20:00 36.7 C 90 18 148/73 H 93 Room Air Laboratory Results 01/30/23 04:20 01/30/23 04:19
--- NOTE | 2023-01-30 08:21 | XRay Report ---
XR chest 1V portable HISTORY: congestion? COMPARISON: Chest 01/15/2023. FINDINGS: No pneumothorax. There is a small left pleural effusion. Patchy bilateral airspace opacitie s have progressed. There are low lung volumes. The cardiac silhouette remains mildly enlarged. Left b ase airspace opacities are again noted. IMPRESSION: 1. Interval development of patchy bilateral airspace opacities. This could be due to a pneumonia or p ulmonary edema. 2. Small left pleural effusions and left basilar airspace opacities persist. ACT 112: Negative or not required by law. Electronically signed by: Dannie Chowdhury M.D. 01/30/2023 8:20 AM
[2023-01-30] MEDS: SERTRALINE HCL 50 MG TABLET PO SCH (08:27)
[2023-01-30] MEDS: methIMAzole 5 MG TABLET PO SCH (08:27)
[2023-01-30] MEDS: POTASSIUM CHLORIDE CRTAB 20 MEQ TABCR PO SCH ×2 (08:28→20:33)
[2023-01-30] MEDS: MAGNESIUM OXIDE 400 MG TAB PO SCH (08:28)
--- NOTE | 2023-01-30 09:28 | Cardiology Progress Note ---
Date of Service January 30, 2023 Assessment & Plan (1) Sinus bradycardia: (2) Paroxysmal atrial fibrillation: (3) Sepsis: (4) Acute renal failure: (5) Hypertension: Plan Patient with transient episode of sinus bradycardia overnight with HR in the 40's. No symptoms. HS troponin not significantly elevated. No ischemic changes on EKG's, although most of the EKG's were poor tracings. At time of event, patient had been currently receiving metoprolol 50 mg BID and amiodarone 200 mg daily for episodes of PAF earlier this admission in setting of severe sepsis. Amiodarone and metoprolol held this morning. Heart rates have improved, now in the 80's. She had brief episode of PAF RVR this morning as well, now resolved and back in NSR. High likelihood of recurrent afib if beta jorge luis/amio continues to be held. Recommend resuming low dose metoprolol at 12.5 mg and monitor HR's. Her [employer] bleeding has resolved. Eliquis is currently on hold. She required 1 unit of PRBC's overnight due to hbg of 6.4, and now hbg 8.4. At this time, she likely has some degree of tachybrady, but was asymptomatic with events and no current indication for PPM. Would avoid given her current comorbidities and sepsis. Monitor on telemetry. SCD's for DVT proph while Eliquis on hold. case discussed with Dr. Cerna Admission and Anticipated Discharge Date Admission Date: January 15, 2023 Supervising Physician Co-Signing Physician Notes The patient was personally seen and physical exam was performed. Agree with findings as documented by Cheryle Sanchez PA-C. Refer to separate note for additional details. Subjective See full cardiology consult from earlier this admission. Cardiology was reconsulted for episode of sinus bradycardia overnight, along with drop in hbg to 6.4, after vaginal bleeding yesterday. Eliquis held yesterday after bleeding. She received 1 unit PRBC's. Hbg improved this morning. HR's improved to 80's, currently NSR. She also had brief run of afib RVR this morning. Amiodarone 200 mg and metoprolol succinate 50 mg BID were held this morning after episode of bradycardia. No symptoms during these spells. No chest pain or dyspnea. Currently resting in bed comfortably. Family at bedside. Review of Systems Review of Systems: All systems reviewed & are unremarkable except as noted in HPI & below Physical Exam Constitutional: WD/WN, vitals as above + ill appearing and + lethargic Respiratory: normal respiratory effort Auscultation: + diminished lung sounds; no crackles and no rales Cardiovascular: Rate/Rhythm: regular rate and regular rhythm Heart Sounds: no murmur Extremities: + edema (trace pretibial and pedal edema) Gastrointestinal (Abdomen): normal bowel sounds, soft, nontender, no hepatosplenomegaly Results & Data Vital Signs (Past 12 Hours) Vital Signs Temp Pulse Pulse Resp BP Pulse Ox O2 Del Method 01/30/23 07:07 36.7 C 72 22 174/80 H 94 Room Air 01/30/23 03:02 37 C 83 18 103/81 94 Room Air 01/29/23 23:35 91 H 01/29/23 23:04 36.8 C 93 H 18 145/82 H 93 Room Air 01/29/23 22:38 Room Air Laboratory Results Cardiac Enzymes 01/30/23 Range/Units 04:19 Troponin I High Sens 19.0 H (0-14) pg/ml CBC 01/30/23 Range/Units 04:20 WBC 25.95 H (4.8-10.8) K/ul RBC 2.87 L (4.20-5.40) M/uL Hgb 8.4 L (12.0-16.0) g/dl Hct 25.0 L (37.0-47.0) % Plt Count 345 (130-400) K/uL Neut # (Auto) 21.17 H (1.40-6.50) K/uL Lymph # (Auto) 2.84 (1.2-3.4) K/uL Mckenzie # (Auto) 1.50 H (0.11-0.59) K/uL Eos # (Auto) 0.13 (0-0.50) K/uL Baso # (Auto) 0.04 (0-0.2) K/uL Comprehensive Metabolic Panel 01/29/23 01/30/23 Range/Units 16:59 04:19 Sodium 142 142 (136-145) mmol/L Potassium 3.3 L 4.2 D (3.5-5.1) mmol/L Chloride 102 104 (98-107) mmol/L Carbon Dioxide 28 26 (21-32) mmol/L BUN 59 H 61 H (6-23) mg/dl Creatinine 1.85 H 1.79 H (0.6-1.2) mg/dl Glucose 135 H 135 H (70-99(Fasting)) mg/dl Calcium 7.9 L 8.1 L (8.6-10.3) mg/dl Intake and Output 01/29/23 01/30/23 01/30/23 22:59 06:59 14:59 Intake Total 2787 / 3138.733 231.733 / 3138.733 242.267 / 242.267 Output Total 1830 / 2880 1050 / 2880 Balance 957 / 258.733 -818.267 / 258.733 242.267 / 242.267 Intake: IV 2477 / 2828.733 231.733 / 2828.733 242.267 / 242.267 ALBUMIN 25% 100 mL 25 gm In 100 100 / 200 100 / 200 ml @ 50 mls/hr IV Q12H [facility] Rx# :[id number] Aa 4.25%/D5w 2L 1,807 ml In 1807 / 1807 Custom Peripheral TPN bag 0 ml @ 75.3 mls/hr IV .Q24H [facility] Rx#: [id number] Clinolipid 20% IV Fat Emulsion 250 / 250 250 ml @ 41.667 mls/hr IV .Q6H [facility] Rx#:[id number] Magnesium Sulfate / D5w 1 gm In 200 / 200 100 ml @ 50 mls/hr IV Q2H [facility] Rx#:[id number] Piperacillin/Tazobactam 4.5 gm 120 / 360 120 / 360 In Dextrose 5% 100 ml @ 30 mls/ hr IV Q8H [facility] Rx#:[id number] Sodium Phosphate 12 mmol In 11.733 / 11.733 242.267 / 242.267 Sodium Chloride 0.9% 250 ml @ 83 mls/hr IV ONE ONE Rx#: [id number] Intake (Blood Product) Amt 310 / 310 Packed Cells, Leukoreduced 310 / 310 Unit [id number] Output: Urine Amount (Catheter) 1800 / 2600 800 / 2600 External 1800 / 2600 800 / 2600 Drain Output 30 / 280 250 / 280 Left Abdomen 30 / 280 250 / 280 Other: Other Intake Source sips sips # Unmeasured Voids 2 Weight 95 kg Diagnostic Findings Multiple EKG's reviewed from overnight - mostly were poor tracings with significant artifact, limiting diagnostic . Appeared to be sinus bradycardia with HR's in the mid 40's. Occ PAC's or short runs of non sustained atrial tach. Telemetry reviewed. Currently NSR in the 80's. Earlier this morning she had brief run of afib RVR in the 110's. Overnight between 3:30 and 8:30 she would have runs of sinus bradycardia in the 40's. No pauses or evidence of high degree AV block. She was asymptomatic. Medications Administered Current Inpatient Medications Acetaminophen (Acetaminophen 325 Mg Tab) 650 mg PO Q6 PRN PRN Reason: Fever Or MILD Pain Stop: 02/14/23 23:34 Last Admin: 01/28/23 21:16 Dose: 650 mg Amiodarone HCl (Amiodarone 200 Mg Tab) 200 mg PO QAM [facility] Stop: 02/22/23 06:59 Last Admin: 01/29/23 09:51 Dose: 200 mg Apixaban (Apixaban 5 Mg Tablet) 5 mg PO BID [facility] Stop: 02/15/23 08:59 Last Admin: 01/28/23 21:02 Dose: 5 mg Dextrose (Dextrose 50% 50 Ml Syringe) 25 - 50 ml IV UD PRN; Protocol PRN Reason: Hypoglycemia Protocol Stop: 02/15/23 08:04 Furosemide (Furosemide 40 Mg/4 Ml Vial) 40 mg IV Q12H [facility] Stop: 02/27/23 15:29 Last Admin: 01/30/23 03:21 Dose: 40 mg Glucagon (Glucagon For Inj 1 Mg Vial) 1 mg SQ UD PRN; Protocol PRN Reason: Hypoglycemia Protocol Stop: 02/15/23 08:04 Glucose (Glucose 40% Gel 15 Gm Tube) 15 - 30 gm PO UD PRN; Protocol PRN Reason: Hypoglycemia Protocol Stop: 02/15/23 08:04 Glucose (Glucose 10 Tab/Tube) 4 - 8 tab PO UD PRN; Protocol PRN Reason: Hypoglycemia Treatment Stop: 02/15/23 08:04 Piperacillin Sod/Tazobactam (Sod 4.5 gm/ Dextrose) 120 mls @ 30 mls/hr IV Q8H [facility]; Protocol Stop: 02/05/23 08:14 Last Admin: 01/30/23 08:23 Dose: 30 mls/hr Albumin Human (Albumin 25% 100 Ml) 25 gm in 100 mls @ 50 mls/hr IV Q12H [facility] Stop: 01/31/23 15:29 Last Infusion: 01/30/23 05:21 Dose: Infused Amino Acids 1,801.16 ml/ (Nutrition (Parenteral)) 1,801.16 mls @ 75.048 mls/hr IV .Q24H [facility]; Protocol Stop: 01/30/23 15:59 Last Admin: 01/29/23 15:54 Dose: 75 mls/hr Daptomycin 700 mg/ Syringe 14 mls @ 4.25 mls/min IV Q48H [facility]; Protocol Stop: 02/04/23 08:59 Insulin Aspart (Insulin Aspart Per Unit Charge) 0 units SC Q6 [facility] Stop: 02/25/23 11:59 Last Admin: 01/30/23 06:24 Dose: Not Given Magnesium Oxide (Magnesium Oxide 400 Mg Tab) 400 mg PO QAM [facility] Stop: 02/15/23 08:59 Last Admin: 01/30/23 08:28 Dose: 400 mg Methimazole (Methimazole 5 Mg Tablet) 5 mg PO DAILY [facility] Stop: 02/15/23 08:59 Last Admin: 01/30/23 08:27 Dose: 5 mg Metoprolol Succinate (Metoprolol Succ 25mg Ext Rel Tab) 12.5 mg PO QAM [facility] Stop: 03/01/23 09:44 Last Admin: 01/30/23 10:22 Dose: 12.5 mg Miscellaneous (Carbohydrates For Hypoglycemia ) 15 - 30 gm PO UD PRN PRN Reason: Hypoglycemia Protocol Stop: 02/15/23 08:04 Miscellaneous (Stop Clinolipid) 1 each N/A DAILY@2200 [facility] Stop: 02/27/23 21:59 Last Admin: 01/29/23 20:48 Dose: 1 each Miscellaneous Information (Tpn/Ppn Consult Pharmacy) 1 each N/A UD PRN PRN Reason: Consult Stop: 02/25/23 08:39 Potassium Chloride (Potassium Chloride Crtab 20 Meq Tabcr) 20 meq PO BID [facility] Stop: 03/01/23 08:59 Last Admin: 01/30/23 08:28 Dose: 20 meq Sertraline HCl (Sertraline Hcl 50 Mg Tablet) 50 mg PO QAM [facility] Stop: 02/15/23 08:59 Last Admin: 01/30/23 08:27 Dose: 50 mg (3) Sepsis Sepsis acute organ dysfunction status: unspecified Sepsis type: sepsis due to unspecified organism Qualified Code(s): A41.9 - Sepsis, unspecified organism
[2023-01-30] MEDS: METOPROLOL SUCC 25MG EXT REL TAB PO SCH (10:22)
--- NOTE | 2023-01-30 10:33 | Infectious Disease Progress Nt ---
Date of Service January 30, 2023 Assessment & Plan (1) Pancreatitis: (2) Bile leak from gallbladder bed: Plan 72 yo F with history of obesity, HTN, anxiety, chronic neurogenic bladder, osteoporosis, MS, recent admission (12/09 - 01/12) for acute gallstone pancreatitis s/p ERCP with stent placement and subtotal laparoscopic cholecystectomy c/b bile leak with MIMI drain placement and Pseudomonas/Enterococcus UTI discharged on levofloxacin, who presented on 01/15 with back/abdominal pain, hypotension requiring pressors, leukocytosis to 34, found to have continued pancreatitis and peripancreatic fluid collections, bile leak. Pt was started on Zosyn. Hospital course has been complicated by continued bile leak s/p ERCP with stent on 01/19 and 01/24, continued intra- abdominal/peripancreatic collections s/p IR drain into RUQ on 01/26, persistent leukocytosis. 01/15: CT A/P (without contrast) showed severe acute pancreatitis, peripancreatic fluid collections, new 3.4 cm fluid attenuating structure within LUQ, possibly loculated ascites vs acute peripancreatic fluid collection, air and fluid-filled structure again noted in tima hepatis, possibly representing residual gallbladder vs postop fluid collection, unchanged positioning of R subhepatic percutaneous drainage catheter. Started on Zosyn. 01/16: surgery manipulated the RUQ MIMI drain, with improvement in drainage. 01/17: weaned off pressors. 01/18: HIDA scan showed bile leak and possible CBD obstruction. RUQ MIMI drainage sent for culture, growing probable Enterococcus. 01/19: ERCP showed bile leak, and biliary duct stent exchanged. 01/21: pt with increased abd pain. A repeat CT A/P without contrast showed similar severe acute pancreatitis, mildly increased ascites, increased fluid surrounding spleen with new splenic hemorrhage, increased size of peripancreatic fluid collections: adjacent to pancreatic head 2.5 cm --> 3.6 cm, and LUQ 3.5 cm --> 3.9 cm. 01/23: repeat CT A/P wo contrast showed severe pancreatitis with suspected underlying necrosis. Multiple pancreatic and peripancreatic fluid collections. Increased loculated fluid collection along lateral liver measuring 9.1 x 7.5 cm. Increased loculated fluid along stomach with mass effect. Increased perisplenic fluid collection/hemorrhage. 01/24: ERCP showed bile leak. Fibrin glue injected in cystic duct. Stent exchanged to longer covered metal stent, and two plastic biliary stents placed. 01/25: Hypotension in AM, but resolved within a couple hours. Empiric daptomycin added. 01/26: CT abd without contrast showed loculated fluid collection around liver increased in size (11 x 10.5 cm), perisplenic fluid collection decreased in size (14 x 6.5 cm), acute pancreatitis with modest improvement in inflammatory change, fluid collection in pancreatic neck could represent focal necrosis or developing pseudocyst. IR placed drain into perihepatic collection, removed ~200 cc brownish fluid, culture pending. Perisplenic collection was not aspirated due to concern for bleeding. Problems: #Peripancreatic fluid collections #Acute gallstone pancreatitis s/p ERCP with stent placement, subtotal lap adele c/b bile leak with MIMI drain placement (12/10/22) with persistent bile leak s/p ERCP and stent placement 01/19, 01/24 #Splenic hemorrhage #SAMMY: required temporary HD last admission #Decubitus ulcers #Atelectasis vs PNA Abx: Daptomycin 01/25 - Zosyn 01/15 - present Vanc 01/15 - 01/17 Recommendations: -Follow-up 01/26 IR drainage culture -Follow-up 01/18 MIMI drain Enterococcus species. Enterococcus is often found in polymicrobial intra-abdominal infections, with questionable pathogenicity vs colonization. Per [facility] results this is VRE, I have asked them to add daptomycin sensi will await call back. It is sensitive to Linezolid but there are drug interactions with linezolid and can be associated with hematologic abnormalitis, therefore will continue with daptomycin -Continue daptomycin, pip-tazo for now, Her Cr has improved if it continues to improve we change dosing on antibiotics -No change to antibiotics today ID will continue to follow Will discuss with Primary Karen Gannon MD Admission and Anticipated Discharge Date Admission Date: January 15, 2023 Subjective This patient recommendation is based on a telemedicine consult request which was completed asynchronously through chart review and information provided by the primary physician. The patient was not seen or examined today. The evaluation is consultative in nature and all patient care and treatment decisions can either be accepted or rejected by the patient's primary hospital-based treating physician using their own independent medical judgment for their patient. Time Spent Reviewing Chart: 21 - 30 minutes 24 hours: Purple code for bradycardia, Cardiology following Received pRBCS for low Hgb o/n 01/18 Biliary cultures are growing E. faecium (VRE) per [facility] report) Results & Data Vital Signs (Past 12 Hours) Vital Signs Temp Pulse Pulse Resp BP Pulse Ox O2 Del Method 01/30/23 07:07 36.7 C 72 22 174/80 H 94 Room Air 01/30/23 03:02 37 C 83 18 103/81 94 Room Air 01/29/23 23:35 91 H 01/29/23 23:04 36.8 C 93 H 18 145/82 H 93 Room Air 01/29/23 22:38 Room Air Laboratory Results Laboratory Results - last 48 hr 01/28/23 01/28/23 01/28/23 11:26 16:28 16:30 WBC RBC Hgb Hct MCV MCH MCHC RDW Std Deviation RDW Coeff of Mandy Plt Count MPV Immature Gran % (Auto) Neut % (Auto) Lymph % (Auto) [place] % (Auto) Eos % (Auto) Baso % (Auto) Neut # (Auto) Lymph # (Auto) [place] # (Auto) Eos # (Auto) Baso # (Auto) Immature Gran # (Auto) Absolute Nucleated RBC Nucleated RBC % (auto) Polychromasia ABG pH ABG pCO2 ABG pO2 ABG HCO3 ABG O2 Saturation ABG Base Excess Estevan Test Oxygen Given Sodium Potassium Chloride Carbon Dioxide Anion Gap BUN Creatinine Est Cr Clr Drug Dosing Est GFR ( Amer) Est GFR (Non-Af Amer) BUN/Creatinine Ratio Glucose POC Glucose 158 H 204 H 206 H Lactate Calcium Phosphorus Magnesium Total Creatine Kinase Troponin I High Sens TSH Blood Type Antibody Screen Crossmatch 01/28/23 01/28/23 01/29/23 20:01 23:57 04:45 WBC RBC Hgb Hct MCV MCH MCHC RDW Std Deviation RDW Coeff of Mandy Plt Count MPV Immature Gran % (Auto) Neut % (Auto) Lymph % (Auto) [place] % (Auto) Eos % (Auto) Baso % (Auto) Neut # (Auto) Lymph # (Auto) [place] # (Auto) Eos # (Auto) Baso # (Auto) Immature Gran # (Auto) Absolute Nucleated RBC Nucleated RBC % (auto) Polychromasia ABG pH ABG pCO2 ABG pO2 ABG HCO3 ABG O2 Saturation ABG Base Excess [place]an Test Oxygen Given Sodium Potassium Chloride Carbon Dioxide Anion Gap BUN Creatinine Est Cr Clr Drug Dosing Est GFR ( Amer) Est GFR (Non-Af Amer) BUN/Creatinine Ratio Glucose POC Glucose 161 H 152 H 132 H Lactate Calcium Phosphorus Magnesium Total Creatine Kinase Troponin I High Sens TSH Blood Type Antibody Screen Crossmatch 01/29/23 01/29/23 01/29/23 05:41 05:41 06:49 WBC 24.09 H RBC 2.46 L Hgb 6.9 L* 6.7 L* Hct 20.7 L* 20.6 L* MCV 84.1 MCH 28.0 MCHC 33.3 RDW Std Deviation 48.4 H RDW Coeff of Mandy 16.6 H Plt Count 353 MPV 9.3 L Immature Gran % (Auto) 1.1 Neut % (Auto) 81.8 Lymph % (Auto) 11.5 [place] % (Auto) 5.0 Eos % (Auto) 0.5 Baso % (Auto) 0.1 Neut # (Auto) 19.70 H Lymph # (Auto) 2.76 [place] # (Auto) 1.20 H Eos # (Auto) 0.13 Baso # (Auto) 0.03 Immature Gran # (Auto) 0.27 H Absolute Nucleated RBC 0.03 Nucleated RBC % (auto) 0.1 Polychromasia 1+ ABG pH ABG pCO2 ABG pO2 ABG HCO3 ABG O2 Saturation ABG Base Excess [place]evan Test Oxygen Given Sodium 139 Potassium 3.0 L Chloride 103 Carbon Dioxide 27 Anion Gap 9 BUN 65 H Creatinine 1.96 H D Est Cr Clr Drug Dosing 28.6 Est GFR ( Amer) 28.7 Est GFR (Non-Af Amer) 24.8 BUN/Creatinine Ratio 33.2 H Glucose 121 H POC Glucose Lactate Calcium 7.6 L Phosphorus 2.6 D Magnesium 1.5 L Total Creatine Kinase Troponin I High Sens TSH Blood Type Antibody Screen Crossmatch 01/29/23 01/29/23 01/29/23 07:42 08:51 11:41 WBC RBC Hgb Hct MCV MCH MCHC RDW Std Deviation RDW Coeff of Mandy Plt Count MPV Immature Gran % (Auto) Neut % (Auto) Lymph % (Auto) [place] % (Auto) Eos % (Auto) Baso % (Auto) Neut # (Auto) Lymph # (Auto) [place] # (Auto) Eos # (Auto) Baso # (Auto) Immature Gran # (Auto) Absolute Nucleated RBC Nucleated RBC % (auto) Polychromasia ABG pH ABG pCO2 ABG pO2 ABG HCO3 ABG O2 Saturation ABG Base Excess Estevan Test Oxygen Given Sodium Potassium Chloride Carbon Dioxide Anion Gap BUN Creatinine Est Cr Clr Drug Dosing Est GFR ( Amer) Est GFR (Non-Af Amer) BUN/Creatinine Ratio Glucose POC Glucose 123 H 133 H Lactate Calcium Phosphorus Magnesium Total Creatine Kinase Troponin I High Sens TSH Blood Type O Positive Antibody Screen NEGATIVE Crossmatch See Detail 01/29/23 01/29/23 01/30/23 16:59 18:03 00:00 WBC RBC Hgb Hct MCV MCH MCHC RDW Std Deviation RDW Coeff of Mandy Plt Count MPV Immature Gran % (Auto) Neut % (Auto) Lymph % (Auto) [place] % (Auto) Eos % (Auto) Baso % (Auto) Neut # (Auto) Lymph # (Auto) [place] # (Auto) Eos # (Auto) Baso # (Auto) Immature Gran # (Auto) Absolute Nucleated RBC Nucleated RBC % (auto) Polychromasia ABG pH ABG pCO2 ABG pO2 ABG HCO3 ABG O2 Saturation ABG Base Excess [place] Test Oxygen Given Sodium 142 Potassium 3.3 L Chloride 102 Carbon Dioxide 28 Anion Gap 12 H BUN 59 H Creatinine 1.85 H Est Cr Clr Drug Dosing 30.3 Est GFR ( Amer) 30.8 Est GFR (Non-Af Amer) 26.5 BUN/Creatinine Ratio 31.9 H Glucose 135 H POC Glucose 142 H 163 H Lactate Calcium 7.9 L Phosphorus Magnesium Total Creatine Kinase Troponin I High Sens TSH Blood Type Antibody Screen Crossmatch 01/30/23 01/30/23 01/30/23 03:44 04:19 04:20 WBC RBC Hgb Hct MCV MCH MCHC RDW Std Deviation RDW Coeff of Mandy Plt Count MPV Immature Gran % (Auto) Neut % (Auto) Lymph % (Auto) [place] % (Auto) Eos % (Auto) Baso % (Auto) Neut # (Auto) Lymph # (Auto) [place] # (Auto) Eos # (Auto) Baso # (Auto) Immature Gran # (Auto) Absolute Nucleated RBC Nucleated RBC % (auto) Polychromasia ABG pH ABG pCO2 ABG pO2 ABG HCO3 ABG O2 Saturation ABG Base Excess [place] Test Oxygen Given Sodium 142 Potassium 4.2 D Chloride 104 Carbon Dioxide 26 Anion Gap 12 H BUN 61 H Creatinine 1.79 H Est Cr Clr Drug Dosing 31.3 Est GFR ( Amer) 32.0 Est GFR (Non-Af Amer) 27.6 BUN/Creatinine Ratio 34.1 H Glucose 135 H POC Glucose 156 H Lactate 2.2 H* Calcium 8.1 L Phosphorus 2.2 L Magnesium 2.1 Total Creatine Kinase 12 L Troponin I High Sens 19.0 H TSH Blood Type Antibody Screen Crossmatch 01/30/23 01/30/23 01/30/23 04:20 04:20 05:57 WBC 25.95 H RBC 2.87 L Hgb 8.4 L Hct 25.0 L MCV 87.1 MCH 29.3 MCHC 33.6 RDW Std Deviation 49.5 H RDW Coeff of Mandy 16.9 H Plt Count 345 MPV 10.0 Immature Gran % (Auto) 1.0 Neut % (Auto) 81.6 Lymph % (Auto) 10.9 [place] % (Auto) 5.8 Eos % (Auto) 0.5 Baso % (Auto) 0.2 Neut # (Auto) 21.17 H Lymph # (Auto) 2.84 [place] # (Auto) 1.50 H Eos # (Auto) 0.13 Baso # (Auto) 0.04 Immature Gran # (Auto) 0.27 H Absolute Nucleated RBC 0.03 Nucleated RBC % (auto) 0.1 Polychromasia 1+ ABG pH ABG pCO2 ABG pO2 ABG HCO3 ABG O2 Saturation ABG Base Excess Estevan Test Oxygen Given Sodium Potassium Chloride Carbon Dioxide Anion Gap BUN Creatinine Est Cr Clr Drug Dosing Est GFR ( Amer) Est GFR (Non-Af Amer) BUN/Creatinine Ratio Glucose POC Glucose 154 H Lactate Calcium Phosphorus Magnesium Total Creatine Kinase Troponin I High Sens TSH 2.044 Blood Type Antibody Screen Crossmatch 01/30/23 01/30/23 06:08 06:36 WBC RBC Hgb Hct MCV MCH MCHC RDW Std Deviation RDW Coeff of Mandy Plt Count MPV Immature Gran % (Auto) Neut % (Auto) Lymph % (Auto) [place] % (Auto) Eos % (Auto) Baso % (Auto) Neut # (Auto) Lymph # (Auto) [place] # (Auto) Eos # (Auto) Baso # (Auto) Immature Gran # (Auto) Absolute Nucleated RBC Nucleated RBC % (auto) Polychromasia ABG pH 7.53 H* ABG pCO2 35 ABG pO2 77 L ABG HCO3 29 H ABG O2 Saturation 97.2 H ABG Base Excess 6.2 H [place] Test Pos Oxygen Given 2L Sodium Potassium Chloride Carbon Dioxide Anion Gap BUN Creatinine Est Cr Clr Drug Dosing Est GFR ( Amer) Est GFR (Non-Af Amer) BUN/Creatinine Ratio Glucose POC Glucose Lactate 1.7 Calcium Phosphorus Magnesium Total Creatine Kinase Troponin I High Sens TSH Blood Type Antibody Screen Crossmatch Microbiology 01/25/23 08:20 Blood Aerobic Blood Culture - Preliminary No growth in Aerobic bottle after 48 hours. 01/25/23 08:20 Blood Anaerobic Blood Culture - Final 01/25/23 08:22 Blood Aerobic Blood Culture - Preliminary No growth in Aerobic bottle after 48 hours. 01/25/23 08:22 Blood Anaerobic Blood Culture - Preliminary No growth in Anaerobic bottle after 48 hours. 01/18/23 Unknown Abdomen, Right Upper Quadrant Gram Stain - Final 01/18/23 Unknown Abdomen, Right Upper Quadrant Aerobic and Anaerobic Culture - Final Enterococcus faecium 01/26/23 11:34 Abdomen Gram Stain - Final 01/26/23 11:34 Abdomen Aerobic and Anaerobic Culture - Preliminary No growth to date. 01/16/23 10:28 Blood Fungal Smear - Final 01/16/23 10:28 Blood Fungal Culture - Preliminary No yeast or fungus isolated - Report 2, Additional report to follow. 01/15/23 16:49 Blood Aerobic Blood Culture - Final No growth in Aerobic bottle after 5 days. 01/15/23 16:49 Blood Anaerobic Blood Culture - Final No growth in Anaerobic bottle after 5 days. 01/15/23 16:58 Blood Aerobic Blood Culture - Final No growth in Aerobic bottle after 5 days. 01/15/23 16:58 Blood Anaerobic Blood Culture - Final 01/16/23 00:15 Urine,Clean Catch Urine Culture - Final No growth - less than 1,000 colonies/mL. Medications Administered Current Inpatient Medications Acetaminophen (Acetaminophen 325 Mg Tab) 650 mg PO Q6 PRN PRN Reason: Fever Or MILD Pain Stop: 02/14/23 23:34 Last Admin: 01/28/23 21:16 Dose: 650 mg Amiodarone HCl (Amiodarone 200 Mg Tab) 200 mg PO QAM [facility] Stop: 02/22/23 06:59 Last Admin: 01/29/23 09:51 Dose: 200 mg Apixaban (Apixaban 5 Mg Tablet) 5 mg PO BID VANDANA Stop: 02/15/23 08:59 Last Admin: 01/28/23 21:02 Dose: 5 mg Dextrose (Dextrose 50% 50 Ml Syringe) 25 - 50 ml IV UD PRN; Protocol PRN Reason: Hypoglycemia Protocol Stop: 02/15/23 08:04 Furosemide (Furosemide 40 Mg/4 Ml Vial) 40 mg IV Q12H VANDANA Stop: 02/27/23 15:29 Last Admin: 01/30/23 03:21 Dose: 40 mg Glucagon (Glucagon For Inj 1 Mg Vial) 1 mg SQ UD PRN; Protocol PRN Reason: Hypoglycemia Protocol Stop: 02/15/23 08:04 Glucose (Glucose 40% Gel 15 Gm Tube) 15 - 30 gm PO UD PRN; Protocol PRN Reason: Hypoglycemia Protocol Stop: 02/15/23 08:04 Glucose (Glucose 10 Tab/Tube) 4 - 8 tab PO UD PRN; Protocol PRN Reason: Hypoglycemia Treatment Stop: 02/15/23 08:04 Piperacillin Sod/Tazobactam (Sod 4.5 gm/ Dextrose) 120 mls @ 30 mls/hr IV Q8H VANDANA; Protocol Stop: 02/05/23 08:14 Last Admin: 01/30/23 08:23 Dose: 30 mls/hr Albumin Human (Albumin 25% 100 Ml) 25 gm in 100 mls @ 50 mls/hr IV Q12H VANDANA Stop: 01/31/23 15:29 Last Infusion: 01/30/23 05:21 Dose: Infused Amino Acids 1,801.16 ml/ (Nutrition (Parenteral)) 1,801.16 mls @ 75.048 mls/hr IV .Q24H VANDANA; Protocol Stop: 01/30/23 15:59 Last Admin: 01/29/23 15:54 Dose: 75 mls/hr Daptomycin 700 mg/ Syringe 14 mls @ 4.25 mls/min IV Q48H VANDANA; Protocol Stop: 02/04/23 08:59 Insulin Aspart (Insulin Aspart Per Unit Charge) 0 units SC Q6 VANDANA Stop: 02/25/23 11:59 Last Admin: 01/30/23 06:24 Dose: Not Given Magnesium Oxide (Magnesium Oxide 400 Mg Tab) 400 mg PO QAM [facility] Stop: 02/15/23 08:59 Last Admin: 01/30/23 08:28 Dose: 400 mg Methimazole (Methimazole 5 Mg Tablet) 5 mg PO DAILY [facility] Stop: 02/15/23 08:59 Last Admin: 01/30/23 08:27 Dose: 5 mg Metoprolol Succinate (Metoprolol Succ 25mg Ext Rel Tab) 12.5 mg PO QAM [facility] Stop: 03/01/23 09:44 Last Admin: 01/30/23 10:22 Dose: 12.5 mg Miscellaneous (Carbohydrates For Hypoglycemia ) 15 - 30 gm PO UD PRN PRN Reason: Hypoglycemia Protocol Stop: 02/15/23 08:04 Miscellaneous (Stop Clinolipid) 1 each N/A DAILY@2200 [facility] Stop: 02/27/23 21:59 Last Admin: 01/29/23 20:48 Dose: 1 each Miscellaneous Information (Tpn/Ppn Consult Pharmacy) 1 each N/A UD PRN PRN Reason: Consult Stop: 02/25/23 08:39 Potassium Chloride (Potassium Chloride Crtab 20 Meq Tabcr) 20 meq PO BID [facility] Stop: 03/01/23 08:59 Last Admin: 01/30/23 08:28 Dose: 20 meq Sertraline HCl (S[facility]ine Hcl 50 Mg Tablet) [facility] [place]: 02/15/23 08:59 Last Admin: 01/30/23 08:27 Dose: 50 mg
--- NOTE | 2023-01-30 13:01 | Hospitalist Progress Note ---
Date of Service January 30, 2023 Assessment & Plan (1) Septic shock: Plan: Patient was recently hospitalized for about a month during which she was managed for acute pancreatitis, acute cholangitis, septic shock, acute renal failure requiring dialysis briefly, paroxysmal A-fib. Underwent ERCP on 12/10 with removal of stones from the bile duct. Underwent lap adele with extensive lysis of adhesions on 12/10 by general surgery. Was discharged to senior living facility and represented with abdominal and back pain. Labs on presentation showed worsening leukocytosis, worsening renal function and has been hypotensive. Being managed for septic shock.Was on Levophed which was weaned off around 5pm today (01/17). Sources of sepsis include possible intra-abdominal infection considering recent severe pancreatitis, surgical subhepatic drain in situ, recent UTI. Acute on chronic pancreatitis Intra-abdominal fluid collection-biliary leak, necrotic pancreatitis Continue on Zosyn for now after stent exchange performed by GI Initial ID consultation was done on 01/18/2023 and repeat follow-up will be done on 01/22/2023 Has pleural effusion (left) on CT abd/pelvis. Not in resp distress but she does have a slight cough. Appreciate ID input and recommendation to continue intravenous Zosyn for now New intra-abdominal collection is growing Enterococcus and daptomycin was added to cover possible VRE Continue Zosyn and daptomycin as per instruction from the ID Acute bradycardia Noted to have bradycardia last evening and the code purple was called Heart rate remains around lower 40s Amiodarone and beta-jorge luis were on hold Should cardiology input and recommendation Lower dose of beta-jorge luis has been restarted including amiodarone Will monitor 01/21/2023 and onwards Complaining of more abdominal pain though the white count has been improving CT of the abdomen and pelvis showed severe acute pancreatitis as on 01/15/2023 and a new perisplenic hemorrhage We will continue with current pain medications and hold Eliquis Hemoglobin did not drop and the pain is controlled Discussed with the surgeon, GI and IR facility over [facility] and plan is to repeat the scan tomorrow any hospital for special surgery clinic fluid collection/hemorrhage is increasing the patient will be transferred to tertiary care center for definitive drainage Discussed with the family members about this measure Repeat scan today showed: Increasing fluid collection as below 1. Findings consistent with severe acute pancreatitis. 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 2. Perisplenic hemorrhage, stable to slightly increased since prior CT. The perisplenic fluid collection has increased in size since prior CT. Irregularity of the spleen consistent with splenic injury. 3. Increase in size of perihepatic and perigastric fluid collections with mass effect upon the stomach. The perihepatic fluid collection could be related to a bile leak or acute pancreatitis. 4. Increase in gas within the cholecystectomy bed. This is nonspecific given indwelling surgical drain and common bile duct stent however a persistent biliary leak cannot be excluded. 5. No significant change in a moderate left pleural effusion with left lower lobe atelectasis. 6. Slight increase in small to moderate pelvic ascites. Discussed with the general surgery, ID specialist and informed her about ERCP/EUS tomorrow IV fluid was discontinued after EUS Condition remains stable Intra-abdominal fluid collections; as below Perisplenic fluid collection with possible bleeding from the spleen We will monitor-most recent CT of the abdomen and pelvis did show a decrease in perisplenic fluid/hemorrhage Discussed with the GI-epigastric and peripancreatic fluid collections will be drained with a larger drainage tube today that is for 01/26/2023 Patient remains critically stable Status post ultrasound guided perihepatic fluid aspiration and placement of drain Fluid study shows amylase of 3724 and lipase of 20,040-likely secondary to chronic pancreatitis Still draining and this morning I checked the collection he does more than 300 mL-microbiology has been negative so far. Prior fluid studies showed probable Enterococcus and further identification pending Has been on TPN and oral sepsis on top of that Getting intravenous Zosyn and daptomycin was added on The right-sided MIMI drain has been [id number] intra-abdominal drain is draining about 200 mL of fluid since this morning White count remains elevated likely secondary to chronic infection/inflammationno evidence of intra-abdominal abscess Left intra-abdominal drain is still draining serosanguineous fluid Rash on top of nose and adjoining area Likely due to rosacea doubt any allergic reaction from Zosyn Will restart Zosyn and continue for now Rosacea improved Hypertension Will start metoprolol succinate 50 mg twice daily from today Blood pressure seems to be reasonably controlled Acute blood loss anemia-Vaginal Bleeding Chronic anemia complicated by bleeding from the vagina Hemoglobin went down to 6.7 in part due to dilution, renal failure and is complicated by vaginal bleeding [employer] consultation has been requested Ultrasound of the pelvis did show abnormal thickening of the endometrium Appreciate [employer] input and recommendation-bleeding is from the thickened endometrium for further investigation as an outpatient with D&C The bleeding is not enough to cause significant blood loss Globin went up to 8.4 after 1 unit of blood transfusion Anticoagulation can be restarted (2) Hyperthyroidism: Plan: Patient on methimazole which is known to have a side effect of pancreatitis. However, will cont for now as this pancreatitis is improved clinically and there are more likely causes/contributing factors. (3) Pleural effusion, left: Plan: hopeful this will improve after stent exchange and with time and movement. If no improvement, may need to consider thoracentesis. Repeat CT showed moderate left pleural effusion as before (4) Acute renal failure: Plan: Worsening renal function in setting of septic shock, around 2.6. Recent temporary dialysis last month which she is off of now. Nephro following. Creat appears stable although still worse than her baseline. Creatinine is little bit better today at 2.50 and potassium was 3.1 which was replaced Renal failure has been getting better with IV fluid at the same time getting milo ma IV fluid will be stopped following ERCP today Kidney function has been stable with slightly worsening creatinine today Kidney function remains stable but a little worse compared with yesterday The kidneys are improving and Lasix have been started Kidney function has been improving (5) Acute pancreatitis: Plan: Intra-abdominal fluid collection as below: CT abdomen and pelvis without contrast on admission noted redemonstration of severe acute pancreatitis similar to 12/31/2022, CBD stent in satisfactory position, unchanged position of right subhepatic percutaneous drainage, bilateral nephrolithiasis without ureteral calculi or hydronephrosis, moderate left pleural effusion increased in size with left basilar consolidation s uggestive of atelectasis, increased amount of abdominal left upper quadrant ascites Repeat CT of the abdomen pelvis showed: 01/21/2023 1. Severe acute pancreatitis is similar appearance to the 01/15/2023 exam with persistent acute peripancreatic fluid collections. 2. Prior cholecystectomy with decreased size of the air and fluid-filled structure within the tima hepatis. 3. Common bile duct stent in place with persistent pneumobilia. 4. Unchanged positioning of the right subhepatic percutaneous drainage catheter. 5. Increased amount of abdominopelvic ascites, notably surrounding the spleen with new perisplenic hemorrhage. 6. Bilateral nephrolithiasis. 7. Moderate left pleural effusion with left basilar consolidation. 8. Additional findings as above. We will continue with current antibiotic and pain medications Repeat CT scan of the abdomen pelvis showed increasing fluid collection around pancreas and also perisplenic area Discussed with the daughter and the for possible transfer to tertiary care center to perform IR procedures down the line Has acute necrotic pancreatitis with peripancreatic fluid collections-not amenable to drainage as per IR Status post ERCP/EUS and placement of new drainage on 01/24/2023 has been draining normally as per GI Repeat CT abdomen pelvis showed: IMPRESSION: 1. The spleen is irregular and diminutive suggesting splenic injury. A irais splenic fluid collection/hematoma has decreased in size from 01/23/2023. 2. An air/contrast level in the gallbladder fossa is likely related to cystic duct leak when compared to the recent ERCP images. 3. A loculated fluid collection around the lateral segment of the left lobe of the liver has increased in size from 01/23/2023. 4. Abdominal ascites has modestly increased from 01/23/2023. 5. Again seen is evidence of acute pancreatitis. Inflammatory change has modestly improved from previous. 6. A fluid collection in the pancreatic neck could represent focal necrosis or developing pseudocyst. 7. Common bile duct stents are in place. Pneumobilia suggests patency. 8. Moderate left and trace right pleural effusions with dependent consolidation. 9. Bilateral nephrolithiasis. 10. Additional findings as above. Will have ultrasound-guided tube placement to drain more fluid from the above areas-discussed with the furniture repair technician As above-likely going to be chronic pancreatitis Intra-abdominal drainage is still draining serosanguineous fluid Bedsores Has bilateral stasis to sacral decubiti as in the picture Appreciate wound care management Plan s/p ERCP with bile duct stent exchange. Bile leak was noted intraoperatively. New transcutaneous drain in place draining into colostomy bag. She is recovering well, slightly lethargic. Continues with therapy with plans for rehab. As above Nutritional status She has not been eating or drinking enough Discussed with the GI and plan to put coresafe and start tube feeding PPN has been started and also will encourage oral intake Continued PPN and oral sips as tolerated-has been taking very minimal orally Other significant medical condition as below Paroxysmal atrial fibrillation-rate is controlled and has been on Eliquis Depression-seems to be stable and Multiple sclerosis-she has been moving all of her extremities though has weakness in the legs. Has been bedbound for the last 1 month Since they splenic hemorrhage has improved a lot and the hemoglobin remains stable will restart Eliquis DVT ppx- apixaban -on hold due to splenic hemorrhage as above Will restart Eliquis from 02-20 Full code Dispo-awaiting Detailed discussion with the daughter Explained current situation beginning from first admission to the hospital Answered all of their questions Discussed about partial cholecystectomy and the drainage in the gallbladder area with biliary leakage Discussed about ERCP/EUS that was done on of this month Discussed about peripancreatic fluid collection and also splenic area fluid collection/hemorrhage And also discussed about possible transfer to tertiary care center if needed and is accepted by an accepting physician Discussed with the -discussed with the daughter today for 01/28/2023 Discussed with the daughters in detail on 01/29/2023 and another detailed discussion was done on 02-20 Admission and Anticipated Discharge Date Admission Date: January 15, 2023 Subjective 01/21/2023 The patient was seen and examined in telemetry unit in presence of the She has been complaining of more abdominal pain today without any nausea and or vomiting Denies any fever and or chills Denies any shortness of breath 01/22/2023 The patient was seen and examined in telemetry unit in presence of the She remains weak and lethargic but does not have any more abdominal pain at rest Her vitals remained stable and her hemoglobin has not changed 01/23/2023 The patient was seen and examined in telemetry unit in presence of the She remains stable and does not complain of any increasing pain She could not tolerate coresef tube yesterday Minimal intake orally 01/24/2023 Patient was seen and examined in telemetry unit in presence of the She will be going for ERCP/EUS this afternoon Remains stable and denies any significant pain 01/25/2023 The patient was seen and examined in telemetry unit in presence of the daughter She has been weak and lethargic and has not been showing any progress Has had ERCP/EUS and placement of biliary stent and external drainage 01/26/2023 The patient was seen and examined in telemetry unit She has been stable and the blood pressure has been running on the lower side Denies any fever and or chills Abdominal pain is decreased 01/27/2023 The patient was seen and examined in telemetry unit She has been stable but remains very sick Denies any abdominal pain and has not been able to take anything orally yet No fever and or chills, no abdominal pain, nausea and or vomiting 01/28/2023 The patient was seen and examined in telemetry unit in presence of the daughter She has been feeling a little better today and denies any symptoms at rest Her blood pressure was noted to be high and he still has tachycardia No fever and or chills and no nausea and or vomiting 01/29/2023 The patient was seen and examined in telemetry unit in presence of the daughter's She has been stable but with ongoing vaginal bleeding Her abdominal pain is a stable She was noted to have a few beats of A-fib this morning Denies any fever and or chills 01/30/2023 The patient was seen and examined in telemetry unit in presence of the sisters She has had an episode of bradycardia last evening" poor p.o. called Her amiodarone and beta-jorge luis was on hold since this morning She has been feeling the same with weakness and tiredness and some abdominal pain but no other acute symptoms Review of Systems Review of Systems: All systems reviewed and are unremarkable except as noted below Musculoskeletal: No acute arthritis involving any joint Neurologic: Alert and awake. Generally very weak and lethargic Physical Exam Physical Exam: Lying in bed without any acute distress but remains very weak and lethargic Constitutional: well developed, well nourished, + ill appearing and + obese Eyes: PERRL, conjunctivae normal, anicteric sclerae ENMT: external ear and nose normal, oropharynx normal Neck: trachea midline, no thyromegaly Respiratory: no respiratory distress Auscultation: + diminished lung sounds and + crackles (Bibasilar crackles) Cardiovascular: Rate/Rhythm: regular rate and regular rhythm; not tachycardic Heart Sounds: normal S1 and normal S2; no murmur Extremities: + edema (1+ edema bilaterally) Gastrointestinal (Abdomen): Inspection/Auscultation: + abdomen distended (Mildly distended abdomen) and normal bowel sounds Percussion/Palpation: + abdomen tender (Epigastrium and all over to some extent) and abdomen soft Musculoskeletal: No acute arthritis involving any of the joint Neurologic: normal touch/pain/proprioception and moves all extremities; no focal motor deficits Psychiatric: A+Ox3, euthymic affect Lymphatic: no cervical or axillary lymphadenopathy Results & Data Results & Data Vital Signs (Past 12 Hours) Vital Signs Temp Pulse Resp BP Pulse Ox O2 Del Method 01/30/23 08:00 Room Air 01/30/23 11:06 36.8 C 77 22 157/89 H 95 Room Air 01/30/23 07:07 36.7 C 72 22 174/80 H 94 Room Air 01/30/23 03:02 37 C 83 18 103/81 94 Room Air Laboratory Results Short CBC 01/30/23 Range/Units 04:20 WBC 25.95 H (4.8-10.8) K/ul Hgb 8.4 L (12.0-16.0) g/dl Hct 25.0 L (37.0-47.0) % Plt Count 345 (130-400) K/uL BMP 01/29/23 01/30/23 16:59 04:19 Sodium 142 142 Potassium 3.3 L 4.2 D Chloride 102 104 Carbon Dioxide 28 26 BUN 59 H 61 H Creatinine 1.85 H 1.79 H Glucose 135 H 135 H Calcium 7.9 L 8.1 L Cardiac Enzymes 01/30/23 Range/Units 04:19 Total Creatine Kinase 12 L (26-192) U/L Medications Administered Current Inpatient Medications Acetaminophen (Acetaminophen 325 Mg Tab) 650 mg PO Q6 PRN PRN Reason: Fever Or MILD Pain Stop: 02/14/23 23:34 Last Admin: 01/28/23 21:16 Dose: 650 mg Amiodarone HCl (Amiodarone 200 Mg Tab) 200 mg PO QAM VANDANA Stop: 02/22/23 06:59 Last Admin: 01/29/23 09:51 Dose: 200 mg Apixaban (Apixaban 5 Mg Tablet) 5 mg PO BID VANDANA Stop: 02/15/23 08:59 Last Admin: 01/28/23 21:02 Dose: 5 mg Dextrose (Dextrose 50% 50 Ml Syringe) 25 - 50 ml IV UD PRN; Protocol PRN Reason: Hypoglycemia Protocol Stop: 02/15/23 08:04 Furosemide (Furosemide 40 Mg/4 Ml Vial) 40 mg IV Q12H VANDANA Stop: 02/27/23 15:29 Last Admin: 01/30/23 03:21 Dose: 40 mg Glucagon (Glucagon For Inj 1 Mg Vial) 1 mg SQ UD PRN; Protocol PRN Reason: Hypoglycemia Protocol Stop: 02/15/23 08:04 Glucose (Glucose 40% Gel 15 Gm Tube) 15 - 30 gm PO UD PRN; Protocol PRN Reason: Hypoglycemia Protocol Stop: 02/15/23 08:04 Glucose (Glucose 10 Tab/Tube) 4 - 8 tab PO UD PRN; Protocol PRN Reason: Hypoglycemia Treatment Stop: 02/15/23 08:04 Piperacillin Sod/Tazobactam (Sod 4.5 gm/ Dextrose) 120 mls @ 30 mls/hr IV Q8H VANDANA; Protocol Stop: 02/05/23 08:14 Last Infusion: 01/30/23 12:17 Dose: Infused Albumin Human (Albumin 25% 100 Ml) 25 gm in 100 mls @ 50 mls/hr IV Q12H VANDANA Stop: 01/31/23 15:29 Last Infusion: 01/30/23 05:21 Dose: Infused Amino Acids 1,801.16 ml/ (Nutrition (Parenteral)) 1,801.16 mls @ 75.048 mls/hr IV .Q24H VANDANA; Protocol Stop: 01/30/23 15:59 Last Admin: 01/29/23 15:54 Dose: 75 mls/hr Amino Acids 1,795.16 ml/ (Nutrition (Parenteral)) 1,795.16 mls @ 74.798 mls/hr IV .Q24H VANDANA; Protocol Stop: 01/31/23 15:59 Fat Emulsion-[place] Oil/Soybean Oil (Clinolipid 20% Iv Fat Emulsion) 250 mls @ 41.667 mls/hr IV .Q6H VANDANA Stop: 01/30/23 21:59 Daptomycin 700 mg/ Syringe 14 mls @ 4.25 mls/min IV Q24H VANDANA; Protocol Stop: 02/04/23 15:59 Insulin Aspart (Insulin Aspart Per Unit Charge) 0 units SC Q6 VANDANA Stop: 02/25/23 11:59 Last Admin: 01/30/23 12:17 Dose: 1 units Magnesium Oxide (Magnesium Oxide 400 Mg Tab) 400 mg PO QAM VANDANA Stop: 02/15/23 08:59 Last Admin: 01/30/23 08:28 Dose: 400 mg Methimazole (Methimazole 5 Mg Tablet) 5 mg PO DAILY VANDANA Stop: 02/15/23 08:59 Last Admin: 01/30/23 08:27 Dose: 5 mg Metoprolol Succinate (Metoprolol Succ 25mg Ext Rel Tab) [facility] [place] Stop: 03/01/23 09:44 Last Admin: 01/30/23 10:22 Dose: 12.5 mg Miscellaneous (Carbohydrates For Hypoglycemia ) 15 - 30 gm PO UD PRN PRN Reason: Hypoglycemia Protocol Stop: 02/15/23 08:04 Miscellaneous (Stop Clinolipid) 1 each N/A DAILY@2200 [facility] Stop: 02/27/23 21:59 Last Admin: 01/29/23 20:48 Dose: 1 each Miscellaneous Information (Tpn/Ppn Consult Pharmacy) 1 each N/A UD PRN PRN Reason: Consult Stop: 02/25/23 08:39 Potassium Chloride (Potassium Chloride Crtab 20 Meq Tabcr) 20 meq PO BID [facility] Stop: 03/01/23 08:59 Last Admin: 01/30/23 08:28 Dose: 20 meq Sertraline HCl (Sertraline Hcl 50 Mg Tablet) 50 mg PO [facility] Stop: 02/15/23 08:59 Last Admin: 01/30/23 08:27 Dose: 50 mg (5) Acute pancreatitis Acute pancreatitis complication: unspecified Pancreatitis type: unspecified pancreatitis type Qualified Code(s): K85.90 - Acute pancreatitis without necrosis or infection, unspecified
[2023-01-30] MEDS ORDERED: Nursing to Pharmacy Communication SCH (15:15)
[2023-01-30] MEDS: DAPTOmycin 700 MG in SYRINGE 0 ML IV SCH (15:25)
[2023-01-30] MEDS ORDERED: PERIPHERAL TPN IV SCH (16:00)
[2023-01-30] MEDS ORDERED: CLINOLIPID 20% IV FAT EMULSION 250 ML IV SCH (16:00)
[2023-01-30] MEDS ORDERED: [UNRECOGNIZED DRUG - OTHER] IV SCH (16:00)
--- NOTE | 2023-01-30 16:59 | Electrocardiogram Report ---
Test Reason : Blood Pressure : / mmHG Vent. Rate : 095 BPM Atrial Rate : 095 BPM P-R Int : 142 ms QRS Dur : 072 ms QT Int : 402 ms P-R-T Axes : 057 013 010 degrees QTc Int : 505 ms Poor data quality, interpretation may be adversely affected Sinus rhythm with Premature ventricular complexes Premature atrial complexes Nonspecific ST and T wave abnormality Abnormal ECG When compared with ECG of 22-JAN-2023 14:06, Premature atrial complexes and Premature ventricular complexes are now Present Confirmed by Dakota Hyde ([id number]) on 01/30/2023 4:58:44 PM Referred By: REFERRED SELF Confirmed By:Dakota Hyde
--- NOTE | 2023-01-30 17:05 | Cardiology Consultation ---
Date of Consultation January 30, 2023 Assessment & Plan (1) Sinus bradycardia: (2) Paroxysmal atrial fibrillation: (3) Post-menopausal bleeding: - Patient with anemia, hemoglobin down to 6.7 on 01/29/2023, felt to be due to postmenopausal uterine bleeding. She received a unit of packed red blood cells, repeat hemoglobin this morning 8.4. -Multiple comorbidities noted. Metoprolol succinate has been reduced down to 12.5 mg daily. Recommend reinitiating amiodarone 200 mg daily. -Eliquis has been discontinued. At present prophylactic benefits of anticoagulation are outweighed by the prohibitive bleeding risk. -Looking ahead, anticipate avoiding systemic anticoagulation, but will likely require DVT prophylaxis given her bedbound state. History of Present Illness Attending Physician: Gerardo Angulo MD History of Present Illness Patient seen in cardiology consultation per the request of Dr Gordillo for the evaluation of bradycardia. Patient unable to provide history therefore does obtain per review of records and discussion with her family at the bedside. Patient with recent prolonged hospital stay from 12/09/2022 until 01/12/2023. Per review of the discharge summary she was treated for acute gallstone pancreatitis, acute cholangitis and a pancreatic pseudocyst. She had undergone ERCP and laparoscopic cholecystectomy. Patient had been followed by cardiology during that stay for episodes of paroxysmal atrial fibrillation in the setting of sepsis. Discharge medications included metoprolol succinate 50 mg twice daily, amiodarone 200 mg by mouth daily, and Eliquis 5 mg twice daily. Shortly after discharge the patient was readmitted having presented to the emergency department on 01/15/2023. Issues include ongoing sepsis and pancreatitis. Patient has been noted to have a transient sinus bradycardia at just after 4 AM that resolved on its own. In the meantime, telemetry has revealed sinus rhythm in the 80s, with brief episodes of recurrent atrial fibrillation. Allergies Allergy/AdvReac Type Severity Reaction Status Date / Time No Known Allergies Allergy Unverified 01/15/23 17:50 Home Medications Medication Instructions Recorded Confirmed Type apixaban 5 mg tablet (Eliquis) 5 mg PO BID #60 tabs 01/12/23 01/15/23 Rx levofloxacin 750 mg tablet 750 mg PO Q48H #3 tabs 01/12/23 01/15/23 Rx methimazole 5 mg tablet 5 mg PO DAILY #30 tabs 01/12/23 01/15/23 Rx acetaminophen 325 mg tablet 650 mg PO Q6 PRN Fever Or Pain 01/15/23 01/15/23 History amiodarone 200 mg tablet 200 mg PO QAM 01/15/23 01/15/23 History diclofenac sodium 1 % topical gel 2 g topical QID 01/15/23 01/15/23 History magnesium oxide 400 mg (241.3 mg 400 mg PO QAM 01/15/23 01/15/23 History magnesium) tablet menthol 0.44 %-zinc oxide 20.6 % 1 applic topical TID 01/15/23 01/15/23 History topical ointment (Calmoseptine) metoprolol succinate 50 mg 50 mg PO AMHS 01/15/23 01/15/23 History tablet,extended release 24 hr oxycodone 5 mg tablet 5 mg PO Q6 PRN pain,moderate 01/15/23 01/15/23 History oxycodone 5 mg tablet 10 mg PO Q6 PRN pain,severe 01/15/23 01/15/23 History sennosides 8.6 mg-docusate sodium 1 tab PO AMHS 01/15/23 01/15/23 History 50 mg tablet (Senokot-S) sertraline 50 mg tablet 50 mg PO QAM 01/15/23 01/15/23 History Patient History Medical History Acute renal failure Required several dialysis treatments during mid November to mid December 2022 admission Ambulatory dysfunction d/t MS Bile leak from gallbladder bed Cholangitis Depression History of claustrophobia Hypertension Hyperthyroidism Multiple sclerosis Pancreatitis Surgical History Hx laparoscopic cholecystectomy (12/10/22) Laparoscopic cholecystectomy with extensive lysis of adhesions, please add modifier for extensive difficulty and increased length of the procedure. Social History Smoking Status: Former smoker Smoking End Date: 1989; Second Hand Exposure: No; Do You Dip or Chew Tobacco: No; Tobacco Cessation Education Requested by Patient: No Hx Alcohol Use: No Hx Substance Use: No Preferred Language: Fijian Communication Ability: Effective Visual Impairment: No Limitations Ribber Required: No Beliefs That Will Affect Care: None marital status: Single Current Living Situation: Longterm current occupational status: retired Other Information That Helps Us Care for You: No Feels Safe at Home: Yes Safety Concerns: Feels Safe At This Time Assistive Devices: Walker Review of Systems Review of Systems: Unobtainable due to cognitive status Physical Exam Constitutional: + ill appearing Respiratory: no respiratory distress and no labored breathing Auscultation: + diminished lung sounds (Mildly decreased breath sounds at the bases) Cardiovascular: Rate/Rhythm: regular rate and regular rhythm Heart Sounds: no murmur Extremities: no edema Gastrointestinal (Abdomen): Nontender Neurologic: Answers to simple questions Results & Data Vital Signs (Past 12 Hours) Vital Signs Temp Pulse Pulse Resp BP Pulse Ox O2 Del Method 01/30/23 15:50 36.8 C 83 19 161/86 H 93 Room Air 01/30/23 08:00 92 H 01/30/23 08:00 Room Air 01/30/23 11:06 36.8 C 77 22 157/89 H 95 Room Air 01/30/23 07:07 36.7 C 72 22 174/80 H 94 Room Air Laboratory Results Cardiac Enzymes 01/30/23 01/30/23 Range/Units 04:19 10:38 Troponin I High Sens 19.0 H 18.1 H (0-14) pg/ml CBC 01/30/23 Range/Units 04:20 WBC 25.95 H (4.8-10.8) K/ul RBC 2.87 L (4.20-5.40) M/uL Hgb 8.4 L (12.0-16.0) g/dl Hct 25.0 L (37.0-47.0) % Plt Count 345 (130-400) K/uL Neut # (Auto) 21.17 H (1.40-6.50) K/uL Lymph # (Auto) 2.84 (1.2-3.4) K/uL [place] # (Auto) 1.50 H (0.11-0.59) K/uL Eos # (Auto) 0.13 (0-0.50) K/uL Baso # (Auto) 0.04 (0-0.2) K/uL Comprehensive Metabolic Panel 01/29/23 01/30/23 Range/Units 16:59 04:19 Sodium 142 142 (136-145) mmol/L Potassium 3.3 L 4.2 D (3.5-5.1) mmol/L Chloride 102 104 (98-107) mmol/L Carbon Dioxide 28 26 (21-32) mmol/L BUN 59 H 61 H (6-23) mg/dl Creatinine 1.85 H 1.79 H (0.6-1.2) mg/dl Glucose 135 H 135 H (70-99(Fasting)) mg/dl Calcium 7.9 L 8.1 L (8.6-10.3) mg/dl Diagnostic Findings EKG performed 01/30/2023 at 4 AM revealed sinus bradycardia 45 bpm. Troponin I obtained x2 on 02/17/2023 at 4:19 AM and again at 10:38 AM with measurements of 19 and 18.1 PG per mL
--- NOTE | 2023-01-30 19:57 | Electrocardiogram Report ---
Test Reason : Blood Pressure : / mmHG Vent. Rate : 087 BPM Atrial Rate : 072 BPM P-R Int : 000 ms QRS Dur : 064 ms QT Int : 438 ms P-R-T Axes : 000 013 021 degrees QTc Int : 527 ms Poor data quality, interpretation may be adversely affected Sinus rhythm with frequent Premature atrial complexes and aberrancy Nonspecific ST and T wave abnormality Abnormal ECG When compared with ECG of 29-JAN-2023 11:08, (unconfirmed) No significant change Confirmed by Dakota Hyde ([id number]) on 01/30/2023 7:57:07 PM Referred By: REFERRED SELF Confirmed By:Dakota Hyde
--- NOTE | 2023-01-30 19:59 | Electrocardiogram Report ---
Test Reason : Blood Pressure : / mmHG Vent. Rate : 045 BPM Atrial Rate : 045 BPM P-R Int : 158 ms QRS Dur : 050 ms QT Int : 450 ms P-R-T Axes : 037 006 004 degrees QTc Int : 389 ms Poor data quality, interpretation may be adversely affected Sinus bradycardia Possible Left atrial enlargement Abnormal ECG When compared with ECG of 30-JAN-2023 03:47, (unconfirmed) HR has decreased Confirmed by Dakota Hyde ([id number]) on 01/30/2023 7:58:37 PM Referred By: REFERRED SELF Confirmed By:Dakota Hyde
--- NOTE | 2023-01-30 19:59 | Electrocardiogram Report ---
Test Reason : Blood Pressure : / mmHG Vent. Rate : 045 BPM Atrial Rate : 045 BPM P-R Int : 136 ms QRS Dur : 062 ms QT Int : 538 ms P-R-T Axes : 019 012 010 degrees QTc Int : 465 ms Poor data quality, interpretation may be adversely affected Sinus bradycardia Abnormal ECG When compared with ECG of 30-JAN-2023 03:51, (unconfirmed) No significant change Confirmed by Dakota Hyde ([id number]) on 01/30/2023 7:59:17 PM Referred By: REFERRED SELF Confirmed By:Dakota Hyde
--- NOTE | 2023-01-30 20:00 | Electrocardiogram Report ---
Test Reason : Blood Pressure : / mmHG Vent. Rate : 045 BPM Atrial Rate : 045 BPM P-R Int : 136 ms QRS Dur : 068 ms QT Int : 492 ms P-R-T Axes : 026 014 012 degrees QTc Int : 425 ms Sinus bradycardia Nonspecific ST abnormality Abnormal ECG When compared with ECG of 30-JAN-2023 03:58, (unconfirmed) No significant change Confirmed by Dakota Hyde ([id number]) on 01/30/2023 7:59:42 PM Referred By: REFERRED SELF Confirmed By:Dakota Hyde
[2023-01-30] MEDS ORDERED: dilTIAZem HCl 5 MG/ML 5 ML VIAL IV STA (21:14)
[2023-01-30] MEDS: APIXABAN 5 MG TABLET PO SCH (21:32)
[2023-01-30] MEDS ORDERED: hydrOXYzine HCl 10 MG TAB PO STA (21:42)
[2023-01-30] MEDS ORDERED: hydrALAZINE HCL 20 MG/ML VIAL IV ONE (21:42)
[2023-01-30] MEDS: STOP CLINOLIPID SCH (22:02)
[2023-01-30] MEDS ORDERED: XOPENEX/ATROVENT 1.25mg/0.5MG NEB COMBO NEB STA (22:04)
[2023-01-30] MEDS ORDERED: IPRATROPIUM BROMIDE NEB SOLN 0.02% 2.5 ML VIAL INH STA (22:16)
[2023-01-30] MEDS ORDERED: LEVALBUTEROL 1.25MG/0.5ML NEB INH STA (22:16)
[2023-01-30] MEDS ORDERED: ACETAMINOPHEN 1,000 MG/100 ML VIAL IV STA (22:27)
--- NOTE | 2023-01-30 22:28 | Communication Note ---
Date of Service: January 30, 2023 Patient with rapid A-fib and worsening shortness of breath overnight. Patient noted to be coughing during drinking as per RN. Concern for aspiration as per RN. Chest x-ray as per my interpretation bilateral infiltrates, congestion. AP Hypoxemic respiratory failure multifactorial : Aspiration pneumonia Fluid overload A-fib secondary to above Supplemental O2 BiPAP Additional Lasix Ertapenem in place of Zosyn for decreased volume Solu-Medrol 1 dose now, nebs stat Aspiration precautions, swallow eval in a.m. Intermittent Cardizem and IV Lopressor boluses for A-fib. Will relay to AM provider.
[2023-01-30] MEDS ORDERED: ERTAPENEM SODIUM 1,000 MG in SYRINGE 0 ML IV SCH (22:30)
[2023-01-30] MEDS ORDERED: methylPREDNISolone 40 MG in SYRINGE 0 ML IV ONE (22:30)
[2023-01-30 22:55] LABS: Base Excess ABG 4.3 mEq/L (-9-1.8); HCO3 ABG 25 mmol/L (19-24); Oxygen Saturation ABG 95.7 % (90-95); PCO2 ABG 26 mmHg (35-46); PO2 ABG 59 mmHg (80-95)
[2023-01-30 22:57] LABS: Allen Test Pos (Pos)
[2023-01-30 22:59] LABS: pH ABG 7.59 (7.35-7.45)
[2023-01-30] MEDS ORDERED: FUROSEMIDE 40 MG/4 ML VIAL IV ONE (23:00)
[2023-01-30] MEDS: ERTAPENEM SODIUM 1,000 MG in SYRINGE 0 ML IV SCH (23:08)
[2023-01-31] MEDS ORDERED: METOPROLOL TARTRATE 1 MG/ML VIAL IV STA ×2 (01:14→04:01)
[2023-01-31] MEDS ORDERED: dilTIAZem HCl 5 MG/ML 5 ML VIAL IV STA ×2 (02:01→02:36)
[2023-01-31] MEDS: ALBUMIN 25% 100 mL 25 GM/100 ML VIAL IV SCH (03:34)
[2023-01-31] MEDS: FUROSEMIDE 40 MG/4 ML VIAL IV SCH ×4 (03:34→21:13)
[2023-01-31 03:40] LABS: Hematocrit (blood only) 24.9 % (37.0-47.0); Hemoglobin 8.2 g/dl (12.0-16.0); Mean Corpuscular Hemoglobin 28.6 pg (25.0-34.0); Mean Corpuscular Hgb Conc 32.9 g/dL (32.0-36.0); Mean Corpuscular Volume 86.8 fL (80.0-100.0); Mean Platelet Volume 9.4 fL (9.4-12.4); Platelet Count 310 K/uL (130-400); RDW Coefficient of Variation 17.2 % (11.5-14.5); RDW Standard Deviation 50.4 fL (36.4-46.3); Red Blood Count 2.87 M/uL (4.20-5.40); White Blood Count 24.39 K/ul (4.8-10.8)
[2023-01-31 03:56] LABS: BUN Creatinine Ratio 34.7 (10-20); Calcium 7.9 mg/dl (8.6-10.3); Creatinine Clr Calc Pharmacy 37.3 ml/min; Est GFR (African American) 39.6 ml/min; Est GFR (Non-African American) 34.2 ml/min; Magnesium 1.9 mg/dl (1.7-2.4); Phosphorus 3.9 mg/dl (2.5-4.9)
[2023-01-31 03:57] LABS: Basophils # (auto) 0.03 K/uL (0-0.2); Basophils % (auto) 0.1 %; Eosinophils # (auto) 0.02 K/uL (0-0.50); Eosinophils % (auto) 0.1 %; Immature Granulocytes # (auto) 0.25 K/uL (0.01-0.20); Lymphocytes # (auto) 1.75 K/uL (1.2-3.4); Lymphocytes % (auto) 7.2 %; Monocytes # (auto) 0.43 K/uL (0.11-0.59); Monocytes % (auto) 1.8 %; Neutrophils # (auto) 21.91 K/uL (1.40-6.50); Neutrophils % (auto) 89.8 %; Polychromasia 1+
[2023-01-31] MEDS ORDERED: MAGNESIUM SULFATE / D5W 1 GM/100 ML BAG IV ONE (04:00)
[2023-01-31] MEDS ORDERED: ATROPINE SULFATE 0.1 MG/ML 10ML SYR IV ONE (04:34)
--- NOTE | 2023-01-31 07:45 | Nephrology Progress Note ---
Date of Service January 31, 2023 Assessment & Plan (1) Acute renal failure: Plan: nonoliguric ischemic ATN, stage 2, improving but now w/ volume overload, acute respiratory failure; ABG w/ hypoxia and combined metabolic/respiratory alkalosis before bipap Her baseline creatinine as recently as the middle of November 2022 was actually 0.9. During mid November to mid December extended admission for cholangitis and pancreatitis with complications, she had acute renal failure requiring several treatments of intermittent hemodialysis, with last treatment January 01. Her renal function recovered sufficiently to stop hemodialysis. Her discharge creatinine was 1.8 on January 12. Her presenting creatinine this admission on January 15 was 2; she hovered in this range until 01/29, w/ slow downtrend to 1.5. has pulmonary edema and pleural effusion >> need to offload volume >> lasix 30 mg qid IV plus K IV 60 mEq IV in addition to 20 mEq po bid >recheck BMP ordered for 2000 Continue to monitor renal function with daily BMP Admission and Anticipated Discharge Date Admission Date: January 15, 2023 Subjective AF w/ RVR overnight > on bipap, cardizem/lopressor; ? aspiration; back to SR now; no further bradycardic episodes. pt unable to provide ROS Review of Systems Review of Systems: Unobtainable due to reduced consciousness Physical Exam Constitutional: well developed, well nourished, + frail appearing and cooperative; no acute distress Eyes: EOM intact bilaterally ENMT: Ears: no external ear abnormality Nose: no external nose abnormality Mouth: + dry oral mucous membranes Neck: no nuchal rigidity Respiratory: normal respiratory effort (on bipap) Auscultation: + diminished lung sounds and + crackles (fine posterior fernandez) Cardiovascular: Rate/Rhythm: regular rate and regular rhythm Extremities: + edema (much diminished) Gastrointestinal (Abdomen): Inspection/Auscultation: normal bowel sounds and + abdominal surgical drain present Percussion/Palpation: abdomen soft; abdomen nontender Musculoskeletal: Extremities: strength 5/5 throughout and + abnormal strength (can't hold arms up) Skin: no rashes, warm and dry Neurologic: lethargic, moans w/ exam maneuvers; not interacting Genitourinary: purewick Results & Data Vital Signs (Past 12 Hours) Vital Signs Temp Pulse Pulse Resp BP BP Pulse Ox 01/31/23 07:27 37 C 75 20 136/70 97 01/31/23 07:28 77 22 96 01/31/23 06:00 37.0 C 80 25 H 147/79 H 97 01/31/23 02:30 36.7 C 102 H 24 125/88 98 01/31/23 02:00 111 H 24 124/89 98 01/31/23 01:30 109 H 25 H 127/82 98 01/31/23 01:00 113 H 24 135/93 98 01/31/23 00:30 77 22 144/77 H 98 01/31/23 00:00 81 27 H 143/73 H 97 01/31/23 04:20 112 H 147/95 H 01/31/23 01:39 110 H 127/82 01/30/23 21:58 90 01/30/23 21:28 80 01/30/23 20:58 130 H 01/30/23 23:20 88 36 H 97 01/30/23 23:30 85 26 H 155/85 H 96 01/30/23 23:00 36.8 C 93 H 35 H 159/84 H 96 01/30/23 22:30 93 H 33 H 167/91 H 92 01/30/23 22:00 87 40 H 178/91 H 93 01/30/23 21:30 85 35 H 168/80 H 90 01/30/23 21:00 131 H 26 H 179/143 H 96 01/30/23 22:00 36.8 C 85 32 H 161/113 H 94 01/30/23 22:32 92 H 31 H 93 O2 Del Method O2 Flow Rate FiO2 01/31/23 07:27 BiPAP 01/31/23 07:28 40 01/31/23 06:00 BiPAP 40 01/31/23 02:30 BiPAP 40 01/31/23 02:00 BiPAP 40 01/31/23 01:30 BiPAP 40 01/31/23 01:00 BiPAP 40 01/31/23 00:30 BiPAP 40 01/31/23 00:00 BiPAP 40 01/31/23 04:20 01/31/23 01:39 01/30/23 21:58 01/30/23 21:28 01/30/23 20:58 01/30/23 23:20 40 01/30/23 23:30 BiPAP 40 01/30/23 23:00 Nasal Cannula 4 01/30/23 22:30 Nasal Cannula 4 01/30/23 22:00 Nasal Cannula 4 01/30/23 21:30 Nasal Cannula 4 01/30/23 21:00 Nasal Cannula 4 01/30/23 22:00 Nasal Cannula 4 01/30/23 22:32 Nasal Cannula 5 Laboratory Results 01/31/23 03:11 01/31/23 03:11 Diagnostic Findings cxr > pulmonary edema versus multifocal PNA; L pleural effusion
[2023-01-31] MEDS: INSULIN ASPART PER UNIT CHARGE SC SCH ×4 (08:11→21:10)
[2023-01-31] MEDS: APIXABAN 5 MG TABLET PO SCH (08:12)
[2023-01-31] MEDS: POTASSIUM CHLORIDE CRTAB 20 MEQ TABCR PO SCH (08:12)
[2023-01-31] MEDS: METOPROLOL SUCC 25MG EXT REL TAB PO SCH (08:13)
[2023-01-31] MEDS: SERTRALINE HCL 50 MG TABLET PO SCH (08:13)
[2023-01-31] MEDS: methIMAzole 5 MG TABLET PO SCH (08:13)
[2023-01-31] MEDS: MAGNESIUM OXIDE 400 MG TAB PO SCH (08:15)
--- NOTE | 2023-01-31 08:28 | XRay Report ---
SINGLE VIEW CHEST CLINICAL HISTORY: Dyspnea. FINDINGS: An AP, portable, upright chest radiograph is compared to performed earlier the same day 01/30. The cardiomediastinal silhouette is unremarkable noting atherosclerotic calcification of the t horacic aorta. Multifocal airspace consolidation has not significantly changed as compared to today's earlier examination. A small left pleural effusion is noted. No pneumothorax is seen. The skeletal s tructures are osteopenic. The bony thorax is grossly intact. Biliary stents and a drain are noted in the right upper quadrant. IMPRESSION: 1. Multifocal airspace consolidation is unchanged from today's earlier examination. This could repres ent multifocal pneumonia and/or pulmonary edema. Clinical correlation would be required and radiograp hic follow-up to resolution is recommended. 2. Left pleural effusion. ACT 112: Negative or not required by law. Electronically signed by: Chidi Garay M.D. 01/31/2023 8:26 AM
[2023-01-31] MEDS ORDERED: DAPTOmycin 700 MG in SYRINGE 0 ML IV SCH (09:00)
[2023-01-31] MEDS ORDERED: AMIODARONE 200 MG TAB PO SCH (09:00)
--- NOTE | 2023-01-31 09:01 | Surgery Progress Note ---
Date of Service January 31, 2023 Assessment & Plan (1) Pancreatitis: Plan: Significant recent cardiopulmonary issues Does not seem to have significant abdominal pain Abdominal drain with approximate 25 cc per shift Appears to be pancreatic ascites-cultures have been negative so far We will discuss with GI duration of bleeding this drain as there could be some risk of infection Continuing on IV antibiotics Could consider a bedside ultrasound to assess fluid collections Admission and Anticipated Discharge Date Admission Date: January 15, 2023 Results & Data Vital Signs (Past 12 Hours) Vital Signs Temp Pulse Pulse Resp BP BP Pulse Ox 01/31/23 07:27 37 C 75 20 136/70 97 01/31/23 07:28 77 22 96 01/31/23 06:00 37.0 C 80 25 H 147/79 H 97 01/31/23 02:30 36.7 C 102 H 24 125/88 98 01/31/23 02:00 111 H 24 124/89 98 01/31/23 01:30 109 H 25 H 127/82 98 01/31/23 01:00 113 H 24 135/93 98 01/31/23 00:30 77 22 144/77 H 98 01/31/23 00:00 81 27 H 143/73 H 97 01/31/23 04:20 112 H 147/95 H 01/31/23 01:39 110 H 127/82 01/30/23 21:58 90 01/30/23 21:28 80 01/30/23 23:20 88 36 H 97 01/30/23 23:30 85 26 H 155/85 H 96 01/30/23 23:00 36.8 C 93 H 35 H 159/84 H 96 01/30/23 22:30 93 H 33 H 167/91 H 92 01/30/23 22:00 87 40 H 178/91 H 93 01/30/23 21:30 85 35 H 168/80 H 90 01/30/23 21:00 131 H 26 H 179/143 H 96 01/30/23 22:00 36.8 C 85 32 H 161/113 H 94 01/30/23 22:32 92 H 31 H 93 O2 Del Method O2 Flow Rate FiO2 01/31/23 07:27 BiPAP 01/31/23 07:28 40 01/31/23 06:00 BiPAP 40 01/31/23 02:30 BiPAP 40 01/31/23 02:00 BiPAP 40 01/31/23 01:30 BiPAP 40 01/31/23 01:00 BiPAP 40 01/31/23 00:30 BiPAP 40 01/31/23 00:00 BiPAP 40 01/31/23 04:20 01/31/23 01:39 01/30/23 21:58 01/30/23 21:28 01/30/23 23:20 40 01/30/23 23:30 BiPAP 40 01/30/23 23:00 Nasal Cannula 4 01/30/23 22:30 Nasal Cannula 4 01/30/23 22:00 Nasal Cannula 4 01/30/23 21:30 Nasal Cannula 4 01/30/23 21:00 Nasal Cannula 4 01/30/23 22:00 Nasal Cannula 4 01/30/23 22:32 Nasal Cannula 5 PG Care Time/CCT Total # of Minutes Spent Total Time Spent with Patient: Total time spent is greater than 50% in coordination of care (as documented) at patient's floor/unit and/or counseling patient: Coding Level of Care Code None Diagnoses Pancreatitis K85.90
--- NOTE | 2023-01-31 11:01 | Pulmonary Consultation ---
Date of Consultation January 31, 2023 Assessment & Plan (1) Acute respiratory failure with hypoxia: (2) Pleural effusion, left: (3) Pneumonia: (4) Afib: Plan Chest x-ray 01/30/2023 personally reviewed: Poor inspiratory effort, alveolar opacities appreciated especially in the left side, blunted left costophrenic angle Increased cardiac silhouette There has been progressive worsening in the infiltrate compared to 01/15/2023 and especially 12/26/2022 2D echo 12/10/2022: EF 65-70%, grade 1 diastolic dysfunction, RV normal in size and function ABG 01/30/2023: 7.59/26/59 on 2 L -- Acute hypoxic respiratory failure Multifactorial A-fib with RVR Possible aspiration BNP 763 Procalcitonin 0.79 Patient's ABG has been persistently alkalotic. -- Left-sided pleural effusion with dependent left lower lobe atelectasis Likely coming from ascites No plan for any intervention right now --A-fib On apixaban Plan: In/out: +1.4 L, urine output 2050, +19 L since coming to the hospital Recommend aggressive diuresis to get the patient negative balance Follow BNP and procalcitonin Patient is already on ertapenem which will cover for aspiration pneumonia BiPAP nightly and as needed shortness of breath Case was discussed with RN at bedside as well as Dr. Lopez Please note the above document was generated using voice recognition software. It may contain grammatical, syntax or spelling errors.Any formal questions or concerns about the content, text or information contained within the body of this dictation should be directly addressed to the provider for clarification. History of Present Illness Attending Physician: Leandro Lopez MD History of Present Illness 72-year-old female admitted to the hospital for abdominal and belly pain. Past medical history: Hypertension, anxiety, neurogenic bladder, osteoporosis, MS Pulmonary consulted for worsening shortness of breath Patient was initially admitted to the ICU in septic shock. She has ERCP At the time of examination patient's partner was in the room. Patient's heart rate was in the 90s. She was saturating 94-95% on 3 L nasal cannula. I went down to 1 and half liters. She was awake and alert, answering all the questions appropriately Denied any chest pain, no headache, no nausea, no vomiting No abdominal pain She was following commands and moving all the extremities appropriately. Denied any difficulty swallowing. Did not recall any bouts of vomiting. Social history: Approximately [id number] smoking history quit in 2003. No illicit drug use. Allergies Allergy/AdvReac Type Severity Reaction Status Date / Time No Known Allergies Allergy Unverified 01/15/23 17:50 Home Medications Medication Instructions Recorded Confirmed Type apixaban 5 mg tablet (Eliquis) 5 mg PO BID #60 tabs 01/12/23 01/15/23 Rx levofloxacin 750 mg tablet 750 mg PO Q48H #3 tabs 01/12/23 01/15/23 Rx methimazole 5 mg tablet 5 mg PO DAILY #30 tabs 01/12/23 01/15/23 Rx acetaminophen 325 mg tablet 650 mg PO Q6 PRN Fever Or Pain 01/15/23 01/15/23 History amiodarone 200 mg tablet 200 mg PO QAM 01/15/23 01/15/23 History diclofenac sodium 1 % topical gel 2 g topical QID 01/15/23 01/15/23 History magnesium oxide 400 mg (241.3 mg 400 mg PO QAM 01/15/23 01/15/23 History magnesium) tablet menthol 0.44 %-zinc oxide 20.6 % 1 applic topical TID 01/15/23 01/15/23 History topical ointment (Calmoseptine) metoprolol succinate 50 mg 50 mg PO AMHS 01/15/23 01/15/23 History tablet,extended release 24 hr oxycodone 5 mg tablet 5 mg PO Q6 PRN pain,moderate 01/15/23 01/15/23 History oxycodone 5 mg tablet 10 mg PO Q6 PRN pain,severe 01/15/23 01/15/23 History sennosides 8.6 mg-docusate sodium 1 tab PO AMHS 01/15/23 01/15/23 History 50 mg tablet (Senokot-S) sertraline 50 mg tablet 50 mg PO QAM 01/15/23 01/15/23 History Patient History Medical History Acute renal failure Required several dialysis treatments during mid November to mid December 2022 admission Ambulatory dysfunction d/t MS Bile leak from gallbladder bed Cholangitis Depression History of claustrophobia Hypertension Hyperthyroidism Multiple sclerosis Pancreatitis Surgical History Hx laparoscopic cholecystectomy (12/10/22) Laparoscopic cholecystectomy with extensive lysis of adhesions, please add modifier for extensive difficulty and increased length of the procedure. Social History Smoking Status: Former smoker Smoking End Date: 1989; Second Hand Exposure: No; Do You Dip or Chew Tobacco: No; Tobacco Cessation Education Requested by Patient: No Hx Alcohol Use: No Hx Substance Use: No Preferred Language: Yemeni Communication Ability: Effective Visual Impairment: No Limitations Workday Senior Associate Required: No Beliefs That Will Affect Care: None marital status: Single Current Living Situation: Snf current occupational status: retired Other Information That Helps Us Care for You: No Feels Safe at Home: Yes Safety Concerns: Feels Safe At This Time Assistive Devices: Walker Review of Systems Review of Systems: All systems reviewed & are unremarkable except as noted in HPI & below Physical Exam Physical Exam: Constitutional: No acute distress HEENT: EOMI, PERRLA Respiratory system: Decreased air entry bilaterally, no wheeze, no rhonchi, positive crackles bilaterally more on the left side CVS: S1-S2 positive, no murmurs or gallops Abdomen: Soft, nontender, nondistended, positive bowel sounds x4 Extremities: +2 pulses bilaterally radialis/ dorsalis pedis, no cyanosis, +1 pitting edema bilateral lower extremity Neuro: Awake alert oriented x3 Psych: Normal mood and affect G/U: Positive [place] Skin: no rashes, warm and dry Lymphatic: no cervical or axillary lymphadenopathy Results & Data Results & Data Vital Signs (Past 12 Hours) Vital Signs Temp Pulse Pulse Resp BP BP Pulse Ox 01/31/23 08:00 81 01/31/23 09:44 82 23 97 01/31/23 07:27 37 C 75 20 136/70 97 01/31/23 07:28 77 22 96 01/31/23 06:00 37.0 C 80 25 H 147/79 H 97 01/31/23 02:30 36.7 C 102 H 24 125/88 98 01/31/23 02:00 111 H 24 124/89 98 01/31/23 01:30 109 H 25 H 127/82 98 01/31/23 01:00 113 H 24 135/93 98 01/31/23 00:30 77 22 144/77 H 98 01/31/23 00:00 81 27 H 143/73 H 97 01/31/23 04:20 112 H 147/95 H 01/31/23 01:39 110 H 127/82 01/30/23 23:20 88 36 H 97 01/30/23 23:30 85 26 H 155/85 H 96 01/30/23 23:00 36.8 C 93 H 35 H 159/84 H 96 O2 Del Method O2 Flow Rate FiO2 01/31/23 08:00 01/31/23 09:44 35 01/31/23 07:27 BiPAP 01/31/23 07:28 40 01/31/23 06:00 BiPAP 40 01/31/23 02:30 BiPAP 40 01/31/23 02:00 BiPAP 40 01/31/23 01:30 BiPAP 40 01/31/23 01:00 BiPAP 40 01/31/23 00:30 BiPAP 40 01/31/23 00:00 BiPAP 40 01/31/23 04:20 01/31/23 01:39 01/30/23 23:20 40 01/30/23 23:30 BiPAP 40 01/30/23 23:00 Nasal Cannula 4 Laboratory Results 01/31/23 03:11 01/31/23 03:11 PG Care Time/CCT Total # of Minutes Spent Total Time Spent with Patient: Total time spent is greater than 50% in coordination of care (as documented) at patient's floor/unit and/or counseling patient: Coding Level of Care Code 90254 INT INP/OBS CARE 3/75MIN Diagnoses Acute respiratory failure with hypoxia J96.01 Pleural effusion, left J90 Pneumonia J18.9 Afib I48.91
--- NOTE | 2023-01-31 12:26 | Cardiology Progress Note ---
Date of Service January 31, 2023 Assessment & Plan (1) Sinus bradycardia: (2) Paroxysmal atrial fibrillation: (3) Post-menopausal bleeding: (4) Sepsis: (5) Acute respiratory failure with hypoxia: Plan - Patient with anemia, hemoglobin down to 6.7 on 01/29/2023, felt to be due to postmenopausal uterine bleeding. She received a unit of packed red blood cells, repeat hemoglobin this morning 8.4. -Stable anemia -Worsening volume status overnight, likely in setting of excessive IV f luids/medications and PRBC's yesterday. -Agree with increasing furosemide IV today and close monitoring of renal function. -Pulm now consulted for worsening respiratory status, aspiration pneumonia, hypoxia. -No recurrent bradycardic episodes. Amiodarone and metoprolol were held yesterday -Resume amiodarone 200 mg daily today -Continue metoprolol 12.5 mg daily -Eliquis has been discontinued. At present prophylactic benefits of anticoagulation are outweighed by the prohibitive bleeding risk. -Looking ahead, anticipate avoiding systemic anticoagulation, but will likely require DVT prophylaxis given her bedbound state. Patient unfortunately with multiple comorbidities and not improving. worsening respiratory status now noted. Consider palliative care? Case discussed with Dr. Cerna I spent a total of 35 minutes on the date of service in preparation, delivery, and documentation of the care provided to this patient, excluding any time spent in the performance of separately billed services. Cheryle Sanchez PA-C Department of Cardiology, [facility] This chart was completed in part utilizing Speech Voice Recognition Software. Grammatical errors, random word insertions, prounoun errors, and incomplete sentences are an occasional consequence of this system due to software limitations, ambient noise, and hardware issues. Any formal questions or concerns about the content, text, or information contained within the body of this dictation should be directly addressed to the provider for clarification. Admission and Anticipated Discharge Date Admission Date: January 15, 2023 Supervising Physician Co-Signing Physician Notes Supervising Physician Attestation: I have personally performed a history and physical examination on the patient. I agree with the physician assistant credit manager's findings and plan as documented with the following additions. Subjective: Patient on positive pressure ventilation at the time my assessment. Multiple episodes of atrial fibrillation observed, back in sinus rhythm at the time my assessment however rates in the 90s frequently, and I think she is certainly at risk for recurrent atrial fibrillation. Exam: Cardiovascular: Regular rhythm, no murmurs, no edema Assessment and Plan: -Agree with nephrology advice with regards to IV furosemide. -Patient not tolerating oral medication, therefore oral amiodarone discontinued. -No additional bradycardia. Will start low dose IV metoprolol, 2.5 mg IV every 8 hours with hold for heart rate less than 60, systolic blood pressure less than 100. -Eliquis has been continued as of now. Tomi Cerna, Subjective Patient on BIPAP. Limited review of systems. Family at bedside and on the phone. Patient with worsening SOB, respiratory status overnight. Chest xray consistent with probable pneumonia and worsening pleural effusions. Diuretics increased. Pulm consulted. She also had recurrent PAF with RVR. Started on diltiazem gtt and converted to NSR. She has been in NSR since around 4:30 AM Review of Systems Review of Systems: Other (Limited due to BIPAP) Physical Exam Constitutional: WD/WN, vitals as above + ill appearing and + lethargic Respiratory: normal respiratory effort Auscultation: + diminished lung sounds; no crackles and no rales Cardiovascular: Rate/Rhythm: regular rate and regular rhythm Heart Sounds: no murmur Extremities: + edema (trace pretibial and pedal edema) Gastrointestinal (Abdomen): normal bowel sounds, soft, nontender, no hepatosplenomegaly Results & Data Vital Signs (Past 12 Hours) Vital Signs Temp Pulse Pulse Resp BP BP Pulse Ox 01/31/23 11:58 36.7 C 76 20 135/66 96 01/31/23 08:00 81 01/31/23 09:44 82 23 97 01/31/23 07:27 37 C 75 20 136/70 97 01/31/23 07:28 77 22 96 01/31/23 06:00 37.0 C 80 25 H 147/79 H 97 01/31/23 02:30 36.7 C 102 H 24 125/88 98 01/31/23 02:00 111 H 24 124/89 98 01/31/23 01:30 109 H 25 H 127/82 98 01/31/23 01:00 113 H 24 135/93 98 01/31/23 00:30 77 22 144/77 H 98 01/31/23 04:20 112 H 147/95 H 01/31/23 01:39 110 H 127/82 O2 Del Method FiO2 01/31/23 11:58 BiPAP 01/31/23 08:00 01/31/23 09:44 35 01/31/23 07:27 BiPAP 01/31/23 07:28 40 01/31/23 06:00 BiPAP 40 01/31/23 02:30 BiPAP 40 01/31/23 02:00 BiPAP 40 01/31/23 01:30 BiPAP 40 01/31/23 01:00 BiPAP 40 01/31/23 00:30 BiPAP 40 01/31/23 04:20 01/31/23 01:39 Laboratory Results Cardiac Enzymes 01/30/23 01/31/23 Range/Units 17:11 11:11 Troponin I High Sens 22.3 H (0-14) pg/ml B-Natriuretic Peptide 763 H (0-100) pg/ml Coagulation 01/31/23 Range/Units 11:11 B-Natriuretic Peptide 763 H (0-100) pg/ml Lipids 01/31/23 Range/Units 03:11 Triglycerides 193 H (0-150) mg/dl CBC 01/31/23 Range/Units 03:11 WBC 24.39 H (4.8-10.8) K/ul RBC 2.87 L (4.20-5.40) M/uL Hgb 8.2 L (12.0-16.0) g/dl Hct 24.9 L (37.0-47.0) % Plt Count 310 (130-400) K/uL Neut # (Auto) 21.91 H (1.40-6.50) K/uL Lymph # (Auto) 1.75 (1.2-3.4) K/uL Sunflower # (Auto) 0.43 (0.11-0.59) K/uL Eos # (Auto) 0.02 (0-0.50) K/uL Baso # (Auto) 0.03 (0-0.2) K/uL Comprehensive Metabolic Panel 01/31/23 Range/Units 03:11 Sodium 143 (136-145) mmol/L Potassium 4.0 (3.5-5.1) mmol/L Chloride 105 (98-107) mmol/L Carbon Dioxide 24 (21-32) mmol/L BUN 52 H (6-23) mg/dl Creatinine 1.50 H (0.6-1.2) mg/dl Glucose 171 H (70-99(Fasting)) mg/dl Calcium 7.9 L (8.6-10.3) mg/dl Intake and Output 01/30/23 01/31/23 01/31/23 22:59 06:59 14:59 Intake Total 2906.247 / 3708.514 200 / 3708.514 Output Total 800 / 2051 700 / 2051 Balance 2106.247 / 1657.514 -500 / 1657.514 Intake: IV 2806.247 / 3368.514 200 / 3368.514 ALBUMIN 25% 100 mL 25 gm In 100 100 / 200 100 / 200 ml @ 50 mls/hr IV Q12H [facility] Rx# :[id number] Aa 4.25%/D5w 2L 1,795.16 ml In 2236.247 / 2236.247 Custom Peripheral TPN bag 0 ml @ 74.798 mls/hr IV .Q24H [facility] Rx #:[id number] Acetaminophen 1,000 mg In 100 100 / 100 ml @ 400 mls/hr IV NOW STA Rx#: [id number] Clinolipid 20% IV Fat Emulsion 250 / 250 250 ml @ 41.667 mls/hr IV .Q6H [facility] Rx#:[id number] Magnesium Sulfate / D5w 1 gm In 100 / 100 100 ml @ 50 mls/hr IV ONE ONE Rx#:[id number] Piperacillin/Tazobactam 4.5 gm 120 / 240 In Dextrose 5% 100 ml @ 30 mls/ hr IV Q8H [facility] Rx#:[id number] Oral 100 / 340 Output: Urine 100 / 350 250 / 350 Urine Amount (Catheter) 700 / 1650 400 / 1650 External 700 / 1650 400 / 1650 Drain Output 50 / 50 Left Abdomen 50 / 50 Other: Weight 92.1 kg Weight Measurement Method Built in [facility] Diagnostic Findings Telemetry reviewed: Overnight she had recurrent episodes of PAF with RVR. Converted to NSR on diltiazem gtt at 4:30 AM. No bradycardic episodes. Medications Administered Current Inpatient Medications Acetaminophen (Acetaminophen 325 Mg Tab) 650 mg PO Q6 PRN PRN Reason: Fever Or MILD Pain Stop: 02/14/23 23:34 Last Admin: 01/28/23 21:16 Dose: 650 mg Amiodarone HCl (Amiodarone 200 Mg Tab) 200 mg PO QAM [facility] Stop: 03/02/23 08:59 Last Admin: 01/31/23 08:12 Dose: 200 mg Apixaban (Apixaban 5 Mg Tablet) 5 mg PO BID [facility] Stop: 02/15/23 08:59 Last Admin: 01/31/23 08:12 Dose: 5 mg Dextrose (Dextrose 50% 50 Ml Syringe) 25 - 50 ml IV UD PRN; Protocol PRN Reason: Hypoglycemia Protocol Stop: 02/15/23 08:04 Furosemide (Furosemide 40 Mg/4 Ml Vial) 30 mg IV QID [facility] Stop: 03/02/23 12:59 Glucagon (Glucagon For Inj 1 Mg Vial) 1 mg SQ UD PRN; Protocol PRN Reason: Hypoglycemia Protocol Stop: 02/15/23 08:04 Glucose (Glucose 40% Gel 15 Gm Tube) 15 - 30 gm PO UD PRN; Protocol PRN Reason: Hypoglycemia Protocol Stop: 02/15/23 08:04 Glucose (Glucose 10 Tab/Tube) 4 - 8 tab PO UD PRN; Protocol PRN Reason: Hypoglycemia Treatment Stop: 02/15/23 08:04 Albumin Human (Albumin 25% 100 Ml) 25 gm in 100 mls @ 50 mls/hr IV Q12H [facility] Stop: 01/31/23 15:29 Last Infusion: 01/31/23 05:34 Dose: Infused Amino Acids 1,795.16 ml/ (Nutrition (Parenteral)) 1,795.16 mls @ 74.798 mls/hr IV .Q24H [facility]; Protocol Last Infusion: 01/30/23 22:10 Dose: 0 mls/hr Daptomycin 700 mg/ Syringe 14 mls @ 4.25 mls/min IV Q24H [facility]; Protocol Stop: 02/04/23 15:59 Last Admin: 01/30/23 15:25 Dose: 4.25 mls/min Ertapenem 1,000 mg/ Syringe 10 mls @ 2 mls/min IV Q24H [facility] Stop: 02/06/23 22:59 Last Admin: 01/30/23 23:08 Dose: 2 mls/min Potassium Chloride (K [place] / Wtr) 10 meq in 100 mls @ 100 mls/hr IV Q1H [facility] Stop: 01/31/23 17:44 Insulin Aspart (Insulin Aspart Per Unit Charge) 0 units SC ACHS [facility] Stop: 02/28/23 17:59 Last Admin: 01/31/23 08:11 Dose: 2 units Magnesium Oxide (Magnesium Oxide 400 Mg Tab) 400 mg PO QAM [facility] Stop: 02/15/23 08:59 Last Admin: 01/31/23 08:15 Dose: 400 mg Methimazole (Methimazole 5 Mg Tablet) 5 mg PO DAILY [facility] Stop: 02/15/23 08:59 Last Admin: 01/31/23 08:13 Dose: 5 mg Metoprolol Succinate (Metoprolol Succ 25mg Ext Rel Tab) [facility] [place] Stop: 03/01/23 09:44 Last Admin: 01/31/23 08:13 Dose: 12.5 mg Miscellaneous (Carbohydrates For Hypoglycemia ) 15 - 30 gm PO UD PRN PRN Reason: Hypoglycemia Protocol Stop: 02/15/23 08:04 Miscellaneous (Stop Clinolipid) 1 each N/A DAILY@2200 [facility] Stop: 02/27/23 21:59 Last Admin: 01/30/23 22:02 Dose: 1 each Miscellaneous Information (Tpn/Ppn Consult Pharmacy) 1 each N/A UD PRN PRN Reason: Consult Stop: 02/25/23 08:39 Potassium Chloride (Potassium Chloride Crtab 20 Meq Tabcr) 20 meq PO BID [facility] Stop: 03/01/23 08:59 Last Admin: 01/31/23 08:12 Dose: 20 meq Sertraline HCl (Sertraline Hcl 50 Mg Tablet) [facility] [place] Stop: 02/15/23 08:59 Last Admin: 01/31/23 08:13 Dose: 50 mg (4) Sepsis Sepsis acute organ dysfunction status: unspecified Sepsis type: sepsis due to unspecified organism Qualified Code(s): A41.9 - Sepsis, unspecified organism
[2023-01-31] MEDS: POTASSIUM CHLORIDE / WTR 10 MEQ/100 ML PLCT IV SCH ×6 (12:57→17:22)
--- NOTE | 2023-01-31 13:52 | Communication Note ---
Date of Service: January 31, 2023 We were asked for input on the pt's drain that was placed by IR for treatment of upper abd fluid collection. -Drain placed by IR on 01/26 for an enlarging loculated fluid collection around the lateral segment of the left lobe of the liver. It is difficult to say if the fluid will not reaccumulate if drain is pulled but if it was related to the bile leak and/or complications of pancreatitis, I would not expect reaccumulation. Though certainly the risk of infection is concerning with indwelling foreign body. Best would be to re image collection with ultrasound to confirm significant reduction before removal. Compa Bowers M.D.
[2023-01-31] MEDS: METOPROLOL TARTRATE 1 MG/ML VIAL IV SCH ×2 (14:20→21:16)
--- NOTE | 2023-01-31 15:57 | Hospitalist Progress Note ---
Date of Service January 31, 2023 Assessment & Plan (1) Septic shock: Plan: Patient was recently hospitalized for about a month during which she was managed for acute pancreatitis, acute cholangitis, septic shock, acute renal failure requiring dialysis briefly, paroxysmal A-fib. Underwent ERCP on 12/10 with removal of stones from the bile duct. Underwent lap adele with extensive lysis of adhesions on 12/10 by general surgery.[facility] and represented with abdominal and back pain. Septic Shock Was on Levophed which was weaned off on 01/17. Sources of sepsis: include intra-abdominal infection, surgical subhepatic drain in situ, recent UTI. Acute on chronic pancreatitis Intra-abdominal fluid collection-biliary leak, necrotic pancreatitis Perisplenic Hemorrhage --CT ABD: Redemonstration of the severe pancreatitis. This is similar to the prior study. Postoperative changes consistent with a recent cholecystectomy with a small amount of nonspecific perihepatic fluid and a small amount of pneumoperitoneum remaining. A right subhepatic percutaneous drainage catheter remains unchanged in position. The common bile duct stent appears in good position. There is associated pneumobilia. Small bilateral pleural effusions persist. No change in the patchy groundglass airspace opacities within the lungs. This may represent an atypical/viral pneumonitis. Fluid-filled nondilated loops of large and small bowel which may represent a gastroenteritis/diarrheal illness. Bilateral nephrolithiasis. No ureteral stones. No hydronephrosis. --Repeat CT:Findings consistent with severe acute pancreatitis. 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 Perisplenic hemorrhage, stable to slightly increased since prior CT. The perisplenic fluid collection has increased in size since prior CT. Irregularity of the spleen consistent with splenic injury. Increase in size of perihepatic and perigastric fluid collections with mass effect upon the stomach. The perihepatic fluid collection could be related to a bile leak or acute pancreatitis. Increase in gas within the cholecystectomy bed. This is nonspecific given indwelling surgical drain and common bile duct stent however a persistent biliary leak cannot be excluded. No significant change in a moderate left pleural effusion with left lower lobe atelectasis. Slight increase in small to moderate pelvic ascites. --EUS/ERCP 01/24 w/ evidence of ascites and evidence of persistent leak from remnant gallbladder s/p stent exchange and fibrin glue injection to the cystic duct --S/P ultrasound guided perihepatic fluid aspiration and placement of drain --Abd Fluid Cx: Enterococcus faecium -- Repeat abdominal fluid culture no growth --Blood cultures negative Appreciate ID, surgery, GI, IR input On IV daptomycin, Zosyn>> IV daptomycin and ertapenem Pt did not tolerate Dobhoff feeding placement before IV PPN held due to volume overload status Monitor for bleeding issues Will need repeat ultrasound to assess fluid collections Remains critical, palliative care consulted to address goals of care Acute respiratory failure with hypoxia Likely multifactorial secondary to A-fib RVR, Possible aspiration Left-sided pleural effusion/atelectasis --CXR:Multifocal airspace consolidation is unchanged from today's earlier examination. This could represent multifocal pneumonia and/or pulmonary edema. Clinical correlation would be required and radiographic follow-up to resolution is recommended. Left pleural effusion. -- Procalcitonin 0.79 Continue antibiotics as above Continue supplemental oxygen as needed Appreciate pulmonary input Aspiration precautions Paroxysmal atrial fibrillation with RVR Intermittent bradycardia On Eliquis for anticoagulation Restarted amiodarone 200 mg daily Continue metoprolol Acute metabolic encephalopathy --CT Head:1. No acute intracranial hemorrhage. No evidence for acute territorial infarct. Multiple periventricular hypodense foci, the largest of which is a 2 cm left frontal lobe focus. These may reflect small vessel disease. However, age indeterminate infarcts, likely subacute to chronic, could appear similar. -- Reorient frequently to minimize delirium Monitor Acute blood loss anemia Likely multifactorial: Vaginal Bleeding/perisplenic hemorrhage S/P PRBCs Monitor H&H and transfuse as needed Postmenopausal vaginal bleeding Endometrial thickening --Pelvic USD:Pathologic thickening of the postmenopausal endometrium. Correlation with tissue sampling recommended. Pelvic ascites again noted. Nonvisualization of the ovaries. --Appreciate SALES AND SERVICE REPRESENTATIVE Input Needs outpatient D&C Anticoagulation can be restarted per OBGYN as per prior provider As per Prior Provider Facial Rash Likely due to rosacea Rosacea improved Hypertension Continue current medications Monitor (2) Hyperthyroidism: Plan: As per prior provider Patient on methimazole which is known to have a side effect of pancreatitis. However, will cont for now as this pancreatitis is improved clinically and there are more likely causes/contributing factors. (3) Pleural effusion, left: (4) Acute renal failure: Plan: Nonoliguric ischemic ATN Volume overload status Intermittent hemodialysis last admission Cr 1.8 on discharge last admission Continue IV Lasix Monitor electrolytes and replace as needed Monitor renal function Appreciate nephrology input (5) Acute pancreatitis: Plan: Bedsjone Has bilateral stasis to sacral decubitus Appreciate wound care management Plan Other significant medical conditions Depression Multiple sclerosis Continue home medications as able DVT Px Eliquis initially held due to splenic hemorrhage Restarted Eliquis from 01/31/23 Code Status Full code for now Consulted Pallaitive to address goals of care Admission and Anticipated Discharge Date Admission Date: January 15, 2023 Subjective Patient is seen and examined at bedside Patient went into A-fib RVR overnight resulting in worsening shortness of breath Patient doing better this morning but mental status waxes and wanes as per family On BiPAP overnight and later transitioned to nasal cannula Discussed with patient's family at bedside in detail Poor historian Denies any chest pain, dyspnea, dizziness, nausea, abdominal pain this morning No significant bleeding issues today Review of Systems Review of Systems: Other Physical Exam Physical Exam: Physical Exam: Vitals signs as noted above General Appearance:Moderately built and nourished, no distress, Ill appearing, Lethargic Head: normocephalic, Atraumatic Eyes: normal inspection, EOMI Neck: supple, Trachea midline Respiratory/Chest: Decreased breath sounds, CTA, No accessory muscle use Cardiovascular: S1, S2, No murmur Abdomen/GI:Soft, Non tender, +Abd Drain, +Surgical dressing, Bowel sounds present Extremities/Musculoskeletal:normal inspection, +generalized edema Neurologic/Psych:Lethargic and drowsy, unable to perform complete Neuro exam Skin: normal color, warm Results & Data Results & Data Vital Signs (Past 12 Hours) Vital Signs Temp Pulse Pulse Resp BP BP Pulse Ox 01/31/23 14:20 82 140/83 01/31/23 08:10 01/31/23 11:58 36.7 C 76 20 135/66 96 01/31/23 08:00 81 01/31/23 09:44 82 23 97 01/31/23 07:27 37 C 75 20 136/70 97 01/31/23 07:28 77 22 96 01/31/23 06:00 37.0 C 80 25 H 147/79 H 97 01/31/23 04:20 112 H 147/95 H O2 Del Method O2 Flow Rate FiO2 01/31/23 14:20 01/31/23 08:10 CPAP 8 35 01/31/23 11:58 BiPAP 01/31/23 08:00 01/31/23 09:44 35 01/31/23 07:27 BiPAP 01/31/23 07:28 40 01/31/23 06:00 BiPAP 40 01/31/23 04:20 Laboratory Results Short CBC 01/31/23 Range/Units 03:11 WBC 24.39 H (4.8-10.8) K/ul Hgb 8.2 L (12.0-16.0) g/dl Hct 24.9 L (37.0-47.0) % Plt Count 310 (130-400) K/uL BMP 01/31/23 03:11 Sodium 143 Potassium 4.0 Chloride 105 Carbon Dioxide 24 BUN 52 H Creatinine 1.50 H Glucose 171 H Calcium 7.9 L (5) Acute pancreatitis Acute pancreatitis complication: unspecified Pancreatitis type: unspecified pancreatitis type Qualified Code(s): K85.90 - Acute pancreatitis without necrosis or infection, unspecified
--- NOTE | 2023-01-31 16:12 | CT Scan Report ---
CT OF THE HEAD WITHOUT CONTRAST CLINICAL HISTORY: Altered mental status. COMPARISON STUDY: No previous studies for comparison. CT DOSE: 537.48 mGy.cm TECHNIQUE: Helical axial images of the head were obtained without IV contrast. Automated exposure con trol was utilized for the study. A dose lowering technique was utilized adhering to the principles o f ALARA. FINDINGS: No acute intracranial hemorrhage, midline shift or mass effect is present. Ventricular syst em is unremarkable. There are multiple periventricular hypodense foci, including a 2 cm focus within the left frontal lobe on axial image 19 of 20. Basal cisterns are patent. There are no extra axial co llections. There is moderate atrophy. No acute calvarial fractures are identified. Visualized portion s of the sinuses and mastoid air cells are clear. IMPRESSION: 1. No acute intracranial hemorrhage. No evidence for acute territorial infarct. 2. Multiple periventricular hypodense foci, the largest of which is a 2 cm left frontal lobe focus. T hese may reflect small vessel disease. However, age indeterminate infarcts, likely subacute to chroni c, could appear similar. ACT 112: Negative or not required by law. Electronically signed by: Brent Estrada M.D. 01/31/2023 4:11 PM
[2023-01-31] MEDS: DAPTOmycin 700 MG in SYRINGE 0 ML IV SCH (17:17)
--- NOTE | 2023-01-31 19:52 | Communication Note ---
Date of Service: January 31, 2023 Notified by RN of patient inability to swallow oral medications safely. IV heparin while Eliquis on hold.
[2023-01-31] MEDS: Heparin IV Adult Wt-Based Standard *NO* Bolus Protocol IV SCH ×4 (21:06→21:40)
[2023-01-31] MEDS: HEPARIN SODIUM/DEXTROSE 25,000 UNITS/500 ML BAG IV SCH (21:06)
[2023-01-31] MEDS: STOP CLINOLIPID SCH (21:10)
[2023-01-31 21:34] LABS: BUN Creatinine Ratio 34.5 (10-20); Calcium 8.4 mg/dl (8.6-10.3); Creatinine Clr Calc Pharmacy 38.8 ml/min; Est GFR (African American) 42.4 ml/min; Est GFR (Non-African American) 36.5 ml/min
[2023-01-31 21:54] LABS: Partial Thromboplastin Ratio 0.9; Partial Thromboplastin Time 25.9 Seconds (21.0-31.0)
[2023-01-31] MEDS: ERTAPENEM SODIUM 1,000 MG in SYRINGE 0 ML IV SCH (23:30)
[2023-02-01 03:54] LABS: Hematocrit (blood only) 24.6 % (37.0-47.0); Hemoglobin 7.9 g/dl (12.0-16.0); Mean Corpuscular Hemoglobin 28.8 pg (25.0-34.0); Mean Corpuscular Hgb Conc 32.1 g/dL (32.0-36.0); Mean Corpuscular Volume 89.8 fL (80.0-100.0); Mean Platelet Volume 9.6 fL (9.4-12.4); Platelet Count 348 K/uL (130-400); Red Blood Count 2.74 M/uL (4.20-5.40); White Blood Count 18.45 K/ul (4.8-10.8)
[2023-02-01 04:07] LABS: BUN Creatinine Ratio 31.7 (10-20); Calcium 8.1 mg/dl (8.6-10.3); Est GFR (African American) 41.3 ml/min; Est GFR (Non-African American) 35.6 ml/min; Magnesium 1.9 mg/dl (1.7-2.4); Potassium 3.6 mmol/L (3.5-5.1)
[2023-02-01 04:24] LABS: Partial Thromboplastin Ratio 1.2; Partial Thromboplastin Time 34.4 Seconds (21.0-31.0)
[2023-02-01] MEDS ORDERED: HEPARIN SOD (PORCINE) 1000 UNIT/ML IV ONE (05:05)
--- NOTE | 2023-02-01 05:56 | Surgery Progress Note ---
Date of Service February 01, 2023 Assessment & Plan (1) Pancreatitis: Plan: Significant recent cardiopulmonary comorbidity Appears to be doing somewhat better Fluid overload with diuresis ongoing, history of acute renal failure Abdominal drain with approximately 15 cc over last shift-we will discuss possible bedside ultrasound to assess drain collection May consider removing the drain-some concern for infection of left indwelling for long period Apparently there is discussion of a gastrostomy feeding tube-there is no plan to perform any open operation in this hospital This would need to be performed via endoscopy/PEG tube-this may have need to be performed at a tertiary care center Admission and Anticipated Discharge Date Admission Date: January 15, 2023 Results & Data Vital Signs (Past 12 Hours) Vital Signs Temp Pulse Resp BP Pulse Ox O2 Del Method O2 Flow Rate 02/01/23 03:00 36.5 C 96 H 20 161/89 H 95 Nasal Cannula 01/31/23 21:00 Oxymask 1.5 01/31/23 23:03 36.8 C 103 H 31 H 141/72 H 93 Oxymask 2 01/31/23 18:59 36.6 C 101 H 20 151/93 H 91 Oxymask PG Care Time/CCT Total # of Minutes Spent Total Time Spent with Patient: Total time spent is greater than 50% in coordination of care (as documented) at patient's floor/unit and/or counseling patient: Coding Level of Care Code None Diagnoses Pancreatitis K85.90
[2023-02-01] MEDS ORDERED: ACETAMINOPHEN 1,000 MG/100 ML VIAL IV STA (06:03)
[2023-02-01] MEDS: METOPROLOL TARTRATE 1 MG/ML VIAL IV SCH ×3 (06:27→21:00)
[2023-02-01] MEDS ORDERED: Nursing to Pharmacy Communication SCH (07:45)
--- NOTE | 2023-02-01 08:32 | Pulmonology Progress Note ---
Date of Service February 01, 2023 Assessment & Plan (1) Acute respiratory failure with hypoxia: (2) Pleural effusion, left: (3) Pneumonia: (4) Afib: Plan Chest x-ray 01/30/2023 personally reviewed: Poor inspiratory effort, alveolar opacities appreciated especially in the left side, blunted left costophrenic angle Increased cardiac silhouette There has been progressive worsening in the infiltrate compared to 01/15/2023 and especially 12/26/2022 2D echo 12/10/2022: EF 65-70%, grade 1 diastolic dysfunction, RV normal in size and function ABG 01/30/2023: 7.59/26/59 on 2 L -- Acute hypoxic respiratory failure Multifactorial A-fib with RVR Possible aspiration BNP 763 Procalcitonin 0.79 Patient's ABG has been persistently alkalotic. -- Left-sided pleural effusion with dependent left lower lobe atelectasis Likely coming from ascites No plan for any intervention right now --A-fib On apixaban Plan: In/out: -2.6 L, +17 L since coming to the hospital Continue aggressive diuresis to get the patient negative balance Repeat chest x-ray tomorrow Patient's oxygen requirement has gone down Continue with antibiotics which will cover for aspiration pneumonia BiPAP nightly and as needed shortness of breath Given the worsening mental status and generalized lethargy I think a Kendy infection should also be thought off because she is at high risk given the recurrent abdominal infection Infectious disease on board, will defer to them Case was discussed with RN at bedside as well as Dr. Lopez Please note the above document was generated using voice recognition software. It may contain grammatical, syntax or spelling errors.Any formal questions or concerns about the content, text or information contained within the body of this dictation should be directly addressed to the provider for clarification. Admission and Anticipated Discharge Date Admission Date: January 15, 2023 Subjective Patient seen and examined at bedside. No acute distress, no adverse events overnight Patient was saturating 94-95% on 1 L. Patient's partner as well as sisters were at bedside Patient was awake alert answering question appropriately but slow to response today Denied any chest pain, no headache, no nausea, no vomiting No abdominal pain Positive bowel movement Review of Systems Review of Systems: All systems reviewed & are unremarkable except as noted in Subjective Physical Exam Physical Exam: Constitutional: No acute distress HEENT: EOMI, PERRLA Respiratory system: Decreased air entry bilaterally, no wheeze, no rhonchi, positive crackles bilaterally more on the left side CVS: S1-S2 positive, no murmurs or gallops, irregular Abdomen: Soft, nontender, nondistended, positive bowel sounds x4 Extremities: +2 pulses bilaterally radialis/ dorsalis pedis, no cyanosis, +1 pitting edema bilateral lower extremity Neuro: Awake alert oriented to self and place Psych: Flat mood and affect G/U: Positive [place] Skin: no rashes, warm and dry Lymphatic: no cervical or axillary lymphadenopathy Results & Data Results & Data Vital Signs (Past 12 Hours) Vital Signs Temp Pulse Pulse Resp BP BP Pulse Ox 02/01/23 07:08 96 H 20 157/88 H 97 02/01/23 07:04 88 26 H 98 02/01/23 06:27 103 H 141/81 H 02/01/23 06:13 96 H 02/01/23 03:00 36.5 C 96 H 20 161/89 H 95 01/31/23 21:00 01/31/23 23:03 36.8 C 103 H 31 H 141/72 H 93 O2 Del Method O2 Flow Rate FiO2 02/01/23 07:08 BiPAP 02/01/23 07:04 35 02/01/23 06:27 02/01/23 06:13 02/01/23 03:00 Nasal Cannula 01/31/23 21:00 Oxymask 1.5 01/31/23 23:03 Oxymask 2 Laboratory Results 02/01/23 03:23 02/01/23 03:23 PG Care Time/CCT Total # of Minutes Spent Total Time Spent with Patient: Total time spent is greater than 50% in coordination of care (as documented) at patient's floor/unit and/or counseling patient: Coding Level of Care Code 52924 SUB INP/OBS CARE 3/50MIN Diagnoses Acute respiratory failure with hypoxia J96.01 Pleural effusion, left J90 Pneumonia J18.9 Afib I48.91
--- NOTE | 2023-02-01 08:39 | Nephrology Progress Note ---
Date of Service February 01, 2023 Assessment & Plan (1) Acute renal failure: Plan: nonoliguric ischemic ATN, stage 2, improving/stable w/ volume overload, acute respiratory failure; ABG w/ hypoxia and combined metabolic/respiratory alkalosis before bipap Her baseline creatinine as recently as the middle of November 2022 was actually 0.9. During mid November to mid December extended admission for cholangitis and pancreatitis with complications, she had acute renal failure requiring several treatments of intermittent hemodialysis, with last treatment January 01. Her renal function recovered sufficiently to stop hemodialysis. Her discharge creatinine was 1.8 on January 12. Her presenting creatinine this admission on January 15 was 2; she hovered in this range until 01/29, w/ slow downtrend to mid ones has pulmonary edema and pleural effusion >> need to offload volume >> continue lasix 30 mg qid and had K this am so will for now continue 20 mEq PO bid K and give 80 mEq IV K (8 x 10 mEq over 8 hrs) >>may need central access if truly unable to swallow pills >recheck BMP ordered for 1600 > impvorivng w/ acceptable K Continue to monitor renal function with daily BMP Admission and Anticipated Discharge Date Admission Date: January 15, 2023 Subjective failed swallow eval yesterday; consideration of removal of abdominal drain and/or gastrostomy tube placement underway but ultimately got NGT/ started TF; also on heparin gtt and onRA by late in day; no c/o pain Review of Systems Review of Systems: All systems reviewed & are unremarkable except as noted in Subjective Physical Exam Constitutional: well developed, well nourished, + frail appearing and cooperative; no acute distress Eyes: EOM intact bilaterally ENMT: Ears: no external ear abnormality Nose: no external nose abnormality Mouth: + dry oral mucous membranes Neck: no nuchal rigidity Respiratory: normal respiratory effort (on bipap) Auscultation: + diminished lung sounds and + crackles (fine posterior fernandez) Cardiovascular: Rate/Rhythm: regular rate and regular rhythm Extremities: + edema (much diminished) Gastrointestinal (Abdomen): Inspection/Auscultation: normal bowel sounds, + abdominal surgical drain present and + high-pitched sounds Percussion/Palpation: abdomen soft; abdomen nontender Musculoskeletal: Extremities: strength 5/5 throughout and + abnormal strength (can't hold arms up) Skin: no rashes, warm and dry Psychiatric: Orientation: alert and oriented x 3 Results & Data Vital Signs (Past 12 Hours) Vital Signs Temp Pulse Pulse Resp BP BP Pulse Ox 02/01/23 07:08 96 H 20 157/88 H 97 02/01/23 07:04 88 26 H 98 02/01/23 06:27 103 H 141/81 H 02/01/23 06:13 96 H 02/01/23 03:00 36.5 C 96 H 20 161/89 H 95 01/31/23 21:00 01/31/23 23:03 36.8 C 103 H 31 H 141/72 H 93 O2 Del Method O2 Flow Rate FiO2 02/01/23 07:08 BiPAP 02/01/23 07:04 35 02/01/23 06:27 02/01/23 06:13 02/01/23 03:00 Nasal Cannula 01/31/23 21:00 Oxymask 1.5 01/31/23 23:03 Oxymask 2 Laboratory Results 02/01/23 03:23 02/01/23 03:23
[2023-02-01] MEDS: methIMAzole 5 MG TABLET PO SCH (08:56)
[2023-02-01] MEDS: SERTRALINE HCL 50 MG TABLET PO SCH (08:56)
[2023-02-01] MEDS: FUROSEMIDE 40 MG/4 ML VIAL IV SCH ×4 (08:56→21:00)
[2023-02-01] MEDS: MAGNESIUM OXIDE 400 MG TAB PO SCH (08:56)
[2023-02-01] MEDS: INSULIN ASPART PER UNIT CHARGE SC SCH ×5 (09:19→23:55)
--- NOTE | 2023-02-01 09:59 | Surgery Progress Note ---
Date of Service February 01, 2023 Assessment & Plan (1) Pancreatitis: Plan: See prior note from today on this patient I discussed the drain situation with our IR team-we will have the bag changed and continue drainage until it is approximately 10 cc or less per day Admission and Anticipated Discharge Date Admission Date: January 15, 2023 Results & Data Vital Signs (Past 12 Hours) Vital Signs Temp Pulse Pulse Resp BP BP Pulse Ox 02/01/23 08:00 02/01/23 07:00 96 H 02/01/23 07:08 96 H 20 157/88 H 97 02/01/23 07:04 88 26 H 98 02/01/23 06:27 103 H 141/81 H 02/01/23 06:13 96 H 02/01/23 03:00 36.5 C 96 H 20 161/89 H 95 01/31/23 23:03 36.8 C 103 H 31 H 141/72 H 93 O2 Del Method O2 Flow Rate FiO2 02/01/23 08:00 Room Air 02/01/23 07:00 02/01/23 07:08 BiPAP 02/01/23 07:04 35 02/01/23 06:27 02/01/23 06:13 02/01/23 03:00 Nasal Cannula 01/31/23 23:03 Oxymask 2 PG Care Time/CCT Total # of Minutes Spent Total Time Spent with Patient: Total time spent is greater than 50% in coordination of care (as documented) at patient's floor/unit and/or counseling patient: Coding Level of Care Code None Diagnoses Pancreatitis K85.90
--- NOTE | 2023-02-01 10:07 | Cardiology Progress Note ---
Date of Service February 01, 2023 Assessment & Plan (1) Sinus bradycardia: (2) Paroxysmal atrial fibrillation: (3) Post-menopausal bleeding: (4) Sepsis: (5) Acute respiratory failure with hypoxia: Plan - Patient with extended hospitalization s/p lap [place] for cholecystitis, acute pancreatitis, bile leak with drain, severe sepsis, SAMMY with prior dialysis, post menopausal bleeding, worsening anemia requiring blood transfusion, PAF, sinus bradycardia, and now aspiration pneumonia, and evidence of possible subacute infarct on head CT? -Yesterday patient had developed worsening respiratory status with aspiration pneumonia -failed her swallow study -now nothing by mouth tolerated. -Continue IV heparin in place of Eliquis -Continue IV furosemide with assistance of nephrology - renal function stable. -Continue broad spectrum antibiotics for pneumonia. -Earlier this admission, she had PAF and bradycardia -Amiodarone used for afib along with metoprolol. -Currently she is in NSR/Sinus tach with HR 90-110 bpm. -Continue IV metoprolol in place of PO metoprolol. Could increase frequency of dose to 2.5 mg q 4 or 6 hours if needed. Could also resume IV amiodarone if she has recurrent afib RVR. -IV heparin for anticoagulation -monitor Hbg. -Agree with palliative care discussion. Patient with extensive hospitalizations and no significant improvement. Case discussed with Dr. Cerna I spent a total of 35 minutes on the date of service in preparation, delivery, and documentation of the care provided to this patient, excluding any time spent in the performance of separately billed services. Cheryle Sanchez PA-C Department of Cardiology, [facility] This chart was completed in part utilizing Speech Voice Recognition Software. Grammatical errors, random word insertions, prounoun errors, and incomplete sentences are an occasional consequence of this system due to software limitations, ambient noise, and hardware issues. Any formal questions or concerns about the content, text, or information contained within the body of this dictation should be directly addressed to the provider for clarification. Admission and Anticipated Discharge Date Admission Date: January 15, 2023 Supervising Physician Co-Signing Physician Notes Supervising Physician Attestation: I have personally performed a history and physical examination on the patient. I agree with the physician legal administrative assistant's findings and plan as documented with the following additions. Subjective: Patient comfortable. Nasogastric tube in place. Not conversant on exam. Multiple family members in the room. Telemetry reveals sinus rhythm and sinus tachycardia ranging from 90 to 110 bpm. Exam: General appearance: Ill in appearance, cognitive status still depressed Cardiovascular: Regular rhythm, no murmurs, no edema Assessment and Plan: -As noted above. Oral amiodarone on hold with lack of being able to take oral medications at present. -Continue IV metoprolol 2.5 mg IV every 8 hours with caution given noted transient bradycardia few days ago. -Unfractioned heparin for stroke prophylaxis while unable to take Eliquis I spent a total of 35 minutes on the date of service in preparation, delivery, and documentation of the care provided to this patient, excluding any time spent in the performance of separately billed services. Tomi Cerna, DO Subjective Patient awake. Reports ongoing SOB. No chest pain. Feels weak. Family at bedside. Currently NSR with occ PAC's. Not taking anything by mouth. Eliquis changed to IV heparin. Metoprolol PO changed to IV. Oral Amiodarone stopped. Review of Systems Review of Systems: All systems reviewed & are unremarkable except as noted in HPI & below and Other Physical Exam Constitutional: WD/WN, vitals as above + ill appearing and + lethargic Respiratory: normal respiratory effort Auscultation: + diminished lung sounds; no crackles and no rales Cardiovascular: Rate/Rhythm: regular rate and regular rhythm Heart Sounds: no murmur Extremities: + edema (trace pretibial and pedal edema) Gastrointestinal (Abdomen): normal bowel sounds, soft, nontender, no hepatosplenomegaly Results & Data Vital Signs (Past 12 Hours) Vital Signs Temp Pulse Pulse Resp BP BP Pulse Ox 02/01/23 08:00 02/01/23 07:00 96 H 02/01/23 07:08 96 H 20 157/88 H 97 02/01/23 07:04 88 26 H 98 02/01/23 06:27 103 H 141/81 H 02/01/23 06:13 96 H 02/01/23 03:00 36.5 C 96 H 20 161/89 H 95 01/31/23 23:03 36.8 C 103 H 31 H 141/72 H 93 O2 Del Method O2 Flow Rate FiO2 02/01/23 08:00 Room Air 02/01/23 07:00 05/04/23 07:08 BiPAP 02/01/23 07:04 35 02/01/23 06:27 02/01/23 06:13 02/01/23 03:00 Nasal Cannula 01/31/23 23:03 Oxymask 2 Laboratory Results Cardiac Enzymes 01/31/23 Range/Units 11:11 B-Natriuretic Peptide 763 H (0-100) pg/ml Coagulation 01/31/23 01/31/23 02/01/23 Range/Units 11:11 20:17 03:23 APTT 25.9 34.4 H (21.0-31.0) Seconds B-Natriuretic Peptide 763 H (0-100) pg/ml CBC 02/01/23 Range/Units 03:23 WBC 18.45 H (4.8-10.8) K/ul RBC 2.74 L (4.20-5.40) M/uL Hgb 7.9 L (12.0-16.0) g/dl Hct 24.6 L (37.0-47.0) % Plt Count 348 (130-400) K/uL Comprehensive Metabolic Panel 01/31/23 02/01/23 Range/Units 20:17 03:23 Sodium 145 146 H (136-145) mmol/L Potassium 4.0 3.6 (3.5-5.1) mmol/L Chloride 106 105 (98-107) mmol/L Carbon Dioxide 25 25 (21-32) mmol/L BUN 49 H 46 H (6-23) mg/dl Creatinine 1.42 H 1.45 H (0.6-1.2) mg/dl Glucose 112 H 148 H (70-99(Fasting)) mg/dl Calcium 8.4 L 8.1 L (8.6-10.3) mg/dl Intake and Output 01/31/23 02/01/23 02/01/23 22:59 06:59 14:59 Intake Total 375 / 837.917 296.25 / 837.917 0 / 0 Output Total 1100 / 3515 1215 / 3515 Balance -725 / -2677.083 -918.75 / -2677.083 0 / 0 Intake: IV 375 / 837.917 296.25 / 837.917 0 / 0 Aa 4.25%/D5w 2L 1,795.16 ml In 0 / 0 Custom Peripheral TPN bag 0 ml @ 74.798 mls/hr IV .Q24H [facility] Rx #:[id number] Acetaminophen 1,000 mg In 100 100 / 100 ml @ 400 mls/hr IV NOW STA Rx#: [id number] Heparin Sodium/Dextrose 25,000 196.25 / 196.25 units In 500 ml @ 1,400 UNITS/ HR 28 mls/hr IV .[id number] [facility] Rx #:[id number] Potassium Chloride / Wtr 10 meq 375 / 541.667 In 100 ml @ 100 mls/hr IV Q1H [facility] Rx#:[id number] Output: Urine 250 / 250 Urine Amount (Catheter) 1000 / 3150 950 / 3150 External 1000 / 3150 950 / 3150 Drain Output 100 / 115 15 / 115 Left Abdomen 100 / 115 15 / 115 Other: Other Intake Source NPO Weight 83.3 kg 83 kg Weight Measurement Method Built in [facility] Built in [facility] Patient Weight 02/02/23 06:59 Weight 83 kg Diagnostic Findings Telemetry reviewed: Normal sinus rhythm with heart rates ranging 90s to 110. Short bursts of atrial tach. Frequent PACs. No sustained episodes of A-fib RVR. Medications Administered Current Inpatient Medications Acetaminophen (Acetaminophen 325 Mg Tab) 650 mg PO Q6 PRN PRN Reason: Fever Or MILD Pain Stop: 02/14/23 23:34 Last Admin: 01/28/23 21:16 Dose: 650 mg Amiodarone HCl (Amiodarone 200 Mg Tab) 200 mg PO QAM [facility] Stop: 03/02/23 08:59 Last Admin: 01/31/23 08:12 Dose: 200 mg Apixaban (Apixaban 5 Mg Tablet) 5 mg PO BID [facility] Stop: 02/15/23 08:59 Last Admin: 01/31/23 08:12 Dose: 5 mg Dextrose (Dextrose 50% 50 Ml Syringe) 25 - 50 ml IV UD PRN; Protocol PRN Reason: Hypoglycemia Protocol Stop: 02/15/23 08:04 Furosemide (Furosemide 40 Mg/4 Ml Vial) 30 mg IV QID [facility] Stop: 03/02/23 12:59 Last Admin: 02/01/23 08:56 Dose: 30 mg Glucagon (Glucagon For Inj 1 Mg Vial) 1 mg SQ UD PRN; Protocol PRN Reason: Hypoglycemia Protocol Stop: 02/15/23 08:04 Glucose (Glucose 40% Gel 15 Gm Tube) 15 - 30 gm PO UD PRN; Protocol PRN Reason: Hypoglycemia Protocol Stop: 02/15/23 08:04 Glucose (Glucose 10 Tab/Tube) 4 - 8 tab PO UD PRN; Protocol PRN Reason: Hypoglycemia Treatment Stop: 02/15/23 08:04 Amino Acids 1,795.16 ml/ (Nutrition (Parenteral)) 1,795.16 mls @ 74.798 mls/hr IV .Q24H [facility]; Protocol Last Infusion: 02/01/23 09:20 Dose: Infused Daptomycin 700 mg/ Syringe 14 mls @ 4.25 mls/min IV Q24H [facility]; Protocol Stop: 02/04/23 15:59 Last Admin: 01/31/23 17:17 Dose: 4.25 mls/min Ertapenem 1,000 mg/ Syringe 10 mls @ 2 mls/min IV Q24H [facility] Stop: 02/06/23 22:59 Last Admin: 01/31/23 23:30 Dose: 2 mls/min Heparin Sodium/Dextrose (Heparin Sodium/Dextrose) 25,000 units in 500 mls @ 28 mls/hr IV .[id number] [facility]; Protocol Stop: 03/02/23 20:14 Last Titration: 02/01/23 04:57 Dose: 1,400 units/hr, 28 mls/hr Acetaminophen (Ofirmev) 1,000 mg in 100 mls @ 400 mls/hr IV Q8H PRN PRN Reason: fever/pain Stop: 02/04/23 06:02 Potassium Chloride (K [place] / Wtr) 10 meq in 100 mls @ 100 mls/hr IV Q1H [facility] Stop: 02/01/23 17:59 Insulin Aspart (Insulin Aspart Per Unit Charge) 0 units SC Q6 [facility] Stop: 03/01/23 16:29 Last Admin: 02/01/23 09:19 Dose: Not Given Magnesium Oxide (Magnesium Oxide 400 Mg Tab) 400 mg PO QAM [facility] Stop: 02/15/23 08:59 Last Admin: 02/01/23 08:56 Dose: Not Given Methimazole (Methimazole 5 Mg Tablet) 5 mg PO DAILY [facility] Stop: 02/15/23 08:59 Last Admin: 02/01/23 08:56 Dose: Not Given Metoprolol Tartrate (Metoprolol Tartrate 1 Mg/Ml Vial) 2.5 mg IV Q8 [facility] Stop: 03/02/23 13:59 Last Admin: 02/01/23 06:27 Dose: 2.5 mg Miscellaneous (Carbohydrates For Hypoglycemia ) 15 - 30 gm PO UD PRN PRN Reason: Hypoglycemia Protocol Stop: 02/15/23 08:04 Miscellaneous (Stop Clinolipid) 1 each N/A DAILY@2200 [facility] Stop: 02/27/23 21:59 Last Admin: 01/31/23 21:10 Dose: Not Given Miscellaneous Information (Tpn/Ppn Consult Pharmacy) 1 each N/A UD PRN PRN Reason: Consult Stop: 02/25/23 08:39 Potassium Chloride (Potassium Chloride Crtab 20 Meq Tabcr) 20 meq PO BID [facility] Stop: 03/01/23 08:59 Last Admin: 01/31/23 08:12 Dose: 20 meq Sertraline HCl (Sertraline Hcl 50 Mg Tablet) 50 mg PO QAM [facility] Stop: 02/15/23 08:59 Last Admin: 02/01/23 08:56 Dose: Not Given (4) Sepsis Sepsis acute organ dysfunction status: unspecified Sepsis type: sepsis due to unspecified organism Qualified Code(s): A41.9 - Sepsis, unspecified organism
[2023-02-01] MEDS: POTASSIUM CHLORIDE / WTR 10 MEQ/100 ML PLCT IV SCH ×8 (11:00→19:01)
--- NOTE | 2023-02-01 11:57 | XRay Report ---
KUB HISTORY: Feeding tube placement check COMPARISON: Abdominal CT 01/26/2023. FINDINGS: The tip of the feeding tube terminates at the gastric antrum/pylorus. Common bile duct sten ts are noted. There is a percutaneous catheter seen within the right upper quadrant. Pneumobilia is n oted. No renal calculi. No ureteral calculi. No pneumoperitoneum or pneumatosis. IMPRESSION: The feeding tube terminates at the gastric antrum/pylorus. ACT 112: Negative or not required by law. Electronically signed by: Dannie Chowdhury M.D. 02/01/2023 11:55 AM
--- NOTE | 2023-02-01 12:27 | Palliative Care Consultation ---
Date of Consultation February 01, 2023 Assessment & Plan (1) Palliative care encounter: I spoke with Blossom at bedside. Her daughter, Stacey, significant other, Horacio, sister and brother in law were present for visit. Blossom tells me that she has never really considered what she would want for her care if she were seriously ill. She had been able to ambulate independently with a walker prior to her illness and was independent with some ADLs. She does respond to questions appropriately but it is not clear that she has full insight into her current illness. We talked about what has sustained her through her serious, prolonged illness. She told me that it was her family. Her face lights up when she sees a picture of her great granddaughter at bedside. Her family tells me that Blossom would want whatever care necessary to "help her heal". We talked about what that meant to them. They feel that being at home is her primary goal. She confirms this. I asked her if there were any limits to what she would be willing to go through with her care and she told me that there were no limits. We discussed her significant debility with prolonged illness and concern that she may not be able to reach her goal of returning home. I asked her if that changed how she felt about limits and she told me that it did not. She and her family are agreeable to further visits with palliative care to continue discussion and reassess goals of care. History of Present Illness Reason for Consultation: goals of care Requesting Physician: Dr. Lopez Attending Physician: Leandro Lopez MD History of Present Illness 72 yo lady with history of multiple sclerosis who had prolonged hospital stay in November and December for sepsis and gallstone pancreatinitis. She had ERCP with stent placement and laparoscopic cholecystectomy. She had SAMMY during that stay, requiring temporary dialysis and has had paroxysmal afib as well. She was discharged to SNF for rehab and readmitted several days later with sepsis and pancreatitis. She was found to have bile leak and has abdominal drain in place. She has had acute hypoxic respiratory failure with possible aspiration and volume overload. She has also had vaginal bleeding with anemia and hemoglobin of 6.7 on 01/29. She did receive a transfusion. Her mental status has been variable. Today, she is alert and oriented to person and place. She is able to answer some questions and denies pain or dyspnea at this time. She had been on bipap earlier this morning but is currently on room air. Allergies Allergy/AdvReac Type Severity Reaction Status Date / Time No Known Allergies Allergy Unverified 01/15/23 17:50 Home Medications Medication Instructions Recorded Confirmed Type apixaban 5 mg tablet (Eliquis) 5 mg PO BID #60 tabs 01/12/23 01/15/23 Rx levofloxacin 750 mg tablet 750 mg PO Q48H #3 tabs 01/12/23 01/15/23 Rx methimazole 5 mg tablet 5 mg PO DAILY #30 tabs 01/12/23 01/15/23 Rx acetaminophen 325 mg tablet 650 mg PO Q6 PRN Fever Or Pain 01/15/23 01/15/23 History amiodarone 200 mg tablet 200 mg PO QAM 01/15/23 01/15/23 History diclofenac sodium 1 % topical gel 2 g topical QID 01/15/23 01/15/23 History magnesium oxide 400 mg (241.3 mg 400 mg PO QAM 01/15/23 01/15/23 History magnesium) tablet menthol 0.44 %-zinc oxide 20.6 % 1 applic topical TID 01/15/23 01/15/23 History topical ointment (Calmoseptine) metoprolol succinate 50 mg 50 mg PO AMHS 01/15/23 01/15/23 History tablet,extended release 24 hr oxycodone 5 mg tablet 5 mg PO Q6 PRN pain,moderate 01/15/23 01/15/23 History oxycodone 5 mg tablet 10 mg PO Q6 PRN pain,severe 01/15/23 01/15/23 History sennosides 8.6 mg-docusate sodium 1 tab PO AMHS 01/15/23 01/15/23 History 50 mg tablet (Senokot-S) sertraline 50 mg tablet 50 mg PO QAM 01/15/23 01/15/23 History Patient History Medical History Acute renal failure Required several dialysis treatments during mid November to mid December 2022 admission Ambulatory dysfunction d/t MS Bile leak from gallbladder bed Cholangitis Depression History of claustrophobia Hypertension Hyperthyroidism Multiple sclerosis Pancreatitis Surgical History Hx laparoscopic cholecystectomy (12/10/22) Laparoscopic cholecystectomy with extensive lysis of adhesions, please add modifier for extensive difficulty and increased length of the procedure. Social History Smoking Status: Former smoker Smoking End Date: 1989; Second Hand Exposure: No; Do You Dip or Chew Tobacco: No; Tobacco Cessation Education Requested by Patient: No Hx Alcohol Use: No Hx Substance Use: No Preferred Language: Irish Communication Ability: Effective Visual Impairment: No Limitations Milk Deliverer Required: No Beliefs That Will Affect Care: None marital status: Single Current Living Situation: Half-Way current occupational status: retired Other Information That Helps Us Care for You: No Feels Safe at Home: Yes Safety Concerns: Feels Safe At This Time Assistive Devices: Walker Review of Systems Review of Systems: ESAS Pain 0/3 Dyspnea 0/3 Nausea 0/3 Drowsiness 0/3 Physical Exam Constitutional: + ill appearing ENMT: Mouth: + dry oral mucous membranes Respiratory: normal respiratory effort; no labored breathing Cardiovascular: Rate/Rhythm: regular rate and regular rhythm Neurologic: moves all extremities and awake Results & Data Vital Signs (Past 12 Hours) Vital Signs Temp Pulse Pulse Resp BP BP Pulse Ox 02/01/23 11:51 98.2 F 99 H 18 150/94 H 94 02/01/23 11:00 98.2 F 02/01/23 08:00 02/01/23 07:00 96 H 02/01/23 07:08 96 H 20 157/88 H 97 02/01/23 07:04 88 26 H 98 02/01/23 06:27 103 H 141/81 H 02/01/23 06:13 96 H 02/01/23 03:00 97.7 F 96 H 20 161/89 H 95 O2 Del Method FiO2 02/01/23 11:51 Room Air 02/01/23 11:00 02/01/23 08:00 Room Air 02/01/23 07:00 02/01/23 07:08 BiPAP 02/01/23 07:04 35 02/01/23 06:27 02/01/23 06:13 02/01/23 03:00 Nasal Cannula PG Care Time/CCT Total # of Minutes Spent Total Time Spent: 60 Total Time Spent with Patient: Total time spent is greater than 50% in coordination of care (as documented) at patient's floor/unit and/or counseling patient: [id number] goals of care, role of palliative care Coding Level of Care Code 23187 INT INP/OBS CARE Diagnoses Palliative care encounter Z51.5
[2023-02-01] MEDS ORDERED: PEPTAMEN 1.5 CAL 1,000 ML BAG GT SCH (12:45)
[2023-02-01 12:47] LABS: Partial Thromboplastin Ratio 1.8
[2023-02-01 12:49] LABS: Partial Thromboplastin Time 49.5 Seconds (21.0-31.0)
[2023-02-01] MEDS: TUBE FEEDING WATER FLUSH GT SCH ×3 (13:21→21:05)
[2023-02-01] MEDS: DAPTOmycin 700 MG in SYRINGE 0 ML IV SCH (14:58)
[2023-02-01] MEDS: HEPARIN SODIUM/DEXTROSE 25,000 UNITS/500 ML BAG IV SCH (14:59)
[2023-02-01 16:52] LABS: Anion Gap 12 (3-11); BUN Creatinine Ratio 33.1 (10-20); Blood Urea Nitrogen 44 mg/dl (6-23); Calcium 8.5 mg/dl (8.6-10.3); Carbon Dioxide 25 mmol/L (21-32); Chloride 107 mmol/L (98-107); Creatinine Clr Calc Pharmacy 39.3 ml/min; Est GFR (African American) 45.8 ml/min; Est GFR (Non-African American) 39.6 ml/min; Glucose 159 mg/dl (70-99(Fasting)); Sodium 144 mmol/L (136-145)
--- NOTE | 2023-02-01 16:58 | Hospitalist Progress Note ---
Date of Service February 01, 2023 Assessment & Plan (1) Septic shock: Plan: Patient was recently hospitalized for about a month during which she was managed for acute pancreatitis, acute cholangitis, septic shock, acute renal failure requiring dialysis briefly, paroxysmal A-fib. Underwent ERCP on 12/10 with removal of stones from the bile duct. Underwent lap adele with extensive lysis of adhesions on 12/10 by general surgery.Was discharged to long term facility and represented with abdominal and back pain. Septic Shock Was on Levophed which was weaned off on 01/17. Sources of sepsis: include intra-abdominal infection, surgical subhepatic drain in situ, recent UTI. Acute on chronic pancreatitis Intra-abdominal fluid collection-biliary leak, necrotic pancreatitis Perisplenic Hemorrhage --CT ABD: Redemonstration of the severe pancreatitis. This is similar to the prior study. Postoperative changes consistent with a recent cholecystectomy with a small amount of nonspecific perihepatic fluid and a small amount of pneumoperitoneum remaining. A right subhepatic percutaneous drainage catheter remains unchanged in position. The common bile duct stent appears in good position. There is associated pneumobilia. Small bilateral pleural effusions persist. No change in the patchy groundglass airspace opacities within the lungs. This may represent an atypical/viral pneumonitis. Fluid-filled nondilated loops of large and small bowel which may represent a gastroenteritis/diarrheal illness. Bilateral nephrolithiasis. No ureteral stones. No hydronephrosis. --Repeat CT:Findings consistent with severe acute pancreatitis. 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 Perisplenic hemorrhage, stable to slightly increased since prior CT. The perisplenic fluid collection has increased in size since prior CT. Irregularity of the spleen consistent with splenic injury. Increase in size of perihepatic and perigastric fluid collections with mass effect upon the stomach. The perihepatic fluid collection could be related to a bile leak or acute pancreatitis. Increase in gas within the cholecystectomy bed. This is nonspecific given indwelling surgical drain and common bile duct stent however a persistent biliary leak cannot be excluded. No significant change in a moderate left pleural effusion with left lower lobe atelectasis. Slight increase in small to moderate pelvic ascites. --EUS/ERCP 01/24 w/ evidence of ascites and evidence of persistent leak from remnant gallbladder s/p stent exchange and fibrin glue injection to the cystic duct --S/P ultrasound guided perihepatic fluid aspiration and placement of drain --Abd Fluid Cx: Enterococcus faecium -- Repeat abdominal fluid culture no growth --Blood cultures negative Appreciate ID, surgery, GI, IR input On IV daptomycin, Zosyn>> IV daptomycin and ertapenem Pt did not tolerate Dobhoff feeding placement before IV PPN held due to volume overload status Monitor for bleeding issues Remains critical, palliative care consulted to address goals of care Started on NG tube feeds Continue drain, until its approximately 10 cc or less per day Acute respiratory failure with hypoxia Likely multifactorial secondary to A-fib RVR, Possible aspiration Left-sided pleural effusion/atelectasis --CXR:Multifocal airspace consolidation is unchanged from today's earlier exa mination. This could represent multifocal pneumonia and/or pulmonary edema. Clinical correlation would be required and radiographic follow-up to resolution is recommended. Left pleural effusion. -- Procalcitonin 0.79 Continue antibiotics as above Continue supplemental oxygen as needed Appreciate pulmonary input Aspiration precautions Continue IV diuresis We will repeat chest x-ray tomorrow BiPAP as needed and at bedtime Paroxysmal atrial fibrillation with RVR Intermittent bradycardia On IV heparin for anticoagulation Continue IV metoprolol If recurrent A-fib RVR, will need to resume IV amiodarone Acute metabolic encephalopathy --CT Head:1. No acute intracranial hemorrhage. No evidence for acute territorial infarct. Multiple periventricular hypodense foci, the largest of which is a 2 cm left frontal lobe focus. These may reflect small vessel disease. However, age indeterminate infarcts, likely subacute to chronic, could appear similar. -- Reorient frequently to minimize delirium Monitor Acute blood loss anemia Likely multifactorial: Vaginal Bleeding/perisplenic hemorrhage S/P PRBCs Monitor H&H and transfuse as needed Postmenopausal vaginal bleeding Endometrial thickening --Pelvic USD:Pathologic thickening of the postmenopausal endometrium. Correlation with tissue sampling recommended. Pelvic ascites again noted. Nonvisualization of the ovaries. --Appreciate MANAGER ONCOLOGY Input Needs outpatient D&C Anticoagulation can be restarted per OBGYN As per Prior Provider Facial Rash Likely due to rosacea Improved Hypertension Continue current medications Monitor (2) Hyperthyroidism: Plan: As per prior provider Patient on methimazole which is known to have a side effect of pancreatitis. However, will cont for now as this pancreatitis is improved clinically and there are more likely causes/contributing factors. (3) Pleural effusion, left: (4) Acute renal failure: Plan: Nonoliguric ischemic ATN Volume overload status Intermittent hemodialysis last admission Cr 1.8 on discharge last admission Continue IV Lasix Monitor electrolytes and replace as needed Monitor renal function Appreciate nephrology input (5) Acute pancreatitis: Plan: Bedsores Has bilateral stasis to sacral decubitus Appreciate wound care management Plan Other significant medical conditions Depression Multiple sclerosis Continue home medications as able DVT Px Eliquis initially held due to splenic hemorrhage IV heparin Code Status Full code for now Consulted Pallaitive to address goals of care Admission and Anticipated Discharge Date Admission Date: January 15, 2023 Subjective Patient is seen and examined at bedside More alert, awake today Saturating low 90s on room air Had NG tube placement today Plan to be started on tube feeds Discussed with surgery today Patient denies any chest pain, dyspnea, dizziness, nausea, abdominal pain Discussed with patient's family at bedside Also discussed with cardiology, surgery today Review of Systems Review of Systems: All systems reviewed & are unremarkable except as noted in Subjective Physical Exam Physical Exam: Physical Exam: Vitals signs as noted above General Appearance:Moderately built and nourished, no distress, Ill appearing, Lethargic Head: normocephalic, Atraumatic Eyes: normal inspection, EOMI Neck: supple, Trachea midline Respiratory/Chest: Decreased breath sounds, CTA, No accessory muscle use Cardiovascular: S1, S2, No murmur Abdomen/GI:Soft, Non tender, +Abd Drain, +Surgical dressing, Bowel sounds present Extremities/Musculoskeletal:normal inspection, +generalized edema Neurologic/Psych:Lethargic and drowsy, unable to perform complete Neuro exam Skin: normal color, warm Results & Data Results & Data Vital Signs (Past 12 Hours) Vital Signs Temp Pulse Pulse Resp BP BP Pulse Ox 02/01/23 14:48 36.5 C 98 H 20 159/93 H 92 02/01/23 11:51 36.8 C 99 H 18 150/94 H 94 02/01/23 11:00 36.8 C 02/01/23 08:00 02/01/23 07:00 96 H 02/01/23 07:08 96 H 20 157/88 H 97 02/01/23 07:04 88 26 H 98 02/01/23 06:27 103 H 141/81 H 02/01/23 06:13 96 H O2 Del Method FiO2 02/01/23 14:48 Room Air 02/01/23 11:51 Room Air 02/01/23 11:00 02/01/23 08:00 Room Air 02/01/23 07:00 02/01/23 07:08 BiPAP 02/01/23 07:04 35 02/01/23 06:27 02/01/23 06:13 Laboratory Results Short CBC 02/01/23 Range/Units 03:23 WBC 18.45 H (4.8-10.8) K/ul Hgb 7.9 L (12.0-16.0) g/dl Hct 24.6 L (37.0-47.0) % Plt Count 348 (130-400) K/uL BMP 01/31/23 02/01/23 02/01/23 20:17 03:23 16:22 Sodium 145 146 H 144 Potassium 4.0 3.6 TNP Chloride 106 105 107 Carbon Dioxide 25 25 25 BUN 49 H 46 H 44 H Creatinine 1.42 H 1.45 H 1.33 H Glucose 112 H 148 H 159 H Calcium 8.4 L 8.1 L 8.5 L (5) Acute pancreatitis Acute pancreatitis complication: unspecified Pancreatitis type: unspecified pancreatitis type Qualified Code(s): K85.90 - Acute pancreatitis without necrosis or infection, unspecified
[2023-02-01] MEDS: STOP CLINOLIPID SCH (21:10)
[2023-02-01] MEDS ORDERED: dilTIAZem HCl 5 MG/ML 5 ML VIAL IV STA (23:27)
[2023-02-01] MEDS ORDERED: MAGNESIUM SULFATE / D5W 1 GM/100 ML BAG IV ONE (23:28)
[2023-02-01] MEDS ORDERED: dilTIAZem HCl 5 MG/ML 5 ML VIAL IV ONE (23:33)
[2023-02-01] MEDS: ERTAPENEM SODIUM 1,000 MG in SYRINGE 0 ML IV SCH (23:47)
[2023-02-02] MEDS ORDERED: DIGOXIN 250 MCG in SYRINGE 9 ML IV ONE ×2 (00:45→02:00)
[2023-02-02] MEDS: TUBE FEEDING WATER FLUSH GT SCH ×4 (00:53→13:18)
[2023-02-02] MEDS ORDERED: METOPROLOL TARTRATE 1 MG/ML VIAL IV STA ×2 (01:52→20:23)
[2023-02-02] MEDS ORDERED: STAT IV Infusion **Titration per Protocol STA (03:23)
[2023-02-02] MEDS ORDERED: AMIODARONE IV BOLUS & DRIP IV STA (03:23)
[2023-02-02] MEDS ORDERED: 0.2 MICRON FILTER SET 1 EACH IV STA (03:23)
--- NOTE | 2023-02-02 03:23 | Communication Note ---
Date of Service: February 02, 2023 Rapid A-fib overnight, SBP 100-1 20s No response to multiple doses of Cardizem, Lopressor and digoxin IV amiodarone infusion reinitiated.
[2023-02-02] MEDS ORDERED: AMIODARONE / D5W 150 MG/100 ML BAG IV STA (04:00)
[2023-02-02] MEDS ORDERED: AMIODARONE / D5W 360 MG/200 ML BAG IV ONE (04:15)
[2023-02-02] MEDS: INSULIN ASPART PER UNIT CHARGE SC SCH ×3 (05:45→18:30)
[2023-02-02] MEDS: METOPROLOL TARTRATE 1 MG/ML VIAL IV SCH ×4 (05:49→23:31)
[2023-02-02 07:58] LABS: Hemoglobin 8.9 g/dl (12.0-16.0); Mean Corpuscular Hemoglobin 28.5 pg (25.0-34.0); Mean Corpuscular Hgb Conc 31.8 g/dL (32.0-36.0); Mean Corpuscular Volume 89.7 fL (80.0-100.0); Mean Platelet Volume 9.8 fL (9.4-12.4); Platelet Count 362 K/uL (130-400); RDW Coefficient of Variation 18.4 % (11.5-14.5); RDW Standard Deviation 57.2 fL (36.4-46.3); Red Blood Count 3.12 M/uL (4.20-5.40); White Blood Count 15.79 K/ul (4.8-10.8)
[2023-02-02] MEDS: FUROSEMIDE 40 MG/4 ML VIAL IV SCH ×2 (08:03→17:09)
[2023-02-02] MEDS: SERTRALINE HCL 50 MG TABLET PO SCH (08:03)
[2023-02-02] MEDS: MAGNESIUM OXIDE 400 MG TAB PO SCH (08:04)
[2023-02-02] MEDS: methIMAzole 5 MG TABLET PO SCH (08:04)
[2023-02-02 08:08] LABS: Partial Thromboplastin Ratio 1.2; Partial Thromboplastin Time 34.2 Seconds (21.0-31.0)
[2023-02-02] MEDS: HEPARIN SODIUM/DEXTROSE 25,000 UNITS/500 ML BAG IV SCH (08:12)
--- NOTE | 2023-02-02 08:25 | Pulmonology Progress Note ---
Date of Service February 02, 2023 Assessment & Plan (1) Acute respiratory failure with hypoxia: (2) Pleural effusion, left: (3) Pneumonia: (4) Afib: Plan Chest x-ray 01/30/2023 personally reviewed: Poor inspiratory effort, alveolar opacities appreciated especially in the left side, blunted left costophrenic angle Increased cardiac silhouette There has been progressive worsening in the infiltrate compared to 01/15/2023 and especially 12/26/2022 2D echo 12/10/2022: EF 65-70%, grade 1 diastolic dysfunction, RV normal in size and function ABG 01/30/2023: 7.59/26/59 on 2 L -- Acute hypoxic respiratory failure --> resolved Multifactorial A-fib with RVR with volume overload BNP 763 Procalcitonin 0.79 Patient's ABG has been persistently alkalotic. -- Left-sided pleural effusion with dependent left lower lobe atelectasis Likely coming from ascites No plan for any intervention right now --A-fib On apixaban Plan: In/out: +98 mL, urine output 1601, +16 L since coming to the hospital Chest x-ray from today shows significant improvement compared to the one done 01/30/2023. Continue with diuresis to keep the patient negative balance. Aim for at least a liter keeping an eye on the creatinine and BUN Possibility of aspiration pneumonia is low given the significant improvement in chest x-ray within 2 days BiPAP nightly and as needed shortness of breath goes to be beneficial. With the NG tube going forward, aspiration should always be kept in mind Given the worsening mental status and generalized lethargy I think a Kendy infection should also be thought off because she is at high risk given the recurrent abdominal surgeries/infection and prolonged antibiotics Infectious disease on board, will defer to them No further recommendation from pulmonary perspective, will sign off Please call directly with any questions Case was discussed with RN at bedside, Dr. Lopez as well as patient's family at bedside Please note the above document was generated using voice recognition software. It may contain grammatical, syntax or spelling errors.Any formal questions or concerns about the content, text or information contained within the body of this dictation should be directly addressed to the provider for clarification. Admission and Anticipated Discharge Date Admission Date: January 15, 2023 Subjective Patient seen and examined at bedside. No acute distress, no adverse events overnight Patient looks more alert compared to yesterday Answering all the questions appropriately Denies any chest pain, no shortness of breath Denies any abdominal pain Has been afebrile. Has an NG tube now Review of Systems Review of Systems: All systems reviewed & are unremarkable except as noted in HPI & below Physical Exam Physical Exam: Constitutional: No acute distress HEENT: EOMI, PERRLA Respiratory system: Decreased air entry bilaterally, no wheeze, no rhonchi, mild crackles bilateral lower lobes CVS: S1-S2 positive, no murmurs or gallops, irregular Abdomen: Soft, nontender, nondistended, positive bowel sounds x4 Extremities: +2 pulses bilaterally radialis/ dorsalis pedis, no cyanosis, +1 pitting edema bilateral lower extremity Neuro: Awake alert oriented to self and place Psych: Flat mood and affect G/U: Positive [place] Skin: no rashes, warm and dry Lymphatic: no cervical or axillary lymphadenopathy Results & Data Results & Data Vital Signs (Past 12 Hours) Vital Signs Temp Pulse Pulse Resp BP Pulse Ox O2 Del Method 02/02/23 08:08 36.6 C 85 22 115/73 92 Room Air 02/02/23 07:00 85 02/02/23 05:49 93 H 125/81 02/02/23 05:34 87 113/75 02/02/23 03:46 36.6 C 129 H 23 103/80 98 Room Air 02/02/23 02:18 97 H 02/02/23 02:09 128 H 122/58 L 02/02/23 02:03 141 H 02/02/23 02:02 141 H 107/82 02/02/23 00:51 147 H 02/02/23 00:35 131 H 101/76 02/01/23 23:41 115 H 26 H 112/60 100 Nasal Cannula 02/01/23 23:39 121 H 109/90 02/01/23 23:38 144 H 119/78 02/01/23 23:18 147 H 28 H 137/77 100 Nasal Cannula 02/01/23 22:57 36.5 C 99 H 22 147/69 H 96 Room Air 02/01/23 22:31 Room Air 02/01/23 21:05 36.8 C 87 22 140/82 95 Room Air O2 Flow Rate 02/02/23 08:08 05/05/23 07:00 02/02/23 05:49 02/02/23 05:34 02/02/23 03:46 02/02/23 02:18 02/02/23 02:09 02/02/23 02:03 02/02/23 02:02 02/02/23 00:51 02/02/23 00:35 02/01/23 23:41 2 02/01/23 23:39 02/01/23 23:38 02/01/23 23:18 2 02/01/23 22:57 02/01/23 22:31 02/01/23 21:05 Laboratory Results 02/02/23 07:49 PG Care Time/CCT Total # of Minutes Spent Total Time Spent with Patient: Total time spent is greater than 50% in coordination of care (as documented) at patient's floor/unit and/or counseling patient: Coding Level of Care Code 94250 SUB INP/OBS CARE 2/35MIN Diagnoses Acute respiratory failure with hypoxia J96.01 Pleural effusion, left J90 Pneumonia J18.9 Afib I48.91
[2023-02-02] MEDS ORDERED: HEPARIN SOD (PORCINE) 1000 UNIT/ML IV ONE (08:30)
[2023-02-02 08:40] LABS: BUN Creatinine Ratio 32.2 (10-20); Calcium 8.3 mg/dl (8.6-10.3); Est GFR (Non-African American) 45.7 ml/min; Potassium 3.6 mmol/L (3.5-5.1)
--- NOTE | 2023-02-02 09:19 | XRay Report ---
XR chest 1V portable HISTORY: Dyspnea. COMPARISON: Chest 01/30/2023. FINDINGS: No pneumothorax. The cardiac silhouette remains mildly enlarged. Patchy bilateral airspace opacities and interstitial thickening has significantly improved in the interval. This may represent resolving pulmonary edema or a pneumonitis. Small left pleural effusion has also improved. There are few left basilar linear densities remaining. The feeding tube terminates below the diaphragm. The tip is not included on this study. There are common bile duct stents and a percutaneous catheter again n oted within the right upper quadrant. IMPRESSION: 1. Significantly improved aeration within the lungs. 2. A small left pleural effusion has also improved. 3. A feeding tube terminates below the diaphragm. ACT 112: Negative or not required by law. Electronically signed by: Dannie Chowdhury M.D. 02/02/2023 9:18 AM
--- NOTE | 2023-02-02 09:51 | Infectious Disease Progress Nt ---
Date of Service February 02, 2023 24 hours Afib o/n CXR 1. Significantly improved aeration within the lungs. 2. A small left pleural effusion has also improved. No new micro Assessment & Plan (1) Pancreatitis: (2) Bile leak from gallbladder bed: Plan 72 yo F with history of obesity, HTN, anxiety, chronic neurogenic bladder, osteoporosis, MS, recent admission (12/09 - 01/12) for acute gallstone pancreatitis s/p ERCP with stent placement and subtotal laparoscopic cholecystectomy c/b bile leak with MIMI drain placement and Pseudomonas/Enterococcus UTI discharged on levofloxacin, who presented on 01/15 with back/abdominal pain, hypotension requiring pressors, leukocytosis to 34, found to have continued pancreatitis and peripancreatic fluid collections, bile leak. Pt was started on Zosyn. Hospital course has been complicated by continued bile leak s/p ERCP with stent on 01/19 and 01/24, continued intra- abdominal/peripancreatic collections s/p IR drain into RUQ on 01/26, persistent leukocytosis. 01/15: CT A/P (without contrast) showed severe acute pancreatitis, peripancreatic fluid collections, new 3.4 cm fluid attenuating structure within LUQ, possibly loculated ascites vs acute peripancreatic fluid collection, air and fluid-filled structure again noted in tima hepatis, possibly representing residual gallbladder vs postop fluid collection, unchanged positioning of R subhepatic percutaneous drainage catheter. Started on Zosyn. 01/16: surgery manipulated the RUQ MIMI drain, with improvement in drainage. 01/17: weaned off pressors. 01/18: HIDA scan showed bile leak and possible CBD obstruction. RUQ MIMI drainage sent for culture, growing probable Enterococcus. 01/19: ERCP showed bile leak, and biliary duct stent exchanged. 01/21: pt with increased abd pain. A repeat CT A/P without contrast showed similar severe acute pancreatitis, mildly increased ascites, increased fluid surrounding spleen with new splenic hemorrhage, increased size of peripancreatic fluid collections: adjacent to pancreatic head 2.5 cm --> 3.6 cm, and LUQ 3.5 cm --> 3.9 cm. 01/23: repeat CT A/P wo contrast showed severe pancreatitis with suspected underlying necrosis. Multiple pancreatic and peripancreatic fluid collections. Increased loculated fluid collection along lateral liver measuring 9.1 x 7.5 cm. Increased loculated fluid along stomach with mass effect. Increased perisplenic fluid collection/hemorrhage. 01/24: ERCP showed bile leak. Fibrin glue injected in cystic duct. Stent excha nged to longer covered metal stent, and two plastic biliary stents placed. 01/25: Hypotension in AM, but resolved within a couple hours. Empiric daptomycin added. 01/26: CT abd without contrast showed loculated fluid collection around liver increased in size (11 x 10.5 cm), perisplenic fluid collection decreased in size (14 x 6.5 cm), acute pancreatitis with modest improvement in inflammatory change , fluid collection in pancreatic neck could represent focal necrosis or developing pseudocyst. IR placed drain into perihepatic collection, removed ~200 cc brownish fluid, culture pending. Perisplenic collection was not aspirated due to concern for bleeding. Problems: #Peripancreatic fluid collections #Acute gallstone pancreatitis s/p ERCP with stent placement, subtotal lap adele c/b bile leak with MIMI drain placement (12/10/22) with persistent bile leak s/p ERCP and stent placement 01/19, 01/24 #Splenic hemorrhage #SAMMY: required temporary HD last admission #Decubitus ulcers #Atelectasis vs PNA Abx: Daptomycin 01/25 - Zosyn 01/15 - 01/31 Ertapenam 02/01 - Vanc 01/15 - 01/17 Recommendations: -Patient with acute respiratory decompensation which seems to be multifactorial -Follow-up 01/18 MIMI drain Enterococcus species. Enterococcus is often found in polymicrobial intra-abdominal infections, with questionable pathogenicity vs colonization. Per [place] results this is VRE, I have asked them to add daptomycin sensi will await call back. It is sensitive to Linezolid but there are drug interactions with linezolid and can be associated with hematologic abnormalitis, therefore will continue with daptomycin--> follow up with Micro today -Given no growth of fungal culture may improved would hold on fungal coverage, azoles may have effect on QTc, however if there is no improvement in mental status or WBC does not improve would consider addition of echinocandin over the weekend Discuss with prmary team Karen Gannon MD Admission and Anticipated Discharge Date Admission Date: January 15, 2023 Subjective Subsequent visit was provided via telemedicine using two-way real-time interactive telecommunication between the patient and the telemedicine provider. For the duration of the visit, the provider was performing the assessment from a different facility than the patient. This includesuse of bluetooth stethoscope forauscultationperformed by the telepresenter that the telemedicine provider can hear if described in the physical exam. Pipeline Inspector contact information: Please call [facility] . (Phone Number For Physician Use Only) After establishing a telemedicine visit, patient was: Patient was verified with two unique identifiers, Patient/authorized rep acknowledged consent and understanding and Gave permission to continue telehealth session Time Spent with Patient: Subsequent => 35 min Results & Data Vital Signs (Past 12 Hours) Vital Signs Temp Pulse Pulse Resp BP Pulse Ox O2 Del Method 02/02/23 08:08 36.6 C 85 22 115/73 92 Room Air 02/02/23 07:00 85 02/02/23 05:49 93 H 125/81 02/02/23 05:34 87 113/75 02/02/23 03:46 36.6 C 129 H 23 103/80 98 Room Air 02/02/23 02:18 97 H 02/02/23 02:09 128 H 122/58 L 02/02/23 02:03 141 H 02/02/23 02:02 141 H 107/82 02/02/23 00:51 147 H 02/02/23 00:35 131 H 101/76 02/01/23 23:41 115 H 26 H 112/60 100 Nasal Cannula 02/01/23 23:39 121 H 109/90 02/01/23 23:38 144 H 119/78 02/01/23 23:18 147 H 28 H 137/77 100 Nasal Cannula 02/01/23 22:57 36.5 C 99 H 22 147/69 H 96 Room Air 02/01/23 22:31 Room Air O2 Flow Rate 02/02/23 08:08 02/02/23 07:00 02/02/23 05:49 02/02/23 05:34 02/02/23 03:46 02/02/23 02:18 02/02/23 02:09 02/02/23 02:03 02/02/23 02:02 02/02/23 00:51 02/02/23 00:35 02/01/23 23:41 2 02/01/23 23:39 02/01/23 23:38 05/04/23 23:18 2 02/01/23 22:57 02/01/23 22:31 Laboratory Results Laboratory Results - last 48 hr 01/31/23 01/31/23 01/31/23 11:11 11:11 11:42 WBC RBC Hgb Hct MCV MCH MCHC RDW Std Deviation RDW Coeff of Mandy Plt Count MPV APTT PTT Ratio Sodium Potassium Chloride Carbon Dioxide Anion Gap BUN Creatinine Est Cr Clr Drug Dosing Est GFR ( Amer) Est GFR (Non-Af Amer) BUN/Creatinine Ratio Glucose POC Glucose 141 H Calcium Magnesium B-Natriuretic Peptide 763 H Procalcitonin 0.79 H 01/31/23 01/31/23 01/31/23 16:42 20:17 20:17 WBC RBC Hgb Hct MCV MCH MCHC RDW Std Deviation RDW Coeff of Mandy Plt Count MPV APTT 25.9 PTT Ratio 0.9 Sodium 145 Potassium 4.0 Chloride 106 Carbon Dioxide 25 Anion Gap 14 H BUN 49 H Creatinine 1.42 H Est Cr Clr Drug Dosing 38.8 Est GFR ( Amer) 42.4 Est GFR (Non-Af Amer) 36.5 BUN/Creatinine Ratio 34.5 H Glucose 112 H POC Glucose 118 H Calcium 8.4 L Magnesium B-Natriuretic Peptide Procalcitonin 01/31/23 01/31/23 02/01/23 20:36 23:59 03:23 WBC RBC Hgb Hct MCV MCH MCHC RDW Std Deviation RDW Coeff of Mandy Plt Count MPV APTT 34.4 H PTT Ratio 1.2 Sodium Potassium Chloride Carbon Dioxide Anion Gap BUN Creatinine Est Cr Clr Drug Dosing Est GFR ( Amer) Est GFR (Non-Af Amer) BUN/Creatinine Ratio Glucose POC Glucose 118 H 156 H Calcium Magnesium B-Natriuretic Peptide Procalcitonin 02/01/23 02/01/23 02/01/23 03:23 03:23 05:56 WBC 18.45 H RBC 2.74 L Hgb 7.9 L Hct 24.6 L MCV 89.8 MCH 28.8 MCHC 32.1 RDW Std Deviation 54.0 H RDW Coeff of Mandy 18.0 H Plt Count 348 MPV 9.6 APTT PTT Ratio Sodium 146 H Potassium 3.6 Chloride 105 Carbon Dioxide 25 Anion Gap 16 H BUN 46 H Creatinine 1.45 H Est Cr Clr Drug Dosing 38.0 Est GFR ( Amer) 41.3 Est GFR (Non-Af Amer) 35.6 BUN/Creatinine Ratio 31.7 H Glucose 148 H POC Glucose 171 H Calcium 8.1 L Magnesium 1.9 B-Natriuretic Peptide Procalcitonin 02/01/23 02/01/23 02/01/23 07:41 11:00 11:47 WBC RBC Hgb Hct MCV MCH MCHC RDW Std Deviation RDW Coeff of Mandy Plt Count MPV APTT 49.5 H* PTT Ratio 1.8 Sodium Potassium Chloride Carbon Dioxide Anion Gap BUN Creatinine Est Cr Clr Drug Dosing Est GFR ( Amer) Est GFR (Non-Af Amer) BUN/Creatinine Ratio Glucose POC Glucose 177 H 179 H Calcium Magnesium B-Natriuretic Peptide Procalcitonin 02/01/23 02/01/23 02/01/23 16:22 17:15 23:29 WBC RBC Hgb Hct MCV MCH MCHC RDW Std Deviation RDW Coeff of Mandy Plt Count MPV APTT PTT Ratio Sodium 144 Potassium TNP 4.5 D Chloride 107 Carbon Dioxide 25 Anion Gap 12 H BUN 44 H Creatinine 1.33 H Est Cr Clr Drug Dosing 39.3 Est GFR ( Amer) 45.8 Est GFR (Non-Af Amer) 39.6 BUN/Creatinine Ratio 33.1 H Glucose 159 H POC Glucose 199 H Calcium 8.5 L Magnesium B-Natriuretic Peptide Procalcitonin 02/02/23 02/02/23 02/02/23 05:36 07:49 07:49 WBC 15.79 H RBC 3.12 L Hgb 8.9 L Hct 28.0 L MCV 89.7 MCH 28.5 MCHC 31.8 L RDW Std Deviation 57.2 H RDW Coeff of Mandy 18.4 H Plt Count 362 MPV 9.8 APTT PTT Ratio Sodium 144 Potassium 3.6 Chloride 107 Carbon Dioxide 25 Anion Gap 12 H BUN 38 H Creatinine 1.18 Est Cr Clr Drug Dosing 44.0 Est GFR ( Amer) 53.0 Est GFR (Non-Af Amer) 45.7 BUN/Creatinine Ratio 32.2 H Glucose 160 H POC Glucose 237 H Calcium 8.3 L Magnesium B-Natriuretic Peptide Procalcitonin 02/02/23 07:49 WBC RBC Hgb Hct MCV MCH MCHC RDW Std Deviation RDW Coeff of Mandy Plt Count MPV APTT 34.2 H PTT Ratio 1.2 Sodium Potassium Chloride Carbon Dioxide Anion Gap BUN Creatinine Est Cr Clr Drug Dosing Est GFR ( Amer) Est GFR (Non-Af Amer) BUN/Creatinine Ratio Glucose POC Glucose Calcium Magnesium B-Natriuretic Peptide Procalcitonin Microbiology 01/26/23 11:34 Abdomen Gram Stain - Final 01/26/23 11:34 Abdomen Aerobic and Anaerobic Culture - Final No growth 01/25/23 08:22 Blood Aerobic Blood Culture - Final No growth in Aerobic bottle after 5 days. 01/25/23 08:22 Blood Anaerobic Blood Culture - Final No growth in Anaerobic bottle after 5 days. 01/25/23 08:20 Blood Aerobic Blood Culture - Final No growth in Aerobic bottle after 5 days. 01/25/23 08:20 Blood Anaerobic Blood Culture - Final 01/18/23 Unknown Abdomen, Right Upper Quadrant Gram Stain - Final 01/18/23 Unknown Abdomen, Right Upper Quadrant Aerobic and Anaerobic Culture - Final Enterococcus faecium 01/16/23 10:28 Blood Fungal Smear - Final 01/16/23 10:28 Blood Fungal Culture - Preliminary No yeast or fungus isolated - Report 2, Additional report to follow. 01/15/23 16:49 Blood Aerobic Blood Culture - Final No growth in Aerobic bottle after 5 days. 01/15/23 16:49 Blood Anaerobic Blood Culture - Final No growth in Anaerobic bottle after 5 days. 01/15/23 16:58 Blood Aerobic Blood Culture - Final No growth in Aerobic bottle after 5 days. 01/15/23 16:58 Blood Anaerobic Blood Culture - Final 01/16/23 00:15 Urine,Clean Catch Urine Culture - Final No growth - less than 1,000 colonies/mL. Medications Administered Current Inpatient Medications Acetaminophen (Acetaminophen 325 Mg Tab) 650 mg PO Q6 PRN PRN Reason: Fever Or MILD Pain Stop: 02/14/23 23:34 Last Admin: 01/28/23 21:16 Dose: 650 mg Amiodarone HCl (Amiodarone 200 Mg Tab) 200 mg PO QAM [facility] Stop: 03/02/23 08:59 Last Admin: 01/31/23 08:12 Dose: 200 mg Apixaban (Apixaban 5 Mg Tablet) 5 mg PO BID [facility] Stop: 02/15/23 08:59 Last Admin: 01/31/23 08:12 Dose: 5 mg Dextrose (Dextrose 50% 50 Ml Syringe) 25 - 50 ml IV UD PRN; Protocol PRN Reason: Hypoglycemia Protocol Stop: 02/15/23 08:04 Enteral Nutritional Formula (Peptamen 1.5 Mark 1,000 Ml Bag) 0 ml GT UD VANDNAA; Protocol Stop: 03/03/23 12:44 Furosemide (Furosemide 40 Mg/4 Ml Vial) 30 mg IV QID [facility]ANDANA Stop: 03/02/23 12:59 Last Admin: 02/02/23 08:03 Dose: 30 mg Glucagon (Glucagon For Inj 1 Mg Vial) 1 mg SQ UD PRN; Protocol PRN Reason: Hypoglycemia Protocol Stop: 02/15/23 08:04 Glucose (Glucose 40% Gel 15 Gm Tube) 15 - 30 gm PO UD PRN; Protocol PRN Reason: Hypoglycemia Protocol Stop: 02/15/23 08:04 Glucose (Glucose 10 Tab/Tube) 4 - 8 tab PO UD PRN; Protocol PRN Reason: Hypoglycemia Treatment Stop: 02/15/23 08:04 Amino Acids 1,795.16 ml/ (Nutrition (Parenteral)) 1,795.16 mls @ 74.798 mls/hr IV .Q24H VANDANA; Protocol Last Infusion: 02/01/23 09:20 Dose: Infused Daptomycin 700 mg/ Syringe 14 mls @ 4.25 mls/min IV Q24H [facility]; Protocol Stop: 02/04/23 15:59 Last Admin: 02/01/23 14:58 Dose: 4.25 mls/min Ertapenem 1,000 mg/ Syringe 10 mls @ 2 mls/min IV Q24H [facility] Stop: 02/06/23 22:59 Last Admin: 02/01/23 23:47 Dose: 2 mls/min Heparin Sodium/Dextrose (Heparin Sodium/Dextrose) 25,000 units in 500 mls @ 31 mls/hr IV .Q16H8M VANDANA; Protocol Stop: 03/02/23 20:14 Last Admin: 02/02/23 08:12 Dose: 1,550 units/hr, 31 mls/hr Acetaminophen (Ofirmev) 1,000 mg in 100 mls @ 400 mls/hr IV Q8H PRN PRN Reason: fever/pain Stop: 02/04/23 06:02 Amiodarone HCl/Dextrose (Nexterone / D5w) 360 mg in 200 mls @ 16.667 mls/hr IV .Q12H [facility] Stop: 03/04/23 10:14 Amiodarone HCl/Dextrose (Nexterone / D5w) 360 mg in 200 mls @ 33.333 mls/hr IV ONE ONE Stop: 02/02/23 10:14 Last Admin: 02/02/23 04:21 Dose: 1 mg/min, 33.3 mls/hr Insulin Aspart (Insulin Aspart Per Unit Charge) 0 units SC Q6 [facility] Stop: 03/01/23 16:29 Last Admin: 02/02/23 05:45 Dose: 4 units Magnesium Oxide (Magnesium Oxide 400 Mg Tab) 400 mg PO QAM [facility] Stop: 02/15/23 08:59 Last Admin: 02/02/23 08:04 Dose: 400 mg Methimazole (Methimazole 5 Mg Tablet) 5 mg PO DAILY [facility] Stop: 02/15/23 08:59 Last Admin: 02/02/23 08:04 Dose: 5 mg Metoprolol Tartrate (Metoprolol Tartrate 1 Mg/Ml Vial) 2.5 mg IV Q8 [facility] Stop: 03/02/23 13:59 Last Admin: 02/02/23 05:49 Dose: 2.5 mg Miscellaneous (Carbohydrates For Hypoglycemia ) 15 - 30 gm PO UD PRN PRN Reason: Hypoglycemia Protocol Stop: 02/15/23 08:04 Miscellaneous (Stop Clinolipid) 1 each N/A DAILY@2200 [facility] Stop: 02/27/23 21:59 Last Admin: 02/01/23 21:10 Dose: 1 each Miscellaneous Information (Tpn/Ppn Consult Pharmacy) 1 each N/A UD PRN PRN Reason: Consult Stop: 02/25/23 08:39 Potassium Chloride (Potassium Chloride Crtab 20 Meq Tabcr) 20 meq PO BID [facility] Stop: 03/01/23 08:59 Last Admin: 01/31/23 08:12 Dose: 20 meq Sertraline HCl (Sertraline Hcl 50 Mg Tablet) 50 mg PO QAM [facility] Stop: 02/15/23 08:59 Last Admin: 02/02/23 08:03 Dose: 50 mg Sterile Water (Tube Feeding Water Flush) 90 ml GT Q4H [facility] Stop: 03/03/23 12:44 Last Admin: 02/02/23 08:04 Dose: 90 ml
--- NOTE | 2023-02-02 10:01 | Cardiology Progress Note ---
Date of Service February 02, 2023 Assessment & Plan (1) Sinus bradycardia: (2) Paroxysmal atrial fibrillation: (3) Post-menopausal bleeding: (4) Sepsis: (5) Acute respiratory failure with hypoxia: Plan - Patient with extended hospitalization s/p lap adele for cholecystitis, acute pancreatitis, bile leak with drain, severe sepsis, SAMMY with prior dialysis, post menopausal bleeding, worsening anemia requiring blood transfusion, PAF, sinus bradycardia, and then possible aspiration pneumonia, evidence of possible subacute infarct on head CT -failed her swallow study -NG feeding tube placed. -not taking PO meds. -Continue IV heparin in place of Eliquis for stroke prophylaxis and DVT prophylaxis -Continue IV furosemide with assistance of nephrology - renal function improved. -Clinically she is appearing euvolemic/possibly volume depleted. However, given excessive IV fluids, need to keep I+O's balanced, so continue for now. -Continue IV potassium. -Continue broad spectrum antibiotics for sepsis/pneumonia. -Given prolonged illness/sepsis, failure to improve, worsening respiratory status over the last several days - Repeat limited echo today -Chest xray improved this morning -Earlier this admission, she had PAF and bradycardia -Amiodarone used for afib along with metoprolol. She had transient bradycardia several days ago, this was resolved and amio/metoprolol held and now resumed given recurrent PAF -continue IV metoprolol. Continue IV amiodarone -Currently she is in NSR. -Agree with palliative care discussion. Patient with extensive hospitalizations. Case discussed with Dr. Cerna I spent a total of 35 minutes on the date of service in preparation, delivery, and documentation of the care provided to this patient, excluding any time spent in the performance of separately billed services. Cheryle Sanchez PA-C Department of Cardiology, [facility] This chart was completed in part utilizing Speech Voice Recognition Software. Grammatical errors, random word insertions, prounoun errors, and incomplete sentences are an occasional consequence of this system due to software limitations, ambient noise, and hardware issues. Any formal questions or concerns about the content, text, or information contained within the body of this dictation should be directly addressed to the provider for clarification. Admission and Anticipated Discharge Date Admission Date: January 15, 2023 Supervising Physician Co-Signing Physician Notes Supervising Physician Attestation: I have personally performed a history and physical examination on the patient. I agree with the physician housekeeper/laundry assistant's findings and plan as documented with the following additions. Subjective: Hospital day 18. Having previously been hospitalized from 12/09/2022 until 01/12/2023. Per review of the discharge summary she was treated for acute gallstone pancreatitis, acute cholangitis and a pancreatic pseudocyst. She had undergone ERCP and laparoscopic cholecystectomy. An intra-abdominal drain was placed for treatment of suspected persistent bile leak with biloma. Patient had been followed by cardiology during her previous hospital stay for episodes of paroxysmal atrial fibrillation in the setting of sepsis. Cardiology reconsulted this admission for episodes of paroxysmal atrial fibrillation and occasional bradycardia. As noted, had a 6-hour atrial fibrillation overnight last night which converted to sinus rhythm after reinitiating amiodarone which had been administered after lack of improvement with IV metoprolol, IV digoxin x2 and a dose of IV diltiazem. This morning at 1012 heart rate down to the 42 bpm and the amiodarone infusion was therefore discontinued. Per my review of telemetry this appears to be sinus rhythm with frequent blocked PACs. Most recent heart rates been in the range of 80 to 110 bpm. Exam: General: More conversant today, nasogastric tube in place Pulmonary: Lungs clear Cardiovascular: Regular rhythm, murmurs, no edema Data: Limited echocardiogram performed today per reassessment of left ventricular systolic function. No pericardial effusion noted. Hyperdynamic biventricular systolic function noted, LVEF greater than 70%, 3 heart appears small and underfilled. Assessment and Plan: -Patient had been switched to IV medications, now has a functioning nasogastric tube, but I am not certain how long this will be in place. -Increase IV metoprolol to 2.5 mg every 6 hours as compared to every 8 hours. -Resume oral amiodarone 200 mg daily via PEG tube -Discussed with patient's daughter at her heart rate variability and hyperdynamic left ventricular systolic function is likely a marker of her noncardiac illness. DVT prophylaxis: Eliquis on hold, continue anticoagulation with heparin. Noted transient anemia from dysfunctional uterine bleeding earlier this week, hemoglobin currently stable 8.9 -Cardiology to continue to follow peripherally. Please call with questions and concerns. Patient reliably tolerating oral medications, consider transition to metoprolol tartrate 12.5 mg twice daily and titrating as tolerated. Tomi Mark [place], DO Subjective Patient underwent NG feeding tube placement yesterday. Chest xray improved this morning. Oxygen saturations also improved. Edema improved. Clinically appears possibly volume depleted. Review of Systems Review of Systems: Unobtainable due to cognitive status (and NG tube in place) Physical Exam Constitutional: WD/WN, vitals as above + ill appearing and + lethargic Respiratory: normal respiratory effort Auscultation: + diminished lung sounds; no crackles and no rales Cardiovascular: Rate/Rhythm: regular rate and regular rhythm Heart Sounds: no murmur Extremities: no edema Gastrointestinal (Abdomen): normal bowel sounds, soft, nontender, no hepatosplenomegaly Results & Data Vital Signs (Past 12 Hours) Vital Signs Temp Pulse Pulse Resp BP Pulse Ox O2 Del Method 02/02/23 08:08 36.6 C 85 22 115/73 92 Room Air 02/02/23 07:00 85 02/02/23 05:49 93 H 125/81 02/02/23 05:34 87 113/75 02/02/23 03:46 36.6 C 129 H 23 103/80 98 Room Air 02/02/23 02:18 97 H 02/02/23 02:09 128 H 122/58 L 02/02/23 02:03 141 H 02/02/23 02:02 141 H 107/82 02/02/23 00:51 147 H 02/02/23 00:35 131 H 101/76 02/01/23 23:41 115 H 26 H 112/60 100 Nasal Cannula 02/01/23 23:39 121 H 109/90 02/01/23 23:38 144 H 119/78 02/01/23 23:18 147 H 28 H 137/77 100 Nasal Cannula 02/01/23 22:57 36.5 C 99 H 22 147/69 H 96 Room Air 02/01/23 22:31 Room Air O2 Flow Rate 02/02/23 08:08 02/02/23 07:00 02/02/23 05:49 02/02/23 05:34 02/02/23 03:46 02/02/23 02:18 02/02/23 02:09 02/02/23 02:03 02/02/23 02:02 02/02/23 00:51 02/02/23 00:35 02/01/23 23:41 2 02/01/23 23:39 02/01/23 23:38 02/01/23 23:18 2 02/01/23 22:57 02/01/23 22:31 Laboratory Results Coagulation 02/01/23 02/02/23 Range/Units 11:00 07:49 APTT 49.5 H* 34.2 H (21.0-31.0) Seconds CBC 02/02/23 Range/Units 07:49 WBC 15.79 H (4.8-10.8) K/ul RBC 3.12 L (4.20-5.40) M/uL Hgb 8.9 L (12.0-16.0) g/dl Hct 28.0 L (37.0-47.0) % Plt Count 362 (130-400) K/uL Comprehensive Metabolic Panel 02/01/23 02/01/23 02/02/23 Range/Units 16:22 17:15 07:49 Sodium 144 144 (136-145) mmol/L Potassium TNP 4.5 D 3.6 Chloride 107 107 (98-107) mmol/L Carbon Dioxide 25 25 (21-32) mmol/L BUN 44 H 38 H (6-23) mg/dl Creatinine 1.33 H 1.18 (0.6-1.2) mg/dl Glucose 159 H 160 H (70-99(Fasting)) mg/dl Calcium 8.5 L 8.3 L (8.6-10.3) mg/dl Intake and Output 02/01/23 02/02/23 02/02/23 22:59 06:59 14:59 Intake Total 592.867 / 1333.800 200 / 1333.800 550.667 / 550.667 Output Total 750 / 2601 451 / 2601 Balance -157.133 / -1267.200 -251 / -1267.200 550.667 / 550.667 Intake: IV 592.867 / 1333.800 200 / 1333.800 550.667 / 550.667 Amiodarone / D5w 150 mg In 100 100 / 100 ml @ 600 mls/hr IV NOW STA Rx#: [id number] Amiodarone / D5w 360 mg In 200 184.8 / 184.8 ml @ 1 MG/MIN 33.333 mls/hr IV ONE ONE Rx#:[id number] Heparin Sodium/Dextrose 25,000 116.2 / 397.133 365.867 / 365.867 units In 500 ml @ 1,400 UNITS/ HR 28 mls/hr IV .[id number] [facility] Rx #:[id number] Magnesium Sulfate / D5w 1 gm In 100 / 100 100 ml @ 50 mls/hr IV ONE ONE Rx#:[id number] Potassium Chloride / Wtr 10 meq 476.667 / 736.667 In 100 ml @ 100 mls/hr IV Q1H [facility] Rx#:[id number] Output: Urine 750 / 1750 Other 400 / 400 Drain Output 50 / 50 Left Abdomen 50 / 50 # Bowel Movements Other: Weight 82.1 kg Weight Measurement Method Built in [facility] Diagnostic Findings Telemetry reviewed: Developed approx 6 hours afib RVR overnight from 23:00- 5:30. Eventually converting to NSR on IV amiodarone. Currently NSR in the ' Chest xray today reviewed: IMPRESSION: 1. Significantly improved aeration within the lungs. 2. A small left pleural effusion has also improved. 3. A feeding tube terminates below the diaphragm. Medications Administered Current Inpatient Medications Acetaminophen (Acetaminophen 325 Mg Tab) 650 mg PO Q6 PRN PRN Reason: Fever Or MILD Pain Stop: 02/14/23 23:34 Last Admin: 01/28/23 21:16 Dose: 650 mg Amiodarone HCl (Amiodarone 200 Mg Tab) 200 mg PO QAM [facility] Stop: 03/02/23 08:59 Last Admin: 01/31/23 08:12 Dose: 200 mg Apixaban (Apixaban 5 Mg Tablet) 5 mg PO BID [facility] Stop: 02/15/23 08:59 Last Admin: 01/31/23 08:12 Dose: 5 mg Dextrose (Dextrose 50% 50 Ml Syringe) 25 - 50 ml IV UD PRN; Protocol PRN Reason: Hypoglycemia Protocol Stop: 02/15/23 08:04 Enteral Nutritional Formula (Peptamen 1.5 Mark 1,000 Ml Bag) 0 ml GT UD [facility]; Protocol Stop: 03/03/23 12:44 Furosemide (Furosemide 40 Mg/4 Ml Vial) 30 mg IV QID [facility] Stop: 03/02/23 12:59 Last Admin: 02/02/23 08:03 Dose: 30 mg Glucagon (Glucagon For Inj 1 Mg Vial) 1 mg SQ UD PRN; Protocol PRN Reason: Hypoglycemia Protocol Stop: 02/15/23 08:04 Glucose (Glucose 40% Gel 15 Gm Tube) 15 - 30 gm PO UD PRN; Protocol PRN Reason: Hypoglycemia Protocol Stop: 02/15/23 08:04 Glucose (Glucose 10 Tab/Tube) 4 - 8 tab PO UD PRN; Protocol PRN Reason: Hypoglycemia Treatment Stop: 02/15/23 08:04 Amino Acids 1,795.16 ml/ (Nutrition (Parenteral)) 1,795.16 mls @ 74.798 mls/hr IV .Q24H [facility]; Protocol Last Infusion: 02/01/23 09:20 Dose: Infused Daptomycin 700 mg/ Syringe 14 mls @ 4.25 mls/min IV Q24H [facility]; Protocol Stop: 02/04/23 15:59 Last Admin: 02/01/23 14:58 Dose: 4.25 mls/min Ertapenem 1,000 mg/ Syringe 10 mls @ 2 mls/min IV Q24H [facility] Stop: 02/06/23 22:59 Last Admin: 02/01/23 23:47 Dose: 2 mls/min Heparin Sodium/Dextrose (Heparin Sodium/Dextrose) 25,000 units in 500 mls @ 31 mls/hr IV .Q16H8M [facility]; Protocol Stop: 03/02/23 20:14 Last Admin: 02/02/23 08:12 Dose: 1,550 units/hr, 31 mls/hr Acetaminophen (Ofirmev) 1,000 mg in 100 mls @ 400 mls/hr IV Q8H PRN PRN Reason: fever/pain Stop: 02/04/23 06:02 Amiodarone HCl/Dextrose (Nexterone / D5w) 360 mg in 200 mls @ 16.667 mls/hr IV .Q12H [facility] Stop: 03/04/23 10:14 Last Admin: 02/02/23 09:54 Dose: 0.5 mg/min, 16.7 mls/hr Amiodarone HCl/Dextrose (Nexterone / D5w) 360 mg in 200 mls @ 33.333 mls/hr IV ONE ONE Stop: 02/02/23 10:14 Last Infusion: 02/02/23 09:54 Dose: Infused Insulin Aspart (Insulin Aspart Per Unit Charge) 0 units SC Q6 [facility] Stop: 03/01/23 16:29 Last Admin: 02/02/23 05:45 Dose: 4 units Magnesium Oxide (Magnesium Oxide 400 Mg Tab) 400 mg PO QAM [facility] Stop: 02/15/23 08:59 Last Admin: 02/02/23 08:04 Dose: 400 mg Methimazole (Methimazole 5 Mg Tablet) 5 mg PO DAILY [facility] Stop: 02/15/23 08:59 Last Admin: 02/02/23 08:04 Dose: 5 mg Metoprolol Tartrate (Metoprolol Tartrate 1 Mg/Ml Vial) 2.5 mg IV Q8 [facility] Stop: 03/02/23 13:59 Last Admin: 02/02/23 05:49 Dose: 2.5 mg Miscellaneous (Carbohydrates For Hypoglycemia ) 15 - 30 gm PO UD PRN PRN Reason: Hypoglycemia Protocol Stop: 02/15/23 08:04 Miscellaneous (Stop Clinolipid) 1 each N/A DAILY@2200 [facility] Stop: 02/27/23 21:59 Last Admin: 02/01/23 21:10 Dose: 1 each Miscellaneous Information (Tpn/Ppn Consult Pharmacy) 1 each N/A UD PRN PRN Reason: Consult Stop: 02/25/23 08:39 Potassium Chloride (Potassium Chloride Crtab 20 Meq Tabcr) 20 meq PO BID [facility] Stop: 03/01/23 08:59 Last Admin: 01/31/23 08:12 Dose: 20 meq Sertraline HCl (Sertraline Hcl 50 Mg Tablet) 50 mg PO QAM [facility] Stop: 02/15/23 08:59 Last Admin: 02/02/23 08:03 Dose: 50 mg Sterile Water (Tube Feeding Water Flush) 90 ml GT Q4H [facility] Stop: 03/03/23 12:44 Last Admin: 02/02/23 08:04 Dose: 90 ml (4) Sepsis Sepsis acute organ dysfunction status: unspecified Sepsis type: sepsis due to unspecified organism Qualified Code(s): A41.9 - Sepsis, unspecified organism
[2023-02-02] MEDS ORDERED: AMIODARONE / D5W 360 MG/200 ML BAG IV SCH (10:15)
--- NOTE | 2023-02-02 11:34 | Nephrology Progress Note ---
Date of Service February 02, 2023 Assessment & Plan (1) Acute renal failure: Plan: nonoliguric ischemic ATN, stage 2, further improving w/ volume overload, acute respiratory failure; ABG w/ hypoxia and combined metabolic/respiratory alkalosis before bipap Her baseline creatinine as recently as the middle of November 2022 was actually 0.9. During mid November to mid December extended admission for cholangitis and pancreatitis with complications, she had acute renal failure requiring several treatments of intermittent hemodialysis, with last treatment January 01. Her renal function recovered sufficiently to stop hemodialysis. Her discharge creatinine was 1.8 on January 12. Her presenting creatinine this admission on January 15 was 2; she hovered in this range until 01/29, w/ slow downtrend to mid ones w/ purewick also incontinent of urine > out's not fully accurate has pulmonary edema and pleural effusion both much improved >> need to slow rate of offloading volume >> will lower lasix to 30 mg bid and start K elixir > for now 40 mEq tid Continue to monitor renal function with daily BMP Admission and Anticipated Discharge Date Admission Date: January 15, 2023 Subjective seen on early am rounds; on RA, resting comfortably; had AF w/ RVR to 120s again ON and back on amio gtt and metoprolol>NSR; for limited TTE today. denies pain or SOB; tolerating NGT Review of Systems Review of Systems: All systems reviewed & are unremarkable except as noted in Subjective Physical Exam Constitutional: well developed, well nourished, + frail appearing and cooperative; no acute distress Eyes: EOM intact bilaterally ENMT: Ears: no external ear abnormality Nose: no external nose abnormality (NGT present) Mouth: + dry oral mucous membranes Neck: no nuchal rigidity Respiratory: normal respiratory effort (on RA) Auscultation: + diminished lung sounds Cardiovascular: Rate/Rhythm: regular rate and regular rhythm Extremities: + edema (much diminished) Gastrointestinal (Abdomen): Inspection/Auscultation: normal bowel sounds, + abdominal surgical drain present and + high-pitched sounds Percussion/Palpation: abdomen soft; abdomen nontender Musculoskeletal: Extremities: + abnormal strength (can't hold arms up) Skin: no rashes, warm and dry Psychiatric: Orientation: oriented x 3; + not alert (fatigued/tired) Results & Data Vital Signs (Past 12 Hours) Vital Signs Temp Pulse Pulse Resp BP Pulse Ox O2 Del Method 02/02/23 08:08 36.6 C 85 22 115/73 92 Room Air 02/02/23 07:00 85 02/02/23 05:49 93 H 125/81 02/02/23 05:34 87 113/75 02/02/23 03:46 36.6 C 129 H 23 103/80 98 Room Air 02/02/23 02:18 97 H 02/02/23 02:09 128 H 122/58 L 02/02/23 02:03 141 H 02/02/23 02:02 141 H 107/82 02/02/23 00:51 147 H 02/02/23 00:35 131 H 101/76 02/01/23 23:41 115 H 26 H 112/60 100 Nasal Cannula 02/01/23 23:39 121 H 109/90 02/01/23 23:38 144 H 119/78 O2 Flow Rate 02/02/23 08:08 02/02/23 07:00 02/02/23 05:49 02/02/23 05:34 02/02/23 03:46 02/02/23 02:18 02/02/23 02:09 02/02/23 02:03 02/02/23 02:02 02/02/23 00:51 02/02/23 00:35 02/01/23 23:41 2 02/01/23 23:39 02/01/23 23:38 Laboratory Results 02/02/23 07:49 02/02/23 07:49 Diagnostic Findings cxr much improved aeration and some effusion better but still some plm edema noted
--- NOTE | 2023-02-02 11:56 | Surgery Progress Note ---
Date of Service February 02, 2023 Assessment & Plan (1) Pancreatitis: Plan: Patient went into afib with rvr overnight, cardiology following. on amio gtt Core safe in place currently receiving TEN Abdominal drain with approximately 50cc over last 24 hours. plan to leave in place until output <10cc/day Pt with multiple medical issues with cardiology, pulm, nephro, ID, palliative consultations to help assist w/ medical management Admission and Anticipated Discharge Date Admission Date: January 15, 2023 Subjective Patient with ng tube for TEN feeds, tolerating thus far. Currently denies any CP/SOB or abdominal pain. Physical Exam Physical Exam: awake, tired appearing Respiratory: normal respiratory effort Gastrointestinal (Abdomen): Percussion/Palpation: abdomen soft IR drain in place draining brown fluid, 50cc documented over last 24 hours Results & Data Vital Signs (Past 12 Hours) Vital Signs Temp Pulse Pulse Resp BP Pulse Ox O2 Del Method 02/02/23 08:08 36.6 C 85 22 115/73 92 Room Air 02/02/23 07:00 85 02/02/23 05:49 93 H 125/81 02/02/23 05:34 87 113/75 02/02/23 03:46 36.6 C 129 H 23 103/80 98 Room Air 02/02/23 02:18 97 H 02/02/23 02:09 128 H 122/58 L 02/02/23 02:03 141 H 02/02/23 02:02 141 H 107/82 02/02/23 00:51 147 H 02/02/23 00:35 131 H 101/76 PG Care Time/CCT Total # of Minutes Spent Total Time Spent with Patient: Total time spent is greater than 50% in coordination of care (as documented) at patient's floor/unit and/or counseling patient: Coding Level of Care Code None Diagnoses Pancreatitis K85.90
[2023-02-02] MEDS: POTASSIUM CHLORIDE 20 MEQ/15 ML UDC PO SCH ×3 (13:18→22:15)
[2023-02-02] MEDS: ACETAMINOPHEN 1,000 MG/100 ML VIAL IV PRN (15:21)
--- NOTE | 2023-02-02 15:34 | Communication Note ---
Date of Service: February 02, 2023 We were asked to provide input into this 72 year old female with history of pancreatitis s/p choledocholithiasis removal via ERCP w/ biliary stent placement in 12/10/2022, then cholecystectomy complicated by bile leak managed by MIMI drain in tima hepatis area, then admitted w/ sepsis, abdominal pain. - Repeat ERCP on 01/19 for CBD stent placement for bile leak. 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 - Repeat EUS/ERCP 01/24 w/ evidence of ascites and evidence of persistent leak from remnant gallbladder s/p stent exchange and fibrin glue injection to the cystic duct - Repeat CT abd showed persistent L liver lobe fluid collection, fluid collection in pancreatic neck could represent focal necrosis or developing pseudocyst, perisplenic fluid collectionconcerning for bleeding - Pt had drain placed by IR on 01/26 for perihepatic fluid collection - Drain output was small earlier this week, and pt began NG tube feedings yesterday. She developed worsening drain output since then along with some abd discomfort. - She has had multiple medical issues during this prolonged admission including acute renal failure requiring dialysis, acute respiratory failure, pleural effusion, a-fib with RVR during this admission Assessment: Complicated patient s/p ERCP x 3, initially for choledocholithiasis and then x 2 more for bile leak with stent placement s/p cholecystectomy. Had fluid collection in the panc neck (? pseudocyst). Had IR place RUQ drain for fluid collection (? from pancreatitis vs bile leak). Bile leak has been treated and was thought to be controlled. Now having increased drain output since starting NG feeds. Repeat CTAP pending. ? fluid collection related to pancreatitis vs bile leak Plan: - Last lipase checked 01/16 (330), and last LFTs checked 01/28 (WNL) - Would recommend repeat lipase and LFTs at this point - Await and follow CT data - if pancreatic pseudocyst continues to decrease in size, and overall picture doesn't seem c/w persistent bile leak, no intervention from GI - If imaging is concerning for cont bile leak consider repeat nuclear hepatobiliary scan to confirm. - If pancreatic collection or biliary collection significantly enlarges on new CT consider transfer to a tertiary center for advanced IR/pancreaticobiliary intervention. - Agree with supportive care, continue ABX - Continue to monitor drain output. - Given difficulty with NG feeding, may need to consider parenteral nutrition start. Please see addendum below with additional recommendation from my supervising physician.
--- NOTE | 2023-02-02 15:42 | CT Scan Report ---
ABDOMEN AND PELVIS CT WITHOUT CONTRAST CT DOSE: 1202.29 mGy.cm HISTORY: Generalized abdominal pain. TECHNIQUE: Multiaxial CT images of the abdomen and pelvis were performed without contrast. A dose lo wering technique was utilized adhering to the principles of ALARA. COMPARISON STUDY: Abdominal CT 01/26/2023. FINDINGS: The right pleural effusion has resolved. A small left pleural effusion has decreased in siz e. Consolidation within the left lower lobe has improved. This may represent atelectasis or a pneumon ia. There are progressive patchy groundglass airspace opacities within the lung bases. No pneumoperit oneum. No pneumatosis. No acute fractures identified. There is a feeding tube terminating at the pylo ivan. Multiple common bile duct stents appear in good position. This likely accounts for the pneumobil ia. The left perihepatic/subcapsular fluid collection has significantly decreased in size status post percutaneous drainage. The catheter remains in good position. There is only a small amount of locula garima fluid remaining within the left perihepatic location. The adrenal glands are unremarkable. Bilate ral nephrolithiasis. No hydronephrosis. No retroperitoneal lymphadenopathy. The bladder is unremarkab le. Pelvic muscular atrophy again noted. The uterus and bilateral adnexa are unremarkable. Small amou nt of pelvic fluid is noted. This is not completely loculated at this time. Fluid-filled large and sm all bowel seen throughout the abdomen. No dilated loops of bowel to suggest an obstruction. Inflammat ory change/edema adjacent to the hepatic flexure of the colon has slightly improved. The moderate siz ed perisplenic hematoma/fluid collection is stable to slightly decreased in size. This measures 12 x 7 cm, previously measuring 14 x 6 cm. The multiple loculated fluid collections within the left anteri or abdomen have slightly increased in size. Dominant fluid collection on image 319 measures 7.0 x 5.6 cm. There is slight increase in size and increased density within the peripancreatic fluid collectio ns compared to the prior study. This suggests blood products in the setting of hemorrhagic pancreatit is. This includes a new small hyperdense focus at the pancreatic tail on image 134 measuring 1.9 cm. The gallbladder is surgically absent. Gas and fluid within the gallbladder fossa is again noted. This suggests a residual cystic duct leak. IMPRESSION: 1. There is slight increase in size and increased density within the peripancreatic fluid collections compared to the prior study. This suggests blood products in the setting of hemorrhagic pancreatitis . 2. Inflammatory change/edema adjacent to the hepatic flexure of the colon has slightly improved. 3. The gallbladder is surgically absent. Gas and fluid within the gallbladder fossa is again noted. T his suggests a residual cystic duct leak. 4. The right pleural effusion has resolved. A small left pleural effusion has decreased in size. 5. There are new patchy groundglass densities within the lung bases. This could represent congestive change or an atypical pneumonitis. 6. The feeding tube terminates at the pylorus. 7. The left perihepatic/subcapsular fluid collection has significantly decreased in size status post percutaneous drainage. The catheter remains in good position. There is only a small amount of loculat ed fluid remaining within the left perihepatic location. 8. The moderate sized perisplenic hematoma/fluid collection is stable to slightly decreased in size. 9. The multiple loculated fluid collections within the left anterior abdomen have slightly increased in size with the dominant fluid collection measuring 7.0 x 5.6 cm. 10. Small amount of pelvic fluid which is not completely loculated at this time. 11. Bilateral nephrolithiasis. 12. Additional findings as described above. ACT 112: Negative or not required by law. Electronically signed by: Dannie Chowdhury M.D. 02/02/2023 3:39 PM
[2023-02-02 15:52] LABS: Partial Thromboplastin Ratio 1.8
[2023-02-02 16:08] LABS: Partial Thromboplastin Time 51.3 Seconds (21.0-31.0)
--- NOTE | 2023-02-02 16:18 | Communication Note ---
Date of Service: February 02, 2023 72-year-old female well-known to the service for cholangitis and choledocholithiasis status post ERCP, status post laparoscopic subtotal cholecystectomy for severe necrotizing cholecystitis with resultant bile leak, status post severe acute pancreatitis status post drainage of developing pancreatic pseudocyst. She was restarted on feeds over the past 24 hours and developed significant increase in her drain output as well as some increased abdominal pain. CT scan of the abdomen and pelvis showed worsening of the pancreatitis with concern for hemorrhagic pancreatitis. There are also several other fluid collections that of increased slightly in size. At this point we have exhausted all treatment options at this facility except for supportive care. After discussion with GI we agree that the patient should be transferred to a tertiary facility for further management if the patient and her family desire. No surgical intervention is indicated at this time.
[2023-02-02] MEDS: DAPTOmycin 700 MG in SYRINGE 0 ML IV SCH (17:09)
--- NOTE | 2023-02-02 17:51 | Hospitalist Progress Note ---
Date of Service February 02, 2023 Assessment & Plan (1) Septic shock: Plan: Patient was recently hospitalized for about a month during which she was managed for acute pancreatitis, acute cholangitis, septic shock, acute renal failure requiring dialysis briefly, paroxysmal A-fib. Underwent ERCP on 12/10 with removal of stones from the bile duct. Underwent lap adele with extensive lysis of adhesions on 12/10 by general surgery.Was discharged to longterm facility and represented with abdominal and back pain. Septic Shock Was on Levophed which was weaned off on 01/17. Sources of sepsis: include intra-abdominal infection, surgical subhepatic drain in situ, recent UTI. Acute on chronic pancreatitis Intra-abdominal fluid collection-biliary leak, necrotic pancreatitis Perisplenic Hemorrhage --CT ABD: Redemonstration of the severe pancreatitis. This is similar to the prior study. Postoperative changes consistent with a recent cholecystectomy with a small amount of nonspecific perihepatic fluid and a small amount of pneumoperitoneum remaining. A right subhepatic percutaneous drainage catheter remains unchanged in position. The common bile duct stent appears in good position. There is associated pneumobilia. Small bilateral pleural effusions persist. No change in the patchy groundglass airspace opacities within the lungs. This may represent an atypical/viral pneumonitis. Fluid-filled nondilated loops of large and small bowel which may represent a gastroenteritis/diarrheal illness. Bilateral nephrolithiasis. No ureteral stones. No hydronephrosis. --Repeat CT:Findings consistent with severe acute pancreatitis. 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 Perisplenic hemorrhage, stable to slightly increased since prior CT. The perisplenic fluid collection has increased in size since prior CT. Irregularity of the spleen consistent with splenic injury. Increase in size of perihepatic and perigastric fluid collections with mass effect upon the stomach. The perihepatic fluid collection could be related to a bile leak or acute pancreatitis. Increase in gas within the cholecystectomy bed. This is nonspecific given indwelling surgical drain and common bile duct stent however a persistent biliary leak cannot be excluded. No significant change in a moderate left pleural effusion with left lower lobe atelectasis. Slight increase in small to moderate pelvic ascites. --EUS/ERCP 01/24 w/ evidence of ascites and evidence of persistent leak from remnant gallbladder s/p stent exchange and fibrin glue injection to the cystic duct --S/P ultrasound guided perihepatic fluid aspiration and placement of drain --Abd Fluid Cx: Enterococcus faecium -- Repeat abdominal fluid culture no growth --Blood cultures negative --Repeat CT 02/02/23:There is slight increase in size and increased density within the peripancreatic fluid collections compared to the prior study. This suggests blood products in the setting of hemorrhagic pancreatitis. Inflammatory change/edema adjacent to the hepatic flexure of the colon has slightly improved. The gallbladder is surgically absent. Gas and fluid within the gallbladder fossa is again noted. This suggests a residual cystic duct leak. The right pleural effusion has resolved. A small left pleural effusion has decreased in size. There are new patchy groundglass densities within the lung bases. This could represent congestive change or an atypical pneumonitis. The feeding tube terminates at the pylorus. 7. The left perihepatic/subcapsular fluid collection has significantly decreased in size status post percutaneous drainage. The catheter remains in good position. There is only a small amount of loculated fluid remaining within the left perihepatic location. The moderate sized perisplenic hematoma/fluid collection is stable to slightly decreased in size. The multiple loculated fluid collections within the left anterior abdomen have slightly increased in size with the dominant fluid collection measuring 7.0 x 5.6 cm. Small amount of pelvic fluid which is not completely loculated at this time. Bilateral nephrolithiasis. Appreciate ID, surgery, GI, IR input On IV daptomycin, Zosyn>> IV daptomycin and ertapenem: Discussed with ID today: Advised to continue current antibiotics IV PPN held due to volume overload status NG tube feeds held given worsening abd pain Continue drain, until its approximately 10 cc or less per day Discussed with surgery and GI today --Repeat CT abdomen suggestive of hemorrhagic pancreatitis, increasing abdominal fluid collections--- GI, surgery suggested transfer to tertiary care facility for further management. May need tertiary center for advanced IR/pancreaticobiliary intervention. Discussed with [facility]--awaiting acceptance (Discussed with Dr. Ismael Zavala - GI, Dr. Orlando Santana- IR at [facility]) Accepting Physician:Dr. Dakota Puente at [facility]. Currently no beds available. We will transfer once bed is available. Acute respiratory failure with hypoxia Likely multifactorial secondary to A-fib RVR, Possible aspiration Left-sided pleural effusion/atelectasis --CXR:Multifocal airspace consolidation is unchanged from today's earlier examination. This could represent multifocal pneumonia and/or pulmonary edema. Clinical correlation would be required and radiographic follow-up to resolution is recommended. Left pleural effusion. -- Procalcitonin 0.79 Continue antibiotics as above Continue supplemental oxygen as needed Appreciate pulmonary input Aspiration precautions Continue IV diuresis per nephrology BiPAP as needed and at bedtime Paroxysmal atrial fibrillation with RVR Intermittent bradycardia On IV heparin for anticoagulation Continue IV metoprolol IV amiodarone held due to bradycardia Plan to resume oral amiodarone 200 mg daily as recommended by cardiology Acute metabolic encephalopathy --CT Head:1. No acute intracranial hemorrhage. No evidence for acute territorial infarct. Multiple periventricular hypodense foci, the largest of which is a 2 cm left frontal lobe focus. These may reflect small vessel disease. However, age indeterminate infarcts, likely subacute to chronic, could appear similar. -- Reorient frequently to minimize delirium Monitor Acute blood loss anemia Likely multifactorial: Vaginal Bleeding/perisplenic hemorrhage S/P PRBCs Monitor H&H and transfuse as needed Postmenopausal vaginal bleeding Endometrial thickening --Pelvic USD:Pathologic thickening of the postmenopausal endometrium. Correlation with tissue sampling recommended. Pelvic ascites again noted. Nonvisualization of the ovaries. --Appreciate [employer] Input Needs outpatient D&C Anticoagulation can be restarted per OBGYN As per Prior Provider Facial Rash Likely due to rosacea Improved Hypertension Continue current medications Monitor (2) Hyperthyroidism: Plan: As per prior provider Patient on methimazole which is known to have a side effect of pancreatitis. However, will cont for now as this pancreatitis is improved clinically and there are more likely causes/contributing factors. (3) Pleural effusion, left: (4) Acute renal failure: Plan: Nonoliguric ischemic ATN Volume overload status Intermittent hemodialysis last admission Cr 1.8 on discharge last admission Continue IV Lasix Monitor electrolytes and replace as needed Monitor renal function Appreciate nephrology input (5) Acute pancreatitis: Plan: Bedsores Has bilateral stasis to sacral decubitus Appreciate wound care management Plan Other significant medical conditions Depression Multiple sclerosis Continue home medications as able DVT Px Eliquis initially held due to splenic hemorrhage IV heparin Code Status Full code for now Consulted Palliative to address goals of care Disposition [facility] when bed available Admission and Anticipated Discharge Date Admission Date: January 15, 2023 Subjective Patient is seen and examined at bedside Patient had A-fib RVR overnight which resolved Denies any abdominal pain this morning but later developed increased abdominal pain and tube feeds were held Discussed with infectious disease, surgery and GI Repeat CT abdomen suggestive of hemorrhagic pancreatitis, increasing abdominal fluid collections Discussed with patient's family at bedside--and possible need for transfer to tertiary care facility Discussed with [facility]--awaiting acceptance Review of Systems Review of Systems: All systems reviewed & are unremarkable except as noted in Subjective Physical Exam Physical Exam: Physical Exam: Vitals signs as noted above General Appearance:Moderately built and nourished, no distress, Ill appearing, Lethargic Head: normocephalic, Atraumatic Eyes: normal inspection, EOMI Neck: supple, Trachea midline Respiratory/Chest: Decreased breath sounds, CTA, No accessory muscle use Cardiovascular: S1, S2, No murmur Abdomen/GI:Soft, mild tender, +Abd Drain, +Surgical dressing, Bowel sounds present Extremities/Musculoskeletal:normal inspection, +generalized edema Neurologic/Psych:Lethargic and drowsy, unable to perform complete Neuro exam Skin: normal color, warm Results & Data Results & Data Vital Signs (Past 12 Hours) Vital Signs Temp Pulse Pulse Resp BP Pulse Ox O2 Del Method 02/02/23 16:00 37 C 87 20 138/77 95 Room Air 02/02/23 16:25 36.7 C 87 20 95/63 L 94 Room Air 02/02/23 14:27 36.8 C 110 H 50 H 158/82 H 93 Room Air 02/02/23 12:19 36.9 C 93 H 22 157/67 H 96 Room Air 02/02/23 08:08 36.6 C 85 22 115/73 92 Room Air 02/02/23 07:00 85 02/02/23 05:49 93 H 125/81 Laboratory Results Short CBC 02/02/23 Range/Units 07:49 WBC 15.79 H (4.8-10.8) K/ul Hgb 8.9 L (12.0-16.0) g/dl Hct 28.0 L (37.0-47.0) % Plt Count 362 (130-400) K/uL BMP 02/01/23 02/02/23 17:15 07:49 Sodium 144 Potassium 4.5 D 3.6 Chloride 107 Carbon Dioxide 25 BUN 38 H Creatinine 1.18 Glucose 160 H Calcium 8.3 L (5) Acute pancreatitis Acute pancreatitis complication: unspecified Pancreatitis type: unspecified pancreatitis type Qualified Code(s): K85.90 - Acute pancreatitis without necrosis or infection, unspecified
[2023-02-02] MEDS ORDERED: ACETAMINOPHEN 1,000 MG/100 ML VIAL IV STA (19:03)
--- NOTE | 2023-02-02 21:51 | Electrocardiogram Report ---
Test Reason : Blood Pressure : / mmHG Vent. Rate : 142 BPM Atrial Rate : 337 BPM P-R Int : 000 ms QRS Dur : 088 ms QT Int : 328 ms P-R-T Axes : 000 028 257 degrees QTc Int : 504 ms Atrial fibrillation Marked ST abnormality, possible inferior subendocardial injury Abnormal ECG When compared with ECG of 30-JAN-2023 04:30, Atrial fibrillation has replaced Sinus rhythm Vent. rate has increased BY [address] now depressed in Anterolateral leads T wave inversion more evident in Inferior leads T wave inversion now evident in Anterior leads Confirmed by Dakota Hyde ([id number]) on 02/02/2023 9:50:39 PM Referred By: REFERRED SELF Confirmed By:Dakota Hyde
--- NOTE | 2023-02-02 22:13 | Electrocardiogram Report ---
Test Reason : Blood Pressure : / mmHG Vent. Rate : 085 BPM Atrial Rate : 085 BPM P-R Int : 148 ms QRS Dur : 084 ms QT Int : 402 ms P-R-T Axes : 065 044 -75 degrees QTc Int : 478 ms Normal sinus rhythm Right atrial enlargement Prolonged QT Abnormal ECG When compared with ECG of 01-FEB-2023 23:14, (unconfirmed) Sinus rhythm has replaced Atrial fibrillation Vent. rate has decreased BY 57 BPM Confirmed by Dakota Hyde ([id number]) on 02/02/2023 10:13:20 PM Referred By: REFERRED SELF Confirmed By:Dakota Hyde
[2023-02-02] MEDS: ERTAPENEM SODIUM 1,000 MG in SYRINGE 0 ML IV SCH (22:16)
[2023-02-03] MEDS: INSULIN ASPART PER UNIT CHARGE SC SCH ×4 (00:07→18:08)
[2023-02-03] MEDS: HEPARIN SODIUM/DEXTROSE 25,000 UNITS/500 ML BAG IV SCH ×3 (00:26→16:35)
[2023-02-03] MEDS: METOPROLOL TARTRATE 1 MG/ML VIAL IV SCH ×3 (06:11→18:28)
[2023-02-03 06:47] LABS: Hematocrit (blood only) 32.9 % (37.0-47.0); Hemoglobin 10.2 g/dl (12.0-16.0); Mean Corpuscular Hemoglobin 28.2 pg (25.0-34.0); Mean Corpuscular Volume 90.9 fL (80.0-100.0); Mean Platelet Volume 10.3 fL (9.4-12.4); Nucleated RBC # (auto) 0.02 K/uL (0-0.12); Nucleated RBC % (auto) 0.1 %; Platelet Count 383 K/uL (130-400); RDW Coefficient of Variation 18.2 % (11.5-14.5); RDW Standard Deviation 58.7 fL (36.4-46.3); Red Blood Count 3.62 M/uL (4.20-5.40); White Blood Count 17.54 K/ul (4.8-10.8)
[2023-02-03 06:55] LABS: Albumin Level 2.9 gm/dl (3.4-5.0); BUN Creatinine Ratio 30.7 (10-20); Bilirubin,Total 0.5 mg/dl (0.2-1.0); Calcium 8.6 mg/dl (8.6-10.3); Creatinine Clr Calc Pharmacy 40.8 ml/min; Est GFR (African American) 48.5 ml/min; Est GFR (Non-African American) 41.8 ml/min; Potassium 5.5 mmol/L (3.5-5.1); Total Protein 7.3 gm/dl (6.0-8.3)
[2023-02-03 08:01] LABS: Partial Thromboplastin Time 56.7 Seconds (21.0-31.0)
[2023-02-03] MEDS: ACETAMINOPHEN 1,000 MG/100 ML VIAL IV PRN ×2 (08:39→16:31)
[2023-02-03] MEDS: SERTRALINE HCL 50 MG TABLET PO SCH (08:41)
[2023-02-03] MEDS: methIMAzole 5 MG TABLET PO SCH (08:42)
[2023-02-03] MEDS: AMIODARONE 200 MG TAB PO SCH (08:42)
[2023-02-03] MEDS: FUROSEMIDE 40 MG/4 ML VIAL IV SCH ×2 (08:43→16:25)
[2023-02-03] MEDS: MAGNESIUM OXIDE 400 MG TAB PO SCH (08:44)
--- NOTE | 2023-02-03 10:25 | Surgery Progress Note ---
Date of Service February 03, 2023 Assessment & Plan (1) Pancreatitis: Plan: Complex patient with concern for hemorrhagic pancreatitis on her most recent CT scan. It also appears she has a pancreatic leak given the increase in output from her drain after starting tube feeds. At this point we have exhausted capabilities at this facility for her complex pancreatitis and would recommend transfer to tertiary center. Transfer to [place] is pending bed availability. In the meantime would recommend PICC and TPN to give her nutrition, avoid enteral feedings. Surgery will follow peripherally, call with questions or concerns. Admission and Anticipated Discharge Date Admission Date: January 15, 2023 Subjective 72-year-old female known to service from severe cholangitis status post ERP and stent placement, status post subtotal cholecystectomy for gangrenous cholecystitis with resolved bile leak, and severe pancreatitis with recent drainage of pancreatic fluid collection. Output increased yesterday after starting tube feeds, CT scan revealed what appeared to be hemorrhagic pancreatitis. Awaiting transfer to [place]. Physical Exam Constitutional: WD/WN, vitals as above + ill appearing Gastrointestinal (Abdomen): normal bowel sounds, soft, nontender, no hepatosplenomegaly Inspection/Auscultation: + abdominal surgical drain present Results & Data Vital Signs (Past 12 Hours) Vital Signs Temp Pulse Pulse Resp BP Pulse Ox O2 Del Method 02/03/23 08:41 36.4 C L 93 H 20 116/76 99 Room Air 02/03/23 07:00 97 H 02/03/23 06:07 96 H 125/78 02/03/23 04:14 36.4 C L 96 H 18 122/75 99 Room Air 02/03/23 01:18 95 H 02/02/23 23:36 87 112/76 02/02/23 23:07 36.9 C 97 H 22 124/88 96 Room Air Laboratory Results Laboratory Results - last 24 hr 02/02/23 02/02/23 02/02/23 12:00 14:55 18:06 WBC RBC Hgb Hct MCV MCH MCHC RDW Std Deviation RDW Coeff of Mandy Plt Count MPV Absolute Nucleated RBC Nucleated RBC % (auto) APTT 51.3 H* PTT Ratio 1.8 Sodium Potassium Chloride Carbon Dioxide Anion Gap BUN Creatinine Est Cr Clr Drug Dosing Est GFR ( Amer) Est GFR (Non-Af Amer) BUN/Creatinine Ratio Glucose POC Glucose 190 H 106 H Calcium Total Bilirubin Direct Bilirubin AST ALT Alkaline Phosphatase Total Protein Albumin Lipase SARS-CoV-2 (PCR) 02/02/23 02/02/23 02/03/23 18:45 23:11 05:36 WBC RBC Hgb Hct MCV MCH MCHC RDW Std Deviation RDW Coeff of Mandy Plt Count MPV Absolute Nucleated RBC Nucleated RBC % (auto) APTT PTT Ratio Sodium 145 Potassium 5.5 H D Chloride 110 H Carbon Dioxide 24 Anion Gap 11 BUN 39 H Creatinine 1.27 H Est Cr Clr Drug Dosing 40.8 Est GFR ( Amer) 48.5 Est GFR (Non-Af Amer) 41.8 BUN/Creatinine Ratio 30.7 H Glucose 148 H POC Glucose 143 H Calcium 8.6 Total Bilirubin 0.5 Direct Bilirubin 0.0 AST 26 ALT 16 Alkaline Phosphatase 113 H Total Protein 7.3 Albumin 2.9 L Lipase 190 H SARS-CoV-2 (PCR) NEGATIVE 02/03/23 02/03/23 02/03/23 05:36 05:36 06:03 WBC 17.54 H RBC 3.62 L Hgb 10.2 L Hct 32.9 L MCV 90.9 MCH 28.2 MCHC 31.0 L RDW Std Deviation 58.7 H RDW Coeff of Mandy 18.2 H Plt Count 383 MPV 10.3 Absolute Nucleated RBC 0.02 Nucleated RBC % (auto) 0.1 APTT 56.7 H* PTT Ratio 2.0 Sodium Potassium Chloride Carbon Dioxide Anion Gap BUN Creatinine Est Cr Clr Drug Dosing Est GFR ( Amer) Est GFR (Non-Af Amer) BUN/Creatinine Ratio Glucose POC Glucose 167 H Calcium Total Bilirubin Direct Bilirubin AST ALT Alkaline Phosphatase Total Protein Albumin Lipase SARS-CoV-2 (PCR) Diagnostic Findings Personally reviewed and interpreted the CT scan from yesterday and agree with the assessment of persistent pancreatitis with necrosis, question of hemorrhagic pancreatitis but no obvious active bleeding. She also has some increase in size of some of the fluid collections in her abdomen. ABDOMEN AND PELVIS CT WITHOUT CONTRAST CT DOSE: 1202.29 mGy.cm HISTORY: Generalized abdominal pain. TECHNIQUE: Multiaxial CT images of the abdomen and pelvis were performed without contrast. A dose lowering technique was utilized adhering to the principles of ALARA. COMPARISON STUDY: Abdominal CT 01/26/2023. FINDINGS: The right pleural effusion has resolved. A small left pleural effusion has decreased in size. Consolidation within the left lower lobe has improved. This may represent atelectasis or a pneumonia. There are progressive patchy groundglass airspace opacities within the lung bases. No pneumoperitoneum. No pneumatosis. No acute fractures identified. There is a feeding tube terminating at the pylorus. Multiple common bile duct stents appear in good position. This likely accounts for the pneumobilia. The left perihepatic/subcapsular fluid collection has significantly decreased in size status post percutaneous drainage. The catheter remains in good position. There is only a small amount of loculated fluid remaining within the left perihepatic location. The adrenal glands are unremarkable. Bilateral nephrolithiasis. No hydronephrosis. No retroperitoneal lymphadenopathy. The bladder is unremarkable. Pelvic muscular atrophy again noted. The uterus and bilateral adnexa are unremarkable. Small amount of pelvic fluid is noted. This is not completely loculated at this time. Fluid-filled large and small bowel seen throughout the abdomen. No dilated loops of bowel to suggest an obstruction. Inflammatory change/edema adjacent to the hepatic flexure of the colon has slightly improved. The moderate sized perisplenic hematoma/fluid collection is stable to slightly decreased in size. This measures 12 x 7 cm, previously measuring 14 x 6 cm. The multiple loculated fluid collections within the left anterior abdomen have slightly increased in size. Dominant fluid collection on image 319 measures 7.0 x 5.6 cm. There is slight increase in size and increased density within the peripancreatic fluid collections compared to the prior study. This suggests blood products in the setting of hemorrhagic pancreatitis. This includes a new small hyperdense focus at the pancreatic tail on image 134 measuring 1.9 cm. The gallbladder is surgically absent. Gas and fluid within the gallbladder fossa is again noted. This suggests a residual cystic duct leak. IMPRESSION: 1. There is slight increase in size and increased density within the peripancreatic fluid collections compared to the prior study. This suggests blood products in the setting of hemorrhagic pancreatitis. 2. Inflammatory change/edema adjacent to the hepatic flexure of the colon has slightly improved. 3. The gallbladder is surgically absent. Gas and fluid within the gallbladder fossa is again noted. This suggests a residual cystic duct leak. 4. The right pleural effusion has resolved. A small left pleural effusion has decreased in size. 5. There are new patchy groundglass densities within the lung bases. This could represent congestive change or an atypical pneumonitis. 6. The feeding tube terminates at the pylorus. 7. The left perihepatic/subcapsular fluid collection has significantly decreased in size status post percutaneous drainage. The catheter remains in good position. There is only a small amount of loculated fluid remaining within the left perihepatic location. 8. The moderate sized perisplenic hematoma/fluid collection is stable to slightly decreased in size. 9. The multiple loculated fluid collections within the left anterior abdomen have slightly increased in size with the dominant fluid collection measuring 7.0 x 5.6 cm. 10. Small amount of pelvic fluid which is not completely loculated at this time. 11. Bilateral nephrolithiasis. 12. Additional findings as described above. PG Care Time/CCT Total # of Minutes Spent Total Time Spent with Patient: Total time spent is greater than 50% in coordination of care (as documented) at patient's floor/unit and/or counseling patient: Coding Level of Care Code 83808 SUB INP/OBS CARE 10/25MIN Diagnoses Pancreatitis K85.90
--- NOTE | 2023-02-03 11:35 | Nephrology Progress Note ---
Date of Service February 03, 2023 Assessment & Plan (1) Acute renal failure: Plan: nonoliguric ischemic ATN, stage 2, stable/improved after mgt of volume overload, acute respiratory failure Her baseline creatinine as recently as the middle of November 2022 was actually 0.9 . During mid November to mid December extended admission for cholangitis and pancreatitis with complications, she had acute renal failure requiring several treatments of intermittent hemodialysis, with last treatment January 01. Her renal function recovered sufficiently to stop hemodialysis. Her discharge creatinine was 1.8 on January 12. Her presenting creatinine this admission on January 15 was 2; she hovered in this range until 01/29, w/ slow downtrend to mid ones w/ purewick also incontinent of urine > out's not fully accurate now receiving no TF and strict NPO; on heparin IV w/ mild hyperkalemia >stopped K supplements -continue low dose lasix w/ goal of net 500 mL -800 mL negative on the day -Continue to monitor renal function with daily BMP Admission and Anticipated Discharge Date Admission Date: January 15, 2023 Subjective TF off b/c of worries about leak/worsening pancreatitis; pt tired, lots abd pain ON Review of Systems Review of Systems: All systems reviewed & are unremarkable except as noted in Subjective Physical Exam 2 Constitutional: well developed, + physical limitations (weak) and + frail appearing; no acute distress Eyes: EOM intact bilaterally ENMT: Ears: no external ear abnormality Nose: no external nose abnormality Mouth: + dry oral mucous membranes Neck: no nuchal rigidity Respiratory: normal respiratory effort Auscultation: + diminished lung sounds Cardiovascular: Rate/Rhythm: regular rhythm and + tachycardic Extremities: + edema (at most trace dependent) Gastrointestinal (Abdomen): Inspection/Auscultation: normal bowel sounds and + hypoactive bowel sounds Percussion/Palpation: + abdomen tender, + guarding and abdomen soft; abdomen not rigid Musculoskeletal: Extremities: strength 5/5 throughout Skin: no rashes, warm and dry Neurologic: mccurdy, fluent speech, no tremor Psychiatric: Orientation: oriented x 3; + not alert Results & Data Vital Signs (Past 12 Hours) Vital Signs Temp Pulse Pulse Resp BP Pulse Ox O2 Del Method 02/03/23 08:41 36.4 C L 93 H 20 116/76 99 Room Air 02/03/23 07:00 97 H 02/03/23 06:07 96 H 125/78 02/03/23 04:14 36.4 C L 96 H 18 122/75 99 Room Air 02/03/23 01:18 95 H 02/02/23 23:36 87 112/76 Laboratory Results 02/03/23 05:36 02/03/23 05:36
--- NOTE | 2023-02-03 11:40 | Communication Note ---
Date of Service: February 03, 2023 Patient telemetry reviewed. Remains in sinus rhythm without bradycardia or tachyarrhythmias. Continue current medications
--- NOTE | 2023-02-03 13:24 | Electrocardiogram Report ---
Test Reason : Blood Pressure : / mmHG Vent. Rate : 096 BPM Atrial Rate : 096 BPM P-R Int : 132 ms QRS Dur : 082 ms QT Int : 352 ms P-R-T Axes : 065 020 -69 degrees QTc Int : 444 ms Normal sinus rhythm Right atrial enlargement Abnormal ECG When compared with ECG of 02-FEB-2023 09:49, Slight imprvement in the degree of ST depression Confirmed by Larry Marr ([id number]) on 02/03/2023 1:23:32 PM Referred By: REFERRED SELF Confirmed By:Larry Marr
--- NOTE | 2023-02-03 14:58 | Hospitalist Progress Note ---
Date of Service February 03, 2023 Assessment & Plan (1) Septic shock: Plan: Patient was recently hospitalized for about a month during which she was managed for acute pancreatitis, acute cholangitis, septic shock, acute renal failure requiring dialysis briefly, paroxysmal A-fib. Underwent ERCP on 12/10 with removal of stones from the bile duct. Underwent lap adele with extensive lysis of adhesions on 12/10 by general surgery.Was discharged to [facility] facility and represented with abdominal and back pain. Septic Shock Was on Levophed which was weaned off on 01/17. Sources of sepsis: include intra-abdominal infection, surgical subhepatic drain in situ, recent UTI. Acute on chronic pancreatitis Intra-abdominal fluid collection-biliary leak, necrotic pancreatitis Perisplenic Hemorrhage --CT ABD: Redemonstration of the severe pancreatitis. This is similar to the prior study. Postoperative changes consistent with a recent cholecystectomy with a small amount of nonspecific perihepatic fluid and a small amount of pneumoperitoneum remaining. A right subhepatic percutaneous drainage catheter remains unchanged in position. The common bile duct stent appears in good position. There is associated pneumobilia. Small bilateral pleural effusions persist. No change in the patchy groundglass airspace opacities within the lungs. This may represent an atypical/viral pneumonitis. Fluid-filled nondilated loops of large and small bowel which may represent a gastroenteritis/diarrheal illness. Bilateral nephrolithiasis. No ureteral stones. No hydronephrosis. --Repeat CT:Findings consistent with severe acute pancreatitis. 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 Perisplenic hemorrhage, stable to slightly increased since prior CT. The perisplenic fluid collection has increased in size since prior CT. Irregularity of the spleen consistent with splenic injury. Increase in size of perihepatic and perigastric fluid collections with mass effect upon the stomach. The perihepatic fluid collection could be related to a bile leak or acute pancreatitis. Increase in gas within the cholecystectomy bed. This is nonspecific given indwelling surgical drain and common bile duct stent however a persistent biliary leak cannot be excluded. No significant change in a moderate left pleural effusion with left lower lobe atelectasis. Slight increase in small to moderate pelvic ascites. --EUS/ERCP 01/24 w/ evidence of ascites and evidence of persistent leak from remnant gallbladder s/p stent exchange and fibrin glue injection to the cystic duct --S/P ultrasound guided perihepatic fluid aspiration and placement of drain --Abd Fluid Cx: Enterococcus faecium -- Repeat abdominal fluid culture no growth --Blood cultures negative --Repeat CT 02/02/23:There is slight increase in size and increased density within the peripancreatic fluid collections compared to the prior study. This suggests blood products in the setting of hemorrhagic pancreatitis. Inflammatory change/edema adjacent to the hepatic flexure of the colon has slightly improved. The gallbladder is surgically absent. Gas and fluid within the gallbladder fossa is again noted. This suggests a residual cystic duct leak. The right pleural effusion has resolved. A small left pleural effusion has decreased in size. There are new patchy groundglass densities within the lung bases. This could represent congestive change or an atypical pneumonitis. The feeding tube terminates at the pylorus. 7. The left perihepatic/subcapsular fluid collection has significantly decreased in size status post percutaneous drainage. The catheter remains in good position. There is only a small amount of loculated fluid remaining within the left perihepatic location. The moderate sized perisplenic hematoma/fluid collection is stable to slightly decreased in size. The multiple loculated fluid collections within the left anterior abdomen have slightly increased in size with the dominant fluid collection measuring 7.0 x 5.6 cm. Small amount of pelvic fluid which is not completely loculated at this time. Bilateral nephrolithiasis. Appreciate ID, surgery, GI, IR input On IV daptomycin, Zosyn>> IV daptomycin and ertapenem: Discussed with ID today: Advised to continue current antibiotics IV PPN held due to volume overload status NG tube feeds held given worsening abd pain/peripancreatic leak Continue drain, until its approximately 10 cc or less per day --Repeat CT abdomen suggestive of hemorrhagic pancreatitis, increasing abdominal fluid collections--- GI, surgery suggested transfer to tertiary care facility for further management. May need tertiary center for advanced IR/pancreaticobiliary intervention. Discussed with [facility]--awaiting acceptance (Discussed with Dr. Ismael Zavala - GI, Dr. Orlando Santana- IR at [facility]) Accepting Physician:Dr. Dakota Puente at [facility]. . Plan to discharge to tertiary care facility when bed is available Consider PICC line placement tomorrow if remains hospitalized at our facility Acute respiratory failure with hypoxia Likely multifactorial secondary to A-fib RVR, Possible aspiration Left-sided pleural effusion/atelectasis --CXR:Multifocal airspace consolidation is unchanged from today's earlier examination. This could represent multifocal pneumonia and/or pulmonary edema. Clinical correlation would be required and radiographic follow-up to resolution is recommended. Left pleural effusion. -- Procalcitonin 0.79 Continue antibiotics as above Continue supplemental oxygen as needed Appreciate pulmonary input Aspiration precautions Continue IV diuresis per nephrology BiPAP as needed and at bedtime Mild hyperkalemia--held potassium supplements Paroxysmal atrial fibrillation with RVR Intermittent bradycardia On IV heparin for anticoagulation Continue IV metoprolol Plan to resume oral amiodarone 200 mg daily as able Currently in sinus Acute metabolic encephalopathy --CT Head:1. No acute intracranial hemorrhage. No evidence for acute territorial infarct. Multiple periventricular hypodense foci, the largest of which is a 2 cm left frontal lobe focus. These may reflect small vessel disease. However, age indeterminate infarcts, likely subacute to chronic, could appear similar. -- Reorient frequently to minimize delirium Monitor Acute blood loss anemia Likely multifactorial: Vaginal Bleeding/perisplenic hemorrhage S/P PRBCs Monitor H&H and transfuse as needed Postmenopausal vaginal bleeding Endometrial thickening --Pelvic USD:Pathologic thickening of the postmenopausal endometrium. Correlation with tissue sampling recommended. Pelvic ascites again noted. Nonvisualization of the ovaries. --Appreciate [employer] Input Needs outpatient D&C Anticoagulation can be restarted per OBGYN As per Prior Provider Facial Rash Likely due to rosacea Improved Hypertension Continue current medications Monitor (2) Hyperthyroidism: Plan: As per prior provider Patient on methimazole which is known to have a side effect of pancreatitis. However, will cont for now as this pancreatitis is improved clinically and there are more likely causes/contributing factors. (3) Pleural effusion, left: (4) Acute renal failure: Plan: Nonoliguric ischemic ATN Volume overload status Intermittent hemodialysis last admission Cr 1.8 on discharge last admission Continue IV Lasix Monitor electrolytes and replace as needed Monitor renal function Appreciate nephrology input Cr 1.2 today (5) Acute pancreatitis: Plan: Bedsores Has bilateral stasis to sacral decubitus Appreciate wound care management Plan Other significant medical conditions Depression Multiple sclerosis Continue home medications as able DVT Px Eliquis initially held due to splenic hemorrhage IV heparin Code Status Full code for now Consulted Palliative to address goals of care Disposition [facility] when bed available Admission and Anticipated Discharge Date Admission Date: January 15, 2023 Subjective Patient is seen and examined at bedside States feeling better today In sinus rhythm Had loose stools noted by RN Denies any significant abdominal pain Also denies any chest pain, dyspnea, dizziness Discussed with patient's family at bedside Review of Systems Review of Systems: All systems reviewed & are unremarkable except as noted in Subjective Physical Exam Physical Exam: Physical Exam: Vitals signs as noted above General Appearance:Moderately built and nourished, no distress, Ill appearing, Lethargic Head: normocephalic, Atraumatic Eyes: normal inspection, EOMI Neck: supple, Trachea midline Respiratory/Chest: Decreased breath sounds, CTA, No accessory muscle use Cardiovascular: S1, S2, No murmur Abdomen/GI:Soft, non tender, +Abd Drain, +Surgical dressing, Bowel sounds present Extremities/Musculoskeletal:normal inspection, +generalized edema Neurologic/Psych:Lethargic and drowsy, unable to perform complete Neuro exam Skin: normal color, warm Results & Data Results & Data Vital Signs (Past 12 Hours) Vital Signs Temp Pulse Pulse Resp BP BP Pulse Ox 02/03/23 12:32 90 122/90 02/03/23 12:11 36.5 C 94 H 17 122/90 100 02/03/23 08:41 36.4 C L 93 H 20 116/76 99 02/03/23 07:00 97 H 02/03/23 06:07 96 H 125/78 02/03/23 04:14 36.4 C L 96 H 18 122/75 99 O2 Del Method 02/03/23 12:32 02/03/23 12:11 Room Air 02/03/23 08:41 Room Air 02/03/23 07:00 02/03/23 06:07 02/03/23 04:14 Room Air (5) Acute pancreatitis Acute pancreatitis complication: unspecified Pancreatitis type: unspecified pancreatitis type Qualified Code(s): K85.90 - Acute pancreatitis without necrosis or infection, unspecified
[2023-02-03] MEDS: DAPTOmycin 700 MG in SYRINGE 0 ML IV SCH (16:25)
[2023-02-03] MEDS ORDERED: METOPROLOL TARTRATE 1 MG/ML VIAL IV STA (20:50)
[2023-02-03] MEDS ORDERED: MAGNESIUM SULFATE / D5W 1 GM/100 ML BAG IV ONE (20:50)
[2023-02-03] MEDS ORDERED: HYDROmorphone INJ 0.5 MG/0.5 ML SYR IV STA (20:59)
[2023-02-03] MEDS ORDERED: ALBUMIN 25% 100 mL 25 GM/100 ML VIAL IV ONE (20:59)
[2023-02-03] MEDS ORDERED: HOLD ORDER ONE (21:00)
[2023-02-03 21:32] LABS: BUN Creatinine Ratio 33.8 (10-20); Calcium 8.8 mg/dl (8.6-10.3); Est GFR (African American) 45.8 ml/min; Est GFR (Non-African American) 39.6 ml/min; Magnesium 1.9 mg/dl (1.7-2.4); Potassium 4.5 mmol/L (3.5-5.1)
[2023-02-03 21:45] LABS: Basophils # (auto) 0.04 K/uL (0-0.2); Basophils % (auto) 0.3 %; Eosinophils # (auto) 0.58 K/uL (0-0.50); Eosinophils % (auto) 4.1 %; Hematocrit (blood only) 29.1 % (37.0-47.0); Hemoglobin 9.1 g/dl (12.0-16.0); Immature Granulocytes # (auto) 0.13 K/uL (0.01-0.20); Immature Granulocytes % (auto) 0.9 %; Lymphocytes # (auto) 3.23 K/uL (1.2-3.4); Lymphocytes % (auto) 22.8 %; Mean Corpuscular Hemoglobin 28.4 pg (25.0-34.0); Mean Corpuscular Hgb Conc 31.3 g/dL (32.0-36.0); Mean Corpuscular Volume 90.9 fL (80.0-100.0); Mean Platelet Volume 9.7 fL (9.4-12.4); Monocytes # (auto) 0.84 K/uL (0.11-0.59); Monocytes % (auto) 5.9 %; Neutrophils # (auto) 9.34 K/uL (1.40-6.50); Platelet Count 394 K/uL (130-400); RDW Coefficient of Variation 18.5 % (11.5-14.5); RDW Standard Deviation 58.9 fL (36.4-46.3); White Blood Count 14.16 K/ul (4.8-10.8)
[2023-02-04] MEDS: INSULIN ASPART PER UNIT CHARGE SC SCH ×2 (00:01→05:43)
[2023-02-04] MEDS: METOPROLOL TARTRATE 1 MG/ML VIAL IV SCH ×2 (00:04→05:45)
[2023-02-04] MEDS: ERTAPENEM SODIUM 1,000 MG in SYRINGE 0 ML IV SCH (00:05)
--- NOTE | 2023-02-04 02:07 | Communication Note ---
Date of Service: February 04, 2023 Patient with worsening abdominal pain as per RN. AP Worsening abdominal pain Hemorrhagic pancreatitis on CT 02/02 Ongoing IV heparin for A-fib thromboembolic prophylaxis H&H now Repeat CT abdomen pelvis Hold IV heparin for now until CT results known.
[2023-02-04] MEDS ORDERED: HYDROmorphone INJ 0.5 MG/0.5 ML SYR IV PRN (02:23)
--- NOTE | 2023-02-04 04:06 | CT Scan Report ---
Exam(s): CT ABDOMEN + PELVIS Without Contrast EXAM: CT Abdomen and Pelvis Without Intravenous Contrast CLINICAL HISTORY: Reason for exam: worsening abd pain. TECHNIQUE: Axial computed tomography images of the abdomen and pelvis without intravenous contrast. CTDI is 25.07 mGy and DLP is 1268.51 mGy-cm. Automated exposure control was utilized for the study. A dose lowering technique was utilized adhering to the principles of ALARA. COMPARISON: CT abdomen pelvis 02/02/2023 FINDINGS: ABDOMEN: Liver: Unremarkable. Gallbladder and bile ducts: Biliary stents in place. Gas fills the gallbladder and pneumobilia. Pancreas: Redemonstrated findings of pancreatitis. Small amount of hemorrhage. Potential necrosis in the head. Spleen: Unremarkable. Adrenals: Unremarkable. Kidneys and ureters: Nonobstructing stones in the kidneys. Stomach and bowel: Unremarkable. PELVIS: Appendix: No findings to suggest acute appendicitis. Bladder: Unremarkable. Reproductive: Unremarkable as visualized. ABDOMEN and PELVIS: Intraperitoneal space: Small amount of ascites unchanged. No free air. Bones/joints: No acute fracture. Soft tissues: Multiple pseudocysts within the left upper quadrant and tracking along the left ventral abdominal wall as well as around the spleen appear unchanged. Vasculature: Unremarkable. Lymph nodes: Unremarkable. Tubes, lines and devices: There is a pigtail catheter terminating anterior to the left hepatic lobe. No significant fluid collection here. Correlate with drain output. IMPRESSION: 1. Redemonstrated findings of pancreatitis. Small amount of hemorrhage. Potential necrosis in the head. 2. Multiple pseudocysts within the left upper quadrant and tracking along the left ventral abdominal wall as well as around the spleen appear unchanged. 3. Biliary stents in place. Gas fills the gallbladder and pneumobilia. 4. Small amount of ascites unchanged. Electronically signed by: Darryl Jenkins MD 02/04/23 04:05 AM
[2023-02-04 06:13] LABS: Basophils # (auto) 0.02 K/uL (0-0.2); Basophils % (auto) 0.1 %; Eosinophils # (auto) 0.66 K/uL (0-0.50); Eosinophils % (auto) 4.7 %; Hematocrit (blood only) 27.3 % (37.0-47.0); Hemoglobin 8.3 g/dl (12.0-16.0); Immature Granulocytes # (auto) 0.08 K/uL (0.01-0.20); Immature Granulocytes % (auto) 0.6 %; Lymphocytes # (auto) 2.57 K/uL (1.2-3.4); Lymphocytes % (auto) 18.4 %; Mean Corpuscular Hemoglobin 28.1 pg (25.0-34.0); Mean Corpuscular Hgb Conc 30.4 g/dL (32.0-36.0); Mean Corpuscular Volume 92.5 fL (80.0-100.0); Mean Platelet Volume 9.9 fL (9.4-12.4); Monocytes % (auto) 5.7 %; Neutrophils # (auto) 9.82 K/uL (1.40-6.50); Neutrophils % (auto) 70.5 %; Platelet Count 392 K/uL (130-400); RDW Coefficient of Variation 18.6 % (11.5-14.5); RDW Standard Deviation 60.5 fL (36.4-46.3); Red Blood Count 2.95 M/uL (4.20-5.40); White Blood Count 13.95 K/ul (4.8-10.8)
[2023-02-04 06:47] LABS: BUN Creatinine Ratio 32.1 (10-20); Calcium 8.4 mg/dl (8.6-10.3); Creatinine Clr Calc Pharmacy 38.6 ml/min; Est GFR (African American) 45.4 ml/min; Est GFR (Non-African American) 39.2 ml/min; Magnesium 2.2 mg/dl (1.7-2.4); Potassium 4.1 mmol/L (3.5-5.1)
[2023-02-04] MEDS ORDERED: ACETAMINOPHEN 1,000 MG/100 ML VIAL IV PRN (08:03)
--- NOTE | 2023-02-04 09:20 | Surgery Progress Note ---
Date of Service February 04, 2023 Assessment & Plan (1) Pancreatitis: Plan: 02/04/2023 CT relatively unchanged from 02/02. Continue current management with possible PICC placement and TPN. Continue to recommend transfer to [facility], which may happen later today. 02/03/2023 Complex patient with concern for hemorrhagic pancreatitis on her most recent CT scan. It also appears she has a pancreatic leak given the increase in output from her drain after starting tube feeds. At this point we have exhausted capabilities at this facility for her complex pancreatitis and would recommend transfer to tertiary center. Transfer to [facility] is pending bed availability. In the meantime would recommend PICC and TPN to give her nutrition, avoid enteral feedings. Surgery will follow peripherally, call with questions or concerns. Admission and Anticipated Discharge Date Admission Date: January 15, 2023 Supervising Physician Co-Signing Physician Notes Patient seen and examined, labs and imaging personally reviewed and interpreted, agree with above. Some increased abdominal pain overnight, repeat CT essentially unchanged. Awaiting transport to [facility] for advanced ERCP/IR. Subjective 72-year-old female known to service from severe cholangitis status post ERP and stent placement, status post subtotal cholecystectomy for gangrenous cholecystitis with resolved bile leak, and severe pancreatitis with recent drainage of pancreatic fluid collection. Patient reported increased abdominal pain yesterday evening and CT scan was repeated. Impression shows: Continued findings of pancreatitis. Small amount of hemorrhage. Potential necrosis in the head. 2. Multiple pseudocysts within the left upper quadrant and tracking along the left ventral abdominal wall as well as around the spleen appear unchanged. 3. Biliary stents in place. Gas fills the gallbladder and pneumobilia. 4. Small amount of ascites unchanged. Physical Exam Constitutional: WD/WN, vitals as above + ill appearing Gastrointestinal (Abdomen): normal bowel sounds, soft, nontender, no hepatosplenomegaly Inspection/Auscultation: + abdominal surgical drain present Results & Data Vital Signs (Past 12 Hours) Vital Signs Temp Pulse Pulse Resp BP Pulse Ox O2 Del Method 02/04/23 07:59 36.5 C 80 18 142/78 H 100 BiPAP 02/04/23 05:50 76 118/70 02/04/23 05:45 88 117/76 02/04/23 03:15 90 31 H 54 L 02/04/23 03:00 36.4 C L 85 18 137/77 97 BiPAP 02/04/23 01:37 87 02/04/23 00:09 82 140/79 02/03/23 23:51 36.4 C L 87 18 129/61 100 BiPAP 02/03/23 22:50 91 H 30 H 98 02/03/23 21:41 91 H 101/75 02/03/23 21:28 93 H 108/80 FiO2 02/04/23 07:59 02/04/23 05:50 02/04/23 05:45 02/04/23 03:15 35 02/04/23 03:00 02/04/23 01:37 02/04/23 00:09 02/03/23 23:51 02/03/23 22:50 35 02/03/23 21:41 02/03/23 21:28 PG Care Time/CCT Total # of Minutes Spent Total Time Spent with Patient: Total time spent is greater than 50% in coordination of care (as documented) at patient's floor/unit and/or counseling patient: Coding Level of Care Code 55147 SUB INP/OBS CARE 10/25MIN Diagnoses Pancreatitis K85.90
[2023-02-04] MEDS: AMIODARONE 200 MG TAB PO SCH (09:42)
[2023-02-04] MEDS: FUROSEMIDE 40 MG/4 ML VIAL IV SCH (09:43)
[2023-02-04] MEDS: SERTRALINE HCL 50 MG TABLET PO SCH (09:43)
[2023-02-04] MEDS: methIMAzole 5 MG TABLET PO SCH (09:43)
[2023-02-04] MEDS: MAGNESIUM OXIDE 400 MG TAB PO SCH (09:45)
--- NOTE | 2023-02-04 10:44 | Hospitalist Progress Note ---
Date of Service February 04, 2023 Assessment & Plan (1) Septic shock: Plan: Patient was recently hospitalized for about a month during which she was managed for acute pancreatitis, acute cholangitis, septic shock, acute renal failure requiring dialysis briefly, paroxysmal A-fib. Underwent ERCP on 12/10 with removal of stones from the bile duct. Underwent lap adele with extensive lysis of adhesions on 12/10 by general surgery.Was discharged to shelter facility and represented with abdominal and back pain. Septic Shock Was on Levophed which was weaned off on 01/17. Sources of sepsis: include intra-abdominal infection, surgical subhepatic drain in situ, recent UTI. Acute on chronic pancreatitis Intra-abdominal fluid collection-biliary leak, necrotic pancreatitis Perisplenic Hemorrhage --CT ABD: Redemonstration of the severe pancreatitis. This is similar to the prior study. Postoperative changes consistent with a recent cholecystectomy with a small amount of nonspecific perihepatic fluid and a small amount of pneumoperitoneum remaining. A right subhepatic percutaneous drainage catheter remains unchanged in position. The common bile duct stent appears in good position. There is associated pneumobilia. Small bilateral pleural effusions persist. No change in the patchy groundglass airspace opacities within the lungs. This may represent an atypical/viral pneumonitis. Fluid-filled nondilated loops of large and small bowel which may represent a gastroenteritis/diarrheal illness. Bilateral nephrolithiasis. No ureteral stones. No hydronephrosis. --Repeat CT:Findings consistent with severe acute pancreatitis. 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 Perisplenic hemorrhage, stable to slightly increased since prior CT. The perisplenic fluid collection has increased in size since prior CT. Irregularity of the spleen consistent with splenic injury. Increase in size of perihepatic and perigastric fluid collections with mass effect upon the stomach. The perihepatic fluid collection could be related to a bile leak or acute pancreatitis. Increase in gas within the cholecystectomy bed. This is nonspecific given indwelling surgical drain and common bile duct stent however a persistent biliary leak cannot be excluded. No significant change in a moderate left pleural effusion with left lower lobe atelectasis. Slight increase in small to moderate pelvic ascites. --EUS/ERCP 01/24 w/ evidence of ascites and evidence of persistent leak from remnant gallbladder s/p stent exchange and fibrin glue injection to the cystic duct --S/P ultrasound guided perihepatic fluid aspiration and placement of drain --Abd Fluid Cx: Enterococcus faecium -- Repeat abdominal fluid culture no growth --Blood cultures negative --Repeat CT 02/02/23:There is slight increase in size and increased density within the peripancreatic fluid collections compared to the prior study. This suggests blood products in the setting of hemorrhagic pancreatitis. Inflammatory change/edema adjacent to the hepatic flexure of the colon has slightly improved. The gallbladder is surgically absent. Gas and fluid within the gallbladder fossa is again noted. This suggests a residual cystic duct leak. The right pleural effusion has resolved. A small left pleural effusion has decreased in size. There are new patchy groundglass densities within the lung bases. This could represent congestive change or an atypical pneumonitis. The feeding tube terminates at the pylorus. 7. The left perihepatic/subcapsular fluid collection has significantly decreased in size status post percutaneous drainage. The catheter remains in good position. There is only a small amount of loculated fluid remaining within the left perihepatic location. The moderate sized perisplenic hematoma/fluid collection is stable to slightly decreased in size. The multiple loculated fluid collections within the left anterior abdomen have slightly increased in size with the dominant fluid collection measuring 7.0 x 5.6 cm. Small amount of pelvic fluid which is not completely loculated at this time. Bilateral nephrolithiasis. Appreciate ID, surgery, GI, IR input On IV daptomycin, Zosyn>> IV daptomycin and ertapenem: Discussed with ID today: Advised to continue current antibiotics IV PPN held due to volume overload status NG tube feeds held given worsening abd pain/peripancreatic leak Continue drain, until its approximately 10 cc or less per day --Repeat CT abdomen suggestive of hemorrhagic pancreatitis, increasing abdominal fluid collections--- GI, surgery suggested transfer to tertiary care facility for further management. May need tertiary center for advanced IR/pancreaticobiliary intervention. Discussed with [facility]--awaiting acceptance (Discussed with Dr. Ismael Zavala - GI, Dr. Orlando Santana- IR at [facility]) Accepting Physician:Dr. Dakota Puente at [facility]. . --CT ABD: Redemonstrated findings of pancreatitis. Small amount of hemorrhage. Potential necrosis in the head. Multiple pseudocysts within the left upper quadrant and tracking along the left ventral abdominal wall as well as around the spleen appear unchanged. Biliary stents in place. Gas fills the gallbladder and pneumobilia. Small amount of ascites unchanged. --Leukocytosis trending down Plan to discharge to tertiary care facility today Acute respiratory failure with hypoxia Likely multifactorial secondary to A-fib RVR, Possible aspiration Left-sided pleural effusion/atelectasis --CXR:Multifocal airspace consolidation is unchanged from today's earlier examination. This could represent multifocal pneumonia and/or pulmonary edema. Clinical correlation would be required and radiographic follow-up to resolution is recommended. Left pleural effusion. -- Procalcitonin 0.79 Continue antibiotics as above Continue supplemental oxygen as needed Appreciate pulmonary input Aspiration precautions Continue IV diuresis per nephrology BiPAP as needed and at bedtime Mild hyperkalemia--Resolved Paroxysmal atrial fibrillation with RVR Intermittent bradycardia On IV heparin for anticoagulation Continue IV metoprolol Resumed oral amiodarone 200 mg daily Currently in sinus Acute metabolic encephalopathy --CT Head:1. No acute intracranial hemorrhage. No evidence for acute territorial infarct. Multiple periventricular hypodense foci, the largest of which is a 2 cm left frontal lobe focus. These may reflect small vessel disease. However, age indeterminate infarcts, likely subacute to chronic, could appear similar. -- Reorient frequently to minimize delirium Monitor Acute blood loss anemia Likely multifactorial: Vaginal Bleeding/perisplenic hemorrhage S/P PRBCs Monitor H&H and transfuse as needed Postmenopausal vaginal bleeding Endometrial thickening --Pelvic USD:Pathologic thickening of the postmenopausal endometrium. Correlation with tissue sampling recommended. Pelvic ascites again noted. Nonvisualization of the ovaries. --Appreciate [employer] Input Needs outpatient D&C Anticoagulation can be restarted per OBGYN As per Prior Provider Facial Rash Likely due to rosacea Improved Hypertension Continue current medications Monitor (2) Hyperthyroidism: Plan: As per prior provider Patient on methimazole which is known to have a side effect of pancreatitis. However, will cont for now as this pancreatitis is improved clinically and there are more likely causes/contributing factors. (3) Pleural effusion, left: (4) Acute renal failure: Plan: Nonoliguric ischemic ATN Volume overload status Intermittent hemodialysis last admission Cr 1.8 on discharge last admission Continue IV Lasix Monitor electrolytes and replace as needed Monitor renal function Appreciate nephrology input Cr 1.3 today (5) Acute pancreatitis: Plan: Bedsores Has bilateral stasis to sacral decubitus Appreciate wound care management Plan Other significant medical conditions Depression Multiple sclerosis Continue home medications as able DVT Px Eliquis initially held due to splenic hemorrhage IV heparin--Held Code Status Full code for now Consulted Palliative to address goals of care Disposition [facility] Fernandez today Admission and Anticipated Discharge Date Admission Date: January 15, 2023 Subjective Patient is seen and examined at bedside States having some abdominal pain this morning Currently in sinus rhythm Denies any chest pain, dyspnea, dizziness Discussed with patient's family at bedside Had afib rvr overnight Plan to discharge to Tertiary care hospital today Review of Systems Review of Systems: All systems reviewed & are unremarkable except as noted in Subjective Physical Exam Physical Exam: Physical Exam: Vitals signs as noted above General Appearance:Moderately built and nourished, no distress, Ill appearing, Lethargic Head: normocephalic, Atraumatic Eyes: normal inspection, EOMI Neck: supple, Trachea midline Respiratory/Chest: Decreased breath sounds, CTA, No accessory muscle use Cardiovascular: S1, S2, No murmur Abdomen/GI:Soft, non tender, +Abd Drain, +Surgical dressing, Bowel sounds present Extremities/Musculoskeletal:normal inspection, +generalized edema Neurologic/Psych:Lethargic and drowsy, unable to perform complete Neuro exam Skin: normal color, warm Results & Data Results & Data Vital Signs (Past 12 Hours) Vital Signs Temp Pulse Pulse Resp BP Pulse Ox O2 Del Method 02/04/23 08:00 91 H 02/04/23 07:59 36.5 C 80 18 142/78 H 100 BiPAP 02/04/23 05:50 76 118/70 02/04/23 05:45 88 117/76 02/04/23 03:15 90 31 H 54 L 02/04/23 03:00 36.4 C L 85 18 137/77 97 BiPAP 02/04/23 01:37 87 02/04/23 00:09 82 140/79 02/03/23 23:51 36.4 C L 87 18 129/61 100 BiPAP 02/03/23 22:50 91 H 30 H 98 FiO2 02/04/23 08:00 02/04/23 07:59 02/04/23 05:50 02/04/23 05:45 02/04/23 03:15 35 02/04/23 03:00 02/04/23 01:37 02/04/23 00:09 02/03/23 23:51 02/03/23 22:50 35 Laboratory Results Short CBC 02/03/23 02/04/23 Range/Units 21:33 05:31 WBC 14.16 H 13.95 H (4.8-10.8) K/ul Hgb 9.1 L 8.3 L (12.0-16.0) g/dl Hct 29.1 L 27.3 L (37.0-47.0) % Plt Count 394 392 (130-400) K/uL BMP 02/03/23 02/04/23 20:55 05:31 Sodium 140 145 Potassium 4.5 4.1 Chloride 107 109 H Carbon Dioxide 21 27 BUN 45 H 43 H Creatinine 1.33 H 1.34 H Glucose 154 H 137 H Calcium 8.8 8.4 L (5) Acute pancreatitis Acute pancreatitis complication: unspecified Pancreatitis type: unspecified pancreatitis type Qualified Code(s): K85.90 - Acute pancreatitis without necrosis or infection, unspecified
--- NOTE | 2023-02-04 11:00 | Discharge Summary ---
Date of Service February 04, 2023 Admission HPI Per Admitting Provider CHIEF COMPLAINT: Severe sepsis. HISTORY OF PRESENT ILLNESS: A 72-year-old female with past medical history significant for obesity, hypertension, anxiety, chronic neurogenic bladder, osteoporosis, MS as per used to ambulate with a walker before last hospitalization. She was admitted from 12/09/2022 until 12/12/2022 and discharged on 01/12/2023 to [facility]. During last admission, she had pancreatitis. She underwent ERCP with stent placement and also cholecystectomy. The patient was noted to have acute on chronic cholecystitis. Her postoperative course was complicated with biliary leak. She had a MIMI drain in place, which she is still in there. She also developed SAMMY during last hospitalization and requiring dialysis,SAMMY thought to be from sepsis and IV contrast and medications.At discharge kidney function improved and not requiring dialysis The patient was complaining of back pain and belly pain yesterday in the senior living and the lab work was done and was abnormal and sent in here. The patient is tachycardic, hypotensive in the ER. White count is 34, hemoglobin 10.7, creatinine is 2.3, it was 1.7 at the time of discharge. Procalcitonin 0.9. Lipase 287. COVID negative. CT abdomen and pelvis showing severe acute pancreatitis similar to 12/31/2022. Peripancreatic fluid collections are suboptimally evaluated without IV contrast use. Fluid-filled structures are again noted with portal hypertension, possibly representing residual gallbladder versus postoperative fluid collection. Common bile duct stent in satisfactory position . Also found to have moderate left pleural effusion and increased size with progressive left basilar consolidation suggestive of atelectasis versus pneumonia. he also has decubitus ulcers. Evaluated by Surgery and doesn't think patient has acute abdomen or peritonitis. . Last admission, urine culture grew Enterococcus and Pseudomonas. She was discharged home on Levaquin.The patient's in the room,worried about decubitus ulcer. As per , she was not at all ambulating since discharge. The patient is alert and oriented to name and place, could tell her date of , but could not tell today's date, could tell today's month, but could not tell the year. She has dry mouth. Currently, denies any headache. No blurred visions, no runny nose, no sore throat, no cough. says she does coughing sometimes. Denies any chest pain or shortness of breath. Denies any abdominal pain at this time. No nausea at this time. She is incontinence with bowel and bladder as per the .She is tachycardic and hypotensive even after aggressive fluids. Admission Exam Per Admitting Provider PHYSICAL EXAMINATION: GENERAL: The patient is alert and awake, oriented to name and place. HEENT: Pupils equal, round and reactive to light. No facial droop seen. Oral mucosa dry. NECK: No neck masses. No JVD seen. CARDIOVASCULAR: S1 and S2 heard, tachycardia. No murmurs. RESPIRATORY SYSTEM: Normal AP diameter. Mild tachypnea. No wheezing. No crackles. ABDOMEN: Soft, bowel sounds present, nontender, no distention. MIMI drain seen. There is no erythema, tenderness at the site. CENTRAL NERVOUS SYSTEM: Alert and oriented to name and place. Obeys simple commands. No facial droop. Speech is okay. Moves extremities. EXTREMITIES: No edema or erythema seen. Principal Diagnosis Hemorrhagic pancreatitis Biliary leak Peripancreatic fluid collection/pseudocyst Atypical pneumonitis Perihepatic fluid collection Loculated left anterior abdominal fluid collections Perisplenic hematoma Nonoliguric ischemic ATN Septic Shock--Resolved Acute respiratory failure with hypoxia--Resolved Paroxysmal atrial fibrillation with RVR Acute metabolic encephalopathy--Improved Discharge Data Allergies Allergy/AdvReac Type Severity Reaction Status Date / Time No Known Allergies Allergy Unverified 01/15/23 17:50 Consultations 01/15/23 19:08 Consult General Surgery Stat 01/15/23 19:19 ED Decision to Admit Stat 01/15/23 23:35 Consult Merchant Miller Routine 01/16/23 10:43 Consult Gastroenterology Routine 01/18/23 11:05 Consult Nephrology Routine 01/18/23 11:17 Consult Physician Routine 01/20/23 08:35 Consult Infectious Diseases Routine 01/29/23 07:34 Consult Gynecology Routine 01/30/23 08:00 Consult Cardiology Routine 01/31/23 09:31 Consult Pulmonology Routine 01/31/23 15:21 Consult Palliative Care Routine 02/02/23 19:20 Burn CD for patient Routine Laboratory Results WBC 13.95 K/ul (4.8-10.8) H 02/04/23 05:31 RBC 2.95 M/uL (4.20-5.40) L 02/04/23 05:31 Hgb 8.3 g/dl (12.0-16.0) L 02/04/23 05:31 Hct 27.3 % (37.0-47.0) L 02/04/23 05:31 MCV 92.5 fL (80.0-100.0) 02/04/23 05:31 MCH 28.1 pg (25.0-34.0) 02/04/23 05:31 MCHC 30.4 g/dL (32.0-36.0) L 02/04/23 05:31 RDW Std Deviation 60.5 fL (36.4-46.3) H 02/04/23 05:31 RDW Coeff of Mandy 18.6 % (11.5-14.5) H 02/04/23 05:31 Plt Count 392 K/uL (130-400) 02/04/23 05:31 MPV 9.9 fL (9.4-12.4) 02/04/23 05:31 Immature Gran % (Auto) 0.6 % 02/04/23 05:31 Neut % (Auto) 70.5 % 02/04/23 05:31 Lymph % (Auto) 18.4 % 02/04/23 05:31 Sargent % (Auto) 5.7 % 02/04/23 05:31 Eos % (Auto) 4.7 % 02/04/23 05:31 Baso % (Auto) 0.1 % 02/04/23 05:31 Reticulocyte % (Auto) 2.3 % (0.5-2.0) H 01/18/23 11:18 Neut # (Auto) 9.82 K/uL (1.40-6.50) H 02/04/23 05:31 Lymph # (Auto) 2.57 K/uL (1.2-3.4) 02/04/23 05:31 Sargent # (Auto) 0.80 K/uL (0.11-0.59) H 02/04/23 05:31 Eos # (Auto) 0.66 K/uL (0-0.50) H 02/04/23 05:31 Baso # (Auto) 0.02 K/uL (0-0.2) 02/04/23 05:31 Reticulocyte # 0.07 10^6/uL (0.02-0.10) 01/18/23 11:18 Immature Gran # (Auto) 0.08 K/uL (0.01-0.20) 02/04/23 05:31 Absolute Nucleated RBC 0.02 K/uL (0-0.12) 02/03/23 05:36 Nucleated RBC % (auto) 0.1 % 02/03/23 05:36 Neutrophils % (Manual) 61 % 01/15/23 16:49 Lymphocytes % (Manual) 4 % 01/15/23 16:49 Monocytes % (Manual) 4 % 01/15/23 16:49 Eosinophils % (Manual) 2 % 01/15/23 16:49 Neutrophils # (Manual) 20.84 K/uL (1.40-6.50) H 01/15/23 16:49 Total Absolute Neuts 20.84 K/uL (1.4-6.5) H 01/15/23 16:49 Lymphocytes # (Manual) 1.37 K/uL (1.2-3.4) 01/15/23 16:49 Total Abs Lymphocytes 11.28 K/uL (1.2-3.4) H 01/15/23 16:49 Monocytes # (Manual) 1.37 K/uL (0.11-0.59) H 01/15/23 16:49 Eosinophils # (Manual) 0.68 K/uL (0-0.50) H 01/15/23 16:49 Large Granular Lymphs 29 % 01/15/23 16:49 # Lrg Granular Lymphs 9.91 K/uL 01/15/23 16:49 Polychromasia 1+ 01/31/23 03:11 Spherocytes 1+ 01/25/23 06:35 Echinocytes 2+ 01/16/23 05:08 Acanthocytes (Spur) 2+ 01/17/23 05:06 Rouleaux 3+ 01/28/23 06:14 PT 12.4 Seconds (9.0-12.0) H 01/24/23 05:44 INR 1.1 (0.9-1.1) 01/24/23 05:44 APTT 56.7 Seconds (21.0-31.0) H* 02/03/23 05:36 PTT Ratio 2.0 02/03/23 05:36 ABG pH 7.59 (7.35-7.45) H* 01/30/23 22:48 ABG pCO2 26 mmHg (35-46) L 01/30/23 22:48 ABG pO2 59 mmHg (80-95) L 01/30/23 22:48 ABG HCO3 25 mmol/L (19-24) H 01/30/23 22:48 ABG O2 Saturation 95.7 % (90-95) H 01/30/23 22:48 ABG Base Excess 4.3 mEq/L (-9-1.8) H 01/30/23 22:48 [place] Test Pos (Pos) 01/30/23 22:48 Oxygen Given 2 01/30/23 22:48 Sodium 145 mmol/L (136-145) 02/04/23 05:31 Potassium 4.1 mmol/L (3.5-5.1) 02/04/23 05:31 Chloride 109 mmol/L (98-107) H 02/04/23 05:31 Carbon Dioxide 27 mmol/L (21-32) 02/04/23 05:31 Anion Gap 9 (3-11) 02/04/23 05:31 BUN 43 mg/dl (6-23) H 02/04/23 05:31 Creatinine 1.34 mg/dl (0.6-1.2) H 02/04/23 05:31 Est Cr Clr Drug Dosing 38.6 ml/min 02/04/23 05:31 Est GFR ( Amer) 45.4 ml/min 02/04/23 05:31 Est GFR (Non-Af Amer) 39.2 ml/min 02/04/23 05:31 BUN/Creatinine Ratio 32.1 (10-20) H 02/04/23 05:31 Glucose 137 mg/dl (70-99(Fasting)) H 02/04/23 05:31 POC Glucose 163 mg/dl (70-99) H 02/04/23 05:40 Lactate 1.7 mmol/L (0.4-2.0) 01/30/23 06:08 Calcium 8.4 mg/dl (8.6-10.3) L 02/04/23 05:31 Phosphorus 3.9 mg/dl (2.5-4.9) D 01/31/23 03:11 Magnesium 2.2 mg/dl (1.7-2.4) 02/04/23 05:31 Total Bilirubin 0.5 mg/dl (0.2-1.0) 02/03/23 05:36 Direct Bilirubin 0.0 mg/dl (0-0.2) 02/03/23 05:36 AST 26 U/L (13-39) 02/03/23 05:36 ALT 16 U/L (7-52) 02/03/23 05:36 Alkaline Phosphatase 113 U/L (34-104) H 02/03/23 05:36 Total Creatine Kinase 12 U/L (26-192) L 01/30/23 04:19 Troponin I High Sens 22.3 pg/ml (0-14) H 01/30/23 17:11 B-Natriuretic Peptide 763 pg/ml (0-100) H 01/31/23 11:11 Total Protein 7.3 gm/dl (6.0-8.3) 02/03/23 05:36 Albumin 2.9 gm/dl (3.4-5.0) L 02/03/23 05:36 Globulin 4.5 gm/dl (2.5-4.0) H 01/28/23 06:14 Albumin/Globulin Ratio 0.4 (0.9-2) L 01/28/23 06:14 Triglycerides 193 mg/dl (0-150) H 01/31/23 03:11 Lipase 190 U/L (11-82) H 02/03/23 05:36 Procalcitonin 0.79 ng/ml (0-0.5) H 01/31/23 11:11 TSH 2.044 uIu/ml (0.300-4.500) 01/30/23 04:20 Random Cortisol 55.24 mcg/dl 01/16/23 00:01 Urine Color Yellow 01/16/23 00:15 Urine Appearance Cloudy (Clear) A 01/16/23 00:15 Urine pH 5.0 (4.5-7.5) 01/16/23 00:15 Ur Specific [place] 1.015 (1.000-1.030) 01/16/23 00:15 Urine Protein 2+ (Negative) H 01/16/23 00:15 Urine Glucose (UA) Negative (Negative) 01/16/23 00:15 Urine Ketones Negative (Negative) 01/16/23 00:15 Urine Blood 2+ (Negative) H 01/16/23 00:15 Urine Nitrite Negative (Negative) 01/16/23 00:15 Urine Bilirubin Negative (Negative) 01/16/23 00:15 Urine Urobilinogen Negative (Negative) 01/16/23 00:15 Ur Leukocyte Esterase 2+ (Negative) H 01/16/23 00:15 Urine WBC (Auto) >30 /hpf (0-5) H 01/16/23 00:15 Urine RBC (Auto) 0-4 /hpf (0-4) 01/16/23 00:15 U Hyaline Cast (Auto) 1-5 /lpf (0-5) 01/16/23 00:15 U Epithel Cells (Auto) >30 /lpf (0-5) H 01/16/23 00:15 Urine Bacteria (Auto) Negative (Negative) 01/16/23 00:15 Ur Renal Epithelial Cell Not Reportable 01/16/23 00:15 Granular Casts 1-5 /lpf (0) H 01/16/23 00:15 Urine Yeast Not Reportable 01/16/23 00:15 Peritoneal Amylase 3724 U/L 01/26/23 11:34 Peritoneal Lipase 44202 U/L 01/26/23 11:34 Nasal Screen MRSA (PCR) Negative (Negative) 01/16/23 Unknown Stl C. diff Tox B Gene Negative Cdiff Gene (Neg) 02/03/23 11:20 Random Vancomycin 20.6 mcg/ml (10-20) H 01/18/23 05:31 SARS-CoV-2 (PCR) NEGATIVE (Negative) 02/02/23 18:45 SARS-CoV-2, RNA, NAAT NEGATIVE (NEGATIVE) 01/15/23 20:08 Blood Type O Positive 01/29/23 08:51 Antibody Screen NEGATIVE 01/29/23 08:51 Crossmatch See Detail 01/29/23 08:51 Impressions Hepatobiliary Scan Nuclear Medicine 01/18/23 06:17 NUCLEAR MEDICINE HEPATOBILIARY SCAN HISTORY: assess for bile leak, CBD obstruction COMPARISON: Abdomen and pelvis CT 01/15/2023. TECHNIQUE: Immediately following the intravenous administration of 5.5 mCi Tc- 99m Choletec, dynamic anterior abdominal imaging was performed. FINDINGS: Uniform hepatic tracer accumulation is shown. Radiotracer is seen accumulating within the gallbladder fossa and draining into the percutaneous catheter within the right upper quadrant. Therefore, this is consistent with a bile leak. The common bile duct was not identified during the examination. Therefore this could be due to preferential flow of bile into the gallbladder fossa or possibly common bile duct obstruction. IMPRESSION: 1. Accumulation of radiotracer within the gallbladder fossa and right upper quadrant drainage catheter consistent with a bile leak. 2. Radiotracer was not identified within the common bile duct which could be due to preferential flow of bile into the gallbladder fossa or possibly a common bile duct obstruction. ACT 112: Negative or not required by law. Electronically signed by: Dannie Chowdhury M.D. 01/18/2023 11:[address] 01/26/23 07:20 CT SCAN OF THE ABDOMEN WITHOUT IV CONTRAST CLINICAL HISTORY: Intra-abdominal fluid collections. COMPARISON STUDY: Abdominal CT dated 01/23/2023. TECHNIQUE: CT scan of the abdomen is performed from the lung bases to the pelvic inlet. Images are reviewed in the axial, sagittal, and coronal planes. IV contrast was not administered for this examination. Note that the examination was performed in significantly suboptimal fashion without oral and IV contrast. A dose lowering technique was utilized adhering to the principles of ALARA. CT DOSE: 645.56 mGy.cm FINDINGS: Lung bases: The heart is normal in size and without pericardial effusion. There are coronary artery calcifications. There is a moderate left pleural effusion with left basilar consolidation. There is trace right pleural effusion with dependent atelectasis. Groundglass opacities are noted in the lingula. Liver: The unenhanced liver is normal in size, contour, and attenuation. There i s no intrahepatic biliary ductal dilatation. Pneumobilia is observed. A loculated fluid collection around the lateral segment of the left lobe has increased in size from 01/23/2023. This now measures 11 x 10.5 cm (previously measured 9 x 7.5 cm). Gallbladder: The gallbladder is surgically absent. Common bile duct stents are in place. Spleen: The spleen is irregular and diminutive suggesting splenic injury. Again seen is a perisplenic fluid collection with hyperdense foci indicating hemorrhage. The perisplenic fluid collection has decreased in size from 01/23/2023, now measuring approximately 14 x 6.5 cm (previously measured 15 x 8.5 cm). Pancreas: The pancreas is edematous with surrounding inflammation. Inflammation appears modestly improved from 01/23/2023. There is a fluid collection in the region of the pancreatic neck seen on image #179. This measures 3.1 x 2.4 cm and could represent focal necrosis versus pseudocyst. The distal pancreas appears heterogeneous. The duct is grossly unremarkable as seen on this unenhanced examination. Adrenal glands: Unremarkable. Kidneys: The unenhanced kidneys demonstrate mild cortical atrophy and are without hydronephrosis. There are at least 5 nonobstructing left renal calculi which measure up to 12 mm. There are at least 7 nonobstructing right renal calculi which measure up to 13 mm. No stones are seen in the proximal ureters. There is no evidence of contour deforming renal mass lesion. Abdominal vasculature: The abdominal aorta is normal in course and caliber noting mild atherosclerotic calcification. Bowel: Imaged portions of the bowel show no evidence of obstruction. Enteric contrast is noted in the right colon. Peritoneum: A percutaneous catheter from a right lower quadrant approach is terminates just below the gallbladder fossa. There is an air contrast level in the gallbladder fossa. This is likely related to recent ERCP and indicates cystic duct leak. There is a small volume of partially loculated abdominal ascites. No intraperitoneal free air is identified. See above under liver and spleen for discussion of surrounding fluid collection. Lymphadenopathy: None. Skeletal structures: The skeletal structures are osteopenic. No lytic or blastic lesions are seen. Soft tissues: There is body wall edema. IMPRESSION: 1. The spleen is irregular and diminutive suggesting splenic injury. A perisplenic fluid collection/hematoma has decreased in size from 01/23/2023. 2. An air/contrast level in the gallbladder fossa is likely related to cystic duct leak when compared to the recent ERCP images. 3. A loculated fluid collection around the lateral segment of the left lobe of the liver has increased in size from 01/23/2023. 4. Abdominal ascites has modestly increased from 01/23/2023. 5. Again seen is evidence of acute pancreatitis. Inflammatory change has modestly improved from previous. 6. A fluid collection in the pancreatic neck could represent focal necrosis or developing pseudocyst. 7. Common bile duct stents are in place. Pneumobilia suggests patency. 8. Moderate left and trace right pleural effusions with dependent consolidation. 9. Bilateral nephrolithiasis. 10. Additional findings as above. ACT 112: Negative or not required by law. Electronically signed by: Chidi Garay M.D. 01/26/2023 8:23 AM Drainage Catheter Insertion 01/26/23 10:23 ULTRASOUND-GUIDED PERIHEPATIC FLUID COLLECTION DRAIN PLACEMENT CLINICAL HISTORY: Perihepatic complex fluid collection PROCEDURE: Procedure and risks were explained. Informed consent was obtained. A final timeout was completed. The anterior abdomen was prepped and draped in sterile fashion. 1% buffered lidocaine was utilized for skin anesthesia. Utilizing ultrasound guidance, an 18-gauge 10 cm Chiba needle was advanced into the perihepatic complex fluid collection. A 0.035 Amplatz wire was introduced through the needle and exchanged for a 10 [place] skater pigtail catheter. Approximately 200 mL of brownish fluid was removed at the time of the procedure with a portion sent to the lab for analysis. The pigtail catheter was sutured to the skin with 2-0 silk and placed to suction bag drainage. The patient tolerated the procedure well. Vital signs we monitored on the floor. IMPRESSION: Ultrasound-guided perihepatic fluid collection drain placement as above. Performed, dictated, and signed by Xu Manrique PA-C; to be co-signed by Dr. Chidi Garay. Electronically signed by: Chidi Garay M.D. 01/26/2023 1:01 PM Pelvis Ultrasound 01/29/23 09:54 US pelvic complete HISTORY: 72 years-old Female Vaginal bleeding acute vaginal bleeding COMPARISON: 01/23/2023 CT examination TECHNIQUE: Multiple real-time sonographic images of the deep pelvic structures were obtained assessing grayscale appearance, and color-flow FINDINGS: The anteflexed uterus measures 8.7 x 3.9 x 4.9 cm. Endometrium measures 9 mm in thickness. No myometrial or endometrial mass identified. Trace fluid is noted within the endometrial cavity. There is a 7 mm subendometrial cyst involving the mid uterus. Nonvisualization of the ovaries secondary to extreme bowel gas and patient body habitus. Small amount of pelvic ascites again noted. IMPRESSION: 1. Pathologic thickening of the postmenopausal endometrium. Correlation with tissue sampling recommended. 2. Pelvic ascites again noted. 3. Nonvisualization of the ovaries. ACT 112: Negative or not required by law. The above report was generated using voice recognition software. It may contain grammatical, syntax or spelling errors. Electronically signed by: Nick Stone M.D. 01/29/2023 11:[address] 01/31/23 15:20 CT OF THE HEAD WITHOUT CONTRAST CLINICAL HISTORY: Altered mental status. COMPARISON STUDY: No previous studies for comparison. CT DOSE: 537.48 mGy.cm TECHNIQUE: Helical axial images of the head were obtained without IV contrast. Automated exposure control was utilized for the study. A dose lowering technique was utilized adhering to the principles of ALARA. FINDINGS: No acute intracranial hemorrhage, midline shift or mass effect is present. Ventricular system is unremarkable. There are multiple periventricular hypodense foci, including a 2 cm focus within the left frontal lobe on axial image 19 of 20. Basal cisterns are patent. There are no extra axial collections. There is moderate atrophy. No acute calvarial fractures are identified. Visualized portions of the sinuses and mastoid air cells are clear. IMPRESSION: 1. No acute intracranial hemorrhage. No evidence for acute territorial infarct. 2. Multiple periventricular hypodense foci, the largest of which is a 2 cm left frontal lobe focus. These may reflect small vessel disease. However, age indeterminate infarcts, likely subacute to chronic, could appear similar. ACT 112: Negative or not required by law. Electronically signed by: Brent Estrada M.D. 01/31/2023 4:11 PM KUB X-Ray 02/01/23 11:31 KUB HISTORY: Feeding tube placement check COMPARISON: Abdominal CT 01/26/2023. FINDINGS: The tip of the feeding tube terminates at the gastric antrum/pylorus. Common bile duct stents are noted. There is a percutaneous catheter seen within the right upper quadrant. Pneumobilia is noted. No renal calculi. No ureteral calculi. No pneumoperitoneum or pneumatosis. IMPRESSION: The feeding tube terminates at the gastric antrum/pylorus. ACT 112: Negative or not required by law. Electronically signed by: Dannie Chowdhury M.D. 02/01/2023 11:55 AM Chest X-Ray 02/02/23 07:00 XR chest 1V portable HISTORY: Dyspnea. COMPARISON: Chest 01/30/2023. FINDINGS: No pneumothorax. The cardiac silhouette remains mildly enlarged. Patchy bilateral airspace opacities and interstitial thickening has significantly improved in the interval. This may represent resolving pulmonary edema or a pneumonitis. Small left pleural effusion has also improved. There are few left basilar linear densities remaining. The feeding tube terminates below the diaphragm. The tip is not included on this study. There are common bile duct stents and a percutaneous catheter again noted within the right upper quadrant. IMPRESSION: 1. Significantly improved aeration within the lungs. 2. A small left pleural effusion has also improved. 3. A feeding tube terminates below the diaphragm. ACT 112: Negative or not required by law. Electronically signed by: Dannie Chowdhury M.D. 02/02/2023 9:18 AM Abdomen/Pelvis CT 02/03/23 21:05 Exam(s): CT ABDOMEN + PELVIS Without Contrast EXAM: CT Abdomen and Pelvis Without Intravenous Contrast CLINICAL HISTORY: Reason for exam: worsening abd pain. TECHNIQUE: Axial computed tomography images of the abdomen and pelvis without intravenous contrast. CTDI is 25.07 mGy and DLP is 1268.51 mGy-cm. Automated exposure control was utilized for the study. A dose lowering technique was utilized adhering to the principles of ALARA. COMPARISON: CT abdomen pelvis 02/02/2023 FINDINGS: ABDOMEN: Liver: Unremarkable. Gallbladder and bile ducts: Biliary stents in place. Gas fills the gallbladder and pneumobilia. Pancreas: Redemonstrated findings of pancreatitis. Small amount of hemorrhage. Potential necrosis in the head. Spleen: Unremarkable. Adrenals: Unremarkable. Kidneys and ureters: Nonobstructing stones in the kidneys. Stomach and bowel: Unremarkable. PELVIS: Appendix: No findings to suggest acute appendicitis. Bladder: Unremarkable. Reproductive: Unremarkable as visualized. ABDOMEN and PELVIS: Intraperitoneal space: Small amount of ascites unchanged. No free air. Bones/joints: No acute fracture. Soft tissues: Multiple pseudocysts within the left upper quadrant and tracking along the left ventral abdominal wall as well as around the spleen appear unchanged. Vasculature: Unremarkable. Lymph nodes: Unremarkable. Tubes, lines and devices: There is a pigtail catheter terminating anterior to the left hepatic lobe. No significant fluid collection here. Correlate with drain output. IMPRESSION: 1. Redemonstrated findings of pancreatitis. Small amount of hemorrhage. Potential necrosis in the head. 2. Multiple pseudocysts within the left upper quadrant and tracking along the left ventral abdominal wall as well as around the spleen appear unchanged. 3. Biliary stents in place. Gas fills the gallbladder and pneumobilia. 4. Small amount of ascites unchanged. Electronically signed by: Darryl Jenkins MD 02/04/23 04:05 AM Procedures Performed Operation Date: 01/24/23 07:00 Actual Procedures p Endoscopic Retrograde Cholangiopancreato - Rachel Mcneill MD p Endoscopic Ultrasonography Upper - Rachel Mcneill MD s Esophagogastroduodenoscopy - Rachel Mcneill MD Ordered Studies 01/15/23 17:06 CT abd pelvis wo con Stat 01/19/23 [place] ERCP biliary ductal Routine 01/21/23 10:24 CT abd pelvis wo con Urgent 01/23/23 07:20 CT Abd and Pelvis [CT abd pelvis wo con] Urgent 01/24/23 [place] ERCP biliary ductal Routine 01/24/23 15:20 US upper EUS PACS images Routine 01/26/23 07:20 CT abdomen wo con Routine 01/26/23 10:23 IR AD peritoneal/retro w/gdnce Urgent 01/29/23 09:54 US pelvic complete Urgent 01/31/23 15:20 CT head/brain wo con Urgent 02/02/23 14:29 CT Abd and Pelvis [CT abd pelvis wo con] Urgent 02/03/23 21:05 CT abd pelvis wo con Urgent Hospital Course (1) Septic shock: Patient was recently hospitalized for about a month during which she was managed for acute pancreatitis, acute cholangitis, septic shock, acute renal failure requiring dialysis briefly, paroxysmal A-fib. Underwent ERCP on 12/10 with removal of stones from the bile duct. Underwent lap adele with extensive lysis of adhesions on 12/10 by general surgery.Was discharged to [facility] facility and represented with abdominal and back pain. Septic Shock Was on Levophed which was weaned off on 01/17. Sources of sepsis: include intra-abdominal infection, surgical subhepatic drain in situ, recent UTI. Acute on chronic pancreatitis Intra-abdominal fluid collection-biliary leak, necrotic pancreatitis Perisplenic Hemorrhage --CT ABD: Redemonstration of the severe pancreatitis. This is similar to the prior study. Postoperative changes consistent with a recent cholecystectomy with a small amount of nonspecific perihepatic fluid and a small amount of pneumoperitoneum remaining. A right subhepatic percutaneous drainage catheter remains unchanged in position. The common bile duct stent appears in good position. There is associated pneumobilia. Small bilateral pleural effusions persist. No change in the patchy groundglass airspace opacities within the lungs. This may represent an atypical/viral pneumonitis. Fluid-filled nondilated loops of large and small bowel which may represent a gastroenteritis/diarrheal illness. Bilateral nephrolithiasis. No ureteral stones. No hydronephrosis. --Repeat CT:Findings consistent with severe acute pancreatitis. 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 Perisplenic hemorrhage, stable to slightly increased since prior CT. The perisplenic fluid collection has increased in size since prior CT. Irregularity of the spleen consistent with splenic injury. Increase in size of perihepatic and perigastric fluid collections with mass effect upon the stomach. The perihepatic fluid collection could be related to a bile leak or acute pancreatitis. Increase in gas within the cholecystectomy bed. This is nonspecific given indwelling surgical drain and common bile duct stent however a persistent biliary leak cannot be excluded. No significant change in a moderate left pleural effusion with left lower lobe atelectasis. Slight increase in small to moderate pelvic ascites. --EUS/ERCP 01/24 w/ evidence of ascites and evidence of persistent leak from remnant gallbladder s/p stent exchange and fibrin glue injection to the cystic duct --S/P ultrasound guided perihepatic fluid aspiration and placement of drain --Abd Fluid Cx: Enterococcus faecium -- Repeat abdominal fluid culture no growth --Blood cultures negative --Repeat CT 02/02/23:There is slight increase in size and increased density within the peripancreatic fluid collections compared to the prior study. This suggests blood products in the setting of hemorrhagic pancreatitis. Inflammatory change/edema adjacent to the hepatic flexure of the colon has slightly improved. The gallbladder is surgically absent. Gas and fluid within the gallbladder fossa is again noted. This suggests a residual cystic duct leak. The right pleural effusion has resolved. A small left pleural effusion has decreased in size. There are new patchy groundglass densities within the lung bases. This could represent congestive change or an atypical pneumonitis. The feeding tube terminates at the pylorus. 7. The left perihepatic/subcapsular fluid collection has significantly decreased in size status post percutaneous drainage. The catheter remains in good position. There is only a small amount of loculated fluid remaining within the left perihepatic location. The moderate sized perisplenic hematoma/fluid collection is stable to slightly decreased in size. The multiple loculated fluid collections within the left anterior abdomen have slightly increased in size with the dominant fluid collection measuring 7.0 x 5.6 cm. Small amount of pelvic fluid which is not completely loculated at this time. Bilateral nephrolithiasis. Appreciate ID, surgery, GI, IR input On IV daptomycin, Zosyn>> IV daptomycin and ertapenem: Discussed with ID today: Advised to continue current antibiotics IV PPN held due to volume overload status NG tube feeds held given worsening abd pain/peripancreatic leak Continue drain, until its approximately 10 cc or less per day --Repeat CT abdomen suggestive of hemorrhagic pancreatitis, increasing abdominal fluid collections--- GI, surgery suggested transfer to tertiary care facility for further management. May need tertiary center for advanced IR/pancreaticobiliary intervention. Discussed with [facility] center--awaiting acceptance (Discussed with Dr. Ismael Zavala - GI, Dr. Orlando Santana- IR at [facility]) Accepting Physician:Dr. Dakota Puente at [facility]. . --CT ABD: Redemonstrated findings of pancreatitis. Small amount of hemorrhage. Potential necrosis in the head. Multiple pseudocysts within the left upper quadrant and tracking along the left ventral abdominal wall as well as around the spleen appear unchanged. Biliary stents in place. Gas fills the gallbladder and pneumobilia. Small amount of ascites unchanged. --Leukocytosis trending down Plan to discharge to tertiary care facility today Acute respiratory failure with hypoxia Likely multifactorial secondary to A-fib RVR, Possible aspiration Left-sided pleural effusion/atelectasis --CXR:Multifocal airspace consolidation is unchanged from today's earlier examination. This could represent multifocal pneumonia and/or pulmonary edema. Clinical correlation would be required and radiographic follow-up to resolution is recommended. Left pleural effusion. -- Procalcitonin 0.79 Continue antibiotics as above Continue supplemental oxygen as needed Appreciate pulmonary input Aspiration precautions Continue IV diuresis per nephrology BiPAP as needed and at bedtime Mild hyperkalemia--Resolved Paroxysmal atrial fibrillation with RVR Intermittent bradycardia On IV heparin for anticoagulation Continue IV metoprolol Resumed oral amiodarone 200 mg daily Currently in sinus Acute metabolic encephalopathy --CT Head:1. No acute intracranial hemorrhage. No evidence for acute territorial infarct. Multiple periventricular hypodense foci, the largest of which is a 2 cm left frontal lobe focus. These may reflect small vessel disease. However, age indeterminate infarcts, likely subacute to chronic, could appear similar. -- Reorient frequently to minimize delirium Monitor Acute blood loss anemia Likely multifactorial: Vaginal Bleeding/perisplenic hemorrhage S/P PRBCs Monitor H&H and transfuse as needed Postmenopausal vaginal bleeding Endometrial thickening --Pelvic USD:Pathologic thickening of the postmenopausal endometrium. Correlation with tissue sampling recommended. Pelvic ascites again noted. Nonvisualization of the ovaries. --Appreciate RECTANGULAR TANK COOPER Input Needs outpatient D&C Anticoagulation can be restarted per OBGYN As per Prior Provider Facial Rash Likely due to rosacea Improved Hypertension Continue current medications Monitor (2) Hyperthyroidism: As per prior provider Patient on methimazole which is known to have a side effect of pancreatitis. However, will cont for now as this pancreatitis is improved clinically and there are more likely causes/contributing factors. (3) Pleural effusion, left: (4) Acute renal failure: Nonoliguric ischemic ATN Volume overload status Intermittent hemodialysis last admission Cr 1.8 on discharge last admission Continue IV Lasix Monitor electrolytes and replace as needed Monitor renal function Appreciate nephrology input Cr 1.3 today (5) Acute pancreatitis: Bedsores Has bilateral stasis to sacral decubitus Appreciate wound care management Plan Other significant medical conditions Depression Multiple sclerosis Continue home medications as able DVT Px Eliquis initially held due to splenic hemorrhage IV heparin--Held Code Status Full code for now Consulted Palliative to address goals of care Disposition [facility] [facility] today Total Time Total Time Spent Total Time Spent (In Minutes): 67 Discharge Plan Discharge Items Patient Disposition: Transfer Acute Care Hospital Reason For Visit: SEVERE SEPSIS Discharge Diagnosis: Hemorrhagic pancreatitis Biliary leak Peripancreatic fluid collection/pseudocyst Atypical pneumonitis Perihepatic fluid collection Loculated left anterior abdominal fluid collections Perisplenic hematoma Nonoliguric ischemic ATN Septic Shock--Resolved Acute respiratory failure with hypoxia--Resolved Paroxysmal atrial fibrillation with RVR Acute metabolic encephalopathy--Improved Activity: Per Instructions section Exercise/Sports: Wait until after follow-up appointment Non-emergency contact: Primary Care Provider, Surgeon, Specialist and Telephonic Rn Call non-emergency contact if: you have any medication questions, your symptoms worsen, your pain is concerning for you and you have a fever Follow-up/Referrals: Valdez Whitlock MD [Primary Care Provider] - Dietitian Info: NPO for now Diet: Other - See Diet Comment Addtl Attending Provider Instructions: Follow up with Dr. Ismael Zavala - GI, Dr. Orlando Santana- IR and Accepting Physician:Dr. Dakota Puente at [facility]. For further management --- Please review current inpatient hospital medications as below. --Currently IV Heparin on hold since 02/03/23 2100 Addtl Controlled Area Checker Provider Instructions: Date of Service: February 04, 2023 Current Inpatient Medications Acetaminophen (Acetaminophen 325 Mg Tab) 650 mg PO Q6 PRN PRN Reason: Fever Or MILD Pain Stop: 02/14/23 23:34 Last Admin: 01/28/23 21:16 Dose: 650 mg Amiodarone HCl (Amiodarone 200 Mg Tab) 200 mg PO QAM [facility] Stop: 03/02/23 08:59 Last Admin: 01/31/23 08:12 Dose: 200 mg Amiodarone HCl (Amiodarone 200 Mg Tab) 200 mg PO QAM [facility] Stop: 03/05/23 08:59 Last Admin: 02/04/23 09:42 Dose: 200 mg Apixaban (Apixaban 5 Mg Tablet) 5 mg PO BID [facility] Stop: 02/15/23 08:59 Last Admin: 01/31/23 08:12 Dose: 5 mg Dextrose (Dextrose 50% 50 Ml Syringe) 25 - 50 ml IV UD PRN; Protocol PRN Reason: Hypoglycemia Protocol Stop: 02/15/23 08:04 Enteral Nutritional Formula (Peptamen 1.5 Mark 1,000 Ml Bag) 0 ml GT UD [facility]; Protocol Stop: 03/03/23 12:44 Furosemide (Furosemide 40 Mg/4 Ml Vial) 30 mg IV BID17 [facility] Stop: 03/04/23 16:59 Last Admin: 02/04/23 09:43 Dose: 30 mg Glucagon (Glucagon For Inj 1 Mg Vial) 1 mg SQ UD PRN; Protocol PRN Reason: Hypoglycemia Protocol Stop: 02/15/23 08:04 Glucose (Glucose 40% Gel 15 Gm Tube) 15 - 30 gm PO UD PRN; Protocol PRN Reason: Hypoglycemia Protocol Stop: 02/15/23 08:04 Glucose (Glucose 10 Tab/Tube) 4 - 8 tab PO UD PRN; Protocol PRN Reason: Hypoglycemia Treatment Stop: 02/15/23 08:04 Hydromorphone HCl (Hydromorphone Inj 0.5 Mg/0.5 Ml Syr) 0.25 mg IV Q6H PRN PRN Reason: Pain Stop: 02/18/23 02:22 Last Admin: 02/04/23 07:28 Dose: 0.25 mg Daptomycin 700 mg/ Syringe 14 mls @ 4.25 mls/min IV Q24H [facility]; Protocol Stop: 02/06/23 15:59 Last Admin: 02/03/23 16:25 Dose: 4.25 mls/min Ertapenem 1,000 mg/ Syringe 10 mls @ 2 mls/min IV Q24H [facility] Stop: 02/06/23 22:59 Last Admin: 02/04/23 00:05 Dose: 2 mls/min Heparin Sodium/Dextrose (Heparin Sodium/Dextrose) 25,000 units in 500 mls @ 0 mls/hr IV .Q0M [facility]; Protocol Stop: 03/02/23 20:14 Last Titration: 02/03/23 21:00 Dose: 0 units/hr, 0 mls/hr Acetaminophen (Ofirmev) 1,000 mg in 100 mls @ 400 mls/hr IV Q8H PRN PRN Reason: Pain or Fever Stop: 02/07/23 08:02 Insulin Aspart (Insulin Aspart Per Unit Charge) 0 units SC Q6 [facility] Stop: 03/01/23 16:29 Last Admin: 02/04/23 05:43 Dose: Not Given Magnesium Oxide (Magnesium Oxide 400 Mg Tab) 400 mg PO QAM [facility] Stop: 02/15/23 08:59 Last Admin: 02/04/23 09:45 Dose: 400 mg Methimazole (Methimazole 5 Mg Tablet) 5 mg PO DAILY [facility] Stop: 02/15/23 08:59 Last Admin: 02/04/23 09:43 Dose: 5 mg Metoprolol Tartrate (Metoprolol Tartrate 1 Mg/Ml Vial) 2.5 mg IV Q6 [facility] Stop: 03/04/23 17:59 Last Admin: 02/04/23 05:45 Dose: 2.5 mg Miscellaneous (Carbohydrates For Hypoglycemia ) 15 - 30 gm PO UD PRN PRN Reason: Hypoglycemia Protocol Stop: 02/15/23 08:04 Potassium Chloride (Potassium Chloride Crtab 20 Meq Tabcr) 20 meq PO BID [facility] Stop: 03/01/23 08:59 Last Admin: 01/31/23 08:12 Dose: 20 meq Sertraline HCl (Sertraline Hcl 50 Mg Tablet) 50 mg PO QAM [facility] Stop: 02/15/23 08:59 Last Admin: 02/04/23 09:43 Dose: 50 mg Sterile Water (Tube Feeding Water Flush) 90 ml GT Q4H [facility] Stop: 03/03/23 12:44 Last Admin: 02/02/23 13:18 Dose: 90 ml Pending Studies at Discharge: No Stand-Alone Forms: My [facility] Skilled Items Patient informed of condition?: Yes DNR: No Discharge Level of Care: Other Communicable Disease: No Discharge Prognosis: Deteriorating Lines: Peripheral IV Urinary Catheter: Yes Medications and DC Order Prescriptions: Continued magnesium oxide 400 mg (241.3 mg magnesium) tablet 400 mg PO QAM amiodarone 200 mg tablet 200 mg PO QAM metoprolol succinate 50 mg tablet extended release 24 hr 50 mg PO [facility] sennosides-docusate sodium [Senokot-S] 8.6-50 mg tablet 1 tab PO [facility] sertraline 50 mg tablet 50 mg PO QAM acetaminophen 325 mg Tablet 650 mg PO Q6 PRN (Reason: Fever Or Pain) Rx Instructions: use for temp>100 or mild pain oxycodone 5 mg Tablet 10 mg PO Q6 PRN (Reason: pain,severe) oxycodone 5 mg Tablet 5 mg PO Q6 PRN (Reason: pain,moderate) diclofenac sodium [Voltaren] 1 % Gel 2 g TOPICAL QID Rx Instructions: apply to left shoulder menthol-zinc oxide [Calmoseptine] 0.44-20.6 % Ointment 1 applic TOPICAL TID Rx Instructions: apply to buttocks Eliquis 5 mg Tablet 5 mg PO BID Qty: 60 0RF methimazole 5 mg tablet 5 mg PO DAILY Qty: 30 0RF Discontinued levofloxacin 750 mg tablet 750 mg PO Q48H Qty: 3 0RF Rx Instructions: Start on 01/14/23 Discharge Orders: Discharge Order (Routine); Ordered 02/04/23 Ordered By: Leandro Lopez Admission Data Admit Date/Time: 01/15/23 21:56 Attending Provider: Leandro Lopez Admit Provider: Kory Gordillo Primary Care Provider: Valdez Whitlock Other Providers: [facility] ; Nidia Page ; Shubham Demarco at [facility] ; Ganga Koehler ; Kory Gordillo ; Aram Reyes ; Johana Mcclellan ; You Jenkins ; Nathaly Dexter ; Taty Reis ; Hazel Dupree ; Malka Vazquez ; Yobany Del Rosario ; Jean Garcia ; Dwain Murcia ; Gretel Abdullahi ; Compa Bowers ; Emerita Smallwood ; Shayla Stephens ; Lissy Malone ; Yeny Banks ; Rachel Mcneill ; Refugio King ; Rui Irby ; Mago Ledesma ; Gabe Stoll Jr ; Radha Barnett ; Kellen Spicer ; Adrian Hensley ; Alida Barth ; Hong Huertas I. ; Ramses Mcmillan II ; Genevieve Ga ; Mario Philip ; Mark Sutton ; Aquilino Dinero ; Orlando Edmonds ; Anjali Nunez ; Josie Malik ; Travis Pruitt ; Sean Varela ; Connor Medellin ; Tonny Roberson ; Lucero Atkinson ; Nidia Patterson V. ; Charlene Pardo ; Ludy Vigil ; Josette Shah ; Sheree Goode ; Brunilda Quiles ; Juan Dsouza ; Chitra Chavez ; Tomi Cerna ; Vera Pulido ; Paty Schneider
== END 2023-02-04 12:49 | disposition short-term general hospital (02) | DRG 871 ==
LOC: ED 16:31 → SUATTDRO 21:56 → 1E 21:56 → 2E 01-18 16:36